=== PATIENT | female | born 1950 | race Caucasian/White ===

== ENCOUNTER 2022-12-17 07:43 | Outpatient (OUT) | payer MEDICARE, SELFPAY ==
[2022-12-17 08:16] LABS: Basophils Absolute Auto 0.1 10^3/uL (0.0-0.1); Basophils Percent Auto 2.2 % (0.2-2.0); Bilirubin Urine LARGE (NEGATIVE); Blood Urine NEGATIVE (NEGATIVE); Clarity Urine CLEAR (CLEAR); Color Urine LT. YELLOW (YELLOW); Eosinophils Absolute Auto 0.1 10^3/uL (0.0-0.7); Eosinophils Percent Auto 2.6 % (0.9-7.0); Glucose Urine UA NEGATIVE (NEGATIVE); Hematocrit 40.5 % (36.0-48.0); Hemoglobin 13.2 g/dL (12.0-16.0); Immature Granulocytes Abs Auto 0.02 10^3/uL (0.00-0.03); Immature Granulocytes Pct Auto 0.4 % (0.0-0.5); Ketones Urine NEGATIVE (NEGATIVE); Leukocyte Esterase Urine LARGE (NEGATIVE); Lymphocytes Absolute Auto 1.1 10^3/uL (1.2-3.8); Lymphocytes Percent Auto 20.9 % (20.5-60.0); Mean Corpuscular HGB Conc 32.6 g/dL (29.9-35.2); Mean Corpuscular Hemoglobin 30.8 pg (26.7-34.0); Mean Corpuscular Volume 94.6 fL (81.0-99.0); Mean Platelet Volume 9.3 fL (9.5-13.5); Monocytes Absolute Auto 0.5 10^3/uL (0.3-0.8); Monocytes Percent Auto 10.1 % (1.7-12.0); Neutrophils Absolute Auto 3.2 10^3/uL (1.4-6.5); Neutrophils Percent Auto 63.8 % (43.0-75.0); Nitrite Urine NEGATIVE (NEGATIVE); Platelet Count 238 10^3/uL (150-450); Protein Urine TRACE mg/dL (NEG/TRACE); Red Blood Count 4.28 10^6/uL (4.20-5.40); Red Cell Distribution Width 12.9 % (11.0-15.0); Urobilinogen Urine 0.2 EU/dL (0.2-1.0)
[2022-12-17 08:19] LABS: Erythrocyte Sedimentation Rate 13 mm/hr (<=30)
[2022-12-17 08:33] LABS: Bacteria Urine SMALL #/HPF (NONE SEEN); Cast Seen? NONE SEEN #/LPF (NONE SEEN); Crystals Seen? None Seen #/HPF (None Seen); Mucus Urine NONE SEEN (NONE SEEN); RBC Urine 0-2 #/HPF (0-2); Squamous Epithelial Cell Urine FEW #/LPF (NONE/RARE); WBC Urine 20-50 #/HPF (NONE SEEN)
[2022-12-17 09:29] LABS: Alanine Aminotransferase 29 U/L (14-59); Albumin Level 3.7 g/dL (3.4-5.0); Alkaline Phosphatase 47 U/L (46-116); Anion Gap 10.6; Aspartate Amino Transferase 16 U/L (15-37); BUN Creatinine Ratio 15.9; Bilirubin Total 0.4 mg/dL (0.2-1.0); Calcium 8.8 mg/dL (8.5-10.1); Carbon Dioxide 31.5 mmol/L (21.0-32.0); Chloride 100 mmol/L (98-107); Estimated GFR (African America >60 (>=60); Estimated GFR (Non-African Ame >60 (>=60); Globulin 3.7 g/dL; Glucose 84 mg/dL (74-106); Magnesium 2.3 mg/dL (1.8-2.4); Phosphorus 3.9 mg/dL (2.6-4.7); Potassium 4.1 mmol/L (3.5-5.1); Sodium 138 mmol/L (136-145); Total Protein 7.4 g/dL (6.4-8.2)
[2022-12-18 05:07] LABS: Complement C3, Serum 129 mg/dL (82-167); Complement C4, Serum 23 mg/dL (12-38)
[2022-12-18 15:08] LABS: Complement, Total (CH50) >60 U/mL (>41)
== END 2022-12-17 07:44 ==
LOC: LAB 07:47
PROVIDERS: PCP Family Medicine; Visit Provider Internal Medicine Rheumatology
DX: M35.1 Other overlap syndromes (principal); M81.0 Age-related osteoporosis without current pathological fracture; Z79.899 Other long term (current) drug therapy
CPT/HCPCS: 36415; 80053; 81001; 83735; 84100; 85025; 85652; 86160; 86162

== ENCOUNTER 2023-04-27 08:02 | Outpatient (OUT) | payer MEDICARE, SELFPAY ==
[2023-04-27 08:31] LABS: Basophils Absolute Auto 0.1 10^3/uL (0.0-0.1); Basophils Percent Auto 1.9 % (0.2-2.0); Eosinophils Absolute Auto 0.1 10^3/uL (0.0-0.7); Eosinophils Percent Auto 1.9 % (0.9-7.0); Hematocrit 39.3 % (36.0-48.0); Hemoglobin 12.7 g/dL (12.0-16.0); Immature Granulocytes Abs Auto 0.02 10^3/uL (0.00-0.03); Immature Granulocytes Pct Auto 0.4 % (0.0-0.5); Lymphocytes Absolute Auto 0.9 10^3/uL (1.2-3.8); Lymphocytes Percent Auto 16.9 % (20.5-60.0); Mean Corpuscular HGB Conc 32.3 g/dL (29.9-35.2); Mean Corpuscular Hemoglobin 31.8 pg (26.7-34.0); Mean Corpuscular Volume 98.5 fL (81.0-99.0); Mean Platelet Volume 9.4 fL (9.5-13.5); Monocytes Absolute Auto 0.5 10^3/uL (0.3-0.8); Monocytes Percent Auto 9.7 % (1.7-12.0); Neutrophils Absolute Auto 3.7 10^3/uL (1.4-6.5); Neutrophils Percent Auto 69.2 % (43.0-75.0); Platelet Count 185 10^3/uL (150-450); Red Blood Count 3.99 10^6/uL (4.20-5.40); White Blood Count 5.4 10^3/uL (4.0-11.0)
[2023-04-27 08:34] LABS: Bilirubin Urine MODERATE (NEGATIVE); Blood Urine NEGATIVE (NEGATIVE); Clarity Urine CLEAR (CLEAR); Color Urine LT. YELLOW (YELLOW); Glucose Urine UA NEGATIVE (NEGATIVE); Ketones Urine NEGATIVE (NEGATIVE); Leukocyte Esterase Urine LARGE (NEGATIVE); Nitrite Urine NEGATIVE (NEGATIVE); Protein Urine NEGATIVE (NEG/TRACE); Specific Gravity Urine 1.015 (1.005-1.025); Urobilinogen Urine 0.2 EU/dL (0.2-1.0)
[2023-04-27 08:49] LABS: Bacteria Urine SMALL #/HPF (NONE SEEN); Cast Seen? NONE SEEN #/LPF (NONE SEEN); Crystals Seen? None Seen #/HPF (None Seen); Mucus Urine TRACE (NONE SEEN); Squamous Epithelial Cell Urine MODERATE #/LPF (NONE/RARE); WBC Urine 20-50 #/HPF (NONE SEEN)
[2023-04-27 08:50] LABS: Urine Culture Indicated ALREADY ORDERED
[2023-04-27 09:11] LABS: Alanine Aminotransferase 22 U/L (14-59); Albumin Globulin Ratio 1.2; Albumin Level 3.8 g/dL (3.4-5.0); Alkaline Phosphatase 36 U/L (46-116); Anion Gap 13.8; Aspartate Amino Transferase 21 U/L (15-37); BUN Creatinine Ratio 14.3; Bilirubin Total 0.4 mg/dL (0.2-1.0); Calcium 8.7 mg/dL (8.5-10.1); Carbon Dioxide 27.5 mmol/L (21.0-32.0); Chloride 104 mmol/L (98-107); Chol HDL Ratio 2.3; Cholesterol 163 mg/dL (<=200); Estimated GFR (African America >60 (>=60); Estimated GFR (Non-African Ame >60 (>=60); Globulin 3.2 g/dL; Glucose 82 mg/dL (74-106); HDL Cholesterol 71 mg/dL (40-60); Potassium 4.3 mmol/L (3.5-5.1); Sodium 141 mmol/L (136-145); Thyroid Stimulating Hormone 2.224 uIU/mL (0.358-3.740); Triglycerides 67 mg/dL (<=150); VLDL CHOLESTEROL 13.4 mg/dL
== END 2023-04-27 08:03 | disposition home or self-care (01) ==
LOC: LAB 08:04
PROVIDERS: PCP Family Medicine; Visit Provider Family Medicine
DX: E78.5 Hyperlipidemia, unspecified (principal); Z79.899 Other long term (current) drug therapy; R63.5 Abnormal weight gain; R31.9 Hematuria, unspecified
CPT/HCPCS: 36415; 80053; 80061; 81001; 84443; 85025; 87086

== ENCOUNTER 2023-05-05 10:05 | Outpatient (OUT) | payer MEDICARE, SELFPAY | END 2023-05-05 10:06 | disposition home or self-care (01) | PROVIDERS: PCP Family Medicine; Visit Provider Family Medicine | DX: D75.89 Other specified diseases of blood and blood-forming organs (principal) | CPT/HCPCS: 36415; 82607; 82746 ==

== ENCOUNTER 2023-05-12 09:28 | Outpatient (OUT) | payer MEDICARE, SELFPAY ==
--- NOTE | 2023-05-12 09:33 | US_ITS ---
[address] [address] Patient Name: GENNA GALVAN MRN: [id number] date: 1950 Sex: F Assigned Patient Location: Current Patient Location: Accession/Order Number: [id number] Exam Date: 05/12/2023 10:00 Report Date: 05/12/2023 10:53 At the request of: CASANDRA CHOPRA Procedure: US renal BI EXAMINATION: US renal BI HISTORY: Hematuria R31.9 COMPARISON: No relevant comparison available. TECHNIQUE: Ultrasound examination was performed of the bladder. FINDINGS: Right Kidney: Normal in size, contour and echotexture. No solid cortical mass, hydronephrosis or obstructing nephrolithiasis. The cortex measures 1.0 cm. Height: 4.9 cm Length: 10.8 cm Width: 4.0 cm Left Kidney: Normal in size, contour and echotexture. No solid cortical mass, hydronephrosis or obstructing nephrolithiasis. The cortex measures 1.2 cm Height: 5.2 cm Length: 9.7 cm Width: 4.7 cm Urinary bladder measures 2.6 x 8.9 x 6.3 cm with volume of 409 mL US/US renal BI IMPRESSION: No explanation for the patient's hematuria Electronically authenticated by: CASANDRA DURAN Date: 05/12/2023 10:53
[2023-05-12 10:34] LABS: Bilirubin Urine SMALL (NEGATIVE); Blood Urine NEGATIVE (NEGATIVE); Clarity Urine CLEAR (CLEAR); Color Urine LT. YELLOW (YELLOW); Glucose Urine UA NEGATIVE (NEGATIVE); Ketones Urine NEGATIVE (NEGATIVE); Leukocyte Esterase Urine MODERATE (NEGATIVE); Nitrite Urine NEGATIVE (NEGATIVE); Protein Urine NEGATIVE (NEG/TRACE); Urobilinogen Urine 0.2 EU/dL (0.2-1.0)
[2023-05-12 11:15] LABS: RBC Urine 0-2 #/HPF (0-2)
[2023-05-12 11:16] LABS: Bacteria Urine SMALL #/HPF (NONE SEEN); Cast Seen? NONE SEEN #/LPF (NONE SEEN); Crystals Seen? None Seen #/HPF (None Seen); Mucus Urine NONE SEEN (NONE SEEN); Squamous Epithelial Cell Urine MODERATE #/LPF (NONE/RARE)
== END 2023-05-12 09:29 | disposition home or self-care (01) ==
LOC: US 09:28
PROVIDERS: PCP Family Medicine; Visit Provider Family Medicine
DX: R31.9 Hematuria, unspecified (principal)
CPT/HCPCS: 76775; 81001

== ENCOUNTER 2023-06-03 08:11 | Outpatient (OUT) | payer MEDICARE, SELFPAY ==
[2023-06-03 08:41] LABS: Basophils Absolute Auto 0.1 10^3/uL (0.0-0.1); Basophils Percent Auto 1.4 % (0.2-2.0); Eosinophils Absolute Auto 0.1 10^3/uL (0.0-0.7); Eosinophils Percent Auto 1.6 % (0.9-7.0); Hematocrit 38.7 % (36.0-48.0); Hemoglobin 12.1 g/dL (12.0-16.0); Immature Granulocytes Abs Auto 0.01 10^3/uL (0.00-0.03); Immature Granulocytes Pct Auto 0.2 % (0.0-0.5); Lymphocytes Percent Auto 20.1 % (20.5-60.0); Mean Corpuscular HGB Conc 31.3 g/dL (29.9-35.2); Mean Corpuscular Hemoglobin 30.9 pg (26.7-34.0); Mean Platelet Volume 9.1 fL (9.5-13.5); Monocytes Absolute Auto 0.5 10^3/uL (0.3-0.8); Monocytes Percent Auto 10.3 % (1.7-12.0); Neutrophils Absolute Auto 3.3 10^3/uL (1.4-6.5); Neutrophils Percent Auto 66.4 % (43.0-75.0); Platelet Count 204 10^3/uL (150-450); Red Blood Count 3.91 10^6/uL (4.20-5.40)
[2023-06-03 08:42] LABS: Bilirubin Urine MODERATE (NEGATIVE); Blood Urine NEGATIVE (NEGATIVE); Clarity Urine CLEAR (CLEAR); Color Urine LT. YELLOW (YELLOW); Glucose Urine UA NEGATIVE (NEGATIVE); Ketones Urine NEGATIVE (NEGATIVE); Leukocyte Esterase Urine SMALL (NEGATIVE); Nitrite Urine NEGATIVE (NEGATIVE); Protein Urine NEGATIVE (NEG/TRACE); Urobilinogen Urine 0.2 EU/dL (0.2-1.0)
[2023-06-03 08:51] LABS: Bacteria Urine TRACE #/HPF (NONE SEEN); Mucus Urine NONE SEEN (NONE SEEN); RBC Urine 0-2 #/HPF (0-2); Squamous Epithelial Cell Urine MODERATE #/LPF (NONE/RARE)
[2023-06-03 08:52] LABS: Cast Seen? NONE SEEN #/LPF (NONE SEEN); Crystals Seen? None Seen #/HPF (None Seen)
[2023-06-03 09:04] LABS: Erythrocyte Sedimentation Rate 18 mm/hr (<=30)
[2023-06-03 09:35] LABS: Alanine Aminotransferase 29 U/L (14-59); Albumin Globulin Ratio 1.2; Albumin Level 3.7 g/dL (3.4-5.0); Alkaline Phosphatase 36 U/L (46-116); Anion Gap 14.1; Aspartate Amino Transferase 21 U/L (15-37); BUN Creatinine Ratio 14.8; Bilirubin Total 0.4 mg/dL (0.2-1.0); Calcium 8.4 mg/dL (8.5-10.1); Carbon Dioxide 27.2 mmol/L (21.0-32.0); Chloride 102 mmol/L (98-107); Estimated GFR (African America >60 (>=60); Estimated GFR (Non-African Ame >60 (>=60); Globulin 3.2 g/dL; Glucose 79 mg/dL (74-106); Potassium 4.3 mmol/L (3.5-5.1); Sodium 139 mmol/L (136-145); Total Protein 6.9 g/dL (6.4-8.2)
== END 2023-06-03 08:12 | disposition home or self-care (01) ==
LOC: LAB 08:14
PROVIDERS: PCP Family Medicine; Visit Provider Registered Nurse
DX: M35.1 Other overlap syndromes (principal); M15.0 Primary generalized (osteo)arthritis; M81.0 Age-related osteoporosis without current pathological fracture; Z79.899 Other long term (current) drug therapy
CPT/HCPCS: 36415; 80053; 81001; 85025; 85652

== ENCOUNTER 2023-09-28 08:15 | Outpatient (OUT) | payer MEDICARE, SELFPAY ==
--- OUTSIDE RECORDS SUMMARY | 2023-09-28 08:19 | XMS_ITS | CCD ---
Author Organization [facility] Care Team Providers Care Cuprous Chloride Helper Name Role Phone Casandra Chopra Unavailable Casandra Chopra Primary Care Physician NAV, DR GUAJARDO Consulting Unavailable GIRVIN, DR GUAJARDO Attending Unavailable GIRVIN, DR GUAJARDO Admitting Unavailable GIRVIN, DR GUAJARDO Primary Care Unavailable WEST, DR CASANDRA Mccall Consulting Unavailable GIRVIN, DR GUAJARDO Primary Care Unavailable ZIEBER, DR MARII Chávez Consulting Unavailable NILL ., DR GUTIERREZ Attending Unavailable NILL ., DR GUTIERREZ Admitting Unavailable NILL ., DR GUTIERREZ Consulting Unavailable GIRVIN, DR GUAJARDO Primary Care Unavailable WEST, DR CASANDRA Mccall Consulting Unavailable BELL, DR COY Attending Unavailable BELL, DR COY Admitting Unavailable BELL, DR COY Consulting Unavailable GIRVIN, DR GUAJARDO Primary Care Unavailable BELL, DR COY Attending Unavailable BELL, DR COY Admitting Unavailable BELL, DR COY Consulting Unavailable SAMSA ., CHRISSY Attending Unavailable GIRVIN, DR GUAJARDO Primary Care Unavailable SAMSA ., CHRISSY Admitting Unavailable ZIEBER, DR MARII Chávez Consulting Unavailable SAMSA ., CHRISSY Consulting Unavailable GIRLAURA, DR GUAJARDO Primary Care Unavailable DANY, MARSHALL Attending Unavailable DANY, MARSHALL Admitting Unavailable MISC, DR CUMMNIS Consulting Unavailable GIRVIN, DR GUAJARDO Consulting Unavailable GIRVIN, DR GUAJARDO Attending Unavailable GIRVIN, DR GUAJARDO Admitting Unavailable GIRVIN, DR GUAJARDO Primary Care Unavailable GIRLAURA, DR GUAJARDO Consulting Unavailable GIRLAURA, DR GUAJARDO Attending Unavailable GIRLAURA, DR GUAJARDO Admitting Unavailable GIRVIN, DR GUAJARDO Primary Care Unavailable GIRVIN, DR GUAJARDO Consulting Unavailable GIRVIN, DR GUAJARDO Attending Unavailable GIRVIN, DR GUAJARDO Admitting Unavailable GIRVIN, DR GUAJARDO Primary Care Unavailable WEST, DR CASANDRA Mccall Consulting Unavailable BELL, DR COY Admitting Unavailable BELL, DR COY Consulting Unavailable BELL, DR COY Attending Unavailable Germaine Manuel Unavailable DO Josiah Samuel Primary Care Provider [phone] PITO Manuel Attending Provider AbhijitJessica schusterEva Unavailable Germaine Manuel Attending Unavailable Germaine Manuel Admitting Unavailable Josiah Samuel Primary Care Unavailable Allergies Allergy Classification Reported Allergen(s) Allergy Type Date of Onset Reaction(s) Facility (20 sources) buPROPion; Translations: [Bupropion] Drug Allergy Anxiety (finding) [employer] Other (19 sources) traMADol Drug Allergy constipation [employer] Other (1 source) Acetaminophen / HYDROcodone Drug Allergy [facility] Repository Medications Current Medications Medication Drug Class(es) Dates Sig (Normalized) Sig (Original) 8 hr acetaminophen 650 mg extended release oral tablet (16 sources) take 2 tablets by mouth every eight hours as needed Tylenol 8 Hour Arthritis Pain 650 MG 2 tablets as needed Orally every 8 hrs Active [id number] 200 actuat albuterol 0.09 mg/actuat metered dose inhaler (19 sources) beta2-Adrenergic Agonist take 1 puff(s) by inhalation every four hours as needed Ventolin HFA 90 MCG/ACT 1 puff as needed Inhalation every 4 hrs prn Active ascorbic acid 500 mg oral tablet (16 sources) Vitamin C take 1 tablet by mouth every twenty-four hours take 1 tablet by mouth every twe lve hours atorvastatin 10 mg oral tablet (20 sources) HMG-CoA Reductase Inhibitor Start: 01-30-2022 take 1 tablet by mouth once daily atorvastatin 10 mg Tab 10 mg = 1 tab(s), Oral, Daily, Refills(s) 0 Start Date: 01/30/22 Status: Ordered Calcium (2 sources) Phosphate Binder, Calcium Calcium Active Calcium 1200+D3 600-40-500 MG-MG-UNIT (10 sources) Calcium 1200+D3 600-40-500 MG-MG-UNIT 2 capsules bid Active Calcium Citrate / Vitamin D (1 source) Start: 01-30-2022 calcium-vitamin D Refill(s) 0 Start Date: 01/30/22 Status: Ordered cephalexin 500 mg oral capsule (3 sources) Cephalosporin Antibacterial Start: 02-02-2023 take 1 capsule by mouth every eight hours Cephalexin 500 MG 1 capsule Orally tid for 7 days Jan, Active cetirizine hydrochloride 10 mg oral tablet (7 sources) Histamine-1 Receptor Antagonist Start: 09-03-2020 take 1 tablet by mouth once daily ZyrTEC Allergy 10 MG 1 tablet Orally Once a day Sep, Active cranberry preparation 405 mg oral capsule (19 sources) Non-Standardized Food Allergenic Extract, Non-Standardized Plant Allergenic Extract Cranberry 405 MG as directed Orally Active Cranberry 405 MG as directed Orally Active etodolac 400 mg oral tablet (20 sources) Nonsteroidal Anti-inflammatory Drug Start: 06-20-2019 Etodolac 400 MG 1 tablet Orally bid - Dr. Bell Jun, Active furosemide 20 mg oral tablet (20 sources) Loop Diuretic Start: 01-30-2022 take 1 tablet by mouth once daily Lasix 20 mg Tab 20 mg = 1 tab(s), Oral, Daily, Refills(s) 0 Start Date: 01/30/22 Status: Ordered hydroxychloroquine sulfate 200 mg oral tablet (20 sources) Antimalarial, Antirheumatic Agent Start: 01-30-2022 hydroxychloroquine 200 mg Tab Refills(s) 0 Start Date: 01/30/22 Status: Ordered ibandronic acid 150 mg oral tablet (12 sources) Bisphosphonate Start: 05-05-2022 Ibandronate Sodium 150 MG 1 tablet 60 minutes before the first food, beverage or medicine of the day with plain water Orally once a month Apr, Active lidocaine 0.05 mg/mg medicated patch (9 sources) Antiarrhythmic, Amide Local Anesthetic Start: 12-29-2022 Lidocaine 5 % 1 patch remove after 12 hours Externally Once a day prn Dec, Active methylPREDNISolone 4 mg oral tablet (17 sources) Corticosteroid take 1 tablet by mouth every twelve hours Medrol 4 MG 1 tablet with food or milk Orally every 12 hrs prn Active nitrofurantoin, macrocrystals 25 mg / nitrofurantoin, monohydrate 75 mg oral capsule (2 sources) Nitrofuran Antibacterial Start: 04-21-2022 take 1 capsule by mouth twice daily at mealtime Macrobid 100 MG 1 capsule Orally bid with food for 7 day(s) Apr, Active pantoprazole 40 mg delayed release oral tablet (20 sources) Proton Pump Inhibitor Start: 01-30-2022 take 1 tablet by mouth once daily Pantoprazole [address] Tab 40 mg = 1 tab(s), Oral, Daily, Refills(s) 0 Start Date: 01/30/22 Status: Ordered terbinafine 250 mg oral tablet (1 source) Allylamine Antifungal Start: 04-24-2021 take 1 tablet by mouth once daily LamISIL 250 MG 1 tablet Orally Once a day for 90 days Apr, Active Trelegy Ellipta 100 mcg (19 sources) take 1 puff(s) by inhalation once daily Trelegy Ellipta 100 mcg 1 puff Inhalation Once a day Active Trelegy Ellipta 100 mcg-62.5 mcg-25 mcg inhalation powder (1 source) Start: 01-30-2022 take 1 puff(s) by inhalation once daily Trelegy Ellipta 100 mcg-62.5 mcg-25 mcg inhalation powder = 1 puff(s), Inhalation, Daily, Refills(s) 0 Start Date: 01/30/22 Status: Ordered Ventolin HFA 90 mcg/inh Aerosol (1 source) Start: 01-30-2022 take 1 puff(s) by inhalation every four hours Ventolin HFA 90 mcg/inh Aerosol 1 puff(s), Inhalation, q4hr Shortness of breath or wheezing, Refill(s) 0 Start Date: 01/30/22 Status: Ordered Vitamin B12 1000 MCG (4 sources) Start: 05-05-2023 take 1 tablet by mouth every other day Vitamin B12 1000 MCG 1 tablet Orally qod for 30 days Apr, Active Completed/Discontinued Medications Medication Drug Class(es) Dates Sig (Normalized) Sig (Original) Albuterol 90 MCG/ACT (2 sources) Albuterol 90 MCG/ACT as directed Inhalation Not-Taking benzonatate 100 mg oral capsule (2 sources) Non-narcotic Antitussive Start: 09-17-2020 take 2 capsules by mouth every eight hours Tessalon Perles 100 MG 2 capsules Orally Three times a day Sep, Not-Taking docusate sodium 100 mg oral capsule (19 sources) Start: 09-19-2019 take 1 capsule by mouth every twenty-four hours Colace 100 MG 1 capsule Orally Once a day prn Sep, Not-Taking ipratropium bromide 0.021 mg/actuat metered dose nasal spray (20 sources) Anticholinergic Start: 01-30-2022 ipratropium nasal 0.03% spray 2 spray(s), Nasal, BID, Refill(s) 0 Start Date: 01/30/22 Status: Ordered take 2 spray(s) nasal route twic e daily Ipratropium [place] 0.03 % 2 sprays in each nostril Nasally Twice a day Active Ketorolac (17 sources) Nonsteroidal Anti-inflammatory Drug, Cyclooxygenase Inhibitor Start: 11-21-2016 Toradol per 15 mg November, 2 cc potassium chloride 10 meq extended release oral capsule (20 sources) Start: 01-30-2022 take 1 capsule by mouth once daily potassium chloride 10 mEq Cap-ER 10 mEq = 1 cap(s), Oral, Daily, Refills(s) 0 Start Date: 01/30/22 Status: Ordered take 1 tablet by trevor th once daily at mealtime Potassium Chloride ER 10 MEQ TAKE 1 TABL ET BY MOUTH EVERYDAY WITH FOOD Active Problems Active Problems Problem Classification Problem Date Documented Da te Episodic/Chronic Administrative/social admission (20 sources) Dietary management surveillance; Translations: [Dietary counseling and surveillance] Episodic Anxiety disorders (19 sources) Mixed anxiety and depressive disorder; Translations: [Other specified anxiety disorders] Chronic Chronic obstructive pulmonary disease and bronchiectasis (20 sources) Chronic obstructive lung disease; Translations: [Chronic obstructive pulmonary disease, unspecified] Onset: 1 Resolved: 2 Chronic Disorders of lipid metabolism (20 sources) Hyperlipidemia; Translations: [Hyperlipidemia, unspecified] Onset: 1 Resolved: 2 Chronic Disorders of teeth and jaw (1 source) Jaw pain Episodic Esophageal disorders (1 source) Gastroesophageal reflux disease 02-04-2022 Chronic Fracture of upper limb (19 sources) Closed fracture of metacarpal bone; Translations: [Unspecified fracture of unspecified metacarpal bone, subsequent encounter for fracture with malunion] Episodic Gastritis and duodenitis (20 sources) Gastritis; Translations: [Gastritis, unspecified, without bleeding] Onset: 1 Resolved: 2 Episodic Genitourinary symptoms and ill-defined conditions (10 sources) Biliuria; Translations: [Hematuria, unspecified] Onset: 1 Resolved: 2 Episodic Headache; including migraine (19 sources) Migraine; Translations: [Migraine, unspecified, not intractable, without status migrainosus] Chronic Osteoarthritis (20 sources) Osteoarthritis; Translations: [Unspecified osteoarthritis, unspecified site] Onset: 3 02-04-2022 Chronic Osteoporosis (5 sources) Age-related osteoporosis without current pathological fracture; Translations: [AGE-REL OSTEOPOR W/O CURR PATH FX] Onset: 2 Chronic Other aftercare (5 sources) Other retirement (current) drug therapy; Translations: [Other retirement (current) drug therapy Z79.899] Onset: 1 Resolved: 2 Episodic Other bone disease and musculoskeletal deformities (1 source) Osteopenia 01-30-2022 Episodic Other ear and sense organ disorders (19 sources) Impacted cerumen; Translations: [Impacted cerumen, unspecified ear] Episodic Other ear and sense organ disorders (2 sources) Impacted cerumen, right ear Onset: 2 Resolved: 2 Episodic Other ear and sense organ disorders (2 sources) Impacted cerumen, unspecified ear Onset: 2 Resolved: 2 Episodic Other ear and sense organ disorders (1 source) Otalgia, left ear Episodic Other fractures (1 source) Compression fracture of thoracic spine 01-30-2022 Episodic Other fractures (12 sources) Pathological fracture of vertebra; Translations: [Collapsed vertebra, not elsewhere classified, thoracic region, initial encounter for fracture] Episodic Other fractures (2 sources) Collapsed vertebra, not elsewhere classified, thoracic region, initial encounter for fracture Episodic Other fractures (1 source) Wedge compression fracture of T7-T8 vertebra, initial encounter for closed fracture Episodic Other fractures (1 source) Wedge compression fracture of T7-T8 vertebra, subsequent encounter for fracture with routine healing Episodic Other gastrointestinal disorders (19 sources) Constipation; Translations: [Constipation, unspecified] Episodic Other hematologic conditions (5 sources) Other specified diseases of blood and blood-forming organs; Translations: [Macrocytosis] Chronic Other lower respiratory disease (19 sources) Interstitial lung disease; Translations: [Interstitial pulmonary disease, unspecified] Chronic Other lower respiratory disease (1 source) Other specified interstitial pulmonary diseases; Translations: [OTH SPEC INTERSTITIAL PULMONARY DZ] Onset: 3 Chronic Other nervous system disorders (12 sources) Carpal tunnel syndrome; Translations: [Carpal tunnel syndrome, bilateral upper limbs] Chronic Other nervous system disorders (9 sources) Unsteady when walking; Translations: [Unsteadiness on feet] Episodic Other nervous system disorders (1 source) Unsteadiness on feet Episodic Other non-traumatic joint disorders (4 sources) Pain in unspecified joint; Translations: [Polyarthralgia M25.50] Onset: 1 Resolved: 2 Episodic Other nutritional; endocrine; and metabolic disorders (19 sources) Obese class I; Translations: [Body mass index (BMI) 33.0-33.9, adult] Chronic Other nutritional; endocrine; and metabolic disorders (19 sources) Obesity; Translations: [Obesity, unspecified] Chronic Other nutritional; endocrine; and metabolic disorders (10 sources) Body mass index 30+ - obesity; Translations: [Obesity, unspecified] 02-04-2022 Chronic Other nutritional; endocrine; and metabolic disorders (1 source) Obesity, unspecified Chronic Other nutritional; endocrine; and metabolic disorders (5 sources) Abnormal weight gain; Translations: [Weight gain R63.5] Onset: 1 Resolved: 2 Episodic Other upper respiratory disease (19 sources) Rhinitis; Translations: [Chronic rhinitis] Chronic Other upper respiratory disease (1 source) Other specified disorders of nose and nasal sinuses Episodic Residual codes; unclassified (19 sources) Insomnia; Translations: [Insomnia, unspecified] Episodic Residual codes; unclassified (5 sources) Edema, unspecified; Translations: [Edema R60.9] Onset: 1 Resolved: 2 Episodic Residual codes; unclassified (1 source) Edema of lower extremity 02-04-2022 Episodic Screening and history of mental health and substance abuse codes (1 source) Encounter for screening for depression Episodic Spondylosis; intervertebral disc disorders; other back problems (20 sources) Acute low back pain; Translations: [Low back pain] Onset: 2 Episodic Substance-related disorders (20 sources) Nicotine dependence; Translations: [Nicotine dependence, unspecified, uncomplicated] Onset: 3 Chronic Systemic lupus erythematosus and connective tissue disorders (20 sources) Systemic sclerosis, unspecified; Translations: [Scleroderma] Onset: 2 Chronic Unclassified (1 source) Wedge compression fracture of T7-T8 vertebra, initial encounter for closed fracture; Translations: [Wedge compression fracture of T7-T8 vertebra, initial encounter for closed fracture] Onset: 3 Varicose veins of lower extremity (20 sources) Varicose veins of lower extremity; Translations: [Asymptomatic varicose veins of left lower extremity] 01-30-2022 Episodic Past or Other Problems Problem Classification Problem Date Documented Da te Episodic/Chronic Abdominal hernia (5 sources) Obstructed incisional ventral hernia; Translations: [Other and unspecified ventral hernia with obstruction, without gangrene] Onset: 02-04-2022 Episodic Abdominal pain (6 sources) Epigastric pain; Translations: [Epigastric pain] Onset: 02-04-2022 Episodic Other circulatory disease (1 source) Hypotension, unspecified Onset: 09-04-2021 Resolved: 09-04-2021 Episodic Other gastrointestinal disorders (2 sources) Constipation, unspecified; Translations: [Constipation K59.00] Onset: 04-10-2021 Resolved: 10-17-2021 Episodic Other screening for suspected conditions (not mental disorders or infectious disease) (5 sources) Encounter for screening mammogram for malignant neoplasm of breast; Translations: [ENC SCR MAMMO MALIG NEOPLASM BREAST] Onset: 10-17-2021 Resolved: 10-17-2021 Episodic Residual codes; unclassified (1 source) Family history of malignant neoplasm of ovary; Translations: [FAM HX MALIGNANT NEOPLASM OVARY] Onset: 04-15-2022 Episodic Urinary tract infections (4 sources) Cystitis, unspecified without hematuria; Translations: [CYSTITIS UNS WITHOUT HEMATURIA] Onset: 05-01-2022 Episodic Results Test Name Value Interpretation Reference Range Facility XR pre/post mri xrayon 02-19 XR pre/post mri xray [facility] [place] [address] [place] [address] MRI Report Signed Patient: Genna Herrera MR#: [id number] 52 : 1950 Acct:[id number] Age/Sex: 72 / F ADM Date: 02/19/23 Loc: MR Room: Type: [facility] Attending Dr: Germaine SHELDON Copies to: PITO Toure Ordering Provider: PITO Toure Date of Service: 02/19/23 MR/MR thoracic spine wo con: S22.060a ([id number]) XR/XR pre/post mri xray: S22.060a MR thoracic spine wo con, XR pre/post mri xray 02/19/2023 5:20 PM SIGNS AND SYMPTOMS: Compression fracture T8, mid back pain with numbness and coldness in bilateral upper extremities PROTOCOL: Frontal and lateral radiograph of the thoracic spine. Multiplanar multisequence MR images of the thoracic spine were obtained without IV contrast. COMPARISON: Chest CT from 12/02/2022. FINDINGS: Radiographs of the thoracic spine: There is a remote compression fracture of the T8 vertebral body. The bones are otherwise in anatomic alignment. There is preservation of vertebral body heights. There is mild disc height loss at T7-T8 and T8-T9. There is partial visualization of fusion hardware at C6-C7. Anterior and lateral osteophyte formation is noted in the lower thoracic and upper lumbar spine. Atherosclerotic changes are noted in the thoracic aorta. MRI of thoracic spine: The bones of the thoracic spine are in anatomic alignment. There is a remote compression deformity of the T8 vertebral body predominantly affecting the inferior endplate. There is mild to moderate disc height loss at T7-T8 and T8-T9. The marrow signal is within normal limits. No epidural or paraspinous fluid collection is appreciated. The visualized paraspinous soft tissues are within normal limits. At T1-T2: There is a normal disc, central canal, and neural foramen. At T2-T3: There is a normal disc, central canal, and neural foramen. At T3-T4: There is a normal disc, central canal, and neural foramen. At T4-T5: There is a normal disc, central canal, and neural foramen. At T5-T6: There is a normal disc, central canal, and neural foramen. At T6-T7: There is a tiny focal right central disc protrusion. There is minimal spinal canal narrowing without significant neural foraminal narrowing. At T7-T8: There is a central disc protrusion contributing to mild to moderate narrowing of spinal canal. There is mild bilateral neural foraminal narrowing. At T8-T9: There is a mild broad-based disc bulge with facet hypertrophy contributing to mild bilateral neural foraminal narrowing and minimal spinal canal narrowing. At T9-T10: There is a normal disc, central canal, and neural foramen. At T10-T11: Facet degenerative changes contribute to mild to moderate left and mild right neural foraminal narrowing. At T11-T12: There is a right central and subarticular focal disc protrusion contributing to mild spinal canal narrowing. There is facet edema bilaterally. There is mild spinal canal stenosis with mild right neural foraminal narrowing. At T12-L1: There is a normal disc, central canal, and neural foramen. MR/MR thoracic spine wo con IMPRESSION: There is a remote T8 compression fracture. No acute displaced fracture or significant marrow edema. Disc degenerative changes are noted at multiple levels. There is spinal canal and neural foraminal narrowing at multiple levels, as above. Impression dictated by: David Corley M.D.02/19/2023 8:19 PM Dictation Location: [place] [address] Transcribed By: [facility] 02/19/232018 Dictated By: David Corley II, MD 02/19/232008 Signed By: 02/19/232018 [facility] CT LUNG CANCER SCREENINGon 0 12-03-2022 CT LUNG CANCER SCREENING EXAMINATION: CT LUNG CANCER SCREENING HISTORY: Nicotine dependence COMPARISON: CT chest 11/29/2021 TECHNIQUE: Axial, Coronal, and Sagittal images were created without the administration of IV contrast material. Dose reduction techniques were achieved by using automated exposure control and/or adjustment of mA and/or kV according to patient size and/or use of iterative reconstruction technique. FINDINGS: LUNGS: Stable appearance of a few tiny nodules; some calcified and some noncalcified scattered within the lungs, largest is 4 mm within right middle lobe. Mild bronchiectasis and mild fibrosis within the peripheral lung bases. PLEURA: No mass, effusion, or pneumothorax. VASCULATURE: No abnormality. TAYO: No mass or pathologic adenopathy. MEDIASTINUM: No mass or pathologic adenopathy. CARDIAC: No enlargement, pericardial thickening, or significant calcification. AORTA: Mild prominence of ascending aorta which is at upper limits of normal in diameter, 4.0 cm. CHEST WALL: No mass or axillary adenopathy BONES: T8 vertebral body compression fracture with loss of up to 50% of its height. LIMITED ABDOMEN: No suspicious findings. Limited images of the upper abdomen. OTHER: Negative. IMPRESSION: 1. Lung-RADS 2- Benign Appearance or Behavior. Nodules with a very low likelihood of becoming a clinically active cancer due to size or lack of growth. Follow-up CT Chest in 1 year. 2. T8 vertebral body marked compression fracture; progressed since prior study, one year ago. Electronically authenticated by: MARII TURCIOS Date: 2022-12-03 08:20 Normal [facility] CBC AUTO DIFFon 10-22-2022 BASO # 0.1 103/ul Normal 0.0-0.1 [facility] Comment on above: Performed By: #### C BC #### [facility] [address] [place] [address] Dr. Renato Weller Basophils/100 WBC (Bld) 1.5 % Normal 0.2-2.0 [facility] Comment on above: Performed By: #### C BC #### [facility] [address] [place] [address] Dr. Renato Weller EO # 0.1 103/ul Normal 0.0-0.7 [facility] Comment on above: Performed By: #### C BC #### [facility] [address] [place] [address] Dr. Renato Weller Eosinophils/100 WBC (Bld) 1.4 % Normal 0.9-7.0 [facility] Comment on above: Performed By: #### C BC #### [facility] [address] [place] [address] Dr. Renato Weller Erythrocyte distribution width (RBC) [Ratio] 13.4 % Normal 11.0-15.0 [facility] Comment on above: Performed By: #### C BC #### [facility] [address] [place] [address] Dr. Renato Weller Hematocrit (Bld) [Volume fraction] 40.8 % Normal 36.0-48.0 [facility] Comment on above: Performed By: #### C BC #### [facility] [address] [place] [address] Dr. Renato Weller Hemoglobin (Bld) [Mass/Vol] 12.9 g/dL Normal 12.0-16.0 [facility] Comment on above: Performed By: #### C BC #### [facility] [address] [place] [address] Dr. Renato Weller IG # 0.01 10e3/ul Normal 0.00-0.03 [facility] Comment on above: Performed By: #### C BC #### [facility] [address] [place] [address] Dr. Renato Weller IG % 0.2 % Normal 0.0-0.5 [facility] Comment on above: Performed By: #### C BC #### [facility] [address] [place] [address] Dr. Renato Weller LYMPH # 1.0 103/ul Critically low 1.2-3.8 [facility] Comment on above: Performed By: #### C BC #### [facility] [address] [place] [address] Dr. Renato Weller Lymphocytes/100 WBC (Bld) 16.2 % Critically low 20.5-60.0 [facility] Comment on above: Performed By: #### C BC #### [facility] [address] [place] [address] Dr. Renato Weller MANUAL DIFF REQ NO Normal [facility] Comment on above: Performed By: #### C BC #### [facility] [address] [place] [address] Dr. Renato Weller MCH (RBC) [Entitic mass] 30.2 pg Normal 26.7-34.0 [facility] Comment on above: Performed By: #### C BC #### [facility] [address] [place] [address] Dr. Renato Weller MCHC (RBC) [Mass/Vol] 31.6 g/dL Normal 29.9-35.2 [facility] Comment on above: Performed By: #### C BC #### [facility] [address] [place] [address] Dr. Renato Weller MCV (RBC) [Entitic vol] 95.6 fL Normal 81.0-99.0 [facility] Comment on above: Performed By: #### C BC #### [facility] [address] [place] [address] Dr. Renato Weller MONO # 0.5 103/ul Normal 0.3-0.8 [facility] Comment on above: Performed By: #### C BC #### [facility] [address] [place] [address] Dr. Renato Weller Monocytes/100 WBC (Bld) 8.2 % Normal 1.7-12.0 [facility] Comment on above: Performed By: #### C BC #### [facility] [address] [place] [address] Dr. Renato Weller NEUT # 4.3 103/ul Normal 1.4-6.5 [facility] Comment on above: Performed By: #### C BC #### [facility] [address] [place] [address] Dr. Renato Weller Neutrophils/100 WBC (Bld) 72.5 % Normal 43.0-75.0 [facility] Comment on above: Performed By: #### C BC #### [facility] [address] [place] [address] Dr. Renato Weller Platelet mean volume (Bld) [Entitic vol] 9.4 fL Critically low 9.5-13.5 [facility] Comment on above: Performed By: #### C BC #### [facility] [address] [place] [address] Dr. Renato Weller PLT 206 103/ul Normal 150-450 [facility] Comment on above: Performed By: #### C BC #### [facility] [address] [place] [address] Dr. Renato Weller RBC 4.27 106/ul Normal 4.20-5.40 [facility] Comment on above: Performed By: #### C BC #### [facility] [address] [place] [address] Dr. Renato Weller WBC 5.9 103/ul Normal 4.0-11.0 [facility] Comment on above: Performed By: #### C BC #### [facility] [address] [address] [address] Renato Weller LIPID PROFILEon 10-22-2022 CHOL-HDL RATIO NORM SEE BELOW Normal [facility] Comment on above: Result Comment: 3.3 - 4.4 LOW RISK 4.4 - 7.1 AVERAGE RISK 7.1 - 11.0 MODERATE RISK >11.0 HIGH RISK Performed By: #### L IPID, CMP #### [facility] [address] [address] [address] Renato Weller Cholesterol [Mass/Vol] 162 mg/dL Normal <=200 [facility] Comment on above: Performed By: #### L IPID, CMP #### [facility] [address] [address] [address] Renato Weller Cholesterol in HDL [Mass/Vol] 69 mg/dL Critically high 40-60 [facility] Comment on above: Performed By: #### L IPID, CMP #### [facility] [address] [address] [address] Renato Weller Cholesterol in LDL [Mass/Vol] 81.8 mg/dL Normal [facility] Comment on above: Performed By: #### L IPID, CMP #### [facility] [address] [address] [address] Renato Weller Cholesterol.total/C holesterol in HDL [Mass ratio] 2.3 {ratio} Normal [facility] Comment on above: Performed By: #### L IPID, CMP #### [facility] [address] [address] [address] Renato Weller HDL NORMAL > or = 60 mg/dl - LO W CARDIOVASCULAR RISK <40 mg/dl - HIGH CARDIOVASCULAR RISK Normal [facility] Comment on above: Performed By: #### L IPID, CMP #### [facility] [address] [address] [address] Renato Weller LDL CALC NORMAL SEE BELOW Normal [facility] Comment on above: Result Comment: <100 mg/dl OPTIMAL 100 - 129 mg/dl NEAR OR ABOVE OPTIMAL 130 - 159 mg/dl BORDERLINE HIGH 160 - 189 mg/dl HIGH >190 mg/dl VERY HIGH Performed By: #### L IPID, CMP #### [facility] [address] [place] [address] Dr. Renato Weller Triglyceride [Mass/Vol] 56 mg/dL Normal <=150 [facility] Comment on above: Performed By: #### L IPID, CMP #### [facility] [address] [place] [address] Dr. Renato Weller VLDL CALC 11.2 mg/dL Normal [facility] Comment on above: Performed By: #### L IPID, CMP #### [facility] [address] [place] [address] Dr. Renato Weller PROF 14(COMP METB)on 023 Albumin [Mass/Vol] 3.7 g/dL Normal 3.4-5.0 [facility] Comment on above: Performed By: #### L IPID, CMP #### [facility] [address] [place] [address] Dr. Renato Weller Albumin/Globulin [Mass ratio] 1.1 {ratio} Normal [facility] Comment on above: Performed By: #### L IPID, CMP #### [facility] [address] [place] [address] Dr. Renato Weller ALP [Catalytic activity/Vol] 36 U/L Critically low 46-116 [facility] Comment on above: Performed By: #### L IPID, CMP #### [facility] [address] [place] [address] Dr. Renato Weller ALT [Catalytic activity/Vol] 24 U/L Normal 14-59 [facility] Comment on above: Performed By: #### L IPID, CMP #### [facility] [address] [place] [address] Dr. Renato Weller Anion gap [Moles/Vol] 12.2 mmol/L Normal [facility] Comment on above: Performed By: #### L IPID, CMP #### [facility] [address] [place] [address] Dr. Renato Weller AST [Catalytic activity/Vol] 18 U/L Normal 15-37 [facility] Comment on above: Performed By: #### L IPID, CMP #### [facility] [address] [address] [address] Renato Weller Bilirubin [Mass/Vol] 0.3 mg/dL Normal 0.2-1.0 [facility] Comment on above: Performed By: #### L IPID, CMP #### [facility] [address] [place] [address] Dr. Renato Weller Calcium [Mass/Vol] 9.0 mg/dL Normal 8.5-10.1 [facility] Comment on above: Performed By: #### L IPID, CMP #### [facility] [address] [place] [address] Dr. Renato Weller Chloride [Moles/Vol] 102 mmol/L Normal 98-107 [facility] Comment on above: Performed By: #### L IPID, CMP #### [facility] [address] [place] [address] Dr. Renato Weller CO2 [Moles/Vol] 29.1 mmol/L Normal 21.0-32.0 [facility] Comment on above: Performed By: #### L IPID, CMP #### [facility] [address] [place] [address] Dr. Renato Weller Creatinine [Mass/Vol] 0.83 mg/dL Normal 0.55-1.02 [facility] Comment on above: Performed By: #### L IPID, CMP #### [facility] [address] [place] [address] Dr. Renato Weller EGFR-AF SURINAMESE >60 Normal >=60 [facility] Comment on above: Performed By: #### L IPID, CMP #### [facility] [address] [place] [address] Dr. Renato Weller EGFR-NON AF SURINAMESE >60 Normal >=60 [facility] Comment on above: Performed By: #### L IPID, CMP #### [facility] [address] [place] [address] Dr. Renato Weller Globulin (S) [Mass/Vol] 3.5 g/dL Normal [facility] Comment on above: Performed By: #### L IPID, CMP #### [facility] [address] [address] [address] Renato Weller Glucose [Mass/Vol] 85 mg/dL Normal 74-[address] [facility] Comment on above: Performed By: #### L IPID, CMP #### [facility] [address] [place] [address] Dr. Renato Weller Potassium [Moles/Vol] 4.3 mmol/L Normal 3.5-5.1 [facility] Comment on above: Performed By: #### L IPID, CMP #### [facility] [address] [place] [address] Dr. Renato Weller Protein [Mass/Vol] 7.2 g/dL Normal 6.4-8.2 [facility] Comment on above: Performed By: #### L IPID, CMP #### [facility] [address] [place] [address] Dr. Renato Weller Sodium [Moles/Vol] 139 mmol/L Normal 136-[address] [facility] Comment on above: Performed By: #### L IPID, CMP #### [facility] [address] [place] [address] Dr. Renato Weller Urea nitrogen [Mass/Vol] 14.0 mg/dL Normal 7.0-18.0 [facility] Comment on above: Performed By: #### L IPID, CMP #### [facility] [address] [place] [address] Dr. Renato Weller Urea nitrogen/Creatinine [Mass ratio] 16.9 mg/mg Normal [facility] Comment on above: Performed By: #### L IPID, CMP #### [facility] [address] [place] [address] Dr. Renato Weller C3 and C4 COMPLEMENTon 08-19 Complement C3, Serum 110 mg/dL Normal 82-167 [facility] Comment on above: Performed By: #### U AMIC #### [facility] [address] [place] [address] Dr. Renato Weller Complement C4, Serum 20 mg/dL Normal 12-38 [facility] Comment on above: Performed By: #### U AMIC #### [facility] [address] [place] [address] Dr. Renato Weller COMPLEMENT TOTAL (CH50)on Complement, Total (CH50) >60 Normal >41 [facility] Comment on above: Result Comment: Age Male Female 1 - 30 days Not Estab. Not Estab. 31 days - 6 months >32 >20 7 months - 17 years >39 >39 >17 years >41 >41 NOTE: The adult ( >17 years ) reference interval range is used to flag abnormals on this report. If the patient is 17 years old or younger, use the table above to determine out of range values. Performed By: #### C H50T #### [facility] [address] [place] [address] Dr. Renato Weller CBC AUTO DIFFon 08-18-2022 BASO # 0.1 103/ul Normal 0.0-0.1 [facility] Comment on above: Performed By: #### C H50T #### [facility] [address] [place] [address] Dr. Renato Weller Basophils/100 WBC (Bld) 1.8 % Normal 0.2-2.0 [facility] Comment on above: Performed By: #### C H50T #### [facility] [address] [place] [address] Dr. Renato Weller EO # 0.1 103/ul Normal 0.0-0.7 [facility] Comment on above: Performed By: #### C H50T #### [facility] [address] [place] [address] Dr. Renato Weller Eosinophils/100 WBC (Bld) 1.8 % Normal 0.9-7.0 [facility] Comment on above: Performed By: #### C H50T #### [facility] [address] [place] [address] Dr. Renato Weller Erythrocyte distribution width (RBC) [Ratio] 13.2 % Normal 11.0-15.0 [facility] Comment on above: Performed By: #### C H50T #### [facility] [address] [place] [address] Dr. Renato Weller Hematocrit (Bld) [Volume fraction] 39.9 % Normal 36.0-48.0 [facility] Comment on above: Performed By: #### C H50T #### [facility] [address] [place] [address] Dr. Renato Weller Hemoglobin (Bld) [Mass/Vol] 13.2 g/dL Normal 12.0-16.0 [facility] Comment on above: Performed By: #### C H50T #### [facility] [address] [place] [address] Dr. Renato Weller IG # 0.02 10e3/ul Normal 0.00-0.03 [facility] Comment on above: Performed By: #### C H50T #### [facility] [address] [place] [address] Dr. Renato Weller IG % 0.4 % Normal 0.0-0.5 [facility] Comment on above: Performed By: #### C H50T #### [facility] [address] [place] [address] Dr. Renato Weller LYMPH # 1.1 103/ul Critically low 1.2-3.8 [facility] Comment on above: Performed By: #### C H50T #### [facility] [address] [place] [address] Dr. Renato Weller Lymphocytes/100 WBC (Bld) 18.4 % Critically low 20.5-60.0 [facility] Comment on above: Performed By: #### C H50T #### [facility] [address] [place] [address] Dr. Renato Weller MANUAL DIFF REQ NO Normal [facility] Comment on above: Performed By: #### C H50T #### [facility] [address] [place] [address] Dr. Renato Weller MCH (RBC) [Entitic mass] 31.0 pg Normal 26.7-34.0 [facility] Comment on above: Performed By: #### C H50T #### [facility] [address] [place] [address] Dr. Renato Weller MCHC (RBC) [Mass/Vol] 33.1 g/dL Normal 29.9-35.2 [facility] Comment on above: Performed By: #### C H50T #### [facility] [address] [place] [address] Dr. Renato Weller MCV (RBC) [Entitic vol] 93.7 fL Normal 81.0-99.0 [facility] Comment on above: Performed By: #### C H50T #### [facility] [address] [place] [address] Dr. Renato Weller MONO # 0.5 103/ul Normal 0.3-0.8 [facility] Comment on above: Performed By: #### C H50T #### [facility] [address] [place] [address] Dr. Renato Weller Monocytes/100 WBC (Bld) 8.6 % Normal 1.7-12.0 [facility] Comment on above: Performed By: #### C H50T #### [facility] [address] [place] [address] Dr. Renato Weller NEUT # 3.9 103/ul Normal 1.4-6.5 [facility] Comment on above: Performed By: #### C H50T #### [facility] [address] [place] [address] Dr. Renato Weller Neutrophils/100 WBC (Bld) 69.0 % Normal 43.0-75.0 [facility] Comment on above: Performed By: #### C H50T #### [facility] [address] [place] [address] Dr. Renato Weller Platelet mean volume (Bld) [Entitic vol] 9.4 fL Critically low 9.5-13.5 [facility] Comment on above: Performed By: #### C H50T #### [facility] [address] [place] [address] Dr. Renato Weller PLT 191 103/ul Normal 150-450 [facility] Comment on above: Performed By: #### C H50T #### [facility] [address] [place] [address] Dr. Renato Weller RBC 4.26 106/ul Normal 4.20-5.40 [facility] Comment on above: Performed By: #### C H50T #### [facility] [address] [place] [address] Dr. Renato Weller WBC 5.7 103/ul Normal 4.0-11.0 [facility] Comment on above: Performed By: #### C H50T #### [facility] [address] [place] [address] Dr. Renato Weller MAGNESIUMon 08-18-2022 Magnesium [Mass/Vol] 2.1 mg/dL Normal 1.8-2.4 [facility] Comment on above: Performed By: #### L IPID, CMP #### [facility] [address] [place] [address] Dr. Renato Weller PHOSPHORUSon 08-18-2022 Phosphate [Mass/Vol] 3.5 mg/dL Normal 2.6-4.7 [facility] Comment on above: Performed By: #### L IPID, CMP #### [facility] [address] [place] [address] Dr. Renato Weller PROF 14(COMP METB)on 023 Albumin [Mass/Vol] 3.7 g/dL Normal 3.4-5.0 [facility] Comment on above: Performed By: #### L IPID, CMP #### [facility] [address] [place] [address] Dr. Renato Weller Albumin/Globulin [Mass ratio] 1.2 {ratio} Normal [facility] Comment on above: Performed By: #### L IPID, CMP #### [facility] [address] [place] [address] Dr. Renato Weller ALP [Catalytic activity/Vol] 37 U/L Critically low 46-116 [facility] Comment on above: Performed By: #### L IPID, CMP #### [facility] [address] [address] [address] Renato Weller ALT [Catalytic activity/Vol] 18 U/L Normal 14-59 [facility] Comment on above: Performed By: #### L IPID, CMP #### [facility] [address] [address] [address] Renato Weller Anion gap [Moles/Vol] 13.5 mmol/L Normal [facility] Comment on above: Performed By: #### L IPID, CMP #### [facility] [address] [address] [address] Renato Weller AST [Catalytic activity/Vol] 19 U/L Normal 15-37 [facility] Comment on above: Performed By: #### L IPID, CMP #### [facility] [address] [address] [address] Renato Weller Bilirubin [Mass/Vol] 0.4 mg/dL Normal 0.2-1.0 [facility] Comment on above: Performed By: #### L IPID, CMP #### [facility] [address] [address] [address] Renato Weller Calcium [Mass/Vol] 8.7 mg/dL Normal 8.5-10.1 [facility] Comment on above: Performed By: #### L IPID, CMP #### [facility] [address] [address] [address] Renato Weller Chloride [Moles/Vol] 104 mmol/L Normal 98-107 [facility] Comment on above: Performed By: #### L IPID, CMP #### [facility] [address] [address] [address] Renato Weller CO2 [Moles/Vol] 27.8 mmol/L Normal 21.0-32.0 [facility] Comment on above: Performed By: #### L IPID, CMP #### [facility] [address] [address] [address] Renato Weller Creatinine [Mass/Vol] 0.67 mg/dL Normal 0.55-1.02 [facility] Comment on above: Performed By: #### L IPID, CMP #### [facility] [address] [address] [address] Renato Weller EGFR-AF SURINAMESE >60 Normal >=60 [facility] Comment on above: Performed By: #### L IPID, CMP #### [facility] [address] [address] [address] Renato Weller EGFR-NON AF SURINAMESE >60 Normal >=60 [facility] Comment on above: Performed By: #### L IPID, CMP #### [facility] [address] [address] [address] Renato Weller Globulin (S) [Mass/Vol] 3.0 g/dL Normal [facility] Comment on above: Performed By: #### L IPID, CMP #### [facility] [address] [address] [address] Renato Weller Glucose [Mass/Vol] 87 mg/dL Normal 74-106 [facility] Comment on above: Performed By: #### L IPID, CMP #### [facility] [address] [address] [address] Renato Weller Potassium [Moles/Vol] 4.3 mmol/L Normal 3.5-5.1 [facility] Comment on above: Performed By: #### L IPID, CMP #### [facility] [address] [address] [address] Renato Weller Protein [Mass/Vol] 6.7 g/dL Normal 6.4-8.[address] [facility] Comment on above: Performed By: #### L IPID, CMP #### [facility] [address] [address] [address] Renato Weller Sodium [Moles/Vol] 141 mmol/L Normal 136-[address] [facility] Comment on above: Performed By: #### L IPID, CMP #### [facility] [address] [address] [address] Renato Weller Urea nitrogen [Mass/Vol] 11.0 mg/dL Normal 7.0-18.0 [facility] Comment on above: Performed By: #### L IPID, CMP #### [facility] [address] [address] [address] Renato Weller Urea nitrogen/Creatinine [Mass ratio] 16.4 mg/mg Normal [facility] Comment on above: Performed By: #### L IPID, CMP #### [facility] [address] [address] [address] Renato Weller SED RATE WESTERGRENon 2022 SED RATE 43 mm/hr Critically high <=30 [facility] Comment on above: Performed By: #### S EDR #### [facility] [address] [address] [address] Renato Weller UA RANDOM W/MICROSCOPICon BACTERIA NONE SEEN Normal NONE SEEN [facility] Comment on above: Performed By: #### U AMIC #### [facility] [address] [place] [address] Dr. Renato Weller Bilirubin Ql (U) LARGE Abnormal NEGATIVE [facility] Comment on above: Performed By: #### U AMIC #### [facility] [address] [place] [address] Dr. Renato Weller CAST NONE SEEN Normal NONE SEEN [facility] Comment on above: Performed By: #### U AMIC #### [facility] [address] [address] [address] Renato Weller Clarity (U) CLEAR Normal CLEAR [facility] Comment on above: Performed By: #### U AMIC #### [facility] [address] [place] [address] Dr. Renato Weller Color (U) LT. YELLOW Normal YELLOW [facility] Comment on above: Performed By: #### U AMIC #### [facility] [address] [place] [address] Dr. Renato Weller Crystals LM Nom (Urine sed) NONE SEEN Normal NONE SEEN [facility] Comment on above: Performed By: #### U AMIC #### [facility] [address] [place] [address] Dr. Renato Weller Epithelial cells LM Ql (Urine sed) NONE SEEN Normal NONE SEEN /RARE [facility] Comment on above: Performed By: #### U AMIC #### [facility] [address] [address] [address] Renato Weller Glucose Ql (U) Negative Normal NEGATIVE [facility] Comment on above: Performed By: #### U AMIC #### [facility] [address] [address] [address] Renato Weller Hemoglobin Ql (U) Negative Normal NEGATIVE [facility] Comment on above: Performed By: #### U AMIC #### [facility] [address] [address] [address] Renato Weller Ketones Ql (U) Negative Normal NEGATIVE [facility] Comment on above: Performed By: #### U AMIC #### [facility] [address] [address] [address] Renato Weller LEUKOCYTES SMALL Abnormal NEGATIVE [facility] Comment on above: Performed By: #### U AMIC #### [facility] [address] [address] [address] Renato Weller MUCOUS NONE SEEN Normal NONE SEEN [facility] Comment on above: Performed By: #### U AMIC #### [facility] [address] [address] [address] Renato Weller Nitrite Ql (U) Negative Normal NEGATIVE [facility] Comment on above: Performed By: #### U AMIC #### [facility] [address] [address] [address] Renato Weller pH (U) 7.0 [pH] Normal 5-9 [facility] Comment on above: Performed By: #### U AMIC #### [facility] [address] [address] [address] Renato Weller RBC 0-2 Normal 0-2 [facility] Comment on above: Performed By: #### U AMIC #### [facility] [address] [address] [address] Renato Weller SPEC GRAVITY 1.010 Normal 1.005-<=1.025 [facility] Comment on above: Performed By: #### U AMIC #### [facility] [address] [place] [place] [address] Dr. Renato Weller UA PROTEIN Negative Normal NEGATIVE/ TRACE [facility] Comment on above: Performed By: #### U AMIC #### [facility] [address] [address] [address] Renato Weller Urobilinogen Qn (U) 0.2 {Paul'U}/dL Normal 0.2 - 1. 0 [facility] Comment on above: Performed By: #### U AMIC #### [facility] [address] [place] [address] Dr. Renato Weller WBC NONE SEEN Normal NONE SEEN [facility] Comment on above: Performed By: #### U AMIC #### [facility] [address] [place] [address] Dr. Renato Weller CULTURE URINEon 05-12-2022 CULTURE URINE Culture Observations : LIGHT GROWTH OF MIXED GENITAL ROMEL. NO POTENTIAL PATHOGENS SEEN. Normal [facility] Comment on above: Performed By: #### U AMIC #### [facility] [address] [place] [address] Dr. Renato Weller UA RANDOM W/MICROSCOPICon BACTERIA TRACE Abnormal NONE SEEN [facility] Comment on above: Performed By: #### C H50T #### [facility] [address] [place] [address] Dr. Renato Weller Bilirubin Ql (U) LARGE Abnormal NEGATIVE [facility] Comment on above: Performed By: #### C H50T #### [facility] [address] [place] [address] Dr. Renato Weller CAST NONE SEEN Normal NONE SEEN [facility] Comment on above: Performed By: #### C H50T #### [facility] [address] [place] [address] Dr. Renato Weller Clarity (U) CLEAR Normal CLEAR [facility] Comment on above: Performed By: #### C H50T #### [facility] [address] [place] [address] Dr. Renato Weller Color (U) LT. YELLOW Normal YELLOW [facility] Comment on above: Performed By: #### C H50T #### [facility] [address] [address] [address] Renato Weller Crystals LM Nom (Urine sed) NONE SEEN Normal NONE SEEN [facility] Comment on above: Performed By: #### C H50T #### [facility] [address] [address] [address] Renato Weller Epithelial cells LM Ql (Urine sed) MODERATE Abnormal NONE SEEN /RARE [facility] Comment on above: Performed By: #### C H50T #### [facility] [address] [address] [address] Renato Weller Glucose Ql (U) Negative Normal NEGATIVE [facility] Comment on above: Performed By: #### C H50T #### [facility] [address] [place] [address] Dr. Renato Weller Hemoglobin Ql (U) Negative Normal NEGATIVE [facility] Comment on above: Performed By: #### C H50T #### [facility] [address] [address] [address] Renato Weller Ketones Ql (U) Negative Normal NEGATIVE [facility] Comment on above: Performed By: #### C H50T #### [facility] [address] [place] [address] Dr. Renato Weller LEUKOCYTES SMALL Abnormal NEGATIVE [facility] Comment on above: Performed By: #### C H50T #### [facility] [address] [address] [address] Renato Weller MUCOUS NONE SEEN Normal NONE SEEN [facility] Comment on above: Performed By: #### C H50T #### [facility] [address] [address] [address] Renato Weller Nitrite Ql (U) Negative Normal NEGATIVE [facility] Comment on above: Performed By: #### C H50T #### [facility] [address] [place] [address] Dr. Renato Weller pH (U) 6.0 [pH] Normal 5-9 [facility] Comment on above: Performed By: #### C H50T #### [facility] [address] [address] [address] Renato Weller RBC 0-2 Normal 0-2 [facility] Comment on above: Performed By: #### C H50T #### [facility] [address] [place] [address] Dr. Renato Weller SPEC GRAVITY 1.025 Normal 1.005-<=1.025 [facility] Comment on above: Performed By: #### C H50T #### [facility] [address] [place] [address] Dr. Renato Weller UA PROTEIN Negative Normal NEGATIVE/ TRACE [facility] Comment on above: Performed By: #### C H50T #### [facility] [address] [place] [address] Dr. Renato Weller Urobilinogen Qn (U) 0.2 {Paul'U}/dL Normal 0.2 - 1. 0 [facility] Comment on above: Performed By: #### C H50T #### [facility] [address] [place] [address] Dr. Renato Weller WBC 5-10 Abnormal NONE SEEN [facility] Comment on above: Performed By: #### C H50T #### [facility] [address] [place] [address] Dr. Renato Weller CULTURE URINEon 05-02-2022 CULTURE URINE Culture Observations : MODERATE GROWTH OF MIXED GENITAL ROMEL. PLEASE RESUBMIT CLEAN CATCH MID-STREAM URINE IF CLINICALLY INDICATED. Normal [facility] Comment on above: Performed By: #### U AMIC #### [facility] [address] [place] [address] Dr. Renato Weller UA RANDOM W/MICROSCOPICon BACTERIA LARGE Abnormal NONE SEEN [facility] Comment on above: Performed By: #### U AMIC #### [facility] [address] [place] [address] Dr. Renato Weller Bilirubin Ql (U) MODERATE Abnormal NEGATIVE [facility] Comment on above: Performed By: #### U AMIC #### [facility] [address] [address] [address] Renato Weller CAST NONE SEEN Normal NONE SEEN [facility] Comment on above: Performed By: #### U AMIC #### [facility] [address] [address] [address] Renaot Weller Clarity (U) CLEAR Normal CLEAR [facility] Comment on above: Performed By: #### U AMIC #### [facility] [address] [address] [address] Renato Weller Color (U) LT. YELLOW Normal YELLOW [facility] Comment on above: Performed By: #### U AMIC #### [facility] [address] [address] [address] Renato Weller Crystals LM Nom (Urine sed) NONE SEEN Normal NONE SEEN [facility] Comment on above: Performed By: #### U AMIC #### [facility] [address] [place] [address] Dr. Renato Weller Epithelial cells LM Ql (Urine sed) MODERATE Abnormal NONE SEEN /RARE [facility] Comment on above: Performed By: #### U AMIC #### [facility] [address] [address] [address] Renato Weller Glucose Ql (U) Negative Normal NEGATIVE [facility] Comment on above: Performed By: #### U AMIC #### [facility] [address] [place] [address] Dr. Renato Weller Hemoglobin Ql (U) LARGE Abnormal NEGATIVE [facility] Comment on above: Performed By: #### U AMIC #### [facility] [address] [address] [address] Renato Weller Ketones Ql (U) Negative Normal NEGATIVE [facility] Comment on above: Performed By: #### U AMIC #### [facility] [address] [address] [address] Renato Weller LEUKOCYTES LARGE Abnormal NEGATIVE [facility] Comment on above: Performed By: #### U AMIC #### [facility] [address] [address] [address] Renato Weller MUCOUS NONE SEEN Normal NONE SEEN [facility] Comment on above: Performed By: #### U AMIC #### [facility] [address] [address] [address] Renato Weller Nitrite Ql (U) Negative Normal NEGATIVE [facility] Comment on above: Performed By: #### U AMIC #### [facility] [address] [address] [address] Renato Weller pH (U) 6.0 [pH] Normal 5-9 [facility] Comment on above: Performed By: #### U AMIC #### [facility] [address] [address] [address] Renato Weller RBC 5-10 Abnormal 0-2 [facility] Comment on above: Performed By: #### U AMIC #### [facility] [address] [place] [address] Dr. Renato Weller SPEC GRAVITY 1.020 Normal 1.005-<=1.025 [facility] Comment on above: Performed By: #### U AMIC #### [facility] [address] [place] [address] Dr. Renato Weller UA PROTEIN Negative Normal NEGATIVE/ TRACE [facility] Comment on above: Performed By: #### U AMIC #### [facility] [address] [place] [address] Dr. Renato Weller Urobilinogen Qn (U) 0.2 {Paul'U}/dL Normal 0.2 - 1. 0 [facility] Comment on above: Performed By: #### U AMIC #### [facility] [address] [place] [address] Dr. Renato Weller WBC 10-20 Abnormal NONE SEEN [facility] Comment on above: Performed By: #### U AMIC #### [facility] [address] [place] [address] Dr. Renato Weller XR CSPINE MIN 4 VIEWSon 10- XR CSPINE MIN 4 VIEWS EXAMINATION: XR CSPINE MIN 4 VIEWS HISTORY: Neck pain COMPARISON: No relevant comparison available. FINDINGS: BONES: Reversal of cervical lordosis. Moderate diffuse degenerative spondylosis and facet osteoarthropathy. Anterior fusion C6-C7 DISC SPACES: Space narrowing with endplate sclerosis PARASPINOUS: Negative. No paraspinous abnormality is seen. OTHER: Negative. IMPRESSION: Moderate degenerative changes with anterior fusion Electronically authenticated by: CASANDRA DURAN Date: 2022-05-01 17:38 Normal [facility] C3 and C4 COMPLEMENTon 04-15 Complement C3, Serum 115 mg/dL Normal 82-167 [facility] Comment on above: Performed By: #### C H50T #### [facility] [address] [place] [address] Dr. Renato Weller Complement C4, Serum 23 mg/dL Normal 12-38 [facility] Comment on above: Performed By: #### C H50T #### [facility] [address] [place] [address] Dr. Renato Weller COMPLEMENT TOTAL (CH50)on Complement, Total (CH50) >60 Normal >41 [facility] Comment on above: Result Comment: Age Male Female 1 - 30 days Not Estab. Not Estab. 31 days - 6 months >32 >20 7 months - 17 years >39 >39 >17 years >41 >41 NOTE: The adult ( >17 years ) reference interval range is used to flag abnormals on this report. If the patient is 17 years old or younger, use the table above to determine out of range values. Performed By: #### C H50T #### [facility] [address] [place] [address] Dr. Renato Weller CBC AUTO DIFFon 04-14-2022 BASO # 0.1 103/ul Normal 0.0-0.1 [facility] Comment on above: Performed By: #### C H50T #### [facility] [address] [place] [address] Dr. Renato Weller Basophils/100 WBC (Bld) 1.6 % Normal 0.2-2.0 [facility] Comment on above: Performed By: #### C H50T #### [facility] [address] [place] [address] Dr. Renato Weller EO # 0.1 103/ul Normal 0.0-0.7 [facility] Comment on above: Performed By: #### C H50T #### [facility] [address] [place] [address] Dr. Renato Weller Eosinophils/100 WBC (Bld) 2.0 % Normal 0.9-7.0 [facility] Comment on above: Performed By: #### C H50T #### [facility] [address] [place] [address] Dr. Renato Weller Erythrocyte distribution width (RBC) [Ratio] 12.8 % Normal 11.0-15.0 [facility] Comment on above: Performed By: #### C H50T #### [facility] [address] [place] [address] Dr. Renato Weller Hematocrit (Bld) [Volume fraction] 40.0 % Normal 36.0-48.0 [facility] Comment on above: Performed By: #### C H50T #### [facility] [address] [place] [address] Dr. Renato Weller Hemoglobin (Bld) [Mass/Vol] 12.8 g/dL Normal 12.0-16.0 [facility] Comment on above: Performed By: #### C H50T #### [facility] [address] [place] [address] Dr. Renato Weller IG # 0.02 10e3/ul Normal 0.00-0.03 [facility] Comment on above: Performed By: #### C H50T #### [facility] [address] [place] [address] Dr. Renato Weller IG % 0.4 % Normal 0.0-0.5 [facility] Comment on above: Performed By: #### C H50T #### [facility] [address] [place] [address] Dr. Renato Weller LYMPH # 1.1 103/ul Critically low 1.2-3.8 [facility] Comment on above: Performed By: #### C H50T #### [facility] [address] [place] [address] Dr. Renato Weller Lymphocytes/100 WBC (Bld) 22.2 % Normal 20.5-60.0 [facility] Comment on above: Performed By: #### C H50T #### [facility] [address] [place] [address] Dr. Renato Weller MANUAL DIFF REQ NO Normal [facility] Comment on above: Performed By: #### C H50T #### [facility] [address] [place] [address] Dr. Renato Weller MCH (RBC) [Entitic mass] 31.3 pg Normal 26.7-34.0 [facility] Comment on above: Performed By: #### C H50T #### [facility] [address] [place] [address] Dr. Renato Weller MCHC (RBC) [Mass/Vol] 32.0 g/dL Normal 29.9-35.2 [facility] Comment on above: Performed By: #### C H50T #### [facility] [address] [place] [address] Dr. Renato Weller MCV (RBC) [Entitic vol] 97.8 fL Normal 81.0-99.0 [facility] Comment on above: Performed By: #### C H50T #### [facility] [address] [place] [address] Dr. Renato Weller MONO # 0.5 103/ul Normal 0.3-0.8 [facility] Comment on above: Performed By: #### C H50T #### [facility] [address] [place] [address] Dr. Renato Weller Monocytes/100 WBC (Bld) 9.8 % Normal 1.7-12.0 [facility] Comment on above: Performed By: #### C H50T #### [facility] [address] [place] [address] Dr. Renato Weller NEUT # 3.2 103/ul Normal 1.4-6.5 [facility] Comment on above: Performed By: #### C H50T #### [facility] [address] [place] [address] Dr. Renato Weller Neutrophils/100 WBC (Bld) 64.0 % Normal 43.0-75.0 [facility] Comment on above: Performed By: #### C H50T #### [facility] [address] [address] [address] Renato Weller Platelet mean volume (Bld) [Entitic vol] 9.3 fL Critically low 9.5-13.5 [facility] Comment on above: Performed By: #### C H50T #### [facility] [address] [address] [address] Renato Weller PLT 181 103/ul Normal 150-450 [facility] Comment on above: Performed By: #### C H50T #### [facility] [address] [address] [address] Renato Weller RBC 4.09 106/ul Critically low 4.20-5.40 [facility] Comment on above: Performed By: #### C H50T #### [facility] [address] [address] [address] Renato Weller WBC 5.0 103/ul Normal 4.0-11.0 [facility] Comment on above: Performed By: #### C H50T #### [facility] [address] [address] [address] Renato Weller LIPID PROFILEon 04-14-2022 CHOL-HDL RATIO NORM SEE BELOW Normal [facility] Comment on above: Result Comment: 3.3 - 4.4 LOW RISK 4.4 - 7.1 AVERAGE RISK 7.1 - 11.0 MODERATE RISK >11.0 HIGH RISK Performed By: #### T SH, LIPID #### [facility] [address] [address] [address] Renato Weller Cholesterol [Mass/Vol] 176 mg/dL Normal <=200 [facility] Comment on above: Performed By: #### T SH, LIPID #### [facility] [address] [address] [address] Renato Weller Cholesterol in HDL [Mass/Vol] 71 mg/dL Critically high 40-60 [facility] Comment on above: Performed By: #### T SH, LIPID #### [facility] [address] [address] [address] Renato Weller Cholesterol in LDL [Mass/Vol] 94.0 mg/dL Normal [facility] Comment on above: Performed By: #### T SH, LIPID #### [facility] [address] [address] [address] Renato Weller Cholesterol.total/C holesterol in HDL [Mass ratio] 2.5 {ratio} Normal [facility] Comment on above: Performed By: #### T SH, LIPID #### [facility] [address] [address] [address] Renato Weller HDL NORMAL > or = 60 mg/dl - LO W CARDIOVASCULAR RISK <40 mg/dl - HIGH CARDIOVASCULAR RISK Normal [facility] Comment on above: Performed By: #### T SH, LIPID #### [facility] [address] [address] [address] Renato Weller LDL CALC NORMAL SEE BELOW Normal [facility] Comment on above: Result Comment: <100 mg/dl OPTIMAL 100 - 129 mg/dl NEAR OR ABOVE OPTIMAL 130 - 159 mg/dl BORDERLINE HIGH 160 - 189 mg/dl HIGH >190 mg/dl VERY HIGH Performed By: #### T SH, LIPID #### [facility] [address] [address] [address] Renato Weller Triglyceride [Mass/Vol] 55 mg/dL Normal <=150 [facility] Comment on above: Performed By: #### T SH, LIPID #### [facility] [address] [place] [address] Dr. Renato Weller VLDL CALC 11.0 mg/dL Normal [facility] Comment on above: Performed By: #### T SH, LIPID #### [facility] [address] [place] [address] Dr. Renato Weller MG MAMM SCREEN 3D HERBERT CADon 04-14-2022 MG MAMM SCREEN 3D HERBERT CAD Patient: GENNA HERRERA Exam Date: 04/14/2022 : 1950 Gender:F Ordering : DR CASANDRA CHOPRA Admission #: [id number] Family : Order #: [id number] CLICK HERE TO VIEW EXAM RADIOLOGY REPORT PROCEDURE: MAMMOGRAM SCREENING 3D BILATERAL CAD COMPARISON: MG MAMM SCREEN 3D HERBERT CAD, 11/22/2020. MG MAMM SCREEN HERBERT W CAD, 05/28/2018. INDICATIONS: Screening mammography Calculator Name NCI Breast Cancer Risk Assessment Tool 5 Year Breast Cancer Risk 1.70% Lifetime Breast Cancer Risk 5.20% Personal Breast Cancer No Personal Ovarian Cancer No Treatments None Family Cancers Aunt-maternal with ovarian cancer at age 42. LOCATION: [facility] BREAST COMPOSITION: Scattered areas fibroglandular density. FINDINGS: DIAGNOSTIC CATEGORY 1--NEGATIVE. NO CHANGE FROM COMPARISON ASSESSMENT. Scattered benign-appearing calcifications are present. RIGHT BREAST: No significant suspicious finding. LEFT BREAST: No significant suspicious finding. RECOMMENDATIONS: ROUTINE MAMMOGRAM AND CLINICAL EVALUATION IN 12 MONTHS. PLEASE NOTE: A NORMAL MAMMOGRAM DOES NOT EXCLUDE THE POSSIBILITY OF BREAST CANCER. A CLINICALLY SUSPICIOUS PALPABLE LUMP SHOULD BE BIOPSIED. Dictated by: Casandra Duran MD on 04/14/2022 at 09:29 Approved by: Casandra Duran MD on 04/14/2022 at 09:31 Normal [facility] PROF 14(COMP METB)on 022 Albumin [Mass/Vol] 3.8 g/dL Normal 3.4-5.0 [facility] Comment on above: Performed By: #### C MP #### [facility] [address] [place] [address] Dr. Renato Weller Albumin/Globulin [Mass ratio] 1.2 {ratio} Normal [facility] Comment on above: Performed By: #### C MP #### [facility] [address] [place] [address] Dr. Renato Weller ALP [Catalytic activity/Vol] 41 U/L Critically low 46-116 [facility] Comment on above: Performed By: #### C MP #### [facility] [address] [place] [address] Dr. Renato Weller ALT [Catalytic activity/Vol] 23 U/L Normal 14-59 [facility] Comment on above: Performed By: #### C MP #### [facility] [address] [place] [address] Dr. Renato Weller Anion gap [Moles/Vol] 10.0 mmol/L Normal [facility] Comment on above: Performed By: #### C MP #### [facility] [address] [place] [address] Dr. Renato Weller AST [Catalytic activity/Vol] 20 U/L Normal 15-37 [facility] Comment on above: Performed By: #### C MP #### [facility] [address] [place] [address] Dr. Renato Weller Bilirubin [Mass/Vol] 0.4 mg/dL Normal 0.2-1.0 [facility] Comment on above: Performed By: #### C MP #### [facility] [address] [place] [address] Dr. Renato Weller Calcium [Mass/Vol] 8.5 mg/dL Normal 8.5-10.1 [facility] Comment on above: Performed By: #### C MP #### [facility] [address] [place] [address] Dr. Renato Weller Chloride [Moles/Vol] 104 mmol/L Normal 98-107 [facility] Comment on above: Performed By: #### C MP #### [facility] [address] [place] [address] Dr. Renato Weller CO2 [Moles/Vol] 29.0 mmol/L Normal 21.0-32.0 [facility] Comment on above: Performed By: #### C MP #### [facility] [address] [place] [address] Dr. Renato Weller Creatinine [Mass/Vol] 0.69 mg/dL Normal 0.55-1.02 [facility] Comment on above: Performed By: #### C MP #### [facility] [address] [place] [address] Dr. Renato Weller EGFR-AF SURINAMESE >60 Normal >=60 [facility] Comment on above: Performed By: #### C MP #### [facility] [address] [place] [address] Dr. Renato Weller EGFR-NON AF SURINAMESE >60 Normal >=60 [facility] Comment on above: Performed By: #### C MP #### [facility] [address] [address] [address] Renato Weller Globulin (S) [Mass/Vol] 3.2 g/dL Normal [facility] Comment on above: Performed By: #### C MP #### [facility] [address] [address] [address] Renato Weller Glucose [Mass/Vol] 84 mg/dL Normal 74-106 [facility] Comment on above: Performed By: #### C MP #### [facility] [address] [address] [address] Renato Weller Potassium [Moles/Vol] 4.0 mmol/L Normal 3.5-5.1 [facility] Comment on above: Performed By: #### C MP #### [facility] [address] [place] [address] Dr. Renato Weller Protein [Mass/Vol] 7.0 g/dL Normal 6.4-8.2 [facility] Comment on above: Performed By: #### C MP #### [facility] [address] [place] [address] Dr. Renato Weller Sodium [Moles/Vol] 139 mmol/L Normal 136-145 [facility] Comment on above: Performed By: #### C MP #### [facility] [address] [place] [address] Dr. Renato Weller Urea nitrogen [Mass/Vol] 16.0 mg/dL Normal 7.0-18.0 [facility] Comment on above: Performed By: #### C MP #### [facility] [address] [place] [address] Dr. Renato Weller Urea nitrogen/Creatinine [Mass ratio] 23.2 mg/mg Normal [facility] Comment on above: Performed By: #### C MP #### [facility] [address] [place] [address] Dr. Renato Weller SED RATE [facility] 2021 SED RATE 16 mm/hr Normal <=30 [facility] Comment on above: Performed By: #### U AMIC #### [facility] [address] [place] [address] Dr. Renato Weller TSHon 04-14-2022 TSH 3.056 uIU/mL Normal 0.358-3.740 [facility] Comment on above: Performed By: #### T SH, LIPID #### [facility] [address] [place] [address] Dr. Renato Weller UA RANDOM W/MICROSCOPICon BACTERIA MODERATE Abnormal NONE SEEN [facility] Comment on above: Performed By: #### C H50T #### [facility] [address] [place] [address] Dr. Renato Weller Bilirubin Ql (U) LARGE Abnormal NEGATIVE [facility] Comment on above: Performed By: #### C H50T #### [facility] [address] [place] [address] Dr. Renato Weller CAST NONE SEEN Normal NONE SEEN [facility] Comment on above: Performed By: #### C H50T #### [facility] [address] [place] [address] Dr. Renato Weller Clarity (U) CLEAR Normal CLEAR [facility] Comment on above: Performed By: #### C H50T #### [facility] [address] [place] [address] Dr. Renato Weller Color (U) LT. YELLOW Normal YELLOW [facility] Comment on above: Performed By: #### C H50T #### [facility] [address] [place] [address] Dr. Renato Weller Crystals LM Nom (Urine sed) NONE SEEN Normal NONE SEEN [facility] Comment on above: Performed By: #### C H50T #### [facility] [address] [place] [address] Dr. Renato Weller Epithelial cells LM Ql (Urine sed) MANY Abnormal NONE SEEN /RARE [facility] Comment on above: Performed By: #### C H50T #### [facility] [address] [place] [address] Dr. Renato Weller Glucose Ql (U) Negative Normal NEGATIVE [facility] Comment on above: Performed By: #### C H50T #### [facility] [address] [address] [address] Renato Weller Hemoglobin Ql (U) Negative Normal NEGATIVE [facility] Comment on above: Performed By: #### C H50T #### [facility] [address] [place] [address] Dr. Renato Weller Ketones Ql (U) Negative Normal NEGATIVE [facility] Comment on above: Performed By: #### C H50T #### [facility] [address] [place] [address] Dr. Renato Weller LEUKOCYTES LARGE Abnormal NEGATIVE [facility] Comment on above: Performed By: #### C H50T #### [facility] [address] [place] [address] Dr. Renato Weller MUCOUS NONE SEEN Normal NONE SEEN [facility] Comment on above: Performed By: #### C H50T #### [facility] [address] [place] [address] Dr. Renato Weller Nitrite Ql (U) Negative Normal NEGATIVE [facility] Comment on above: Performed By: #### C H50T #### [facility] [address] [place] [address] Dr. Renato Weller pH (U) 6.0 [pH] Normal 5-9 [facility] Comment on above: Performed By: #### C H50T #### [facility] [address] [place] [address] Dr. Renato Weller RBC 2-5 Abnormal 0-2 [facility] Comment on above: Performed By: #### C H50T #### [facility] [address] [place] [address] Dr. Renato Weller SPEC GRAVITY 1.025 Normal 1.005-<=1.025 [facility] Comment on above: Performed By: #### C H50T #### [facility] [address] [place] [address] Dr. Renato Weller UA PROTEIN Negative Normal NEGATIVE/ TRACE [facility] Comment on above: Performed By: #### C H50T #### [facility] [address] [address] [address] Renato Weller Urobilinogen Qn (U) 0.2 {Paul'U}/dL Normal 0.2 - 1. 0 [facility] Comment on above: Performed By: #### C H50T #### [facility] [address] [address] [address] Renato Weller WBC 10-20 Abnormal NONE SEEN [facility] Comment on above: Performed By: #### C H50T #### [facility] [address] [address] [address] Renato Weller RAD - CT Reporton 02-26-2022 RAD - CT Report [id number] 0CD:127 Normal [facility] CT ABDOMEN WO CONTRASTon CT ABDOMEN WO CONTRAST EXAMINATION: CT ABDOMEN WO CONTRAST HISTORY: Epigastric pain , ventral hernia/lump COMPARISON: No relevant comparison available. TECHNIQUE: Axial, Coronal, and Sagittal images were created without IV contrast. Dose reduction techniques were achieved by using automated exposure control and/or adjustment of mA and/or kV according to patient size and/or use of iterative reconstruction technique. FINDINGS: LUNG BASES: Mild bronchiectasis. Small amount of atelectasis within posterior lung bases. LIVER: No enlargement, atrophy, abnormal density, or significant focal lesion. BILIARY: No visible dilatation or calcification. PANCREAS: No lesion, fluid collection, ductal dilatation, or atrophy. SPLEEN: No enlargement or focal lesion. ADRENALS: No mass or enlargement. KIDNEYS: No mass, obstruction, or calcification. BOWEL/MESENTERY: No visible mass, obstruction, or bowel wall thickening. AORTA/VASCULAR: No aneurysm or dissection. RETROPERITONEUM: No mass or adenopathy. ABDOMINAL WALL: Small midline ventral hernia midway between the xiphoid and umbilicus, 2.1 x 1.5 x 1.4 cm. This is a small anterior wall opening and contains a nonobstructing fat. BONES: No bony lesion or fracture. OTHER: Negative. IMPRESSION: 1. Small midline ventral hernia corresponding to patient's palpable lump (skin surface marker). This contains only fat, is nonstrangulated, but has a very small anterior wall opening. Electronically authenticated by: MARII TURCIOS Date: 2022-02-19 17:17 Normal [facility] Ambulatory Visit Summaryon 0 02-04-2022 Ambulatory Visit Summary GENNA HERRERA :1950 Visit Date:02/04/2022 Ambulatory Visit Instructions Your Diagnosis Epigastric pain Irreducible epigastric hernia Tests Performed CT Abdomen w/o Contrast -- Results Pending -- Please visit your patient portal for your results or contact your primary care physician. Your Care Team Attending Physician - Russell HARRELL MD Primary Care Physician - Casandra Chopra DO This Is Your Medications List Contact prescribing physician if questions or concerns albuterol (Ventolin HFA 90 mcg/inh Aerosol) atorvastatin (atorvastatin 10 mg Tab) calcium-vitamin D etodolac (etodolac 400 mg Tab) fluticasone/umeclidini um/vilanterol (Trelegy Ellipta 100 mcg-62.5 mcg-25 mcg inhalation powder) furosemide (Lasix 20 mg Tab) hydroxychloroquine (hydroxychloroquine 200 mg Tab) ipratropium nasal (ipratropium nasal 0.03% spray) pantoprazole (Pantoprazole [address] Tab) potassium chloride (potassium chloride 10 mEq Cap-ER) Procedures Performed Colonoscopy (06/09/2018), Arthroscopy of shoulder, Bunionectomy, Cataract extraction, Correction of hammer toe, History of cervical spine surgery, Release of tendon, DIXIE BSO - Total abdominal hysterectomy and bilateral salpingo-oophorectomy, Tubal ligation. Discharge Vitals Heart Rate (Peripheral) 72 Respiratory Rate 16 Blood Pressure 116/60 Height 160 cm Height 160.0 cm Weight 80 kg Weight 80.0 kg BMI 31.25 Medications What How Much When Instructions Unchanged albuterol (Ventolin HFA 90 mcg/ inh Aerosol) 1 Puffs Inhalation Every 4 hours as needed for Shortness of breath or wheezing Contact prescribing physician if questions or concerns Unchanged atorvastatin (atorvastatin 10 mg Tab) 1 Tablets By Mouth Every day Contact prescribing physician if questions or concerns Unchanged calcium-vitamin D Contact prescribing physician if questions or concerns Unchanged etodolac (etodolac 400 mg Tab) 1 Tablets By Mouth 3 times a day Contact prescribing physician if questions or concerns Unchanged fluticasone/ umeclidinium/ vilanterol (Trelegy Ellipta 100 mcg-62.5 mcg-25 mcg inhalation powder) 1 Puffs Inhalation Every day Contact prescribing physician if questions or concerns Unchanged furosemide (Lasix 20 mg Tab) 1 Tablets By Mouth Every day Contact prescribing physician if questions or concerns Unchanged hydroxychloroquine (hydroxychloroquine 200 mg Tab) Contact prescribing physician if questions or concerns Unchanged ipratropium nasal (ipratropium nasal 0.03% spray) 2 Sprays Nasal Inhalation 2 times a day Contact prescribing physician if questions or concerns Unchanged pantoprazole (Pantoprazole [address] Tab) 1 Tablets By Mouth Every day Contact prescribing physician if questions or concerns Unchanged potassium chloride (potassium chloride 10 mEq Cap-ER) 1 Capsules By Mouth Every day Contact prescribing physician if questions or concerns Allergies Wellbutrin (Anxiety) Problems Ongoing - Any problem that you are currently receiving treatment for. Arthritis BMI 31.0-31.9,adult Chronic obstructive pulmonary disease Epigastric pain GERD (gastroesophageal reflux disease) Irreducible epigastric hernia Lower extremity edema Osteopenia Thoracic compression fracture Varicose veins of legs Ventral hernia Normal [facility] Physician Referralon 022 Physician Referral [id number]:[id number] Normal [facility] XR DEXA BONE DENSITYon 12-30 XR DEXA BONE DENSITY EXAMINATION: XR DEXA BONE DENSITY, 12/30/2021 8:57 AM EDT HISTORY: Osteoporosis COMPARISON: None. TECHNIQUE: Dual-energy X-ray absorptiometry (DEXA) bone density study performed for the axial skeleton. FINDINGS: Bone mineral density of the lumbar spine L1-L4 measures 1.230 g/sq cm. This is likely elevated secondary to degenerative spondylosis. Normal bone mineral density. T score 0.4. Lowest bone mineral density right femoral neck measuring 0.698 g/sq cm. T score -2.4. WHO classification: Osteopenia IMPRESSION: Osteopenia bordering on osteoporosis. Moderate to high fracture risk Electronically authenticated by: CASANDRA DURAN Date: 2021-12-30 16:10 Normal [facility] C3 and C4 COMPLEMENTon 12-17 Complement C3, Serum 122 mg/dL Normal 82-167 [facility] Comment on above: Performed By: #### C SUITE #### [facility] [address] [place] [address] Dr. Renato Weller Complement C4, Serum 24 mg/dL Normal 12-38 [facility] Comment on above: Performed By: #### C SUITE #### [facility] [address] [place] [address] Dr. Renato Weller COMPLEMENT TOTAL (CH50)on Complement, Total (CH50) >60 Normal >41 [facility] Comment on above: Result Comment: Age Male Female 1 - 30 days Not Estab. Not Estab. 31 days - 6 months >32 >20 7 months - 17 years >39 >39 >17 years >41 >41 NOTE: The adult ( >17 years ) reference interval range is used to flag abnormals on this report. If the patient is 17 years old or younger, use the table above to determine out of range values. Performed By: #### C H50T #### [facility] [address] [place] [address] Dr. Renato Weller CBC AUTO DIFFon 12-16-2021 BASO # 0.1 103/ul Normal 0.0-0.1 [facility] Comment on above: Performed By: #### L IPID, CMP #### [facility] [address] [place] [address] Dr. Renato Weller Basophils/100 WBC (Bld) 1.8 % Normal 0.2-2.0 [facility] Comment on above: Performed By: #### L IPID, CMP #### [facility] [address] [place] [address] Dr. Renato Weller EO # 0.1 103/ul Normal 0.0-0.7 [facility] Comment on above: Performed By: #### L IPID, CMP #### [facility] [address] [place] [address] Dr. Renato Weller Eosinophils/100 WBC (Bld) 2.2 % Normal 0.9-7.0 [facility] Comment on above: Performed By: #### L IPID, CMP #### [facility] [address] [address] [address] Renato Weller Erythrocyte distribution width (RBC) [Ratio] 13.8 % Normal 11.0-15.0 [facility] Comment on above: Performed By: #### L IPID, CMP #### [facility] [address] [place] [address] Dr. Renato Weller Hematocrit (Bld) [Volume fraction] 39.4 % Normal 36.0-48.0 [facility] Comment on above: Performed By: #### L IPID, CMP #### [facility] [address] [place] [address] Dr. Renato Weller Hemoglobin (Bld) [Mass/Vol] 12.5 g/dL Normal 12.0-16.0 [facility] Comment on above: Performed By: #### L IPID, CMP #### [facility] [address] [place] [address] Dr. Renato Weller IG # 0.02 10e3/ul Normal 0.00-0.03 [facility] Comment on above: Performed By: #### L IPID, CMP #### [facility] [address] [place] [address] Dr. Renato Weller IG % 0.4 % Normal 0.0-0.5 [facility] Comment on above: Performed By: #### L IPID, CMP #### [facility] [address] [place] [address] Dr. Renato Weller LYMPH # 1.0 103/ul Critically low 1.2-3.8 [facility] Comment on above: Performed By: #### L IPID, CMP #### [facility] [address] [place] [address] Dr. Renato Weller Lymphocytes/100 WBC (Bld) 18.5 % Critically low 20.5-60.0 [facility] Comment on above: Performed By: #### L IPID, CMP #### [facility] [address] [place] [address] Dr. Renato Weller MANUAL DIFF REQ NO Normal [facility] Comment on above: Performed By: #### L IPID, CMP #### [facility] [address] [place] [address] Dr. Renato Weller MCH (RBC) [Entitic mass] 30.8 pg Normal 26.7-34.0 [facility] Comment on above: Performed By: #### L IPID, CMP #### [facility] [address] [place] [address] Dr. Renato Weller MCHC (RBC) [Mass/Vol] 31.7 g/dL Normal 29.9-35.2 [facility] Comment on above: Performed By: #### L IPID, CMP #### [facility] [address] [place] [address] Dr. Renato Weller MCV (RBC) [Entitic vol] 97.0 fL Normal 81.0-99.0 [facility] Comment on above: Performed By: #### L IPID, CMP #### [facility] [address] [place] [address] Dr. Renato Weller MONO # 0.5 103/ul Normal 0.3-0.8 [facility] Comment on above: Performed By: #### L IPID, CMP #### [facility] [address] [place] [address] Dr. Renato Weller Monocytes/100 WBC (Bld) 9.3 % Normal 1.7-12.0 [facility] Comment on above: Performed By: #### L IPID, CMP #### [facility] [address] [place] [address] Dr. Renato Weller NEUT # 3.8 103/ul Normal 1.4-6.5 [facility] Comment on above: Performed By: #### L IPID, CMP #### [facility] [address] [place] [address] Dr. Renato Weller Neutrophils/100 WBC (Bld) 67.8 % Normal 43.0-75.0 [facility] Comment on above: Performed By: #### L IPID, CMP #### [facility] [address] [place] [address] Dr. Renato Weller Platelet mean volume (Bld) [Entitic vol] 9.1 fL Critically low 9.5-13.5 [facility] Comment on above: Performed By: #### L IPID, CMP #### [facility] [address] [place] [address] Dr. Renato Weller PLT 240 103/ul Normal 150-450 [facility] Comment on above: Performed By: #### L IPID, CMP #### [facility] [address] [address] [address] Renato Weller RBC 4.06 106/ul Critically low 4.20-5.40 [facility] Comment on above: Performed By: #### L IPID, CMP #### [facility] [address] [place] [address] Dr. Renato Weller WBC 5.6 103/ul Normal 4.0-11.0 [facility] Comment on above: Performed By: #### L IPID, CMP #### [facility] [address] [place] [address] Dr. Renato Weller PROF 14(COMP METB)on 022 Albumin [Mass/Vol] 3.5 g/dL Normal 3.4-5.0 [facility] Comment on above: Performed By: #### C H50T #### [facility] [address] [place] [address] Dr. Renato Weller Albumin/Globulin [Mass ratio] 1.1 {ratio} Normal [facility] Comment on above: Performed By: #### C H50T #### [facility] [address] [place] [address] Dr. Renato Weller ALP [Catalytic activity/Vol] 51 U/L Normal 46-116 [facility] Comment on above: Performed By: #### C H50T #### [facility] [address] [place] [address] Dr. Renato Weller ALT [Catalytic activity/Vol] 22 U/L Normal 14-59 [facility] Comment on above: Performed By: #### C H50T #### [facility] [address] [place] [address] Dr. Renato Weller Anion gap [Moles/Vol] 13.0 mmol/L Normal [facility] Comment on above: Performed By: #### C H50T #### [facility] [address] [place] [address] Dr. Renato Weller AST [Catalytic activity/Vol] 17 U/L Normal 15-37 [facility] Comment on above: Performed By: #### C H50T #### [facility] [address] [place] [address] Dr. Renato Weller Bilirubin [Mass/Vol] 0.4 mg/dL Normal 0.2-1.0 [facility] Comment on above: Performed By: #### C H50T #### [facility] [address] [place] [address] Dr. Renato Weller Calcium [Mass/Vol] 8.3 mg/dL Critically low 8.5-10.1 [facility] Comment on above: Performed By: #### C H50T #### [facility] [address] [place] [address] Dr. Renato Weller Chloride [Moles/Vol] 104 mmol/L Normal 98-107 [facility] Comment on above: Performed By: #### C H50T #### [facility] [address] [place] [address] Dr. Renato Weller CO2 [Moles/Vol] 27.4 mmol/L Normal 21.0-32.0 [facility] Comment on above: Performed By: #### C H50T #### [facility] [address] [place] [address] Dr. Renato Weller Creatinine [Mass/Vol] 0.71 mg/dL Normal 0.55-1.02 [facility] Comment on above: Performed By: #### C H50T #### [facility] [address] [place] [address] Dr. Renato Weller EGFR-AF SURINAMESE >60 Normal >=60 [facility] Comment on above: Performed By: #### C H50T #### [facility] [address] [place] [address] Dr. Renato Weller EGFR-NON AF SURINAMESE >60 Normal >=60 [facility] Comment on above: Performed By: #### C H50T #### [facility] [address] [place] [address] Dr. Renato Weller Globulin (S) [Mass/Vol] 3.1 g/dL Normal [facility] Comment on above: Performed By: #### C H50T #### [facility] [address] [place] [address] Dr. Renato Weller Glucose [Mass/Vol] 85 mg/dL Normal 74-106 [facility] Comment on above: Performed By: #### C H50T #### [facility] [address] [place] [address] Dr. Renato Weller Potassium [Moles/Vol] 4.4 mmol/L Normal 3.5-5.1 [facility] Comment on above: Performed By: #### C H50T #### [facility] [address] [place] [address] Dr. Renato Weller Protein [Mass/Vol] 6.6 g/dL Normal 6.4-8.[address] [facility] Comment on above: Performed By: #### C H50T #### [facility] [address] [place] [address] Dr. Renato Weller Sodium [Moles/Vol] 140 mmol/L Normal 136-145 [facility] Comment on above: Performed By: #### C H50T #### [facility] [address] [place] [address] Dr. Renato Weller Urea nitrogen [Mass/Vol] 14.0 mg/dL Normal 7.0-18.0 [facility] Comment on above: Performed By: #### C H50T #### [facility] [address] [place] [address] Dr. Renato Weller Urea nitrogen/Creatinine [Mass ratio] 19.7 mg/mg Normal [facility] Comment on above: Performed By: #### C H50T #### [facility] [address] [place] [address] Dr. [facility] 6 mm/hr Normal <=30 [facility] Comment on above: Performed By: #### C H50T #### [facility] [address] [place] [address] Dr. Renato Weller UA RANDOM W/MICROSCOPICon BACTERIA TRACE Abnormal NONE SEEN [facility] Comment on above: Performed By: #### C H50T #### [facility] [address] [place] [address] Dr. Renato Weller Bilirubin Ql (U) MODERATE Abnormal NEGATIVE [facility] Comment on above: Performed By: #### C H50T #### [facility] [address] [place] [address] Dr. Renato Weller CAST NONE SEEN Normal NONE SEEN [facility] Comment on above: Performed By: #### C H50T #### [facility] [address] [place] [address] Dr. Renato Weller Clarity (U) CLEAR Normal CLEAR [facility] Comment on above: Performed By: #### C H50T #### [facility] [address] [place] [address] Dr. Renato Weller Color (U) LT. YELLOW Normal YELLOW [facility] Comment on above: Performed By: #### C H50T #### [facility] [address] [place] [address] Dr. Renato Weller Crystals LM Nom (Urine sed) NONE SEEN Normal NONE SEEN [facility] Comment on above: Performed By: #### C H50T #### [facility] [address] [place] [address] Dr. Renato Weller Epithelial cells LM Ql (Urine sed) MODERATE Abnormal NONE SEEN /RARE [facility] Comment on above: Performed By: #### C H50T #### [facility] [address] [place] [address] Dr. Renato Weller Glucose Ql (U) Negative Normal NEGATIVE [facility] Comment on above: Performed By: #### C H50T #### [facility] [address] [place], [place] [id number] Dr. Renato Weller Hemoglobin Ql (U) Negative Normal NEGATIVE [facility] Comment on above: Performed By: #### C H50T #### [facility] [address] [place] [address] Dr. Renato Weller Ketones Ql (U) Negative Normal NEGATIVE [facility] [facility] Comment on above: Performed By: #### C H50T #### [facility] [address] [place] [address] Dr. Renato Weller LEUKOCYTES SMALL Abnormal NEGATIVE [facility] Comment on above: Performed By: #### C H50T #### [facility] [address] [place] [address] Dr. Renato Weller MUCOUS NONE SEEN Normal NONE SEEN [facility] Comment on above: Performed By: #### C H50T #### [facility] [address] [place] [address] Dr. Renato Weller Nitrite Ql (U) Negative Normal NEGATIVE [facility] Comment on above: Performed By: #### C H50T #### [facility] [address] [place] [address] Dr. Renato Weller pH (U) 6.0 [pH] Normal 5-9 [facility] Comment on above: Performed By: #### C H50T #### [facility] [address] [place] [address] Dr. Renato Weller RBC NONE SEEN Abnormal 0-2 [facility] Comment on above: Performed By: #### C H50T #### [facility] [address] [place] [address] Dr. Renato Weller SPEC GRAVITY 1.010 Normal 1.005-<=1.025 [facility] Comment on above: Performed By: #### C H50T #### [facility] [address] [place] [address] Dr. Renato Weller UA PROTEIN Negative Normal NEGATIVE/ TRACE [facility] Comment on above: Performed By: #### C H50T #### [facility] [address] [place] [address] Dr. Renato Weller Urobilinogen Qn (U) 0.2 {Paul'U}/dL Normal 0.2 - 1. 0 [facility] Comment on above: Performed By: #### C H50T #### [facility] [address] [address] [address] Renato Weller WBC 2-5 Abnormal NONE SEEN [facility] Comment on above: Performed By: #### C H50T #### [facility] [address] [address] [address] Renato Weller C-Reactive Proteinon 019 CRP [Mass/Vol] 0.6 mg/dL Normal 0.0-1.0 [facility] Comment on above: Performed By: #### C BC, CK, CMP, CRP, T4F, TSH3, ESR #### [address] Complete Blood Count Auto Di ffon 04-06-2019 Basophils (Bld) [#/Vol] 0.1 10*3/uL Normal 0.0-0.2 [facility] Comment on above: Result Comment: PERF ORMED BY: [place] [address] PATHOLOGIST [employer] TEACHER ROSLYN TALLEY M.D. Performed By: #### C BC, CK, CMP, CRP, T4F, TSH3, ESR #### [address] Basophils/100 WBC (Bld) 1.0 % Normal . [facility] Comment on above: Performed By: #### C BC, CK, CMP, CRP, T4F, TSH3, ESR #### [place] [address] [place] Eosinophils (Bld) [#/Vol] 0.1 10*3/uL Normal 0.0-0.45 [facility] Comment on above: Performed By: #### C BC, CK, CMP, CRP, T4F, TSH3, ESR #### [place] [address] [place] Eosinophils/100 WBC (Bld) 0.9 % Normal . [facility] Comment on above: Performed By: #### C BC, CK, CMP, CRP, T4F, TSH3, ESR #### [address] Erythrocyte distribution width (RBC) [Ratio] 14.5 % Normal 11.9-15.3 [facility] Comment on above: Performed By: #### C BC, CK, CMP, CRP, T4F, TSH3, ESR #### [address] Hematocrit (Bld) [Volume fraction] 44.9 % Normal 34.0-46.4 [facility] Comment on above: Performed By: #### C BC, CK, CMP, CRP, T4F, TSH3, ESR #### [address] Hemoglobin (Bld) [Mass/Vol] 15.2 g/dL Normal 11.8-15.4 [facility] Comment on above: Performed By: #### C BC, CK, CMP, CRP, T4F, TSH3, ESR #### [address] Lymphocytes (Bld) [#/Vol] 1.1 10*3/uL Normal 1.00-4.8 [facility] Comment on above: Performed By: #### C BC, CK, CMP, CRP, T4F, TSH3, ESR #### [address] Lymphocytes/100 WBC (Bld) 14.6 % Normal . [facility] Comment on above: Performed By: #### C BC, CK, CMP, CRP, T4F, TSH3, ESR #### [address] MCH (RBC) [Entitic mass] 34.0 g/dL Normal 32.0-35.0 [facility] Comment on above: Performed By: #### C BC, CK, CMP, CRP, T4F, TSH3, ESR #### [address] MCH (RBC) [Entitic mass] 30.8 pg Normal 24.7-34.3 [facility] Comment on above: Performed By: #### C BC, CK, CMP, CRP, T4F, TSH3, ESR #### [facility] [address] MCV (RBC) [Entitic vol] 90.5 fL Normal 80-100 [facility] Comment on above: Performed By: #### C BC, CK, CMP, CRP, T4F, TSH3, ESR #### [facility] [address] Monocytes (Bld) [#/Vol] 0.5 10*3/uL Normal 0.0-0.8 [facility] Comment on above: Performed By: #### C BC, CK, CMP, CRP, T4F, TSH3, ESR #### [address] Monocytes/100 WBC (Bld) 7.0 % Normal . [facility] Comment on above: Performed By: #### C BC, CK, CMP, CRP, T4F, TSH3, ESR #### [address] Neutrophils (Bld) [#/Vol] 6.0 10*3/uL Normal 1.8-7.7 [facility] Comment on above: Performed By: #### C BC, CK, CMP, CRP, T4F, TSH3, ESR #### [address] Neutrophils/100 WBC (Bld) 76.5 % Normal . [facility] Comment on above: Performed By: #### C BC, CK, CMP, CRP, T4F, TSH3, ESR #### [place] [address] [place] Nucleated RBC/100 WBC (Bld) [Ratio] 0.2 % Normal 0-0.5 [facility] Comment on above: Performed By: #### C BC, CK, CMP, CRP, T4F, TSH3, ESR #### [address] Platelet mean volume (Bld) [Entitic vol] 8.6 fL Normal 6.3-10.7 [facility] Comment on above: Performed By: #### C BC, CK, CMP, CRP, T4F, TSH3, ESR #### [address] Platelets (Bld) [#/Vol] 218 10*3/uL Normal 150-450 [facility] Comment on above: Performed By: #### C BC, CK, CMP, CRP, T4F, TSH3, ESR #### [address] RBC (Bld) [#/Vol] 4.96 10*6/uL Normal 3.60-5.00 [facility] Comment on above: Performed By: #### C BC, CK, CMP, CRP, T4F, TSH3, ESR #### [address] WBC (Bld) [#/Vol] 7.8 10*3/uL Normal 4.5-11.0 [facility] Comment on above: Performed By: #### C BC, CK, CMP, CRP, T4F, TSH3, ESR #### [address] Comprehensive Metabolic Pane molly 04-06-2019 Albumin [Mass/Vol] 4.0 g/dL Normal 3.2-5.5 [facility] Comment on above: Performed By: #### C BC, CK, CMP, CRP, T4F, TSH3, ESR #### [address] Albumin/Globulin [Mass ratio] 1.5 {ratio} Normal [facility] Comment on above: Performed By: #### C BC, CK, CMP, CRP, T4F, TSH3, ESR #### [address] ALP [Catalytic activity/Vol] 40 U/L Normal 32-92 [facility] Comment on above: Performed By: #### C BC, CK, CMP, CRP, T4F, TSH3, ESR #### [address] ALT [Catalytic activity/Vol] 10 U/L Normal 10-60 [facility] Comment on above: Performed By: #### C BC, CK, CMP, CRP, T4F, TSH3, ESR #### [address] AST [Catalytic activity/Vol] 15 U/L Normal 10-42 [facility] Comment on above: Performed By: #### C BC, CK, CMP, CRP, T4F, TSH3, ESR #### [address] Bilirubin [Mass/Vol] 0.6 mg/dL Normal 0.3-1.2 [facility] Comment on above: Performed By: #### C BC, CK, CMP, CRP, T4F, TSH3, ESR #### [address] Calcium [Mass/Vol] 9.6 mg/dL Normal 8.2-10.2 [facility] Comment on above: Performed By: #### C BC, CK, CMP, CRP, T4F, TSH3, ESR #### [address] Chloride [Moles/Vol] 103 mmol/L Normal 95-114 [facility] Comment on above: Performed By: #### C BC, CK, CMP, CRP, T4F, TSH3, ESR #### [address] CO2 [Moles/Vol] 26.6 mmol/L Normal 22.0-30.0 [facility] Comment on above: Performed By: #### C BC, CK, CMP, CRP, T4F, TSH3, ESR #### [address] Creatinine [Mass/Vol] 0.79 mg/dL Normal 0.44-1.03 [facility] Comment on above: Performed By: #### C BC, CK, CMP, CRP, T4F, TSH3, ESR #### [facility] [address] Estimated GFR ( Kimberly > 60 Normal [facility] Comment on above: Result Comment: GFR estimated reference range: According to KDOQI guidelines, <60 ml/min/1.73m2 is sufficient to diagnose a patient with chronic kidney disease. Performed By: #### C BC, CK, CMP, CRP, T4F, TSH3, ESR #### [facility] [address] Estimated GFR (Non- Am > 60 Normal [facility] Comment on above: Performed By: #### C BC, CK, CMP, CRP, T4F, TSH3, ESR #### [facility] [address] Globulin (S) [Mass/Vol] 2.6 g/dL Normal [facility] Comment on above: Performed By: #### C BC, CK, CMP, CRP, T4F, TSH3, ESR #### [facility] [address] Glucose [Mass/Vol] 87 mg/dL Normal 70-100 [facility] Comment on above: Result Comment: [place] om Glucose Reference Range is dependent on time and content of last meal. Glucose of more than 200 mg/dL in a nonstressed, ambulatory subject supports the diagnosis of Diabetes Mellitus. ADA recommended reference range Performed By: #### C BC, CK, CMP, CRP, T4F, TSH3, ESR #### [facility] [address] Potassium [Moles/Vol] 4.2 mmol/L Normal 3.5-5.1 [facility] Comment on above: Performed By: #### C BC, CK, CMP, CRP, T4F, TSH3, ESR #### [facility] [address] Protein [Mass/Vol] 6.6 g/dL Normal 6.1-7.9 [facility] Comment on above: Performed By: #### C BC, CK, CMP, CRP, T4F, TSH3, ESR #### [address] Sodium [Moles/Vol] 140 mmol/L Normal 136-146 [facility] Comment on above: Performed By: #### C BC, CK, CMP, CRP, T4F, TSH3, ESR #### [address] Urea nitrogen [Mass/Vol] 12 mg/dL Normal 9-23 [facility] Comment on above: Performed By: #### C BC, CK, CMP, CRP, T4F, TSH3, ESR #### [address] Creatine Kinaseon 04-06-2019 CK [Catalytic activity/Vol] 46 U/L Normal 22-269 [facility] Comment on above: Result Comment: PERF ORMED BY: [place] [address] PATHOLOGIST [employer] TEACHER ROSLYN TALLEY M.D. Performed By: #### C BC, CK, CMP, CRP, T4F, TSH3, ESR #### [address] Dipstick and Microscopicon 1 Appearance (U) Turbid Critically abnormal Clear [facility] Comment on above: Order Comment: Name Collection Type:: Clean-Voided Midstream Performed By: #### A DDONUAPLUS, PT, PTT #### [address] Bacteria LM.HPF (Urine sed) [#/Area] 1+ High None Seen [facility] Comment on above: Order Comment: Name Collection Type:: Clean-Voided Midstream Performed By: #### A DDONUAPLUS, PT, PTT #### [address] Bilirubin,Urine Negative Normal Negative [facility] Comment on above: Order Comment: Name Collection Type:: Clean-Voided Midstream Performed By: #### A DDONUAPLUS, PT, PTT #### [facility] [address] [place] [address] [place] Color (U) Yellow Normal Yellow [facility] Comment on above: Order Comment: Name Collection Type:: Clean-Voided Midstream Performed By: #### A DDONUAPLUS, PT, PTT #### [facility] [address] Glucose Ql (U) Normal Normal Normal [facility] Comment on above: Order Comment: Name Collection Type:: Clean-Voided Midstream Performed By: #### A DDONUAPLUS, PT, PTT #### [facility] [address] [place] [address] [place] Hyaline Casts,Urine None Seen Normal 0-1 [facility] Comment on above: Order Comment: Name Collection Type:: Clean-Voided Midstream Performed By: #### A DDONUAPLUS, PT, PTT #### [facility] [address] [place] [address] [place] Ketones Ql (U) Trace High Negative [facility] Comment on above: Order Comment: Name Collection Type:: Clean-Voided Midstream Performed By: #### A DDONUAPLUS, PT, PTT #### [facility] [address] [place] [address] Leukocyte esterase Test strip Ql (U) 3+ High Negative [facility] Comment on above: Order Comment: Name Collection Type:: Clean-Voided Midstream Performed By: #### A DDONUAPLUS, PT, PTT #### [facility] [address] [place] [address] [place] Nitrite,Urine Negative Normal Negative [facility] Comment on above: Order Comment: Name Collection Type:: Clean-Voided Midstream Performed By: #### A DDONUAPLUS, PT, PTT #### [facility] [address] [place] [address] [place] Occult Blood,Urine Negative Normal Negative [facility] Comment on above: Order Comment: Name Collection Type:: Clean-Voided Midstream Performed By: #### A DDONUAPLUS, PT, PTT #### [facility] [address] [place] [address] [place] Other Casts,Urine None Seen Normal None Seen [facility] Comment on above: Order Comment: Name Collection Type:: Clean-Voided Midstream Result Comment: PERF ORMED BY: [place] [address] PATHOLOGIST CD[employer] TEACHER ROSLYN TALLEY M.D. Performed By: #### A DDONUAPLUS, PT, PTT #### [address] pH (U) 5.0 [pH] Normal 5.0-9.0 [facility] Comment on above: Order Comment: Name Collection Type:: Clean-Voided Midstream Performed By: #### A DDONUAPLUS, PT, PTT #### [address] Protein (U) [Mass/Vol] Negative Normal Negative [facility] Comment on above: Order Comment: Name Collection Type:: Clean-Voided Midstream Performed By: #### A DDONUAPLUS, PT, PTT #### [address] RBC LM.HPF (Urine sed) [#/Area] 5-9 High 0-4 [facility] Comment on above: Order Comment: Name Collection Type:: Clean-Voided Midstream Performed By: #### A DDONUAPLUS, PT, PTT #### [address] Specificy [place],Urine 1.024 Normal 1.001-1.030 [facility] Comment on above: Order Comment: Name Collection Type:: Clean-Voided Midstream Performed By: #### A DDONUAPLUS, PT, PTT #### [address] Squamous Epithelial Cell,Urine 5-9 High 0-2 [facility] Comment on above: Order Comment: Name Collection Type:: Clean-Voided Midstream Performed By: #### A DDONUAPLUS, PT, PTT #### [address] Urobilinogen,Urine Normal Normal Normal [facility] Comment on above: Order Comment: Name Collection Type:: Clean-Voided Midstream Performed By: #### A DDONUAPLUS, PT, PTT #### [address] WBC LM.HPF (Urine sed) [#/Area] 20-49 High 0-4 [facility] Comment on above: Order Comment: Name Collection Type:: Clean-Voided Midstream Performed By: #### A DDONUAPLUS, PT, PTT #### [address] Erythrocyte Sedimentation Ra roosevelt 04-06-2019 ESR (Bld) [Velocity] 23 mm/h Normal 0-30 [facility] Comment on above: Result Comment: PERF ORMED BY: [place] [address] PATHOLOGIST CDA TEACHER ROSLYN TALLEY M.D. Performed By: #### C BC, CK, CMP, CRP, T4F, TSH3, ESR #### [address] Free T4 (Free Thyroxine)on 1 Free T4 [Mass/Vol] 0.88 ng/dL Normal 0.61-1.12 [facility] Comment on above: Performed By: #### C BC, CK, CMP, CRP, T4F, TSH3, ESR #### [place] [address] [place] Partial Thromboplastin Timeo n 04-06-2019 aPTT Coag (Bld) [Time] 29.8 s Normal 23.0-35.0 [facility] Comment on above: Order Comment: List the anticoagulant: NONE Result Comment: PERF ORMED BY: [place] [address] PATHOLOGIST CD[employer] TEACHER ROSLYN TALLEY M.D. Performed By: #### A DDONUAPLUS, PT, PTT #### [address] Prothrombin Time INRon 04-06 INR Coag (Bld) [Relative time] 10.3 s Normal 9.0-12.9 [facility] Comment on above: Order Comment: List the anticoagulant: NONE Performed By: #### A DDONUAPLUS, PT, PTT #### [facility] [address] INR Coag (PPP) [Relative time] 0.9 {INR} Normal [facility] Comment on above: Order Comment: List the anticoagulant: NONE Result Comment: INR Therapeutic Range A) Pre- and Peroperative OAT started two weeks before surgery. NOT HIP SURGERY: 1.5 - 2.5 HIP SURGERY: 2 - 3 B) Primary and secondary prevention of venous THROMBOSIS: 2 - 3 C) Active venous thrombosis, pulmonary embolism and prevention of recurrent venous thrombosis: 2 - 3 D) Prevention of arterial thromboembolism including patients with mechanical heart valves: 3 - 4.5 Performed By: #### A DDONUAPLUS, PT, PTT #### [address] Thyroid Stimulating Hormoneo n 04-06-2019 TSH Qn 2.89 u[iU]/mL Normal 0.45-5.33 [facility] Comment on above: Result Comment: PERF ORMED BY: [place] [address] PATHOLOGIST CD[employer] TEACHER ROSLYN TALLEY M.D. Performed By: #### C BC, CK, CMP, CRP, T4F, TSH3, ESR #### [address] Vital Signs Date Time Vital Sign Value Performing Clinician Facility 05-05-2023 09:10-0400 Body height 160.02 cm Casandra Chopra Other [facility] Other 05-05-2023 09:10-0400 Body mass index (BMI) [Ratio] 31.35 kg/m2 Casandra Chopra Other [facility] Other 05-05-2023 09:10-0400 Body temperature 98.9 [degF] Casandra Chopra Other [facility] Other 05-05-2023 09:10-0400 Body weight 80.29 kg Casandra Chopra Other [facility] Other 05-05-2023 09:10-0400 Diastolic blood pressure 68 mm[Hg] Casandra Chopra Other [facility] Other 05-05-2023 09:10-0400 Respiratory rate 18 /min Casandra Chopra Other [facility] Other 05-05-2023 09:10-0400 SaO2% (BldA) [Mass fraction] 98 % Casandra Chopra Other [facility] Other 05-05-2023 09:10-0400 Systolic blood pressure 112 mm[Hg] Casandra Chopra Other [facility] Other 02-23-2023 11:40-0400 Body height 160.02 cm Eva Blades Other [facility] Other 02-23-2023 11:40-0400 Body mass index (BMI) [Ratio] 31.35 kg/m2 Eva Blades Other [facility] Other 02-23-2023 11:40-0400 Body weight 80.29 kg Eva Blades Other [facility] Other 02-23-2023 11:40-0400 Diastolic blood pressure 78 mm[Hg] Eva Blades Other [facility] Other 02-23-2023 11:40-0400 Systolic blood pressure 110 mm[Hg] Eva Blades Other [facility] Other 12-29-2022 10:00-0400 Body height 160.02 cm [facility] Other [facility] Other 12-29-2022 10:00-0400 Body mass index (BMI) [Ratio] 30.82 kg/m2 [facility] Other [facility] Other 12-29-2022 10:00-0400 Body weight 78.93 kg [facility] Other [facility] Other 12-29-2022 10:00-0400 Diastolic blood pressure 68 mm[Hg] [facility] Other [facility] Other 12-29-2022 10:00-0400 Systolic blood pressure 118 mm[Hg] [employer] Other [facility] Other 10-28-2022 10:10-0400 Body height 160.02 cm Casandra Chopra Other [facility] Other 10-28-2022 10:10-0400 Body mass index (BMI) [Ratio] 31.7 kg/m2 Casandra Chopra Other [facility] Other 10-28-2022 10:10-0400 Body temperature 97.6 [degF] Casandra Chopra Other [facility] Other 10-28-2022 10:10-0400 Body weight 81.19 kg Casandra Chopra Other [facility] Other 10-28-2022 10:10-0400 Diastolic blood pressure 68 mm[Hg] Casandra Chopra Other [facility] Other 10-28-2022 10:10-0400 Respiratory rate 18 /min Casandra Chopra Other [facility] Other 10-28-2022 10:10-0400 SaO2% (BldA) [Mass fraction] 99 % Casandra Chopra Other [facility] Other 10-28-2022 10:10-0400 Systolic blood pressure 112 mm[Hg] Casandra Chopra Other [facility] Other 02-04-2022 15:05-0400 Blood Pressure Location [facility] [place] 02-04-2022 15:05-0400 Diastolic blood pressure 60 mm[Hg] Russell NILL [facility] [place] 02-04-2022 15:05-0400 Heart rate 72 /min Russell NILL [facility] [place] 02-04-2022 15:05-0400 Respiratory rate 16 /min Russell NILL [facility] [place] 02-04-2022 15:05-0400 Systolic blood pressure 116 mm[Hg] Russell NILL [facility] [place] 10-17-2021 09:50-0400 Body height 160.02 cm Casandra Chopra Other [facility] Other 10-17-2021 09:50-0400 Body mass index (BMI) [Ratio] 31 kg/m2 Casandra Chopra Other [facility] Other 10-17-2021 09:50-0400 Body temperature 97.8 [degF] Casandra Chopra Other [facility] Other 10-17-2021 09:50-0400 Body weight 79.38 kg Casandra Chopra Other [facility] Other 10-17-2021 09:50-0400 Diastolic blood pressure 64 mm[Hg] Casandra Chopra Other [facility] Other 10-17-2021 09:50-0400 Respiratory rate 18 /min Casandra Chopra Other [facility] Other 10-17-2021 09:50-0400 SaO2% (BldA) [Mass fraction] 97 % Casandra Chopra Other [facility] Other 10-17-2021 09:50-0400 Systolic blood pressure 102 mm[Hg] Casandra Chopra Other [facility] Other 09-04-2021 09:10-0500 Body height 160.02 cm Casandra Chopra Other [facility] Other 09-04-2021 09:10-0500 Body mass index (BMI) [Ratio] 30.11 kg/m2 Casandra Chopra Other [facility] Other 09-04-2021 09:10-0500 Body temperature 97.6 [degF] Casandra Chopra Other [facility] Other 09-04-2021 09:10-0500 Body weight 77.11 kg Casandra Chopra Other [facility] Other 09-04-2021 09:10-0500 Diastolic blood pressure 68 mm[Hg] Casandra Chopra Other [facility] Other 09-04-2021 09:10-0500 Respiratory rate 18 /min Casandra Leunglaura Other [facility] Other 09-04-2021 09:10-0500 SaO2% (BldA) [Mass fraction] 99 % Casandra Xochitllaura Other [facility] Other 09-04-2021 09:10-0500 Systolic blood pressure 104 mm[Hg] Casandra Chopra Other [facility] Other 04-10-2021 10:10-0400 Body height 160.02 cm Casandra Chopra Other [facility] Other 04-10-2021 10:10-0400 Body mass index (BMI) [Ratio] 31 kg/m2 Casandra Chopra Other [facility] Other 04-10-2021 10:10-0400 Body temperature 97.4 [degF] Casandra Xochitllaura Other [facility] Other 04-10-2021 10:10-0400 Body weight 79.38 kg Casandra Xochitllaura Other [facility] Other 04-10-2021 10:10-0400 Diastolic blood pressure 76 mm[Hg] Casandra Chopra Other [facility] Other 04-10-2021 10:10-0400 Respiratory rate 18 /min Casandra Xochitllaura Other [facility] Other 04-10-2021 10:10-0400 SaO2% (BldA) [Mass fraction] 99 % Casandra Chopra Other [facility] Other 04-10-2021 10:10-0400 Systolic blood pressure 118 mm[Hg] Casandra Chopra Other [facility] Other Encounters Encounter Date Encounter Type Care Provider Facility Start: 05-12-2023 End: 05-12-2023 ambulatory Casandra Chopra Other [facility] Other Start: 05-12-2023 Telephone encounter Casandra Chopra [facility] [place] Start: 05-05-2023 End: 05-05-2023 ambulatory Casandra Chopra Other [facility] Other Start: 05-05-2023 Office outpatient vi sit 25 minutes Casandra Chopra [facility] [place] Start: 05-05-2023 Telephone encounter Casandra Chopra [facility] [place] Start: 02-23-2023 End: 02-23-2023 ambulatory Eva Cortes Other [facility] Other Start: 02-23-2023 Office outpatient vi sit 15 minutes Eva Cortes [facility] Start: 02-19-2023 End: 02-19-2023 ambulatory Germaine Manuel Facility:[facility] Start: 02-19-2023 End: 02-19-2023 ambulatory DO Josiah Samuel Work Phone: [facility] Work Phone: Start: 02-19-2023 End: 02-19-2023 Patient encounter procedure DO Josiah Lizzie Work Phone: [facility] [place] Work Phone: Start: 02-12-2023 End: 02-12-2023 ambulatory Casandra Chopra Other [facility] Other Start: 02-12-2023 Telephone encounter Casandra Chopra [facility] [place] Start: 02-02-2023 End: 02-02-2023 ambulatory Casandra Chopra Other [employer] Other Start: 02-02-2023 Telephone encounter Casandra Chopra [facility] [place] Start: 12-30-2022 End: 12-30-2022 ambulatory Germaine Mar Other [employer] Other Start: 12-30-2022 Telephone encounter Germaineshanann Manuel [facility] [employer] Start: 12-29-2022 End: 12-29-2022 ambulatory Germaine Mar Other [employer] Other Start: 12-29-2022 Office outpatient ne w 45 minutes Germaineshannan Manuel [facility] Start: 12-02-2022 End: 12-03-2022 ambulatory CHRISSY VENEGAS . Facility:[facility] Start: 10-28-2022 End: 10-28-2022 ambulatory Casandra Chopra Other [employer] Other Start: 10-28-2022 Office outpatient vi sit 25 minutes Casandra Chopra [facility] [place] Start: 10-22-2022 End: 10-23-[address] CASANDRA CHOPRA Facility:[facility] Start: 09-15-2022 End: 09-15-2022 ambulatory Casandra Chopra Other [employer] Other Start: 09-15-2022 Telephone encounter Casandra Chopra [facility] [place] Start: 08-18-2022 End: 08-19-[address] CASANDRA CHOPRA Facility:[facility] Start: 05-12-2022 End: 05-13-[address] CASANDRA CHOPRA Facility:[facility] Start: 05-05-2022 End: 05-05-2022 ambulatory Casandra Chopra Other [employer] Other Start: 05-05-2022 Telephone encounter Casandra Chopra [facility] [place] Start: 05-01-2022 End: 05-02-[address] CASANDRA CHOPRA Facility:[facility] Start: 04-14-2022 End: 04-15-[address] CASANDRA CHOPRA Facility:[facility] Start: 02-19-2022 End: 02-20-[address] CASANDRA CHOPRA Facility:[facility] Start: 02-04-2022 End: 02-04-2022 Patient encounter procedure Russell HARRELL General Surgery N[facility] [place] Start: 12-30-2021 End: 12-31-[address] CASANDRA CHOPRA Facility:[facility] Start: 12-16-2021 End: 12-17-[address] CASANDRA CHOPRA Facility:[facility] Start: 12-03-2021 End: 12-03-2021 ambulatory Casandra Chopra Other [employer] Other Start: 12-03-2021 Telephone encounter Casandra Chopra [facility] [place] Start: 10-22-2021 End: 10-22-2021 ambulatory Casandra Chopra Other [employer] Other Start: 10-22-2021 Telephone encounter Casandra Chopra [facility] [place] Start: 10-17-2021 End: 10-17-2021 ambulatory Casandra Chopra Other [employer] Other Start: 10-17-2021 Office outpatient vi sit 25 minutes Casandra Chopra [facility] [place] Start: 10-17-2021 Telephone encounter Casandra Chopra [facility] [place] Start: 09-04-2021 End: 09-04-2021 ambulatory Casandra Chopra Other [employer] Other Start: 09-04-2021 Office outpatient vi sit 15 minutes Casandra Chopra [facility] [place] Start: 04-24-2021 Telephone encounter Casandra Chopra [facility] [place] Start: 04-10-2021 Office outpatient vi sit 15 minutes Casandra Chopra [facility] [place] Procedures Date Procedure Procedure Detail Performing Clinician Start: 02-19-2023 MR thoracic spine wo con DO Josiah Samuel Work Phone: Start: 02-19-2023 XR pre/post mri xray DO Josiah Samuel Work Phone: Start: 06-09-2018 Colonoscopy Russell SANTIAGO Arthroscopy of shoulder Ethan ael NILL Excision of bunion Russell N ILL Extraction of cataract Lele vallejo NILL Hammer toe operation Russell NILL History of surgical procedure on cervical spine Russell NILL Ligation of fallopian tube Darrell rodrigez NILL Release of tendon Russell NI LL Comment on above: left elbow Screening for malign ant neoplasm of breast Casandra hCopra Other Total abdominal hysterectomy with bilateral salpingo-oophorectomy Russell NILL Immunizations Immunization Date Immunization Notes Care Provider Shyla hall 04-20-2021 COVID-19 Vaccine Pfizer - Documentation Purposes Only Casandra Chopra Other [employer] Other 04-10-2021 influenza, seasonal, injectable Patient Objection Casandra Chopra Other [employer] Other 03-30-2021 COVID-19 Vaccine Pfizer - Documentation Purposes Only Casandra Chopra Other [employer] Other 11-21-2016 Toradol per 15 mg Casandra Calderon in Other [employer] Other 06-02-2016 influenza, seasonal, injectable Patient Objection Casandra Chopra Other [employer] Other 06-02-2016 pneumococcal polysaccharide vaccine, 23 valent Patient Objection Casandra Chopra Other [employer] Other 03-23-2012 Kenalog 40/Xylocaine Casandra mendieta Other [employer] Other NEGATED: Highlighted row has not occurred!10-06-202 1 influenza, seasonal, injectable Patient Objection Casandra Chopra Other [employer] Other NEGATED: Highlighted row has not occurred! 6 influenza, seasonal, injectable Patient Objection Casandra Chopra Other [employer] Other NEGATED: Highlighted row has not occurred! 6 pneumococcal polysaccharide vaccine, 23 valent Patient Objection Casandra Chopra Other [employer] Other Payers Date Payer Category Payer Private Health Insurance [id number] 2022 Self-pay [id number] 2019 Medicare [id number] [id number] 1959 Medicare [id number] 2. [id number] 1957 Medicare [id number] 1959 Private Health Insurance [id number] 1959 Unknown [id number] 1952 Unknown [id number] 2.16.84 [id number] 1952 Unknown [id number] 2.16.84 [id number] 1952 Unknown [id number] 2.16.84 [id number] 1952 Unknown [id number] 2.16.84 [id number] 1952 Unknown [id number] 2.16.84 [id number] 1952 Unknown [id number] 2.16.84 [id number] 1952 Unknown [id number] 2.16.84 [id number] 1952 Unknown [id number] 2.16.84 [id number] 1952 Unknown [id number] 2.16.84 [id number] 1952 Unknown [id number] 2.16.84 [id number] Unknown [id number] 2.16.8 [id number] Social History Date Type Detail Facility Unknown if ever smoked [employer] Other Sex Assigned At [employer] Other Start: 02-04-2022 Tobacco smoking status Heavy t obacco smoker (finding) [facility] [place] Tobacco smoking status Never [facility] Start: 1950 Sex Assigned At Female F [facility] Functional Status Date Assessment Result Facility 02-04-2022 Functional Status N/A [facility] Clinical Notes 08-11-2012 to 05-05-2023 Note Date & Type Note Facility 05-05-2023 Evaluation note Encounter Date Diagnosis Assessment Notes Apr, Hematuria (ICD-10 - R31.9) [employer] Other 10-31-2023 Evaluation note* Encounter Date Diagnosis Assessment Notes Treatment Notes Treatment Clinical Notes Apr, Hyperlipidemia (ICD-10 - E78.5) Discussed cholesterol results with patient today. Total is 163. HDL is 71. LDL is 79. Triglycerides are 67. VLDL is 13.4. I would like her to continue with above medication daily as directed. Continue to monitor intake of carbs and sugars. Stay active. Apr, Polyarthralgia (ICD-10 - M25.50) Continue to follow with Dr. Bell as scheduled. Apr, Edema (ICD-10 - R60.9) Continue with above medications as needed. Apr, Gastritis (ICD-10 - K29.70) Continue with above medication as directed. Apr, Compression fracture of body of thoracic vertebra (ICD-10 - M48.54XA) Eighth vertebrae She saw Dr. Cortes for evaluation and she told Genna that this fracture was healing and nothing further needed to be done. Apr, COPD (chronic obstructive pulmonary disease) (ICD-10 - J44.9) Continue to follow with Dr. Venegas as directed. She does continue with above medications as directed. Apr, Other retirement (current) drug therapy (ICD-10 - Z79.899) Apr, Impacted cerumen (ICD-10 - H61.20) There are a few flakes noted in the right ear on exam but it is not impacted with cerumen and does not need to be cleaned. She voices understanding. She will have the ENT evaluate her ear when seen. Apr, Weight gain (ICD-10 - R63.5) Her TSH is normal at 2.224. Apr, Jaw pain (ICD-10 - R68.84) If she eats something sweet her mouth will water or hurt. If she chews food her jaw will hurt when she is chewing. It does not do it all the time but it is happening more frequently. She has a dentist, and they are aware that she is on Boniva, and they have never mentioned that her jaw issues may be coming from the Boniva. We discussed that there are muscles that can become inflamed causing these symptoms. Apr, Macrocytosis (ICD-10 - D75.89) I would like to order a B12 and Folate level to see if she is B12 deficient. I do not want her to start a B12 supplement until we see these results. She is to call for the lab results. Apr, Ear pain, left (ICD-10 - H92.02) I did advise her that her left ear is not infected, but it is not normal on appearance. She voices that some days there is ringing on exam. It is possible that this is fluid. She voices that it does not feel right. I will refer her to Dr. Blanton for evaluation. Apr, Hematuria (ICD-10 - R31.9) Her urinalysis is abnormal, she denies any urine infection symptoms. Her urine was not infected. There was blood noted in her urine (5-10 red blood cells). Will discuss a repeat UA and renal ultrasound with patient. Apr, Other She saw Dr. Mic kohler for evaluation of a hernia and he told her to take it easy, if it bothers her or worsens she is to let him know. She has not been mulching. [employer] Other 08-21-2023 Evaluation note* Encounter Date Diagnosis Assessment Notes Treatment Notes Treatment Clinical Notes Feb, Compression fracture of T8 vertebra with routine healing, subsequent encounter (ICD-10 - S22.060D) [employer] Other 06-26-2023 Evaluation note* Encounter Date Diagnosis Assessment Notes Treatment Notes Treatment Clinical Notes Dec, Compression fracture of T8 vertebra, initial encounter (ICD-10 - S22.060A) Reviewed CT which shows worsening of compression fracture discussion with Dr Cortes. Patient is not currently been told she has Lung Cancer or anything but continues to smoke 1/2-1 PPD for 40 years.Discussion of smoking cession. Will get MARLENE from pulmonolgy Dr Venegas for continuity of care. Will order MRI thoracic spine. Follow up with Dr Cortes once imaging is completed. Medical decision making shows a new problem to me with further workup planned or suggested with the potential for extensive treatment options that were considered with the most applicable given this patient's situation as noted above. Treatment options considered include a combination of physical therapy approaches, pharmacologic management, and interventional procedures. Those most applicable to the patient were discussed at this time. Risk of complications and/or morbidity and mortality is high given that acute and chronic pain poses a threat to life and bodily function if undertreated, poorly treated or with failure to maintain adequate treatment and timely follow up. Given the serious and fluctuating nature of pain with extensive consideration for whenever pain changes, there always remains the possibility of prolonged functional impairment requiring constant patient reassessment and high-level medical decision making. The amount and complexity of data reviewed is moderate given that patient labs, radiology reports, and other test were obtained, reviewed and summarized as applicable from the physician portal and/or outside medical records. Pertinent positive and negative findings were considered in medical decision-making. Dec, Obesity (BMI 30-39.9) (ICD-10 - E66.9) Dec, Encounter for screening for depression (ICD-10 - Z13.31) Dec, History of participation in smoking cessation counseling (ICD-10 - Z71.89) Dec, Osteoarthritis (ICD-10 - M19.90) Dec, Unsteady gait (ICD-10 - R26.81) Dec, Other OARRS reviewed [employer] Other 04-25-2023 Evaluation note* Encounter Date Diagnosis Assessment Notes Treatment Notes Treatment Clinical Notes Oct, Hyperlipidemia (ICD-10 - E78.5) Discussed cholesterol results with patient today. Total is 162. HDL is 69. LDL is 81.8 Triglycerides are 56. VLDL is 11.2. She admits she has been doing alot of work outside and walking. Right now she cannot eat as much as she did before because her kitchen is tore apart for remodeling. She is to continue to monitor her intake of carbs and sugars. Stay active as tolerated. Oct, Gastritis (ICD-10 - K29.70) Continue with above medication daily as directed. Oct, Impacted cerumen of right ear (ICD-10 - H61.21) She has been using Debrox ear drops for several days prior to coming in to soften the ear wax. Verbal consent was obtained prior to the right ear irrigation. The right ear was irrigated with success and she tolerated the procedure well. Oct, Edema (ICD-10 - R60.9) She is to use above medications as needed. 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 Bell and his HEALTH SYSTEMS ANALYST as scheduled. Oct, COPD (chronic obstructive pulmonary disease) (ICD-10 - J44.9) She is following with Dr. Venegas and has imaging scheduled for next month to re-evaluate her lungs. I did recommend that she stop smoking. She voices that she has stopped smoking after 9 PM and is trying to work on smoking cessation. Oct, Weight gain (ICD-10 - R63.5) She admits she has had the munchies because she has been under alot of stress. She lost three people who were close to her and her cat recently. Oct, Compression fracture of body of thoracic vertebra (ICD-10 - M48.54XA) Eighth vertebrae She does continue to have some back pain. She will be having some imaging done next month for Dr. Venegas and will see if this shows whether or not this is improving. Oct, Hematuria (ICD-10 - R31.9) for lab order only Oct, Sinus drainage (ICD-10 - J34.89) She voices that she has a few sinus problems but has nose spray prescribed by Dr. Venegas and this helps. Oct, Other She saw an eye doctor for an infection in her tear duct of the right eye. Due to her ventral hernia she needs to be sure she breaths out before she lifts anything heavy. [employer] Other 03-13-2023 Evaluation note* Encounter Date Diagnosis Assessment Notes Treatment Notes Treatment Clinical Notes Sep, Hyperlipidemia (ICD-10 - E78.5) [employer] Other 10-31-2022 Evaluation note* Encounter Date Diagnosis Assessment Notes Treatment Notes Treatment Clinical Notes Apr, Hematuria (ICD-10 - R31.9) [employer] Other 08-04-2022 NoteChief Complaint consultation for ventral hernia HPI Staff 71 year old female presents on consultation from Dr. Chopra for ventral hernia. Reports she moved [employer] two months ago. Noted epigastric lump several days later. States bulge is always present. Intermittent discomfort that radiates in location. Denies nausea or vomiting. Bowels moving well. No imaging completed. History of Present Illness 71 yo female with h/o COPD, arthritis, GERD, osteoporosis; referred for possible ventral hernia; patient noticed upper abdominal lump several months ago after lifting microwave; sore, no skin changes, no N/V or bowel changes, does not reduce; no change in size; no imaging studies; abdominal operations significant for DIXIE with bso; on Etodolac daily, no asa; smokes daily. Review of Systems PHQ Score Initial Depression Screen Score: 0 ROS - Provider Constitutional: no fever, no sweats, no weight loss. Eyes: no glasses, no blurred vision, no visual loss. ENMT: no dentures, no hoarseness, no swallowing difficulties, no hearing loss, no ear infection(s),no nose bleeds. Cardiovascular: normal blood pressure, no chest pain, regular heartbeat, no heart murmur. Respiratory: no shortness of breath, no cough, no asthma, yes wheezing. Gastrointestinal: no nausea, no vomiting, no diarrhea, no constipation, no blood in stool, no change in bowel habits, yes abdominal pain, no hepatitis. Genitourinary: no kidney stones, no urine infection, no dysuria. Musculoskeletal: yes pain, no weakness. Skin: no changing moles, no rash, yes skin lumps. Neurologic: no seizures, no epilepsy, no headache. Psychiatric: no emotional or psychiatric problem. Heme/Lymph: no bleeding problems, no anemia, no blood clots, no transfusions. Allergy/Immunologic: no swollen lymph nodes/glands, no IV drug abuse. Other: Additional ROS info: Except as noted in the above Review of Systems and in the History of Present Illness, all other systems have been reviewed and are negative or noncontributory. Physical Exam Vitals & Measurements HR: 72(Peripheral) RR: 16 BP: 116/60 HT: 160 cm HT: 160.0 cm WT: 80 kg WT: 80.0 kg BMI: 31.25 HEENT: normal conjunctiva, sclera clear, no scleral icterus, EOM intact, PERRLA, oral mucosa moist without lesions. Neck: trachea midline, no mass, symmetric, no thyromegaly or nodules, no adenopathy Respiratory: lungs CTA, respirations non labored. Cardiovascular: regular rate and rhythm, no murmur, no pedal edema or varicosities. Gastrointestinal: soft, non distended, nonreducible epigastric midline nodule, 2 cm, tender, no overlying skin changes, no masses, no palpable hernia defects, diastasis recti yes, no hepatosplenomegaly; normal bs Lymphatic: no cervical adenopathy, Musculoskeletal: normal gait, digits and nails without infection, nodes, cyanosis, clubbing. Skin: no rashes, no lesions, no ulcers, no subcutaneous nodules, induration. Psychiatric/Neuro: oriented to time, place, person, judgement normal, affect appropriate for age, insight intact, no focal deficits. Tests: review of old records completed, Assessment/Plan 1. Epigastric pain (R10.13: Epigastric pain) possible incarcerated epigastric hernia; will obtain abd ct scan for further evaluation; will call patient with results. 2. Irreducible epigastric hernia (K43.6: Other and unspecified ventral hernia with obstruction, without gangrene) see # 1 3. Tobacco use (Z72.0: Tobacco use) We strongly recommend to quit tobacco use. Cigarette smoking harms nearly every organ of the body, causes many diseases, and reduces the health of smokers in general. Quitting smoking lowers your risk for smoking-related diseases and can add years to your life. We encourage you to visit www.smokefree.gov access to helpful resources including free telephone support. If you decide on prescription treatment to help you quit, your family doctor would be happy to provide these. Follow-up No qualifying data available Problem List/Past Medical History Ongoing Arthritis BMI 31.0-31.9,adult Chronic obstructive pulmonary disease Epigastric pain GERD (gastroesophageal reflux disease) Irreducible epigastric hernia Lower extremity edema Osteopenia Thoracic compression fracture Tobacco use Varicose veins of legs Ventral hernia Historical No qualifying data Procedure/Surgical History Colonoscopy (06/09/2018), Arthroscopy of shoulder, Bunionectomy, Cataract extraction, Correction ofhammer toe, History of cervical spine surgery, Release of tendon, DIXIE BSO - Total abdominal hysterectomy and bilateral salpingo- oophorectomy, Tubal ligation. Medications atorvastatin 10 mg Tab, 10 mg= 1 tab(s), Oral, Daily calcium-vitamin D etodolac 400 mg Tab, 400 mg= 1 tab(s), Oral, TID hydroxychloroquine 200 mg Tab ipratropium nasal 0.03% spray, 2 spray(s), Nasal, BID Lasix 20 mg Tab, 20 mg= 1 tab(s), Oral, Daily Pantoprazole [address] Tab, 40 mg= 1 tab(s), Oral, Daily potassium (more content not included)...[facility] HospitalComment on above:Result Comment: Electronically Signed By: SHARRI BECKER, Russell Valverde\Date and Time Signed: 02/06/22 10:42 [id number] Evaluation note* Encounter Date Diagnosis Assessment Notes Treatment Notes Treatment Clinical Notes Oct, Hyperlipidemia (ICD-10 - E78.5) Discussed cholesterol results with patient today. Total is 163. HDL is 72. LDL is 80.2. Triglycerides are 54. Readings are at goal. She is to continue with above medication daily as directed. Continue to monitor intake of carbs and sugars. Stay active. Oct, Edema (ICD-10 - R60.9) Again, she does continue to use and benefit from the above medications when needed. Oct, Bilirubin in urine (ICD-10 - R82.2) We discussed that her urine still has bilirubin in it. She denies pain in her right quadrant after eating greasy foods. She is staying well hydrated with plenty of water. She voices that her urine is thick at times but then returns to normal. If she takes her Lasix she will either void significantly or not at all. She voices that she drinks alot of water, some days more than others. Her blood level is normal. Oct, Impacted cerumen (ICD-10 - H61.20) right ear She is here today for a right ear irrigation. Verbal consent was obtained prior to the procedure. Right ear was irrigated with success. She will plan on using Debrox prior to each appointment and will plan to have her ears irrigated at each appointment. Oct, Polyarthralgia (ICD-10 - M25.50) Continue to follow with Dr. Bell as directed. Oct, COPD (chronic obstructive pulmonary disease) (ICD-10 - J44.9) She returns to see Dr. Venegas in November (2021) and will have a breathing test and repeat CT scan done. Oct, Weight gain (ICD-10 - R63.5) She has gained five pounds since last seen. She admits that she goes through periods where all she wants to do is eat and then other times where she does not. Right now she is on a potato chip kick . She also admits to some stress eating. Oct, Gastritis (ICD-10 - K29.70) Continue with above medication as directed. Oct, Constipation (ICD-10 - K59.00) Continue with above medication as needed. 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 14 Oct, 2021 Other She voices that her left hand is cold but her right hand is not. I did advise her that she has good capillary refill and her pulse is normal in both hands. Temperature in both hands is normal. It does not hurt and neither hand turns blue. Autonomic nervous system was discussed and how this affects the body. I did offer for her to see a vascular specialist (Dr. Valladares) but she is going to monitor and will let me know if it worsens. [employer] Other 03-02-2022 Evaluation note* Encounter Date Diagnosis Assessment Notes Treatment Notes Treatment Clinical Notes Sep, Edema (ICD-10 - R60.9) She does use the Lasix due to edema, voices that some days her swelling is worse than others. Sep, Impacted cerumen of right ear (ICD-10 - H61.21) Her right ear is impacted with cerumen, she gave verbal consent for an ear irrigation to be done. Ear irrigation was unsuccessful, I did recommend that she buy OTC Debrox ear drops and use these as directed until we see her again. Sep, Hypotension (ICD-10 - I95.9) We discussed that her blood pressure has a history of being low. 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 When she was seen by Dr. Bell's HEALTH SYSTEMS ANALYST her BP was 80/60 so they wanted her to be evaluated. There is medication that can be used to raise the blood pressure but she does not want to take any medication if it is not needed. She is drinking plenty of water and is encouraged to continue with this. She has not had any syncope episodes with the low blood pressure. Her kidney studies were checked two weeks ago and they are working well. I do not feel anything needs to be done about this and she is comfortable with this. She does not need to monitor her BP unless she begins to have syncopal episodes or further issues. Sep, Other She has cut jp k on her smoking, it now takes her a day and a half to smoke a pack of cigarettes. She voices that Dr. Venegas knows about this but knows that she is under alot of stress right now. She anticipates that her stress is going to go down soon. [employer] Other 10-06-2021 Evaluation note* Encounter Date Diagnosis Assessment Notes Treatment Notes Treatment Clinical Notes Apr, Hyperlipidemia (ICD-10 - E78.5) Discussed cholesterol results with patient today. Total is 165. HDL is 75. LDL is 74.4. Triglycerides are 78. Readings are at goal. Continue with above medication daily. She admits she has cut back on her intake of iced tea and is drinking more water. Continue to monitor intake of carbs and sugars. Stay active. Apr, Bilirubin in urine (ICD-10 - R82.2) Bilirubin was noted in her urinalysis. She voices that she was well hydrated prior to providing the urine sample. She does not have high bilirubin in her blood, only in the urine. Apr, Edema (ICD-10 - R60.9) Continue with above medications as needed. Apr, Gastritis (ICD-10 - K29.70) Continue with above medication daily as directed. Apr, COPD (chronic obstructive pulmonary disease) (ICD-10 - J44.9) Continue to follow with Dr. Venegas as scheduled (06-03-21) Apr, Polyarthralgia (ICD-10 - M25.50) Continue to follow with Dr. Bell as scheduled (06-04-21) Apr, Weight gain (ICD-10 - R63.5) Her TSH is 3.275. Apr, Constipation (ICD-10 - K59.00) Continue with above medication as needed. Apr, Other retirement (current) drug therapy (ICD-10 - Z79.899) Apr, Other She voices that if she does not take Cranberry tablets her urine becomes thick so she does take the supplement daily. She will be getting her second COVID-19 vaccine on 04-20-21. [employer] Other 02-06-2013 History general Narrative - Reported* Type Description Date Medical History left shoulder & elbow problems Medical History 08/11/12 Cervical spine x-ray [facility] [place] Medical History 10/26/14 refused colonoscopy Medical History Heart palpitations Medical History Heart palpitations Medical History varicose veins Medical History 10/22/2016 Refused Mammogram Surgical History neck Surgical History DIXIE BSO Surgical History bunion right foot Surgical History Lt shoulder scope 03-24 Surgical History Rt hammertoe repair Surgical History Dr. Urena RF Venous ab lasion and microphlebtomy left LE 10/08/16 Surgical History tubal ligation 02/1977 Surgical History cataract surgery both eyes Pars boone 2017 Surgical History Colonoscopy, Dr. Adama varma, needs repeat in 06-09-2018 Hospitalization History above Hospitalization History natural 05/29/19 74 Hospitalization History natural 7 [employer] Other 02-06-2013 History general Narrative - Reported* Type Description Date Medical History left shoulder & elbow problems Medical History 08/11/12 Cervical spine x-ray [facility] [place] Medical History 10/26/14 refused colonoscopy Medical History Heart palpitations Medical History Heart palpitations Medical History varicose veins Medical History 10/22/2016 Refused Mammogram Surgical History neck Surgical History DIXIE BSO Surgical History bunion right foot Surgical History Lt shoulder scope 03-24 Surgical History Rt hammertoe repair [address] Urena RF Venous ab lasion and microphlebtomy left LE 10/08/16 Surgical History tubal ligation 02/1977 Surgical History cataract surgery both eyes Pars boone 2017 Surgical History Colonoscopy, Dr. Adama varma, needs repeat in 202406-09-2018 Hospitalization History above Hospitalization History natural 05/29/19 74 Hospitalization History natural 7 [employer] Other 02-06-2013 History general Narrative - Reported* Type Description Date Medical History left shoulder & elbow problems Medical History 08/11/12 Cervical spine x-ray [facility] [place] Medical History 10/26/14 refused colonoscopy Medical History Heart palpitations Medical History Heart palpitations Medical History varicose veins Medical History 10/22/2016 Refused Mammogram Medical History Arthritis Medical History osteoporosis Surgical History neck Surgical History DIXIE BSO Surgical History bunion right foot Surgical History Lt shoulder scope 03-24 Surgical History Rt hammertoe repair Surgical History Dr. Urena RF Venous ab lasion and microphlebtomy left LE 10/08/16 Surgical History tubal ligation 02/1977 Surgical History cataract surgery both eyes Pars boone 2017 Surgical History Colonoscopy, Dr. Adama varma, needs repeat in 202406-09-2018 Surgical History back surgery Hospitalization History above Hospitalization History natural 05/29/19 74 Hospitalization History natural 7 [employer] Other 02-06-2013 History general Narrative - Reported* Type Description Date Medical History left shoulder & elbow problems Medical History 08/11/12 Cervical spine x-ray [facility] [place] Medical History 10/26/14 refused colonoscopy Medical History Heart palpitations Medical History Heart palpitations Medical History varicose veins Medical History 10/22/2016 Refused Mammogram Medical History Arthritis Medical History osteoporosis Surgical History neck Surgical History DIXIE BSO Surgical History bunion right foot Surgical History Lt shoulder scope 03-24 Surgical History Rt hammertoe repair [address] Ayanna SHINE Venous ab lasion and microphlebtomy left LE 10/08/16 Surgical History tubal ligation 02/1977 Surgical History cataract surgery both eyes Pars boone 2017 Surgical History Colonoscopy, Dr. Adama varma, needs repeat in 202406-09-2018 Surgical History back surgery Hospitalization History see above surg. hx. Hospitalization History natural 05/29/19 74 Hospitalization History natural 7 [employer] Other evaluation + Plan note No data available for this section General Surgery [place] Evaluation noteNo InformationNort MessageMe Other Evaluation noteNo assessment information available [facility] Work Phone: Hospital Discharge instructions No data available for this section General Surgery [place] Progress note No data available for this section General Surgery [place] Summary Purpose Family History No Family History Records FoundNo Family History Records FoundNo Family History Records FoundNo Family History Records Found Advance Directives Advance Directive Response Recorded Date/ Time Advance Directives No April 07, 2019 4:41pm Chief Complaint and Reason for Visit Chief Complaint S22.060A Reason for Referral Reason appt pt needs cons ult to evaluate left ear pain Diagnosis 1 Ear pain, left (H92. 02) Referral Organization [facility] Family Pepe Chen Referring Provider First Name Casandra Referring Provider Last Name Nav Referring Provider Specialty Family Prac amanda Referred Organization [facility] Referred Provider Beth Blanton Referred Address ,[place], [place],[address] Referred Provider Specialty Ear, Nose an d Throat Referral Priority Routine General Notes Eva Weaver 05/05/2023 10:59:36 AM > referral faxed thru [facility] with visit note and insurance card. pt understands she will be contacted to schedule this appt. Additional Source Comments INFORMATION SOURCE (unrecogn ized section and content) DATE CREATED AUTHOR 04/07/2019 [facility] DATE CREATED AUTHOR AUTHOR'S ORGANIZ ATION 03/01/2022 [place] [facility] DATE CREATED AUTHOR AUTHOR'S ORGANIZ ATION 12/12/2022 [facility] DATE CREATED AUTHOR AUTHOR'S ORGANIZ ATION 02/25/2023 [facility] REASON FOR VISIT (unrecogniz ed section and content) review labsstarting medBP/ea rsclinicalreview labs/ear irrigationclinicalClinical Acute MedicineClinicalrefillreview labs/ear irrigationappt , pt needs consult to discuss compression fracture T8 seen on CT scanNeurosurgery Office NotesClinical/ear lobesupdates/p thoracic MRI secondary to T8 compression fractureClinicalClinicalreview labs/possible ear irrigationClinical Care Team (unrecognized sect ion and content) Team Status: Active Member Role Status Dates Josiah Samuel DO Primary Care Provider Active Team Status: Inactive Member Role Status Dates Josiha Samuel DO Primary Care Provider Active PITO Musa Attending Provider Active Goals (unrecognized section and content) Goals may be documented in a n alternate section FOR RECORDS PERTAINING TO PATIENTS WHO ARE OR HAVE BEEN ENROLLED IN A CHEMICAL DEPENDENCY/SUBSTANCEABUSE PROGRAM, SOME INFORMATION MAY BE OMITTED. This clinical summary was aggregated from multiple sources. Caution should be exercised in using it in the provision of clinical care. This summary normalizes information from multiple sources, and as a consequence, information in this document may materially change the coding, format and clinical context of patient data. In addition, data may be omitted in some cases. CLINICAL DECISIONS SHOULD BE BASED ON THE PRIMARY CLINICAL RECORDS. [facility] [employer] [facility]. provides no warranty or guarantee of the accuracy or completeness of information in this document.
[2023-09-28 09:03] LABS: Basophils Absolute Auto 0.1 10^3/uL (0.0-0.1); Basophils Percent Auto 1.8 % (0.2-2.0); Eosinophils Absolute Auto 0.3 10^3/uL (0.0-0.7); Eosinophils Percent Auto 3.8 % (0.9-7.0); Hemoglobin 11.7 g/dL (12.0-16.0); Immature Granulocytes Abs Auto 0.02 10^3/uL (0.00-0.03); Immature Granulocytes Pct Auto 0.3 % (0.0-0.5); Lymphocytes Percent Auto 14.9 % (20.5-60.0); Mean Corpuscular HGB Conc 31.6 g/dL (29.9-35.2); Mean Corpuscular Hemoglobin 30.8 pg (26.7-34.0); Mean Corpuscular Volume 97.4 fL (81.0-99.0); Mean Platelet Volume 9.1 fL (9.5-13.5); Monocytes Absolute Auto 0.7 10^3/uL (0.3-0.8); Monocytes Percent Auto 9.5 % (1.7-12.0); Neutrophils Absolute Auto 4.8 10^3/uL (1.4-6.5); Neutrophils Percent Auto 69.7 % (43.0-75.0); Platelet Count 255 10^3/uL (150-450); Red Cell Distribution Width 12.8 % (11.0-15.0); White Blood Count 6.8 10^3/uL (4.0-11.0)
[2023-09-28 09:17] LABS: Bilirubin Urine MODERATE (NEGATIVE); Blood Urine NEGATIVE (NEGATIVE); Clarity Urine CLEAR (CLEAR); Color Urine LT. YELLOW (YELLOW); Glucose Urine UA NEGATIVE (NEGATIVE); Ketones Urine NEGATIVE (NEGATIVE); Leukocyte Esterase Urine SMALL (NEGATIVE); Nitrite Urine NEGATIVE (NEGATIVE); Protein Urine NEGATIVE (NEG/TRACE); Specific Gravity Urine <=1.005 (1.005-1.025); Urobilinogen Urine 0.2 EU/dL (0.2-1.0)
[2023-09-28 09:20] LABS: Erythrocyte Sedimentation Rate 67 mm/hr (<=30)
[2023-09-28 09:31] LABS: Bacteria Urine NONE SEEN #/HPF (NONE SEEN); RBC Urine NONE SEEN #/HPF (0-2); Squamous Epithelial Cell Urine MODERATE #/LPF (NONE/RARE); WBC Urine 0-2 #/HPF (NONE SEEN)
[2023-09-28 09:32] LABS: Mucus Urine NONE SEEN (NONE SEEN)
[2023-09-28 10:39] LABS: Alanine Aminotransferase 29 U/L (14-59); Albumin Globulin Ratio 0.9; Albumin Level 3.3 g/dL (3.4-5.0); Alkaline Phosphatase 63 U/L (46-116); Anion Gap 12.7; Aspartate Amino Transferase 24 U/L (15-37); Bilirubin Total 0.4 mg/dL (0.2-1.0); Calcium 8.7 mg/dL (8.5-10.1); Carbon Dioxide 27.4 mmol/L (21.0-32.0); Chloride 103 mmol/L (98-107); Estimated GFR (African America >60 (>=60); Estimated GFR (Non-African Ame >60 (>=60); Globulin 3.6 g/dL; Glucose 86 mg/dL (74-106); Potassium 4.1 mmol/L (3.5-5.1); Sodium 139 mmol/L (136-145); Total Protein 6.9 g/dL (6.4-8.2)
[2023-09-29 05:07] LABS: Complement C3, Serum 138 mg/dL (82-167); Complement C4, Serum 28 mg/dL (12-38)
[2023-09-29 15:09] LABS: Complement, Total (CH50) >60 U/mL (>41)
== END 2023-09-28 08:16 | disposition home or self-care (01) ==
LOC: LAB 08:17
PROVIDERS: PCP Family Medicine; Visit Provider Internal Medicine Rheumatology
DX: M35.1 Other overlap syndromes (principal); M15.0 Primary generalized (osteo)arthritis; Z79.899 Other long term (current) drug therapy
CPT/HCPCS: 36415; 80053; 81001; 85025; 85652; 86160; 86162

== ENCOUNTER 2023-10-26 08:39 | Outpatient (OUT) | payer MEDICARE, SELFPAY ==
--- OUTSIDE RECORDS SUMMARY | 2023-10-26 08:55 | XMS_ITS | CCD ---
Author Organization [facility] Care Team Providers Care Supervisor Paper Machine Name Role Phone Casandra Chopra Unavailable Casandra [...] Unavailable DANY, MARSHALL Admitting Unavailable MISC, DR CUMMINS Consulting Unavailable GIRVIN, DR GUAJARDO Consulting Unavailable [...] Unavailable DO Josiah Samuel Primary Care Provider PITO Manuel Attending Provider AbhijitJessica schusterEva Unavailable Germaine Manuel Attending Unavailable Germaine Manuel Admitting Unavailable Josiah Samuel Primary Care Unavailable Allergies Allergy Classification Reported Allergen(s) Allergy Type Date of Onset Reaction(s) Facility (20 sources) buPROPion; Translations: [Bupropion] Drug Allergy Anxiety (finding) [facility] Other (19 sources) traMADol Drug Allergy constipation [facility]. Other (1 source) Acetaminophen / HYDROcodone Drug Allergy [facility] Repository Medications Current Medications Medication Drug Class(es) Dates Sig (Normalized) Sig (Original) 8 hr acetaminophen 650 mg extended release oral tablet (16 sources) take 2 tablets by mouth every eight hours as needed Tylenol 8 Hour Arthritis Pain 650 MG 2 tablets as needed Orally every 8 hrs Active [id number] 200 actuat albuterol 0.09 mg/actuat metered dose [...] spray(s) nasal route twic e daily Ipratropium [place] 0.03 % 2 sprays in each nostril [...] mri xrayon 02-19 XR pre/post mri xray [facility] Main [place] [address] [place] [address] MRI Report Signed Patient: Genna Herrera MR#: [id number] 52 : 1950 Acct:[id number] Age/Sex: 72 / F ADM Date: 02/19/23 Loc: MR Room: Type: [facility] CLI Attending Dr: Germaine SHELDON Copies to: PITO Toure Ordering Provider: PITO Toure Date of Service: 02/19/23 MR/MR thoracic spine wo con: S22.060a ([id number]) XR/XR pre/post mri xray: S22.060a MR thoracic [...] David Corley M.D.02/19/2023 8:19 PM Dictation Location: [place] [address] Transcribed By: [facility] 02/19/232018 Dictated By: David Corley II, MD 02/19/232008 Signed By: 02/19/232018 [facility] CT LUNG CANCER SCREENINGon 0 12-03-2022 [...] MARII TURCIOS Date: 2022-12-03 08:20 Normal [facility] CBC AUTO DIFFon 10-22-2022 BASO # 0.1 103/ul Normal 0.0-0.1 [facility] Comment on above: Performed By: #### C BC #### [facility] [address] [place] [address] Dr. Renato Weller Basophils/100 WBC (Bld) 1.5 % Normal 0.2-2.0 [facility] Comment on above: Performed By: #### C BC #### [facility] [address] [place] [address] Dr. Renato Weller EO # 0.1 103/ul Normal 0.0-0.7 [facility] Comment on above: Performed By: #### C BC #### [facility] [address] [place] [address] Dr. Renato Weller Eosinophils/100 WBC (Bld) 1.4 % Normal 0.9-7.0 [facility] Comment on above: Performed By: #### C BC #### [facility] [address] [place] [address] Dr. Renato Weller Erythrocyte distribution width (RBC) [Ratio] 13.4 % Normal 11.0-15.0 [facility] Comment on above: Performed By: #### C BC #### [facility] [address] [place] [address] Dr. Renato Weller Hematocrit (Bld) [Volume fraction] 40.8 % Normal 36.0-48.0 [facility] Comment on above: Performed By: #### C BC #### [facility] [address] [place] [address] Dr. Renato Weller Hemoglobin (Bld) [Mass/Vol] 12.9 g/dL Normal 12.0-16.0 [facility] Comment on above: Performed By: #### C BC #### [facility] [address] [place] [address] Dr. Renato Weller IG # 0.01 10e3/ul Normal 0.00-0.03 [facility] Comment on above: Performed By: #### C BC #### [facility] [address] [place] [address] Dr. Renato Weller IG % 0.2 % Normal 0.0-0.5 [facility] Comment on above: Performed By: #### C BC #### [facility] [address] [place] [address] Dr. Renato Weller LYMPH # 1.0 103/ul Critically low 1.2-3.8 [facility] Comment on above: Performed By: #### C BC #### [facility] [address] [place] [address] Dr. Renato Weller Lymphocytes/100 WBC (Bld) 16.2 % Critically low 20.5-60.0 [facility] Comment on above: Performed By: #### C BC #### [facility] [address] [place] [address] Dr. Renato Weller MANUAL DIFF REQ NO Normal [facility] Comment on above: Performed By: #### C BC #### [facility] [address] [place] [address] Dr. Renato Weller MCH (RBC) [Entitic mass] 30.2 pg Normal 26.7-34.0 [facility] Comment on above: Performed By: #### C BC #### [facility] [address] [place] [address] Dr. Renato Weller MCHC (RBC) [Mass/Vol] 31.6 g/dL Normal 29.9-35.2 [facility] Comment on above: Performed By: #### C BC #### [facility] [address] [place] [address] Dr. Renato Weller MCV (RBC) [Entitic vol] 95.6 fL Normal 81.0-99.0 [facility] Comment on above: Performed By: #### C BC #### [facility] [address] [place] [address] Dr. Renato Weller MONO # 0.5 103/ul Normal 0.3-0.8 [facility] Comment on above: Performed By: #### C BC #### [facility] [address] [place] [address] Dr. Renato Weller Monocytes/100 WBC (Bld) 8.2 % Normal 1.7-12.0 [facility] Comment on above: Performed By: #### C BC #### [facility] [address] [place] [address] Dr. Renato Weller NEUT # 4.3 103/ul Normal 1.4-6.5 [facility] Comment on above: Performed By: #### C BC #### [facility] [address] [place] [address] Dr. Renato Weller Neutrophils/100 WBC (Bld) 72.5 % Normal 43.0-75.0 [facility] Comment on above: Performed By: #### C BC #### [facility] [address] [place] [address] Dr. Renato Weller Platelet mean volume (Bld) [Entitic vol] 9.4 fL Critically low 9.5-13.5 [facility] Comment on above: Performed By: #### C BC #### [facility] [address] [place] [address] Dr. Renato Weller PLT 206 103/ul Normal 150-450 [facility] Comment on above: Performed By: #### C BC #### [facility] [address] [place] [address] Dr. Renato Weller RBC 4.27 106/ul Normal 4.20-5.40 [facility] Comment on above: Performed By: #### C BC #### [facility] [address] [place] [address] Dr. Renato Weller WBC 5.9 103/ul Normal 4.0-11.0 [facility] Comment on above: Performed By: #### C BC #### [facility] [address] [address] [address] Renato Weller LIPID PROFILEon 10-22-2022 CHOL-HDL RATIO NORM SEE BELOW Normal [facility] Comment on above: Result Comment: 3.3 - 4.4 LOW RISK 4.4 - 7.1 AVERAGE RISK 7.1 - 11.0 MODERATE RISK >11.0 HIGH RISK Performed By: #### L IPID, CMP #### [facility] [address] [place] [address] [address] Renato Weller Cholesterol [Mass/Vol] 162 mg/dL Normal <=200 [facility] Comment on above: Performed By: #### L IPID, CMP #### [facility] [address] [place] [address] [address] Renato Weller Cholesterol in HDL [Mass/Vol] 69 mg/dL Critically high 40-60 [facility] Comment on above: Performed By: #### L IPID, CMP #### [facility] [address] [place] [address] [address] Renato Weller Cholesterol in LDL [Mass/Vol] 81.8 mg/dL Normal [facility] Comment on above: Performed By: #### L IPID, CMP #### [facility] [address] [place] [address] [address] Renato Weller Cholesterol.total/C holesterol in HDL [Mass ratio] 2.3 {ratio} Normal [facility] Comment on above: Performed By: #### L IPID, CMP #### [facility] [address] [place] [address] [address] Renato Weller HDL NORMAL > or = 60 mg/dl - LO W CARDIOVASCULAR RISK <40 mg/dl - HIGH CARDIOVASCULAR RISK Normal [facility] Comment on above: Performed By: #### L IPID, CMP #### [facility] [address] [place] [address] [address] Renato Weller LDL CALC NORMAL SEE BELOW Normal [facility] Comment on above: Result Comment: <100 mg/dl OPTIMAL 100 - 129 mg/dl NEAR OR ABOVE OPTIMAL 130 - 159 mg/dl BORDERLINE HIGH 160 - 189 mg/dl HIGH >190 mg/dl VERY HIGH Performed By: #### L IPID, CMP #### [facility] [address] [place] [address] Dr. Renato Weller Triglyceride [Mass/Vol] 56 mg/dL Normal <=150 [facility] Comment on above: Performed By: #### L IPID, CMP #### [facility] [address] [place] [address] Dr. Renato Weller VLDL CALC 11.2 mg/dL Normal [facility] Comment on above: Performed By: #### L IPID, CMP #### [facility] [address] [place] [address] Dr. Renato Weller PROF 14(COMP METB)on 023 Albumin [Mass/Vol] 3.7 g/dL Normal 3.4-5.0 [facility] Comment on above: Performed By: #### L IPID, CMP #### [facility] [address] [place] [address] Dr. Renato Weller Albumin/Globulin [Mass ratio] 1.1 {ratio} Normal [facility] Comment on above: Performed By: #### L IPID, CMP #### [facility] [address] [place] [address] Dr. Reanto Weller ALP [Catalytic activity/Vol] 36 U/L Critically low 46-116 [facility] Comment on above: Performed By: #### L IPID, CMP #### [facility] [address] [place] [address] Dr. Renato Weller ALT [Catalytic activity/Vol] 24 U/L Normal 14-59 [facility] Comment on above: Performed By: #### L IPID, CMP #### [facility] [address] [place] [address] Dr. Renato Weller Anion gap [Moles/Vol] 12.2 mmol/L Normal [facility] Comment on above: Performed By: #### L IPID, CMP #### [facility] [address] [place] [address] Dr. Renato Weller AST [Catalytic activity/Vol] 18 U/L Normal 15-37 [facility] Comment on above: Performed By: #### L IPID, CMP #### [facility] [address] [place] [address] [address] Renato Weller Bilirubin [Mass/Vol] 0.3 mg/dL Normal 0.2-1.0 [facility] Comment on above: Performed By: #### L IPID, CMP #### [facility] [address] [place] [address] Dr. Renato Weller Calcium [Mass/Vol] 9.0 mg/dL Normal 8.5-10.1 [facility] Comment on above: Performed By: #### L IPID, CMP #### [facility] [address] [place] [address] Dr. Renato Weller Chloride [Moles/Vol] 102 mmol/L Normal 98-107 [facility] Comment on above: Performed By: #### L IPID, CMP #### [facility] [address] [place] [address] Dr. Renato Weller CO2 [Moles/Vol] 29.1 mmol/L Normal 21.0-32.0 [facility] Comment on above: Performed By: #### L IPID, CMP #### [facility] [address] [place] [address] Dr. Renato Weller Creatinine [Mass/Vol] 0.83 mg/dL Normal 0.55-1.02 [facility] Comment on above: Performed By: #### L IPID, CMP #### [facility] [address] [place] [address] Dr. Renato Weller EGFR-AF POLISH >60 Normal >=60 [facility] Comment on above: Performed By: #### L IPID, CMP #### [facility] [address] [place] [address] Dr. Renato Weller EGFR-NON AF POLISH >60 Normal >=60 [facility] Comment on above: Performed By: #### L IPID, CMP #### [facility] [address] [place] [address] Dr. Renato Weller Globulin (S) [Mass/Vol] 3.5 g/dL Normal [facility] Comment on above: Performed By: #### L IPID, CMP #### [facility] [address] [place] [address] [address] Renato Weller Glucose [Mass/Vol] 85 mg/dL Normal 74-106 [facility] Comment on above: Performed By: #### L IPID, CMP #### [facility] [address] [place] [address] Dr. Renato Weller Potassium [Moles/Vol] 4.3 mmol/L Normal 3.5-5.1 [facility] Comment on above: Performed By: #### L IPID, CMP #### [facility] [address] [place] [address] Dr. Renato Weller Protein [Mass/Vol] 7.2 g/dL Normal 6.4-8.2 [facility] Comment on above: Performed By: #### L IPID, CMP #### [facility] [address] [place] [address] Dr. Renato Weller Sodium [Moles/Vol] 139 mmol/L Normal 136-145 [facility] Comment on above: Performed By: #### L IPID, CMP #### [facility] [address] [place] [address] Dr. Renato Weller Urea nitrogen [Mass/Vol] 14.0 mg/dL Normal 7.0-18.0 [facility] Comment on above: Performed By: #### L IPID, CMP #### [facility] [address] [place] [address] Dr. Renato Weller Urea nitrogen/Creatinine [Mass ratio] 16.9 mg/mg Normal [facility] Comment on above: Performed By: #### L IPID, CMP #### [facility] [address] [place] [address] Dr. Renato Weller C3 and C4 COMPLEMENTon 08-19 Complement C3, Serum 110 mg/dL Normal 82-167 [facility] Comment on above: Performed By: #### U AMIC #### [facility] [address] [place] [address] Dr. Renato Weller Complement C4, Serum 20 mg/dL Normal 12-38 [facility] Comment on above: Performed By: #### U AMIC #### [facility] [address] [place] [address] Dr. Renato Weller COMPLEMENT TOTAL (CH50)on Complement, Total (CH50) >60 Normal >41 [facility] Comment on above: Result Comment: Age [...] values. Performed By: #### C H50T #### [facility] [address] [place] [address] Dr. Renato Weller CBC AUTO DIFFon 08-18-2022 BASO # 0.1 103/ul Normal 0.0-0.1 [facility] Comment on above: Performed By: #### C H50T #### [facility] [address] [place] [address] Dr. Renato Weller Basophils/100 WBC (Bld) 1.8 % Normal 0.2-2.0 [facility] Comment on above: Performed By: #### C H50T #### [facility] [address] [place] [address] Dr. Renato Weller EO # 0.1 103/ul Normal 0.0-0.7 [facility] Comment on above: Performed By: #### C H50T #### [facility] [address] [place] [address] Dr. Renato Weller Eosinophils/100 WBC (Bld) 1.8 % Normal 0.9-7.0 [facility] Comment on above: Performed By: #### C H50T #### [facility] [address] [place] [address] Dr. Renato Weller Erythrocyte distribution width (RBC) [Ratio] 13.2 % Normal 11.0-15.0 [facility] Comment on above: Performed By: #### C H50T #### [facility] [address] [place] [address] Dr. Renato Weller Hematocrit (Bld) [Volume fraction] 39.9 % Normal 36.0-48.0 [facility] Comment on above: Performed By: #### C H50T #### [facility] [address] [place] [address] Dr. Renato Weller Hemoglobin (Bld) [Mass/Vol] 13.2 g/dL Normal 12.0-16.0 [facility] Comment on above: Performed By: #### C H50T #### [facility] [address] [place] [address] Dr. Renato Weller IG # 0.02 10e3/ul Normal 0.00-0.03 [facility] Comment on above: Performed By: #### C H50T #### [facility] [address] [place] [address] Dr. Renato Weller IG % 0.4 % Normal 0.0-0.5 [facility] Comment on above: Performed By: #### C H50T #### [facility] [address] [place] [address] Dr. Renato Weller LYMPH # 1.1 103/ul Critically low 1.2-3.8 [facility] Comment on above: Performed By: #### C H50T #### [facility] [address] [place] [address] Dr. Renato Weller Lymphocytes/100 WBC (Bld) 18.4 % Critically low 20.5-60.0 [facility] Comment on above: Performed By: #### C H50T #### [facility] [address] [place] [address] Dr. Renato Weller MANUAL DIFF REQ NO Normal [facility] Comment on above: Performed By: #### C H50T #### [facility] [address] [place] [address] Dr. Renato Weller MCH (RBC) [Entitic mass] 31.0 pg Normal 26.7-34.0 [facility] Comment on above: Performed By: #### C H50T #### [facility] [address] [place] [address] Dr. Renato Weller MCHC (RBC) [Mass/Vol] 33.1 g/dL Normal 29.9-35.2 [facility] Comment on above: Performed By: #### C H50T #### [facility] [address] [place] [address] Dr. Renato Weller MCV (RBC) [Entitic vol] 93.7 fL Normal 81.0-99.0 [facility] Comment on above: Performed By: #### C H50T #### [facility] [address] [place] [address] Dr. Renato Weller MONO # 0.5 103/ul Normal 0.3-0.8 [facility] Comment on above: Performed By: #### C H50T #### [facility] [address] [place] [address] Dr. Renato Weller Monocytes/100 WBC (Bld) 8.6 % Normal 1.7-12.0 [facility] Comment on above: Performed By: #### C H50T #### [facility] [address] [place] [address] Dr. Renato Weller NEUT # 3.9 103/ul Normal 1.4-6.5 [facility] Comment on above: Performed By: #### C H50T #### [facility] [address] [place] [address] Dr. Renato Weller Neutrophils/100 WBC (Bld) 69.0 % Normal 43.0-75.0 [facility] Comment on above: Performed By: #### C H50T #### [facility] [address] [place] [address] Dr. Renato Weller Platelet mean volume (Bld) [Entitic vol] 9.4 fL Critically low 9.5-13.5 [facility] Comment on above: Performed By: #### C H50T #### [facility] [address] [place] [address] Dr. Renato Weller PLT 191 103/ul Normal 150-450 [facility] Comment on above: Performed By: #### C H50T #### [facility] [address] [place] [address] Dr. Renato Weller RBC 4.26 106/ul Normal 4.20-5.40 [facility] Comment on above: Performed By: #### C H50T #### [facility] [address] [place] [address] Dr. Renato Weller WBC 5.7 103/ul Normal 4.0-11.0 [facility] Comment on above: Performed By: #### C H50T #### [facility] [address] [place] [address] Dr. Renato Weller MAGNESIUMon 08-18-2022 Magnesium [Mass/Vol] 2.1 mg/dL Normal 1.8-2.4 [facility] Comment on above: Performed By: #### L IPID, CMP #### [facility] [address] [place] [address] Dr. Renato Weller PHOSPHORUSon 08-18-2022 Phosphate [Mass/Vol] 3.5 mg/dL Normal 2.6-4.7 [facility] Comment on above: Performed By: #### L IPID, CMP #### [facility] [address] [place] [address] Dr. Renato Weller PROF 14(COMP METB)on 023 Albumin [Mass/Vol] 3.7 g/dL Normal 3.4-5.0 [facility] Comment on above: Performed By: #### L IPID, CMP #### [facility] [address] [place] [address] Dr. Renato Weller Albumin/Globulin [Mass ratio] 1.2 {ratio} Normal [facility] Comment on above: Performed By: #### L IPID, CMP #### [facility] [address] [place] [address] Dr. Renato Weller ALP [Catalytic activity/Vol] 37 U/L Critically low 46-116 [facility] Comment on above: Performed By: #### L IPID, CMP #### [facility] [address] [address] [address] Renato Weller ALT [Catalytic activity/Vol] 18 U/L Normal 14-59 [facility] Comment on above: Performed By: #### L IPID, CMP #### [facility] [address] [address] [address] Renato Weller Anion gap [Moles/Vol] 13.5 mmol/L Normal [facility] Comment on above: Performed By: #### L IPID, CMP #### [facility] [address] [address] [address] Renato Weller AST [Catalytic activity/Vol] 19 U/L Normal 15-37 [facility] Comment on above: Performed By: #### L IPID, CMP #### [facility] [address] [address] [address] Renato Weller Bilirubin [Mass/Vol] 0.4 mg/dL Normal 0.2-1.0 [facility] Comment on above: Performed By: #### L IPID, CMP #### [facility] [address] [address] [address] Renato Weller Calcium [Mass/Vol] 8.7 mg/dL Normal 8.5-10.1 [facility] Comment on above: Performed By: #### L IPID, CMP #### [facility] [address] [address] [address] Renato Weller Chloride [Moles/Vol] 104 mmol/L Normal 98-107 [facility] Comment on above: Performed By: #### L IPID, CMP #### [facility] [address] [address] [address] Renato Weller CO2 [Moles/Vol] 27.8 mmol/L Normal 21.0-32.0 [facility] Comment on above: Performed By: #### L IPID, CMP #### [facility] [address] [address] [address] Renato Weller Creatinine [Mass/Vol] 0.67 mg/dL Normal 0.55-1.02 [facility] Comment on above: Performed By: #### L IPID, CMP #### [facility] [address] [address] [address] Renato Weller EGFR-AF POLISH >60 Normal >=60 [facility] Comment on above: Performed By: #### L IPID, CMP #### [facility] [address] [address] [address] Renato Weller EGFR-NON AF POLISH >60 Normal >=60 [facility] Comment on above: Performed By: #### L IPID, CMP #### [facility] [address] [address] [address] Renato Weller Globulin (S) [Mass/Vol] 3.0 g/dL Normal [facility] Comment on above: Performed By: #### L IPID, CMP #### [facility] [address] [address] [address] Renato Weller Glucose [Mass/Vol] 87 mg/dL Normal 74-106 [facility] Comment on above: Performed By: #### L IPID, CMP #### [facility] [address] [address] [address] Renato Weller Potassium [Moles/Vol] 4.3 mmol/L Normal 3.5-5.1 [facility] Comment on above: Performed By: #### L IPID, CMP #### [facility] [address] [address] [address] Renato Weller Protein [Mass/Vol] 6.7 g/dL Normal 6.4-8.2 [facility] Comment on above: Performed By: #### L IPID, CMP #### [facility] [address] [address] [address] Renato Weller Sodium [Moles/Vol] 141 mmol/L Normal 136-145 [facility] Comment on above: Performed By: #### L IPID, CMP #### [facility] [address] [address] [address] Renato Weller Urea nitrogen [Mass/Vol] 11.0 mg/dL Normal 7.0-18.0 [facility] Comment on above: Performed By: #### L IPID, CMP #### [facility] [address] [address] [address] Renato Weller Urea nitrogen/Creatinine [Mass ratio] 16.4 mg/mg Normal [facility] Comment on above: Performed By: #### L IPID, CMP #### [facility] [address] [address] [address] Renato Weller SED RATE WESTERGRENon 2022 SED RATE 43 mm/hr Critically high <=30 [facility] Comment on above: Performed By: #### S EDR #### [facility] [address] [address] [address] Renato Weller UA RANDOM W/MICROSCOPICon BACTERIA NONE SEEN Normal NONE SEEN [facility] Comment on above: Performed By: #### U AMIC #### [facility] [address] [place] [address] Dr. Renato Weller Bilirubin Ql (U) LARGE Abnormal NEGATIVE [facility] Comment on above: Performed By: #### U AMIC #### [facility] [address] [place] [address] Dr. Renato Weller CAST NONE SEEN Normal NONE SEEN [facility] Comment on above: Performed By: #### U AMIC #### [facility] [address] [address] [address] eRnato Weller Clarity (U) CLEAR Normal CLEAR [facility] Comment on above: Performed By: #### U AMIC #### [facility] [address] [place] [address] Dr. Renato Weller Color (U) LT. YELLOW Normal YELLOW [facility] Comment on above: Performed By: #### U AMIC #### [facility] [address] [place] [address] Dr. Renato Weller Crystals LM Nom (Urine sed) NONE SEEN Normal NONE SEEN [facility] Comment on above: Performed By: #### U AMIC #### [facility] [address] [place] [address] Dr. Renato Weller Epithelial cells LM Ql (Urine sed) NONE SEEN Normal NONE SEEN /RARE [facility] Comment on above: Performed By: #### U AMIC #### [facility] [address] [address] [address] Renato Weller Glucose Ql (U) Negative Normal NEGATIVE [facility] Comment on above: Performed By: #### U AMIC #### [facility] [address] [address] [address] Renato Weller Hemoglobin Ql (U) Negative Normal NEGATIVE [facility] Comment on above: Performed By: #### U AMIC #### [facility] [address] [address] [address] Renato Weller Ketones Ql (U) Negative Normal NEGATIVE [facility] Comment on above: Performed By: #### U AMIC #### [facility] [address] [address] [address] Renato Weller LEUKOCYTES SMALL Abnormal NEGATIVE [facility] Comment on above: Performed By: #### U AMIC #### [facility] [address] [address] [address] Renato Weller MUCOUS NONE SEEN Normal NONE SEEN [facility] Comment on above: Performed By: #### U AMIC #### [facility] [address] [address] [address] Renato Weller Nitrite Ql (U) Negative Normal NEGATIVE [facility] Comment on above: Performed By: #### U AMIC #### [facility] [address] [address] [address] Renato Weller pH (U) 7.0 [pH] Normal 5-9 [facility] Comment on above: Performed By: #### U AMIC #### [facility] [address] [address] [address] Renato Weller RBC 0-2 Normal 0-2 [facility] Comment on above: Performed By: #### U AMIC #### [facility] [address] [address] [address] Renato Weller SPEC GRAVITY 1.010 Normal 1.005-<=1.025 [facility] Comment on above: Performed By: #### U AMIC #### [facility] [address] [place] [address] Dr. Renato Weller UA PROTEIN Negative Normal NEGATIVE/ TRACE [facility] Comment on above: Performed By: #### U AMIC #### [facility] [address] [address] [address] Renato Weller Urobilinogen Qn (U) 0.2 {Paul'U}/dL Normal 0.2 - 1. 0 [facility] Comment on above: Performed By: #### U AMIC #### [facility] [address] [place] [address] Dr. Renato Weller WBC NONE SEEN Normal NONE SEEN [facility] Comment on above: Performed By: #### U AMIC #### [facility] [address] [place] [address] Dr. Renato Weller CULTURE URINEon 05-12-2022 CULTURE URINE Culture Observations : LIGHT GROWTH OF MIXED GENITAL ROMEL. NO POTENTIAL PATHOGENS SEEN. Normal [facility] Comment on above: Performed By: #### U AMIC #### [facility] [address] [place] [address] Dr. Renato Weller UA RANDOM W/MICROSCOPICon BACTERIA TRACE Abnormal NONE SEEN [facility] Comment on above: Performed By: #### C H50T #### [facility] [address] [place] [address] Dr. Renato Weller Bilirubin Ql (U) LARGE Abnormal NEGATIVE [facility] Comment on above: Performed By: #### C H50T #### [facility] [address] [place] [address] Dr. Renato Weller CAST NONE SEEN Normal NONE SEEN [facility] Comment on above: Performed By: #### C H50T #### [facility] [address] [place] [address] Dr. Renato Weller Clarity (U) CLEAR Normal CLEAR [facility] Comment on above: Performed By: #### C H50T #### [facility] [address] [place] [address] Dr. Renato Weller Color (U) LT. YELLOW Normal YELLOW [facility] Comment on above: Performed By: #### C H50T #### [facility] [address] [address] [address] Renato Weller Crystals LM Nom (Urine sed) NONE SEEN Normal NONE SEEN [facility] Comment on above: Performed By: #### C H50T #### [facility] [address] [address] [address] Renato Weller Epithelial cells LM Ql (Urine sed) MODERATE Abnormal NONE SEEN /RARE [facility] Comment on above: Performed By: #### C H50T #### [facility] [address] [address] [address] Renato Weller Glucose Ql (U) Negative Normal NEGATIVE [facility] Comment on above: Performed By: #### C H50T #### [facility] [address] [place] [address] Dr. Renato Weller Hemoglobin Ql (U) Negative Normal NEGATIVE [facility] Comment on above: Performed By: #### C H50T #### [facility] [address] [address] [address] Renato Weller Ketones Ql (U) Negative Normal NEGATIVE [facility] Comment on above: Performed By: #### C H50T #### [facility] [address] [place] [address] Dr. Renato Weller LEUKOCYTES SMALL Abnormal NEGATIVE [facility] Comment on above: Performed By: #### C H50T #### [facility] [address] [address] [address] Renato Weller MUCOUS NONE SEEN Normal NONE SEEN [facility] Comment on above: Performed By: #### C H50T #### [facility] [address] [address] [address] Renato Weller Nitrite Ql (U) Negative Normal NEGATIVE [facility] Comment on above: Performed By: #### C H50T #### [facility] [address] [place] [address] Dr. Renato Weller pH (U) 6.0 [pH] Normal 5-9 [facility] Comment on above: Performed By: #### C H50T #### [facility] [address] [address] [address] Renato Weller RBC 0-2 Normal 0-2 [facility] Comment on above: Performed By: #### C H50T #### [facility] [address] [place] [address] Dr. Renato Weller SPEC GRAVITY 1.025 Normal 1.005-<=1.025 [facility] Comment on above: Performed By: #### C H50T #### [facility] [address] [place] [address] Dr. Renato Weller UA PROTEIN Negative Normal NEGATIVE/ TRACE [facility] Comment on above: Performed By: #### C H50T #### [facility] [address] [place] [address] Dr. Renato Weller Urobilinogen Qn (U) 0.2 {Paul'U}/dL Normal 0.2 - 1. 0 [facility] Comment on above: Performed By: #### C H50T #### [facility] [address] [place] [address] Dr. Renato Weller WBC 5-10 Abnormal NONE SEEN [facility] Comment on above: Performed By: #### C H50T #### [facility] [address] [place] [address] Dr. Renato Weller CULTURE URINEon 05-02-2022 CULTURE URINE Culture Observations : MODERATE GROWTH OF MIXED GENITAL ROMEL. PLEASE RESUBMIT CLEAN CATCH MID-STREAM URINE IF CLINICALLY INDICATED. Normal [facility] Comment on above: Performed By: #### U AMIC #### [facility] [address] [place] [address] Dr. Renato Weller UA RANDOM W/MICROSCOPICon BACTERIA LARGE Abnormal NONE SEEN [facility] Comment on above: Performed By: #### U AMIC #### [facility] [address] [place] [address] Dr. Renato Weller Bilirubin Ql (U) MODERATE Abnormal NEGATIVE [facility] Comment on above: Performed By: #### U AMIC #### [facility] [address] [address] [address] Renato Weller CAST NONE SEEN Normal NONE SEEN [facility] Comment on above: Performed By: #### U AMIC #### [facility] [address] [address] [address] Renato Weller Clarity (U) CLEAR Normal CLEAR [facility] Comment on above: Performed By: #### U AMIC #### [facility] [address] [address] [address] Renato Weller Color (U) LT. YELLOW Normal YELLOW [facility] Comment on above: Performed By: #### U AMIC #### [facility] [address] [address] [address] Renato Weller Crystals LM Nom (Urine sed) NONE SEEN Normal NONE SEEN [facility] Comment on above: Performed By: #### U AMIC #### [facility] [address] [place] [address] Dr. Renato Weller Epithelial cells LM Ql (Urine sed) MODERATE Abnormal NONE SEEN /RARE [facility] Comment on above: Performed By: #### U AMIC #### [facility] [address] [address] [address] Renato Weller Glucose Ql (U) Negative Normal NEGATIVE [facility] Comment on above: Performed By: #### U AMIC #### [facility] [address] [place] [address] Dr. Renato Weller Hemoglobin Ql (U) LARGE Abnormal NEGATIVE [facility] Comment on above: Performed By: #### U AMIC #### [facility] [address] [address] [address] Renato Weller Ketones Ql (U) Negative Normal NEGATIVE [facility] Comment on above: Performed By: #### U AMIC #### [facility] [address] [address] [address] Renato Weller LEUKOCYTES LARGE Abnormal NEGATIVE [facility] Comment on above: Performed By: #### U AMIC #### [facility] [address] [address] [address] Renato Weller MUCOUS NONE SEEN Normal NONE SEEN [facility] Comment on above: Performed By: #### U AMIC #### [facility] [address] [address] [address] Renato Weller Nitrite Ql (U) Negative Normal NEGATIVE [facility] Comment on above: Performed By: #### U AMIC #### [facility] [address] [address] [address] Renato Weller pH (U) 6.0 [pH] Normal 5-9 [facility] Comment on above: Performed By: #### U AMIC #### [facility] [address] [address] [address] Renato Weller RBC 5-10 Abnormal 0-2 [facility] Comment on above: Performed By: #### U AMIC #### [facility] [address] [place] [address] Dr. Renato Weller SPEC GRAVITY 1.020 Normal 1.005-<=1.025 [facility] Comment on above: Performed By: #### U AMIC #### [facility] [address] [place] [address] Dr. Renato Weller UA PROTEIN Negative Normal NEGATIVE/ TRACE [facility] Comment on above: Performed By: #### U AMIC #### [facility] [address] [place] [address] Dr. Renato Weller Urobilinogen Qn (U) 0.2 {Paul'U}/dL Normal 0.2 - 1. 0 [facility] Comment on above: Performed By: #### U AMIC #### [facility] [address] [place] [address] Dr. Renato Weller WBC 10-20 Abnormal NONE SEEN [facility] Comment on above: Performed By: #### U AMIC #### [facility] [address] [place] [address] Dr. Renato Weller XR CSPINE MIN 4 [...] CASANDRA DURAN Date: 2022-05-01 17:38 Normal [facility] C3 and C4 COMPLEMENTon 04-15 Complement C3, Serum 115 mg/dL Normal 82-167 [facility] Comment on above: Performed By: #### C H50T #### [facility] [address] [place] [address] Dr. Renato Weller Complement C4, Serum 23 mg/dL Normal 12-38 [facility] Comment on above: Performed By: #### C H50T #### [facility] [address] [place] [address] Dr. Renato Weller COMPLEMENT TOTAL (CH50)on Complement, Total (CH50) >60 Normal >41 [facility] Comment on above: Result Comment: Age [...] values. Performed By: #### C H50T #### [facility] [address] [place] [address] Dr. Renato Weller CBC AUTO DIFFon 04-14-2022 BASO # 0.1 103/ul Normal 0.0-0.1 [facility] Comment on above: Performed By: #### C H50T #### [facility] [address] [place] [address] Dr. Renato Weller Basophils/100 WBC (Bld) 1.6 % Normal 0.2-2.0 [facility] Comment on above: Performed By: #### C H50T #### [facility] [address] [place] [address] Dr. Renato Weller EO # 0.1 103/ul Normal 0.0-0.7 [facility] Comment on above: Performed By: #### C H50T #### [facility] [address] [place] [address] Dr. Renato Weller Eosinophils/100 WBC (Bld) 2.0 % Normal 0.9-7.0 [facility] Comment on above: Performed By: #### C H50T #### [facility] [address] [place] [address] Dr. Renato Weller Erythrocyte distribution width (RBC) [Ratio] 12.8 % Normal 11.0-15.0 [facility] Comment on above: Performed By: #### C H50T #### [facility] [address] [place] [address] Dr. Renato Weller Hematocrit (Bld) [Volume fraction] 40.0 % Normal 36.0-48.0 [facility] Comment on above: Performed By: #### C H50T #### [facility] [address] [place] [address] Dr. Renato Weller Hemoglobin (Bld) [Mass/Vol] 12.8 g/dL Normal 12.0-16.0 [facility] Comment on above: Performed By: #### C H50T #### [facility] [address] [place] [address] Dr. Renato Weller IG # 0.02 10e3/ul Normal 0.00-0.03 [facility] Comment on above: Performed By: #### C H50T #### [facility] [address] [place] [address] Dr. Renato Weller IG % 0.4 % Normal 0.0-0.5 [facility] Comment on above: Performed By: #### C H50T #### [facility] [address] [place] [address] Dr. Renato Weller LYMPH # 1.1 103/ul Critically low 1.2-3.8 [facility] Comment on above: Performed By: #### C H50T #### [facility] [address] [place] [address] Dr. Renato Weller Lymphocytes/100 WBC (Bld) 22.2 % Normal 20.5-60.0 [facility] Comment on above: Performed By: #### C H50T #### [facility] [address] [place] [address] Dr. Renato Weller MANUAL DIFF REQ NO Normal [facility] Comment on above: Performed By: #### C H50T #### [facility] [address] [place] [address] Dr. Renato Weller MCH (RBC) [Entitic mass] 31.3 pg Normal 26.7-34.0 [facility] Comment on above: Performed By: #### C H50T #### [facility] [address] [place] [address] Dr. Renato Weller MCHC (RBC) [Mass/Vol] 32.0 g/dL Normal 29.9-35.2 [facility] Comment on above: Performed By: #### C H50T #### [facility] [address] [place] [address] Dr. Renato Weller MCV (RBC) [Entitic vol] 97.8 fL Normal 81.0-99.0 [facility] Comment on above: Performed By: #### C H50T #### [facility] [address] [place] [address] Dr. Renato Weller MONO # 0.5 103/ul Normal 0.3-0.8 [facility] Comment on above: Performed By: #### C H50T #### [facility] [address] [place] [address] Dr. Renato Weller Monocytes/100 WBC (Bld) 9.8 % Normal 1.7-12.0 [facility] Comment on above: Performed By: #### C H50T #### [facility] [address] [place] [address] Dr. Renato Weller NEUT # 3.2 103/ul Normal 1.4-6.5 [facility] Comment on above: Performed By: #### C H50T #### [facility] [address] [place] [address] Dr. Renato Weller Neutrophils/100 WBC (Bld) 64.0 % Normal 43.0-75.0 [facility] Comment on above: Performed By: #### C H50T #### [facility] [address] [address] [address] Renato Weller Platelet mean volume (Bld) [Entitic vol] 9.3 fL Critically low 9.5-13.5 [facility] Comment on above: Performed By: #### C H50T #### [facility] [address] [address] [address] Renato Weller PLT 181 103/ul Normal 150-450 [facility] Comment on above: Performed By: #### C H50T #### [facility] [address] [address] [address] Renato Weller RBC 4.09 106/ul Critically low 4.20-5.40 [facility] Comment on above: Performed By: #### C H50T #### [facility] [address] [address] [address] Renato Weller WBC 5.0 103/ul Normal 4.0-11.0 [facility] Comment on above: Performed By: #### C H50T #### [facility] [address] [address] [address] Renato Weller LIPID PROFILEon 04-14-2022 CHOL-HDL RATIO NORM SEE BELOW Normal [facility] Comment on above: Result Comment: 3.3 - 4.4 LOW RISK 4.4 - 7.1 AVERAGE RISK 7.1 - 11.0 MODERATE RISK >11.0 HIGH RISK Performed By: #### T SH, LIPID #### [facility] [address] [address] [address] Renato Weller Cholesterol [Mass/Vol] 176 mg/dL Normal <=200 [facility] Comment on above: Performed By: #### T SH, LIPID #### [facility] [address] [address] [address] Renato Weller Cholesterol in HDL [Mass/Vol] 71 mg/dL Critically high 40-60 [facility] Comment on above: Performed By: #### T SH, LIPID #### [facility] [address] [address] [address] Renato Weller Cholesterol in LDL [Mass/Vol] 94.0 mg/dL Normal [facility] Comment on above: Performed By: #### T SH, LIPID #### [facility] [address] [address] [address] Renato Weller Cholesterol.total/C holesterol in HDL [Mass ratio] 2.5 {ratio} Normal [facility] Comment on above: Performed By: #### T SH, LIPID #### [facility] [address] [address] [address] Renato Weller HDL NORMAL > or = 60 mg/dl - LO W CARDIOVASCULAR RISK <40 mg/dl - HIGH CARDIOVASCULAR RISK Normal [facility] Comment on above: Performed By: #### T SH, LIPID #### [facility] [address] [address] [address] Renato Weller LDL CALC NORMAL SEE BELOW Normal [facility] Comment on above: Result Comment: <100 mg/dl OPTIMAL 100 - 129 mg/dl NEAR OR ABOVE OPTIMAL 130 - 159 mg/dl BORDERLINE HIGH 160 - 189 mg/dl HIGH >190 mg/dl VERY HIGH Performed By: #### T SH, LIPID #### [facility] [address] [address] [address] Renato Weller Triglyceride [Mass/Vol] 55 mg/dL Normal <=150 [facility] Comment on above: Performed By: #### T SH, LIPID #### [facility] [address] [place] [address] Dr. Renato Weller VLDL CALC 11.0 mg/dL Normal [facility] Comment on above: Performed By: #### T SH, LIPID #### [facility] [address] [place] [address] Dr. Renato Weller MG MAMM SCREEN 3D HERBERT CADon 04-14-2022 MG MAMM SCREEN 3D HERBERT CAD Patient: GENNA HERRERA Exam Date: 04/14/2022 : 1950 Gender:F Ordering : DR CASANDRA CHOPRA Admission #: [id number] Family : Order #: [id number] CLICK HERE TO VIEW EXAM RADIOLOGY REPORT [...] ovarian cancer at age 44. LOCATION: [facility] BREAST COMPOSITION: Scattered areas fibroglandular density. [...] on 04/14/2022 at 09:29 Approved by: Casandra Druan MD on 04/14/2022 at 09:31 Normal [facility] PROF 14(COMP METB)on 022 Albumin [Mass/Vol] 3.8 g/dL Normal 3.4-5.0 [facility] Comment on above: Performed By: #### C MP #### [facility] [address] [place] [address] Dr. Renato Weller Albumin/Globulin [Mass ratio] 1.2 {ratio} Normal [facility] Comment on above: Performed By: #### C MP #### [facility] [address] [place] [address] Dr. Renato Weller ALP [Catalytic activity/Vol] 41 U/L Critically low 46-116 [facility] Comment on above: Performed By: #### C MP #### [facility] [address] [place] [address] Dr. Renato Weller ALT [Catalytic activity/Vol] 23 U/L Normal 14-59 [facility] Comment on above: Performed By: #### C MP #### [facility] [address] [place] [address] Dr. Renato Weller Anion gap [Moles/Vol] 10.0 mmol/L Normal [facility] Comment on above: Performed By: #### C MP #### [facility] [address] [place] [address] Dr. Renato Weller AST [Catalytic activity/Vol] 20 U/L Normal 15-37 [facility] Comment on above: Performed By: #### C MP #### [facility] [address] [place] [address] Dr. Renato Weller Bilirubin [Mass/Vol] 0.4 mg/dL Normal 0.2-1.0 [facility] Comment on above: Performed By: #### C MP #### [facility] [address] [place] [address] Dr. Renato Weller Calcium [Mass/Vol] 8.5 mg/dL Normal 8.5-10.1 [facility] Comment on above: Performed By: #### C MP #### [facility] [address] [place] [address] Dr. Renato Weller Chloride [Moles/Vol] 104 mmol/L Normal 98-107 [facility] Comment on above: Performed By: #### C MP #### [facility] [address] [place] [address] Dr. Renato Weller CO2 [Moles/Vol] 29.0 mmol/L Normal 21.0-32.0 [facility] Comment on above: Performed By: #### C MP #### [facility] [address] [place] [address] Dr. Renato Weller Creatinine [Mass/Vol] 0.69 mg/dL Normal 0.55-1.02 [facility] Comment on above: Performed By: #### C MP #### [facility] [address] [place] [address] Dr. Renato Weller EGFR-AF POLISH >60 Normal >=60 [facility] Comment on above: Performed By: #### C MP #### [facility] [address] [place] [address] Dr. Renato Weller EGFR-NON AF POLISH >60 Normal >=60 [facility] Comment on above: Performed By: #### C MP #### [facility] [address] [address] [address] Renato Weller Globulin (S) [Mass/Vol] 3.2 g/dL Normal [facility] Comment on above: Performed By: #### C MP #### [facility] [address] [address] [address] Renato Weller Glucose [Mass/Vol] 84 mg/dL Normal 74-106 [facility] Comment on above: Performed By: #### C MP #### [facility] [address] [address] [address] Renato Weller Potassium [Moles/Vol] 4.0 mmol/L Normal 3.5-5.1 [facility] Comment on above: Performed By: #### C MP #### [facility] [address] [place] [address] Dr. Renato Weller Protein [Mass/Vol] 7.0 g/dL Normal 6.4-8.2 [facility] Comment on above: Performed By: #### C MP #### [facility] [address] [place] [address] Dr. Renato Weller Sodium [Moles/Vol] 139 mmol/L Normal 136-145 [facility] Comment on above: Performed By: #### C MP #### [facility] [address] [place] [address] Dr. Renato Weller Urea nitrogen [Mass/Vol] 16.0 mg/dL Normal 7.0-18.0 [facility] Comment on above: Performed By: #### C MP #### [facility] [address] [place] [address] Dr. Renato Weller Urea nitrogen/Creatinine [Mass ratio] 23.2 mg/mg Normal [facility] Comment on above: Performed By: #### C MP #### [facility] [address] [place] [address] Dr. Renato Weller SED RATE [facility] 2021 SED RATE 16 mm/hr Normal <=30 [facility] Comment on above: Performed By: #### U AMIC #### [facility] [address] [place] [address] Dr. Renato Weller TSHon 04-14-2022 TSH 3.056 uIU/mL Normal 0.358-3.740 [facility] Comment on above: Performed By: #### T SH, LIPID #### [facility] [address] [place] [address] Dr. Renato Weller UA RANDOM W/MICROSCOPICon BACTERIA MODERATE Abnormal NONE SEEN [facility] Comment on above: Performed By: #### C H50T #### [facility] [address] [place] [address] Dr. Renato Weller Bilirubin Ql (U) LARGE Abnormal NEGATIVE [facility] Comment on above: Performed By: #### C H50T #### [facility] [address] [place] [address] Dr. eRnato Weller CAST NONE SEEN Normal NONE SEEN [facility] Comment on above: Performed By: #### C H50T #### [facility] [address] [place] [address] Dr. Renato Weller Clarity (U) CLEAR Normal CLEAR [facility] Comment on above: Performed By: #### C H50T #### [facility] [address] [place] [address] Dr. Renato Weller Color (U) LT. YELLOW Normal YELLOW [facility] Comment on above: Performed By: #### C H50T #### [facility] [address] [place] [address] Dr. Renato Weller Crystals LM Nom (Urine sed) NONE SEEN Normal NONE SEEN [facility] Comment on above: Performed By: #### C H50T #### [facility] [address] [place] [address] Dr. Renato Weller Epithelial cells LM Ql (Urine sed) MANY Abnormal NONE SEEN /RARE [facility] Comment on above: Performed By: #### C H50T #### [facility] [address] [place] [address] Dr. Renato Weller Glucose Ql (U) Negative Normal NEGATIVE [facility] Comment on above: Performed By: #### C H50T #### [facility] [address] [address] [address] Renato Weller Hemoglobin Ql (U) Negative Normal NEGATIVE [facility] Comment on above: Performed By: #### C H50T #### [facility] [address] [place] [address] Dr. Renato Weller Ketones Ql (U) Negative Normal NEGATIVE [facility] Comment on above: Performed By: #### C H50T #### [facility] [address] [place] [address] Dr. Renato Weller LEUKOCYTES LARGE Abnormal NEGATIVE [facility] Comment on above: Performed By: #### C H50T #### [facility] [address] [place] [address] Dr. Renato Weller MUCOUS NONE SEEN Normal NONE SEEN [facility] Comment on above: Performed By: #### C H50T #### [facility] [address] [place] [address] Dr. Renato Weller Nitrite Ql (U) Negative Normal NEGATIVE [facility] Comment on above: Performed By: #### C H50T #### [facility] [address] [place] [address] Dr. Renato Weller pH (U) 6.0 [pH] Normal 5-9 [facility] Comment on above: Performed By: #### C H50T #### [facility] [address] [place] [address] Dr. Renato Weller RBC 2-5 Abnormal 0-2 [facility] Comment on above: Performed By: #### C H50T #### [facility] [address] [place] [address] Dr. Renato Weller SPEC GRAVITY 1.025 Normal 1.005-<=1.025 [facility] Comment on above: Performed By: #### C H50T #### [facility] [address] [place] [address] Dr. Renato Weller UA PROTEIN Negative Normal NEGATIVE/ TRACE [facility] Comment on above: Performed By: #### C H50T #### [facility] [address] [address] [address] Renato Weller Urobilinogen Qn (U) 0.2 {Paul'U}/dL Normal 0.2 - 1. 0 [facility] Comment on above: Performed By: #### C H50T #### [facility] [address] [address] [address] Renato Weller WBC 10-20 Abnormal NONE SEEN [facility] Comment on above: Performed By: #### C H50T #### [facility] [address] [address] [address] Renato Weller RAD - CT Reporton 02-26-2022 RAD - CT Report [id number]:[id number] Normal [facility] CT ABDOMEN WO CONTRASTon CT ABDOMEN [...] MARII TURCIOS Date: 2022-02-19 17:17 Normal [facility] Ambulatory Visit Summaryon 0 02-04-2022 Ambulatory [...] Varicose veins of legs Ventral hernia Normal [facility] Physician Referralon 022 Physician Referral [id number]:[id number] Normal [facility] XR DEXA BONE DENSITYon 12-30 XR [...] by: CASANDRA DURAN Date: 2021-12-30 16:10 Normal [facility] C3 and C4 COMPLEMENTon 12-17 Complement C3, Serum 122 mg/dL Normal 82-167 [facility] Comment on above: Performed By: #### C SUITE #### [facility] [address] [place] [address] Dr. Renato Weller Complement C4, Serum 24 mg/dL Normal 12-38 [facility] Comment on above: Performed By: #### C SUITE #### [facility] [address] [place] [address] Dr. Renato Weller COMPLEMENT TOTAL (CH50)on Complement, Total (CH50) >60 Normal >41 [facility] Comment on above: Result Comment: Age [...] values. Performed By: #### C H50T #### [facility] [address] [place] [address] Dr. Renato Weller CBC AUTO DIFFon 12-16-2021 BASO # 0.1 103/ul Normal 0.0-0.1 [facility] Comment on above: Performed By: #### L IPID, CMP #### [facility] [address] [place] [address] Dr. Renato Weller Basophils/100 WBC (Bld) 1.8 % Normal 0.2-2.0 [facility] Comment on above: Performed By: #### L IPID, CMP #### [facility] [address] [place] [address] Dr. eRnato Weller EO # 0.1 103/ul Normal 0.0-0.7 [facility] Comment on above: Performed By: #### L IPID, CMP #### [facility] [address] [place] [address] Dr. Renato Weller Eosinophils/100 WBC (Bld) 2.2 % Normal 0.9-7.0 [facility] Comment on above: Performed By: #### L IPID, CMP #### [facility] [address] [address] [address] Renato Weller Erythrocyte distribution width (RBC) [Ratio] 13.8 % Normal 11.0-15.0 [facility] Comment on above: Performed By: #### L IPID, CMP #### [facility] [address] [place] [address] Dr. Renato Weller Hematocrit (Bld) [Volume fraction] 39.4 % Normal 36.0-48.0 [facility] Comment on above: Performed By: #### L IPID, CMP #### [facility] [address] [place] [address] Dr. Renato Weller Hemoglobin (Bld) [Mass/Vol] 12.5 g/dL Normal 12.0-16.0 [facility] Comment on above: Performed By: #### L IPID, CMP #### [facility] [address] [place] [address] Dr. Renato Weller IG # 0.02 10e3/ul Normal 0.00-0.03 [facility] Comment on above: Performed By: #### L IPID, CMP #### [facility] [address] [place] [address] Dr. Renato Weller IG % 0.4 % Normal 0.0-0.5 [facility] Comment on above: Performed By: #### L IPID, CMP #### [facility] [address] [place] [address] Dr. Renato Weller LYMPH # 1.0 103/ul Critically low 1.2-3.8 [facility] Comment on above: Performed By: #### L IPID, CMP #### [facility] [address] [place] [address] Dr. Renato Weller Lymphocytes/100 WBC (Bld) 18.5 % Critically low 20.5-60.0 [facility] Comment on above: Performed By: #### L IPID, CMP #### [facility] [address] [place] [address] Dr. Renato Weller MANUAL DIFF REQ NO Normal [facility] Comment on above: Performed By: #### L IPID, CMP #### [facility] [address] [place] [address] Dr. Renato Weller MCH (RBC) [Entitic mass] 30.8 pg Normal 26.7-34.0 [facility] Comment on above: Performed By: #### L IPID, CMP #### [facility] [address] [place] [address] Dr. Renato Weller MCHC (RBC) [Mass/Vol] 31.7 g/dL Normal 29.9-35.2 [facility] Comment on above: Performed By: #### L IPID, CMP #### [facility] [address] [place] [address] Dr. Renato Weller MCV (RBC) [Entitic vol] 97.0 fL Normal 81.0-99.0 [facility] Comment on above: Performed By: #### L IPID, CMP #### [facility] [address] [place] [address] Dr. Renato Weller MONO # 0.5 103/ul Normal 0.3-0.8 [facility] Comment on above: Performed By: #### L IPID, CMP #### [facility] [address] [place] [address] Dr. Renato Weller Monocytes/100 WBC (Bld) 9.3 % Normal 1.7-12.0 [facility] Comment on above: Performed By: #### L IPID, CMP #### [facility] [address] [place] [address] Dr. Renato Weller NEUT # 3.8 103/ul Normal 1.4-6.5 [facility] Comment on above: Performed By: #### L IPID, CMP #### [facility] [address] [place] [address] Dr. Renato Weller Neutrophils/100 WBC (Bld) 67.8 % Normal 43.0-75.0 [facility] Comment on above: Performed By: #### L IPID, CMP #### [facility] [address] [place] [address] Dr. Renato Weller Platelet mean volume (Bld) [Entitic vol] 9.1 fL Critically low 9.5-13.5 [facility] Comment on above: Performed By: #### L IPID, CMP #### [facility] [address] [place] [address] Dr. Renato Weller PLT 240 103/ul Normal 150-450 [facility] Comment on above: Performed By: #### L IPID, CMP #### [facility] [address] [address] [address] Renato Weller RBC 4.06 106/ul Critically low 4.20-5.40 [facility] Comment on above: Performed By: #### L IPID, CMP #### [facility] [address] [place] [address] Dr. Renato Weller WBC 5.6 103/ul Normal 4.0-11.0 [facility] Comment on above: Performed By: #### L IPID, CMP #### [facility] [address] [place] [address] Dr. Renato Weller PROF 14(COMP METB)on 022 Albumin [Mass/Vol] 3.5 g/dL Normal 3.4-5.0 [facility] Comment on above: Performed By: #### C H50T #### [facility] [address] [place] [address] Dr. Renato Weller Albumin/Globulin [Mass ratio] 1.1 {ratio} Normal [facility] Comment on above: Performed By: #### C H50T #### [facility] [address] [place] [address] Dr. Renato Weller ALP [Catalytic activity/Vol] 51 U/L Normal 46-116 [facility] Comment on above: Performed By: #### C H50T #### [facility] [address] [place] [address] Dr. Renato Weller ALT [Catalytic activity/Vol] 22 U/L Normal 14-59 [facility] Comment on above: Performed By: #### C H50T #### [facility] [address] [place] [address] Dr. Renato Weller Anion gap [Moles/Vol] 13.0 mmol/L Normal [facility] Comment on above: Performed By: #### C H50T #### [facility] [address] [place] [address] Dr. Renato Weller AST [Catalytic activity/Vol] 17 U/L Normal 15-37 [facility] Comment on above: Performed By: #### C H50T #### [facility] [address] [place] [address] Dr. Renato Weller Bilirubin [Mass/Vol] 0.4 mg/dL Normal 0.2-1.0 [facility] Comment on above: Performed By: #### C H50T #### [facility] [address] [place] [address] Dr. Renato Weller Calcium [Mass/Vol] 8.3 mg/dL Critically low 8.5-10.1 [facility] Comment on above: Performed By: #### C H50T #### [facility] [address] [place] [address] Dr. Renato Weller Chloride [Moles/Vol] 104 mmol/L Normal 98-107 [facility] Comment on above: Performed By: #### C H50T #### [facility] [address] [place] [address] Dr. Renato Weller CO2 [Moles/Vol] 27.4 mmol/L Normal 21.0-32.0 [facility] Comment on above: Performed By: #### C H50T #### [facility] [address] [place] [address] Dr. Renato Weller Creatinine [Mass/Vol] 0.71 mg/dL Normal 0.55-1.02 [facility] Comment on above: Performed By: #### C H50T #### [facility] [address] [place] [address] Dr. Renato Weller EGFR-AF POLISH >60 Normal >=60 [facility] Comment on above: Performed By: #### C H50T #### [facility] [address] [place] [address] Dr. Renato Weller EGFR-NON AF POLISH >60 Normal >=60 [facility] Comment on above: Performed By: #### C H50T #### [facility] [address] [place] [address] Dr. Renato Weller Globulin (S) [Mass/Vol] 3.1 g/dL Normal [facility] Comment on above: Performed By: #### C H50T #### [facility] [address] [place] [address] Dr. Renato Weller Glucose [Mass/Vol] 85 mg/dL Normal 74-106 [facility] Comment on above: Performed By: #### C H50T #### [facility] [address] [place] [address] Dr. Renato Weller Potassium [Moles/Vol] 4.4 mmol/L Normal 3.5-5.1 [facility] Comment on above: Performed By: #### C H50T #### [facility] [address] [place] [address] Dr. Renato Weller Protein [Mass/Vol] 6.6 g/dL Normal 6.4-8.2 [facility] Comment on above: Performed By: #### C H50T #### [facility] [address] [place] [address] Dr. Renato Weller Sodium [Moles/Vol] 140 mmol/L Normal 136-145 [facility] Comment on above: Performed By: #### C H50T #### [facility] [address] [place] [address] Dr. Renato Weller Urea nitrogen [Mass/Vol] 14.0 mg/dL Normal 7.0-18.0 [facility] Comment on above: Performed By: #### C H50T #### [facility] [address] [place] [address] Dr. Renato Weller Urea nitrogen/Creatinine [Mass ratio] 19.7 mg/mg Normal [facility] Comment on above: Performed By: #### C H50T #### [facility] [address] [place] [address] Dr. [facility] 6 mm/hr Normal <=30 [facility] Comment on above: Performed By: #### C H50T #### [facility] [address] [place] [address] Dr. Renato Weller UA RANDOM W/MICROSCOPICon BACTERIA TRACE Abnormal NONE SEEN [facility] Comment on above: Performed By: #### C H50T #### [facility] [address] [place] [address] Dr. Renato Weller Bilirubin Ql (U) MODERATE Abnormal NEGATIVE [facility] Comment on above: Performed By: #### C H50T #### [facility] [address] [place] [address] Dr. Renato Weller CAST NONE SEEN Normal NONE SEEN [facility] Comment on above: Performed By: #### C H50T #### [facility] [address] [place] [address] Dr. Renato Weller Clarity (U) CLEAR Normal CLEAR [facility] Comment on above: Performed By: #### C H50T #### [facility] [address] [place] [address] Dr. Renato Weller Color (U) LT. YELLOW Normal YELLOW [facility] Comment on above: Performed By: #### C H50T #### [facility] [address] [place] [address] Dr. Renato Weller Crystals LM Nom (Urine sed) NONE SEEN Normal NONE SEEN [facility] Comment on above: Performed By: #### C H50T #### [facility] [address] [place] [address] Dr. Renato Weller Epithelial cells LM Ql (Urine sed) MODERATE Abnormal NONE SEEN /RARE [facility] Comment on above: Performed By: #### C H50T #### [facility] [address] [place] [address] Dr. Renato Weller Glucose Ql (U) Negative Normal NEGATIVE [facility] Comment on above: Performed By: #### C H50T #### [facility] [address] [place], [place] [id number] Dr. Renato Weller Hemoglobin Ql (U) Negative Normal NEGATIVE [facility] Comment on above: Performed By: #### C H50T #### [facility] [address] [place] [address] Dr. Renato Weller Ketones Ql (U) Negative Normal NEGATIVE [facility] Comment on above: Performed By: #### C H50T #### [facility] [address] [place] [address] Dr. Renato Weller LEUKOCYTES SMALL Abnormal NEGATIVE [facility] Comment on above: Performed By: #### C H50T #### [facility] [address] [place] [address] Dr. Renato Weller MUCOUS NONE SEEN Normal NONE SEEN [facility] Comment on above: Performed By: #### C H50T #### [facility] [address] [place] [address] Dr. Renato Weller Nitrite Ql (U) Negative Normal NEGATIVE [facility] Comment on above: Performed By: #### C H50T #### [facility] [address] [place] [address] Dr. Renato Weller pH (U) 6.0 [pH] Normal 5-9 [facility] Comment on above: Performed By: #### C H50T #### [facility] [address] [place] [address] Dr. Renato Weller RBC NONE SEEN Abnormal 0-2 [facility] Comment on above: Performed By: #### C H50T #### [facility] [address] [place] [address] Dr. Renato Weller SPEC GRAVITY 1.010 Normal 1.005-<=1.025 [facility] Comment on above: Performed By: #### C H50T #### [facility] [address] [place] [address] Dr. Renato Weller UA PROTEIN Negative Normal NEGATIVE/ TRACE [facility] Comment on above: Performed By: #### C H50T #### [facility] [address] [place] [address] Dr. Renato Weller Urobilinogen Qn (U) 0.2 {Paul'U}/dL Normal 0.2 - 1. 0 [facility] Comment on above: Performed By: #### C H50T #### [facility] [address] [address] [address] Renato Weller WBC 2-5 Abnormal NONE SEEN [facility] Comment on above: Performed By: #### C H50T #### [facility] [address] [address] [address] Renato Weller C-Reactive Proteinon 019 CRP [Mass/Vol] 0.6 mg/dL Normal 0.0-1.0 [facility] Comment on above: Performed By: #### C BC, CK, CMP, CRP, T4F, TSH3, ESR #### [address] Complete Blood Count Auto Di ffon 04-06-2019 Basophils (Bld) [#/Vol] 0.1 10*3/uL Normal 0.0-0.2 [facility] Comment on above: Result Comment: PERF ORMED BY: [place] [address] PATHOLOGIST [employer] DES[employer]ER ROSLYN TALLEY M.D. Performed By: #### C BC, CK, CMP, CRP, T4F, TSH3, ESR #### [address] Basophils/100 WBC (Bld) 1.0 % Normal . [facility] Comment on above: Performed By: #### C BC, CK, CMP, CRP, T4F, TSH3, ESR #### [place] [address] [place] Eosinophils (Bld) [#/Vol] 0.1 10*3/uL Normal 0.0-0.45 [facility] Comment on above: Performed By: #### C BC, CK, CMP, CRP, T4F, TSH3, ESR #### [place] [address] [place] Eosinophils/100 WBC (Bld) 0.9 % Normal . [facility] Comment on above: Performed By: #### C BC, CK, CMP, CRP, T4F, TSH3, ESR #### [address] Erythrocyte distribution width (RBC) [Ratio] 14.5 % Normal 11.9-15.3 [facility] Comment on above: Performed By: #### C BC, CK, CMP, CRP, T4F, TSH3, ESR #### [address] Hematocrit (Bld) [Volume fraction] 44.9 % Normal 34.0-46.4 [facility] Comment on above: Performed By: #### C BC, CK, CMP, CRP, T4F, TSH3, ESR #### [address] Hemoglobin (Bld) [Mass/Vol] 15.2 g/dL Normal 11.8-15.4 [facility] Comment on above: Performed By: #### C BC, CK, CMP, CRP, T4F, TSH3, ESR #### [address] Lymphocytes (Bld) [#/Vol] 1.1 10*3/uL Normal 1.00-4.8 [facility] Comment on above: Performed By: #### C BC, CK, CMP, CRP, T4F, TSH3, ESR #### [address] Lymphocytes/100 WBC (Bld) 14.6 % Normal . [facility] Comment on above: Performed By: #### C BC, CK, CMP, CRP, T4F, TSH3, ESR #### [address] MCH (RBC) [Entitic mass] 34.0 g/dL Normal 32.0-35.0 [facility] Comment on above: Performed By: #### C BC, CK, CMP, CRP, T4F, TSH3, ESR #### [address] MCH (RBC) [Entitic mass] 30.8 pg Normal 24.7-34.3 [facility] Comment on above: Performed By: #### C BC, CK, CMP, CRP, T4F, TSH3, ESR #### [facility] [address] MCV (RBC) [Entitic vol] 90.5 fL Normal 80-100 [facility] Comment on above: Performed By: #### C BC, CK, CMP, CRP, T4F, TSH3, ESR #### [facility] [address] Monocytes (Bld) [#/Vol] 0.5 10*3/uL Normal 0.0-0.8 [facility] Comment on above: Performed By: #### C BC, CK, CMP, CRP, T4F, TSH3, ESR #### [address] Monocytes/100 WBC (Bld) 7.0 % Normal . [facility] Comment on above: Performed By: #### C BC, CK, CMP, CRP, T4F, TSH3, ESR #### [address] Neutrophils (Bld) [#/Vol] 6.0 10*3/uL Normal 1.8-7.7 [facility] Comment on above: Performed By: #### C BC, CK, CMP, CRP, T4F, TSH3, ESR #### [address] Neutrophils/100 WBC (Bld) 76.5 % Normal . [facility] Comment on above: Performed By: #### C BC, CK, CMP, CRP, T4F, TSH3, ESR #### [place] [address] [place] Nucleated RBC/100 WBC (Bld) [Ratio] 0.2 % Normal 0-0.5 [facility] Comment on above: Performed By: #### C BC, CK, CMP, CRP, T4F, TSH3, ESR #### [address] Platelet mean volume (Bld) [Entitic vol] 8.6 fL Normal 6.3-10.7 [facility] Comment on above: Performed By: #### C BC, CK, CMP, CRP, T4F, TSH3, ESR #### [address] Platelets (Bld) [#/Vol] 218 10*3/uL Normal 150-450 [facility] Comment on above: Performed By: #### C BC, CK, CMP, CRP, T4F, TSH3, ESR #### [address] RBC (Bld) [#/Vol] 4.96 10*6/uL Normal 3.60-5.00 [facility] Comment on above: Performed By: #### C BC, CK, CMP, CRP, T4F, TSH3, ESR #### [address] WBC (Bld) [#/Vol] 7.8 10*3/uL Normal 4.5-11.0 [facility] Comment on above: Performed By: #### C BC, CK, CMP, CRP, T4F, TSH3, ESR #### [address] Comprehensive Metabolic Pane molly 04-06-2019 Albumin [Mass/Vol] 4.0 g/dL Normal 3.2-5.5 [facility] Comment on above: Performed By: #### C BC, CK, CMP, CRP, T4F, TSH3, ESR #### [address] Albumin/Globulin [Mass ratio] 1.5 {ratio} Normal [facility] Comment on above: Performed By: #### C BC, CK, CMP, CRP, T4F, TSH3, ESR #### [address] ALP [Catalytic activity/Vol] 40 U/L Normal 32-92 [facility] Comment on above: Performed By: #### C BC, CK, CMP, CRP, T4F, TSH3, ESR #### [address] ALT [Catalytic activity/Vol] 10 U/L Normal 10-60 [facility] Comment on above: Performed By: #### C BC, CK, CMP, CRP, T4F, TSH3, ESR #### [address] AST [Catalytic activity/Vol] 15 U/L Normal 10-42 [facility] Comment on above: Performed By: #### C BC, CK, CMP, CRP, T4F, TSH3, ESR #### [address] Bilirubin [Mass/Vol] 0.6 mg/dL Normal 0.3-1.2 [facility] Comment on above: Performed By: #### C BC, CK, CMP, CRP, T4F, TSH3, ESR #### [address] Calcium [Mass/Vol] 9.6 mg/dL Normal 8.2-10.2 [facility] Comment on above: Performed By: #### C BC, CK, CMP, CRP, T4F, TSH3, ESR #### [address] Chloride [Moles/Vol] 103 mmol/L Normal 95-114 [facility] Comment on above: Performed By: #### C BC, CK, CMP, CRP, T4F, TSH3, ESR #### [address] CO2 [Moles/Vol] 26.6 mmol/L Normal 22.0-30.0 [facility] Comment on above: Performed By: #### C BC, CK, CMP, CRP, T4F, TSH3, ESR #### [address] Creatinine [Mass/Vol] 0.79 mg/dL Normal 0.44-1.03 [facility] Comment on above: Performed By: #### C BC, CK, CMP, CRP, T4F, TSH3, ESR #### [facility] [address] Estimated GFR ( Kimberly > 60 Normal [facility] Comment on above: Result Comment: GFR estimated reference range: According to KDOQI guidelines, <60 ml/min/1.73m2 is sufficient to diagnose a patient with chronic kidney disease. Performed By: #### C BC, CK, CMP, CRP, T4F, TSH3, ESR #### [facility] [address] Estimated GFR (Non- Am > 60 Normal [facility] Comment on above: Performed By: #### C BC, CK, CMP, CRP, T4F, TSH3, ESR #### [facility] [address] Globulin (S) [Mass/Vol] 2.6 g/dL Normal [facility] Comment on above: Performed By: #### C BC, CK, CMP, CRP, T4F, TSH3, ESR #### [facility] [address] Glucose [Mass/Vol] 87 mg/dL Normal 70-100 [facility] Comment on above: Result Comment: [place] om Glucose Reference Range is dependent on time and content of last meal. Glucose of more than 200 mg/dL in a nonstressed, ambulatory subject supports the diagnosis of Diabetes Mellitus. ADA recommended reference range Performed By: #### C BC, CK, CMP, CRP, T4F, TSH3, ESR #### [facility] [address] Potassium [Moles/Vol] 4.2 mmol/L Normal 3.5-5.1 [facility] Comment on above: Performed By: #### C BC, CK, CMP, CRP, T4F, TSH3, ESR #### [facility] [address] Protein [Mass/Vol] 6.6 g/dL Normal 6.1-7.9 [facility] Comment on above: Performed By: #### C BC, CK, CMP, CRP, T4F, TSH3, ESR #### [address] Sodium [Moles/Vol] 140 mmol/L Normal 136-146 [facility] Comment on above: Performed By: #### C BC, CK, CMP, CRP, T4F, TSH3, ESR #### [address] Urea nitrogen [Mass/Vol] 12 mg/dL Normal 9-23 [facility] Comment on above: Performed By: #### C BC, CK, CMP, CRP, T4F, TSH3, ESR #### [address] Creatine Kinaseon 04-06-2019 CK [Catalytic activity/Vol] 46 U/L Normal 22-269 [facility] Comment on above: Result Comment: PERF ORMED BY: [place] [address] PATHOLOGIST [employer] DESIGNER ROSLYN TALLEY M.D. Performed By: #### C BC, CK, CMP, CRP, T4F, TSH3, ESR #### [address] Dipstick and Microscopicon 1 Appearance (U) Turbid Critically abnormal Clear [facility] Comment on above: Order Comment: Name Collection Type:: Clean-Voided Midstream Performed By: #### A DDONUAPLUS, PT, PTT #### [address] Bacteria LM.HPF (Urine sed) [#/Area] 1+ High None Seen [facility] Comment on above: Order Comment: Name Collection Type:: Clean-Voided Midstream Performed By: #### A DDONUAPLUS, PT, PTT #### [address] Bilirubin,Urine Negative Normal Negative [facility] Comment on above: Order Comment: Name Collection Type:: Clean-Voided Midstream Performed By: #### A DDONUAPLUS, PT, PTT #### [facility] [address] [place] [address] [place] Color (U) Yellow Normal Yellow [facility] Comment on above: Order Comment: Name Collection Type:: Clean-Voided Midstream Performed By: #### A DDONUAPLUS, PT, PTT #### [facility] [address] Glucose Ql (U) Normal Normal Normal [facility] Comment on above: Order Comment: Name Collection Type:: Clean-Voided Midstream Performed By: #### A DDONUAPLUS, PT, PTT #### [facility] [address] [place] [address] [place] Hyaline Casts,Urine None Seen Normal 0-1 [facility] Comment on above: Order Comment: Name Collection Type:: Clean-Voided Midstream Performed By: #### A DDONUAPLUS, PT, PTT #### [facility] [address] [place] [address] [place] Ketones Ql (U) Trace High Negative [facility] Comment on above: Order Comment: Name Collection Type:: Clean-Voided Midstream Performed By: #### A DDONUAPLUS, PT, PTT #### [facility] [address] [place] [address] Leukocyte esterase Test strip Ql (U) 3+ High Negative [facility] Comment on above: Order Comment: Name Collection Type:: Clean-Voided Midstream Performed By: #### A DDONUAPLUS, PT, PTT #### [facility] [address] [place] [address] [place] Nitrite,Urine Negative Normal Negative [facility] Comment on above: Order Comment: Name Collection Type:: Clean-Voided Midstream Performed By: #### A DDONUAPLUS, PT, PTT #### [facility] [address] [place] [address] [place] Occult Blood,Urine Negative Normal Negative [facility] Comment on above: Order Comment: Name Collection Type:: Clean-Voided Midstream Performed By: #### A DDONUAPLUS, PT, PTT #### [facility] [address] [place] [address] [place] Other Casts,Urine None Seen Normal None Seen [facility] Comment on above: Order Comment: Name Collection Type:: Clean-Voided Midstream Result Comment: PERF ORMED BY: [place] [address] PATHOLOGIST [employer] DES[employer]ER ROSLYN TALLEY M.D. Performed By: #### A DDONUAPLUS, PT, PTT #### [address] pH (U) 5.0 [pH] Normal 5.0-9.0 [facility] Comment on above: Order Comment: Name Collection Type:: Clean-Voided Midstream Performed By: #### A DDONUAPLUS, PT, PTT #### [address] Protein (U) [Mass/Vol] Negative Normal Negative [facility] Comment on above: Order Comment: Name Collection Type:: Clean-Voided Midstream Performed By: #### A DDONUAPLUS, PT, PTT #### [address] RBC LM.HPF (Urine sed) [#/Area] 5-9 High 0-4 [facility] Comment on above: Order Comment: Name Collection Type:: Clean-Voided Midstream Performed By: #### A DDONUAPLUS, PT, PTT #### [address] Specificy [place],Urine 1.024 Normal 1.001-1.030 [facility] Comment on above: Order Comment: Name Collection Type:: Clean-Voided Midstream Performed By: #### A DDONUAPLUS, PT, PTT #### [address] Squamous Epithelial Cell,Urine 5-9 High 0-2 [facility] Comment on above: Order Comment: Name Collection Type:: Clean-Voided Midstream Performed By: #### A DDONUAPLUS, PT, PTT #### [address] Urobilinogen,Urine Normal Normal Normal [facility] Comment on above: Order Comment: Name Collection Type:: Clean-Voided Midstream Performed By: #### A DDONUAPLUS, PT, PTT #### [address] WBC LM.HPF (Urine sed) [#/Area] 20-49 High 0-4 [facility] Comment on above: Order Comment: Name Collection Type:: Clean-Voided Midstream Performed By: #### A DDONUAPLUS, PT, PTT #### [address] Erythrocyte Sedimentation Ra [place] 04-06-2019 ESR (Bld) [Velocity] 23 mm/h Normal 0-30 [facility] Comment on above: Result Comment: PERF ORMED BY: [place] [address] PATHOLOGIST [employer] DES[employer]ER ROSLYN TALLEY M.D. Performed By: #### C BC, CK, CMP, CRP, T4F, TSH3, ESR #### [address] Free T4 (Free Thyroxine)on 1 Free T4 [Mass/Vol] 0.88 ng/dL Normal 0.61-1.12 [facility] Comment on above: Performed By: #### C BC, CK, CMP, CRP, T4F, TSH3, ESR #### [place] [address] [place] Partial Thromboplastin Timeo n 04-06-2019 aPTT Coag (Bld) [Time] 29.8 s Normal 23.0-35.0 [facility] Comment on above: Order Comment: List the anticoagulant: NONE Result Comment: PERF ORMED BY: [place] [address] PATHOLOGIST [employer] DES[employer]ER ROSLYN TALLEY M.D. Performed By: #### A DDONUAPLUS, PT, PTT #### [address] Prothrombin Time INRon 04-06 INR Coag (Bld) [Relative time] 10.3 s Normal 9.0-12.9 [facility] Comment on above: Order Comment: List the anticoagulant: NONE Performed By: #### A DDONUAPLUS, PT, PTT #### [facility] [address] INR Coag (PPP) [Relative time] 0.9 {INR} Normal [facility] Comment on above: Order Comment: List [...] By: #### A DDONUAPLUS, PT, PTT #### [address] Thyroid Stimulating Hormoneo n 04-06-2019 TSH Qn 2.89 u[iU]/mL Normal 0.45-5.33 [facility] Comment on above: Result Comment: PERF ORMED BY: [place] [address] PATHOLOGIST [employer] DESIGNER ROSLYN TALLEY M.D. Performed By: #### C BC, CK, CMP, CRP, T4F, TSH3, ESR #### [address] Vital Signs Date Time Vital Sign Value Performing Clinician Facility 05-05-2023 09:10-0400 Body height 160.02 cm Casandra Chopra Other [facility] Other 05-05-2023 09:10-0400 Body mass index (BMI) [Ratio] 31.35 kg/m2 Casandra Chopra Other [facility] Other 05-05-2023 09:10-0400 Body temperature 98.9 [degF] Casandra Chopra Other [facility] Other 05-05-2023 09:10-0400 Body weight 80.29 kg Casandra Chopra Other [facility] Other 05-05-2023 09:10-0400 Diastolic blood pressure 68 mm[Hg] Casandra Chopra Other [facility] Other 05-05-2023 09:10-0400 Respiratory rate 18 /min Casandra Chopra Other [facility] Other 05-05-2023 09:10-0400 SaO2% (BldA) [Mass fraction] 98 % Casandra Chopra Other [facility] Other 05-05-2023 09:10-0400 Systolic blood pressure 112 mm[Hg] Casandra Chopra Other [facility] Other 02-23-2023 11:40-0400 Body height 160.02 cm Eva Blades Other [facility] Other 02-23-2023 11:40-0400 Body mass index (BMI) [Ratio] 31.35 kg/m2 Eva Blades Other [facility] Other 02-23-2023 11:40-0400 Body weight 80.29 kg Eva Blades Other [facility] Other 02-23-2023 11:40-0400 Diastolic blood pressure 78 mm[Hg] Eva Blades Other [facility] Other 02-23-2023 11:40-0400 Systolic blood pressure 110 mm[Hg] Eva Blades Other [facility] Other 12-29-2022 10:00-0400 Body height 160.02 cm [facility] Other [facility] Other 12-29-2022 10:00-0400 Body mass index (BMI) [Ratio] 30.82 kg/m2 [facility] Other [facility] Other 12-29-2022 10:00-0400 Body weight 78.93 kg [employer] Other [facility] Other 12-29-2022 10:00-0400 Diastolic blood pressure 68 mm[Hg] J C Lads Other [facility] Other 12-29-2022 10:00-0400 Systolic blood pressure 118 mm[Hg] J C Lads Other [facility] Other 10-28-2022 10:10-0400 Body height 160.02 cm Casandra Chopra Other [facility] Other 10-28-2022 10:10-0400 Body mass index (BMI) [Ratio] 31.7 kg/m2 Casandra Chopra Other [facility] Other 10-28-2022 10:10-0400 Body temperature 97.6 [degF] Casandra Chopra Other [facility] Other 10-28-2022 10:10-0400 Body weight 81.19 kg Casandra hCopra Other [facility] Other 10-28-2022 10:10-0400 Diastolic blood pressure 68 mm[Hg] Casandra Chopra Other [facility] Other 10-28-2022 10:10-0400 Respiratory rate 18 /min Casandra Chopra Other [facility] Other 10-28-2022 10:10-0400 SaO2% (BldA) [Mass fraction] 99 % Casandra Chopra Other [facility] Other 10-28-2022 10:10-0400 Systolic blood pressure 112 mm[Hg] Casandra Chopra Other [facility] Other 02-04-2022 15:05-0400 Blood Pressure Location [facility] [place] 02-04-2022 15:05-0400 Diastolic blood pressure 60 mm[Hg] Russell NILL [facility] [place] 02-04-2022 15:05-0400 Heart rate 72 /min Russell NILL [facility] [place] 02-04-2022 15:05-0400 Respiratory rate 16 /min Russell NILL [facility] [place] 02-04-2022 15:05-0400 Systolic blood pressure 116 mm[Hg] Russell NILL [facility] [place] 10-17-2021 09:50-0400 Body height 160.02 cm Casandra Chopra Other [facility] Other 10-17-2021 09:50-0400 Body mass index (BMI) [Ratio] 31 kg/m2 Casandra Chopra Other [facility] Other 10-17-2021 09:50-0400 Body temperature 97.8 [degF] Casandra Chopra Other [facility] Other 10-17-2021 09:50-0400 Body weight 79.38 kg Casandra Chopra Other [facility] Other 10-17-2021 09:50-0400 Diastolic blood pressure 64 mm[Hg] Casandra Chopra Other [facility] Other 10-17-2021 09:50-0400 Respiratory rate 18 /min Casandra Chopra Other [facility] Other 10-17-2021 09:50-0400 SaO2% (BldA) [Mass fraction] 97 % Casandra Chopra Other [facility] Other 10-17-2021 09:50-0400 Systolic blood pressure 102 mm[Hg] Casandra Chopra Other [facility] Other 09-04-2021 09:10-0500 Body height 160.02 cm Casandra Chopra Other [facility] Other 09-04-2021 09:10-0500 Body mass index (BMI) [Ratio] 30.11 kg/m2 Casandra Chopra Other [facility] Other 09-04-2021 09:10-0500 Body temperature 97.6 [degF] Casandra Chopra Other [facility] Other 09-04-2021 09:10-0500 Body weight 77.11 kg Casandra Chopra Other [facility] Other 09-04-2021 09:10-0500 Diastolic blood pressure 68 mm[Hg] Casandra Chopra Other [facility] Other 09-04-2021 09:10-0500 Respiratory rate 18 /min Casandra Leunglaura Other [facility] Other 09-04-2021 09:10-0500 SaO2% (BldA) [Mass fraction] 99 % Casandra Xochitllaura Other [facility] Other 09-04-2021 09:10-0500 Systolic blood pressure 104 mm[Hg] Casandra Chopra Other [facility] Other 04-10-2021 10:10-0400 Body height 160.02 cm Casandra Chopra Other [facility] Other 04-10-2021 10:10-0400 Body mass index (BMI) [Ratio] 31 kg/m2 Casandra Chopra Other [facility] Other 04-10-2021 10:10-0400 Body temperature 97.4 [degF] Casandra Xochitllaura Other [facility] Other 04-10-2021 10:10-0400 Body weight 79.38 kg Casandra Xochitllaura Other [facility] Other 04-10-2021 10:10-0400 Diastolic blood pressure 76 mm[Hg] Casandra Chopra Other [facility] Other 04-10-2021 10:10-0400 Respiratory rate 18 /min Casandra Xochitllaura Other [facility] Other 04-10-2021 10:10-0400 SaO2% (BldA) [Mass fraction] 99 % Casandra Chopra Other [facility] Other 04-10-2021 10:10-0400 Systolic blood pressure 118 mm[Hg] Casandra Chopra Other [facility] Other Encounters Encounter Date Encounter Type Care Provider Facility Start: 05-12-2023 End: 05-12-2023 ambulatory Casandra Chopra Other [facility] Other Start: 05-12-2023 Telephone encounter Casandra Chopra [facility] [place] Start: 05-05-2023 End: 05-05-2023 ambulatory Casandra Chopra Other [facility] Other Start: 05-05-2023 Office outpatient vi sit 25 minutes Casandra Chopra [facility] [place] Start: 05-05-2023 Telephone encounter Casandra Chopra [facility] [place] Start: 02-23-2023 End: 02-23-2023 ambulatory Eva Cortes Other [facility] Other Start: 02-23-2023 Office outpatient vi sit 15 minutes Eva Cortes [facility] Start: 02-19-2023 End: 02-19-2023 ambulatory Germaine Manuel Facility:[facility] Start: 02-19-2023 End: 02-19-2023 ambulatory DO Josiah Samuel Work Phone: [facility] Work Phone: Start: 02-19-2023 End: 02-19-2023 Patient encounter procedure DO Josiah Lizzie Work Phone: [facility] [place] Work Phone: Start: 02-12-2023 End: 02-12-2023 ambulatory Casandra Chopra Other [facility] Other Start: 02-12-2023 Telephone encounter Casandra Chopra [facility] [place] Start: 02-02-2023 End: 02-02-2023 ambulatory Casandra Chopra Other [facility] Other Start: 02-02-2023 Telephone encounter Casandra Chopra [facility] [place] Start: 12-30-2022 End: 12-30-2022 ambulatory Germaine Mar Other [facility] Other Start: 12-30-2022 Telephone encounter Germaineshannan Manuel [facility] Start: 12-29-2022 End: 12-29-2022 ambulatory Germaine Mar Other [facility] Other Start: 12-29-2022 Office outpatient ne w 45 minutes Germaineshannan Manuel [facility] Start: 12-02-2022 End: 12-03-2022 ambulatory CHRISSY VENEGAS . Facility:[facility] Start: 10-28-2022 End: 10-28-2022 ambulatory Casandra Chopra Other [facility] Other Start: 10-28-2022 Office outpatient vi sit 25 minutes Casandra Chopra [facility] [place] Start: 10-22-2022 End: 10-23-[address] CASANDRA CHOPRA Facility:[facility] Start: 09-15-2022 End: 09-15-2022 ambulatory Casandra Chopra Other [facility] Other Start: 09-15-2022 Telephone encounter Casandra Chopra [facility] [place] Start: 08-18-2022 End: 08-19-[address] CASANDRA CHOPRA Facility:[facility] Start: 05-12-2022 End: 05-13-[address] CASANDRA CHOPRA Facility:[facility] Start: 05-05-2022 End: 05-05-2022 ambulatory Casandra Chopra Other [facility] Other Start: 05-05-2022 Telephone encounter Casandra Chopra [facility] [place] Start: 05-01-2022 End: 05-02-[address] CASANDRA CHOPRA Facility:[facility] Start: 04-14-2022 End: 04-15-[address] CASANDRA CHOPRA Facility:[facility] Start: 02-19-2022 End: 02-20-[address] CASANDRA CHOPRA Facility:[facility] Start: 02-04-2022 End: 02-04-2022 Patient encounter procedure Russell HARRELL [facility] [place] Start: 12-30-2021 End: 12-31-[address] CASANDRA CHOPRA Facility:[facility] Start: 12-16-2021 End: 12-17-[address] CASANDRA CHOPRA Facility:[facility] Start: 12-03-2021 End: 12-03-2021 ambulatory Casandra Chopra Other [facility] Other Start: 12-03-2021 Telephone encounter Casandra Chopra [facility] [place] Start: 10-22-2021 End: 10-22-2021 ambulatory Casandra Chopra Other [facility] Other Start: 10-22-2021 Telephone encounter Casandra Chopra [facility] [place] Start: 10-17-2021 End: 10-17-2021 ambulatory Casandra Chopra Other [facility] Other Start: 10-17-2021 Office outpatient vi sit 25 minutes Casandra Chopra [facility] [place] Start: 10-17-2021 Telephone encounter Casandra Chopra [facility] [place] Start: 09-04-2021 End: 09-04-2021 ambulatory Casandra Chopra Other [facility] Other Start: 09-04-2021 Office outpatient vi sit 15 minutes Casandra Chopra [facility] [place] Start: 04-24-2021 Telephone encounter Casandra Chopra [facility] [place] Start: 04-10-2021 Office outpatient vi sit 15 minutes Casandra Chopra [employer] [facility] [place] Procedures Date Procedure Procedure Detail Performing Clinician [...] for malign ant neoplasm of breast Casandra Chopra Other Total abdominal hysterectomy with bilateral salpingo-oophorectomy Russell NILL Immunizations Immunization Date Immunization Notes Care Provider Shyla hall 04-20-2021 COVID-19 Vaccine Pfizer - Documentation Purposes Only Casandra Chopra Other [facility] Other 04-10-2021 influenza, seasonal, injectable Patient Objection Casandra Chopra Other [facility] Other 03-30-2021 COVID-19 Vaccine Pfizer - Documentation Purposes Only Casandra Chopra Other [facility] Other 11-21-2016 Toradol per 15 mg Casandra Calderon in Other [facility] Other 06-02-2016 influenza, seasonal, injectable Patient Objection Casandra Chopra Other [facility] Other 06-02-2016 pneumococcal polysaccharide vaccine, 23 valent Patient Objection Casandra Chopra Other [facility] Other 03-23-2012 Kenalog 40/Xylocaine Casandra mendieta Other [facility] Other NEGATED: Highlighted row has not occurred!10-06-202 1 influenza, seasonal, injectable Patient Objection Casandra Chopra Other [facility] Other NEGATED: Highlighted row has not occurred! 6 influenza, seasonal, injectable Patient Objection Casandra Chopra Other [facility] Other NEGATED: Highlighted row has not occurred! 6 pneumococcal polysaccharide vaccine, 23 valent Patient Objection Casandra Chopra Other [facility] Other Payers Date Payer Category Payer Private Health Insurance [id number] 2022 Self-pay [id number] 2019 Medicare [id number] [id number] 1959 Medicare [id number] 2. [id number] 1959 Medicare [id number] 1959 Private Health Insurance [id number] 1959 Unknown [id number] 1952 Unknown [id number] 2.16.84 [id number] 1952 Unknown [id number] 2.16.84 [id number] 1952 Unknown [id number] 2.16.84 [id number] 1952 Unknown [id number] 2.16.84 [id number] 1952 Unknown [id number] 2.16.84 [id number] 1952 Unknown [id number] 2.16.84 [id number] 1952 Unknown [id number] 2.16.84 [id number] 1952 Unknown [id number] 2.16.84 [id number] 1952 Unknown [id number] 2.16.84 [id number] 1952 Unknown [id number] 2.16.84 [id number] Unknown [id number] 2.16.8 [id number] Social History Date Type Detail Facility Unknown if ever smoked [facility] Other Sex Assigned At [facility] Other Start: 02-04-2022 Tobacco smoking status Heavy t obacco smoker (finding) [facility] Tobacco smoking status Never [facility] Start: 1950 Sex Assigned At Female F [facility] Functional Status Date Assessment Result Facility 02-04-2022 Functional Status N/A General [facility] Clinical Notes 08-11-2012 to 05-05-2023 Note Date & Type Note Facility 05-05-2023 Evaluation note Encounter Date Diagnosis Assessment Notes Apr, Hematuria (ICD-10 - R31.9) [facility] Other 10-31-2023 Evaluation note* Encounter Date Diagnosis [...] him know. She has not been mulching. [facility]. Other 08-21-2023 Evaluation note* Encounter Date Diagnosis Assessment Notes Treatment Notes Treatment Clinical Notes Feb, Compression fracture of T8 vertebra with routine healing, subsequent encounter (ICD-10 - S22.060D) [facility] Other 06-26-2023 Evaluation note* Encounter Date Diagnosis [...] (ICD-10 - R26.81) Dec, Other [facility] reviewed [facility] Other 04-25-2023 Evaluation note* Encounter Date Diagnosis [...] use above medications as needed. 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 Bell and his SENIOR C DEVELOPER as scheduled. Oct, COPD (chronic obstructive pulmonary [...] breaths out before she lifts anything heavy. [facility] Other 03-13-2023 Evaluation note* Encounter Date Diagnosis Assessment Notes Treatment Notes Treatment Clinical Notes Sep, Hyperlipidemia (ICD-10 - E78.5) [facility] Other 10-31-2022 Evaluation note* Encounter Date Diagnosis Assessment Notes Treatment Notes Treatment Clinical Notes Apr, Hematuria (ICD-10 - R31.9) [facility] Other 08-04-2022 NoteChief Complaint consultation for ventral hernia HPI Staff 71 year old female presents on consultation from Dr. Chopra for ventral hernia. Reports she moved Where two months ago. Noted epigastric lump several [...] tab(s), Oral, Daily potassium (more content not included)...[facility]Result Comment: Electronically Signed By: SHARRI BECKER, Russell Valverde\Date and Time Signed: 02/06/22 10:42 [id number] Evaluation note* Encounter Date Diagnosis Assessment Notes [...] with above medication as needed. 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 [facility] 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 When she was seen by Dr. Bell's SENIOR C DEVELOPER her BP was 80/60 so they wanted [...] stress is going to go down soon. [facility]. Other 10-06-2021 Evaluation note* Encounter Date Diagnosis [...] getting her second COVID-19 vaccine on 04-20-21. [facility]. Other 02-06-2013 History general Narrative - Reported* Type Description Date Medical History left shoulder & elbow problems Medical History 08/11/12 Cervical spine x-ray [facility] [place] Medical History 10/26/14 refused colonoscopy Medical History [...] natural 05/29/19 76 Hospitalization History natural 7 [facility] Other 02-06-2013 History general Narrative - Reported* Type Description Date Medical History left shoulder & elbow problems Medical History 08/11/12 Cervical spine x-ray [facility] [place] Medical History 10/26/14 refused colonoscopy Medical History [...] natural 05/29/19 76 Hospitalization History natural 7 [facility] Other 02-06-2013 History general Narrative - Reported* Type Description Date Medical History left shoulder & elbow problems Medical History 08/11/12 Cervical spine x-ray [facility] [place] Medical History 10/26/14 refused colonoscopy Medical History [...] natural 05/29/19 74 Hospitalization History natural 7 [facility] Other 02-06-2013 History general Narrative - Reported* Type Description Date Medical History left shoulder & elbow problems Medical History 08/11/12 Cervical spine x-ray [facility] [place] Medical History 10/26/14 refused colonoscopy Medical History [...] natural 05/29/19 76 Hospitalization History natural 7 [facility] Other evaluation + Plan note No data available for this section General Surgery [facility] Evaluation noteNo InformationNort Rives and Company Other Evaluation noteNo assessment information available [facility] Work Phone: Hospital Discharge instructions No data available for this section General Surgery [place] Progress note No data available for this section General Surgery [place] Summary Purpose Family History No Family History [...] Ear pain, left (H92. 02) Referral Organization [facility] Family Pepe Chen Referring Provider First Name Casandra Referring Provider Last Name Nav Referring Provider Specialty Family Prac amanda Referred Organization [facility] Referred Provider Beth Blanton Referred Address ,[place], [place],[address] Referred Provider Specialty Ear, Nose an d Throat Referral Priority Routine General Notes Eva Weaver 05/05/2023 10:59:36 AM > referral faxed thru [facility] with visit note and insurance card. pt understands she will be contacted to schedule this appt. Additional Source Comments INFORMATION SOURCE (unrecogn ized section and content) DATE CREATED AUTHOR 04/07/2019 [facility] DATE CREATED AUTHOR AUTHOR'S ORGANIZ ATION [facility]01/2022 [facility] DATE CREATED AUTHOR AUTHOR'S ORGANIZ ATION 12/12/2022 [facility] DATE CREATED AUTHOR AUTHOR'S ORGANIZ ATION 02/25/2023 [facility] REASON FOR VISIT (unrecogniz ed [...] Team Status: Inactive Member Role Status Dates Josiah Samuel DO Primary Care Provider Active PITO [...] BE BASED ON THE PRIMARY CLINICAL RECORDS. [facility] [employer]. provides no warranty or guarantee of the accuracy or completeness of information in this document.
[2023-10-26 09:20] LABS: Basophils Absolute Auto 0.1 10^3/uL (0.0-0.1); Basophils Percent Auto 2.1 % (0.2-2.0); Eosinophils Absolute Auto 0.1 10^3/uL (0.0-0.7); Eosinophils Percent Auto 2.3 % (0.9-7.0); Hematocrit 36.5 % (36.0-48.0); Hemoglobin 11.7 g/dL (12.0-16.0); Immature Granulocytes Abs Auto 0.03 10^3/uL (0.00-0.03); Immature Granulocytes Pct Auto 0.5 % (0.0-0.5); Lymphocytes Absolute Auto 1.1 10^3/uL (1.2-3.8); Lymphocytes Percent Auto 18.3 % (20.5-60.0); Mean Corpuscular HGB Conc 32.1 g/dL (29.9-35.2); Mean Corpuscular Hemoglobin 30.9 pg (26.7-34.0); Mean Corpuscular Volume 96.3 fL (81.0-99.0); Mean Platelet Volume 9.7 fL (9.5-13.5); Monocytes Absolute Auto 0.6 10^3/uL (0.3-0.8); Monocytes Percent Auto 9.2 % (1.7-12.0); Neutrophils Absolute Auto 4.2 10^3/uL (1.4-6.5); Neutrophils Percent Auto 67.6 % (43.0-75.0); Platelet Count 201 10^3/uL (150-450); Red Blood Count 3.79 10^6/uL (4.20-5.40); Red Cell Distribution Width 12.9 % (11.0-15.0); White Blood Count 6.2 10^3/uL (4.0-11.0)
[2023-10-26 09:24] LABS: Alanine Aminotransferase 25 U/L (14-59); Albumin Level 3.4 g/dL (3.4-5.0); Alkaline Phosphatase 42 U/L (46-116); Anion Gap 11.6; Aspartate Amino Transferase 24 U/L (15-37); BUN Creatinine Ratio 26.1; Bilirubin Total 0.4 mg/dL (0.2-1.0); Calcium 8.7 mg/dL (8.5-10.1); Carbon Dioxide 26.6 mmol/L (21.0-32.0); Chloride 104 mmol/L (98-107); Chol HDL Ratio 2.1; Cholesterol 157 mg/dL (<=200); Estimated GFR (African America >60 (>=60); Estimated GFR (Non-African Ame >60 (>=60); Globulin 3.4 g/dL; Glucose 82 mg/dL (74-106); HDL Cholesterol 74 mg/dL (40-60); Potassium 4.2 mmol/L (3.5-5.1); Sodium 138 mmol/L (136-145); Total Protein 6.8 g/dL (6.4-8.2); Triglycerides 28 mg/dL (<=150); VLDL CHOLESTEROL 5.6 mg/dL
== END 2023-10-26 08:40 | disposition home or self-care (01) ==
LOC: LAB 08:41
PROVIDERS: PCP Family Medicine; Visit Provider Family Medicine
DX: R31.9 Hematuria, unspecified (principal); E78.5 Hyperlipidemia, unspecified; Z79.899 Other long term (current) drug therapy
CPT/HCPCS: 36415; 80053; 80061; 82607; 82746; 85025

== ENCOUNTER 2023-12-04 07:35 | Outpatient (OUT) | payer MEDICARE, SELFPAY ==
--- OUTSIDE RECORDS SUMMARY | 2023-12-04 07:37 | XMS_ITS | CCD ---
Author Organization [facility] Care Team Providers Care Radiation Oncology Manager Name Role Phone Casandra Chopra Unavailable Casandra Chopra Primary Care Physician [phone] NAV, DR GUAJARDO Consulting Unavailable GIRVIN, DR GUAJARDO Attending Unavailable GIRVIN, DR GUAJAROD Admitting Unavailable GIRVIN, DR GUAJARDO Primary Care [...] Unavailable GIRLAURA, DR GUAJARDO Primary Care Unavailable DANYMARSHALL Attending Unavailable DANY, MARSHALL Admitting Unavailable MISC, DR CUMMINS Consulting Unavailable GIRVIN, DR GUAJARDO Consulting Unavailable GIRVIN, DR GUAJARDO Attending Unavailable GIRVIN, DR GUAJARDO Admitting Unavailable GIRLAURA, DR GUAJARDO Primary Care Unavailable GIRLAURA, DR GUAJARDO Consulting Unavailable NAV, DR GUAJARDO Attending Unavailable GIRLAURA, DR GUAJARDO Admitting Unavailable GIRVIN, DR GUAJARDO Primary Care Unavailable GIRVIN, DR GUAJARDO Consulting Unavailable GIRVIN, DR GUAJARDO Attending Unavailable GIRVIN, DR GUAJARDO Admitting Unavailable GIRLAURA, DR GUAJARDO Primary Care Unavailable WEST, DR CASANDRA Mccall Consulting Unavailable RAY, DR COY Admitting Unavailable BELL, DR COY Consulting Unavailable BELL, DR COY Attending Unavailable Germaine Manuel Unavailable DO Josiah Samuel Primary Care Provider [phone] PITO Manuel Attending Provider Eva Cortes Unavailable Germaine Manuel Attending Unavailable Germaine Manuel Admitting Unavailable Josiah Samuel Primary Care Unavailable Allergies Allergy Classification Reported Allergen(s) Allergy Type Date of Onset Reaction(s) Facility (20 sources) buPROPion; Translations: [Bupropion] Drug Allergy Anxiety (finding) [facility] Other (19 sources) traMADol Drug Allergy constipation [facility] Other (1 source) Acetaminophen / HYDROcodone Drug Allergy [facility] Repository Medications Current Medications Medication Drug Class(es) Dates Sig (Normalized) Sig (Original) 8 hr acetaminophen 650 mg extended release oral tablet (16 sources) take 2 tablets by mouth every eight hours as needed Tylenol 8 Hour Arthritis Pain 650 MG 2 tablets as needed Orally every 8 hrs Active [id number] actuat albuterol 0.09 mg/actuat metered dose [...] spray(s) nasal route twic e daily Ipratropium [place] 0.03 % 2 sprays in each nostril [...] 2 Chronic Other aftercare (5 sources) Other detention (current) drug therapy; Translations: [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 Z79.899] Onset: 1 Resolved: [...] mri xrayon 02-19 XR pre/post mri xray [facility] Main [address] [address] MRI Report Signed Patient: Genna Herrera MR#: [id number] 52 : 1950 Acct:[id number] Age/Sex: 72 / F ADM Date: 02/19/23 Loc: MR Room: Type: [facility] Attending Dr: Germaine SHELDON Copies to: PITO Toure Ordering Provider: PITO Toure Date of Service: 02/19/23 MR/MR thoracic spine wo con: S22.060a ([id number]) XR/XR pre/post mri xray: S22.060a MR thoracic [...] David Corley M.D.02/19/2023 8:19 PM Dictation Location: [place] [address] Transcribed By: [facility] 02/19/232018 Dictated By: David Corley II, MD 02/19/232008 Signed By: 02/19/232018 [facility] CT LUNG CANCER SCREENINGon 0 12-03-2022 [...] MARII TURCIOS Date: 2022-12-03 08:20 Normal [facility] CBC AUTO DIFFon 10-22-2022 BASO # 0.1 103/ul Normal 0.0-0.1 [facility] Comment on above: Performed By: #### C BC #### [facility] [address] [place] [address] Dr. Renato Weller Basophils/100 WBC (Bld) 1.5 % Normal 0.2-2.0 [facility] Comment on above: Performed By: #### C BC #### [facility] [address] [place] [address] Dr. Renato Weller EO # 0.1 103/ul Normal 0.0-0.7 [facility] Comment on above: Performed By: #### C BC #### [facility] [address] [place] [address] Dr. Renato Weller Eosinophils/100 WBC (Bld) 1.4 % Normal 0.9-7.0 [facility] Comment on above: Performed By: #### C BC #### [facility] [address] [place] [address] Dr. Renato Weller Erythrocyte distribution width (RBC) [Ratio] 13.4 % Normal 11.0-15.0 [facility] Comment on above: Performed By: #### C BC #### [facility] [address] [place] [address] Dr. Renato Weller Hematocrit (Bld) [Volume fraction] 40.8 % Normal 36.0-48.0 [facility] Comment on above: Performed By: #### C BC #### [facility] [address] [place] [address] Dr. Renato Weller Hemoglobin (Bld) [Mass/Vol] 12.9 g/dL Normal 12.0-16.0 [facility] Comment on above: Performed By: #### C BC #### [facility] [address] [place] [address] Dr. Renato Weller IG # 0.01 10e3/ul Normal 0.00-0.03 [facility] Comment on above: Performed By: #### C BC #### [facility] [address] [place] [address] Dr. Renato Weller IG % 0.2 % Normal 0.0-0.5 [facility] Comment on above: Performed By: #### C BC #### [facility] [address] [place] [address] Dr. Renato Weller LYMPH # 1.0 103/ul Critically low 1.2-3.8 [facility] Comment on above: Performed By: #### C BC #### [facility] [address] [place] [address] Dr. Renato Weller Lymphocytes/100 WBC (Bld) 16.2 % Critically low 20.5-60.0 [facility] Comment on above: Performed By: #### C BC #### [facility] [address] [place] [address] Dr. Renato Weller MANUAL DIFF REQ NO Normal [facility] Comment on above: Performed By: #### C BC #### [facility] [address] [place] [address] Dr. Renato Weller MCH (RBC) [Entitic mass] 30.2 pg Normal 26.7-34.0 [facility] Comment on above: Performed By: #### C BC #### [facility] [address] [place] [address] Dr. Renato Weller MCHC (RBC) [Mass/Vol] 31.6 g/dL Normal 29.9-35.2 [facility] Comment on above: Performed By: #### C BC #### [facility] [address] [place] [address] Dr. Renato Weller MCV (RBC) [Entitic vol] 95.6 fL Normal 81.0-99.0 [facility] Comment on above: Performed By: #### C BC #### [facility] [address] [place] [address] Dr. Renato Weller MONO # 0.5 103/ul Normal 0.3-0.8 [facility] Comment on above: Performed By: #### C BC #### [facility] [address] [place] [address] Dr. Renato Weller Monocytes/100 WBC (Bld) 8.2 % Normal 1.7-12.0 [facility] Comment on above: Performed By: #### C BC #### [facility] [address] [place] [address] Dr. Renato Weller NEUT # 4.3 103/ul Normal 1.4-6.5 [facility] Comment on above: Performed By: #### C BC #### [facility] [address] [place] [address] Dr. Renato Weller Neutrophils/100 WBC (Bld) 72.5 % Normal 43.0-75.0 [facility] Comment on above: Performed By: #### C BC #### [facility] [address] [place] [address] Dr. Renato Weller Platelet mean volume (Bld) [Entitic vol] 9.4 fL Critically low 9.5-13.5 [facility] Comment on above: Performed By: #### C BC #### [facility] [address] [place] [address] Dr. Renato Weller PLT 206 103/ul Normal 150-450 [facility] Comment on above: Performed By: #### C BC #### [facility] [address] [place] [address] Dr. Renato Weller RBC 4.27 106/ul Normal 4.20-5.40 [facility] Comment on above: Performed By: #### C BC #### [facility] [address] [place] [address] Dr. Renato Weller WBC 5.9 103/ul Normal 4.0-11.0 [facility] Comment on above: Performed By: #### C BC #### [facility] [address] [place], [place] [address] Dr. Renato Weller LIPID PROFILEon 10-22-2022 CHOL-HDL RATIO NORM SEE BELOW Normal [facility] Comment on above: Result Comment: 3.3 - 4.4 LOW RISK 4.4 - 7.1 AVERAGE RISK 7.1 - 11.0 MODERATE RISK >11.0 HIGH RISK Performed By: #### L IPID, CMP #### [facility] [address] [place] [address] [address] Renato Weller Cholesterol [Mass/Vol] 162 mg/dL Normal <=200 [facility] Comment on above: Performed By: #### L IPID, CMP #### [facility] [address] [place] [address] [address] Renato Weller Cholesterol in HDL [Mass/Vol] 69 mg/dL Critically high 40-60 [facility] Comment on above: Performed By: #### L IPID, CMP #### [facility] [address] [place] [address] [address] Renato Weller Cholesterol in LDL [Mass/Vol] 81.8 mg/dL Normal [facility] Comment on above: Performed By: #### L IPID, CMP #### [facility] [address] [place] [id number] [address] Renato Weller Cholesterol.total/C holesterol in HDL [Mass ratio] 2.3 {ratio} Normal [facility] Comment on above: Performed By: #### L IPID, CMP #### [facility] [address] [place] [address] [address] Renato Weller HDL NORMAL > or = 60 mg/dl - LO W CARDIOVASCULAR RISK <40 mg/dl - HIGH CARDIOVASCULAR RISK Normal [facility] Comment on above: Performed By: #### L IPID, CMP #### [facility] [address] [place] [id number] [address] Renato Weller LDL CALC NORMAL SEE BELOW Normal [facility] Comment on above: Result Comment: <100 mg/dl OPTIMAL 100 - 129 mg/dl NEAR OR ABOVE OPTIMAL 130 - 159 mg/dl BORDERLINE HIGH 160 - 189 mg/dl HIGH >190 mg/dl VERY HIGH Performed By: #### L IPID, CMP #### [facility] [address] [place] [address] Dr. Renato Weller Triglyceride [Mass/Vol] 56 mg/dL Normal <=150 [facility] Comment on above: Performed By: #### L IPID, CMP #### [facility] [address] [place] [address] Dr. Renato Weller VLDL CALC 11.2 mg/dL Normal [facility] Comment on above: Performed By: #### L IPID, CMP #### [facility] [address] [place] [address] Dr. Renato Weller PROF 14(COMP METB)on 023 Albumin [Mass/Vol] 3.7 g/dL Normal 3.4-5.0 [facility] Comment on above: Performed By: #### L IPID, CMP #### [facility] [address] [place] [address] Dr. Renato Weller Albumin/Globulin [Mass ratio] 1.1 {ratio} Normal [facility] Comment on above: Performed By: #### L IPID, CMP #### [facility] [address] [place] [address] Dr. Renato Weller ALP [Catalytic activity/Vol] 36 U/L Critically low 46-116 [facility] Comment on above: Performed By: #### L IPID, CMP #### [facility] [address] [place] [address] Dr. Renato Weller ALT [Catalytic activity/Vol] 24 U/L Normal 14-59 [facility] Comment on above: Performed By: #### L IPID, CMP #### [facility] [address] [place] [address] Dr. Renato Weller Anion gap [Moles/Vol] 12.2 mmol/L Normal [facility] Comment on above: Performed By: #### L IPID, CMP #### [facility] [address] [place] [address] Dr. Renato Weller AST [Catalytic activity/Vol] 18 U/L Normal 15-37 [facility] Comment on above: Performed By: #### L IPID, CMP #### [facility] [address] [place] [address] Dr. Renato Weller Bilirubin [Mass/Vol] 0.3 mg/dL Normal 0.2-1.0 [facility] Comment on above: Performed By: #### L IPID, CMP #### [facility] [address] [place] [address] Dr. Renato Weller Calcium [Mass/Vol] 9.0 mg/dL Normal 8.5-10.1 [facility] Comment on above: Performed By: #### L IPID, CMP #### [facility] [address] [place] [address] Dr. Renato Weller Chloride [Moles/Vol] 102 mmol/L Normal 98-107 [facility] Comment on above: Performed By: #### L IPID, CMP #### [facility] [address] [place] [address] Dr. Renato Weller CO2 [Moles/Vol] 29.1 mmol/L Normal 21.0-32.0 [facility] Comment on above: Performed By: #### L IPID, CMP #### [facility] [address] [place] [address] Dr. Renato Weller Creatinine [Mass/Vol] 0.83 mg/dL Normal 0.55-1.02 [facility] Comment on above: Performed By: #### L IPID, CMP #### [facility] [address] [place] [address] Dr. Renato Weller EGFR-AF DJIBOUTIAN >60 Normal >=60 [facility] Comment on above: Performed By: #### L IPID, CMP #### [facility] [address] [place] [address] Dr. Renato Weller EGFR-NON AF DJIBOUTIAN >60 Normal >=60 [facility] Comment on above: Performed By: #### L IPID, CMP #### [facility] [address] [place] [address] Dr. Renato Weller Globulin (S) [Mass/Vol] 3.5 g/dL Normal [facility] Comment on above: Performed By: #### L IPID, CMP #### [facility] [address] [place] [address] Dr. Renato Weller Glucose [Mass/Vol] 85 mg/dL Normal 74-106 [facility] Comment on above: Performed By: #### L IPID, CMP #### [facility] [address] [place] [address] Dr. Renato Weller Potassium [Moles/Vol] 4.3 mmol/L Normal 3.5-5.1 [facility] Comment on above: Performed By: #### L IPID, CMP #### [facility] [address] [place] [address] Dr. Renato Weller Protein [Mass/Vol] 7.2 g/dL Normal 6.4-8.2 [facility] Comment on above: Performed By: #### L IPID, CMP #### [facility] [address] [place] [address] Dr. Renato Weller Sodium [Moles/Vol] 139 mmol/L Normal 136-145 [facility] Comment on above: Performed By: #### L IPID, CMP #### [facility] [address] [place] [address] Dr. Renato Weller Urea nitrogen [Mass/Vol] 14.0 mg/dL Normal 7.0-18.0 [facility] Comment on above: Performed By: #### L IPID, CMP #### [facility] [address] [place] [address] Dr. Renato Weller Urea nitrogen/Creatinine [Mass ratio] 16.9 mg/mg Normal [facility] Comment on above: Performed By: #### L IPID, CMP #### [facility] [address] [place] [address] Dr. Renato Weller C3 and C4 COMPLEMENTon 08-19 Complement C3, Serum 110 mg/dL Normal 82-167 [facility] Comment on above: Performed By: #### U AMIC #### [facility] [address] [place] [address] Dr. Renato Weller Complement C4, Serum 20 mg/dL Normal 12-38 [facility] Comment on above: Performed By: #### U AMIC #### [facility] [address] [place] [address] [address] Renato Weller COMPLEMENT TOTAL (CH50)on Complement, Total (CH50) >60 Normal >41 [facility] Comment on above: Result Comment: Age [...] values. Performed By: #### C H50T #### [facility] [address] [place] [address] [address] Renato Weller CBC AUTO DIFFon 08-18-2022 BASO # 0.1 103/ul Normal 0.0-0.1 [facility] Comment on above: Performed By: #### C H50T #### [facility] [address] [place] [address] [address] Renato Weller Basophils/100 WBC (Bld) 1.8 % Normal 0.2-2.0 [facility] Comment on above: Performed By: #### C H50T #### [facility] [address] [place] [address] [address] Renato Weller EO # 0.1 103/ul Normal 0.0-0.7 [facility] Comment on above: Performed By: #### C H50T #### [facility] [address] [place] [address] [address] Renato Weller Eosinophils/100 WBC (Bld) 1.8 % Normal 0.9-7.0 [facility] Comment on above: Performed By: #### C H50T #### [facility] [address] [place] [address] [address] Renato Weller Erythrocyte distribution width (RBC) [Ratio] 13.2 % Normal 11.0-15.0 [facility] Comment on above: Performed By: #### C H50T #### [facility] [address] [place] [address] Dr. Renato Weller Hematocrit (Bld) [Volume fraction] 39.9 % Normal 36.0-48.0 [facility] Comment on above: Performed By: #### C H50T #### [facility] [address] [place] [address] Dr. Renato Weller Hemoglobin (Bld) [Mass/Vol] 13.2 g/dL Normal 12.0-16.0 [facility] Comment on above: Performed By: #### C H50T #### [facility] [address] [place] [address] Dr. Renato Weller IG # 0.02 10e3/ul Normal 0.00-0.03 [facility] Comment on above: Performed By: #### C H50T #### [facility] [address] [place] [address] Dr. Renato Weller IG % 0.4 % Normal 0.0-0.5 [facility] Comment on above: Performed By: #### C H50T #### [facility] [address] [place] [address] Dr. Renato Weller LYMPH # 1.1 103/ul Critically low 1.2-3.8 [facility] Comment on above: Performed By: #### C H50T #### [facility] [address] [place] [address] Dr. Renato Weller Lymphocytes/100 WBC (Bld) 18.4 % Critically low 20.5-60.0 [facility] Comment on above: Performed By: #### C H50T #### [facility] [address] [place] [address] Dr. Renato Weller MANUAL DIFF REQ NO Normal [facility] Comment on above: Performed By: #### C H50T #### [facility] [address] [place] [address] Dr. Renato Weller MCH (RBC) [Entitic mass] 31.0 pg Normal 26.7-34.0 [facility] Comment on above: Performed By: #### C H50T #### [facility] [address] [place] [address] Dr. Renato Weller MCHC (RBC) [Mass/Vol] 33.1 g/dL Normal 29.9-35.2 [facility] Comment on above: Performed By: #### C H50T #### [facility] [address] [place] [address] Dr. Renato Weller MCV (RBC) [Entitic vol] 93.7 fL Normal 81.0-99.0 [facility] Comment on above: Performed By: #### C H50T #### [facility] [address] [place] [address] Dr. Renato Weller MONO # 0.5 103/ul Normal 0.3-0.8 [facility] Comment on above: Performed By: #### C H50T #### [facility] [address] [place] [address] Dr. Renato Weller Monocytes/100 WBC (Bld) 8.6 % Normal 1.7-12.0 [facility] Comment on above: Performed By: #### C H50T #### [facility] [address] [place] [address] Dr. Renato Weller NEUT # 3.9 103/ul Normal 1.4-6.5 [facility] Comment on above: Performed By: #### C H50T #### [facility] [address] [place] [address] Dr. Renato Weller Neutrophils/100 WBC (Bld) 69.0 % Normal 43.0-75.0 [facility] Comment on above: Performed By: #### C H50T #### [facility] [address] [place] [address] Dr. Renato Weller Platelet mean volume (Bld) [Entitic vol] 9.4 fL Critically low 9.5-13.5 [facility] Comment on above: Performed By: #### C H50T #### [facility] [address] [place] [address] Dr. Renato Weller PLT 191 103/ul Normal 150-450 [facility] Comment on above: Performed By: #### C H50T #### [facility] [address] [place] [address] Dr. Renato Weller RBC 4.26 106/ul Normal 4.20-5.40 [facility] Comment on above: Performed By: #### C H50T #### [facility] [address] [place] [address] Dr. Renato Weller WBC 5.7 103/ul Normal 4.0-11.0 [facility] Comment on above: Performed By: #### C H50T #### [facility] [address] [place] [address] Dr. Renato Weller MAGNESIUMon 08-18-2022 Magnesium [Mass/Vol] 2.1 mg/dL Normal 1.8-2.4 [facility] Comment on above: Performed By: #### L IPID, CMP #### [facility] [address] [place] [address] Dr. Renato Weller PHOSPHORUSon 08-18-2022 Phosphate [Mass/Vol] 3.5 mg/dL Normal 2.6-4.7 [facility] Comment on above: Performed By: #### L IPID, CMP #### [facility] [address] [place] [address] Dr. Renato Weller PROF 14(COMP METB)on 023 Albumin [Mass/Vol] 3.7 g/dL Normal 3.4-5.0 [facility] Comment on above: Performed By: #### L IPID, CMP #### [facility] [address] [place] [address] Dr. Renato Weller Albumin/Globulin [Mass ratio] 1.2 {ratio} Normal [facility] Comment on above: Performed By: #### L IPID, CMP #### [facility] [address] [place] [address] Dr. Renato Weller ALP [Catalytic activity/Vol] 37 U/L Critically low 46-116 [facility] Comment on above: Performed By: #### L IPID, CMP #### [facility] [address] [place] [address] [address] Renato Weller ALT [Catalytic activity/Vol] 18 U/L Normal 14-59 [facility] Comment on above: Performed By: #### L IPID, CMP #### [facility] [address] [place] [address] [address] Renato Weller Anion gap [Moles/Vol] 13.5 mmol/L Normal [facility] Comment on above: Performed By: #### L IPID, CMP #### [facility] [address] [place] [address] [address] Renato Weller AST [Catalytic activity/Vol] 19 U/L Normal 15-37 [facility] Comment on above: Performed By: #### L IPID, CMP #### [facility] [address] [place] [address] [address] Renato Weller Bilirubin [Mass/Vol] 0.4 mg/dL Normal 0.2-1.0 [facility] Comment on above: Performed By: #### L IPID, CMP #### [facility] [address] [place] [address] [address] Renato Weller Calcium [Mass/Vol] 8.7 mg/dL Normal 8.5-10.1 [facility] Comment on above: Performed By: #### L IPID, CMP #### [facility] [address] [place] [address] [address] Renato Weller Chloride [Moles/Vol] 104 mmol/L Normal 98-107 [facility] Comment on above: Performed By: #### L IPID, CMP #### [facility] [address] [address] Dr. Renato Weller CO2 [Moles/Vol] 27.8 mmol/L Normal 21.0-32.0 [facility] Comment on above: Performed By: #### L IPID, CMP #### [facility] [address] [address] [address] Renato Weller Creatinine [Mass/Vol] 0.67 mg/dL Normal 0.55-1.02 [facility] Comment on above: Performed By: #### L IPID, CMP #### [facility] [address] [address] [address] Renato Weller EGFR-AF DJIBOUTIAN >60 Normal >=60 [facility] Comment on above: Performed By: #### L IPID, CMP #### [facility] [address] [address] [address] Renato Weller EGFR-NON AF DJIBOUTIAN >60 Normal >=60 [facility] Comment on above: Performed By: #### L IPID, CMP #### [facility] [address] [address] [address] Renato Weller Globulin (S) [Mass/Vol] 3.0 g/dL Normal [facility] Comment on above: Performed By: #### L IPID, CMP #### [facility] [address] [address] [address] Renato Weller Glucose [Mass/Vol] 87 mg/dL Normal 74-106 [facility] Comment on above: Performed By: #### L IPID, CMP #### [facility] [address] [address] [address] Renato Weller Potassium [Moles/Vol] 4.3 mmol/L Normal 3.5-5.1 [facility] Comment on above: Performed By: #### L IPID, CMP #### [facility] [address] [address] [address] Renato Weller Protein [Mass/Vol] 6.7 g/dL Normal 6.4-8.2 [facility] Comment on above: Performed By: #### L IPID, CMP #### [facility] [address] [address] [address] Renato Weller Sodium [Moles/Vol] 141 mmol/L Normal 136-145 [facility] Comment on above: Performed By: #### L IPID, CMP #### [facility] [address] [address] [address] Renato Weller Urea nitrogen [Mass/Vol] 11.0 mg/dL Normal 7.0-18.0 [facility] Comment on above: Performed By: #### L IPID, CMP #### [facility] [address] [place] [address] Dr. Renato Weller Urea nitrogen/Creatinine [Mass ratio] 16.4 mg/mg Normal [facility] Comment on above: Performed By: #### L IPID, CMP #### [facility] [address] [place] [address] Dr. Renato Weller SED RATE WESTERGRENon 2022 SED RATE 43 mm/hr Critically high <=30 [facility] Comment on above: Performed By: #### S EDR #### [facility] [address] [place] [address] Dr. Renato Weller UA RANDOM W/MICROSCOPICon BACTERIA NONE SEEN Normal NONE SEEN [facility] Comment on above: Performed By: #### U AMIC #### [facility] [address] [place] [address] Dr. Renato Weller Bilirubin Ql (U) LARGE Abnormal NEGATIVE [facility] Comment on above: Performed By: #### U AMIC #### [facility] [address] [place] [address] Dr. Renato Weller CAST NONE SEEN Normal NONE SEEN [facility] Comment on above: Performed By: #### U AMIC #### [facility] [address] [place] [address] Dr. Renato Weller Clarity (U) CLEAR Normal CLEAR [facility] Comment on above: Performed By: #### U AMIC #### [facility] [address] [place] [address] Dr. Renato Weller Color (U) LT. YELLOW Normal YELLOW [facility] Comment on above: Performed By: #### U AMIC #### [facility] [address] [place] [address] Dr. Renato Weller Crystals LM Nom (Urine sed) NONE SEEN Normal NONE SEEN [facility] Comment on above: Performed By: #### U AMIC #### [facility] [address] [place] [address] Dr. Renato Weller Epithelial cells LM Ql (Urine sed) NONE SEEN Normal NONE SEEN /RARE The [facility] Comment on above: Performed By: #### U AMIC #### [facility] [address] [address] [address] Renato Weller Glucose Ql (U) Negative Normal NEGATIVE The [facility] Comment on above: Performed By: #### U AMIC #### [facility] [address] [address] [address] Renato Weller Hemoglobin Ql (U) Negative Normal NEGATIVE The [facility] Comment on above: Performed By: #### U AMIC #### [facility] [address] [address] [address] Renato Weller Ketones Ql (U) Negative Normal NEGATIVE [facility] Comment on above: Performed By: #### U AMIC #### [facility] [address] [place] [address] Dr. Renato Weller LEUKOCYTES SMALL Abnormal NEGATIVE [facility] Comment on above: Performed By: #### U AMIC #### [facility] [address] [address] [address] Renato Weller MUCOUS NONE SEEN Normal NONE SEEN The [facility] Comment on above: Performed By: #### U AMIC #### [facility] [address] [address] [address] Renato Weller Nitrite Ql (U) Negative Normal NEGATIVE [facility] Comment on above: Performed By: #### U AMIC #### [facility] [address] [address] [address] Renato Weller pH (U) 7.0 [pH] Normal 5-9 [facility] Comment on above: Performed By: #### U AMIC #### [facility] [address] [address] [address] Renato Weller RBC 0-2 Normal 0-2 [facility] Comment on above: Performed By: #### U AMIC #### [facility] [address] [place] [address] Dr. Renato Weller SPEC GRAVITY 1.010 Normal 1.005-<=1.025 [facility] Comment on above: Performed By: #### U AMIC #### [facility] [address] [address] [address] Renato Weller UA PROTEIN Negative Normal NEGATIVE/ TRACE The [facility] Comment on above: Performed By: #### U AMIC #### [facility] [address] [address] [address] Renato Weller Urobilinogen Qn (U) 0.2 {Paul'U}/dL Normal 0.2 - 1. 0 [facility] Comment on above: Performed By: #### U AMIC #### [facility] [address] [address] [address] Renato Weller WBC NONE SEEN Normal NONE SEEN [facility] Comment on above: Performed By: #### U AMIC #### [facility] [address] [place] [address] Dr. Renato Weller CULTURE URINEon 05-12-2022 CULTURE URINE Culture Observations : LIGHT GROWTH OF MIXED GENITAL ROMEL. NO POTENTIAL PATHOGENS SEEN. Normal The [facility] Comment on above: Performed By: #### U AMIC #### [facility] [address] [place] [address] Dr. Renato Weller UA RANDOM W/MICROSCOPICon BACTERIA TRACE Abnormal NONE SEEN [facility] Comment on above: Performed By: #### C H50T #### [facility] [address] [place] [address] Dr. Renato Weller Bilirubin Ql (U) LARGE Abnormal NEGATIVE [facility] Comment on above: Performed By: #### C H50T #### [facility] [address] [place] [address] Dr. Renato Weller CAST NONE SEEN Normal NONE SEEN [facility] Comment on above: Performed By: #### C H50T #### [facility] [address] [place] [address] Dr. Renato Weller Clarity (U) CLEAR Normal CLEAR The [facility] Comment on above: Performed By: #### C H50T #### [facility] [address] [place] [address] Dr. Renato Weller Color (U) LT. YELLOW Normal YELLOW The [facility] Comment on above: Performed By: #### C H50T #### [facility] [address] [place] [address] Dr. Renato Weller Crystals LM Nom (Urine sed) NONE SEEN Normal NONE SEEN [facility] Comment on above: Performed By: #### C H50T #### [facility] [address] [place] [address] Dr. Renato Weller Epithelial cells LM Ql (Urine sed) MODERATE Abnormal NONE SEEN /RARE The [facility] Comment on above: Performed By: #### C H50T #### [facility] [address] [place] [address] Dr. Renato Weller Glucose Ql (U) Negative Normal NEGATIVE [facility] Comment on above: Performed By: #### C H50T #### [facility] [address] [place] [address] Dr. Renato Weller Hemoglobin Ql (U) Negative Normal NEGATIVE [facility] Comment on above: Performed By: #### C H50T #### [facility] [address] [place] [address] Dr. Renato Weller Ketones Ql (U) Negative Normal NEGATIVE [facility] Comment on above: Performed By: #### C H50T #### [facility] [address] [place] [address] Dr. Renato Weller LEUKOCYTES SMALL Abnormal NEGATIVE [facility] Comment on above: Performed By: #### C H50T #### [facility] [address] [address] [address] Renato Weller MUCOUS NONE SEEN Normal NONE SEEN [facility] Comment on above: Performed By: #### C H50T #### [facility] [address] [place] [address] Dr. Renato Weller Nitrite Ql (U) Negative Normal NEGATIVE [facility] Comment on above: Performed By: #### C H50T #### [facility] [address] [place] [address] Dr. Renato Weller pH (U) 6.0 [pH] Normal 5-9 [facility] Comment on above: Performed By: #### C H50T #### [facility] [address] [address] [address] Renato Weller RBC 0-2 Normal 0-2 [facility] Comment on above: Performed By: #### C H50T #### [facility] [address] [address] [address] Renato Weller SPEC GRAVITY 1.025 Normal 1.005-<=1.025 [facility] Comment on above: Performed By: #### C H50T #### [facility] [address] [place] [address] Dr. Renato Weller UA PROTEIN Negative Normal NEGATIVE/ TRACE [facility] Comment on above: Performed By: #### C H50T #### [facility] [address] [place] [address] Dr. Renato Weller Urobilinogen Qn (U) 0.2 {Paul'U}/dL Normal 0.2 - 1. 0 [facility] Comment on above: Performed By: #### C H50T #### [facility] [address] [place] [address] Dr. Renato Weller WBC 5-10 Abnormal NONE SEEN [facility] Comment on above: Performed By: #### C H50T #### [facility] [address] [place] [address] Dr. Renato Weller CULTURE URINEon 05-02-2022 CULTURE URINE Culture Observations : MODERATE GROWTH OF MIXED GENITAL ROMEL. PLEASE RESUBMIT CLEAN CATCH MID-STREAM URINE IF CLINICALLY INDICATED. Normal The [facility] Comment on above: Performed By: #### U AMIC #### [facility] [address] [place] [address] Dr. Renato Weller UA RANDOM W/MICROSCOPICon BACTERIA LARGE Abnormal NONE SEEN The [facility] Comment on above: Performed By: #### U AMIC #### [facility] [address] [place] [address] Dr. Renato Weller Bilirubin Ql (U) MODERATE Abnormal NEGATIVE [facility] Comment on above: Performed By: #### U AMIC #### [facility] [address] [address] [address] Renato Weller CAST NONE SEEN Normal NONE SEEN The [facility] Comment on above: Performed By: #### U AMIC #### [facility] [address] [address] [address] Renato Weller Clarity (U) CLEAR Normal CLEAR [facility] Comment on above: Performed By: #### U AMIC #### [facility] [address] [address] [address] Renato Weller Color (U) LT. YELLOW Normal YELLOW The [facility] Comment on above: Performed By: #### U AMIC #### [facility] [address] [place] [address] Dr. Renato Weller Crystals LM Nom (Urine sed) NONE SEEN Normal NONE SEEN [facility] Comment on above: Performed By: #### U AMIC #### [facility] [address] [place] [address] Dr. Renato Weller Epithelial cells LM Ql (Urine sed) MODERATE Abnormal NONE SEEN /RARE The [facility] Comment on above: Performed By: #### U AMIC #### [facility] [address] [place] [address] Dr. Renato Weller Glucose Ql (U) Negative Normal NEGATIVE [facility] Comment on above: Performed By: #### U AMIC #### [facility] [address] [place] [address] Dr. Renato Weller Hemoglobin Ql (U) LARGE Abnormal NEGATIVE The [facility] Comment on above: Performed By: #### U AMIC #### [facility] [address] [place] [address] Dr. Renato Weller Ketones Ql (U) Negative Normal NEGATIVE [facility] Comment on above: Performed By: #### U AMIC #### [facility] [address] [place] [address] Dr. Renato Weller LEUKOCYTES LARGE Abnormal NEGATIVE The [facility] Comment on above: Performed By: #### U AMIC #### [facility] [address] [place] [address] Dr. Renato Weller MUCOUS NONE SEEN Normal NONE SEEN The [facility] Comment on above: Performed By: #### U AMIC #### [facility] [address] [address] [address] Renato Weller Nitrite Ql (U) Negative Normal NEGATIVE [facility] Comment on above: Performed By: #### U AMIC #### [facility] [address] [address] [address] Renato Weller pH (U) 6.0 [pH] Normal 5-9 [facility] Comment on above: Performed By: #### U AMIC #### [facility] [address] [address] [address] Renato Weller RBC 5-10 Abnormal 0-2 [facility] Comment on above: Performed By: #### U AMIC #### [facility] [address] [place] [address] Dr. Renato Weller SPEC GRAVITY 1.020 Normal 1.005-<=1.025 [facility] Comment on above: Performed By: #### U AMIC #### [facility] [address] [place] [address] Dr. Renato Weller UA PROTEIN Negative Normal NEGATIVE/ TRACE The [facility] Comment on above: Performed By: #### U AMIC #### [facility] [address] [place] [address] Dr. Renato Weller Urobilinogen Qn (U) 0.2 {Paul'U}/dL Normal 0.2 - 1. 0 [facility] Comment on above: Performed By: #### U AMIC #### [facility] [address] [place] [address] Dr. Renato Weller WBC 10-20 Abnormal NONE SEEN [facility] Comment on above: Performed By: #### U AMIC #### [facility] [address] [place] [address] Dr. Renato Weller XR CSPINE MIN 4 VIEWSon 10-2 XR CSPINE MIN 4 VIEWS EXAMINATION: XR [...] CASANDRA DURAN Date: 2022-05-01 17:38 Normal [facility] C3 and C4 COMPLEMENTon 04-15 Complement C3, Serum 115 mg/dL Normal 82-167 [facility] Comment on above: Performed By: #### C H50T #### [facility] [address] [place] [address] Dr. Renato Weller Complement C4, Serum 23 mg/dL Normal 12-38 [facility] Comment on above: Performed By: #### C H50T #### [facility] [address] [place] [address] Dr. Renato Weller COMPLEMENT TOTAL (CH50)on Complement, Total (CH50) >60 Normal >41 [facility] Comment on above: Result Comment: Age [...] values. Performed By: #### C H50T #### [facility] [address] [place] [address] Dr. Renato Weller CBC AUTO DIFFon 04-14-2022 BASO # 0.1 103/ul Normal 0.0-0.1 [facility] Comment on above: Performed By: #### C H50T #### [facility] [address] [place] [address] Dr. Renato Weller Basophils/100 WBC (Bld) 1.6 % Normal 0.2-2.0 [facility] Comment on above: Performed By: #### C H50T #### [facility] [address] [place] [address] Dr. Renato Weller EO # 0.1 103/ul Normal 0.0-0.7 [facility] Comment on above: Performed By: #### C H50T #### [facility] [address] [place] [address] Dr. Renato Weller Eosinophils/100 WBC (Bld) 2.0 % Normal 0.9-7.0 [facility] Comment on above: Performed By: #### C H50T #### [facility] [address] [place] [address] Dr. Renato Weller Erythrocyte distribution width (RBC) [Ratio] 12.8 % Normal 11.0-15.0 [facility] Comment on above: Performed By: #### C H50T #### [facility] [address] [place] [address] Dr. Renato Weller Hematocrit (Bld) [Volume fraction] 40.0 % Normal 36.0-48.0 [facility] Comment on above: Performed By: #### C H50T #### [facility] [address] [place] [address] Dr. Renato Weller Hemoglobin (Bld) [Mass/Vol] 12.8 g/dL Normal 12.0-16.0 [facility] Comment on above: Performed By: #### C H50T #### [facility] [address] [place] [address] Dr. Renato Weller IG # 0.02 10e3/ul Normal 0.00-0.03 [facility] Comment on above: Performed By: #### C H50T #### [facility] [address] [place] [address] Dr. Renato Weller IG % 0.4 % Normal 0.0-0.5 [facility] Comment on above: Performed By: #### C H50T #### [facility] [address] [place] [address] Dr. Renato Weller LYMPH # 1.1 103/ul Critically low 1.2-3.8 [facility] Comment on above: Performed By: #### C H50T #### [facility] [address] [place] [address] Dr. Renato Weller Lymphocytes/100 WBC (Bld) 22.2 % Normal 20.5-60.0 [facility] Comment on above: Performed By: #### C H50T #### [facility] [address] [place] [address] Dr. Renato Weller MANUAL DIFF REQ NO Normal The [facility] Comment on above: Performed By: #### C H50T #### [facility] [address] [place] [address] Dr. Renato Weller MCH (RBC) [Entitic mass] 31.3 pg Normal 26.7-34.0 [facility] Comment on above: Performed By: #### C H50T #### [facility] [address] [place] [address] Dr. Renato Weller MCHC (RBC) [Mass/Vol] 32.0 g/dL Normal 29.9-35.2 [facility] Comment on above: Performed By: #### C H50T #### [facility] [address] [place] [address] Dr. Renato Weller MCV (RBC) [Entitic vol] 97.8 fL Normal 81.0-99.0 [facility] Comment on above: Performed By: #### C H50T #### [facility] [address] [place] [address] Dr. Renato Weller MONO # 0.5 103/ul Normal 0.3-0.8 [facility] Comment on above: Performed By: #### C H50T #### [facility] [address] [place] [address] Dr. Renato Weller Monocytes/100 WBC (Bld) 9.8 % Normal 1.7-12.0 [facility] Comment on above: Performed By: #### C H50T #### [facility] [address] [place] [address] Dr. Renato Weller NEUT # 3.2 103/ul Normal 1.4-6.5 [facility] Comment on above: Performed By: #### C H50T #### [facility] [address] [address] [address] Renato Weller Neutrophils/100 WBC (Bld) 64.0 % Normal 43.0-75.0 [facility] Comment on above: Performed By: #### C H50T #### [facility] [address] [address] [address] Renato Weller Platelet mean volume (Bld) [Entitic vol] 9.3 fL Critically low 9.5-13.5 [facility] Comment on above: Performed By: #### C H50T #### [facility] [address] [address] [address] Renato Weller PLT 181 103/ul Normal 150-450 [facility] Comment on above: Performed By: #### C H50T #### [facility] [address] [place] [address] Dr. Renato Weller RBC 4.09 106/ul Critically low 4.20-5.40 [facility] Comment on above: Performed By: #### C H50T #### [facility] [address] [place] [address] Dr. Renato Weller WBC 5.0 103/ul Normal 4.0-11.0 [facility] Comment on above: Performed By: #### C H50T #### [facility] [address] [place] [address] Dr. Renato Wleler LIPID PROFILEon 04-14-2022 CHOL-HDL RATIO NORM SEE BELOW Normal [facility] Comment on above: Result Comment: 3.3 - 4.4 LOW RISK 4.4 - 7.1 AVERAGE RISK 7.1 - 11.0 MODERATE RISK >11.0 HIGH RISK Performed By: #### T SH, LIPID #### [facility] [address] [address] [address] Renato Weller Cholesterol [Mass/Vol] 176 mg/dL Normal <=200 [facility] Comment on above: Performed By: #### T SH, LIPID #### [facility] [address] [address] [address] Renato Weller Cholesterol in HDL [Mass/Vol] 71 mg/dL Critically high 40-60 [facility] Comment on above: Performed By: #### T SH, LIPID #### [facility] [address] [address] [address] Renato Weller Cholesterol in LDL [Mass/Vol] 94.0 mg/dL Normal [facility] Comment on above: Performed By: #### T SH, LIPID #### [facility] [address] [address] [address] Renato Weller Cholesterol.total/C holesterol in HDL [Mass ratio] 2.5 {ratio} Normal [facility] Comment on above: Performed By: #### T SH, LIPID #### [facility] [address] [address] [address] Renato Weller HDL NORMAL > or = 60 mg/dl - LO W CARDIOVASCULAR RISK <40 mg/dl - HIGH CARDIOVASCULAR RISK Normal [facility] Comment on above: Performed By: #### T SH, LIPID #### [facility] 03 [place] [address] Dr. Renato Weller LDL CALC NORMAL SEE BELOW Normal [facility] Comment on above: Result Comment: <100 mg/dl OPTIMAL 100 - 129 mg/dl NEAR OR ABOVE OPTIMAL 130 - 159 mg/dl BORDERLINE HIGH 160 - 189 mg/dl HIGH >190 mg/dl VERY HIGH Performed By: #### T SH, LIPID #### [facility] [address] [address] [address] Renato Weller Triglyceride [Mass/Vol] 55 mg/dL Normal <=150 [facility] Comment on above: Performed By: #### T SH, LIPID #### [facility] [address] [place] [address] Dr. Renato Weller VLDL CALC 11.0 mg/dL Normal [facility] Comment on above: Performed By: #### T SH, LIPID #### [facility] [address] [place] [address] Dr. Renato Weller MG MAMM SCREEN 3D HERBERT CADon 04-14-2022 MG MAMM SCREEN 3D HERBERT CAD Patient: GENNA HERRERA Exam Date: 04/14/2022 : 1950 Gender:F Ordering : DR CASANDRA CHOPRA Admission #: [id number] Family : Order #: [id number] CLICK HERE TO VIEW EXAM RADIOLOGY REPORT [...] ovarian cancer at age 44. LOCATION: [facility] BREAST COMPOSITION: Scattered areas fibroglandular density. [...] Duran MD on 04/14/2022 at 09:31 Normal [facility] PROF 14(COMP METB)on 022 Albumin [Mass/Vol] 3.8 g/dL Normal 3.4-5.0 [facility] Comment on above: Performed By: #### C MP #### [facility] [address] [place] [address] Dr. Renato Weller Albumin/Globulin [Mass ratio] 1.2 {ratio} Normal [facility] Comment on above: Performed By: #### C MP #### [facility] [address] [place] [address] Dr. Renato Weller ALP [Catalytic activity/Vol] 41 U/L Critically low 46-116 [facility] Comment on above: Performed By: #### C MP #### [facility] [address] [place] [address] Dr. Renato Weller ALT [Catalytic activity/Vol] 23 U/L Normal 14-59 [facility] Comment on above: Performed By: #### C MP #### [facility] [address] [place] [address] Dr. Renato Weller Anion gap [Moles/Vol] 10.0 mmol/L Normal [facility] Comment on above: Performed By: #### C MP #### [facility] [address] [address] [address] Renato Weller AST [Catalytic activity/Vol] 20 U/L Normal 15-37 [facility] Comment on above: Performed By: #### C MP #### [facility] [address] [address] [address] Renato Weller Bilirubin [Mass/Vol] 0.4 mg/dL Normal 0.2-1.0 [facility] Comment on above: Performed By: #### C MP #### [facility] [address] [address] [address] Renato Weller Calcium [Mass/Vol] 8.5 mg/dL Normal 8.5-10.1 [facility] Comment on above: Performed By: #### C MP #### [facility] [address] [address] [address] Renato Weller Chloride [Moles/Vol] 104 mmol/L Normal 98-107 [facility] Comment on above: Performed By: #### C MP #### [facility] [address] [address] [address] Renato Weller CO2 [Moles/Vol] 29.0 mmol/L Normal 21.0-32.0 [facility] Comment on above: Performed By: #### C MP #### [facility] [address] [address] [address] Renato Weller Creatinine [Mass/Vol] 0.69 mg/dL Normal 0.55-1.02 [facility] Comment on above: Performed By: #### C MP #### [facility] [address] [address] [address] Renato Weller EGFR-AF DJIBOUTIAN >60 Normal >=60 [facility] Comment on above: Performed By: #### C MP #### [facility] [address] [address] [address] Renato Weller EGFR-NON AF DJIBOUTIAN >60 Normal >=60 [facility] Comment on above: Performed By: #### C MP #### [facility] [address] [address] [address] Renato Weller Globulin (S) [Mass/Vol] 3.2 g/dL Normal [facility] Comment on above: Performed By: #### C MP #### [facility] [address] [address] [address] Renato Weller Glucose [Mass/Vol] 84 mg/dL Normal 74-106 [facility] Comment on above: Performed By: #### C MP #### [facility] [address] [address] [address] Renato Weller Potassium [Moles/Vol] 4.0 mmol/L Normal 3.5-5.1 [facility] Comment on above: Performed By: #### C MP #### [facility] [address] [place] [address] Dr. Renato Weller Protein [Mass/Vol] 7.0 g/dL Normal 6.4-8.2 [facility] Comment on above: Performed By: #### C MP #### [facility] [address] [address] [address] Renato Weller Sodium [Moles/Vol] 139 mmol/L Normal 136-145 [facility] Comment on above: Performed By: #### C MP #### [facility] [address] [address] [address] Renato Weller Urea nitrogen [Mass/Vol] 16.0 mg/dL Normal 7.0-18.0 [facility] Comment on above: Performed By: #### C MP #### [facility] [address] [address] [address] Renato Weller Urea nitrogen/Creatinine [Mass ratio] 23.2 mg/mg Normal [facility] Comment on above: Performed By: #### C MP #### [facility] [address] [address] [address] Renato Weller SED RATE Located within [facility] 2021 SED RATE 16 mm/hr Normal <=30 [facility] Comment on above: Performed By: #### U AMIC #### [facility] [address] [place] [address] Dr. Renato Weller TSHon 04-14-2022 TSH 3.056 uIU/mL Normal 0.358-3.740 [facility] Comment on above: Performed By: #### T SH, LIPID #### [facility] [address] [place] [address] Dr. Renato Weller UA RANDOM W/MICROSCOPICon BACTERIA MODERATE Abnormal NONE SEEN [facility] Comment on above: Performed By: #### C H50T #### [facility] [address] [place] [address] Dr. Renato Weller Bilirubin Ql (U) LARGE Abnormal NEGATIVE [facility] Comment on above: Performed By: #### C H50T #### [facility] [address] [place] [address] Dr. Renato Weller CAST NONE SEEN Normal NONE SEEN [facility] Comment on above: Performed By: #### C H50T #### [facility] [address] [place] [address] Dr. Renato Weller Clarity (U) CLEAR Normal CLEAR [facility] Comment on above: Performed By: #### C H50T #### [facility] [address] [place] [address] Dr. Renato Weller Color (U) LT. YELLOW Normal YELLOW [facility] Comment on above: Performed By: #### C H50T #### [facility] [address] [place] [address] Dr. Renato Weller Crystals LM Nom (Urine sed) NONE SEEN Normal NONE SEEN [facility] Comment on above: Performed By: #### C H50T #### [facility] [address] [place] [address] Dr. Renato Weller Epithelial cells LM Ql (Urine sed) MANY Abnormal NONE SEEN /RARE [facility] Comment on above: Performed By: #### C H50T #### [facility] [address] [place] [address] Dr. Renato Weller Glucose Ql (U) Negative Normal NEGATIVE [facility] Comment on above: Performed By: #### C H50T #### [facility] [address] [address] [address] Renato Weller Hemoglobin Ql (U) Negative Normal NEGATIVE [facility] Comment on above: Performed By: #### C H50T #### [facility] [address] [address] [address] Renato Weller Ketones Ql (U) Negative Normal NEGATIVE [facility] Comment on above: Performed By: #### C H50T #### [facility] [address] [address] [address] Renato Weller LEUKOCYTES LARGE Abnormal NEGATIVE [facility] Comment on above: Performed By: #### C H50T #### [facility] [address] [place] [address] Dr. Renato Weller MUCOUS NONE SEEN Normal NONE SEEN [facility] Comment on above: Performed By: #### C H50T #### [facility] [address] [place] [address] Dr. Renato Weller Nitrite Ql (U) Negative Normal NEGATIVE [facility] Comment on above: Performed By: #### C H50T #### [facility] [address] [place] [address] Dr. Renato Weller pH (U) 6.0 [pH] Normal 5-9 [facility] Comment on above: Performed By: #### C H50T #### [facility] [address] [place] [address] Dr. Renato Weller RBC 2-5 Abnormal 0-2 [facility] Comment on above: Performed By: #### C H50T #### [facility] [address] [address] [address] Renato Weller SPEC GRAVITY 1.025 Normal 1.005-<=1.025 [facility] Comment on above: Performed By: #### C H50T #### [facility] [address] [place] [address] Dr. Renato Weller UA PROTEIN Negative Normal NEGATIVE/ TRACE [facility] Comment on above: Performed By: #### C H50T #### [facility] [address] [address] [address] Renato Weller Urobilinogen Qn (U) 0.2 {Paul'U}/dL Normal 0.2 - 1. 0 [facility] Comment on above: Performed By: #### C H50T #### [facility] [address] [address] [address] Renato Weller WBC 10-20 Abnormal NONE SEEN [facility] Comment on above: Performed By: #### C H50T #### [facility] [address] [address] [address] Renato Weller RAD - CT Reporton 02-26-2022 RAD - CT Report [id number]:[id number] Normal [facility] CT ABDOMEN WO CONTRASTon CT ABDOMEN WO [...] MARII TURCIOS Date: 2022-02-19 17:17 Normal [facility] Ambulatory Visit Summaryon 0 02-04-2022 Ambulatory [...] Varicose veins of legs Ventral hernia Normal [facility] Physician Referralon 022 Physician Referral [id number]:[id number] Normal [facility] XR DEXA BONE DENSITYon 12-30 XR DEXA [...] by: CASANDRA DURAN Date: 2021-12-30 16:10 Normal [facility] C3 and C4 COMPLEMENTon 12-17 Complement C3, Serum 122 mg/dL Normal 82-167 [facility] Comment on above: Performed By: #### C SUITE #### [facility] [address] [place] [address] Dr. Renato Weller Complement C4, Serum 24 mg/dL Normal 12-38 [facility] Comment on above: Performed By: #### C SUITE #### [facility] [address] [place] [address] Dr. Renato Weller COMPLEMENT TOTAL (CH50)on Complement, Total (CH50) >60 Normal >41 [facility] Comment on above: Result Comment: Age [...] values. Performed By: #### C H50T #### [facility] [address] [place] [address] Dr. Renato Weller CBC AUTO DIFFon 12-16-2021 BASO # 0.1 103/ul Normal 0.0-0.1 [facility] Comment on above: Performed By: #### L IPID, CMP #### [facility] [address] [place] [address] Dr. Renato Weller Basophils/100 WBC (Bld) 1.8 % Normal 0.2-2.0 [facility] Comment on above: Performed By: #### L IPID, CMP #### [facility] [address] [place] [address] Dr. Renato Weller EO # 0.1 103/ul Normal 0.0-0.7 [facility] Comment on above: Performed By: #### L IPID, CMP #### [facility] [address] [place] [address] Dr. Renato Weller Eosinophils/100 WBC (Bld) 2.2 % Normal 0.9-7.0 [facility] Comment on above: Performed By: #### L IPID, CMP #### [facility] [address] [place] [address] Dr. Renato Weller Erythrocyte distribution width (RBC) [Ratio] 13.8 % Normal 11.0-15.0 [facility] Comment on above: Performed By: #### L IPID, CMP #### [facility] [address] [place] [address] Dr. Renato Weller Hematocrit (Bld) [Volume fraction] 39.4 % Normal 36.0-48.0 [facility] Comment on above: Performed By: #### L IPID, CMP #### [facility] [address] [place] [address] Dr. Renato Weller Hemoglobin (Bld) [Mass/Vol] 12.5 g/dL Normal 12.0-16.0 [facility] Comment on above: Performed By: #### L IPID, CMP #### [facility] [address] [place] [address] Dr. Renato Weller IG # 0.02 10e3/ul Normal 0.00-0.03 [facility] Comment on above: Performed By: #### L IPID, CMP #### [facility] [address] [place] [address] Dr. Renato Weller IG % 0.4 % Normal 0.0-0.5 [facility] Comment on above: Performed By: #### L IPID, CMP #### [facility] [address] [place] [address] Dr. Renato Weller LYMPH # 1.0 103/ul Critically low 1.2-3.8 [facility] Comment on above: Performed By: #### L IPID, CMP #### [facility] [address] [place] [address] Dr. Renato Weller Lymphocytes/100 WBC (Bld) 18.5 % Critically low 20.5-60.0 [facility] Comment on above: Performed By: #### L IPID, CMP #### [facility] [address] [place] [address] Dr. Renato Weller MANUAL DIFF REQ NO Normal [facility] Comment on above: Performed By: #### L IPID, CMP #### [facility] [address] [address] [address] Renato Weller MCH (RBC) [Entitic mass] 30.8 pg Normal 26.7-34.0 [facility] Comment on above: Performed By: #### L IPID, CMP #### [facility] [address] [place] [address] Dr. Renato Weller MCHC (RBC) [Mass/Vol] 31.7 g/dL Normal 29.9-35.2 [facility] Comment on above: Performed By: #### L IPID, CMP #### [facility] [address] [place] [address] Dr. Renato Weller MCV (RBC) [Entitic vol] 97.0 fL Normal 81.0-99.0 [facility] Comment on above: Performed By: #### L IPID, CMP #### [facility] [address] [place] [address] Dr. Renato Weller MONO # 0.5 103/ul Normal 0.3-0.8 [facility] Comment on above: Performed By: #### L IPID, CMP #### [facility] [address] [place] [address] Dr. Renato Weller Monocytes/100 WBC (Bld) 9.3 % Normal 1.7-12.0 [facility] Comment on above: Performed By: #### L IPID, CMP #### [facility] [address] [place] [address] Dr. Renato Weller NEUT # 3.8 103/ul Normal 1.4-6.5 [facility] Comment on above: Performed By: #### L IPID, CMP #### [facility] [address] [place] [address] Dr. Renato Weller Neutrophils/100 WBC (Bld) 67.8 % Normal 43.0-75.0 [facility] Comment on above: Performed By: #### L IPID, CMP #### [facility] [address] [place] [address] Dr. Renato Weller Platelet mean volume (Bld) [Entitic vol] 9.1 fL Critically low 9.5-13.5 [facility] Comment on above: Performed By: #### L IPID, CMP #### [facility] [address] [place] [address] Dr. Renato Weller PLT 240 103/ul Normal 150-450 [facility] Comment on above: Performed By: #### L IPID, CMP #### [facility] [address] [address] [address] Renato Weller RBC 4.06 106/ul Critically low 4.20-5.40 [facility] Comment on above: Performed By: #### L IPID, CMP #### [facility] [address] [place] [address] Dr. Renato Weller WBC 5.6 103/ul Normal 4.0-11.0 [facility] Comment on above: Performed By: #### L IPID, CMP #### [facility] [address] [place] [address] Dr. Renato Weller PROF 14(COMP METB)on 022 Albumin [Mass/Vol] 3.5 g/dL Normal 3.4-5.0 [facility] Comment on above: Performed By: #### C H50T #### [facility] [address] [place] [address] Dr. Renato Weller Albumin/Globulin [Mass ratio] 1.1 {ratio} Normal [facility] Comment on above: Performed By: #### C H50T #### [facility] [address] [place] [address] Dr. Renaot Weller ALP [Catalytic activity/Vol] 51 U/L Normal 46-116 [facility] Comment on above: Performed By: #### C H50T #### [facility] [address] [place] [address] Dr. Renato Weller ALT [Catalytic activity/Vol] 22 U/L Normal 14-59 [facility] Comment on above: Performed By: #### C H50T #### [facility] [address] [address] [address] Renato Weller Anion gap [Moles/Vol] 13.0 mmol/L Normal [facility] Comment on above: Performed By: #### C H50T #### [facility] [address] [address] [address] Renato Weller AST [Catalytic activity/Vol] 17 U/L Normal 15-37 [facility] Comment on above: Performed By: #### C H50T #### [facility] [address] [address] [address] Renato Weller Bilirubin [Mass/Vol] 0.4 mg/dL Normal 0.2-1.0 [facility] Comment on above: Performed By: #### C H50T #### [facility] [address] [place] [address] Dr. Renato Weller Calcium [Mass/Vol] 8.3 mg/dL Critically low 8.5-10.1 [facility] Comment on above: Performed By: #### C H50T #### [facility] [address] [place] [address] Dr. Renato Weller Chloride [Moles/Vol] 104 mmol/L Normal 98-107 [facility] Comment on above: Performed By: #### C H50T #### [facility] [address] [place] [address] Dr. Renato Weller CO2 [Moles/Vol] 27.4 mmol/L Normal 21.0-32.0 [facility] Comment on above: Performed By: #### C H50T #### [facility] [address] [place] [address] Dr. Renato Weller Creatinine [Mass/Vol] 0.71 mg/dL Normal 0.55-1.02 [facility] Comment on above: Performed By: #### C H50T #### [facility] [address] [place] [address] Dr. Renato Weller EGFR-AF DJIBOUTIAN >60 Normal >=60 [facility] Comment on above: Performed By: #### C H50T #### [facility] [address] [address] [address] Renato Weller EGFR-NON AF DJIBOUTIAN >60 Normal >=60 [facility] Comment on above: Performed By: #### C H50T #### [facility] [address] [place] [address] Dr. Renato Weller Globulin (S) [Mass/Vol] 3.1 g/dL Normal [facility] Comment on above: Performed By: #### C H50T #### [facility] [address] [address] [address] Renato Weller Glucose [Mass/Vol] 85 mg/dL Normal 74-106 [facility] Comment on above: Performed By: #### C H50T #### [facility] [address] [place] [address] Dr. Renato Weller Potassium [Moles/Vol] 4.4 mmol/L Normal 3.5-5.1 [facility] Comment on above: Performed By: #### C H50T #### [facility] [address] [place] [address] Dr. Renato Weller Protein [Mass/Vol] 6.6 g/dL Normal 6.4-8.2 [facility] Comment on above: Performed By: #### C H50T #### [facility] [address] [place] [address] Dr. Renato Weller Sodium [Moles/Vol] 140 mmol/L Normal 136-145 [facility] Comment on above: Performed By: #### C H50T #### [facility] [address] [place] [address] Dr. Renato Weller Urea nitrogen [Mass/Vol] 14.0 mg/dL Normal 7.0-18.0 [facility] Comment on above: Performed By: #### C H50T #### [facility] [address] [place] [address] Dr. Renato Weller Urea nitrogen/Creatinine [Mass ratio] 19.7 mg/mg Normal [facility] Comment on above: Performed By: #### C H50T #### [facility] [address] [place] [address] Dr. Renato Weller SED RATE Located within [facility] 2021 SED RATE 6 mm/hr Normal <=30 [facility] Comment on above: Performed By: #### C H50T #### [facility] [address] [place] [address] Dr. Renato Weller UA RANDOM W/MICROSCOPICon BACTERIA TRACE Abnormal NONE SEEN [facility] Comment on above: Performed By: #### C H50T #### [facility] [address] [place] [address] Dr. Renato Weller Bilirubin Ql (U) MODERATE Abnormal NEGATIVE [facility] Comment on above: Performed By: #### C H50T #### [facility] [address] [place] [address] Dr. Renato Weller CAST NONE SEEN Normal NONE SEEN [facility] Comment on above: Performed By: #### C H50T #### [facility] [address] [place] [address] Dr. Renato Wellre Clarity (U) CLEAR Normal CLEAR [facility] Comment on above: Performed By: #### C H50T #### [facility] [address] [place] [address] Dr. Renato Weller Color (U) LT. YELLOW Normal YELLOW [facility] Comment on above: Performed By: #### C H50T #### [facility] [address] [place] [address] Dr. Renaot Weller Crystals LM Nom (Urine sed) NONE SEEN Normal NONE SEEN [facility] Comment on above: Performed By: #### C H50T #### [facility] [address] [place] [address] Dr. Renato Weller Epithelial cells LM Ql (Urine sed) MODERATE Abnormal NONE SEEN /RARE [facility] Comment on above: Performed By: #### C H50T #### [facility] [address] [place] [address] Dr. Renato Weller Glucose Ql (U) Negative Normal NEGATIVE [facility] Comment on above: Performed By: #### C H50T #### [facility] [address] [place] [address] Dr. Renato Weller Hemoglobin Ql (U) Negative Normal NEGATIVE The [facility] Comment on above: Performed By: #### C H50T #### [facility] [address] [place] [address] Dr. Renato Weller Ketones Ql (U) Negative Normal NEGATIVE [facility] Comment on above: Performed By: #### C H50T #### [facility] [address] [place] [address] Dr. Renato Weller LEUKOCYTES SMALL Abnormal NEGATIVE [facility] Comment on above: Performed By: #### C H50T #### [facility] [address] [place] [address] Dr. Renato Weller MUCOUS NONE SEEN Normal NONE SEEN [facility] Comment on above: Performed By: #### C H50T #### [facility] [address] [place] [address] Dr. Renato Weller Nitrite Ql (U) Negative Normal NEGATIVE [facility] Comment on above: Performed By: #### C H50T #### [facility] [address] [place] [address] Dr. Renato Weller pH (U) 6.0 [pH] Normal 5-9 [facility] Comment on above: Performed By: #### C H50T #### [facility] [address] [place] [address] Dr. Renato Weller RBC NONE SEEN Abnormal 0-2 [facility] Comment on above: Performed By: #### C H50T #### [facility] [address] [place] [address] Dr. Renato Weller SPEC GRAVITY 1.010 Normal 1.005-<=1.[address] [facility] Comment on above: Performed By: #### C H50T #### [facility] [address] [place] [address] Dr. Renato Weller UA PROTEIN Negative Normal NEGATIVE/ TRACE [facility] Comment on above: Performed By: #### C H50T #### [facility] [address] [place] [address] Dr. Renato Weller Urobilinogen Qn (U) 0.2 {Paul'U}/dL Normal 0.2 - 1. 0 [facility] Comment on above: Performed By: #### C H50T #### [facility] [address] [place] [address] Dr. Renato Weller WBC 2-5 Abnormal NONE SEEN [facility] Comment on above: Performed By: #### C H50T #### [facility] [address] [address] [address] Renato Weller C-Reactive Proteinon 019 CRP [Mass/Vol] 0.6 mg/dL Normal 0.0-1.0 [facility] Comment on above: Performed By: #### C BC, CK, CMP, CRP, T4F, TSH3, ESR #### [address] Complete Blood Count Auto Di ffon 04-06-2019 Basophils (Bld) [#/Vol] 0.1 10*3/uL Normal 0.0-0.2 [facility] Comment on above: Result Comment: PERF ORMED BY: [place] [address] PATHOLOGIST [employer] ROSLYN TALLEY M.D. Performed By: #### C BC, CK, CMP, CRP, T4F, TSH3, ESR #### [address] Basophils/100 WBC (Bld) 1.0 % Normal . [facility] Comment on above: Performed By: #### C BC, CK, CMP, CRP, T4F, TSH3, ESR #### [facility] [address] [place] [address] [place] Eosinophils (Bld) [#/Vol] 0.1 10*3/uL Normal 0.0-0.45 [facility] Comment on above: Performed By: #### C BC, CK, CMP, CRP, T4F, TSH3, ESR #### [facility] [address] [place] [address] [place] Eosinophils/100 WBC (Bld) 0.9 % Normal . [facility] Comment on above: Performed By: #### C BC, CK, CMP, CRP, T4F, TSH3, ESR #### [address] Erythrocyte distribution width (RBC) [Ratio] 14.5 % Normal 11.9-15.3 [facility] Comment on above: Performed By: #### C BC, CK, CMP, CRP, T4F, TSH3, ESR #### [address] Hematocrit (Bld) [Volume fraction] 44.9 % Normal 34.0-46.4 [facility] Comment on above: Performed By: #### C BC, CK, CMP, CRP, T4F, TSH3, ESR #### [address] Hemoglobin (Bld) [Mass/Vol] 15.2 g/dL Normal 11.8-15.4 [facility] Comment on above: Performed By: #### C BC, CK, CMP, CRP, T4F, TSH3, ESR #### [address] Lymphocytes (Bld) [#/Vol] 1.1 10*3/uL Normal 1.00-4.8 [facility] Comment on above: Performed By: #### C BC, CK, CMP, CRP, T4F, TSH3, ESR #### [address] Lymphocytes/100 WBC (Bld) 14.6 % Normal . [facility] Comment on above: Performed By: #### C BC, CK, CMP, CRP, T4F, TSH3, ESR #### [address] MCH (RBC) [Entitic mass] 34.0 g/dL Normal 32.0-35.0 [facility] Comment on above: Performed By: #### C BC, CK, CMP, CRP, T4F, TSH3, ESR #### [address] [address] [place] MCH (RBC) [Entitic mass] 30.8 pg Normal 24.7-34.3 [facility] Comment on above: Performed By: #### C BC, CK, CMP, CRP, T4F, TSH3, ESR #### [address] MCV (RBC) [Entitic vol] 90.5 fL Normal 80-100 [facility] Comment on above: Performed By: #### C BC, CK, CMP, CRP, T4F, TSH3, ESR #### [address] Monocytes (Bld) [#/Vol] 0.5 10*3/uL Normal 0.0-0.8 [facility] Comment on above: Performed By: #### C BC, CK, CMP, CRP, T4F, TSH3, ESR #### [address] Monocytes/100 WBC (Bld) 7.0 % Normal . [facility] Comment on above: Performed By: #### C BC, CK, CMP, CRP, T4F, TSH3, ESR #### [address] Neutrophils (Bld) [#/Vol] 6.0 10*3/uL Normal 1.8-7.7 [facility] Comment on above: Performed By: #### C BC, CK, CMP, CRP, T4F, TSH3, ESR #### [address] Neutrophils/100 WBC (Bld) 76.5 % Normal . [facility] Comment on above: Performed By: #### C BC, CK, CMP, CRP, T4F, TSH3, ESR #### [address] Nucleated RBC/100 WBC (Bld) [Ratio] 0.2 % Normal 0-0.5 [facility] Comment on above: Performed By: #### C BC, CK, CMP, CRP, T4F, TSH3, ESR #### [facility] [address] Platelet mean volume (Bld) [Entitic vol] 8.6 fL Normal 6.3-10.7 [facility] Comment on above: Performed By: #### C BC, CK, CMP, CRP, T4F, TSH3, ESR #### [facility] [address] Platelets (Bld) [#/Vol] 218 10*3/uL Normal 150-450 [facility] Comment on above: Performed By: #### C BC, CK, CMP, CRP, T4F, TSH3, ESR #### [facility] [address] RBC (Bld) [#/Vol] 4.96 10*6/uL Normal 3.60-5.00 [facility] Comment on above: Performed By: #### C BC, CK, CMP, CRP, T4F, TSH3, ESR #### [address] WBC (Bld) [#/Vol] 7.8 10*3/uL Normal 4.5-11.0 [facility] Comment on above: Performed By: #### C BC, CK, CMP, CRP, T4F, TSH3, ESR #### [address] Comprehensive Metabolic Pane molly 04-06-2019 Albumin [Mass/Vol] 4.0 g/dL Normal 3.2-5.5 [facility] Comment on above: Performed By: #### C BC, CK, CMP, CRP, T4F, TSH3, ESR #### [address] Albumin/Globulin [Mass ratio] 1.5 {ratio} Normal [facility] Comment on above: Performed By: #### C BC, CK, CMP, CRP, T4F, TSH3, ESR #### [address] ALP [Catalytic activity/Vol] 40 U/L Normal 32-92 [facility] Comment on above: Performed By: #### C BC, CK, CMP, CRP, T4F, TSH3, ESR #### [facility] [address] [place] [address] ALT [Catalytic activity/Vol] 10 U/L Normal 10-60 [facility] Comment on above: Performed By: #### C BC, CK, CMP, CRP, T4F, TSH3, ESR #### [address] AST [Catalytic activity/Vol] 15 U/L Normal 10-42 [facility] Comment on above: Performed By: #### C BC, CK, CMP, CRP, T4F, TSH3, ESR #### [address] Bilirubin [Mass/Vol] 0.6 mg/dL Normal 0.3-1.2 [facility] Comment on above: Performed By: #### C BC, CK, CMP, CRP, T4F, TSH3, ESR #### [address] Calcium [Mass/Vol] 9.6 mg/dL Normal 8.2-10.2 [facility] Comment on above: Performed By: #### C BC, CK, CMP, CRP, T4F, TSH3, ESR #### [address] Chloride [Moles/Vol] 103 mmol/L Normal 95-114 [facility] Comment on above: Performed By: #### C BC, CK, CMP, CRP, T4F, TSH3, ESR #### [address] CO2 [Moles/Vol] 26.6 mmol/L Normal 22.0-30.0 [facility] Comment on above: Performed By: #### C BC, CK, CMP, CRP, T4F, TSH3, ESR #### [address] Creatinine [Mass/Vol] 0.79 mg/dL Normal 0.44-1.03 [facility] Comment on above: Performed By: #### C BC, CK, CMP, CRP, T4F, TSH3, ESR #### [facility] [address] Estimated GFR ( Kimberly > 60 Normal [facility] Comment on above: Result Comment: GFR estimated reference range: According to KDOQI guidelines, <60 ml/min/1.73m2 is sufficient to diagnose a patient with chronic kidney disease. Performed By: #### C BC, CK, CMP, CRP, T4F, TSH3, ESR #### [facility] [address] Estimated GFR (Non- Am > 60 Normal [facility] Comment on above: Performed By: #### C BC, CK, CMP, CRP, T4F, TSH3, ESR #### [facility] [address] Globulin (S) [Mass/Vol] 2.6 g/dL Normal [facility] Comment on above: Performed By: #### C BC, CK, CMP, CRP, T4F, TSH3, ESR #### [facility] [address] Glucose [Mass/Vol] 87 mg/dL Normal 70-100 [facility] Comment on above: Result Comment: [place] Glucose Reference Range is dependent on time and content of last meal. Glucose of more than 200 mg/dL in a nonstressed, ambulatory subject supports the diagnosis of Diabetes Mellitus. ADA recommended reference range Performed By: #### C BC, CK, CMP, CRP, T4F, TSH3, ESR #### [facility] [address] Potassium [Moles/Vol] 4.2 mmol/L Normal 3.5-5.1 [facility] Comment on above: Performed By: #### C BC, CK, CMP, CRP, T4F, TSH3, ESR #### [facility] [address] Protein [Mass/Vol] 6.6 g/dL Normal 6.1-7.9 [facility] Comment on above: Performed By: #### C BC, CK, CMP, CRP, T4F, TSH3, ESR #### [address] Sodium [Moles/Vol] 140 mmol/L Normal 136-146 [facility] Comment on above: Performed By: #### C BC, CK, CMP, CRP, T4F, TSH3, ESR #### [address] Urea nitrogen [Mass/Vol] 12 mg/dL Normal 9-23 [facility] Comment on above: Performed By: #### C BC, CK, CMP, CRP, T4F, TSH3, ESR #### [address] Creatine Kinaseon 04-06-2019 CK [Catalytic activity/Vol] 46 U/L Normal 22-269 [facility] Comment on above: Result Comment: PERF ORMED BY: [place] [address] PATHOLOGIST [employer] ROSLYN TALLEY M.D. Performed By: #### C BC, CK, CMP, CRP, T4F, TSH3, ESR #### [address] Dipstick and Microscopicon 1 Appearance (U) Turbid Critically abnormal Clear [facility] Comment on above: Order Comment: Name Collection Type:: Clean-Voided Midstream Performed By: #### A DDONUAPLUS, PT, PTT #### [address] Bacteria LM.HPF (Urine sed) [#/Area] 1+ High None Seen [facility] Comment on above: Order Comment: Name Collection Type:: Clean-Voided Midstream Performed By: #### A DDONUAPLUS, PT, PTT #### [place] [address] [place] Bilirubin,Urine Negative Normal Negative [facility] Comment on above: Order Comment: Name Collection Type:: Clean-Voided Midstream Performed By: #### A DDONUAPLUS, PT, PTT #### [facility] [address] [place] [address] [place] Color (U) Yellow Normal Yellow [facility] Comment on above: Order Comment: Name Collection Type:: Clean-Voided Midstream Performed By: #### A DDONUAPLUS, PT, PTT #### [facility] [address] [place] [address] [place] Glucose Ql (U) Normal Normal Normal [facility] Comment on above: Order Comment: Name Collection Type:: Clean-Voided Midstream Performed By: #### A DDONUAPLUS, PT, PTT #### [facility] [address] [place] [address] [place] Hyaline Casts,Urine None Seen Normal 0-1 [facility] Comment on above: Order Comment: Name Collection Type:: Clean-Voided Midstream Performed By: #### A DDONUAPLUS, PT, PTT #### [facility] [address] [place] [address] [place] Ketones Ql (U) Trace High Negative [facility] Comment on above: Order Comment: Name Collection Type:: Clean-Voided Midstream Performed By: #### A DDONUAPLUS, PT, PTT #### [place] [address] [place] Leukocyte esterase Test strip Ql (U) 3+ High Negative [facility] Comment on above: Order Comment: Name Collection Type:: Clean-Voided Midstream Performed By: #### A DDONUAPLUS, PT, PTT #### [facility] [address] [place] [address] [place] Nitrite,Urine Negative Normal Negative [facility] Comment on above: Order Comment: Name Collection Type:: Clean-Voided Midstream Performed By: #### A DDONUAPLUS, PT, PTT #### [place] [address] [place] Occult Blood,Urine Negative Normal Negative [facility] Comment on above: Order Comment: Name Collection Type:: Clean-Voided Midstream Performed By: #### A DDONUAPLUS, PT, PTT #### [address] Other Casts,Urine None Seen Normal None Seen [facility] Comment on above: Order Comment: Name Collection Type:: Clean-Voided Midstream Result Comment: PERF ORMED BY: [place] [address] PATHOLOGIST [employer] ROSLYN TALLEY M.D. Performed By: #### A DDONUAPLUS, PT, PTT #### [address] pH (U) 5.0 [pH] Normal 5.0-9.0 [facility] Comment on above: Order Comment: Name Collection Type:: Clean-Voided Midstream Performed By: #### A DDONUAPLUS, PT, PTT #### [address] Protein (U) [Mass/Vol] Negative Normal Negative [facility] Comment on above: Order Comment: Name Collection Type:: Clean-Voided Midstream Performed By: #### A DDONUAPLUS, PT, PTT #### [address] RBC LM.HPF (Urine sed) [#/Area] 5-9 High 0-4 [facility] Comment on above: Order Comment: Name Collection Type:: Clean-Voided Midstream Performed By: #### A DDONUAPLUS, PT, PTT #### [address] Specificy [place],Urine 1.024 Normal 1.001-1.030 [facility] Comment on above: Order Comment: Name Collection Type:: Clean-Voided Midstream Performed By: #### A DDONUAPLUS, PT, PTT #### [address] Squamous Epithelial Cell,Urine 5-9 High 0-2 [facility] Comment on above: Order Comment: Name Collection Type:: Clean-Voided Midstream Performed By: #### A DDONUAPLUS, PT, PTT #### [address] Urobilinogen,Urine Normal Normal Normal [facility] Comment on above: Order Comment: Name Collection Type:: Clean-Voided Midstream Performed By: #### A DDONUAPLUS, PT, PTT #### [address] WBC LM.HPF (Urine sed) [#/Area] 20-49 High 0-4 [facility] Comment on above: Order Comment: Name Collection Type:: Clean-Voided Midstream Performed By: #### A DDONUAPLUS, PT, PTT #### [address] Erythrocyte Sedimentation Ra roosevelt 04-06-2019 ESR (Bld) [Velocity] 23 mm/h Normal 0-30 [facility] Comment on above: Result Comment: PERF ORMED BY: [place] [address] PATHOLOGIST [employer] ROSLYN TALLEY M.D. Performed By: #### C BC, CK, CMP, CRP, T4F, TSH3, ESR #### [address] Free T4 (Free Thyroxine)on 1 Free T4 [Mass/Vol] 0.88 ng/dL Normal 0.61-1.12 [facility] Comment on above: Performed By: #### C BC, CK, CMP, CRP, T4F, TSH3, ESR #### [address] Partial Thromboplastin Timeo n 04-06-2019 aPTT Coag (Bld) [Time] 29.8 s Normal 23.0-35.0 [facility] Comment on above: Order Comment: List the anticoagulant: NONE Result Comment: PERF ORMED BY: [place] [address] PATHOLOGIST [employer] ROSLYN TALLEY M.D. Performed By: #### A DDONUAPLUS, PT, PTT #### [address] Prothrombin Time INRon 10-02 -2019 INR Coag (Bld) [Relative time] 10.3 s Normal 9.0-12.9 [facility] Comment on above: Order Comment: List the anticoagulant: NONE Performed By: #### A DDONUAPLUS, PT, PTT #### [facility] [address] [id number] [place] INR Coag (PPP) [Relative time] 0.9 {INR} Normal [facility] Comment on above: Order Comment: List [...] By: #### A DDONUAPLUS, PT, PTT #### [address] Thyroid Stimulating Hormoneo n 04-06-2019 TSH Qn 2.89 u[iU]/mL Normal 0.45-5.33 [facility] Comment on above: Result Comment: PERF ORMED BY: [place] [address] PATHOLOGIST [employer] ROSLYN TALLEY M.D. Performed By: #### C BC, CK, CMP, CRP, T4F, TSH3, ESR #### [address] Vital Signs Date Time Vital Sign Value Performing Clinician Facility 05-05-2023 [id number] Body height 160.02 cm Casandra Chopra Other [facility] Other 05-05-2023 09:10-0400 Body mass index (BMI) [Ratio] 31.35 kg/m2 Casandra Chopra Other [facility] Other 05-05-2023 09:10-0400 Body temperature 98.9 [degF] Casandra Chopra Other [facility] Other 05-05-2023 09:10-0400 Body weight 80.29 kg Casandra Chopra Other [facility] Other 05-05-2023 09:10-0400 Diastolic blood pressure 68 mm[Hg] Casandra Xochitllaura Other [facility] Other 05-05-2023 09:10-0400 Respiratory rate 18 /min Casandra Chopra Other [facility] Other 05-05-2023 09:10-0400 SaO2% (BldA) [Mass fraction] 98 % Casandra Leunglaura Other [facility] Other 05-05-2023 09:10-0400 Systolic blood pressure 112 mm[Hg] Casandra Xochitllaura Other [facility] Other 02-23-2023 11:40-0400 Body height 160.02 cm Eva Blades Other [facility] Other 02-23-2023 11:40-0400 Body mass index (BMI) [Ratio] 31.35 kg/m2 Eva Blades Other [facility] Other 02-23-2023 11:40-0400 Body weight 80.29 kg Eva Blades Other [facility] Other 02-23-2023 11:40-0400 Diastolic blood pressure 78 mm[Hg] Eva Blades Other [facility] Other 02-23-2023 11:40-0400 Systolic blood pressure 110 mm[Hg] Eva Blades Other [facility] Other 12-29-2022 10:00-0400 Body height 160.02 cm [employer] Other [facility] Other 12-29-2022 10:00-0400 Body mass index (BMI) [Ratio] 30.82 kg/m2 [facility] Other [facility] Other 12-29-2022 10:00-0400 Body weight 78.93 kg [employer] Other [facility] Other 12-29-2022 10:00-0400 Diastolic blood pressure 68 mm[Hg] [employer] Other [facility] Other 12-29-2022 10:00-0400 Systolic blood pressure 118 mm[Hg] [employer] Other [facility] Other 10-28-2022 10:10-0400 Body height 160.02 cm Casandra Chopra Other [facility] Other 10-28-2022 10:10-0400 Body mass index (BMI) [Ratio] 31.7 kg/m2 Casandra Chopra Other [facility] Other 10-28-2022 10:10-0400 Body temperature 97.6 [degF] Casandra Chopra Other [facility] Other 10-28-2022 10:10-0400 Body weight 81.19 kg Casandra Chopra Other [facility] Other 10-28-2022 10:10-0400 Diastolic blood pressure 68 mm[Hg] Casandra Chopra Other [facility] Other 10-28-2022 10:10-0400 Respiratory rate 18 /min Casandra Chopra Other [facility] Other 10-28-2022 10:10-0400 SaO2% (BldA) [Mass fraction] 99 % Casandra Chopra Other [facility] Other 10-28-2022 10:10-0400 Systolic blood pressure 112 mm[Hg] Casandra Chopra Other [facility] Other 02-04-2022 15:05-0400 Blood Pressure Location [facility] [place] 02-04-2022 15:05-0400 Diastolic blood pressure 60 mm[Hg] Russell NILL [facility] [place] 02-04-2022 15:05-0400 Heart rate 72 /min Russell NILL [facility] [place] 02-04-2022 15:05-0400 Respiratory rate 16 /min Russell NILL [facility] [place] 02-04-2022 15:05-0400 Systolic blood pressure 116 mm[Hg] Russell NILL [facility] [place] 10-17-2021 09:50-0400 Body height 160.02 cm Casandra Chopra Other [facility] Other 10-17-2021 09:50-0400 Body mass index (BMI) [Ratio] 31 kg/m2 Casandra Chopra Other [facility] Other 10-17-2021 09:50-0400 Body temperature 97.8 [degF] Casandra Chopra Other [facility] Other 10-17-2021 09:50-0400 Body weight 79.38 kg Casandra Chopra Other [facility] Other 10-17-2021 09:50-0400 Diastolic blood pressure 64 mm[Hg] Casandra Chopra Other [facility] Other 10-17-2021 09:50-0400 Respiratory rate 18 /min Casandra Chopra Other [facility] Other 10-17-2021 09:50-0400 SaO2% (BldA) [Mass fraction] 97 % Casandra Chopra Other [facility] Other 10-17-2021 09:50-0400 Systolic blood pressure 102 mm[Hg] Casandra Chopra Other [facility] Other 09-04-2021 09:10-0500 Body height 160.02 cm Casandra Chopra Other [facility] Other 09-04-2021 09:10-0500 Body mass index (BMI) [Ratio] 30.11 kg/m2 Casandra Chopra Other [facility] Other 09-04-2021 09:10-0500 Body temperature 97.6 [degF] Casandra Chopra Other [facility] Other 09-04-2021 09:10-0500 Body weight 77.11 kg Casandra Chopra Other [facility] Other 09-04-2021 09:10-0500 Diastolic blood pressure 68 mm[Hg] Casandra Chopra Other [facility] Other 09-04-2021 09:10-0500 Respiratory rate 18 /min Casandra Chopra Other [facility] Other 09-04-2021 09:10-0500 SaO2% (BldA) [Mass fraction] 99 % Casandra Chopra Other [facility] Other 09-04-2021 09:10-0500 Systolic blood pressure 104 mm[Hg] Casandra Chopra Other [facility] Other 04-10-2021 10:10-0400 Body height 160.02 cm Casandra Chopra Other [facility] Other 04-10-2021 10:10-0400 Body mass index (BMI) [Ratio] 31 kg/m2 Casandra Chopra Other [facility] Other 04-10-2021 10:10-0400 Body temperature 97.4 [degF] Casandra Chopra Other [facility] Other 04-10-2021 10:10-0400 Body weight 79.38 kg Casandra Chopra Other [facility] Other 04-10-2021 10:10-0400 Diastolic blood pressure 76 mm[Hg] Casandra Chopra Other [facility] Other 04-10-2021 10:10-0400 Respiratory rate 18 /min Casandra Chopra Other [facility] Other 04-10-2021 10:10-0400 SaO2% (BldA) [Mass fraction] 99 % Casandra Chopra Other [facility] Other 04-10-2021 10:10-0400 Systolic blood pressure 118 mm[Hg] Casandra Chopra Other [facility] Other Encounters Encounter Date Encounter Type Care Provider Facility Start: 05-12-2023 End: 05-12-2023 ambulatory Casandra Chopra Other [facility] Other Start: 05-12-2023 Telephone encounter Casandra Chopra [facility] [place] Start: 05-05-2023 End: 05-05-2023 ambulatory Casandra Chopra Other [facility] Other Start: 05-05-2023 Office outpatient vi sit 25 minutes Casandra Chopra [facility] [place] Start: 05-05-2023 Telephone encounter Casandra Chopra [facility] [place] Start: 02-23-2023 End: 02-23-2023 ambulatory Eva Cortes Other [facility] Other Start: 02-23-2023 Office outpatient vi sit 15 minutes Eva Laceys [facility] Start: 02-19-2023 End: 02-19-2023 ambulatory Germaine Manuel Facility:[facility] Start: 02-19-2023 End: 02-19-2023 ambulatory DO Josiah Lizzie Work Phone: [facility] Work Phone: Start: 02-19-2023 End: 02-19-2023 Patient encounter procedure DO Josiah Samuel Work Phone: [facility] [place] Work Phone: Start: 02-12-2023 End: 02-12-2023 ambulatory Casandra Chopra Other [facility] Other Start: 02-12-2023 Telephone encounter Casandra Chopra [facility] [place] Start: 02-02-2023 End: 02-02-2023 ambulatory Casandra Chopra Other [facility] Other Start: 02-02-2023 Telephone encounter Casandra Chopra [facility] [place] Start: 12-30-2022 End: 12-30-2022 ambulatory Germaine Manuel Other [facility] Other Start: 12-30-2022 Telephone encounter Germaine Mar [facility] Start: 12-29-2022 End: 12-29-2022 ambulatory Germaine Mar Other [facility] Other Start: 12-29-2022 Office outpatient ne w 45 minutes Germaine Mar [facility] Start: 12-02-2022 End: 12-03-2022 ambulatory CHRISSY VENEGAS . Facility:[facility] Start: 10-28-2022 End: 10-28-2022 ambulatory Casandra Chopra Other [facility] Other Start: 10-28-2022 Office outpatient vi sit 25 minutes [facility] Start: 10-22-2022 End: 10-23-[address] CASANDRA CHOPRA Facility:[facility] Start: 09-15-2022 End: 09-15-2022 ambulatory Casandra Chopra Other [facility] Other Start: 09-15-2022 Telephone encounter Casandra Chopra [facility] Start: 08-18-2022 End: 08-19-[address] CASANDRA CHOPRA Facility:[facility] Start: 05-12-2022 End: 05-13-[address] CASANDRA CHOPRA Facility:[facility] Start: 05-05-2022 End: 05-05-2022 ambulatory Casandra Chopra Other [facility] Other Start: 05-05-2022 Telephone encounter Casandra Chopra [facility] Start: 05-01-2022 End: 05-02-[address] CASANDRA CHOPRA Facility:[facility] Start: 04-14-2022 End: 04-15-[address] CASANDRA CHOPRA Facility:[facility] Start: 02-19-2022 End: 02-20-[address] CASANDRA CHOPRA Facility:[facility] Start: 02-04-2022 End: 02-04-2022 Patient encounter procedure Russell HARRELL General Surgery N[facility] [place] Start: 12-30-2021 End: 12-31-[address] CASANDRA CHOPRA Facility:[facility] Start: 12-16-2021 End: 12-17-[address] CASANDRA CHOPRA Facility:[facility] Start: 12-03-2021 End: 12-03-2021 ambulatory Casandra Chopra Other [facility] Other Start: 12-03-2021 Telephone encounter Casandra Chopra [facility] [place] Start: 10-22-2021 End: 10-22-2021 ambulatory Casandra Chopra Other [facility] Other Start: 10-22-2021 Telephone encounter Casandra Chopra [facility] [place] Start: 10-17-2021 End: 10-17-2021 ambulatory Casandra Chopra Other [facility] Other Start: 10-17-2021 Office outpatient vi sit 25 minutes Casandra Chopra [facility] [place] Start: 10-17-2021 Telephone encounter Casandra Chopra [facility] [place] Start: 09-04-2021 End: 09-04-2021 ambulatory Casandra Chopra Other [facility] Other Start: 09-04-2021 Office outpatient vi sit 15 minutes Casandra Chopra [facility] [place] Start: 04-24-2021 Telephone encounter Casandra Chopra [facility] [place] Start: 04-10-2021 Office outpatient vi sit 15 minutes Casandra Chopra [facility] [place] Procedures Date Procedure Procedure Detail Performing Clinician Start: 02-19-2023 MR thoracic spine wo con DO Josiah Samuel Work Phone: Start: 02-19-2023 XR pre/post mri xray DO Josiah Samuel Work Phone: Start: 06-09-2018 Colonoscopy Russell NI LL Arthroscopy of shoulder Ethan ael NILL Excision of bunion Russell N ILL Extraction of cataract Lele el NILL Hammer toe operation Russell NILL History of surgical procedure on cervical spine Russell NILL Ligation of fallopian tube Darrell rodrigez NILL Release of tendon Russell NI LL Comment on above: left elbow Screening for malign ant neoplasm of breast Casandra Chopra Other Total abdominal hysterectomy with bilateral salpingo-oophorectomy Russell HARRELL Immunizations Immunization Date Immunization Notes Care Provider Shyla hall 04-20-2021 COVID-19 Vaccine Pfizer - Documentation Purposes Only Casandra Chopra Other [facility] Other 04-10-2021 influenza, seasonal, injectable Patient Objection Casandra Chopra Other [facility] Other 03-30-2021 COVID-19 Vaccine Pfizer - Documentation Purposes Only Casandra Chopra Other [facility] Other 11-21-2016 Toradol per 15 mg Casandra Calderon in Other [facility] Other 06-02-2016 influenza, seasonal, injectable Patient Objection Casandra Chopra Other [facility] Other 06-02-2016 pneumococcal polysaccharide vaccine, 23 valent Patient Objection Casandra Chopra Other [facility] Other 03-23-2012 Kenalog 40/Xylocaine Casandra mendieta Other [facility] Other NEGATED: Highlighted row has not occurred! 1 influenza, seasonal, injectable Patient Objection Casandra Chopra Other [facility] Other NEGATED: Highlighted row has not occurred! 6 influenza, seasonal, injectable Patient Objection Casandra Chopra Other [facility] Other NEGATED: Highlighted row has not occurred! 6 pneumococcal polysaccharide vaccine, 23 valent Patient Objection Casandra Chopra Other [facility] Other Payers Date Payer Category Payer Private Health Insurance [id number] 2022 Self-pay [id number] 2019 Medicare [id number] 2.16.8 [id number] 1959 Medicare [id number] 2. [id number]. 1959 Medicare [id number] 1959 Private Health Insurance [id number] [id number]. 1959 Unknown [id number] 1952 Unknown [id number] 2.16.84 [id number] 1952 Unknown [id number] 2.16.84 0.1.358573.3.579.2.593 1952 Unknown [id number] 2.16.84 0.1.953603.3.579.2.593 1952 Unknown [id number] 2.16.84 0.1.443501.3.579.2.593 1952 Unknown [id number] 2.16.84 0.1.785060.3.579.2.593 1952 Unknown [id number] 2.16.84 0.1.874189.3.579.2.593 1952 Unknown [id number] 2.16.84 0.1.803280.3.579.2.593 1952 Unknown [id number] 2.16.84 0.1.954934.3.579.2.593 1952 Unknown [id number] 2.16.84 0.1.864036.3.579.2.593 1952 Unknown [id number] 2.16.84 0.1.497310.3.579.2.593 Unknown [id number] 2.16.8 [id number] Social History Date Type Detail Facility Unknown if ever smoked [facility] Other Sex Assigned At [facility] Other Start: 02-04-2022 Tobacco smoking status Heavy t obacco smoker (finding) [facility] Tobacco smoking status Never Gener al [facility] Start: 1950 Sex Assigned At Female F [facility] Functional Status Date Assessment Result Facility 02-04-2022 Functional Status N/A General Gray r[facility] Clinical Notes 08-11-2012 to 05-05-2023 Note Date & Type Note Facility 05-05-2023 Evaluation note Encounter Date Diagnosis Assessment Notes Apr, Hematuria (ICD-10 - R31.9) [facility] Other 10-31-2023 Evaluation note* Encounter Date Diagnosis [...] with above medications as directed. Apr, Other detention (current) drug therapy (ICD-10 - Z79.899) Apr, [...] him know. She has not been mulching. [facility] Other 08-21-2023 Evaluation note* Encounter Date Diagnosis Assessment Notes Treatment Notes Treatment Clinical Notes Feb, Compression fracture of T8 vertebra with routine healing, subsequent encounter (ICD-10 - S22.060D) [facility] Other 06-26-2023 Evaluation note* Encounter Date Diagnosis [...] (ICD-10 - R26.81) Dec, Other OARRS reviewed [facility] Other 04-25-2023 Evaluation note* Encounter Date Diagnosis [...] use above medications as needed. Oct, Other detention (current) drug therapy (ICD-10 - Z79.899) Oct, Polyarthralgia (ICD-10 - M25.50) She does continue to follow with Dr. Bell and his COLORECTAL SURGEON as scheduled. Oct, COPD (chronic obstructive pulmonary [...] breaths out before she lifts anything heavy. [facility] Other 03-13-2023 Evaluation note* Encounter Date Diagnosis Assessment Notes Treatment Notes Treatment Clinical Notes Sep, Hyperlipidemia (ICD-10 - E78.5) [facility] Other 10-31-2022 Evaluation note* Encounter Date Diagnosis Assessment Notes Treatment Notes Treatment Clinical Notes Apr, Hematuria (ICD-10 - R31.9) [facility] Other 08-04-2022 NoteChief Complaint consultation for ventral hernia HPI Staff 71 year old female presents on consultation from Dr. Chopra for ventral hernia. Reports she moved [employer] two months ago. Noted epigastric lump several [...] tab(s), Oral, Daily potassium (more content not included)...[facility]:Result Comment: Electronically Signed By: SHARRI BECKER, Russell Valverde\Date and Time Signed: 02/06/22 10:42 [id number] Evaluation note* Encounter Date Diagnosis Assessment Notes [...] with above medication as needed. Oct, Other detention (current) drug therapy (ICD-10 - Z79.899) Oct, [...] will let me know if it worsens. 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 When she was seen by Dr. Bell's COLORECTAL SURGEON her BP was 80/60 so they wanted [...] stress is going to go down soon. [facility] Other 10-06-2021 Evaluation note* Encounter Date Diagnosis [...] with above medication as needed. 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 She will be getting her second COVID-19 vaccine on 04-20-21. [facility] Other 02-06-2013 History general Narrative - Reported* Type Description Date Medical History left shoulder & elbow problems Medical History 08/11/12 Cerv[place] [facility] 10/26/14 refused colonoscopy Medical History [...] natural 05/29/19 76 Hospitalization History natural 7 [facility] Other 02-06-2013 History general Narrative - Reported* Type Description Date Medical History left shoulder & elbow problems Medical History 08/11/12 Cervical [place] [facility] History 10/26/14 refused colonoscopy Medical History [...] natural 05/29/19 76 Hospitalization History natural 7 [facility] Other 02-06-2013 History general Narrative - Reported* Type Description Date Medical History left shoulder & elbow problems Medical History 08/11/12 Cervical [place] [facility] [place] History 10/26/14 refused colonoscopy Medical History [...] History cataract surgery both eyes Pars boone 2018 Surgical History Colonoscopy, Dr. Adama varma, needs repeat in 202406-09-2018 Surgical History back surgery Hospitalization History above Hospitalization History natural 05/29/19 74 Hospitalization History natural 7 [facility] Other [id number] History general Narrative - Reported* Type Description Date Medical History left shoulder & elbow problems Medical History 08/11/12 Cervical spine x[place] [facility] History 10/26/14 refused colonoscopy Medical History [...] History cataract surgery both eyes Pars boone 2018 Surgical History Colonoscopy, Dr. Adama varma, needs repeat in 202406-09-2018 Surgical History back surgery Hospitalization History see above surg. hx. Hospitalization History natural 05/29/19 74 Hospitalization History natural 7 [facility] Other evaluation + Plan note No data available for this section General Surgery [place] Evaluation noteNo InformationNort [employer] Other Evaluation noteNo assessment information available [facility] Work Phone: Hospital Discharge instructions No data available for this section General Surgery [place] Progress note No data available for this section General Surgery [place] Summary Purpose Family History No Family History [...] Ear pain, left (H92. 02) Referral Organization [facility] Family Pepe Chen Referring Provider First Name Casandra Referring Provider Last Name Nav Referring Provider Specialty Family Prac amanda Referred Organization [facility] Referred Provider VaibhavjesBeth schuster Referred Address ,[place], [place],[address] Referred Provider Specialty Ear, Nose an d Throat Referral Priority Routine General Notes Eva Weaver 05/05/2023 10:59:36 AM > referral faxed thru [facility] with visit note and insurance card. pt understands she will be contacted to schedule this appt. Additional Source Comments INFORMATION SOURCE (unrecogn ized section and content) DATE CREATED AUTHOR 04/07/2019 [facility] DATE CREATED AUTHOR AUTHOR'S ORGANIZ ATION 03/01/2022 [facility] DATE CREATED AUTHOR AUTHOR'S ORGANIZ ATION 12/12/2022 [facility] DATE CREATED AUTHOR AUTHOR'S ORGANIZ ATION 02/25/2023 [facility] REASON FOR VISIT (unrecogniz ed section and [...] Inactive Member Role Status Dates Josiah Samuel , Primary Care Provider Active PITO Musa Attending [...] THE PRIMARY CLINICAL RECORDS. [facility] [employer] [facility]. provides no warranty or guarantee of the accuracy or completeness of information in this document.
[2023-12-04 07:48] LABS: Basophils Absolute Auto 0.1 10^3/uL (0.0-0.1); Basophils Percent Auto 1.7 % (0.2-2.0); Eosinophils Absolute Auto 0.1 10^3/uL (0.0-0.7); Hematocrit 37.8 % (36.0-48.0); Immature Granulocytes Abs Auto 0.01 10^3/uL (0.00-0.03); Immature Granulocytes Pct Auto 0.2 % (0.0-0.5); Lymphocytes Absolute Auto 1.1 10^3/uL (1.2-3.8); Lymphocytes Percent Auto 18.2 % (20.5-60.0); Mean Corpuscular HGB Conc 31.7 g/dL (29.9-35.2); Mean Corpuscular Hemoglobin 30.5 pg (26.7-34.0); Mean Corpuscular Volume 95.9 fL (81.0-99.0); Mean Platelet Volume 9.2 fL (9.5-13.5); Monocytes Absolute Auto 0.6 10^3/uL (0.3-0.8); Monocytes Percent Auto 10.3 % (1.7-12.0); Neutrophils Absolute Auto 4.1 10^3/uL (1.4-6.5); Neutrophils Percent Auto 67.6 % (43.0-75.0); Platelet Count 193 10^3/uL (150-450); Red Blood Count 3.94 10^6/uL (4.20-5.40); Red Cell Distribution Width 13.3 % (11.0-15.0)
== END 2023-12-04 07:36 | disposition home or self-care (01) ==
LOC: LAB 07:35
PROVIDERS: PCP Family Medicine; Visit Provider Family Medicine
DX: Z79.899 Other long term (current) drug therapy (principal)
CPT/HCPCS: 36415; 85025

== ENCOUNTER 2023-12-04 07:36 | Outpatient (OUT) | payer MEDICARE, SELFPAY ==
--- OUTSIDE RECORDS SUMMARY | 2023-12-04 07:39 | XMS_ITS | CCD ---
Author Organization [facility] Care Team Providers Care Batch Operator Name Role Phone Casandra Chopra Unavailable Casandra [...] Unavailable DO Josiah Samuel Primary Care Provider [phone] PITO Manuel Attending Provider Eva Cortes Unavailable Germaine Manuel Attending Unavailable Germaine Manuel Admitting Unavailable Josiah Samuel Primary Care Unavailable Allergies Allergy Classification Reported Allergen(s) Allergy Type Date of Onset Reaction(s) Facility (20 sources) buPROPion; Translations: [Bupropion] Drug Allergy Anxiety (finding) [place] Other (19 sources) traMADol Drug Allergy constipation [place] Other (1 source) Acetaminophen / HYDROcodone Drug Allergy [facility] Medications Current Medications Medication Drug Class(es) Dates Sig (Normalized) Sig (Original) 8 hr acetaminophen 650 mg extended release oral tablet (16 sources) take 2 tablets by mouth every eight hours as needed Tylenol 8 Hour Arthritis Pain 650 MG 2 tablets as needed Orally every 8 hrs Active [id number] 200 actuat albuterol 0.09 mg/actuat metered dose [...] spray(s) nasal route twic e daily Ipratropium [place] 0.03 % 2 sprays in each nostril [...] 2 Chronic Other aftercare (5 sources) Other usp (current) drug therapy; Translations: [Other termite treater (current) drug therapy Z79.899] Onset: 1 Resolved: [...] mri xrayon 02-19 XR pre/post mri xray [facility] Main [address] [address] MRI Report Signed Patient: Genna Herrera MR#: [id number] 52 : 1950 Acct:[id number] Age/Sex: 72 / F ADM Date: 02/19/23 Loc: MR Room: Type: [facility] Attending Dr: Germaine SHELDON Copies to: PITO Toure Ordering Provider: PITO Toure Date of Service: 02/19/23 MR/MR thoracic spine wo con: S22.060a ([id number]) XR/XR pre/post mri xray: S22.060a MR thoracic [...] David Corley M.D.02/19/2023 8:19 PM Dictation Location: [place] [address] Transcribed By: [facility] 02/19/232018 Dictated By: David Corley II, MD 02/19/232008 Signed By: 02/19/232018 [facility] CT LUNG CANCER SCREENINGon 0 12-03-2022 CT [...] MARII TURCIOS Date: 2022-12-03 08:20 Normal [facility] CBC AUTO DIFFon 10-22-2022 BASO # 0.1 103/ul Normal 0.0-0.1 [facility] Comment on above: Performed By: #### C BC #### [facility] [address] [place] [address] Dr. Renato Weller Basophils/100 WBC (Bld) 1.5 % Normal 0.2-2.0 [facility] Comment on above: Performed By: #### C BC #### [facility] [address] [place] [address] Dr. Renato Weller EO # 0.1 103/ul Normal 0.0-0.7 [facility] Comment on above: Performed By: #### C BC #### [facility] [address] [place] [address] Dr. Renato Weller Eosinophils/100 WBC (Bld) 1.4 % Normal 0.9-7.0 [facility] Comment on above: Performed By: #### C BC #### [facility] [address] [place] [address] Dr. Renato Weller Erythrocyte distribution width (RBC) [Ratio] 13.4 % Normal 11.0-15.0 [facility] Comment on above: Performed By: #### C BC #### [facility] [address] [place] [address] Dr. Renato Weller Hematocrit (Bld) [Volume fraction] 40.8 % Normal 36.0-48.0 [facility] Comment on above: Performed By: #### C BC #### [facility] [address] [place] [address] Dr. Renato Weller Hemoglobin (Bld) [Mass/Vol] 12.9 g/dL Normal 12.0-16.0 [facility] Comment on above: Performed By: #### C BC #### [facility] [address] [place] [address] Dr. Renato Weller IG # 0.01 10e3/ul Normal 0.00-0.03 [facility] Comment on above: Performed By: #### C BC #### [facility] [address] [place] [address] Dr. Renato Weller IG % 0.2 % Normal 0.0-0.5 [facility] Comment on above: Performed By: #### C BC #### [facility] [address] [place] [address] Dr. Renato Weller LYMPH # 1.0 103/ul Critically low 1.2-3.8 [facility] Comment on above: Performed By: #### C BC #### [facility] [address] [place] [address] Dr. Renato Weller Lymphocytes/100 WBC (Bld) 16.2 % Critically low 20.5-60.0 [facility] Comment on above: Performed By: #### C BC #### [facility] [address] [place] [address] Dr. Renato Weller MANUAL DIFF REQ NO Normal [facility] Comment on above: Performed By: #### C BC #### [facility] [address] [place] [address] Dr. Renato Weller MCH (RBC) [Entitic mass] 30.2 pg Normal 26.7-34.0 [facility] Comment on above: Performed By: #### C BC #### [facility] [address] [place] [address] Dr. Renato Weller MCHC (RBC) [Mass/Vol] 31.6 g/dL Normal 29.9-35.2 [facility] Comment on above: Performed By: #### C BC #### [facility] [address] [place] [address] Dr. Renato Weller MCV (RBC) [Entitic vol] 95.6 fL Normal 81.0-99.0 [facility] Comment on above: Performed By: #### C BC #### [facility] [address] [place] [address] Dr. Renato Weller MONO # 0.5 103/ul Normal 0.3-0.8 [facility] Comment on above: Performed By: #### C BC #### [facility] [address] [place] [address] Dr. Renato Weller Monocytes/100 WBC (Bld) 8.2 % Normal 1.7-12.0 [facility] Comment on above: Performed By: #### C BC #### [facility] [address] [place] [address] Dr. Renato Weller NEUT # 4.3 103/ul Normal 1.4-6.5 [facility] Comment on above: Performed By: #### C BC #### [facility] [address] [place] [address] Dr. Renato Weller Neutrophils/100 WBC (Bld) 72.5 % Normal 43.0-75.0 [facility] Comment on above: Performed By: #### C BC #### [facility] [address] [place] [address] Dr. Renato Weller Platelet mean volume (Bld) [Entitic vol] 9.4 fL Critically low 9.5-13.5 [facility] Comment on above: Performed By: #### C BC #### [facility] [address] [place] [address] Dr. Renato Weller PLT 206 103/ul Normal 150-450 [facility] Comment on above: Performed By: #### C BC #### [facility] [address] [place] [address] Dr. Renato Weller RBC 4.27 106/ul Normal 4.20-5.40 [facility] Comment on above: Performed By: #### C BC #### [facility] [address] [place] [address] Dr. Renato Weller WBC 5.9 103/ul Normal 4.0-11.0 [facility] Comment on above: Performed By: #### C BC #### [facility] [address] [place], [place] [address] Dr. Renato Weller LIPID PROFILEon 10-22-2022 CHOL-HDL RATIO NORM SEE BELOW Normal [facility] Comment on above: Result Comment: 3.3 - 4.4 LOW RISK 4.4 - 7.1 AVERAGE RISK 7.1 - 11.0 MODERATE RISK >11.0 HIGH RISK Performed By: #### L IPID, CMP #### [facility] [address] [place] [address] [address] Renato Weller Cholesterol [Mass/Vol] 162 mg/dL Normal <=200 [facility] Comment on above: Performed By: #### L IPID, CMP #### [facility] [address] [place] [address] [address] Renato Weller Cholesterol in HDL [Mass/Vol] 69 mg/dL Critically high 40-60 [facility] Comment on above: Performed By: #### L IPID, CMP #### [facility] [address] [place] [address] [address] Renato Weller Cholesterol in LDL [Mass/Vol] 81.8 mg/dL Normal [facility] Comment on above: Performed By: #### L IPID, CMP #### [facility] [address] [place] [id number] [address] Renato Weller Cholesterol.total/C holesterol in HDL [Mass ratio] 2.3 {ratio} Normal [facility] Comment on above: Performed By: #### L IPID, CMP #### [facility] [address] [place] [address] [address] Renato Weller HDL NORMAL > or = 60 mg/dl - LO W CARDIOVASCULAR RISK <40 mg/dl - HIGH CARDIOVASCULAR RISK Normal [facility] Comment on above: Performed By: #### L IPID, CMP #### [facility] [address] [place] [id number] [address] Renato Weller LDL CALC NORMAL SEE BELOW Normal [facility] Comment on above: Result Comment: <100 mg/dl OPTIMAL 100 - 129 mg/dl NEAR OR ABOVE OPTIMAL 130 - 159 mg/dl BORDERLINE HIGH 160 - 189 mg/dl HIGH >190 mg/dl VERY HIGH Performed By: #### L IPID, CMP #### [facility] [address] [place] [address] Dr. Renato Weller Triglyceride [Mass/Vol] 56 mg/dL Normal <=150 [facility] Comment on above: Performed By: #### L IPID, CMP #### [facility] [address] [place] [address] Dr. Renato Weller VLDL CALC 11.2 mg/dL Normal [facility] Comment on above: Performed By: #### L IPID, CMP #### [facility] [address] [place] [address] Dr. Renato Weller PROF 14(COMP METB)on 023 Albumin [Mass/Vol] 3.7 g/dL Normal 3.4-5.[address] [facility] Comment on above: Performed By: #### L IPID, CMP #### [facility] [address] [place] [address] Dr. Renato Weller Albumin/Globulin [Mass ratio] 1.1 {ratio} Normal [facility] Comment on above: Performed By: #### L IPID, CMP #### [facility] [address] [place] [address] Dr. Renato Weller ALP [Catalytic activity/Vol] 36 U/L Critically low 46-116 [facility] Comment on above: Performed By: #### L IPID, CMP #### [facility] [address] [place] [address] Dr. Renato Weller ALT [Catalytic activity/Vol] 24 U/L Normal 14-59 [facility] Comment on above: Performed By: #### L IPID, CMP #### [facility] [address] [place] [address] Dr. Renato Weller Anion gap [Moles/Vol] 12.2 mmol/L Normal [facility] Comment on above: Performed By: #### L IPID, CMP #### [facility] [address] [place] [address] Dr. Renato Weller AST [Catalytic activity/Vol] 18 U/L Normal 15-37 [facility] Comment on above: Performed By: #### L IPID, CMP #### [facility] [address] [place] [address] Dr. Renato Weller Bilirubin [Mass/Vol] 0.3 mg/dL Normal 0.2-1.0 [facility] Comment on above: Performed By: #### L IPID, CMP #### [facility] [address] [place] [address] Dr. Renato Weller Calcium [Mass/Vol] 9.0 mg/dL Normal 8.5-10.[address] [facility] Comment on above: Performed By: #### L IPID, CMP #### [facility] [address] [place] [address] Dr. Renato Weller Chloride [Moles/Vol] 102 mmol/L Normal 98-107 [facility] Comment on above: Performed By: #### L IPID, CMP #### [facility] [address] [place] [address] Dr. Renato Weller CO2 [Moles/Vol] 29.1 mmol/L Normal 21.0-32.[address] [facility] Comment on above: Performed By: #### L IPID, CMP #### [facility] [address] [place] [address] Dr. Renato Weller Creatinine [Mass/Vol] 0.83 mg/dL Normal 0.55-1.02 [facility] Comment on above: Performed By: #### L IPID, CMP #### [facility] [address] [place] [address] Dr. Renato Weller EGFR-AF BURUNDIAN >60 Normal >=[address] [facility] Comment on above: Performed By: #### L IPID, CMP #### [facility] [address] [place] [address] Dr. Renato Weller EGFR-NON AF BURUNDIAN >60 Normal >=60 [facility] Comment on above: Performed By: #### L IPID, CMP #### [facility] [address] [place] [address] Dr. Renato Weller Globulin (S) [Mass/Vol] 3.5 g/dL Normal [facility] Comment on above: Performed By: #### L IPID, CMP #### [facility] [address] [place] [address] Dr. Renato Weller Glucose [Mass/Vol] 85 mg/dL Normal 74-[address] [facility] Comment on above: Performed By: #### L IPID, CMP #### [facility] [address] [place] [address] Dr. Renato Weller Potassium [Moles/Vol] 4.3 mmol/L Normal 3.5-5.1 [facility] Comment on above: Performed By: #### L IPID, CMP #### [facility] [address] [place] [address] Dr. Renato Weller Protein [Mass/Vol] 7.2 g/dL Normal 6.4-8.2 [facility] Comment on above: Performed By: #### L IPID, CMP #### [facility] [address] [place] [address] Dr. Renato Weller Sodium [Moles/Vol] 139 mmol/L Normal 136-145 [facility] Comment on above: Performed By: #### L IPID, CMP #### [facility] [address] [place] [address] Dr. Renato Weller Urea nitrogen [Mass/Vol] 14.0 mg/dL Normal 7.0-18.0 [facility] Comment on above: Performed By: #### L IPID, CMP #### [facility] [address] [place] [address] Dr. Renato Weller Urea nitrogen/Creatinine [Mass ratio] 16.9 mg/mg Normal [facility] Comment on above: Performed By: #### L IPID, CMP #### [facility] [address] [place] [address] Dr. Renato Weller C3 and C4 COMPLEMENTon 08-19 Complement C3, Serum 110 mg/dL Normal 82-167 [facility] Comment on above: Performed By: #### U AMIC #### [facility] [address] [place] [address] Dr. Renato Weller Complement C4, Serum 20 mg/dL Normal 12-38 [facility] Comment on above: Performed By: #### U AMIC #### [facility] [address] [place] [address] [address] Renato Weller COMPLEMENT TOTAL (CH50)on Complement, Total (CH50) >60 Normal >41 [facility] Comment on above: Result Comment: Age [...] values. Performed By: #### C H50T #### [facility] [address] [place] [address] [address] Renato Weller CBC AUTO DIFFon 08-18-2022 BASO # 0.1 103/ul Normal 0.0-0.1 [facility] Comment on above: Performed By: #### C H50T #### [facility] [address] [place] [address] [address] Renato Weller Basophils/100 WBC (Bld) 1.8 % Normal 0.2-2.0 [facility] Comment on above: Performed By: #### C H50T #### [facility] [address] [place] [address] [address] Renato Weller EO # 0.1 103/ul Normal 0.0-0.7 [facility] Comment on above: Performed By: #### C H50T #### [facility] [address] [place] [address] [address] Renato Weller Eosinophils/100 WBC (Bld) 1.8 % Normal 0.9-7.0 [facility] Comment on above: Performed By: #### C H50T #### [facility] [address] [place] [address] [address] Renato Weller Erythrocyte distribution width (RBC) [Ratio] 13.2 % Normal 11.0-15.0 [facility] Comment on above: Performed By: #### C H50T #### [facility] [address] [place] [address] Dr. Renato Weller Hematocrit (Bld) [Volume fraction] 39.9 % Normal 36.0-48.0 [facility] Comment on above: Performed By: #### C H50T #### [facility] [address] [place] [address] Dr. Renato Weller Hemoglobin (Bld) [Mass/Vol] 13.2 g/dL Normal 12.0-16.0 [facility] Comment on above: Performed By: #### C H50T #### [facility] [address] [place] [address] Dr. Renato Weller IG # 0.02 10e3/ul Normal 0.00-0.03 [facility] Comment on above: Performed By: #### C H50T #### [facility] [address] [place] [address] Dr. Renato Weller IG % 0.4 % Normal 0.0-0.5 [facility] Comment on above: Performed By: #### C H50T #### [facility] [address] [place] [address] Dr. Renato Weller LYMPH # 1.1 103/ul Critically low 1.2-3.8 [facility] Comment on above: Performed By: #### C H50T #### [facility] [address] [place] [address] Dr. Renato Weller Lymphocytes/100 WBC (Bld) 18.4 % Critically low 20.5-60.0 [facility] Comment on above: Performed By: #### C H50T #### [facility] [address] [place] [address] Dr. Renato Weller MANUAL DIFF REQ NO Normal [facility] Comment on above: Performed By: #### C H50T #### [facility] [address] [place] [address] Dr. Renato Weller MCH (RBC) [Entitic mass] 31.0 pg Normal 26.7-34.0 [facility] Comment on above: Performed By: #### C H50T #### [facility] [address] [place] [address] Dr. Renato Weller MCHC (RBC) [Mass/Vol] 33.1 g/dL Normal 29.9-35.2 [facility] Comment on above: Performed By: #### C H50T #### [facility] [address] [place] [address] Dr. Renato Weller MCV (RBC) [Entitic vol] 93.7 fL Normal 81.0-99.0 [facility] Comment on above: Performed By: #### C H50T #### [facility] [address] [place] [address] Dr. Renato Weller MONO # 0.5 103/ul Normal 0.3-0.8 [facility] Comment on above: Performed By: #### C H50T #### [facility] [address] [place] [address] Dr. Renato Weller Monocytes/100 WBC (Bld) 8.6 % Normal 1.7-12.0 [facility] Comment on above: Performed By: #### C H50T #### [facility] [address] [place] [address] Dr. Renato Weller NEUT # 3.9 103/ul Normal 1.4-6.5 [facility] Comment on above: Performed By: #### C H50T #### [facility] [address] [place] [address] Dr. Renato Weller Neutrophils/100 WBC (Bld) 69.0 % Normal 43.0-75.0 [facility] Comment on above: Performed By: #### C H50T #### [facility] [address] [place] [address] Dr. Renato Weller Platelet mean volume (Bld) [Entitic vol] 9.4 fL Critically low 9.5-13.5 [facility] Comment on above: Performed By: #### C H50T #### [facility] [address] [place] [address] Dr. Renato Weller PLT 191 103/ul Normal 150-450 [facility] Comment on above: Performed By: #### C H50T #### [facility] [address] [place] [address] Dr. Renato Weller RBC 4.26 106/ul Normal 4.20-5.40 [facility] Comment on above: Performed By: #### C H50T #### [facility] [address] [place] [address] Dr. Renato Weller WBC 5.7 103/ul Normal 4.0-11.0 [facility] Comment on above: Performed By: #### C H50T #### [facility] [address] [place] [address] Dr. Renato Weller MAGNESIUMon 08-18-2022 Magnesium [Mass/Vol] 2.1 mg/dL Normal 1.8-2.4 [facility] Comment on above: Performed By: #### L IPID, CMP #### [facility] [address] [place] [address] Dr. Renato Weller PHOSPHORUSon 08-18-2022 Phosphate [Mass/Vol] 3.5 mg/dL Normal 2.6-4.7 [facility] Comment on above: Performed By: #### L IPID, CMP #### [facility] [address] [place] [address] Dr. Renato Weller PROF 14(COMP METB)on 023 Albumin [Mass/Vol] 3.7 g/dL Normal 3.4-5.[address] [facility] Comment on above: Performed By: #### L IPID, CMP #### [facility] [address] [place] [address] Dr. Renato Weller Albumin/Globulin [Mass ratio] 1.2 {ratio} Normal [facility] Comment on above: Performed By: #### L IPID, CMP #### [facility] [address] [place] [address] Dr. Renato Weller ALP [Catalytic activity/Vol] 37 U/L Critically low 46-116 [facility] Comment on above: Performed By: #### L IPID, CMP #### [facility] [address] [place] [address] [address] Renato Weller ALT [Catalytic activity/Vol] 18 U/L Normal 14-59 [facility] Comment on above: Performed By: #### L IPID, CMP #### [facility] [address] [place] [address] [address] Renato Weller Anion gap [Moles/Vol] 13.5 mmol/L Normal [facility] Comment on above: Performed By: #### L IPID, CMP #### [facility] [address] [place] [address] [address] Renato Weller AST [Catalytic activity/Vol] 19 U/L Normal 15-37 [facility] Comment on above: Performed By: #### L IPID, CMP #### [facility] [address] [place] [address] [address] Renato Weller Bilirubin [Mass/Vol] 0.4 mg/dL Normal 0.2-1.0 [facility] Comment on above: Performed By: #### L IPID, CMP #### [facility] [address] [place] [address] [address] Renato Weller Calcium [Mass/Vol] 8.7 mg/dL Normal 8.5-10.[address] [facility] Comment on above: Performed By: #### L IPID, CMP #### [facility] [address] [place] [address] [address] Renato Weller Chloride [Moles/Vol] 104 mmol/L Normal 98-107 [facility] Comment on above: Performed By: #### L IPID, CMP #### [facility] [address] [place] [address] [address] Renato Weller CO2 [Moles/Vol] 27.8 mmol/L Normal 21.0-32.0 [facility] Comment on above: Performed By: #### L IPID, CMP #### [facility] [address] [place] [address] [address] Renato Weller Creatinine [Mass/Vol] 0.67 mg/dL Normal 0.55-1.02 [facility] Comment on above: Performed By: #### L IPID, CMP #### [facility] [address] [place] [address] [address] Renato Weller EGFR-AF BURUNDIAN >60 Normal >=60 [facility] Comment on above: Performed By: #### L IPID, CMP #### [facility] [address] [place] [address] [address] Renato Weller EGFR-NON AF BURUNDIAN >60 Normal >=60 [facility] Comment on above: Performed By: #### L IPID, CMP #### [facility] [address] [place] [address] [address] Renato Weller Globulin (S) [Mass/Vol] 3.0 g/dL Normal [facility] Comment on above: Performed By: #### L IPID, CMP #### [facility] [address] [place] [address] [address] Renato Weller Glucose [Mass/Vol] 87 mg/dL Normal 74-[address] [facility] Comment on above: Performed By: #### L IPID, CMP #### [facility] [address] [place] [address] [address] Renato Weller Potassium [Moles/Vol] 4.3 mmol/L Normal 3.5-5.1 [facility] Comment on above: Performed By: #### L IPID, CMP #### [facility] [address] [place] [address] [address] Renato Weller Protein [Mass/Vol] 6.7 g/dL Normal 6.4-8.2 [facility] Comment on above: Performed By: #### L IPID, CMP #### [facility] [address] [place] [address] [address] Renato Weller Sodium [Moles/Vol] 141 mmol/L Normal 136-145 [facility] Comment on above: Performed By: #### L IPID, CMP #### [facility] [address] [place] [address] [address] Renato Weller Urea nitrogen [Mass/Vol] 11.0 mg/dL Normal 7.0-18.0 [facility] Comment on above: Performed By: #### L IPID, CMP #### [facility] [address] [place] [address] Dr. Renato Weller Urea nitrogen/Creatinine [Mass ratio] 16.4 mg/mg Normal [facility] Comment on above: Performed By: #### L IPID, CMP #### [facility] [address] [place] [address] Dr. Renato Weller SED RATE WESTERGRENon 2022 SED RATE 43 mm/hr Critically high <=30 [facility] Comment on above: Performed By: #### S EDR #### [facility] [address] [place] [address] Dr. Renato Weller UA RANDOM W/MICROSCOPICon BACTERIA NONE SEEN Normal NONE SEEN [facility] Comment on above: Performed By: #### U AMIC #### [facility] [address] [place] [address] Dr. Renato Weller Bilirubin Ql (U) LARGE Abnormal NEGATIVE [facility] Comment on above: Performed By: #### U AMIC #### [facility] [address] [place] [address] Dr. Renato Weller CAST NONE SEEN Normal NONE SEEN [facility] Comment on above: Performed By: #### U AMIC #### [facility] [address] [place] [address] Dr. Renato Weller Clarity (U) CLEAR Normal CLEAR [facility] Comment on above: Performed By: #### U AMIC #### [facility] [address] [place] [address] Dr. Renato Weller Color (U) LT. YELLOW Normal YELLOW [facility] Comment on above: Performed By: #### U AMIC #### [facility] [address] [place] [address] Dr. Renato Weller Crystals LM Nom (Urine sed) NONE SEEN Normal NONE SEEN [facility] Comment on above: Performed By: #### U AMIC #### [facility] [address] [place] [address] Dr. Renato Weller Epithelial cells LM Ql (Urine sed) NONE SEEN Normal NONE SEEN /RARE [facility] Comment on above: Performed By: #### U AMIC #### [facility] [address] [address] [address] Renato Weller Glucose Ql (U) Negative Normal NEGATIVE [facility] Comment on above: Performed By: #### U AMIC #### [facility] [address] [address] [address] Renato Weller Hemoglobin Ql (U) Negative Normal NEGATIVE [facility] Comment on above: Performed By: #### U AMIC #### [facility] [address] [address] [address] Renato Weller Ketones Ql (U) Negative Normal NEGATIVE [facility] Comment on above: Performed By: #### U AMIC #### [facility] [address] [place] [address] Dr. Renato Weller LEUKOCYTES SMALL Abnormal NEGATIVE [facility] Comment on above: Performed By: #### U AMIC #### [facility] [address] [address] [address] Renato Weller MUCOUS NONE SEEN Normal NONE SEEN [facility] Comment on above: Performed By: #### U AMIC #### [facility] [address] [address] [address] Renato Weller Nitrite Ql (U) Negative Normal NEGATIVE [facility] Comment on above: Performed By: #### U AMIC #### [facility] [address] [address] [address] Renato Weller pH (U) 7.0 [pH] Normal 5-9 [facility] Comment on above: Performed By: #### U AMIC #### [facility] [address] [address] [address] Renato Weller RBC 0-2 Normal 0-2 [facility] Comment on above: Performed By: #### U AMIC #### [facility] [address] [place] [address] Dr. Renato Weller SPEC GRAVITY 1.010 Normal 1.005-<=1.025 [facility] Comment on above: Performed By: #### U AMIC #### [facility] [address] [address] [address] Renato Weller UA PROTEIN Negative Normal NEGATIVE/ TRACE [facility] Comment on above: Performed By: #### U AMIC #### [facility] [address] [address] [address] Renato Weller Urobilinogen Qn (U) 0.2 {Paul'U}/dL Normal 0.2 - 1. 0 [facility] Comment on above: Performed By: #### U AMIC #### [facility] [address] [address] [address] Renato Weller WBC NONE SEEN Normal NONE SEEN [facility] Comment on above: Performed By: #### U AMIC #### [facility] [address] [place] [address] Dr. Renato Weller CULTURE URINEon 05-12-2022 CULTURE URINE Culture Observations : LIGHT GROWTH OF MIXED GENITAL ROMEL. NO POTENTIAL PATHOGENS SEEN. Normal [facility] Comment on above: Performed By: #### U AMIC #### [facility] [address] [place] [address] Dr. Renato Weller UA RANDOM W/MICROSCOPICon BACTERIA TRACE Abnormal NONE SEEN [facility] Comment on above: Performed By: #### C H50T #### [facility] [address] [place] [address] Dr. Renato Weller Bilirubin Ql (U) LARGE Abnormal NEGATIVE [facility] Comment on above: Performed By: #### C H50T #### [facility] [address] [place] [address] Dr. Renato Weller CAST NONE SEEN Normal NONE SEEN [facility] Comment on above: Performed By: #### C H50T #### [facility] [address] [place] [address] Dr. Renato Weller Clarity (U) CLEAR Normal CLEAR [facility] Comment on above: Performed By: #### C H50T #### [facility] [address] [place] [address] Dr. Renato Weller Color (U) LT. YELLOW Normal YELLOW [facility] Comment on above: Performed By: #### C H50T #### [facility] [address] [place] [address] Dr. Renato Weller Crystals LM Nom (Urine sed) NONE SEEN Normal NONE SEEN [facility] Comment on above: Performed By: #### C H50T #### [facility] [address] [place] [address] Dr. Renato Weller Epithelial cells LM Ql (Urine sed) MODERATE Abnormal NONE SEEN /RARE [facility] Comment on above: Performed By: #### C H50T #### [facility] [address] [place] [address] Dr. Renato Weller Glucose Ql (U) Negative Normal NEGATIVE [facility] Comment on above: Performed By: #### C H50T #### [facility] [address] [place] [address] Dr. Renato Weller Hemoglobin Ql (U) Negative Normal NEGATIVE [facility] Comment on above: Performed By: #### C H50T #### [facility] [address] [place] [address] Dr. Renato Weller Ketones Ql (U) Negative Normal NEGATIVE [facility] Comment on above: Performed By: #### C H50T #### [facility] [address] [place] [address] Dr. Renato Weller LEUKOCYTES SMALL Abnormal NEGATIVE [facility] Comment on above: Performed By: #### C H50T #### [facility] [address] [address] [address] Renato Weller MUCOUS NONE SEEN Normal NONE SEEN [facility] Comment on above: Performed By: #### C H50T #### [facility] [address] [place] [address] Dr. Renato Weller Nitrite Ql (U) Negative Normal NEGATIVE [facility] Comment on above: Performed By: #### C H50T #### [facility] [address] [place] [address] Dr. Renato Weller pH (U) 6.0 [pH] Normal 5-9 [facility] Comment on above: Performed By: #### C H50T #### [facility] [address] [address] [address] Renato Weller RBC 0-2 Normal 0-2 [facility] Comment on above: Performed By: #### C H50T #### [facility] [address] [address] [address] Renato Weller SPEC GRAVITY 1.025 Normal 1.005-<=1.025 [facility] Comment on above: Performed By: #### C H50T #### [facility] [address] [place] [address] Dr. Renato Weller UA PROTEIN Negative Normal NEGATIVE/ TRACE [facility] Comment on above: Performed By: #### C H50T #### [facility] [address] [place] [address] Dr. Renato Weller Urobilinogen Qn (U) 0.2 {Paul'U}/dL Normal 0.2 - 1. 0 [facility] Comment on above: Performed By: #### C H50T #### [facility] [address] [place] [address] Dr. Renato Weller WBC 5-10 Abnormal NONE SEEN [facility] Comment on above: Performed By: #### C H50T #### [facility] [address] [place] [address] Dr. Renato Weller CULTURE URINEon 05-02-2022 CULTURE URINE Culture Observations : MODERATE GROWTH OF MIXED GENITAL ROMEL. PLEASE RESUBMIT CLEAN CATCH MID-STREAM URINE IF CLINICALLY INDICATED. Normal [facility] Comment on above: Performed By: #### U AMIC #### [facility] [address] [place] [address] Dr. Renaot Weller UA RANDOM W/MICROSCOPICon BACTERIA LARGE Abnormal NONE SEEN [facility] Comment on above: Performed By: #### U AMIC #### [facility] [address] [place] [address] Dr. Renato Weller Bilirubin Ql (U) MODERATE Abnormal NEGATIVE [facility] Comment on above: Performed By: #### U AMIC #### [facility] [address] [address] [address] Renato Weller CAST NONE SEEN Normal NONE SEEN [facility] Comment on above: Performed By: #### U AMIC #### [facility] [address] [address] [address] Renato Weller Clarity (U) CLEAR Normal CLEAR [facility] Comment on above: Performed By: #### U AMIC #### [facility] [address] [address] [address] Renato Weller Color (U) LT. YELLOW Normal YELLOW [facility] Comment on above: Performed By: #### U AMIC #### [facility] [address] [place] [address] Dr. Renato Weller Crystals LM Nom (Urine sed) NONE SEEN Normal NONE SEEN [facility] Comment on above: Performed By: #### U AMIC #### [facility] [address] [place] [address] Dr. Renato Weller Epithelial cells LM Ql (Urine sed) MODERATE Abnormal NONE SEEN /RARE [facility] Comment on above: Performed By: #### U AMIC #### [facility] [address] [place] [address] Dr. Renato Weller Glucose Ql (U) Negative Normal NEGATIVE [facility] Comment on above: Performed By: #### U AMIC #### [facility] [address] [place] [address] Dr. Renato Weller Hemoglobin Ql (U) LARGE Abnormal NEGATIVE [facility] Comment on above: Performed By: #### U AMIC #### [facility] [address] [place] [address] Dr. Renato Weller Ketones Ql (U) Negative Normal NEGATIVE [facility] Comment on above: Performed By: #### U AMIC #### [facility] [address] [place] [address] Dr. Renato Weller LEUKOCYTES LARGE Abnormal NEGATIVE [facility] Comment on above: Performed By: #### U AMIC #### [facility] [address] [place] [address] Dr. Renato Weller MUCOUS NONE SEEN Normal NONE SEEN [facility] Comment on above: Performed By: #### U AMIC #### [facility] [address] [address] [address] Renato Weller Nitrite Ql (U) Negative Normal NEGATIVE [facility] Comment on above: Performed By: #### U AMIC #### [facility] [address] [address] [address] Renato Weller pH (U) 6.0 [pH] Normal 5-9 [facility] Comment on above: Performed By: #### U AMIC #### [facility] [address] [address] [address] Renato Weller RBC 5-10 Abnormal 0-2 [facility] Comment on above: Performed By: #### U AMIC #### [facility] [address] [place] [address] Dr. Renato Weller SPEC GRAVITY 1.020 Normal 1.005-<=1.025 [facility] Comment on above: Performed By: #### U AMIC #### [facility] [address] [place] [address] Dr. Renato Weller UA PROTEIN Negative Normal NEGATIVE/ TRACE [facility] Comment on above: Performed By: #### U AMIC #### [facility] [address] [place] [address] Dr. Renato Weller Urobilinogen Qn (U) 0.2 {Paul'U}/dL Normal 0.2 - 1. 0 [facility] Comment on above: Performed By: #### U AMIC #### [facility] [address] [place] [address] Dr. Renato Weller WBC 10-20 Abnormal NONE SEEN [facility] Comment on above: Performed By: #### U AMIC #### [facility] [address] [place] [address] Dr. Renato Weller XR CSPINE MIN 4 [...] CASANDRA DURAN Date: 2022-05-01 17:38 Normal [facility] C3 and C4 COMPLEMENTon 04-15 Complement C3, Serum 115 mg/dL Normal 82-167 [facility] Comment on above: Performed By: #### C H50T #### [facility] [address] [place] [address] Dr. Renato Weller Complement C4, Serum 23 mg/dL Normal 12-38 [facility] Comment on above: Performed By: #### C H50T #### [facility] [address] [place] [address] Dr. Renato Weller COMPLEMENT TOTAL (CH50)on Complement, Total (CH50) >60 Normal >41 [facility] Comment on above: Result Comment: Age [...] values. Performed By: #### C H50T #### [facility] [address] [place] [address] Dr. Renato Weller CBC AUTO DIFFon 04-14-2022 BASO # 0.1 103/ul Normal 0.0-0.1 [facility] Comment on above: Performed By: #### C H50T #### [facility] [address] [place] [address] Dr. Renato Weller Basophils/100 WBC (Bld) 1.6 % Normal 0.2-2.0 [facility] Comment on above: Performed By: #### C H50T #### [facility] [address] [place] [address] Dr. Renato Weller EO # 0.1 103/ul Normal 0.0-0.7 [facility] Comment on above: Performed By: #### C H50T #### [facility] [address] [place] [address] Dr. Renato Weller Eosinophils/100 WBC (Bld) 2.0 % Normal 0.9-7.0 [facility] Comment on above: Performed By: #### C H50T #### [facility] [address] [place] [address] Dr. Renato Weller Erythrocyte distribution width (RBC) [Ratio] 12.8 % Normal 11.0-15.0 [facility] Comment on above: Performed By: #### C H50T #### [facility] [address] [place] [address] Dr. Renato Weller Hematocrit (Bld) [Volume fraction] 40.0 % Normal 36.0-48.0 [facility] Comment on above: Performed By: #### C H50T #### [facility] [address] [place] [address] Dr. Renato Weller Hemoglobin (Bld) [Mass/Vol] 12.8 g/dL Normal 12.0-16.0 [facility] Comment on above: Performed By: #### C H50T #### [facility] [address] [place] [address] Dr. Renato Weller IG # 0.02 10e3/ul Normal 0.00-0.03 [facility] Comment on above: Performed By: #### C H50T #### [facility] [address] [place] [address] Dr. Renato Weller IG % 0.4 % Normal 0.0-0.5 [facility] Comment on above: Performed By: #### C H50T #### [facility] [address] [place] [address] Dr. Renato Weller LYMPH # 1.1 103/ul Critically low 1.2-3.8 [facility] Comment on above: Performed By: #### C H50T #### [facility] [address] [place] [address] Dr. Renato Weller Lymphocytes/100 WBC (Bld) 22.2 % Normal 20.5-60.0 [facility] Comment on above: Performed By: #### C H50T #### [facility] [address] [place] [address] Dr. Renato Weller MANUAL DIFF REQ NO Normal [facility] Comment on above: Performed By: #### C H50T #### [facility] [address] [place] [address] Dr. Renato Weller MCH (RBC) [Entitic mass] 31.3 pg Normal 26.7-34.0 [facility] Comment on above: Performed By: #### C H50T #### [facility] [address] [place] [address] Dr. Renato Weller MCHC (RBC) [Mass/Vol] 32.0 g/dL Normal 29.9-35.2 [facility] Comment on above: Performed By: #### C H50T #### [facility] [address] [place] [address] Dr. Renato Weller MCV (RBC) [Entitic vol] 97.8 fL Normal 81.0-99.0 [facility] Comment on above: Performed By: #### C H50T #### [facility] [address] [place] [address] Dr. Renato Weller MONO # 0.5 103/ul Normal 0.3-0.8 [facility] Comment on above: Performed By: #### C H50T #### [facility] [address] [place] [address] Dr. Renato Weller Monocytes/100 WBC (Bld) 9.8 % Normal 1.7-12.0 [facility] Comment on above: Performed By: #### C H50T #### [facility] [address] [place] [address] Dr. Renato Weller NEUT # 3.2 103/ul Normal 1.4-6.5 [facility] Comment on above: Performed By: #### C H50T #### [facility] [address] [address] [address] Renato Weller Neutrophils/100 WBC (Bld) 64.0 % Normal 43.0-75.0 [facility] Comment on above: Performed By: #### C H50T #### [facility] [address] [address] [address] Renato Weller Platelet mean volume (Bld) [Entitic vol] 9.3 fL Critically low 9.5-13.5 [facility] Comment on above: Performed By: #### C H50T #### [facility] [address] [address] [address] Renato Weller PLT 181 103/ul Normal 150-450 [facility] Comment on above: Performed By: #### C H50T #### [facility] [address] [place] [address] Dr. Renato Weller RBC 4.09 106/ul Critically low 4.20-5.40 [facility] Comment on above: Performed By: #### C H50T #### [facility] [address] [place] [address] Dr. Renato Weller WBC 5.0 103/ul Normal 4.0-11.0 [facility] Comment on above: Performed By: #### C H50T #### [facility] [address] [place] [address] Dr. Renato Weller LIPID PROFILEon 04-14-2022 CHOL-HDL RATIO NORM SEE BELOW Normal [facility] Comment on above: Result Comment: 3.3 - 4.4 LOW RISK 4.4 - 7.1 AVERAGE RISK 7.1 - 11.0 MODERATE RISK >11.0 HIGH RISK Performed By: #### T SH, LIPID #### [facility] [address] [address] [address] Renato Weller Cholesterol [Mass/Vol] 176 mg/dL Normal <=200 [facility] Comment on above: Performed By: #### T SH, LIPID #### [facility] [address] [address] [address] Renato Weller Cholesterol in HDL [Mass/Vol] 71 mg/dL Critically high 40-60 [facility] Comment on above: Performed By: #### T SH, LIPID #### [facility] [address] [address] [address] Renato Weller Cholesterol in LDL [Mass/Vol] 94.0 mg/dL Normal [facility] Comment on above: Performed By: #### T SH, LIPID #### [facility] [address] [address] [address] Renato Weller Cholesterol.total/C holesterol in HDL [Mass ratio] 2.5 {ratio} Normal [facility] Comment on above: Performed By: #### T SH, LIPID #### [facility] [address] [address] [address] Renato Weller HDL NORMAL > or = 60 mg/dl - LO W CARDIOVASCULAR RISK <40 mg/dl - HIGH CARDIOVASCULAR RISK Normal [facility] Comment on above: Performed By: #### T SH, LIPID #### [facility] [address] [place] [address] Dr. Renato Weller LDL CALC NORMAL SEE BELOW Normal [facility] Comment on above: Result Comment: <100 mg/dl OPTIMAL 100 - 129 mg/dl NEAR OR ABOVE OPTIMAL 130 - 159 mg/dl BORDERLINE HIGH 160 - 189 mg/dl HIGH >190 mg/dl VERY HIGH Performed By: #### T SH, LIPID #### [facility] [address] [address] [address] Renato Weller Triglyceride [Mass/Vol] 55 mg/dL Normal <=150 [facility] Comment on above: Performed By: #### T SH, LIPID #### [facility] [address] [place] [address] Dr. Renato Weller VLDL CALC 11.0 mg/dL Normal [facility] Comment on above: Performed By: #### T SH, LIPID #### [facility] [address] [place] [address] Dr. Renato Weller MG MAMM SCREEN 3D HERBERT CADon 04-14-2022 MG MAMM SCREEN 3D HERBERT CAD Patient: GENNA HERRERA Exam Date: 04/14/2022 : 1950 Gender:F Ordering : DR CASANDRA CHOPRA Admission #: [id number] Family : Order #: [id number] CLICK HERE TO VIEW EXAM RADIOLOGY REPORT [...] ovarian cancer at age 44. LOCATION: [facility] BREAST COMPOSITION: Scattered areas fibroglandular density. [...] Duran MD on 04/14/2022 at 09:31 Normal [facility] PROF 14(COMP METB)on 022 Albumin [Mass/Vol] 3.8 g/dL Normal 3.4-5.[address] [facility] Comment on above: Performed By: #### C MP #### [facility] [address] [place] [address] Dr. Renato Weller Albumin/Globulin [Mass ratio] 1.2 {ratio} Normal [facility] Comment on above: Performed By: #### C MP #### [facility] [address] [place] [address] Dr. Renato Weller ALP [Catalytic activity/Vol] 41 U/L Critically low 46-116 [facility] Comment on above: Performed By: #### C MP #### [facility] [address] [place] [address] Dr. Rentao Weller ALT [Catalytic activity/Vol] 23 U/L Normal 14-59 [facility] Comment on above: Performed By: #### C MP #### [facility] [address] [place] [address] Dr. Renato Weller Anion gap [Moles/Vol] 10.0 mmol/L Normal [facility] Comment on above: Performed By: #### C MP #### [facility] [address] [address] [address] Renato Weller AST [Catalytic activity/Vol] 20 U/L Normal 15-37 [facility] Comment on above: Performed By: #### C MP #### [facility] [address] [address] [address] Renato Weller Bilirubin [Mass/Vol] 0.4 mg/dL Normal 0.2-1.0 [facility] Comment on above: Performed By: #### C MP #### [facility] [address] [address] [address] Renato Weller Calcium [Mass/Vol] 8.5 mg/dL Normal 8.5-10.[address] [facility] Comment on above: Performed By: #### C MP #### [facility] [address] [address] [address] Renato Weller Chloride [Moles/Vol] 104 mmol/L Normal 98-107 [facility] Comment on above: Performed By: #### C MP #### [facility] [address] [address] [address] Renato Weller CO2 [Moles/Vol] 29.0 mmol/L Normal 21.0-32.[address] [facility] Comment on above: Performed By: #### C MP #### [facility] [address] [address] [address] Renato Weller Creatinine [Mass/Vol] 0.69 mg/dL Normal 0.55-1.02 [facility] Comment on above: Performed By: #### C MP #### [facility] [address] [address] [address] Renato Weller EGFR-AF BURUNDIAN >60 Normal >=[address] [facility] Comment on above: Performed By: #### C MP #### [facility] [address] [address] [address] Renato Weller EGFR-NON AF BURUNDIAN >60 Normal >=60 [facility] Comment on above: Performed By: #### C MP #### [facility] [address] [address] [address] Renato Weller Globulin (S) [Mass/Vol] 3.2 g/dL Normal [facility] Comment on above: Performed By: #### C MP #### [facility] [address] [address] [address] Renato Weller Glucose [Mass/Vol] 84 mg/dL Normal 74-[address] [facility] Comment on above: Performed By: #### C MP #### [facility] [address] [address] [address] Renato Weller Potassium [Moles/Vol] 4.0 mmol/L Normal 3.5-5.1 [facility] Comment on above: Performed By: #### C MP #### [facility] Laboratory [address] [place] [address] Dr. Renato Weller Protein [Mass/Vol] 7.0 g/dL Normal 6.4-8.2 [facility] Comment on above: Performed By: #### C MP #### [facility] [address] [address] [address] Renato Weller Sodium [Moles/Vol] 139 mmol/L Normal 136-[address] [facility] Comment on above: Performed By: #### C MP #### [facility] [address] [address] [address] Renato Weller Urea nitrogen [Mass/Vol] 16.0 mg/dL Normal 7.0-18.0 [facility] Comment on above: Performed By: #### C MP #### [facility] [address] [address] [address] Renato Weller Urea nitrogen/Creatinine [Mass ratio] 23.2 mg/mg Normal [facility] Comment on above: Performed By: #### C MP #### [facility] [address] [address] [address] Renato Weller SED RATE [facility] 2021 SED RATE 16 mm/hr Normal <=30 [facility] Comment on above: Performed By: #### U AMIC #### [facility] [address] [place] [address] Dr. Renato Weller TSHon 04-14-2022 TSH 3.056 uIU/mL Normal 0.358-3.740 [facility] Comment on above: Performed By: #### T SH, LIPID #### [facility] [address] [place] [address] Dr. Renato Weller UA RANDOM W/MICROSCOPICon BACTERIA MODERATE Abnormal NONE SEEN [facility] Comment on above: Performed By: #### C H50T #### [facility] [address] [place] [address] Dr. Renato Weller Bilirubin Ql (U) LARGE Abnormal NEGATIVE [facility] Comment on above: Performed By: #### C H50T #### [facility] [address] [place] [address] Dr. Renato Weller CAST NONE SEEN Normal NONE SEEN [facility] Comment on above: Performed By: #### C H50T #### [facility] [address] [place] [address] Dr. Renato Weller Clarity (U) CLEAR Normal CLEAR [facility] Comment on above: Performed By: #### C H50T #### [facility] [address] [place] [address] Dr. Renato Weller Color (U) LT. YELLOW Normal YELLOW [facility] Comment on above: Performed By: #### C H50T #### [facility] [address] [place] [address] Dr. Renato Weller Crystals LM Nom (Urine sed) NONE SEEN Normal NONE SEEN [facility] Comment on above: Performed By: #### C H50T #### [facility] [address] [place] [address] Dr. Renato Weller Epithelial cells LM Ql (Urine sed) MANY Abnormal NONE SEEN /RARE [facility] Comment on above: Performed By: #### C H50T #### [facility] [address] [place] [address] Dr. Renato Weller Glucose Ql (U) Negative Normal NEGATIVE [facility] Comment on above: Performed By: #### C H50T #### [facility] [address] [address] [address] Renato Weller Hemoglobin Ql (U) Negative Normal NEGATIVE [facility] Comment on above: Performed By: #### C H50T #### [facility] [address] [address] [address] Renato Weller Ketones Ql (U) Negative Normal NEGATIVE [facility] Comment on above: Performed By: #### C H50T #### [facility] [address] [address] [address] Renato Weller LEUKOCYTES LARGE Abnormal NEGATIVE [facility] Comment on above: Performed By: #### C H50T #### [facility] [address] [place] [address] Dr. Renato Weller MUCOUS NONE SEEN Normal NONE SEEN [facility] Comment on above: Performed By: #### C H50T #### [facility] [address] [place] [address] Dr. Renato Weller Nitrite Ql (U) Negative Normal NEGATIVE [facility] Comment on above: Performed By: #### C H50T #### [facility] [address] [place] [address] Dr. Renato Weller pH (U) 6.0 [pH] Normal 5-9 [facility] Comment on above: Performed By: #### C H50T #### [facility] [address] [place] [address] Dr. Renato Weller RBC 2-5 Abnormal 0-2 [facility] Comment on above: Performed By: #### C H50T #### [facility] [address] [address] [address] Renato Weller SPEC GRAVITY 1.025 Normal 1.005-<=1.025 [facility] Comment on above: Performed By: #### C H50T #### [facility] [address] [place] [address] Dr. Renato Weller UA PROTEIN Negative Normal NEGATIVE/ TRACE [facility] Comment on above: Performed By: #### C H50T #### [facility] [address] [address] [address] Renato Weller Urobilinogen Qn (U) 0.2 {Paul'U}/dL Normal 0.2 - 1. 0 [facility] Comment on above: Performed By: #### C H50T #### [facility] [address] [address] [address] Renato Weller WBC 10-20 Abnormal NONE SEEN [facility] Comment on above: Performed By: #### C H50T #### [facility] [address] [address] [address] Renato Weller RAD - CT Reporton 02-26-2022 RAD - CT Report [id number]:[id number] Normal [facility] CT ABDOMEN WO CONTRASTon CT [...] MARII TURCIOS Date: 2022-02-19 17:17 Normal [facility] Ambulatory Visit Summaryon 0 02-04-2022 Ambulatory [...] Varicose veins of legs Ventral hernia Normal [facility] Physician Referralon 022 Physician Referral [id number]:[id number] Normal [facility] XR DEXA BONE DENSITYon 12-30 [...] by: CASANDRA DURAN Date: 2021-12-30 16:10 Normal [facility] C3 and C4 COMPLEMENTon 12-17 Complement C3, Serum 122 mg/dL Normal 82-167 [facility] Comment on above: Performed By: #### C SUITE #### [facility] [address] [place] [address] Dr. Renato Weller Complement C4, Serum 24 mg/dL Normal 12-38 [facility] Comment on above: Performed By: #### C SUITE #### [facility] [address] [place] [address] Dr. Renato Weller COMPLEMENT TOTAL (CH50)on Complement, Total (CH50) >60 Normal >41 [facility] Comment on above: Result Comment: Age [...] values. Performed By: #### C H50T #### [facility] [address] [place] [address] Dr. Renato Weller CBC AUTO DIFFon 12-16-2021 BASO # 0.1 103/ul Normal 0.0-0.1 [facility] Comment on above: Performed By: #### L IPID, CMP #### [facility] [address] [place] [address] Dr. Renato Weller Basophils/100 WBC (Bld) 1.8 % Normal 0.2-2.0 [facility] Comment on above: Performed By: #### L IPID, CMP #### [facility] [address] [place] [address] Dr. Renato Weller EO # 0.1 103/ul Normal 0.0-0.7 [facility] Comment on above: Performed By: #### L IPID, CMP #### [facility] [address] [place] [address] Dr. Renato Weller Eosinophils/100 WBC (Bld) 2.2 % Normal 0.9-7.0 [facility] Comment on above: Performed By: #### L IPID, CMP #### [facility] [address] [place] [address] Dr. Renato Weller Erythrocyte distribution width (RBC) [Ratio] 13.8 % Normal 11.0-15.0 [facility] Comment on above: Performed By: #### L IPID, CMP #### [facility] [address] [place] [address] Dr. Renato Weller Hematocrit (Bld) [Volume fraction] 39.4 % Normal 36.0-48.0 [facility] Comment on above: Performed By: #### L IPID, CMP #### [facility] [address] [place] [address] Dr. Renato Weller Hemoglobin (Bld) [Mass/Vol] 12.5 g/dL Normal 12.0-16.0 [facility] Comment on above: Performed By: #### L IPID, CMP #### [facility] [address] [place] [address] Dr. Renato Weller IG # 0.02 10e3/ul Normal 0.00-0.03 [facility] Comment on above: Performed By: #### L IPID, CMP #### [facility] [address] [place] [address] Dr. Renato Weller IG % 0.4 % Normal 0.0-0.5 [facility] Comment on above: Performed By: #### L IPID, CMP #### [facility] [address] [place] [address] Dr. Renato Weller LYMPH # 1.0 103/ul Critically low 1.2-3.8 [facility] Comment on above: Performed By: #### L IPID, CMP #### [facility] [address] [place] [address] Dr. Renato Weller Lymphocytes/100 WBC (Bld) 18.5 % Critically low 20.5-60.0 [facility] Comment on above: Performed By: #### L IPID, CMP #### [facility] [address] [place] [address] Dr. Renato Weller MANUAL DIFF REQ NO Normal [facility] Comment on above: Performed By: #### L IPID, CMP #### [facility] [address] [address] [address] Renato Weller MCH (RBC) [Entitic mass] 30.8 pg Normal 26.7-34.0 [facility] Comment on above: Performed By: #### L IPID, CMP #### [facility] [address] [place] [address] Dr. Renato Weller MCHC (RBC) [Mass/Vol] 31.7 g/dL Normal 29.9-35.2 [facility] Comment on above: Performed By: #### L IPID, CMP #### [facility] [address] [place] [address] Dr. Renato Weller MCV (RBC) [Entitic vol] 97.0 fL Normal 81.0-99.0 [facility] Comment on above: Performed By: #### L IPID, CMP #### [facility] [address] [place] [address] Dr. Renato Weller MONO # 0.5 103/ul Normal 0.3-0.8 [facility] Comment on above: Performed By: #### L IPID, CMP #### [facility] [address] [place] [address] Dr. Renato Weller Monocytes/100 WBC (Bld) 9.3 % Normal 1.7-12.0 [facility] Comment on above: Performed By: #### L IPID, CMP #### [facility] [address] [place] [address] Dr. Renato Weller NEUT # 3.8 103/ul Normal 1.4-6.5 [facility] Comment on above: Performed By: #### L IPID, CMP #### [facility] [address] [place] [address] Dr. Renato Weller Neutrophils/100 WBC (Bld) 67.8 % Normal 43.0-75.0 [facility] Comment on above: Performed By: #### L IPID, CMP #### [facility] [address] [place] [address] Dr. Renato Weller Platelet mean volume (Bld) [Entitic vol] 9.1 fL Critically low 9.5-13.5 [facility] Comment on above: Performed By: #### L IPID, CMP #### [facility] [address] [place] [address] Dr. Renato Weller PLT 240 103/ul Normal 150-450 [facility] Comment on above: Performed By: #### L IPID, CMP #### [facility] [address] [address] [address] Renato Weller RBC 4.06 106/ul Critically low 4.20-5.40 [facility] Comment on above: Performed By: #### L IPID, CMP #### [facility] [address] [place] [address] Dr. Renato Weller WBC 5.6 103/ul Normal 4.0-11.0 [facility] Comment on above: Performed By: #### L IPID, CMP #### [facility] [address] [place] [address] Dr. Renato Weller PROF 14(COMP METB)on 022 Albumin [Mass/Vol] 3.5 g/dL Normal 3.4-5.[address] [facility] Comment on above: Performed By: #### C H50T #### [facility] [address] [place] [address] Dr. Renato Weller Albumin/Globulin [Mass ratio] 1.1 {ratio} Normal [facility] Comment on above: Performed By: #### C H50T #### [facility] [address] [place] [address] Dr. Renato Weller ALP [Catalytic activity/Vol] 51 U/L Normal 46-116 [facility] Comment on above: Performed By: #### C H50T #### [facility] [address] [place] [address] Dr. Renato Weller ALT [Catalytic activity/Vol] 22 U/L Normal 14-59 [facility] Comment on above: Performed By: #### C H50T #### [facility] [address] [address] [address] Renato Weller Anion gap [Moles/Vol] 13.0 mmol/L Normal [facility] Comment on above: Performed By: #### C H50T #### [facility] [address] [address] [address] Renato Weller AST [Catalytic activity/Vol] 17 U/L Normal 15-37 [facility] Comment on above: Performed By: #### C H50T #### [facility] [address] [address] [address] Renato Weller Bilirubin [Mass/Vol] 0.4 mg/dL Normal 0.2-1.0 [facility] Comment on above: Performed By: #### C H50T #### [facility] [address] [place] [address] Dr. Renato Weller Calcium [Mass/Vol] 8.3 mg/dL Critically low 8.5-10.[address] [facility] Comment on above: Performed By: #### C H50T #### [facility] [address] [place] [address] Dr. Renato Weller Chloride [Moles/Vol] 104 mmol/L Normal 98-107 [facility] Comment on above: Performed By: #### C H50T #### [facility] [address] [place] [address] Dr. Renato Weller CO2 [Moles/Vol] 27.4 mmol/L Normal 21.0-32.[address] [facility] Comment on above: Performed By: #### C H50T #### [facility] [address] [place] [address] Dr. Renato Weller Creatinine [Mass/Vol] 0.71 mg/dL Normal 0.55-1.02 [facility] Comment on above: Performed By: #### C H50T #### [facility] [address] [place] [address] Dr. Renato Weller EGFR-AF BURUNDIAN >60 Normal >=[address] [facility] Comment on above: Performed By: #### C H50T #### [facility] [address] [address] [address] Renato Weller EGFR-NON AF BURUNDIAN >60 Normal >=60 [facility] Comment on above: Performed By: #### C H50T #### [facility] [address] [place] [address] Dr. Renato Weller Globulin (S) [Mass/Vol] 3.1 g/dL Normal [facility] Comment on above: Performed By: #### C H50T #### [facility] [address] [address] [address] Renato Weller Glucose [Mass/Vol] 85 mg/dL Normal 74-106 [facility] Comment on above: Performed By: #### C H50T #### [facility] [address] [place] [address] Dr. Renato Weller Potassium [Moles/Vol] 4.4 mmol/L Normal 3.5-5.1 [facility] Comment on above: Performed By: #### C H50T #### [facility] [address] [place] [address] Dr. Renato Weller Protein [Mass/Vol] 6.6 g/dL Normal 6.4-8.2 [facility] Comment on above: Performed By: #### C H50T #### [facility] [address] [place] [address] Dr. Renato Weller Sodium [Moles/Vol] 140 mmol/L Normal 136-145 [facility] Comment on above: Performed By: #### C H50T #### [facility] [address] [place] [address] Dr. Renato Weller Urea nitrogen [Mass/Vol] 14.0 mg/dL Normal 7.0-18.0 [facility] Comment on above: Performed By: #### C H50T #### [facility] [address] [place] [address] Dr. Renato Weller Urea nitrogen/Creatinine [Mass ratio] 19.7 mg/mg Normal [facility] Comment on above: Performed By: #### C H50T #### [facility] [address] [place] [address] Dr. Renato Weller SED RATE [facility] 2021 SED RATE 6 mm/hr Normal <=30 [facility] Comment on above: Performed By: #### C H50T #### [facility] [address] [place] [address] Dr. Renato Weller UA RANDOM W/MICROSCOPICon BACTERIA TRACE Abnormal NONE SEEN [facility] Comment on above: Performed By: #### C H50T #### [facility] [address] [place] [address] Dr. Renato Weller Bilirubin Ql (U) MODERATE Abnormal NEGATIVE [facility] Comment on above: Performed By: #### C H50T #### [facility] [address] [place] [address] Dr. Renato Weller CAST NONE SEEN Normal NONE SEEN [facility] Comment on above: Performed By: #### C H50T #### [facility] [address] [place] [address] Dr. Renato Weller Clarity (U) CLEAR Normal CLEAR [facility] Comment on above: Performed By: #### C H50T #### [facility] [address] [place] [address] Dr. Renato Weller Color (U) LT. YELLOW Normal YELLOW [facility] Comment on above: Performed By: #### C H50T #### [facility] [address] [place] [address] Dr. Renato Weller Crystals LM Nom (Urine sed) NONE SEEN Normal NONE SEEN [facility] Comment on above: Performed By: #### C H50T #### [facility] [address] [place] [address] Dr. Renato Weller Epithelial cells LM Ql (Urine sed) MODERATE Abnormal NONE SEEN /RARE [facility] Comment on above: Performed By: #### C H50T #### [facility] [address] [place] [address] Dr. Renato Weller Glucose Ql (U) Negative Normal NEGATIVE [facility] Comment on above: Performed By: #### C H50T #### [facility] [address] [place] [address] Dr. Renato Weller Hemoglobin Ql (U) Negative Normal NEGATIVE [facility] Comment on above: Performed By: #### C H50T #### [facility] [address] [place] [address] Dr. Renato Weller Ketones Ql (U) Negative Normal NEGATIVE [facility] Comment on above: Performed By: #### C H50T #### [facility] [address] [place] [address] Dr. Renato Weller LEUKOCYTES SMALL Abnormal NEGATIVE [facility] Comment on above: Performed By: #### C H50T #### [facility] [address] [place] [address] Dr. Renato Weller MUCOUS NONE SEEN Normal NONE SEEN [facility] Comment on above: Performed By: #### C H50T #### [facility] [address] [place] [address] Dr. Renato Weller Nitrite Ql (U) Negative Normal NEGATIVE [facility] Comment on above: Performed By: #### C H50T #### [facility] [address] [place] [address] Dr. Renato Weller pH (U) 6.0 [pH] Normal 5-9 [facility] Comment on above: Performed By: #### C H50T #### [facility] [address] [place] [address] Dr. Renato Weller RBC NONE SEEN Abnormal 0-2 [facility] Comment on above: Performed By: #### C H50T #### [facility] [address] [place] [address] Dr. Renato Weller SPEC GRAVITY 1.010 Normal 1.005-<=1.025 [facility] Comment on above: Performed By: #### C H50T #### [facility] [address] [place] [address] Dr. Renato Weller UA PROTEIN Negative Normal NEGATIVE/ TRACE [facility] Comment on above: Performed By: #### C H50T #### [facility] [address] [place] [address] Dr. Renato Weller Urobilinogen Qn (U) 0.2 {Paul'U}/dL Normal 0.2 - 1. 0 [facility] Comment on above: Performed By: #### C H50T #### [facility] [address] [place] [address] Dr. Renato Weller WBC 2-5 Abnormal NONE SEEN [facility] Comment on above: Performed By: #### C H50T #### [facility] [address] [address] [address] Renato Weller C-Reactive Proteinon 019 CRP [Mass/Vol] 0.6 mg/dL Normal 0.0-1.0 [facility] Comment on above: Performed By: #### C BC, CK, CMP, CRP, T4F, TSH3, ESR #### [address] Complete Blood Count Auto Di ffon 04-06-2019 Basophils (Bld) [#/Vol] 0.1 10*3/uL Normal 0.0-0.2 [facility] Comment on above: Result Comment: PERF ORMED BY: [place] [address] PATHOLOGIST [employer] ROSLYN TALLEY M.D. Performed By: #### C BC, CK, CMP, CRP, T4F, TSH3, ESR #### [address] Basophils/100 WBC (Bld) 1.0 % Normal . [facility] Comment on above: Performed By: #### C BC, CK, CMP, CRP, T4F, TSH3, ESR #### [facility] [address] [place] [address] [place] Eosinophils (Bld) [#/Vol] 0.1 10*3/uL Normal 0.0-0.45 [facility] Comment on above: Performed By: #### C BC, CK, CMP, CRP, T4F, TSH3, ESR #### [facility] [address] [place] [address] [place] Eosinophils/100 WBC (Bld) 0.9 % Normal . [facility] Comment on above: Performed By: #### C BC, CK, CMP, CRP, T4F, TSH3, ESR #### [address] Erythrocyte distribution width (RBC) [Ratio] 14.5 % Normal 11.9-15.3 [facility] Comment on above: Performed By: #### C BC, CK, CMP, CRP, T4F, TSH3, ESR #### [address] Hematocrit (Bld) [Volume fraction] 44.9 % Normal 34.0-46.4 [facility] Comment on above: Performed By: #### C BC, CK, CMP, CRP, T4F, TSH3, ESR #### [address] Hemoglobin (Bld) [Mass/Vol] 15.2 g/dL Normal 11.8-15.4 [facility] Comment on above: Performed By: #### C BC, CK, CMP, CRP, T4F, TSH3, ESR #### [address] Lymphocytes (Bld) [#/Vol] 1.1 10*3/uL Normal 1.00-4.8 [facility] Comment on above: Performed By: #### C BC, CK, CMP, CRP, T4F, TSH3, ESR #### [address] Lymphocytes/100 WBC (Bld) 14.6 % Normal . [facility] Comment on above: Performed By: #### C BC, CK, CMP, CRP, T4F, TSH3, ESR #### [address] MCH (RBC) [Entitic mass] 34.0 g/dL Normal 32.0-35.0 [facility] Comment on above: Performed By: #### C BC, CK, CMP, CRP, T4F, TSH3, ESR #### [address] [address] [place] MCH (RBC) [Entitic mass] 30.8 pg Normal 24.7-34.3 [facility] Comment on above: Performed By: #### C BC, CK, CMP, CRP, T4F, TSH3, ESR #### [address] MCV (RBC) [Entitic vol] 90.5 fL Normal 80-100 [facility] Comment on above: Performed By: #### C BC, CK, CMP, CRP, T4F, TSH3, ESR #### [address] Monocytes (Bld) [#/Vol] 0.5 10*3/uL Normal 0.0-0.8 [facility] Comment on above: Performed By: #### C BC, CK, CMP, CRP, T4F, TSH3, ESR #### [address] Monocytes/100 WBC (Bld) 7.0 % Normal . [facility] Comment on above: Performed By: #### C BC, CK, CMP, CRP, T4F, TSH3, ESR #### [address] Neutrophils (Bld) [#/Vol] 6.0 10*3/uL Normal 1.8-7.7 [facility] Comment on above: Performed By: #### C BC, CK, CMP, CRP, T4F, TSH3, ESR #### [address] Neutrophils/100 WBC (Bld) 76.5 % Normal . [facility] Comment on above: Performed By: #### C BC, CK, CMP, CRP, T4F, TSH3, ESR #### [address] Nucleated RBC/100 WBC (Bld) [Ratio] 0.2 % Normal 0-0.5 [facility] Comment on above: Performed By: #### C BC, CK, CMP, CRP, T4F, TSH3, ESR #### [facility] [address] Platelet mean volume (Bld) [Entitic vol] 8.6 fL Normal 6.3-10.7 [facility] Comment on above: Performed By: #### C BC, CK, CMP, CRP, T4F, TSH3, ESR #### [facility] [address] Platelets (Bld) [#/Vol] 218 10*3/uL Normal 150-450 [facility] Comment on above: Performed By: #### C BC, CK, CMP, CRP, T4F, TSH3, ESR #### [facility] [address] RBC (Bld) [#/Vol] 4.96 10*6/uL Normal 3.60-5.00 [facility] Comment on above: Performed By: #### C BC, CK, CMP, CRP, T4F, TSH3, ESR #### [address] WBC (Bld) [#/Vol] 7.8 10*3/uL Normal 4.5-11.0 [facility] Comment on above: Performed By: #### C BC, CK, CMP, CRP, T4F, TSH3, ESR #### [address] Comprehensive Metabolic Pane molly 04-06-2019 Albumin [Mass/Vol] 4.0 g/dL Normal 3.2-5.5 [facility] Comment on above: Performed By: #### C BC, CK, CMP, CRP, T4F, TSH3, ESR #### [address] Albumin/Globulin [Mass ratio] 1.5 {ratio} Normal [facility] Comment on above: Performed By: #### C BC, CK, CMP, CRP, T4F, TSH3, ESR #### [address] ALP [Catalytic activity/Vol] 40 U/L Normal 32-92 [facility] Comment on above: Performed By: #### C BC, CK, CMP, CRP, T4F, TSH3, ESR #### [facility] [place] [facility] [address] [place] [address] ALT [Catalytic activity/Vol] 10 U/L Normal 10-60 [facility] Comment on above: Performed By: #### C BC, CK, CMP, CRP, T4F, TSH3, ESR #### [address] AST [Catalytic activity/Vol] 15 U/L Normal 10-42 [facility] Comment on above: Performed By: #### C BC, CK, CMP, CRP, T4F, TSH3, ESR #### [address] Bilirubin [Mass/Vol] 0.6 mg/dL Normal 0.3-1.2 [facility] Comment on above: Performed By: #### C BC, CK, CMP, CRP, T4F, TSH3, ESR #### [address] Calcium [Mass/Vol] 9.6 mg/dL Normal 8.2-10.2 [facility] Comment on above: Performed By: #### C BC, CK, CMP, CRP, T4F, TSH3, ESR #### [address] Chloride [Moles/Vol] 103 mmol/L Normal 95-114 [facility] Comment on above: Performed By: #### C BC, CK, CMP, CRP, T4F, TSH3, ESR #### [address] CO2 [Moles/Vol] 26.6 mmol/L Normal 22.0-30.0 [facility] Comment on above: Performed By: #### C BC, CK, CMP, CRP, T4F, TSH3, ESR #### [address] Creatinine [Mass/Vol] 0.79 mg/dL Normal 0.44-1.03 [facility] Comment on above: Performed By: #### C BC, CK, CMP, CRP, T4F, TSH3, ESR #### [facility] [place] [facility] [address] Estimated GFR ( Kimberly > 60 Normal [facility] Comment on above: Result Comment: GFR estimated reference range: According to KDOQI guidelines, <60 ml/min/1.73m2 is sufficient to diagnose a patient with chronic kidney disease. Performed By: #### C BC, CK, CMP, CRP, T4F, TSH3, ESR #### [facility] [place] [facility] [address] Estimated GFR (Non- Am > 60 Normal [facility] Comment on above: Performed By: #### C BC, CK, CMP, CRP, T4F, TSH3, ESR #### [facility] [address] Globulin (S) [Mass/Vol] 2.6 g/dL Normal [facility] Comment on above: Performed By: #### C BC, CK, CMP, CRP, T4F, TSH3, ESR #### [facility] [address] Glucose [Mass/Vol] 87 mg/dL Normal 70-100 [facility] Comment on above: Result Comment: [place] Glucose Reference Range is dependent on time and content of last meal. Glucose of more than 200 mg/dL in a nonstressed, ambulatory subject supports the diagnosis of Diabetes Mellitus. ADA recommended reference range Performed By: #### C BC, CK, CMP, CRP, T4F, TSH3, ESR #### [facility] [address] Potassium [Moles/Vol] 4.2 mmol/L Normal 3.5-5.1 [facility] Comment on above: Performed By: #### C BC, CK, CMP, CRP, T4F, TSH3, ESR #### [facility] [address] Protein [Mass/Vol] 6.6 g/dL Normal 6.1-7.9 [facility] Comment on above: Performed By: #### C BC, CK, CMP, CRP, T4F, TSH3, ESR #### [address] Sodium [Moles/Vol] 140 mmol/L Normal 136-146 [facility] Comment on above: Performed By: #### C BC, CK, CMP, CRP, T4F, TSH3, ESR #### [address] Urea nitrogen [Mass/Vol] 12 mg/dL Normal 9-23 [facility] Comment on above: Performed By: #### C BC, CK, CMP, CRP, T4F, TSH3, ESR #### [address] Creatine Kinaseon 04-06-2019 CK [Catalytic activity/Vol] 46 U/L Normal 22-269 [facility] Comment on above: Result Comment: PERF ORMED BY: [place] [address] PATHOLOGIST [employer]PERATIONS MANAGER ROSLYN TALLEY M.D. Performed By: #### C BC, CK, CMP, CRP, T4F, TSH3, ESR #### [address] Dipstick and Microscopicon 1 Appearance (U) Turbid Critically abnormal Clear [facility] Comment on above: Order Comment: Name Collection Type:: Clean-Voided Midstream Performed By: #### A DDONUAPLUS, PT, PTT #### [address] Bacteria LM.HPF (Urine sed) [#/Area] 1+ High None Seen [facility] Comment on above: Order Comment: Name Collection Type:: Clean-Voided Midstream Performed By: #### A DDONUAPLUS, PT, PTT #### [place] [address] [place] Bilirubin,Urine Negative Normal Negative [facility] Comment on above: Order Comment: Name Collection Type:: Clean-Voided Midstream Performed By: #### A DDONUAPLUS, PT, PTT #### [facility] [place] [facility] [address] [place] [address] [place] Color (U) Yellow Normal Yellow [facility] Comment on above: Order Comment: Name Collection Type:: Clean-Voided Midstream Performed By: #### A DDONUAPLUS, PT, PTT #### [facility] [place] [facility] [address] [place] [address] [place] Glucose Ql (U) Normal Normal Normal [facility] Comment on above: Order Comment: Name Collection Type:: Clean-Voided Midstream Performed By: #### A DDONUAPLUS, PT, PTT #### [facility] [place] [facility] [address] [place] [address] [place] Hyaline Casts,Urine None Seen Normal 0-1 [facility] Comment on above: Order Comment: Name Collection Type:: Clean-Voided Midstream Performed By: #### A DDONUAPLUS, PT, PTT #### [facility] [place] [facility] [address] [place] [address] [place] Ketones Ql (U) Trace High Negative [facility] Comment on above: Order Comment: Name Collection Type:: Clean-Voided Midstream Performed By: #### A DDONUAPLUS, PT, PTT #### [place] [address] [place] Leukocyte esterase Test strip Ql (U) 3+ High Negative [facility] Comment on above: Order Comment: Name Collection Type:: Clean-Voided Midstream Performed By: #### A DDONUAPLUS, PT, PTT #### [facility] [place] [facility] [address] [place] [address] [place] Nitrite,Urine Negative Normal Negative [facility] Comment on above: Order Comment: Name Collection Type:: Clean-Voided Midstream Performed By: #### A DDONUAPLUS, PT, PTT #### [place] [address] [place] Occult Blood,Urine Negative Normal Negative [facility] Comment on above: Order Comment: Name Collection Type:: Clean-Voided Midstream Performed By: #### A DDONUAPLUS, PT, PTT #### [address] Other Casts,Urine None Seen Normal None Seen [facility] Comment on above: Order Comment: Name Collection Type:: Clean-Voided Midstream Result Comment: PERF ORMED BY: [place] [address] PATHOLOGIST [employer]PERATIONS MANAGER ROSLYN TALLEY M.D. Performed By: #### A DDONUAPLUS, PT, PTT #### [address] pH (U) 5.0 [pH] Normal 5.0-9.0 [facility] Comment on above: Order Comment: Name Collection Type:: Clean-Voided Midstream Performed By: #### A DDONUAPLUS, PT, PTT #### [address] Protein (U) [Mass/Vol] Negative Normal Negative [facility] Comment on above: Order Comment: Name Collection Type:: Clean-Voided Midstream Performed By: #### A DDONUAPLUS, PT, PTT #### [address] RBC LM.HPF (Urine sed) [#/Area] 5-9 High 0-4 [facility] Comment on above: Order Comment: Name Collection Type:: Clean-Voided Midstream Performed By: #### A DDONUAPLUS, PT, PTT #### [address] Specificy [place],Urine 1.024 Normal 1.001-1.030 [facility] Comment on above: Order Comment: Name Collection Type:: Clean-Voided Midstream Performed By: #### A DDONUAPLUS, PT, PTT #### [address] Squamous Epithelial Cell,Urine 5-9 High 0-2 [facility] Comment on above: Order Comment: Name Collection Type:: Clean-Voided Midstream Performed By: #### A DDONUAPLUS, PT, PTT #### [address] Urobilinogen,Urine Normal Normal Normal [facility] Comment on above: Order Comment: Name Collection Type:: Clean-Voided Midstream Performed By: #### A DDONUAPLUS, PT, PTT #### [address] WBC LM.HPF (Urine sed) [#/Area] 20-49 High 0-4 [facility] Comment on above: Order Comment: Name Collection Type:: Clean-Voided Midstream Performed By: #### A DDONUAPLUS, PT, PTT #### [address] Erythrocyte Sedimentation Ra roosevelt 04-06-2019 ESR (Bld) [Velocity] 23 mm/h Normal 0-30 [facility] Comment on above: Result Comment: PERF ORMED BY: [place] [address] PATHOLOGIST [employer]PERATIONS MANAGER ROSLYN TALLEY M.D. Performed By: #### C BC, CK, CMP, CRP, T4F, TSH3, ESR #### [address] Free T4 (Free Thyroxine)on 1 Free T4 [Mass/Vol] 0.88 ng/dL Normal 0.61-1.12 [facility] Comment on above: Performed By: #### C BC, CK, CMP, CRP, T4F, TSH3, ESR #### [address] Partial Thromboplastin Timeo n 04-06-2019 aPTT Coag (Bld) [Time] 29.8 s Normal 23.0-35.0 [facility] Comment on above: Order Comment: List the anticoagulant: NONE Result Comment: PERF ORMED BY: [place] [address] PATHOLOGIST [employer]PER[employer] MANAGER ROSLYN TALLEY M.D. Performed By: #### A DDONUAPLUS, PT, PTT #### [address] Prothrombin Time INRon 10-02 -2019 INR Coag (Bld) [Relative time] 10.3 s Normal 9.0-12.9 [facility] Comment on above: Order Comment: List the anticoagulant: NONE Performed By: #### A DDONUAPLUS, PT, PTT #### [facility] [place] [facility] [address] [id number] [facility] INR Coag (PPP) [Relative time] 0.9 {INR} Normal [facility] Comment on above: Order Comment: List [...] By: #### A DDONUAPLUS, PT, PTT #### [address] Thyroid Stimulating Hormoneo n 04-06-2019 TSH Qn 2.89 u[iU]/mL Normal 0.45-5.33 [facility] Comment on above: Result Comment: PERF ORMED BY: [place] [address] PATHOLOGIST [employer] OPERATIONS MANAGER ROSLYN TALLEY M.D. Performed By: #### C BC, CK, CMP, CRP, T4F, TSH3, ESR #### [address] Vital Signs Date Time Vital Sign Value Performing Clinician Facility 05-05-2023 [id number] Body height 160.02 cm Casandra Chopra Other [facility] Other 05-05-2023 09:10-0400 Body mass index (BMI) [Ratio] 31.35 kg/m2 Casandra Chopra Other [facility] Other 05-05-2023 09:10-0400 Body temperature 98.9 [degF] Casandra Chopra Other [facility] Other 05-05-2023 09:10-0400 Body weight 80.29 kg Casandra Chopra Other [facility] Other 05-05-2023 09:10-0400 Diastolic blood pressure 68 mm[Hg] Casandra Xochitllaura Other [facility] Other 05-05-2023 09:10-0400 Respiratory rate 18 /min Casandra Chopra Other [facility] Other 05-05-2023 09:10-0400 SaO2% (BldA) [Mass fraction] 98 % Casandra Leunglaura Other [facility] Other 05-05-2023 09:10-0400 Systolic blood pressure 112 mm[Hg] Casandra Xochitllaura Other [facility] Other 02-23-2023 11:40-0400 Body height 160.02 cm Eva Blades Other [facility] Other 02-23-2023 11:40-0400 Body mass index (BMI) [Ratio] 31.35 kg/m2 Eva Blades Other [facility] Other 02-23-2023 11:40-0400 Body weight 80.29 kg Eva Blades Other [facility] Other 02-23-2023 11:40-0400 Diastolic blood pressure 78 mm[Hg] Eva Blades Other [facility] Other 02-23-2023 11:40-0400 Systolic blood pressure 110 mm[Hg] Eva Blades Other [facility] Other 12-29-2022 10:00-0400 Body height 160.02 cm [employer] Other [facility] Other 12-29-2022 10:00-0400 Body mass index (BMI) [Ratio] 30.82 kg/m2 [employer] Other [facility] Other 12-29-2022 10:00-0400 Body weight 78.93 kg [employer] Other [facility] Other 12-29-2022 10:00-0400 Diastolic blood pressure 68 mm[Hg] [employer] Other [facility] Other 12-29-2022 10:00-0400 Systolic blood pressure 118 mm[Hg] [employer] Other [facility] Other 10-28-2022 10:10-0400 Body height 160.02 cm Casandra Chopra Other [facility] Other 10-28-2022 10:10-0400 Body mass index (BMI) [Ratio] 31.7 kg/m2 Casandra Chopra Other [facility] Other 10-28-2022 10:10-0400 Body temperature 97.6 [degF] Casandra Chopra Other [facility] Other 10-28-2022 10:10-0400 Body weight 81.19 kg Casandra Chopra Other [facility] Other 10-28-2022 10:10-0400 Diastolic blood pressure 68 mm[Hg] Casandra Chopra Other [facility] Other 10-28-2022 10:10-0400 Respiratory rate 18 /min Casandra Chopra Other [facility] Other 10-28-2022 10:10-0400 SaO2% (BldA) [Mass fraction] 99 % Casandra Chopra Other [facility] Other 10-28-2022 10:10-0400 Systolic blood pressure 112 mm[Hg] Casandra Chopra Other [facility] Other 02-04-2022 15:05-0400 Blood Pressure Location [employer] [facility] [place] 02-04-2022 15:05-0400 Diastolic blood pressure 60 mm[Hg] Russell NILL [facility] [place] 02-04-2022 15:05-0400 Heart rate 72 /min Russell NILL [facility] [place] 02-04-2022 15:05-0400 Respiratory rate 16 /min Russell NILL [facility] [place] 02-04-2022 15:05-0400 Systolic blood pressure 116 mm[Hg] Russell NILL [facility] [place] 10-17-2021 09:50-0400 Body height 160.02 cm Casandra Chopra Other [facility] Other 10-17-2021 09:50-0400 Body mass index (BMI) [Ratio] 31 kg/m2 Casandra Chopra Other [facility] Other 10-17-2021 09:50-0400 Body temperature 97.8 [degF] Casandra Chopra Other [facility] Other 10-17-2021 09:50-0400 Body weight 79.38 kg Casandra Chopra Other [facility] Other 10-17-2021 09:50-0400 Diastolic blood pressure 64 mm[Hg] Casandra Chopra Other [facility] Other 10-17-2021 09:50-0400 Respiratory rate 18 /min Casandra Chopra Other [facility] Other 10-17-2021 09:50-0400 SaO2% (BldA) [Mass fraction] 97 % Casandra Chopra Other [facility] Other 10-17-2021 09:50-0400 Systolic blood pressure 102 mm[Hg] Casandra Chopra Other [facility] Other 09-04-2021 09:10-0500 Body height 160.02 cm Casandra Chopra Other [facility] Other 09-04-2021 09:10-0500 Body mass index (BMI) [Ratio] 30.11 kg/m2 Casandra Chopra Other [facility] Other 09-04-2021 09:10-0500 Body temperature 97.6 [degF] Casandra Chopra Other [facility] Other 09-04-2021 09:10-0500 Body weight 77.11 kg Casandra Chopra Other [facility] Other 09-04-2021 09:10-0500 Diastolic blood pressure 68 mm[Hg] Casandra Chopra Other [facility] Other 09-04-2021 09:10-0500 Respiratory rate 18 /min Casandra Chopra Other [facility] Other 09-04-2021 09:10-0500 SaO2% (BldA) [Mass fraction] 99 % Casandra Chopra Other [facility] Other 09-04-2021 09:10-0500 Systolic blood pressure 104 mm[Hg] Casandra Chopra Other [facility] Other 04-10-2021 10:10-0400 Body height 160.02 cm Casandra Chopra Other [facility] Other 04-10-2021 10:10-0400 Body mass index (BMI) [Ratio] 31 kg/m2 Casandra Chopra Other [facility] Other 04-10-2021 10:10-0400 Body temperature 97.4 [degF] Casandra Chopra Other [facility] Other 04-10-2021 10:10-0400 Body weight 79.38 kg Casandra Chopra Other [facility] Other 04-10-2021 10:10-0400 Diastolic blood pressure 76 mm[Hg] Casandra Chopra Other [facility] Other 04-10-2021 10:10-0400 Respiratory rate 18 /min Casandra Chopra Other [facility] Other 04-10-2021 10:10-0400 SaO2% (BldA) [Mass fraction] 99 % Casandra Chopra Other [facility] Other 04-10-2021 10:10-0400 Systolic blood pressure 118 mm[Hg] Casandra Chopra Other [facility] Other Encounters Encounter Date Encounter Type Care Provider Facility Start: 05-12-2023 End: 05-12-2023 ambulatory Casandra Chopra Other [facility] Other Start: 05-12-2023 Telephone encounter Casandra Chopra [facility] [place] Start: 05-05-2023 End: 05-05-2023 ambulatory Casandra Chopra Other [facility] Other Start: 05-05-2023 Office outpatient vi sit 25 minutes Casandra Chopra [facility] [place] Start: 05-05-2023 Telephone encounter Casandra Chopra [facility] [place] Start: 02-23-2023 End: 02-23-2023 ambulatory Eva Cortes Other [facility] Other Start: 02-23-2023 Office outpatient vi sit 15 minutes Eva Laceys [facility] Start: 02-19-2023 End: 02-19-2023 ambulatory Germaine Manuel Facility:[facility] Start: 02-19-2023 End: 02-19-2023 ambulatory DO Josiah Lizzie Work Phone: [facility] Work Phone: Start: 02-19-2023 End: 02-19-2023 Patient encounter procedure DO Josiah Samuel Work Phone: [facility] [place] [facility] [place] Work Phone: Start: 02-12-2023 End: 02-12-2023 ambulatory Casandra Chopra Other [facility] Other Start: 02-12-2023 Telephone encounter Casandra Chopra [facility] [place] Start: 02-02-2023 End: 02-02-2023 ambulatory Casandra Chopra Other [facility] Other Start: 02-02-2023 Telephone encounter Casandra Chopra [facility] [place] Start: 12-30-2022 End: 12-30-2022 ambulatory Germaine Maunel Other [facility] Other Start: 12-30-2022 Telephone encounter Germaine Mar [facility] [employer] Start: 12-29-2022 End: 12-29-2022 ambulatory Germaine Mar Other [facility] Other Start: 12-29-2022 Office outpatient ne w 45 minutes Germaine Mar [facility] Start: 12-02-2022 End: 12-03-2022 ambulatory CHRISSY VENEGAS . Facility:[facility] Start: 10-28-2022 End: 10-28-2022 ambulatory Casandra Chopra Other [facility] Other Start: 10-28-2022 Office outpatient vi sit [address] [facility] Start: 10-22-2022 End: 10-23-[address] CASANDRA CHOPRA Facility:[facility] Start: 09-15-2022 End: 09-15-2022 ambulatory Casandra Chopra Other [facility] Other Start: 09-15-2022 Telephone encounter Casandra Chopra [facility] Start: 08-18-2022 End: 08-19-[address] CASANDRA CHOPRA Facility:[facility] Start: 05-12-2022 End: 05-13-[address] CASANDRA CHOPRA Facility:[facility] Start: 05-05-2022 End: 05-05-2022 ambulatory Casandra Chopra Other [facility] Other Start: 05-05-2022 Telephone encounter Casandra Chopra [facility] Start: 05-01-2022 End: 05-02-[address] CASANDRA CHOPRA Facility:[facility] Start: 04-14-2022 End: 04-15-[address] CASANDRA CHOPRA Facility:[facility] Start: 02-19-2022 End: 02-20-[address] CASANDRA CHOPRA Facility:[facility] Start: 02-04-2022 End: 02-04-2022 Patient encounter procedure Russell HARRELL [facility] [place] Start: 12-30-2021 End: 12-31-[address] CASANDRA CHOPRA Facility:[facility] Start: 12-16-2021 End: 12-17-[address] CASANDRA CHOPRA Facility:[facility] Start: 12-03-2021 End: 12-03-2021 ambulatory Casandra Chopra Other [facility] Other Start: 12-03-2021 Telephone encounter Casandra Chopra [facility] [place] Start: 10-22-2021 End: 10-22-2021 ambulatory Casandra Chopra Other [facility] Other Start: 10-22-2021 Telephone encounter Casandra Chopra [facility] [place] Start: 10-17-2021 End: 10-17-2021 ambulatory Casandra Chopra Other [facility] Other Start: 10-17-2021 Office outpatient vi sit 25 minutes Casandra Chopra [facility] [place] Start: 10-17-2021 Telephone encounter Casandra Chopra [facility] [place] Start: 09-04-2021 End: 09-04-2021 ambulatory Casandra Chopra Other [facility] Other Start: 09-04-2021 Office outpatient vi sit 15 minutes Casandra Chopra [facility] [place] Start: 04-24-2021 Telephone encounter Casandra Chopra [facility] [place] Start: 04-10-2021 Office outpatient vi sit 15 minutes Casandra Chopra [facility] [place] Procedures Date Procedure Procedure Detail Performing Clinician Start: 02-19-2023 MR thoracic spine wo con DO Josiah Samuel Work Phone: Start: 02-19-2023 XR pre/post mri xray DO Josiah Samuel Work Phone: Start: 06-09-2018 Colonoscopy [facility] Arthroscopy of shoulder Ethan ael [...] COVID-19 Vaccine Pfizer - Documentation Purposes Only Csaandra Chopra Other [facility] Other 04-10-2021 influenza, seasonal, injectable Patient Objection Casandra Chopra Other [facility] Other 03-30-2021 COVID-19 Vaccine Pfizer - Documentation Purposes Only Casandra Chopra Other [facility] Other 11-21-2016 Toradol per 15 mg Casandra Calderon in Other [facility] Other 06-02-2016 influenza, seasonal, injectable Patient Objection Casandra Chopra Other [facility] Other 06-02-2016 pneumococcal polysaccharide vaccine, 23 valent Patient Objection Casandra Chopra Other [facility] Other 03-23-2012 Kenalog 40/Xylocaine Casandra mendieta Other [facility] Other NEGATED: Highlighted row has not occurred! 1 influenza, seasonal, injectable Patient Objection Casandra Chopra Other [facility] Other NEGATED: Highlighted row has not occurred! 6 influenza, seasonal, injectable Patient Objection Casandra Chopra Other [facility] Other NEGATED: Highlighted row has not occurred! 6 pneumococcal polysaccharide vaccine, 23 valent Patient Objection Casandra Chopra Other [facility] Other Payers Date Payer Category Payer Private Health Insurance [id number] 2022 Self-pay [id number] 2019 Medicare [id number] 2.16.8 [id number] 1959 Medicare [id number] 2. [id number] 1959 Medicare [id number] 1959 Private Health Insurance [id number] 1959 Unknown [id number] 1952 Unknown [id number] 2.16.84 [id number] 1952 Unknown [id number] 2.16.84 [id number] 1952 Unknown [id number] 2.16.84 [id number] 1952 Unknown [id number] 2.16.84 [id number] 1952 Unknown [id number] 2.16.84 [id number] 1952 Unknown [id number] 2.16.84 [id number] 1952 Unknown [id number] 2.16.84 [id number] 1952 Unknown [id number] 2.16.84 [id number] 1952 Unknown [id number] 2.16.84 [id number] 1952 Unknown [id number] 2.16.84 [id number] Unknown [id number] 2.16.8 [id number] Social History Date Type Detail Facility Unknown if ever smoked [facility] Other Sex Assigned At [facility] Other Start: 02-04-2022 Tobacco smoking status Heavy t obacco smoker (finding) General Surgery [facility] Tobacco smoking status Never Gener al Surgery [facility]) Start: 1950 Sex Assigned At Female F [facility] Functional Status Date Assessment Result Facility 02-04-2022 Functional Status N/A General Gray rgery [facility] Clinical Notes 08-11-2012 to 05-05-2023 Note Date & Type Note Facility 05-05-2023 Evaluation note Encounter Date Diagnosis Assessment Notes Apr, Hematuria (ICD-10 - R31.9) [facility] Other 10-31-2023 Evaluation note* Encounter Date Diagnosis [...] with above medications as directed. Apr, Other usp (current) drug therapy (ICD-10 - Z79.899) Apr, [...] him know. She has not been mulching. [facility] Other 08-21-2023 Evaluation note* Encounter Date Diagnosis Assessment Notes Treatment Notes Treatment Clinical Notes Feb, Compression fracture of T8 vertebra with routine healing, subsequent encounter (ICD-10 - S22.060D) [facility] Other 06-26-2023 Evaluation note* Encounter Date Diagnosis [...] (ICD-10 - R26.81) Dec, Other OARRS reviewed [facility] Other 04-25-2023 Evaluation note* Encounter Date Diagnosis [...] use above medications as needed. Oct, Other usp (current) drug therapy (ICD-10 - Z79.899) Oct, Polyarthralgia (ICD-10 - M25.50) She does continue to follow with Dr. Bell and his [facility] as scheduled. Oct, COPD (chronic obstructive pulmonary [...] breaths out before she lifts anything heavy. [facility] Other 03-13-2023 Evaluation note* Encounter Date Diagnosis Assessment Notes Treatment Notes Treatment Clinical Notes Sep, Hyperlipidemia (ICD-10 - E78.5) [facility] Other 10-31-2022 Evaluation note* Encounter Date Diagnosis Assessment Notes Treatment Notes Treatment Clinical Notes Apr, Hematuria (ICD-10 - R31.9) [facility] Other 08-04-2022 NoteChief Complaint consultation for ventral hernia HPI Staff 71 year old female presents on consultation from Dr. Chopra for ventral hernia. Reports she moved [employer] two months ago. Noted epigastric lump several [...] tab(s), Oral, Daily potassium (more content not included)...[facility]:Result Comment: Electronically Signed By: SAHRRI BECKER, Russell Valverde\Date and Time Signed: 02/06/22 10:42 [id number] Evaluation note* Encounter Date Diagnosis Assessment Notes [...] with above medication as needed. Oct, Other usp (current) drug therapy (ICD-10 - Z79.899) Oct, [...] will let me know if it worsens. 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 When she was seen by Dr. Bell's [facility] her BP was 80/60 so they wanted [...] further issues. Sep, Other She has cut pj k on her smoking, it now takes her a day and a half to smoke a pack of cigarettes. She voices that Dr. Venegas knows about this but knows that she is under alot of stress right now. She anticipates that her stress is going to go down soon. [facility] Other 10-06-2021 Evaluation note* Encounter Date Diagnosis [...] with above medication as needed. 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 She will be getting her second COVID-19 vaccine on 04-20-21. [facility] Other 02-06-2013 History general Narrative - Reported* Type Description Date Medical History left shoulder & elbow problems Medical History 08/11/12 Cervical spine x-ray [facility] Medical History 10/26/14 refused colonoscopy Medical History [...] natural 05/29/19 74 Hospitalization History natural 7 [facility] Other 02-06-2013 History general Narrative - Reported* Type Description Date Medical History left shoulder & elbow problems Medical History 08/11/12 Cervical spine x-ray [facility] Medical History 10/26/14 refused colonoscopy Medical History [...] natural 05/29/19 74 Hospitalization History natural 7 [facility] Other 02-06-2013 History general Narrative - Reported* Type Description Date Medical History left shoulder & elbow problems Medical History 08/11/12 Cervical spine x-ray [facility] Medical History 10/26/14 refused colonoscopy Medical History [...] natural 05/29/19 74 Hospitalization History natural 7 [facility] Other [id number] History general Narrative - Reported* Type Description Date Medical History left shoulder & elbow problems Medical History 08/11/12 Cervical spine x-ray [facility] [place] Medical History 10/26/14 refused colonoscopy Medical History [...] natural 05/29/19 74 Hospitalization History natural 7 [facility] Other evaluation + Plan note No data available for this section [facility] [place] Evaluation noteNo InformationNort [employer] Other Evaluation noteNo assessment information available [facility] Work Phone: Hospital Discharge instructions No data available for this section General Surgery [place] Progress note No data available for this section [facility] [place] Summary Purpose Family History No Family History [...] Ear pain, left (H92. 02) Referral Organization [facility] Family Pepe Chen Referring Provider First Name Casandra Referring Provider Last Name Nav Referring Provider Specialty Family Prac amanda Referred Organization [facility] Referred Provider VaibhavjesBeth schuster Referred Address ,[place], [place],[address] Referred Provider Specialty Ear, Nose an d Throat Referral Priority Routine General Notes Eva Weaver 05/05/2023 10:59:36 AM > referral faxed thru [facility] with visit note and insurance card. pt understands she will be contacted to schedule this appt. Additional Source Comments INFORMATION SOURCE (unrecogn ized section and content) DATE CREATED AUTHOR 04/07/2019 [facility] DATE CREATED AUTHOR AUTHOR'S ORGANIZ ATION 03/01/2022 [facility] DATE CREATED AUTHOR AUTHOR'S ORGANIZ ATION 12/12/2022 [facility] DATE CREATED AUTHOR AUTHOR'S ORGANIZ ATION 02/25/2023 [facility] REASON FOR VISIT (unrecogniz ed section [...] BE BASED ON THE PRIMARY CLINICAL RECORDS. [facility] provides no warranty or guarantee of the accuracy or completeness of information in this document.
--- NOTE | 2023-12-04 07:48 | CT_ITS ---
[address] [address] Patient Name: GENNA GALVAN MRN: [id number] date: 1950 Sex: F Assigned Patient Location: CT Current Patient Location: Accession/Order Number: [id number] Exam Date: 12/04/2023 07:58 Report Date: 12/07/2023 06:39 At the request of: CHRISSY VENEGAS Procedure: CT lung screening low-dose EXAMINATION: CT lung screening low-dose HISTORY: Nicotine Dependence F17.219 COMPARISON: CT LUNG CANCER SCREENING 12/02/2022 TECHNIQUE: Axial, Coronal, and Sagittal images were created without the administration of IV contrast material. Dose reduction techniques were achieved by using automated exposure control and/or adjustment of mA and/or kV according to patient size and/or use of iterative reconstruction technique. FINDINGS: LUNGS: Stable appearance of a few small nodules scattered within the lungs, largest is still within right middle lobe, 4 mm. Soft tissue irregularity within the trachea favors mucous. Mild bronchiectasis bilaterally within lung bases. PLEURA: No mass, effusion, or pneumothorax. VASCULATURE: No abnormality. TAYO: No mass or pathologic adenopathy. MEDIASTINUM: No mass or pathologic adenopathy. CARDIAC: No enlargement, pericardial thickening, or pericardial effusion. Coronary artery calcifications: Mild. AORTA: Borderline dilation of ascending aorta, 4.0 cm. CHEST WALL: No mass or axillary adenopathy BONES: Stable moderate-marked compression fracture of T8. Mechanical fusion of lower cervical spine. LIMITED ABDOMEN: No suspicious findings. Limited images of the upper abdomen. OTHER: Negative. CT/CT lung screening low-dose IMPRESSION: 1. Lung-RADS 2- Benign Appearance or Behavior. Nodules with a very low likelihood of becoming a clinically active cancer due to size or lack of growth. Follow-up CT Chest in 1 year. 2. Stable T8 compression fracture. Electronically authenticated by: MARII TURCIOS Date: 12/07/2023 06:39
[2023-12-04] MEDS: ALBUTEROL SULFATE 2.5 MG/3 ML VIAL NEB IH (10:24)
--- NOTE | 2023-12-04 10:28 | RT_ITS ---
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 Findings were considered accurate and reproducible. Both pre- and post-bronchodilator values utilized for spirometry. Spirometry (based on pre-bronchodilator values): -FEV1/FVC: Reduced @ 68% -FEV1: Normal @ 86% -FVC: Normal @ 95% -ROW94-52%: Reduced @ 55% -There is no significant bronchodilator response. Lung volumes by plethysmography (based on pre-bronchodilator values): -RV: Normal @ 97% -TLC: Normal @ 100% Diffusion capacity: -DLCO: Severe reduction @ 49% Flow-volume loop: -Mild obstructive pattern Impressions: -Spirometry suggests mild obstruction. There is no bronchodilator response. Lung volumes are normal. There is a severely reduced diffusion capacity. Overall study compatible with COPD/emphysema, though DLCO is lower than what would be expected with the mild obstruction seen on spirometry. Clinical correlation required. Electronically Signed On 12-04-2023 12:04:56 EDT by Carlyle Copeland
== END 2023-12-04 07:37 | disposition home or self-care (01) ==
LOC: CT 07:36
PROVIDERS: PCP Family Medicine; Visit Provider Internal Medicine
DX: Z79.899 Other long term (current) drug therapy (principal); J44.9 Chronic obstructive pulmonary disease, unspecified; J84.10 Pulmonary fibrosis, unspecified; F17.219 Nicotine dependence, cigarettes, with unspecified nicotine-induced disorders
CPT/HCPCS: 36415; 71271; 85025; 94060; 94726; 94729; 99406

== ENCOUNTER 2024-01-04 08:41 | Outpatient (OUT) | payer MEDICARE, SELFPAY ==
--- NOTE | 2024-01-04 08:47 | XR_ITS ---
The [address] [address] Patient Name: GENNA GALVAN MRN: [id number] date: 1950 Sex: F Assigned Patient Location: [facility] Current Patient Location: [facility] Accession/Order Number: [id number] Exam Date: 01/04/2024 09:00 Report Date: 01/04/2024 10:23 At the request of: ANNELIESE BELL Procedure: XR DEXA axial skeleton EXAMINATION: XR DEXA axial skeleton HISTORY: Osteoporosis, High Risk Medication COMPARISON: DEXA bone densitometry 12/30/2021 TECHNIQUE: Dual-energy X-ray absorptiometry (DXA) was performed. FINDINGS: SPINE ANALYSIS: Average bone mineral density is 1.277 g/cm2. T-score (standard deviation relative to young adult mean): 0.8 . +3.8% change since prior study. HIP ANALYSIS: Lowest bone mineral density is within the right femoral neck, 0.741 g/cm2. T-score (standard deviation relative to young adult mean): -2.1 . +4.9% change since prior study. XR/XR DEXA axial skeleton IMPRESSION: World Health Organization Classification: Osteopenia - Moderate Fracture Risk FRAX: Cannot be calculated. Pharmacologic treatment recommendations * No uniform recommendation applies to all patients. Management plans must be individualized. * Consider initiating pharmacologic treatment in postmenopausal women and men >= 50 years of age who have the following: Primary fracture prevention: * T-score <= - 2.5 at the femoral neck, total hip, lumbar spine, 33% radius (some uncertainty with existing data) by DXA. * Low bone mass (osteopenia: T-score between - 1.0 and - 2.5) at the femoral neck or total hip by DXA with a 10-year hip fracture risk >= 3% or a 10-year major osteoporosis-related fracture risk >= 20% (i.e., clinical vertebral, hip, forearm, or proximal humerus) based on the [place]-adapted FRAXregistered model. Secondary fracture prevention: * Fracture of the hip or vertebra regardless of BMD [4, 5]. * Fracture of proximal humerus, pelvis, or distal forearm in persons with low bone mass (osteopenia: T-score between - 1.0 and - 2.5). The decision to treat should be individualized in persons with a fracture of the proximal humerus, pelvis, or distal forearm who do not have osteopenia or low BMD [12, 13]. Shyam MS, Ashley SL, Nathalie KL, Yady EM, Escobar KG, AJ, Priya ES. The clinician's guide to prevention and treatment of osteoporosis. Osteoporos Int. 2021;33(10):3210-6757. doi: 10.1007/c23836-567-33362-x. Epub 2021Oct 31. Erratum in: Osteoporos Int. 2021Jan 30;: PMID: [id number]; PMCID: [id number]. Electronically authenticated by: MARII TURCIOS Date: 01/04/2024 10:23
== END 2024-01-04 08:42 | disposition home or self-care (01) ==
LOC: RAD 08:41
PROVIDERS: PCP Family Medicine; Visit Provider Internal Medicine Rheumatology
DX: M81.0 Age-related osteoporosis without current pathological fracture (principal); Z51.81 Encounter for therapeutic drug level monitoring; Z79.899 Other long term (current) drug therapy; M85.80 Other specified disorders of bone density and structure, unspecified site
CPT/HCPCS: 77080

== ENCOUNTER 2024-01-25 07:47 | Outpatient (OUT) | payer MEDICARE, SELFPAY ==
[2024-01-25 08:23] LABS: Basophils Absolute Auto 0.1 10^3/uL (0.0-0.1); Basophils Percent Auto 1.5 % (0.2-2.0); Eosinophils Absolute Auto 0.1 10^3/uL (0.0-0.7); Eosinophils Percent Auto 1.7 % (0.9-7.0); Hematocrit 40.6 % (36.0-48.0); Hemoglobin 12.9 g/dL (12.0-16.0); Immature Granulocytes Abs Auto 0.02 10^3/uL (0.00-0.03); Immature Granulocytes Pct Auto 0.3 % (0.0-0.5); Lymphocytes Absolute Auto 1.3 10^3/uL (1.2-3.8); Lymphocytes Percent Auto 21.3 % (20.5-60.0); Mean Corpuscular HGB Conc 31.8 g/dL (29.9-35.2); Mean Corpuscular Hemoglobin 30.5 pg (26.7-34.0); Mean Platelet Volume 9.2 fL (9.5-13.5); Monocytes Absolute Auto 0.6 10^3/uL (0.3-0.8); Monocytes Percent Auto 9.3 % (1.7-12.0); Neutrophils Absolute Auto 3.9 10^3/uL (1.4-6.5); Neutrophils Percent Auto 65.9 % (43.0-75.0); Platelet Count 208 10^3/uL (150-450); Red Blood Count 4.23 10^6/uL (4.20-5.40); Red Cell Distribution Width 13.4 % (11.0-15.0); White Blood Count 5.9 10^3/uL (4.0-11.0)
[2024-01-25 08:32] LABS: Erythrocyte Sedimentation Rate 72 mm/hr (<=30)
[2024-01-25 08:37] LABS: Bilirubin Urine MODERATE (NEGATIVE); Blood Urine NEGATIVE (NEGATIVE); Clarity Urine CLOUDY (CLEAR); Color Urine LT. YELLOW (YELLOW); Glucose Urine UA NEGATIVE (NEGATIVE); Ketones Urine NEGATIVE (NEGATIVE); Leukocyte Esterase Urine LARGE (NEGATIVE); Nitrite Urine NEGATIVE (NEGATIVE); Protein Urine NEGATIVE (NEG/TRACE); Specific Gravity Urine 1.015 (1.005-1.025); Urobilinogen Urine 0.2 EU/dL (0.2-1.0)
[2024-01-25 08:58] LABS: Alanine Aminotransferase 24 U/L (14-59); Albumin Globulin Ratio 1.1; Albumin Level 3.8 g/dL (3.4-5.0); Alkaline Phosphatase 43 U/L (46-116); Anion Gap 11.6; Aspartate Amino Transferase 20 U/L (15-37); BUN Creatinine Ratio 21.8; Bilirubin Total 0.5 mg/dL (0.2-1.0); Carbon Dioxide 28.8 mmol/L (21.0-32.0); Chloride 103 mmol/L (98-107); Estimated GFR (African America >60 (>=60); Estimated GFR (Non-African Ame >60 (>=60); Globulin 3.5 g/dL; Glucose 91 mg/dL (74-106); Potassium 4.4 mmol/L (3.5-5.1); Sodium 139 mmol/L (136-145); Total Protein 7.3 g/dL (6.4-8.2)
[2024-01-25 10:30] LABS: Bacteria Urine LARGE #/HPF (NONE SEEN); Cast Seen? NONE SEEN #/LPF (NONE SEEN); Crystals Seen? None Seen #/HPF (None Seen); Mucus Urine NONE SEEN (NONE SEEN); RBC Urine 0-2 #/HPF (0-2); Squamous Epithelial Cell Urine MANY #/LPF (NONE/RARE); Transitional Epi Cells Urine FEW #/LPF (NONE SEEN); WBC Urine 75-100 #/HPF (NONE SEEN)
[2024-01-26 05:07] LABS: Complement C3, Serum 133 mg/dL (82-167); Complement C4, Serum 22 mg/dL (12-38)
[2024-01-26 16:10] LABS: Complement, Total (CH50) >60 U/mL (>41)
== END 2024-01-25 07:48 | disposition home or self-care (01) ==
LOC: LAB 07:48
PROVIDERS: PCP Family Medicine; Visit Provider Internal Medicine Rheumatology
DX: M35.1 Other overlap syndromes (principal); M15.0 Primary generalized (osteo)arthritis; Z79.899 Other long term (current) drug therapy
CPT/HCPCS: 36415; 80053; 81001; 85025; 85652; 86160; 86162

== ENCOUNTER 2024-02-10 08:23 | Outpatient (OUT) | payer MEDICARE, SELFPAY ==
--- OUTSIDE RECORDS SUMMARY | 2024-02-10 08:31 | XMS_ITS | CCD ---
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 Name Role Phone Casandra Chopra Unavailable Casandra [...] Primary Care Provider PITO Manuel Attending Provider Eva Cortes Unavailable Germaine Manuel Attending Unavailable Germaine Manuel Admitting Unavailable Josiah Samuel Primary Care Unavailable Allergies Allergy Classification Reported Allergen(s) Allergy Type Date of Onset Reaction(s) Facility (20 sources) buPROPion; Translations: [Bupropion] Drug Allergy Anxiety (finding) MessageMe Other (19 sources) traMADol Drug Allergy constipation MessageMe Other (1 source) Acetaminophen / HYDROcodone Drug Allergy [facility] Repository Medications Current Medications Medication Drug Class(es) Dates Sig (Normalized) Sig (Original) 8 hr acetaminophen 650 mg extended release oral tablet (16 sources) take 2 tablets by mouth every eight hours as needed Tylenol 8 Hour Arthritis Pain 650 MG 2 tablets as needed Orally every 8 hrs Active [id number] 200 actuat albuterol 0.09 mg/actuat metered dose [...] oral capsule (3 sources) Cephalosporin Antibacterial Start: 07-31-2023 take 1 capsule by mouth every eight [...] spray(s) nasal route twic e daily Ipratropium [place] 0.03 % 2 sprays in each nostril [...] 2 Chronic Other aftercare (5 sources) Other fpc (current) drug therapy; Translations: [Other fpc (current) drug therapy Z79.899] Onset: 1 Resolved: [...] mri xrayon 02-19 XR pre/post mri xray [facility] Main [address] [address] MRI Report Signed Patient: Genna Herrera MR#: [id number] 52 : 1950 Acct:[id number] Age/Sex: 72 / F ADM Date: 02/19/23 Loc: MR Room: Type: REG CLI Attending Dr: Germaine SHELDON Copies to: PITO Toure Ordering Provider: PITO Toure Date of Service: 02/19/23 MR/MR thoracic spine wo con: S22.060a ([id number]) XR/XR pre/post mri xray: S22.060a MR thoracic [...] David Corley M.D.02/19/2023 8:19 PM Dictation Location: [place] [address] Transcribed By: [facility] 02/19/232018 Dictated By: David Corley II, MD 02/19/232008 Signed By: 02/19/232018 [facility] CT LUNG CANCER SCREENINGon 0 12-03-2022 [...] MARII TURCIOS Date: 2022-12-03 08:20 Normal [facility] CBC AUTO DIFFon 10-22-2022 BASO # 0.1 103/ul Normal 0.0-0.1 [facility] Comment on above: Performed By: #### C BC #### [facility] [address] [place] [address] Dr. Renato Weller Basophils/100 WBC (Bld) 1.5 % Normal 0.2-2.0 [facility] Comment on above: Performed By: #### C BC #### [facility] [address] [place] [address] Dr. Renato Weller EO # 0.1 103/ul Normal 0.0-0.7 [facility] Comment on above: Performed By: #### C BC #### [facility] [address] [place] [address] Dr. Renato Weller Eosinophils/100 WBC (Bld) 1.4 % Normal 0.9-7.0 [facility] Comment on above: Performed By: #### C BC #### [facility] [address] [place] [address] Dr. Renato Weller Erythrocyte distribution width (RBC) [Ratio] 13.4 % Normal 11.0-15.0 [facility] Comment on above: Performed By: #### C BC #### [facility] [address] [place] [address] Dr. Renato Weller Hematocrit (Bld) [Volume fraction] 40.8 % Normal 36.0-48.0 [facility] Comment on above: Performed By: #### C BC #### [facility] [address] [place] [address] Dr. Renato Weller Hemoglobin (Bld) [Mass/Vol] 12.9 g/dL Normal 12.0-16.0 [facility] Comment on above: Performed By: #### C BC #### [facility] [address] [place] [address] Dr. Renato Weller IG # 0.01 10e3/ul Normal 0.00-0.03 [facility] Comment on above: Performed By: #### C BC #### [facility] [address] [place] [address] Dr. Renato Weller IG % 0.2 % Normal 0.0-0.5 [facility] Comment on above: Performed By: #### C BC #### [facility] [address] [place] [address] Dr. Renato Weller LYMPH # 1.0 103/ul Critically low 1.2-3.8 [facility] Comment on above: Performed By: #### C BC #### [facility] [address] [place] [address] Dr. Renato Weller Lymphocytes/100 WBC (Bld) 16.2 % Critically low 20.5-60.0 [facility] Comment on above: Performed By: #### C BC #### [facility] [address] [place] [address] Dr. Renato Weller MANUAL DIFF REQ NO Normal [facility] Comment on above: Performed By: #### C BC #### [facility] [address] [place] [address] Dr. Renato Weller MCH (RBC) [Entitic mass] 30.2 pg Normal 26.7-34.0 [facility] Comment on above: Performed By: #### C BC #### [facility] [address] [place] [address] Dr. Renato Weller MCHC (RBC) [Mass/Vol] 31.6 g/dL Normal 29.9-35.2 [facility] Comment on above: Performed By: #### C BC #### [facility] [address] [place] [address] Dr. Renato Weller MCV (RBC) [Entitic vol] 95.6 fL Normal 81.0-99.0 [facility] Comment on above: Performed By: #### C BC #### [facility] [address] [place] [address] Dr. Renato Weller MONO # 0.5 103/ul Normal 0.3-0.8 [facility] Comment on above: Performed By: #### C BC #### [facility] [address] [place] [address] Dr. Renato Weller Monocytes/100 WBC (Bld) 8.2 % Normal 1.7-12.0 [facility] Comment on above: Performed By: #### C BC #### [facility] [address] [place] [address] Dr. Renato Weller NEUT # 4.3 103/ul Normal 1.4-6.5 [facility] Comment on above: Performed By: #### C BC #### [facility] [address] [place] [address] Dr. Renato Weller Neutrophils/100 WBC (Bld) 72.5 % Normal 43.0-75.0 [facility] Comment on above: Performed By: #### C BC #### [facility] [address] [place] [address] Dr. Renato Weller Platelet mean volume (Bld) [Entitic vol] 9.4 fL Critically low 9.5-13.5 [facility] Comment on above: Performed By: #### C BC #### [facility] [address] [place] [address] Dr. Renato Weller PLT 206 103/ul Normal 150-450 [facility] Comment on above: Performed By: #### C BC #### [facility] [address] [place] [address] Dr. Renato Weller RBC 4.27 106/ul Normal 4.20-5.40 [facility] Comment on above: Performed By: #### C BC #### [facility] [address] [place] [address] Dr. Renato Weller WBC 5.9 103/ul Normal 4.0-11.0 [facility] Comment on above: Performed By: #### C BC #### [facility] [address] [place] [address] [address] Renato Weller LIPID PROFILEon 10-22-2022 CHOL-HDL RATIO NORM SEE BELOW Normal [facility] Comment on above: Result Comment: 3.3 - 4.4 LOW RISK 4.4 - 7.1 AVERAGE RISK 7.1 - 11.0 MODERATE RISK >11.0 HIGH RISK Performed By: #### L IPID, CMP #### [facility] [address] [place] [address] [address] Renato Weller Cholesterol [Mass/Vol] 162 mg/dL Normal <=200 [facility] Comment on above: Performed By: #### L IPID, CMP #### [facility] [address] [place] [address] [address] Renato Weller Cholesterol in HDL [Mass/Vol] 69 mg/dL Critically high 40-60 [facility] Comment on above: Performed By: #### L IPID, CMP #### [facility] [address] [place] [address] [address] Renato Weller Cholesterol in LDL [Mass/Vol] 81.8 mg/dL Normal [facility] Comment on above: Performed By: #### L IPID, CMP #### [facility] [address] [address] [address] Renato Weller Cholesterol.total/C holesterol in HDL [Mass ratio] 2.3 {ratio} Normal [facility] Comment on above: Performed By: #### L IPID, CMP #### [facility] [address] [place] [address] [address] Renato Weller HDL NORMAL > or = 60 mg/dl - LO W CARDIOVASCULAR RISK <40 mg/dl - HIGH CARDIOVASCULAR RISK Normal [facility] Comment on above: Performed By: #### L IPID, CMP #### [facility] [address] [place] [address] [address] Renato Weller LDL CALC NORMAL SEE BELOW Normal [facility] Comment on above: Result Comment: <100 mg/dl OPTIMAL 100 - 129 mg/dl NEAR OR ABOVE OPTIMAL 130 - 159 mg/dl BORDERLINE HIGH 160 - 189 mg/dl HIGH >190 mg/dl VERY HIGH Performed By: #### L IPID, CMP #### [facility] [address] [place] [address] Dr. Renato Weller Triglyceride [Mass/Vol] 56 mg/dL Normal <=150 [facility] Comment on above: Performed By: #### L IPID, CMP #### [facility] [address] [place] [address] Dr. Renato Weller VLDL CALC 11.2 mg/dL Normal [facility] Comment on above: Performed By: #### L IPID, CMP #### [facility] [address] [place] [address] Dr. Renato Weller PROF 14(COMP METB)on 023 Albumin [Mass/Vol] 3.7 g/dL Normal 3.4-5.0 [facility] Comment on above: Performed By: #### L IPID, CMP #### [facility] [address] [place] [address] Dr. Renato Weller Albumin/Globulin [Mass ratio] 1.1 {ratio} Normal [facility] Comment on above: Performed By: #### L IPID, CMP #### [facility] [address] [place] [address] Dr. Renato Weller ALP [Catalytic activity/Vol] 36 U/L Critically low 46-116 [facility] Comment on above: Performed By: #### L IPID, CMP #### [facility] [address] [place] [address] Dr. Renato Weller ALT [Catalytic activity/Vol] 24 U/L Normal 14-59 [facility] Comment on above: Performed By: #### L IPID, CMP #### [facility] [address] [place] [address] Dr. Renato Weller Anion gap [Moles/Vol] 12.2 mmol/L Normal [facility] Comment on above: Performed By: #### L IPID, CMP #### [facility] [address] [place] [address] Dr. Renato Weller AST [Catalytic activity/Vol] 18 U/L Normal 15-37 [facility] Comment on above: Performed By: #### L IPID, CMP #### [facility] [address] [place] [address] Dr. Renato Weller Bilirubin [Mass/Vol] 0.3 mg/dL Normal 0.2-1.0 [facility] Comment on above: Performed By: #### L IPID, CMP #### [facility] [address] [place] [address] Dr. Renato Weller Calcium [Mass/Vol] 9.0 mg/dL Normal 8.5-10.1 [facility] Comment on above: Performed By: #### L IPID, CMP #### [facility] [address] [place] [address] Dr. Renato Weller Chloride [Moles/Vol] 102 mmol/L Normal 98-107 [facility] Comment on above: Performed By: #### L IPID, CMP #### [facility] [address] [place] [address] Dr. Renato Weller CO2 [Moles/Vol] 29.1 mmol/L Normal 21.0-32.0 [facility] Comment on above: Performed By: #### L IPID, CMP #### [facility] [address] [place] [address] Dr. Renato Weller Creatinine [Mass/Vol] 0.83 mg/dL Normal 0.55-1.02 [facility] Comment on above: Performed By: #### L IPID, CMP #### [facility] [address] [place] [address] Dr. Renato Weller EGFR-AF INDIAN >60 Normal >=60 [facility] Comment on above: Performed By: #### L IPID, CMP #### [facility] [address] [place] [address] Dr. Renato Weller EGFR-NON AF INDIAN >60 Normal >=60 [facility] Comment on above: Performed By: #### L IPID, CMP #### [facility] [address] [place] [address] Dr. Renato Weller Globulin (S) [Mass/Vol] 3.5 g/dL Normal [facility] Comment on above: Performed By: #### L IPID, CMP #### [facility] [address] [place] [address] Dr. Renato Weller Glucose [Mass/Vol] 85 mg/dL Normal 74-106 [facility] Comment on above: Performed By: #### L IPID, CMP #### [facility] [address] [place] [address] Dr. Renato Weller Potassium [Moles/Vol] 4.3 mmol/L Normal 3.5-5.1 [facility] Comment on above: Performed By: #### L IPID, CMP #### [facility] [address] [place] [address] Dr. Renato Weller Protein [Mass/Vol] 7.2 g/dL Normal 6.4-8.2 [facility] Comment on above: Performed By: #### L IPID, CMP #### [facility] [address] [place] [address] Dr. Renato Weller Sodium [Moles/Vol] 139 mmol/L Normal 136-145 [facility] Comment on above: Performed By: #### L IPID, CMP #### [facility] [address] [place] [address] Dr. Renato Weller Urea nitrogen [Mass/Vol] 14.0 mg/dL Normal 7.0-18.0 [facility] Comment on above: Performed By: #### L IPID, CMP #### [facility] [address] [place] [address] Dr. Renato Weller Urea nitrogen/Creatinine [Mass ratio] 16.9 mg/mg Normal [facility] Comment on above: Performed By: #### L IPID, CMP #### [facility] [address] [place] [address] Dr. Renato Weller C3 and C4 COMPLEMENTon 08-19 Complement C3, Serum 110 mg/dL Normal 82-167 [facility] Comment on above: Performed By: #### U AMIC #### [facility] [address] [place] [address] Dr. Renato Weller Complement C4, Serum 20 mg/dL Normal 12-38 [facility] Comment on above: Performed By: #### U AMIC #### [facility] [address] [place] [address] [address] Renato Weller COMPLEMENT TOTAL (CH50)on Complement, Total (CH50) >60 Normal >41 [facility] Comment on above: Result Comment: Age Male [...] values. Performed By: #### C H50T #### [facility] [address] [place] [address] Dr. Renato Weller CBC AUTO DIFFon 08-18-2022 BASO # 0.1 103/ul Normal 0.0-0.1 [facility] Comment on above: Performed By: #### C H50T #### [facility] [address] [address] [address] Renato Weller Basophils/100 WBC (Bld) 1.8 % Normal 0.2-2.0 [facility] Comment on above: Performed By: #### C H50T #### [facility] [address] [address] [address] Renato Weller EO # 0.1 103/ul Normal 0.0-0.7 [facility] Comment on above: Performed By: #### C H50T #### [facility] [address] [address] [address] Renato Weller Eosinophils/100 WBC (Bld) 1.8 % Normal 0.9-7.0 [facility] Comment on above: Performed By: #### C H50T #### [facility] [address] [place] [address] Dr. Renato Weller Erythrocyte distribution width (RBC) [Ratio] 13.2 % Normal 11.0-15.0 [facility] Comment on above: Performed By: #### C H50T #### [facility] [address] [place] [address] Dr. Renato Weller Hematocrit (Bld) [Volume fraction] 39.9 % Normal 36.0-48.0 [facility] Comment on above: Performed By: #### C H50T #### [facility] [address] [place] [address] Dr. Renato Weller Hemoglobin (Bld) [Mass/Vol] 13.2 g/dL Normal 12.0-16.0 [facility] Comment on above: Performed By: #### C H50T #### [facility] [address] [place] [address] Dr. Renato Weller IG # 0.02 10e3/ul Normal 0.00-0.03 [facility] Comment on above: Performed By: #### C H50T #### [facility] [address] [place] [address] Dr. Renato Weller IG % 0.4 % Normal 0.0-0.5 [facility] Comment on above: Performed By: #### C H50T #### [facility] [address] [place] [address] Dr. Renato Weller LYMPH # 1.1 103/ul Critically low 1.2-3.8 [facility] Comment on above: Performed By: #### C H50T #### [facility] [address] [place] [address] Dr. Renato Weller Lymphocytes/100 WBC (Bld) 18.4 % Critically low 20.5-60.0 [facility] Comment on above: Performed By: #### C H50T #### [facility] [address] [place] [address] Dr. Renato Weller MANUAL DIFF REQ NO Normal [facility] Comment on above: Performed By: #### C H50T #### [facility] [address] [place] [address] Dr. Renato Weller MCH (RBC) [Entitic mass] 31.0 pg Normal 26.7-34.0 [facility] Comment on above: Performed By: #### C H50T #### [facility] [address] [place] [address] Dr. Renato Weller MCHC (RBC) [Mass/Vol] 33.1 g/dL Normal 29.9-35.2 [facility] Comment on above: Performed By: #### C H50T #### [facility] [address] [place] [address] Dr. Renato Weller MCV (RBC) [Entitic vol] 93.7 fL Normal 81.0-99.0 [facility] Comment on above: Performed By: #### C H50T #### [facility] [address] [place] [address] Dr. Renato Weller MONO # 0.5 103/ul Normal 0.3-0.8 [facility] Comment on above: Performed By: #### C H50T #### [facility] [address] [place] [address] Dr. Renato Weller Monocytes/100 WBC (Bld) 8.6 % Normal 1.7-12.0 [facility] Comment on above: Performed By: #### C H50T #### [facility] [address] [place] [address] Dr. Renato Weller NEUT # 3.9 103/ul Normal 1.4-6.5 [facility] Comment on above: Performed By: #### C H50T #### [facility] [address] [place] [address] Dr. Renato Weller Neutrophils/100 WBC (Bld) 69.0 % Normal 43.0-75.0 [facility] Comment on above: Performed By: #### C H50T #### [facility] [address] [place] [address] Dr. Renato Weller Platelet mean volume (Bld) [Entitic vol] 9.4 fL Critically low 9.5-13.5 [facility] Comment on above: Performed By: #### C H50T #### [facility] [address] [address] [address] Renato Weller PLT 191 103/ul Normal 150-450 [facility] Comment on above: Performed By: #### C H50T #### [facility] [address] [place] [address] Dr. Renato Weller RBC 4.26 106/ul Normal 4.20-5.40 [facility] Comment on above: Performed By: #### C H50T #### [facility] [address] [place] [address] Dr. Renato Weller WBC 5.7 103/ul Normal 4.0-11.0 [facility] Comment on above: Performed By: #### C H50T #### [facility] [address] [place] [address] Dr. Renato Weller MAGNESIUMon 08-18-2022 Magnesium [Mass/Vol] 2.1 mg/dL Normal 1.8-2.4 [facility] Comment on above: Performed By: #### L IPID, CMP #### [facility] [address] [place] [address] Dr. Renato Weller PHOSPHORUSon 08-18-2022 Phosphate [Mass/Vol] 3.5 mg/dL Normal 2.6-4.7 [facility] Comment on above: Performed By: #### L IPID, CMP #### [facility] [address] [place] [address] Dr. Renato Weller PROF 14(COMP METB)on 023 Albumin [Mass/Vol] 3.7 g/dL Normal 3.4-5.0 [facility] Comment on above: Performed By: #### L IPID, CMP #### [facility] [address] [place] [address] Dr. Renato Weller Albumin/Globulin [Mass ratio] 1.2 {ratio} Normal [facility] Comment on above: Performed By: #### L IPID, CMP #### [facility] [address] [place] [address] Dr. Renato Weller ALP [Catalytic activity/Vol] 37 U/L Critically low 46-116 [facility] Comment on above: Performed By: #### L IPID, CMP #### [facility] [address] [address] [address] Renato Weller ALT [Catalytic activity/Vol] 18 U/L Normal 14-59 [facility] Comment on above: Performed By: #### L IPID, CMP #### [facility] [address] [address] [address] Renato Weller Anion gap [Moles/Vol] 13.5 mmol/L Normal [facility] Comment on above: Performed By: #### L IPID, CMP #### [facility] [address] [address] [address] Renato Weller AST [Catalytic activity/Vol] 19 U/L Normal 15-37 [facility] Comment on above: Performed By: #### L IPID, CMP #### [facility] [address] [address] [address] Renato Weller Bilirubin [Mass/Vol] 0.4 mg/dL Normal 0.2-1.0 [facility] Comment on above: Performed By: #### L IPID, CMP #### [facility] [address] [address] [address] Renato Weller Calcium [Mass/Vol] 8.7 mg/dL Normal 8.5-10.1 [facility] Comment on above: Performed By: #### L IPID, CMP #### [facility] [address] [address] [address] Renato Weller Chloride [Moles/Vol] 104 mmol/L Normal 98-107 [facility] Comment on above: Performed By: #### L IPID, CMP #### [facility] [address] [address] [address] Renato Weller CO2 [Moles/Vol] 27.8 mmol/L Normal 21.0-32.0 [facility] Comment on above: Performed By: #### L IPID, CMP #### [facility] [address] [address] [address] Renato Weller Creatinine [Mass/Vol] 0.67 mg/dL Normal 0.55-1.02 [facility] Comment on above: Performed By: #### L IPID, CMP #### [facility] [address] [address] [address] Renato Weller EGFR-AF INDIAN >60 Normal >=60 [facility] Comment on above: Performed By: #### L IPID, CMP #### [facility] [address] [address] [address] Renato Weller EGFR-NON AF INDIAN >60 Normal >=60 [facility] Comment on above: Performed By: #### L IPID, CMP #### [facility] [address] [address] [address] Renato Weller Globulin (S) [Mass/Vol] 3.0 g/dL Normal [facility] Comment on above: Performed By: #### L IPID, CMP #### [facility] [address] [address] [address] Renato Weller Glucose [Mass/Vol] 87 mg/dL Normal 74-106 [facility] Comment on above: Performed By: #### L IPID, CMP #### [facility] [address] [address] [address] Renato Weller Potassium [Moles/Vol] 4.3 mmol/L Normal 3.5-5.1 [facility] Comment on above: Performed By: #### L IPID, CMP #### [facility] [address] [address] [address] Renato Weller Protein [Mass/Vol] 6.7 g/dL Normal 6.4-8.2 [facility] Comment on above: Performed By: #### L IPID, CMP #### [facility] [address] [address] [address] Renato Weller Sodium [Moles/Vol] 141 mmol/L Normal 136-145 [facility] Comment on above: Performed By: #### L IPID, CMP #### [facility] [address] [address] [address] Renato Weller Urea nitrogen [Mass/Vol] 11.0 mg/dL Normal 7.0-18.0 [facility] Comment on above: Performed By: #### L IPID, CMP #### [facility] [address] [place] [address] Dr. Renato Weller Urea nitrogen/Creatinine [Mass ratio] 16.4 mg/mg Normal [facility] Comment on above: Performed By: #### L IPID, CMP #### [facility] [address] [place] [address] Dr. Renato Well[facility] 43 mm/hr Critically high <=30 [facility] Comment on above: Performed By: #### S EDR #### [facility] [address] [place] [address] Dr. Renato Weller UA RANDOM W/MICROSCOPICon BACTERIA NONE SEEN Normal NONE SEEN [facility] Comment on above: Performed By: #### U AMIC #### [facility] [address] [place] [address] Dr. Renato Weller Bilirubin Ql (U) LARGE Abnormal NEGATIVE [facility] Comment on above: Performed By: #### U AMIC #### [facility] [address] [place] [address] Dr. Renato Weller CAST NONE SEEN Normal NONE SEEN [facility] Comment on above: Performed By: #### U AMIC #### [facility] [address] [place] [address] Dr. Renato Weller Clarity (U) CLEAR Normal CLEAR [facility] Comment on above: Performed By: #### U AMIC #### [facility] [address] [place] [address] Dr. Renato Weller Color (U) LT. YELLOW Normal YELLOW [facility] Comment on above: Performed By: #### U AMIC #### [facility] [address] [place] [address] Dr. Renato Weller Crystals LM Nom (Urine sed) NONE SEEN Normal NONE SEEN [facility] Comment on above: Performed By: #### U AMIC #### [facility] [address] [place] [address] Dr. Renato Weller Epithelial cells LM Ql (Urine sed) NONE SEEN Normal NONE SEEN /RARE [facility] Comment on above: Performed By: #### U AMIC #### [facility] [address] [address] [address] Renato Weller Glucose Ql (U) Negative Normal NEGATIVE [facility] Comment on above: Performed By: #### U AMIC #### [facility] [address] [address] [address] Renato Weller Hemoglobin Ql (U) Negative Normal NEGATIVE [facility] Comment on above: Performed By: #### U AMIC #### [facility] [address] [address] [address] Renato Weller Ketones Ql (U) Negative Normal NEGATIVE [facility] Comment on above: Performed By: #### U AMIC #### [facility] [address] [place] [address] Dr. Renato Weller LEUKOCYTES SMALL Abnormal NEGATIVE [facility] Comment on above: Performed By: #### U AMIC #### [facility] [address] [address] [address] Renato Weller MUCOUS NONE SEEN Normal NONE SEEN [facility] Comment on above: Performed By: #### U AMIC #### [facility] [address] [address] [address] Renato Weller Nitrite Ql (U) Negative Normal NEGATIVE [facility] Comment on above: Performed By: #### U AMIC #### [facility] [address] [address] [address] Renato Weller pH (U) 7.0 [pH] Normal 5-9 [facility] Comment on above: Performed By: #### U AMIC #### [facility] [address] [address] [address] Renato Weller RBC 0-2 Normal 0-2 [facility] Comment on above: Performed By: #### U AMIC #### [facility] [address] [place] [address] Dr. Renato Weller SPEC GRAVITY 1.010 Normal 1.005-<=1.025 [facility] Comment on above: Performed By: #### U AMIC #### [facility] [address] [address] [address] Renato Weller UA PROTEIN Negative Normal NEGATIVE/ TRACE [facility] Comment on above: Performed By: #### U AMIC #### [facility] [address] [address] [address] Renato Weller Urobilinogen Qn (U) 0.2 {Paul'U}/dL Normal 0.2 - 1. 0 [facility] Comment on above: Performed By: #### U AMIC #### [facility] [address] [address] [address] Renato Weller WBC NONE SEEN Normal NONE SEEN [facility] Comment on above: Performed By: #### U AMIC #### [facility] [address] [place] [address] Dr. Renato Weller CULTURE URINEon 05-12-2022 CULTURE URINE Culture Observations : LIGHT GROWTH OF MIXED GENITAL ROMEL. NO POTENTIAL PATHOGENS SEEN. Normal [facility] Comment on above: Performed By: #### U AMIC #### [facility] [address] [place] [address] Dr. Renato Weller UA RANDOM W/MICROSCOPICon BACTERIA TRACE Abnormal NONE SEEN [facility] Comment on above: Performed By: #### C H50T #### [facility] [address] [place] [address] Dr. Renato Weller Bilirubin Ql (U) LARGE Abnormal NEGATIVE [facility] Comment on above: Performed By: #### C H50T #### [facility] [address] [place] [address] Dr. Renato Weller CAST NONE SEEN Normal NONE SEEN [facility] Comment on above: Performed By: #### C H50T #### [facility] [address] [place] [address] Dr. Renato Weller Clarity (U) CLEAR Normal CLEAR [facility] Comment on above: Performed By: #### C H50T #### [facility] [address] [place] [address] Dr. Renato Weller Color (U) LT. YELLOW Normal YELLOW [facility] Comment on above: Performed By: #### C H50T #### [facility] [address] [address] [address] Renato Weller Crystals LM Nom (Urine sed) NONE SEEN Normal NONE SEEN [facility] Comment on above: Performed By: #### C H50T #### [facility] [address] [address] [address] Renato Weller Epithelial cells LM Ql (Urine sed) MODERATE Abnormal NONE SEEN /RARE [facility] Comment on above: Performed By: #### C H50T #### [facility] [address] [address] [address] Renato Weller Glucose Ql (U) Negative Normal NEGATIVE [facility] Comment on above: Performed By: #### C H50T #### [facility] [address] [place] [address] Dr. Renato Weller Hemoglobin Ql (U) Negative Normal NEGATIVE [facility] Comment on above: Performed By: #### C H50T #### [facility] [address] [place] [address] Dr. Renato Weller Ketones Ql (U) Negative Normal NEGATIVE [facility] Comment on above: Performed By: #### C H50T #### [facility] [address] [place] [address] Dr. Renato Weller LEUKOCYTES SMALL Abnormal NEGATIVE [facility] Comment on above: Performed By: #### C H50T #### [facility] [address] [address] [address] Renato Weller MUCOUS NONE SEEN Normal NONE SEEN [facility] Comment on above: Performed By: #### C H50T #### [facility] [address] [place] [address] Dr. Renato Weller Nitrite Ql (U) Negative Normal NEGATIVE [facility] Comment on above: Performed By: #### C H50T #### [facility] [address] [place] [address] Dr. Renato Weller pH (U) 6.0 [pH] Normal 5-9 [facility] Comment on above: Performed By: #### C H50T #### [facility] [address] [address] [address] Renato Weller RBC 0-2 Normal 0-2 [facility] Comment on above: Performed By: #### C H50T #### [facility] [address] [address] [address] Renato Weller SPEC GRAVITY 1.025 Normal 1.005-<=1.025 [facility] Comment on above: Performed By: #### C H50T #### [facility] [address] [place] [address] Dr. Renato Weller UA PROTEIN Negative Normal NEGATIVE/ TRACE [facility] Comment on above: Performed By: #### C H50T #### [facility] [address] [place] [address] Dr. Renato Weller Urobilinogen Qn (U) 0.2 {Paul'U}/dL Normal 0.2 - 1. 0 [facility] Comment on above: Performed By: #### C H50T #### [facility] [address] [place] [address] Dr. Renato Weller WBC 5-10 Abnormal NONE SEEN [facility] Comment on above: Performed By: #### C H50T #### [facility] [address] [place] [address] Dr. Renato Weller CULTURE URINEon 05-02-2022 CULTURE URINE Culture Observations : MODERATE GROWTH OF MIXED GENITAL ROMEL. PLEASE RESUBMIT CLEAN CATCH MID-STREAM URINE IF CLINICALLY INDICATED. Normal [facility] Comment on above: Performed By: #### U AMIC #### [facility] [address] [place] [address] Dr. Renato Weller UA RANDOM W/MICROSCOPICon BACTERIA LARGE Abnormal NONE SEEN [facility] Comment on above: Performed By: #### U AMIC #### [facility] [address] [place] [address] Dr. Renato Weller Bilirubin Ql (U) MODERATE Abnormal NEGATIVE [facility] Comment on above: Performed By: #### U AMIC #### [facility] [address] [address] [address] Renato Weller CAST NONE SEEN Normal NONE SEEN [facility] Comment on above: Performed By: #### U AMIC #### [facility] [address] [place] [address] Dr. Renato Weller Clarity (U) CLEAR Normal CLEAR [facility] Comment on above: Performed By: #### U AMIC #### [facility] [address] [address] [address] Renato Weller Color (U) LT. YELLOW Normal YELLOW [facility] Comment on above: Performed By: #### U AMIC #### [facility] [address] [place] [address] Dr. Renato Weller Crystals LM Nom (Urine sed) NONE SEEN Normal NONE SEEN [facility] Comment on above: Performed By: #### U AMIC #### [facility] [address] [place] [address] Dr. Renato Weller Epithelial cells LM Ql (Urine sed) MODERATE Abnormal NONE SEEN /RARE [facility] Comment on above: Performed By: #### U AMIC #### [facility] [address] [place] [address] Dr. Renato Weller Glucose Ql (U) Negative Normal NEGATIVE [facility] Comment on above: Performed By: #### U AMIC #### [facility] [address] [place] [address] Dr. Renato Weller Hemoglobin Ql (U) LARGE Abnormal NEGATIVE [facility] Comment on above: Performed By: #### U AMIC #### [facility] [address] [place] [address] Dr. Renato Weller Ketones Ql (U) Negative Normal NEGATIVE [facility] Comment on above: Performed By: #### U AMIC #### [facility] [address] [place] [address] Dr. Renato Weller LEUKOCYTES LARGE Abnormal NEGATIVE [facility] Comment on above: Performed By: #### U AMIC #### [facility] [address] [address] [address] Renato Weller MUCOUS NONE SEEN Normal NONE SEEN [facility] Comment on above: Performed By: #### U AMIC #### [facility] [address] [address] [address] Renato Weller Nitrite Ql (U) Negative Normal NEGATIVE [facility] Comment on above: Performed By: #### U AMIC #### [facility] [address] [address] [address] Renato Weller pH (U) 6.0 [pH] Normal 5-9 [facility] Comment on above: Performed By: #### U AMIC #### [facility] [address] [address] [address] Renato Weller RBC 5-10 Abnormal 0-2 [facility] Comment on above: Performed By: #### U AMIC #### [facility] [address] [place] [address] Dr. Renato Weller SPEC GRAVITY 1.020 Normal 1.005-<=1.025 [facility] Comment on above: Performed By: #### U AMIC #### [facility] [address] [place] [address] Dr. Renato Weller UA PROTEIN Negative Normal NEGATIVE/ TRACE [facility] Comment on above: Performed By: #### U AMIC #### [facility] [address] [place] [address] Dr. Renato Weller Urobilinogen Qn (U) 0.2 {Paul'U}/dL Normal 0.2 - 1. 0 [facility] Comment on above: Performed By: #### U AMIC #### [facility] [address] [place] [address] Dr. Renato Weller WBC 10-20 Abnormal NONE SEEN [facility] Comment on above: Performed By: #### U AMIC #### [facility] [address] [place] [address] Dr. Renato Weller XR CSPINE MIN 4 [...] CASANDRA DURAN Date: 2022-05-01 17:38 Normal [facility] C3 and C4 COMPLEMENTon 04-15 Complement C3, Serum 115 mg/dL Normal 82-167 [facility] Comment on above: Performed By: #### C H50T #### [facility] [address] [place] [address] Dr. Renato Weller Complement C4, Serum 23 mg/dL Normal 12-38 [facility] Comment on above: Performed By: #### C H50T #### [facility] [address] [place] [address] Dr. Renato Weller COMPLEMENT TOTAL (CH50)on Complement, Total (CH50) >60 Normal >41 [facility] Comment on above: Result Comment: Age Male [...] values. Performed By: #### C H50T #### [facility] [address] [place] [address] Dr. Renato Weller CBC AUTO DIFFon 04-14-2022 BASO # 0.1 103/ul Normal 0.0-0.1 [facility] Comment on above: Performed By: #### C H50T #### [facility] [address] [place] [address] Dr. Renato Weller Basophils/100 WBC (Bld) 1.6 % Normal 0.2-2.0 [facility] Comment on above: Performed By: #### C H50T #### [facility] [address] [place] [address] Dr. Renato Weller EO # 0.1 103/ul Normal 0.0-0.7 [facility] Comment on above: Performed By: #### C H50T #### [facility] [address] [place] [address] Dr. Renato Weller Eosinophils/100 WBC (Bld) 2.0 % Normal 0.9-7.0 [facility] Comment on above: Performed By: #### C H50T #### [facility] [address] [place] [address] Dr. Renato Weller Erythrocyte distribution width (RBC) [Ratio] 12.8 % Normal 11.0-15.0 [facility] Comment on above: Performed By: #### C H50T #### [facility] [address] [place] [address] Dr. Renato Weller Hematocrit (Bld) [Volume fraction] 40.0 % Normal 36.0-48.0 [facility] Comment on above: Performed By: #### C H50T #### [facility] [address] [place] [address] Dr. Renato Weller Hemoglobin (Bld) [Mass/Vol] 12.8 g/dL Normal 12.0-16.0 [facility] Comment on above: Performed By: #### C H50T #### [facility] [address] [place] [address] Dr. Renato Weller IG # 0.02 10e3/ul Normal 0.00-0.03 [facility] Comment on above: Performed By: #### C H50T #### [facility] [address] [place] [address] Dr. Renato Weller IG % 0.4 % Normal 0.0-0.5 [facility] Comment on above: Performed By: #### C H50T #### [facility] [address] [place] [address] Dr. Renato Weller LYMPH # 1.1 103/ul Critically low 1.2-3.8 [facility] Comment on above: Performed By: #### C H50T #### [facility] [address] [place] [address] Dr. Renato Weller Lymphocytes/100 WBC (Bld) 22.2 % Normal 20.5-60.0 [facility] Comment on above: Performed By: #### C H50T #### [facility] [address] [place] [address] Dr. Renato Weller MANUAL DIFF REQ NO Normal [facility] Comment on above: Performed By: #### C H50T #### [facility] [address] [place] [address] Dr. Renato Weller MCH (RBC) [Entitic mass] 31.3 pg Normal 26.7-34.0 [facility] Comment on above: Performed By: #### C H50T #### [facility] [address] [place] [address] Dr. Renato Weller MCHC (RBC) [Mass/Vol] 32.0 g/dL Normal 29.9-35.2 [facility] Comment on above: Performed By: #### C H50T #### [facility] [address] [place] [address] Dr. Renato Weller MCV (RBC) [Entitic vol] 97.8 fL Normal 81.0-99.0 [facility] Comment on above: Performed By: #### C H50T #### [facility] [address] [place] [address] Dr. Renato Weller MONO # 0.5 103/ul Normal 0.3-0.8 [facility] Comment on above: Performed By: #### C H50T #### [facility] [address] [place] [address] Dr. Renato Weller Monocytes/100 WBC (Bld) 9.8 % Normal 1.7-12.0 [facility] Comment on above: Performed By: #### C H50T #### [facility] [address] [place] [address] Dr. Renato Weller NEUT # 3.2 103/ul Normal 1.4-6.5 [facility] Comment on above: Performed By: #### C H50T #### [facility] [address] [address] [address] Renato Weller Neutrophils/100 WBC (Bld) 64.0 % Normal 43.0-75.0 [facility] Comment on above: Performed By: #### C H50T #### [facility] [address] [place] [address] Dr. Renato Weller Platelet mean volume (Bld) [Entitic vol] 9.3 fL Critically low 9.5-13.5 [facility] Comment on above: Performed By: #### C H50T #### [facility] [address] [address] [address] Renato Weller PLT 181 103/ul Normal 150-450 [facility] Comment on above: Performed By: #### C H50T #### [facility] [address] [place] [address] Dr. Renato Weller RBC 4.09 106/ul Critically low 4.20-5.40 [facility] Comment on above: Performed By: #### C H50T #### [facility] [address] [place] [address] Dr. Renato Weller WBC 5.0 103/ul Normal 4.0-11.0 [facility] Comment on above: Performed By: #### C H50T #### [facility] [address] [place] [address] Dr. Renato Weller LIPID PROFILEon 04-14-2022 CHOL-HDL RATIO NORM SEE BELOW Normal [facility] Comment on above: Result Comment: 3.3 - 4.4 LOW RISK 4.4 - 7.1 AVERAGE RISK 7.1 - 11.0 MODERATE RISK >11.0 HIGH RISK Performed By: #### T SH, LIPID #### [facility] [address] [address] [address] Renato Weller Cholesterol [Mass/Vol] 176 mg/dL Normal <=200 [facility] Comment on above: Performed By: #### T SH, LIPID #### [facility] [address] [place] [address] Dr. Renato Weller Cholesterol in HDL [Mass/Vol] 71 mg/dL Critically high 40-60 [facility] Comment on above: Performed By: #### T SH, LIPID #### [facility] [address] [address] [address] Renato Weller Cholesterol in LDL [Mass/Vol] 94.0 mg/dL Normal [facility] Comment on above: Performed By: #### T SH, LIPID #### [facility] [address] [address] [address] Renato Weller Cholesterol.total/C holesterol in HDL [Mass ratio] 2.5 {ratio} Normal [facility] Comment on above: Performed By: #### T SH, LIPID #### [facility] [address] [address] [address] Renato Weller HDL NORMAL > or = 60 mg/dl - LO W CARDIOVASCULAR RISK <40 mg/dl - HIGH CARDIOVASCULAR RISK Normal [facility] Comment on above: Performed By: #### T SH, LIPID #### [facility] [address] [place] [address] Dr. Renato Weller LDL CALC NORMAL SEE BELOW Normal [facility] Comment on above: Result Comment: <100 mg/dl OPTIMAL 100 - 129 mg/dl NEAR OR ABOVE OPTIMAL 130 - 159 mg/dl BORDERLINE HIGH 160 - 189 mg/dl HIGH >190 mg/dl VERY HIGH Performed By: #### T SH, LIPID #### [facility] [address] [address] [address] Renato Weller Triglyceride [Mass/Vol] 55 mg/dL Normal <=150 [facility] Comment on above: Performed By: #### T SH, LIPID #### [facility] [address] [place] [address] Dr. Renato Weller VLDL CALC 11.0 mg/dL Normal [facility] Comment on above: Performed By: #### T SH, LIPID #### [facility] [address] [place] [address] Dr. Renato Weller MG MAMM SCREEN 3D HERBERT CADon 04-14-2022 MG MAMM SCREEN 3D HERBERT CAD Patient: GENNA HERRERA Exam Date: 04/14/2022 : 1950 Gender:F Ordering : DR CASANDRA CHOPRA Admission #: [id number] Family : Order #: [id number] CLICK HERE TO VIEW EXAM RADIOLOGY REPORT [...] ovarian cancer at age 44. LOCATION: [facility] BREAST COMPOSITION: Scattered areas fibroglandular density. FINDINGS: [...] Duran MD on 04/14/2022 at 09:31 Normal [facility] PROF 14(COMP METB)on 022 Albumin [Mass/Vol] 3.8 g/dL Normal 3.4-5.0 [facility] Comment on above: Performed By: #### C MP #### [facility] [address] [place] [address] Dr. Renato Weller Albumin/Globulin [Mass ratio] 1.2 {ratio} Normal [facility] Comment on above: Performed By: #### C MP #### [facility] [address] [place] [address] Dr. Renato Weller ALP [Catalytic activity/Vol] 41 U/L Critically low 46-116 [facility] Comment on above: Performed By: #### C MP #### [facility] [address] [place] [address] Dr. Renato Weller ALT [Catalytic activity/Vol] 23 U/L Normal 14-59 [facility] Comment on above: Performed By: #### C MP #### [facility] [address] [place] [address] Dr. Renato Weller Anion gap [Moles/Vol] 10.0 mmol/L Normal [facility] Comment on above: Performed By: #### C MP #### [facility] [address] [address] [address] Renato Weller AST [Catalytic activity/Vol] 20 U/L Normal 15-37 [facility] Comment on above: Performed By: #### C MP #### [facility] [address] [address] [address] Renato Weller Bilirubin [Mass/Vol] 0.4 mg/dL Normal 0.2-1.0 [facility] Comment on above: Performed By: #### C MP #### [facility] [address] [address] [address] Renato Weller Calcium [Mass/Vol] 8.5 mg/dL Normal 8.5-10.1 [facility] Comment on above: Performed By: #### C MP #### [facility] [address] [address] [address] Renato Weller Chloride [Moles/Vol] 104 mmol/L Normal 98-107 [facility] Comment on above: Performed By: #### C MP #### [facility] [address] [place] [address] Dr. Renato Weller CO2 [Moles/Vol] 29.0 mmol/L Normal 21.0-32.0 [facility] Comment on above: Performed By: #### C MP #### [facility] [address] [place] [address] [address] Renato Weller Creatinine [Mass/Vol] 0.69 mg/dL Normal 0.55-1.02 [facility] Comment on above: Performed By: #### C MP #### [facility] [address] [place] [address] [address] Renato Weller EGFR-AF INDIAN >60 Normal >=60 [facility] Comment on above: Performed By: #### C MP #### [facility] [address] [place] [address] [address] Renato Weller EGFR-NON AF INDIAN >60 Normal >=60 [facility] Comment on above: Performed By: #### C MP #### [facility] [address] [place] [address] [address] Renato Weller Globulin (S) [Mass/Vol] 3.2 g/dL Normal [facility] Comment on above: Performed By: #### C MP #### [facility] [address] [place] [address] [address] Renato Weller Glucose [Mass/Vol] 84 mg/dL Normal 74-106 [facility] Comment on above: Performed By: #### C MP #### [facility] [address] [place] [address] [address] Rneato Weller Potassium [Moles/Vol] 4.0 mmol/L Normal 3.5-5.1 [facility] Comment on above: Performed By: #### C MP #### [facility] [address] [place] [address] Dr. Renato Weller Protein [Mass/Vol] 7.0 g/dL Normal 6.4-8.2 [facility] Comment on above: Performed By: #### C MP #### [facility] [address] [place] [address] [address] Renato Weller Sodium [Moles/Vol] 139 mmol/L Normal 136-145 [facility] Comment on above: Performed By: #### C MP #### [facility] [address] [place] [address] [address] Renato Weller Urea nitrogen [Mass/Vol] 16.0 mg/dL Normal 7.0-18.0 [facility] Comment on above: Performed By: #### C MP #### [facility] [address] [place] [address] [address] Renato Weller Urea nitrogen/Creatinine [Mass ratio] 23.2 mg/mg Normal [facility] Comment on above: Performed By: #### C MP #### [facility] [address] [place] [address] [address] Renato Weller SED RATE [facility] 2021 SED RATE 16 mm/hr Normal <=30 [facility] Comment on above: Performed By: #### U AMIC #### [facility] [address] [place] [address] Dr. Renato Weller TSHon 04-14-2022 TSH 3.056 uIU/mL Normal 0.358-3.[address] [facility] Comment on above: Performed By: #### T SH, LIPID #### [facility] [address] [place] [address] Dr. Renato Weller UA RANDOM W/MICROSCOPICon BACTERIA MODERATE Abnormal NONE SEEN [facility] Comment on above: Performed By: #### C H50T #### [facility] [address] [place] [address] Dr. Renato Weller Bilirubin Ql (U) LARGE Abnormal NEGATIVE [facility] Comment on above: Performed By: #### C H50T #### [facility] [address] [place] [address] Dr. Renato Weller CAST NONE SEEN Normal NONE SEEN [facility] Comment on above: Performed By: #### C H50T #### [facility] [address] [place] [address] Dr. Renato Weller Clarity (U) CLEAR Normal CLEAR [facility] Comment on above: Performed By: #### C H50T #### [facility] [address] [place] [address] Dr. Renato Weller Color (U) LT. YELLOW Normal YELLOW [facility] Comment on above: Performed By: #### C H50T #### [facility] [address] [place] [address] Dr. Renato Weller Crystals LM Nom (Urine sed) NONE SEEN Normal NONE SEEN [facility] Comment on above: Performed By: #### C H50T #### [facility] [address] [place] [address] Dr. Renato Weller Epithelial cells LM Ql (Urine sed) MANY Abnormal NONE SEEN /RARE [facility] Comment on above: Performed By: #### C H50T #### [facility] [address] [place] [address] Dr. Renato Weller Glucose Ql (U) Negative Normal NEGATIVE [facility] Comment on above: Performed By: #### C H50T #### [facility] [address] [place] [address] [address] Renato Weller Hemoglobin Ql (U) Negative Normal NEGATIVE [facility] Comment on above: Performed By: #### C H50T #### [facility] [address] [place] [address] Dr. Renato Weller Ketones Ql (U) Negative Normal NEGATIVE [facility] Comment on above: Performed By: #### C H50T #### [facility] [address] [place] [address] [address] Renato Weller LEUKOCYTES LARGE Abnormal NEGATIVE [facility] Comment on above: Performed By: #### C H50T #### [facility] [address] [place] [address] Dr. Renato Weller MUCOUS NONE SEEN Normal NONE SEEN [facility] Comment on above: Performed By: #### C H50T #### [facility] [address] [place] [address] Dr. Renato Weller Nitrite Ql (U) Negative Normal NEGATIVE [facility] Comment on above: Performed By: #### C H50T #### [facility] [address] [place] [address] Dr. Renato Weller pH (U) 6.0 [pH] Normal 5-9 [facility] Comment on above: Performed By: #### C H50T #### [facility] [address] [place] [address] Dr. Renato Weller RBC 2-5 Abnormal 0-2 [facility] Comment on above: Performed By: #### C H50T #### [facility] [address] [place] [address] [address] Renato Weller SPEC GRAVITY 1.025 Normal 1.005-<=1.025 [facility] Comment on above: Performed By: #### C H50T #### [facility] [address] [place] [address] Dr. Renato Weller UA PROTEIN Negative Normal NEGATIVE/ TRACE [facility] Comment on above: Performed By: #### C H50T #### [facility] [address] [place] [address] [address] Renato Weller Urobilinogen Qn (U) 0.2 {Paul'U}/dL Normal 0.2 - 1. 0 [facility] Comment on above: Performed By: #### C H50T #### [facility] [address] [place] [address] [address] Renato Weller WBC 10-20 Abnormal NONE SEEN [facility] Comment on above: Performed By: #### C H50T #### [facility] [address] [place] [address] [address] Renato Weller RAD - CT Reporton 02-26-2022 RAD - CT Report [id number]:[id number] Normal [facility] CT ABDOMEN WO CONTRASTon CT ABDOMEN WO [...] MARII TURCIOS Date: 2022-02-19 17:17 Normal [facility] Ambulatory Visit Summaryon 0 02-04-2022 Ambulatory Visit [...] Varicose veins of legs Ventral hernia Normal [facility] Physician Referralon 022 Physician Referral [id number]:[id number] Normal [facility] XR DEXA BONE DENSITYon 12-30 XR DEXA [...] by: CASANDRA DURAN Date: 2021-12-30 16:10 Normal [facility] C3 and C4 COMPLEMENTon 12-17 Complement C3, Serum 122 mg/dL Normal 82-167 [facility] Comment on above: Performed By: #### C SUITE #### [facility] [address] [place] [address] Dr. Renato Weller Complement C4, Serum 24 mg/dL Normal 12-38 [facility] Comment on above: Performed By: #### C SUITE #### [facility] [address] [place] [address] Dr. Renato Weller COMPLEMENT TOTAL (CH50)on Complement, Total (CH50) >60 Normal >41 [facility] Comment on above: Result Comment: Age Male [...] values. Performed By: #### C H50T #### [facility] [address] [place] [address] Dr. Renato Weller CBC AUTO DIFFon 12-16-2021 BASO # 0.1 103/ul Normal 0.0-0.1 [facility] Comment on above: Performed By: #### L IPID, CMP #### [facility] [address] [place] [address] Dr. Renato Weller Basophils/100 WBC (Bld) 1.8 % Normal 0.2-2.0 [facility] Comment on above: Performed By: #### L IPID, CMP #### [facility] [address] [place] [address] Dr. Renato Weller EO # 0.1 103/ul Normal 0.0-0.7 [facility] Comment on above: Performed By: #### L IPID, CMP #### [facility] [address] [place] [address] Dr. Renato Weller Eosinophils/100 WBC (Bld) 2.2 % Normal 0.9-7.0 [facility] Comment on above: Performed By: #### L IPID, CMP #### [facility] [address] [place] [address] Dr. Renato Weller Erythrocyte distribution width (RBC) [Ratio] 13.8 % Normal 11.0-15.0 [facility] Comment on above: Performed By: #### L IPID, CMP #### [facility] [address] [place] [address] Dr. Renato Weller Hematocrit (Bld) [Volume fraction] 39.4 % Normal 36.0-48.0 [facility] Comment on above: Performed By: #### L IPID, CMP #### [facility] [address] [place] [address] Dr. Renato Weller Hemoglobin (Bld) [Mass/Vol] 12.5 g/dL Normal 12.0-16.0 [facility] Comment on above: Performed By: #### L IPID, CMP #### [facility] [address] [place] [address] Dr. Renato Weller IG # 0.02 10e3/ul Normal 0.00-0.03 [facility] Comment on above: Performed By: #### L IPID, CMP #### [facility] [address] [place] [address] Dr. Renato Weller IG % 0.4 % Normal 0.0-0.5 [facility] Comment on above: Performed By: #### L IPID, CMP #### [facility] [address] [place] [address] Dr. Renato Weller LYMPH # 1.0 103/ul Critically low 1.2-3.8 [facility] Comment on above: Performed By: #### L IPID, CMP #### [facility] [address] [place] [address] Dr. Renato Weller Lymphocytes/100 WBC (Bld) 18.5 % Critically low 20.5-60.0 [facility] Comment on above: Performed By: #### L IPID, CMP #### [facility] [address] [place] [address] Dr. Renato Weller MANUAL DIFF REQ NO Normal [facility] Comment on above: Performed By: #### L IPID, CMP #### [facility] [address] [place] [address] [address] Renato Weller MCH (RBC) [Entitic mass] 30.8 pg Normal 26.7-34.0 [facility] Comment on above: Performed By: #### L IPID, CMP #### [facility] [address] [place] [address] Dr. Renato Weller MCHC (RBC) [Mass/Vol] 31.7 g/dL Normal 29.9-35.2 [facility] Comment on above: Performed By: #### L IPID, CMP #### [facility] [address] [place] [address] Dr. Renato Weller MCV (RBC) [Entitic vol] 97.0 fL Normal 81.0-99.0 [facility] Comment on above: Performed By: #### L IPID, CMP #### [facility] [address] [place] [address] Dr. Renato Weller MONO # 0.5 103/ul Normal 0.3-0.8 [facility] Comment on above: Performed By: #### L IPID, CMP #### [facility] [address] [place] [address] Dr. Renato Weller Monocytes/100 WBC (Bld) 9.3 % Normal 1.7-12.0 [facility] Comment on above: Performed By: #### L IPID, CMP #### [facility] [address] [place] [address] Dr. Renato Weller NEUT # 3.8 103/ul Normal 1.4-6.5 [facility] Comment on above: Performed By: #### L IPID, CMP #### [facility] [address] [place] [address] Dr. Renato Weller Neutrophils/100 WBC (Bld) 67.8 % Normal 43.0-75.0 [facility] Comment on above: Performed By: #### L IPID, CMP #### [facility] [address] [place] [address] Dr. Renato Weller Platelet mean volume (Bld) [Entitic vol] 9.1 fL Critically low 9.5-13.5 [facility] Comment on above: Performed By: #### L IPID, CMP #### [facility] [address] [place] [address] Dr. Renato Weller PLT 240 103/ul Normal 150-450 [facility] Comment on above: Performed By: #### L IPID, CMP #### [facility] [address] [place] [address] [address] Renato Weller RBC 4.06 106/ul Critically low 4.20-5.40 [facility] Comment on above: Performed By: #### L IPID, CMP #### [facility] [address] [place] [address] Dr. Renato Weller WBC 5.6 103/ul Normal 4.0-11.0 [facility] Comment on above: Performed By: #### L IPID, CMP #### [facility] [address] [place] [address] Dr. Renato Weller PROF 14(COMP METB)on 022 Albumin [Mass/Vol] 3.5 g/dL Normal 3.4-5.0 [facility] Comment on above: Performed By: #### C H50T #### [facility] [address] [place] [address] Dr. Renato Weller Albumin/Globulin [Mass ratio] 1.1 {ratio} Normal [facility] Comment on above: Performed By: #### C H50T #### [facility] [address] [place] [address] Dr. Renato Weller ALP [Catalytic activity/Vol] 51 U/L Normal 46-116 [facility] Comment on above: Performed By: #### C H50T #### [facility] [address] [place] [address] Dr. Renato Weller ALT [Catalytic activity/Vol] 22 U/L Normal 14-59 [facility] Comment on above: Performed By: #### C H50T #### [facility] [address] [place] [address] [address] Renato Weller Anion gap [Moles/Vol] 13.0 mmol/L Normal [facility] Comment on above: Performed By: #### C H50T #### [facility] [address] [place] [address] [address] Renato Weller AST [Catalytic activity/Vol] 17 U/L Normal 15-37 [facility] Comment on above: Performed By: #### C H50T #### [facility] [address] [place] [address] [address] Renato Weller Bilirubin [Mass/Vol] 0.4 mg/dL Normal 0.2-1.0 [facility] Comment on above: Performed By: #### C H50T #### [facility] [address] [place] [address] Dr. Renato Weller Calcium [Mass/Vol] 8.3 mg/dL Critically low 8.5-10.1 [facility] Comment on above: Performed By: #### C H50T #### [facility] [address] [place] [address] Dr. Renato Weller Chloride [Moles/Vol] 104 mmol/L Normal 98-107 [facility] Comment on above: Performed By: #### C H50T #### [facility] [address] [place] [address] Dr. Renato Weller CO2 [Moles/Vol] 27.4 mmol/L Normal 21.0-32.0 [facility] Comment on above: Performed By: #### C H50T #### [facility] [address] [place] [address] Dr. Renato Weller Creatinine [Mass/Vol] 0.71 mg/dL Normal 0.55-1.02 [facility] Comment on above: Performed By: #### C H50T #### [facility] [address] [place] [address] Dr. Renato Weller EGFR-AF INDIAN >60 Normal >=60 [facility] Comment on above: Performed By: #### C H50T #### [facility] [address] [place] [address] [address] Renato Weller EGFR-NON AF INDIAN >60 Normal >=60 [facility] Comment on above: Performed By: #### C H50T #### [facility] [address] [place] [address] [address] Renato Weller Globulin (S) [Mass/Vol] 3.1 g/dL Normal [facility] Comment on above: Performed By: #### C H50T #### [facility] [address] [place] [address] [address] Renato Weller Glucose [Mass/Vol] 85 mg/dL Normal 74-106 [facility] Comment on above: Performed By: #### C H50T #### [facility] [address] [place] [address] Dr. Renato Weller Potassium [Moles/Vol] 4.4 mmol/L Normal 3.5-5.1 [facility] Comment on above: Performed By: #### C H50T #### [facility] [address] [place] [address] Dr. Renato Weller Protein [Mass/Vol] 6.6 g/dL Normal 6.4-8.2 [facility] Comment on above: Performed By: #### C H50T #### [facility] [address] [place] [address] Dr. Renato Weller Sodium [Moles/Vol] 140 mmol/L Normal 136-145 [facility] Comment on above: Performed By: #### C H50T #### [facility] [address] [place] [address] Dr. Renato Weller Urea nitrogen [Mass/Vol] 14.0 mg/dL Normal 7.0-18.0 [facility] Comment on above: Performed By: #### C H50T #### [facility] [address] [place] [address] Dr. Renato Weller Urea nitrogen/Creatinine [Mass ratio] 19.7 mg/mg Normal [facility] Comment on above: Performed By: #### C H50T #### [facility] [address] [place] [address] Dr. Renato Weller SED RATE [facility] 2021 SED RATE 6 mm/hr Normal <=30 [facility] Comment on above: Performed By: #### C H50T #### [facility] [address] [place] [address] Dr. Renato Weller UA RANDOM W/MICROSCOPICon BACTERIA TRACE Abnormal NONE SEEN [facility] Comment on above: Performed By: #### C H50T #### [facility] [address] [place] [address] Dr. Renato Weller Bilirubin Ql (U) MODERATE Abnormal NEGATIVE [facility] Comment on above: Performed By: #### C H50T #### [facility] [address] [place] [address] Dr. Renato Weller CAST NONE SEEN Normal NONE SEEN [facility] Comment on above: Performed By: #### C H50T #### [facility] [address] [place] [address] Dr. Renato Weller Clarity (U) CLEAR Normal CLEAR [facility] Comment on above: Performed By: #### C H50T #### [facility] [address] [place] [address] Dr. Renato Weller Color (U) LT. YELLOW Normal YELLOW [facility] Comment on above: Performed By: #### C H50T #### [facility] [address] [place] [address] Dr. Renato Weller Crystals LM Nom (Urine sed) NONE SEEN Normal NONE SEEN [facility] Comment on above: Performed By: #### C H50T #### [facility] [address] [place] [address] Dr. Renato Weller Epithelial cells LM Ql (Urine sed) MODERATE Abnormal NONE SEEN /RARE [facility] Comment on above: Performed By: #### C H50T #### [facility] [address] [place] [address] Dr. Renato Weller Glucose Ql (U) Negative Normal NEGATIVE [facility] Comment on above: Performed By: #### C H50T #### [facility] [address] [place] [address] Dr. Renato Weller Hemoglobin Ql (U) Negative Normal NEGATIVE [facility] Comment on above: Performed By: #### C H50T #### [facility] [address] [place] [address] [address] Renato Weller Ketones Ql (U) Negative Normal NEGATIVE [facility] Comment on above: Performed By: #### C H50T #### [facility] [address] [place] [address] Dr. Renato Weller LEUKOCYTES SMALL Abnormal NEGATIVE [facility] Comment on above: Performed By: #### C H50T #### [facility] [address] [place] [address] Dr. Renato Weller MUCOUS NONE SEEN Normal NONE SEEN [facility] Comment on above: Performed By: #### C H50T #### [facility] [address] [place] [address] Dr. Renato Weller Nitrite Ql (U) Negative Normal NEGATIVE [facility] Comment on above: Performed By: #### C H50T #### [facility] [address] [place] [address] Dr. Renato Weller pH (U) 6.0 [pH] Normal 5-9 [facility] Comment on above: Performed By: #### C H50T #### [facility] [address] [place] [address] Dr. Renato Weller RBC NONE SEEN Abnormal 0-2 [facility] Comment on above: Performed By: #### C H50T #### [facility] [address] [place] [address] Dr. Renato Weller SPEC GRAVITY 1.010 Normal 1.005-<=1.025 [facility] Comment on above: Performed By: #### C H50T #### [facility] [address] [place] [address] Dr. Renato Weller UA PROTEIN Negative Normal NEGATIVE/ TRACE [facility] Comment on above: Performed By: #### C H50T #### [facility] [address] [place] [address] Dr. Renato Weller Urobilinogen Qn (U) 0.2 {Paul'U}/dL Normal 0.2 - 1. 0 [facility] Comment on above: Performed By: #### C H50T #### [facility] [address] [address] [address] Renato Weller WBC 2-5 Abnormal NONE SEEN [facility] Comment on above: Performed By: #### C H50T #### [facility] [address] [address] [address] Renato Weller C-Reactive Proteinon 019 CRP [Mass/Vol] 0.6 mg/dL Normal 0.0-1.0 [facility] Comment on above: Performed By: #### C BC, CK, CMP, CRP, T4F, TSH3, ESR #### [address] Complete Blood Count Auto Di ffon 04-06-2019 Basophils (Bld) [#/Vol] 0.1 10*3/uL Normal 0.0-0.2 [facility] Comment on above: Result Comment: PERF ORMED BY: [place] [address] PATHOLOGIST [employer] ROSLYN TALLEY M.D. Performed By: #### C BC, CK, CMP, CRP, T4F, TSH3, ESR #### [address] Basophils/100 WBC (Bld) 1.0 % Normal . [facility] Comment on above: Performed By: #### C BC, CK, CMP, CRP, T4F, TSH3, ESR #### [facility] [address] [place] [address] [place] Eosinophils (Bld) [#/Vol] 0.1 10*3/uL Normal 0.0-0.45 [facility] Comment on above: Performed By: #### C BC, CK, CMP, CRP, T4F, TSH3, ESR #### [facility] [address] [place] [address] [place] Eosinophils/100 WBC (Bld) 0.9 % Normal . [facility] Comment on above: Performed By: #### C BC, CK, CMP, CRP, T4F, TSH3, ESR #### [address] Erythrocyte distribution width (RBC) [Ratio] 14.5 % Normal 11.9-15.3 [facility] Comment on above: Performed By: #### C BC, CK, CMP, CRP, T4F, TSH3, ESR #### [address] Hematocrit (Bld) [Volume fraction] 44.9 % Normal 34.0-46.4 [facility] Comment on above: Performed By: #### C BC, CK, CMP, CRP, T4F, TSH3, ESR #### [address] Hemoglobin (Bld) [Mass/Vol] 15.2 g/dL Normal 11.8-15.4 [facility] Comment on above: Performed By: #### C BC, CK, CMP, CRP, T4F, TSH3, ESR #### [address] Lymphocytes (Bld) [#/Vol] 1.1 10*3/uL Normal 1.00-4.8 [facility] Comment on above: Performed By: #### C BC, CK, CMP, CRP, T4F, TSH3, ESR #### [address] Lymphocytes/100 WBC (Bld) 14.6 % Normal . [facility] Comment on above: Performed By: #### C BC, CK, CMP, CRP, T4F, TSH3, ESR #### [address] MCH (RBC) [Entitic mass] 34.0 g/dL Normal 32.0-35.0 [facility] Comment on above: Performed By: #### C BC, CK, CMP, CRP, T4F, TSH3, ESR #### [place] [id number] [place] MCH (RBC) [Entitic mass] 30.8 pg Normal 24.7-34.3 [facility] Comment on above: Performed By: #### C BC, CK, CMP, CRP, T4F, TSH3, ESR #### [address] MCV (RBC) [Entitic vol] 90.5 fL Normal 80-100 [facility] Comment on above: Performed By: #### C BC, CK, CMP, CRP, T4F, TSH3, ESR #### [address] Monocytes (Bld) [#/Vol] 0.5 10*3/uL Normal 0.0-0.8 [facility] Comment on above: Performed By: #### C BC, CK, CMP, CRP, T4F, TSH3, ESR #### [address] Monocytes/100 WBC (Bld) 7.0 % Normal . [facility] Comment on above: Performed By: #### C BC, CK, CMP, CRP, T4F, TSH3, ESR #### [address] Neutrophils (Bld) [#/Vol] 6.0 10*3/uL Normal 1.8-7.7 [facility] Comment on above: Performed By: #### C BC, CK, CMP, CRP, T4F, TSH3, ESR #### [address] Neutrophils/100 WBC (Bld) 76.5 % Normal . [facility] Comment on above: Performed By: #### C BC, CK, CMP, CRP, T4F, TSH3, ESR #### [address] Nucleated RBC/100 WBC (Bld) [Ratio] 0.2 % Normal 0-0.5 [facility] Comment on above: Performed By: #### C BC, CK, CMP, CRP, T4F, TSH3, ESR #### [facility] [address] Platelet mean volume (Bld) [Entitic vol] 8.6 fL Normal 6.3-10.7 [facility] Comment on above: Performed By: #### C BC, CK, CMP, CRP, T4F, TSH3, ESR #### [facility] [address] Platelets (Bld) [#/Vol] 218 10*3/uL Normal 150-450 [facility] Comment on above: Performed By: #### C BC, CK, CMP, CRP, T4F, TSH3, ESR #### [facility] [address] RBC (Bld) [#/Vol] 4.96 10*6/uL Normal 3.60-5.00 [facility] Comment on above: Performed By: #### C BC, CK, CMP, CRP, T4F, TSH3, ESR #### [address] WBC (Bld) [#/Vol] 7.8 10*3/uL Normal 4.5-11.0 [facility] Comment on above: Performed By: #### C BC, CK, CMP, CRP, T4F, TSH3, ESR #### [address] Comprehensive Metabolic Pane molly 04-06-2019 Albumin [Mass/Vol] 4.0 g/dL Normal 3.2-5.5 [facility] Comment on above: Performed By: #### C BC, CK, CMP, CRP, T4F, TSH3, ESR #### [address] Albumin/Globulin [Mass ratio] 1.5 {ratio} Normal [facility] Comment on above: Performed By: #### C BC, CK, CMP, CRP, T4F, TSH3, ESR #### [address] ALP [Catalytic activity/Vol] 40 U/L Normal 32-92 [facility] Comment on above: Performed By: #### C BC, CK, CMP, CRP, T4F, TSH3, ESR #### [address] ALT [Catalytic activity/Vol] 10 U/L Normal 10-60 [facility] Comment on above: Performed By: #### C BC, CK, CMP, CRP, T4F, TSH3, ESR #### [address] AST [Catalytic activity/Vol] 15 U/L Normal 10-42 [facility] Comment on above: Performed By: #### C BC, CK, CMP, CRP, T4F, TSH3, ESR #### [address] Bilirubin [Mass/Vol] 0.6 mg/dL Normal 0.3-1.2 [facility] Comment on above: Performed By: #### C BC, CK, CMP, CRP, T4F, TSH3, ESR #### [address] Calcium [Mass/Vol] 9.6 mg/dL Normal 8.2-10.2 [facility] Comment on above: Performed By: #### C BC, CK, CMP, CRP, T4F, TSH3, ESR #### [address] Chloride [Moles/Vol] 103 mmol/L Normal 95-114 [facility] Comment on above: Performed By: #### C BC, CK, CMP, CRP, T4F, TSH3, ESR #### [address] CO2 [Moles/Vol] 26.6 mmol/L Normal 22.0-30.0 [facility] Comment on above: Performed By: #### C BC, CK, CMP, CRP, T4F, TSH3, ESR #### [address] Creatinine [Mass/Vol] 0.79 mg/dL Normal 0.44-1.03 [facility] Comment on above: Performed By: #### C BC, CK, CMP, CRP, T4F, TSH3, ESR #### [facility] [address] [place] [address] [place] Estimated GFR ( Kimberly > 60 Normal [facility] Comment on above: Result Comment: GFR estimated reference range: According to KDOQI guidelines, <60 ml/min/1.73m2 is sufficient to diagnose a patient with chronic kidney disease. Performed By: #### C BC, CK, CMP, CRP, T4F, TSH3, ESR #### [facility] [address] Estimated GFR (Non- Am > 60 Normal [facility] Comment on above: Performed By: #### C BC, CK, CMP, CRP, T4F, TSH3, ESR #### [facility] [address] Globulin (S) [Mass/Vol] 2.6 g/dL Normal [facility] Comment on above: Performed By: #### C BC, CK, CMP, CRP, T4F, TSH3, ESR #### [facility] [address] Glucose [Mass/Vol] 87 mg/dL Normal 70-100 [facility] Comment on above: Result Comment: [place] Glucose Reference Range is dependent on time and content of last meal. Glucose of more than 200 mg/dL in a nonstressed, ambulatory subject supports the diagnosis of Diabetes Mellitus. ADA recommended reference range Performed By: #### C BC, CK, CMP, CRP, T4F, TSH3, ESR #### [facility] [address] Potassium [Moles/Vol] 4.2 mmol/L Normal 3.5-5.1 [facility] Comment on above: Performed By: #### C BC, CK, CMP, CRP, T4F, TSH3, ESR #### [facility] [address] Protein [Mass/Vol] 6.6 g/dL Normal 6.1-7.9 [facility] Comment on above: Performed By: #### C BC, CK, CMP, CRP, T4F, TSH3, ESR #### [address] Sodium [Moles/Vol] 140 mmol/L Normal 136-146 [facility] Comment on above: Performed By: #### C BC, CK, CMP, CRP, T4F, TSH3, ESR #### [address] Urea nitrogen [Mass/Vol] 12 mg/dL Normal 9-23 [facility] Comment on above: Performed By: #### C BC, CK, CMP, CRP, T4F, TSH3, ESR #### [address] Creatine Kinaseon 04-06-2019 CK [Catalytic activity/Vol] 46 U/L Normal 22-269 [facility] Comment on above: Result Comment: PERF ORMED BY: [place] [address] PATHOLOGIST [employer]PERINT[employer]ENT [employer] ROSLYN TALLEY M.D. Performed By: #### C BC, CK, CMP, CRP, T4F, TSH3, ESR #### [address] Dipstick and Microscopicon 1 Appearance (U) Turbid Critically abnormal Clear [facility] Comment on above: Order Comment: Name Collection Type:: Clean-Voided Midstream Performed By: #### A DDONUAPLUS, PT, PTT #### [address] Bacteria LM.HPF (Urine sed) [#/Area] 1+ High None Seen [facility] Comment on above: Order Comment: Name Collection Type:: Clean-Voided Midstream Performed By: #### A DDONUAPLUS, PT, PTT #### [address] Bilirubin,Urine Negative Normal Negative [facility] Comment on above: Order Comment: Name Collection Type:: Clean-Voided Midstream Performed By: #### A DDONUAPLUS, PT, PTT #### [facility] [address] [place] [address] [place] Color (U) Yellow Normal Yellow [facility] Comment on above: Order Comment: Name Collection Type:: Clean-Voided Midstream Performed By: #### A DDONUAPLUS, PT, PTT #### [facility] [address] [place] [address] [place] Glucose Ql (U) Normal Normal Normal [facility] Comment on above: Order Comment: Name Collection Type:: Clean-Voided Midstream Performed By: #### A DDONUAPLUS, PT, PTT #### [facility] [address] [place] [address] [place] Hyaline Casts,Urine None Seen Normal 0-1 [facility] Comment on above: Order Comment: Name Collection Type:: Clean-Voided Midstream Performed By: #### A DDONUAPLUS, PT, PTT #### [facility] [address] [place] [address] [place] Ketones Ql (U) Trace High Negative [facility] Comment on above: Order Comment: Name Collection Type:: Clean-Voided Midstream Performed By: #### A DDONUAPLUS, PT, PTT #### [place] [address] [place] Leukocyte esterase Test strip Ql (U) 3+ High Negative [facility] Comment on above: Order Comment: Name Collection Type:: Clean-Voided Midstream Performed By: #### A DDONUAPLUS, PT, PTT #### [facility] [address] [place] [address] [place] Nitrite,Urine Negative Normal Negative [facility] Comment on above: Order Comment: Name Collection Type:: Clean-Voided Midstream Performed By: #### A DDONUAPLUS, PT, PTT #### [facility] [address] [place] [address] [place] Occult Blood,Urine Negative Normal Negative [facility] Comment on above: Order Comment: Name Collection Type:: Clean-Voided Midstream Performed By: #### A DDONUAPLUS, PT, PTT #### [place] [address] Other Casts,Urine None Seen Normal None Seen [facility] Comment on above: Order Comment: Name Collection Type:: Clean-Voided Midstream Result Comment: PERF ORMED BY: [place] [address] PATHOLOGIST SUPERINTENDENT [employer] ROSLYN TALLEY M.D. Performed By: #### A DDONUAPLUS, PT, PTT #### [address] pH (U) 5.0 [pH] Normal 5.0-9.0 [facility] Comment on above: Order Comment: Name Collection Type:: Clean-Voided Midstream Performed By: #### A DDONUAPLUS, PT, PTT #### [address] Protein (U) [Mass/Vol] Negative Normal Negative [facility] Comment on above: Order Comment: Name Collection Type:: Clean-Voided Midstream Performed By: #### A DDONUAPLUS, PT, PTT #### [address] RBC LM.HPF (Urine sed) [#/Area] 5-9 High 0-4 [facility] Comment on above: Order Comment: Name Collection Type:: Clean-Voided Midstream Performed By: #### A DDONUAPLUS, PT, PTT #### [address] Specificy Sachse,Urine 1.024 Normal 1.001-1.030 [facility] Comment on above: Order Comment: Name Collection Type:: Clean-Voided Midstream Performed By: #### A DDONUAPLUS, PT, PTT #### [address] Squamous Epithelial Cell,Urine 5-9 High 0-2 [facility] Comment on above: Order Comment: Name Collection Type:: Clean-Voided Midstream Performed By: #### A DDONUAPLUS, PT, PTT #### [address] Urobilinogen,Urine Normal Normal Normal [facility] Comment on above: Order Comment: Name Collection Type:: Clean-Voided Midstream Performed By: #### A DDONUAPLUS, PT, PTT #### [address] WBC LM.HPF (Urine sed) [#/Area] 20-49 High 0-4 [facility] Comment on above: Order Comment: Name Collection Type:: Clean-Voided Midstream Performed By: #### A DDONUAPLUS, PT, PTT #### [address] Erythrocyte Sedimentation Ra roosevelt 04-06-2019 ESR (Bld) [Velocity] 23 mm/h Normal 0-30 [facility] Comment on above: Result Comment: PERF ORMED BY: [place] [address] PATHOLOGIST SUPERINT[employer]ENT [employer] ROSLYN TALLEY M.D. Performed By: #### C BC, CK, CMP, CRP, T4F, TSH3, ESR #### [address] Free T4 (Free Thyroxine)on 1 Free T4 [Mass/Vol] 0.88 ng/dL Normal 0.61-1.12 [facility] Comment on above: Performed By: #### C BC, CK, CMP, CRP, T4F, TSH3, ESR #### [place] [address] [place] Partial Thromboplastin Timeo n 04-06-2019 aPTT Coag (Bld) [Time] 29.8 s Normal 23.0-35.0 [facility] Comment on above: Order Comment: List the anticoagulant: NONE Result Comment: PERF ORMED BY: [place] [address] PATHOLOGIST SUPERINT[employer] ROSLYN TALLEY M.D. Performed By: #### A DDONUAPLUS, PT, PTT #### [address] Prothrombin Time INRon 04-06 INR Coag (Bld) [Relative time] 10.3 s Normal 9.0-12.9 [facility] Comment on above: Order Comment: List the anticoagulant: NONE Performed By: #### A DDONUAPLUS, PT, PTT #### [facility] [address] [place] [id number] [facility] INR Coag (PPP) [Relative time] 0.9 {INR} Normal [facility] Comment on above: Order Comment: List the [...] By: #### A DDONUAPLUS, PT, PTT #### [address] Thyroid Stimulating Hormoneo n 04-06-2019 TSH Qn 2.89 u[iU]/mL Normal 0.45-5.33 [facility] Comment on above: Result Comment: PERF ORMED BY: [place] [address] PATHOLOGIST SUPERINT[employer]ENT [employer] ROSLYN TALLEY M.D. Performed By: #### C BC, CK, CMP, CRP, T4F, TSH3, ESR #### [place] [id number] [facility] Vital Signs Date Time Vital Sign Value Performing Clinician Facility 05-05-2023 09:[id number] Body height 160.02 cm Casandra Chopra Other [facility] Other 05-05-2023 09:10-0400 Body mass index (BMI) [Ratio] 31.35 kg/m2 Casandra Chopra Other [facility] 05-05-2023 09:10-0400 Body temperature 98.9 [degF] Casandra Chopra Other [facility] Other 05-05-2023 09:10-0400 Body weight 80.29 kg Casandra Chopra Other [facility] Other 05-05-2023 09:10-0400 Diastolic blood pressure 68 mm[Hg] Casandra Nav Other [facility] Other 05-05-2023 09:10-0400 Respiratory rate 18 /min Casandra Chopra Other [facility] 05-05-2023 09:10-0400 SaO2% (BldA) [Mass fraction] 98 % Casandra Chopra Other [facility] 05-05-2023 09:10-0400 Systolic blood pressure 112 mm[Hg] Casandra Nav Other [facility] 02-23-2023 11:40-0400 Body height 160.02 cm Eva Blades Other [facility] Other 02-23-2023 11:40-0400 Body mass index (BMI) [Ratio] 31.35 kg/m2 Eva Blades Other [facility] 02-23-2023 11:40-0400 Body weight 80.29 kg Eva Blades Other [facility] Other 02-23-2023 11:40-0400 Diastolic blood pressure 78 mm[Hg] Eva Blades Other [facility] Other 02-23-2023 11:40-0400 Systolic blood pressure 110 mm[Hg] Eva Blades Other [facility] Other 12-29-2022 10:00-0400 Body height 160.02 cm [employer] Other [facility] Other 12-29-2022 10:00-0400 Body mass index (BMI) [Ratio] 30.82 kg/m2 [employer] Other [facility] Other 12-29-2022 10:00-0400 Body weight 78.93 kg [employer] Other [facility] Other 12-29-2022 10:00-0400 Diastolic blood pressure 68 mm[Hg] [employer] Other [facility] Other 12-29-2022 10:00-0400 Systolic blood pressure 118 mm[Hg] [employer] Other [facility] Other 10-28-2022 10:10-0400 Body height 160.02 cm Casandra Chopra Other [facility] Other 10-28-2022 10:10-0400 Body mass index (BMI) [Ratio] 31.7 kg/m2 Casandra Chopra Other [facility] 10-28-2022 10:10-0400 Body temperature 97.6 [degF] Casandra Chopra Other [facility] Other 10-28-2022 10:10-0400 Body weight 81.19 kg Casandra Chopra Other [facility] Other 10-28-2022 10:10-0400 Diastolic blood pressure 68 mm[Hg] Casandra Chopra Other [facility] Other 10-28-2022 10:10-0400 Respiratory rate 18 /min Casandra Chopra Other [facility] 10-28-2022 10:10-0400 SaO2% (BldA) [Mass fraction] 99 % Casandra Chopra Other [facility] 10-28-2022 10:10-0400 Systolic blood pressure 112 mm[Hg] Casandra Chopra Other [facility] Other 02-04-2022 15:05-0400 Blood Pressure Location Russell [employer] [facility] [place] 02-04-2022 15:05-0400 Diastolic blood pressure 60 mm[Hg] Russell NILL [facility] [place] 02-04-2022 15:05-0400 Heart rate 72 /min Russell NILL [facility] [place] 02-04-2022 15:05-0400 Respiratory rate 16 /min Russell NILL [facility] [place] 02-04-2022 15:05-0400 Systolic blood pressure 116 mm[Hg] Russell NILL [facility] [place] 10-17-2021 09:50-0400 Body height 160.02 cm Casandra Chopra Other [facility] 10-17-2021 09:50-0400 Body mass index (BMI) [Ratio] 31 kg/m2 Casandra Chopra Other [facility] 10-17-2021 09:50-0400 Body temperature 97.8 [degF] Casandra Chopra Other [facility] 10-17-2021 09:50-0400 Body weight 79.38 kg Casandra Chopra Other [facility] Other 10-17-2021 09:50-0400 Diastolic blood pressure 64 mm[Hg] Casandra Chopra Other [facility] Other 10-17-2021 09:50-0400 Respiratory rate 18 /min Casandra Chopra Other [facility] 10-17-2021 09:50-0400 SaO2% (BldA) [Mass fraction] 97 % Casandra Chopra Other [facility] 10-17-2021 09:50-0400 Systolic blood pressure 102 mm[Hg] Casandra Chopra Other [facility] Other 09-04-2021 09:10-0500 Body height 160.02 cm Casandra Chopra Other [facility] 09-04-2021 09:10-0500 Body mass index (BMI) [Ratio] 30.11 kg/m2 Casandra Chopra Other [facility] 09-04-2021 09:10-0500 Body temperature 97.6 [degF] Casandra Chopra Other [facility] Other 09-04-2021 09:10-0500 Body weight 77.11 kg Casandra Chopra Other [facility] Other 09-04-2021 09:10-0500 Diastolic blood pressure 68 mm[Hg] Casandra Chopra Other [facility] Other 09-04-2021 09:10-0500 Respiratory rate 18 /min Casandra Chopra Other [facility] Other 09-04-2021 09:10-0500 SaO2% (BldA) [Mass fraction] 99 % Casandra Chopra Other [facility] Other 09-04-2021 09:10-0500 Systolic blood pressure 104 mm[Hg] Casandra Chopra Other [facility] Other 04-10-2021 10:10-0400 Body height 160.02 cm Casandra Chopra Other [facility] Other 04-10-2021 10:10-0400 Body mass index (BMI) [Ratio] 31 kg/m2 Casandra Chopra Other [facility] 04-10-2021 10:10-0400 Body temperature 97.4 [degF] Casandra Chopra Other [facility] Other 04-10-2021 10:10-0400 Body weight 79.38 kg Casandra Chopra Other [facility] Other 04-10-2021 10:10-0400 Diastolic blood pressure 76 mm[Hg] Casandra Chopra Other [facility] Other 04-10-2021 10:10-0400 Respiratory rate 18 /min Casandra Chopra Other [facility] Other 04-10-2021 10:10-0400 SaO2% (BldA) [Mass fraction] 99 % Casandra Chopra Other [facility] Other 04-10-2021 10:10-0400 Systolic blood pressure 118 mm[Hg] Casandra Chopra Other [facility] Other Encounters Encounter Date Encounter Type Care Provider Facility Start: 05-12-2023 End: 05-12-2023 ambulatory Casandra Chopra Other [facility] Other Start: 05-12-2023 Telephone encounter Casandra Chopra [facility] [place] Start: 05-05-2023 End: 05-05-2023 ambulatory Casandra Chopra Other [facility] Other Start: 05-05-2023 Office outpatient vi sit 25 minutes Casandra Chopra [facility] [place] Start: 05-05-2023 Telephone encounter Casandra Chopra [facility] [place] Start: 02-23-2023 End: 02-23-2023 ambulatory Eva Cortes Other [facility] Other Start: 02-23-2023 Office outpatient vi sit 15 minutes Eva Cortes [facility] Start: 02-19-2023 End: 02-19-2023 ambulatory Germaine Manuel Facility:[facility] Start: 02-19-2023 End: 02-19-2023 ambulatory DO Josiah Samuel Work Phone: [facility] Work Phone: Start: 02-19-2023 End: 02-19-2023 Patient encounter procedure DO Josiah Samuel Work Phone: [facility] [place] Work Phone: Start: 02-12-2023 End: 02-12-2023 ambulatory Casandra Chopra Other [facility] Other Start: 02-12-2023 Telephone encounter Casandra Chopra [facility] [place] Start: 02-02-2023 End: 02-02-2023 ambulatory Casandra Chopra Other [facility] Other Start: 02-02-2023 Telephone encounter Casandra Chopra [facility] [place] Start: 12-30-2022 End: 12-30-2022 ambulatory Germaine Manuel Other [facility] Other Start: 12-30-2022 Telephone encounter Germaine Mar [facility] [employer] Start: 12-29-2022 End: 12-29-2022 ambulatory Germaine Mar Other [facility] Other Start: 12-29-2022 Office outpatient ne w 45 minutes Germaine Mar [facility] Start: 12-02-2022 End: 12-03-2022 ambulatory CHRISSY VENEGAS . Facility:[facility] Start: 10-28-2022 End: 10-28-2022 ambulatory Casandra Chopra Other [facility] Other Start: 10-28-2022 Office outpatient vi sit 25 minutes [facility] Start: 10-22-2022 End: 10-23-[address] CASANDRA CHOPRA Facility:[facility] Start: 09-15-2022 End: 09-15-2022 ambulatory Casandra Chopra Other [facility] Other Start: 09-15-2022 Telephone encounter Casnadra Chorpa [facility] Start: 08-18-2022 End: 08-19-[address] CASANDRA CHOPRA Facility:[facility] Start: 05-12-2022 End: 05-13-[address] CASANDRA CHOPRA Facility:[facility] Start: 05-05-2022 End: 05-05-2022 ambulatory Casandra Chopra Other [facility] Other Start: 05-05-2022 Telephone encounter Casandra Chopra [facility] Start: 05-01-2022 End: 05-02-[address] CASANDRA CHOPRA Facility:[facility] Start: 04-14-2022 End: 04-15-[address] CASANDRA CHOPRA Facility:[facility] Start: 02-19-2022 End: 02-20-[address] CASANDRA CHOPRA Facility:[facility] Start: 02-04-2022 End: 02-04-2022 Patient encounter procedure Russell HARRELL [facility] [place] Start: 12-30-2021 End: 12-31-[address] CASANDRA CHOPRA Facility:[facility] Start: 12-16-2021 End: 12-17-[address] CASANDRA CHOPRA Facility:[facility] Start: 12-03-2021 End: 12-03-2021 ambulatory Casandra Chopra Other [facility] Other Start: 12-03-2021 Telephone encounter Casandra Chopra [facility] [place] Start: 10-22-2021 End: 10-22-2021 ambulatory Casandra Chopra Other [facility] Other Start: 10-22-2021 Telephone encounter Casandra Chopra [facility] [place] Start: 10-17-2021 End: 10-17-2021 ambulatory Casandra Chopra Other [facility] Other Start: 10-17-2021 Office outpatient vi sit 25 minutes Casandra Chopra [facility] [place] Start: 10-17-2021 Telephone encounter Casandra Chopra [facility] [place] Start: 09-04-2021 End: 09-04-2021 ambulatory Casandra Chopra Other [facility] Other Start: 09-04-2021 Office outpatient vi sit 15 minutes Casandra Chopra [facility] [place] Start: 04-24-2021 Telephone encounter Casandra Chopra [facility] [place] Start: 04-10-2021 Office outpatient vi sit 15 minutes Casandra Chopra [facility] [place] Procedures Date Procedure Procedure [...] Immunization Date Immunization Notes Care Provider Shyla camp 04-20-2021 COVID-19 Vaccine Pfizer - Documentation Purposes Only Casandra Chopra Other [facility] Other 04-10-2021 influenza, seasonal, injectable Patient Objection Casandra Chopra Other [facility] Other 03-30-2021 COVID-19 Vaccine Pfizer - Documentation Purposes Only Casandra Chopra Other [facility] Other 11-21-2016 Toradol per 15 mg Casandra Calderon in Other [facility] Other 06-02-2016 influenza, seasonal, injectable Patient Objection Casandra Chopra Other [facility] Other 06-02-2016 pneumococcal polysaccharide vaccine, 23 valent Patient Objection Casandra Chopra Other [facility] Other 03-23-2012 Kenalog 40/Xylocaine Casandra mendieta Other [facility] Other NEGATED: Highlighted row has not occurred! 1 influenza, seasonal, injectable Patient Objection Casandra Leunglaura Other [facility] Other NEGATED: Highlighted row has not occurred! 6 influenza, seasonal, injectable Patient Objection Casandra Chopra Other [facility] Other NEGATED: Highlighted row has not occurred! 6 pneumococcal polysaccharide vaccine, 23 valent Patient Objection Casandra Leunglaura Other [facility] Other Payers Date Payer Category Payer Private Health Insurance [id number] 2022 Self-pay [id number] 2019 Medicare [id number] [id number] 1959 Medicare [id number] 2. [id number] 1959 Medicare [id number] 1959 Private Health Insurance [id number]. 1959 Unknown [id number] 1952 Unknown [id number] 2.16.84 [id number] 1952 Unknown [id number] 2.16.84 [id number] 1952 Unknown [id number] 2.16.84 [id number] 1952 Unknown [id number] 2.16.84 [id number] 1952 Unknown [id number] 2.16.84 [id number] 1952 Unknown [id number] 2.16.84 [id number] 1952 Unknown [id number] 2.16.84 [id number] 1952 Unknown [id number] 2.16.84 [id number] 1952 Unknown [id number] 2.16.84 [id number] 1952 Unknown [id number] 2.16.84 [id number] Unknown [id number] 2.16.8 [id number] Social History Date Type Detail Facility Unknown if ever smoked [facility] Other Sex Assigned At [facility] Other Start: 02-04-2022 Tobacco smoking status Heavy t obacco smoker (finding) [facility] Tobacco smoking status Never [facility] Start: 1950 Sex Assigned At Female F [facility] Functional Status Date Assessment Result Facility 02-04-2022 Functional Status N/A General [facility] Clinical Notes 08-11-2012 to 05-05-2023 Note Date & Type Note Facility 05-05-2023 Evaluation note Encounter Date Diagnosis Assessment Notes Apr, Hematuria (ICD-10 - R31.9) [facility] Other 10-31-2023 Evaluation note* Encounter Date Diagnosis [...] with above medications as directed. 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 She has not been mulching. [facility] Other 08-21-2023 Evaluation note* Encounter Date Diagnosis Assessment Notes Treatment Notes Treatment Clinical Notes Feb, Compression fracture of T8 vertebra with routine healing, subsequent encounter (ICD-10 - S22.060D) [facility] Other 06-26-2023 Evaluation note* Encounter Date Diagnosis [...] (ICD-10 - R26.81) Dec, Other [facility] reviewed [facility] Other 04-25-2023 Evaluation note* Encounter Date Diagnosis [...] use above medications as needed. Oct, Other fpc (current) drug therapy (ICD-10 - Z79.899) Oct, Polyarthralgia (ICD-10 - M25.50) She does continue to follow with Dr. Bell and his PHLEBOTOMY DIRECTOR as scheduled. Oct, COPD (chronic obstructive pulmonary [...] breaths out before she lifts anything heavy. [facility] Other 03-13-2023 Evaluation note* Encounter Date Diagnosis Assessment Notes Treatment Notes Treatment Clinical Notes Sep, Hyperlipidemia (ICD-10 - E78.5) [facility] Other 10-31-2022 Evaluation note* Encounter Date Diagnosis Assessment Notes Treatment Notes Treatment Clinical Notes Apr, Hematuria (ICD-10 - R31.9) [facility] Other 08-04-2022 NoteChief Complaint consultation for ventral hernia HPI Staff 71 year old female presents on consultation from Dr. Chopra for ventral hernia. Reports she moved [place] two months ago. Noted epigastric lump several [...] tab(s), Oral, Daily potassium (more content not included)...[facility]:Result Comment: Electronically Signed By: SHARRI BECKER, Russell Valverde\Date and Time Signed: 02/06/22 10:42 [id number] Evaluation note* Encounter Date Diagnosis Assessment Notes [...] K59.00) Continue with above medication as needed. 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 When she was seen by Dr. Bell's PHLEBOTOMY DIRECTOR her BP was 80/60 so they wanted [...] stress is going to go down soon. [facility] Other 10-06-2021 Evaluation note* Encounter Date Diagnosis [...] with above medication as needed. Apr, Other fpc (current) drug therapy (ICD-10 - Z79.823) Apr, Other She voices that if she does not take Cranberry tablets her urine becomes thick so she does take the supplement daily. She will be getting her second COVID-19 vaccine on 04-20-21. [facility] Other 02-06-2013 History general Narrative - Reported* Type Description Date Medical History left shoulder & elbow problems Medical History 08/11/12 Cervical spine [place] [facility] [place] History 10/26/14 refused colonoscopy Medical History [...] natural 05/29/19 76 Hospitalization History natural 7 [facility] Other 02-06-2013 History general Narrative - Reported* Type Description Date Medical History left shoulder & elbow problems Medical History 08/11/12 Cervical [place] [facility] [place] History 10/26/14 refused colonoscopy Medical History [...] natural 05/29/19 76 Hospitalization History natural 7 [facility] Other 02-06-2013 History general Narrative - Reported* Type Description Date Medical History left shoulder & elbow problems Medical History 08/11/12 Cervical spine [place] [facility] [place] History 10/26/14 refused colonoscopy Medical History [...] natural 05/29/19 76 Hospitalization History natural 7 [facility] Other 02-06-2013 History general Narrative - Reported* Type Description Date Medical History left shoulder & elbow problems Medical History 08/11/12 Cervical spine x[place] [facility] [place] History 10/26/14 refused colonoscopy Medical History [...] natural 05/29/19 76 Hospitalization History natural 7 [facility] Other evaluation + Plan note No data available for this section General [facility] [place] Evaluation noteNo InformationNort [employer] Other Evaluation noteNo assessment information available [facility] Work Phone: Hospital Discharge instructions No data available for this section General Surgery [place] Progress note No data available for this section General Surgery [place] Summary Purpose Family History No Family History [...] Ear pain, left (H92. 02) Referral Organization [facility] Family Pepe Chen Referring Provider First Name Casandra Referring Provider Last Name Nav Referring Provider Specialty Family Prac amanda Referred Organization [facility] Referred Provider VaibhavjesBeth schuster Referred Address ,[place], [place],[address] Referred Provider Specialty Ear, Nose an d Throat Referral Priority Routine General Notes Eva Weaver 05/05/2023 10:59:36 AM > referral faxed thru [facility] with visit note and insurance card. pt understands she will be contacted to schedule this appt. Additional Source Comments INFORMATION SOURCE (unrecogn ized section and content) DATE CREATED AUTHOR 04/07/2019 [facility] DATE CREATED AUTHOR AUTHOR'S ORGANIZ ATION 03/01/2022 [facility] DATE CREATED AUTHOR AUTHOR'S ORGANIZ ATION 12/12/2022 [facility] DATE CREATED AUTHOR AUTHOR'S ORGANIZ ATION 02/25/2023 [facility] REASON FOR VISIT (unrecogniz ed section [...] BE BASED ON THE PRIMARY CLINICAL RECORDS. [employer]. provides no warranty or guarantee of the accuracy or completeness of information in this document.
[2024-02-10 08:52] LABS: Basophils Absolute Auto 0.1 10^3/uL (0.0-0.1); Basophils Percent Auto 1.6 % (0.2-2.0); Eosinophils Absolute Auto 0.1 10^3/uL (0.0-0.7); Eosinophils Percent Auto 1.8 % (0.9-7.0); Hematocrit 38.7 % (36.0-48.0); Hemoglobin 12.7 g/dL (12.0-16.0); Immature Granulocytes Abs Auto 0.01 10^3/uL (0.00-0.03); Immature Granulocytes Pct Auto 0.2 % (0.0-0.5); Lymphocytes Percent Auto 17.1 % (20.5-60.0); Mean Corpuscular HGB Conc 32.8 g/dL (29.9-35.2); Mean Corpuscular Hemoglobin 31.1 pg (26.7-34.0); Mean Corpuscular Volume 94.6 fL (81.0-99.0); Mean Platelet Volume 9.1 fL (9.5-13.5); Monocytes Absolute Auto 0.5 10^3/uL (0.3-0.8); Monocytes Percent Auto 8.3 % (1.7-12.0); Platelet Count 195 10^3/uL (150-450); Red Blood Count 4.09 10^6/uL (4.20-5.40); Red Cell Distribution Width 13.2 % (11.0-15.0); White Blood Count 5.7 10^3/uL (4.0-11.0)
[2024-02-10 08:53] LABS: Bilirubin Urine MODERATE (NEGATIVE); Blood Urine NEGATIVE (NEGATIVE); Clarity Urine CLEAR (CLEAR); Color Urine LT. YELLOW (YELLOW); Glucose Urine UA NEGATIVE (NEGATIVE); Ketones Urine NEGATIVE (NEGATIVE); Leukocyte Esterase Urine MODERATE (NEGATIVE); Nitrite Urine NEGATIVE (NEGATIVE); Protein Urine NEGATIVE (NEG/TRACE); Urobilinogen Urine 0.2 EU/dL (0.2-1.0)
[2024-02-10 09:03] LABS: Bacteria Urine SMALL #/HPF (NONE SEEN); Cast Seen? SEEN #/LPF (NONE SEEN); Crystals Seen? None Seen #/HPF (None Seen); Fine Granular Casts Urine RARE; Mucus Urine TRACE (NONE SEEN); RBC Urine 0-2 #/HPF (0-2); Renal Epithelial Cells Urine FEW #/LPF (NONE SEEN); Squamous Epithelial Cell Urine MODERATE #/LPF (NONE/RARE)
[2024-02-10 09:12] LABS: Erythrocyte Sedimentation Rate 73 mm/hr (<=30)
[2024-02-10 09:20] LABS: Alanine Aminotransferase 22 U/L (14-59); Albumin Globulin Ratio 1.2; Albumin Level 3.8 g/dL (3.4-5.0); Alkaline Phosphatase 42 U/L (46-116); Anion Gap 16.3; Aspartate Amino Transferase 21 U/L (15-37); BUN Creatinine Ratio 18.8; Bilirubin Total 0.5 mg/dL (0.2-1.0); Carbon Dioxide 24.9 mmol/L (21.0-32.0); Chloride 99 mmol/L (98-107); Estimated GFR (African America >60 (>=60); Estimated GFR (Non-African Ame >60 (>=60); Globulin 3.1 g/dL; Glucose 85 mg/dL (74-106); Potassium 4.2 mmol/L (3.5-5.1); Sodium 136 mmol/L (136-145); Total Protein 6.9 g/dL (6.4-8.2)
[2024-02-11 12:10] LABS: Complement C3, Serum 129 mg/dL (82-167); Complement C4, Serum 22 mg/dL (12-38)
[2024-02-11 13:09] LABS: Complement, Total (CH50) >60 U/mL (>41)
== END 2024-02-10 08:24 | disposition home or self-care (01) ==
LOC: LAB 08:24
PROVIDERS: PCP Family Medicine; Visit Provider Internal Medicine Rheumatology
DX: M35.1 Other overlap syndromes (principal); M15.0 Primary generalized (osteo)arthritis; Z79.899 Other long term (current) drug therapy
CPT/HCPCS: 36415; 80053; 81001; 85025; 85652; 86160; 86162

== ENCOUNTER 2024-02-15 10:47 | Outpatient (OUT) | payer MEDICARE, SELFPAY ==
--- NOTE | 2024-02-15 10:54 | XR_ITS ---
The [address] [address] Patient Name: GENNA GALVAN MRN: [id number] date: 1950 Sex: F Assigned Patient Location: LAB Current Patient Location: Accession/Order Number: [id number] Exam Date: 02/15/2024 11:05 Report Date: 02/17/2024 06:55 At the request of: CASANDRA CHOPRA Procedure: XR knee RT 2V PROCEDURE: XR knee RT 2V HISTORY: Right Knee Pain M25.561 COMPARISON: None. FINDINGS: BONES:Mild narrowing of the medial joint space. No fracture, dislocation, or significant degenerative changes. SOFT TISSUES:No visible soft tissue swelling. EFFUSION:Moderate to large joint effusion. OTHER: Negative. XR/XR knee RT 2V IMPRESSION: 1. Moderate to large joint effusion of uncertain etiology. 2. Mild narrowing of the medial joint space; possible cartilage or meniscal injury. Electronically authenticated by: MARII TURCIOS Date: 02/17/2024 06:55
== END 2024-02-15 10:48 | disposition home or self-care (01) ==
LOC: LAB 10:48
PROVIDERS: PCP Family Medicine; Visit Provider Family Medicine
DX: M25.561 Pain in right knee (principal); M25.461 Effusion, right knee
CPT/HCPCS: 73560

== ENCOUNTER 2024-02-24 08:15 | Outpatient (OUT) | payer MEDICARE, SELFPAY ==
--- OUTSIDE RECORDS SUMMARY | 2024-02-24 08:29 | XMS_ITS | CCD ---
Author Organization [facility] Care Team Providers Care Wheel Braider Name Role Phone Casandra Chopra Unavailable Casandra Chopra Primary Care Physician NAV, DR GUAJARDO Consulting Unavailable GIRLAURA, DR GUAJARDO Attending Unavailable GIRVIN, DR GUAJARDO [...] GIRVIN, DR GUAJARDO Attending Unavailable GIRVIN, DR GUAAJRDO Admitting Unavailable GIRVIN, DR GUAJARDO Primary Care Unavailable WEST, DR CASANDRA Mccall Consulting Unavailable RAY, DR COY Admitting Unavailable BELL, DR COY Consulting Unavailable BELL, DR COY Attending Unavailable Germaine Manuel Unavailable DO Josiah Samuel Primary Care Provider PITO Manuel Attending Provider Eva Cortes Unavailable DO Casandra Chopra Attending Provider Casandra Chopra Admitting Unavailable Casandra Chopra Attending Unavailable NO FAMILY, PHYSICIAN Primary Care Unavailable Domingo George Admitting Unavailable Domingo George Attending Unavailable NO FAMILY, PHYSICIAN Primary Care Unavailable NO FAMILY, PHYSICIAN Primary Care Provider Unava ilable DO Domingo George Attending Provider Allergies Allergy Classification Reported Allergen(s) Allergy Type Date of Onset Reaction(s) Facility (20 sources) buPROPion; Translations: [Bupropion] Drug Allergy Anxiety (finding) Voyat Other (20 sources) traMADol Drug Allergy [address] [facility] (1 source) Acetaminophen / HYDROcodone Drug Allergy [facility] Repository (3 sources) buPROPion; Translations: [bupropion] Drug Allergy 4 made anxiety worse was prescribed by Dr. Venegas [facility] (1 source) traMADol Drug Allergy 4 [facility] Repository Medications Current Medications Medication Drug Class(es) Dates Sig (Normalized) Sig (Original) 8 hr acetaminophen 650 mg extended release oral tablet (18 sources) Start: 11-03-2023 Acetaminophen (Tylenol Arthritis Pain) 650 mg tablet extended release Active 1300 MG PO Every 8 hours November 03, 2023 12:00am take [address] [facility] every eight hours as needed Tylenol 8 Hour Arthritis Pain 650 MG 2 tablets as needed Orally every 8 hrs Active [id number] 200 actuat albuterol 0.09 mg/actuat metered dose inhaler (20 sources) beta2-Adrenergic Agonist Start: 11-03-2023 take 1 puff(s) by inhalation every four hours Albuterol Sulfate (Ventolin Hfa) 90 mcg/actuation HFA aerosol inhaler Active 1 PUFF INHALATION Every 4 hours November 03, 2023 12:00am take 1 puff(s) by in halation every four hours as needed Ventolin HFA 90 MCG/ACT 1 puff as needed Inhalation every 4 hrs prn Active ascorbic acid 500 mg oral tablet (18 sources) Vitamin C Start: 11-03-2023 take 500 mg by mouth once daily Ascorbic Acid (Vitamin C) Active 500 MG PO Daily November 03, 2023 12:00am take 1 tablet by mouth every twe nty-four hours take 1 tablet by mouth every twe lve hours Calcium (2 sources) Phosphate Binder, Calcium Calciu m Active Calcium 1200+D3 600-40-500 M G-MG-UNIT (10 sources) Calcium 1200+D3 600-40-500 MG-MG-UNIT 2 [...] Active cranberry preparation 405 mg oral capsule (20 sources) Non-Standardized Food Allergenic Extract, Non-Standardized Plant Allergenic Extract Start: 11-03-2023 take 405 mg by mouth once daily Cranberry Active 405 MG PO Daily November 03, 2023 12:00am administer with a meal Cranberry 405 MG as directed Orally Active Cranberry 405 MG as directed Orally Active cyclobenzaprine hydrochloride 10 mg oral tablet (1 source) Muscle Relaxant Start: 02-23-2024 take 10 mg by mouth three times daily Cyclobenzaprine Active 10 MG PO Three times daily February 23, 2024 12:00am docusate sodium 100 mg oral capsule (20 sources) Start: 11-04-2023 take 1 capsule by mouth once daily Docusate Sodium Active 1 CAP PO Daily November 04, 2023 12:00am FreeTextSi capsule Orally Once a day; Note: Source Status: Not-Taking\PRNprn; Provider: Nav Butler Start: 09-19-2019 take [address] [facility] every twenty-four hours Colace 100 MG 1 capsule Orally Once a day prn Sep, Not-Taking etodolac 400 mg oral tablet (20 sources) Nonsteroidal Anti-inflammatory Drug Start: 11-04-2023 take 400 mg by mouth twice daily Etodolac Active 400 MG PO Twice daily November 04, 2023 12:00am Start: 06-20-2019 Etodolac 400 M G 1 tablet Orally bid - Dr. Bell Jun, Active Ubmmwnwsvtw-Nqqqpaklc-Gwvznt er (3 sources) Anticholinergic, Corticosteroid, beta2-Adrenergic Agonist Start: 02-23-2024 Kbrjwcxoxtd-Qzclxxwuz-Gpapqd er (Trelegy Ellipta) 100-62.5-25 mcg blister with device Active 1 INH INHALATION Daily February 23, 2024 12:00am Start: 11-03-2023 Fluticasone-Um eclidin-Vilanter (Trelegy Ellipta) 100-62.5-25 mcg blister with device Active 1 INH INHALATION Daily November 03, 2023 12:00am folic acid 0.4 mg / vitamin b12 0.5 mg oral tablet (1 source) Vitamin B12 Start: 02-23-2024 take 1 tablet by mouth once daily Vitamin A39-Agifg Acid Active 1 TAB PO Daily February 23, 2024 12:00am administer with a meal hydroxychloroquine sulfate 200 mg oral tablet (20 sources) Antimalarial, Antirheumatic Agent Start: 11-03-2023 take 200 mg by mouth twice daily Hydroxychloroquine Active 200 MG PO Twice daily November 03, 2023 12:00am Start: 01-30-2022 hydroxychloroq uine 200 mg Tab Refills(s) 0 Start Date: 01/30/22 Status: Ordered ibandronic acid 150 mg oral tablet (14 sources) Bisphosphonate Start: 11-04-2023 Ibandronate Ac tive 150 MG PO every month November 04, 2023 12:00am 1 tablet 60 minutes before the first food, beverage or medicine of the day with plain water Orally once a month Start: 05-05-2022 Ibandronate So dium 150 MG 1 tablet 60 minutes before the first food, beverage or medicine of the day with plain water Orally once a month Apr, Active ipratropium bromide 0.021 mg/actuat metered dose nasal spray (20 sources) Anticholinergic Start: 11-03-2023 End: 11-04-2023 Ipratropium Valencia Active 2 SPRAY INTRANASAL Twice daily November 04, 2023 9:04am Start: 01-30-2022 ipratropium na jazmine 0.03% spray 2 spray(s), Nasal, BID, Refill(s) 0 Start Date: 01/30/22 Status: Ordered take 2 spray(s) nasa l route twice daily Ipratropium Valencia 0.03 % 2 sprays in each nostril Nasally Twice a day Active methotrexate 2.5 mg oral tablet (1 source) Folate Analog Metabolic Inhibitor Start: 02-23-2024 take 2.5 mg by mouth every week Methotrexate Sodium Active 2.5 MG PO every week February 23, 2024 12:00am nitrofurantoin, macrocrystals 25 mg / nitrofurantoin, monohydrate 75 mg oral capsule (2 sources) Nitrofuran Antibacterial Start: 04-21-2022 take 1 capsule by mouth twice daily at mealtime Macrobid 100 MG 1 capsule Orally bid with food for 7 day(s) Apr, Active pantoprazole 40 mg delayed release oral tablet (20 sources) Proton Pump Inhibitor Start: 02-16-2024 take 40 mg by mouth once daily Pantoprazole Active 40 MG PO Daily February 16, 2024 10:07am Start: 02-08-2024 End: 02-16-2024 take 1 tablet by mouth once daily Pantoprazole Discontinued 0 .ROUTE .COMPLEX 90 February 08, 2024 8:49am February 16, 2024 10:07am TAKE 1 TABLET BY MOUTH EVERY DAY Start: 11-03-2023 End: 02-08-2024 take 40 mg by mouth once daily Pantoprazole Discontinu ed 40 MG PO Daily November 03, 2023 12:00am February 08, 2024 8:49am Start: 01-30-2022 take 1 tablet by trevor th once daily Pantoprazole [address] Tab 40 mg = 1 tab(s), Oral, Daily, Refills(s) 0 Start Date: 01/30/22 Status: Ordered potassium chloride 10 meq extended release oral tablet (20 sources) Start: 11-03-2023 take 10 mEq by mouth once daily Potassium Chloride Active 10 MEQ PO Daily November 03, 2023 4:14pm Start: 10-01-2023 End: 11-03-2023 take 1 tablet by mouth once daily at mealtime Potassium Chloride Discontinued 0 .ROUTE .COMPLEX 90 October 01, 2023 8:57am November 03, 2023 4:16pm TAKE 1 TABLET BY MOUTH EVERYDAY WITH FOOD Start: 10-01-2023 End: 10-01-2023 take 1 tablet by mouth once daily at mealtime Potassium Chloride Discontinued MEQ PO October 01, 2023 12:00am October 01, 2023 8:57am FreeTextSig: TAKE 1 TABLET BY MOUTH EVERYDAY WITH FOOD; Note: Source Status: Taking; Provider: Nav Guajardo ( ) Start: 01-30-2022 take 1 capsule by mo [facility] once daily potassium chloride 10 mEq Cap-ER 10 mEq = 1 cap(s), Oral, Daily, Refills(s) 0 Start Date: 01/30/22 Status: Ordered take 1 tablet by [facility] once daily at mealtime Potassium Chloride ER 10 MEQ TAKE 1 TABLET BY MOUTH EVERYDAY WITH FOOD Active terbinafine 250 mg oral tablet (1 source) [...] Albuterol 90 MCG/ACT as directed Inhalation Not-Taking amoxicillin 875 mg / clavulanate 125 mg oral tablet (2 sources) Penicillin-class Antibacterial Start: 12-28-2023 End: 02-02-2024 take 1 tablet by mouth twice daily Amoxicillin-Pot Clavulanate Discontinued 1 TAB PO Twice daily December 28, 2023 12:00am February 02, 2024 9:21am atorvastatin 10 mg oral tablet (20 sources) HMG-CoA Reductase Inhibitor Start: 11-03-2023 take 10 mg by mouth four times daily Atorvastatin Active 10 MG PO Daily November 03, 2023 4:13pm On Hold: hold for the next 4 weeks to see if she feels better Start: 09-07-2023 End: 11-03-2023 take 1 tablet by mouth once daily Atorvastatin Discontinued 0 .ROUTE .COMPLEX September 07, 2023 12:08pm November 03, 2023 4:16pm TAKE 1 TABLET BY MOUTH EVERY DAY Start: 09-07-2023 End: 09-07-2023 take 1 tablet by mouth once daily Atorvastatin Discontinued 1 TAB PO Daily September 07, 2023 1:00am September 07, 2023 12:08pm FreeTextSig: TAKE 1 TABLET BY MOUTH EVERY DAY; Note: Source Status: Taking; Provider: Nav Butler Start: 01-30-2022 take 1 tablet by trevor once daily atorvastatin 10 mg Tab 10 mg = 1 tab(s), Oral, Daily, Refills(s) 0 Start Date: 01/30/22 Status: Ordered azaTHIOprine 50 mg oral tablet (2 sources) Purine Antimetabolite Start: 02-02-2024 End: 02-23-2024 take 50 mg by mouth once daily Azathioprine Discontinued 50 MG PO Daily February 02, 2024 12:00am February 23, 2024 8:33am ordered by Dr. Bell B12 (2 sources) Start: 11-02-2023 End: 11-02-2023 take 1 tablet by mouth every other day B12 Discontinued 1 TAB PO .qod November 02, 2023 12:00am November 02, 2023 11:48am benzonatate 100 mg oral capsule (2 sources) Non-narcotic Antitussive Start: 09-17-2020 take 2 capsules by mouth every eight hours Tessalon Perles 100 MG 2 capsules Orally Three times a day Sep, Not-Taking furosemide 20 mg oral tablet (20 sources) Loop Diuretic Start: 02-16-2024 End: 02-23-2024 take 1 tablet by mouth once daily in the morning Furosemide Discontinued 20 MG PO .COMPLEX February 16, 2024 10:07am February 23, 2024 8:33am 20 mg orally TAKE 1 TABLET BY MOUTH ONCE EVERY MORNING; Start: 01-18-2024 End: 02-16-2024 take 1 tablet by mouth once daily in the morning Furosemide Discontinued 0 .ROUTE .COMPLEX 90 January 18, 2024 11:07am February 16, 2024 10:07am TAKE 1 TABLET BY MOUTH ONCE EVERY MORNING Start: 11-03-2023 End: 01-18-2024 take 20 mg by mouth once daily in the morning Furosemide Discontinued 20 MG PO Every morning November 03, 2023 12:00am January 18, 2024 11:07am Start: 01-30-2022 take 1 tablet by trevor th once daily Lasix 20 mg Tab 20 mg = 1 tab(s), Oral, Daily, Refills(s) 0 Start Date: 01/30/22 Status: Ordered Ketorolac (17 sources) Nonsteroidal Anti-inflammatory Drug, Cyclooxygenase Inhibitor Start: 11-21-2016 Toradol per 15 mg November, 2 cc lidocaine 0.05 mg/mg medicated patch (11 sources) Antiarrhythmic, Amide Local Anesthetic Start: 11-04-2023 End: 02-16-2024 Lidocaine Discontinued 1 PATCH TOPICAL Daily November 04, 2023 12:00am February 16, 2024 9:58am FreeTextSi patch remove after 12 hours Externally Once a day; Note: Source Status: Takingprn; Provider: Mar Chávez Start: 12-29-2022 Lidocaine 5 % 1 patch remove after 12 hours Externally Once a day prn Dec, Active methylPREDNISolone 4 mg oral tablet (19 sources) Corticosteroid Start: 02-16-2024 End: 02-23-2024 take 1 tablet by mouth once daily Methylprednisolone (Medrol) 4 mg tablet Discontinued 4 MG PO Daily February 16, 2024 12:00am February 23, 2024 8:32am take 1 tablet by mouth every twe lve hours Medrol 4 MG 1 tablet with food or milk Orally every 12 hrs prn Active vitamin b12 1 mg oral tablet (6 sources) Vitamin B12 Start: 11-04-2023 End: 02-23-2024 take 1000 ug by mouth every other day Cyanocobalamin (Vitamin B-12) Discontinued 1000 MCG PO .qod November 04, 2023 9:03am February 23, 2024 8:28am Start: 11-03-2023 End: 11-04-2023 take 1000 ug by mouth once daily Cyanocobalamin (Vitamin B-12) Discontinued 1000 MCG PO Daily November 03, 2023 4:14pm November 04, 2023 9:09am Start: 11-02-2023 End: 11-03-2023 take 1 tablet by mouth every other day Cyanocobalamin (Vitamin B-12) Discontinued 0 .ROUTE .COMPLEX 15 November 02, 2023 11:47am November 03, 2023 4:16pm TAKE 1 TABLET BY MOUTH EVERY OTHER DAY Problems Active Problems Problem Classification Problem Date Documented Da te Episodic/Chronic Abdominal hernia (7 sources) Obstructed incisional ventral hernia; Translations: [Other and unspecified ventral hernia with obstruction, without gangrene] Onset: 2 Episodic Administrative/social admission (20 sources) Dietary management surveillance; Translations: [Dietary counseling and surveillance] Episodic Anxiety disorders (19 sources) Mixed anxiety and depressive disorder; Translations: [Other specified anxiety disorders] Chronic Chronic obstructive pulmonary disease and bronchiectasis (20 sources) Chronic obstructive lung disease; Translations: [Chronic obstructive pulmonary disease, unspecified] Onset: 1 Resolved: 2 Chronic Deficiency and other anemia (2 sources) Anemia; Translations: [Anemia, unspecified] 11-04-2023 Episodic Deficiency and other anemia (2 sources) Anemia, unspecified; Translations: [Anemia, unspecified] 02-16-2024 Episodic Disorders of lipid metabolism (20 sources) Hyperlipidemia; [...] 2 Episodic Genitourinary symptoms and ill-defined conditions (19 sources) Biliuria; Translations: [Hematuria, unspecified] Onset: 1 Resolved: 2 Episodic Headache; including migraine (19 sources) Migraine; Translations: [Migraine, unspecified, not intractable, without status migrainosus] Chronic Malaise and fatigue (4 sources) Fatigue; Translations: [Other fatigue] 02-16-2024 Episodic Osteoarthritis (20 sources) Osteoarthritis; Translations: [Unspecified osteoarthritis, unspecified site] Onset: 3 02-04-2022 Chronic Osteoporosis (5 sources) Age-related osteoporosis without current pathological fracture; Translations: [AGE-REL OSTEOPOR W/O CURR PATH FX] Onset: 2 Chronic Other aftercare (5 sources) Other senior living (current) drug therapy; Translations: [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 Z79.899] Onset: 1 Resolved: 2 Episodic Other aftercare (2 sources) Patient encounter status; Translations: [Other senior living (current) drug therapy] 11-04-2023 Episodic Other bone disease and musculoskeletal deformities (1 source) Osteopenia 01-30-2022 Episodic Other ear and sense organ disorders (20 sources) Impacted cerumen; Translations: [Impacted cerumen, unspecified ear] 11-04-2023 Episodic Other ear and sense organ disorders (2 sources) Impacted cerumen, right ear Onset: 2 Resolved: 2 Episodic Other ear and sense organ disorders (2 sources) Impacted cerumen, unspecified ear Onset: 2 Resolved: 2 Episodic Other ear and sense organ disorders (1 source) Otalgia, left ear Episodic Other fractures (3 sources) Compression fracture of thoracic spine; Translations: [Collapsed vertebra, not elsewhere classified, thoracic region, initial encounter for fracture] 01-30-2022 Episodic Other fractures (12 sources) Pathological [...] sources) Constipation; Translations: [Constipation, unspecified] Episodic Other gastrointestinal disorders (2 sources) Diarrhea; Translations: [Diarrhea, unspecified] 02-16-2024 Episodic Other gastrointestinal disorders (2 sources) Diarrhea, unspecified; Translations: [Diarrhea] 02-16-2024 Episodic Other hematologic conditions (5 sources) Other specified diseases of blood and blood-forming organs; Translations: [Macrocytosis] Chronic Other hematologic conditions (2 sources) Macrocytosis; Translations: [Other specified diseases of blood and blood-forming organs] 11-04-2023 Chronic Other lower respiratory disease (19 sources) [...] on feet Episodic Other non-traumatic joint disorders (6 sources) Pain in unspecified joint; Translations: [Pain in joint, multiple sites] Onset: 1 Resolved: 2 Episodic Other non-traumatic joint disorders (2 sources) Multiple joint pain; Translations: [Pain in unspecified joint] 11-04-2023 Episodic Other non-traumatic joint disorders (5 sources) Pain in right knee; Translations: [Right knee pain] Onset: 4 02-15-2024 Episodic Other non-traumatic joint disorders (2 sources) Pain in left shoulder; Translations: [Left shoulder pain] 11-04-2023 Episodic Other nutritional; endocrine; and metabolic disorders [...] R63.5] Onset: 1 Resolved: 2 Episodic Other nutritional; endocrine; and metabolic disorders (2 sources) Weight loss; Translations: [Abnormal weight loss] 02-16-2024 Episodic Other nutritional; endocrine; and metabolic disorders (2 sources) Abnormal weight loss; Translations: [Loss of weight] 02-16-2024 Episodic Other upper respiratory disease (19 sources) Rhinitis; Translations: [Chronic rhinitis] Chronic Other upper respiratory disease (1 source) Other specified disorders of nose and nasal sinuses Episodic Residual codes; unclassified (19 sources) Insomnia; Translations: [Insomnia, unspecified] Episodic Residual codes; unclassified (5 sources) Edema, unspecified; Translations: [Edema R60.9] Onset: 1 Resolved: 2 Episodic Residual codes; unclassified (1 source) Edema of lower extremity 02-04-2022 Episodic Residual codes; unclassified (2 sources) Edema; Translations: [Edema, unspecified] 11-04-2023 Episodic Screening and history of mental health [...] sources) Systemic sclerosis, unspecified; Translations: [Scleroderma] Onset: Chronic Varicose veins of lower extremity (20 sources) Varicose veins of lower extremity; Translations: [Asymptomatic varicose veins of left lower extremity] 01-30-2022 Episodic Past or Other Problems Problem Classification Problem Date Documented Da te Episodic/Chronic Abdominal pain (6 sources) Epigastric pain; Translations: [...] Name Value Interpretation Reference Range Facility XR knee LT 2Von 02-23-2024 XR knee LT 2V [facility] [address] [place] [address] XRay Report Signed Patient: Genna Herrera MR#: [id number] 52 : 1950 Acct:[id number] Age/Sex: 73 / F ADM Date: 02/23/24 Loc[place] [facility] [place]: Type: [facility] Attending Dr: Domingo George DO Copies to: Domingo George DO Ordering Provider: Domingo George DO Date of Service: 02/23/24 XR/XR knee RT 4V*: M25.561 - Pain in right knee ([id number]) XR/XR knee LT 2V: needs weightbearing XR knee RT 4V*, XR knee LT 2V 02/23/2024 8:06 AM SIGNS AND SYMPTOMS: Right knee pain, history of multiple falls PROTOCOL: Frontal and sunrise views of the bilateral knees with lateral and oblique radiographs of the right knee COMPARISON: 02/15/2024 FINDINGS: There is mild narrowing of the medial weightbearing joint space of the right knee. The patellofemoral joint space is preserved. No joint effusion or soft tissue swelling. No fracture. XR/XR knee RT 4V* IMPRESSION: Mild degenerative changes are noted in the medial weightbearing joint space of the right knee. No acute bony injury. Impression dictated by: David Corley M.D.02/23/2024 10:01 AM Dictation Location: [place] [address] Transcribed By: [facility] [place] 02/23/24 1001 Dictated By: David Corley II, MD 02/23/24 0959 Signed By: 02/23/24 1001 Normal [facility] Urine Cultureon 02-16-2024 Bacteria identified Cx Nom (U) 20,000 colonies/ml mixed bacterial skin contaminants 2 Days PERFORMED BY: [place] [address] PATHOLOGIST NUT SORTER ROSYLN TALLEY M.D. Normal [facility] Comment on above: Performed By: #### C UU #### [address] Urine culture routineOrdered By: Casandra Chopra on 02-16-2024 Bacteria identified Cx Nom (U) 2 Days [facility] Basophils Auto (Bld) [#/Vol] on 02-10-2024 Basophils (Bld) [#/Vol] 0.1 10 3/uL 0.0-0.1 [facility] Basophils/100 WBC Auto (Bld) on 02-10-2024 Basophils/100 WBC (Bld) 1.6 % 0.2-2.0 [facility] Eosinophils/100 WBC Auto (Bl d)on 02-10-2024 Eosinophils/100 WBC (Bld) 1.8 % 0.9-7.0 [facility] Erythrocyte distribution wid th Auto (RBC) [Ratio]on 02-10-2024 Erythrocyte distribution width (RBC) [Ratio] 13.2 % 11.0-15.0 [facility] Estimated glomerular filtrat ion rate (GFR) non- Americanon 02-10-2024 GFR/1.73 sq M.predicted among non-blacks MDRD (S/P/Bld) [Vol rate/Area] mL/min/{1.73_m2} >=60 [facility] Fine granular cast count in urine sediment by microscopy (number/low power field )on 02-10-2024 Fine Granular Casts LM.LPF (Urine sed) [#/Area] RARE [facility] Globulin Calc (S) [Mass/Vol] on 02-10-2024 Globulin (S) [Mass/Vol] 3.1 g/dL [facility] Hematocrit Auto (Bld) [Volum e fraction]on 02-10-2024 Hematocrit (Bld) [Volume fraction] 38.7 % 36.0-48.0 [facility] Hemoglobin [Mass/volume] in Bloodon 02-10-2024 Hemoglobin (Bld) [Mass/Vol] 12.7 g/dL 12.0-16.0 [facility] Laboratory - Chemistry and C hemistry - challengeon 02-10-2024 Albumin [Mass/Vol] 3.8 g/dL 3.4-5.0 [facility] ALP [Catalytic activity/Vol] 42 U/L Low 46-116 [facility] ALT [Catalytic activity/Vol] 22 U/L 14-59 [facility] AST [Catalytic activity/Vol] 21 U/L 15-37 [facility] Bilirubin [Mass/Vol] 0.5 mg/dL 0.2-1.0 [facility] Calcium [Mass/Vol] 9.0 mg/dL 8.5-10.1 [facility] Chloride [Moles/Vol] 99 mmol/L 98-107 [facility] CO2 [Moles/Vol] 24.9 mmol/L 21.0-32.0 [facility] Creatinine [Mass/Vol] 0.80 mg/dL 0.55-1.02 [facility] GFR/1.73 sq M.predicted MDRD (S/P/Bld) [Vol rate/Area] mL/min/{1.73_m2} >=60 [facility] Glucose [Mass/Vol] 85 mg/dL 74-106 [facility] Potassium [Moles/Vol] 4.2 mmol/L 3.5-5.1 [facility] Protein [Mass/Vol] 6.9 g/dL 6.4-8.2 [facility] Sodium [Moles/Vol] 136 mmol/L 136-145 [facility] Urea nitrogen [Mass/Vol] 15.0 mg/dL 7.0-18.0 [facility] Urea nitrogen/Creatinine [Mass ratio] 18.8 mg/mg [facility] Bilirubin Ql (U) MODERATE Abnormal NEGATIVE [facility] Glucose (U) [Mass/Vol] Negative NEGATIVE [facility] Ketones Ql (U) Negative NEGATIVE [facility] pH (U) 7.0 [pH] 5.0-9.0 [facility] Specific gravity (U) [Rel density] 1.010 1.005-1.025 [facility] Urobilinogen Qn (U) 0.2 {Paul'U}/dL 0.2-1.0 [facility] Laboratory - Hematology and Cell countson 02-10-2024 ESR (Bld) [Velocity] 73 mm/h High <=30 [facility] Immature granulocytes/100 WBC (Bld) 0.2 % 0.0-0.5 [facility] Laboratory - Specimen inform ationon 02-10-2024 Appearance (U) CLEAR CLEAR [facility] Color (U) LT. YELLOW YELLOW [facility] Laboratory - Urinalysison Leukocyte esterase Test strip Ql (U) MODERATE Abnormal NEGATIVE [facility] Mucus Ql (Urine sed) TRACE Abnormal NONE SEEN [facility] Nitrite Ql (U) Negative NEGATIVE [facility] Protein Ql (U) Negative NEG/TRACE [facility] Leukocytes [#/volume] correc sandip for nucleated erythrocytes in Blood by Automated counon 02-10-2024 WBC corrected for nucl RBC Auto (Bld) [#/Vol] 5.7 10 3/uL 4.0-11.0 [facility] Lymphocytes Auto (Bld) [#/Vo l]on 02-10-2024 Lymphocytes (Bld) [#/Vol] 1.0 10 3/uL Low 1.2-3.8 [facility] Lymphocytes/100 WBC Auto (Bl d)on 02-10-2024 Lymphocytes/100 WBC (Bld) 17.1 % Low 20.5-60.0 [facility] MCH Auto (RBC) [Entitic mass ]on 02-10-2024 MCH (RBC) [Entitic mass] 31.1 pg 26.7-34.0 [facility] MCHC Auto (RBC) [Mass/Vol]on 02-10-2024 MCHC (RBC) [Mass/Vol] 32.8 g/dL 29.9-35.2 [facility] MCV Auto (RBC) [Entitic vol] on 02-10-2024 MCV (RBC) [Entitic vol] 94.6 fL 81.0-99.0 [facility] Monocytes Auto (Bld) [#/Vol] on 02-10-2024 Monocytes (Bld) [#/Vol] 0.5 10 3/uL 0.3-0.8 [facility] Monocytes/100 WBC Auto (Bld) on 02-10-2024 Monocytes/100 WBC (Bld) 8.3 % 1.7-12.0 [facility] Neutrophils Auto (Bld) [#/Vo l]on 02-10-2024 Neutrophils (Bld) [#/Vol] 4.0 10 3/uL 1.4-6.5 [facility] Neutrophils/100 WBC Auto (Bl d)on 02-10-2024 Neutrophils/100 WBC (Bld) 71.0 % 43.0-75.0 [facility] No Panel Informationon 02-09 Eosinophils # (Auto) 0.1 10 3/uL 0.0-0.7 [facility] Immature Granulocyte # (Auto) 0.01 10 3/uL 0.00-0.03 [facility] Total Complement (CH50) >60 U/mL >41 [facility] Comment on above: Age Male Female 1 - 30 days [...] table above to determine out of range values.Performed at: [facility] [address] [id number] Director: Santiago Madrid PhD, Phone: [phone] Urine Bacteria SMALL #/HPF Abnormal NONE SEEN [facility] Urine Occult Blood Negative NEGATIVE [facility] Urine Other Casts SEEN #/LPF Abnormal NONE SEEN [facility] Urine Other Crystals None Seen #/HPF None Seen [facility] Urine RBC 0-2 #/HPF 0-2 [facility] Urine Renal Epithelial Cells FEW #/LPF Abnormal NONE SEEN [facility] Urine Squamous Epithelial Cells MODERATE #/LPF Abnormal NONE/RARE [facility] Urine WBC 10-20 #/HPF Abnormal NONE SEEN [facility] Platelet mean volume Auto (B ld) [Entitic vol]on 02-10-2024 Platelet mean volume (Bld) [Entitic vol] 9.1 fL Low 9.5-13.5 [facility] Platelets Auto (Bld) [#/Vol] on 02-10-2024 Platelets (Bld) [#/Vol] 195 10 3/uL 150-450 [facility] RBC Auto (Bld) [#/Vol]on RBC (Bld) [#/Vol] 4.09 10 6/uL Low 4.20-5.40 [facility] Serum or plasma albumin/glob ulin mass ratioon 02-10-2024 Albumin/Globulin [Mass ratio] 1.2 {ratio} [facility] Serum or plasma anion gap de terminationon 02-10-2024 Anion gap [Moles/Vol] 16.3 mmol/L [facility] Serum or plasma complement C 3 measurement (mass/volume)on 02-10-2024 Complement C3 [Mass/Vol] 129 mg/dL 82-167 [facility] Serum or plasma complement C 4 measurement (mass/volume)on 02-10-2024 Complement C4 [Mass/Vol] 22 mg/dL 12-38 [facility] Comment on above: Performed at: - [facility] [address] [id number] Director: Santiago Madrid PhD, Phone: [phone] Basophils Auto (Bld) [#/Vol] on 01-25-2024 Basophils (Bld) [#/Vol] 0.1 10 3/uL 0.0-0.1 [facility] Basophils/100 WBC Auto (Bld) on 01-25-2024 Basophils/100 WBC (Bld) 1.5 % 0.2-2.0 [facility] Eosinophils/100 WBC Auto (Bl d)on 01-25-2024 Eosinophils/100 WBC (Bld) 1.7 % 0.9-7.0 [facility] Erythrocyte distribution wid th Auto (RBC) [Ratio]on 01-25-2024 Erythrocyte distribution width (RBC) [Ratio] 13.4 % 11.0-15.0 [facility] Estimated glomerular filtrat ion rate (GFR) non- Americanon 01-25-2024 GFR/1.73 sq M.predicted among non-blacks MDRD (S/P/Bld) [Vol rate/Area] mL/min/{1.73_m2} >=60 [facility] Globulin Calc (S) [Mass/Vol] on 01-25-2024 Globulin (S) [Mass/Vol] 3.5 g/dL [facility] Hematocrit Auto (Bld) [Volum e fraction]on 01-25-2024 Hematocrit (Bld) [Volume fraction] 40.6 % 36.0-48.0 [facility] Hemoglobin [Mass/volume] in Bloodon 01-25-2024 Hemoglobin (Bld) [Mass/Vol] 12.9 g/dL 12.0-16.0 [facility] Laboratory - Chemistry and C hemistry - challengeon 01-25-2024 Albumin [Mass/Vol] 3.8 g/dL 3.4-5.0 [facility] ALP [Catalytic activity/Vol] 43 U/L Low 46-116 [facility] ALT [Catalytic activity/Vol] 24 U/L 14-59 [facility] AST [Catalytic activity/Vol] 20 U/L 15-37 [facility] Bilirubin [Mass/Vol] 0.5 mg/dL 0.2-1.0 [facility] Calcium [Mass/Vol] 9.0 mg/dL 8.5-10.1 [facility] Chloride [Moles/Vol] 103 mmol/L 98-107 [facility] CO2 [Moles/Vol] 28.8 mmol/L 21.0-32.0 [facility] Creatinine [Mass/Vol] 0.78 mg/dL 0.55-1.02 [facility] GFR/1.73 sq M.predicted MDRD (S/P/Bld) [Vol rate/Area] mL/min/{1.73_m2} >=60 [facility] Glucose [Mass/Vol] 91 mg/dL 74-106 [facility] Potassium [Moles/Vol] 4.4 mmol/L 3.5-5.1 [facility] Protein [Mass/Vol] 7.3 g/dL 6.4-8.2 [facility] Sodium [Moles/Vol] 139 mmol/L 136-145 [facility] Urea nitrogen [Mass/Vol] 17.0 mg/dL 7.0-18.0 [facility] Urea nitrogen/Creatinine [Mass ratio] 21.8 mg/mg [facility] Bilirubin Ql (U) MODERATE Abnormal NEGATIVE [facility] Glucose (U) [Mass/Vol] Negative NEGATIVE [facility] Ketones Ql (U) Negative NEGATIVE [facility] pH (U) 7.0 [pH] 5.0-9.0 [facility] Specific gravity (U) [Rel density] 1.015 1.005-1.025 [facility] Urobilinogen Qn (U) 0.2 {Paul'U}/dL 0.2-1.0 [facility] Laboratory - Hematology and Cell countson 01-25-2024 ESR (Bld) [Velocity] 72 mm/h High <=30 [facility] Immature granulocytes/100 WBC (Bld) 0.3 % 0.0-0.5 [facility] Laboratory - Specimen inform ationon 01-25-2024 Appearance (U) CLOUDY Abnormal CLEAR [facility] Color (U) LT. YELLOW YELLOW [facility] Laboratory - Urinalysison Leukocyte esterase Test strip Ql (U) LARGE Abnormal NEGATIVE [facility] Mucus Ql (Urine sed) NONE SEEN NONE SEEN [facility] Nitrite Ql (U) Negative NEGATIVE [facility] Protein Ql (U) Negative NEG/TRACE [facility] Leukocytes [#/volume] correc sandip for nucleated erythrocytes in Blood by Automated counon 01-25-2024 WBC corrected for nucl RBC Auto (Bld) [#/Vol] 5.9 10 3/uL 4.0-11.0 [facility] Lymphocytes Auto (Bld) [#/Vo l]on 01-25-2024 Lymphocytes (Bld) [#/Vol] 1.3 10 3/uL 1.2-3.8 [facility] Lymphocytes/100 WBC Auto (Bl d)on 01-25-2024 Lymphocytes/100 WBC (Bld) 21.3 % 20.5-60.0 [facility] MCH Auto (RBC) [Entitic mass ]on 01-25-2024 MCH (RBC) [Entitic mass] 30.5 pg 26.7-34.0 [facility] MCHC Auto (RBC) [Mass/Vol]on 01-25-2024 MCHC (RBC) [Mass/Vol] 31.8 g/dL 29.9-35.2 [facility] MCV Auto (RBC) [Entitic vol] on 01-25-2024 MCV (RBC) [Entitic vol] 96.0 fL 81.0-99.0 [facility] Monocytes Auto (Bld) [#/Vol] on 01-25-2024 Monocytes (Bld) [#/Vol] 0.6 10 3/uL 0.3-0.8 [facility] Monocytes/100 WBC Auto (Bld) on 01-25-2024 Monocytes/100 WBC (Bld) 9.3 % 1.7-12.0 [facility] Neutrophils Auto (Bld) [#/Vo l]on 01-25-2024 Neutrophils (Bld) [#/Vol] 3.9 10 3/uL 1.4-6.5 [facility] Neutrophils/100 WBC Auto (Bl d)on 01-25-2024 Neutrophils/100 WBC (Bld) 65.9 % 43.0-75.0 [facility] No Panel Informationon 01-24 Eosinophils # (Auto) 0.1 10 3/uL 0.0-0.7 [facility] Immature Granulocyte # (Auto) 0.02 10 3/uL 0.00-0.03 [facility] Total Complement (CH50) >60 U/mL >41 [facility] Comment on above: Age Male Female 1 - 30 days [...] table above to determine out of range values.Performed at: [facility] [address] [id number] Director: Santiago Madrid PhD, Phone: [phone] Urine Bacteria LARGE #/HPF Abnormal NONE SEEN [facility] Urine Occult Blood Negative NEGATIVE [facility] Urine Other Casts NONE SEEN #/LPF NONE SEEN [facility] Urine Other Crystals None Seen #/HPF None Seen [facility] Urine RBC 0-2 #/HPF 0-2 [facility] Urine Squamous Epithelial Cells MANY #/LPF Abnormal NONE/RARE [facility] Urine Transitional Epithelial Cells FEW #/LPF Abnormal NONE SEEN [facility] Urine WBC 75-100 #/HPF Abnormal NONE SEEN [facility] Platelet mean volume Auto (B ld) [Entitic vol]on 01-25-2024 Platelet mean volume (Bld) [Entitic vol] 9.2 fL Low 9.5-13.5 [facility] Platelets Auto (Bld) [#/Vol] on 01-25-2024 Platelets (Bld) [#/Vol] 208 10 3/uL 150-450 [facility] RBC Auto (Bld) [#/Vol]on RBC (Bld) [#/Vol] 4.23 10 6/uL 4.20-5.40 [facility] Serum or plasma albumin/glob ulin mass ratioon 01-25-2024 Albumin/Globulin [Mass ratio] 1.1 {ratio} [facility] Serum or plasma anion gap de terminationon 01-25-2024 Anion gap [Moles/Vol] 11.6 mmol/L [facility] Serum or plasma complement C 3 measurement (mass/volume)on 01-25-2024 Complement C3 [Mass/Vol] 133 mg/dL 82-167 [facility] Serum or plasma complement C 4 measurement (mass/volume)on 01-25-2024 Complement C4 [Mass/Vol] 22 mg/dL 12-38 [facility] Comment on above: Performed at: [address] [id number] Director: Santiago Madrid PhD, Phone: [phone] Basophils Auto (Bld) [#/Vol] on 12-04-2023 Basophils (Bld) [#/Vol] 0.1 10 3/uL 0.0-0.1 [facility] Basophils/100 WBC Auto (Bld) on 12-04-2023 Basophils/100 WBC (Bld) 1.7 % 0.2-2.0 [facility] Eosinophils/100 WBC Auto (Bl d)on 12-04-2023 Eosinophils/100 WBC (Bld) 2.0 % 0.9-7.0 [facility] Erythrocyte distribution wid th Auto (RBC) [Ratio]on 12-04-2023 Erythrocyte distribution width (RBC) [Ratio] 13.3 % 11.0-15.0 [facility] Hematocrit Auto (Bld) [Volum e fraction]on 12-04-2023 Hematocrit (Bld) [Volume fraction] 37.8 % 36.0-48.0 [facility] Hemoglobin [Mass/volume] in Bloodon 12-04-2023 Hemoglobin (Bld) [Mass/Vol] 12.0 g/dL 12.0-16.0 [facility] Laboratory - Hematology and Cell countson 12-04-2023 Immature granulocytes/100 WBC (Bld) 0.2 % 0.0-0.5 [facility] Leukocytes [#/volume] correc sandip for nucleated erythrocytes in Blood by Automated counon 12-04-2023 WBC corrected for nucl RBC Auto (Bld) [#/Vol] 6.0 10 3/uL 4.0-11.0 [facility] Lymphocytes Auto (Bld) [#/Vo l]on 12-04-2023 Lymphocytes (Bld) [#/Vol] 1.1 10 3/uL Low 1.2-3.8 [facility] Lymphocytes/100 WBC Auto (Bl d)on 12-04-2023 Lymphocytes/100 WBC (Bld) 18.2 % Low 20.5-60.0 [facility] MCH Auto (RBC) [Entitic mass ]on 12-04-2023 MCH (RBC) [Entitic mass] 30.5 pg 26.7-34.0 [facility] MCHC Auto (RBC) [Mass/Vol]on 12-04-2023 MCHC (RBC) [Mass/Vol] 31.7 g/dL 29.9-35.2 [facility] MCV Auto (RBC) [Entitic vol] on 12-04-2023 MCV (RBC) [Entitic vol] 95.9 fL 81.0-99.0 [facility] Monocytes Auto (Bld) [#/Vol] on 12-04-2023 Monocytes (Bld) [#/Vol] 0.6 10 3/uL 0.3-0.8 [facility] Monocytes/100 WBC Auto (Bld) on 12-04-2023 Monocytes/100 WBC (Bld) 10.3 % 1.7-12.0 [facility] Neutrophils Auto (Bld) [#/Vo l]on 12-04-2023 Neutrophils (Bld) [#/Vol] 4.1 10 3/uL 1.4-6.5 [facility] Neutrophils/100 WBC Auto (Bl d)on 12-04-2023 Neutrophils/100 WBC (Bld) 67.6 % 43.0-75.0 [facility] No Panel Informationon 12-03 Eosinophils # (Auto) 0.1 10 3/uL 0.0-0.7 [facility] Immature Granulocyte # (Auto) 0.01 10 3/uL 0.00-0.03 [facility] Platelet mean volume Auto (B ld) [Entitic vol]on 12-04-2023 Platelet mean volume (Bld) [Entitic vol] 9.2 fL Low 9.5-13.5 [facility] Platelets Auto (Bld) [#/Vol] on 12-04-2023 Platelets (Bld) [#/Vol] 193 10 3/uL 150-450 [facility] RBC Auto (Bld) [#/Vol]on RBC (Bld) [#/Vol] 3.94 10 6/uL Low 4.20-5.40 [facility] CT LUNG CANCER SCREENINGon 0 [...] MARII TURCIOS Date: 2022-12-03 08:20 Normal [facility] CBC AUTO DIFFon 10-22-2022 BASO # 0.1 103/ul Normal 0.0-0.1 [facility] Comment on above: Performed By: #### C BC #### [facility] [address] [address] [address] Renato Weller Basophils/100 WBC (Bld) 1.5 % Normal 0.2-2.0 [facility] Comment on above: Performed By: #### C BC #### [facility] [address] [address] [address] Renato Weller EO # 0.1 103/ul Normal 0.0-0.7 [facility] Comment on above: Performed By: #### C BC #### [facility] [address] [place] [address] Dr. Renato Weller Eosinophils/100 WBC (Bld) 1.4 % Normal 0.9-7.0 [facility] Comment on above: Performed By: #### C BC #### [facility] [address] [address] [address] Renato Weller Erythrocyte distribution width (RBC) [Ratio] 13.4 % Normal 11.0-15.0 [facility] Comment on above: Performed By: #### C BC #### [facility] [address] [place] [address] Dr. Renato Weller Hematocrit (Bld) [Volume fraction] 40.8 % Normal 36.0-48.0 [facility] Comment on above: Performed By: #### C BC #### [facility] [address] [place] [address] Dr. Renato Weller Hemoglobin (Bld) [Mass/Vol] 12.9 g/dL Normal 12.0-16.0 [facility] Comment on above: Performed By: #### C BC #### [facility] [address] [place] [address] Dr. Renato Weller IG # 0.01 10e3/ul Normal 0.00-0.03 [facility] Comment on above: Performed By: #### C BC #### [facility] [address] [place] [address] Dr. Renato Weller IG % 0.2 % Normal 0.0-0.5 [facility] Comment on above: Performed By: #### C BC #### [facility] [address] [place] [address] Dr. Renato Weller LYMPH # 1.0 103/ul Critically low 1.2-3.8 [facility] Comment on above: Performed By: #### C BC #### [facility] [address] [place] [address] Dr. Renato Weller Lymphocytes/100 WBC (Bld) 16.2 % Critically low 20.5-60.0 [facility] Comment on above: Performed By: #### C BC #### [facility] [address] [place] [address] Dr. Renato Weller MANUAL DIFF REQ NO Normal [facility] Comment on above: Performed By: #### C BC #### [facility] [address] [place] [address] Dr. Renato Weller MCH (RBC) [Entitic mass] 30.2 pg Normal 26.7-34.0 [facility] Comment on above: Performed By: #### C BC #### [facility] [address] [place] [address] Dr. Renato Weller MCHC (RBC) [Mass/Vol] 31.6 g/dL Normal 29.9-35.2 [facility] Comment on above: Performed By: #### C BC #### [facility] [address] [place] [address] Dr. Renato Weller MCV (RBC) [Entitic vol] 95.6 fL Normal 81.0-99.0 [facility] Comment on above: Performed By: #### C BC #### [facility] [address] [place] [address] Dr. Renato Welelr MONO # 0.5 103/ul Normal 0.3-0.8 [facility] Comment on above: Performed By: #### C BC #### [facility] [address] [place] [address] Dr. Renato Weller Monocytes/100 WBC (Bld) 8.2 % Normal 1.7-12.0 [facility] Comment on above: Performed By: #### C BC #### [facility] [address] [place] [address] Dr. Renato Weller NEUT # 4.3 103/ul Normal 1.4-6.5 [facility] Comment on above: Performed By: #### C BC #### [facility] [address] [place] [address] Dr. Renato Weller Neutrophils/100 WBC (Bld) 72.5 % Normal 43.0-75.0 [facility] Comment on above: Performed By: #### C BC #### [facility] [address] [place] [address] Dr. Renato Weller Platelet mean volume (Bld) [Entitic vol] 9.4 fL Critically low 9.5-13.5 [facility] Comment on above: Performed By: #### C BC #### [facility] [address] [place] [address] Dr. Renato Weller PLT 206 103/ul Normal 150-450 [facility] Comment on above: Performed By: #### C BC #### [facility] [address] [place] [address] Dr. Renato Weller RBC 4.27 106/ul Normal 4.20-5.40 [facility] Comment on above: Performed By: #### C BC #### [facility] [address] [place] [address] Dr. Renato Weller WBC 5.9 103/ul Normal 4.0-11.0 [facility] Comment on above: Performed By: #### C BC #### [facility] [address] [place] [address] Dr. Renato Weller LIPID PROFILEon 10-22-2022 CHOL-HDL RATIO NORM SEE BELOW Normal [facility] Comment on above: Result Comment: 3.3 - 4.4 LOW RISK 4.4 - 7.1 AVERAGE RISK 7.1 - 11.0 MODERATE RISK >11.0 HIGH RISK Performed By: #### L IPID, CMP #### [facility] [address] [address] [address] Renato Weller Cholesterol [Mass/Vol] 162 mg/dL Normal <=200 [facility] Comment on above: Performed By: #### L IPID, CMP #### [facility] [address] [address] [address] Renato Weller Cholesterol in HDL [Mass/Vol] 69 mg/dL Critically high 40-60 [facility] Comment on above: Performed By: #### L IPID, CMP #### [facility] [address] [address] [address] Renato Weller Cholesterol in LDL [Mass/Vol] 81.8 mg/dL Normal [facility] Comment on above: Performed By: #### L IPID, CMP #### [facility] [address] [address] [address] Renato Weller Cholesterol.total/C holesterol in HDL [Mass ratio] 2.3 {ratio} Normal [facility] Comment on above: Performed By: #### L IPID, CMP #### [facility] [address] [address] [address] Renato Weller HDL NORMAL > or = 60 mg/dl - LO W CARDIOVASCULAR RISK <40 mg/dl - HIGH CARDIOVASCULAR RISK Normal [facility] Comment on above: Performed By: #### L IPID, CMP #### [facility] [address] [address] [address] Renato Weller LDL CALC NORMAL SEE BELOW Normal [facility] Comment on above: Result Comment: <100 mg/dl OPTIMAL 100 - 129 mg/dl NEAR OR ABOVE OPTIMAL 130 - 159 mg/dl BORDERLINE HIGH 160 - 189 mg/dl HIGH >190 mg/dl VERY HIGH Performed By: #### L IPID, CMP #### [facility] [address] [address] [address] Renato Weller Triglyceride [Mass/Vol] 56 mg/dL Normal <=150 [facility] Comment on above: Performed By: #### L IPID, CMP #### [facility] [address] [address] [address] Renato Weller VLDL CALC 11.2 mg/dL Normal [facility] Comment on above: Performed By: #### L IPID, CMP #### [facility] [address] [place] [address] Dr. Renato Weller PROF 14(COMP METB)on 023 Albumin [Mass/Vol] 3.7 g/dL Normal 3.4-5.0 [facility] Comment on above: Performed By: #### L IPID, CMP #### [facility] [address] [place] [address] Dr. Renato Weller Albumin/Globulin [Mass ratio] 1.1 {ratio} Normal [facility] Comment on above: Performed By: #### L IPID, CMP #### [facility] [address] [place] [address] Dr. Renato Weller ALP [Catalytic activity/Vol] 36 U/L Critically low 46-116 [facility] Comment on above: Performed By: #### L IPID, CMP #### [facility] [address] [place] [address] Dr. Renato Weller ALT [Catalytic activity/Vol] 24 U/L Normal 14-59 [facility] Comment on above: Performed By: #### L IPID, CMP #### [facility] [address] [place] [address] Dr. Renato Weller Anion gap [Moles/Vol] 12.2 mmol/L Normal [facility] Comment on above: Performed By: #### L IPID, CMP #### [facility] [address] [place] [address] Dr. Renato Weller AST [Catalytic activity/Vol] 18 U/L Normal 15-37 [facility] Comment on above: Performed By: #### L IPID, CMP #### [facility] [address] [place] [address] Dr. Renato Weller Bilirubin [Mass/Vol] 0.3 mg/dL Normal 0.2-1.0 [facility] Comment on above: Performed By: #### L IPID, CMP #### [facility] [address] [place] [address] Dr. Renato Weller Calcium [Mass/Vol] 9.0 mg/dL Normal 8.5-10.1 [facility] Comment on above: Performed By: #### L IPID, CMP #### [facility] [address] [place] [address] Dr. Renato Weller Chloride [Moles/Vol] 102 mmol/L Normal 98-107 [facility] Comment on above: Performed By: #### L IPID, CMP #### [facility] [address] [place] [address] Dr. Renato Weller CO2 [Moles/Vol] 29.1 mmol/L Normal 21.0-32.0 [facility] Comment on above: Performed By: #### L IPID, CMP #### [facility] [address] [place] [address] Dr. Renato Weller Creatinine [Mass/Vol] 0.83 mg/dL Normal 0.55-1.02 [facility] Comment on above: Performed By: #### L IPID, CMP #### [facility] [address] [place] [address] Dr. Renato Weller EGFR-AF GEORGIAN >60 Normal >=60 [facility] Comment on above: Performed By: #### L IPID, CMP #### [facility] [address] [place] [address] Dr. Renato Weller EGFR-NON AF GEORGIAN >60 Normal >=60 [facility] Comment on above: Performed By: #### L IPID, CMP #### [facility] [address] [place] [address] Dr. Renato Weller Globulin (S) [Mass/Vol] 3.5 g/dL Normal [facility] Comment on above: Performed By: #### L IPID, CMP #### [facility] [address] [place] [address] Dr. Renato Weller Glucose [Mass/Vol] 85 mg/dL Normal 74-106 [facility] Comment on above: Performed By: #### L IPID, CMP #### [facility] [address] [place] [address] Dr. Renato Weller Potassium [Moles/Vol] 4.3 mmol/L Normal 3.5-5.1 [facility] Comment on above: Performed By: #### L IPID, CMP #### [facility] [address] [place] [address] Dr. Renato Weller Protein [Mass/Vol] 7.2 g/dL Normal 6.4-8.2 [facility] Comment on above: Performed By: #### L IPID, CMP #### [facility] [address] [place] [address] Dr. Renato Weller Sodium [Moles/Vol] 139 mmol/L Normal 136-145 [facility] Comment on above: Performed By: #### L IPID, CMP #### [facility] [address] [place] [address] Dr. Renato Weller Urea nitrogen [Mass/Vol] 14.0 mg/dL Normal 7.0-18.0 [facility] Comment on above: Performed By: #### L IPID, CMP #### [facility] [address] [place] [address] Dr. Renato Weller Urea nitrogen/Creatinine [Mass ratio] 16.9 mg/mg Normal [facility] Comment on above: Performed By: #### L IPID, CMP #### [facility] [address] [place] [address] Dr. Renato Weller C3 and C4 COMPLEMENTon 08-19 Complement C3, Serum 110 mg/dL Normal 82-167 [facility] Comment on above: Performed By: #### U AMIC #### [facility] [address] [place] [address] Dr. Renato Weller Complement C4, Serum 20 mg/dL Normal 12-38 [facility] Comment on above: Performed By: #### U AMIC #### [facility] [address] [place] [address] Dr. Renato Weller COMPLEMENT TOTAL (CH50)on Complement, Total (CH50) >60 Normal >41 [facility] Comment on above: Result Comment: [...] values. Performed By: #### C H50T #### [facility] [address] [place] [address] Dr. Renato Weller CBC AUTO DIFFon 08-18-2022 BASO # 0.1 103/ul Normal 0.0-0.1 [facility] Comment on above: Performed By: #### C H50T #### [facility] [address] [place] [address] Dr. Renato Weller Basophils/100 WBC (Bld) 1.8 % Normal 0.2-2.0 [facility] Comment on above: Performed By: #### C H50T #### [facility] [address] [place] [address] Dr. Renato Weller EO # 0.1 103/ul Normal 0.0-0.7 [facility] Comment on above: Performed By: #### C H50T #### [facility] [address] [place] [address] Dr. Renato Weller Eosinophils/100 WBC (Bld) 1.8 % Normal 0.9-7.0 [facility] Comment on above: Performed By: #### C H50T #### [facility] [address] [place] [address] Dr. Renato Weller Erythrocyte distribution width (RBC) [Ratio] 13.2 % Normal 11.0-15.0 [facility] Comment on above: Performed By: #### C H50T #### [facility] [address] [place] [address] Dr. Renato Weller Hematocrit (Bld) [Volume fraction] 39.9 % Normal 36.0-48.0 [facility] Comment on above: Performed By: #### C H50T #### [facility] [address] [place] [address] Dr. Renato Weller Hemoglobin (Bld) [Mass/Vol] 13.2 g/dL Normal 12.0-16.0 [facility] Comment on above: Performed By: #### C H50T #### [facility] [address] [place] [address] Dr. Renato Weller IG # 0.02 10e3/ul Normal 0.00-0.03 [facility] Comment on above: Performed By: #### C H50T #### [facility] [address] [place] [address] Dr. Renato Weller IG % 0.4 % Normal 0.0-0.5 [facility] Comment on above: Performed By: #### C H50T #### [facility] [address] [place] [address] Dr. Renato Weller LYMPH # 1.1 103/ul Critically low 1.2-3.8 [facility] Comment on above: Performed By: #### C H50T #### [facility] [address] [place] [address] Dr. Renato Weller Lymphocytes/100 WBC (Bld) 18.4 % Critically low 20.5-60.0 [facility] Comment on above: Performed By: #### C H50T #### [facility] [address] [place] [address] Dr. Renato Weller MANUAL DIFF REQ NO Normal [facility] Comment on above: Performed By: #### C H50T #### [facility] [address] [address] [address] Renato Weller MCH (RBC) [Entitic mass] 31.0 pg Normal 26.7-34.0 [facility] Comment on above: Performed By: #### C H50T #### [facility] [address] [place] [address] Dr. Renato Weller MCHC (RBC) [Mass/Vol] 33.1 g/dL Normal 29.9-35.2 [facility] Comment on above: Performed By: #### C H50T #### [facility] [address] [address] [address] Renato Weller MCV (RBC) [Entitic vol] 93.7 fL Normal 81.0-99.0 [facility] Comment on above: Performed By: #### C H50T #### [facility] [address] [place] [address] Dr. Renato Weller MONO # 0.5 103/ul Normal 0.3-0.8 [facility] Comment on above: Performed By: #### C H50T #### [facility] [address] [place] [address] Dr. Renato Weller Monocytes/100 WBC (Bld) 8.6 % Normal 1.7-12.0 [facility] Comment on above: Performed By: #### C H50T #### [facility] [address] [place] [address] Dr. Renato Weller NEUT # 3.9 103/ul Normal 1.4-6.5 [facility] Comment on above: Performed By: #### C H50T #### [facility] [address] [place] [address] Dr. Renato Weller Neutrophils/100 WBC (Bld) 69.0 % Normal 43.0-75.0 [facility] Comment on above: Performed By: #### C H50T #### [facility] [address] [place] [address] Dr. Renato Weller Platelet mean volume (Bld) [Entitic vol] 9.4 fL Critically low 9.5-13.5 [facility] Comment on above: Performed By: #### C H50T #### [facility] [address] [place] [address] Dr. Renato Weller PLT 191 103/ul Normal 150-450 [facility] Comment on above: Performed By: #### C H50T #### [facility] [address] [place] [address] Dr. Renato Weller RBC 4.26 106/ul Normal 4.20-5.40 [facility] Comment on above: Performed By: #### C H50T #### [facility] [address] [place] [address] Dr. Renato Weller WBC 5.7 103/ul Normal 4.0-11.0 [facility] Comment on above: Performed By: #### C H50T #### [facility] [address] [place] [address] Dr. Renato Weller MAGNESIUMon 08-18-2022 Magnesium [Mass/Vol] 2.1 mg/dL Normal 1.8-2.4 [facility] Comment on above: Performed By: #### L IPID, CMP #### [facility] [address] [place] [address] Dr. Renato Weller PHOSPHORUSon 08-18-2022 Phosphate [Mass/Vol] 3.5 mg/dL Normal 2.6-4.7 [facility] Comment on above: Performed By: #### L IPID, CMP #### [facility] [address] [place] [address] Dr. Renato Weller PROF 14(COMP METB)on 023 Albumin [Mass/Vol] 3.7 g/dL Normal 3.4-5.0 [facility] Comment on above: Performed By: #### L IPID, CMP #### [facility] [address] [place] [address] Dr. Renato Weller Albumin/Globulin [Mass ratio] 1.2 {ratio} Normal [facility] Comment on above: Performed By: #### L IPID, CMP #### [facility] [address] [place] [address] Dr. Renato Weller ALP [Catalytic activity/Vol] 37 U/L Critically low 46-116 [facility] Comment on above: Performed By: #### L IPID, CMP #### [facility] [address] [place] [address] Dr. Renato Weller ALT [Catalytic activity/Vol] 18 U/L Normal 14-59 [facility] Comment on above: Performed By: #### L IPID, CMP #### [facility] [address] [place] [address] Dr. Renato Weller Anion gap [Moles/Vol] 13.5 mmol/L Normal [facility] Comment on above: Performed By: #### L IPID, CMP #### [facility] [address] [address] [address] Renato Weller AST [Catalytic activity/Vol] 19 U/L Normal 15-37 [facility] Comment on above: Performed By: #### L IPID, CMP #### [facility] [address] [place] [address] Dr. Renato Weller Bilirubin [Mass/Vol] 0.4 mg/dL Normal 0.2-1.0 [facility] Comment on above: Performed By: #### L IPID, CMP #### [facility] [address] [place] [address] Dr. Renato Wellre Calcium [Mass/Vol] 8.7 mg/dL Normal 8.5-10.1 [facility] Comment on above: Performed By: #### L IPID, CMP #### [facility] [address] [place] [address] Dr. Renato Weller Chloride [Moles/Vol] 104 mmol/L Normal 98-107 [facility] Comment on above: Performed By: #### L IPID, CMP #### [facility] [address] [place] [address] Dr. Renato Weller CO2 [Moles/Vol] 27.8 mmol/L Normal 21.0-32.0 [facility] Comment on above: Performed By: #### L IPID, CMP #### [facility] [address] [place] [address] Dr. Renato Weller Creatinine [Mass/Vol] 0.67 mg/dL Normal 0.55-1.02 [facility] Comment on above: Performed By: #### L IPID, CMP #### [facility] [address] [place] [address] Dr. Renato Weller EGFR-AF GEORGIAN >60 Normal >=60 [facility] Comment on above: Performed By: #### L IPID, CMP #### [facility] [address] [place] [address] Dr. Renato Weller EGFR-NON AF GEORGIAN >60 Normal >=60 [facility] Comment on above: Performed By: #### L IPID, CMP #### [facility] [address] [place] [address] Dr. Renato Weller Globulin (S) [Mass/Vol] 3.0 g/dL Normal [facility] Comment on above: Performed By: #### L IPID, CMP #### [facility] [address] [place] [address] Dr. Renato Weller Glucose [Mass/Vol] 87 mg/dL Normal 74-106 [facility] Comment on above: Performed By: #### L IPID, CMP #### [facility] [address] [place] [address] Dr. Renato Weller Potassium [Moles/Vol] 4.3 mmol/L Normal 3.5-5.1 [facility] Comment on above: Performed By: #### L IPID, CMP #### [facility] [address] [place] [address] Dr. Renato Weller Protein [Mass/Vol] 6.7 g/dL Normal 6.4-8.2 [facility] Comment on above: Performed By: #### L IPID, CMP #### [facility] [address] [place] [address] Dr. Renato Weller Sodium [Moles/Vol] 141 mmol/L Normal 136-145 [facility] Comment on above: Performed By: #### L IPID, CMP #### [facility] [address] [place] [address] Dr. Renato Weller Urea nitrogen [Mass/Vol] 11.0 mg/dL Normal 7.0-18.0 [facility] Comment on above: Performed By: #### L IPID, CMP #### [facility] [address] [place] [address] Dr. Renato Weller Urea nitrogen/Creatinine [Mass ratio] 16.4 mg/mg Normal [facility] Comment on above: Performed By: #### L IPID, CMP #### [facility] [address] [place] [address] Dr. Renato Weller SED RATE [facility] 2022 SED RATE 43 mm/hr Critically high <=30 [facility] Comment on above: Performed By: #### S EDR #### [facility] [address] [place] [address] Dr. Renato Weller UA RANDOM W/MICROSCOPICon BACTERIA NONE SEEN Normal NONE SEEN [facility] Comment on above: Performed By: #### U AMIC #### [facility] [address] [place] [address] Dr. Renato Weller Bilirubin Ql (U) LARGE Abnormal NEGATIVE [facility] Comment on above: Performed By: #### U AMIC #### [facility] [address] [place] [address] Dr. Renato Weller CAST NONE SEEN Normal NONE SEEN [facility] Comment on above: Performed By: #### U AMIC #### [facility] [address] [place] [address] Dr. Renato Weller Clarity (U) CLEAR Normal CLEAR [facility] Comment on above: Performed By: #### U AMIC #### [facility] [address] [place] [address] Dr. Renato Weller Color (U) LT. YELLOW Normal YELLOW [facility] Comment on above: Performed By: #### U AMIC #### [facility] [address] [place] [address] Dr. Renato Weller Crystals LM Nom (Urine sed) NONE SEEN Normal NONE SEEN [facility] Comment on above: Performed By: #### U AMIC #### [facility] [address] [place] [address] Dr. Renato Weller Epithelial cells LM Ql (Urine sed) NONE SEEN Normal NONE SEEN /RARE [facility] Comment on above: Performed By: #### U AMIC #### [facility] [address] [place] [address] Dr. Renato Weller Glucose Ql (U) Negative Normal NEGATIVE [facility] Comment on above: Performed By: #### U AMIC #### [facility] [address] [place] [address] Dr. Renato Weller Hemoglobin Ql (U) Negative Normal NEGATIVE [facility] Comment on above: Performed By: #### U AMIC #### [facility] [address] [address] [address] Renato Weller Ketones Ql (U) Negative Normal NEGATIVE [facility] Comment on above: Performed By: #### U AMIC #### [facility] [address] [address] [address] Renato Weller LEUKOCYTES SMALL Abnormal NEGATIVE [facility] Comment on above: Performed By: #### U AMIC #### [facility] [address] [address] [address] Renato Weller MUCOUS NONE SEEN Normal NONE SEEN [facility] Comment on above: Performed By: #### U AMIC #### [facility] [address] [place] [address] Dr. Renato Weller Nitrite Ql (U) Negative Normal NEGATIVE [facility] Comment on above: Performed By: #### U AMIC #### [facility] [address] [address] [address] Renato Weller pH (U) 7.0 [pH] Normal 5-9 [facility] Comment on above: Performed By: #### U AMIC #### [facility] [address] [address] [address] Renato Weller RBC 0-2 Normal 0-2 [facility] Comment on above: Performed By: #### U AMIC #### [facility] [address] [address] [address] Renato Weller SPEC GRAVITY 1.010 Normal 1.005-<=1.025 [facility] Comment on above: Performed By: #### U AMIC #### [facility] [address] [address] [address] Renato Weller UA PROTEIN Negative Normal NEGATIVE/ TRACE [facility] Comment on above: Performed By: #### U AMIC #### [facility] [address] [place] [address] Dr. Renato Weller Urobilinogen Qn (U) 0.2 {Paul'U}/dL Normal 0.2 - 1. 0 [facility] Comment on above: Performed By: #### U AMIC #### [facility] [address] [place] [address] Dr. Renato Weller WBC NONE SEEN Normal NONE SEEN [facility] Comment on above: Performed By: #### U AMIC #### [facility] [address] [place] [address] Dr. Renato Weller CULTURE URINEon 05-12-2022 CULTURE URINE Culture Observations : LIGHT GROWTH OF MIXED GENITAL ROMEL. NO POTENTIAL PATHOGENS SEEN. Normal [facility] Comment on above: Performed By: #### U AMIC #### [facility] [address] [place] [address] Dr. Renato Weller UA RANDOM W/MICROSCOPICon BACTERIA TRACE Abnormal NONE SEEN [facility] Comment on above: Performed By: #### C H50T #### [facility] [address] [place] [address] Dr. Renato Weller Bilirubin Ql (U) LARGE Abnormal NEGATIVE [facility] Comment on above: Performed By: #### C H50T #### [facility] [address] [place] [address] Dr. Renato Weller CAST NONE SEEN Normal NONE SEEN [facility] Comment on above: Performed By: #### C H50T #### [facility] [address] [place] [address] Dr. Renato Weller Clarity (U) CLEAR Normal CLEAR [facility] Comment on above: Performed By: #### C H50T #### [facility] [address] [place] [address] Dr. Renato Weller Color (U) LT. YELLOW Normal YELLOW [facility] Comment on above: Performed By: #### C H50T #### [facility] [address] [place] [address] Dr. Renato Weller Crystals LM Nom (Urine sed) NONE SEEN Normal NONE SEEN [facility] Comment on above: Performed By: #### C H50T #### [facility] [address] [place] [address] Dr. Renato Weller Epithelial cells LM Ql (Urine sed) MODERATE Abnormal NONE SEEN /RARE [facility] Comment on above: Performed By: #### C H50T #### [facility] [address] [place] [address] Dr. Renato Weller Glucose Ql (U) Negative Normal NEGATIVE [facility] Comment on above: Performed By: #### C H50T #### [facility] [address] [place] [address] Dr. Renato Weller Hemoglobin Ql (U) Negative Normal NEGATIVE [facility] Comment on above: Performed By: #### C H50T #### [facility] [address] [place] [address] Dr. Renato Weller Ketones Ql (U) Negative Normal NEGATIVE [facility] Comment on above: Performed By: #### C H50T #### [facility] [address] [place] [address] Dr. Renato Weller LEUKOCYTES SMALL Abnormal NEGATIVE [facility] Comment on above: Performed By: #### C H50T #### [facility] [address] [place] [address] Dr. Renato Weller MUCOUS NONE SEEN Normal NONE SEEN [facility] Comment on above: Performed By: #### C H50T #### [facility] [address] [place] [address] Dr. Renato Weller Nitrite Ql (U) Negative Normal NEGATIVE [facility] Comment on above: Performed By: #### C H50T #### [facility] [address] [place] [address] Dr. Renato Weller pH (U) 6.0 [pH] Normal 5-9 [facility] Comment on above: Performed By: #### C H50T #### [facility] [address] [place] [address] Dr. Renato Wleler RBC 0-2 Normal 0-2 [facility] Comment on above: Performed By: #### C H50T #### [facility] [address] [place] [address] Dr. Renato Weller SPEC GRAVITY 1.025 Normal 1.005-<=1.025 [facility] Comment on above: Performed By: #### C H50T #### [facility] [address] [address] [address] Renato Weller UA PROTEIN Negative Normal NEGATIVE/ TRACE [facility] Comment on above: Performed By: #### C H50T #### [facility] [address] [address] [address] Renato Weller Urobilinogen Qn (U) 0.2 {Paul'U}/dL Normal 0.2 - 1. 0 [facility] Comment on above: Performed By: #### C H50T #### [facility] [address] [address] [address] Renato Weller WBC 5-10 Abnormal NONE SEEN [facility] Comment on above: Performed By: #### C H50T #### [facility] [address] [place] [address] Dr. Renato Weller CULTURE URINEon 05-02-2022 CULTURE URINE Culture Observations : MODERATE GROWTH OF MIXED GENITAL ROMEL. PLEASE RESUBMIT CLEAN CATCH MID-STREAM URINE IF CLINICALLY INDICATED. Normal [facility] Comment on above: Performed By: #### U AMIC #### [facility] [address] [place] [address] Dr. Renato Weller UA RANDOM W/MICROSCOPICon BACTERIA LARGE Abnormal NONE SEEN [facility] Comment on above: Performed By: #### U AMIC #### [facility] [address] [place] [address] Dr. Renato Weller Bilirubin Ql (U) MODERATE Abnormal NEGATIVE [facility] Comment on above: Performed By: #### U AMIC #### [facility] [address] [address] [address] Renato Weller CAST NONE SEEN Normal NONE SEEN [facility] Comment on above: Performed By: #### U AMIC #### [facility] [address] [place] [address] Dr. Renato Weller Clarity (U) CLEAR Normal CLEAR [facility] Comment on above: Performed By: #### U AMIC #### [facility] [address] [address] [address] Renato Weller Color (U) LT. YELLOW Normal YELLOW [facility] Comment on above: Performed By: #### U AMIC #### [facility] [address] [address] [address] Renato Weller Crystals LM Nom (Urine sed) NONE SEEN Normal NONE SEEN [facility] Comment on above: Performed By: #### U AMIC #### [facility] [address] [address] [address] Renato Weller Epithelial cells LM Ql (Urine sed) MODERATE Abnormal NONE SEEN /RARE [facility] Comment on above: Performed By: #### U AMIC #### [facility] [address] [place] [address] Dr. Renato Weller Glucose Ql (U) Negative Normal NEGATIVE [facility] Comment on above: Performed By: #### U AMIC #### [facility] [address] [place] [address] Dr. Renato Weller Hemoglobin Ql (U) LARGE Abnormal NEGATIVE [facility] Comment on above: Performed By: #### U AMIC #### [facility] [address] [address] [address] Renato Weller Ketones Ql (U) Negative Normal NEGATIVE [facility] Comment on above: Performed By: #### U AMIC #### [facility] [address] [place] [address] Dr. Renato Weller LEUKOCYTES LARGE Abnormal NEGATIVE [facility] Comment on above: Performed By: #### U AMIC #### [facility] [address] [place] [address] Dr. Renato Weller MUCOUS NONE SEEN Normal NONE SEEN [facility] Comment on above: Performed By: #### U AMIC #### [facility] [address] [place] [address] Dr. Renato Weller Nitrite Ql (U) Negative Normal NEGATIVE [facility] Comment on above: Performed By: #### U AMIC #### [facility] [address] [place] [address] Dr. Renato Weller pH (U) 6.0 [pH] Normal 5-9 [facility] Comment on above: Performed By: #### U AMIC #### [facility] [address] [address] [address] Renato Weller RBC 5-10 Abnormal 0-2 [facility] Comment on above: Performed By: #### U AMIC #### [facility] [address] [address] [address] Renato Weller SPEC GRAVITY 1.020 Normal 1.005-<=1.025 [facility] Comment on above: Performed By: #### U AMIC #### [facility] [address] [address] [address] Renato Weller UA PROTEIN Negative Normal NEGATIVE/ TRACE [facility] Comment on above: Performed By: #### U AMIC #### [facility] [address] [place] [address] Dr. Renato Weller Urobilinogen Qn (U) 0.2 {Paul'U}/dL Normal 0.2 - 1. 0 [facility] Comment on above: Performed By: #### U AMIC #### [facility] [address] [address] [address] Renato Weller WBC 10-20 Abnormal NONE SEEN [facility] Comment on above: Performed By: #### U AMIC #### [facility] [address] [place] [address] Dr. Renato Weller XR CSPINE MIN 4 VIEWSon 04-06 XR CSPINE MIN 4 VIEWS EXAMINATION: XR [...] CASANDRA DURAN Date: 2022-05-01 17:38 Normal [facility] C3 and C4 COMPLEMENTon 04-15 Complement C3, Serum 115 mg/dL Normal 82-167 [facility] Comment on above: Performed By: #### C H50T #### [facility] [address] [place] [address] Dr. Renato Weller Complement C4, Serum 23 mg/dL Normal 12-38 [facility] Comment on above: Performed By: #### C H50T #### [facility] [address] [place] [address] Dr. Renato Weller COMPLEMENT TOTAL (CH50)on Complement, Total (CH50) >60 Normal >41 [facility] Comment on above: Result Comment: [...] values. Performed By: #### C H50T #### [facility] [address] [place] [address] Dr. Renato Weller CBC AUTO DIFFon 04-14-2022 BASO # 0.1 103/ul Normal 0.0-0.1 [facility] Comment on above: Performed By: #### C H50T #### [facility] [address] [place] [address] Dr. Renato Weller Basophils/100 WBC (Bld) 1.6 % Normal 0.2-2.0 [facility] Comment on above: Performed By: #### C H50T #### [facility] [address] [place] [address] Dr. Renato Weller EO # 0.1 103/ul Normal 0.0-0.7 [facility] Comment on above: Performed By: #### C H50T #### [facility] [address] [place] [address] Dr. Renato Weller Eosinophils/100 WBC (Bld) 2.0 % Normal 0.9-7.0 [facility] Comment on above: Performed By: #### C H50T #### [facility] [address] [place] [address] Dr. Renato Weller Erythrocyte distribution width (RBC) [Ratio] 12.8 % Normal 11.0-15.0 [facility] Comment on above: Performed By: #### C H50T #### [facility] [address] [place] [address] Dr. Renato Weller Hematocrit (Bld) [Volume fraction] 40.0 % Normal 36.0-48.0 [facility] Comment on above: Performed By: #### C H50T #### [facility] [address] [place] [address] Dr. Renato Weller Hemoglobin (Bld) [Mass/Vol] 12.8 g/dL Normal 12.0-16.0 [facility] Comment on above: Performed By: #### C H50T #### [facility] [address] [place] [address] Dr. Renato Weller IG # 0.02 10e3/ul Normal 0.00-0.03 [facility] Comment on above: Performed By: #### C H50T #### [facility] [address] [place] [address] Dr. Renato Weller IG % 0.4 % Normal 0.0-0.5 [facility] Comment on above: Performed By: #### C H50T #### [facility] [address] [place] [address] Dr. Renato Wellre LYMPH # 1.1 103/ul Critically low 1.2-3.8 [facility] Comment on above: Performed By: #### C H50T #### [facility] [address] [place] [address] Dr. Renato Weller Lymphocytes/100 WBC (Bld) 22.2 % Normal 20.5-60.0 [facility] Comment on above: Performed By: #### C H50T #### [facility] [address] [place] [address] Dr. Renato Weller MANUAL DIFF REQ NO Normal [facility] Comment on above: Performed By: #### C H50T #### [facility] [address] [address] [address] Renato Weller MCH (RBC) [Entitic mass] 31.3 pg Normal 26.7-34.0 [facility] Comment on above: Performed By: #### C H50T #### [facility] [address] [place] [address] Dr. Renato Weller MCHC (RBC) [Mass/Vol] 32.0 g/dL Normal 29.9-35.2 [facility] Comment on above: Performed By: #### C H50T #### [facility] [address] [place] [address] Dr. Renato Weller MCV (RBC) [Entitic vol] 97.8 fL Normal 81.0-99.0 [facility] Comment on above: Performed By: #### C H50T #### [facility] [address] [place] [address] Dr. Renato Weller MONO # 0.5 103/ul Normal 0.3-0.8 [facility] Comment on above: Performed By: #### C H50T #### [facility] [address] [place] [address] Dr. Renato Weller Monocytes/100 WBC (Bld) 9.8 % Normal 1.7-12.0 [facility] Comment on above: Performed By: #### C H50T #### [facility] [address] [place] [address] Dr. Renato Weller NEUT # 3.2 103/ul Normal 1.4-6.5 [facility] Comment on above: Performed By: #### C H50T #### [facility] [address] [place] [address] Dr. Renato Weller Neutrophils/100 WBC (Bld) 64.0 % Normal 43.0-75.0 [facility] Comment on above: Performed By: #### C H50T #### [facility] [address] [place] [address] Dr. Renato Weller Platelet mean volume (Bld) [Entitic vol] 9.3 fL Critically low 9.5-13.5 [facility] Comment on above: Performed By: #### C H50T #### [facility] [address] [address] [address] Renato Weller PLT 181 103/ul Normal 150-450 [facility] Comment on above: Performed By: #### C H50T #### [facility] [address] [address] [address] Renato Weller RBC 4.09 106/ul Critically low 4.20-5.40 [facility] Comment on above: Performed By: #### C H50T #### [facility] [address] [address] [address] Renato Weller WBC 5.0 103/ul Normal 4.0-11.0 [facility] Comment on above: Performed By: #### C H50T #### [facility] [address] [place] [address] Dr. Renato Weller LIPID PROFILEon 04-14-2022 CHOL-HDL RATIO NORM SEE BELOW Normal [facility] Comment on above: Result Comment: 3.3 - 4.4 LOW RISK 4.4 - 7.1 AVERAGE RISK 7.1 - 11.0 MODERATE RISK >11.0 HIGH RISK Performed By: #### T SH, LIPID #### [facility] [address] [place] [address] Dr. Renato Weller Cholesterol [Mass/Vol] 176 mg/dL Normal <=200 [facility] Comment on above: Performed By: #### T SH, LIPID #### [facility] [address] [address] [address] Renato Weller Cholesterol in HDL [Mass/Vol] 71 mg/dL Critically high 40-60 [facility] Comment on above: Performed By: #### T SH, LIPID #### [facility] [address] [place] [address] Dr. Renato Weller Cholesterol in LDL [Mass/Vol] 94.0 mg/dL Normal [facility] Comment on above: Performed By: #### T SH, LIPID #### [facility] [address] [place] [address] Dr. Renato Weller Cholesterol.total/C holesterol in HDL [Mass ratio] 2.5 {ratio} Normal [facility] Comment on above: Performed By: #### T SH, LIPID #### [facility] [address] [address] [address] Renato Weller HDL NORMAL > or = 60 mg/dl - LO W CARDIOVASCULAR RISK <40 mg/dl - HIGH CARDIOVASCULAR RISK Normal [facility] Comment on above: Performed By: #### T SH, LIPID #### [facility] [address] [address] [address] Renato Weller LDL CALC NORMAL SEE BELOW Normal [facility] Comment on above: Result Comment: <100 mg/dl OPTIMAL 100 - 129 mg/dl NEAR OR ABOVE OPTIMAL 130 - 159 mg/dl BORDERLINE HIGH 160 - 189 mg/dl HIGH >190 mg/dl VERY HIGH Performed By: #### T SH, LIPID #### [facility] [address] [address] [address] Renato Weller Triglyceride [Mass/Vol] 55 mg/dL Normal <=150 [facility] Comment on above: Performed By: #### T SH, LIPID #### [facility] [address] [address] [address] Renato Weller VLDL CALC 11.0 mg/dL Normal [facility] Comment on above: Performed By: #### T SH, LIPID #### [facility] [address] [address] [address] Renato Weller MG MAMM SCREEN 3D HERBERT CADon 04-14-2022 MG MAMM SCREEN 3D HERBERT CAD Patient: GENNA HERRERA Exam Date: 04/14/2022 : 1950 Gender:F Ordering : DR CASANDRA CHOPRA Admission #: [id number] Family : Order #: [id number] CLICK HERE TO VIEW EXAM RADIOLOGY REPORT [...] ovarian cancer at age 44. LOCATION: [facility] BREAST COMPOSITION: Scattered areas fibroglandular [...] Duran MD on 04/14/2022 at 09:31 Normal [facility] PROF 14(COMP METB)on 022 Albumin [Mass/Vol] 3.8 g/dL Normal 3.4-5.0 [facility] Comment on above: Performed By: #### C MP #### [facility] [address] [place] [address] Dr. Renato Weller Albumin/Globulin [Mass ratio] 1.2 {ratio} Normal [facility] Comment on above: Performed By: #### C MP #### [facility] [address] [place] [address] Dr. Renato Weller ALP [Catalytic activity/Vol] 41 U/L Critically low 46-116 [facility] Comment on above: Performed By: #### C MP #### [facility] [address] [place] [address] Dr. Renato Weller ALT [Catalytic activity/Vol] 23 U/L Normal 14-59 [facility] Comment on above: Performed By: #### C MP #### [facility] [address] [place] [address] Dr. Renato Weller Anion gap [Moles/Vol] 10.0 mmol/L Normal [facility] Comment on above: Performed By: #### C MP #### [facility] [address] [place] [address] Dr. Renato Weller AST [Catalytic activity/Vol] 20 U/L Normal 15-37 [facility] Comment on above: Performed By: #### C MP #### [facility] [address] [address] [address] Renato Weller Bilirubin [Mass/Vol] 0.4 mg/dL Normal 0.2-1.0 [facility] Comment on above: Performed By: #### C MP #### [facility] [address] [place] [address] Dr. Renato Weller Calcium [Mass/Vol] 8.5 mg/dL Normal 8.5-10.1 [facility] Comment on above: Performed By: #### C MP #### [facility] [address] [place] [address] Dr. Renato Weller Chloride [Moles/Vol] 104 mmol/L Normal 98-107 [facility] Comment on above: Performed By: #### C MP #### [facility] [address] [place] [address] Dr. Renato Weller CO2 [Moles/Vol] 29.0 mmol/L Normal 21.0-32.0 [facility] Comment on above: Performed By: #### C MP #### [facility] [address] [place] [address] Dr. Renato Weller Creatinine [Mass/Vol] 0.69 mg/dL Normal 0.55-1.02 [facility] Comment on above: Performed By: #### C MP #### [facility] [address] [place] [address] Dr. Renato Weller EGFR-AF GEORGIAN >60 Normal >=60 [facility] Comment on above: Performed By: #### C MP #### [facility] [address] [place] [address] Dr. Renato Weller EGFR-NON AF GEORGIAN >60 Normal >=60 [facility] Comment on above: Performed By: #### C MP #### [facility] [address] [place] [address] Dr. Renato Weller Globulin (S) [Mass/Vol] 3.2 g/dL Normal [facility] Comment on above: Performed By: #### C MP #### [facility] [address] [place] [address] Dr. Renato Weller Glucose [Mass/Vol] 84 mg/dL Normal 74-106 [facility] Comment on above: Performed By: #### C MP #### [facility] [address] [address] [address] Renato Weller Potassium [Moles/Vol] 4.0 mmol/L Normal 3.5-5.1 [facility] Comment on above: Performed By: #### C MP #### [facility] [address] [address] [address] Renato Weller Protein [Mass/Vol] 7.0 g/dL Normal 6.4-8.2 [facility] Comment on above: Performed By: #### C MP #### [facility] [address] [address] [address] Renato Weller Sodium [Moles/Vol] 139 mmol/L Normal 136-145 [facility] Comment on above: Performed By: #### C MP #### [facility] [address] [address] [address] Renato Weller Urea nitrogen [Mass/Vol] 16.0 mg/dL Normal 7.0-18.0 [facility] Comment on above: Performed By: #### C MP #### [facility] [address] [place] [address] Dr. Renato Weller Urea nitrogen/Creatinine [Mass ratio] 23.2 mg/mg Normal [facility] Comment on above: Performed By: #### C MP #### [facility] [address] [address] [address] Renato Weller [facility] 16 mm/hr Normal <=30 [facility] Comment on above: Performed By: #### U AMIC #### [facility] [address] [address] [address] Renato Weller TSHon 04-14-2022 TSH 3.056 uIU/mL Normal 0.358-3.740 [facility] Comment on above: Performed By: #### T SH, LIPID #### [facility] [address] [address] [address] Renato Weller UA RANDOM W/MICROSCOPICon BACTERIA MODERATE Abnormal NONE SEEN [facility] Comment on above: Performed By: #### C H50T #### [facility] [address] [place] [address] Dr. Renato Weller Bilirubin Ql (U) LARGE Abnormal NEGATIVE [facility] Comment on above: Performed By: #### C H50T #### [facility] [address] [place] [address] Dr. Renato Weller CAST NONE SEEN Normal NONE SEEN [facility] Comment on above: Performed By: #### C H50T #### [facility] [address] [address] [address] Renato Weller Clarity (U) CLEAR Normal CLEAR [facility] Comment on above: Performed By: #### C H50T #### [facility] [address] [place] [address] Dr. Renato Weller Color (U) LT. YELLOW Normal YELLOW [facility] Comment on above: Performed By: #### C H50T #### [facility] [address] [place] [address] Dr. Renato Weller Crystals LM Nom (Urine sed) NONE SEEN Normal NONE SEEN [facility] Comment on above: Performed By: #### C H50T #### [facility] [address] [place] [address] Dr. Renato Weller Epithelial cells LM Ql (Urine sed) MANY Abnormal NONE SEEN /RARE [facility] Comment on above: Performed By: #### C H50T #### [facility] [address] [place] [address] Dr. Renato Weller Glucose Ql (U) Negative Normal NEGATIVE [facility] Comment on above: Performed By: #### C H50T #### [facility] [address] [place] [address] Dr. Renato Weller Hemoglobin Ql (U) Negative Normal NEGATIVE [facility] Comment on above: Performed By: #### C H50T #### [facility] [address] [place] [address] Dr. Renato Weller Ketones Ql (U) Negative Normal NEGATIVE [facility] Comment on above: Performed By: #### C H50T #### [facility] [address] [address] [address] Renato Weller LEUKOCYTES LARGE Abnormal NEGATIVE [facility] Comment on above: Performed By: #### C H50T #### [facility] [address] [place] [address] Dr. Renato Weller MUCOUS NONE SEEN Normal NONE SEEN [facility] Comment on above: Performed By: #### C H50T #### [facility] [address] [place] [address] Dr. Renato Weller Nitrite Ql (U) Negative Normal NEGATIVE [facility] Comment on above: Performed By: #### C H50T #### [facility] [address] [place] [address] Dr. Renato Weller pH (U) 6.0 [pH] Normal 5-9 [facility] Comment on above: Performed By: #### C H50T #### [facility] [address] [place] [address] Dr. Renato Weller RBC 2-5 Abnormal 0-2 [facility] Comment on above: Performed By: #### C H50T #### [facility] [address] [place] [address] Dr. Renato Weller SPEC GRAVITY 1.025 Normal 1.005-<=1.025 [facility] Comment on above: Performed By: #### C H50T #### [facility] [address] [place] [address] Dr. Renato Weller UA PROTEIN Negative Normal NEGATIVE/ TRACE [facility] Comment on above: Performed By: #### C H50T #### [facility] [address] [place] [address] Dr. Renato Weller Urobilinogen Qn (U) 0.2 {Paul'U}/dL Normal 0.2 - 1. 0 [facility] Comment on above: Performed By: #### C H50T #### [facility] [address] [place] [address] Dr. Renato Weller WBC 10-20 Abnormal NONE SEEN [facility] Comment on above: Performed By: #### C H50T #### [facility] [address] [address] [address] Renato Weller RAD - CT Reporton 02-26-2022 RAD - CT Report [id number] 0CD:[id number] Normal [facility] CT ABDOMEN WO CONTRASTon CT ABDOMEN [...] MARII TURCIOS Date: 2022-02-19 17:17 Normal [facility] Ambulatory Visit Summaryon 0 02-04-2022 Ambulatory Visit Summary LINDSAYTEQUILA DrewNAINA Kohler :1950 Visit Date:02/04/2022 Ambulatory Visit Instructions Your [...] Varicose veins of legs Ventral hernia Normal [facility] Physician Referralon 022 Physician Referral [id number]:[id number] Normal [facility] XR DEXA BONE DENSITYon 12-30 XR [...] by: CASANDRA DURAN Date: 2021-12-30 16:10 Normal [facility] C3 and C4 COMPLEMENTon 12-17 Complement C3, Serum 122 mg/dL Normal 82-167 [facility] Comment on above: Performed By: #### C SUITE #### [facility] [address] [place] [address] Dr. Renato Weller Complement C4, Serum 24 mg/dL Normal 12-38 [facility] Comment on above: Performed By: #### C SUITE #### [facility] [address] [address] [address] Renato Weller COMPLEMENT TOTAL (CH50)on Complement, Total (CH50) >60 Normal >41 [facility] Comment on above: Result Comment: [...] values. Performed By: #### C H50T #### [facility] [address] [address] [address] Renato Weller CBC AUTO DIFFon 12-16-2021 BASO # 0.1 103/ul Normal 0.0-0.1 [facility] Comment on above: Performed By: #### L IPID, CMP #### [facility] [address] [address] [address] Renato Weller Basophils/100 WBC (Bld) 1.8 % Normal 0.2-2.0 [facility] Comment on above: Performed By: #### L IPID, CMP #### [facility] [address] [address] [address] Renato Weller EO # 0.1 103/ul Normal 0.0-0.7 [facility] Comment on above: Performed By: #### L IPID, CMP #### [facility] [address] [address] [address] Renato Weller Eosinophils/100 WBC (Bld) 2.2 % Normal 0.9-7.0 [facility] Comment on above: Performed By: #### L IPID, CMP #### [facility] [address] [address] [address] Renato Weller Erythrocyte distribution width (RBC) [Ratio] 13.8 % Normal 11.0-15.0 [facility] Comment on above: Performed By: #### L IPID, CMP #### [facility] [address] [address] [address] Renato Weller Hematocrit (Bld) [Volume fraction] 39.4 % Normal 36.0-48.0 [facility] Comment on above: Performed By: #### L IPID, CMP #### [facility] [address] [place] [address] Dr. Renato Weller Hemoglobin (Bld) [Mass/Vol] 12.5 g/dL Normal 12.0-16.0 [facility] Comment on above: Performed By: #### L IPID, CMP #### [facility] [address] [place] [address] Dr. Renato Weller IG # 0.02 10e3/ul Normal 0.00-0.03 [facility] Comment on above: Performed By: #### L IPID, CMP #### [facility] [address] [place] [address] Dr. Renato Weller IG % 0.4 % Normal 0.0-0.5 [facility] Comment on above: Performed By: #### L IPID, CMP #### [facility] [address] [place] [address] Dr. Renato Weller LYMPH # 1.0 103/ul Critically low 1.2-3.8 [facility] Comment on above: Performed By: #### L IPID, CMP #### [facility] [address] [place] [address] Dr. Renato Weller Lymphocytes/100 WBC (Bld) 18.5 % Critically low 20.5-60.0 [facility] Comment on above: Performed By: #### L IPID, CMP #### [facility] [address] [place] [address] Dr. Renato Weller MANUAL DIFF REQ NO Normal [facility] Comment on above: Performed By: #### L IPID, CMP #### [facility] [address] [place] [address] Dr. Renato Weller MCH (RBC) [Entitic mass] 30.8 pg Normal 26.7-34.0 [facility] Comment on above: Performed By: #### L IPID, CMP #### [facility] [address] [place] [address] Dr. Renato Weller MCHC (RBC) [Mass/Vol] 31.7 g/dL Normal 29.9-35.2 [facility] Comment on above: Performed By: #### L IPID, CMP #### [facility] [address] [address] [address] Renato Weller MCV (RBC) [Entitic vol] 97.0 fL Normal 81.0-99.0 [facility] Comment on above: Performed By: #### L IPID, CMP #### [facility] [address] [place] [address] Dr. Renato Weller MONO # 0.5 103/ul Normal 0.3-0.8 [facility] Comment on above: Performed By: #### L IPID, CMP #### [facility] [address] [place] [address] Dr. Renato Weller Monocytes/100 WBC (Bld) 9.3 % Normal 1.7-12.0 [facility] Comment on above: Performed By: #### L IPID, CMP #### [facility] [address] [place] [address] Dr. Renato Weller NEUT # 3.8 103/ul Normal 1.4-6.5 [facility] Comment on above: Performed By: #### L IPID, CMP #### [facility] [address] [place] [address] Dr. Renato Weller Neutrophils/100 WBC (Bld) 67.8 % Normal 43.0-75.0 [facility] Comment on above: Performed By: #### L IPID, CMP #### [facility] [address] [place] [address] Dr. Renato Weller Platelet mean volume (Bld) [Entitic vol] 9.1 fL Critically low 9.5-13.5 [facility] Comment on above: Performed By: #### L IPID, CMP #### [facility] [address] [place] [address] Dr. Renato Weller PLT 240 103/ul Normal 150-450 [facility] Comment on above: Performed By: #### L IPID, CMP #### [facility] [address] [address] [address] Renato Weller RBC 4.06 106/ul Critically low 4.20-5.40 [facility] Comment on above: Performed By: #### L IPID, CMP #### [facility] [address] [address] [address] Renato Weller WBC 5.6 103/ul Normal 4.0-11.0 [facility] Comment on above: Performed By: #### L IPID, CMP #### [facility] [address] [address] [address] Renato Weller PROF 14(COMP METB)on 022 Albumin [Mass/Vol] 3.5 g/dL Normal 3.4-5.0 [facility] Comment on above: Performed By: #### C H50T #### [facility] [address] [address] [address] Renato Weller Albumin/Globulin [Mass ratio] 1.1 {ratio} Normal [facility] Comment on above: Performed By: #### C H50T #### [facility] [address] [address] [address] Renato Weller ALP [Catalytic activity/Vol] 51 U/L Normal 46-116 [facility] Comment on above: Performed By: #### C H50T #### [facility] [address] [address] [address] Renato Weller ALT [Catalytic activity/Vol] 22 U/L Normal 14-59 [facility] Comment on above: Performed By: #### C H50T #### [facility] [address] [address] [address] Renato Weller Anion gap [Moles/Vol] 13.0 mmol/L Normal [facility] Comment on above: Performed By: #### C H50T #### [facility] [address] [address] [address] Renato Weller AST [Catalytic activity/Vol] 17 U/L Normal 15-37 [facility] Comment on above: Performed By: #### C H50T #### [facility] [address] [address] [address] Renato Weller Bilirubin [Mass/Vol] 0.4 mg/dL Normal 0.2-1.0 [facility] Comment on above: Performed By: #### C H50T #### [facility] [address] [address] [address] Renato Weller Calcium [Mass/Vol] 8.3 mg/dL Critically low 8.5-10.1 [facility] Comment on above: Performed By: #### C H50T #### [facility] [address] [place] [address] Dr. Renato eWller Chloride [Moles/Vol] 104 mmol/L Normal 98-107 [facility] Comment on above: Performed By: #### C H50T #### [facility] [address] [place] [address] Dr. Renato Weller CO2 [Moles/Vol] 27.4 mmol/L Normal 21.0-32.0 [facility] Comment on above: Performed By: #### C H50T #### [facility] [address] [place] [address] Dr. Renato Weller Creatinine [Mass/Vol] 0.71 mg/dL Normal 0.55-1.02 [facility] Comment on above: Performed By: #### C H50T #### [facility] [address] [place] [address] Dr. Renato Weller EGFR-AF GEORGIAN >60 Normal >=60 [facility] Comment on above: Performed By: #### C H50T #### [facility] [address] [place] [address] Dr. Renato Weller EGFR-NON AF GEORGIAN >60 Normal >=60 [facility] Comment on above: Performed By: #### C H50T #### [facility] [address] [place] [address] Dr. Renato Weller Globulin (S) [Mass/Vol] 3.1 g/dL Normal [facility] Comment on above: Performed By: #### C H50T #### [facility] [address] [address] [address] Renato Weller Glucose [Mass/Vol] 85 mg/dL Normal 74-106 [facility] Comment on above: Performed By: #### C H50T #### [facility] [address] [place] [address] Dr. Renato Weller Potassium [Moles/Vol] 4.4 mmol/L Normal 3.5-5.1 [facility] Comment on above: Performed By: #### C H50T #### [facility] [address] [place] [address] Dr. Renato Weller Protein [Mass/Vol] 6.6 g/dL Normal 6.4-8.2 [facility] Comment on above: Performed By: #### C H50T #### [facility] [address] [place] [address] Dr. Renato Weller Sodium [Moles/Vol] 140 mmol/L Normal 136-145 [facility] Comment on above: Performed By: #### C H50T #### [facility] [address] [place] [address] Dr. Renato Weller Urea nitrogen [Mass/Vol] 14.0 mg/dL Normal 7.0-18.0 [facility] Comment on above: Performed By: #### C H50T #### [facility] [address] [place] [address] Dr. Renato Weller Urea nitrogen/Creatinine [Mass ratio] 19.7 mg/mg Normal [facility] Comment on above: Performed By: #### C H50T #### [facility] [address] [place] [address] Dr. Renato Weller SED RATE WESTERGRENon 2021 SED RATE 6 mm/hr Normal <=30 [facility] Comment on above: Performed By: #### C H50T #### [facility] [address] [place] [address] Dr. Renato Weller UA RANDOM W/MICROSCOPICon BACTERIA TRACE Abnormal NONE SEEN [facility] Comment on above: Performed By: #### C H50T #### [facility] [address] [address] [address] Renato Weller Bilirubin Ql (U) MODERATE Abnormal NEGATIVE [facility] Comment on above: Performed By: #### C H50T #### [facility] [address] [address] [address] Renato Weller CAST NONE SEEN Normal NONE SEEN [facility] Comment on above: Performed By: #### C H50T #### [facility] [address] [address] [address] Renato Weller Clarity (U) CLEAR Normal CLEAR [facility] Comment on above: Performed By: #### C H50T #### [facility] [address] [place] [address] Dr. Renato Weller Color (U) LT. YELLOW Normal YELLOW [facility] Comment on above: Performed By: #### C H50T #### [facility] [address] [place] [address] Dr. Renato Weller Crystals LM Nom (Urine sed) NONE SEEN Normal NONE SEEN [facility] Comment on above: Performed By: #### C H50T #### [facility] [address] [place] [address] Dr. Renato Weller Epithelial cells LM Ql (Urine sed) MODERATE Abnormal NONE SEEN /RARE [facility] Comment on above: Performed By: #### C H50T #### [facility] [address] [place] [address] Dr. Renato Weller Glucose Ql (U) Negative Normal NEGATIVE [facility] Comment on above: Performed By: #### C H50T #### [facility] [address] [place] [address] Dr. Renato Weller Hemoglobin Ql (U) Negative Normal NEGATIVE [facility] Comment on above: Performed By: #### C H50T #### [facility] [address] [place] [address] Dr. Renato Weller Ketones Ql (U) Negative Normal NEGATIVE [facility] Comment on above: Performed By: #### C H50T #### [facility] [address] [address] [address] Renato Weller LEUKOCYTES SMALL Abnormal NEGATIVE [facility] Comment on above: Performed By: #### C H50T #### [facility] [address] [place] [address] Dr. Renato Weller MUCOUS NONE SEEN Normal NONE SEEN [facility] Comment on above: Performed By: #### C H50T #### [facility] [address] [place] [address] Dr. Renato Weller Nitrite Ql (U) Negative Normal NEGATIVE [facility] Comment on above: Performed By: #### C H50T #### [facility] [address] [place] [address] Dr. Renato Weller pH (U) 6.0 [pH] Normal 5-9 [facility] Comment on above: Performed By: #### C H50T #### [facility] [address] [place] [address] Dr. Renato Weller RBC NONE SEEN Abnormal 0-2 [facility] Comment on above: Performed By: #### C H50T #### [facility] [address] [place] [address] Dr. Renato Weller SPEC GRAVITY 1.010 Normal 1.005-<=1.025 [facility] Comment on above: Performed By: #### C H50T #### [facility] [address] [place] [address] Dr. Renato Weller UA PROTEIN Negative Normal NEGATIVE/ TRACE [facility] Comment on above: Performed By: #### C H50T #### [facility] [address] [place] [address] Dr. Renato Weller Urobilinogen Qn (U) 0.2 {Paul'U}/dL Normal 0.2 - 1. 0 [facility] Comment on above: Performed By: #### C H50T #### [facility] [address] [place] [address] Dr. Renato Weller WBC 2-5 Abnormal NONE SEEN [facility] Comment on above: Performed By: #### C H50T #### [facility] [address] [address] [address] Renato Weller C-Reactive Proteinon 019 CRP [Mass/Vol] 0.6 mg/dL Normal 0.0-1.0 [facility] Comment on above: Performed By: #### C BC, CK, CMP, CRP, T4F, TSH3, ESR #### [address] Complete Blood Count Auto Di ffon 04-06-2019 Basophils (Bld) [#/Vol] 0.1 10*3/uL Normal 0.0-0.2 [facility] Comment on above: Result Comment: PERF ORMED BY: [place] [address] PATHOLOGIST NUT SORTER ROSLYN TALLEY M.D. Performed By: #### C BC, CK, CMP, CRP, T4F, TSH3, ESR #### [address] Basophils/100 WBC (Bld) 1.0 % Normal . [facility] Comment on above: Performed By: #### C BC, CK, CMP, CRP, T4F, TSH3, ESR #### [address] Eosinophils (Bld) [#/Vol] 0.1 10*3/uL Normal 0.0-0.45 [facility] Comment on above: Performed By: #### C BC, CK, CMP, CRP, T4F, TSH3, ESR #### [address] Eosinophils/100 WBC (Bld) 0.9 % Normal . [facility] Comment on above: Performed By: #### C BC, CK, CMP, CRP, T4F, TSH3, ESR #### [address] Erythrocyte distribution width (RBC) [Ratio] 14.5 % Normal 11.9-15.3 [facility] Comment on above: Performed By: #### C BC, CK, CMP, CRP, T4F, TSH3, ESR #### [address] Hematocrit (Bld) [Volume fraction] 44.9 % Normal 34.0-46.4 [facility] Comment on above: Performed By: #### C BC, CK, CMP, CRP, T4F, TSH3, ESR #### [address] Hemoglobin (Bld) [Mass/Vol] 15.2 g/dL Normal 11.8-15.4 [facility] Comment on above: Performed By: #### C BC, CK, CMP, CRP, T4F, TSH3, ESR #### [address] Lymphocytes (Bld) [#/Vol] 1.1 10*3/uL Normal 1.00-4.8 [facility] Comment on above: Performed By: #### C BC, CK, CMP, CRP, T4F, TSH3, ESR #### [address] Lymphocytes/100 WBC (Bld) 14.6 % Normal . [facility] Comment on above: Performed By: #### C BC, CK, CMP, CRP, T4F, TSH3, ESR #### [address] MCH (RBC) [Entitic mass] 34.0 g/dL Normal 32.0-35.0 [facility] Comment on above: Performed By: #### C BC, CK, CMP, CRP, T4F, TSH3, ESR #### [address] MCH (RBC) [Entitic mass] 30.8 pg Normal 24.7-34.3 [facility] Comment on above: Performed By: #### C BC, CK, CMP, CRP, T4F, TSH3, ESR #### [address] MCV (RBC) [Entitic vol] 90.5 fL Normal 80-100 [facility] Comment on above: Performed By: #### C BC, CK, CMP, CRP, T4F, TSH3, ESR #### [facility] [address] [place] [address] [place] Monocytes (Bld) [#/Vol] 0.5 10*3/uL Normal 0.0-0.8 [facility] Comment on above: Performed By: #### C BC, CK, CMP, CRP, T4F, TSH3, ESR #### [facility] [address] [place] [address] [place] Monocytes/100 WBC (Bld) 7.0 % Normal . [facility] Comment on above: Performed By: #### C BC, CK, CMP, CRP, T4F, TSH3, ESR #### [facility] [address] Neutrophils (Bld) [#/Vol] 6.0 10*3/uL Normal 1.8-7.7 [facility] Comment on above: Performed By: #### C BC, CK, CMP, CRP, T4F, TSH3, ESR #### [address] Neutrophils/100 WBC (Bld) 76.5 % Normal . [facility] Comment on above: Performed By: #### C BC, CK, CMP, CRP, T4F, TSH3, ESR #### [facility] [address] [place] [address] [place] Nucleated RBC/100 WBC (Bld) [Ratio] 0.2 % Normal 0-0.5 [facility] Comment on above: Performed By: #### C BC, CK, CMP, CRP, T4F, TSH3, ESR #### [facility] [address] [place] [address] [place] Platelet mean volume (Bld) [Entitic vol] 8.6 fL Normal 6.3-10.7 [facility] Comment on above: Performed By: #### C BC, CK, CMP, CRP, T4F, TSH3, ESR #### [facility] [address] [place] [address] [place] Platelets (Bld) [#/Vol] 218 10*3/uL Normal 150-450 [facility] Comment on above: Performed By: #### C BC, CK, CMP, CRP, T4F, TSH3, ESR #### [address] RBC (Bld) [#/Vol] 4.96 10*6/uL Normal 3.60-5.00 [facility] Comment on above: Performed By: #### C BC, CK, CMP, CRP, T4F, TSH3, ESR #### [address] WBC (Bld) [#/Vol] 7.8 10*3/uL Normal 4.5-11.0 [facility] Comment on above: Performed By: #### C BC, CK, CMP, CRP, T4F, TSH3, ESR #### [address] Comprehensive Metabolic Pane molly 04-06-2019 Albumin [Mass/Vol] 4.0 g/dL Normal 3.2-5.5 [facility] Comment on above: Performed By: #### C BC, CK, CMP, CRP, T4F, TSH3, ESR #### [address] Albumin/Globulin [Mass ratio] 1.5 {ratio} Normal [facility] Comment on above: Performed By: #### C BC, CK, CMP, CRP, T4F, TSH3, ESR #### [address] ALP [Catalytic activity/Vol] 40 U/L Normal 32-92 [facility] Comment on above: Performed By: #### C BC, CK, CMP, CRP, T4F, TSH3, ESR #### [address] ALT [Catalytic activity/Vol] 10 U/L Normal 10-60 [facility] Comment on above: Performed By: #### C BC, CK, CMP, CRP, T4F, TSH3, ESR #### [place] [address] [place] AST [Catalytic activity/Vol] 15 U/L Normal 10-42 [facility] Comment on above: Performed By: #### C BC, CK, CMP, CRP, T4F, TSH3, ESR #### [facility] [address] Bilirubin [Mass/Vol] 0.6 mg/dL Normal 0.3-1.2 [facility] Comment on above: Performed By: #### C BC, CK, CMP, CRP, T4F, TSH3, ESR #### [facility] [address] Calcium [Mass/Vol] 9.6 mg/dL Normal 8.2-10.2 [facility] Comment on above: Performed By: #### C BC, CK, CMP, CRP, T4F, TSH3, ESR #### [address] Chloride [Moles/Vol] 103 mmol/L Normal 95-114 [facility] Comment on above: Performed By: #### C BC, CK, CMP, CRP, T4F, TSH3, ESR #### [address] CO2 [Moles/Vol] 26.6 mmol/L Normal 22.0-30.0 [facility] Comment on above: Performed By: #### C BC, CK, CMP, CRP, T4F, TSH3, ESR #### [address] Creatinine [Mass/Vol] 0.79 mg/dL Normal 0.44-1.03 [facility] Comment on above: Performed By: #### C BC, CK, CMP, CRP, T4F, TSH3, ESR #### [address] Estimated GFR ( Kimberly > 60 Normal [facility] Comment on above: Result Comment: GFR estimated reference range: According to KDOQI guidelines, <60 ml/min/1.73m2 is sufficient to diagnose a patient with chronic kidney disease. Performed By: #### C BC, CK, CMP, CRP, T4F, TSH3, ESR #### [facility] [address] Estimated GFR (Non- Am > 60 Normal [facility] Comment on above: Performed By: #### C BC, CK, CMP, CRP, T4F, TSH3, ESR #### [facility] [address] Globulin (S) [Mass/Vol] 2.6 g/dL Normal [facility] Comment on above: Performed By: #### C BC, CK, CMP, CRP, T4F, TSH3, ESR #### [facility] [address] Glucose [Mass/Vol] 87 mg/dL Normal 70-100 [facility] Comment on above: Result Comment: [facility] Glucose Reference Range is dependent on time and content of last meal. Glucose of more than 200 mg/dL in a nonstressed, ambulatory subject supports the diagnosis of Diabetes Mellitus. ADA recommended reference range Performed By: #### C BC, CK, CMP, CRP, T4F, TSH3, ESR #### [facility] [address] Potassium [Moles/Vol] 4.2 mmol/L Normal 3.5-5.1 [facility] Comment on above: Performed By: #### C BC, CK, CMP, CRP, T4F, TSH3, ESR #### [facility] [address] Protein [Mass/Vol] 6.6 g/dL Normal 6.1-7.9 [facility] Comment on above: Performed By: #### C BC, CK, CMP, CRP, T4F, TSH3, ESR #### [facility] [address] Sodium [Moles/Vol] 140 mmol/L Normal 136-146 [facility] Comment on above: Performed By: #### C BC, CK, CMP, CRP, T4F, TSH3, ESR #### [facility] [address] [place] [address] [place] Urea nitrogen [Mass/Vol] 12 mg/dL Normal 9-23 [facility] Comment on above: Performed By: #### C BC, CK, CMP, CRP, T4F, TSH3, ESR #### [facility] [address] Creatine Kinaseon 04-06-2019 CK [Catalytic activity/Vol] 46 U/L Normal 22-269 [facility] Comment on above: Result Comment: PERF ORMED BY: [place] [address] PATHOLOGIST NUT SORTER ROSLYN TALLEY M.D. Performed By: #### C BC, CK, CMP, CRP, T4F, TSH3, ESR #### [facility] [address] [place] [address] Dipstick and Microscopicon 1 Appearance (U) Turbid Critically abnormal Clear [facility] Comment on above: Order Comment: Name Collection Type:: Clean-Voided Midstream Performed By: #### A DDONUAPLUS, PT, PTT #### [facility] [address] [place] [address] [place] Bacteria LM.HPF (Urine sed) [#/Area] 1+ High None Seen [facility] Comment on above: Order Comment: Name Collection Type:: Clean-Voided Midstream Performed By: #### A DDONUAPLUS, PT, PTT #### [place] [address] [place] Bilirubin,Urine Negative Normal Negative [facility] Comment on above: Order Comment: Name Collection Type:: Clean-Voided Midstream Performed By: #### A DDONUAPLUS, PT, PTT #### [facility] [address] [place] [address] [place] Color (U) Yellow Normal Yellow [facility] Comment on above: Order Comment: Name Collection Type:: Clean-Voided Midstream Performed By: #### A DDONUAPLUS, PT, PTT #### [facility] [address] [place] [address] [place] Glucose Ql (U) Normal Normal Normal [facility] Comment on above: Order Comment: Name Collection Type:: Clean-Voided Midstream Performed By: #### A DDONUAPLUS, PT, PTT #### [facility] [address] [place] [address] Hyaline Casts,Urine None Seen Normal 0-1 [facility] Comment on above: Order Comment: Name Collection Type:: Clean-Voided Midstream Performed By: #### A DDONUAPLUS, PT, PTT #### [facility] [address] [place] [address] [place] Ketones Ql (U) Trace High Negative [facility] Comment on above: Order Comment: Name Collection Type:: Clean-Voided Midstream Performed By: #### A DDONUAPLUS, PT, PTT #### [address] Leukocyte esterase Test strip Ql (U) 3+ High Negative [facility] Comment on above: Order Comment: Name Collection Type:: Clean-Voided Midstream Performed By: #### A DDONUAPLUS, PT, PTT #### [facility] [address] [place] [address] [place] Nitrite,Urine Negative Normal Negative [facility] Comment on above: Order Comment: Name Collection Type:: Clean-Voided Midstream Performed By: #### A DDONUAPLUS, PT, PTT #### [place] [address] [place] Occult Blood,Urine Negative Normal Negative [facility] Comment on above: Order Comment: Name Collection Type:: Clean-Voided Midstream Performed By: #### A DDONUAPLUS, PT, PTT #### [facility] [address] [place] [address] Other Casts,Urine None Seen Normal None Seen [facility] Comment on above: Order Comment: Name Collection Type:: Clean-Voided Midstream Result Comment: PERF ORMED BY: [place] [address] PATHOLOGIST NUT SORTER ROSLYN TALLEY M.D. Performed By: #### A DDONUAPLUS, PT, PTT #### [address] [place] [address] [place] pH (U) 5.0 [pH] Normal 5.0-9.0 [facility] Comment on above: Order Comment: Name Collection Type:: Clean-Voided Midstream Performed By: #### A DDONUAPLUS, PT, PTT #### [address] Protein (U) [Mass/Vol] Negative Normal Negative [facility] Comment on above: Order Comment: Name Collection Type:: Clean-Voided Midstream Performed By: #### A DDONUAPLUS, PT, PTT #### [facility] [address] [place] [address] RBC LM.HPF (Urine sed) [#/Area] 5-9 High 04 [facility] Comment on above: Order Comment: Name Collection Type:: Clean-Voided Midstream Performed By: #### A DDONUAPLUS, PT, PTT #### [address] Specificy [place],Urine 1.024 Normal 1.001-1.030 [facility] Comment on above: Order Comment: Name Collection Type:: Clean-Voided Midstream Performed By: #### A DDONUAPLUS, PT, PTT #### [address] Squamous Epithelial Cell,Urine 5-9 High 0-2 [facility] Comment on above: Order Comment: Name Collection Type:: Clean-Voided Midstream Performed By: #### A DDONUAPLUS, PT, PTT #### [place] [address] [place] Urobilinogen,Urine Normal Normal Normal [facility] Comment on above: Order Comment: Name Collection Type:: Clean-Voided Midstream Performed By: #### A DDONUAPLUS, PT, PTT #### [place] [address] [place] WBC LM.HPF (Urine sed) [#/Area] 20-49 High 0-4 [facility] Comment on above: Order Comment: Name Collection Type:: Clean-Voided Midstream Performed By: #### A DDONUAPLUS, PT, PTT #### [address] Erythrocyte Sedimentation Ra roosevelt 04-06-2019 ESR (Bld) [Velocity] 23 mm/h Normal 0-30 [facility] Comment on above: Result Comment: PERF ORMED BY: [place] [address] PATHOLOGIST NUT SORTER ROSLYN TALLEY M.D. Performed By: #### C BC, CK, CMP, CRP, T4F, TSH3, ESR #### [address] Free T4 (Free Thyroxine)on 1 Free T4 [Mass/Vol] 0.88 ng/dL Normal 0.61-1.12 [facility] Comment on above: Performed By: #### C BC, CK, CMP, CRP, T4F, TSH3, ESR #### [address] Partial Thromboplastin Timeo n 04-06-2019 aPTT Coag (Bld) [Time] 29.8 s Normal 23.0-35.0 [facility] Comment on above: Order Comment: List the anticoagulant: NONE Result Comment: PERF ORMED BY: [place] [address] PATHOLOGIST NUT SORTER ROSLYN TALLEY M.D. Performed By: #### A DDONUAPLUS, PT, PTT #### [address] Prothrombin Time INRon 04-06 INR Coag (Bld) [Relative time] 10.3 s Normal 9.0-12.9 [facility] Comment on above: Order Comment: List the anticoagulant: NONE Performed By: #### A DDONUAPLUS, PT, PTT #### [address] INR Coag (PPP) [Relative time] 0.9 {INR} Normal [facility] Comment on above: Order Comment: [...] By: #### A DDONUAPLUS, PT, PTT #### [facility] [id number] [facility] Thyroid Stimulating Hormoneo n 04-06-2019 TSH Qn 2.89 u[iU]/mL Normal 0.45-5.33 [facility] Comment on above: Result Comment: PERF ORMED BY: [place] [address] PATHOLOGIST NUT SORTER ROSLYN TALLEY M.D. Performed By: #### C BC, CK, CMP, CRP, T4F, TSH3, ESR #### [place] [id number] [facility] Vital Signs Date Time Vital Sign Value Performing Clinician Facility 02-16-2024 [id number] Body height 160.02 cm DO Casandra Chopra Work Phone: [facility] 02-16-2024 09:19-0400 Body mass index (BMI) [Ratio] 30.6 kg/m2 DO Casandra Chopra Work Phone: [facility] 02-16-2024 09:19-040 Body temperature 97.9 [degF] DO Casandra Chopra Work Phone: [facility] 02-16-2024 09:19-0400 Body weight 78.47 kg DO Casandra Chopra Work Phone: [facility] 02-16-2024 09:19-0400 Diastolic blood pressure 74 mm[Hg] DO Casandra Chopra Work Phone: [facility] 02-16-2024 09:19-0400 Heart rate 48 /min DO Casandra Chopra Work Phone: [facility] 02-16-2024 09:19-0400 SaO2% (BldA) [Mass fraction] 99 % DO Casandra Chorpa Work Phone: [facility] 02-16-2024 09:19-0400 Systolic blood pressure 116 mm[Hg] DO Casandra Chopra Work Phone: [facility] 05-05-2023 09:10-0400 Body height 160.02 cm Casandra Chopra Other [employer] [facility] [employer] Other 05-05-2023 09:10-0400 Body mass index (BMI) [Ratio] 31.35 kg/m2 Casandra Chopra Other [employer] Other 05-05-2023 09:10-0400 Body temperature 98.9 [degF] Casandra Chopra Other [employer] Other 05-05-2023 09:10-0400 Body weight 80.29 kg Casandra Chopra Other [employer] Other 05-05-2023 09:10-0400 Diastolic blood pressure 68 mm[Hg] Casandra Chopra Other [employer] Other 05-05-2023 09:10-0400 Respiratory rate 18 /min Casandra Chopra Other [facility] Other 05-05-2023 09:10-0400 SaO2% (BldA) [Mass fraction] 98 % Casandra Chopra Other [employer] Other 05-05-2023 09:10-0400 Systolic blood pressure 112 mm[Hg] Casandra Chopra Other [employer] Other 02-23-2023 11:40-0400 Body height 160.02 cm Eva Blades Other [facility] Other 02-23-2023 11:40-0400 Body mass index (BMI) [Ratio] 31.35 kg/m2 Eva Blades Other [facility] Other 02-23-2023 11:40-0400 Body weight 80.29 kg Eva Blades Other [employer] Other 02-23-2023 11:40-0400 Diastolic blood pressure 78 mm[Hg] Eva Blades Other [facility] Other 02-23-2023 11:40-0400 Systolic blood pressure 110 mm[Hg] Eva Blades Other [facility] Other 12-29-2022 10:00-0400 Body height 160.02 cm Germaine Manuel Other [employer] Other 12-29-2022 10:00-0400 Body mass index (BMI) [Ratio] 30.82 kg/m2 Germaine Manuel Other [employer] Other 12-29-2022 10:00-0400 Body weight 78.93 kg Germaine Manuel Other [employer] Other 12-29-2022 10:00-0400 Diastolic blood pressure 68 mm[Hg] Germaine Manuel Other [facility] Other 12-29-2022 10:00-0400 Systolic blood pressure 118 mm[Hg] Germaine Manuel Other [facility] Other 10-28-2022 10:10-0400 Body height 160.02 cm Casandra Chopra Other [facility] Other 10-28-2022 10:10-0400 Body mass index (BMI) [Ratio] 31.7 kg/m2 Casandra Xochitllaura Other [employer] Other 10-28-2022 10:10-0400 Body temperature 97.6 [degF] Casandra Chopra Other [employer] Other 10-28-2022 10:10-0400 Body weight 81.19 kg Casandra Xochitllaura Other [employer] Other 10-28-2022 10:10-0400 Diastolic blood pressure 68 mm[Hg] Casandra Chopra Other [employer] Other 10-28-2022 10:10-0400 Respiratory rate 18 /min Casandra Chopra Other [employer] Other 10-28-2022 10:10-0400 SaO2% (BldA) [Mass fraction] 99 % Casandra Chopra Other [facility] Other 10-28-2022 10:10-0400 Systolic blood pressure 112 mm[Hg] Casandra Chopra Other [facility] Other 02-04-2022 15:05-0400 Blood Pressure Location Russell BENITEZL [facility] [place] 02-04-2022 15:05-0400 Diastolic blood pressure 60 mm[Hg] Russell NILL [facility] [place] 02-04-2022 15:05-0400 Heart rate 72 /min Russell BENITEZL [facility] [place] 08-02-2022 15:05-0400 Respiratory rate 16 /min Russell HARRELL [facility] [place] 02-04-2022 15:05-0400 Systolic blood pressure 116 mm[Hg] Russell HARRELL [facility] [place] 10-17-2021 09:50-0400 Body height 160.02 cm Casandra Chopra Other [employer] Other 10-17-2021 09:50-0400 Body mass index (BMI) [Ratio] 31 kg/m2 Casandra Chopra Other [employer] Other 10-17-2021 09:50-0400 Body temperature 97.8 [degF] Casandra Chopra Other [employer] Other 10-17-2021 09:50-0400 Body weight 79.38 kg Casandra Chopra Other [employer] Other 10-17-2021 09:50-0400 Diastolic blood pressure 64 mm[Hg] Casandra Chopra Other [employer] Other 10-17-2021 09:50-0400 Respiratory rate 18 /min Casandra Chopra Other [facility] Other 10-17-2021 09:50-0400 SaO2% (BldA) [Mass fraction] 97 % Casandra Chopra Other [facility] Other 10-17-2021 09:50-0400 Systolic blood pressure 102 mm[Hg] Casandra Chopra Other [employer] Other 09-04-2021 09:10-0500 Body height 160.02 cm Casandra Chopra Other [employer] Other 09-04-2021 09:10-0500 Body mass index (BMI) [Ratio] 30.11 kg/m2 Casandra Chopra Other [employer] Other 09-04-2021 09:10-0500 Body temperature 97.6 [degF] Casandra Chopra Other [facility] Other 09-04-2021 09:10-0500 Body weight 77.11 kg Casandra Chopra Other [facility] Other 09-04-2021 09:10-0500 Diastolic blood pressure 68 mm[Hg] Casandra Chopra Other [facility] Other 09-04-2021 09:10-0500 Respiratory rate 18 /min Casandra Chopra Other [employer] Other 09-04-2021 09:10-0500 SaO2% (BldA) [Mass fraction] 99 % Casandra Chopra Other [facility] Other 09-04-2021 09:10-0500 Systolic blood pressure 104 mm[Hg] Casandra Chopra Other [employer] Other 04-10-2021 10:10-0400 Body height 160.02 cm Casandra Chopra Other [employer] Other 04-10-2021 10:10-0400 Body mass index (BMI) [Ratio] 31 kg/m2 Casandra Chopra Other [employer] Other 04-10-2021 10:10-0400 Body temperature 97.4 [degF] Casandra Chopra Other [facility] Other 04-10-2021 10:10-0400 Body weight 79.38 kg Casandra Chopra Other [employer] Other 04-10-2021 10:10-0400 Diastolic blood pressure 76 mm[Hg] Casandra Chopra Other [facility] Other 04-10-2021 10:10-0400 Respiratory rate 18 /min Casandra Chopra Other [facility] Other 04-10-2021 10:10-0400 SaO2% (BldA) [Mass fraction] 99 % Casandra Chopra Other [facility] Other 04-10-2021 10:10-0400 Systolic blood pressure 118 mm[Hg] Casandra Chopra Other [employer] Other Encounters Encounter Date Encounter Type Care Provider Facility Start: 02-23-2024 End: 02-23-2024 ambulatory Domingo George Facility:[facility] Start: 02-23-2024 End: 02-23-2024 Patient encounter procedure PHYSICIAN NO [facility] Work Phone: Start: 02-16-2024 End: 02-16-2024 ambulatory Casandra Chopra [facility] Work Phone: Start: 02-16-2024 End: 02-16-2024 Departed Referred DO Casandra Chopra Work Phone: [facility] [place] Work Phone: Start: 02-16-2024 End: 02-16-2024 Patient encounter procedure DO Casandra Chopra Work Phone: [facility] [place] Work Phone: Start: 02-10-2024 Non-patient / Non-visit DO Casandra Chopra Work Phone: [facility] Work Phone: Start: 01-25-2024 Non-patient / Non-visit DO Casandra Chopra Work Phone: [facility] Work Phone: Start: 12-04-2023 Non-patient / Non-visit DO Casandra Chopra Work Phone: [facility] Work Phone: Start: 05-12-2023 End: 05-12-2023 ambulatory Casandra Chopra Other [facility] [employer] Other Start: 05-12-2023 Telephone encounter Casandra Chopra [facility] Family [facility] [place] Start: 05-05-2023 End: 05-05-2023 ambulatory Casandra Chopra Other [facility] [employer] Other Start: 05-05-2023 Office outpatient visit 25 minutes Casandra Chopra [facility] [place] Start: 05-05-2023 Telephone encounter Casandra Chopra [facility] [place] Start: 02-23-2023 End: 02-23-2023 ambulatory Eva Cortes Other [facility] [employer] Other Start: 02-23-2023 Office outpatient visit 15 minutes Eva Sebastian [facility] Start: 02-19-2023 End: 02-19-2023 ambulatory DO Josiah Samuel Work Phone: [facility] Work Phone: Start: 02-19-2023 End: 02-19-2023 Patient encounter procedure DO Josiah Samuel Work Phone: [facility] [place] Work Phone: Start: 02-12-2023 End: 02-12-2023 ambulatory Casandra Chopra Other [employer] Other Start: 02-12-2023 Telephone encounter Casandra Chopra [facility] [place] Start: 02-02-2023 End: 02-02-2023 ambulatory Casandra Chopra Other [facility] Other Start: 02-02-2023 Telephone encounter Casandra Chopra [facility] [place] Start: 12-30-2022 End: 12-30-2022 ambulatory Germaine Manuel Other [employer] Other Start: 12-30-2022 Telephone encounter Germaineshannan Manuel [facility] [employer] Start: 12-29-2022 End: 12-29-2022 ambulatory Germaine Manuel Other [employer] Other Start: 12-29-2022 Office outpatient ne w 45 minutes Germaine Mar [facility] Start: 12-02-2022 End: 12-03-2022 ambulatory CHRISSY VENEGAS . Facility:[facility] Start: 10-28-2022 End: 10-28-2022 ambulatory Casandra Chopra Other [employer] Other Start: 10-28-2022 Office outpatient visit 25 minutes Casandra Chopra [facility] [place] Start: 10-22-2022 End: 10-23-[address] CASANDRA CHOPRA Facility:[facility] Start: 09-15-2022 End: 09-15-2022 ambulatory Casandra Chopra Other [employer] Other Start: 09-15-2022 Telephone encounter Casandra Chopra [facility] [place] Start: 08-18-2022 End: 08-19-[address] CASANDRA CHOPRA Facility:[facility] Start: 05-12-2022 End: 05-13-[address] CASANDRA CHOPRA Facility:[facility] Start: 05-05-2022 End: 05-05-2022 ambulatory Casandra Chopra Other [employer] Other Start: 05-05-2022 Telephone encounter Casandra Chopra [facility] [place] Start: 05-01-2022 End: 05-02-[address] CASANDRA CHOPRA Facility:[facility] Start: 04-14-2022 End: 04-15-[address] CASANDRA CHOPRA Facility:[facility] Start: 02-19-2022 End: 02-20-[address] CASANDRA CHOPRA Facility:[facility] Start: 02-04-2022 End: 02-04-2022 Patient encounter procedure Russell Chávez NILRenetta [facility] N[facility] [place] Start: 12-30-2021 End: 12-31-[address] CASANDRA CHOPRA Facility:[facility] Start: 12-16-2021 End: 12-17-[address] CASANDRA CHOPRA Facility:[facility] Start: 12-03-2021 End: 12-03-2021 ambulatory Casandra Chopra Other [employer] Other Start: 12-03-2021 Telephone encounter Casandra Chopra [facility] [place] Start: 10-22-2021 End: 10-22-2021 ambulatory Casandra Chopra Other [employer] Other Start: 10-22-2021 Telephone encounter Casandra Chopra [facility] [place] Start: 10-17-2021 End: 10-17-2021 ambulatory Casandra Chopra Other [employer] Other Start: 10-17-2021 Office outpatient visit 25 minutes Casandra Chopra [facility] [place] Start: 10-17-2021 Telephone encounter Casandra Chopra [facility] [place] Start: 09-04-2021 End: 09-04-2021 ambulatory Casandra Chopra Other [employer] Other Start: 09-04-2021 Office outpatient visit 15 minutes Casandra Chopra [facility] [place] Start: 04-24-2021 Telephone encounter Casandra Chopra [facility] [place] Start: 04-10-2021 Office outpatient visit 15 minutes Casandra Chopra [facility] [place] Procedures Date Procedure Procedure Detail Performing Clinician Start: 02-23-2024 X-ray of left knee PHYS ICIAN NO FAMILY Start: 02-23-2024 X-ray of right knee PHY CATHERINE NO FAMILY Start: 02-16-2024 Urine culture PHYSICIAN NO FAMILY Start: 02-19-2023 MR thoracic spine wo con [...] spine Russell NILL Ligation of fallopian tube M ichjanice NILL Release of tendon Russell NI LL Comment on above: left elbow Screening for malign ant neoplasm of breast Casandra Chopra Other Total abdominal hysterectomy with bilateral salpingo-oophorectomy Russell NILL Plan of Treatment Date Care Activity Detail Author Start: 02-16-2024 Bacteria identified in Urine by Culture [facility] Immunizations Immunization Date Immunization Notes Care Provider Shyla hall 04-20-2021 COVID-19 Vaccine Pfizer - Documentation Purposes Only Casandra Chopra Other [facility] 04-10-2021 influenza, seasonal, injectable Patient Objection Casandra Chopra Other [facility] Other 03-30-2021 COVID-19 Vaccine Pfizer - Documentation Purposes Only Casandra Chopra Other [facility] 11-21-2016 Toradol per 15 mg Casandra Calderon in Other [facility] Other 06-02-2016 influenza, seasonal, injectable Patient Objection Casandra Chopra Other [employer] Other 06-02-2016 pneumococcal polysaccharide vaccine, 23 valent Patient Objection Casandra Chopra Other [employer] Other 03-23-2012 Kenalog 40/Xylocaine Casandra mendieta Other [employer] Other NEGATED: Highlighted row has not occurred! 1 influenza, seasonal, injectable Patient Objection Casandra Chopra Other [facility] NEGATED: Highlighted row has not occurred! 6 influenza, seasonal, injectable Patient Objection Casandra Chopra Other [facility] NEGATED: Highlighted row has not occurred! 6 pneumococcal polysaccharide vaccine, 23 valent Patient Objection Casandra Chopra Other [facility] Payers Date Payer Category Payer Private Health Insurance [id number] Self-pay [id number] 2019 Medicare [id number] [id number] [id number] 1959 Medicare [id number] 2. [id number] 1957 Medicare [id number] 1959 Private Health Insurance [id number] 1959 Unknown [id number] 1952 Unknown [id number] 2.16.84 [id number] 1952 Unknown [id number] 2.16.84 [id number] 1952 Unknown [id number] 2.16.84 [id number] 1952 Unknown [id number] 2.16.84 0.1.519949.3.579.2.593 1952 Unknown [id number] 2.16.84 0.1.281494.3.579.2.593 1952 Unknown [id number] 2.16.84 0.1.724466.3.579.2.593 1952 Unknown [id number] 2.16.84 0.1.190561.3.579.2.593 1952 Unknown [id number] 2.16.84 0.1.172564.3.579.2.593 1952 Unknown [id number] 2.16.84 0.1.774551.3.579.2.593 1952 Unknown [id number] 2.16.84 [id number] Unknown [id number] 2.16.8 [id number] Unknown [id number] 2.16.8 [id number] Social History Date Type Detail Facility Unknown if ever smoked [facility] [employer] Other Start: 07-06-1986 Sex Assigned At N [facility] [employer] Other Start: 02-04-2022 Tobacco smoking status Heavy t obacco smoker (finding) [facility] [place] Tobacco smoking status Never Gener al [facility] [place] Start: 1950 Sex Assigned At Female F [facility] Start: 11-04-2023 [facility] Functional Status Date Assessment Result Facility 02-04-2022 Functional Status N/A General [facility] [place] Clinical Notes 08-11-2012 to 02-16-2024 Note Date & Type Note Facility 02-16-2024 Evaluation note Authored February 16, 2024 10:49am The above note written by __ _Hero Cody____ acting as human recorder, note dictated by _Nav .I performed the above HPI, ROS, and Examination. I formulated and dictated the treatment plan and was present for entire encounter. Casandra Chopra D.O. [facility] Work Phone: [phone] 877-190410-31-2023 Evaluation note* Encounter Date Diagnosis Assessment Notes Treatment Notes Treatment Clinical Notes Apr, Hematuria (ICD-10 - R31.9) [facility] Other 10-31-2023 Evaluation note* Encounter Date Diagnosis [...] with above medications as directed. 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 She has not been mulching. [facility] Other 08-21-2023 Evaluation note* Encounter Date Diagnosis Assessment Notes Treatment Notes Treatment Clinical Notes Feb, Compression fracture of T8 vertebra with routine healing, subsequent encounter (ICD-10 - S22.060D) [facility] Other 06-26-2023 Evaluation note* Encounter Date Diagnosis [...] (ICD-10 - R26.81) Dec, Other [facility] reviewed [facility] Other 04-25-2023 Evaluation note* Encounter Date Diagnosis [...] use above medications as needed. Oct, Other senior living (current) drug therapy (ICD-10 - Z79.899) Oct, Polyarthralgia (ICD-10 - M25.50) She does continue to follow with Dr. Bell and his COMPOSITION MOLDER as scheduled. Oct, COPD (chronic obstructive pulmonary [...] breaths out before she lifts anything heavy. [facility] Other 03-13-2023 Evaluation note* Encounter Date Diagnosis Assessment Notes Treatment Notes Treatment Clinical Notes Sep, Hyperlipidemia (ICD-10 - E78.5) [facility] Other 10-31-2022 Evaluation note* Encounter Date Diagnosis Assessment Notes Treatment Notes Treatment Clinical Notes Apr, Hematuria (ICD-10 - R31.9) [facility] Other 08-04-2022 NoteChief Complaint consultation for ventral hernia HPI Staff 71 year old female presents on consultation from Dr. Chopra for ventral hernia. Reports she moved aheavy object two months ago. Noted epigastric lump several [...] tab(s), Oral, Daily potassium (more content not included)...[facility]Result Comment: Electronically Signed By: SHARRI BECKER, Russell Valverde\Date and Time Signed: 02/06/22 10:42 [id number] Evaluation note* Encounter Date Diagnosis Assessment Notes [...] than others. Her blood level is normal. 14 Oct, 2021 Impacted cerumen (ICD-10 - H61.20) right ear She is here today for a right ear irrigation. Verbal consent was obtained prior to the procedure. Right ear was irrigated with success. She will plan on using Debrox prior to each appointment and will plan to have her ears irrigated at each appointment. 14 Oct, 2021 Polyarthralgia (ICD-10 - M25.50) Continue to follow [...] with above medication as needed. Oct, Other senior living (current) drug therapy (ICD-10 - Z79.899) Oct, [...] will let me know if it worsens. [facility] Other 03-02-2022 Evaluation note* Encounter Date Diagnosis [...] she was putting dishes away from the information assistant and had to grab the sink when she stood up but she thought she had a sugar low due to eating a pop tart. When she was seen by Dr. Bell's COMPOSITION MOLDER her BP was 80/60 so they wanted [...] stress is going to go down soon. [facility] Other 10-06-2021 Evaluation note* Encounter Date Diagnosis [...] with above medication as needed. Apr, Other senior living (current) drug therapy (ICD-10 - Z79.899) Apr, Other She voices that if she does not take Cranberry tablets her urine becomes thick so she does take the supplement daily. She will be getting her second COVID-19 vaccine on 04-20-21. [facility] Other 02-06-2013 History general Narrative - Reported* Type Description Date Medical History left shoulder & elbow problems Medical History 08/11/12 Cervical spine x-ray [facility] Medical History 10/26/14 refused colonoscopy Medical History [...] Colonoscopy, Dr. Adama varma, needs repeat in 7 years 06-09-2018 Hospitalization History above Hospitalization History natural 05/29/19 76 Hospitalization History natural 7 [facility] Other 02-06-2013 History general Narrative - Reported* Type Description Date Medical History left shoulder & elbow problems Medical History 08/11/12 Cervical spine x-ray [facility] Medical History 10/26/14 refused colonoscopy Medical History Heart palpitations Medical History Heart palpitations Medical History varicose veins Medical History 10/22/2016 Refused Mammogram Surgical History neck Surgical History DIXIE BSO Surgical History bunion right foot Surgical History Lt shoulder scope 03-24 Surgical History Rt hammertoe repair Surgical History Dr. Ayanna SHINE Venous ab lasion and microphlebtomy left LE 10/08/16 Surgical History tubal ligation 02/1977 Surgical History cataract surgery both eyes Pars boone 2017 Surgical History Colonoscopy, Dr. Adama varma, needs repeat in 202406-09-2018 Hospitalization History above Hospitalization History natural 05/29/19 Hospitalization History natural 7 [facility] Other 02-06-2013 History general Narrative - Reported* Type Description Date Medical History left shoulder & elbow problems Medical History 08/11/12 Cervical spine x-ray [facility] Medical History 10/26/14 refused colonoscopy Medical History Heart palpitations Medical History Heart palpitations Medical History varicose veins Medical History 10/22/2016 Refused Mammogram Medical History Arthritis Medical History osteoporosis Surgical History neck Surgical History DIXIE BSO Surgical History bunion right foot Surgical History Lt shoulder scope 03-24 Surgical History Rt hammertoe repair Surgical History Dr. Ayanna SHINE Venous ab lasion and microphlebtomy left LE 10/08/16 Surgical History tubal ligation 02/1977 Surgical History cataract surgery both eyes Pars boone 2017 Surgical History Colonoscopy, Dr. Adama varma, needs repeat in 202406-09-2018 Surgical History back surgery Hospitalization History above Hospitalization History natural 05/29/19 74 Hospitalization History natural 7 [facility] Other 02-06-2013 History general Narrative - Reported* Type Description Date Medical History left shoulder & elbow problems Medical History 08/11/12 Cervical spine x-ray [facility] Medical History 10/26/14 refused colonoscopy Medical History [...] natural 05/29/19 74 Hospitalization History natural 7 [facility] [employer] Other evaluation + Plan note No data available for this section General [facility] [place] Evaluation noteNo [facility] [employer] Other Evaluation noteNo assessment information available [facility] Work Phone: Hospital Discharge instructions No data available for this section [facility] [place] Progress note No data available for this section General Surgery [place] Summary Purpose Family History Relationship Condition Age at Onset Recorded Date/T faisal father Unknown Heart disease Unknown Asthma Unknown grandparent Diabetes mellitus Unknown grandparent Malignant neoplasm of stomach Unknown Malignant neoplasm Unknown mother History of stroke Unknown Unknown Advance Directives Advance Directive Response Recorded Date/ Time Advance Directives No April 07, 2019 4:41pm Chief Complaint and Reason for Visit Chief Complaint S22.060A Chief Complaint fatigue/revew knee x ray Reason for Visit Abnormal finding on urinalysis Anemia COPD (chronic obstructive pulmonary disease) Diarrhea Fatigue Hyperlipidemia Knee pain, right Leukocytes in urine Polyarthralgia Weight loss Chief Complaint fatigue/revew knee x ray R82.[address] CHOPRA RT KNEE PAIN, WX M25.561 - Pain in right knee needs weightbearing Reason for Visit Abnormal finding on urinalysis Anemia COPD (chronic obstructive pulmonary disease) Diarrhea Fatigue Hyperlipidemia Knee pain, right Leukocytes in urine Polyarthralgia Weight loss Primary osteoarthritis of right knee Reason for Referral Reason appt pt needs cons ult to evaluate left ear pain Diagnosis 1 Ear pain, left (H92. 02) Referral Organization [facility] Family [facility] [place] Referring Provider First Name Casandra Referring Provider Last Name Nav Referring Provider Specialty Family Prac amanda Referred Organization [facility] Referred Provider Beth Blanton Referred Address ,[place], [place],[address] Referred Provider Specialty Ear, Nose an d Throat Referral Priority Routine General Notes Eva Weaver 05/05/2023 10:59:36 AM > referral faxed thru [facility] with visit note and insurance card. pt understands she will be contacted to schedule this appt. Additional Source Comments INFORMATION SOURCE (unrecogn ized section and content) DATE CREATED AUTHOR 04/07/2019 [facility] DATE CREATED AUTHOR AUTHOR'S ORGANIZ ATION 03/01/2022 Beckford Elko [facility] DATE CREATED AUTHOR AUTHOR'S ORGANIZ ATION 12/12/2022 [facility] DATE CREATED AUTHOR AUTHOR'S ORGANIZ ATION 02/23/2024 [facility] REASON FOR VISIT (unrecogniz ed section and content) review labsstarting medBP/ea rsclinicalreview labs/ear irrigationclinicalClinical Acute MedicineClinicalrefillreview labs/ear irrigationappt , pt needs consult to discuss compression fracture T8 seen on CT scanNeurosurgery Office NotesClinical/ear lobesupdates/p thoracic MRI secondary to T8 compression fractureClinicalClinicalreview labs/possible ear irrigationClinical Care Team (unrecognized sect ion and content) Team Status: Active Member Role Status Dates Casandra Chopra DO Primary Care Provider Active Team Status: Active Member Role Status Dates Casandra Chopra DO Primary Care Provide r, Attending Provider Active Start: December 04, 2023 Team Status: Active Member Role Status Dates Casandra Chopra DO Primary Care Provider Active S tart: January 25, 2024 Sebastian Bell MD Attending Provider Active St art: January 25, 2024 Team Status: Active Member Role Status Dates Casandra Chopra DO Primary Care Provider Active S tart: February 10, 2024 Sebastian Bell MD Attending Provider Active St art: February 10, 2024 Team Status: Inactive Member Role Status Dates Casandra Chopra DO Primary Care Provide r, Attending Provider Active Start: February 16, 2024 End: February 16, 2024 Team Status: Inactive Member Role Status Cayden Chopra DO Attending Provider Active Star t: February 16, 2024 End: February 16, 2024 PHYSICIAN NO FAMILY Primary Care Provider Active Start: February 16, 2024 End: February 16, 2024 Team Status: Inactive Member Role Status Dates PHYSICIAN NO FAMILY Primary Care Provider Active Start: February 23, 2024 End: February 23, 2024 Domingo George DO Attending Provider Active St art: February 23, 2024 End: February 23, 2024 Team Status: Active Member Role Status Cayden Samuel DO Primary Care Provider Active Team Status: Inactive Member Role Status Dates Josiah Samuel DO Primary Care Provider Active Germaine Manuel NP-C Attending Provider Active Team Status: Active Member Role Status Cayden Chopra DO Primary Care Provide r, Attending Provider Active Start: December 04, 2023 Team Status: Active Member Role Status Cayden Chopra DO Primary Care Provider Active S tart: January 25, 2024 Sebastian Bell MD Attending Provider Active St art: January 25, 2024 Team Status: Active Member Role Status Cayden Chopra DO Primary Care Provider Active S tart: February 10, 2024 Sebastian Bell MD Attending Provider Active St art: February 10, 2024 Team Status: Inactive Member Role Status Cayden Chopra DO Primary Care Provide r, Attending Provider Active Start: February 16, 2024 End: February 16, 2024 Team Status: Inactive Member Role Status Cayden Chopra DO Attending Provider Active Star t: February 16, 2024 End: February 16, 2024 Team Status: Active Member Role Status Cayden Chopra DO Primary Care Provider Active Team Status: Inactive Member Role Status Cayden Chopra DO Attending Provider Active Star t: February 16, 2024 End: February 16, 2024 PHYSICIAN NO FAMILY Primary Care Provider Active Start: February 16, 2024 End: February 16, 2024 Team Status: Inactive Member Role Status Dates PHYSICIAN NO FAMILY Primary Care Provider Active Start: February 23, 2024 End: February 23, 2024 Domingo George DO Attending Provider Active St art: February 23, 2024 End: February 23, 2024 Goals (unrecognized section and content) Goals may [...] BE BASED ON THE PRIMARY CLINICAL RECORDS. [facility]. provides no warranty or guarantee of the accuracy or completeness of information in this document.
[2024-02-24 08:41] LABS: Basophils Absolute Auto 0.1 10^3/uL (0.0-0.1); Basophils Percent Auto 1.3 % (0.2-2.0); Eosinophils Absolute Auto 0.1 10^3/uL (0.0-0.7); Eosinophils Percent Auto 1.4 % (0.9-7.0); Hematocrit 39.6 % (36.0-48.0); Hemoglobin 12.9 g/dL (12.0-16.0); Immature Granulocytes Abs Auto 0.02 10^3/uL (0.00-0.03); Immature Granulocytes Pct Auto 0.3 % (0.0-0.5); Lymphocytes Absolute Auto 1.2 10^3/uL (1.2-3.8); Lymphocytes Percent Auto 16.7 % (20.5-60.0); Mean Corpuscular HGB Conc 32.6 g/dL (29.9-35.2); Mean Corpuscular Hemoglobin 31.2 pg (26.7-34.0); Mean Corpuscular Volume 95.7 fL (81.0-99.0); Mean Platelet Volume 9.4 fL (9.5-13.5); Monocytes Absolute Auto 0.7 10^3/uL (0.3-0.8); Monocytes Percent Auto 9.2 % (1.7-12.0); Neutrophils Absolute Auto 5.1 10^3/uL (1.4-6.5); Neutrophils Percent Auto 71.1 % (43.0-75.0); Platelet Count 222 10^3/uL (150-450); Red Blood Count 4.14 10^6/uL (4.20-5.40); Red Cell Distribution Width 13.7 % (11.0-15.0); White Blood Count 7.2 10^3/uL (4.0-11.0)
[2024-02-24 08:49] LABS: Bilirubin Urine LARGE (NEGATIVE); Blood Urine NEGATIVE (NEGATIVE); Clarity Urine CLEAR (CLEAR); Color Urine LT. YELLOW (YELLOW); Glucose Urine UA NEGATIVE (NEGATIVE); Ketones Urine NEGATIVE (NEGATIVE); Leukocyte Esterase Urine LARGE (NEGATIVE); Nitrite Urine NEGATIVE (NEGATIVE); Protein Urine TRACE mg/dL (NEG/TRACE); Specific Gravity Urine 1.025 (1.005-1.025); Urobilinogen Urine 0.2 EU/dL (0.2-1.0); pH Urine 6.5 (5.0-9.0)
[2024-02-24 08:53] LABS: Bacteria Urine SMALL #/HPF (NONE SEEN); Cast Seen? NONE SEEN #/LPF (NONE SEEN); Crystals Seen? None Seen #/HPF (None Seen); Mucus Urine NONE SEEN (NONE SEEN); Squamous Epithelial Cell Urine MANY #/LPF (NONE/RARE); WBC Urine 20-50 #/HPF (NONE SEEN)
[2024-02-24 08:59] LABS: Erythrocyte Sedimentation Rate 84 mm/hr (<=30)
[2024-02-24 09:08] LABS: Alanine Aminotransferase 27 U/L (14-59); Albumin Globulin Ratio 1.2; Albumin Level 3.9 g/dL (3.4-5.0); Alkaline Phosphatase 41 U/L (46-116); Anion Gap 13.8; Aspartate Amino Transferase 23 U/L (15-37); BUN Creatinine Ratio 24.6; Bilirubin Total 0.5 mg/dL (0.2-1.0); Calcium 8.9 mg/dL (8.5-10.1); Carbon Dioxide 26.2 mmol/L (21.0-32.0); Chloride 100 mmol/L (98-107); Estimated GFR (African America >60 (>=60); Estimated GFR (Non-African Ame >60 (>=60); Globulin 3.3 g/dL; Glucose 85 mg/dL (74-106); Sodium 136 mmol/L (136-145); Total Protein 7.2 g/dL (6.4-8.2)
[2024-02-25 09:09] LABS: Complement C3, Serum 133 mg/dL (82-167); Complement C4, Serum 24 mg/dL (12-38)
[2024-02-25 13:08] LABS: Complement, Total (CH50) >60 U/mL (>41)
== END 2024-02-24 08:16 | disposition home or self-care (01) ==
PROVIDERS: PCP Family Medicine; Visit Provider Internal Medicine Rheumatology
DX: M35.1 Other overlap syndromes (principal); M15.0 Primary generalized (osteo)arthritis; Z79.899 Other long term (current) drug therapy
CPT/HCPCS: 36415; 80053; 81001; 85025; 85652; 86160; 86162

== ENCOUNTER 2024-03-09 09:04 | Outpatient (OUT) | payer MEDICARE, SELFPAY ==
[2024-03-09 09:27] LABS: Basophils Absolute Auto 0.1 10^3/uL (0.0-0.1); Basophils Percent Auto 1.3 % (0.2-2.0); Eosinophils Absolute Auto 0.1 10^3/uL (0.0-0.7); Eosinophils Percent Auto 1.5 % (0.9-7.0); Hematocrit 40.2 % (36.0-48.0); Hemoglobin 13.1 g/dL (12.0-16.0); Immature Granulocytes Abs Auto 0.02 10^3/uL (0.00-0.03); Immature Granulocytes Pct Auto 0.3 % (0.0-0.5); Lymphocytes Absolute Auto 1.2 10^3/uL (1.2-3.8); Lymphocytes Percent Auto 17.7 % (20.5-60.0); Mean Corpuscular HGB Conc 32.6 g/dL (29.9-35.2); Mean Corpuscular Hemoglobin 31.4 pg (26.7-34.0); Mean Corpuscular Volume 96.4 fL (81.0-99.0); Mean Platelet Volume 9.2 fL (9.5-13.5); Monocytes Absolute Auto 0.5 10^3/uL (0.3-0.8); Monocytes Percent Auto 7.9 % (1.7-12.0); Neutrophils Absolute Auto 4.9 10^3/uL (1.4-6.5); Neutrophils Percent Auto 71.3 % (43.0-75.0); Platelet Count 226 10^3/uL (150-450); Red Blood Count 4.17 10^6/uL (4.20-5.40); White Blood Count 6.8 10^3/uL (4.0-11.0)
[2024-03-09 09:28] LABS: Bilirubin Urine NEGATIVE (NEGATIVE); Blood Urine NEGATIVE (NEGATIVE); Clarity Urine CLEAR (CLEAR); Color Urine LT. YELLOW (YELLOW); Glucose Urine UA NEGATIVE (NEGATIVE); Ketones Urine NEGATIVE (NEGATIVE); Leukocyte Esterase Urine SMALL (NEGATIVE); Nitrite Urine NEGATIVE (NEGATIVE); Protein Urine NEGATIVE (NEG/TRACE); Specific Gravity Urine <=1.005 (1.005-1.025); Urobilinogen Urine 0.2 EU/dL (0.2-1.0); pH Urine 6.5 (5.0-9.0)
[2024-03-09 09:41] LABS: Bacteria Urine TRACE #/HPF (NONE SEEN); Mucus Urine NONE SEEN (NONE SEEN); RBC Urine NONE SEEN #/HPF (0-2); Squamous Epithelial Cell Urine FEW #/LPF (NONE/RARE)
[2024-03-09 09:42] LABS: Cast Seen? NONE SEEN #/LPF (NONE SEEN); Crystals Seen? None Seen #/HPF (None Seen)
[2024-03-09 10:01] LABS: Erythrocyte Sedimentation Rate 43 mm/hr (<=30)
[2024-03-09 10:56] LABS: Alanine Aminotransferase 34 U/L (14-59); Albumin Globulin Ratio 1.1; Alkaline Phosphatase 44 U/L (46-116); Anion Gap 13.4; Aspartate Amino Transferase 24 U/L (15-37); BUN Creatinine Ratio 20.5; Bilirubin Total 0.4 mg/dL (0.2-1.0); Calcium 9.1 mg/dL (8.5-10.1); Carbon Dioxide 27.7 mmol/L (21.0-32.0); Chloride 100 mmol/L (98-107); Estimated GFR (African America >60 (>=60); Estimated GFR (Non-African Ame >60 (>=60); Globulin 3.5 g/dL; Glucose 84 mg/dL (74-106); Potassium 4.1 mmol/L (3.5-5.1); Sodium 137 mmol/L (136-145); Total Protein 7.5 g/dL (6.4-8.2)
[2024-03-10 08:13] LABS: Complement C3, Serum 140 mg/dL (82-167); Complement C4, Serum 24 mg/dL (12-38)
[2024-03-10 13:08] LABS: Complement, Total (CH50) >60 U/mL (>41)
== END 2024-03-09 09:05 | disposition home or self-care (01) ==
LOC: LAB 09:06
PROVIDERS: PCP Family Medicine; Visit Provider Internal Medicine Rheumatology
DX: M35.1 Other overlap syndromes (principal); M15.0 Primary generalized (osteo)arthritis; Z79.899 Other long term (current) drug therapy
CPT/HCPCS: 36415; 80053; 81001; 85025; 85652; 86160; 86162

== ENCOUNTER 2024-03-23 08:16 | Outpatient (OUT) | payer MEDICARE, SELFPAY ==
[2024-03-23 08:55] LABS: Basophils Absolute Auto 0.1 10^3/uL (0.0-0.1); Basophils Percent Auto 1.4 % (0.2-2.0); Eosinophils Absolute Auto 0.1 10^3/uL (0.0-0.7); Eosinophils Percent Auto 2.1 % (0.9-7.0); Hematocrit 37.3 % (36.0-48.0); Hemoglobin 12.3 g/dL (12.0-16.0); Immature Granulocytes Abs Auto 0.03 10^3/uL (0.00-0.03); Immature Granulocytes Pct Auto 0.5 % (0.0-0.5); Lymphocytes Absolute Auto 1.1 10^3/uL (1.2-3.8); Mean Corpuscular Hemoglobin 31.8 pg (26.7-34.0); Mean Corpuscular Volume 96.4 fL (81.0-99.0); Mean Platelet Volume 9.4 fL (9.5-13.5); Monocytes Absolute Auto 0.5 10^3/uL (0.3-0.8); Monocytes Percent Auto 9.3 % (1.7-12.0); Neutrophils Absolute Auto 3.9 10^3/uL (1.4-6.5); Neutrophils Percent Auto 67.7 % (43.0-75.0); Platelet Count 192 10^3/uL (150-450); Red Blood Count 3.87 10^6/uL (4.20-5.40); Red Cell Distribution Width 14.1 % (11.0-15.0); White Blood Count 5.8 10^3/uL (4.0-11.0)
[2024-03-23 08:56] LABS: Bilirubin Urine MODERATE (NEGATIVE); Blood Urine NEGATIVE (NEGATIVE); Clarity Urine CLEAR (CLEAR); Color Urine LT. YELLOW (YELLOW); Glucose Urine UA NEGATIVE (NEGATIVE); Ketones Urine NEGATIVE (NEGATIVE); Leukocyte Esterase Urine LARGE (NEGATIVE); Nitrite Urine NEGATIVE (NEGATIVE); Protein Urine NEGATIVE (NEG/TRACE); Urobilinogen Urine 0.2 EU/dL (0.2-1.0); pH Urine 6.5 (5.0-9.0)
[2024-03-23 09:07] LABS: Bacteria Urine TRACE #/HPF (NONE SEEN); Cast Seen? NONE SEEN #/LPF (NONE SEEN); Crystals Seen? None Seen #/HPF (None Seen); Mucus Urine NONE SEEN (NONE SEEN); Squamous Epithelial Cell Urine FEW #/LPF (NONE/RARE); Transitional Epi Cells Urine RARE #/LPF (NONE SEEN)
[2024-03-23 09:12] LABS: Erythrocyte Sedimentation Rate 28 mm/hr (<=30)
[2024-03-23 09:23] LABS: Alanine Aminotransferase 44 U/L (14-59); Albumin Globulin Ratio 1.2; Albumin Level 3.6 g/dL (3.4-5.0); Alkaline Phosphatase 43 U/L (46-116); Anion Gap 9.4; Aspartate Amino Transferase 39 U/L (15-37); BUN Creatinine Ratio 15.5; Bilirubin Total 0.5 mg/dL (0.2-1.0); Calcium 8.5 mg/dL (8.5-10.1); Carbon Dioxide 29.6 mmol/L (21.0-32.0); Chloride 103 mmol/L (98-107); Estimated GFR (African America >60 (>=60); Estimated GFR (Non-African Ame >60 (>=60); Globulin 3.1 g/dL; Glucose 81 mg/dL (74-106); Sodium 138 mmol/L (136-145); Total Protein 6.7 g/dL (6.4-8.2)
[2024-03-24 08:13] LABS: Complement C3, Serum 120 mg/dL (82-167); Complement C4, Serum 22 mg/dL (12-38)
[2024-03-24 14:10] LABS: Complement, Total (CH50) 60 U/mL (>41)
== END 2024-03-23 08:17 | disposition home or self-care (01) ==
LOC: LAB 08:19
PROVIDERS: PCP Family Medicine; Visit Provider Internal Medicine Rheumatology
DX: M35.1 Other overlap syndromes (principal); M15.0 Primary generalized (osteo)arthritis; Z79.899 Other long term (current) drug therapy
CPT/HCPCS: 36415; 80053; 81001; 85025; 85652; 86160; 86162

== ENCOUNTER 2024-03-29 11:17 | Emergency (ER) | payer MEDICARE, SELFPAY ==
[2024-03-29] VITALS (11 sets, daily range): BP systolic 115–123; BP diastolic 70–78; PULSE 67–78; TEMP 36.8; O2SAT 97–100; BMI 28.3
--- OUTSIDE RECORDS SUMMARY | 2024-03-29 11:37 | XMS_ITS | CCD ---
Author Organization [facility] CliniSyri Care Team Providers Care Processing Clerk Name Role Phone Casandra Chopra Unavailable Casandra Chopra Primary Care Physician [phone] NAV, DR GUAJARDO Consulting Unavailable GIRLAURA, DR GUAJARDO Attending Unavailable GIRVIN, DR GUAJARDO Admitting Unavailable GIRVIN, DR GUAJARDO Primary Care Unavailable WEST, DR CASANDRA Mccall Consulting Unavailable GIRVIN, DR GUAJARDO Primary Care Unavailable ZIEBER, DR MARII Chávez Consulting Unavailable NILL ., DR GUTIERREZ Attending Unavailable NILL ., DR GUTIERREZ Admitting Unavailable NILL ., DR GUTIERREZ Consulting Unavailable GIRLAURA, DR GUAJARDO Primary Care [...] Primary Care Provider PITO Manuel Attending Provider SebastianAngelicah Unavailable DO Casandra Chopra Attending Provider NO FAMILY, PHYSICIAN Primary Care Provider Unava ilable DO Domingo George Attending Provider NO FAMILY, PHYSICIAN Primary Care Unavailable Casandra Chopra Admitting Unavailable Casandra Chopra Attending Unavailable Domingo George Admitting Unavailable Domingo George Attending Unavailable NO FAMILY, PHYSICIAN Primary Care Unavailable Domingo George Attending Unavailable Casandra Chopra Primary Care Unavailable Domingo George Admitting Unavailable Allergies Allergy Classification Reported Allergen(s) Allergy Type Date of Onset Reaction(s) Facility (20 sources) buPROPion; Translations: [Bupropion] Drug Allergy Anxiety (finding) [employer] Other (20 sources) traMADol Drug Allergy 4 [facility] (1 source) Acetaminophen / HYDROcodone Drug Allergy [facility] Repository (3 sources) buPROPion; Translations: [bupropion] Drug Allergy 4 made anxiety worse was prescribed by Dr. Venegas [facility] (1 source) traMADol Drug Allergy 4 [facility] Repository Medications Current Medications Medication Drug Class(es) Dates Sig (Normalized) Sig (Original) 8 hr acetaminophen 650 mg extended release oral tablet (18 sources) Start: 11-03-2023 Acetaminophen (Tylenol Arthritis Pain) 650 mg tablet extended release Active 1300 MG PO Every 8 hours November 03, 2023 12:00am take 2 tablets by [facility] every eight hours as needed Tylenol 8 Hour Arthritis Pain 650 MG 2 tablets as needed Orally every 8 hrs Active [id number] 200 actuat albuterol 0.09 mg/actuat metered dose [...] Butler Start: 09-19-2019 take 1 capsule by [facility] every twenty-four hours Colace 100 MG 1 capsule Orally Once a day prn Sep, Not-Taking etodolac 400 mg oral tablet (20 sources) Nonsteroidal Anti-inflammatory Drug Start: 11-04-2023 take 400 mg by mouth twice daily Etodolac Active 400 MG PO Twice daily November 04, 2023 12:00am Start: 06-20-2019 Etodolac 400 M G 1 tablet Orally bid - Dr. Bell Jun, Active Cmszbpvetyn-Kgvgstgtg-Poxjgv er (3 sources) Anticholinergic, Corticosteroid, beta2-Adrenergic Agonist Start: 02-23-2024 Zdpzyvxdczx-Factgnmzw-Hxmlze er (Trelegy Ellipta) 100-62.5-25 mcg blister with device Active 1 INH INHALATION Daily February 23, 2024 12:00am Start: 11-03-2023 Fluticasone-Um eclidin-Vilanter (Trelegy Ellipta) 100-62.5-25 mcg blister with device Active 1 INH INHALATION Daily November 03, 2023 12:00am folic acid 0.4 mg / vitamin b12 0.5 mg oral tablet (1 source) Vitamin B12 Start: 02-23-2024 take 1 tablet by mouth once daily Vitamin P68-Xvexe Acid Active 1 TAB PO Daily February [...] sources) Anticholinergic Start: 11-03-2023 End: 11-04-2023 Ipratropium [place] Active 2 SPRAY INTRANASAL Twice daily November 04, 2023 9:04am Start: 01-30-2022 ipratropium na jazmine 0.03% spray 2 spray(s), Nasal, BID, Refill(s) 0 Start Date: 01/30/22 Status: Ordered take 2 spray(s) nasa l route twice daily Ipratropium [place] 0.03 % 2 sprays in each nostril [...] Start: 01-30-2022 take 1 capsule by [facility] once daily potassium chloride 10 mEq Cap-ER 10 mEq = 1 cap(s), Oral, Daily, Refills(s) 0 Start Date: 01/30/22 Status: Ordered take 1 tablet [address] [facility] once daily at mealtime Potassium Chloride ER [...] Cyanocobalamin (Vitamin B-12) Discontinued 0 .ROUTE .COMPLEX November 02, 2023 11:47am November 03, 2023 [...] 2 Chronic Other aftercare (5 sources) Other residential (current) drug therapy; Translations: [Other [employer] (current) drug therapy Z79.899] Onset: 1 Resolved: 2 Episodic Other aftercare (2 sources) Patient encounter status; Translations: [Other [employer] (current) drug therapy] 11-04-2023 Episodic Other bone [...] sclerosis, unspecified; Translations: [Scleroderma] Onset: 2 Chronic Varicose veins of lower extremity (20 [...] LT 2Von 02-23-2024 XR knee LT 2V [facility] [address] [email or web address] [address] XRay Report Signed Patient: Genna Herrera MR#: [id number] 52 : 1950 Acct:[id number] Age/Sex: 73 / F ADM Date: 02/23/24 Loc[place] [facility] [place]: Type: [facility] Attending Dr: Domingo George DO Copies to: Domingo George DO Ordering Provider: Domingo George DO Date of Service: 02/23/24 XR/XR knee RT 4V*: M25.561 - Pain in right knee ([id number]) XR/XR knee LT 2V: needs weightbearing XR [...] David Corley M.D.02/23/2024 10:01 AM Dictation Location: [place] [address] Transcribed By: [facility] 02/23/24 1001 Dictated By: David Corley II, MD 02/23/24 0959 Signed By: 02/23/24 1001 Normal [facility] Urine Cultureon 02-16-2024 Bacteria identified Cx Nom (U) 20,000 colonies/ml mixed bacterial skin contaminants 2 Days PERFORMED BY: [place] [address] PATHOLOGIST DRUM CARRIER ROSLYN TALLEY M.D. Normal [facility] Comment on above: Performed By: #### C UU #### [address] Urine culture routineOrdered By: Casandra Chopra on 02-16-2024 Bacteria identified Cx Nom (U) 2 Days [facility] Basophils Auto (Bld) [#/Vol] on 02-10-2024 Basophils (Bld) [#/Vol] 0.1 10 3/uL 0.0-0.1 [facility] Basophils/100 WBC Auto (Bld) on 02-10-2024 Basophils/100 WBC (Bld) 1.6 % 0.2-2.0 [facility] Eosinophils/100 WBC Auto (Bl d)on 02-10-2024 Eosinophils/100 WBC (Bld) 1.8 % 0.9-7.0 [facility] Erythrocyte distribution wid th Auto (RBC) [Ratio]on 02-10-2024 Erythrocyte distribution width (RBC) [Ratio] 13.2 % 11.0-15.0 [facility] Estimated glomerular filtrat ion rate (GFR) non- Americanon 02-10-2024 GFR/1.73 sq M.predicted among non-blacks MDRD (S/P/Bld) [Vol rate/Area] mL/min/{1.73_m2} >=60 [facility] Fine granular cast count in urine sediment by microscopy (number/low power field )on 02-10-2024 Fine Granular Casts LM.LPF (Urine sed) [#/Area] RARE [facility] Globulin Calc (S) [Mass/Vol] on 02-10-2024 Globulin (S) [Mass/Vol] 3.1 g/dL [facility] Hematocrit Auto (Bld) [Volum e fraction]on 02-10-2024 Hematocrit (Bld) [Volume fraction] 38.7 % 36.0-48.0 [facility] Hemoglobin [Mass/volume] in Bloodon 02-10-2024 Hemoglobin (Bld) [Mass/Vol] 12.7 g/dL 12.0-16.0 [facility] Laboratory - Chemistry and C hemistry - challengeon 02-10-2024 Albumin [Mass/Vol] 3.8 g/dL 3.4-5.0 [facility] ALP [Catalytic activity/Vol] 42 U/L Low 46-116 [facility] ALT [Catalytic activity/Vol] 22 U/L 14-59 [facility] AST [Catalytic activity/Vol] 21 U/L 15-37 [facility] Bilirubin [Mass/Vol] 0.5 mg/dL 0.2-1.0 [facility] Calcium [Mass/Vol] 9.0 mg/dL 8.5-10.1 [facility] Chloride [Moles/Vol] 99 mmol/L 98-107 [facility] CO2 [Moles/Vol] 24.9 mmol/L 21.0-32.0 [facility] Creatinine [Mass/Vol] 0.80 mg/dL 0.55-1.02 [facility] GFR/1.73 sq M.predicted MDRD (S/P/Bld) [Vol rate/Area] mL/min/{1.73_m2} >=60 [facility] Glucose [Mass/Vol] 85 mg/dL 74-106 [facility] Potassium [Moles/Vol] 4.2 mmol/L 3.5-5.1 [facility] Protein [Mass/Vol] 6.9 g/dL 6.4-8.2 [facility] Sodium [Moles/Vol] 136 mmol/L 136-145 [facility] Urea nitrogen [Mass/Vol] 15.0 mg/dL 7.0-18.0 [facility] Urea nitrogen/Creatinine [Mass ratio] 18.8 mg/mg [facility] Bilirubin Ql (U) MODERATE Abnormal NEGATIVE [facility] Glucose (U) [Mass/Vol] Negative NEGATIVE [facility] Ketones Ql (U) Negative NEGATIVE [facility] pH (U) 7.0 [pH] 5.0-9.0 [facility] Specific gravity (U) [Rel density] 1.010 1.005-1.025 [facility] Urobilinogen Qn (U) 0.2 {Paul'U}/dL 0.2-1.0 [facility] Laboratory - Hematology and Cell countson 02-10-2024 ESR (Bld) [Velocity] 73 mm/h High <=30 [facility] Immature granulocytes/100 WBC (Bld) 0.2 % 0.0-0.5 [facility] Laboratory - Specimen inform ationon 02-10-2024 Appearance (U) CLEAR CLEAR [facility] Color (U) LT. YELLOW YELLOW [facility] Laboratory - Urinalysison Leukocyte esterase Test strip Ql (U) MODERATE Abnormal NEGATIVE [facility] Mucus Ql (Urine sed) TRACE Abnormal NONE SEEN [facility] Nitrite Ql (U) Negative NEGATIVE [facility] Protein Ql (U) Negative NEG/TRACE [facility] Leukocytes [#/volume] correc sandip for nucleated erythrocytes in Blood by Automated counon 02-10-2024 WBC corrected for nucl RBC Auto (Bld) [#/Vol] 5.7 10 3/uL 4.0-11.0 [facility] Lymphocytes Auto (Bld) [#/Vo l]on 02-10-2024 Lymphocytes (Bld) [#/Vol] 1.0 10 3/uL Low 1.2-3.8 [facility] Lymphocytes/100 WBC Auto (Bl d)on 02-10-2024 Lymphocytes/100 WBC (Bld) 17.1 % Low 20.5-60.0 [facility] MCH Auto (RBC) [Entitic mass ]on 02-10-2024 MCH (RBC) [Entitic mass] 31.1 pg 26.7-34.0 [facility] MCHC Auto (RBC) [Mass/Vol]on 02-10-2024 MCHC (RBC) [Mass/Vol] 32.8 g/dL 29.9-35.2 [facility] MCV Auto (RBC) [Entitic vol] on 02-10-2024 MCV (RBC) [Entitic vol] 94.6 fL 81.0-99.0 [facility] Monocytes Auto (Bld) [#/Vol] on 02-10-2024 Monocytes (Bld) [#/Vol] 0.5 10 3/uL 0.3-0.8 [facility] Monocytes/100 WBC Auto (Bld) on 02-10-2024 Monocytes/100 WBC (Bld) 8.3 % 1.7-12.0 [facility] Neutrophils Auto (Bld) [#/Vo l]on 02-10-2024 Neutrophils (Bld) [#/Vol] 4.0 10 3/uL 1.4-6.5 [facility] Neutrophils/100 WBC Auto (Bl d)on 02-10-2024 Neutrophils/100 WBC (Bld) 71.0 % 43.0-75.0 [facility] No Panel Informationon 02-09 Eosinophils # (Auto) 0.1 10 3/uL 0.0-0.7 [facility] Immature Granulocyte # (Auto) 0.01 10 3/uL 0.00-0.03 [facility] Total Complement (CH50) >60 U/mL >41 [facility] Comment on above: Age Male Female 3 [...] to determine out of range values.Performed at: - [facility] [id number] Director: Santiago Madrid PhD, Phone: [phone] Urine Bacteria SMALL #/HPF Abnormal NONE SEEN [facility] Urine Occult Blood Negative NEGATIVE [facility] Urine Other Casts SEEN #/LPF Abnormal NONE SEEN [facility] Urine Other Crystals None Seen #/HPF None Seen [facility] Urine RBC 0-2 #/HPF 0-2 [facility] Urine Renal Epithelial Cells FEW #/LPF Abnormal NONE SEEN [facility] Urine Squamous Epithelial Cells MODERATE #/LPF Abnormal NONE/RARE [facility] Urine WBC 10-20 #/HPF Abnormal NONE SEEN [facility] Platelet mean volume Auto (B ld) [Entitic vol]on 02-10-2024 Platelet mean volume (Bld) [Entitic vol] 9.1 fL Low 9.5-13.5 [facility] Platelets Auto (Bld) [#/Vol] on 02-10-2024 Platelets (Bld) [#/Vol] 195 10 3/uL 150-450 [facility] RBC Auto (Bld) [#/Vol]on RBC (Bld) [#/Vol] 4.09 10 6/uL Low 4.20-5.40 [facility] Serum or plasma albumin/glob ulin mass ratioon 02-10-2024 Albumin/Globulin [Mass ratio] 1.2 {ratio} [facility] Serum or plasma anion gap de terminationon 02-10-2024 Anion gap [Moles/Vol] 16.3 mmol/L [facility] Serum or plasma complement C 3 measurement (mass/volume)on 02-10-2024 Complement C3 [Mass/Vol] 129 mg/dL 82-167 [facility] Serum or plasma complement C 4 measurement (mass/volume)on 02-10-2024 Complement C4 [Mass/Vol] 22 mg/dL 12-38 [facility] Comment on above: Performed at: [address] [id number] Director: Santiago Madrid PhD, Phone: [phone] Basophils Auto (Bld) [#/Vol] on 01-25-2024 Basophils (Bld) [#/Vol] 0.1 10 3/uL 0.0-0.1 [facility] Basophils/100 WBC Auto (Bld) on 01-25-2024 Basophils/100 WBC (Bld) 1.5 % 0.2-2.0 [facility] Eosinophils/100 WBC Auto (Bl d)on 01-25-2024 Eosinophils/100 WBC (Bld) 1.7 % 0.9-7.0 [facility] Erythrocyte distribution wid th Auto (RBC) [Ratio]on 01-25-2024 Erythrocyte distribution width (RBC) [Ratio] 13.4 % 11.0-15.0 [facility] Estimated glomerular filtrat ion rate (GFR) non- Americanon 01-25-2024 GFR/1.73 sq M.predicted among non-blacks MDRD (S/P/Bld) [Vol rate/Area] mL/min/{1.73_m2} >=60 [facility] Globulin Calc (S) [Mass/Vol] on 01-25-2024 Globulin (S) [Mass/Vol] 3.5 g/dL [facility] Hematocrit Auto (Bld) [Volum e fraction]on 01-25-2024 Hematocrit (Bld) [Volume fraction] 40.6 % 36.0-48.0 [facility] Hemoglobin [Mass/volume] in Bloodon 01-25-2024 Hemoglobin (Bld) [Mass/Vol] 12.9 g/dL 12.0-16.0 [facility] Laboratory - Chemistry and C hemistry - challengeon 01-25-2024 Albumin [Mass/Vol] 3.8 g/dL 3.4-5.0 [facility] ALP [Catalytic activity/Vol] 43 U/L Low 46-116 [facility] ALT [Catalytic activity/Vol] 24 U/L 14-59 [facility] AST [Catalytic activity/Vol] 20 U/L 15-37 [facility] Bilirubin [Mass/Vol] 0.5 mg/dL 0.2-1.0 [facility] Calcium [Mass/Vol] 9.0 mg/dL 8.5-10.1 [facility] Chloride [Moles/Vol] 103 mmol/L 98-107 [facility] CO2 [Moles/Vol] 28.8 mmol/L 21.0-32.0 [facility] Creatinine [Mass/Vol] 0.78 mg/dL 0.55-1.02 [facility] GFR/1.73 sq M.predicted MDRD (S/P/Bld) [Vol rate/Area] mL/min/{1.73_m2} >=60 [facility] Glucose [Mass/Vol] 91 mg/dL 74-106 [facility] Potassium [Moles/Vol] 4.4 mmol/L 3.5-5.1 [facility] Protein [Mass/Vol] 7.3 g/dL 6.4-8.2 [facility] Sodium [Moles/Vol] 139 mmol/L 136-145 [facility] Urea nitrogen [Mass/Vol] 17.0 mg/dL 7.0-18.0 [facility] Urea nitrogen/Creatinine [Mass ratio] 21.8 mg/mg [facility] Bilirubin Ql (U) MODERATE Abnormal NEGATIVE [facility] Glucose (U) [Mass/Vol] Negative NEGATIVE [facility] Ketones Ql (U) Negative NEGATIVE [facility] pH (U) 7.0 [pH] 5.0-9.0 [facility] Specific gravity (U) [Rel density] 1.015 1.005-1.025 [facility] Urobilinogen Qn (U) 0.2 {Paul'U}/dL 0.2-1.0 [facility] Laboratory - Hematology and Cell countson 01-25-2024 ESR (Bld) [Velocity] 72 mm/h High <=30 [facility] Immature granulocytes/100 WBC (Bld) 0.3 % 0.0-0.5 [facility] Laboratory - Specimen inform ationon 01-25-2024 Appearance (U) CLOUDY Abnormal CLEAR [facility] Color (U) LT. YELLOW YELLOW [facility] Laboratory - Urinalysison Leukocyte esterase Test strip Ql (U) LARGE Abnormal NEGATIVE [facility] Mucus Ql (Urine sed) NONE SEEN NONE SEEN [facility] Nitrite Ql (U) Negative NEGATIVE [facility] Protein Ql (U) Negative NEG/TRACE [facility] Leukocytes [#/volume] correc sandip for nucleated erythrocytes in Blood by Automated counon 01-25-2024 WBC corrected for nucl RBC Auto (Bld) [#/Vol] 5.9 10 3/uL 4.0-11.0 [facility] Lymphocytes Auto (Bld) [#/Vo l]on 01-25-2024 Lymphocytes (Bld) [#/Vol] 1.3 10 3/uL 1.2-3.8 [facility] Lymphocytes/100 WBC Auto (Bl d)on 01-25-2024 Lymphocytes/100 WBC (Bld) 21.3 % 20.5-60.0 [facility] MCH Auto (RBC) [Entitic mass ]on 01-25-2024 MCH (RBC) [Entitic mass] 30.5 pg 26.7-34.0 [facility] MCHC Auto (RBC) [Mass/Vol]on 01-25-2024 MCHC (RBC) [Mass/Vol] 31.8 g/dL 29.9-35.2 [facility] MCV Auto (RBC) [Entitic vol] on 01-25-2024 MCV (RBC) [Entitic vol] 96.0 fL 81.0-99.0 [facility] Monocytes Auto (Bld) [#/Vol] on 01-25-2024 Monocytes (Bld) [#/Vol] 0.6 10 3/uL 0.3-0.8 [facility] Monocytes/100 WBC Auto (Bld) on 01-25-2024 Monocytes/100 WBC (Bld) 9.3 % 1.7-12.0 [facility] Neutrophils Auto (Bld) [#/Vo l]on 01-25-2024 Neutrophils (Bld) [#/Vol] 3.9 10 3/uL 1.4-6.5 [facility] Neutrophils/100 WBC Auto (Bl d)on 01-25-2024 Neutrophils/100 WBC (Bld) 65.9 % 43.0-75.0 [facility] No Panel Informationon 01-24 Eosinophils # (Auto) 0.1 10 3/uL 0.0-0.7 [facility] Immature Granulocyte # (Auto) 0.02 10 3/uL 0.00-0.03 [facility] Total Complement (CH50) >60 U/mL >41 [facility] Comment on above: Age Male Female 3 [...] to determine out of range values.Performed at: [employer] [facility] [address] [id number] Director: Santiago Madrid PhD, Phone: [phone] Urine Bacteria LARGE #/HPF Abnormal NONE SEEN [facility] Urine Occult Blood Negative NEGATIVE [facility] Urine Other Casts NONE SEEN #/LPF NONE SEEN [facility] Urine Other Crystals None Seen #/HPF None Seen [facility] Urine RBC 0-2 #/HPF 0-2 [facility] Urine Squamous Epithelial Cells MANY #/LPF Abnormal NONE/RARE [facility] Urine Transitional Epithelial Cells FEW #/LPF Abnormal NONE SEEN [facility] Urine WBC 75-100 #/HPF Abnormal NONE SEEN [facility] Platelet mean volume Auto (B ld) [Entitic vol]on 01-25-2024 Platelet mean volume (Bld) [Entitic vol] 9.2 fL Low 9.5-13.5 [facility] Platelets Auto (Bld) [#/Vol] on 01-25-2024 Platelets (Bld) [#/Vol] 208 10 3/uL 150-450 [facility] RBC Auto (Bld) [#/Vol]on RBC (Bld) [#/Vol] 4.23 10 6/uL 4.20-5.40 [facility] Serum or plasma albumin/glob ulin mass ratioon 01-25-2024 Albumin/Globulin [Mass ratio] 1.1 {ratio} [facility] Serum or plasma anion gap de terminationon 01-25-2024 Anion gap [Moles/Vol] 11.6 mmol/L [facility] Serum or plasma complement C 3 measurement (mass/volume)on 01-25-2024 Complement C3 [Mass/Vol] 133 mg/dL 82-167 [facility] Serum or plasma complement C 4 measurement (mass/volume)on 01-25-2024 Complement C4 [Mass/Vol] 22 mg/dL 12-38 [facility] Comment on above: Performed at: [facility] [place] [id number] Director: Santiago Madrid PhD, Phone: [phone] Basophils Auto (Bld) [#/Vol] on 12-04-2023 Basophils (Bld) [#/Vol] 0.1 10 3/uL 0.0-0.1 [facility] Basophils/100 WBC Auto (Bld) on 12-04-2023 Basophils/100 WBC (Bld) 1.7 % 0.2-2.0 [facility] Eosinophils/100 WBC Auto (Bl d)on 12-04-2023 Eosinophils/100 WBC (Bld) 2.0 % 0.9-7.0 [facility] Erythrocyte distribution wid th Auto (RBC) [Ratio]on 12-04-2023 Erythrocyte distribution width (RBC) [Ratio] 13.3 % 11.0-15.0 [facility] Hematocrit Auto (Bld) [Volum e fraction]on 12-04-2023 Hematocrit (Bld) [Volume fraction] 37.8 % 36.0-48.0 [facility] Hemoglobin [Mass/volume] in Bloodon 12-04-2023 Hemoglobin (Bld) [Mass/Vol] 12.0 g/dL 12.0-16.0 [facility] Laboratory - Hematology and Cell countson 12-04-2023 Immature granulocytes/100 WBC (Bld) 0.2 % 0.0-0.5 [facility] Leukocytes [#/volume] correc sandip for nucleated erythrocytes in Blood by Automated counon 12-04-2023 WBC corrected for nucl RBC Auto (Bld) [#/Vol] 6.0 10 3/uL 4.0-11.0 [facility] Lymphocytes Auto (Bld) [#/Vo l]on 12-04-2023 Lymphocytes (Bld) [#/Vol] 1.1 10 3/uL Low 1.2-3.8 [facility] Lymphocytes/100 WBC Auto (Bl d)on 12-04-2023 Lymphocytes/100 WBC (Bld) 18.2 % Low 20.5-60.0 [facility] MCH Auto (RBC) [Entitic mass ]on 12-04-2023 MCH (RBC) [Entitic mass] 30.5 pg 26.7-34.0 [facility] MCHC Auto (RBC) [Mass/Vol]on 12-04-2023 MCHC (RBC) [Mass/Vol] 31.7 g/dL 29.9-35.2 [facility] MCV Auto (RBC) [Entitic vol] on 12-04-2023 MCV (RBC) [Entitic vol] 95.9 fL 81.0-99.0 [facility] Monocytes Auto (Bld) [#/Vol] on 12-04-2023 Monocytes (Bld) [#/Vol] 0.6 10 3/uL 0.3-0.8 [facility] Monocytes/100 WBC Auto (Bld) on 12-04-2023 Monocytes/100 WBC (Bld) 10.3 % 1.7-12.0 [facility] Neutrophils Auto (Bld) [#/Vo l]on 12-04-2023 Neutrophils (Bld) [#/Vol] 4.1 10 3/uL 1.4-6.5 [facility] Neutrophils/100 WBC Auto (Bl d)on 12-04-2023 Neutrophils/100 WBC (Bld) 67.6 % 43.0-75.0 [facility] No Panel Informationon 12-03 Eosinophils # (Auto) 0.1 10 3/uL 0.0-0.7 [facility] Immature Granulocyte # (Auto) 0.01 10 3/uL 0.00-0.03 [facility] Platelet mean volume Auto (B ld) [Entitic vol]on 12-04-2023 Platelet mean volume (Bld) [Entitic vol] 9.2 fL Low 9.5-13.5 [facility] Platelets Auto (Bld) [#/Vol] on 12-04-2023 Platelets (Bld) [#/Vol] 193 10 3/uL 150-450 [facility] RBC Auto (Bld) [#/Vol]on RBC (Bld) [#/Vol] 3.94 10 6/uL Low 4.20-5.[address] [facility] [address] LUNG CANCER SCREENINGon 0 12-03-2022 [...] MARII TURCIOS Date: 2022-12-03 08:20 Normal [facility] CBC AUTO DIFFon 10-22-2022 BASO # 0.1 103/ul Normal 0.0-0.1 [facility] Comment on above: Performed By: #### C BC #### [facility] [address] [place] [address] [address] Renato Weller Basophils/100 WBC (Bld) 1.5 % Normal 0.2-2.0 [facility] Comment on above: Performed By: #### C BC #### [facility] [address] [place] [address] [address] Renato Weller EO # 0.1 103/ul Normal 0.0-0.7 [facility] Comment on above: Performed By: #### C BC #### [facility] [address] [place] [address] [address] Renato Weller Eosinophils/100 WBC (Bld) 1.4 % Normal 0.9-7.0 [facility] Comment on above: Performed By: #### C BC #### [facility] [address] [place] [address] [address] Renato Weller Erythrocyte distribution width (RBC) [Ratio] 13.4 % Normal 11.0-15.0 [facility] Comment on above: Performed By: #### C BC #### [facility] [address] [place] [address] [address] Renato Weller Hematocrit (Bld) [Volume fraction] 40.8 % Normal 36.0-48.0 [facility] Comment on above: Performed By: #### C BC #### [facility] [address] [place] [address] [address] Renato Weller Hemoglobin (Bld) [Mass/Vol] 12.9 g/dL Normal 12.0-16.0 [facility] Comment on above: Performed By: #### C BC #### [facility] [address] [address] [address] Renato Weller IG # 0.01 10e3/ul Normal 0.00-0.03 [facility] Comment on above: Performed By: #### C BC #### [facility] [address] [address] [address] Renato Weller IG % 0.2 % Normal 0.0-0.5 [facility] Comment on above: Performed By: #### C BC #### [facility] [address] [place] [address] Dr. Renato Weller LYMPH # 1.0 103/ul Critically low 1.2-3.8 [facility] Comment on above: Performed By: #### C BC #### [facility] [address] [place] [address] Dr. Renato Weller Lymphocytes/100 WBC (Bld) 16.2 % Critically low 20.5-60.0 [facility] Comment on above: Performed By: #### C BC #### [facility] [address] [place] [address] Dr. Renato Weller MANUAL DIFF REQ NO Normal [facility] Comment on above: Performed By: #### C BC #### [facility] [address] [place] [address] Dr. Renato Weller MCH (RBC) [Entitic mass] 30.2 pg Normal 26.7-34.0 [facility] Comment on above: Performed By: #### C BC #### [facility] [address] [place] [address] Dr. Renato Weller MCHC (RBC) [Mass/Vol] 31.6 g/dL Normal 29.9-35.2 [facility] Comment on above: Performed By: #### C BC #### [facility] [address] [place] [address] Dr. Renato Weller MCV (RBC) [Entitic vol] 95.6 fL Normal 81.0-99.0 [facility] Comment on above: Performed By: #### C BC #### [facility] [address] [place] [address] Dr. Renato Weller MONO # 0.5 103/ul Normal 0.3-0.8 [facility] Comment on above: Performed By: #### C BC #### [facility] [address] [address] [address] Renato Weller Monocytes/100 WBC (Bld) 8.2 % Normal 1.7-12.0 [facility] Comment on above: Performed By: #### C BC #### [facility] [address] [address] [address] Renato Weller NEUT # 4.3 103/ul Normal 1.4-6.5 [facility] Comment on above: Performed By: #### C BC #### [facility] [address] [address] [address] Renato Weller Neutrophils/100 WBC (Bld) 72.5 % Normal 43.0-75.0 [facility] Comment on above: Performed By: #### C BC #### [facility] [address] [place] [address] Dr. Renato Weller Platelet mean volume (Bld) [Entitic vol] 9.4 fL Critically low 9.5-13.5 [facility] Comment on above: Performed By: #### C BC #### [facility] [address] [place] [address] Dr. Renato Weller PLT 206 103/ul Normal 150-450 [facility] Comment on above: Performed By: #### C BC #### [facility] [address] [place] [address] Dr. Renato Weller RBC 4.27 106/ul Normal 4.20-5.40 [facility] Comment on above: Performed By: #### C BC #### [facility] [address] [place] [address] Dr. Renato Weller WBC 5.9 103/ul Normal 4.0-11.0 [facility] Comment on above: Performed By: #### C BC #### [facility] [address] [place] [address] Dr. Renato Weller LIPID PROFILEon 10-22-2022 CHOL-HDL RATIO NORM SEE BELOW Normal [facility] Comment on above: Result Comment: 3.3 - 4.4 LOW RISK 4.4 - 7.1 AVERAGE RISK 7.1 - 11.0 MODERATE RISK >11.0 HIGH RISK Performed By: #### L IPID, CMP #### [facility] [address] [address] [address] Renato Weller Cholesterol [Mass/Vol] 162 mg/dL Normal <=200 [facility] Comment on above: Performed By: #### L IPID, CMP #### [facility] [address] [address] [address] Renato Weller Cholesterol in HDL [Mass/Vol] 69 mg/dL Critically high 40-60 [facility] Comment on above: Performed By: #### L IPID, CMP #### [facility] [address] [address] [address] Renato Weller Cholesterol in LDL [Mass/Vol] 81.8 mg/dL Normal [facility] Comment on above: Performed By: #### L IPID, CMP #### [facility] [address] [place] [address] Dr. Renato Weller Cholesterol.total/C holesterol in HDL [Mass ratio] 2.3 {ratio} Normal [facility] Comment on above: Performed By: #### L IPID, CMP #### [facility] [address] [place] [address] Dr. Renato Weller HDL NORMAL > or = 60 mg/dl - LO W CARDIOVASCULAR RISK <40 mg/dl - HIGH CARDIOVASCULAR RISK Normal [facility] Comment on above: Performed By: #### L IPID, CMP #### [facility] [address] [address] [address] Renato Weller LDL CALC NORMAL SEE BELOW Normal [facility] Comment on above: Result Comment: <100 mg/dl OPTIMAL 100 - 129 mg/dl NEAR OR ABOVE OPTIMAL 130 - 159 mg/dl BORDERLINE HIGH 160 - 189 mg/dl HIGH >190 mg/dl VERY HIGH Performed By: #### L IPID, CMP #### [facility] [address] [address] [address] Renato Weller Triglyceride [Mass/Vol] 56 mg/dL Normal <=150 [facility] Comment on above: Performed By: #### L IPID, CMP #### [facility] [address] [address] [address] Renato Weller VLDL CALC 11.2 mg/dL Normal [facility] Comment on above: Performed By: #### L IPID, CMP #### [facility] [address] [place] [address] Dr. Renato Weller PROF 14(COMP METB)on 023 Albumin [Mass/Vol] 3.7 g/dL Normal 3.4-5.0 [facility] Comment on above: Performed By: #### L IPID, CMP #### [facility] [address] [place] [address] Dr. Renato Weller Albumin/Globulin [Mass ratio] 1.1 {ratio} Normal [facility] Comment on above: Performed By: #### L IPID, CMP #### [facility] [address] [place] [address] Dr. Renato Weller ALP [Catalytic activity/Vol] 36 U/L Critically low 46-116 [facility] Comment on above: Performed By: #### L IPID, CMP #### [facility] [address] [place] [address] Dr. Renato Weller ALT [Catalytic activity/Vol] 24 U/L Normal 14-59 [facility] Comment on above: Performed By: #### L IPID, CMP #### [facility] [address] [place] [address] Dr. Renato Weller Anion gap [Moles/Vol] 12.2 mmol/L Normal [facility] Comment on above: Performed By: #### L IPID, CMP #### [facility] [address] [place] [address] Dr. Renato Weller AST [Catalytic activity/Vol] 18 U/L Normal 15-37 [facility] Comment on above: Performed By: #### L IPID, CMP #### [facility] [address] [place] [address] Dr. Renato Weller Bilirubin [Mass/Vol] 0.3 mg/dL Normal 0.2-1.0 [facility] Comment on above: Performed By: #### L IPID, CMP #### [facility] [address] [address] [address] Renato Weller Calcium [Mass/Vol] 9.0 mg/dL Normal 8.5-10.1 [facility] Comment on above: Performed By: #### L IPID, CMP #### [facility] [address] [address] [address] Renato Weller Chloride [Moles/Vol] 102 mmol/L Normal 98-107 [facility] Comment on above: Performed By: #### L IPID, CMP #### [facility] [address] [address] [address] Renato Weller CO2 [Moles/Vol] 29.1 mmol/L Normal 21.0-32.0 [facility] Comment on above: Performed By: #### L IPID, CMP #### [facility] [address] [place] [address] Dr. Renato Weller Creatinine [Mass/Vol] 0.83 mg/dL Normal 0.55-1.02 [facility] Comment on above: Performed By: #### L IPID, CMP #### [facility] [address] [place] [address] Dr. Renato Weller EGFR-AF TURKISH >60 Normal >=60 [facility] Comment on above: Performed By: #### L IPID, CMP #### [facility] [address] [place] [address] Dr. Renato Weller EGFR-NON AF TURKISH >60 Normal >=60 [facility] Comment on above: Performed By: #### L IPID, CMP #### [facility] [address] [address] [address] Renato Weller Globulin (S) [Mass/Vol] 3.5 g/dL Normal [facility] Comment on above: Performed By: #### L IPID, CMP #### [facility] [address] [address] [address] Renato Weller Glucose [Mass/Vol] 85 mg/dL Normal 74-106 [facility] Comment on above: Performed By: #### L IPID, CMP #### [facility] [address] [address] [address] Renato Weller Potassium [Moles/Vol] 4.3 mmol/L Normal 3.5-5.1 [facility] Comment on above: Performed By: #### L IPID, CMP #### [facility] [address] [place] [address] Dr. Renato Weller Protein [Mass/Vol] 7.2 g/dL Normal 6.4-8.2 [facility] Comment on above: Performed By: #### L IPID, CMP #### [facility] [address] [place] [address] Dr. Renato Weller Sodium [Moles/Vol] 139 mmol/L Normal 136-145 [facility] Comment on above: Performed By: #### L IPID, CMP #### [facility] [address] [place] [address] Dr. Renato Weller Urea nitrogen [Mass/Vol] 14.0 mg/dL Normal 7.0-18.0 [facility] Comment on above: Performed By: #### L IPID, CMP #### [facility] [address] [place] [address] Dr. Renato Weller Urea nitrogen/Creatinine [Mass ratio] 16.9 mg/mg Normal [facility] Comment on above: Performed By: #### L IPID, CMP #### [facility] [address] [place] [address] Dr. Renato Weller C3 and C4 COMPLEMENTon 08-19 Complement C3, Serum 110 mg/dL Normal 82-167 [facility] Comment on above: Performed By: #### U AMIC #### [facility] [address] [place] [address] Dr. Renato Weller Complement C4, Serum 20 mg/dL Normal 12-38 [facility] Comment on above: Performed By: #### U AMIC #### [facility] [address] [place] [address] Dr. Renato Weller COMPLEMENT TOTAL (CH50)on Complement, Total (CH50) >60 Normal >41 [facility] Comment on [...] values. Performed By: #### C H50T #### [facility] [address] [place] [address] Dr. Renato Weller CBC AUTO DIFFon 08-18-2022 BASO # 0.1 103/ul Normal 0.0-0.1 [facility] Comment on above: Performed By: #### C H50T #### [facility] [address] [place] [address] Dr. Renato Weller Basophils/100 WBC (Bld) 1.8 % Normal 0.2-2.0 [facility] Comment on above: Performed By: #### C H50T #### [facility] [address] [place] [address] Dr. Renato Weller EO # 0.1 103/ul Normal 0.0-0.7 [facility] Comment on above: Performed By: #### C H50T #### [facility] [address] [place] [address] Dr. Renato Weller Eosinophils/100 WBC (Bld) 1.8 % Normal 0.9-7.0 [facility] Comment on above: Performed By: #### C H50T #### [facility] [address] [place] [address] Dr. Renato Weller Erythrocyte distribution width (RBC) [Ratio] 13.2 % Normal 11.0-15.0 [facility] Comment on above: Performed By: #### C H50T #### [facility] [address] [place] [address] Dr. Renato Weller Hematocrit (Bld) [Volume fraction] 39.9 % Normal 36.0-48.0 [facility] Comment on above: Performed By: #### C H50T #### [facility] [address] [place] [address] Dr. Renato Weller Hemoglobin (Bld) [Mass/Vol] 13.2 g/dL Normal 12.0-16.0 [facility] Comment on above: Performed By: #### C H50T #### [facility] [address] [place] [address] Dr. Renato Weller IG # 0.02 10e3/ul Normal 0.00-0.03 [facility] Comment on above: Performed By: #### C H50T #### [facility] [address] [place] [address] Dr. Renato Weller IG % 0.4 % Normal 0.0-0.5 [facility] Comment on above: Performed By: #### C H50T #### [facility] [address] [place] [address] Dr. Renato Weller LYMPH # 1.1 103/ul Critically low 1.2-3.8 [facility] Comment on above: Performed By: #### C H50T #### [facility] [address] [place] [address] Dr. Renato Weller Lymphocytes/100 WBC (Bld) 18.4 % Critically low 20.5-60.0 [facility] Comment on above: Performed By: #### C H50T #### [facility] [address] [place] [address] Dr. Renato Weller MANUAL DIFF REQ NO Normal [facility] Comment on above: Performed By: #### C H50T #### [facility] [address] [place] [address] Dr. Renato Weller MCH (RBC) [Entitic mass] 31.0 pg Normal 26.7-34.0 [facility] Comment on above: Performed By: #### C H50T #### [facility] [address] [place] [address] Dr. Renato Weller MCHC (RBC) [Mass/Vol] 33.1 g/dL Normal 29.9-35.2 [facility] Comment on above: Performed By: #### C H50T #### [facility] [address] [address] [address] Renato Weller MCV (RBC) [Entitic vol] 93.7 fL Normal 81.0-99.0 [facility] Comment on above: Performed By: #### C H50T #### [facility] [address] [place] [address] Dr. Renato Weller MONO # 0.5 103/ul Normal 0.3-0.8 [facility] Comment on above: Performed By: #### C H50T #### [facility] [address] [place] [address] Dr. Renato Weller Monocytes/100 WBC (Bld) 8.6 % Normal 1.7-12.0 [facility] Comment on above: Performed By: #### C H50T #### [facility] [address] [place] [address] Dr. Renato Weller NEUT # 3.9 103/ul Normal 1.4-6.5 [facility] Comment on above: Performed By: #### C H50T #### [facility] [address] [place] [address] Dr. Renato Weller Neutrophils/100 WBC (Bld) 69.0 % Normal 43.0-75.0 [facility] Comment on above: Performed By: #### C H50T #### [facility] [address] [place] [address] Dr. Renato Weller Platelet mean volume (Bld) [Entitic vol] 9.4 fL Critically low 9.5-13.5 [facility] Comment on above: Performed By: #### C H50T #### [facility] [address] [place] [address] Dr. Renato Weller PLT 191 103/ul Normal 150-450 [facility] Comment on above: Performed By: #### C H50T #### [facility] [address] [place] [address] Dr. Renato Weller RBC 4.26 106/ul Normal 4.20-5.40 [facility] Comment on above: Performed By: #### C H50T #### [facility] [address] [place] [address] Dr. Renato Weller WBC 5.7 103/ul Normal 4.0-11.0 [facility] Comment on above: Performed By: #### C H50T #### [facility] [address] [place] [address] Dr. Renato Weller MAGNESIUMon 08-18-2022 Magnesium [Mass/Vol] 2.1 mg/dL Normal 1.8-2.4 [facility] Comment on above: Performed By: #### L IPID, CMP #### [facility] [address] [place] [address] Dr. Renato Weller PHOSPHORUSon 08-18-2022 Phosphate [Mass/Vol] 3.5 mg/dL Normal 2.6-4.7 [facility] Comment on above: Performed By: #### L IPID, CMP #### [facility] [address] [place] [address] Dr. Renato Weller PROF 14(COMP METB)on 023 Albumin [Mass/Vol] 3.7 g/dL Normal 3.4-5.0 [facility] Comment on above: Performed By: #### L IPID, CMP #### [facility] [address] [place] [address] Dr. Renato Weller Albumin/Globulin [Mass ratio] 1.2 {ratio} Normal [facility] Comment on above: Performed By: #### L IPID, CMP #### [facility] [address] [place] [address] Dr. Renato Weller ALP [Catalytic activity/Vol] 37 U/L Critically low 46-116 [facility] Comment on above: Performed By: #### L IPID, CMP #### [facility] [address] [place] [address] Dr. Renato Weller ALT [Catalytic activity/Vol] 18 U/L Normal 14-59 [facility] Comment on above: Performed By: #### L IPID, CMP #### [facility] [address] [place] [address] Dr. Renato Weller Anion gap [Moles/Vol] 13.5 mmol/L Normal [facility] Comment on above: Performed By: #### L IPID, CMP #### [facility] [address] [address] [address] Renato Weller AST [Catalytic activity/Vol] 19 U/L Normal 15-37 [facility] Comment on above: Performed By: #### L IPID, CMP #### [facility] [address] [place] [address] Dr. Renato Weller Bilirubin [Mass/Vol] 0.4 mg/dL Normal 0.2-1.0 [facility] Comment on above: Performed By: #### L IPID, CMP #### [facility] [address] [place] [address] Dr. Renato Weller Calcium [Mass/Vol] 8.7 mg/dL Normal 8.5-10.1 [facility] Comment on above: Performed By: #### L IPID, CMP #### [facility] [address] [place] [address] Dr. Renato Weller Chloride [Moles/Vol] 104 mmol/L Normal 98-107 [facility] Comment on above: Performed By: #### L IPID, CMP #### [facility] [address] [place] [address] Dr. Renato Weller CO2 [Moles/Vol] 27.8 mmol/L Normal 21.0-32.0 [facility] Comment on above: Performed By: #### L IPID, CMP #### [facility] [address] [place] [address] Dr. Renato Weller Creatinine [Mass/Vol] 0.67 mg/dL Normal 0.55-1.02 [facility] Comment on above: Performed By: #### L IPID, CMP #### [facility] [address] [place] [address] Dr. Renato Weller EGFR-AF TURKISH >60 Normal >=60 [facility] Comment on above: Performed By: #### L IPID, CMP #### [facility] [address] [address] [address] Renato Weller EGFR-NON AF TURKISH >60 Normal >=60 [facility] Comment on above: Performed By: #### L IPID, CMP #### [facility] [address] [address] [address] Renato Weller Globulin (S) [Mass/Vol] 3.0 g/dL Normal [facility] Comment on above: Performed By: #### L IPID, CMP #### [facility] [address] [address] [address] Renato Weller Glucose [Mass/Vol] 87 mg/dL Normal 74-106 [facility] Comment on above: Performed By: #### L IPID, CMP #### [facility] [address] [place] [address] Dr. Renato Weller Potassium [Moles/Vol] 4.3 mmol/L Normal 3.5-5.1 [facility] Comment on above: Performed By: #### L IPID, CMP #### [facility] [address] [place] [address] Dr. Renato Weller Protein [Mass/Vol] 6.7 g/dL Normal 6.4-8.2 [facility] Comment on above: Performed By: #### L IPID, CMP #### [facility] [address] [place] [address] Dr. Renato Weller Sodium [Moles/Vol] 141 mmol/L Normal 136-145 [facility] Comment on above: Performed By: #### L IPID, CMP #### [facility] [address] [place] [address] Dr. Renato Weller Urea nitrogen [Mass/Vol] 11.0 mg/dL Normal 7.0-18.0 [facility] Comment on above: Performed By: #### L IPID, CMP #### [facility] [address] [place] [address] Dr. Renato Weller Urea nitrogen/Creatinine [Mass ratio] 16.4 mg/mg Normal [facility] Comment on above: Performed By: #### L IPID, CMP #### [facility] [address] [address] [address] Renato Weller SED RATE WESTERGRENon 2022 SED RATE 43 mm/hr Critically high <=30 [facility] Comment on above: Performed By: #### S EDR #### [facility] [address] [address] [address] Renato Weller UA RANDOM W/MICROSCOPICon BACTERIA NONE SEEN Normal NONE SEEN [facility] Comment on above: Performed By: #### U AMIC #### [facility] [address] [address] [address] Renato Weller Bilirubin Ql (U) LARGE Abnormal NEGATIVE [facility] Comment on above: Performed By: #### U AMIC #### [facility] [address] [place] [address] Dr. Renato Weller CAST NONE SEEN Normal NONE SEEN [facility] Comment on above: Performed By: #### U AMIC #### [facility] [address] [address] [address] Renato Weller Clarity (U) CLEAR Normal CLEAR [facility] Comment on above: Performed By: #### U AMIC #### [facility] [address] [place] [address] Dr. Renato Weller Color (U) LT. YELLOW Normal YELLOW [facility] Comment on above: Performed By: #### U AMIC #### [facility] [address] [place] [address] Dr. Renato Weller Crystals LM Nom (Urine sed) NONE SEEN Normal NONE SEEN [facility] Comment on above: Performed By: #### U AMIC #### [facility] [address] [place] [address] Dr. Renato Weller Epithelial cells LM Ql (Urine sed) NONE SEEN Normal NONE SEEN /RARE [facility] Comment on above: Performed By: #### U AMIC #### [facility] [address] [place] [address] Dr. Renato Weller Glucose Ql (U) Negative Normal NEGATIVE [facility] Comment on above: Performed By: #### U AMIC #### [facility] [address] [address] [address] Renato Weller Hemoglobin Ql (U) Negative Normal NEGATIVE [facility] Comment on above: Performed By: #### U AMIC #### [facility] [address] [address] [address] Renato Weller Ketones Ql (U) Negative Normal NEGATIVE [facility] Comment on above: Performed By: #### U AMIC #### [facility] [address] [address] [address] Renato Weller LEUKOCYTES SMALL Abnormal NEGATIVE [facility] Comment on above: Performed By: #### U AMIC #### [facility] [address] [address] [address] Renato Weller MUCOUS NONE SEEN Normal NONE SEEN [facility] Comment on above: Performed By: #### U AMIC #### [facility] [address] [place] [address] Dr. Renato Weller Nitrite Ql (U) Negative Normal NEGATIVE [facility] Comment on above: Performed By: #### U AMIC #### [facility] [address] [place] [address] Dr. Renato Weller pH (U) 7.0 [pH] Normal 5-9 [facility] Comment on above: Performed By: #### U AMIC #### [facility] [address] [place] [address] Dr. Renato Weller RBC 0-2 Normal 0-2 [facility] Comment on above: Performed By: #### U AMIC #### [facility] [address] [place] [address] Dr. Renato Weller SPEC GRAVITY 1.010 Normal 1.005-<=1.025 [facility] Comment on above: Performed By: #### U AMIC #### [facility] [address] [place] [address] Dr. Renato Weller UA PROTEIN Negative Normal NEGATIVE/ TRACE [facility] Comment on above: Performed By: #### U AMIC #### [facility] [address] [place] [address] Dr. Renato Weller Urobilinogen Qn (U) 0.2 {Paul'U}/dL Normal 0.2 - 1. 0 [facility] Comment on above: Performed By: #### U AMIC #### [facility] [address] [place] [address] Dr. Renato Weller WBC NONE SEEN Normal NONE SEEN [facility] Comment on above: Performed By: #### U AMIC #### [facility] [address] [place] [address] Dr. Renato Weller CULTURE URINEon 05-12-2022 CULTURE URINE Culture Observations : LIGHT GROWTH OF MIXED GENITAL ROMEL. NO POTENTIAL PATHOGENS SEEN. Normal [facility] Comment on above: Performed By: #### U AMIC #### [facility] [address] [place] [address] Dr. Reanto Weller UA RANDOM W/MICROSCOPICon BACTERIA TRACE Abnormal NONE SEEN [facility] Comment on above: Performed By: #### C H50T #### [facility] [address] [place] [address] Dr. Renato Weller Bilirubin Ql (U) LARGE Abnormal NEGATIVE [facility] Comment on above: Performed By: #### C H50T #### [facility] [address] [place] [address] Dr. Renato Weller CAST NONE SEEN Normal NONE SEEN [facility] Comment on above: Performed By: #### C H50T #### [facility] [address] [place] [address] Dr. Renato Weller Clarity (U) CLEAR Normal CLEAR [facility] Comment on above: Performed By: #### C H50T #### [facility] [address] [place] [address] Dr. Renato Weller Color (U) LT. YELLOW Normal YELLOW [facility] Comment on above: Performed By: #### C H50T #### [facility] [address] [place] [address] Dr. Renato Weller Crystals LM Nom (Urine sed) NONE SEEN Normal NONE SEEN [facility] Comment on above: Performed By: #### C H50T #### [facility] [address] [address] [address] Renato Weller Epithelial cells LM Ql (Urine sed) MODERATE Abnormal NONE SEEN /RARE [facility] Comment on above: Performed By: #### C H50T #### [facility] [address] [place] [address] Dr. Renato Weller Glucose Ql (U) Negative Normal NEGATIVE [facility] Comment on above: Performed By: #### C H50T #### [facility] [address] [address] [address] Renato Weller Hemoglobin Ql (U) Negative Normal NEGATIVE [facility] Comment on above: Performed By: #### C H50T #### [facility] [address] [place] [address] Dr. Renato Weller Ketones Ql (U) Negative Normal NEGATIVE [facility] Comment on above: Performed By: #### C H50T #### [facility] [address] [place] [address] Dr. Renato Weller LEUKOCYTES SMALL Abnormal NEGATIVE [facility] Comment on above: Performed By: #### C H50T #### [facility] [address] [place] [address] Dr. Renato Weller MUCOUS NONE SEEN Normal NONE SEEN [facility] Comment on above: Performed By: #### C H50T #### [facility] [address] [place] [address] Dr. Renato Weller Nitrite Ql (U) Negative Normal NEGATIVE [facility] Comment on above: Performed By: #### C H50T #### [facility] [address] [place] [address] Dr. Renato Weller pH (U) 6.0 [pH] Normal 5-9 [facility] Comment on above: Performed By: #### C H50T #### [facility] [address] [place] [address] Dr. Renato Weller RBC 0-2 Normal 0-2 [facility] Comment on above: Performed By: #### C H50T #### [facility] [address] [place] [address] Dr. Renato Weller SPEC GRAVITY 1.025 Normal 1.005-<=1.025 [facility] Comment on above: Performed By: #### C H50T #### [facility] [address] [place] [address] Dr. Renato Weller UA PROTEIN Negative Normal NEGATIVE/ TRACE [facility] Comment on above: Performed By: #### C H50T #### [facility] [address] [place] [address] Dr. Renato Weller Urobilinogen Qn (U) 0.2 {Paul'U}/dL Normal 0.2 - 1. 0 [facility] Comment on above: Performed By: #### C H50T #### [facility] [address] [place] [address] Dr. Renato Weller WBC 5-10 Abnormal NONE SEEN [facility] Comment on above: Performed By: #### C H50T #### [facility] [address] [place] [address] Dr. Renato Weller CULTURE URINEon 05-02-2022 CULTURE URINE Culture Observations : MODERATE GROWTH OF MIXED GENITAL ROMEL. PLEASE RESUBMIT CLEAN CATCH MID-STREAM URINE IF CLINICALLY INDICATED. Normal [facility] Comment on above: Performed By: #### U AMIC #### [facility] [address] [place] [address] Dr. Renato Weller UA RANDOM W/MICROSCOPICon BACTERIA LARGE Abnormal NONE SEEN [facility] Comment on above: Performed By: #### U AMIC #### [facility] [address] [place] [address] Dr. Renato Weller Bilirubin Ql (U) MODERATE Abnormal NEGATIVE [facility] Comment on above: Performed By: #### U AMIC #### [facility] [address] [place] [address] Dr. Renato Weller CAST NONE SEEN Normal NONE SEEN [facility] Comment on above: Performed By: #### U AMIC #### [facility] [address] [place] [address] Dr. Renato Weller Clarity (U) CLEAR Normal CLEAR [facility] Comment on above: Performed By: #### U AMIC #### [facility] [address] [address] [address] Renato Weller Color (U) LT. YELLOW Normal YELLOW [facility] Comment on above: Performed By: #### U AMIC #### [facility] [address] [address] [address] Renato Weller Crystals LM Nom (Urine sed) NONE SEEN Normal NONE SEEN [facility] Comment on above: Performed By: #### U AMIC #### [facility] [address] [address] [address] Renato Weller Epithelial cells LM Ql (Urine sed) MODERATE Abnormal NONE SEEN /RARE [facility] Comment on above: Performed By: #### U AMIC #### [facility] [address] [address] [address] Renato Weller Glucose Ql (U) Negative Normal NEGATIVE [facility] Comment on above: Performed By: #### U AMIC #### [facility] [address] [address] [address] Renato Weller Hemoglobin Ql (U) LARGE Abnormal NEGATIVE [facility] Comment on above: Performed By: #### U AMIC #### [facility] [address] [address] [address] Renato Weller Ketones Ql (U) Negative Normal NEGATIVE [facility] Comment on above: Performed By: #### U AMIC #### [facility] [address] [address] [address] Renato Weller LEUKOCYTES LARGE Abnormal NEGATIVE [facility] Comment on above: Performed By: #### U AMIC #### [facility] [address] [address] [address] Renato Weller MUCOUS NONE SEEN Normal NONE SEEN [facility] Comment on above: Performed By: #### U AMIC #### [facility] [address] [address] [address] Renato Weller Nitrite Ql (U) Negative Normal NEGATIVE [facility] Comment on above: Performed By: #### U AMIC #### [facility] [address] [place] [address] Dr. Renato Weller pH (U) 6.0 [pH] Normal 5-9 [facility] Comment on above: Performed By: #### U AMIC #### [facility] [address] [place] [address] Dr. Renato Weller RBC 5-10 Abnormal 0-2 [facility] Comment on above: Performed By: #### U AMIC #### [facility] [address] [place] [address] Dr. Renato Weller SPEC GRAVITY 1.020 Normal 1.005-<=1.025 [facility] Comment on above: Performed By: #### U AMIC #### [facility] [address] [place] [address] Dr. Renato Weller UA PROTEIN Negative Normal NEGATIVE/ TRACE [facility] Comment on above: Performed By: #### U AMIC #### [facility] [address] [place] [address] Dr. Renato Weller Urobilinogen Qn (U) 0.2 {Paul'U}/dL Normal 0.2 - 1. 0 [facility] Comment on above: Performed By: #### U AMIC #### [facility] [address] [place] [address] Dr. Renato Weller WBC 10-20 Abnormal NONE SEEN [facility] Comment on above: Performed By: #### U AMIC #### [facility] [address] [place] [address] Dr. Renato Weller XR CSPINE MIN 4 [...] CASANDRA DURAN Date: 2022-05-01 17:38 Normal [facility] C3 and C4 COMPLEMENTon 04-15 Complement C3, Serum 115 mg/dL Normal 82-167 [facility] Comment on above: Performed By: #### C H50T #### [facility] [address] [place] [address] Dr. Renato Weller Complement C4, Serum 23 mg/dL Normal 12-38 [facility] Comment on above: Performed By: #### C H50T #### [facility] [address] [place] [address] Dr. Renato Weller COMPLEMENT TOTAL (CH50)on Complement, Total (CH50) >60 Normal >41 [facility] Comment on above: Result Comment: [...] values. Performed By: #### C H50T #### [facility] [address] [place] [address] Dr. Renato Weller CBC AUTO DIFFon 04-14-2022 BASO # 0.1 103/ul Normal 0.0-0.1 [facility] Comment on above: Performed By: #### C H50T #### [facility] [address] [place] [address] Dr. Renato Weller Basophils/100 WBC (Bld) 1.6 % Normal 0.2-2.0 [facility] Comment on above: Performed By: #### C H50T #### [facility] [address] [place] [address] Dr. Renato Weller EO # 0.1 103/ul Normal 0.0-0.7 [facility] Comment on above: Performed By: #### C H50T #### [facility] [address] [place] [address] Dr. Renato Weller Eosinophils/100 WBC (Bld) 2.0 % Normal 0.9-7.0 [facility] Comment on above: Performed By: #### C H50T #### [facility] [address] [place] [address] Dr. Renato Weller Erythrocyte distribution width (RBC) [Ratio] 12.8 % Normal 11.0-15.0 [facility] Comment on above: Performed By: #### C H50T #### [facility] [address] [place] [address] Dr. Renato Weller Hematocrit (Bld) [Volume fraction] 40.0 % Normal 36.0-48.0 [facility] Comment on above: Performed By: #### C H50T #### [facility] [address] [place] [address] Dr. Renato Weller Hemoglobin (Bld) [Mass/Vol] 12.8 g/dL Normal 12.0-16.0 [facility] Comment on above: Performed By: #### C H50T #### [facility] [address] [place] [address] Dr. Renato Weller IG # 0.02 10e3/ul Normal 0.00-0.03 [facility] Comment on above: Performed By: #### C H50T #### [facility] [address] [place] [address] Dr. Renato Wellre IG % 0.4 % Normal 0.0-0.5 [facility] Comment on above: Performed By: #### C H50T #### [facility] [address] [place] [address] Dr. Renato Weller LYMPH # 1.1 103/ul Critically low 1.2-3.8 [facility] Comment on above: Performed By: #### C H50T #### [facility] [address] [place] [address] Dr. Renato Weller Lymphocytes/100 WBC (Bld) 22.2 % Normal 20.5-60.0 [facility] Comment on above: Performed By: #### C H50T #### [facility] [address] [place] [address] Dr. Renato Weller MANUAL DIFF REQ NO Normal [facility] Comment on above: Performed By: #### C H50T #### [facility] [address] [place] [address] Dr. Renato Weller MCH (RBC) [Entitic mass] 31.3 pg Normal 26.7-34.0 [facility] Comment on above: Performed By: #### C H50T #### [facility] [address] [place] [address] Dr. Renato Weller MCHC (RBC) [Mass/Vol] 32.0 g/dL Normal 29.9-35.2 [facility] Comment on above: Performed By: #### C H50T #### [facility] [address] [place] [address] Dr. Renato Weller MCV (RBC) [Entitic vol] 97.8 fL Normal 81.0-99.0 [facility] Comment on above: Performed By: #### C H50T #### [facility] [address] [place] [address] Dr. Renato Weller MONO # 0.5 103/ul Normal 0.3-0.8 [facility] Comment on above: Performed By: #### C H50T #### [facility] [address] [place] [address] Dr. Renato Weller Monocytes/100 WBC (Bld) 9.8 % Normal 1.7-12.0 [facility] Comment on above: Performed By: #### C H50T #### [facility] [address] [place] [address] Dr. Renato Weller NEUT # 3.2 103/ul Normal 1.4-6.5 [facility] Comment on above: Performed By: #### C H50T #### [facility] [address] [place] [address] Dr. Renato Weller Neutrophils/100 WBC (Bld) 64.0 % Normal 43.0-75.0 [facility] Comment on above: Performed By: #### C H50T #### [facility] [address] [place] [address] Dr. Renato Weller Platelet mean volume (Bld) [Entitic vol] 9.3 fL Critically low 9.5-13.5 [facility] Comment on above: Performed By: #### C H50T #### [facility] [address] [address] [address] Renato Weller PLT 181 103/ul Normal 150-450 [facility] Comment on above: Performed By: #### C H50T #### [facility] [address] [address] [address] Renato Weller RBC 4.09 106/ul Critically low 4.20-5.40 [facility] Comment on above: Performed By: #### C H50T #### [facility] [address] [address] [address] Renato Weller WBC 5.0 103/ul Normal 4.0-11.0 [facility] Comment on above: Performed By: #### C H50T #### [facility] [address] [place] [address] Dr. Renato Weller LIPID PROFILEon 04-14-2022 CHOL-HDL RATIO NORM SEE BELOW Normal [facility] Comment on above: Result Comment: 3.3 - 4.4 LOW RISK 4.4 - 7.1 AVERAGE RISK 7.1 - 11.0 MODERATE RISK >11.0 HIGH RISK Performed By: #### T SH, LIPID #### [facility] [address] [place] [address] Dr. Renato Weller Cholesterol [Mass/Vol] 176 mg/dL Normal <=200 [facility] Comment on above: Performed By: #### T SH, LIPID #### [facility] [address] [place] [address] Dr. Renato Weller Cholesterol in HDL [Mass/Vol] 71 mg/dL Critically high 40-60 [facility] Comment on above: Performed By: #### T SH, LIPID #### [facility] [address] [place] [address] Dr. Renato Weller Cholesterol in LDL [Mass/Vol] 94.0 mg/dL Normal [facility] Comment on above: Performed By: #### T SH, LIPID #### [facility] [address] [address] [address] Renato Weller Cholesterol.total/C holesterol in HDL [Mass ratio] 2.5 {ratio} Normal [facility] Comment on above: Performed By: #### T SH, LIPID #### [facility] [address] [address] [address] Renato Weller HDL NORMAL > or = 60 mg/dl - LO W CARDIOVASCULAR RISK <40 mg/dl - HIGH CARDIOVASCULAR RISK Normal [facility] Comment on above: Performed By: #### T SH, LIPID #### [facility] [address] [address] [address] Renato Weller LDL CALC NORMAL SEE BELOW Normal [facility] Comment on above: Result Comment: <100 mg/dl OPTIMAL 100 - 129 mg/dl NEAR OR ABOVE OPTIMAL 130 - 159 mg/dl BORDERLINE HIGH 160 - 189 mg/dl HIGH >190 mg/dl VERY HIGH Performed By: #### T SH, LIPID #### [facility] [address] [address] [address] Renato Weller Triglyceride [Mass/Vol] 55 mg/dL Normal <=150 [facility] Comment on above: Performed By: #### T SH, LIPID #### [facility] [address] [address] [address] Renato Weller VLDL CALC 11.0 mg/dL Normal [facility] Comment on above: Performed By: #### T SH, LIPID #### [facility] [address] [address] [address] Renato Weller MG MAMM SCREEN 3D HERBERT CADon 04-14-2022 MG MAMM SCREEN 3D HERBERT CAD Patient: GENNA HERRERA Exam Date: 04/14/2022 : 1950 Gender:F Ordering : DR CASANDRA CHOPRA Admission #: [id number] Family : Order #: [id number] CLICK HERE TO VIEW EXAM RADIOLOGY REPORT [...] ovarian cancer at age 44. LOCATION: [facility] BREAST COMPOSITION: Scattered areas fibroglandular density. FINDINGS: [...] Duran MD on 04/14/2022 at 09:31 Normal [facility] PROF 14(COMP METB)on 022 Albumin [Mass/Vol] 3.8 g/dL Normal 3.4-5.0 [facility] Comment on above: Performed By: #### C MP #### [facility] [address] [place] [address] Dr. Renato Weller Albumin/Globulin [Mass ratio] 1.2 {ratio} Normal [facility] Comment on above: Performed By: #### C MP #### [facility] [address] [place] [address] Dr. Renato Weller ALP [Catalytic activity/Vol] 41 U/L Critically low 46-116 [facility] Comment on above: Performed By: #### C MP #### [facility] [address] [place] [address] Dr. Renato Weller ALT [Catalytic activity/Vol] 23 U/L Normal 14-59 [facility] Comment on above: Performed By: #### C MP #### [facility] [address] [place] [address] Dr. Renato Weller Anion gap [Moles/Vol] 10.0 mmol/L Normal [facility] Comment on above: Performed By: #### C MP #### [facility] [address] [place] [address] Dr. Renato Weller AST [Catalytic activity/Vol] 20 U/L Normal 15-37 [facility] Comment on above: Performed By: #### C MP #### [facility] [address] [address] [address] Renato Weller Bilirubin [Mass/Vol] 0.4 mg/dL Normal 0.2-1.0 [facility] Comment on above: Performed By: #### C MP #### [facility] [address] [address] [address] Renato Weller Calcium [Mass/Vol] 8.5 mg/dL Normal 8.5-10.1 [facility] Comment on above: Performed By: #### C MP #### [facility] [address] [address] [address] Renato Weller Chloride [Moles/Vol] 104 mmol/L Normal 98-107 [facility] Comment on above: Performed By: #### C MP #### [facility] [address] [place] [address] Dr. Renato Weller CO2 [Moles/Vol] 29.0 mmol/L Normal 21.0-32.0 [facility] Comment on above: Performed By: #### C MP #### [facility] [address] [address] [address] Renato Weller Creatinine [Mass/Vol] 0.69 mg/dL Normal 0.55-1.02 [facility] Comment on above: Performed By: #### C MP #### [facility] [address] [address] [address] Renato Weller EGFR-AF TURKISH >60 Normal >=60 [facility] Comment on above: Performed By: #### C MP #### [facility] [address] [address] [address] Renato Weller EGFR-NON AF TURKISH >60 Normal >=60 [facility] Comment on above: Performed By: #### C MP #### [facility] [address] [place] [address] Dr. Renato Weller Globulin (S) [Mass/Vol] 3.2 g/dL Normal [facility] Comment on above: Performed By: #### C MP #### [facility] [address] [address] [address] Renato Weller Glucose [Mass/Vol] 84 mg/dL Normal 74-106 [facility] Comment on above: Performed By: #### C MP #### [facility] [address] [address] [address] Renato Weller Potassium [Moles/Vol] 4.0 mmol/L Normal 3.5-5.1 [facility] Comment on above: Performed By: #### C MP #### [facility] [address] [address] [address] Renato Weller Protein [Mass/Vol] 7.0 g/dL Normal 6.4-8.2 [facility] Comment on above: Performed By: #### C MP #### [facility] [address] [address] [address] Renato Weller Sodium [Moles/Vol] 139 mmol/L Normal 136-145 [facility] Comment on above: Performed By: #### C MP #### [facility] [address] [place] [address] Dr. Renato Weller Urea nitrogen [Mass/Vol] 16.0 mg/dL Normal 7.0-18.0 [facility] Comment on above: Performed By: #### C MP #### [facility] [address] [place] [address] Dr. Renato Weller Urea nitrogen/Creatinine [Mass ratio] 23.2 mg/mg Normal [facility] Comment on above: Performed By: #### C MP #### [facility] [address] [address] [address] Renato Weller SED RATE WESTERGREN 2021 SED RATE 16 mm/hr Normal <=30 [facility] Comment on above: Performed By: #### U AMIC #### [facility] [address] [address] [address] Renato Weller TSHon 04-14-2022 TSH 3.056 uIU/mL Normal 0.358-3.740 [facility] Comment on above: Performed By: #### T SH, LIPID #### [facility] [address] [address] [address] Renato Weller UA RANDOM W/MICROSCOPICon BACTERIA MODERATE Abnormal NONE SEEN [facility] Comment on above: Performed By: #### C H50T #### [facility] [address] [place] [address] Dr. Renato Weller Bilirubin Ql (U) LARGE Abnormal NEGATIVE [facility] Comment on above: Performed By: #### C H50T #### [facility] [address] [address] [address] Renato Weller CAST NONE SEEN Normal NONE SEEN [facility] Comment on above: Performed By: #### C H50T #### [facility] [address] [place] [address] Dr. Renato Weller Clarity (U) CLEAR Normal CLEAR [facility] Comment on above: Performed By: #### C H50T #### [facility] [address] [place] [address] Dr. Renato Weller Color (U) LT. YELLOW Normal YELLOW [facility] [facility] Comment on above: Performed By: #### C H50T #### [facility] [address] [address] [address] Renato Weller Crystals LM Nom (Urine sed) NONE SEEN Normal NONE SEEN [facility] Comment on above: Performed By: #### C H50T #### [facility] [address] [place] [address] Dr. Renato Weller Epithelial cells LM Ql (Urine sed) MANY Abnormal NONE SEEN /RARE [facility] Comment on above: Performed By: #### C H50T #### [facility] [address] [place] [address] Dr. Renato Weller Glucose Ql (U) Negative Normal NEGATIVE The [facility] Comment on above: Performed By: #### C H50T #### [facility] [address] [place] [address] Dr. Renato Weller Hemoglobin Ql (U) Negative Normal NEGATIVE The [facility] Comment on above: Performed By: #### C H50T #### [facility] [address] [address] [address] Renato Weller Ketones Ql (U) Negative Normal NEGATIVE The [facility] Comment on above: Performed By: #### C H50T #### [facility] [address] [place] [address] Dr. Renato Weller LEUKOCYTES LARGE Abnormal NEGATIVE [facility] Comment on above: Performed By: #### C H50T #### [facility] [address] [place] [address] Dr. Renato Weller MUCOUS NONE SEEN Normal NONE SEEN [facility] Comment on above: Performed By: #### C H50T #### [facility] [address] [place] [address] Dr. Renato Weller Nitrite Ql (U) Negative Normal NEGATIVE The [facility] Comment on above: Performed By: #### C H50T #### [facility] [address] [place] [address] Dr. Renato Weller pH (U) 6.0 [pH] Normal 5-9 [facility] Comment on above: Performed By: #### C H50T #### [facility] [address] [place] [address] Dr. Renato Weller RBC 2-5 Abnormal 0-2 [facility] Comment on above: Performed By: #### C H50T #### [facility] [address] [place] [address] Dr. Renato Weller SPEC GRAVITY 1.025 Normal 1.005-<=1.025 [facility] Comment on above: Performed By: #### C H50T #### [facility] [address] [place] [address] Dr. Renato Weller UA PROTEIN Negative Normal NEGATIVE/ TRACE [facility] Comment on above: Performed By: #### C H50T #### [facility] [address] [place] [address] Dr. Renato Weller Urobilinogen Qn (U) 0.2 {Paul'U}/dL Normal 0.2 - 1. 0 [facility] Comment on above: Performed By: #### C H50T #### [facility] [address] [place], [place] [address] Dr. Renato Weller WBC 10-20 Abnormal NONE SEEN [facility] Comment on above: Performed By: #### C H50T #### [facility] [address] [place], [place] [address] Dr. Renato Weller RAD - CT Reporton 02-26-2022 RAD - CT Report [id number] 0CD:[id number] [facility] CT ABDOMEN WO CONTRASTon CT ABDOMEN [...] MARII TURCIOS Date: 2022-02-19 17:17 Normal [facility] Ambulatory Visit Summaryon 0 02-04-2022 Ambulatory Visit Summary GENNA HERRERA :1950 Visit Date:02/04/2022 Ambulatory Visit Instructions Your Diagnosis Epigastric pain Irreducible epigastric hernia Tests Performed CT Abdomen w/o Contrast -- Results Pending -- Please visit your patient portal for your results or contact your primary care physician. Your Care Team Attending Physician - SHARRI BECKER, Russell Chávez Primary Care Physician - Casandra Chopra DO [...] Varicose veins of legs Ventral hernia Normal [facility] Physician Referralon 022 Physician Referral [id number] 0CD:[id number] Normal [facility] XR DEXA BONE DENSITYon 12-30 XR [...] by: CASANDRA DURAN Date: 2021-12-30 16:10 Normal [facility] C3 and C4 COMPLEMENTon 12-17 Complement C3, Serum 122 mg/dL Normal 82-167 [facility] Comment on above: Performed By: #### C SUITE #### [facility] [address] [address] [address] Renato Weller Complement C4, Serum 24 mg/dL Normal 12-38 [facility] Comment on above: Performed By: #### C SUITE #### [facility] [address] [place] [address] Dr. Renato Weller COMPLEMENT TOTAL (CH50)on Complement, Total (CH50) >60 Normal >41 [facility] Comment on above: Result Comment: [...] values. Performed By: #### C H50T #### [facility] [address] [place] [address] Dr. Renato Weller CBC AUTO DIFFon 12-16-2021 BASO # 0.1 103/ul Normal 0.0-0.1 [facility] Comment on above: Performed By: #### L IPID, CMP #### [facility] [address] [place] [address] Dr. Renato Weller Basophils/100 WBC (Bld) 1.8 % Normal 0.2-2.0 [facility] Comment on above: Performed By: #### L IPID, CMP #### [facility] [address] [place] [address] Dr. Renato Weller EO # 0.1 103/ul Normal 0.0-0.7 [facility] Comment on above: Performed By: #### L IPID, CMP #### [facility] [address] [place] [address] Dr. Renato Weller Eosinophils/100 WBC (Bld) 2.2 % Normal 0.9-7.0 [facility] Comment on above: Performed By: #### L IPID, CMP #### [facility] [address] [place] [address] Dr. Renato Weller Erythrocyte distribution width (RBC) [Ratio] 13.8 % Normal 11.0-15.0 [facility] Comment on above: Performed By: #### L IPID, CMP #### [facility] [address] [place], [place] [id number] Dr. Renato Weller Hematocrit (Bld) [Volume fraction] 39.4 % Normal 36.0-48.0 [facility] Comment on above: Performed By: #### L IPID, CMP #### [facility] [address] [place] [address] Dr. Renato Weller Hemoglobin (Bld) [Mass/Vol] 12.5 g/dL Normal 12.0-16.0 [facility] Comment on above: Performed By: #### L IPID, CMP #### [facility] [address] [place] [address] Dr. Renato Weller IG # 0.02 10e3/ul Normal 0.00-0.03 [facility] Comment on above: Performed By: #### L IPID, CMP #### [facility] [address] [place] [address] Dr. Renato Weller IG % 0.4 % Normal 0.0-0.5 [facility] Comment on above: Performed By: #### L IPID, CMP #### [facility] [address] [place] [address] Dr. Renato Weller LYMPH # 1.0 103/ul Critically low 1.2-3.8 [facility] Comment on above: Performed By: #### L IPID, CMP #### [facility] [address] [place] [address] Dr. Renato Weller Lymphocytes/100 WBC (Bld) 18.5 % Critically low 20.5-60.0 [facility] Comment on above: Performed By: #### L IPID, CMP #### [facility] [address] [place] [address] Dr. Renato Weller MANUAL DIFF REQ NO Normal [facility] Comment on above: Performed By: #### L IPID, CMP #### [facility] [address] [place] [address] Dr. Renato Weller MCH (RBC) [Entitic mass] 30.8 pg Normal 26.7-34.0 [facility] Comment on above: Performed By: #### L IPID, CMP #### [facility] [address] [address] [address] Renato Weller MCHC (RBC) [Mass/Vol] 31.7 g/dL Normal 29.9-35.2 [facility] Comment on above: Performed By: #### L IPID, CMP #### [facility] [address] [address] [address] Renato Weller MCV (RBC) [Entitic vol] 97.0 fL Normal 81.0-99.0 [facility] Comment on above: Performed By: #### L IPID, CMP #### [facility] [address] [place] [address] Dr. Renato Weller MONO # 0.5 103/ul Normal 0.3-0.8 [facility] Comment on above: Performed By: #### L IPID, CMP #### [facility] [address] [place] [address] Dr. Renato Weller Monocytes/100 WBC (Bld) 9.3 % Normal 1.7-12.0 [facility] Comment on above: Performed By: #### L IPID, CMP #### [facility] [address] [place] [address] Dr. Renato Weller NEUT # 3.8 103/ul Normal 1.4-6.5 [facility] Comment on above: Performed By: #### L IPID, CMP #### [facility] [address] [place] [address] Dr. Renato Weller Neutrophils/100 WBC (Bld) 67.8 % Normal 43.0-75.0 [facility] Comment on above: Performed By: #### L IPID, CMP #### [facility] [address] [place] [address] Dr. Renato Weller Platelet mean volume (Bld) [Entitic vol] 9.1 fL Critically low 9.5-13.5 [facility] Comment on above: Performed By: #### L IPID, CMP #### [facility] [address] [place] [address] Dr. Renato Weller PLT 240 103/ul Normal 150-450 [facility] Comment on above: Performed By: #### L IPID, CMP #### [facility] [address] [address] [address] Renato Weller RBC 4.06 106/ul Critically low 4.20-5.40 [facility] Comment on above: Performed By: #### L IPID, CMP #### [facility] [address] [address] [address] Renato Weller WBC 5.6 103/ul Normal 4.0-11.0 [facility] Comment on above: Performed By: #### L IPID, CMP #### [facility] [address] [address] [address] Renato Weller PROF 14(COMP METB)on 022 Albumin [Mass/Vol] 3.5 g/dL Normal 3.4-5.0 [facility] Comment on above: Performed By: #### C H50T #### [facility] [address] [address] [address] Renato Weller Albumin/Globulin [Mass ratio] 1.1 {ratio} Normal [facility] Comment on above: Performed By: #### C H50T #### [facility] [address] [address] [address] Renato Weller ALP [Catalytic activity/Vol] 51 U/L Normal 46-116 [facility] Comment on above: Performed By: #### C H50T #### [facility] [address] [address] [address] Renato Weller ALT [Catalytic activity/Vol] 22 U/L Normal 14-59 [facility] Comment on above: Performed By: #### C H50T #### [facility] [address] [address] [address] Renato Weller Anion gap [Moles/Vol] 13.0 mmol/L Normal [facility] Comment on above: Performed By: #### C H50T #### [facility] [address] [address] [address] Renato Weller AST [Catalytic activity/Vol] 17 U/L Normal 15-37 [facility] Comment on above: Performed By: #### C H50T #### [facility] [address] [address] [address] Renato Weller Bilirubin [Mass/Vol] 0.4 mg/dL Normal 0.2-1.0 [facility] Comment on above: Performed By: #### C H50T #### [facility] [address] [place] [address] Dr. Renato Weller Calcium [Mass/Vol] 8.3 mg/dL Critically low 8.5-10.1 [facility] e [facility] Comment on above: Performed By: #### C H50T #### [facility] [address] [place] [address] Dr. Renato Weller Chloride [Moles/Vol] 104 mmol/L Normal 98-107 [facility] Comment on above: Performed By: #### C H50T #### [facility] [address] [place] [address] Dr. Renato Weller CO2 [Moles/Vol] 27.4 mmol/L Normal 21.0-32.0 [facility] Comment on above: Performed By: #### C H50T #### [facility] [address] [place] [address] Dr. Renato Weller Creatinine [Mass/Vol] 0.71 mg/dL Normal 0.55-1.02 [facility] Comment on above: Performed By: #### C H50T #### [facility] [address] [place] [address] Dr. Renato Weller EGFR-AF TURKISH >60 Normal >=60 [facility] Comment on above: Performed By: #### C H50T #### [facility] [address] [place] [address] Dr. Renato Weller EGFR-NON AF TURKISH >60 Normal >=60 [facility] Comment on above: Performed By: #### C H50T #### [facility] [address] [place] [address] Dr. Renato Weller Globulin (S) [Mass/Vol] 3.1 g/dL Normal [facility] Comment on above: Performed By: #### C H50T #### [facility] [address] [address] [address] Renato Weller Glucose [Mass/Vol] 85 mg/dL Normal 74-106 [facility] Comment on above: Performed By: #### C H50T #### [facility] [address] [address] [address] Renato Weller Potassium [Moles/Vol] 4.4 mmol/L Normal 3.5-5.1 [facility] Comment on above: Performed By: #### C H50T #### [facility] [address] [address] [address] Renato Weller Protein [Mass/Vol] 6.6 g/dL Normal 6.4-8.2 [facility] Comment on above: Performed By: #### C H50T #### [facility] [address] [address] [address] Renato Weller Sodium [Moles/Vol] 140 mmol/L Normal 136-145 [facility] Comment on above: Performed By: #### C H50T #### [facility] [address] [address] [address] Renato Weller Urea nitrogen [Mass/Vol] 14.0 mg/dL Normal 7.0-18.0 [facility] Comment on above: Performed By: #### C H50T #### [facility] [address] [address] [address] Renato Weller Urea nitrogen/Creatinine [Mass ratio] 19.7 mg/mg Normal [facility] Comment on above: Performed By: #### C H50T #### [facility] [address] [address] [address] Renato Weller [facility] 2021 SED RATE 6 mm/hr Normal <=30 [facility] Comment on above: Performed By: #### C H50T #### [facility] [address] [address] [address] Renato Weller UA RANDOM W/MICROSCOPICon BACTERIA TRACE Abnormal NONE SEEN [facility] Comment on above: Performed By: #### C H50T #### [facility] [address] [place] [address] Dr. Renato Weller Bilirubin Ql (U) MODERATE Abnormal NEGATIVE [facility] Comment on above: Performed By: #### C H50T #### [facility] [address] [place] [address] Dr. Renato Weller CAST NONE SEEN Normal NONE SEEN [facility] Comment on above: Performed By: #### C H50T #### [facility] [address] [place] [address] Dr. Renato Weller Clarity (U) CLEAR Normal CLEAR [facility] Comment on above: Performed By: #### C H50T #### [facility] [address] [place] [address] Dr. Renato Weller Color (U) LT. YELLOW Normal YELLOW [facility] Comment on above: Performed By: #### C H50T #### [facility] [address] [place] [address] Dr. Renato Weller Crystals LM Nom (Urine sed) NONE SEEN Normal NONE SEEN [facility] Comment on above: Performed By: #### C H50T #### [facility] [address] [place] [address] Dr. Renato Weller Epithelial cells LM Ql (Urine sed) MODERATE Abnormal NONE SEEN /RARE [facility] Comment on above: Performed By: #### C H50T #### [facility] [address] [place] [address] Dr. Renato Weller Glucose Ql (U) Negative Normal NEGATIVE [facility] Comment on above: Performed By: #### C H50T #### [facility] [address] [place] [address] Dr. Renato Weller Hemoglobin Ql (U) Negative Normal NEGATIVE [facility] Comment on above: Performed By: #### C H50T #### [facility] [address] [place] [address] Dr. Renato Weller Ketones Ql (U) Negative Normal NEGATIVE [facility] Comment on above: Performed By: #### C H50T #### [facility] [address] [place] [address] Dr. Renato Weller LEUKOCYTES SMALL Abnormal NEGATIVE [facility] Comment on above: Performed By: #### C H50T #### [facility] [address] [place] [address] Dr. Renato Weller MUCOUS NONE SEEN Normal NONE SEEN [facility] Comment on above: Performed By: #### C H50T #### [facility] [address] [place] [address] Dr. Renato Weller Nitrite Ql (U) Negative Normal NEGATIVE [facility] Comment on above: Performed By: #### C H50T #### [facility] [address] [place] [address] Dr. Renato Weller pH (U) 6.0 [pH] Normal 5-9 [facility] Comment on above: Performed By: #### C H50T #### [facility] [address] [place] [address] Dr. Renato Weller RBC NONE SEEN Abnormal 0-2 [facility] Comment on above: Performed By: #### C H50T #### [facility] [address] [place] [address] Dr. Renato Weller SPEC GRAVITY 1.010 Normal 1.005-<=1.025 [facility] Comment on above: Performed By: #### C H50T #### [facility] [address] [place] [address] Dr. Renato Weller UA PROTEIN Negative Normal NEGATIVE/ TRACE [facility] Comment on above: Performed By: #### C H50T #### [facility] [address] [place] [address] Dr. Renato Weller Urobilinogen Qn (U) 0.2 {Paul'U}/dL Normal 0.2 - 1. 0 [facility] Comment on above: Performed By: #### C H50T #### [facility] [address] [place] [address] Dr. Renato Weller WBC 2-5 Abnormal NONE SEEN [facility] Comment on above: Performed By: #### C H50T #### [facility] [address] [address] [address] Renato Weller C-Reactive Proteinon 019 CRP [Mass/Vol] 0.6 mg/dL Normal 0.0-1.0 [facility] Comment on above: Performed By: #### C BC, CK, CMP, CRP, T4F, TSH3, ESR #### [address] Complete Blood Count Auto Di ffon 04-06-2019 Basophils (Bld) [#/Vol] 0.1 10*3/uL Normal 0.0-0.2 [facility] Comment on above: Result Comment: PERF ORMED BY: [place] [address] PATHOLOGIST DRUM CARRIER ROSLYN TALLEY M.D. Performed By: #### C BC, CK, CMP, CRP, T4F, TSH3, ESR #### [address] Basophils/100 WBC (Bld) 1.0 % Normal . [facility] Comment on above: Performed By: #### C BC, CK, CMP, CRP, T4F, TSH3, ESR #### [address] Eosinophils (Bld) [#/Vol] 0.1 10*3/uL Normal 0.0-0.45 [facility] Comment on above: Performed By: #### C BC, CK, CMP, CRP, T4F, TSH3, ESR #### [address] Eosinophils/100 WBC (Bld) 0.9 % Normal . [facility] Comment on above: Performed By: #### C BC, CK, CMP, CRP, T4F, TSH3, ESR #### [address] Erythrocyte distribution width (RBC) [Ratio] 14.5 % Normal 11.9-15.3 [facility] Comment on above: Performed By: #### C BC, CK, CMP, CRP, T4F, TSH3, ESR #### [address] Hematocrit (Bld) [Volume fraction] 44.9 % Normal 34.0-46.4 [facility] Comment on above: Performed By: #### C BC, CK, CMP, CRP, T4F, TSH3, ESR #### [address] Hemoglobin (Bld) [Mass/Vol] 15.2 g/dL Normal 11.8-15.4 [facility] Comment on above: Performed By: #### C BC, CK, CMP, CRP, T4F, TSH3, ESR #### [address] Lymphocytes (Bld) [#/Vol] 1.1 10*3/uL Normal 1.00-4.8 [facility] Comment on above: Performed By: #### C BC, CK, CMP, CRP, T4F, TSH3, ESR #### [address] Lymphocytes/100 WBC (Bld) 14.6 % Normal . [facility] Comment on above: Performed By: #### C BC, CK, CMP, CRP, T4F, TSH3, ESR #### [address] MCH (RBC) [Entitic mass] 34.0 g/dL Normal 32.0-35.0 [facility] Comment on above: Performed By: #### C BC, CK, CMP, CRP, T4F, TSH3, ESR #### [address] MCH (RBC) [Entitic mass] 30.8 pg Normal 24.7-34.3 [facility] Comment on above: Performed By: #### C BC, CK, CMP, CRP, T4F, TSH3, ESR #### [address] MCV (RBC) [Entitic vol] 90.5 fL Normal 80-100 [facility] Comment on above: Performed By: #### C BC, CK, CMP, CRP, T4F, TSH3, ESR #### [facility] [address] Monocytes (Bld) [#/Vol] 0.5 10*3/uL Normal 0.0-0.8 [facility] Comment on above: Performed By: #### C BC, CK, CMP, CRP, T4F, TSH3, ESR #### [facility] [address] Monocytes/100 WBC (Bld) 7.0 % Normal . [facility] Comment on above: Performed By: #### C BC, CK, CMP, CRP, T4F, TSH3, ESR #### [address] Neutrophils (Bld) [#/Vol] 6.0 10*3/uL Normal 1.8-7.7 [facility] Comment on above: Performed By: #### C BC, CK, CMP, CRP, T4F, TSH3, ESR #### [address] Neutrophils/100 WBC (Bld) 76.5 % Normal . [facility] Comment on above: Performed By: #### C BC, CK, CMP, CRP, T4F, TSH3, ESR #### [place] [address] [place] Nucleated RBC/100 WBC (Bld) [Ratio] 0.2 % Normal 0-0.5 [facility] Comment on above: Performed By: #### C BC, CK, CMP, CRP, T4F, TSH3, ESR #### [facility] [address] Platelet mean volume (Bld) [Entitic vol] 8.6 fL Normal 6.3-10.7 [facility] Comment on above: Performed By: #### C BC, CK, CMP, CRP, T4F, TSH3, ESR #### [address] Platelets (Bld) [#/Vol] 218 10*3/uL Normal 150-450 [facility] Comment on above: Performed By: #### C BC, CK, CMP, CRP, T4F, TSH3, ESR #### [facility] [address] RBC (Bld) [#/Vol] 4.96 10*6/uL Normal 3.60-5.00 [facility] Comment on above: Performed By: #### C BC, CK, CMP, CRP, T4F, TSH3, ESR #### [facility] [address] WBC (Bld) [#/Vol] 7.8 10*3/uL Normal 4.5-11.0 [facility] [place] Comment on above: Performed By: #### C BC, CK, CMP, CRP, T4F, TSH3, ESR #### [facility] [address] Comprehensive Metabolic Pane molly 04-06-2019 Albumin [Mass/Vol] 4.0 g/dL Normal 3.2-5.5 [facility] [place] Comment on above: Performed By: #### C BC, CK, CMP, CRP, T4F, TSH3, ESR #### [address] Albumin/Globulin [Mass ratio] 1.5 {ratio} Normal [facility] Comment on above: Performed By: #### C BC, CK, CMP, CRP, T4F, TSH3, ESR #### [facility] [address] ALP [Catalytic activity/Vol] 40 U/L Normal 32-92 [facility] Comment on above: Performed By: #### C BC, CK, CMP, CRP, T4F, TSH3, ESR #### [facility] [address] ALT [Catalytic activity/Vol] 10 U/L Normal 10-60 [facility] Comment on above: Performed By: #### C BC, CK, CMP, CRP, T4F, TSH3, ESR #### [facility] [address] AST [Catalytic activity/Vol] 15 U/L Normal 10-42 [facility] Comment on above: Performed By: #### C BC, CK, CMP, CRP, T4F, TSH3, ESR #### [address] Bilirubin [Mass/Vol] 0.6 mg/dL Normal 0.3-1.2 [facility] Comment on above: Performed By: #### C BC, CK, CMP, CRP, T4F, TSH3, ESR #### [address] Calcium [Mass/Vol] 9.6 mg/dL Normal 8.2-10.2 [facility] [place] Comment on above: Performed By: #### C BC, CK, CMP, CRP, T4F, TSH3, ESR #### [address] Chloride [Moles/Vol] 103 mmol/L Normal 95-114 [facility] Comment on above: Performed By: #### C BC, CK, CMP, CRP, T4F, TSH3, ESR #### [address] CO2 [Moles/Vol] 26.6 mmol/L Normal 22.0-30.0 [facility] Comment on above: Performed By: #### C BC, CK, CMP, CRP, T4F, TSH3, ESR #### [address] Creatinine [Mass/Vol] 0.79 mg/dL Normal 0.44-1.03 [facility] Comment on above: Performed By: #### C BC, CK, CMP, CRP, T4F, TSH3, ESR #### [address] Estimated GFR ( Kimberly > 60 Normal [facility] Comment on above: Result Comment: GFR estimated reference range: According to KDOQI guidelines, <60 ml/min/1.73m2 is sufficient to diagnose a patient with chronic kidney disease. Performed By: #### C BC, CK, CMP, CRP, T4F, TSH3, ESR #### [address] Estimated GFR (Non- Am > 60 Normal [facility] Comment on above: Performed By: #### C BC, CK, CMP, CRP, T4F, TSH3, ESR #### [address] Globulin (S) [Mass/Vol] 2.6 g/dL Normal [facility] Comment on above: Performed By: #### C BC, CK, CMP, CRP, T4F, TSH3, ESR #### [address] Glucose [Mass/Vol] 87 mg/dL Normal 70-100 [facility] [place] Comment on above: Result Comment: [facility] Glucose Reference Range is dependent on time and content of last meal. Glucose of more than 200 mg/dL in a nonstressed, ambulatory subject supports the diagnosis of Diabetes Mellitus. ADA recommended reference range Performed By: #### C BC, CK, CMP, CRP, T4F, TSH3, ESR #### [address] Potassium [Moles/Vol] 4.2 mmol/L Normal 3.5-5.1 [facility] Comment on above: Performed By: #### C BC, CK, CMP, CRP, T4F, TSH3, ESR #### [address] Protein [Mass/Vol] 6.6 g/dL Normal 6.1-7.9 [facility] Comment on above: Performed By: #### C BC, CK, CMP, CRP, T4F, TSH3, ESR #### [address] Sodium [Moles/Vol] 140 mmol/L Normal 136-146 [facility] [place] Comment on above: Performed By: #### C BC, CK, CMP, CRP, T4F, TSH3, ESR #### [facility] [address] [place] [address] [place] Urea nitrogen [Mass/Vol] 12 mg/dL Normal 9-23 [facility] Comment on above: Performed By: #### C BC, CK, CMP, CRP, T4F, TSH3, ESR #### [facility] [address] [place] [id number] [place] Creatine Kinaseon 04-06-2019 CK [Catalytic activity/Vol] 46 U/L Normal 22-269 [facility] Comment on above: Result Comment: PERF ORMED BY: [place] [address] PATHOLOGIST DRUM CARRIER ROSLYN TALLEY M.D. Performed By: #### C BC, CK, CMP, CRP, T4F, TSH3, ESR #### [place] [address] [place] Dipstick and Microscopicon 1 Appearance (U) Turbid Critically abnormal Clear [facility] Comment on above: Order Comment: Name Collection Type:: Clean-Voided Midstream Performed By: #### A DDONUAPLUS, PT, PTT #### [place] [address] [place] Bacteria LM.HPF (Urine sed) [#/Area] 1+ High None Seen [facility] Comment on above: Order Comment: Name Collection Type:: Clean-Voided Midstream Performed By: #### A DDONUAPLUS, PT, PTT #### [place] [address] [place] Bilirubin,Urine Negative Normal Negative [facility] Comment on above: Order Comment: Name Collection Type:: Clean-Voided Midstream Performed By: #### A DDONUAPLUS, PT, PTT #### [place] [address] [place] Color (U) Yellow Normal Yellow [facility] Comment on above: Order Comment: Name Collection Type:: Clean-Voided Midstream Performed By: #### A DDONUAPLUS, PT, PTT #### [place] [address] [place] Glucose Ql (U) Normal Normal Normal [facility] Comment on above: Order Comment: Name Collection Type:: Clean-Voided Midstream Performed By: #### A DDONUAPLUS, PT, PTT #### [facility] [address] [place] [address] Hyaline Casts,Urine None Seen Normal 0-1 [facility] Comment on above: Order Comment: Name Collection Type:: Clean-Voided Midstream Performed By: #### A DDONUAPLUS, PT, PTT #### [facility] [address] [place] [address] Ketones Ql (U) Trace High Negative [facility] Comment on above: Order Comment: Name Collection Type:: Clean-Voided Midstream Performed By: #### A DDONUAPLUS, PT, PTT #### [facility] [address] [place] [address] Leukocyte esterase Test strip Ql (U) 3+ High Negative [facility] Comment on above: Order Comment: Name Collection Type:: Clean-Voided Midstream Performed By: #### A DDONUAPLUS, PT, PTT #### [facility] [address] [place] [address] [place] Nitrite,Urine Negative Normal Negative [facility] Comment on above: Order Comment: Name Collection Type:: Clean-Voided Midstream Performed By: #### A DDONUAPLUS, PT, PTT #### [facility] [address] [place] [address] [place] Occult Blood,Urine Negative Normal Negative [facility] [place] Comment on above: Order Comment: Name Collection Type:: Clean-Voided Midstream Performed By: #### A DDONUAPLUS, PT, PTT #### [facility] [address] [place] [address] [place] Other Casts,Urine None Seen Normal None Seen [facility] Comment on above: Order Comment: Name Collection Type:: Clean-Voided Midstream Result Comment: PERF ORMED BY: [place] [address] PATHOLOGIST DRUM CARRIER JIANLAN SUN M.D. Performed By: #### A DDONUAPLUS, PT, PTT #### [address] pH (U) 5.0 [pH] Normal 5.0-9.0 [facility] Comment on above: Order Comment: Name Collection Type:: Clean-Voided Midstream Performed By: #### A DDONUAPLUS, PT, PTT #### [address] Protein (U) [Mass/Vol] Negative Normal Negative [facility] Comment on above: Order Comment: Name Collection Type:: Clean-Voided Midstream Performed By: #### A DDONUAPLUS, PT, PTT #### [address] RBC LM.HPF (Urine sed) [#/Area] 5-9 High 0-4 [facility] Comment on above: Order Comment: Name Collection Type:: Clean-Voided Midstream Performed By: #### A DDONUAPLUS, PT, PTT #### [address] Specificy [place],Urine 1.024 Normal 1.001-1.030 [facility] Comment on above: Order Comment: Name Collection Type:: Clean-Voided Midstream Performed By: #### A DDONUAPLUS, PT, PTT #### [address] Squamous Epithelial Cell,Urine 5-9 High 0-2 [facility] Comment on above: Order Comment: Name Collection Type:: Clean-Voided Midstream Performed By: #### A DDONUAPLUS, PT, PTT #### [place] [address] [place] Urobilinogen,Urine Normal Normal Normal [facility] Comment on above: Order Comment: Name Collection Type:: Clean-Voided Midstream Performed By: #### A DDONUAPLUS, PT, PTT #### [place] [address] [place] WBC LM.HPF (Urine sed) [#/Area] 20-49 High 0-4 [facility] Comment on above: Order Comment: Name Collection Type:: Clean-Voided Midstream Performed By: #### A DDONUAPLUS, PT, PTT #### [address] Erythrocyte Sedimentation Ra roosevelt 04-06-2019 ESR (Bld) [Velocity] 23 mm/h Normal 0-30 [facility] Comment on above: Result Comment: PERF ORMED BY: [place] [address] PATHOLOGIST DRUM CARRIER ROSLYN TALLEY M.D. Performed By: #### C BC, CK, CMP, CRP, T4F, TSH3, ESR #### [address] Free T4 (Free Thyroxine)on 1 Free T4 [Mass/Vol] 0.88 ng/dL Normal 0.61-1.12 [facility] Comment on above: Performed By: #### C BC, CK, CMP, CRP, T4F, TSH3, ESR #### [place] [address] [place] Partial Thromboplastin Timeo n 04-06-2019 aPTT Coag (Bld) [Time] 29.8 s Normal 23.0-35.0 [facility] Comment on above: Order Comment: List the anticoagulant: NONE Result Comment: PERF ORMED BY: [place] [address] PATHOLOGIST DRUM CARRIER ROSLYN TALLEY M.D. Performed By: #### A DDONUAPLUS, PT, PTT #### [place] [address] [place] Prothrombin Time INRon 04-06 INR Coag (Bld) [Relative time] 10.3 s Normal 9.0-12.9 [facility] Comment on above: Order Comment: List the anticoagulant: NONE Performed By: #### A DDONUAPLUS, PT, PTT #### [address] INR Coag (PPP) [Relative time] 0.9 [...] By: #### A DDONUAPLUS, PT, PTT #### [facility] [address] Thyroid Stimulating Hormoneo n 04-06-2019 TSH Qn 2.89 u[iU]/mL Normal 0.45-5.33 [facility] Comment on above: Result Comment: PERF ORMED BY: [address] [place] [address] PATHOLOGIST DRUM CARRIER ROSLYN TALLEY M.D. Performed By: #### C BC, CK, CMP, CRP, T4F, TSH3, ESR #### [facility] [address] [place] [id number] [facility] Vital Signs Date Time Vital Sign Value Performing Clinician Facility 02-16-2024 09:19040 Body height 160.02 cm DO Casandra Nav Work Phone: [facility] 02-16-2024 09:19040 Body mass index (BMI) [Ratio] 30.6 kg/m2 DO Casandra Chopra Work Phone: [facility] 02-16-2024 09:19040 Body temperature 97.9 [degF] DO Casandra Chopra Work Phone: [facility] 02-16-2024 09:19040 Body weight 78.47 kg DO Casandra Chopra Work Phone: [facility] 02-16-2024 09:19040 Diastolic blood pressure 74 mm[Hg] DO Casandra Chopra Work Phone: [facility] 02-16-2024 09:19-0400 Heart rate 48 /min DO Casandra Chopra Work Phone: [facility] 02-16-2024 09:19-0400 SaO2% (BldA) [Mass fraction] 99 % DO Casandra Chopra Work Phone: [facility] 02-16-2024 09:19-0400 Systolic blood pressure 116 mm[Hg] DO Casandra Chopra Work Phone: [facility] 05-05-2023 09:10-0400 Body height 160.02 cm Casandra Chopra Other [employer] [facility] [employer] Other 05-05-2023 09:10-0400 Body mass index (BMI) [Ratio] 31.35 kg/m2 Casandra Chopra Other [employer] Other 05-05-2023 09:10-0400 Body temperature 98.9 [degF] Casandra Leunglaura Other [employer] Other 05-05-2023 09:10-0400 Body weight 80.29 kg Casandra Chopra Other [employer] Other 05-05-2023 09:10-0400 Diastolic blood pressure 68 mm[Hg] Casandra Chopra Other [employer] Other 05-05-2023 09:10-0400 Respiratory rate 18 /min Casandra Chopra Other [employer] Other 05-05-2023 09:10-0400 SaO2% (BldA) [Mass fraction] 98 % Casandra Xochitllaura Other [employer] Other 05-05-2023 09:10-0400 Systolic blood pressure 112 mm[Hg] Casandra Chopra Other [employer] Other 02-23-2023 11:40-0400 Body height 160.02 cm Eva Blades Other [employer] Other 02-23-2023 11:40-0400 Body mass index (BMI) [Ratio] 31.35 kg/m2 Eva Blades Other [employer] Other 02-23-2023 11:40-0400 Body weight 80.29 kg Eva Blades Other [employer] Other 02-23-2023 11:40-0400 Diastolic blood pressure 78 mm[Hg] Eva Blades Other [employer] Other 02-23-2023 11:40-0400 Systolic blood pressure 110 mm[Hg] Eav Blades Other [employer] Other 12-29-2022 10:00-0400 Body height 160.02 cm Germaine Manuel Other [employer] Other 12-29-2022 10:00-0400 Body mass index (BMI) [Ratio] 30.82 kg/m2 Germaine Manuel Other [employer] Other 12-29-2022 10:00-0400 Body weight 78.93 kg Germaine Manuel Other [employer] Other 12-29-2022 10:00-0400 Diastolic blood pressure 68 mm[Hg] Germaine Manuel Other [employer] Other 12-29-2022 10:00-0400 Systolic blood pressure 118 mm[Hg] Germaine Manuel Other [employer] Other 10-28-2022 10:10-0400 Body height 160.02 cm Casandra Chopra Other [employer] Other 10-28-2022 10:10-0400 Body mass index (BMI) [Ratio] 31.7 kg/m2 Casandra Chopra Other [employer] Other 10-28-2022 10:10-0400 Body temperature 97.6 [degF] Casandra Xochitllaura Other [employer] Other 10-28-2022 10:10-0400 Body weight 81.19 kg Casandra Chopra Other [employer] Other 10-28-2022 10:10-0400 Diastolic blood pressure 68 mm[Hg] Casandra Leunglaura Other [employer] Other 10-28-2022 10:10-0400 Respiratory rate 18 /min Casandra Chopra Other [employer] Other 10-28-2022 10:10-0400 SaO2% (BldA) [Mass fraction] 99 % Casandra Chopra Other [employer] Other 10-28-2022 10:10-0400 Systolic blood pressure 112 mm[Hg] Casandra Xochitllaura Other [employer] Other 02-04-2022 15:05-0400 Blood Pressure Location Russell BENITEZL [facility] [place] 02-04-2022 15:05-0400 Diastolic blood pressure 60 mm[Hg] Russell NILL [facility] [place] 02-04-2022 15:05-0400 Heart rate 72 /min Russell BENITEZL [facility] [place] 02-04-2022 15:05-0400 Respiratory rate 16 /min Russell HARRELL [facility] [place] 02-04-2022 15:05-0400 Systolic blood pressure 116 mm[Hg] Russell HARRELL [facility] [place] 10-17-2021 09:50-0400 Body height 160.02 cm Casandra Chopra Other [employer] Other 10-17-2021 09:50-0400 Body mass index (BMI) [Ratio] 31 kg/m2 Casandra Chopra Other [employer] Other 10-17-2021 09:50-0400 Body temperature 97.8 [degF] Casandra Chopra Other [employer] Other 10-17-2021 09:50-0400 Body weight 79.38 kg Casandra Chopra Other [employer] Other 10-17-2021 09:50-0400 Diastolic blood pressure 64 mm[Hg] Casandra Chopra Other [employer] Other 10-17-2021 09:50-0400 Respiratory rate 18 /min Casandra Chopra Other [employer] Other 10-17-2021 09:50-0400 SaO2% (BldA) [Mass fraction] 97 % Casandra Chopra Other [employer] Other 10-17-2021 09:50-0400 Systolic blood pressure 102 mm[Hg] Casandra Chopra Other [employer] Other 09-04-2021 09:10-0500 Body height 160.02 cm Casandra Nav Other [employer] Other 09-04-2021 09:10-0500 Body mass index (BMI) [Ratio] 30.11 kg/m2 Casandra Nav Other [employer] Other 09-04-2021 09:10-0500 Body temperature 97.6 [degF] Casandra Chopra Other [employer] Other 09-04-2021 09:10-0500 Body weight 77.11 kg Casandra Xochitllaura Other [employer] Other 09-04-2021 09:10-0500 Diastolic blood pressure 68 mm[Hg] Casandra Chopra Other [employer] Other 09-04-2021 09:10-0500 Respiratory rate 18 /min Casandra Chopra Other [employer] Other 09-04-2021 09:10-0500 SaO2% (BldA) [Mass fraction] 99 % Casandra Leunglaura Other [employer] Other 09-04-2021 09:10-0500 Systolic blood pressure 104 mm[Hg] Casandra Chopra Other [employer] Other 04-10-2021 10:10-0400 Body height 160.02 cm Casandra Leunglaura Other [employer] Other 04-10-2021 10:10-0400 Body mass index (BMI) [Ratio] 31 kg/m2 Casandra Xochitllaura Other [employer] Other 04-10-2021 10:10-0400 Body temperature 97.4 [degF] Casandra Chopra Other [employer] Other 04-10-2021 10:10-0400 Body weight 79.38 kg Casandra Chopra Other [employer] Other 04-10-2021 10:10-0400 Diastolic blood pressure 76 mm[Hg] Casandra Chopra Other [employer] Other 04-10-2021 10:10-0400 Respiratory rate 18 /min Casandra Chopra Other [employer] Other 04-10-2021 10:10-0400 SaO2% (BldA) [Mass fraction] 99 % Casandra Chopra Other [employer] Other 04-10-2021 10:10-0400 Systolic blood pressure 118 mm[Hg] Casandra Chopra Other [employer] Other Encounters Encounter Date Encounter Type Care Provider Facility Start: 03-21-2024 ambulatory Domingo George Facility :[facility] Start: 02-23-2024 End: 02-23-2024 ambulatory PHYSICIAN NO [facility] Work Phone: Start: 02-23-2024 End: 02-23-2024 Patient encounter procedure PHYSICIAN NO [facility] Work Phone: Start: 02-16-2024 End: 02-16-2024 ambulatory PHYSICIAN NO [facility] Work Phone: Start: 02-16-2024 End: 02-16-2024 Departed Referred DO Casandra Chopra Work Phone: [facility] Work Phone: Start: 02-16-2024 End: 02-16-2024 Patient encounter procedure DO Casandra Chopra Work Phone: [facility] [place] Work Phone: Start: 02-10-2024 Non-patient / Non-visit DO Casandra Chopra Work Phone: [facility] Work Phone: Start: 01-25-2024 Non-patient / Non-visit DO Casandra Chopra Work Phone: [facility] Work Phone: Start: 12-04-2023 Non-patient / Non-visit DO Casandra Chopra Work Phone: [facility] Work Phone: Start: 05-12-2023 End: 05-12-2023 ambulatory Casandra Chopra Other [facility] [employer] Other Start: 05-12-2023 Telephone encounter Casandra Chopra [facility] [place] Start: 05-05-2023 End: 05-05-2023 ambulatory Casandra Chopra Other [facility] [employer] Other Start: 05-05-2023 Office outpatient visit 25 minutes Casandra Chopra [facility] [place] Start: 05-05-2023 Telephone encounter Casandra Chopra [facility] [place] Start: 02-23-2023 End: 02-23-2023 ambulatory Eva Cortes Other [facility] [employer] Other Start: 02-23-2023 Office outpatient visit 15 minutes Eva Cortes [facility] Start: 02-19-2023 End: 02-19-2023 ambulatory DO Josiah Samuel Work Phone: [facility] Work Phone: Start: 02-19-2023 End: 02-19-2023 Patient encounter procedure DO Josiah Samuel Work Phone: [facility] Work Phone: Start: 02-12-2023 End: 02-12-2023 ambulatory Casandra Chopra Other [employer] Other Start: 02-12-2023 Telephone encounter Casandra Chopra [facility] [place] Start: 02-02-2023 End: 02-02-2023 ambulatory Casandra Chopra Other [employer] Other Start: 02-02-2023 Telephone encounter Casandra Chopra [facility] [place] Start: 12-30-2022 End: 12-30-2022 ambulatory Germaine Manuel Other [employer] Other Start: 12-30-2022 Telephone encounter Germaine Manuel [facility] Start: 12-29-2022 End: 12-29-2022 ambulatory Germaine Manuel Other [employer] Other Start: 12-29-2022 Office outpatient ne w 45 minutes Germaine Manuel [facility] Start: 12-02-2022 End: 12-03-2022 ambulatory CHRISSY VENEGAS . Facility:[facility] Start: 10-28-2022 End: 10-28-2022 ambulatory Casandra Chopra Other [employer] Other Start: 10-28-2022 Office outpatient visit 25 minutes Casandra Chopra [facility] [place] Start: 10-22-2022 End: 10-23-[address] CASANDRA CHOPRA Facility:[facility] Start: 09-15-2022 End: 09-15-2022 ambulatory Casandra Chopra Other [employer] Other Start: 09-15-2022 Telephone encounter Casandra Chopra [facility] [place] Start: 08-18-2022 End: 08-19-[address] CASANDRA CHOPRA Facility:[facility] Start: 05-12-2022 End: 05-13-[address] CASANDRA CHOPRA Facility:[facility] Start: 05-05-2022 End: 05-05-2022 ambulatory Casandra Chopra Other [employer] Other Start: 05-05-2022 Telephone encounter Casandra Chopra [facility] [place] Start: 05-01-2022 End: 05-02-[address] CASANDRA CHOPRA Facility:[facility] Start: 04-14-2022 End: 04-15-[address] CASANDRA CHOPRA Facility:[facility] Start: 02-19-2022 End: 02-20-[address] CASANDRA CHOPRA Facility:[facility] Start: 02-04-2022 End: 02-04-2022 Patient encounter procedure Russell R NILL [facility] Nill/[facility] [place] Start: 12-30-2021 End: 12-31-[address] CASANDRA CHOPRA Facility:[facility] Start: 12-16-2021 End: 12-17-[address] CASANDRA CHOPRA Facility:[facility] Start: 12-03-2021 End: 12-03-2021 ambulatory Casandra Chopra Other [employer] Other Start: 12-03-2021 Telephone encounter Casandra Chopra [facility] [place] Start: 10-22-2021 End: 10-22-2021 ambulatory Casandra Chopra Other [employer] Other Start: 10-22-2021 Telephone encounter Casandra Chopra [facility] [place] Start: 10-17-2021 End: 10-17-2021 ambulatory Casandra Chopra Other [employer] Other Start: 10-17-2021 Office outpatient visit 25 minutes Casandra Chopra [facility] [place] Start: 10-17-2021 Telephone encounter Casandra Chopra [facility] [place] Start: 09-04-2021 End: 09-04-2021 ambulatory Casandra Chopra Other [employer] Other Start: 09-04-2021 Office outpatient visit 15 minutes Casandra Chopra [facility] [place] Start: 04-24-2021 Telephone encounter Casandra Chopra [facility] [place] Start: 04-10-2021 Office outpatient visit 15 minutes Casandra Chopra [facility] Procedures Date Procedure Procedure Detail Performing Clinician Start: 02-23-2024 X-ray of left knee PHYS ICIAN NO FAMILY Start: 02-23-2024 X-ray of right knee PHY SICIAN NO FAMILY Start: 02-16-2024 Urine culture PHYSICIAN NO FAMILY Start: 02-19-2023 MR thoracic spine wo con DO Josiah Samuel Work Phone: Start: 02-19-2023 XR pre/post mri xray DO Josiah Samuel Work Phone: Start: 06-09-2018 Colonoscopy Russell NI LL Arthroscopy of shoulder Ethan ael NILL Excision of bunion Russell LEVINE Extraction of cataract Llee el NILL Hammer toe operation Russell NILL [...] 02-16-2024 Bacteria identified in Urine by Culture [facility] Immunizations Immunization Date Immunization Notes Care Provider Shyla hall 04-20-2021 COVID-19 Vaccine Pfizer - Documentation Purposes Only Casandra Chopra Other [facility] 04-10-2021 influenza, seasonal, injectable Patient Objection Casandra Chopra Other [employer] Other 03-30-2021 COVID-19 Vaccine Pfizer - Documentation Purposes Only Casandra Chopra Other [facility] 11-21-2016 Toradol per 15 mg Casandra Calderon in Other [employer] Other 06-02-2016 influenza, seasonal, injectable Patient Objection Casandra Chopra Other [employer] Other 06-02-2016 pneumococcal polysaccharide vaccine, 23 valent Patient Objection Casandra Chopra Other [employer] Other 03-23-2012 Kenalog 40/Xylocaine Casandra mendieta Other [employer] Other NEGATED: Highlighted row has not occurred! 1 influenza, seasonal, injectable Patient Objection Casandra Chopra Other [facility] NEGATED: Highlighted row has not occurred! 6 influenza, seasonal, injectable Patient Objection Casandra Chopra Other [facility] NEGATED: Highlighted row has not occurred! 6 pneumococcal polysaccharide vaccine, 23 valent Patient Objection Casandra Chopra Other [facility] Payers Date Payer Category Payer Private Health Insurance [id number] [id number] Self-pay [id number] 2019 Medicare [id number] 1959 Medicare [id number] Medicare [id number] 1959 Private Health Insurance [id number] 1959 Unknown [id number] 1952 Unknown [id number] 2.16.84 [id number] 1952 Unknown [id number] 2.16.84 [id number] 1952 Unknown [id number] 2.16.84 [id number] 1952 Unknown [id number] 2.16.84 [id number] 1952 Unknown [id number] 2.16.84 [id number] 1950 Unknown [id number] 2.16.84 [id number] 1950 Unknown [id number] 2.16.84 [id number] 1950 Unknown [id number] 2.16.84 [id number] 1950 Unknown [id number] 2.16.84 [id number] 1950 Unknown [id number] 2.16.84 [id number] Unknown [id number] 2.16.8 [id number] Unknown [id number] 2.16.8 [id number] Unknown [id number] 2.16.8 [id number] Social History Date Type Detail Facility Unknown if ever smoked [facility] [employer] Other Start: 07-06-1986 Sex Assigned At [facility] [employer] Other Start: 02-04-2022 Tobacco smoking status Heavy t obacco smoker (finding) [facility] [place] Tobacco smoking status Never [facility] [place] Start: 1950 Sex Assigned At Female [facility] Start: 11-04-2023 Tobacco smoking stat us ALIS Smoker (finding) [facility] Functional Status Date Assessment Result Facility 02-04-2022 Functional Status N/A General [facility] hood Chen Clinical Notes 08-11-2012 to 02-16-2024 Note Date & Type Note Facility 02-16-2024 Evaluation note Authored February 16, 2024 10:49am The above note written by __ _Hero Cody____ acting as human recorder, note dictated by Dr. Li .I performed the above HPI, ROS, and Examination. I formulated and dictated the treatment plan and was present for entire encounter. Casandra Chopra D.O. [facility] Work Phone: [phone] 170-384410-31-2023 Evaluation note* Encounter Date Diagnosis Assessment Notes Treatment Notes Treatment Clinical Notes Apr, Hematuria (ICD-10 - R31.9) [employer] Other 10-31-2023 Evaluation note* Encounter Date Diagnosis [...] with above medications as directed. Apr, Other residential (current) drug therapy (ICD-10 - Z79.899) Apr, [...] him know. She has not been mulching. [employer] Other 08-21-2023 Evaluation note* Encounter Date Diagnosis Assessment Notes Treatment Notes Treatment Clinical Notes Feb, Compression fracture of T8 vertebra with routine healing, subsequent encounter (ICD-10 - S22.060D) [employer] Other 06-26-2023 Evaluation note* Encounter Date Diagnosis [...] (ICD-10 - R26.81) Dec, Other OARRS reviewed [employer] Other 04-25-2023 Evaluation note* Encounter Date Diagnosis [...] use above medications as needed. Oct, Other residential (current) drug therapy (ICD-10 - Z79.899) Oct, Polyarthralgia (ICD-10 - M25.50) She does continue to follow with Dr. 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 Oct, COPD (chronic obstructive pulmonary [...] breaths out before she lifts anything heavy. [employer] Other 03-13-2023 Evaluation note* Encounter Date Diagnosis Assessment Notes Treatment Notes Treatment Clinical Notes Sep, Hyperlipidemia (ICD-10 - E78.5) [employer] Other 10-31-2022 Evaluation note* Encounter Date Diagnosis Assessment Notes Treatment Notes Treatment Clinical Notes Apr, Hematuria (ICD-10 - R31.9) [employer] Other 08-04-2022 NoteChief Complaint consultation for ventral hernia HPI Staff 71 year old female presents on consultation from Dr. Chopra for ventral hernia. Reports she moved [employer] object two months ago. Noted epigastric lump [...] tab(s), Oral, Daily potassium (more content not included)...[facility]Result Comment: Electronically Signed By: SHARRI BECKER, Russell Valverde\Date and Time Signed: 02/06/22 10:42 [id number] Evaluation note* Encounter Date Diagnosis Assessment Notes [...] with above medication as needed. 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 Oct, Other She voices that her left hand [...] will let me know if it worsens. 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 When she was seen by Dr. Bell's MILITARY EXCHANGE WIRELESS MANAGER her BP was 80/60 so they wanted [...] stress is going to go down soon. [employer] Other 10-06-2021 Evaluation note* Encounter Date Diagnosis [...] with above medication as needed. Apr, Other residential (current) drug therapy (ICD-10 - Z79.899) Apr, Other She voices that if she does not take Cranberry tablets her urine becomes thick so she does take the supplement daily. She will be getting her second COVID-19 vaccine on 04-20-21. [employer] Other 02-06-2013 History general Narrative - Reported* Type Description Date Medical History left shoulder & elbow problems Medical History 08/11/12 Cervical spine x-ray [facility] Medical History 10/26/14 refused colonoscopy Medical History [...] Surgical History cataract surgery both eyes [facility] 2017 Surgical History Colonoscopy, Dr. Adama varma, needs repeat in 06-09-2018 Hospitalization History above Hospitalization History natural 05/29/19 74 Hospitalization History natural 7 [employer] Other 02-06-2013 History general Narrative - Reported* Type Description Date Medical History left shoulder & elbow problems Medical History 08/11/12 Cervical spine x-ray [facility] Medical History 10/26/14 refused colonoscopy Medical History [...] 02/1977 Surgical History cataract surgery both eyes [facility] 2017 Surgical History Colonoscopy, Dr. Adama varma, needs repeat in 202406-09-2018 Hospitalization History above Hospitalization History natural 05/29/19 74 Hospitalization History natural 7 [employer] Other 02-06-2013 History general Narrative - Reported* Type Description Date Medical History left shoulder & elbow problems Medical History 08/11/12 Cervical spine x-ray [facility] Medical History 10/26/14 refused colonoscopy Medical History [...] Surgical History cataract surgery both eyes [email or web address] Surgical History Colonoscopy, Dr. Adama varma, needs repeat in 202406-09-2018 Surgical History back surgery Hospitalization History above Hospitalization History natural 05/29/19 74 Hospitalization History natural 7 [employer] Other 02-06-2013 History general Narrative - Reported* Type Description Date Medical History left shoulder & elbow problems Medical History 08/11/12 Cervical spine x-ray [facility] Medical History 10/26/14 refused colonoscopy Medical History [...] natural 05/29/19 74 Hospitalization History natural 7 [employer] Other evaluation + Plan note No data available for this section [facility] [place] Evaluation noteNo InformationN[facility] Other Evaluation noteNo assessment information available [facility] Work Phone: Hospital Discharge instructions No data available for this section General Surgery [facility] Progress note No data available for this section [facility] [place] Summary Purpose Family History No Family History Records Found Relationship Condition Age at Onset Recorded Date/T faisal father Unknown Heart disease Unknown Asthma Unknown grandparent Diabetes mellitus Unknown grandparent Malignant neoplasm of stomach Unknown Malignant neoplasm Unknown mother History of stroke Unknown Unknown Advance Directives No Advanced Directives Records Found Advance Directive Response Recorded Date/ Time Advance [...] [facility] Referred Provider Beth Blanton Referred Address ,[place], [place],[address] Referred Provider Specialty Ear, Nose an d Throat Referral Priority Routine General Notes Eva Weaver 05/05/2023 10:59:36 AM > referral faxed thru [facility] with visit note and insurance card. pt understands she will be contacted to schedule this appt. Additional Source Comments INFORMATION SOURCE (unrecogn ized section and content) DATE CREATED AUTHOR 04/07/2019 [facility] DATE CREATED AUTHOR AUTHOR'S ORGANIZ ATION 03/01/2022 [facility] DATE CREATED AUTHOR AUTHOR'S ORGANIZ ATION 12/12/2022 [facility] DATE CREATED AUTHOR AUTHOR'S ORGANIZ ATION 03/22/2024 [facility] REASON FOR VISIT (unrecogniz [...] Status: Active Member Role Status Dates Casandra Girvin , DO Primary Care Provide r, Attending Provider Active Start: December 04, 2023 Team Status: Active Member Role Status Cayden Casandra Chopra DO Primary Care Provider Active S tart: January 25, 2024 Sebastian Bell MD Attending Provider Active St art: January 25, 2024 Team Status: Active Member Role Status Cayden Casandra Chopra DO Primary Care Provider Active S tart: February 10, 2024 Sebastian Bell MD Attending Provider Active St art: February 10, 2024 Team Status: Inactive Member Role Status Cayden Casandra Chopra DO Primary Care Provide r, Attending Provider Active Start: February 16, 2024 End: February 16, 2024 Team Status: Inactive Member Role Status Cayden Casandra Chopra DO Attending Provider Active Star t: [...] Team Status: Inactive Member Role Status Cayden Samuel DO Primary Care Provider Active PITO Musa Attending Provider Active Team Status: Inactive Member Role Status Cayden Casandra Chopra DO Attending Provider Active Star t: February 16, 2024 End: February 16, 2024 Goals (unrecognized section and content) Goals [...] BE BASED ON THE PRIMARY CLINICAL RECORDS. [facility] [email or web address] [facility]. provides no warranty or guarantee of the accuracy or completeness of information in this document.
[2024-03-29 11:56] LABS: HCG Qualitative Urine* NEGATIVE (NEGATIVE); Internal Control Within Normal Limits
[2024-03-29 12:10] LABS: Basophils Absolute Auto 0.1 10^3/uL (0.0-0.1); Basophils Percent Auto 0.7 % (0.2-2.0); Eosinophils Absolute Auto 0.1 10^3/uL (0.0-0.7); Eosinophils Percent Auto 0.6 % (0.9-7.0); Hematocrit 43.2 % (36.0-48.0); Hemoglobin 14.1 g/dL (12.0-16.0); Immature Granulocytes Abs Auto 0.05 10^3/uL (0.00-0.03); Immature Granulocytes Pct Auto 0.3 % (0.0-0.5); Lymphocytes Absolute Auto 1.2 10^3/uL (1.2-3.8); Lymphocytes Percent Auto 7.8 % (20.5-60.0); Mean Corpuscular HGB Conc 32.6 g/dL (29.9-35.2); Mean Corpuscular Hemoglobin 31.3 pg (26.7-34.0); Mean Corpuscular Volume 95.8 fL (81.0-99.0); Mean Platelet Volume 9.3 fL (9.5-13.5); Monocytes Absolute Auto 1.1 10^3/uL (0.3-0.8); Monocytes Percent Auto 7.1 % (1.7-12.0); Neutrophils Absolute Auto 12.3 10^3/uL (1.4-6.5); Neutrophils Percent Auto 83.5 % (43.0-75.0); Platelet Count 222 10^3/uL (150-450); Red Blood Count 4.51 10^6/uL (4.20-5.40); Red Cell Distribution Width 13.8 % (11.0-15.0); White Blood Count 14.8 10^3/uL (4.0-11.0)
[2024-03-29 12:23] LABS: Alanine Aminotransferase 41 U/L (14-59); Albumin Globulin Ratio 1.3; Albumin Level 4.2 g/dL (3.4-5.0); Alkaline Phosphatase 44 U/L (46-116); Anion Gap 11.2; Aspartate Amino Transferase 36 U/L (15-37); BUN Creatinine Ratio 17.6; Bilirubin Total 0.4 mg/dL (0.2-1.0); Calcium 9.3 mg/dL (8.5-10.1); Chloride 98 mmol/L (98-107); Estimated GFR (African America >60 (>=60); Estimated GFR (Non-African Ame >60 (>=60); Globulin 3.3 g/dL; Glucose 77 mg/dL (74-106); Potassium 4.2 mmol/L (3.5-5.1); Sodium 133 mmol/L (136-145); Total Protein 7.5 g/dL (6.4-8.2)
[2024-03-29] MEDS: 0.9 % SODIUM CHLORIDE 1,000 ML 500 ML IV (13:07)
[2024-03-29] MEDS: FAMOTIDINE/PF 20 MG/2 ML VIAL IV (13:08)
[2024-03-29 13:57] LABS: Bilirubin Urine MODERATE (NEGATIVE); Blood Urine TRACE-I (NEGATIVE); Clarity Urine SL CLOUDY (CLEAR); Color Urine YELLOW (YELLOW); Glucose Urine UA NEGATIVE (NEGATIVE); Ketones Urine NEGATIVE (NEGATIVE); Leukocyte Esterase Urine LARGE (NEGATIVE); Nitrite Urine NEGATIVE (NEGATIVE); Protein Urine NEGATIVE (NEG/TRACE); Urobilinogen Urine 0.2 EU/dL (0.2-1.0)
[2024-03-29 13:58] LABS: Urine Microscopic Indicated YES
[2024-03-29 14:11] LABS: Bacteria Urine SMALL #/HPF (NONE SEEN); Crystals Seen? None Seen #/HPF (None Seen); Mucus Urine TRACE (NONE SEEN); Squamous Epithelial Cell Urine MODERATE #/LPF (NONE/RARE); WBC Urine 75-100 #/HPF (NONE SEEN)
[2024-03-29 14:12] LABS: Cast Seen? NONE SEEN #/LPF (NONE SEEN); Urine Culture Indicated YES
--- NOTE | 2024-03-29 14:21 | ED_ITS ---
HPI HPI - General Adult General Chief complaint: Weakness Stated complaint: WEAK, ABDOMINAL PAIN, NAUSEA Time Seen by Provider: 03/29/24 12:37 Source: patient Mode of arrival: walk-in Limitations: no limitations History of Present Illness HPI narrative: The patient is coming to the ER with a concern of being generally weak and tired and having no appetite, she mentioned that she is feeling this way since December. The patient mentioned that she have no fever chills, she also mentioned no cough and she mentioned also some time having epigastric pain although right now she does not have any pain Patient was recently diagnosed with urine infection treated for 3 days with antibiotic and she was feeling better but again she started feeling worse over the last few days She is denying any specific symptoms of burning with urination or frequency Related Data Home Medications ?Medication ?Instructions ?Recorded ?Confirmed albuterol sulfate 90 mcg/actuation 2 puff inhalation Q4H PRN 03/29/24 03/29/24 aerosol inhaler shortness of breath or wheezing atorvastatin 10 mg tablet 10 mg PO DAILY 03/29/24 03/29/24 azathioprine 50 mg tablet (Imuran) 50 mg PO DAILY 03/29/24 03/29/24 cyanocobalamin (vitamin B-12) 1,000 mcg PO .QOD 03/29/24 03/29/24 1,000 mcg tablet etodolac 500 mg tablet 500 mg PO Q12H 03/29/24 03/29/24 fluticasone fur. 100 mcg-umeclid 1 inh inhalation DAILY 03/29/24 03/29/24 62.5 mcg-vilant 25 mcg inhalat.powder (Trelegy Ellipta) furosemide 20 mg tablet 20 mg PO DAILY 03/29/24 03/29/24 hydroxychloroquine 200 mg tablet 200 mg PO Q12H 03/29/24 03/29/24 ibandronate 150 mg tablet 150 mg PO .monthly 03/29/24 03/29/24 ipratropium bromide 21 mcg (0.03 2 spray intranasal Q12H 03/29/24 03/29/24 %) nasal spray pantoprazole 40 mg tablet,delayed 40 mg PO DAILY 03/29/24 03/29/24 release potassium chloride 10 mEq 10 meq PO DAILY 03/29/24 03/29/24 tablet,extended release Previous Rx's ?Medication ?Instructions ?Recorded cephalexin 500 mg capsule 500 mg PO Q8H 7 days #21 caps 03/29/24 famotidine 20 mg tablet (Pepcid) 20 mg PO BID #20 tabs 03/29/24 Allergies Allergy/AdvReac Type Severity Reaction Status Date / Time No Known Drug Allergies Allergy Verified 03/29/24 11:29 Opioid HPI Opioid Management Most Recent Opioid Data: No Data to Display Review of Systems ROS Status of ROS 10 or more systems reviewed and unremark able except as noted in history and below PFSH PFSH Social History Little interest or pleasure in doing things: not at all Feeling down, depressed, or hopeless: not at all Exam Narrative Exam Narrative: Nurses notes and vital signs reviewed and patient is not hypoxic. General: Well-appearing and in no apparent distress. Skin: Warm, dry, no pallor noted. No rash. Head: Normocephalic, atraumatic. Neck: Supple, non-tender. Eye: Pupils are equal, round and EOMI. No scleral icterus. Ears, Nose, Mouth, and Throat: TM are clear, no nasal mucosal hypertrophy. Oral mucosa is moist, no posterior oropharynx erythema, uvula is mid-line Cardiovascular: Regular Rate and Rhythm without murmur, gallop or rub. Respiratory: No accessory muscle use or respiratory distress. Lungs are clear to auscultation, no wheezing, rales or rhonchi Chest Wall: no tenderness Back: No midline thoracic or lumbar vertebral tenderness. No CVA tenderness Musculoskeletal: normal ROM, no calf or popliteal tenderness, no lower extrem ity edema/swelling GI: Abdomen is soft, non-distended. Normal bowel sounds. No masses appreciated. No tenderness to palpation. No rebound, guarding, or rigidity noted. Neurological: A&O x4. No cranial nerve dysfunction observed. No truncal ataxia. Moves all extremities. Sensation intact. Psychiatric: Cooperative and interactive. Normal mood and affect. Constitutional Vital Signs, click to edit/add: Last Vital Signs Temp 98.3 F 03/29/24 11:30 Pulse 78 03/29/24 11:30 Resp 18 03/29/24 11:30 BP 123/70 03/29/24 11:30 Pulse Ox 99 03/29/24 11:30 O2 Del Method Room Air 03/29/24 11:30 Course Vital Signs Vital signs: Vital Signs Temperature 98.3 F 03/29/24 11:30 Pulse Rate 78 03/29/24 11:30 Respiratory Rate 18 03/29/24 11:30 Blood Pressure 123/70 03/29/24 11:30 Pulse Oximetry 99 03/29/24 11:30 Oxygen Delivery Method Room Air 03/29/24 11:30 Temperature 98.3 F 03/29/24 11:30 Pulse Rate 78 03/29/24 11:30 Respiratory Rate 18 03/29/24 11:30 Blood Pressure 123/70 03/29/24 11:30 Pulse Oximetry 99 03/29/24 11:30 Oxygen Delivery Method Room Air 03/29/24 11:30 Medical Decision Making MDM Narrative Medical decision making narrative: The patient presentation was nonspecific Urinalysis in the ER did show urine infection signs and her urine will be sent for culture she will be treated with Keflex for the next 7 days The patient blood workup shows some leukocytosis which is mostly reactive could be from gastritis and the patient will be started on Pepcid The patient is to follow up with primary care physician in next 2-3 days or to return to the emergency department should any of the signs or symptoms worsen or new symptoms develop. The patient agrees with the following Diagnosis and Treatment plan and the patient will be discharged home. Lab Data Labs: Lab Results 03/29/24 03/29/24 Range/Units 11:39 12:02 WBC 14.8 H (4.0-11.0) 10^3/uL RBC 4.51 (4.20-5.40) 10^6/uL Hgb 14.1 (12.0-16.0) g/dL Hct 43.2 (36.0-48.0) % MCV 95.8 (81.0-99.0) fL MCH 31.3 (26.7-34.0) pg MCHC 32.6 (29.9-35.2) g/dL RDW 13.8 (11.0-15.0) % Plt Count 222 (150-450) 10^3/uL MPV 9.3 L (9.5-13.5) fL Neut % (Auto) 83.5 H (43.0-75.0) % Lymph % (Auto) 7.8 L (20.5-60.0) % [place] % (Auto) 7.1 (1.7-12.0) % Eos % (Auto) 0.6 L (0.9-7.0) % Baso % (Auto) 0.7 (0.2-2.0) % Neut # (Auto) 12.3 H (1.4-6.5) 10^3/uL Lymph # (Auto) 1.2 (1.2-3.8) 10^3/uL [place] # (Auto) 1.1 H (0.3-0.8) 10^3/uL Eos # (Auto) 0.1 (0.0-0.7) 10^3/uL Baso # (Auto) 0.1 (0.0-0.1) 10^3/uL Abs Immat Gran (auto) 0.05 H (0.00-0.03) 10^3/uL Imm/Tot Granulo (auto) 0.3 (0.0-0.5) % Sodium 133 L (136-145) mmol/L Potassium 4.2 (3.5-5.1) mmol/L Chloride 98 (98-107) mmol/L Carbon Dioxide 28.0 (21.0-32.0) mmol/L Anion Gap 11.2 BUN 15.0 (7.0-18.0) mg/dL Creatinine 0.85 (0.55-1.02) mg/dL Est GFR ( Amer) >60 (>=60) Est GFR (Non-Af Amer) >60 (>=60) BUN/Creatinine Ratio 17.6 Glucose 77 (74-106) mg/dL Calcium 9.3 (8.5-10.1) mg/dL Total Bilirubin 0.4 (0.2-1.0) mg/dL AST 36 (15-37) U/L ALT 41 (14-59) U/L Alkaline Phosphatase 44 L (46-116) U/L Total Protein 7.5 (6.4-8.2) g/dL Albumin 4.2 (3.4-5.0) g/dL Globulin 3.3 g/dL Albumin/Globulin Ratio 1.3 Urine Color Yellow (YELLOW) Urine Clarity Sl cloudy (CLEAR) Urine pH 6.0 (5.0-9.0) Ur Specific [place] 1.010 (1.005-1.025) Urine Protein Negative (NEG/TRACE) mg/dL Urine Glucose (UA) Negative (NEGATIVE) mg/dL Urine Ketones Negative (NEGATIVE) mg/dL Urine Occult Blood Trace-i (NEGATIVE) Urine Nitrite Negative (NEGATIVE) Urine Bilirubin Moderate A (NEGATIVE) Urine Urobilinogen 0.2 (0.2-1.0) EU/dL Ur Leukocyte Esterase Large A (NEGATIVE) Urine RBC 2-5 A (0-2) #/HPF Urine WBC 75-100 A (NONE SEEN) #/HPF Ur Squamous Epith Cells Moderate A (NONE/RARE) #/LPF Urine Crystals None seen (None Seen) #/HPF Urine Bacteria Small A (NONE SEEN) #/HPF Urine Casts None seen (NONE SEEN) #/LPF Urine Mucus Trace A (NONE SEEN) Ur Culture Indicated? Yes Urine HCG, Qual Negative (NEGATIVE) Discharge Plan Discharge Chief Complaint: Weakness Clinical Impression: Acute UTI, Gastroesophageal reflux disease Patient Disposition: Home, Self-Care Time of Disposition Decision: 14:28 Condition: Good Prescriptions / Home Meds: New famotidine [Pepcid] 20 mg tablet 20 mg PO BID Qty: 20 0RF cephalexin 500 mg capsule 500 mg PO Q8H 7 Days Qty: 21 0RF No Action azathioprine [Imuran] 50 mg tablet 50 mg PO DAILY ibandronate 150 mg tablet 150 mg PO .monthly hydroxychloroquine 200 mg tablet 200 mg PO Q12H etodolac 500 mg tablet 500 mg PO Q12H furosemide 20 mg tablet 20 mg PO DAILY potassium chloride 10 mEq tablet extended release 10 meq PO DAILY ipratropium bromide 21 mcg (0.03 %) spray,non-aerosol 2 spray INTRANASAL Q12H Trelegy Ellipta 100-62.5-25 mcg blister with device 1 inh inhalation DAILY atorvastatin 10 mg tablet 10 mg PO DAILY albuterol sulfate 90 mcg/actuation HFA aerosol inhaler 2 puff INHALATION Q4H PRN (Reason: shortness of breath or wheezing) cyanocobalamin (vitamin B-12) 1,000 mcg tablet 1,000 mcg PO .QOD pantoprazole 40 mg tablet,delayed release (DR/EC) 40 mg PO DAILY Print Language: Greenlandic Instructions: Urinary Tract Infection in Women (DC), GERD (Gastroesophageal Reflux Disease) (DC) Referrals: CASANDRA CHOPRA [Primary Care Provider] - 1 week
== END 2024-03-29 14:42 | disposition home or self-care (01) ==
PROVIDERS: Emergency Provider Emergency Medicine; PCP Family Medicine
DX: N39.0 Urinary tract infection, site not specified (principal); K21.9 Gastro-esophageal reflux disease without esophagitis
CPT/HCPCS: 36415; 80053; 81001; 84703; 85025; 87086; 96374; 99284

== ENCOUNTER 2024-04-02 11:13 | Emergency (ER) | payer MEDICARE, SELFPAY ==
[2024-04-02] VITALS (11 sets, daily range): BP systolic 99–129; BP diastolic 59–79; PULSE 73–96; TEMP 36.4; O2SAT 96–98; BMI 29.8
--- NOTE | 2024-04-02 11:27 | CT_ITS ---
The [address] [address] Patient Name: GENNA GALVAN MRN: [id number] date: 1950 Sex: F Assigned Patient Location: ER Current Patient Location: ER Accession/Order Number: [id number] Exam Date: 04/02/2024 11:42 Report Date: 04/02/2024 12:51 At the request of: STEF MICHEL Procedure: CT abdomen pelvis wo con EXAM: CT abdomen pelvis wo con HISTORY: abd pain epigastric COMPARISON: CT abdomen 02/19/2022. CT chest including the upper abdomen 12/04/2023. TECHNIQUE: CT abdomen pelvis without IV contrast. Axial scans with reformatted coronal and sagittal images. Individualized radiation dose reduction used for this exam. FINDINGS: Lower chest: All fibrosis lung bases unchanged from chest CT 12/04/2023. No acute abnormality or new finding. ABDOMEN: Homogeneous liver without focal lesion. Distended fluid-filled gallbladder without calcified stone. No surrounding fluid or inflammation. No biliary dilatation noted. Adrenal glands, pancreas, spleen unremarkable. No ascites or free fluid. No adenopathy. Normal size aorta with small amount of plaque. Normal-appearing kidneys without renal or ureteral calculus or hydronephrosis. Distended stomach with large amount of fluid. Fluid noted within the distal small bowel cecum and ascending colon.. No distention of the ascending transverse descending or sigmoid colon. Distended rectum with gas. No pneumatosis or pneumoperitoneum. Pelvis: Small amount of fluid in the bladder. No mass or adenopathy or free fluid. Distended rectum with large amount of gas. MUSCULOSKELETAL: Mild compression deformity superior endplate L1 appears chronic. No suspicious bone lesion or new abnormality. Small ventral hernia at the level of the left lobe liver unchanged. Contains fat, no bowel. Defect approximately 1 cm. No stranding or inflammation seen in this area. CT/CT abdomen pelvis wo con IMPRESSION: 1. Distended stomach with large amount of fluid. Prominent fluid in the distal small bowel and ascending colon. Distended rectum. No evidence of ileus or obstruction. No pneumatosis or pneumoperitoneum. 2. Distended fluid-filled gallbladder without calcified stone or surrounding inflammation. 3. Small ventral epigastric hernia contains fat unchanged. Electronically authenticated by: MAISHA TRACY Date: 04/02/2024 12:51
--- NOTE | 2024-04-02 11:27 | ECG_ITS ---
The 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
[2024-04-02 11:40] LABS: Basophils Absolute Auto 0.1 10^3/uL (0.0-0.1); Basophils Percent Auto 0.8 % (0.2-2.0); Eosinophils Absolute Auto 0.1 10^3/uL (0.0-0.7); Eosinophils Percent Auto 0.6 % (0.9-7.0); Hematocrit 42.7 % (36.0-48.0); Hemoglobin 14.4 g/dL (12.0-16.0); Immature Granulocytes Abs Auto 0.06 10^3/uL (0.00-0.03); Immature Granulocytes Pct Auto 0.4 % (0.0-0.5); Lymphocytes Absolute Auto 1.1 10^3/uL (1.2-3.8); Lymphocytes Percent Auto 7.1 % (20.5-60.0); Mean Corpuscular HGB Conc 33.7 g/dL (29.9-35.2); Mean Corpuscular Hemoglobin 31.5 pg (26.7-34.0); Mean Corpuscular Volume 93.4 fL (81.0-99.0); Mean Platelet Volume 9.4 fL (9.5-13.5); Monocytes Absolute Auto 1.1 10^3/uL (0.3-0.8); Monocytes Percent Auto 6.9 % (1.7-12.0); Neutrophils Absolute Auto 13.4 10^3/uL (1.4-6.5); Neutrophils Percent Auto 84.2 % (43.0-75.0); Platelet Count 241 10^3/uL (150-450); Red Blood Count 4.57 10^6/uL (4.20-5.40); Red Cell Distribution Width 13.7 % (11.0-15.0); White Blood Count 15.8 10^3/uL (4.0-11.0)
--- OUTSIDE RECORDS SUMMARY | 2024-04-02 11:41 | XMS_ITS | CCD ---
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 Repository (3 sources) buPROPion; Translations: [bupropion] Drug Allergy 4 made anxiety worse was prescribed by Dr. Venegas [facility] (1 source) traMADol Drug Allergy 4 [facility] Repository Medications Current Medications Medication Drug Class(es) Dates Sig (Normalized) Sig (Original) 8 hr acetaminophen 650 mg extended release oral tablet (18 sources) Start: 11-03-2023 Acetaminophen (Tylenol Arthritis Pain) 650 mg tablet extended release Active 1300 MG PO Every 8 hours November 03, 2023 12:00am take 2 tablets by [facility] every eight hours as needed Tylenol 8 Hour Arthritis Pain 650 MG 2 tablets as needed Orally every 8 hrs Active [id number] 200 actuat albuterol 0.09 mg/actuat metered dose [...] Butler Start: 09-19-2019 take 1 capsule by [facility] every twenty-four hours Colace 100 MG 1 capsule Orally Once a day prn Sep, Not-Taking etodolac 400 mg oral tablet (20 sources) Nonsteroidal Anti-inflammatory Drug Start: 11-04-2023 take 400 mg by mouth twice daily Etodolac Active 400 MG PO Twice daily November 04, 2023 12:00am Start: 06-20-2019 Etodolac 400 M G 1 tablet Orally bid - Dr. Bell Jun, Active Pdffsucnmyo-Ezhonpmvd-Hcrpex er (3 sources) Anticholinergic, Corticosteroid, beta2-Adrenergic Agonist Start: 02-23-2024 Hhrhndmluef-Ylthsmbfw-Uafzdo er (Trelegy Ellipta) 100-62.5-25 mcg blister with device Active 1 INH INHALATION Daily February 23, 2024 12:00am Start: 11-03-2023 Fluticasone-Um eclidin-Vilanter (Trelegy Ellipta) 100-62.5-25 mcg blister with device Active 1 INH INHALATION Daily November 03, 2023 12:00am folic acid 0.4 mg / vitamin b12 0.5 mg oral tablet (1 source) Vitamin B12 Start: 02-23-2024 take 1 tablet by mouth once daily Vitamin C75-Mdbfh Acid Active 1 TAB PO Daily February [...] sources) Anticholinergic Start: 11-03-2023 End: 11-04-2023 Ipratropium [place] Active 2 SPRAY INTRANASAL Twice daily November 04, 2023 9:04am Start: 01-30-2022 ipratropium na jazmine 0.03% spray 2 spray(s), Nasal, BID, Refill(s) 0 Start Date: 01/30/22 Status: Ordered take 2 spray(s) nasa l route twice daily Ipratropium [place] 0.03 % 2 sprays in each nostril [...] Start: 01-30-2022 take 1 capsule by [facility] once daily potassium chloride 10 mEq Cap-ER 10 mEq = 1 cap(s), Oral, Daily, Refills(s) 0 Start Date: 01/30/22 Status: Ordered take 1 tablet by [facility] once daily at mealtime Potassium Chloride [...] 2 Chronic Other aftercare (5 sources) Other long-term (current) drug therapy; Translations: [Other lobsterman (current) drug therapy Z79.899] Onset: 1 Resolved: 2 Episodic Other aftercare (2 sources) Patient encounter status; Translations: [Other lobsterman (current) drug therapy] 11-04-2023 Episodic Other bone [...] LT 2Von 02-23-2024 XR knee LT 2V [facility] [address] [place] [address] XRay Report Signed Patient: Genna Herrera MR#: [id number] 52 : 1950 Acct:[id number] Age/Sex: 73 / F ADM Date: 02/23/24 Loc: [facility] Room: Type: [facility] Attending Dr: Domingo George DO Copies to: Domingo George DO Ordering Provider: Domingo George DO Date of Service: 02/23/24 XR/XR knee RT 4V*: M25.561 - Pain in right knee ([id number]) XR/XR knee LT 2V: needs weightbearing XR [...] David Corley M.D.02/23/2024 10:01 AM Dictation Location: [place] [address] Transcribed By: [facility] 02/23/24 1001 Dictated By: David Corley II, MD 02/23/24 0959 Signed By: 02/23/24 1001 Normal [facility] Urine Cultureon 02-16-2024 Bacteria identified Cx Nom (U) 20,000 colonies/ml mixed bacterial skin contaminants 2 Days PERFORMED BY: [place] [address] PATHOLOGIST SCRAP STRIPPER HAND ROSLYN TALLEY M.D. Normal [facility] Comment on above: Performed By: #### C UU #### [address] Urine culture routineOrdered By: Casandra Chopra on 02-16-2024 Bacteria identified Cx Nom (U) 2 Days [facility] Basophils Auto (Bld) [#/Vol] on 02-10-2024 Basophils (Bld) [#/Vol] 0.1 10 3/uL 0.0-0.1 [facility] Basophils/100 WBC Auto (Bld) on 02-10-2024 Basophils/100 WBC (Bld) 1.6 % 0.2-2.0 [facility] Eosinophils/100 WBC Auto (Bl d)on 02-10-2024 Eosinophils/100 WBC (Bld) 1.8 % 0.9-7.0 [facility] Erythrocyte distribution wid th Auto (RBC) [Ratio]on 02-10-2024 Erythrocyte distribution width (RBC) [Ratio] 13.2 % 11.0-15.0 [facility] Estimated glomerular filtrat ion rate (GFR) non- Americanon 02-10-2024 GFR/1.73 sq M.predicted among non-blacks MDRD (S/P/Bld) [Vol rate/Area] mL/min/{1.73_m2} >=60 [facility] Fine granular cast count in urine sediment by microscopy (number/low power field )on 02-10-2024 Fine Granular Casts LM.LPF (Urine sed) [#/Area] RARE [facility] Globulin Calc (S) [Mass/Vol] on 02-10-2024 Globulin (S) [Mass/Vol] 3.1 g/dL [facility] Hematocrit Auto (Bld) [Volum e fraction]on 02-10-2024 Hematocrit (Bld) [Volume fraction] 38.7 % 36.0-48.0 [facility] Hemoglobin [Mass/volume] in Bloodon 02-10-2024 Hemoglobin (Bld) [Mass/Vol] 12.7 g/dL 12.0-16.0 [facility] Laboratory - Chemistry and C hemistry - challengeon 02-10-2024 Albumin [Mass/Vol] 3.8 g/dL 3.4-5.0 [facility] ALP [Catalytic activity/Vol] 42 U/L Low 46-116 [facility] ALT [Catalytic activity/Vol] 22 U/L 14-59 [facility] AST [Catalytic activity/Vol] 21 U/L 15-37 [facility] Bilirubin [Mass/Vol] 0.5 mg/dL 0.2-1.0 [facility] Calcium [Mass/Vol] 9.0 mg/dL 8.5-10.1 [facility] Chloride [Moles/Vol] 99 mmol/L 98-107 [facility] CO2 [Moles/Vol] 24.9 mmol/L 21.0-32.0 [facility] Creatinine [Mass/Vol] 0.80 mg/dL 0.55-1.02 [facility] GFR/1.73 sq M.predicted MDRD (S/P/Bld) [Vol rate/Area] mL/min/{1.73_m2} >=60 [facility] Glucose [Mass/Vol] 85 mg/dL 74-106 [facility] Potassium [Moles/Vol] 4.2 mmol/L 3.5-5.1 [facility] Protein [Mass/Vol] 6.9 g/dL 6.4-8.2 [facility] Sodium [Moles/Vol] 136 mmol/L 136-145 [facility] Urea nitrogen [Mass/Vol] 15.0 mg/dL 7.0-18.0 [facility] Urea nitrogen/Creatinine [Mass ratio] 18.8 mg/mg [facility] Bilirubin Ql (U) MODERATE Abnormal NEGATIVE [facility] Glucose (U) [Mass/Vol] Negative NEGATIVE [facility] Ketones Ql (U) Negative NEGATIVE [facility] pH (U) 7.0 [pH] 5.0-9.0 [facility] Specific gravity (U) [Rel density] 1.010 1.005-1.025 [facility] Urobilinogen Qn (U) 0.2 {Paul'U}/dL 0.2-1.0 [facility] Laboratory - Hematology and Cell countson 02-10-2024 ESR (Bld) [Velocity] 73 mm/h High <=30 [facility] Immature granulocytes/100 WBC (Bld) 0.2 % 0.0-0.5 [facility] Laboratory - Specimen inform ationon 02-10-2024 Appearance (U) CLEAR CLEAR [facility] Color (U) LT. YELLOW YELLOW [facility] Laboratory - Urinalysison Leukocyte esterase Test strip Ql (U) MODERATE Abnormal NEGATIVE [facility] Mucus Ql (Urine sed) TRACE Abnormal NONE SEEN [facility] Nitrite Ql (U) Negative NEGATIVE [facility] Protein Ql (U) Negative NEG/TRACE [facility] Leukocytes [#/volume] correc sandip for nucleated erythrocytes in Blood by Automated counon 02-10-2024 WBC corrected for nucl RBC Auto (Bld) [#/Vol] 5.7 10 3/uL 4.0-11.0 [facility] Lymphocytes Auto (Bld) [#/Vo l]on 02-10-2024 Lymphocytes (Bld) [#/Vol] 1.0 10 3/uL Low 1.2-3.8 [facility] Lymphocytes/100 WBC Auto (Bl d)on 02-10-2024 Lymphocytes/100 WBC (Bld) 17.1 % Low 20.5-60.0 [facility] MCH Auto (RBC) [Entitic mass ]on 02-10-2024 MCH (RBC) [Entitic mass] 31.1 pg 26.7-34.0 [facility] MCHC Auto (RBC) [Mass/Vol]on 02-10-2024 MCHC (RBC) [Mass/Vol] 32.8 g/dL 29.9-35.2 [facility] MCV Auto (RBC) [Entitic vol] on 02-10-2024 MCV (RBC) [Entitic vol] 94.6 fL 81.0-99.0 [facility] Monocytes Auto (Bld) [#/Vol] on 02-10-2024 Monocytes (Bld) [#/Vol] 0.5 10 3/uL 0.3-0.8 [facility] Monocytes/100 WBC Auto (Bld) on 02-10-2024 Monocytes/100 WBC (Bld) 8.3 % 1.7-12.0 [facility] Neutrophils Auto (Bld) [#/Vo l]on 02-10-2024 Neutrophils (Bld) [#/Vol] 4.0 10 3/uL 1.4-6.5 [facility] Neutrophils/100 WBC Auto (Bl d)on 02-10-2024 Neutrophils/100 WBC (Bld) 71.0 % 43.0-75.0 [facility] No Panel Informationon 02-09 Eosinophils # (Auto) 0.1 10 3/uL 0.0-0.7 [facility] Immature Granulocyte # (Auto) 0.01 10 3/uL 0.00-0.03 [facility] Total Complement (CH50) >60 U/mL >41 [facility] Comment on above: Age Male Female [...] determine out of range values.Performed at: - [facility] [id number] Director: Santiago Madrid PhD, Phone: [phone] Urine Bacteria SMALL #/HPF Abnormal NONE SEEN [facility] Urine Occult Blood Negative NEGATIVE [facility] Urine Other Casts SEEN #/LPF Abnormal NONE SEEN [facility] Urine Other Crystals None Seen #/HPF None Seen [facility] Urine RBC 0-2 #/HPF 0-2 [facility] Urine Renal Epithelial Cells FEW #/LPF Abnormal NONE SEEN [facility] Urine Squamous Epithelial Cells MODERATE #/LPF Abnormal NONE/RARE [facility] Urine WBC 10-20 #/HPF Abnormal NONE SEEN [facility] Platelet mean volume Auto (B ld) [Entitic vol]on 02-10-2024 Platelet mean volume (Bld) [Entitic vol] 9.1 fL Low 9.5-13.5 [facility] Platelets Auto (Bld) [#/Vol] on 02-10-2024 Platelets (Bld) [#/Vol] 195 10 3/uL 150-450 [facility] RBC Auto (Bld) [#/Vol]on RBC (Bld) [#/Vol] 4.09 10 6/uL Low 4.20-5.40 [facility] Serum or plasma albumin/glob ulin mass ratioon 02-10-2024 Albumin/Globulin [Mass ratio] 1.2 {ratio} [facility] Serum or plasma anion gap de terminationon 02-10-2024 Anion gap [Moles/Vol] 16.3 mmol/L [facility] Serum or plasma complement C 3 measurement (mass/volume)on 02-10-2024 Complement C3 [Mass/Vol] 129 mg/dL 82-167 [facility] Serum or plasma complement C 4 measurement (mass/volume)on 02-10-2024 Complement C4 [Mass/Vol] 22 mg/dL 12-38 [facility] Comment on above: Performed at: [address] [id number] Director: Santiago Madrid PhD, Phone: [phone] Basophils Auto (Bld) [#/Vol] on 01-25-2024 Basophils (Bld) [#/Vol] 0.1 10 3/uL 0.0-0.1 [facility] Basophils/100 WBC Auto (Bld) on 01-25-2024 Basophils/100 WBC (Bld) 1.5 % 0.2-2.0 [facility] Eosinophils/100 WBC Auto (Bl d)on 01-25-2024 Eosinophils/100 WBC (Bld) 1.7 % 0.9-7.0 [facility] Erythrocyte distribution wid th Auto (RBC) [Ratio]on 01-25-2024 Erythrocyte distribution width (RBC) [Ratio] 13.4 % 11.0-15.0 [facility] Estimated glomerular filtrat ion rate (GFR) non- Americanon 01-25-2024 GFR/1.73 sq M.predicted among non-blacks MDRD (S/P/Bld) [Vol rate/Area] mL/min/{1.73_m2} >=60 [facility] Globulin Calc (S) [Mass/Vol] on 01-25-2024 Globulin (S) [Mass/Vol] 3.5 g/dL [facility] Hematocrit Auto (Bld) [Volum e fraction]on 01-25-2024 Hematocrit (Bld) [Volume fraction] 40.6 % 36.0-48.0 [facility] Hemoglobin [Mass/volume] in Bloodon 01-25-2024 Hemoglobin (Bld) [Mass/Vol] 12.9 g/dL 12.0-16.0 [facility] Laboratory - Chemistry and C hemistry - challengeon 01-25-2024 Albumin [Mass/Vol] 3.8 g/dL 3.4-5.0 [facility] ALP [Catalytic activity/Vol] 43 U/L Low 46-116 [facility] ALT [Catalytic activity/Vol] 24 U/L 14-59 [facility] AST [Catalytic activity/Vol] 20 U/L 15-37 [facility] Bilirubin [Mass/Vol] 0.5 mg/dL 0.2-1.0 [facility] Calcium [Mass/Vol] 9.0 mg/dL 8.5-10.1 [facility] Chloride [Moles/Vol] 103 mmol/L 98-107 [facility] CO2 [Moles/Vol] 28.8 mmol/L 21.0-32.0 [facility] Creatinine [Mass/Vol] 0.78 mg/dL 0.55-1.02 [facility] GFR/1.73 sq M.predicted MDRD (S/P/Bld) [Vol rate/Area] mL/min/{1.73_m2} >=60 [facility] Glucose [Mass/Vol] 91 mg/dL 74-106 [facility] Potassium [Moles/Vol] 4.4 mmol/L 3.5-5.1 [facility] Protein [Mass/Vol] 7.3 g/dL 6.4-8.2 [facility] Sodium [Moles/Vol] 139 mmol/L 136-145 [facility] Urea nitrogen [Mass/Vol] 17.0 mg/dL 7.0-18.0 [facility] Urea nitrogen/Creatinine [Mass ratio] 21.8 mg/mg [facility] Bilirubin Ql (U) MODERATE Abnormal NEGATIVE [facility] Glucose (U) [Mass/Vol] Negative NEGATIVE [facility] Ketones Ql (U) Negative NEGATIVE [facility] pH (U) 7.0 [pH] 5.0-9.0 [facility] Specific gravity (U) [Rel density] 1.015 1.005-1.025 [facility] Urobilinogen Qn (U) 0.2 {Paul'U}/dL 0.2-1.0 [facility] Laboratory - Hematology and Cell countson 01-25-2024 ESR (Bld) [Velocity] 72 mm/h High <=30 [facility] Immature granulocytes/100 WBC (Bld) 0.3 % 0.0-0.5 [facility] Laboratory - Specimen inform ationon 01-25-2024 Appearance (U) CLOUDY Abnormal CLEAR [facility] Color (U) LT. YELLOW YELLOW [facility] Laboratory - Urinalysison Leukocyte esterase Test strip Ql (U) LARGE Abnormal NEGATIVE [facility] Mucus Ql (Urine sed) NONE SEEN NONE SEEN [facility] Nitrite Ql (U) Negative NEGATIVE [facility] Protein Ql (U) Negative NEG/TRACE [facility] Leukocytes [#/volume] correc sandip for nucleated erythrocytes in Blood by Automated counon 01-25-2024 WBC corrected for nucl RBC Auto (Bld) [#/Vol] 5.9 10 3/uL 4.0-11.0 [facility] Lymphocytes Auto (Bld) [#/Vo l]on 01-25-2024 Lymphocytes (Bld) [#/Vol] 1.3 10 3/uL 1.2-3.8 [facility] Lymphocytes/100 WBC Auto (Bl d)on 01-25-2024 Lymphocytes/100 WBC (Bld) 21.3 % 20.5-60.0 [facility] MCH Auto (RBC) [Entitic mass ]on 01-25-2024 MCH (RBC) [Entitic mass] 30.5 pg 26.7-34.0 [facility] MCHC Auto (RBC) [Mass/Vol]on 01-25-2024 MCHC (RBC) [Mass/Vol] 31.8 g/dL 29.9-35.2 [facility] MCV Auto (RBC) [Entitic vol] on 01-25-2024 MCV (RBC) [Entitic vol] 96.0 fL 81.0-99.0 [facility] Monocytes Auto (Bld) [#/Vol] on 01-25-2024 Monocytes (Bld) [#/Vol] 0.6 10 3/uL 0.3-0.8 [facility] Monocytes/100 WBC Auto (Bld) on 01-25-2024 Monocytes/100 WBC (Bld) 9.3 % 1.7-12.0 [facility] Neutrophils Auto (Bld) [#/Vo l]on 01-25-2024 Neutrophils (Bld) [#/Vol] 3.9 10 3/uL 1.4-6.5 [facility] Neutrophils/100 WBC Auto (Bl d)on 01-25-2024 Neutrophils/100 WBC (Bld) 65.9 % 43.0-75.0 [facility] No Panel Informationon 01-24 Eosinophils # (Auto) 0.1 10 3/uL 0.0-0.7 [facility] Immature Granulocyte # (Auto) 0.02 10 3/uL 0.00-0.03 [facility] Total Complement (CH50) >60 U/mL >41 [facility] Comment on above: Age Male Female [...] to determine out of range values.Performed at: [facility] [address] [id number] Director: Santiago Madrid PhD, Phone: [phone] Urine Bacteria LARGE #/HPF Abnormal NONE SEEN [facility] Urine Occult Blood Negative NEGATIVE [facility] Urine Other Casts NONE SEEN #/LPF NONE SEEN [facility] Urine Other Crystals None Seen #/HPF None Seen [facility] Urine RBC 0-2 #/HPF 0-2 [facility] Urine Squamous Epithelial Cells MANY #/LPF Abnormal NONE/RARE [facility] Urine Transitional Epithelial Cells FEW #/LPF Abnormal NONE SEEN [facility] Urine WBC 75-100 #/HPF Abnormal NONE SEEN [facility] Platelet mean volume Auto (B ld) [Entitic vol]on 01-25-2024 Platelet mean volume (Bld) [Entitic vol] 9.2 fL Low 9.5-13.5 [facility] Platelets Auto (Bld) [#/Vol] on 01-25-2024 Platelets (Bld) [#/Vol] 208 10 3/uL 150-450 [facility] RBC Auto (Bld) [#/Vol]on RBC (Bld) [#/Vol] 4.23 10 6/uL 4.20-5.40 [facility] Serum or plasma albumin/glob ulin mass ratioon 01-25-2024 Albumin/Globulin [Mass ratio] 1.1 {ratio} [facility] Serum or plasma anion gap de terminationon 01-25-2024 Anion gap [Moles/Vol] 11.6 mmol/L [facility] Serum or plasma complement C 3 measurement (mass/volume)on 01-25-2024 Complement C3 [Mass/Vol] 133 mg/dL 82-167 [facility] Serum or plasma complement C 4 measurement (mass/volume)on 01-25-2024 Complement C4 [Mass/Vol] 22 mg/dL 12-38 [facility] Comment on above: Performed at: [facility] [email or web address] [id number] Director: Santiago Madrid PhD, Phone: [phone] Basophils Auto (Bld) [#/Vol] on 12-04-2023 Basophils (Bld) [#/Vol] 0.1 10 3/uL 0.0-0.1 [facility] Basophils/100 WBC Auto (Bld) on 12-04-2023 Basophils/100 WBC (Bld) 1.7 % 0.2-2.0 [facility] Eosinophils/100 WBC Auto (Bl d)on 12-04-2023 Eosinophils/100 WBC (Bld) 2.0 % 0.9-7.0 [facility] Erythrocyte distribution wid th Auto (RBC) [Ratio]on 12-04-2023 Erythrocyte distribution width (RBC) [Ratio] 13.3 % 11.0-15.0 [facility] Hematocrit Auto (Bld) [Volum e fraction]on 12-04-2023 Hematocrit (Bld) [Volume fraction] 37.8 % 36.0-48.0 [facility] Hemoglobin [Mass/volume] in Bloodon 12-04-2023 Hemoglobin (Bld) [Mass/Vol] 12.0 g/dL 12.0-16.0 [facility] Laboratory - Hematology and Cell countson 12-04-2023 Immature granulocytes/100 WBC (Bld) 0.2 % 0.0-0.5 [facility] Leukocytes [#/volume] correc sandip for nucleated erythrocytes in Blood by Automated counon 12-04-2023 WBC corrected for nucl RBC Auto (Bld) [#/Vol] 6.0 10 3/uL 4.0-11.0 [facility] Lymphocytes Auto (Bld) [#/Vo l]on 12-04-2023 Lymphocytes (Bld) [#/Vol] 1.1 10 3/uL Low 1.2-3.8 [facility] Lymphocytes/100 WBC Auto (Bl d)on 12-04-2023 Lymphocytes/100 WBC (Bld) 18.2 % Low 20.5-60.0 [facility] MCH Auto (RBC) [Entitic mass ]on 12-04-2023 MCH (RBC) [Entitic mass] 30.5 pg 26.7-34.0 [facility] MCHC Auto (RBC) [Mass/Vol]on 12-04-2023 MCHC (RBC) [Mass/Vol] 31.7 g/dL 29.9-35.2 [facility] MCV Auto (RBC) [Entitic vol] on 12-04-2023 MCV (RBC) [Entitic vol] 95.9 fL 81.0-99.0 [facility] Monocytes Auto (Bld) [#/Vol] on 12-04-2023 Monocytes (Bld) [#/Vol] 0.6 10 3/uL 0.3-0.8 [facility] Monocytes/100 WBC Auto (Bld) on 12-04-2023 Monocytes/100 WBC (Bld) 10.3 % 1.7-12.0 [facility] Neutrophils Auto (Bld) [#/Vo l]on 12-04-2023 Neutrophils (Bld) [#/Vol] 4.1 10 3/uL 1.4-6.5 [facility] Neutrophils/100 WBC Auto (Bl d)on 12-04-2023 Neutrophils/100 WBC (Bld) 67.6 % 43.0-75.0 [facility] No Panel Informationon 12-03 Eosinophils # (Auto) 0.1 10 3/uL 0.0-0.7 [facility] Immature Granulocyte # (Auto) 0.01 10 3/uL 0.00-0.03 [facility] Platelet mean volume Auto (B ld) [Entitic vol]on 12-04-2023 Platelet mean volume (Bld) [Entitic vol] 9.2 fL Low 9.5-13.5 [facility] Platelets Auto (Bld) [#/Vol] on 12-04-2023 Platelets (Bld) [#/Vol] 193 10 3/uL 150-450 [facility] RBC Auto (Bld) [#/Vol]on RBC (Bld) [#/Vol] 3.94 10 6/uL Low 4.20-5.[address] [facility] [address] LUNG CANCER SCREENINGon 0 12-03-2022 [...] MARII TURCIOS Date: 2022-12-03 08:[address] [facility] CBC AUTO DIFFon 10-22-2022 BASO # 0.1 103/ul Normal 0.0-0.1 [facility] Comment on above: Performed By: #### C BC #### [facility] [address] [place] [address] [address] Renato Weller Basophils/100 WBC (Bld) 1.5 % Normal 0.2-2.0 [facility] Comment on above: Performed By: #### C BC #### [facility] [address] [address] [address] Renato Weller EO # 0.1 103/ul Normal 0.0-0.7 [facility] Comment on above: Performed By: #### C BC #### [facility] [address] [address] [address] Renato Weller Eosinophils/100 WBC (Bld) 1.4 % Normal 0.9-7.0 [facility] Comment on above: Performed By: #### C BC #### [facility] [address] [address] [address] Renato Weller Erythrocyte distribution width (RBC) [Ratio] 13.4 % Normal 11.0-15.0 [facility] Comment on above: Performed By: #### C BC #### [facility] [address] [address] [address] Renato Weller Hematocrit (Bld) [Volume fraction] 40.8 % Normal 36.0-48.0 [facility] Comment on above: Performed By: #### C BC #### [facility] [address] [address] [address] Renato Weller Hemoglobin (Bld) [Mass/Vol] 12.9 g/dL Normal 12.0-16.0 [facility] Comment on above: Performed By: #### C BC #### [facility] [address] [address] [address] Renato Weller IG # 0.01 10e3/ul Normal 0.00-0.[address] [facility] Comment on above: Performed By: #### C BC #### [facility] [address] [address] [address] Renato Weller IG % 0.2 % Normal 0.0-0.5 [facility] Comment on above: Performed By: #### C BC #### [facility] [address] [place] [address] Dr. Renato Weller LYMPH # 1.0 103/ul Critically low 1.2-3.8 [facility] Comment on above: Performed By: #### C BC #### [facility] [address] [place] [address] Dr. Renato Weller Lymphocytes/100 WBC (Bld) 16.2 % Critically low 20.5-60.0 [facility] Comment on above: Performed By: #### C BC #### [facility] [address] [place] [address] Dr. Renato Weller MANUAL DIFF REQ NO Normal [facility] Comment on above: Performed By: #### C BC #### [facility] [address] [place] [address] Dr. Renato Weller MCH (RBC) [Entitic mass] 30.2 pg Normal 26.7-34.0 [facility] Comment on above: Performed By: #### C BC #### [facility] [address] [place] [address] Dr. Renato Weller MCHC (RBC) [Mass/Vol] 31.6 g/dL Normal 29.9-35.2 [facility] Comment on above: Performed By: #### C BC #### [facility] [address] [place] [address] Dr. Renato Weller MCV (RBC) [Entitic vol] 95.6 fL Normal 81.0-99.0 [facility] Comment on above: Performed By: #### C BC #### [facility] [address] [place] [address] Dr. Renato Weller MONO # 0.5 103/ul Normal 0.3-0.8 [facility] Comment on above: Performed By: #### C BC #### [facility] [address] [address] [address] Renato Weller Monocytes/100 WBC (Bld) 8.2 % Normal 1.7-12.0 [facility] Comment on above: Performed By: #### C BC #### [facility] [address] [address] [address] Renato Weller NEUT # 4.3 103/ul Normal 1.4-6.5 [facility] Comment on above: Performed By: #### C BC #### [facility] [address] [address] [address] Renato Weller Neutrophils/100 WBC (Bld) 72.5 % Normal 43.0-75.0 [facility] Comment on above: Performed By: #### C BC #### [facility] [address] [place] [address] Dr. Renato Weller Platelet mean volume (Bld) [Entitic vol] 9.4 fL Critically low 9.5-13.5 [facility] Comment on above: Performed By: #### C BC #### [facility] [address] [place] [address] Dr. Rentao Weller PLT 206 103/ul Normal 150-450 [facility] Comment on above: Performed By: #### C BC #### [facility] [address] [place] [address] Dr. Renato Weller RBC 4.27 106/ul Normal 4.20-5.[address] [facility] Comment on above: Performed By: #### C BC #### [facility] [address] [place] [address] Dr. Renato Weller WBC 5.9 103/ul Normal 4.0-11.0 [facility] Comment on above: Performed By: #### C BC #### [facility] [address] [place] [address] Dr. Renato Weller LIPID PROFILEon 10-22-2022 CHOL-HDL RATIO NORM SEE BELOW Normal [facility] Comment on above: Result Comment: 3.3 - 4.4 LOW RISK 4.4 - 7.1 AVERAGE RISK 7.1 - 11.0 MODERATE RISK >11.0 HIGH RISK Performed By: #### L IPID, CMP #### [facility] [address] [address] [address] Renato Weller Cholesterol [Mass/Vol] 162 mg/dL Normal <=200 [facility] Comment on above: Performed By: #### L IPID, CMP #### [facility] [address] [address] [address] Renato Weller Cholesterol in HDL [Mass/Vol] 69 mg/dL Critically high 40-60 [facility] Comment on above: Performed By: #### L IPID, CMP #### [facility] [address] [address] [address] Renato Weller Cholesterol in LDL [Mass/Vol] 81.8 mg/dL Normal [facility] Comment on above: Performed By: #### L IPID, CMP #### [facility] [address] [place] [address] Dr. Renato Weller Cholesterol.total/C holesterol in HDL [Mass ratio] 2.3 {ratio} Normal [facility] Comment on above: Performed By: #### L IPID, CMP #### [facility] [address] [place] [address] Dr. Renato Weller HDL NORMAL > or = 60 mg/dl - LO W CARDIOVASCULAR RISK <40 mg/dl - HIGH CARDIOVASCULAR RISK Normal [facility] Comment on above: Performed By: #### L IPID, CMP #### [facility] [address] [address] [address] Renato Weller LDL CALC NORMAL SEE BELOW Normal [facility] Comment on above: Result Comment: <100 mg/dl OPTIMAL 100 - 129 mg/dl NEAR OR ABOVE OPTIMAL 130 - 159 mg/dl BORDERLINE HIGH 160 - 189 mg/dl HIGH >190 mg/dl VERY HIGH Performed By: #### L IPID, CMP #### [facility] [address] [address] [address] Renato Weller Triglyceride [Mass/Vol] 56 mg/dL Normal <=150 [facility] Comment on above: Performed By: #### L IPID, CMP #### [facility] [address] [address] [address] Renato Weller VLDL CALC 11.2 mg/dL Normal [facility] Comment on above: Performed By: #### L IPID, CMP #### [facility] [address] [place] [address] Dr. Renato Weller PROF 14(COMP METB)on 023 Albumin [Mass/Vol] 3.7 g/dL Normal 3.4-5.0 [facility] Comment on above: Performed By: #### L IPID, CMP #### [facility] [address] [place] [address] Dr. Renato Weller Albumin/Globulin [Mass ratio] 1.1 {ratio} Normal [facility] Comment on above: Performed By: #### L IPID, CMP #### [facility] [address] [place] [address] Dr. Renato Weller ALP [Catalytic activity/Vol] 36 U/L Critically low 46-116 [facility] Comment on above: Performed By: #### L IPID, CMP #### [facility] [address] [place] [address] Dr. Renato Weller ALT [Catalytic activity/Vol] 24 U/L Normal 14-59 [facility] Comment on above: Performed By: #### L IPID, CMP #### [facility] [address] [place] [address] Dr. Renato Weller Anion gap [Moles/Vol] 12.2 mmol/L Normal [facility] Comment on above: Performed By: #### L IPID, CMP #### [facility] [address] [place] [address] Dr. Renato Weller AST [Catalytic activity/Vol] 18 U/L Normal 15-37 [facility] Comment on above: Performed By: #### L IPID, CMP #### [facility] [address] [place] [address] Dr. Renato Weller Bilirubin [Mass/Vol] 0.3 mg/dL Normal 0.2-1.0 [facility] Comment on above: Performed By: #### L IPID, CMP #### [facility] [address] [address] [address] Renato Weller Calcium [Mass/Vol] 9.0 mg/dL Normal 8.5-10.1 [facility] Comment on above: Performed By: #### L IPID, CMP #### [facility] [address] [address] [address] Renato Weller Chloride [Moles/Vol] 102 mmol/L Normal 98-[address] [facility] Comment on above: Performed By: #### L IPID, CMP #### [facility] [address] [address] [address] Renato Weller CO2 [Moles/Vol] 29.1 mmol/L Normal 21.0-32.0 [facility] Comment on above: Performed By: #### L IPID, CMP #### [facility] [address] [place] [address] Dr. Renato Weller Creatinine [Mass/Vol] 0.83 mg/dL Normal 0.55-1.02 [facility] Comment on above: Performed By: #### L IPID, CMP #### [facility] [address] [place] [address] Dr. Renato Weller EGFR-AF PORTUGUESE >60 Normal >=[address] [facility] Comment on above: Performed By: #### L IPID, CMP #### [facility] [address] [place] [address] Dr. Renato Weller EGFR-NON AF PORTUGUESE >60 Normal >=[address] [facility] Comment on above: Performed By: #### L IPID, CMP #### [facility] [address] [address] [address] Renato Weller Globulin (S) [Mass/Vol] 3.5 g/dL Normal [facility] Comment on above: Performed By: #### L IPID, CMP #### [facility] [address] [address] [address] Renato Weller Glucose [Mass/Vol] 85 mg/dL Normal 74-106 [facility] Comment on above: Performed By: #### L IPID, CMP #### [facility] [address] [address] [address] Renato Weller Potassium [Moles/Vol] 4.3 mmol/L Normal 3.5-5.1 [facility] Comment on above: Performed By: #### L IPID, CMP #### [facility] [address] [place] [address] Dr. Renato Weller Protein [Mass/Vol] 7.2 g/dL Normal 6.4-8.2 [facility] Comment on above: Performed By: #### L IPID, CMP #### [facility] [address] [place] [address] Dr. Renato Weller Sodium [Moles/Vol] 139 mmol/L Normal 136-145 [facility] Comment on above: Performed By: #### L IPID, CMP #### [facility] [address] [place] [address] Dr. Renato Weller Urea nitrogen [Mass/Vol] 14.0 mg/dL Normal 7.0-18.0 [facility] Comment on above: Performed By: #### L IPID, CMP #### [facility] [address] [place] [address] Dr. Renato Weller Urea nitrogen/Creatinine [Mass ratio] 16.9 mg/mg Normal [facility] Comment on above: Performed By: #### L IPID, CMP #### [facility] [address] [place] [address] Dr. Renato Weller C3 and C4 COMPLEMENTon 08-19 Complement C3, Serum 110 mg/dL Normal 82-167 [facility] Comment on above: Performed By: #### U AMIC #### [facility] [address] [place] [address] Dr. Renato Weller Complement C4, Serum 20 mg/dL Normal 12-38 [facility] Comment on above: Performed By: #### U AMIC #### [facility] [address] [place] [address] Dr. Renato Weller COMPLEMENT TOTAL (CH50)on Complement, Total (CH50) >60 Normal >[address] [facility] Comment on above: Result Comment: Age [...] values. Performed By: #### C H50T #### [facility] [address] [place] [address] Dr. Renato Weller CBC AUTO DIFFon 08-18-2022 BASO # 0.1 103/ul Normal 0.0-0.[address] [facility] Comment on above: Performed By: #### C H50T #### [facility] [address] [place] [address] Dr. Renato Weller Basophils/100 WBC (Bld) 1.8 % Normal 0.2-2.[address] [facility] Comment on above: Performed By: #### C H50T #### [facility] [address] [place] [address] Dr. Renato Weller EO # 0.1 103/ul Normal 0.0-0.[address] [facility] Comment on above: Performed By: #### C H50T #### [facility] [address] [place] [address] Dr. Renato Weller Eosinophils/100 WBC (Bld) 1.8 % Normal 0.9-7.[address] [facility] Comment on above: Performed By: #### C H50T #### [facility] [address] [place] [address] Dr. Renato Weller Erythrocyte distribution width (RBC) [Ratio] 13.2 % Normal 11.0-15.[address] [facility] Comment on above: Performed By: #### C H50T #### [facility] [address] [place] [address] Dr. Renato Weller Hematocrit (Bld) [Volume fraction] 39.9 % Normal 36.0-48.[address] [facility] Comment on above: Performed By: #### C H50T #### [facility] [address] [place] [address] Dr. Renato Weller Hemoglobin (Bld) [Mass/Vol] 13.2 g/dL Normal 12.0-16.0 [facility] Comment on above: Performed By: #### C H50T #### [facility] [address] [place] [address] Dr. Renato Weller IG # 0.02 10e3/ul Normal 0.00-0.03 [facility] Comment on above: Performed By: #### C H50T #### [facility] [address] [place] [address] Dr. Renato Weller IG % 0.4 % Normal 0.0-0.5 [facility] Comment on above: Performed By: #### C H50T #### [facility] [address] [place] [address] Dr. Renato Weller LYMPH # 1.1 103/ul Critically low 1.2-3.8 [facility] Comment on above: Performed By: #### C H50T #### [facility] [address] [place] [address] Dr. Renato Weller Lymphocytes/100 WBC (Bld) 18.4 % Critically low 20.5-60.0 [facility] Comment on above: Performed By: #### C H50T #### [facility] [address] [place] [address] Dr. Renato Weller MANUAL DIFF REQ NO Normal [facility] Comment on above: Performed By: #### C H50T #### [facility] [address] [place] [address] Dr. Renato Weller MCH (RBC) [Entitic mass] 31.0 pg Normal 26.7-34.[address] [facility] Comment on above: Performed By: #### C H50T #### [facility] [address] [place] [address] Dr. Renato Weller MCHC (RBC) [Mass/Vol] 33.1 g/dL Normal 29.9-35.[address] [facility] Comment on above: Performed By: #### C H50T #### [facility] [address] [address] [address] Renato Weller MCV (RBC) [Entitic vol] 93.7 fL Normal 81.0-99.0 [facility] Comment on above: Performed By: #### C H50T #### [facility] [address] [place] [address] Dr. Renato Weller MONO # 0.5 103/ul Normal 0.3-0.8 [facility] Comment on above: Performed By: #### C H50T #### [facility] [address] [place] [address] Dr. Renato Weller Monocytes/100 WBC (Bld) 8.6 % Normal 1.7-12.0 [facility] Comment on above: Performed By: #### C H50T #### [facility] [address] [place] [address] Dr. Renato Weller NEUT # 3.9 103/ul Normal 1.4-6.5 [facility] Comment on above: Performed By: #### C H50T #### [facility] [address] [place] [address] Dr. Renato Weller Neutrophils/100 WBC (Bld) 69.0 % Normal 43.0-75.0 [facility] Comment on above: Performed By: #### C H50T #### [facility] [address] [place] [address] Dr. Renato Weller Platelet mean volume (Bld) [Entitic vol] 9.4 fL Critically low 9.5-13.5 [facility] Comment on above: Performed By: #### C H50T #### [facility] [address] [place] [address] Dr. Renato Weller PLT 191 103/ul Normal 150-[address] [facility] Comment on above: Performed By: #### C H50T #### [facility] [address] [place] [address] Dr. Renato Weller RBC 4.26 106/ul Normal 4.20-5.40 [facility] Comment on above: Performed By: #### C H50T #### [facility] [address] [place] [address] Dr. Renato Weller WBC 5.7 103/ul Normal 4.0-11.0 [facility] Comment on above: Performed By: #### C H50T #### [facility] [address] [place] [address] Dr. Renato Weller MAGNESIUMon 08-18-2022 Magnesium [Mass/Vol] 2.1 mg/dL Normal 1.8-2.4 [facility] Comment on above: Performed By: #### L IPID, CMP #### [facility] [address] [place] [address] Dr. Renato Weller PHOSPHORUSon 08-18-2022 Phosphate [Mass/Vol] 3.5 mg/dL Normal 2.6-4.7 [facility] Comment on above: Performed By: #### L IPID, CMP #### [facility] [address] [place] [address] Dr. Renato Weller PROF 14(COMP METB)on 023 Albumin [Mass/Vol] 3.7 g/dL Normal 3.4-5.0 [facility] Comment on above: Performed By: #### L IPID, CMP #### [facility] [address] [place] [address] Dr. Renato Weller Albumin/Globulin [Mass ratio] 1.2 {ratio} Normal [facility] Comment on above: Performed By: #### L IPID, CMP #### [facility] [address] [place] [address] Dr. Renato Weller ALP [Catalytic activity/Vol] 37 U/L Critically low 46-[address] [facility] Comment on above: Performed By: #### L IPID, CMP #### [facility] [address] [place] [address] Dr. Renato Weller ALT [Catalytic activity/Vol] 18 U/L Normal 14-[address] [facility] Comment on above: Performed By: #### L IPID, CMP #### [facility] [address] [place] [address] Dr. Renato Weller Anion gap [Moles/Vol] 13.5 mmol/L Normal [facility] Comment on above: Performed By: #### L IPID, CMP #### [facility] [address] [address] [address] Renato Weller AST [Catalytic activity/Vol] 19 U/L Normal 15-37 [facility] Comment on above: Performed By: #### L IPID, CMP #### [facility] [address] [place] [address] Dr. Renato Weller Bilirubin [Mass/Vol] 0.4 mg/dL Normal 0.2-1.0 [facility] Comment on above: Performed By: #### L IPID, CMP #### [facility] [address] [place] [address] Dr. Renato Weller Calcium [Mass/Vol] 8.7 mg/dL Normal 8.5-10.1 [facility] Comment on above: Performed By: #### L IPID, CMP #### [facility] [address] [place] [address] Dr. Renato Weller Chloride [Moles/Vol] 104 mmol/L Normal 98-107 [facility] Comment on above: Performed By: #### L IPID, CMP #### [facility] [address] [place] [address] Dr. Renato Weller CO2 [Moles/Vol] 27.8 mmol/L Normal 21.0-32.[address] [facility] Comment on above: Performed By: #### L IPID, CMP #### [facility] [address] [place] [address] Dr. Renato Weller Creatinine [Mass/Vol] 0.67 mg/dL Normal 0.55-1.02 [facility] Comment on above: Performed By: #### L IPID, CMP #### [facility] [address] [place] [address] Dr. Renato Weller EGFR-AF PORTUGUESE >60 Normal >=[address] [facility] Comment on above: Performed By: #### L IPID, CMP #### [facility] [address] [address] [address] Renato Weller EGFR-NON AF PORTUGUESE >60 Normal >=[address] [facility] Comment on above: Performed By: #### L IPID, CMP #### [facility] [address] [address] [address] Renato Weller Globulin (S) [Mass/Vol] 3.0 g/dL Normal [facility] Comment on above: Performed By: #### L IPID, CMP #### [facility] [address] [address] [address] Renato Weller Glucose [Mass/Vol] 87 mg/dL Normal 74-106 [facility] Comment on above: Performed By: #### L IPID, CMP #### [facility] [address] [place] [address] Dr. Renato Weller Potassium [Moles/Vol] 4.3 mmol/L Normal 3.5-5.[address] [facility] Comment on above: Performed By: #### L IPID, CMP #### [facility] [address] [place] [address] Dr. Renato Weller Protein [Mass/Vol] 6.7 g/dL Normal 6.4-8.2 [facility] Comment on above: Performed By: #### L IPID, CMP #### [facility] [address] [place] [address] Dr. Renato Weller Sodium [Moles/Vol] 141 mmol/L Normal 136-145 [facility] Comment on above: Performed By: #### L IPID, CMP #### [facility] [address] [place] [address] Dr. Renato Weller Urea nitrogen [Mass/Vol] 11.0 mg/dL Normal 7.0-18.[address] [facility] Comment on above: Performed By: #### L IPID, CMP #### [facility] [address] [place] [address] Dr. Renato Weller Urea nitrogen/Creatinine [Mass ratio] 16.4 mg/mg Normal [facility] Comment on above: Performed By: #### L IPID, CMP #### [facility] [address] [address] [address] Renato Weller SED RATE WESTERGRENon 2022 SED RATE 43 mm/hr Critically high <=30 [facility] Comment on above: Performed By: #### S EDR #### [facility] [address] [address] [address] Renato Weller UA RANDOM W/MICROSCOPICon BACTERIA NONE SEEN Normal NONE SEEN [facility] Comment on above: Performed By: #### U AMIC #### [facility] [address] [address] [address] Renato Weller Bilirubin Ql (U) LARGE Abnormal NEGATIVE [facility] Comment on above: Performed By: #### U AMIC #### [facility] [address] [place] [address] Dr. Renato Weller CAST NONE SEEN Normal NONE SEEN [facility] Comment on above: Performed By: #### U AMIC #### [facility] [address] [address] [address] Renato Weller Clarity (U) CLEAR Normal CLEAR [facility] Comment on above: Performed By: #### U AMIC #### [facility] [address] [place] [address] Dr. Renato Weller Color (U) LT. YELLOW Normal YELLOW [facility] Comment on above: Performed By: #### U AMIC #### [facility] [address] [place] [address] Dr. Renato Weller Crystals LM Nom (Urine sed) NONE SEEN Normal NONE SEEN [facility] Comment on above: Performed By: #### U AMIC #### [facility] [address] [place] [address] Dr. Renato Weller Epithelial cells LM Ql (Urine sed) NONE SEEN Normal NONE SEEN /RARE [facility] Comment on above: Performed By: #### U AMIC #### [facility] [address] [place] [address] Dr. Renato Weller Glucose Ql (U) Negative Normal NEGATIVE [facility] Comment on above: Performed By: #### U AMIC #### [facility] [address] [address] [address] Renato Weller Hemoglobin Ql (U) Negative Normal NEGATIVE [facility] Comment on above: Performed By: #### U AMIC #### [facility] [address] [address] [address] Renato Weller Ketones Ql (U) Negative Normal NEGATIVE [facility] Comment on above: Performed By: #### U AMIC #### [facility] [address] [address] [address] Renato Weller LEUKOCYTES SMALL Abnormal NEGATIVE [facility] Comment on above: Performed By: #### U AMIC #### [facility] [address] [id number] Dr. Renaot Weller MUCOUS NONE SEEN Normal NONE SEEN [facility] Comment on above: Performed By: #### U AMIC #### [facility] [address] [place] [address] Dr. Renato Weller Nitrite Ql (U) Negative Normal NEGATIVE [facility] Comment on above: Performed By: #### U AMIC #### [facility] [address] [place] [address] Dr. Renato Weller pH (U) 7.0 [pH] Normal 5-9 [facility] Comment on above: Performed By: #### U AMIC #### [facility] [address] [place] [address] Dr. Renato Weller RBC 0-2 Normal 0-2 [facility] Comment on above: Performed By: #### U AMIC #### [facility] [address] [place] [address] Dr. Renato Weller SPEC GRAVITY 1.010 Normal 1.005-<=1.025 [facility] Comment on above: Performed By: #### U AMIC #### [facility] [address] [place] [address] Dr. Renato Weller UA PROTEIN Negative Normal NEGATIVE/ TRACE [facility] Comment on above: Performed By: #### U AMIC #### [facility] [address] [place] [address] Dr. Renaot Weller Urobilinogen Qn (U) 0.2 {Paul'U}/dL Normal 0.2 - 1. [address] [facility] Comment on above: Performed By: #### U AMIC #### [facility] [address] [place] [address] Dr. Renato Weller WBC NONE SEEN Normal NONE SEEN [facility] Comment on above: Performed By: #### U AMIC #### [facility] [address] [place] [address] Dr. Renato Weller CULTURE URINEon 05-12-2022 CULTURE URINE Culture Observations : LIGHT GROWTH OF MIXED GENITAL ROMEL. NO POTENTIAL PATHOGENS SEEN. Normal [facility] Comment on above: Performed By: #### U AMIC #### [facility] [address] [place] [address] Dr. Renato Weller UA RANDOM W/MICROSCOPICon BACTERIA TRACE Abnormal NONE SEEN [facility] Comment on above: Performed By: #### C H50T #### [facility] [address] [place] [address] Dr. Renato Weller Bilirubin Ql (U) LARGE Abnormal NEGATIVE [facility] Comment on above: Performed By: #### C H50T #### [facility] [address] [place] [address] Dr. Renato Weller CAST NONE SEEN Normal NONE SEEN [facility] Comment on above: Performed By: #### C H50T #### [facility] [address] [place] [address] Dr. Renato Weller Clarity (U) CLEAR Normal CLEAR [facility] Comment on above: Performed By: #### C H50T #### [facility] [address] [place] [address] Dr. Renato Weller Color (U) LT. YELLOW Normal YELLOW [facility] Comment on above: Performed By: #### C H50T #### [facility] [address] [place] [address] Dr. Renato Weller Crystals LM Nom (Urine sed) NONE SEEN Normal NONE SEEN [facility] Comment on above: Performed By: #### C H50T #### [facility] [address] [address] [address] Renato Weller Epithelial cells LM Ql (Urine sed) MODERATE Abnormal NONE SEEN /RARE [facility] Comment on above: Performed By: #### C H50T #### [facility] [address] [place] [address] Dr. Renato Weller Glucose Ql (U) Negative Normal NEGATIVE [facility] Comment on above: Performed By: #### C H50T #### [facility] [address] [address] [address] Renato Weller Hemoglobin Ql (U) Negative Normal NEGATIVE [facility] Comment on above: Performed By: #### C H50T #### [facility] [address] [place] [address] Dr. Renato Weller Ketones Ql (U) Negative Normal NEGATIVE [facility] Comment on above: Performed By: #### C H50T #### [facility] [address] [place] [address] Dr. Renato Weller LEUKOCYTES SMALL Abnormal NEGATIVE [facility] Comment on above: Performed By: #### C H50T #### [facility] [address] [place] [address] Dr. Renato Weller MUCOUS NONE SEEN Normal NONE SEEN [facility] Comment on above: Performed By: #### C H50T #### [facility] [address] [place] [address] Dr. Renato Weller Nitrite Ql (U) Negative Normal NEGATIVE [facility] Comment on above: Performed By: #### C H50T #### [facility] [address] [place] [address] Dr. Renato Weller pH (U) 6.0 [pH] Normal 5-9 [facility] Comment on above: Performed By: #### C H50T #### [facility] [address] [place] [address] Dr. Renato Weller RBC 0-2 Normal 0-2 [facility] Comment on above: Performed By: #### C H50T #### [facility] [address] [place] [address] Dr. Renato Weller SPEC GRAVITY 1.025 Normal 1.005-<=1.025 [facility] Comment on above: Performed By: #### C H50T #### [facility] [address] [place] [address] Dr. Renato Weller UA PROTEIN Negative Normal NEGATIVE/ TRACE [facility] Comment on above: Performed By: #### C H50T #### [facility] [address] [place] [address] Dr. Renato Weller Urobilinogen Qn (U) 0.2 {Paul'U}/dL Normal 0.2 - 1. [address] [facility] Comment on above: Performed By: #### C H50T #### [facility] [address] [place] [address] Dr. Renato Weller WBC 5-10 Abnormal NONE SEEN [facility] Comment on above: Performed By: #### C H50T #### [facility] [address] [place] [address] Dr. Renato Weller CULTURE URINEon 05-02-2022 CULTURE URINE Culture Observations : MODERATE GROWTH OF MIXED GENITAL ROMEL. PLEASE RESUBMIT CLEAN CATCH MID-STREAM URINE IF CLINICALLY INDICATED. Normal [facility] Comment on above: Performed By: #### U AMIC #### [facility] [address] [place] [address] Dr. Renato Weller UA RANDOM W/MICROSCOPICon BACTERIA LARGE Abnormal NONE SEEN [facility] Comment on above: Performed By: #### U AMIC #### [facility] [address] [place] [address] Dr. Renato Weller Bilirubin Ql (U) MODERATE Abnormal NEGATIVE [facility] Comment on above: Performed By: #### U AMIC #### [facility] [address] [place] [address] Dr. Renato Weller CAST NONE SEEN Normal NONE SEEN [facility] Comment on above: Performed By: #### U AMIC #### [facility] [address] [place] [address] Dr. Renato Weller Clarity (U) CLEAR Normal CLEAR [facility] Comment on above: Performed By: #### U AMIC #### [facility] [address] [address] [address] Renato Weller Color (U) LT. YELLOW Normal YELLOW [facility] Comment on above: Performed By: #### U AMIC #### [facility] [address] [address] [address] Renato Weller Crystals LM Nom (Urine sed) NONE SEEN Normal NONE SEEN [facility] Comment on above: Performed By: #### U AMIC #### [facility] [address] [address] [address] Renato eWller Epithelial cells LM Ql (Urine sed) MODERATE Abnormal NONE SEEN /RARE [facility] Comment on above: Performed By: #### U AMIC #### [facility] [address] [address] [address] Renato Weller Glucose Ql (U) Negative Normal NEGATIVE [facility] Comment on above: Performed By: #### U AMIC #### [facility] [address] [address] [address] Renato Weller Hemoglobin Ql (U) LARGE Abnormal NEGATIVE [facility] Comment on above: Performed By: #### U AMIC #### [facility] [address] [address] [address] Renato Weller Ketones Ql (U) Negative Normal NEGATIVE [facility] Comment on above: Performed By: #### U AMIC #### [facility] [address] [address] [address] Renato Weller LEUKOCYTES LARGE Abnormal NEGATIVE [facility] Comment on above: Performed By: #### U AMIC #### [facility] [address] [address] [address] Renato Weller MUCOUS NONE SEEN Normal NONE SEEN [facility] Comment on above: Performed By: #### U AMIC #### [facility] [address] [address] [address] Renato Weller Nitrite Ql (U) Negative Normal NEGATIVE [facility] Comment on above: Performed By: #### U AMIC #### [facility] [address] [place] [address] Dr. Renato Weller pH (U) 6.0 [pH] Normal 5-[address] [facility] Comment on above: Performed By: #### U AMIC #### [facility] [address] [place] [address] Dr. Renato Weller RBC 5-10 Abnormal 0-[address] [facility] Comment on above: Performed By: #### U AMIC #### [facility] [address] [place] [address] Dr. Renato Weller SPEC GRAVITY 1.020 Normal 1.005-<=1.025 [facility] Comment on above: Performed By: #### U AMIC #### [facility] [address] [place] [address] Dr. Renato Weller UA PROTEIN Negative Normal NEGATIVE/ TRACE [facility] Comment on above: Performed By: #### U AMIC #### [facility] [address] [place] [address] Dr. Renato Weller Urobilinogen Qn (U) 0.2 {Paul'U}/dL Normal 0.2 - 1. [address] [facility] Comment on above: Performed By: #### U AMIC #### [facility] [address] [place] [address] Dr. Renato Weller WBC 10-20 Abnormal NONE SEEN [facility] Comment on above: Performed By: #### U AMIC #### [facility] [address] [place] [address] Dr. Renato Weller XR CSPINE MIN 4 [...] CASANDRA DURAN Date: 2022-05-01 17:[address] [facility] C3 and C4 COMPLEMENTon 04-15 Complement C3, Serum 115 mg/dL Normal 82-167 [facility] Comment on above: Performed By: #### C H50T #### [facility] [address] [place] [address] Dr. Renato Weller Complement C4, Serum 23 mg/dL Normal 12-[address] [facility] Comment on above: Performed By: #### C H50T #### [facility] [address] [place] [address] Dr. Renato Weller COMPLEMENT TOTAL (CH50)on Complement, Total (CH50) >60 Normal >41 [facility] Comment on above: Result Comment: Age [...] values. Performed By: #### C H50T #### [facility] [address] [place] [address] Dr. Renato Weller CBC AUTO DIFFon 04-14-2022 BASO # 0.1 103/ul Normal 0.0-0.1 [facility] Comment on above: Performed By: #### C H50T #### [facility] [address] [place] [address] Dr. Renato Weller Basophils/100 WBC (Bld) 1.6 % Normal 0.2-2.0 [facility] Comment on above: Performed By: #### C H50T #### [facility] [address] [place] [address] Dr. Renato Weller EO # 0.1 103/ul Normal 0.0-0.[address] [facility] Comment on above: Performed By: #### C H50T #### [facility] [address] [place] [address] Dr. Renato Weller Eosinophils/100 WBC (Bld) 2.0 % Normal 0.9-7.0 [facility] Comment on above: Performed By: #### C H50T #### [facility] [address] [place] [address] Dr. Renato Weller Erythrocyte distribution width (RBC) [Ratio] 12.8 % Normal 11.0-15.0 [facility] Comment on above: Performed By: #### C H50T #### [facility] [address] [place] [address] Dr. Renato Weller Hematocrit (Bld) [Volume fraction] 40.0 % Normal 36.0-48.0 [facility] Comment on above: Performed By: #### C H50T #### [facility] [address] [place] [address] Dr. Renato Weller Hemoglobin (Bld) [Mass/Vol] 12.8 g/dL Normal 12.0-16.0 [facility] Comment on above: Performed By: #### C H50T #### [facility] [address] [place] [address] Dr. Renato Weller IG # 0.02 10e3/ul Normal 0.00-0.03 [facility] Comment on above: Performed By: #### C H50T #### [facility] [address] [place] [address] Dr. Renato Weller IG % 0.4 % Normal 0.0-0.5 [facility] Comment on above: Performed By: #### C H50T #### [facility] [address] [place] [address] Dr. Renato Weller LYMPH # 1.1 103/ul Critically low 1.2-3.8 [facility] Comment on above: Performed By: #### C H50T #### [facility] [address] [place] [address] Dr. Renato Weller Lymphocytes/100 WBC (Bld) 22.2 % Normal 20.5-60.0 [facility] Comment on above: Performed By: #### C H50T #### [facility] [address] [place] [address] Dr. Renato Weller MANUAL DIFF REQ NO Normal [facility] Comment on above: Performed By: #### C H50T #### [facility] [address] [place] [address] Dr. Renato Weller MCH (RBC) [Entitic mass] 31.3 pg Normal 26.7-34.0 [facility] Comment on above: Performed By: #### C H50T #### [facility] [address] [place] [address] Dr. Renato Weller MCHC (RBC) [Mass/Vol] 32.0 g/dL Normal 29.9-35.2 [facility] Comment on above: Performed By: #### C H50T #### [facility] [address] [place] [address] Dr. Renato Weller MCV (RBC) [Entitic vol] 97.8 fL Normal 81.0-99.0 [facility] Comment on above: Performed By: #### C H50T #### [facility] [address] [place] [address] Dr. Renato Weller MONO # 0.5 103/ul Normal 0.3-0.8 [facility] Comment on above: Performed By: #### C H50T #### [facility] [address] [place] [address] Dr. Renato Weller Monocytes/100 WBC (Bld) 9.8 % Normal 1.7-12.0 [facility] Comment on above: Performed By: #### C H50T #### [facility] [address] [place] [address] Dr. Renato Weller NEUT # 3.2 103/ul Normal 1.4-6.5 [facility] Comment on above: Performed By: #### C H50T #### [facility] [address] [place] [address] Dr. Renato Weller Neutrophils/100 WBC (Bld) 64.0 % Normal 43.0-75.0 [facility] Comment on above: Performed By: #### C H50T #### [facility] [address] [place] [address] Dr. Renato Weller Platelet mean volume (Bld) [Entitic vol] 9.3 fL Critically low 9.5-13.5 [facility] Comment on above: Performed By: #### C H50T #### [facility] [address] [address] [address] Renato Weller PLT 181 103/ul Normal 150-450 [facility] Comment on above: Performed By: #### C H50T #### [facility] [address] [address] [address] Renato Weller RBC 4.09 106/ul Critically low 4.20-5.40 [facility] Comment on above: Performed By: #### C H50T #### [facility] [address] [address] [address] Renato Weller WBC 5.0 103/ul Normal 4.0-11.0 [facility] Comment on above: Performed By: #### C H50T #### [facility] [address] [place] [address] Dr. Renato Weller LIPID PROFILEon 04-14-2022 CHOL-HDL RATIO NORM SEE BELOW Normal [facility] Comment on above: Result Comment: 3.3 - 4.4 LOW RISK 4.4 - 7.1 AVERAGE RISK 7.1 - 11.0 MODERATE RISK >11.0 HIGH RISK Performed By: #### T SH, LIPID #### [facility] [address] [place] [address] Dr. Renato Weller Cholesterol [Mass/Vol] 176 mg/dL Normal <=200 [facility] Comment on above: Performed By: #### T SH, LIPID #### [facility] [address] [place] [address] Dr. Renato Weller Cholesterol in HDL [Mass/Vol] 71 mg/dL Critically high 40-60 [facility] Comment on above: Performed By: #### T SH, LIPID #### [facility] [address] [place] [address] Dr. Renato Weller Cholesterol in LDL [Mass/Vol] 94.0 mg/dL Normal [facility] Comment on above: Performed By: #### T SH, LIPID #### [facility] [address] [address] [address] Renato Weller Cholesterol.total/C holesterol in HDL [Mass ratio] 2.5 {ratio} Normal [facility] Comment on above: Performed By: #### T SH, LIPID #### [facility] [address] [address] [address] Renato Weller HDL NORMAL > or = 60 mg/dl - LO W CARDIOVASCULAR RISK <40 mg/dl - HIGH CARDIOVASCULAR RISK Normal [facility] Comment on above: Performed By: #### T SH, LIPID #### [facility] [address] [address] [address] Renato Weller LDL CALC NORMAL SEE BELOW Normal [facility] Comment on above: Result Comment: <100 mg/dl OPTIMAL 100 - 129 mg/dl NEAR OR ABOVE OPTIMAL 130 - 159 mg/dl BORDERLINE HIGH 160 - 189 mg/dl HIGH >190 mg/dl VERY HIGH Performed By: #### T SH, LIPID #### [facility] [address] [address] [address] Renato Weller Triglyceride [Mass/Vol] 55 mg/dL Normal <=[address] [facility] Comment on above: Performed By: #### T SH, LIPID #### [facility] [address] [address] [address] Renato Weller VLDL CALC 11.0 mg/dL Normal [facility] Comment on above: Performed By: #### T SH, LIPID #### [facility] [address] [address] [address] Renato Weller MG MAMM SCREEN 3D HERBERT CADon 04-14-2022 MG MAMM SCREEN 3D HERBERT CAD Patient: GENNA HERRERA Exam Date: 04/14/2022 : 1950 Gender:F Ordering : DR CASANDRA CHOPRA Admission #: [id number] Family : Order #: [id number] CLICK HERE TO VIEW EXAM RADIOLOGY REPORT [...] ovarian cancer at age 44. LOCATION: [facility] BREAST COMPOSITION: Scattered areas fibroglandular density. [...] Duran MD on 04/14/2022 at 09:31 Normal [facility] PROF 14(COMP METB)on 022 Albumin [Mass/Vol] 3.8 g/dL Normal 3.4-5.0 [facility] Comment on above: Performed By: #### C MP #### [facility] [address] [place] [address] Dr. Renato Weller Albumin/Globulin [Mass ratio] 1.2 {ratio} Normal [facility] Comment on above: Performed By: #### C MP #### [facility] [address] [place] [address] Dr. Renato Weller ALP [Catalytic activity/Vol] 41 U/L Critically low 46-116 [facility] Comment on above: Performed By: #### C MP #### [facility] [address] [place] [address] Dr. Renato Weller ALT [Catalytic activity/Vol] 23 U/L Normal 14-59 [facility] Comment on above: Performed By: #### C MP #### [facility] [address] [place] [address] Dr. Renato Weller Anion gap [Moles/Vol] 10.0 mmol/L Normal [facility] Comment on above: Performed By: #### C MP #### [facility] [address] [place] [address] Dr. Renato Weller AST [Catalytic activity/Vol] 20 U/L Normal 15-37 [facility] Comment on above: Performed By: #### C MP #### [facility] [address] [address] [address] Renato Weller Bilirubin [Mass/Vol] 0.4 mg/dL Normal 0.2-1.0 [facility] Comment on above: Performed By: #### C MP #### [facility] [address] [address] [address] Renato Weller Calcium [Mass/Vol] 8.5 mg/dL Normal 8.5-10.1 [facility] Comment on above: Performed By: #### C MP #### [facility] [address] [address] [address] Renato Weller Chloride [Moles/Vol] 104 mmol/L Normal 98-107 [facility] Comment on above: Performed By: #### C MP #### [facility] [address] [place] [address] Dr. Renato Weller CO2 [Moles/Vol] 29.0 mmol/L Normal 21.0-32.0 [facility] Comment on above: Performed By: #### C MP #### [facility] [address] [address] [address] Renato Weller Creatinine [Mass/Vol] 0.69 mg/dL Normal 0.55-1.02 [facility] Comment on above: Performed By: #### C MP #### [facility] [address] [address] [address] Renato Weller EGFR-AF PORTUGUESE >60 Normal >=[address] [facility] Comment on above: Performed By: #### C MP #### [facility] [address] [address] [address] Renato Weller EGFR-NON AF PORTUGUESE >60 Normal >=60 [facility] Comment on above: Performed By: #### C MP #### [facility] [address] [place] [address] Dr. Renato Weller Globulin (S) [Mass/Vol] 3.2 g/dL Normal [facility] Comment on above: Performed By: #### C MP #### [facility] [address] [address] [address] Renato Weller Glucose [Mass/Vol] 84 mg/dL Normal 74-106 [facility] Comment on above: Performed By: #### C MP #### [facility] [address] [address] [address] Renato Weller Potassium [Moles/Vol] 4.0 mmol/L Normal 3.5-5.1 [facility] Comment on above: Performed By: #### C MP #### [facility] [address] [address] [address] Renato Weller Protein [Mass/Vol] 7.0 g/dL Normal 6.4-8.2 [facility] Comment on above: Performed By: #### C MP #### [facility] [address] [address] [address] Renato Weller Sodium [Moles/Vol] 139 mmol/L Normal 136-145 [facility] Comment on above: Performed By: #### C MP #### [facility] [address] [place] [address] Dr. Renato Weller Urea nitrogen [Mass/Vol] 16.0 mg/dL Normal 7.0-18.0 [facility] Comment on above: Performed By: #### C MP #### [facility] [address] [place] [address] Dr. Renato Weller Urea nitrogen/Creatinine [Mass ratio] 23.2 mg/mg Normal [facility] Comment on above: Performed By: #### C MP #### [facility] [address] [address] [address] Renato Weller SED RATE WESTERGREN 2021 SED RATE 16 mm/hr Normal <=[address] [facility] Comment on above: Performed By: #### U AMIC #### [facility] [address] [address] [address] Renato Weller TSHon 04-14-2022 TSH 3.056 uIU/mL Normal 0.358-3.740 [facility] Comment on above: Performed By: #### T SH, LIPID #### [facility] [address] [address] [address] Renato Weller UA RANDOM W/MICROSCOPICon BACTERIA MODERATE Abnormal NONE SEEN [facility] Comment on above: Performed By: #### C H50T #### [facility] [address] [place] [address] Dr. Renato Weller Bilirubin Ql (U) LARGE Abnormal NEGATIVE [facility] Comment on above: Performed By: #### C H50T #### [facility] [address] [address] [address] Renato Weller CAST NONE SEEN Normal NONE SEEN [facility] Comment on above: Performed By: #### C H50T #### [facility] [address] [place] [address] Dr. Renato eWller Clarity (U) CLEAR Normal CLEAR [facility] Comment on above: Performed By: #### C H50T #### [facility] [facility] [address] [place] [address] Dr. Renato Weller Color (U) LT. YELLOW Normal YELLOW [facility] Comment on above: Performed By: #### C H50T #### [facility] [address] [address] [address] Renato Weller Crystals LM Nom (Urine sed) NONE SEEN Normal NONE SEEN [facility] Comment on above: Performed By: #### C H50T #### [facility] [address] [place] [address] Dr. Renato Weller Epithelial cells LM Ql (Urine sed) MANY Abnormal NONE SEEN /RARE [facility] Comment on above: Performed By: #### C H50T #### [facility] [address] [place] [address] Dr. Renato Weller Glucose Ql (U) Negative Normal NEGATIVE [facility] Comment on above: Performed By: #### C H50T #### [facility] [address] [place] [address] Dr. Renato Weller Hemoglobin Ql (U) Negative Normal NEGATIVE [facility] Comment on above: Performed By: #### C H50T #### [facility] [address] [address] [address] Renato Weller Ketones Ql (U) Negative Normal NEGATIVE [facility] Comment on above: Performed By: #### C H50T #### [facility] [address] [place] [address] Dr. Renato Weller LEUKOCYTES LARGE Abnormal NEGATIVE [facility] Comment on above: Performed By: #### C H50T #### [facility] [address] [place] [address] Dr. Renato Weller MUCOUS NONE SEEN Normal NONE SEEN [facility] Comment on above: Performed By: #### C H50T #### [facility] [address] [place] [address] Dr. Renato Weller Nitrite Ql (U) Negative Normal NEGATIVE The [facility] Comment on above: Performed By: #### C H50T #### [facility] [address] [place] [address] Dr. Renato Weller pH (U) 6.0 [pH] Normal 5-9 [facility] Comment on above: Performed By: #### C H50T #### [facility] [address] [place] [address] Dr. Renato Weller RBC 2-5 Abnormal 0-2 [facility] Comment on above: Performed By: #### C H50T #### [facility] [address] [place] [address] Dr. Renato Weller SPEC GRAVITY 1.025 Normal 1.005-<=1.025 The [facility] Comment on above: Performed By: #### C H50T #### [facility] [address] [place] [address] Dr. Renato Wleler UA PROTEIN Negative Normal NEGATIVE/ TRACE [facility] Comment on above: Performed By: #### C H50T #### [facility] [address] [place] [address] Dr. Renato Weller Urobilinogen Qn (U) 0.2 {Paul'U}/dL Normal 0.2 - 1. 0 [facility] Comment on above: Performed By: #### C H50T #### [facility] [address] [place], [place] [address] Dr. Renato Weller WBC 10-20 Abnormal NONE SEEN [facility] Comment on above: Performed By: #### C H50T #### [facility] [address] [place], [place] [address] Dr. Renato Weller RAD - CT Reporton 02-26-2022 RAD - CT Report [id number]:[id number] [facility] CT ABDOMEN WO CONTRASTon CT ABDOMEN [...] MARII TURCIOS Date: 2022-02-19 17:[address] [facility] Ambulatory Visit Summaryon 0 02-04-2022 Ambulatory [...] veins of legs Ventral hernia Normal [facility] Physician Referralon 022 Physician Referral [id number]:[id number] Normal [facility] XR DEXA BONE DENSITYon 12-30 XR [...] CASANDRA DURAN Date: 2021-12-30 16:[address] [facility] C3 and C4 COMPLEMENTon 12-17 Complement C3, Serum 122 mg/dL Normal 82-[address] [facility] Comment on above: Performed By: #### C SUITE #### [facility] [address] [address] [address] Renato Weller Complement C4, Serum 24 mg/dL Normal 12-38 [facility] Comment on above: Performed By: #### C SUITE #### [facility] [address] [place] [address] Dr. Renato Weller COMPLEMENT TOTAL (CH50)on Complement, Total (CH50) >60 Normal >41 [facility] Comment on above: Result Comment: Age [...] values. Performed By: #### C H50T #### [facility] [address] [place] [address] Dr. Renato Weller CBC AUTO DIFFon 12-16-2021 BASO # 0.1 103/ul Normal 0.0-0.1 [facility] Comment on above: Performed By: #### L IPID, CMP #### [facility] [address] [place] [address] Dr. Renato Weller Basophils/100 WBC (Bld) 1.8 % Normal 0.2-2.0 [facility] Comment on above: Performed By: #### L IPID, CMP #### [facility] [address] [place] [address] Dr. Renato Weller EO # 0.1 103/ul Normal 0.0-0.7 [facility] Comment on above: Performed By: #### L IPID, CMP #### [facility] [address] [place] [address] Dr. Renato Weller Eosinophils/100 WBC (Bld) 2.2 % Normal 0.9-7.0 [facility] Comment on above: Performed By: #### L IPID, CMP #### [facility] [address] [place] [address] Dr. Renato Weller Erythrocyte distribution width (RBC) [Ratio] 13.8 % Normal 11.0-15.0 [facility] Comment on above: Performed By: #### L IPID, CMP #### [facility] [address] [place], [place] [id number] Dr. Renato Weller Hematocrit (Bld) [Volume fraction] 39.4 % Normal 36.0-48.0 [facility] Comment on above: Performed By: #### L IPID, CMP #### [facility] [address] [place] [address] Dr. Renato Weller Hemoglobin (Bld) [Mass/Vol] 12.5 g/dL Normal 12.0-16.0 [facility] Comment on above: Performed By: #### L IPID, CMP #### [facility] [address] [place] [address] Dr. Renato Weller IG # 0.02 10e3/ul Normal 0.00-0.03 [facility] Comment on above: Performed By: #### L IPID, CMP #### [facility] [address] [place] [address] Dr. Renato Weller IG % 0.4 % Normal 0.0-0.5 [facility] Comment on above: Performed By: #### L IPID, CMP #### [facility] [address] [place] [address] Dr. Renato Weller LYMPH # 1.0 103/ul Critically low 1.2-3.8 [facility] Comment on above: Performed By: #### L IPID, CMP #### [facility] [address] [place] [address] Dr. Renato Weller Lymphocytes/100 WBC (Bld) 18.5 % Critically low 20.5-60.0 [facility] Comment on above: Performed By: #### L IPID, CMP #### [facility] [address] [place] [address] Dr. Renato Weller MANUAL DIFF REQ NO Normal The [facility] Comment on above: Performed By: #### L IPID, CMP #### [facility] [address] [place] [address] Dr. Renato Weller MCH (RBC) [Entitic mass] 30.8 pg Normal 26.7-34.0 [facility] Comment on above: Performed By: #### L IPID, CMP #### [facility] [address] [address] [address] Renato Weller MCHC (RBC) [Mass/Vol] 31.7 g/dL Normal 29.9-35.[address] [facility] Comment on above: Performed By: #### L IPID, CMP #### [facility] [address] [address] [address] Renato Weller MCV (RBC) [Entitic vol] 97.0 fL Normal 81.0-99.[address] [facility] Comment on above: Performed By: #### L IPID, CMP #### [facility] [address] [place] [address] Dr. Renato Weller MONO # 0.5 103/ul Normal 0.3-0.[address] [facility] Comment on above: Performed By: #### L IPID, CMP #### [facility] [address] [place] [address] Dr. Renato Weller Monocytes/100 WBC (Bld) 9.3 % Normal 1.7-12.0 [facility] Comment on above: Performed By: #### L IPID, CMP #### [facility] [address] [place] [address] Dr. Renato Weller NEUT # 3.8 103/ul Normal 1.4-6.5 [facility] Comment on above: Performed By: #### L IPID, CMP #### [facility] [address] [place] [address] Dr. Renato Weller Neutrophils/100 WBC (Bld) 67.8 % Normal 43.0-75.[address] [facility] Comment on above: Performed By: #### L IPID, CMP #### [facility] [address] [place] [address] Dr. Renato Weller Platelet mean volume (Bld) [Entitic vol] 9.1 fL Critically low 9.5-13.5 [facility] Comment on above: Performed By: #### L IPID, CMP #### [facility] [address] [place] [address] Dr. Renato Weller PLT 240 103/ul Normal 150-[address] [facility] Comment on above: Performed By: #### L IPID, CMP #### [facility] [address] [address] [address] Renato Weller RBC 4.06 106/ul Critically low 4.20-5.40 [facility] Comment on above: Performed By: #### L IPID, CMP #### [facility] [address] [address] [address] Renato Weller WBC 5.6 103/ul Normal 4.0-11.0 [facility] Comment on above: Performed By: #### L IPID, CMP #### [facility] [address] [address] [address] Renato Weller PROF 14(COMP METB)on 022 Albumin [Mass/Vol] 3.5 g/dL Normal 3.4-5.0 [facility] Comment on above: Performed By: #### C H50T #### [facility] [address] [address] [address] Renato Weller Albumin/Globulin [Mass ratio] 1.1 {ratio} Normal [facility] Comment on above: Performed By: #### C H50T #### [facility] [address] [address] [address] Renato Weller ALP [Catalytic activity/Vol] 51 U/L Normal 46-116 [facility] Comment on above: Performed By: #### C H50T #### [facility] [address] [address] [address] Renato Weller ALT [Catalytic activity/Vol] 22 U/L Normal 14-[address] [facility] Comment on above: Performed By: #### C H50T #### [facility] [address] [address] [address] Renato Weller Anion gap [Moles/Vol] 13.0 mmol/L Normal [facility] Comment on above: Performed By: #### C H50T #### [facility] [address] [address] [address] Renato Weller AST [Catalytic activity/Vol] 17 U/L Normal 15-[address] [facility] Comment on above: Performed By: #### C H50T #### [facility] [address] [address] [address] Renato Welelr Bilirubin [Mass/Vol] 0.4 mg/dL Normal 0.2-1.0 [facility] Comment on above: Performed By: #### C H50T #### [facility] [address] [place] [address] Dr. Renato Weller Calcium [Mass/Vol] 8.3 mg/dL Critically low 8.5-10.[address] [facility] Comment on above: Performed By: #### C H50T #### [facility] [address] [place] [address] Dr. Renato Weller Chloride [Moles/Vol] 104 mmol/L Normal 98-107 [facility] Comment on above: Performed By: #### C H50T #### [facility] [address] [place] [address] Dr. Renato Weller CO2 [Moles/Vol] 27.4 mmol/L Normal 21.0-32.0 [facility] Comment on above: Performed By: #### C H50T #### [facility] [address] [place] [address] Dr. Renato Weller Creatinine [Mass/Vol] 0.71 mg/dL Normal 0.55-1.02 [facility] Comment on above: Performed By: #### C H50T #### [facility] [address] [place] [address] Dr. Renato Weller EGFR-AF PORTUGUESE >60 Normal >=[address] [facility] Comment on above: Performed By: #### C H50T #### [facility] [address] [place] [address] Dr. Renato Weller EGFR-NON AF PORTUGUESE >60 Normal >=60 [facility] Comment on above: Performed By: #### C H50T #### [facility] [address] [place] [address] Dr. Renato Weller Globulin (S) [Mass/Vol] 3.1 g/dL Normal [facility] Comment on above: Performed By: #### C H50T #### [facility] [address] [address] [address] Renato Weller Glucose [Mass/Vol] 85 mg/dL Normal 74-106 [facility] Comment on above: Performed By: #### C H50T #### [facility] [address] [address] [address] Renato Weller Potassium [Moles/Vol] 4.4 mmol/L Normal 3.5-5.1 [facility] Comment on above: Performed By: #### C H50T #### [facility] [address] [address] [address] Renato Weller Protein [Mass/Vol] 6.6 g/dL Normal 6.4-8.2 [facility] Comment on above: Performed By: #### C H50T #### [facility] [address] [address] [address] Renato Weller Sodium [Moles/Vol] 140 mmol/L Normal 136-145 [facility] Comment on above: Performed By: #### C H50T #### [facility] [address] [address] [address] Renato Weller Urea nitrogen [Mass/Vol] 14.0 mg/dL Normal 7.0-18.0 [facility] Comment on above: Performed By: #### C H50T #### [facility] [address] [address] [address] Renato Weller Urea nitrogen/Creatinine [Mass ratio] 19.7 mg/mg Normal [facility] Comment on above: Performed By: #### C H50T #### [facility] [address] [address] [address] Renato Weller SED [facility] SED RATE 6 mm/hr Normal <=30 [facility] Comment on above: Performed By: #### C H50T #### [facility] [address] [address] [address] Renato Weller UA RANDOM W/MICROSCOPICon BACTERIA TRACE Abnormal NONE SEEN [facility] Comment on above: Performed By: #### C H50T #### [facility] [address] [place] [address] Dr. Renato Weller Bilirubin Ql (U) MODERATE Abnormal NEGATIVE [facility] Comment on above: Performed By: #### C H50T #### [facility] [address] [place] [address] Dr. Renato Weller CAST NONE SEEN Normal NONE SEEN [facility] Comment on above: Performed By: #### C H50T #### [facility] [address] [place] [address] Dr. Renato Weller Clarity (U) CLEAR Normal CLEAR [facility] Comment on above: Performed By: #### C H50T #### [facility] [address] [place] [address] Dr. Renato Weller Color (U) LT. YELLOW Normal YELLOW [facility] Comment on above: Performed By: #### C H50T #### [facility] [address] [place] [address] Dr. Renato Weller Crystals LM Nom (Urine sed) NONE SEEN Normal NONE SEEN [facility] Comment on above: Performed By: #### C H50T #### [facility] [address] [place] [address] Dr. Renato Weller Epithelial cells LM Ql (Urine sed) MODERATE Abnormal NONE SEEN /RARE [facility] Comment on above: Performed By: #### C H50T #### [facility] [address] [place] [address] Dr. Renato Weller Glucose Ql (U) Negative Normal NEGATIVE [facility] Comment on above: Performed By: #### C H50T #### [facility] [address] [place] [address] Dr. Renato Weller Hemoglobin Ql (U) Negative Normal NEGATIVE [facility] Comment on above: Performed By: #### C H50T #### [facility] [address] [place] [address] Dr. Renato Weller Ketones Ql (U) Negative Normal NEGATIVE [facility] Comment on above: Performed By: #### C H50T #### [facility] [address] [place] [address] Dr. Renato Weller LEUKOCYTES SMALL Abnormal NEGATIVE [facility] Comment on above: Performed By: #### C H50T #### [facility] [address] [place] [address] Dr. Renato Weller MUCOUS NONE SEEN Normal NONE SEEN [facility] Comment on above: Performed By: #### C H50T #### [facility] [address] [place] [address] Dr. Renato Weller Nitrite Ql (U) Negative Normal NEGATIVE [facility] Comment on above: Performed By: #### C H50T #### [facility] [address] [place] [address] Dr. Renato Weller pH (U) 6.0 [pH] Normal 5-9 [facility] Comment on above: Performed By: #### C H50T #### [facility] [address] [place] [address] Dr. Renato Weller RBC NONE SEEN Abnormal 0-2 [facility] Comment on above: Performed By: #### C H50T #### [facility] [address] [place] [address] Dr. Renato Weller SPEC GRAVITY 1.010 Normal 1.005-<=1.025 [facility] Comment on above: Performed By: #### C H50T #### [facility] [address] [place] [address] Dr. Renato Weller UA PROTEIN Negative Normal NEGATIVE/ TRACE [facility] Comment on above: Performed By: #### C H50T #### [facility] [address] [place] [address] Dr. Renato Weller Urobilinogen Qn (U) 0.2 {Paul'U}/dL Normal 0.2 - 1. 0 [facility] Comment on above: Performed By: #### C H50T #### [facility] [address] [place] [address] Dr. Renato Weller WBC 2-5 Abnormal NONE SEEN [facility] Comment on above: Performed By: #### C H50T #### [facility] [address] [address] [address] Renato Weller C-Reactive Proteinon 019 CRP [Mass/Vol] 0.6 mg/dL Normal 0.0-1.0 [facility] Comment on above: Performed By: #### C BC, CK, CMP, CRP, T4F, TSH3, ESR #### [address] Complete Blood Count Auto Di ffon 04-06-2019 Basophils (Bld) [#/Vol] 0.1 10*3/uL Normal 0.0-0.2 [facility] Comment on above: Result Comment: PERF ORMED BY: [place] [address] PATHOLOGIST [employer] ROSLYN TALLEY M.D. Performed By: #### C BC, CK, CMP, CRP, T4F, TSH3, ESR #### [address] Basophils/100 WBC (Bld) 1.0 % Normal . [facility] Comment on above: Performed By: #### C BC, CK, CMP, CRP, T4F, TSH3, ESR #### [address] Eosinophils (Bld) [#/Vol] 0.1 10*3/uL Normal 0.0-0.45 [facility] Comment on above: Performed By: #### C BC, CK, CMP, CRP, T4F, TSH3, ESR #### [address] Eosinophils/100 WBC (Bld) 0.9 % Normal . [facility] Comment on above: Performed By: #### C BC, CK, CMP, CRP, T4F, TSH3, ESR #### [address] Erythrocyte distribution width (RBC) [Ratio] 14.5 % Normal 11.9-15.3 [facility] Comment on above: Performed By: #### C BC, CK, CMP, CRP, T4F, TSH3, ESR #### [address] Hematocrit (Bld) [Volume fraction] 44.9 % Normal 34.0-46.4 [facility] Comment on above: Performed By: #### C BC, CK, CMP, CRP, T4F, TSH3, ESR #### [address] Hemoglobin (Bld) [Mass/Vol] 15.2 g/dL Normal 11.8-15.4 [facility] Comment on above: Performed By: #### C BC, CK, CMP, CRP, T4F, TSH3, ESR #### [address] Lymphocytes (Bld) [#/Vol] 1.1 10*3/uL Normal 1.00-4.8 [facility] Comment on above: Performed By: #### C BC, CK, CMP, CRP, T4F, TSH3, ESR #### [address] Lymphocytes/100 WBC (Bld) 14.6 % Normal . [facility] Comment on above: Performed By: #### C BC, CK, CMP, CRP, T4F, TSH3, ESR #### [address] MCH (RBC) [Entitic mass] 34.0 g/dL Normal 32.0-35.0 [facility] Comment on above: Performed By: #### C BC, CK, CMP, CRP, T4F, TSH3, ESR #### [address] MCH (RBC) [Entitic mass] 30.8 pg Normal 24.7-34.3 [facility] Comment on above: Performed By: #### C BC, CK, CMP, CRP, T4F, TSH3, ESR #### [address] MCV (RBC) [Entitic vol] 90.5 fL Normal 80-100 [facility] Comment on above: Performed By: #### C BC, CK, CMP, CRP, T4F, TSH3, ESR #### [facility] [address] Monocytes (Bld) [#/Vol] 0.5 10*3/uL Normal 0.0-0.8 [facility] Comment on above: Performed By: #### C BC, CK, CMP, CRP, T4F, TSH3, ESR #### [facility] [address] Monocytes/100 WBC (Bld) 7.0 % Normal . [facility] Comment on above: Performed By: #### C BC, CK, CMP, CRP, T4F, TSH3, ESR #### [address] Neutrophils (Bld) [#/Vol] 6.0 10*3/uL Normal 1.8-7.7 [facility] Comment on above: Performed By: #### C BC, CK, CMP, CRP, T4F, TSH3, ESR #### [address] Neutrophils/100 WBC (Bld) 76.5 % Normal . [facility] Comment on above: Performed By: #### C BC, CK, CMP, CRP, T4F, TSH3, ESR #### [place] [address] [place] Nucleated RBC/100 WBC (Bld) [Ratio] 0.2 % Normal 0-0.5 [facility] Comment on above: Performed By: #### C BC, CK, CMP, CRP, T4F, TSH3, ESR #### [facility] [address] Platelet mean volume (Bld) [Entitic vol] 8.6 fL Normal 6.3-10.7 [facility] Comment on above: Performed By: #### C BC, CK, CMP, CRP, T4F, TSH3, ESR #### [address] Platelets (Bld) [#/Vol] 218 10*3/uL Normal 150-450 [facility] Comment on above: Performed By: #### C BC, CK, CMP, CRP, T4F, TSH3, ESR #### [facility] [address] RBC (Bld) [#/Vol] 4.96 10*6/uL Normal 3.60-5.00 [facility] Comment on above: Performed By: #### C BC, CK, CMP, CRP, T4F, TSH3, ESR #### [facility] [address] WBC (Bld) [#/Vol] 7.8 10*3/uL Normal 4.5-11.0 [facility] Comment on above: Performed By: #### C BC, CK, CMP, CRP, T4F, TSH3, ESR #### [facility] [address] Comprehensive Metabolic Pane molly 04-06-2019 Albumin [Mass/Vol] 4.0 g/dL Normal 3.2-5.5 [facility] Comment on above: Performed By: #### C BC, CK, CMP, CRP, T4F, TSH3, ESR #### [address] Albumin/Globulin [Mass ratio] 1.5 {ratio} Normal [facility] Comment on above: Performed By: #### C BC, CK, CMP, CRP, T4F, TSH3, ESR #### [facility] [address] ALP [Catalytic activity/Vol] 40 U/L Normal 32-92 [facility] Comment on above: Performed By: #### C BC, CK, CMP, CRP, T4F, TSH3, ESR #### [facility] [address] ALT [Catalytic activity/Vol] 10 U/L Normal 10-60 [facility] Comment on above: Performed By: #### C BC, CK, CMP, CRP, T4F, TSH3, ESR #### [facility] [address] AST [Catalytic activity/Vol] 15 U/L Normal 10-42 [facility] Comment on above: Performed By: #### C BC, CK, CMP, CRP, T4F, TSH3, ESR #### [address] Bilirubin [Mass/Vol] 0.6 mg/dL Normal 0.3-1.2 [facility] Comment on above: Performed By: #### C BC, CK, CMP, CRP, T4F, TSH3, ESR #### [address] Calcium [Mass/Vol] 9.6 mg/dL Normal 8.2-10.2 [facility] Comment on above: Performed By: #### C BC, CK, CMP, CRP, T4F, TSH3, ESR #### [address] Chloride [Moles/Vol] 103 mmol/L Normal 95-114 [facility] Comment on above: Performed By: #### C BC, CK, CMP, CRP, T4F, TSH3, ESR #### [address] CO2 [Moles/Vol] 26.6 mmol/L Normal 22.0-30.0 [facility] Comment on above: Performed By: #### C BC, CK, CMP, CRP, T4F, TSH3, ESR #### [address] Creatinine [Mass/Vol] 0.79 mg/dL Normal 0.44-1.03 [facility] Comment on above: Performed By: #### C BC, CK, CMP, CRP, T4F, TSH3, ESR #### [address] Estimated GFR ( Kimberly > 60 Normal [facility] Comment on above: Result Comment: GFR estimated reference range: According to KDOQI guidelines, <60 ml/min/1.73m2 is sufficient to diagnose a patient with chronic kidney disease. Performed By: #### C BC, CK, CMP, CRP, T4F, TSH3, ESR #### [address] Estimated GFR (Non- Am > 60 Normal [facility] Comment on above: Performed By: #### C BC, CK, CMP, CRP, T4F, TSH3, ESR #### [address] Globulin (S) [Mass/Vol] 2.6 g/dL Normal [facility] Comment on above: Performed By: #### C BC, CK, CMP, CRP, T4F, TSH3, ESR #### [address] Glucose [Mass/Vol] 87 mg/dL Normal 70-100 [facility] Comment on above: Result Comment: [facility] Glucose Reference Range is dependent on time and content of last meal. Glucose of more than 200 mg/dL in a nonstressed, ambulatory subject supports the diagnosis of Diabetes Mellitus. ADA recommended reference range Performed By: #### C BC, CK, CMP, CRP, T4F, TSH3, ESR #### [address] Potassium [Moles/Vol] 4.2 mmol/L Normal 3.5-5.1 [facility] Comment on above: Performed By: #### C BC, CK, CMP, CRP, T4F, TSH3, ESR #### [address] Protein [Mass/Vol] 6.6 g/dL Normal 6.1-7.9 [facility] Comment on above: Performed By: #### C BC, CK, CMP, CRP, T4F, TSH3, ESR #### [address] Sodium [Moles/Vol] 140 mmol/L Normal 136-146 [facility] Comment on above: Performed By: #### C BC, CK, CMP, CRP, T4F, TSH3, ESR #### [facility] [address] [place] [address] [place] Urea nitrogen [Mass/Vol] 12 mg/dL Normal 9-23 [facility] Comment on above: Performed By: #### C BC, CK, CMP, CRP, T4F, TSH3, ESR #### [facility] [address] [place] [id number] [place] Creatine Kinaseon 04-06-2019 CK [Catalytic activity/Vol] 46 U/L Normal 22-269 [facility] Comment on above: Result Comment: PERF ORMED BY: [place] [address] PATHOLOGIST SCRAP STRIPPER HAND ROSLYN TALLEY M.D. Performed By: #### C BC, CK, CMP, CRP, T4F, TSH3, ESR #### [place] [address] [place] Dipstick and Microscopicon 1 Appearance (U) Turbid Critically abnormal Clear [facility] Comment on above: Order Comment: Name Collection Type:: Clean-Voided Midstream Performed By: #### A DDONUAPLUS, PT, PTT #### [place] [address] [place] Bacteria LM.HPF (Urine sed) [#/Area] 1+ High None Seen [facility] Comment on above: Order Comment: Name Collection Type:: Clean-Voided Midstream Performed By: #### A DDONUAPLUS, PT, PTT #### [place] [address] [place] Bilirubin,Urine Negative Normal Negative [facility] Comment on above: Order Comment: Name Collection Type:: Clean-Voided Midstream Performed By: #### A DDONUAPLUS, PT, PTT #### [place] [address] [place] Color (U) Yellow Normal Yellow [facility] Comment on above: Order Comment: Name Collection Type:: Clean-Voided Midstream Performed By: #### A DDONUAPLUS, PT, PTT #### [place] [address] [place] Glucose Ql (U) Normal Normal Normal [facility] Comment on above: Order Comment: Name Collection Type:: Clean-Voided Midstream Performed By: #### A DDONUAPLUS, PT, PTT #### [facility] [address] [place] [address] Hyaline Casts,Urine None Seen Normal 0-1 [facility] Comment on above: Order Comment: Name Collection Type:: Clean-Voided Midstream Performed By: #### A DDONUAPLUS, PT, PTT #### [facility] [address] [place] [address] Ketones Ql (U) Trace High Negative [facility] Comment on above: Order Comment: Name Collection Type:: Clean-Voided Midstream Performed By: #### A DDONUAPLUS, PT, PTT #### [facility] [address] [place] [address] Leukocyte esterase Test strip Ql (U) 3+ High Negative [facility] Comment on above: Order Comment: Name Collection Type:: Clean-Voided Midstream Performed By: #### A DDONUAPLUS, PT, PTT #### [facility] [address] [place] [address] [place] Nitrite,Urine Negative Normal Negative [facility] Comment on above: Order Comment: Name Collection Type:: Clean-Voided Midstream Performed By: #### A DDONUAPLUS, PT, PTT #### [facility] [address] [place] [address] [place] Occult Blood,Urine Negative Normal Negative [facility] Comment on above: Order Comment: Name Collection Type:: Clean-Voided Midstream Performed By: #### A DDONUAPLUS, PT, PTT #### [facility] [address] [place] [address] [place] Other Casts,Urine None Seen Normal None Seen [facility] Comment on above: Order Comment: Name Collection Type:: Clean-Voided Midstream Result Comment: PERF ORMED BY: [place] [address] PATHOLOGIST SCRAP STRIPPER HAND JIANLAN SUN M.D. Performed By: #### A DDONUAPLUS, PT, PTT #### [address] pH (U) 5.0 [pH] Normal 5.0-9.0 [facility] Comment on above: Order Comment: Name Collection Type:: Clean-Voided Midstream Performed By: #### A DDONUAPLUS, PT, PTT #### [address] Protein (U) [Mass/Vol] Negative Normal Negative [facility] Comment on above: Order Comment: Name Collection Type:: Clean-Voided Midstream Performed By: #### A DDONUAPLUS, PT, PTT #### [address] RBC LM.HPF (Urine sed) [#/Area] 5-9 High 0-4 [facility] Comment on above: Order Comment: Name Collection Type:: Clean-Voided Midstream Performed By: #### A DDONUAPLUS, PT, PTT #### [address] Specificy [place],Urine 1.024 Normal 1.001-1.030 [facility] Comment on above: Order Comment: Name Collection Type:: Clean-Voided Midstream Performed By: #### A DDONUAPLUS, PT, PTT #### [address] Squamous Epithelial Cell,Urine 5-9 High 0-2 [facility] Comment on above: Order Comment: Name Collection Type:: Clean-Voided Midstream Performed By: #### A DDONUAPLUS, PT, PTT #### [place] [address] [place] Urobilinogen,Urine Normal Normal Normal [facility] Comment on above: Order Comment: Name Collection Type:: Clean-Voided Midstream Performed By: #### A DDONUAPLUS, PT, PTT #### [place] [address] [place] WBC LM.HPF (Urine sed) [#/Area] 20-49 High 0-4 [facility] Comment on above: Order Comment: Name Collection Type:: Clean-Voided Midstream Performed By: #### A DDONUAPLUS, PT, PTT #### [address] Erythrocyte Sedimentation Ra roosevelt 04-06-2019 ESR (Bld) [Velocity] 23 mm/h Normal 0-30 [facility] Comment on above: Result Comment: PERF ORMED BY: [place] [address] PATHOLOGIST SCRAP STRIPPER HAND ROSLYN TALLEY M.D. Performed By: #### C BC, CK, CMP, CRP, T4F, TSH3, ESR #### [address] Free T4 (Free Thyroxine)on 1 Free T4 [Mass/Vol] 0.88 ng/dL Normal 0.61-1.12 [facility] Comment on above: Performed By: #### C BC, CK, CMP, CRP, T4F, TSH3, ESR #### [place] [address] [place] Partial Thromboplastin Timeo n 04-06-2019 aPTT Coag (Bld) [Time] 29.8 s Normal 23.0-35.0 [facility] Comment on above: Order Comment: List the anticoagulant: NONE Result Comment: PERF ORMED BY: [place] [address] PATHOLOGIST SCRAP [employer]IP[employer] HAND ROSLYN TALLEY M.D. Performed By: #### A DDONUAPLUS, PT, PTT #### [place] [address] [place] Prothrombin Time INRon 04-06 INR Coag (Bld) [Relative time] 10.3 s Normal 9.0-12.9 [facility] Comment on above: Order Comment: List the anticoagulant: NONE Performed By: #### A DDONUAPLUS, PT, PTT #### [address] INR Coag (PPP) [Relative time] 0.9 {INR} Normal [facility] Comment on above: Order Comment: List [...] #### A DDONUAPLUS, PT, PTT #### [facility] [address] Thyroid Stimulating Hormoneo n 04-06-2019 TSH Qn 2.89 u[iU]/mL Normal 0.45-5.33 [facility] Comment on above: Result Comment: PERF ORMED BY: [address] [place] [address] PATHOLOGIST SCRAP [employer]IP[employer] HAND ROSLYN TALLEY M.D. Performed By: #### C BC, CK, CMP, CRP, T4F, TSH3, ESR #### [facility] [address] [place] [id number] [facility] Vital Signs Date Time Vital Sign Value Performing Clinician Facility 02-16-2024 09:19040 Body height 160.02 cm DO Casandra Nav Work Phone: [facility] 02-16-2024 09:19040 Body mass index (BMI) [Ratio] 30.6 kg/m2 DO Casandra Chopra Work Phone: [facility] 02-16-2024 09:19040 Body temperature 97.9 [degF] DO Casandra Chopra Work Phone: [facility] 02-16-2024 09:19040 Body weight 78.47 kg DO Casandra Chopra Work Phone: [facility] 02-16-2024 09:19040 Diastolic blood pressure 74 mm[Hg] DO Casandra Chopra Work Phone: [facility] 02-16-2024 09:19-0400 Heart rate 48 /min DO Casandra Chopra Work Phone: [facility] 02-16-2024 09:19-0400 SaO2% (BldA) [Mass fraction] 99 % DO Casandra Chopra Work Phone: [facility] 02-16-2024 09:19-0400 Systolic blood pressure 116 mm[Hg] DO Casandra Chopra Work Phone: [facility] 05-05-2023 09:10-0400 Body height 160.02 cm Casandra Chopra Other [facility] Other 05-05-2023 09:10-0400 Body mass index (BMI) [Ratio] 31.35 kg/m2 Casandra Chopra Other [facility] Other 05-05-2023 09:10-0400 Body temperature 98.9 [degF] Casandra Leunglaura Other [facility] Other 05-05-2023 09:10-0400 Body weight 80.29 kg Casandra Chopra Other [facility] Other 05-05-2023 09:10-0400 Diastolic blood pressure 68 mm[Hg] Casandra Chopra Other [facility] Other 05-05-2023 09:10-0400 Respiratory rate 18 /min Casandra Chopra Other [facility] Other 05-05-2023 09:10-0400 SaO2% (BldA) [Mass fraction] 98 % Casandra Xochitllaura Other [facility] Other 05-05-2023 09:10-0400 Systolic blood pressure 112 mm[Hg] Casandra Chopra Other [facility] Other 02-23-2023 11:40-0400 Body height 160.02 cm Eva Blades Other [facility] Other 02-23-2023 11:40-0400 Body mass index (BMI) [Ratio] 31.35 kg/m2 Eva Blades Other [facility] Other 02-23-2023 11:40-0400 Body weight 80.29 kg Eva Blades Other [facility] Other 02-23-2023 11:40-0400 Diastolic blood pressure 78 mm[Hg] Eva Blades Other [facility] Other 02-23-2023 11:40-0400 Systolic blood pressure 110 mm[Hg] Eva Blades Other [facility] Other 12-29-2022 10:00-0400 Body height 160.02 cm Germaine Manuel Other [facility] Other 12-29-2022 10:00-0400 Body mass index (BMI) [Ratio] 30.82 kg/m2 Germaine Manuel Other [facility] Other 12-29-2022 10:00-0400 Body weight 78.93 kg Germaine Manuel Other [facility] Other 12-29-2022 10:00-0400 Diastolic blood pressure 68 mm[Hg] Germaine Manuel Other [facility] Other 12-29-2022 10:00-0400 Systolic blood pressure 118 mm[Hg] Germaine Manuel Other [facility] Other 10-28-2022 10:10-0400 Body height 160.02 cm Casandra Chopra Other [facility] Other 10-28-2022 10:10-0400 Body mass index (BMI) [Ratio] 31.7 kg/m2 Casandra Chopra Other [facility] Other 10-28-2022 10:10-0400 Body temperature 97.6 [degF] Casandra Xochitllaura Other [facility] Other 10-28-2022 10:10-0400 Body weight 81.19 kg Casandra Chopra Other [facility] Other 10-28-2022 10:10-0400 Diastolic blood pressure 68 mm[Hg] Casandra Leunglaura Other [facility] Other 10-28-2022 10:10-0400 Respiratory rate 18 /min Casandra Chopra Other [facility] Other 10-28-2022 10:10-0400 SaO2% (BldA) [Mass fraction] 99 % Casandra Chopra Other [facility] Other 10-28-2022 10:10-0400 Systolic blood pressure 112 mm[Hg] Casandra Xochitllaura Other [facility] Other 02-04-2022 15:05-0400 Blood Pressure Location Russell BENITEZL [facility] [place] 02-04-2022 15:05-0400 Diastolic blood pressure 60 mm[Hg] Russell NILL [facility] [place] 02-04-2022 15:05-0400 Heart rate 72 /min Russell BENITEZL [facility] [place] 02-04-2022 15:05-0400 Respiratory rate 16 /min Russell HARRELL [facility] [place] 02-04-2022 15:05-0400 Systolic blood pressure 116 mm[Hg] Russell HARRELL [facility] [place] 10-17-2021 09:50-0400 Body height 160.02 cm Casandra Chopra Other [facility] Other 10-17-2021 09:50-0400 Body mass index (BMI) [Ratio] 31 kg/m2 Casandra Chopra Other [facility] Other 10-17-2021 09:50-0400 Body temperature 97.8 [degF] Casandra Chopra Other [facility] Other 10-17-2021 09:50-0400 Body weight 79.38 kg Casandra Chopra Other [facility] Other 10-17-2021 09:50-0400 Diastolic blood pressure 64 mm[Hg] Casandra Chopra Other [facility] Other 10-17-2021 09:50-0400 Respiratory rate 18 /min Casandra Chopra Other [facility] Other 10-17-2021 09:50-0400 SaO2% (BldA) [Mass fraction] 97 % Casandra Chopra Other [facility] Other 10-17-2021 09:50-0400 Systolic blood pressure 102 mm[Hg] Casandra Chopra Other [facility] Other 09-04-2021 09:10-0500 Body height 160.02 cm Casandra Nav Other [facility] Other 09-04-2021 09:10-0500 Body mass index (BMI) [Ratio] 30.11 kg/m2 Casandra Nav Other [facility] Other 09-04-2021 09:10-0500 Body temperature 97.6 [degF] Casandra Chopra Other [facility] Other 09-04-2021 09:10-0500 Body weight 77.11 kg Casandra Xochitllaura Other [facility] Other 09-04-2021 09:10-0500 Diastolic blood pressure 68 mm[Hg] Casandra Chopra Other [facility] Other 09-04-2021 09:10-0500 Respiratory rate 18 /min Casandra Chopra Other [facility] Other 09-04-2021 09:10-0500 SaO2% (BldA) [Mass fraction] 99 % Casandra Leunglaura Other [facility] Other 09-04-2021 09:10-0500 Systolic blood pressure 104 mm[Hg] Casandra Chopra Other [facility] Other 04-10-2021 10:10-0400 Body height 160.02 cm Casandra Leunglaura Other [facility] Other 04-10-2021 10:10-0400 Body mass index (BMI) [Ratio] 31 kg/m2 Casandra Xochitllaura Other [facility] Other 04-10-2021 10:10-0400 Body temperature 97.4 [degF] Casandra Chopra Other [facility] Other 04-10-2021 10:10-0400 Body weight 79.38 kg Casandra Chopra Other [facility] Other 04-10-2021 10:10-0400 Diastolic blood pressure 76 mm[Hg] Casandra Chopra Other [facility] Other 04-10-2021 10:10-0400 Respiratory rate 18 /min Casandra Chopra Other [facility] Other 04-10-2021 10:10-0400 SaO2% (BldA) [Mass fraction] 99 % Casandra Chopra Other [facility] Other 04-10-2021 10:10-0400 Systolic blood pressure 118 mm[Hg] Casandra Chopra Other [facility] Other Encounters Encounter Date Encounter Type Care Provider Facility Start: 03-29-2024 ambulatory Domingo George Facility :[facility] Start: 02-23-2024 End: 02-23-2024 ambulatory PHYSICIAN NO [facility] Work Phone: Start: 02-23-2024 End: 02-23-2024 Patient encounter procedure PHYSICIAN NO [facility] Work Phone: Start: 02-16-2024 End: 02-16-2024 ambulatory PHYSICIAN NO [facility] Work Phone: Start: 02-16-2024 End: 02-16-2024 Departed Referred DO Casandra Chopra Work Phone: [facility] [place] Work Phone: Start: 02-16-2024 End: 02-16-2024 Patient encounter procedure DO Casandra Chopra Work Phone: [facility] [place] Work Phone: Start: 02-10-2024 Non-patient / Non-visit DO Casandra Chopra Work Phone: [facility] Work Phone: Start: 01-25-2024 Non-patient / Non-visit DO Casandra Chopra Work Phone: [facility] Work Phone: Start: 12-04-2023 Non-patient / Non-visit DO Casandra Chopra Work Phone: [facility] Work Phone: Start: 05-12-2023 End: 05-12-2023 ambulatory Casandra Chopra Other [facility] Other Start: 05-12-2023 Telephone encounter Casandra Chopra [facility] [place] Start: 05-05-2023 End: 05-05-2023 ambulatory Casandra Chopra Other [facility] Other Start: 05-05-2023 Office outpatient visit 25 minutes Casandra Chopra [facility] [place] Start: 05-05-2023 Telephone encounter Casandra Chopra [facility] [place] Start: 02-23-2023 End: 02-23-2023 ambulatory Eva Cortes Other [facility] Other Start: 02-23-2023 Office outpatient visit 15 minutes Eva Cortes [facility] Start: 02-19-2023 End: 02-19-2023 ambulatory DO Josiah Samuel Work Phone: [facility] Work Phone: Start: 02-19-2023 End: 02-19-2023 Patient encounter procedure DO Josiah Samuel Work Phone: [facility] [place] Work Phone: Start: 02-12-2023 End: 02-12-2023 ambulatory Casandra Chopra Other [facility] Other Start: 02-12-2023 Telephone encounter Casandra Chopra [facility] [place] Start: 02-02-2023 End: 02-02-2023 ambulatory Casandra Chopra Other [facility] Other Start: 02-02-2023 Telephone encounter Casandra Chopra [facility] [place] Start: 12-30-2022 End: 12-30-2022 ambulatory Germaine Manuel Other [facility] Other Start: 12-30-2022 Telephone encounter Germaine Manuel [facility] [employer] Start: 12-29-2022 End: 12-29-2022 ambulatory Germaine Manuel Other [facility] Other Start: 12-29-2022 Office outpatient ne w 45 minutes Germaine Manuel [facility] Start: 12-02-2022 End: 12-03-2022 ambulatory CHRISSY VENEGAS . Facility:[facility] Start: 10-28-2022 End: 10-28-2022 ambulatory Casandra Chopra Other [facility] Other Start: 10-28-2022 Office outpatient visit 25 minutes Casandra Chopra [facility] [place] Start: 10-22-2022 End: 10-23-[address] CASANDRA CHOPRA Facility:[facility] Start: 09-15-2022 End: 09-15-2022 ambulatory Casandra Chopra Other [facility] Other Start: 09-15-2022 Telephone encounter Casandra Chopra [facility] [place] Start: 08-18-2022 End: 08-19-[address] CASANDRA CHOPRA Facility:[facility] Start: 05-12-2022 End: 05-13-[address] CASANDRA CHOPRA Facility:[facility] Start: 05-05-2022 End: 05-05-2022 ambulatory Casandra Chopra Other [facility] Other Start: 05-05-2022 Telephone encounter Casandra Chopra [facility] [place] Start: 05-01-2022 End: 05-02-[address] CASANDRA CHOPRA Facility:[facility] Start: 04-14-2022 End: 04-15-[address] CASANDRA CHOPRA Facility:[facility] Start: 02-19-2022 End: 02-20-[address] CASANDRA CHOPRA Facility:[facility] Start: 02-04-2022 End: 02-04-2022 Patient encounter procedure Russell R NILL [facility] Nill/Said [place] Start: 12-30-2021 End: 12-31-[address] CASANDRA CHOPRA Facility:[facility] Start: 12-16-2021 End: 12-17-[address] CASANDRA CHOPRA Facility:[facility] Start: 12-03-2021 End: 12-03-2021 ambulatory Casandra Chopra Other [facility] Other Start: 12-03-2021 Telephone encounter Casandra Chopra [facility] [place] Start: 10-22-2021 End: 10-22-2021 ambulatory Casandra Chopra Other [facility] Other Start: 10-22-2021 Telephone encounter Casandra Chopra [facility] [place] Start: 10-17-2021 End: 10-17-2021 ambulatory Casandra Chopra Other [facility] Other Start: 10-17-2021 Office outpatient visit 25 minutes Casandra Chopra [facility] [place] Start: 10-17-2021 Telephone encounter Casandra Chopra [facility] [place] Start: 09-04-2021 End: 09-04-2021 ambulatory Casandra Chopra Other [facility] Other Start: 09-04-2021 Office outpatient visit 15 minutes Casandra Chopra [facility] [place] Start: 04-24-2021 Telephone encounter Casandra Chopra [facility] [place] Start: 04-10-2021 Office outpatient visit 15 minutes Casandra Chopra [facility] Procedures Date Procedure Procedure Detail Performing Clinician [...] of bunion Russell LEVINE Extraction of cataract Lele el NILL Hammer [...] 02-16-2024 Bacteria identified in Urine by Culture [facility] Immunizations Immunization Date Immunization Notes Care Provider Shyla hall 04-20-2021 COVID-19 Vaccine Pfizer - Documentation Purposes Only Casandra Chopra Other [facility] 04-10-2021 influenza, seasonal, injectable Patient Objection Casandra Chopra Other [facility] Other 03-30-2021 COVID-19 Vaccine Pfizer - Documentation Purposes Only Casandra Chopra Other [facility] 11-21-2016 Toradol per 15 mg Casandra Calderon in Other [facility] Other 06-02-2016 influenza, seasonal, injectable Patient Objection Casandra Chopra Other [facility] Other 06-02-2016 pneumococcal polysaccharide vaccine, 23 valent Patient Objection Casandra Chopra Other [facility] Other 03-23-2012 Kenalog 40/Xylocaine Casandra mendieta Other [facility] Other NEGATED: Highlighted row has not occurred! 1 influenza, seasonal, injectable Patient Objection Casandra Chopra Other [facility] NEGATED: Highlighted row has not occurred! 6 influenza, seasonal, injectable Patient Objection Casandra Chopra Other [facility] NEGATED: Highlighted row has not occurred! 6 pneumococcal polysaccharide vaccine, 23 valent Patient Objection Casandra Chopra Other [facility] Payers Date Payer Category Payer Private Health Insurance [id number] [id number] Self-pay [id number] 2019 Medicare [id number] 2.16.8 [id number] 1959 Medicare [id number] 2. [id number] 1959 Medicare [id number] 1959 Private Health Insurance [id number] 1959 Unknown [id number] 1952 Unknown [id number] 2.16.84 [id number] 1952 Unknown [id number] 2.16.84 0.1.196852.3.579.2.593 1952 Unknown [id number] 2.16.84 0.1.341423.3.579.2.593 1952 Unknown [id number] 2.16.84 0.1.475392.3.579.2.593 1952 Unknown [id number] 2.16.84 0.1.982677.3.579.2.593 1952 Unknown [id number] 2.16.84 0.1.887580.3.579.2.593 1952 Unknown [id number] 2.16.84 0.1.328430.3.579.2.593 1952 Unknown [id number] 2.16.84 0.1.214433.3.579.2.593 1952 Unknown [id number] 2.16.84 0.1.835466.3.579.2.593 1952 Unknown [id number] 2.16.84 0.1.762877.3.579.2.593 Unknown [id number] 2.16.8 40.1.877488.3.579.2.531 Unknown [id number] 2.16.8 40.1.987563.3.579.2.531 Unknown [id number] 2.16.8 [id number] Social History Date Type Detail Facility Unknown if ever smoked [facility] Other Start: 07-06-1986 Sex Assigned At [facility] Other Start: 02-04-2022 Tobacco smoking status Heavy t obacco smoker (finding) [facility] [place] Tobacco smoking status Never [facility] [place] Start: 1950 Sex Assigned At Female F [facility] Start: 11-04-2023 Tobacco smoking stat us PAIS Smoker (finding) [facility] Functional Status Date Assessment Result Facility [...] present for entire encounter. Casandra Chopra D.O. [facility] Work Phone: [phone]) 623-342610-31-2023 Evaluation note* Encounter Date Diagnosis Assessment Notes Treatment Notes Treatment Clinical Notes Apr, Hematuria (ICD-10 - R31.9) [facility] Other 10-31-2023 Evaluation note* Encounter Date Diagnosis [...] with above medications as directed. Apr, Other long-term (current) drug therapy (ICD-10 - Z79.899) Apr, [...] him know. She has not been mulching. Gather Other 08-21-2023 Evaluation note* Encounter Date Diagnosis Assessment Notes Treatment Notes Treatment Clinical Notes Feb, Compression fracture of T8 vertebra with routine healing, subsequent encounter (ICD-10 - S22.060D) Gather Other 06-26-2023 Evaluation note* Encounter Date Diagnosis [...] cession. Will get MARLENE from pulmonolgy Dr eVnegas for continuity of care. Will order MRI [...] (ICD-10 - R26.81) Dec, Other [facility] reviewed Gather Other 04-25-2023 Evaluation note* Encounter Date Diagnosis [...] use above medications as needed. 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 Oct, COPD (chronic obstructive pulmonary [...] breaths out before she lifts anything heavy. Gather Other 03-13-2023 Evaluation note* Encounter Date Diagnosis Assessment Notes Treatment Notes Treatment Clinical Notes Sep, Hyperlipidemia (ICD-10 - E78.5) Gather Other 10-31-2022 Evaluation note* Encounter Date Diagnosis Assessment Notes Treatment Notes Treatment Clinical Notes Apr, Hematuria (ICD-10 - R31.9) Gather Other 08-04-2022 NoteChief Complaint consultation for ventral hernia HPI Staff 71 year old female presents on consultation from Dr. Chopra for ventral hernia. Reports she moved [place] object two months ago. Noted epigastric lump [...] Oral, Daily potassium (more content not included)...[facility]Comment [facility]:Result Comment: Electronically Signed By: SHARRI BECKER, Russell Valverde\Date and Time Signed: 02/06/22 10:42 [id number] Evaluation note* Encounter Date Diagnosis Assessment Notes [...] with above medication as needed. 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 Gather Other 10-06-2021 Evaluation note* Encounter Date Diagnosis [...] with above medication as needed. Apr, Other long-term (current) drug therapy (ICD-10 - Z79.899) Apr, Other She voices that if she does not take Cranberry tablets her urine becomes thick so she does take the supplement daily. She will be getting her second COVID-19 vaccine on 04-20-21. Gather Other 02-06-2013 History general Narrative - Reported* Type Description Date Medical History left shoulder & elbow problems Medical History 08/11/12 Cervical [place] [facility] [place] History 10/26/14 refused colonoscopy Medical History [...] natural 05/29/19 76 Hospitalization History natural 7 Gather Other 02-06-2013 History general Narrative - Reported* Type Description Date Medical History left shoulder & elbow problems Medical History 08/11/12 Cervical spine x[place] [facility] [place] Medical History 10/26/14 refused colonoscopy Medical History [...] 02/1977 Surgical History cataract surgery both eyes [facility] 2017 Surgical History Colonoscopy, Dr. Adama varma, needs repeat in 202406-09-2018 Hospitalization History above Hospitalization History natural 05/29/19 76 Hospitalization History natural 7 Gather Other 02-06-2013 History general Narrative - Reported* Type Description Date Medical History left shoulder & elbow problems Medical History 08/11/12 Cervical spine x-ray [facility] [place] Medical History 10/26/14 refused colonoscopy Medical History [...] natural 05/29/19 76 Hospitalization History natural 7 Gather Other 02-06-2013 History general Narrative - Reported* Type Description Date Medical History left shoulder & elbow problems Medical History 08/11/12 Cervical spine x-ray [facility] [place] Medical History 10/26/14 refused colonoscopy Medical History [...] natural 05/29/19 74 Hospitalization History natural 7 Gather Other evaluation + Plan note No data available for this section General Surgery [place] Evaluation noteNo InformationNort Bridestory Other Evaluation noteNo assessment information available [facility] Work Phone: Hospital Discharge instructions No data available for this section General Surgery [place] Progress note No data available for this section General Surgery [place] Summary Purpose Family History No Family History [...] Ear pain, left (H92. 02) Referral Organization [facility] Family Pepe Chen Referring Provider First Name Casandra Referring Provider Last Name Nav Referring Provider Specialty Family Prac amanda Referred Organization [facility] Referred Provider Beth Blanton Referred Address ,[place], [place],[address] Referred Provider Specialty Ear, Nose an d Throat Referral Priority Routine General Notes Eva Weaver 05/05/2023 10:59:36 AM > referral faxed thru [facility] with visit note and insurance card. pt understands she will be contacted to schedule this appt. Additional Source Comments INFORMATION SOURCE (unrecogn ized section and content) DATE CREATED AUTHOR 04/07/2019 [facility] DATE CREATED AUTHOR AUTHOR'S ORGANIZ ATION 03/01/2022 [facility] DATE CREATED AUTHOR AUTHOR'S ORGANIZ ATION 12/12/2022 [facility] DATE CREATED AUTHOR AUTHOR'S ORGANIZ ATION 03/29/2024 [facility] REASON FOR VISIT (unrecogniz [...] Cayden Samuel DO Primary Care Provider Active IPTO Musa Attending Provider Active Team Status: Inactive [...] BE BASED ON THE PRIMARY CLINICAL RECORDS. [facility] [employer] [facility]. provides no warranty or guarantee of the accuracy or completeness of information in this document.
[2024-04-02] MEDS: 0.9 % SODIUM CHLORIDE 1,000 ML 1000 ML IV (12:07)
--- NOTE | 2024-04-02 12:07 | ED_ITS ---
HPI - Abdominal Pain General Chief Complaint: Abdominal Pain Stated Complaint: VOMITING AND HERNIA PAIN Time Seen by Provider: 04/02/24 11:23 Source: patient Mode of arrival: walk-in Limitations: no limitations History of Present Illness HPI narrative: The patient is a 73-year-old female who is coming to us with a continuous nonspecific symptoms since December of this year, she was well evaluated for almost similar symptoms few days ago when she was diagnosed with possible gastritis and she also had a UTI signs, the patient still continue to take antibiotic and she does have some loose stool she is denying any abdominal pain at any time at the moment, mentioned that sometimes she would feel this cramp in her epigastric area but she does not have that at this moment. She also mentioned that she have retching only 1 time this morning although she did continue and took her breakfast with no difficulty She has been having loose stool for the last few days no abdominal pain , no fever no chills no other concerns Related Data Home Medications ?Medication ?Instructions ?Recorded ?Confirmed albuterol sulfate 90 mcg/actuation 2 puff inhalation Q4H PRN 03/29/24 03/29/24 aerosol inhaler shortness of breath or wheezing atorvastatin 10 mg tablet 10 mg PO DAILY 03/29/24 03/29/24 azathioprine 50 mg tablet (Imuran) 50 mg PO DAILY 03/29/24 03/29/24 cyanocobalamin (vitamin B-12) 1,000 mcg PO .QOD 03/29/24 03/29/24 1,000 mcg tablet etodolac 500 mg tablet 500 mg PO Q12H 03/29/24 03/29/24 fluticasone fur. 100 mcg-umeclid 1 inh inhalation DAILY 03/29/24 03/29/24 62.5 mcg-vilant 25 mcg inhalat.powder (Trelegy Ellipta) furosemide 20 mg tablet 20 mg PO DAILY 03/29/24 03/29/24 hydroxychloroquine 200 mg tablet 200 mg PO Q12H 03/29/24 03/29/24 ibandronate 150 mg tablet 150 mg PO .monthly 03/29/24 03/29/24 ipratropium bromide 21 mcg (0.03 2 spray intranasal Q12H 03/29/24 03/29/24 %) nasal spray pantoprazole 40 mg tablet,delayed 40 mg PO DAILY 03/29/24 03/29/24 release potassium chloride 10 mEq 10 meq PO DAILY 03/29/24 03/29/24 tablet,extended release Previous Rx's ?Medication ?Instructions ?Recorded cephalexin 500 mg capsule 500 mg PO Q8H 7 days #21 caps 03/29/24 famotidine 20 mg tablet (Pepcid) 20 mg PO BID #20 tabs 03/29/24 Allergies Allergy/AdvReac Type Severity Reaction Status Date / Time No Known Drug Allergies Allergy Verified 03/29/24 11:29 Review of Systems ROS Status of ROS 10 or more systems reviewed and unremark able except as noted in history and below PFSH PFSH Social History Little interest or pleasure in doing things: not at all Feeling down, depressed, or hopeless: not at all Exam Narrative Exam Narrative: Nurses notes and vital signs reviewed and patient is not hypoxic. General: Well-appearing and in no apparent distress. Skin: Warm, dry, no pallor noted. No rash. Head: Normocephalic, atraumatic. Neck: Supple, non-tender. Eye: Pupils are equal, round and EOMI. No scleral icterus. Ears, Nose, Mouth, and Throat: TM are clear, no nasal mucosal hypertrophy. Oral mucosa is moist, no posterior oropharynx erythema, uvula is mid-line Cardiovascular: Regular Rate and Rhythm without murmur, gallop or rub. Respiratory: No accessory muscle use or respiratory distress. Lungs are clear to auscultation, no wheezing, rales or rhonchi Chest Wall: no tenderness Back: No midline thoracic or lumbar vertebral tenderness. No CVA tenderness Musculoskeletal: normal ROM, no calf or popliteal tenderness, no lower extremity edema/swelling GI: Abdomen is soft, non-distended. Normal bowel sounds. No masses appreciated. No tenderness to palpation. No rebound, guarding, or rigidity noted. Neurological: A&O x4. No cranial nerve dysfunction observed. No truncal ataxia. Moves all extremities. Sensation intact. Psychiatric: Cooperative and interactive. Normal mood and affect. Constitutional Vital Signs, click to edit/add: Last Vital Signs Temp 97.6 F 04/02/24 11:17 Pulse 93 H 04/02/24 15:21 Resp 18 04/02/24 15:21 BP 99/69 04/02/24 15:21 Pulse Ox 97 04/02/24 15:21 O2 Del Method Room Air 04/02/24 15:21 Course Vital Signs Vital signs: Vital Signs Temperature 97.6 F 04/02/24 11:17 Pulse Rate 96 H 04/02/24 11:17 Respiratory Rate 24 H 04/02/24 11:17 Blood Pressure 129/79 04/02/24 11:17 Pulse Oximetry 96 04/02/24 11:17 Oxygen Delivery Method Room Air 04/02/24 11:17 Temperature 97.6 F 04/02/24 11:17 Pulse Rate 93 H 04/02/24 15:21 Respiratory Rate 18 04/02/24 15:21 Blood Pressure 99/69 04/02/24 15:21 Pulse Oximetry 97 04/02/24 15:21 Oxygen Delivery Method Room Air 04/02/24 15:21 MDM - Abdominal Pain MDM Narrative Medical decision making narrative: It was noted again that the patient have no abdominal pain at all She did mention that she vomited at home but she did not have any nausea or vomiting here she was provided only with IV fluid Her EKG in the ER showing sinus rhythm with a heart rate of [address] elevation or depression The patient had a CAT scan of the abdomen that shows fluid-filled stomach in addition to some gas distended rectum she also had a fluid-filled gallbladder with no signs of infection Ultrasound of the gallbladder shows similar picture of fluid filled gallbladder--- I did speak with Dr. Reyes general surgery service from [facility] and that he did mention that this picture right now does not require surgery but usually hydration and evaluation by gastroenterology as needed The patient again does not have any abdominal pain she has continued to have no nausea at the moment The patient after explained to her that she would benefit from gastroenterology evaluation and hydration in addition to evaluation by general surgery in case needed and I did advise her of transfer to [facility] for further evaluation specially with the recurring presentation----the patient mentioned that she is going to see her primary care doctor next week and he also referred her to gastroenterology who she will be seeing next week and she refused to be transferred to [facility] at this moment to be evaluated The patient did had endoscopy before where they told her that she have hernia and she have a history of GERD The patient presentation has been going on at least since December she does have some leukocytosis which could be reactive secondary to the gastritis but there i s no abdominal pain or any signs of infection at the moment but the fluid-filled gallbladder therefore need to be evaluated within few days and the patient was instructed about that since she does not want me to transfer to [facility] The patient again is refusing the transfer at the moment but since she is going to see her primary care doctor and gastroenterology next week the patient was instructed to come back in case of any abdominal pain fever or any other concerns and she understand that The patient is to follow up with primary care physician in next 2-3 days or to return to the emergency department should any of the signs or symptoms worsen or new symptoms develop. The patient agrees with the following Diagnosis and Treatment plan and the patient will be discharged home. Lab Data Labs: Lab Results 04/02/24 Range/Units 11:34 WBC 15.8 H (4.0-11.0) 10^3/uL RBC 4.57 (4.20-5.40) 10^6/uL Hgb 14.4 (12.0-16.0) g/dL Hct 42.7 (36.0-48.0) % MCV 93.4 (81.0-99.0) fL MCH 31.5 (26.7-34.0) pg MCHC 33.7 (29.9-35.2) g/dL RDW 13.7 (11.0-15.0) % Plt Count 241 (150-450) 10^3/uL MPV 9.4 L (9.5-13.5) fL Neut % (Auto) 84.2 H (43.0-75.0) % Lymph % (Auto) 7.1 L (20.5-60.0) % Bent % (Auto) 6.9 (1.7-12.0) % Eos % (Auto) 0.6 L (0.9-7.0) % Baso % (Auto) 0.8 (0.2-2.0) % Neut # (Auto) 13.4 H (1.4-6.5) 10^3/uL Lymph # (Auto) 1.1 L (1.2-3.8) 10^3/uL Bent # (Auto) 1.1 H (0.3-0.8) 10^3/uL Eos # (Auto) 0.1 (0.0-0.7) 10^3/uL Baso # (Auto) 0.1 (0.0-0.1) 10^3/uL Abs Immat Gran (auto) 0.06 H (0.00-0.03) 10^3/uL Imm/Tot Granulo (auto) 0.4 (0.0-0.5) % Sodium 138 (136-145) mmol/L Potassium 3.9 (3.5-5.1) mmol/L Chloride 102 (98-107) mmol/L Carbon Dioxide 25.9 (21.0-32.0) mmol/L Anion Gap 14.0 BUN 13.0 (7.0-18.0) mg/dL Creatinine 0.75 (0.55-1.02) mg/dL Est GFR ( Amer) >60 (>=60) Est GFR (Non-Af Amer) >60 (>=60) BUN/Creatinine Ratio 17.3 Glucose 100 (74-106) mg/dL Calcium 9.6 (8.5-10.1) mg/dL Total Bilirubin 0.5 (0.2-1.0) mg/dL AST 35 (15-37) U/L ALT 41 (14-59) U/L Alkaline Phosphatase 45 L (46-116) U/L Troponin I High Sens 10.7 (4.0-51.3) pg/mL Total Protein 7.3 (6.4-8.2) g/dL Albumin 3.9 (3.4-5.0) g/dL Globulin 3.4 g/dL Albumin/Globulin Ratio 1.1 Discharge Plan Discharge Chief Complaint: Abdominal Pain Clinical Impression: Nausea & vomiting Patient Disposition: Home, Self-Care Time of Disposition Decision: 15:13 Condition: Good Prescriptions / Home Meds: No Action azathioprine [Imuran] 50 mg tablet 50 mg PO DAILY ibandronate 150 mg tablet 150 mg PO .monthly hydroxychloroquine 200 mg tablet 200 mg PO Q12H etodolac 500 mg tablet 500 mg PO Q12H furosemide 20 mg tablet 20 mg PO DAILY potassium chloride 10 mEq tablet extended release 10 meq PO DAILY ipratropium bromide 21 mcg (0.03 %) spray,non-aerosol 2 spray INTRANASAL Q12H Trelegy Ellipta 100-62.5-25 mcg blister with device 1 inh inhalation DAILY atorvastatin 10 mg tablet 10 mg PO DAILY albuterol sulfate 90 mcg/actuation HFA aerosol inhaler 2 puff INHALATION Q4H PRN (Reason: shortness of breath or wheezing) cyanocobalamin (vitamin B-12) 1,000 mcg tablet 1,000 mcg PO .QOD pantoprazole 40 mg tablet,delayed release (DR/EC) 40 mg PO DAILY famotidine [Pepcid] 20 mg tablet 20 mg PO BID Qty: 20 0RF cephalexin 500 mg capsule 500 mg PO Q8H 7 Days Qty: 21 0RF Print Language: Guyanese Instructions: Acute Nausea and Vomiting (DC) Referrals: CASANDRA CHOPRA [Primary Care Provider] - 1 week Discharge Date/Time: 04/02/24 15:23
[2024-04-02 12:29] LABS: Alanine Aminotransferase 41 U/L (14-59); Albumin Globulin Ratio 1.1; Albumin Level 3.9 g/dL (3.4-5.0); Alkaline Phosphatase 45 U/L (46-116); Aspartate Amino Transferase 35 U/L (15-37); BUN Creatinine Ratio 17.3; Bilirubin Total 0.5 mg/dL (0.2-1.0); Calcium 9.6 mg/dL (8.5-10.1); Carbon Dioxide 25.9 mmol/L (21.0-32.0); Chloride 102 mmol/L (98-107); Estimated GFR (African America >60 (>=60); Estimated GFR (Non-African Ame >60 (>=60); Globulin 3.4 g/dL; Glucose 100 mg/dL (74-106); Potassium 3.9 mmol/L (3.5-5.1); Sodium 138 mmol/L (136-145); Total Protein 7.3 g/dL (6.4-8.2); Troponin I High Sensitivity 10.7 pg/mL (4.0-51.3)
--- NOTE | 2024-04-02 12:57 | US_ITS ---
The [address] [address] Patient Name: GENNA GALVAN MRN: [id number] date: 1950 Sex: F Assigned Patient Location: ER Current Patient Location: ER Accession/Order Number: [id number] Exam Date: 04/02/2024 13:00 Report Date: 04/02/2024 14:40 At the request of: STEF MICHEL Procedure: US right upper quadrant EXAM: US right upper quadrant HISTORY: RUQ pain COMPARISON: CT abdomen pelvis 04/02/2024. TECHNIQUE: Ultrasound right upper quadrant including Germain scale and color Doppler imaging. FINDINGS: Distended fluid-filled gallbladder is seen on CT, length approximately 10.1 cm. Several small echogenic foci along the gallbladder wall dependent portion. These are not mobile do not shadow and are not typical of calculi. No definite shadowing calculus seen. No wall thickening or edema. Patient not tender when scanned over the gallbladder. No pericholecystic fluid. No biliary dilatation, common duct diameter 4-5 mm. Homogeneous liver without focal lesion. No ascites or free fluid. Visualized pancreas unremarkable. Pelvic veins, portal vein and IVC patent, normal hepatopedal flow. Right kidney unremarkable without hydronephrosis. US/US right upper quadrant IMPRESSION: 1. Prominent fluid-filled gallbladder as seen in CT without shadowing calculi or evidence of cholecystitis. 2. Several tiny echogenic foci along the dependent gallbladder wall are nonspecific, could be tiny polyps. Do not move within the lumen. Electronically authenticated by: MAISHA TRACY Date: 04/02/2024 14:40
== END 2024-04-02 15:23 | disposition home or self-care (01) ==
PROVIDERS: Emergency Provider Emergency Medicine; PCP Family Medicine
DX: R11.2 Nausea with vomiting, unspecified (principal); K43.9 Ventral hernia without obstruction or gangrene; K31.89 Other diseases of stomach and duodenum
CPT/HCPCS: 36415; 74176; 76705; 80053; 84484; 85025; 93005; 96360; 99285

== ENCOUNTER 2024-04-06 09:14 | Outpatient (OUT) | payer MEDICARE, SELFPAY ==
[2024-04-06 09:59] LABS: Basophils Absolute Auto 0.1 10^3/uL (0.0-0.1); Basophils Percent Auto 1.2 % (0.2-2.0); Eosinophils Absolute Auto 0.1 10^3/uL (0.0-0.7); Eosinophils Percent Auto 0.8 % (0.9-7.0); Hematocrit 39.3 % (36.0-48.0); Immature Granulocytes Abs Auto 0.05 10^3/uL (0.00-0.03); Immature Granulocytes Pct Auto 0.6 % (0.0-0.5); Lymphocytes Absolute Auto 1.2 10^3/uL (1.2-3.8); Lymphocytes Percent Auto 12.9 % (20.5-60.0); Mean Corpuscular HGB Conc 33.1 g/dL (29.9-35.2); Mean Corpuscular Hemoglobin 31.5 pg (26.7-34.0); Mean Corpuscular Volume 95.2 fL (81.0-99.0); Mean Platelet Volume 9.6 fL (9.5-13.5); Monocytes Absolute Auto 0.7 10^3/uL (0.3-0.8); Monocytes Percent Auto 7.6 % (1.7-12.0); Neutrophils Absolute Auto 6.9 10^3/uL (1.4-6.5); Neutrophils Percent Auto 76.9 % (43.0-75.0); Platelet Count 232 10^3/uL (150-450); Red Blood Count 4.13 10^6/uL (4.20-5.40); Red Cell Distribution Width 13.6 % (11.0-15.0); White Blood Count 8.9 10^3/uL (4.0-11.0)
[2024-04-06 10:11] LABS: Bilirubin Urine MODERATE (NEGATIVE); Blood Urine NEGATIVE (NEGATIVE); Clarity Urine CLEAR (CLEAR); Color Urine LT. YELLOW (YELLOW); Glucose Urine UA NEGATIVE (NEGATIVE); Ketones Urine 15 mg/dL (NEGATIVE); Leukocyte Esterase Urine LARGE (NEGATIVE); Nitrite Urine NEGATIVE (NEGATIVE); Protein Urine NEGATIVE (NEG/TRACE); Urobilinogen Urine 0.2 EU/dL (0.2-1.0)
[2024-04-06 10:22] LABS: Erythrocyte Sedimentation Rate 35 mm/hr (<=30)
[2024-04-06 10:33] LABS: Bacteria Urine TRACE #/HPF (NONE SEEN); Mucus Urine NONE SEEN (NONE SEEN); Squamous Epithelial Cell Urine FEW #/LPF (NONE/RARE); Transitional Epi Cells Urine FEW #/LPF (NONE SEEN); WBC Urine 75-100 #/HPF (NONE SEEN)
[2024-04-06 10:34] LABS: Cast Seen? NONE SEEN #/LPF (NONE SEEN); Crystals Seen? None Seen #/HPF (None Seen)
[2024-04-06 11:41] LABS: Alanine Aminotransferase 35 U/L (14-59); Albumin Globulin Ratio 1.2; Albumin Level 3.7 g/dL (3.4-5.0); Alkaline Phosphatase 41 U/L (46-116); Anion Gap 15.9; Aspartate Amino Transferase 35 U/L (15-37); BUN Creatinine Ratio 15.1; Bilirubin Total 0.4 mg/dL (0.2-1.0); Calcium 8.6 mg/dL (8.5-10.1); Carbon Dioxide 23.5 mmol/L (21.0-32.0); Chloride 100 mmol/L (98-107); Estimated GFR (African America >60 (>=60 mL/min/1.73m^2); Estimated GFR (Non-African Ame >60 (>=60 mL/min/1.73m^2); Globulin 3.1 g/dL; Glucose 77 mg/dL (74-106); Potassium 3.4 mmol/L (3.5-5.1); Sodium 136 mmol/L (136-145); Total Protein 6.8 g/dL (6.4-8.2)
[2024-04-07 08:14] LABS: Complement C3, Serum 112 mg/dL (82-167); Complement C4, Serum 24 mg/dL (12-38)
[2024-04-07 15:12] LABS: Complement, Total (CH50) >60 U/mL (>41)
== END 2024-04-06 09:15 | disposition home or self-care (01) ==
LOC: LAB 09:15
PROVIDERS: PCP Family Medicine; Visit Provider Internal Medicine Rheumatology
DX: E55.9 Vitamin D deficiency, unspecified (principal)
CPT/HCPCS: 36415; 80053; 81001; 82306; 85025; 85652; 86160; 86162

== ENCOUNTER 2024-05-09 07:44 | Outpatient (OUT) | payer MEDICARE, SELFPAY ==
[2024-05-09 08:21] LABS: Bilirubin Urine MODERATE (NEGATIVE); Blood Urine NEGATIVE (NEGATIVE); Clarity Urine CLEAR (CLEAR); Color Urine LT. YELLOW (YELLOW); Glucose Urine UA NEGATIVE (NEGATIVE); Ketones Urine NEGATIVE (NEGATIVE); Leukocyte Esterase Urine SMALL (NEGATIVE); Nitrite Urine NEGATIVE (NEGATIVE); Protein Urine NEGATIVE (NEG/TRACE); Specific Gravity Urine <=1.005 (1.005-1.025); Urobilinogen Urine 0.2 EU/dL (0.2-1.0)
[2024-05-09 08:22] LABS: Erythrocyte Sedimentation Rate 32 mm/hr (<=30)
[2024-05-09 08:32] LABS: Bacteria Urine TRACE #/HPF (NONE SEEN); Cast Seen? NONE SEEN #/LPF (NONE SEEN); Crystals Seen? None Seen #/HPF (None Seen); Mucus Urine NONE SEEN (NONE SEEN); RBC Urine 0-2 #/HPF (0-2); Squamous Epithelial Cell Urine FEW #/LPF (NONE/RARE)
[2024-05-09 08:36] LABS: Basophils Absolute Auto 0.1 10^3/uL (0.0-0.1); Basophils Percent Auto 1.9 % (0.2-2.0); Eosinophils Absolute Auto 0.2 10^3/uL (0.0-0.7); Eosinophils Percent Auto 2.8 % (0.9-7.0); Hemoglobin 12.5 g/dL (12.0-16.0); Immature Granulocytes Abs Auto 0.02 10^3/uL (0.00-0.03); Immature Granulocytes Pct Auto 0.4 % (0.0-0.5); Lymphocytes Percent Auto 18.8 % (20.5-60.0); Mean Corpuscular HGB Conc 32.1 g/dL (29.9-35.2); Mean Corpuscular Hemoglobin 30.9 pg (26.7-34.0); Mean Corpuscular Volume 96.5 fL (81.0-99.0); Monocytes Absolute Auto 0.5 10^3/uL (0.3-0.8); Monocytes Percent Auto 9.7 % (1.7-12.0); Neutrophils Absolute Auto 3.6 10^3/uL (1.4-6.5); Neutrophils Percent Auto 66.4 % (43.0-75.0); Platelet Count 230 10^3/uL (150-450); Red Blood Count 4.04 10^6/uL (4.20-5.40); Red Cell Distribution Width 13.5 % (11.0-15.0); White Blood Count 5.4 10^3/uL (4.0-11.0)
[2024-05-09 11:08] LABS: Alanine Aminotransferase 24 U/L (14-59); Albumin Globulin Ratio 1.1; Albumin Level 3.7 g/dL (3.4-5.0); Alkaline Phosphatase 40 U/L (46-116); Anion Gap 15.2; Aspartate Amino Transferase 23 U/L (15-37); BUN Creatinine Ratio 17.9; Bilirubin Total 0.4 mg/dL (0.2-1.0); Calcium 8.9 mg/dL (8.5-10.1); Carbon Dioxide 24.9 mmol/L (21.0-32.0); Chloride 103 mmol/L (98-107); Estimated GFR (African America >60 (>=60 mL/min/1.73m^2); Estimated GFR (Non-African Ame >60 (>=60 mL/min/1.73m^2); Globulin 3.3 g/dL; Glucose 87 mg/dL (74-106); Potassium 4.1 mmol/L (3.5-5.1); Sodium 139 mmol/L (136-145)
[2024-05-10 08:13] LABS: Complement C3, Serum 119 mg/dL (82-167); Complement C4, Serum 21 mg/dL (12-38)
[2024-05-10 11:10] LABS: Complement, Total (CH50) 59 U/mL (>41)
== END 2024-05-09 07:45 | disposition home or self-care (01) ==
LOC: LAB 07:47
PROVIDERS: PCP Family Medicine; Visit Provider Internal Medicine Rheumatology
DX: M15.0 Primary generalized (osteo)arthritis (principal); M35.1 Other overlap syndromes; Z79.899 Other long term (current) drug therapy
CPT/HCPCS: 36415; 80053; 81001; 85025; 85652; 86160; 86162

== ENCOUNTER 2024-05-18 08:00 | Outpatient (OUT) | payer MEDICARE, SELFPAY ==
--- OUTSIDE RECORDS SUMMARY | 2024-05-18 08:12 | XMS_ITS | CCD ---
Author Organization [facility] CliniSywy Care Team Providers Care Clinical Scientist Name Role Phone Casandra Chopra Unavailable Casandra [...] SebastianAngelicah Unavailable DO Casandra Chopra Attending Provider [phone] NO FAMILY, PHYSICIAN Primary Care Provider Unava ilable DO Domingo George Attending Provider DO Casandra Chopra Primary Care Provider [phone] SENIA Gómez Emergency Provider [phone] Casandra Chopra Primary Care Unavailable Domingo George Admitting Unavailable Domingo George Attending Unavailable Casandra Chopra Admitting Unavailable Casandra Chopra Primary Care Unavailable Casandra Chopra Attending Unavailable NO FAMILY, PHYSICIAN Primary Care Unavailable Casandra Chopra Admitting Unavailable Casandra Chopra Attending Unavailable Casandra Chopra Primary Care Unavailable Sabrina Gómez Admitting Unavailable Sabrina Gómez Attending Unavailable NO FAMILY, PHYSICIAN Primary Care Unavailable Domingo George Admitting Unavailable Domingo George Attending Unavailable Allergies Allergy Classification Reported Allergen(s) Allergy Type Date of Onset Reaction(s) Facility (20 sources) buPROPion; Translations: [Bupropion] Drug Allergy Anxiety (finding) [employer] Other (20 sources) traMADol Drug Allergy 02-16-20 24 constipation [facility] (1 source) Acetaminophen / HYDROcodone Drug Allergy [facility] Repository (8 sources) buPROPion; Translations: [bupropion] Drug Allergy 02-16-20 made anxiety worse was prescribed by Dr. Venegas [facility] (2 sources) azaTHIOprine Drug Allergy 04-19-20 Gastrointestinal Upset [facility] (2 sources) Sulfamethizole Drug Allergy 04-19-20 Abdominal Pain [facility] (1 source) traMADol Drug Allergy 04-06-20 [facility] Repository Medications Current Medications Medication Drug Class(es) Dates Sig (Normalized) Sig (Original) 8 hr acetaminophen 650 mg extended release oral tablet (20 sources) Start: 11-03-2023 Acetaminophen (Tylenol Arthritis Pain) 650 mg tablet extended release Active 1300 MG PO Every 8 hours November 03, 2023 12:00am take 2 tablets by mo uth every eight hours as needed Tylenol 8 Hour Arthritis Pain 650 MG 2 tablets as needed Orally every 8 hrs Active [id number] actuat albuterol 0.09 mg/actuat metered dose [...] Active ascorbic acid 500 mg oral tablet (20 sources) Vitamin C Start: 11-03-2023 take 500 [...] Active cyclobenzaprine hydrochloride 10 mg oral tablet (6 sources) Muscle Relaxant Start: 02-23-2024 take 10 mg [...] Butler Start: 09-19-2019 take 1 capsule by mo [facility] every twenty-four hours Colace 100 MG 1 capsule Orally Once a day prn Sep, Not-Taking etodolac 500 mg oral tablet (20 sources) Nonsteroidal Anti-inflammatory Drug Start: 04-06-2024 take 500 mg by mouth twice daily Etodolac Active 500 MG PO Twice daily April 06, 2024 12:00am Start: 11-04-2023 End: 04-06-2024 take 400 mg by mouth twice daily Etodolac Discontinued 400 MG PO Twice daily November 04, 2023 12:00am April 06, 2024 8:21am Start: 06-20-2019 Etodolac 400 M G 1 tablet Orally bid - Dr. Bell Jun, Active Fwskkezgrif-Zmipyxuhe-Krbqsb er (13 sources) Anticholinergic, Corticosteroid, beta2-Adrenergic Agonist Start: 02-23-2024 Kkkqgdtmgsi-Mkewcabmr-Fncatk er (Trelegy Ellipta) 100-62.5-25 mcg blister with device Active 1 INH INHALATION Daily February 23, 2024 12:00am Start: 11-03-2023 End: 04-06-2024 Pcjfqdlujlt-Huuiuhwbq-Qxzfrl er (Trelegy Ellipta) 100-62.5-25 mcg blister with device Discontinued 1 INH INHALATION Daily November 03, 2023 12:00am April 06, 2024 8:25am Start: 11-03-2023 Fluticasone-Um eclidin-Vilanter (Trelegy Ellipta) 100-62.5-25 mcg blister with device Active 1 INH INHALATION Daily November 03, 2023 12:00am folic acid 0.4 mg / vitamin b12 0.5 mg oral tablet (6 sources) Vitamin B12 Start: 02-23-2024 take 1 tablet by mouth once daily Vitamin Q50-Hdbaf Acid Active 1 TAB PO Daily February 23, 2024 12:00am administer with a meal furosemide 20 mg oral tablet (20 sources) Loop Diuretic Start: 04-06-2024 take 20 mg by mouth once daily Furosemide Active 20 MG PO Daily April 06, 2024 12:00am Start: 02-16-2024 End: 02-23-2024 take 1 tablet [...] Ordered ibandronic acid 150 mg oral tablet (19 sources) Bisphosphonate Start: 11-04-2023 Ibandronate Ac tive [...] sources) Anticholinergic Start: 11-03-2023 End: 11-04-2023 Ipratropium Blue Eye Active 2 SPRAY INTRANASAL Twice daily November 04, 2023 9:04am Start: 01-30-2022 ipratropium na jazmine 0.03% spray 2 spray(s), Nasal, BID, Refill(s) 0 Start Date: 01/30/22 Status: Ordered take 2 spray(s) nasa l route twice daily Ipratropium Blue Eye 0.03 % 2 sprays in each nostril Nasally Twice a day Active methotrexate 2.5 mg oral tablet (6 sources) Folate Analog Metabolic Inhibitor Start: 02-23-2024 take [...] with food for 7 day(s) Apr, Active ondansetron 4 mg disintegrating oral tablet (5 sources) Serotonin-3 Receptor Antagonist Start: 04-04-2024 take 4 mg by mouth three times daily Ondansetron Active 4 MG PO Three times daily 9 3 April 04, 2024 12:00am pantoprazole 40 mg delayed release oral tablet [...] Start: 01-30-2022 take 1 capsule by mo [facility] once daily potassium chloride 10 mEq Cap-ER 10 mEq = 1 cap(s), Oral, Daily, Refills(s) 0 Start Date: 01/30/22 Status: Ordered take 1 tablet by trevor once daily at mealtime Potassium Chloride ER [...] Refill(s) 0 Start Date: 01/30/22 Status: Ordered vitamin b12 1 mg oral tablet (20 sources) Vitamin B12 Start: 04-15-2024 take 1 tablet by mouth every other day Cyanocobalamin (Vitamin B-12) Active 0 .ROUTE .COMPLEX April 15, 2024 10:38am TAKE 1 TABLET BY MOUTH EVERY OTHER DAY Start: 04-15-2024 End: 04-15-2024 take 1 tablet by mouth every other day Cyanocobalamin (Vitamin B-12) (Vitamin B-12) 1,000 mcg tablet Discontinued 1000 MCG PO .QOD April 15, 2024 12:00am April 15, 2024 10:38am Start: 11-04-2023 End: 02-23-2024 take 1000 ug [...] 1 TABLET BY MOUTH EVERY OTHER DAY Vitamin B12 1000 MCG (4 sources) Start: 05-05-2023 take 1 tablet by trevor th every other day Vitamin B12 1000 MCG 1 tablet Orally qod for 30 days Apr, Active Completed/Discontinued Medications Medication Drug Class(es) Dates Sig (Normalized) Sig (Original) Albuterol 90 MCG/ACT (2 sources) Albuterol 90 MCG/ACT as directed Inhalation Not-Taking amoxicillin 875 mg / clavulanate 125 mg oral tablet (7 sources) Penicillin-class Antibacterial Start: 12-28-2023 End: 02-02-2024 [...] once daily Atorvastatin Discontinued 0 .ROUTE .COMPLEX 90 September 07, 2023 12:08pm November 03, 2023 [...] Status: Ordered azaTHIOprine 50 mg oral tablet (11 sources) Purine Antimetabolite Start: 04-06-2024 End: 04-06-2024 take 50 mg by mouth once daily Azathioprine Discontinued 50 MG PO Daily April 06, 2024 12:00am April 06, 2024 8:58am Start: 02-02-2024 End: 02-23-2024 take 50 mg by mouth once daily Azathioprine Discontinu ed 50 MG PO Daily February 02, 2024 12:00am February 23, 2024 8:33am ordered by Dr. Bell B12 (7 sources) Start: 11-02-2023 End: 11-02-2023 take 1 tablet by mouth every other day B12 Discontinued 1 TAB PO .qod November 02, 2023 12:00am November 02, 2023 11:48am benzonatate 100 mg oral capsule (2 sources) Non-narcotic Antitussive Start: 09-17-2020 take 2 capsules by mouth every eight hours Tessalon Perles 100 MG 2 capsules Orally Three times a day Sep, Not-Taking Ketorolac (17 sources) Nonsteroidal Anti-inflammatory Drug, Cyclooxygenase Inhibitor Start: 11-21-2016 Toradol per 15 mg November, 2 cc lidocaine 0.05 mg/mg medicated patch (16 sources) Antiarrhythmic, Amide Local Anesthetic Start: 11-04-2023 End: 02-16-2024 Lidocaine Discontinued 1 PATCH TOPICAL Daily November 04, 2023 12:00am February 16, 2024 9:58am [employer] patch remove after 12 hours Externally Once a day; Note: Source Status: Takingprn; Provider: Mar Chávez Start: 12-29-2022 Lidocaine 5 % 1 patch remove after 12 hours Externally Once a day prn Dec, Active methylPREDNISolone 4 mg oral tablet (20 sources) Corticosteroid Start: 02-16-2024 End: 02-23-2024 take 1 tablet by mouth once daily Methylprednisolone (Medrol) 4 mg tablet Discontinued 4 MG PO Daily February 16, 2024 12:00am February 23, 2024 8:32am take 1 tablet by mouth every twe lve hours Medrol 4 MG 1 tablet with food or milk Orally every 12 hrs prn Active sulfamethoxazole 800 mg / trimethoprim 160 mg oral tablet (4 sources) Dihydrofolate Reductase Inhibitor Antibacterial, Sulfonamide Antimicrobial Start: 04-06-2024 End: 04-06-2024 take 1 tablet by mouth once daily Sulfamethoxazole-Trimethoprim Discontinued TAB PO Daily April 06, 2024 12:00am April 06, 2024 8:45am Problems Active Problems Problem Classification Problem Date Documented Da te Episodic/Chronic Abdominal hernia (12 sources) Obstructed incisional ventral hernia; Translations: [Other and unspecified ventral hernia with obstruction, without gangrene] Onset: 2 Episodic Abdominal pain (15 sources) Epigastric pain; Translations: [Epigastric pain] Onset: 2 Episodic Administrative/social admission (20 sources) Dietary management surveillance; Translations: [Dietary counseling and surveillance] Episodic Anxiety disorders (19 sources) Mixed anxiety and depressive disorder; Translations: [Other specified anxiety disorders] Chronic Chronic obstructive pulmonary disease and bronchiectasis (20 sources) Chronic obstructive lung disease; Translations: [Chronic obstructive pulmonary disease, unspecified] Onset: 1 Resolved: 2 Chronic Deficiency and other anemia (7 sources) Anemia; Translations: [Anemia, unspecified] 11-04-2023 Episodic Deficiency and other anemia (7 sources) Anemia, unspecified; Translations: [Anemia, unspecified] 02-16-2024 Episodic Diseases of white blood cells (8 sources) Leukocytosis; Translations: [Elevated white blood cell count, unspecified] 04-06-2024 Chronic Disorders of lipid metabolism (20 sources) Hyperlipidemia; Translations: [Hyperlipidemia, unspecified] Onset: 1 Resolved: 2 Chronic Disorders of teeth and jaw (1 source) Jaw pain Episodic Esophageal disorders (6 sources) Gastroesophageal reflux disease; Translations: [Gastro-esophageal reflux disease without esophagitis] 02-04-2022 Chronic Fracture of upper limb (19 sources) Closed fracture of metacarpal bone; Translations: [Unspecified fracture of unspecified metacarpal bone, subsequent encounter for fracture with malunion] Episodic Gastritis and duodenitis (20 sources) Gastritis; Translations: [Gastritis, unspecified, without bleeding] Onset: 1 Resolved: 2 Episodic Genitourinary symptoms and ill-defined conditions (20 sources) Biliuria; Translations: [Hematuria, unspecified] Onset: 1 Resolved: 2 Episodic Headache; including migraine (19 sources) Migraine; Translations: [Migraine, unspecified, not intractable, without status migrainosus] Chronic Malaise and fatigue (18 sources) Fatigue; Translations: [Other fatigue] 02-16-2024 Episodic Nausea and vomiting (9 sources) Nausea and vomiting; Translations: [Nausea with vomiting, unspecified] Onset: 4 04-06-2024 Episodic Osteoarthritis (20 sources) Osteoarthritis; Translations: [Unspecified osteoarthritis, unspecified site] Onset: 3 02-04-2022 Chronic Osteoporosis (5 sources) Age-related osteoporosis without current pathological fracture; Translations: [AGE-REL OSTEOPOR W/O CURR PATH FX] Onset: 2 Chronic Other aftercare (5 sources) Other shelter (current) drug therapy; Translations: [Other shelter (current) drug therapy Z79.899] Onset: 1 Resolved: 2 Episodic Other aftercare (7 sources) Patient encounter status; Translations: [Other manager terminal (current) drug therapy] 11-04-2023 Episodic Other bone [...] source) Otalgia, left ear Episodic Other fractures (8 sources) Compression fracture of thoracic spine; Translations: [...] Translations: [Constipation, unspecified] Episodic Other gastrointestinal disorders (7 sources) Diarrhea; Translations: [Diarrhea, unspecified] 02-16-2024 Episodic Other gastrointestinal disorders (12 sources) Diarrhea, unspecified; Translations: [Diarrhea] Onset: 4 02-16-2024 Episodic Other hematologic conditions (5 sources) Other specified diseases of blood and blood-forming organs; Translations: [Macrocytosis] Chronic Other hematologic conditions (7 sources) Macrocytosis; Translations: [Other specified diseases of [...] on feet Episodic Other non-traumatic joint disorders (15 sources) Pain in unspecified joint; Translations: [Pain in joint, multiple sites] Onset: 1 Resolved: 2 Episodic Other non-traumatic joint disorders (7 sources) Multiple joint pain; Translations: [Pain in unspecified joint] 11-04-2023 Episodic Other non-traumatic joint disorders (15 sources) Pain in right knee; Translations: [Right knee pain] Onset: 4 02-15-2024 Episodic Other non-traumatic joint disorders (7 sources) Pain in left shoulder; Translations: [Left [...] Episodic Other nutritional; endocrine; and metabolic disorders (7 sources) Weight loss; Translations: [Abnormal weight loss] 02-16-2024 Episodic Other nutritional; endocrine; and metabolic disorders (7 sources) Abnormal weight loss; Translations: [Loss of [...] lower extremity 02-04-2022 Episodic Residual codes; unclassified (7 sources) Edema; Translations: [Edema, unspecified] 11-04-2023 Episodic [...] sclerosis, unspecified; Translations: [Scleroderma] Onset: 2 Chronic Urinary tract infections (13 sources) Cystitis, unspecified without hematuria; Translations: [Cystitis] Onset: 2 Episodic Varicose veins of lower extremity (20 sources) Varicose veins of lower extremity; Translations: [Asymptomatic varicose veins of left lower extremity] 01-30-2022 Episodic Past or Other Problems Problem Classification Problem Date Documented Da te Episodic/Chronic Other circulatory disease (1 source) Hypotension, unspecified [...] HX MALIGNANT NEOPLASM OVARY] Onset: 04-15-2022 Episodic Results Test Name Value Interpretation Reference Range Facility XR acute abdomen serieson XR acute abdomen series [facility] [place] [address] XRay Report Signed Patient: Genna Herrera MR#: [id number] 52 : 1950 Acct:[id number] Age/Sex: 73 / F ADM Date: 04/14/24 Loc: XD Room: Type: [facility] Attending Dr: Casandra Chopra DO Copies to: Casandra Chopra DO Ordering Provider: Casandra Chopra DO Date of Service: 04/14/24 XR/XR acute abdomen series: R19.7 - Diarrhea, unspecified Acute abdominal series COMPARISON: None HISTORY: Reaction to medication. No bowel movement THORAX: No acute chest findings. Cervical spine fixation hardware. FREE AIR: Supine position limits assessment BOWEL: No gaseous intestinal distention. STOOL: Moderate constipation. RENAL STONES: No significant stones present. VASCULAR CALCIFICATIONS: Unremarkable SOFT TISSUE: Unremarkable BONES: Extensive lumbar degeneration. Mild scoliosis. POSTSURGICAL CHANGES: None XR/XR acute abdomen series IMPRESSION: Moderate constipation. No acute chest findings. Impression dictated by: Randall Pierre M.D.04/14/2024 3:18 PM Dictation Location: [place] [address] Transcribed By: [facility] 04/14/24 151 Dictated By: Randall Pierre DO 04/14/24 1517 Signed By: 04/14/24 1518 Normal [facility] Basophils Auto (Bld) [#/Vol] on 04-06-2024 Basophils (Bld) [#/Vol] 0.1 10 3/uL 0.0-0.1 [facility] Basophils/100 WBC Auto (Bld) on 04-06-2024 Basophils/100 WBC (Bld) 1.2 % 0.2-2.0 [facility] Eosinophils/100 WBC Auto (Bl d)on 04-06-2024 Eosinophils/100 WBC (Bld) 0.8 % Low 0.9-7.0 [facility] Erythrocyte distribution wid th Auto (RBC) [Ratio]on 04-06-2024 Erythrocyte distribution width (RBC) [Ratio] 13.6 % 11.0-15.0 [facility] Estimated glomerular filtrat ion rate (GFR) non- Americanon 04-06-2024 GFR/1.73 sq M.predicted among non-blacks MDRD (S/P/Bld) [Vol rate/Area] mL/min/{1.73_m2} >=60 mL/min/1.73m 2 [facility] Globulin Calc (S) [Mass/Vol] on 04-06-2024 Globulin (S) [Mass/Vol] 3.1 g/dL F [facility] Hematocrit Auto (Bld) [Volum e fraction]on 04-06-2024 Hematocrit (Bld) [Volume fraction] 39.3 % 36.0-48.0 [facility] Hemoglobin [Mass/volume] in Bloodon 04-06-2024 Hemoglobin (Bld) [Mass/Vol] 13.0 g/dL 12.0-16.0 [facility] Laboratory - Chemistry and C hemistry - challengeon 04-06-2024 Albumin [Mass/Vol] 3.7 g/dL 3.4-5.0 [facility] ALP [Catalytic activity/Vol] 41 U/L Low 46-116 [facility] ALT [Catalytic activity/Vol] 35 U/L 14-59 [facility] AST [Catalytic activity/Vol] 35 U/L 15-37 [facility] Bilirubin [Mass/Vol] 0.4 mg/dL 0.2-1.0 [facility] Calcium [Mass/Vol] 8.6 mg/dL 8.5-10.1 [facility] Chloride [Moles/Vol] 100 mmol/L 98-107 [facility] CO2 [Moles/Vol] 23.5 mmol/L 21.0-32.0 [facility] Creatinine [Mass/Vol] 0.73 mg/dL 0.55-1.02 [facility] GFR/1.73 sq M.predicted MDRD (S/P/Bld) [Vol rate/Area] mL/min/{1.73_m2} >=60 mL/min/1.73m 2 [facility] Glucose [Mass/Vol] 77 mg/dL 74-106 [facility] Potassium [Moles/Vol] 3.4 mmol/L Low 3.5-5.1 [facility] Protein [Mass/Vol] 6.8 g/dL 6.4-8.2 [facility] Sodium [Moles/Vol] 136 mmol/L 136-145 [facility] Urea nitrogen [Mass/Vol] 11.0 mg/dL 7.0-18.0 [facility] Urea nitrogen/Creatinine [Mass ratio] 15.1 mg/mg [facility] Bilirubin Ql (U) MODERATE Abnormal NEGATIVE [facility] Glucose (U) [Mass/Vol] Negative NEGATIVE [facility] Ketones Ql (U) 15 mg/dL Abnormal NEGATIVE [facility] pH (U) 6.0 [pH] 5.0-9.0 [facility] Specific gravity (U) [Rel density] 1.010 1.005-1.025 [facility] Urobilinogen Qn (U) 0.2 {Paul'U}/dL 0.2-1.0 [facility] Laboratory - Hematology and Cell countson 04-06-2024 ESR (Bld) [Velocity] 35 mm/h High <=30 [facility] Immature granulocytes/100 WBC (Bld) 0.6 % High 0.0-0.5 [facility] Laboratory - Specimen inform ationon 04-06-2024 Appearance (U) CLEAR CLEAR [facility] Color (U) LT. YELLOW YELLOW [facility] Laboratory - Urinalysison Leukocyte esterase Test strip Ql (U) LARGE Abnormal NEGATIVE [facility] Mucus Ql (Urine sed) NONE SEEN NONE SEEN [facility] Nitrite Ql (U) Negative NEGATIVE [facility] Protein Ql (U) Negative NEG/TRACE [facility] Leukocytes [#/volume] correc sandip for nucleated erythrocytes in Blood by Automated counon 04-06-2024 WBC corrected for nucl RBC Auto (Bld) [#/Vol] 8.9 10 3/uL 4.0-11.0 [facility] Lymphocytes Auto (Bld) [#/Vo l]on 04-06-2024 Lymphocytes (Bld) [#/Vol] 1.2 10 3/uL 1.2-3.8 [facility] Lymphocytes/100 WBC Auto (Bl d)on 04-06-2024 Lymphocytes/100 WBC (Bld) 12.9 % Low 20.5-60.0 [facility] MCH Auto (RBC) [Entitic mass ]on 04-06-2024 MCH (RBC) [Entitic mass] 31.5 pg 26.7-34.0 [facility] MCHC Auto (RBC) [Mass/Vol]on 04-06-2024 MCHC (RBC) [Mass/Vol] 33.1 g/dL 29.9-35.2 [facility] MCV Auto (RBC) [Entitic vol] on 04-06-2024 MCV (RBC) [Entitic vol] 95.2 fL 81.0-99.0 F [facility] Monocytes Auto (Bld) [#/Vol] on 04-06-2024 Monocytes (Bld) [#/Vol] 0.7 10 3/uL 0.3-0.8 [facility] Monocytes/100 WBC Auto (Bld) on 04-06-2024 Monocytes/100 WBC (Bld) 7.6 % 1.7-12.0 [facility] Neutrophils Auto (Bld) [#/Vo l]on 04-06-2024 Neutrophils (Bld) [#/Vol] 6.9 10 3/uL High 1.4-6.5 [facility] Neutrophils/100 WBC Auto (Bl d)on 04-06-2024 Neutrophils/100 WBC (Bld) 76.9 % High 43.0-75.0 [facility] No Panel Informationon 04-06 25-Hydroxy Vitamin D Total 49.0 ng/mL [facility] Comment on above: <20 ng/mL Vit D defi cient20-<30 ng/mL Vit D [id number] ng/mL Vit D sufficient>100 ng/mL Potential Toxicity Eosinophils # (Auto) 0.1 10 3/uL 0.0-0.7 [facility] Immature Granulocyte # (Auto) 0.05 10 3/uL High 0.00-0.03 [facility] Total Complement (CH50) >60 U/mL >41 F [facility] Comment on above: Age Male Female 3 [...] to determine out of range values.Performed at: [facility] [id number] Director: Santiago Madrid PhD, Phone: [phone] Urine Bacteria TRACE #/HPF Abnormal NONE SEEN [facility] Urine Occult Blood Negative NEGATIVE [facility] Urine Other Casts NONE SEEN #/LPF NONE SEEN [facility] Urine Other Crystals None Seen #/HPF None Seen [facility] Urine RBC 2-5 #/HPF Abnormal 0-2 [facility] Urine Squamous Epithelial Cells FEW #/LPF Abnormal NONE/RARE [facility] Urine Transitional Epithelial Cells FEW #/LPF Abnormal NONE SEEN [facility] Urine WBC 75-100 #/HPF Abnormal NONE SEEN [facility] Platelet mean volume Auto (B ld) [Entitic vol]on 04-06-2024 Platelet mean volume (Bld) [Entitic vol] 9.6 fL 9.5-13.5 [facility] Platelets Auto (Bld) [#/Vol] on 04-06-2024 Platelets (Bld) [#/Vol] 232 10 3/uL 150-450 [facility] RBC Auto (Bld) [#/Vol]on RBC (Bld) [#/Vol] 4.13 10 6/uL Low 4.20-5.40 [facility] Serum or plasma albumin/glob ulin mass ratioon 04-06-2024 Albumin/Globulin [Mass ratio] 1.2 {ratio} [facility] Serum or plasma anion gap de terminationon 04-06-2024 Anion gap [Moles/Vol] 15.9 mmol/L [facility] Serum or plasma complement C 3 measurement (mass/volume)on 04-06-2024 Complement C3 [Mass/Vol] 112 mg/dL 82-167 [facility] Serum or plasma complement C 4 measurement (mass/volume)on 04-06-2024 Complement C4 [Mass/Vol] 24 mg/dL 12-38 [facility] Comment on above: Performed at: [place] [id number] [place], [place] [id number] Director: Santiago Madrid PhD, Phone: [phone] Alanine aminotransferase [En zymatic activity/volume] in Serum or PlasmaOrdered By: PROVIDER TEMP on 04-04-2024 ALT [Catalytic activity/Vol] 27 U/L Normal 7-52 [facility] Comment on above: Performed By: #### C BC, LIPASE, BMP, HEPATIC #### [facility] [address] Albumin [Mass/volume] in Ser um or Plasma by Bromocresol green (BCG) dye binding methoOrdered By: PROVIDER TEMP on 04-04-2024 Albumin BCG dye [Mass/Vol] 4.3 g/dL 3.5-5.7 [facility] Alkaline phosphatase [Enzyma tic activity/volume] in Serum or PlasmaOrdered By: PROVIDER TEMP on 04-04-2024 ALP [Catalytic activity/Vol] 35 U/L Normal 34-104 [facility] Comment on above: Performed By: #### C BC, LIPASE, BMP, HEPATIC #### [facility] [address] [place] [address] Aspartate aminotransferase [ Enzymatic activity/volume] in Serum or PlasmaOrdered By: PROVIDER TEMP on 04-04-2024 AST [Catalytic activity/Vol] 35 U/L Normal 13-39 [facility] Comment on above: Performed By: #### C BC, LIPASE, BMP, HEPATIC #### [facility] [address] [place] [address] [place] Automated basophil %Ordered By: PROVIDER TEMP on 04-04-2024 Basophils/100 WBC (Bld) 0.9 % Normal . [facility] Comment on above: Performed By: #### C BC, LIPASE, BMP, HEPATIC #### [facility] [address] [place] [address] [place] Automated basophil countOrde red By: PROVIDER TEMP on 04-04-2024 Basophils (Bld) [#/Vol] 0.1 10*3/uL Normal 0.0-0.2 [facility] Comment on above: Result Comment: PERF ORMED BY: [place] [address] PATHOLOGIST C [employer]B DEVELOPER ROSLYN TALLEY M.D. Performed By: #### C BC, LIPASE, BMP, HEPATIC #### [facility] [address] [place] [address] Automated blood monocyte cou ntOrdered By: PROVIDER TEMP on 04-04-2024 Monocytes (Bld) [#/Vol] 0.7 10*3/uL Normal 0.0-0.8 [facility] Comment on above: Performed By: #### C BC, LIPASE, BMP, HEPATIC #### [facility] [address] [place] [address] Automated eosinophil %Ordere d By: PROVIDER TEMP on 04-04-2024 Eosinophils/100 WBC (Bld) 0.5 % Normal . [facility] Comment on above: Performed By: #### C BC, LIPASE, BMP, HEPATIC #### [facility] [address] [place] [address] Automated eosinophil countOr dered By: PROVIDER TEMP on 04-04-2024 Eosinophils (Bld) [#/Vol] 0.1 10*3/uL Normal 0.0-0.45 [facility] Comment on above: Performed By: #### C BC, LIPASE, BMP, HEPATIC #### [facility] [address] [place] [address] Automated monocyte %Ordered By: PROVIDER TEMP on 04-04-2024 Monocytes/100 WBC (Bld) 6.6 % Normal . [facility] Comment on above: Performed By: #### C BC, LIPASE, BMP, HEPATIC #### [facility] [address] [place] [address] Automated neutrophil %Ordere d By: PROVIDER TEMP on 04-04-2024 Neutrophils/100 WBC (Bld) 81.7 % Normal . [facility] Comment on above: Performed By: #### C BC, LIPASE, BMP, HEPATIC #### [facility] [address] Bacteria [Presence] in Urine by AutomatedOrdered By: PROVIDER TEMP on 04-04-2024 Bacteria Auto Ql (U) Rare [HPF] None Seen [facility] Basic Metabolic Panelon 03-08 Creatinine Clr Calc Pharmacy 62.82 Normal [facility] Comment on above: Performed By: #### C BC, LIPASE, BMP, HEPATIC #### [facility] [address] GFR/1.73 sq M.predicted MDRD (S/P/Bld) [Vol rate/Area] mL/min/{1.73_m2} Normal [facility] Comment on above: Performed By: #### C BC, LIPASE, BMP, HEPATIC #### [facility] [address] [place] [address] Bilirubin Test strip Ql (U)O rdered By: PROVIDER TEMP on 04-04-2024 Bilirubin Ql (U) 1+ High Negative [facility] Bilirubin.direct [Mass/volum e] in Serum or PlasmaOrdered By: PROVIDER TEMP on 04-04-2024 Bilirubin.direct [Mass/Vol] 0.20 mg/dL High 0.03-0.18 [facility] Bilirubin.total [Mass/volume ] in Serum or PlasmaOrdered By: PROVIDER TEMP on 04-04-2024 Bilirubin [Mass/Vol] 0.5 mg/dL Normal 0.3-1.0 [facility] Comment on above: Performed By: #### C BC, LIPASE, BMP, HEPATIC #### [facility] [address] [place] [address] CT abdomen pelvis w conon CT abdomen pelvis w con [facility] Main [place] [address] [place] [address] CT Scan Report Signed Patient: Genna Herrera MR#: [id number] 52 : 1950 Acct:[id number] Age/Sex: 73 / F ADM Date: 04/04/24 Loc: ER Room: Type: PRE ER Attending Dr: Copies to: Sabrina Gómez APRN TEMP, PROVIDER Ordering Provider: Sabrina Gómez APRN Date of Service: 04/04/24 CT/CT abdomen pelvis w con: abd pain CT Abdomen and Pelvis withcontrast TECHNIQUE: Axial imaging with 2-D reconstruction.90 cc of Isovue-300. The CT exam was performed using one or more the following dose reduction techniques: Automated exposure control, adjustment of the MA and/or Kv according to patient size, or use of the iterative reconstruction technique. COMPARISON: None History: Abdominal pain. Concern for infection of the GI tract. LIMITATIONS: None LOWER THORAX mild atelectasis. LIVER: Unremarkable GALLBLADDER: No gallbladder abnormality identified. BILE DUCTS: No dilatation SPLEEN: Unremarkable PANCREAS: Unremarkable ADRENAL GLANDS: Unremarkable KIDNEYS:Unremarkable AORTA: No abdominal aortic aneurysm identified. Atherosclerosis RETROPERITONEUM: No significant retroperitoneal abnormalities identified. MESENTERY:Unremarkabl e SMALL BOWEL: The small bowel loops are nondistended. APPENDIX: The appendix is normal. COLON: Unremarkable URINARY BLADDER: Urinary bladder is unremarkable. REPRODUCTIVE SYSTEM: Reproductive structures are unremarkable. PNEUMOPERITONEUM: None PERITONEAL FLUID:None BONY STRUCTURES: Unremarkable ABDOMINAL WALL: Unremarkable CT/CT abdomen pelvis w con IMPRESSION: No acute findings. No colitis or diverticulitis. Impression dictated by: Randall Pierre M.D.04/04/2024 4:30 PM Dictation Location: [place] [address] Transcribed By: [facility] 04/04/24 1630 Dictated By: Randall Pierre DO 04/04/24 1623 Signed By: 04/04/24 1630 Normal [facility] Calcium [Mass/volume] in Ser um or PlasmaOrdered By: PROVIDER TEMP on 04-04-2024 Calcium [Mass/Vol] 8.3 mg/dL Low 8.6-10.3 [facility] Comment on above: Performed By: #### C BC, LIPASE, BMP, HEPATIC #### [address] Carbon dioxide, total [Moles /volume] in Serum or PlasmaOrdered By: PROVIDER TEMP on 04-04-2024 CO2 [Moles/Vol] 25.0 mmol/L Normal 21.0-31.0 [facility] Comment on above: Performed By: #### C BC, LIPASE, BMP, HEPATIC #### [address] Chloride [Moles/volume] in S rox or PlasmaOrdered By: PROVIDER TEMP on 04-04-2024 Chloride [Moles/Vol] 106 mmol/L Normal 98-107 [facility] Comment on above: Performed By: #### C BC, LIPASE, BMP, HEPATIC #### [address] Color of Urine by AutoOrdere d By: PROVIDER TEMP on 04-04-2024 Color (U) Light-yellow Normal Yellow [facility] Comment on above: Order Comment: Name Collection Type:: Clean-Voided Midstream Performed By: #### C UU, ADDONUAPLUS #### [address] Complete Blood Count Auto Di ffon 04-04-2024 Mean Corpuscular HGB Conc 33.4 g/dL Normal 32.0-35.0 [facility] Comment on above: Performed By: #### C BC, LIPASE, BMP, HEPATIC #### [address] Monocytes/100 WBC (Bld) 16.61 % Normal 0.00-20.00 [facility] Comment on above: Performed By: #### C BC, LIPASE, BMP, HEPATIC #### [address] NRBC% 0.1 /100{WBC} Normal 0-0.5 [facility] Comment on above: Performed By: #### C BC, LIPASE, BMP, HEPATIC #### [address] Creatinine [Mass/volume] in Serum or PlasmaOrdered By: PROVIDER TEMP on 04-04-2024 Creatinine [Mass/Vol] 0.62 mg/dL Normal 0.60-1.20 [facility] Comment on above: Performed By: #### C BC, LIPASE, BMP, HEPATIC #### [facility] [address] [place] [address] Crystals [Presence] in Urine by AutomatedOrdered By: PROVIDER TEMP on 04-04-2024 Crystals Auto Ql (U) Rare [HPF] [facility] Dipstick and Microscopicon 0 04-04-2024 Bacteria,Urine Rare Normal None Seen [facility] Comment on above: Order Comment: Name Collection Type:: Clean-Voided Midstream Performed By: #### C UU, ADDONUAPLUS #### [address] Bilirubin,Urine 1+ High Negative [facility] Comment on above: Order Comment: Name Collection Type:: Clean-Voided Midstream Performed By: #### C UU, ADDONUAPLUS #### [address] Budding Yeast,Urine Rare High None Seen [facility] Comment on above: Order Comment: Name Collection Type:: Clean-Voided Midstream Result Comment: PERF ORMED BY: [place] [address] PATHOLOGIST C [employer] DEVELOPER ROSLYN TALLEY M.D. Performed By: #### C UU, ADDONUAPLUS #### [facility] [address] [place] [address] Glucose Ql (U) Normal Normal Normal [facility] Comment on above: Order Comment: Name Collection Type:: Clean-Voided Midstream Performed By: #### C UU, ADDONUAPLUS #### [facility] [address] [place] [address] [place] Hyaline Casts,Urine 0-8 Normal 0-8 [facility] Comment on above: Order Comment: Name Collection Type:: Clean-Voided Midstream Performed By: #### C UU, ADDONUAPLUS #### [place] [address] [place] Mucus,Urine Rare Normal [facility] Comment on above: Order Comment: Name Collection Type:: Clean-Voided Midstream Performed By: #### C UU, ADDONUAPLUS #### [place] [address] [place] Nitrite,Urine Negative Normal Negative [facility] Comment on above: Order Comment: Name Collection Type:: Clean-Voided Midstream Performed By: #### C UU, ADDONUAPLUS #### [place] [address] [place] Occult Blood,Urine 1+ High Negative [facility] Comment on above: Order Comment: Name Collection Type:: Clean-Voided Midstream Result Comment: PERF ORMED BY: [place] [address] PATHOLOGIST C WE[employer] DEVELOPER ROSLYN TALLEY M.D. Performed By: #### C UU, ADDONUAPLUS #### [place] [address] [place] Othe Crystals,Urine Rare Normal [facility] Comment on above: Order Comment: Name Collection Type:: Clean-Voided Midstream Performed By: #### C UU, ADDONUAPLUS #### [place] [address] [place] Protein,Urine Negative Normal Negative [facility] Comment on above: Order Comment: Name Collection Type:: Clean-Voided Midstream Performed By: #### C UU, ADDONUAPLUS #### [place] [address] [place] RBC,Urine 3-4 Normal 0-4 [facility] Comment on above: Order Comment: Name Collection Type:: Clean-Voided Midstream Performed By: #### C UU, ADDONUAPLUS #### [place] [address] [place] Specificy [place],Urine 1.006 Normal 1.001-1.030 [facility] Comment on above: Order Comment: Name Collection Type:: Clean-Voided Midstream Performed By: #### C UU, ADDONUAPLUS #### [place] [address] [place] Squamous Epithelial Cell,Urine 1-2 Normal 0-2 [facility] Comment on above: Order Comment: Name Collection Type:: Clean-Voided Midstream Performed By: #### C UU, ADDONUAPLUS #### [address] Urobilinogen,Urine Normal Normal Normal [facility] Comment on above: Order Comment: Name Collection Type:: Clean-Voided Midstream Performed By: #### C UU, ADDONUAPLUS #### [address] WBC CLUMP, Urine Many High None Seen [facility] Comment on above: Order Comment: Name Collection Type:: Clean-Voided Midstream Performed By: #### C UU, ADDONUAPLUS #### [address] WBC,Urine Innumerable High 0-4 [facility] Comment on above: Order Comment: Name Collection Type:: Clean-Voided Midstream Performed By: #### C UU, ADDONUAPLUS #### [address] ECG 12 lead ECGon 04-04-2024 ECG 12 lead ECG [facility] Main [place] [address] [place] [address] Electrocardiograph Report Signed Patient: Genna Herrera MR#: [id number] 52 : 1950 Acct:[id number] Age/Sex: 73 / F ADM Date: 04/04/24 Loc: ER Room: Type: PRE ER Attending Dr: Ordering Provider: ALEXYS HOLMAN Date of Service: 04/04/24 ECG/ECG 12 lead ECG: Abdominal Pain Copies to: Test Reason : Blood Pressure : 122/73 mmHG Vent. Rate : 82 BPM Atrial Rate : 82 BPM P-R Int : 178 ms QRS Dur : 76 ms QT Int : 358 ms P-R-T Axes : 45 24 52 degrees QTcB Int : 418 ms Normal sinus rhythm Confirmed by Neville RODRIGUEZ DO ([id number]) on 04/04/2024 3:17:04 PM Referred By: Electronically Signed By: Neville RODRIGUEZ DO Transcribed By: MUS Signed By Neville Rodriguez DO 0 04/04/24 1517 Normal [facility] Epithelial cells.squamous [# /area] in Urine sediment by Automated countOrdered By: PROVIDER TEMP on 04-04-2024 Epithelial cells.squamous Auto (Urine sed) [#/Area] 1-2 [HPF] 0-2 [facility] Erythrocyte distribution wid th [Ratio] by Automated countOrdered By: PROVIDER TEMP on 04-04-2024 Erythrocyte distribution width (RBC) [Ratio] 14.3 % Normal 11.9-15.3 [facility] Comment on above: Performed By: #### C BC, LIPASE, BMP, HEPATIC #### [facility] [address] [place] [address] [place] Erythrocytes [#/area] in Uri ne sediment by Automated countOrdered By: PROVIDER TEMP on 04-04-2024 RBC Auto (Urine sed) [#/Area] 3-4 [HPF] 0-4 [facility] Erythrocytes [#/volume] in B lood by Automated countOrdered By: PROVIDER TEMP on 04-04-2024 RBC (Bld) [#/Vol] 4.20 10*6/uL Normal 3.60-5.00 [facility] Comment on above: Performed By: #### C BC, LIPASE, BMP, HEPATIC #### [place] [address] [place] Glucose [Mass/volume] in Ser um or PlasmaOrdered By: PROVIDER TEMP on 04-04-2024 Glucose [Mass/Vol] 70 mg/dL Normal 70-100 [facility] Comment on above: ADA recommended refe rence rangeRandom Glucose Reference Range is dependent on time and content of last meal. Glucose of more than 200 mg/dL in a nonstressed, ambulatory subject supports the diagnosis of Diabetes Mellitus. Result Comment: [place] om Glucose Reference Range is dependent on time and content of last meal. Glucose of more than 200 mg/dL in a nonstressed, ambulatory subject supports the diagnosis of Diabetes Mellitus. ADA recommended reference range Performed By: #### C BC, LIPASE, BMP, HEPATIC #### [facility] [address] [place] [address] [place] Glucose [Mass/volume] in Uri ne by Test stripOrdered By: PROVIDER TEMP on 04-04-2024 Glucose Test strip (U) [Mass/Vol] Normal mg/dL Normal [facility] Hematocrit [Volume Fraction] of Blood by Automated countOrdered By: PROVIDER TEMP on 04-04-2024 Hematocrit (Bld) [Volume fraction] 39.4 % Normal 34.0-46.4 [facility] Comment on above: Performed By: #### C BC, LIPASE, BMP, HEPATIC #### [address] Hemoglobin Test strip Ql (U) Ordered By: PROVIDER TEMP on 04-04-2024 Hemoglobin Ql (U) 1+ High Negative [facility] Hemoglobin [Mass/volume] in BloodOrdered By: PROVIDER TEMP on 04-04-2024 Hemoglobin (Bld) [Mass/Vol] 13.2 g/dL Normal 11.8-15.4 [facility] Comment on above: Performed By: #### C BC, LIPASE, BMP, HEPATIC #### [address] Hepatic Panelon 04-04-2024 Albumin [Mass/Vol] 4.3 g/dL Normal 3.5-5.7 [facility] Comment on above: Performed By: #### C BC, LIPASE, BMP, HEPATIC #### [address] Bilirubin,Indirect 0.3 mg/dL Normal [facility] Comment on above: Performed By: #### C BC, LIPASE, BMP, HEPATIC #### [address] Bilirubin.indirect [Mass/Vol] 0.20 mg/dL High 0.03-0.18 [facility] Comment on above: Performed By: #### C BC, LIPASE, BMP, HEPATIC #### [place] [address] [place] Hyaline casts [#/area] in Ur ine sediment by Automated countOrdered By: PROVIDER TEMP on 04-04-2024 Hyaline casts Auto (Urine sed) [#/Area] 0-8 [LPF] 0-8 [facility] Ketones [Presence] in Urine by Test stripOrdered By: PROVIDER TEMP on 04-04-2024 Ketones Ql (U) Trace High Negative [facility] Comment on above: Order Comment: Name Collection Type:: Clean-Voided Midstream Performed By: #### C UU, ADDONUAPLUS #### [facility] [address] [place] [address] Laboratory - Microbiology an d Antimicrobial susceptibilityOrdered By: PROVIDER TEMP on 04-04-2024 Bacteria identified Cx Nom (U) No Growth 2 Days [facility] Leukocyte clumps [Presence] in Urine by AutomatedOrdered By: PROVIDER TEMP on 04-04-2024 Leukocyte clumps Auto Ql (U) Many [LPF] High None Seen [facility] Leukocyte esterase [Presence ] in Urine by Test stripOrdered By: PROVIDER TEMP on 04-04-2024 Leukocyte esterase Test strip Ql (U) 4+ High Negative [facility] Comment on above: Order Comment: Name Collection Type:: Clean-Voided Midstream Performed By: #### C UU, ADDONUAPLUS #### [facility] [address] [place] [address] Leukocytes [#/area] in Urine sediment by Automated countOrdered By: PROVIDER TEMP on 04-04-2024 WBC Auto (Urine sed) [#/Area] Innumerable [HPF] High 0-4 [facility] Leukocytes [#/volume] correc sandip for nucleated erythrocytes in Blood by Automated counOrdered By: PROVIDER TEMP on 04-04-2024 WBC corrected for nucl RBC Auto (Bld) [#/Vol] 10.5 10*3/uL 3.8-11.6 [facility] Leukocytes [#/volume] in Blo od by Automated countOrdered By: PROVIDER TEMP on 04-04-2024 WBC (Bld) [#/Vol] 10.5 10*3/uL Normal 3.8-11.6 [facility] Comment on above: Performed By: #### C BC, LIPASE, BMP, HEPATIC #### [facility] [address] [place] [address] Lipase [Enzymatic activity/v olume] in Serum or PlasmaOrdered By: PROVIDER TEMP on 04-04-2024 Lipase [Catalytic activity/Vol] 16.0 U/L Normal 11.0-82.0 [facility] Comment on above: Result Comment: PERF ORMED BY: [place] [address] PATHOLOGIST C WE[employer] DEVELOPER ROSLYN TALLEY M.D. Performed By: #### C BC, LIPASE, BMP, HEPATIC #### [facility] [address] [place] [address] Lymphocytes [#/volume] in Bl ood by Automated countOrdered By: PROVIDER TEMP on 04-04-2024 Lymphocytes (Bld) [#/Vol] 1.1 10*3/uL Normal 1.00-4.8 [facility] Comment on above: Performed By: #### C BC, LIPASE, BMP, HEPATIC #### [facility] [address] [place] [address] [place] Lymphocytes/100 leukocytes i n Blood by Automated countOrdered By: PROVIDER TEMP on 04-04-2024 Lymphocytes/100 WBC (Bld) 10.3 % Normal . [facility] Comment on above: Performed By: #### C BC, LIPASE, BMP, HEPATIC #### [facility] [address] [place] [address] MCH [Entitic mass] by Automa sandip countOrdered By: PROVIDER TEMP on 04-04-2024 MCH (RBC) [Entitic mass] 31.3 pg Normal 24.7-34.3 [facility] Comment on above: Performed By: #### C BC, LIPASE, BMP, HEPATIC #### [facility] [address] [place] [address] MCHC Auto (RBC) [Mass/Vol]Or dered By: PROVIDER TEMP on 04-04-2024 MCHC (RBC) [Mass/Vol] 33.4 g/dL 32.0-35.0 [facility] MCV [Entitic volume] by Auto mated countOrdered By: PROVIDER TEMP on 04-04-2024 MCV (RBC) [Entitic vol] 93.9 fL Normal 80-100 [facility] Comment on above: Performed By: #### C BC, LIPASE, BMP, HEPATIC #### [facility] [address] Monocyte distribution width [Entitic volume] in Blood by AutomatedOrdered By: PROVIDER TEMP on 04-04-2024 Monocyte distribution width Auto (Bld) [Entitic vol] 16.61 % 0.00-20.00 [facility] Mucus [Presence] in Urine by AutomatedOrdered By: PROVIDER TEMP on 04-04-2024 Mucus Auto Ql (U) Rare [LPF] [facility] Neutrophils [#/volume] in Bl ood by Automated countOrdered By: PROVIDER TEMP on 04-04-2024 Neutrophils (Bld) [#/Vol] 8.6 10*3/uL High 1.8-7.7 [facility] Comment on above: Performed By: #### C BC, LIPASE, BMP, HEPATIC #### [facility] [address] [place] [address] Nitrite Test strip Ql (U)Ord ered By: PROVIDER TEMP on 04-04-2024 Nitrite Ql (U) Negative Negative [facility] No Panel InformationOrdered By: PROVIDER TEMP on 04-04-2024 Estimated GFR (CKD-EPI) > 60.0 mL/Min [facility] Creatinine Clearance (Chem 62.82 [facility] Nucleated erythrocytes [Pres ence] in Blood by Automated countOrdered By: PROVIDER TEMP on 04-04-2024 Nucleated RBC Auto Ql (Bld) 0.1 /100{WBC} 0-0.5 [facility] Platelet mean volume [Entiti c volume] in Blood by Automated countOrdered By: PROVIDER TEMP on 04-04-2024 Platelet mean volume (Bld) [Entitic vol] 8.1 fL Normal 6.3-10.7 [facility] Comment on above: Performed By: #### C BC, LIPASE, BMP, HEPATIC #### [facility] [address] Platelets [#/volume] in Bloo d by Automated countOrdered By: PROVIDER TEMP on 04-04-2024 Platelets (Bld) [#/Vol] 226 10*3/uL Normal 150-450 [facility] Comment on above: Performed By: #### C BC, LIPASE, BMP, HEPATIC #### [facility] [address] [place] [address] Potassium [Moles/volume] in Serum or PlasmaOrdered By: PROVIDER TEMP on 04-04-2024 Potassium [Moles/Vol] 3.6 mmol/L Normal 3.5-5.1 [facility] Comment on above: Performed By: #### C BC, LIPASE, BMP, HEPATIC #### [facility] [address] [place] [address] Protein Test strip (U) [Mass /Vol]Ordered By: PROVIDER TEMP on 04-04-2024 Protein (U) [Mass/Vol] Negative Negative [facility] Protein [Mass/volume] in Ser um or PlasmaOrdered By: PROVIDER TEMP on 04-04-2024 Protein [Mass/Vol] 6.6 g/dL Normal 6.4-8.9 [facility] Comment on above: Performed By: #### C BC, LIPASE, BMP, HEPATIC #### [facility] [address] [place] [address] Serum globulin measurement b y calculation (mass/volume)Ordered By: PROVIDER TEMP on 04-04-2024 Globulin (S) [Mass/Vol] 2.3 g/dL Normal [facility] Comment on above: Performed By: #### C BC, LIPASE, BMP, HEPATIC #### [facility] [address] [place] [address] Serum or plasma albumin/glob ulin mass ratioOrdered By: PROVIDER TEMP on 04-04-2024 Albumin/Globulin [Mass ratio] 1.9 {ratio} Normal [facility] Comment on above: Performed By: #### C BC, LIPASE, BMP, HEPATIC #### [facility] [address] [place] [address] Serum or plasma anion gap de terminationOrdered By: PROVIDER TEMP on 04-04-2024 Anion gap [Moles/Vol] 12.6 mmol/L Normal 6.0-15.0 [facility] Comment on above: Performed By: #### C BC, LIPASE, BMP, HEPATIC #### [address] Serum or plasma non-glucuron idated bilirubin measurement (mass/volume)Ordered By: PROVIDER TEMP on 04-04-2024 Bilirubin.indirect [Mass/Vol] 0.3 mg/dL [facility] Sodium [Moles/volume] in Ser um or PlasmaOrdered By: PROVIDER TEMP on 04-04-2024 Sodium [Moles/Vol] 140 mmol/L Normal 136-145 [facility] Comment on above: Performed By: #### C BC, LIPASE, BMP, HEPATIC #### [address] Specific gravity Test strip (U) [Rel density]Ordered By: PROVIDER TEMP on 04-04-2024 Specific gravity (U) [Rel density] 1.006 1.001-1.030 [facility] Urea nitrogen [Mass/volume] in Serum or PlasmaOrdered By: PROVIDER TEMP on 04-04-2024 Urea nitrogen [Mass/Vol] 11 mg/dL Normal 7-25 [facility] Comment on above: Performed By: #### C BC, LIPASE, BMP, HEPATIC #### [address] Urine Cultureon 04-04-2024 Bacteria identified Cx Nom (U) No Growth 2 Days PERFORMED BY: [place] [address] PATHOLOGIST C [employer] DEVELOPER ROSLYN TALLEY M.D. Normal [facility] Comment on above: Performed By: #### C UU, ADDONUAPLUS #### [address] Urine appearanceOrdered By: PROVIDER TEMP on 04-04-2024 Appearance (U) Cloudy Critically abnormal Clear [facility] Comment on above: Order Comment: Name Collection Type:: Clean-Voided Midstream Performed By: #### C UU, ADDONUAPLUS #### [address] [place] [address] [facility] Urobilinogen Test strip (U) [Mass/Vol]Ordered By: PROVIDER TEMP on 04-04-2024 Urobilinogen (U) [Mass/Vol] Normal mg/dL Normal [facility] Yeast.budding [Presence] in Urine by Computer assisted methodOrdered By: PROVIDER TEMP on 04-04-2024 Yeast.budding Computer assisted Ql (U) Rare [HPF] High None Seen [facility] pH of Urine by Test stripOrd ered By: PROVIDER TEMP on 04-04-2024 pH (U) 5.5 [pH] Normal 5.0-9.0 [facility] Comment on above: Order Comment: Name Collection Type:: Clean-Voided Midstream Performed By: #### C UU, ADDONUAPLUS #### [facility] [address] [place] [id number] [facility] Basophils Auto (Bld) [#/Vol] on 04-02-2024 Basophils (Bld) [#/Vol] 0.1 10 3/uL 0.0-0.1 [facility] Basophils/100 WBC Auto (Bld) on 04-02-2024 Basophils/100 WBC (Bld) 0.8 % 0.2-2.0 F [facility] Eosinophils/100 WBC Auto (Bl d)on 04-02-2024 Eosinophils/100 WBC (Bld) 0.6 % Low 0.9-7.0 [facility] Erythrocyte distribution wid th Auto (RBC) [Ratio]on 04-02-2024 Erythrocyte distribution width (RBC) [Ratio] 13.7 % 11.0-15.0 [facility] Estimated glomerular filtrat ion rate (GFR) non- Americanon 04-02-2024 GFR/1.73 sq M.predicted among non-blacks MDRD (S/P/Bld) [Vol rate/Area] mL/min/{1.73_m2} >=60 [facility] Globulin Calc (S) [Mass/Vol] on 04-02-2024 Globulin (S) [Mass/Vol] 3.4 g/dL F [facility] Hematocrit Auto (Bld) [Volum e fraction]on 04-02-2024 Hematocrit (Bld) [Volume fraction] 42.7 % 36.0-48.0 [facility] Hemoglobin [Mass/volume] in Bloodon 04-02-2024 Hemoglobin (Bld) [Mass/Vol] 14.4 g/dL 12.0-16.0 [facility] Laboratory - Chemistry and C hemistry - challengeon 04-02-2024 Albumin [Mass/Vol] 3.9 g/dL 3.4-5.0 [facility] ALP [Catalytic activity/Vol] 45 U/L Low 46-116 [facility] ALT [Catalytic activity/Vol] 41 U/L 14-59 [facility] AST [Catalytic activity/Vol] 35 U/L 15-37 [facility] Bilirubin [Mass/Vol] 0.5 mg/dL 0.2-1.0 [facility] Calcium [Mass/Vol] 9.6 mg/dL 8.5-10.1 [facility] Chloride [Moles/Vol] 102 mmol/L 98-107 [facility] CO2 [Moles/Vol] 25.9 mmol/L 21.0-32.0 [facility] Creatinine [Mass/Vol] 0.75 mg/dL 0.55-1.02 [facility] GFR/1.73 sq M.predicted MDRD (S/P/Bld) [Vol rate/Area] mL/min/{1.73_m2} >=60 [facility] Glucose [Mass/Vol] 100 mg/dL 74-106 [facility] Potassium [Moles/Vol] 3.9 mmol/L 3.5-5.1 [facility] Protein [Mass/Vol] 7.3 g/dL 6.4-8.2 [facility] Sodium [Moles/Vol] 138 mmol/L 136-145 [facility] Urea nitrogen [Mass/Vol] 13.0 mg/dL 7.0-18.0 [facility] Urea nitrogen/Creatinine [Mass ratio] 17.3 mg/mg [facility] Laboratory - Hematology and Cell countson 04-02-2024 Immature granulocytes/100 WBC (Bld) 0.4 % 0.0-0.5 [facility] Leukocytes [#/volume] correc sandip for nucleated erythrocytes in Blood by Automated counon 04-02-2024 WBC corrected for nucl RBC Auto (Bld) [#/Vol] 15.8 10 3/uL High 4.0-11.0 [facility] Lymphocytes Auto (Bld) [#/Vo l]on 04-02-2024 Lymphocytes (Bld) [#/Vol] 1.1 10 3/uL Low 1.2-3.8 [facility] Lymphocytes/100 WBC Auto (Bl d)on 04-02-2024 Lymphocytes/100 WBC (Bld) 7.1 % Low 20.5-60.0 [facility] MCH Auto (RBC) [Entitic mass ]on 04-02-2024 MCH (RBC) [Entitic mass] 31.5 pg 26.7-34.0 [facility] MCHC Auto (RBC) [Mass/Vol]on 04-02-2024 MCHC (RBC) [Mass/Vol] 33.7 g/dL 29.9-35.2 [facility] MCV Auto (RBC) [Entitic vol] on 04-02-2024 MCV (RBC) [Entitic vol] 93.4 fL 81.0-99.0 [facility] Monocytes Auto (Bld) [#/Vol] on 04-02-2024 Monocytes (Bld) [#/Vol] 1.1 10 3/uL High 0.3-0.8 [facility] Monocytes/100 WBC Auto (Bld) on 04-02-2024 Monocytes/100 WBC (Bld) 6.9 % 1.7-12.0 [facility] Neutrophils Auto (Bld) [#/Vo l]on 04-02-2024 Neutrophils (Bld) [#/Vol] 13.4 10 3/uL High 1.4-6.5 [facility] Neutrophils/100 WBC Auto (Bl d)on 04-02-2024 Neutrophils/100 WBC (Bld) 84.2 % High 43.0-75.0 [facility] No Panel Informationon 04-02 Eosinophils # (Auto) 0.1 10 3/uL 0.0-0.7 [facility] Immature Granulocyte # (Auto) 0.06 10 3/uL High 0.00-0.03 [facility] Troponin I High Sensitivity 10.7 pg/mL 4.0-51.3 [facility] Comment on above: CUT-OFF POINTS HAVE BEEN ESTABLISHED BASED ON THE FOURTHUNIVERSAL DEFINITION OF MYOCARDIAL INFARCTION. THE UPPERREFERENCE LIMIT (URL) OF TROPONIN, DEFINED THE 99THPERCENTILE OF cTnI DISTRIBUTION IN A REFERENCE POPULATION,HAS BEEN CONFIRMED THE DECISION THRESHOLD FOR MIDIAGNOSIS.99TH PERCENTILE = 51.4 PG/MLNOTE: HIGH-SENSITIVITY TROPONIN ASSAY IS NOT INTENDED TO BEUSED IN ISOLATION BUT SHOULD BE INTERPRETED IN CONJUNCTIONWITH OTHER DIAGNOSTIC AND CLINICAL INFORMATION. Platelet mean volume Auto (B ld) [Entitic vol]on 04-02-2024 Platelet mean volume (Bld) [Entitic vol] 9.4 fL Low 9.5-13.5 [facility] Platelets Auto (Bld) [#/Vol] on 04-02-2024 Platelets (Bld) [#/Vol] 241 10 3/uL 150-450 [facility] RBC Auto (Bld) [#/Vol]on RBC (Bld) [#/Vol] 4.57 10 6/uL 4.20-5.40 [facility] Serum or plasma albumin/glob ulin mass ratioon 04-02-2024 Albumin/Globulin [Mass ratio] 1.1 {ratio} [facility] Serum or plasma anion gap de terminationon 04-02-2024 Anion gap [Moles/Vol] 14.0 mmol/L Fi [facility] Basophils Auto (Bld) [#/Vol] on 03-29-2024 Basophils (Bld) [#/Vol] 0.1 10 3/uL 0.0-0.1 [facility] Basophils/100 WBC Auto (Bld) on 03-29-2024 Basophils/100 WBC (Bld) 0.7 % 0.2-2.0 [facility] Eosinophils/100 WBC Auto (Bl d)on 03-29-2024 Eosinophils/100 WBC (Bld) 0.6 % Low 0.9-7.0 [facility] Erythrocyte distribution wid th Auto (RBC) [Ratio]on 03-29-2024 Erythrocyte distribution width (RBC) [Ratio] 13.8 % 11.0-15.0 [facility] Estimated glomerular filtrat ion rate (GFR) non- Americanon 03-29-2024 GFR/1.73 sq M.predicted among non-blacks MDRD (S/P/Bld) [Vol rate/Area] mL/min/{1.73_m2} >=60 [facility] Globulin Calc (S) [Mass/Vol] on 03-29-2024 Globulin (S) [Mass/Vol] 3.3 g/dL F [facility] HCG ( test) IA.rapi d Ql (U)on 03-29-2024 HCG ( test) Ql (U) Negative NEGATIVE [facility] Hematocrit Auto (Bld) [Volum e fraction]on 03-29-2024 Hematocrit (Bld) [Volume fraction] 43.2 % 36.0-48.0 [facility] Hemoglobin [Mass/volume] in Bloodon 03-29-2024 Hemoglobin (Bld) [Mass/Vol] 14.1 g/dL 12.0-16.0 [facility] Laboratory - Chemistry and C hemistry - challengeon 03-29-2024 Albumin [Mass/Vol] 4.2 g/dL 3.4-5.0 [facility] ALP [Catalytic activity/Vol] 44 U/L Low 46-116 [facility] ALT [Catalytic activity/Vol] 41 U/L 14-59 [facility] AST [Catalytic activity/Vol] 36 U/L 15-37 [facility] Bilirubin [Mass/Vol] 0.4 mg/dL 0.2-1.0 [facility] Calcium [Mass/Vol] 9.3 mg/dL 8.5-10.1 [facility] Chloride [Moles/Vol] 98 mmol/L 98-107 [facility] CO2 [Moles/Vol] 28.0 mmol/L 21.0-32.0 [facility] Creatinine [Mass/Vol] 0.85 mg/dL 0.55-1.02 [facility] GFR/1.73 sq M.predicted MDRD (S/P/Bld) [Vol rate/Area] mL/min/{1.73_m2} >=60 [facility] Glucose [Mass/Vol] 77 mg/dL 74-106 [facility] Potassium [Moles/Vol] 4.2 mmol/L 3.5-5.1 [facility] Protein [Mass/Vol] 7.5 g/dL 6.4-8.2 [facility] Sodium [Moles/Vol] 133 mmol/L Low 136-145 [facility] Urea nitrogen [Mass/Vol] 15.0 mg/dL 7.0-18.0 [facility] Urea nitrogen/Creatinine [Mass ratio] 17.6 mg/mg [facility] Bilirubin Ql (U) MODERATE Abnormal NEGATIVE [facility] Glucose (U) [Mass/Vol] Negative NEGATIVE [facility] Ketones Ql (U) Negative NEGATIVE [facility] pH (U) 6.0 [pH] 5.0-9.0 [facility] Specific gravity (U) [Rel density] 1.010 1.005-1.025 [facility] Urobilinogen Qn (U) 0.2 {Paul'U}/dL 0.2-1.0 [facility] Laboratory - Hematology and Cell countson 03-29-2024 Immature granulocytes/100 WBC (Bld) 0.3 % 0.0-0.5 [facility] Laboratory - Specimen inform ationon 03-29-2024 Appearance (U) SL CLOUDY CLEAR [facility] Color (U) YELLOW YELLOW [facility] Laboratory - Urinalysison Leukocyte esterase Test strip Ql (U) LARGE Abnormal NEGATIVE [facility] Mucus Ql (Urine sed) TRACE Abnormal NONE SEEN [facility] Nitrite Ql (U) Negative NEGATIVE [facility] Protein Ql (U) Negative NEG/TRACE [facility] Leukocytes [#/volume] correc sandip for nucleated erythrocytes in Blood by Automated counon 03-29-2024 WBC corrected for nucl RBC Auto (Bld) [#/Vol] 14.8 10 3/uL High 4.0-11.0 [facility] Lymphocytes Auto (Bld) [#/Vo l]on 03-29-2024 Lymphocytes (Bld) [#/Vol] 1.2 10 3/uL 1.2-3.8 [facility] Lymphocytes/100 WBC Auto (Bl d)on 03-29-2024 Lymphocytes/100 WBC (Bld) 7.8 % Low 20.5-60.0 [facility] MCH Auto (RBC) [Entitic mass ]on 03-29-2024 MCH (RBC) [Entitic mass] 31.3 pg 26.7-34.0 [facility] MCHC Auto (RBC) [Mass/Vol]on 03-29-2024 MCHC (RBC) [Mass/Vol] 32.6 g/dL 29.9-35.2 [facility] MCV Auto (RBC) [Entitic vol] on 03-29-2024 MCV (RBC) [Entitic vol] 95.8 fL 81.0-99.0 [facility] Monocytes Auto (Bld) [#/Vol] on 03-29-2024 Monocytes (Bld) [#/Vol] 1.1 10 3/uL High 0.3-0.8 [facility] Monocytes/100 WBC Auto (Bld) on 03-29-2024 Monocytes/100 WBC (Bld) 7.1 % 1.7-12.0 [facility] Neutrophils Auto (Bld) [#/Vo l]on 03-29-2024 Neutrophils (Bld) [#/Vol] 12.3 10 3/uL High 1.4-6.5 [facility] Neutrophils/100 WBC Auto (Bl d)on 03-29-2024 Neutrophils/100 WBC (Bld) 83.5 % High 43.0-75.0 [facility] No Panel Informationon 03-29 Eosinophils # (Auto) 0.1 10 3/uL 0.0-0.7 [facility] Immature Granulocyte # (Auto) 0.05 10 3/uL High 0.00-0.03 [facility] Miscellaneous Test Comment See comment [facility] Comment on above: Specimen Source: UCC - Urine,Clean Catch - Urine CC - 200.100 Urine Bacteria SMALL #/HPF Abnormal NONE SEEN [facility] Urine Culture Reflexed YES [facility] Urine Microscopic Review YES [facility] Urine Occult Blood TRACE-I NEGATIVE [facility] Urine Other Casts NONE SEEN #/LPF NONE SEEN [facility] Urine Other Crystals None Seen #/HPF None Seen [facility] Urine RBC 2-5 #/HPF Abnormal 0-2 [facility] Urine Squamous Epithelial Cells MODERATE #/LPF Abnormal NONE/RARE [facility] Urine WBC 75-100 #/HPF Abnormal NONE SEEN [facility] Platelet mean volume Auto (B ld) [Entitic vol]on 03-29-2024 Platelet mean volume (Bld) [Entitic vol] 9.3 fL Low 9.5-13.5 [facility] Platelets Auto (Bld) [#/Vol] on 03-29-2024 Platelets (Bld) [#/Vol] 222 10 3/uL 150-450 [facility] RBC Auto (Bld) [#/Vol]on RBC (Bld) [#/Vol] 4.51 10 6/uL 4.20-5.40 [facility] Serum or plasma albumin/glob ulin mass ratioon 03-29-2024 Albumin/Globulin [Mass ratio] 1.3 {ratio} [facility] Serum or plasma anion gap de terminationon 03-29-2024 Anion gap [Moles/Vol] 11.2 mmol/L Fi [facility] Urine culture routineon 03-07 Bacteria identified Cx Nom (U) \R\ Urine Culture, Routine [facility] Basophils Auto (Bld) [#/Vol] on 03-23-2024 Basophils (Bld) [#/Vol] 0.1 10 3/uL 0.0-0.1 [facility] Basophils/100 WBC Auto (Bld) on 03-23-2024 Basophils/100 WBC (Bld) 1.4 % 0.2-2.0 F [facility] Eosinophils/100 WBC Auto (Bl d)on 03-23-2024 Eosinophils/100 WBC (Bld) 2.1 % 0.9-7.0 [facility] Erythrocyte distribution wid th Auto (RBC) [Ratio]on 03-23-2024 Erythrocyte distribution width (RBC) [Ratio] 14.1 % 11.0-15.0 [facility] Estimated glomerular filtrat ion rate (GFR) non- Americanon 03-23-2024 GFR/1.73 sq M.predicted among non-blacks MDRD (S/P/Bld) [Vol rate/Area] mL/min/{1.73_m2} >=60 [facility] Globulin Calc (S) [Mass/Vol] on 03-23-2024 Globulin (S) [Mass/Vol] 3.1 g/dL F [facility] Hematocrit Auto (Bld) [Volum e fraction]on 03-23-2024 Hematocrit (Bld) [Volume fraction] 37.3 % 36.0-48.0 [facility] Hemoglobin [Mass/volume] in Bloodon 03-23-2024 Hemoglobin (Bld) [Mass/Vol] 12.3 g/dL 12.0-16.0 [facility] Laboratory - Chemistry and C hemistry - challengeon 03-23-2024 Albumin [Mass/Vol] 3.6 g/dL 3.4-5.0 [facility] ALP [Catalytic activity/Vol] 43 U/L Low 46-116 [facility] ALT [Catalytic activity/Vol] 44 U/L 14-59 [facility] AST [Catalytic activity/Vol] 39 U/L High 15-37 [facility] Bilirubin [Mass/Vol] 0.5 mg/dL 0.2-1.0 [facility] Calcium [Mass/Vol] 8.5 mg/dL 8.5-10.1 [facility] Chloride [Moles/Vol] 103 mmol/L 98-107 [facility] CO2 [Moles/Vol] 29.6 mmol/L 21.0-32.0 [facility] Creatinine [Mass/Vol] 0.71 mg/dL 0.55-1.02 [facility] GFR/1.73 sq M.predicted MDRD (S/P/Bld) [Vol rate/Area] mL/min/{1.73_m2} >=60 [facility] Glucose [Mass/Vol] 81 mg/dL 74-106 [facility] Potassium [Moles/Vol] 4.0 mmol/L 3.5-5.1 [facility] Protein [Mass/Vol] 6.7 g/dL 6.4-8.2 [facility] Sodium [Moles/Vol] 138 mmol/L 136-145 [facility] Urea nitrogen [Mass/Vol] 11.0 mg/dL 7.0-18.0 [facility] Urea nitrogen/Creatinine [Mass ratio] 15.5 mg/mg [facility] Bilirubin Ql (U) MODERATE Abnormal NEGATIVE [facility] Glucose (U) [Mass/Vol] Negative NEGATIVE [facility] Ketones Ql (U) Negative NEGATIVE [facility] pH (U) 6.5 [pH] 5.0-9.0 [facility] Specific gravity (U) [Rel density] 1.010 1.005-1.025 [facility] Urobilinogen Qn (U) 0.2 {Paul'U}/dL 0.2-1.0 [facility] Laboratory - Hematology and Cell countson 03-23-2024 ESR (Bld) [Velocity] 28 mm/h <=30 [facility] Immature granulocytes/100 WBC (Bld) 0.5 % 0.0-0.5 [facility] Laboratory - Specimen inform ationon 03-23-2024 Appearance (U) CLEAR CLEAR [facility] Color (U) LT. YELLOW YELLOW [facility] Laboratory - Urinalysison Leukocyte esterase Test strip Ql (U) LARGE Abnormal NEGATIVE [facility] Mucus Ql (Urine sed) NONE SEEN NONE SEEN [facility] Nitrite Ql (U) Negative NEGATIVE [facility] Protein Ql (U) Negative NEG/TRACE [facility] Leukocytes [#/volume] correc sandip for nucleated erythrocytes in Blood by Automated counon 03-23-2024 WBC corrected for nucl RBC Auto (Bld) [#/Vol] 5.8 10 3/uL 4.0-11.0 [facility] Lymphocytes Auto (Bld) [#/Vo l]on 03-23-2024 Lymphocytes (Bld) [#/Vol] 1.1 10 3/uL Low 1.2-3.8 [facility] Lymphocytes/100 WBC Auto (Bl d)on 03-23-2024 Lymphocytes/100 WBC (Bld) 19.0 % Low 20.5-60.0 [facility] MCH Auto (RBC) [Entitic mass ]on 03-23-2024 MCH (RBC) [Entitic mass] 31.8 pg 26.7-34.0 [facility] MCHC Auto (RBC) [Mass/Vol]on 03-23-2024 MCHC (RBC) [Mass/Vol] 33.0 g/dL 29.9-35.2 [facility] MCV Auto (RBC) [Entitic vol] on 03-23-2024 MCV (RBC) [Entitic vol] 96.4 fL 81.0-99.0 [facility] Monocytes Auto (Bld) [#/Vol] on 03-23-2024 Monocytes (Bld) [#/Vol] 0.5 10 3/uL 0.3-0.8 [facility] Monocytes/100 WBC Auto (Bld) on 03-23-2024 Monocytes/100 WBC (Bld) 9.3 % 1.7-12.0 [facility] Neutrophils Auto (Bld) [#/Vo l]on 03-23-2024 Neutrophils (Bld) [#/Vol] 3.9 10 3/uL 1.4-6.5 [facility] Neutrophils/100 WBC Auto (Bl d)on 03-23-2024 Neutrophils/100 WBC (Bld) 67.7 % 43.0-75.0 [facility] No Panel Informationon 03-23 Eosinophils # (Auto) 0.1 10 3/uL 0.0-0.7 [facility] Immature Granulocyte # (Auto) 0.03 10 3/uL 0.00-0.03 [facility] Total Complement (CH50) 60 U/mL >41 [facility] Comment on above: Age Male Female 3 [...] to determine out of range values.Performed at: [employer] [facility] [address] [id number] Director: Santiago Madrid PhD, Phone: [phone] Urine Bacteria TRACE #/HPF Abnormal NONE SEEN [facility] Urine Occult Blood Negative NEGATIVE [facility] Urine Other Casts NONE SEEN #/LPF NONE SEEN [facility] Urine Other Crystals None Seen #/HPF None Seen [facility] Urine RBC 2-5 #/HPF Abnormal 0-2 [facility] Urine Squamous Epithelial Cells FEW #/LPF Abnormal NONE/RARE [facility] Urine Transitional Epithelial Cells RARE #/LPF Abnormal NONE SEEN [facility] Urine WBC 10-20 #/HPF Abnormal NONE SEEN [facility] Platelet mean volume Auto (B ld) [Entitic vol]on 03-23-2024 Platelet mean volume (Bld) [Entitic vol] 9.4 fL Low 9.5-13.5 [facility] Platelets Auto (Bld) [#/Vol] on 03-23-2024 Platelets (Bld) [#/Vol] 192 10 3/uL 150-450 [facility] RBC Auto (Bld) [#/Vol]on RBC (Bld) [#/Vol] 3.87 10 6/uL Low 4.20-5.40 [facility] Serum or plasma albumin/glob ulin mass ratioon 03-23-2024 Albumin/Globulin [Mass ratio] 1.2 {ratio} [facility] Serum or plasma anion gap de terminationon 03-23-2024 Anion gap [Moles/Vol] 9.4 mmol/L [facility] Serum or plasma complement C 3 measurement (mass/volume)on 03-23-2024 Complement C3 [Mass/Vol] 120 mg/dL 82-167 [facility] Serum or plasma complement C 4 measurement (mass/volume)on 03-23-2024 Complement C4 [Mass/Vol] 22 mg/dL 12-38 [facility] Comment on above: Performed at: [facility] [id number] [place], [place] [id number] Director: Santiago Madrid PhD, Phone: [phone] Basophils Auto (Bld) [#/Vol] on 03-09-2024 Basophils (Bld) [#/Vol] 0.1 10 3/uL 0.0-0.1 [facility] Basophils/100 WBC Auto (Bld) on 03-09-2024 Basophils/100 WBC (Bld) 1.3 % 0.2-2.0 [facility] Eosinophils/100 WBC Auto (Bl d)on 03-09-2024 Eosinophils/100 WBC (Bld) 1.5 % 0.9-7.0 [facility] Erythrocyte distribution wid th Auto (RBC) [Ratio]on 03-09-2024 Erythrocyte distribution width (RBC) [Ratio] 14.0 % 11.0-15.0 [facility] Estimated glomerular filtrat ion rate (GFR) non- Americanon 03-09-2024 GFR/1.73 sq M.predicted among non-blacks MDRD (S/P/Bld) [Vol rate/Area] mL/min/{1.73_m2} >=60 [facility] Globulin Calc (S) [Mass/Vol] on 03-09-2024 Globulin (S) [Mass/Vol] 3.5 g/dL [facility] Hematocrit Auto (Bld) [Volum e fraction]on 03-09-2024 Hematocrit (Bld) [Volume fraction] 40.2 % 36.0-48.0 [facility] Hemoglobin [Mass/volume] in Bloodon 03-09-2024 Hemoglobin (Bld) [Mass/Vol] 13.1 g/dL 12.0-16.0 [facility] Laboratory - Chemistry and C hemistry - challengeon 03-09-2024 Albumin [Mass/Vol] 4.0 g/dL 3.4-5.0 [facility] ALP [Catalytic activity/Vol] 44 U/L Low 46-116 [facility] ALT [Catalytic activity/Vol] 34 U/L 14-59 [facility] AST [Catalytic activity/Vol] 24 U/L 15-37 [facility] Bilirubin [Mass/Vol] 0.4 mg/dL 0.2-1.0 [facility] Calcium [Mass/Vol] 9.1 mg/dL 8.5-10.1 [facility] Chloride [Moles/Vol] 100 mmol/L 98-107 [facility] CO2 [Moles/Vol] 27.7 mmol/L 21.0-32.0 [facility] Creatinine [Mass/Vol] 0.73 mg/dL 0.55-1.02 [facility] GFR/1.73 sq M.predicted MDRD (S/P/Bld) [Vol rate/Area] mL/min/{1.73_m2} >=60 [facility] Glucose [Mass/Vol] 84 mg/dL 74-106 [facility] Potassium [Moles/Vol] 4.1 mmol/L 3.5-5.1 [facility] Protein [Mass/Vol] 7.5 g/dL 6.4-8.2 [facility] Sodium [Moles/Vol] 137 mmol/L 136-145 [facility] Urea nitrogen [Mass/Vol] 15.0 mg/dL 7.0-18.0 [facility] Urea nitrogen/Creatinine [Mass ratio] 20.5 mg/mg [facility] Bilirubin Ql (U) Negative NEGATIVE [facility] Glucose (U) [Mass/[facility]] [facility] Ketones Ql (U) Negative NEGATIVE [facility] pH (U) 6.5 [pH] 5.0-9.0 [facility] Specific gravity (U) [Rel density] <=1.005 Abnormal 1.005-1.025 [facility] Urobilinogen Qn (U) 0.2 {Paul'U}/dL 0.2-1.0 [facility] Laboratory - Hematology and Cell countson 03-09-2024 ESR (Bld) [Velocity] 43 mm/h High <=30 [facility] Immature granulocytes/100 WBC (Bld) 0.3 % 0.0-0.5 [facility] Laboratory - Specimen inform ationon 03-09-2024 Appearance (U) CLEAR CLEAR [facility] Color (U) LT. YELLOW YELLOW [facility] Laboratory - Urinalysison Leukocyte esterase Test strip Ql (U) SMALL Abnormal NEGATIVE [facility] Mucus Ql (Urine sed) NONE SEEN NONE SEEN [facility] Nitrite Ql (U) Negative NEGATIVE [facility] Protein Ql (U) Negative NEG/TRACE [facility] Leukocytes [#/volume] correc sandip for nucleated erythrocytes in Blood by Automated counon 03-09-2024 WBC corrected for nucl RBC Auto (Bld) [#/Vol] 6.8 10 3/uL 4.0-11.0 [facility] Lymphocytes Auto (Bld) [#/Vo l]on 03-09-2024 Lymphocytes (Bld) [#/Vol] 1.2 10 3/uL 1.2-3.8 [facility] Lymphocytes/100 WBC Auto (Bl d)on 03-09-2024 Lymphocytes/100 WBC (Bld) 17.7 % Low 20.5-60.0 [facility] MCH Auto (RBC) [Entitic mass ]on 03-09-2024 MCH (RBC) [Entitic mass] 31.4 pg 26.7-34.0 [facility] MCHC Auto (RBC) [Mass/Vol]on 03-09-2024 MCHC (RBC) [Mass/Vol] 32.6 g/dL 29.9-35.2 [facility] MCV Auto (RBC) [Entitic vol] on 03-09-2024 MCV (RBC) [Entitic vol] 96.4 fL 81.0-99.0 [facility] Monocytes Auto (Bld) [#/Vol] on 03-09-2024 Monocytes (Bld) [#/Vol] 0.5 10 3/uL 0.3-0.8 [facility] Monocytes/100 WBC Auto (Bld) on 03-09-2024 Monocytes/100 WBC (Bld) 7.9 % 1.7-12.0 [facility] Neutrophils Auto (Bld) [#/Vo l]on 03-09-2024 Neutrophils (Bld) [#/Vol] 4.9 10 3/uL 1.4-6.5 [facility] Neutrophils/100 WBC Auto (Bl d)on 03-09-2024 Neutrophils/100 WBC (Bld) 71.3 % 43.0-75.0 [facility] No Panel Informationon 03-09 Eosinophils # (Auto) 0.1 10 3/uL 0.0-0.7 [facility] Immature Granulocyte # (Auto) 0.02 10 3/uL 0.00-0.03 [facility] Total Complement (CH50) >60 U/mL >41 [facility] Comment on above: Age Male Female 3 [...] to determine out of range values.Performed at: [employer] [facility] [id number] Director: Santiago Madrid PhD, Phone: [phone] Urine Bacteria TRACE #/HPF Abnormal NONE SEEN [facility] Urine Occult Blood Negative NEGATIVE [facility] Urine Other Casts NONE SEEN #/LPF NONE SEEN [facility] Urine Other Crystals None Seen #/HPF None Seen [facility] Urine RBC NONE SEEN #/HPF 0-2 [facility] Urine Squamous Epithelial Cells FEW #/LPF Abnormal NONE/RARE [facility] Urine WBC 2-5 #/HPF Abnormal NONE SEEN [facility] Platelet mean volume Auto (B ld) [Entitic vol]on 03-09-2024 Platelet mean volume (Bld) [Entitic vol] 9.2 fL Low 9.5-13.5 [facility] Platelets Auto (Bld) [#/Vol] on 03-09-2024 Platelets (Bld) [#/Vol] 226 10 3/uL 150-450 [facility] RBC Auto (Bld) [#/Vol]on RBC (Bld) [#/Vol] 4.17 10 6/uL Low 4.20-5.40 [facility] Serum or plasma albumin/glob ulin mass ratioon 03-09-2024 Albumin/Globulin [Mass ratio] 1.1 {ratio} [facility] Serum or plasma anion gap de terminationon 03-09-2024 Anion gap [Moles/Vol] 13.4 mmol/L [facility] or plasma complement C 3 measurement (mass/volume)on 03-09-2024 Complement C3 [Mass/Vol] 140 mg/dL 82-167 [facility] [facility] Serum or plasma complement C 4 measurement (mass/volume)on 03-09-2024 Complement C4 [Mass/Vol] 24 mg/dL 12-38 [facility] Comment on above: Performed at: [address] [id number] Director: Santiago Madrid PhD, Phone: [phone] Basophils Auto (Bld) [#/Vol] on 02-24-2024 Basophils (Bld) [#/Vol] 0.1 10 3/uL 0.0-0.1 [facility] Basophils/100 WBC Auto (Bld) on 02-24-2024 Basophils/100 WBC (Bld) 1.3 % 0.2-2.0 [facility] Eosinophils/100 WBC Auto (Bl d)on 02-24-2024 Eosinophils/100 WBC (Bld) 1.4 % 0.9-7.0 [facility] Erythrocyte distribution wid th Auto (RBC) [Ratio]on 02-24-2024 Erythrocyte distribution width (RBC) [Ratio] 13.7 % 11.0-15.0 [facility] Estimated glomerular filtrat ion rate (GFR) non- Americanon 02-24-2024 GFR/1.73 sq M.predicted among non-blacks MDRD (S/P/Bld) [Vol rate/Area] mL/min/{1.73_m2} >=60 [facility] Globulin Calc (S) [Mass/Vol] on 02-24-2024 Globulin (S) [Mass/Vol] 3.3 g/dL F [facility] Hematocrit Auto (Bld) [Volum e fraction]on 02-24-2024 Hematocrit (Bld) [Volume fraction] 39.6 % 36.0-48.0 [facility] Hemoglobin [Mass/volume] in Bloodon 02-24-2024 Hemoglobin (Bld) [Mass/Vol] 12.9 g/dL 12.0-16.0 [facility] Laboratory - Chemistry and C hemistry - challengeon 02-24-2024 Albumin [Mass/Vol] 3.9 g/dL 3.4-5.0 [facility] ALP [Catalytic activity/Vol] 41 U/L Low 46-116 [facility] ALT [Catalytic activity/Vol] 27 U/L 14-59 [facility] AST [Catalytic activity/Vol] 23 U/L 15-37 [facility] Bilirubin [Mass/Vol] 0.5 mg/dL 0.2-1.0 [facility] Calcium [Mass/Vol] 8.9 mg/dL 8.5-10.1 [facility] Chloride [Moles/Vol] 100 mmol/L 98-107 [facility] CO2 [Moles/Vol] 26.2 mmol/L 21.0-32.0 [facility] Creatinine [Mass/Vol] 0.69 mg/dL 0.55-1.02 [facility] GFR/1.73 sq M.predicted MDRD (S/P/Bld) [Vol rate/Area] mL/min/{1.73_m2} >=60 [facility] Glucose [Mass/Vol] 85 mg/dL 74-106 [facility] Potassium [Moles/Vol] 4.0 mmol/L 3.5-5.1 [facility] Protein [Mass/Vol] 7.2 g/dL 6.4-8.2 [facility] Sodium [Moles/Vol] 136 mmol/L 136-145 [facility] Urea nitrogen [Mass/Vol] 17.0 mg/dL 7.0-18.0 [facility] Urea nitrogen/Creatinine [Mass ratio] 24.6 mg/mg [facility] Bilirubin Ql (U) LARGE Abnormal NEGATIVE [facility] Glucose (U) [Mass/Vol] [facility] Ketones Ql (U) Negative NEGATIVE [facility] pH (U) 6.5 [pH] 5.0-9.0 [facility] Specific gravity (U) [Rel density] 1.025 1.005-1.025 [facility] Urobilinogen Qn (U) 0.2 {Paul'U}/dL 0.2-1.0 [facility] Laboratory - Hematology and Cell countson 02-24-2024 ESR (Bld) [Velocity] 84 mm/h High <=30 [facility] Immature granulocytes/100 WBC (Bld) 0.3 % 0.0-0.5 [facility] Laboratory - Specimen inform ationon 02-24-2024 Appearance (U) CLEAR CLEAR [facility] Color (U) LT. YELLOW YELLOW [facility] Laboratory - Urinalysison Leukocyte esterase Test strip Ql (U) LARGE Abnormal NEGATIVE [facility] Mucus Ql (Urine sed) NONE SEEN NONE SEEN [facility] Nitrite Ql (U) Negative NEGATIVE [facility] Protein Ql (U) TRACE mg/dL NEG/TRACE [facility] Leukocytes [#/volume] correc sandip for nucleated erythrocytes in Blood by Automated counon 02-24-2024 WBC corrected for nucl RBC Auto (Bld) [#/Vol] 7.2 10 3/uL 4.0-11.0 [facility] Lymphocytes Auto (Bld) [#/Vo l]on 02-24-2024 Lymphocytes (Bld) [#/Vol] 1.2 10 3/uL 1.2-3.8 [facility] Lymphocytes/100 WBC Auto (Bl d)on 02-24-2024 Lymphocytes/100 WBC (Bld) 16.7 % Low 20.5-60.0 [facility] MCH Auto (RBC) [Entitic mass ]on 02-24-2024 MCH (RBC) [Entitic mass] 31.2 pg 26.7-34.0 [facility] MCHC Auto (RBC) [Mass/Vol]on 02-24-2024 MCHC (RBC) [Mass/Vol] 32.6 g/dL 29.9-35.2 [facility] MCV Auto (RBC) [Entitic vol] on 02-24-2024 MCV (RBC) [Entitic vol] 95.7 fL 81.0-99.0 [facility] Monocytes Auto (Bld) [#/Vol] on 02-24-2024 Monocytes (Bld) [#/Vol] 0.7 10 3/uL 0.3-0.8 [facility] Monocytes/100 WBC Auto (Bld) on 02-24-2024 Monocytes/100 WBC (Bld) 9.2 % 1.7-12.0 [facility] Neutrophils Auto (Bld) [#/Vo l]on 02-24-2024 Neutrophils (Bld) [#/Vol] 5.1 10 3/uL 1.4-6.5 [facility] Neutrophils/100 WBC Auto (Bl d)on 02-24-2024 Neutrophils/100 WBC (Bld) 71.1 % 43.0-75.0 [facility] No Panel Informationon 02-23 Eosinophils # (Auto) 0.1 10 3/uL 0.0-0.7 [facility] Immature Granulocyte # (Auto) 0.02 10 3/uL 0.00-0.03 [facility] Total Complement (CH50) >60 U/mL >41 [facility] Comment on above: Age Male Female 3 [...] determine out of range values.Performed at: - [facility] [address] [id number] Director: Santiago Madrid PhD, Phone: [phone] Urine Bacteria SMALL #/HPF Abnormal NONE SEEN [facility] Urine Occult Blood Negative NEGATIVE [facility] Urine Other Casts NONE SEEN #/LPF NONE SEEN [facility] Urine Other Crystals None Seen #/HPF None Seen [facility] Urine RBC 2-5 #/HPF Abnormal 0-2 [facility] Urine Squamous Epithelial Cells MANY #/LPF Abnormal NONE/RARE [facility] Urine WBC 20-50 #/HPF Abnormal NONE SEEN [facility] Platelet mean volume Auto (B ld) [Entitic vol]on 02-24-2024 Platelet mean volume (Bld) [Entitic vol] 9.4 fL Low 9.5-13.5 [facility] Platelets Auto (Bld) [#/Vol] on 02-24-2024 Platelets (Bld) [#/Vol] 222 10 3/uL 150-450 [facility] RBC Auto (Bld) [#/Vol]on RBC (Bld) [#/Vol] 4.14 10 6/uL Low 4.20-5.40 [facility] Serum or plasma albumin/glob ulin mass ratioon 02-24-2024 Albumin/Globulin [Mass ratio] 1.2 {ratio} [facility] Serum or plasma anion gap de terminationon 02-24-2024 Anion gap [Moles/Vol] 13.8 mmol/L [facility] Serum or plasma complement C 3 measurement (mass/volume)on 02-24-2024 Complement C3 [Mass/Vol] 133 mg/dL 82-167 [facility] Serum or plasma complement C 4 measurement (mass/volume)on 02-24-2024 Complement C4 [Mass/Vol] 24 mg/dL 12-38 [facility] Comment on above: Performed at: [address] Director: Santiago Madrid PhD, Phone: [phone] XR knee LT 2Von 02-23-2024 XR knee LT 2V [facility] [address] [place] [address] XRay Report Signed Patient: Genna Herrera MR#: [id number] 52 : 1950 Acct:[id number] Age/Sex: 73 / F ADM Date: 02/23/24 Loc: [facility] Room: Type: [facility] Attending Dr: Domingo George DO Copies to: Domingo George DO Ordering Provider: Domingo George DO Date of Service: 02/23/24 XR/XR knee RT 4V*: M25.561 - Pain in right knee ([id number]) XR/XR knee LT 2V: needs weightbearing XR [...] David Corley M.D.02/23/2024 10:01 AM Dictation Location: [place] [address] Transcribed By: [facility] 02/23/24 1001 Dictated By: David Corley II, MD 02/23/24 0959 Signed By: 02/23/24 1001 Normal [facility] Urine Cultureon 02-16-2024 Bacteria identified Cx Nom (U) 20,000 colonies/ml mixed bacterial skin contaminants 2 Days PERFORMED BY: [facility] [address] [place] [address] PATHOLOGIST C [employer] DEVELOPER ROSLYN TALLEY M.D. Normal [facility] Comment on above: Performed By: #### C UU ####[facility] [place] [address] [facility] Urine culture routineOrdered By: Casandra Chopra on 02-16-2024 Bacteria identified Cx Nom (U) 2 Days [facility] Basophils Auto (Bld) [#/Vol] on 02-10-2024 Basophils (Bld) [#/Vol] 0.1 10 3/uL 0.0-0.1 [facility] Basophils/100 WBC Auto (Bld) on 02-10-2024 Basophils/100 WBC (Bld) 1.6 % 0.2-2.0 [facility] Eosinophils/100 WBC Auto (Bl d)on 02-10-2024 Eosinophils/100 WBC (Bld) 1.8 % 0.9-7.0 [facility] Erythrocyte distribution wid th Auto (RBC) [Ratio]on 02-10-2024 Erythrocyte distribution width (RBC) [Ratio] 13.2 % 11.0-15.0 [facility] Estimated glomerular filtrat ion rate (GFR) non- Americanon 02-10-2024 GFR/1.73 sq M.predicted among non-blacks MDRD (S/P/Bld) [Vol rate/Area] mL/min/{1.73_m2} >=60 [facility] Fine granular cast count in urine sediment by microscopy (number/low power field )on 02-10-2024 Fine Granular Casts LM.LPF (Urine sed) [#/Area] RARE [facility] Globulin Calc (S) [Mass/Vol] on 02-10-2024 Globulin (S) [Mass/Vol] 3.1 g/dL [facility] Hematocrit Auto (Bld) [Volum e fraction]on 02-10-2024 Hematocrit (Bld) [Volume fraction] 38.7 % 36.0-48.0 [facility] Hemoglobin [Mass/volume] in Bloodon 02-10-2024 Hemoglobin (Bld) [Mass/Vol] 12.7 g/dL 12.0-16.0 [facility] Laboratory - Chemistry and C hemistry - challengeon 02-10-2024 Albumin [Mass/Vol] 3.8 g/dL 3.4-5.0 [facility] ALP [Catalytic activity/Vol] 42 U/L Low 46-116 [facility] ALT [Catalytic activity/Vol] 22 U/L 14-59 [facility] AST [Catalytic activity/Vol] 21 U/L 15-37 [facility] Bilirubin [Mass/Vol] 0.5 mg/dL 0.2-1.0 [facility] Calcium [Mass/Vol] 9.0 mg/dL 8.5-10.1 [facility] Chloride [Moles/Vol] 99 mmol/L 98-107 [facility] CO2 [Moles/Vol] 24.9 mmol/L 21.0-32.0 [facility] Creatinine [Mass/Vol] 0.80 mg/dL 0.55-1.02 [facility] GFR/1.73 sq M.predicted MDRD (S/P/Bld) [Vol rate/Area] mL/min/{1.73_m2} >=60 [facility] Glucose [Mass/Vol] 85 mg/dL 74-106 [facility] Potassium [Moles/Vol] 4.2 mmol/L 3.5-5.1 [facility] Protein [Mass/Vol] 6.9 g/dL 6.4-8.2 [facility] Sodium [Moles/Vol] 136 mmol/L 136-145 [facility] Urea nitrogen [Mass/Vol] 15.0 mg/dL 7.0-18.0 [facility] Urea nitrogen/Creatinine [Mass ratio] 18.8 mg/mg [facility] Bilirubin Ql (U) MODERATE Abnormal NEGATIVE [facility] Glucose (U) [Mass/Vol] Negative NEGATIVE [facility] Ketones Ql (U) Negative NEGATIVE [facility] pH (U) 7.0 [pH] 5.0-9.0 [facility] Specific gravity (U) [Rel density] 1.010 1.005-1.025 [facility] Urobilinogen Qn (U) 0.2 {Paul'U}/dL 0.2-1.0 [facility] Laboratory - Hematology and Cell countson 02-10-2024 ESR (Bld) [Velocity] 73 mm/h High <=30 [facility] Immature granulocytes/100 WBC (Bld) 0.2 % 0.0-0.5 [facility] Laboratory - Specimen inform ationon 02-10-2024 Appearance (U) CLEAR CLEAR [facility] Color (U) LT. YELLOW YELLOW [facility] Laboratory - Urinalysison Leukocyte esterase Test strip Ql (U) MODERATE Abnormal NEGATIVE [facility] Mucus Ql (Urine sed) TRACE Abnormal NONE SEEN [facility] Nitrite Ql (U) Negative NEGATIVE [facility] Protein Ql (U) Negative NEG/TRACE [facility] Leukocytes [#/volume] correc sandip for nucleated erythrocytes in Blood by Automated counon 02-10-2024 WBC corrected for nucl RBC Auto (Bld) [#/Vol] 5.7 10 3/uL 4.0-11.0 [facility] Lymphocytes Auto (Bld) [#/Vo l]on 02-10-2024 Lymphocytes (Bld) [#/Vol] 1.0 10 3/uL Low 1.2-3.8 [facility] Lymphocytes/100 WBC Auto (Bl d)on 02-10-2024 Lymphocytes/100 WBC (Bld) 17.1 % Low 20.5-60.0 [facility] MCH Auto (RBC) [Entitic mass ]on 02-10-2024 MCH (RBC) [Entitic mass] 31.1 pg 26.7-34.0 [facility] MCHC Auto (RBC) [Mass/Vol]on 02-10-2024 MCHC (RBC) [Mass/Vol] 32.8 g/dL 29.9-35.2 [facility] MCV Auto (RBC) [Entitic vol] on 02-10-2024 MCV (RBC) [Entitic vol] 94.6 fL 81.0-99.0 [facility] Monocytes Auto (Bld) [#/Vol] on 02-10-2024 Monocytes (Bld) [#/Vol] 0.5 10 3/uL 0.3-0.8 [facility] Monocytes/100 WBC Auto (Bld) on 02-10-2024 Monocytes/100 WBC (Bld) 8.3 % 1.7-12.0 [facility] Neutrophils Auto (Bld) [#/Vo l]on 02-10-2024 Neutrophils (Bld) [#/Vol] 4.0 10 3/uL 1.4-6.5 [facility] Neutrophils/100 WBC Auto (Bl d)on 02-10-2024 Neutrophils/100 WBC (Bld) 71.0 % 43.0-75.0 [facility] No Panel Informationon 02-09 Eosinophils # (Auto) 0.1 10 3/uL 0.0-0.7 [facility] Immature Granulocyte # (Auto) 0.01 10 3/uL 0.00-0.03 [facility] Total Complement (CH50) >60 U/mL >41 [facility] Comment on above: Age Male Female 3 [...] to determine out of range values.Performed at: [employer] [place] [id number] Director: Santiago Madrid PhD, Phone: [phone] Urine Bacteria SMALL #/HPF Abnormal NONE SEEN [facility] Urine Occult Blood Negative NEGATIVE [facility] Urine Other Casts SEEN #/LPF Abnormal NONE SEEN [facility] Urine Other Crystals None Seen #/HPF None Seen [facility] Urine RBC 0-2 #/HPF 0-2 [facility] Urine Renal Epithelial Cells FEW #/LPF Abnormal NONE SEEN [facility] Urine Squamous Epithelial Cells MODERATE #/LPF Abnormal NONE/RARE [facility] Urine WBC 10-20 #/HPF Abnormal NONE SEEN [facility] Platelet mean volume Auto (B ld) [Entitic vol]on 02-10-2024 Platelet mean volume (Bld) [Entitic vol] 9.1 fL Low 9.5-13.5 [facility] Platelets Auto (Bld) [#/Vol] on 02-10-2024 Platelets (Bld) [#/Vol] 195 10 3/uL 150-450 [facility] RBC Auto (Bld) [#/Vol]on RBC (Bld) [#/Vol] 4.09 10 6/uL Low 4.20-5.40 [facility] Serum or plasma albumin/glob ulin mass ratioon 02-10-2024 Albumin/Globulin [Mass ratio] 1.2 {ratio} [facility] Serum or plasma anion gap de terminationon 02-10-2024 Anion gap [Moles/Vol] 16.3 mmol/L [facility] Serum or plasma complement C 3 measurement (mass/volume)on 02-10-2024 Complement C3 [Mass/Vol] 129 mg/dL 82-167 [facility] Serum or plasma complement C 4 measurement (mass/volume)on 02-10-2024 Complement C4 [Mass/Vol] 22 mg/dL 12-38 [facility] Comment on above: Performed at: [address] [id number] Director: Santiago Madrid PhD, Phone: [phone] Basophils Auto (Bld) [#/Vol] on 01-25-2024 Basophils (Bld) [#/Vol] 0.1 10 3/uL 0.0-0.1 [facility] Basophils/100 WBC Auto (Bld) on 01-25-2024 Basophils/100 WBC (Bld) 1.5 % 0.2-2.0 [facility] Eosinophils/100 WBC Auto (Bl d)on 01-25-2024 Eosinophils/100 WBC (Bld) 1.7 % 0.9-7.0 [facility] Erythrocyte distribution wid th Auto (RBC) [Ratio]on 01-25-2024 Erythrocyte distribution width (RBC) [Ratio] 13.4 % 11.0-15.0 [facility] Estimated glomerular filtrat ion rate (GFR) non- Americanon 01-25-2024 GFR/1.73 sq M.predicted among non-blacks MDRD (S/P/Bld) [Vol rate/Area] mL/min/{1.73_m2} >=60 [facility] Globulin Calc (S) [Mass/Vol] on 01-25-2024 Globulin (S) [Mass/Vol] 3.5 g/dL [facility] Hematocrit Auto (Bld) [Volum e fraction]on 01-25-2024 Hematocrit (Bld) [Volume fraction] 40.6 % 36.0-48.0 [facility] Hemoglobin [Mass/volume] in Bloodon 01-25-2024 Hemoglobin (Bld) [Mass/Vol] 12.9 g/dL 12.0-16.0 [facility] Laboratory - Chemistry and C hemistry - challengeon 01-25-2024 Albumin [Mass/Vol] 3.8 g/dL 3.4-5.0 [facility] ALP [Catalytic activity/Vol] 43 U/L Low 46-116 [facility] ALT [Catalytic activity/Vol] 24 U/L 14-59 [facility] AST [Catalytic activity/Vol] 20 U/L 15-37 [facility] Bilirubin [Mass/Vol] 0.5 mg/dL 0.2-1.0 [facility] Calcium [Mass/Vol] 9.0 mg/dL 8.5-10.1 [facility] Chloride [Moles/Vol] 103 mmol/L 98-107 [facility] CO2 [Moles/Vol] 28.8 mmol/L 21.0-32.0 [facility] Creatinine [Mass/Vol] 0.78 mg/dL 0.55-1.02 [facility] GFR/1.73 sq M.predicted MDRD (S/P/Bld) [Vol rate/Area] mL/min/{1.73_m2} >=60 [facility] Glucose [Mass/Vol] 91 mg/dL 74-106 [facility] Potassium [Moles/Vol] 4.4 mmol/L 3.5-5.1 [facility] Protein [Mass/Vol] 7.3 g/dL 6.4-8.2 [facility] Sodium [Moles/Vol] 139 mmol/L 136-145 [facility] Urea nitrogen [Mass/Vol] 17.0 mg/dL 7.0-18.0 [facility] Urea nitrogen/Creatinine [Mass ratio] 21.8 mg/mg [facility] Bilirubin Ql (U) MODERATE Abnormal NEGATIVE [facility] Glucose (U) [Mass/Vol] Negative NEGATIVE Fi [facility] Ketones Ql (U) Negative NEGATIVE [facility] pH (U) 7.0 [pH] 5.0-9.0 [facility] Specific gravity (U) [Rel density] 1.015 1.005-1.025 [facility] Urobilinogen Qn (U) 0.2 {Paul'U}/dL 0.2-1.0 [facility] Laboratory - Hematology and Cell countson 01-25-2024 ESR (Bld) [Velocity] 72 mm/h High <=30 [facility] Immature granulocytes/100 WBC (Bld) 0.3 % 0.0-0.5 [facility] Laboratory - Specimen inform ationon 01-25-2024 Appearance (U) CLOUDY Abnormal CLEAR [facility] Color (U) LT. YELLOW YELLOW [facility] Laboratory - Urinalysison Leukocyte esterase Test strip Ql (U) LARGE Abnormal NEGATIVE [facility] Mucus Ql (Urine sed) NONE SEEN NONE SEEN [facility] Nitrite Ql (U) Negative NEGATIVE [facility] Protein Ql (U) Negative NEG/TRACE [facility] Leukocytes [#/volume] correc sandip for nucleated erythrocytes in Blood by Automated counon 01-25-2024 WBC corrected for nucl RBC Auto (Bld) [#/Vol] 5.9 10 3/uL 4.0-11.0 [facility] Lymphocytes Auto (Bld) [#/Vo l]on 01-25-2024 Lymphocytes (Bld) [#/Vol] 1.3 10 3/uL 1.2-3.8 [facility] Lymphocytes/100 WBC Auto (Bl d)on 01-25-2024 Lymphocytes/100 WBC (Bld) 21.3 % 20.5-60.0 [facility] MCH Auto (RBC) [Entitic mass ]on 01-25-2024 MCH (RBC) [Entitic mass] 30.5 pg 26.7-34.0 [facility] MCHC Auto (RBC) [Mass/Vol]on 01-25-2024 MCHC (RBC) [Mass/Vol] 31.8 g/dL 29.9-35.2 [facility] MCV Auto (RBC) [Entitic vol] on 01-25-2024 MCV (RBC) [Entitic vol] 96.0 fL 81.0-99.0 [facility] Monocytes Auto (Bld) [#/Vol] on 01-25-2024 Monocytes (Bld) [#/Vol] 0.6 10 3/uL 0.3-0.8 [facility] Monocytes/100 WBC Auto (Bld) on 01-25-2024 Monocytes/100 WBC (Bld) 9.3 % 1.7-12.0 [facility] Neutrophils Auto (Bld) [#/Vo l]on 01-25-2024 Neutrophils (Bld) [#/Vol] 3.9 10 3/uL 1.4-6.5 [facility] Neutrophils/100 WBC Auto (Bl d)on 01-25-2024 Neutrophils/100 WBC (Bld) 65.9 % 43.0-75.0 [facility] No Panel Informationon 01-24 Eosinophils # (Auto) 0.1 10 3/uL 0.0-0.7 [facility] Immature Granulocyte # (Auto) 0.02 10 3/uL 0.00-0.03 [facility] Total Complement (CH50) >60 U/mL >41 [facility] Comment on above: Age Male Female 3 [...] determine out of range values.Performed at: - [facility] [id number] Director: Santiago Madrid PhD, Phone: [phone] Urine Bacteria LARGE #/HPF Abnormal NONE SEEN [facility] Urine Occult Blood Negative NEGATIVE [facility] Urine Other Casts NONE SEEN #/LPF NONE SEEN [facility] Urine Other Crystals None Seen #/HPF None Seen [facility] Urine RBC 0-2 #/HPF 0-2 [facility] Urine Squamous Epithelial Cells MANY #/LPF Abnormal NONE/RARE [facility] Urine Transitional Epithelial Cells FEW #/LPF Abnormal NONE SEEN [facility] Urine WBC 75-100 #/HPF Abnormal NONE SEEN [facility] Platelet mean volume Auto (B ld) [Entitic vol]on 01-25-2024 Platelet mean volume (Bld) [Entitic vol] 9.2 fL Low 9.5-13.5 [facility] Platelets Auto (Bld) [#/Vol] on 01-25-2024 Platelets (Bld) [#/Vol] 208 10 3/uL 150-450 [facility] RBC Auto (Bld) [#/Vol]on RBC (Bld) [#/Vol] 4.23 10 6/uL 4.20-5.40 [facility] Serum or plasma albumin/glob ulin mass ratioon 01-25-2024 Albumin/Globulin [Mass ratio] 1.1 {ratio} [facility] Serum or plasma anion gap de terminationon 01-25-2024 Anion gap [Moles/Vol] 11.6 mmol/L Fi [facility] Serum or plasma complement C 3 measurement (mass/volume)on 01-25-2024 Complement C3 [Mass/Vol] 133 mg/dL 82-167 [facility] Serum or plasma complement C 4 measurement (mass/volume)on 01-25-2024 Complement C4 [Mass/Vol] 22 mg/dL 12-38 [facility] Comment on above: Performed at: [place] [id number] Director: Santiago Madrid PhD, Phone: [phone] Basophils Auto (Bld) [#/Vol] on 12-04-2023 Basophils (Bld) [#/Vol] 0.1 10 3/uL 0.0-0.1 [facility] Basophils/100 WBC Auto (Bld) on 12-04-2023 Basophils/100 WBC (Bld) 1.7 % 0.2-2.0 [facility] Eosinophils/100 WBC Auto (Bl d)on 12-04-2023 Eosinophils/100 WBC (Bld) 2.0 % 0.9-7.0 [facility] Erythrocyte distribution wid th Auto (RBC) [Ratio]on 12-04-2023 Erythrocyte distribution width (RBC) [Ratio] 13.3 % 11.0-15.0 [facility] Hematocrit Auto (Bld) [Volum e fraction]on 12-04-2023 Hematocrit (Bld) [Volume fraction] 37.8 % 36.0-48.0 [facility] Hemoglobin [Mass/volume] in Bloodon 12-04-2023 Hemoglobin (Bld) [Mass/Vol] 12.0 g/dL 12.0-16.0 [facility] Laboratory - Hematology and Cell countson 12-04-2023 Immature granulocytes/100 WBC (Bld) 0.2 % 0.0-0.5 [facility] Leukocytes [#/volume] correc sandip for nucleated erythrocytes in Blood by Automated counon 12-04-2023 WBC corrected for nucl RBC Auto (Bld) [#/Vol] 6.0 10 3/uL 4.0-11.0 [facility] Lymphocytes Auto (Bld) [#/Vo l]on 12-04-2023 Lymphocytes (Bld) [#/Vol] 1.1 10 3/uL Low 1.2-3.8 [facility] Lymphocytes/100 WBC Auto (Bl d)on 12-04-2023 Lymphocytes/100 WBC (Bld) 18.2 % Low 20.5-60.0 [facility] MCH Auto (RBC) [Entitic mass ]on 12-04-2023 MCH (RBC) [Entitic mass] 30.5 pg 26.7-34.0 [facility] MCHC Auto (RBC) [Mass/Vol]on 12-04-2023 MCHC (RBC) [Mass/Vol] 31.7 g/dL 29.9-35.2 [facility] MCV Auto (RBC) [Entitic vol] on 12-04-2023 MCV (RBC) [Entitic vol] 95.9 fL 81.0-99.0 [facility] Monocytes Auto (Bld) [#/Vol] on 12-04-2023 Monocytes (Bld) [#/Vol] 0.6 10 3/uL 0.3-0.8 [facility] Monocytes/100 WBC Auto (Bld) on 12-04-2023 Monocytes/100 WBC (Bld) 10.3 % 1.7-12.0 [facility] Neutrophils Auto (Bld) [#/Vo l]on 12-04-2023 Neutrophils (Bld) [#/Vol] 4.1 10 3/uL 1.4-6.5 [facility] Neutrophils/100 WBC Auto (Bl d)on 12-04-2023 Neutrophils/100 WBC (Bld) 67.6 % 43.0-75.0 [facility] No Panel Informationon 12-03 Eosinophils # (Auto) 0.1 10 3/uL 0.0-0.7 [facility] Immature Granulocyte # (Auto) 0.01 10 3/uL 0.00-0.03 [facility] [facility] Platelet mean volume Auto (B ld) [Entitic vol]on 12-04-2023 Platelet mean volume (Bld) [Entitic vol] 9.2 fL Low 9.5-13.5 [facility] Platelets Auto (Bld) [#/Vol] on 12-04-2023 Platelets (Bld) [#/Vol] 193 10 3/uL 150-450 [facility] RBC Auto (Bld) [#/Vol]on RBC (Bld) [#/Vol] 3.94 10 6/uL Low 4.20-5.40 [facility] [address] LUNG CANCER SCREENINGon 0 12-03-2022 [...] by: MARII TURCIOS Date: 2022-12-03 08:20 Normal [facility] CBC AUTO DIFFon 10-22-2022 BASO # 0.1 103/ul Normal 0.0-0.1 [facility] Comment on above: Performed By: #### C BC #### [facility] [address] [place] [address] Dr. Renato Weller Basophils/100 WBC (Bld) 1.5 % Normal 0.2-2.0 [facility] Comment on above: Performed By: #### C BC #### [facility] [address] [place] [address] Dr. Renato Weller EO # 0.1 103/ul Normal 0.0-0.7 [facility] Comment on above: Performed By: #### C BC #### [facility] [address] [place] [address] Dr. Renato Weller Eosinophils/100 WBC (Bld) 1.4 % Normal 0.9-7.0 [facility] Comment on above: Performed By: #### C BC #### [facility] [address] [place] [address] Dr. Renato Weller Erythrocyte distribution width (RBC) [Ratio] 13.4 % Normal 11.0-15.0 [facility] Comment on above: Performed By: #### C BC #### [facility] [address] [place] [address] Dr. Renato Weller Hematocrit (Bld) [Volume fraction] 40.8 % Normal 36.0-48.0 [facility] Comment on above: Performed By: #### C BC #### [facility] [address] [place] [address] Dr. Renato Weller Hemoglobin (Bld) [Mass/Vol] 12.9 g/dL Normal 12.0-16.0 [facility] Comment on above: Performed By: #### C BC #### [facility] [address] [place] [address] Dr. Renato Weller IG # 0.01 10e3/ul Normal 0.00-0.03 [facility] Comment on above: Performed By: #### C BC #### [facility] [address] [place] [address] Dr. Renato Weller IG % 0.2 % Normal 0.0-0.5 [facility] Comment on above: Performed By: #### C BC #### [facility] [address] [place] [address] Dr. Renato Weller LYMPH # 1.0 103/ul Critically low 1.2-3.8 [facility] Comment on above: Performed By: #### C BC #### [facility] [address] [place] [address] Dr. Renato Weller Lymphocytes/100 WBC (Bld) 16.2 % Critically low 20.5-60.0 [facility] Comment on above: Performed By: #### C BC #### [facility] [address] [place] [address] Dr. Renato Weller MANUAL DIFF REQ NO Normal [facility] Comment on above: Performed By: #### C BC #### [facility] [address] [place] [address] Dr. Renato Weller MCH (RBC) [Entitic mass] 30.2 pg Normal 26.7-34.0 [facility] Comment on above: Performed By: #### C BC #### [facility] [address] [place] [address] Dr. Renato Weller MCHC (RBC) [Mass/Vol] 31.6 g/dL Normal 29.9-35.2 [facility] Comment on above: Performed By: #### C BC #### [facility] [address] [place] [address] Dr. Renato Weller MCV (RBC) [Entitic vol] 95.6 fL Normal 81.0-99.0 [facility] Comment on above: Performed By: #### C BC #### [facility] [address] [place] [address] Dr. Renato Weller MONO # 0.5 103/ul Normal 0.3-0.8 [facility] Comment on above: Performed By: #### C BC #### [facility] [address] [place] [address] Dr. Renato Weller Monocytes/100 WBC (Bld) 8.2 % Normal 1.7-12.0 [facility] Comment on above: Performed By: #### C BC #### [facility] [address] [place] [address] Dr. Renato Weller NEUT # 4.3 103/ul Normal 1.4-6.5 [facility] Comment on above: Performed By: #### C BC #### [facility] [address] [place] [address] Dr. Renato Weller Neutrophils/100 WBC (Bld) 72.5 % Normal 43.0-75.0 [facility] Comment on above: Performed By: #### C BC #### [facility] [address] [place] [address] Dr. Renato Weller Platelet mean volume (Bld) [Entitic vol] 9.4 fL Critically low 9.5-13.5 [facility] Comment on above: Performed By: #### C BC #### [facility] [address] [place] [address] Dr. Renato Weller PLT 206 103/ul Normal 150-450 [facility] Comment on above: Performed By: #### C BC #### [facility] [address] [place] [address] Dr. Renato Weller RBC 4.27 106/ul Normal 4.20-5.40 [facility] Comment on above: Performed By: #### C BC #### [facility] [address] [place] [address] Dr. Renato Weller WBC 5.9 103/ul Normal 4.0-11.0 [facility] Comment on above: Performed By: #### C BC #### [facility] [address] [address] [address] Renato Weller LIPID PROFILEon 10-22-2022 CHOL-HDL RATIO NORM SEE BELOW Normal [facility] Comment on above: Result Comment: 3.3 - 4.4 LOW RISK 4.4 - 7.1 AVERAGE RISK 7.1 - 11.0 MODERATE RISK >11.0 HIGH RISK Performed By: #### L IPID, CMP #### [facility] [address] [address] [address] Renato Weller Cholesterol [Mass/Vol] 162 mg/dL Normal <=200 Th [facility] Comment on above: Performed By: #### L IPID, CMP #### [facility] [address] [address] [address] Renato Weller Cholesterol in HDL [Mass/Vol] 69 mg/dL Critically high 40-60 [facility] Comment on above: Performed By: #### L IPID, CMP #### [facility] [address] [address] [address] Renato Weller Cholesterol in LDL [Mass/Vol] 81.8 mg/dL Normal [facility] Comment on above: Performed By: #### L IPID, CMP #### [facility] [address] [address] [address] Renato Weller Cholesterol.total/Choles terol in HDL [Mass ratio] 2.3 {ratio} Normal [facility] Comment on above: Performed By: #### L IPID, CMP #### [facility] [address] [address] [address] Renato Weller HDL NORMAL > or = 60 mg/dl - LO W CARDIOVASCULAR RISK <40 mg/dl - HIGH CARDIOVASCULAR RISK Normal [facility] Comment on above: Performed By: #### L IPID, CMP #### [facility] [address] [address] [address] Renato Weller LDL CALC NORMAL SEE BELOW Normal [facility] Comment on above: Result Comment: <100 mg/dl OPTIMAL 100 - 129 mg/dl NEAR OR ABOVE OPTIMAL 130 - 159 mg/dl BORDERLINE HIGH 160 - 189 mg/dl HIGH >190 mg/dl VERY HIGH Performed By: #### L IPID, CMP #### [facility] [address] [address] [address] Renato Weller Triglyceride [Mass/Vol] 56 mg/dL Normal <=150 T [facility] Comment on above: Performed By: #### L IPID, CMP #### [facility] [address] [address] [address] Renato Weller VLDL CALC 11.2 mg/dL Normal [facility] Comment on above: Performed By: #### L IPID, CMP #### [facility] [address] [address] [address] Renato Weller PROF 14(COMP METB)on 023 Albumin [Mass/Vol] 3.7 g/dL Normal 3.4-5.0 [facility] Comment on above: Performed By: #### L IPID, CMP #### [facility] [address] [place] [address] Dr. Renato Weller Albumin/Globulin [Mass ratio] 1.1 {ratio} Normal [facility] Comment on above: Performed By: #### L IPID, CMP #### [facility] [address] [place] [address] Dr. Renato Weller ALP [Catalytic activity/Vol] 36 U/L Critically low 46-116 [facility] Comment on above: Performed By: #### L IPID, CMP #### [facility] [address] [place] [address] Dr. Renato Weller ALT [Catalytic activity/Vol] 24 U/L Normal 14-59 [facility] Comment on above: Performed By: #### L IPID, CMP #### [facility] [address] [address] [address] Renato Weller Anion gap [Moles/Vol] 12.2 mmol/L Normal [facility] Comment on above: Performed By: #### L IPID, CMP #### [facility] [address] [place] [address] Dr. Renato Weller AST [Catalytic activity/Vol] 18 U/L Normal 15-37 [facility] Comment on above: Performed By: #### L IPID, CMP #### [facility] [address] [address] [address] Renato Weller Bilirubin [Mass/Vol] 0.3 mg/dL Normal 0.2-1.0 [facility] Comment on above: Performed By: #### L IPID, CMP #### [facility] [address] [place] [address] Dr. Renato Weller Calcium [Mass/Vol] 9.0 mg/dL Normal 8.5-10.1 [facility] Comment on above: Performed By: #### L IPID, CMP #### [facility] [address] [place] [address] Dr. Renato Weller Chloride [Moles/Vol] 102 mmol/L Normal 98-107 [facility] Comment on above: Performed By: #### L IPID, CMP #### [facility] [address] [place] [address] Dr. Renato Weller CO2 [Moles/Vol] 29.1 mmol/L Normal 21.0-32.0 [facility] Comment on above: Performed By: #### L IPID, CMP #### [facility] [address] [place] [address] Dr. Renato Weller Creatinine [Mass/Vol] 0.83 mg/dL Normal 0.55-1.02 [facility] Comment on above: Performed By: #### L IPID, CMP #### [facility] [address] [place] [address] Dr. Renato Weller EGFR-AF ZIMBABWEAN >60 Normal >=60 [facility] Comment on above: Performed By: #### L IPID, CMP #### [facility] [address] [place] [address] Dr. Renato Weller EGFR-NON AF ZIMBABWEAN >60 Normal >=60 [facility] Comment on above: Performed By: #### L IPID, CMP #### [facility] [address] [place] [address] Dr. Renato Weller Globulin (S) [Mass/Vol] 3.5 g/dL Normal T [facility] Comment on above: Performed By: #### L IPID, CMP #### [facility] [address] [place] [address] Dr. Renato Weller Glucose [Mass/Vol] 85 mg/dL Normal 74-106 [facility] Comment on above: Performed By: #### L IPID, CMP #### [facility] [address] [place] [address] Dr. Renato Weller Potassium [Moles/Vol] 4.3 mmol/L Normal 3.5-5.1 [facility] Comment on above: Performed By: #### L IPID, CMP #### [facility] [address] [place] [address] Dr. Renato Weller Protein [Mass/Vol] 7.2 g/dL Normal 6.4-8.2 [facility] Comment on above: Performed By: #### L IPID, CMP #### [facility] [address] [place] [address] Dr. Renato Weller Sodium [Moles/Vol] 139 mmol/L Normal 136-145 [facility] Comment on above: Performed By: #### L IPID, CMP #### [facility] [address] [place] [address] Dr. Renato Weller Urea nitrogen [Mass/Vol] 14.0 mg/dL Normal 7.0-18.0 [facility] Comment on above: Performed By: #### L IPID, CMP #### [facility] [address] [place] [address] Dr. Renato Weller Urea nitrogen/Creatinine [Mass ratio] 16.9 mg/mg Normal [facility] Comment on above: Performed By: #### L IPID, CMP #### [facility] [address] [place] [address] Dr. Renato Weller C3 and C4 COMPLEMENTon 08-19 Complement C3, Serum 110 mg/dL Normal 82-167 [facility] Comment on above: Performed By: #### U AMIC #### [facility] [address] [place] [address] Dr. Renato Weller Complement C4, Serum 20 mg/dL Normal 12-38 [facility] Comment on above: Performed By: #### U AMIC #### [facility] [address] [place] [address] Dr. Renato Weller COMPLEMENT TOTAL (CH50)on Complement, Total (CH50) >60 Normal >41 [facility] Comment on above: Result [...] values. Performed By: #### C H50T #### [facility] [address] [place] [address] Dr. Renato Weller CBC AUTO DIFFon 08-18-2022 BASO # 0.1 103/ul Normal 0.0-0.1 [facility] Comment on above: Performed By: #### C H50T #### [facility] [address] [place] [address] Dr. Renato Weller Basophils/100 WBC (Bld) 1.8 % Normal 0.2-2.0 [facility] Comment on above: Performed By: #### C H50T #### [facility] [address] [place] [address] Dr. Renato Weller EO # 0.1 103/ul Normal 0.0-0.7 [facility] Comment on above: Performed By: #### C H50T #### [facility] [address] [place] [address] Dr. Renato Weller Eosinophils/100 WBC (Bld) 1.8 % Normal 0.9-7.0 [facility] Comment on above: Performed By: #### C H50T #### [facility] [address] [place] [address] Dr. Renato Weller Erythrocyte distribution width (RBC) [Ratio] 13.2 % Normal 11.0-15.0 [facility] Comment on above: Performed By: #### C H50T #### [facility] [address] [address] [address] Renato Weller Hematocrit (Bld) [Volume fraction] 39.9 % Normal 36.0-48.0 [facility] Comment on above: Performed By: #### C H50T #### [facility] [address] [place] [address] Dr. Renato Weller Hemoglobin (Bld) [Mass/Vol] 13.2 g/dL Normal 12.0-16.0 [facility] Comment on above: Performed By: #### C H50T #### [facility] [address] [place] [address] Dr. Renato Wleler IG # 0.02 10e3/ul Normal 0.00-0.03 [facility] Comment on above: Performed By: #### C H50T #### [facility] [address] [place] [address] Dr. Renato Weller IG % 0.4 % Normal 0.0-0.5 [facility] Comment on above: Performed By: #### C H50T #### [facility] [address] [place] [address] Dr. Renato Weller LYMPH # 1.1 103/ul Critically low 1.2-3.8 [facility] Comment on above: Performed By: #### C H50T #### [facility] [address] [place] [address] Dr. Renato Weller Lymphocytes/100 WBC (Bld) 18.4 % Critically low 20.5-60.0 [facility] Comment on above: Performed By: #### C H50T #### [facility] [address] [place] [address] Dr. Renato Weller MANUAL DIFF REQ NO Normal [facility] Comment on above: Performed By: #### C H50T #### [facility] [address] [place] [address] Dr. Renato Weller MCH (RBC) [Entitic mass] 31.0 pg Normal 26.7-34.0 [facility] Comment on above: Performed By: #### C H50T #### [facility] [address] [place] [address] Dr. Renato Weller MCHC (RBC) [Mass/Vol] 33.1 g/dL Normal 29.9-35.2 [facility] Comment on above: Performed By: #### C H50T #### [facility] [address] [place] [address] Dr. Renato Weller MCV (RBC) [Entitic vol] 93.7 fL Normal 81.0-99.0 [facility] Comment on above: Performed By: #### C H50T #### [facility] [address] [place] [address] Dr. Renato Weller MONO # 0.5 103/ul Normal 0.3-0.8 [facility] Comment on above: Performed By: #### C H50T #### [facility] [address] [place] [address] Dr. Renato Weller Monocytes/100 WBC (Bld) 8.6 % Normal 1.7-12.0 [facility] Comment on above: Performed By: #### C H50T #### [facility] [address] [place] [address] Dr. Renato Weller NEUT # 3.9 103/ul Normal 1.4-6.5 [facility] Comment on above: Performed By: #### C H50T #### [facility] [address] [place] [address] Dr. Renato Weller Neutrophils/100 WBC (Bld) 69.0 % Normal 43.0-75.0 [facility] Comment on above: Performed By: #### C H50T #### [facility] [address] [place] [address] Dr. Renato Weller Platelet mean volume (Bld) [Entitic vol] 9.4 fL Critically low 9.5-13.5 [facility] Comment on above: Performed By: #### C H50T #### [facility] [address] [place] [address] Dr. Renato Weller PLT 191 103/ul Normal 150-450 [facility] Comment on above: Performed By: #### C H50T #### [facility] [address] [place] [address] Dr. Renato Weller RBC 4.26 106/ul Normal 4.20-5.40 [facility] Comment on above: Performed By: #### C H50T #### [facility] [address] [place] [address] Dr. Renato Weller WBC 5.7 103/ul Normal 4.0-11.0 [facility] Comment on above: Performed By: #### C H50T #### [facility] [address] [place] [address] Dr. Renato Weller MAGNESIUMon 08-18-2022 Magnesium [Mass/Vol] 2.1 mg/dL Normal 1.8-2.4 [facility] Comment on above: Performed By: #### L IPID, CMP #### [facility] [address] [place] [address] Dr. Renato Weller PHOSPHORUSon 08-18-2022 Phosphate [Mass/Vol] 3.5 mg/dL Normal 2.6-4.7 [facility] Comment on above: Performed By: #### L IPID, CMP #### [facility] [address] [place] [address] Dr. Renato Weller PROF 14(COMP METB)on 023 Albumin [Mass/Vol] 3.7 g/dL Normal 3.4-5.0 [facility] Comment on above: Performed By: #### L IPID, CMP #### [facility] [address] [place] [address] Dr. Renato Weller Albumin/Globulin [Mass ratio] 1.2 {ratio} Normal [facility] Comment on above: Performed By: #### L IPID, CMP #### [facility] [address] [place] [address] Dr. Renato Weller ALP [Catalytic activity/Vol] 37 U/L Critically low 46-116 [facility] Comment on above: Performed By: #### L IPID, CMP #### [facility] [address] [address] [address] Renato Weller ALT [Catalytic activity/Vol] 18 U/L Normal 14-59 [facility] Comment on above: Performed By: #### L IPID, CMP #### [facility] [address] [address] [address] Renato Weller Anion gap [Moles/Vol] 13.5 mmol/L Normal Th [facility] Comment on above: Performed By: #### L IPID, CMP #### [facility] [address] [address] [address] Renato Weller AST [Catalytic activity/Vol] 19 U/L Normal 15-37 [facility] Comment on above: Performed By: #### L IPID, CMP #### [facility] [address] [place] [address] Dr. Renato Weller Bilirubin [Mass/Vol] 0.4 mg/dL Normal 0.2-1.0 [facility] Comment on above: Performed By: #### L IPID, CMP #### [facility] [address] [place] [address] Dr. Renato Weller Calcium [Mass/Vol] 8.7 mg/dL Normal 8.5-10.1 [facility] Comment on above: Performed By: #### L IPID, CMP #### [facility] [address] [place] [address] Dr. Renato Weller Chloride [Moles/Vol] 104 mmol/L Normal 98-107 [facility] Comment on above: Performed By: #### L IPID, CMP #### [facility] [address] [address] [address] Renato Weller CO2 [Moles/Vol] 27.8 mmol/L Normal 21.0-32.0 [facility] Comment on above: Performed By: #### L IPID, CMP #### [facility] [address] [address] [address] Renato Weller Creatinine [Mass/Vol] 0.67 mg/dL Normal 0.55-1.02 [facility] Comment on above: Performed By: #### L IPID, CMP #### [facility] [address] [address] [address] Renato Weller EGFR-AF ZIMBABWEAN >60 Normal >=60 [facility] Comment on above: Performed By: #### L IPID, CMP #### [facility] [address] [address] [address] Renato Weller EGFR-NON AF ZIMBABWEAN >60 Normal >=60 [facility] Comment on above: Performed By: #### L IPID, CMP #### [facility] [address] [address] [address] Renato Weller Globulin (S) [Mass/Vol] 3.0 g/dL Normal T [facility] Comment on above: Performed By: #### L IPID, CMP #### [facility] [address] [address] [address] Renato Weller Glucose [Mass/Vol] 87 mg/dL Normal 74-106 [facility] Comment on above: Performed By: #### L IPID, CMP #### [facility] [address] [address] [address] Renato Weller Potassium [Moles/Vol] 4.3 mmol/L Normal 3.5-5.1 [facility] Comment on above: Performed By: #### L IPID, CMP #### [facility] [address] [address] [address] Renato Weller Protein [Mass/Vol] 6.7 g/dL Normal 6.4-8.2 [facility] Comment on above: Performed By: #### L IPID, CMP #### [facility] [address] [address] [address] Renato Weller Sodium [Moles/Vol] 141 mmol/L Normal 136-145 [facility] Comment on above: Performed By: #### L IPID, CMP #### [facility] [address] [address] [address] Renato Weller Urea nitrogen [Mass/Vol] 11.0 mg/dL Normal 7.0-18.0 [facility] Comment on above: Performed By: #### L IPID, CMP #### [facility] [address] [place] [address] Dr. Renato Weller Urea nitrogen/Creatinine [Mass ratio] 16.4 mg/mg Normal [facility] Comment on above: Performed By: #### L IPID, CMP #### [facility] [address] [place] [address] Dr. Renato Weller SED RATE WESTERGRENon 2022 SED RATE 43 mm/hr Critically high <=30 [facility] Comment on above: Performed By: #### S EDR #### [facility] [address] [place] [address] Dr. Renato Weller UA RANDOM W/MICROSCOPICon BACTERIA NONE SEEN Normal NONE SEEN [facility] Comment on above: Performed By: #### U AMIC #### [facility] [address] [place] [address] Dr. Renato Weller Bilirubin Ql (U) LARGE Abnormal NEGATIVE [facility] Comment on above: Performed By: #### U AMIC #### [facility] [address] [place] [address] Dr. Renato Weller CAST NONE SEEN Normal NONE SEEN [facility] Comment on above: Performed By: #### U AMIC #### [facility] [address] [place] [address] Dr. Renato Weller Clarity (U) CLEAR Normal CLEAR [facility] Comment on above: Performed By: #### U AMIC #### [facility] [address] [place] [address] Dr. Renato Weller Color (U) LT. YELLOW Normal YELLOW [facility] Comment on above: Performed By: #### U AMIC #### [facility] [address] [place] [address] Dr. Renato Weller Crystals LM Nom (Urine sed) NONE SEEN Normal NONE SEEN [facility] Comment on above: Performed By: #### U AMIC #### [facility] [address] [place] [address] Dr. Renato Weller Epithelial cells LM Ql (Urine sed) NONE SEEN Normal NONE SEEN /RARE [facility] Comment on above: Performed By: #### U AMIC #### [facility] [address] [address] [address] Renato Weller Glucose Ql (U) Negative Normal NEGATIVE [facility] [facility] Comment on above: Performed By: #### U AMIC #### [facility] [address] [address] [address] Renato Weller Hemoglobin Ql (U) Negative Normal NEGATIVE [facility] Comment on above: Performed By: #### U AMIC #### [facility] [address] [address] [address] Renato Weller Ketones Ql (U) Negative Normal NEGATIVE [facility] Comment on above: Performed By: #### U AMIC #### [facility] [address] [place] [address] Dr. Renato Weller LEUKOCYTES SMALL Abnormal NEGATIVE [facility] Comment on above: Performed By: #### U AMIC #### [facility] [address] [address] [address] Renato Weller MUCOUS NONE SEEN Normal NONE SEEN [facility] Comment on above: Performed By: #### U AMIC #### [facility] [address] [address] [address] Renato Weller Nitrite Ql (U) Negative Normal NEGATIVE [facility] Comment on above: Performed By: #### U AMIC #### [facility] [address] [address] [address] Renato Weller pH (U) 7.0 [pH] Normal 5-9 [facility] Comment on above: Performed By: #### U AMIC #### [facility] [address] [address] [address] Renato Weller RBC 0-2 Normal 0-2 [facility] Comment on above: Performed By: #### U AMIC #### [facility] [address] [place] [address] Dr. Renato Weller SPEC GRAVITY 1.010 Normal 1.005-<=1.02 5 [facility] Comment on above: Performed By: #### U AMIC #### [facility] [address] [address] [address] Renato Weller UA PROTEIN Negative Normal NEGATIVE/ TRACE [facility] Comment on above: Performed By: #### U AMIC #### [facility] [address] [address] [address] Renato Weller Urobilinogen Qn (U) 0.2 {Paul'U}/dL Normal 0.2 - 1. 0 [facility] Comment on above: Performed By: #### U AMIC #### [facility] [address] [place] [address] Dr. Renato Weller WBC NONE SEEN Normal NONE SEEN [facility] Comment on above: Performed By: #### U AMIC #### [facility] [address] [place] [address] Dr. Renato Weller CULTURE URINEon 05-12-2022 CULTURE URINE Culture Observations : LIGHT GROWTH OF MIXED GENITAL ROMEL. NO POTENTIAL PATHOGENS SEEN. Normal [facility] Comment on above: Performed By: #### U AMIC #### [facility] [address] [place] [address] Dr. Renato Weller UA RANDOM W/MICROSCOPICon BACTERIA TRACE Abnormal NONE SEEN [facility] Comment on above: Performed By: #### C H50T #### [facility] [address] [place] [address] Dr. Renato Weller Bilirubin Ql (U) LARGE Abnormal NEGATIVE [facility] Comment on above: Performed By: #### C H50T #### [facility] [address] [place] [address] Dr. Renato Weller CAST NONE SEEN Normal NONE SEEN [facility] Comment on above: Performed By: #### C H50T #### [facility] [address] [place] [address] Dr. Renato Weller Clarity (U) CLEAR Normal CLEAR [facility] Comment on above: Performed By: #### C H50T #### [facility] [address] [place] [address] Dr. Renato Weller Color (U) LT. YELLOW Normal YELLOW [facility] Comment on above: Performed By: #### C H50T #### [facility] [address] [address] [address] Renato Weller Crystals LM Nom (Urine sed) NONE SEEN Normal NONE SEEN [facility] Comment on above: Performed By: #### C H50T #### [facility] [address] [address] [address] Renato Weller Epithelial cells LM Ql (Urine sed) MODERATE Abnormal NONE SEEN /RARE [facility] Comment on above: Performed By: #### C H50T #### [facility] [address] [address] [address] Renato Weller Glucose Ql (U) Negative Normal NEGATIVE [facility] Comment on above: Performed By: #### C H50T #### [facility] [address] [place] [address] Dr. Renato Weller Hemoglobin Ql (U) Negative Normal NEGATIVE [facility] Comment on above: Performed By: #### C H50T #### [facility] [address] [place] [address] Dr. Renato Weller Ketones Ql (U) Negative Normal NEGATIVE [facility] Comment on above: Performed By: #### C H50T #### [facility] [address] [place] [address] Dr. Renato Weller LEUKOCYTES SMALL Abnormal NEGATIVE [facility] Comment on above: Performed By: #### C H50T #### [facility] [address] [place] [address] Dr. Renato Weller MUCOUS NONE SEEN Normal NONE SEEN [facility] Comment on above: Performed By: #### C H50T #### [facility] [address] [place] [address] Dr. Renato Weller Nitrite Ql (U) Negative Normal NEGATIVE [facility] Comment on above: Performed By: #### C H50T #### [facility] [address] [place] [address] Dr. Renato Weller pH (U) 6.0 [pH] Normal 5-9 [facility] Comment on above: Performed By: #### C H50T #### [facility] [address] [place] [address] Dr. Renato Weller RBC 0-2 Normal 0-2 [facility] Comment on above: Performed By: #### C H50T #### [facility] [address] [place] [address] Dr. Renato Weller SPEC GRAVITY 1.025 Normal 1.005-<=1.02 5 [facility] Comment on above: Performed By: #### C H50T #### [facility] [address] [place] [address] Dr. Renato Weller UA PROTEIN Negative Normal NEGATIVE/ TRACE [facility] Comment on above: Performed By: #### C H50T #### [facility] [address] [place] [address] Dr. Renato Weller Urobilinogen Qn (U) 0.2 {Paul'U}/dL Normal 0.2 - 1. 0 [facility] Comment on above: Performed By: #### C H50T #### [facility] [address] [place] [address] Dr. Renato Weller WBC 5-10 Abnormal NONE SEEN [facility] Comment on above: Performed By: #### C H50T #### [facility] [address] [place] [address] Dr. Renato Weller CULTURE URINEon 05-02-2022 CULTURE URINE Culture Observations : MODERATE GROWTH OF MIXED GENITAL ROMEL. PLEASE RESUBMIT CLEAN CATCH MID-STREAM URINE IF CLINICALLY INDICATED. Normal [facility] Comment on above: Performed By: #### U AMIC #### [facility] [address] [place] [address] Dr. Renato Weller UA RANDOM W/MICROSCOPICon BACTERIA LARGE Abnormal NONE SEEN [facility] Comment on above: Performed By: #### U AMIC #### [facility] [address] [place] [address] Dr. Renato Weller Bilirubin Ql (U) MODERATE Abnormal NEGATIVE [facility] Comment on above: Performed By: #### U AMIC #### [facility] [address] [place] [address] Dr. Renato Weller CAST NONE SEEN Normal NONE SEEN [facility] Comment on above: Performed By: #### U AMIC #### [facility] [address] [place] [address] Dr. Renato Weller Clarity (U) CLEAR Normal CLEAR [facility] Comment on above: Performed By: #### U AMIC #### [facility] [address] [place] [address] Dr. Renato Weller Color (U) LT. YELLOW Normal YELLOW [facility] Comment on above: Performed By: #### U AMIC #### [facility] [address] [place] [address] Dr. Renato Weller Crystals LM Nom (Urine sed) NONE SEEN Normal NONE SEEN [facility] Comment on above: Performed By: #### U AMIC #### [facility] [address] [place] [address] Dr. Renato Weller Epithelial cells LM Ql (Urine sed) MODERATE Abnormal NONE SEEN /RARE [facility] Comment on above: Performed By: #### U AMIC #### [facility] [address] [place] [address] Dr. Renato Weller Glucose Ql (U) Negative Normal NEGATIVE [facility] Comment on above: Performed By: #### U AMIC #### [facility] [address] [place] [address] Dr. Renato Weller Hemoglobin Ql (U) LARGE Abnormal NEGATIVE [facility] Comment on above: Performed By: #### U AMIC #### [facility] [address] [place] [address] Dr. Renato Weller Ketones Ql (U) Negative Normal NEGATIVE [facility] Comment on above: Performed By: #### U AMIC #### [facility] [address] [place] [address] Dr. Renato Weller LEUKOCYTES LARGE Abnormal NEGATIVE [facility] Comment on above: Performed By: #### U AMIC #### [facility] [address] [place] [address] Dr. Renato Weller MUCOUS NONE SEEN Normal NONE SEEN [facility] Comment on above: Performed By: #### U AMIC #### [facility] [address] [address] [address] Renato Weller Nitrite Ql (U) Negative Normal NEGATIVE [facility] Comment on above: Performed By: #### U AMIC #### [facility] [address] [place] [address] Dr. Renato Weller pH (U) 6.0 [pH] Normal 5-9 [facility] Comment on above: Performed By: #### U AMIC #### [facility] [address] [place] [address] Dr. Renato Weller RBC 5-10 Abnormal 0-2 [facility] Comment on above: Performed By: #### U AMIC #### [facility] [address] [place] [address] Dr. Renato Weller SPEC GRAVITY 1.020 Normal 1.005-<=1.02 5 [facility] Comment on above: Performed By: #### U AMIC #### [facility] [address] [place] [address] Dr. Renato Weller UA PROTEIN Negative Normal NEGATIVE/ TRACE [facility] Comment on above: Performed By: #### U AMIC #### [facility] [address] [place] [address] Dr. Renato Weller Urobilinogen Qn (U) 0.2 {Paul'U}/dL Normal 0.2 - 1. 0 [facility] Comment on above: Performed By: #### U AMIC #### [facility] [address] [place] [address] Dr. Renato Weller WBC 10-20 Abnormal NONE SEEN [facility] Comment on above: Performed By: #### U AMIC #### [facility] [address] [place] [address] Dr. Renato Weller XR CSPINE MIN 4 [...] CASANDRA DURAN Date: 2022-05-01 17:38 Normal [facility] C3 and C4 COMPLEMENTon 04-15 Complement C3, Serum 115 mg/dL Normal 82-167 [facility] Comment on above: Performed By: #### C H50T #### [facility] [address] [place] [address] Dr. Renato Weller Complement C4, Serum 23 mg/dL Normal 12-38 [facility] Comment on above: Performed By: #### C H50T #### [facility] [address] [place] [address] Dr. Renato Weller COMPLEMENT TOTAL (CH50)on Complement, Total (CH50) >60 Normal >41 [facility] Comment on above: Result [...] values. Performed By: #### C H50T #### [facility] [address] [place] [address] Dr. Renato Weller CBC AUTO DIFFon 04-14-2022 BASO # 0.1 103/ul Normal 0.0-0.1 [facility] Comment on above: Performed By: #### C H50T #### [facility] [address] [place] [address] Dr. Renato Weller Basophils/100 WBC (Bld) 1.6 % Normal 0.2-2.0 [facility] Comment on above: Performed By: #### C H50T #### [facility] [address] [place] [address] Dr. Renato Weller EO # 0.1 103/ul Normal 0.0-0.7 [facility] Comment on above: Performed By: #### C H50T #### [facility] [address] [place] [address] Dr. Renato Weller Eosinophils/100 WBC (Bld) 2.0 % Normal 0.9-7.0 [facility] Comment on above: Performed By: #### C H50T #### [facility] [address] [place] [address] Dr. Renato Weller Erythrocyte distribution width (RBC) [Ratio] 12.8 % Normal 11.0-15.0 [facility] Comment on above: Performed By: #### C H50T #### [facility] [address] [place] [address] Dr. Renato Weller Hematocrit (Bld) [Volume fraction] 40.0 % Normal 36.0-48.0 [facility] Comment on above: Performed By: #### C H50T #### [facility] [address] [place] [address] Dr. Renato Weller Hemoglobin (Bld) [Mass/Vol] 12.8 g/dL Normal 12.0-16.0 [facility] Comment on above: Performed By: #### C H50T #### [facility] [address] [place] [address] Dr. Renato Weller IG # 0.02 10e3/ul Normal 0.00-0.03 [facility] Comment on above: Performed By: #### C H50T #### [facility] [address] [place] [address] Dr. Renato Weller IG % 0.4 % Normal 0.0-0.5 [facility] Comment on above: Performed By: #### C H50T #### [facility] [address] [place] [address] Dr. Renato Weller LYMPH # 1.1 103/ul Critically low 1.2-3.8 [facility] Comment on above: Performed By: #### C H50T #### [facility] [address] [place] [address] Dr. Renato Weller Lymphocytes/100 WBC (Bld) 22.2 % Normal 20.5-60.0 [facility] Comment on above: Performed By: #### C H50T #### [facility] [address] [place] [address] Dr. Renato Weller MANUAL DIFF REQ NO Normal [facility] Comment on above: Performed By: #### C H50T #### [facility] [address] [place] [address] Dr. Renato Weller MCH (RBC) [Entitic mass] 31.3 pg Normal 26.7-34.0 [facility] Comment on above: Performed By: #### C H50T #### [facility] [address] [place] [address] Dr. Renato Weller MCHC (RBC) [Mass/Vol] 32.0 g/dL Normal 29.9-35.2 [facility] Comment on above: Performed By: #### C H50T #### [facility] [address] [place] [address] Dr. Renato Weller MCV (RBC) [Entitic vol] 97.8 fL Normal 81.0-99.0 [facility] Comment on above: Performed By: #### C H50T #### [facility] [address] [place] [address] Dr. Renato Weller MONO # 0.5 103/ul Normal 0.3-0.8 [facility] Comment on above: Performed By: #### C H50T #### [facility] [address] [place] [address] Dr. Renato Weller Monocytes/100 WBC (Bld) 9.8 % Normal 1.7-12.0 [facility] Comment on above: Performed By: #### C H50T #### [facility] [address] [place] [address] Dr. Renato Weller NEUT # 3.2 103/ul Normal 1.4-6.5 [facility] Comment on above: Performed By: #### C H50T #### [facility] [address] [place] [address] Dr. Renato Weller Neutrophils/100 WBC (Bld) 64.0 % Normal 43.0-75.0 [facility] Comment on above: Performed By: #### C H50T #### [facility] [address] [place] [address] Dr. Renato Weller Platelet mean volume (Bld) [Entitic vol] 9.3 fL Critically low 9.5-13.5 [facility] Comment on above: Performed By: #### C H50T #### [facility] [address] [place] [address] Dr. Renato Weller PLT 181 103/ul Normal 150-450 [facility] Comment on above: Performed By: #### C H50T #### [facility] [address] [place] [address] Dr. Renato Weller RBC 4.09 106/ul Critically low 4.20-5.40 [facility] Comment on above: Performed By: #### C H50T #### [facility] [address] [place] [address] Dr. Renato Weller WBC 5.0 103/ul Normal 4.0-11.0 [facility] Comment on above: Performed By: #### C H50T #### [facility] [address] [place] [address] Dr. Renato Weller LIPID PROFILEon 04-14-2022 CHOL-HDL RATIO NORM SEE BELOW Normal [facility] Comment on above: Result Comment: 3.3 - 4.4 LOW RISK 4.4 - 7.1 AVERAGE RISK 7.1 - 11.0 MODERATE RISK >11.0 HIGH RISK Performed By: #### T SH, LIPID #### [facility] [address] [place] [address] Dr. Renato Weller Cholesterol [Mass/Vol] 176 mg/dL Normal <=200 [facility] Comment on above: Performed By: #### T SH, LIPID #### [facility] [address] [place] [address] Dr. Renato Weller Cholesterol in HDL [Mass/Vol] 71 mg/dL Critically high 40-60 [facility] Comment on above: Performed By: #### T SH, LIPID #### [facility] [address] [address] [address] Renato Weller Cholesterol in LDL [Mass/Vol] 94.0 mg/dL Normal [facility] Comment on above: Performed By: #### T SH, LIPID #### [facility] [address] [place] [address] Dr. Renato Weller Cholesterol.total/Choles terol in HDL [Mass ratio] 2.5 {ratio} Normal [facility] Comment on above: Performed By: #### T SH, LIPID #### [facility] [address] [place] [address] Dr. Renato Weller HDL NORMAL > or = 60 mg/dl - LO W CARDIOVASCULAR RISK <40 mg/dl - HIGH CARDIOVASCULAR RISK Normal [facility] Comment on above: Performed By: #### T SH, LIPID #### [facility] [address] [place] [address] Dr. Renato Weller LDL CALC NORMAL SEE BELOW Normal [facility] Comment on above: Result Comment: <100 mg/dl OPTIMAL 100 - 129 mg/dl NEAR OR ABOVE OPTIMAL 130 - 159 mg/dl BORDERLINE HIGH 160 - 189 mg/dl HIGH >190 mg/dl VERY HIGH Performed By: #### T SH, LIPID #### [facility] [address] [place] [address] Dr. Renato Weller Triglyceride [Mass/Vol] 55 mg/dL Normal <=150 T [facility] Comment on above: Performed By: #### T SH, LIPID #### [facility] [address] [place] [address] Dr. Renato Weller VLDL CALC 11.0 mg/dL Normal [facility] Comment on above: Performed By: #### T SH, LIPID #### [facility] [address] [place] [address] Dr. Renato Weller MG MAMM SCREEN 3D HERBERT CADon 04-14-2022 MG MAMM SCREEN 3D HERBERT CAD Patient: GENNA HERRERA Exam Date: 04/14/2022 : 1950 Gender:F Ordering : DR CASANDRA CHOPRA Admission #: [id number] Family : Order #: [id number] CLICK HERE TO VIEW EXAM RADIOLOGY REPORT [...] ovarian cancer at age 44. LOCATION: [facility] BREAST COMPOSITION: Scattered areas fibroglandular density. [...] Duran MD on 04/14/2022 at 09:31 Normal [facility] PROF 14(COMP METB)on 04-14- 022 Albumin [Mass/Vol] 3.8 g/dL Normal 3.4-5.0 [facility] Comment on above: Performed By: #### C MP #### [facility] [address] [place] [address] Dr. Renato Weller Albumin/Globulin [Mass ratio] 1.2 {ratio} Normal [facility] Comment on above: Performed By: #### C MP #### [facility] [address] [place] [address] Dr. Renato Weller ALP [Catalytic activity/Vol] 41 U/L Critically low 46-116 [facility] Comment on above: Performed By: #### C MP #### [facility] [address] [address] [address] Renato Weller ALT [Catalytic activity/Vol] 23 U/L Normal 14-59 [facility] Comment on above: Performed By: #### C MP #### [facility] [address] [place] [address] Dr. Renato Weller Anion gap [Moles/Vol] 10.0 mmol/L Normal [facility] Comment on above: Performed By: #### C MP #### [facility] [address] [address] [address] Renato Weller AST [Catalytic activity/Vol] 20 U/L Normal 15-37 [facility] Comment on above: Performed By: #### C MP #### [facility] [address] [address] [address] Renato Weller Bilirubin [Mass/Vol] 0.4 mg/dL Normal 0.2-1.0 [facility] Comment on above: Performed By: #### C MP #### [facility] [address] [address] [address] Renato Weller Calcium [Mass/Vol] 8.5 mg/dL Normal 8.5-10.1 [facility] Comment on above: Performed By: #### C MP #### [facility] [address] [address] [address] Renato Weller Chloride [Moles/Vol] 104 mmol/L Normal 98-107 [facility] Comment on above: Performed By: #### C MP #### [facility] [address] [address] [address] Renato Weller CO2 [Moles/Vol] 29.0 mmol/L Normal 21.0-32.0 [facility] Comment on above: Performed By: #### C MP #### [facility] [address] [address] [address] Renato Weller Creatinine [Mass/Vol] 0.69 mg/dL Normal 0.55-1.02 [facility] Comment on above: Performed By: #### C MP #### [facility] [address] [address] [address] Renato Weller EGFR-AF ZIMBABWEAN >60 Normal >=60 [facility] Comment on above: Performed By: #### C MP #### [facility] [address] [address] [address] Renato Weller EGFR-NON AF ZIMBABWEAN >60 Normal >=60 [facility] Comment on above: Performed By: #### C MP #### [facility] [address] [address] [address] Renato Weller Globulin (S) [Mass/Vol] 3.2 g/dL Normal T [facility] Comment on above: Performed By: #### C MP #### [facility] [address] [place] [address] Dr. Renato Weller Glucose [Mass/Vol] 84 mg/dL Normal 74-106 [facility] Comment on above: Performed By: #### C MP #### [facility] [address] [address] [address] Renato Weller Potassium [Moles/Vol] 4.0 mmol/L Normal 3.5-5.1 [facility] Comment on above: Performed By: #### C MP #### [facility] [address] [place] [address] Dr. Renato Weller Protein [Mass/Vol] 7.0 g/dL Normal 6.4-8.2 [facility] Comment on above: Performed By: #### C MP #### [facility] [address] [place] [address] Dr. Renato Weller Sodium [Moles/Vol] 139 mmol/L Normal 136-145 [facility] Comment on above: Performed By: #### C MP #### [facility] [address] [place] [address] Dr. Renato Weller Urea nitrogen [Mass/Vol] 16.0 mg/dL Normal 7.0-18.0 [facility] Comment on above: Performed By: #### C MP #### [facility] [address] [place] [address] Dr. Renato Weller Urea nitrogen/Creatinine [Mass ratio] 23.2 mg/mg Normal [facility] Comment on above: Performed By: #### C MP #### [facility] [address] [place] [address] Dr. Renato Weller SED RATE [facility] 2021 SED RATE 16 mm/hr Normal <=30 [facility] Comment on above: Performed By: #### U AMIC #### [facility] [address] [place] [address] Dr. Renato Weller TSHon 04-14-2022 TSH 3.056 uIU/mL Normal 0.358-3.740 [facility] Comment on above: Performed By: #### T SH, LIPID #### [facility] [address] [place] [address] Dr. Renato Weller UA RANDOM W/MICROSCOPICon BACTERIA MODERATE Abnormal NONE SEEN [facility] Comment on above: Performed By: #### C H50T #### [facility] [address] [place] [address] Dr. Renato Weller Bilirubin Ql (U) LARGE Abnormal NEGATIVE [facility] Comment on above: Performed By: #### C H50T #### [facility] [address] [place] [address] Dr. Renato Weller CAST NONE SEEN Normal NONE SEEN [facility] Comment on above: Performed By: #### C H50T #### [facility] [address] [place] [address] Dr. Renato Weller Clarity (U) CLEAR Normal CLEAR [facility] Comment on above: Performed By: #### C H50T #### [facility] [address] [place] [address] Dr. Renato Weller Color (U) LT. YELLOW Normal YELLOW [facility] Comment on above: Performed By: #### C H50T #### [facility] [address] [place] [address] Dr. Renato Weller Crystals LM Nom (Urine sed) NONE SEEN Normal NONE SEEN [facility] Comment on above: Performed By: #### C H50T #### [facility] [address] [place] [address] Dr. Renato Weller Epithelial cells LM Ql (Urine sed) MANY Abnormal NONE SEEN /RARE [facility] Comment on above: Performed By: #### C H50T #### [facility] [address] [place] [address] Dr. Renato Weller Glucose Ql (U) Negative Normal NEGATIVE [facility] Comment on above: Performed By: #### C H50T #### [facility] [address] [place] [address] Dr. Renato Weller Hemoglobin Ql (U) Negative Normal NEGATIVE [facility] Comment on above: Performed By: #### C H50T #### [facility] [address] [place] [address] Dr. Renato Weller Ketones Ql (U) Negative Normal NEGATIVE [facility] Comment on above: Performed By: #### C H50T #### [facility] [address] [place] [address] Dr. Renato Weller LEUKOCYTES LARGE Abnormal NEGATIVE [facility] Comment on above: Performed By: #### C H50T #### [facility] [address] [place] [address] Dr. Renato Weller MUCOUS NONE SEEN Normal NONE SEEN [facility] Comment on above: Performed By: #### C H50T #### [facility] [address] [place] [address] Dr. Renato Weller Nitrite Ql (U) Negative Normal NEGATIVE [facility] Comment on above: Performed By: #### C H50T #### [facility] [address] [place] [address] Dr. Renato Weller pH (U) 6.0 [pH] Normal 5-9 [facility] Comment on above: Performed By: #### C H50T #### [facility] [address] [place] [address] Dr. Renato Weller RBC 2-5 Abnormal 0-2 [facility] Comment on above: Performed By: #### C H50T #### [facility] [address] [place] [address] Dr. Renato Weller SPEC GRAVITY 1.025 Normal 1.005-<=1.02 5 [facility] Comment on above: Performed By: #### C H50T #### [facility] [address] [place] [address] Dr. Renato Weller UA PROTEIN Negative Normal NEGATIVE/ TRACE [facility] Comment on above: Performed By: #### C H50T #### [facility] [address] [place] [address] Dr. Renato Weller Urobilinogen Qn (U) 0.2 {Paul'U}/dL Normal 0.2 - 1. 0 [facility] Comment on above: Performed By: #### C H50T #### [facility] [address] [address] [address] Renato Weller WBC 10-20 Abnormal NONE SEEN [facility] Comment on above: Performed By: #### C H50T #### [facility] [address] [address] [address] Renato Weller RAD - CT Reporton 02-26-2022 RAD - CT Report [id number]:[id number] Normal [facility] CT ABDOMEN WO CONTRASTon CT ABDOMEN WO [...] by: MARII TURCIOS Date: 2022-02-19 17:17 Normal [facility] Ambulatory Visit Summaryon 0 02-04-2022 [...] calcium-vitamin D etodolac (etodolac 400 mg Tab) fluticasone/umeclidin ium/vilanterol (Trelegy Ellipta 100 mcg-62.5 mcg-25 mcg inhalation [...] BSO - Total abdominal hysterectomy and bilateral salpingo-oophorectomy , Tubal ligation. Discharge Vitals Heart Rate (Peripheral) [...] Varicose veins of legs Ventral hernia Normal [facility] Physician Referralon 022 Physician Referral [id number]:[id number] Normal [facility] XR DEXA BONE DENSITYon 12-30 XR DEXA BONE DENSITY EXAMINATION: XR DEX A BONE DENSITY, 12/30/2021 8:57 AM EDT HISTORY: [...] CASANDRA DURAN Date: 2021-12-30 16:10 Normal [facility] C3 and C4 COMPLEMENTon 12-17 Complement C3, Serum 122 mg/dL Normal 82-167 [facility] Comment on above: Performed By: #### C SUITE #### [facility] [address] [place] [address] Dr. Renato Weller Complement C4, Serum 24 mg/dL Normal 12-38 [facility] Comment on above: Performed By: #### C SUITE #### [facility] [address] [place] [address] Dr. Renato Weller COMPLEMENT TOTAL (CH50)on Complement, Total (CH50) >60 Normal >41 [facility] Comment on above: Result Comment: [...] values. Performed By: #### C H50T #### [facility] [address] [place] [address] Dr. Renato Weller CBC AUTO DIFFon 12-16-2021 BASO # 0.1 103/ul Normal 0.0-0.1 [facility] Comment on above: Performed By: #### L IPID, CMP #### [facility] [address] [place] [address] Dr. Renato Weller Basophils/100 WBC (Bld) 1.8 % Normal 0.2-2.0 [facility] Comment on above: Performed By: #### L IPID, CMP #### [facility] [address] [place] [address] Dr. Renato Weller EO # 0.1 103/ul Normal 0.0-0.7 [facility] Comment on above: Performed By: #### L IPID, CMP #### [facility] [address] [place] [address] Dr. Renato Weller Eosinophils/100 WBC (Bld) 2.2 % Normal 0.9-7.0 [facility] Comment on above: Performed By: #### L IPID, CMP #### [facility] [address] [place] [address] Dr. Renato Weller Erythrocyte distribution width (RBC) [Ratio] 13.8 % Normal 11.0-15.0 [facility] Comment on above: Performed By: #### L IPID, CMP #### [facility] [address] [place] [address] Dr. Renato Weller Hematocrit (Bld) [Volume fraction] 39.4 % Normal 36.0-48.0 [facility] Comment on above: Performed By: #### L IPID, CMP #### [facility] [address] [place] [address] Dr. Renato Weller Hemoglobin (Bld) [Mass/Vol] 12.5 g/dL Normal 12.0-16.0 [facility] Comment on above: Performed By: #### L IPID, CMP #### [facility] [address] [place] [address] Dr. Renato Weller IG # 0.02 10e3/ul Normal 0.00-0.03 [facility] Comment on above: Performed By: #### L IPID, CMP #### [facility] [address] [place] [address] Dr. Renato Weller IG % 0.4 % Normal 0.0-0.5 [facility] Comment on above: Performed By: #### L IPID, CMP #### [facility] [address] [place] [address] Dr. Renato Weller LYMPH # 1.0 103/ul Critically low 1.2-3.8 [facility] Comment on above: Performed By: #### L IPID, CMP #### [facility] [address] [place] [address] Dr. Renato Weller Lymphocytes/100 WBC (Bld) 18.5 % Critically low 20.5-60.0 [facility] Comment on above: Performed By: #### L IPID, CMP #### [facility] [address] [place] [address] Dr. Renato Weller MANUAL DIFF REQ NO Normal [facility] Comment on above: Performed By: #### L IPID, CMP #### [facility] [address] [place] [address] Dr. Renato Weller MCH (RBC) [Entitic mass] 30.8 pg Normal 26.7-34.0 [facility] Comment on above: Performed By: #### L IPID, CMP #### [facility] [address] [place] [address] Dr. Renato Weller MCHC (RBC) [Mass/Vol] 31.7 g/dL Normal 29.9-35.2 [facility] Comment on above: Performed By: #### L IPID, CMP #### [facility] [address] [place] [address] Dr. Renato Weller MCV (RBC) [Entitic vol] 97.0 fL Normal 81.0-99.0 [facility] Comment on above: Performed By: #### L IPID, CMP #### [facility] [address] [place] [address] Dr. Renato Weller MONO # 0.5 103/ul Normal 0.3-0.8 [facility] Comment on above: Performed By: #### L IPID, CMP #### [facility] [address] [place] [address] Dr. Renato Weller Monocytes/100 WBC (Bld) 9.3 % Normal 1.7-12.0 [facility] Comment on above: Performed By: #### L IPID, CMP #### [facility] [address] [place] [address] Dr. Renato Weller NEUT # 3.8 103/ul Normal 1.4-6.5 [facility] Comment on above: Performed By: #### L IPID, CMP #### [facility] [address] [place] [address] Dr. Renato Weller Neutrophils/100 WBC (Bld) 67.8 % Normal 43.0-75.0 [facility] Comment on above: Performed By: #### L IPID, CMP #### [facility] [address] [place] [address] Dr. Renato Weller Platelet mean volume (Bld) [Entitic vol] 9.1 fL Critically low 9.5-13.5 [facility] Comment on above: Performed By: #### L IPID, CMP #### [facility] [address] [address] [address] Renato Weller PLT 240 103/ul Normal 150-450 [facility] Comment on above: Performed By: #### L IPID, CMP #### [facility] [address] [address] [address] Renato Weller RBC 4.06 106/ul Critically low 4.20-5.40 [facility] Comment on above: Performed By: #### L IPID, CMP #### [facility] [address] [address] [address] Renato Weller WBC 5.6 103/ul Normal 4.0-11.0 [facility] Comment on above: Performed By: #### L IPID, CMP #### [facility] [address] [place] [address] Dr. Renato Weller PROF 14(COMP METB)on 022 Albumin [Mass/Vol] 3.5 g/dL Normal 3.4-5.0 [facility] Comment on above: Performed By: #### C H50T #### [facility] [address] [place] [address] Dr. Renato Weller Albumin/Globulin [Mass ratio] 1.1 {ratio} Normal [facility] Comment on above: Performed By: #### C H50T #### [facility] [address] [place] [address] Dr. Renato Weller ALP [Catalytic activity/Vol] 51 U/L Normal 46-116 [facility] Comment on above: Performed By: #### C H50T #### [facility] [address] [place] [address] Dr. Renato Weller ALT [Catalytic activity/Vol] 22 U/L Normal 14-59 [facility] Comment on above: Performed By: #### C H50T #### [facility] [address] [place] [address] Dr. Renato Weller Anion gap [Moles/Vol] 13.0 mmol/L Normal [facility] Comment on above: Performed By: #### C H50T #### [facility] [address] [address] [address] Renato Weller AST [Catalytic activity/Vol] 17 U/L Normal 15-37 [facility] Comment on above: Performed By: #### C H50T #### [facility] [address] [address] [address] Renato Weller Bilirubin [Mass/Vol] 0.4 mg/dL Normal 0.2-1.0 [facility] Comment on above: Performed By: #### C H50T #### [facility] [address] [address] [address] Renato Weller Calcium [Mass/Vol] 8.3 mg/dL Critically low 8.5-10.1 [facility] Comment on above: Performed By: #### C H50T #### [facility] [address] [address] [address] Renato Weller Chloride [Moles/Vol] 104 mmol/L Normal 98-107 [facility] Comment on above: Performed By: #### C H50T #### [facility] [address] [address] [address] Renato Weller CO2 [Moles/Vol] 27.4 mmol/L Normal 21.0-32.0 [facility] Comment on above: Performed By: #### C H50T #### [facility] [address] [address] [address] Renato Weller Creatinine [Mass/Vol] 0.71 mg/dL Normal 0.55-1.02 [facility] Comment on above: Performed By: #### C H50T #### [facility] [address] [address] [address] Renato Weller EGFR-AF ZIMBABWEAN >60 Normal >=60 [facility] Comment on above: Performed By: #### C H50T #### [facility] [address] [place] [address] Dr. Renato Weller EGFR-NON AF ZIMBABWEAN >60 Normal >=60 [facility] Comment on above: Performed By: #### C H50T #### [facility] [address] [address] [address] Renato Weller Globulin (S) [Mass/Vol] 3.1 g/dL Normal T [facility] Comment on above: Performed By: #### C H50T #### [facility] [address] [address] [address] Renato Weller Glucose [Mass/Vol] 85 mg/dL Normal 74-106 [facility] Comment on above: Performed By: #### C H50T #### [facility] [address] [address] [address] Renato Weller Potassium [Moles/Vol] 4.4 mmol/L Normal 3.5-5.1 [facility] Comment on above: Performed By: #### C H50T #### [facility] [address] [place] [address] Dr. Renato Weller Protein [Mass/Vol] 6.6 g/dL Normal 6.4-8.2 [facility] Comment on above: Performed By: #### C H50T #### [facility] [address] [address] [address] Renato Weller Sodium [Moles/Vol] 140 mmol/L Normal 136-145 [facility] Comment on above: Performed By: #### C H50T #### [facility] [address] [place] [address] Dr. Renato Weller Urea nitrogen [Mass/Vol] 14.0 mg/dL Normal 7.0-18.0 [facility] Comment on above: Performed By: #### C H50T #### [facility] [address] [address] [address] Renato Weller Urea nitrogen/Creatinine [Mass ratio] 19.7 mg/mg Normal [facility] Comment on above: Performed By: #### C H50T #### [facility] [address] [address] [address] Renato Weller SED RATE [facility] 2021 SED RATE 6 mm/hr Normal <=30 [facility] Comment on above: Performed By: #### C H50T #### [facility] [address] [place] [address] Dr. Renato Weller UA RANDOM W/MICROSCOPICon BACTERIA TRACE Abnormal NONE SEEN [facility] Comment on above: Performed By: #### C H50T #### [facility] [address] [place] [address] Dr. Renato Weller Bilirubin Ql (U) MODERATE Abnormal NEGATIVE [facility] Comment on above: Performed By: #### C H50T #### [facility] [address] [place] [address] Dr. Renato Weller CAST NONE SEEN Normal NONE SEEN [facility] Comment on above: Performed By: #### C H50T #### [facility] [address] [place] [address] Dr. Renato Weller Clarity (U) CLEAR Normal CLEAR [facility] Comment on above: Performed By: #### C H50T #### [facility] [address] [place] [address] Dr. Renato Weller Color (U) LT. YELLOW Normal YELLOW [facility] Comment on above: Performed By: #### C H50T #### [facility] [address] [place] [address] Dr. Renato Weller Crystals LM Nom (Urine sed) NONE SEEN Normal NONE SEEN [facility] Comment on above: Performed By: #### C H50T #### [facility] [address] [place] [address] Dr. Renato Weller Epithelial cells LM Ql (Urine sed) MODERATE Abnormal NONE SEEN /RARE [facility] Comment on above: Performed By: #### C H50T #### [facility] [address] [place] [address] Dr. Renato Weller Glucose Ql (U) Negative Normal NEGATIVE [facility] Comment on above: Performed By: #### C H50T #### [facility] [address] [place] [address] Dr. Renato Weller Hemoglobin Ql (U) Negative Normal NEGATIVE [facility] Comment on above: Performed By: #### C H50T #### [facility] [address] [place] [address] Dr. Renato Weller Ketones Ql (U) Negative Normal NEGATIVE [facility] Comment on above: Performed By: #### C H50T #### [facility] [address] [place] [address] Dr. Renato Weller LEUKOCYTES SMALL Abnormal NEGATIVE [facility] Comment on above: Performed By: #### C H50T #### [facility] [address] [place] [address] Dr. Renato Weller MUCOUS NONE SEEN Normal NONE SEEN [facility] Comment on above: Performed By: #### C H50T #### [facility] [address] [place] [address] Dr. Renato Weller Nitrite Ql (U) Negative Normal NEGATIVE [facility] Comment on above: Performed By: #### C H50T #### [facility] [address] [place] [address] Dr. Renato Weller pH (U) 6.0 [pH] Normal 5-9 [facility] Comment on above: Performed By: #### C H50T #### [facility] [address] [place] [address] Dr. Renato Weller RBC NONE SEEN Abnormal 0-2 [facility] Comment on above: Performed By: #### C H50T #### [facility] [address] [place] [address] Dr. Renato Weller SPEC GRAVITY 1.010 Normal 1.005-<=1.02 5 [facility] Comment on above: Performed By: #### C H50T #### [facility] [address] [place] [address] Dr. Renato Weller UA PROTEIN Negative Normal NEGATIVE/ TRACE [facility] Comment on above: Performed By: #### C H50T #### [facility] [address] [place] [address] Dr. Renato Weller Urobilinogen Qn (U) 0.2 {Paul'U}/dL Normal 0.2 - 1. 0 [facility] Comment on above: Performed By: #### C H50T #### [facility] [address] [address] [address] Renato Weller WBC 2-5 Abnormal NONE SEEN [facility] Comment on above: Performed By: #### C H50T #### [facility] [address] [address] [address] Renato Weller C-Reactive Proteinon 019 CRP [Mass/Vol] 0.6 mg/dL Normal 0.0-1.0 [facility] Comment on above: Performed By: #### C BC, CK, CMP, CRP, T4F, TSH3, ESR #### [address] Complete Blood Count Auto Di ffon 04-06-2019 Basophils (Bld) [#/Vol] 0.1 10*3/uL Normal 0.0-0.2 [facility] Comment on above: Result Comment: PERF ORMED BY: [place] [address] PATHOLOGIST C [employer] ROSLYN TALLEY M.D. Performed By: #### C BC, CK, CMP, CRP, T4F, TSH3, ESR #### [address] Basophils/100 WBC (Bld) 1.0 % Normal . F [facility] Comment on above: Performed By: #### C BC, CK, CMP, CRP, T4F, TSH3, ESR #### [address] Eosinophils (Bld) [#/Vol] 0.1 10*3/uL Normal 0.0-0.45 [facility] Comment on above: Performed By: #### C BC, CK, CMP, CRP, T4F, TSH3, ESR #### [address] Eosinophils/100 WBC (Bld) 0.9 % Normal . [facility] Comment on above: Performed By: #### C BC, CK, CMP, CRP, T4F, TSH3, ESR #### [address] Erythrocyte distribution width (RBC) [Ratio] 14.5 % Normal 11.9-15.3 [facility] Comment on above: Performed By: #### C BC, CK, CMP, CRP, T4F, TSH3, ESR #### [address] Hematocrit (Bld) [Volume fraction] 44.9 % Normal 34.0-46.4 [facility] Comment on above: Performed By: #### C BC, CK, CMP, CRP, T4F, TSH3, ESR #### [address] Hemoglobin (Bld) [Mass/Vol] 15.2 g/dL Normal 11.8-15.4 [facility] Comment on above: Performed By: #### C BC, CK, CMP, CRP, T4F, TSH3, ESR #### [address] Lymphocytes (Bld) [#/Vol] 1.1 10*3/uL Normal 1.00-4.8 [facility] Comment on above: Performed By: #### C BC, CK, CMP, CRP, T4F, TSH3, ESR #### [address] Lymphocytes/100 WBC (Bld) 14.6 % Normal . [facility] Comment on above: Performed By: #### C BC, CK, CMP, CRP, T4F, TSH3, ESR #### [address] MCH (RBC) [Entitic mass] 34.0 g/dL Normal 32.0-35.0 [facility] Comment on above: Performed By: #### C BC, CK, CMP, CRP, T4F, TSH3, ESR #### [address] MCH (RBC) [Entitic mass] 30.8 pg Normal 24.7-34.3 [facility] Comment on above: Performed By: #### C BC, CK, CMP, CRP, T4F, TSH3, ESR #### [facility] [address] MCV (RBC) [Entitic vol] 90.5 fL Normal 80-100 F [facility] Comment on above: Performed By: #### C BC, CK, CMP, CRP, T4F, TSH3, ESR #### [facility] [address] [place] [address] [place] Monocytes (Bld) [#/Vol] 0.5 10*3/uL Normal 0.0-0.8 [facility] Comment on above: Performed By: #### C BC, CK, CMP, CRP, T4F, TSH3, ESR #### [address] Monocytes/100 WBC (Bld) 7.0 % Normal . [facility] Comment on above: Performed By: #### C BC, CK, CMP, CRP, T4F, TSH3, ESR #### [address] Neutrophils (Bld) [#/Vol] 6.0 10*3/uL Normal 1.8-7.7 [facility] Comment on above: Performed By: #### C BC, CK, CMP, CRP, T4F, TSH3, ESR #### [address] Neutrophils/100 WBC (Bld) 76.5 % Normal . [facility] Comment on above: Performed By: #### C BC, CK, CMP, CRP, T4F, TSH3, ESR #### [facility] [address] [place] [address] [place] Nucleated RBC/100 WBC (Bld) [Ratio] 0.2 % Normal 0-0.5 [facility] Comment on above: Performed By: #### C BC, CK, CMP, CRP, T4F, TSH3, ESR #### [address] Platelet mean volume (Bld) [Entitic vol] 8.6 fL Normal 6.3-10.7 [facility] Comment on above: Performed By: #### C BC, CK, CMP, CRP, T4F, TSH3, ESR #### [address] Platelets (Bld) [#/Vol] 218 10*3/uL Normal 150-450 [facility] Comment on above: Performed By: #### C BC, CK, CMP, CRP, T4F, TSH3, ESR #### [address] RBC (Bld) [#/Vol] 4.96 10*6/uL Normal 3.60-5.00 [facility] Comment on above: Performed By: #### C BC, CK, CMP, CRP, T4F, TSH3, ESR #### [address] WBC (Bld) [#/Vol] 7.8 10*3/uL Normal 4.5-11.0 [facility] Comment on above: Performed By: #### C BC, CK, CMP, CRP, T4F, TSH3, ESR #### [address] Comprehensive Metabolic Pane molly 04-06-2019 Albumin [Mass/Vol] 4.0 g/dL Normal 3.2-5.5 [facility] Comment on above: Performed By: #### C BC, CK, CMP, CRP, T4F, TSH3, ESR #### [address] Albumin/Globulin [Mass ratio] 1.5 {ratio} Normal [facility] Comment on above: Performed By: #### C BC, CK, CMP, CRP, T4F, TSH3, ESR #### [address] ALP [Catalytic activity/Vol] 40 U/L Normal 32-92 [facility] Comment on above: Performed By: #### C BC, CK, CMP, CRP, T4F, TSH3, ESR #### [address] [place] [address] [place] ALT [Catalytic activity/Vol] 10 U/L Normal 10-60 [facility] Comment on above: Performed By: #### C BC, CK, CMP, CRP, T4F, TSH3, ESR #### [address] AST [Catalytic activity/Vol] 15 U/L Normal 10-42 [facility] Comment on above: Performed By: #### C BC, CK, CMP, CRP, T4F, TSH3, ESR #### [address] Bilirubin [Mass/Vol] 0.6 mg/dL Normal 0.3-1.2 [facility] Comment on above: Performed By: #### C BC, CK, CMP, CRP, T4F, TSH3, ESR #### [address] Calcium [Mass/Vol] 9.6 mg/dL Normal 8.2-10.2 [facility] Comment on above: Performed By: #### C BC, CK, CMP, CRP, T4F, TSH3, ESR #### [address] Chloride [Moles/Vol] 103 mmol/L Normal 95-114 [facility] Comment on above: Performed By: #### C BC, CK, CMP, CRP, T4F, TSH3, ESR #### [address] CO2 [Moles/Vol] 26.6 mmol/L Normal 22.0-30.0 [facility] Comment on above: Performed By: #### C BC, CK, CMP, CRP, T4F, TSH3, ESR #### [address] Creatinine [Mass/Vol] 0.79 mg/dL Normal 0.44-1.03 [facility] Comment on above: Performed By: #### C BC, CK, CMP, CRP, T4F, TSH3, ESR #### [address] [place] [address] [place] Estimated GFR ( Kimberly > 60 Normal [facility] Comment on above: Result Comment: GFR estimated reference range: According to KDOQI guidelines, <60 ml/min/1.73m2 is sufficient to diagnose a patient with chronic kidney disease. Performed By: #### C BC, CK, CMP, CRP, T4F, TSH3, ESR #### [address] Estimated GFR (Non- Am > 60 Normal [facility] Comment on above: Performed By: #### C BC, CK, CMP, CRP, T4F, TSH3, ESR #### [address] Globulin (S) [Mass/Vol] 2.6 g/dL Normal [facility] Comment on above: Performed By: #### C BC, CK, CMP, CRP, T4F, TSH3, ESR #### [address] Glucose [Mass/Vol] 87 mg/dL Normal 70-100 [facility] Comment on above: Result Comment: [facility] Glucose Reference Range is dependent on time and content of last meal. Glucose of more than 200 mg/dL in a nonstressed, ambulatory subject supports the diagnosis of Diabetes Mellitus. ADA recommended reference range Performed By: #### C BC, CK, CMP, CRP, T4F, TSH3, ESR #### [address] Potassium [Moles/Vol] 4.2 mmol/L Normal 3.5-5.1 [facility] Comment on above: Performed By: #### C BC, CK, CMP, CRP, T4F, TSH3, ESR #### [address] Protein [Mass/Vol] 6.6 g/dL Normal 6.1-7.9 [facility] Comment on above: Performed By: #### C BC, CK, CMP, CRP, T4F, TSH3, ESR #### [place] [address] Sodium [Moles/Vol] 140 mmol/L Normal 136-146 [facility] Comment on above: Performed By: #### C BC, CK, CMP, CRP, T4F, TSH3, ESR #### [facility] [address] Urea nitrogen [Mass/Vol] 12 mg/dL Normal 9-23 [facility] Comment on above: Performed By: #### C BC, CK, CMP, CRP, T4F, TSH3, ESR #### [facility] [address] Creatine Kinaseon 04-06-2019 CK [Catalytic activity/Vol] 46 U/L Normal 22-269 [facility] Comment on above: Result Comment: PERF ORMED BY: [place] [address] PATHOLOGIST C WEB DEVELOPER ROSLYN TALLEY M.D. Performed By: #### C BC, CK, CMP, CRP, T4F, TSH3, ESR #### [place] [address] [place] Dipstick and Microscopicon 1 Appearance (U) Turbid Critically abnormal Clear [facility] Comment on above: Order Comment: Name Collection Type:: Clean-Voided Midstream Performed By: #### A DDONUAPLUS, PT, PTT #### [place] [address] [place] Bacteria LM.HPF (Urine sed) [#/Area] 1+ High None Seen [facility] Comment on above: Order Comment: Name Collection Type:: Clean-Voided Midstream Performed By: #### A DDONUAPLUS, PT, PTT #### [place] [address] [place] Bilirubin,Urine Negative Normal Negative [facility] Comment on above: Order Comment: Name Collection Type:: Clean-Voided Midstream Performed By: #### A DDONUAPLUS, PT, PTT #### [place] [address] [place] Color (U) Yellow Normal Yellow [facility] Comment on above: Order Comment: Name Collection Type:: Clean-Voided Midstream Performed By: #### A DDONUAPLUS, PT, PTT #### [facility] [address] [place] [address] [place] Glucose Ql (U) Normal Normal Normal [facility] Comment on above: Order Comment: Name Collection Type:: Clean-Voided Midstream Performed By: #### A DDONUAPLUS, PT, PTT #### [facility] [address] [place] [address] [place] Hyaline Casts,Urine None Seen Normal 0-1 [facility] Comment on above: Order Comment: Name Collection Type:: Clean-Voided Midstream Performed By: #### A DDONUAPLUS, PT, PTT #### [facility] [address] [place] [address] [place] Ketones Ql (U) Trace High Negative [facility] Comment on above: Order Comment: Name Collection Type:: Clean-Voided Midstream Performed By: #### A DDONUAPLUS, PT, PTT #### [facility] [address] [place] [address] [place] Leukocyte esterase Test strip Ql (U) 3+ High Negative [facility] Comment on above: Order Comment: Name Collection Type:: Clean-Voided Midstream Performed By: #### A DDONUAPLUS, PT, PTT #### [facility] [address] [place] [address] [place] Nitrite,Urine Negative Normal Negative [facility] Comment on above: Order Comment: Name Collection Type:: Clean-Voided Midstream Performed By: #### A DDONUAPLUS, PT, PTT #### [facility] [address] [place] [address] [place] Occult Blood,Urine Negative Normal Negative [facility] Comment on above: Order Comment: Name Collection Type:: Clean-Voided Midstream Performed By: #### A DDONUAPLUS, PT, PTT #### [facility] [address] [place] [address] [place] Other Casts,Urine None Seen Normal None Seen [facility] Comment on above: Order Comment: Name Collection Type:: Clean-Voided Midstream Result Comment: PERF ORMED BY: [place] [address] PATHOLOGIST C WEB DEVELOPER ROSLYN TALLEY M.D. Performed By: #### A DDONUAPLUS, PT, PTT #### [address] pH (U) 5.0 [pH] Normal 5.0-9.0 [facility] Comment on above: Order Comment: Name Collection Type:: Clean-Voided Midstream Performed By: #### A DDONUAPLUS, PT, PTT #### [address] Protein (U) [Mass/Vol] Negative Normal Negative [facility] Comment on above: Order Comment: Name Collection Type:: Clean-Voided Midstream Performed By: #### A DDONUAPLUS, PT, PTT #### [place] [address] [place] RBC LM.HPF (Urine sed) [#/Area] 5-9 High 0-4 [facility] Comment on above: Order Comment: Name Collection Type:: Clean-Voided Midstream Performed By: #### A DDONUAPLUS, PT, PTT #### [address] Specificy [place],Urine 1.024 Normal 1.001-1.030 [facility] Comment on above: Order Comment: Name Collection Type:: Clean-Voided Midstream Performed By: #### A DDONUAPLUS, PT, PTT #### [facility] [address] [place] [address] [place] Squamous Epithelial Cell,Urine 5-9 High 0-2 [facility] Comment on above: Order Comment: Name Collection Type:: Clean-Voided Midstream Performed By: #### A DDONUAPLUS, PT, PTT #### [address] Urobilinogen,Urine Normal Normal Normal [facility] Comment on above: Order Comment: Name Collection Type:: Clean-Voided Midstream Performed By: #### A DDONUAPLUS, PT, PTT #### [address] WBC LM.HPF (Urine sed) [#/Area] 20-49 High 0-4 [facility] Comment on above: Order Comment: Name Collection Type:: Clean-Voided Midstream Performed By: #### A DDONUAPLUS, PT, PTT #### [address] Erythrocyte Sedimentation Ra roosevelt 04-06-2019 ESR (Bld) [Velocity] 23 mm/h Normal 0-30 [facility] Comment on above: Result Comment: PERF ORMED BY: [place] [address] PATHOLOGIST C WEB DEVELOPER ROSLYN TALLEY M.D. Performed By: #### C BC, CK, CMP, CRP, T4F, TSH3, ESR #### [address] Free T4 (Free Thyroxine)on 1 Free T4 [Mass/Vol] 0.88 ng/dL Normal 0.61-1.12 [facility] Comment on above: Performed By: #### C BC, CK, CMP, CRP, T4F, TSH3, ESR #### [address] Partial Thromboplastin Timeo n 04-06-2019 aPTT Coag (Bld) [Time] 29.8 s Normal 23.0-35.0 [facility] Comment on above: Order Comment: List the anticoagulant: NONE Result Comment: PERF ORMED BY: [place] [address] PATHOLOGIST C WEB DEVELOPER ROSLYN TALLEY M.D. Performed By: #### A DDONUAPLUS, PT, PTT #### [address] Prothrombin Time INRon 04-06 INR Coag (Bld) [Relative time] 10.3 s Normal 9.0-12.9 [facility] Comment on above: Order Comment: List the anticoagulant: NONE Performed By: #### A DDONUAPLUS, PT, PTT #### [facility] [address] INR Coag (PPP) [Relative time] 0.9 {INR} Normal [facility] Comment on above: Order Comment: List the [...] By: #### A DDONUAPLUS, PT, PTT #### [facility] [address] [place] [address] Thyroid Stimulating Hormoneo n 04-06-2019 TSH Qn 2.89 u[iU]/mL Normal 0.45-5.33 [facility] Comment on above: Result Comment: PERF ORMED BY: [place] [address] PATHOLOGIST C WEB DEVELOPER ROSLYN TALLEY M.D. Performed By: #### C BC, CK, CMP, CRP, T4F, TSH3, ESR #### [address] Vital Signs Date Time Vital Sign Value Performing Clinician Facility 04-06-2024 08:00-0400 Body height 160.02 cm PHYSICIAN NO [facility] 04-06-2024 08:00-0400 Body mass index (BMI) [Ratio] 29.2 kg/m2 PHYSICIAN NO [facility] 04-06-2024 08:00-0400 Body temperature 97.4 [degF] PHYSICIAN NO [facility] 04-06-2024 08:00-0400 Body weight 74.84 kg PHYSICIAN NO [facility] 04-06-2024 08:00-0400 Diastolic blood pressure 70 mm[Hg] PHYSICIAN NO [facility] 04-06-2024 08:00-0400 Heart rate 73 /min PHYSICIAN NO [facility] 04-06-2024 08:00-0400 SaO2% (BldA) [Mass fraction] 97 % PHYSICIAN NO [facility] 04-06-2024 08:00-0400 Systolic blood pressure 118 mm[Hg] PHYSICIAN NO [facility] 04-04-2024 19:40-0400 Diastolic blood pressure 77 mm[Hg] PHYSICIAN NO [facility] 04-04-2024 19:40-0400 Heart rate 74 /min PHYSICIAN NO [facility] 04-04-2024 19:40-0400 Respiratory rate 18 /min PHYSICIAN NO [facility] 04-04-2024 19:40-0400 SaO2% (BldA) [Mass fraction] 98 % PHYSICIAN NO [facility] 04-04-2024 19:40-0400 Systolic blood pressure 122 mm[Hg] PHYSICIAN NO [facility] 04-04-2024 13:41-0400 Body temperature 97.8 [degF] PHYSICIAN NO [facility] 04-04-2024 12:51-0400 Body height 160.02 cm PHYSICIAN NO [facility] 04-04-2024 12:51-0400 Body weight 75.65 kg PHYSICIAN NO [facility] 02-16-2024 09:19-0400 Body height 160.02 cm DO Casandra Chopra Work Phone: [facility] 02-16-2024 09:19-0400 Body mass index (BMI) [Ratio] 30.6 kg/m2 DO Casandra Chopra Work Phone: [facility] 02-16-2024 09:19-0400 Body temperature 97.9 [degF] DO Casandra Chopra Work Phone: [facility] 02-16-2024 09:19-0400 Body weight 78.47 kg DO Casandra Chopra Work Phone: [facility] 02-16-2024 09:19-0400 Diastolic blood pressure 74 mm[Hg] DO Casandra Chopra Work Phone: [facility] 02-16-2024 09:19-0400 Heart rate 48 /min DO Casandra Chopra Work Phone: [facility] 02-16-2024 09:19-0400 SaO2% (BldA) [Mass fraction] 99 % DO Casandra Chopra Work Phone: [facility] 02-16-2024 09:19-0400 Systolic blood pressure 116 mm[Hg] DO Casandra Chopra Work Phone: [facility] 05-05-2023 09:10-0400 Body height 160.02 cm Casandra Xochitllaura Other [facility] [employer] Other 05-05-2023 09:10-0400 Body mass index (BMI) [Ratio] 31.35 kg/m2 Casandra Chopra Other [employer] Other 05-05-2023 09:10-0400 Body temperature 98.9 [degF] Casandra Chopra Other [employer] Other 05-05-2023 09:10-0400 Body weight 80.29 kg Casandra Leunglaura Other [employer] Other 05-05-2023 09:10-0400 Diastolic blood pressure 68 mm[Hg] Casandra Chopra Other [employer] Other 05-05-2023 09:10-0400 Respiratory rate 18 /min Casandra Chopra Other [employer] Other 05-05-2023 09:10-0400 SaO2% (BldA) [Mass fraction] 98 % Casandra Chopra Other [employer] Other 05-05-2023 09:10-0400 Systolic blood pressure 112 mm[Hg] Casandra Chopra Other [employer] Other 02-23-2023 11:40-0400 Body height 160.02 cm Eva Blades Other [employer] Other 02-23-2023 11:40-0400 Body mass index (BMI) [Ratio] 31.35 kg/m2 Eva Blades Other [employer] Other 02-23-2023 11:40-0400 Body weight 80.29 kg Eva Blades Other [employer] Other 02-23-2023 11:40-0400 Diastolic blood pressure 78 mm[Hg] Eva Blades Other [employer] Other 02-23-2023 11:40-0400 Systolic blood pressure 110 mm[Hg] Eva Blades Other [employer] Other 12-29-2022 10:00-0400 Body height 160.02 cm Germaine Manuel Other [employer] Other 12-29-2022 10:00-0400 Body mass index (BMI) [Ratio] 30.82 kg/m2 Germaine Manuel Other [employer] Other 12-29-2022 10:00-0400 Body weight 78.93 kg Germaine Manuel Other [employer] Other 12-29-2022 10:00-0400 Diastolic blood pressure 68 mm[Hg] Germaine Manuel Other [employer] Other 12-29-2022 10:00-0400 Systolic blood pressure 118 mm[Hg] Germaine Manuel Other [employer] Other 10-28-2022 10:10-0400 Body height 160.02 cm Casandra Leunglaura Other [employer] Other 10-28-2022 10:10-0400 Body mass index (BMI) [Ratio] 31.7 kg/m2 Casandra Chopra Other [employer] Other 10-28-2022 10:10-0400 Body temperature 97.6 [degF] Casandra Xochitllaura Other [employer] Other 10-28-2022 10:10-0400 Body weight 81.19 kg Casandra Xochitllaura Other [employer] Other 10-28-2022 10:10-0400 Diastolic blood pressure 68 mm[Hg] Casandra Chopra Other [employer] Other 10-28-2022 10:10-0400 Respiratory rate 18 /min Casandra Chopra Other [employer] Other 10-28-2022 10:10-0400 SaO2% (BldA) [Mass fraction] 99 % Casandra Xochitllaura Other [employer] Other 10-28-2022 10:10-0400 Systolic blood pressure 112 mm[Hg] Casandra Chopra Other [employer] Other 02-04-2022 15:05-0400 Blood Pressure Location Russell HARRELL [facility] [place] 02-04-2022 15:05-0400 Diastolic blood pressure 60 mm[Hg] Russell HARRELL [facility] [place] 02-04-2022 15:05-0400 Heart rate 72 /min Russell BENITEZL [facility] [place] 02-04-2022 15:05-0400 Respiratory rate 16 /min Russell BENITEZL [facility] [place] 02-04-2022 15:05-0400 Systolic blood pressure 116 mm[Hg] Russell NILL [facility] [place] 10-17-2021 09:50-0400 Body height 160.02 cm Casandra Chopra Other [employer] Other 10-17-2021 09:50-0400 Body mass index (BMI) [Ratio] 31 kg/m2 Casandra Chopra Other [employer] Other 10-17-2021 09:50-0400 Body temperature 97.8 [degF] Casandra Chopra Other [employer] Other 10-17-2021 09:50-0400 Body weight 79.38 kg Casandra Chopra Other [employer] Other 10-17-2021 09:50-0400 Diastolic blood pressure 64 mm[Hg] Casandra Chopra Other [employer] Other 10-17-2021 09:50-0400 Respiratory rate 18 /min Casandra Chopra Other [employer] Other 10-17-2021 09:50-0400 SaO2% (BldA) [Mass fraction] 97 % Casandra Chopra Other [employer] Other 10-17-2021 09:50-0400 Systolic blood pressure 102 mm[Hg] Casandra Chopra Other [employer] Other 09-04-2021 09:10-0500 Body height 160.02 cm Casandra Chopra Other [employer] Other 09-04-2021 09:10-0500 Body mass index (BMI) [Ratio] 30.11 kg/m2 Casandra Chopra Other [employer] Other 09-04-2021 09:10-0500 Body temperature 97.6 [degF] Casandra Chopra Other [employer] Other 09-04-2021 09:10-0500 Body weight 77.11 kg Casandra Chopra Other [employer] Other 09-04-2021 09:10-0500 Diastolic blood pressure 68 mm[Hg] Casandra Chopra Other [employer] Other 09-04-2021 09:10-0500 Respiratory rate 18 /min Casandra Chopra Other [employer] Other 09-04-2021 09:10-0500 SaO2% (BldA) [Mass fraction] 99 % Casandra Chopra Other [employer] Other 09-04-2021 09:10-0500 Systolic blood pressure 104 mm[Hg] Casandra Chopra Other [employer] Other 04-10-2021 10:10-0400 Body height 160.02 cm Casandra Chopra Other [employer] Other 04-10-2021 10:10-0400 Body mass index (BMI) [Ratio] 31 kg/m2 Casandra Chopra Other [employer] Other 04-10-2021 10:10-0400 Body temperature 97.4 [degF] Casandra Leunglaura Other [employer] Other 04-10-2021 10:10-0400 Body weight 79.38 kg Casandra Chopra Other [employer] Other 04-10-2021 10:10-0400 Diastolic blood pressure 76 mm[Hg] Casandra Chopra Other [employer] Other 04-10-2021 10:10-0400 Respiratory rate 18 /min Casandra Chopra Other [employer] Other 04-10-2021 10:10-0400 SaO2% (BldA) [Mass fraction] 99 % Casandra Chopra Other [employer] Other 04-10-2021 10:10-0400 Systolic blood pressure 118 mm[Hg] Casandra Xochitllaura Other [employer] Other Encounters Encounter Date Encounter Type Care Provider Facility Start: 04-19-2024 End: 04-19-2024 ambulatory PHYSICIAN NO [facility] Work Phone: Start: 04-19-2024 End: 04-19-2024 Patient encounter procedure PHYSICIAN NO [facility] Work Phone: Start: 04-14-2024 End: 04-14-2024 Patient encounter procedure PHYSICIAN NO [facility] Work Phone: Start: 04-14-2024 End: 04-14-2024 ambulatory PHYSICIAN NO [facility] Work Phone: Start: 04-08-2024 Non-patient / Non-visit PHYSICIAN NO [facility] [place] Work Phone: Start: 04-06-2024 End: 04-06-2024 ambulatory PHYSICIAN NO [facility] Work Phone: Start: 04-06-2024 End: 04-06-2024 Patient encounter procedure PHYSICIAN NO [facility] Work Phone: Start: 04-04-2024 End: 04-04-2024 Emergency department patient visit PHYSICIAN NO [facility] Work Phone: Start: 04-03-2024 Non-patient / Non-visit [facility] Work [facility]: Start: 04-02-2024 Non-patient / Non-visit PHYSICIAN NO [facility] Work Phone: Start: 03-29-2024 Non-patient / Non-visit PHYSICIAN NO [facility] Work Phone: Start: 03-29-2024 End: 03-29-2024 ambulatory PHYSICIAN NO [facility] Work Phone: Start: 03-29-2024 End: 03-29-2024 Discharged Recurring PHYSICIAN NO [facility] [place] Start: 03-29-2024 Registered Recurring PHYSICIAN NO [facility] [place] Start: 03-23-2024 Non-patient / Non-visit PHYSICIAN NO [facility] Work Phone: Start: 03-09-2024 Non-patient / Non-visit PHYSICIAN NO [facility] Work Phone: Start: 02-24-2024 Non-patient / Non-visit PHYSICIAN NO [facility] Work Phone: Start: 02-23-2024 End: 02-23-2024 ambulatory PHYSICIAN NO [facility] Work Phone: Start: 02-23-2024 End: 02-23-2024 Patient encounter procedure PHYSICIAN NO [facility] Work Phone: Start: 02-16-2024 End: 02-16-2024 ambulatory PHYSICIAN NO [facility] Work Phone: Start: 02-16-2024 End: 02-16-2024 Departed Referred DO Casandra Chopra Work Phone: [facility] [place] Work Phone: Start: 02-16-2024 End: 02-16-2024 Patient encounter procedure DO Casandra Chopra Work Phone: [facility] [place] Work Phone: Start: 02-10-2024 Non-patient / Non-visit DO Casandra Chopra Work Phone: [facility] Work Phone: Start: 01-25-2024 Non-patient / Non-visit DO Casandra Chopra Work Phone: [facility] Work Phone: Start: 12-04-2023 Non-patient / Non-visit DO Casandra Chopra Work Phone: [facility] Work Phone: Start: 05-12-2023 End: 05-12-2023 ambulatory Casandra Chopra Other [employer] Other Start: 05-12-2023 Telephone encounter Casandra Chopra [facility] [place] Start: 05-05-2023 End: 05-05-2023 ambulatory Casandra Chopra Other [employer] Other Start: 05-05-2023 Office outpatient visit 25 minutes Casandra Chopra [facility] [place] Start: 05-05-2023 Telephone encounter Casandra Chopra [facility] [place] Start: 02-23-2023 End: 02-23-2023 ambulatory Eva Cortes Other [employer] Other Start: 02-23-2023 Office outpatient visit 15 minutes Eva Cortes [facility] Start: 02-19-2023 End: 02-19-2023 ambulatory DO Josiah Samuel Work Phone: [facility] Work Phone: Start: 02-19-2023 End: 02-19-2023 Patient encounter procedure DO Josiah Samuel Work Phone: [facility] [place] Work Phone: Start: 02-12-2023 End: 02-12-2023 ambulatory Casandra Chopra Other [employer] Other Start: 02-12-2023 Telephone encounter Casandra Chopra [facility] [place] Start: 02-02-2023 End: 02-02-2023 ambulatory Casandra Chopra Other [employer] Other Start: 02-02-2023 Telephone encounter Casandra Chopra [facility] [place] Start: 12-30-2022 End: 12-30-2022 ambulatory Germaine Manuel Other [employer] Other Start: 12-30-2022 Telephone encounter 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 Facility: Start: 10-28-2022 End: 10-28-2022 ambulatory Casandra Chopra Other [employer] Other Start: 10-28-2022 Office outpatient visit 25 minutes Casandra Chopra [facility] [place] Start: 10-22-2022 End: 10-23-[address] CASANDRA CHOPRA Facility:[facility] Start: 09-15-2022 End: 09-15-2022 ambulatory Casandra Chopra Other [employer] Other Start: 09-15-2022 Telephone encounter Casandra Chopra [facility] [place] Start: 08-18-2022 End: 08-19-[address] CASANDRA CHOPRA Facility:[facility] Start: 05-12-2022 End: 05-13-[address] CASANDRA CHOPRA Facility:[facility] Start: 05-05-2022 End: 05-05-2022 ambulatory Casandra Chopra Other [employer] Other Start: 05-05-2022 Telephone encounter Casandra Chopra [facility] [place] Start: 05-01-2022 End: 05-02-[address] CASANDRA CHOPRA Facility:[facility] Start: 04-14-2022 End: 04-15-[address] CASANDRA CHOPRA Facility:[facility] Start: 02-19-2022 End: 02-20-[address] CASANDRA CHOPRA Facility:[facility] Start: 02-04-2022 End: 02-04-2022 Patient encounter procedure Russell HARRELL [facility] [place] Start: 12-30-2021 End: 12-31-[address] CASANDRA CHOPRA Facility:[facility] Start: 12-16-2021 End: 12-17-[address] CASANDRA CHOPRA Facility:[facility] Start: 12-03-2021 End: 12-03-2021 ambulatory Casandra Chopra Other [employer] Other Start: 12-03-2021 Telephone encounter Casandra Chopra [facility] [place] Start: 10-22-2021 End: 10-22-2021 ambulatory Casandra Chopra Other [employer] Other Start: 10-22-2021 Telephone encounter Casandra Chopra [facility] [place] Start: 10-17-2021 End: 10-17-2021 ambulatory Casadnra Chopra Other [employer] Other Start: 10-17-2021 Office outpatient visit 25 minutes Casandra Nav [facility] [place] Start: 10-17-2021 Telephone encounter Casandra Chopra [facility] [place] Start: 09-04-2021 End: 09-04-2021 ambulatory Casandra Chopra Other [employer] Other Start: 09-04-2021 Office outpatient visit 15 minutes Casandra Chopra [facility] [place] Start: 04-24-2021 Telephone encounter Casandra Chopra [facility] [place] Start: 04-10-2021 Office outpatient visit 15 minutes Casandra Chopra [facility] [place] Procedures Date Procedure Procedure Detail Performing Clinician Start: 04-14-2024 Plain X-ray abdomen PHY SICIAN NO FAMILY Start: 04-04-2024 Computed tomography of abdomen and pelvis with contrast PHYSICIAN NO FAMILY Start: 04-04-2024 Bacteria identified in Urine by Culture [facility]YSICIAN NO FAMILY Start: 02-23-2024 X-ray of left knee PHYS ICIAN NO FAMILY Start: 02-23-2024 X-ray of right knee PHY SICIAN NO FAMILY Start: 02-16-2024 Bacteria identified in Urine by Culture PHYSICIAN NO FAMILY Start: 02-16-2024 Urine culture PHYSICIAN [...] Russell NILL Ligation of fallopian tube M ichael NILL Release of tendon Russell SANTIAGO Comment on above: left elbow Screening for malign ant neoplasm of breast Casandra Chopra Other Total abdominal hysterectomy with bilateral salpingo-oophorectomy Russell HARRELL Plan of Treatment Date Care Activity Detail Author Start: 04-06-2024 Patient referral [facility] Work Phone: Start: 04-04-2024 Bacteria identified in Urine by Culture [facility] Start: 04-04-2024 Urine culture [facility] Start: 02-16-2024 Bacteria identified in Urine by Culture [facility] Patient Education Acid reflux an d GERD in adults [facility] Work Phone: Patient referral [facility] Work Phone: Urine culture [facility] Immunizations Immunization Date Immunization Notes Care Provider Fa conrado 04-20-2021 COVID-19 Vaccine Pfizer - Documentation Purposes Only Casandra Chopra Other [facility] 04-10-2021 influenza, seasonal, injectable Patient Objection Casandra Chopra Other [employer] Other 03-30-2021 COVID-19 Vaccine Pfizer - Documentation Purposes Only Casandra Chopra Other [facility] 11-21-2016 Toradol per 15 mg Casandra Calderon in Other [employer] Other 06-02-2016 influenza, seasonal, injectable Patient Objection Casandra Chopra Other [employer] Other 06-02-2016 pneumococcal polysaccharide vaccine, 23 valent Patient Objection Casandra Chopra Other [employer] Other 03-23-2012 Kenalog 40/Xylocaine Casandra mendieta Other [employer] Other NEGATED: Highlighted row has not occurred! 1 influenza, seasonal, injectable Patient Objection Casandra Chopra Other [facility] NEGATED: Highlighted row has not occurred! 6 influenza, seasonal, injectable Patient Objection Casandra Chopra Other [facility] NEGATED: Highlighted row has not occurred! 6 pneumococcal polysaccharide vaccine, 23 valent Patient Objection Casandra Xochitllaura Other [facility] Payers Date Payer Category Payer Private Health Insurance [id number] [id number] Self-pay [id number] 2019 Medicare [id number] 2.16.8 [id number] 1959 Medicare [id number] 2. [id number]. 1957 Medicare [id number] 1959 Private Health Insurance [id number] 1959 Unknown [id number] 1950 Unknown [id number] 2.16.84 0.1.407574.3.579.2.593 1950 Unknown [id number] 2.16.84 0.1.426242.3.579.2.593 1950 Unknown [id number] 2.16.84 0.1.749978.3.579.2.593 1950 Unknown [id number] 2.16.84 0.1.753201.3.579.2.593 1952 Unknown [id number] 2.16.84 0.1.927709.3.579.2.593 1952 Unknown [id number] 2.16.84 0.1.719270.3.579.2.593 1950 Unknown [id number] 2.16.84 0.1.156635.3.579.2.593 1952 Unknown [id number] 2.16.84 0.1.253208.3.579.2.593 1952 Unknown [id number] 2.16.84 0.1.138800.3.579.2.593 1950 Unknown [id number] 2.16.84 0.1.091637.3.579.2.593 Unknown [id number] 2.16.8 40.1.973947.3.579.2.531 Unknown [id number] 2.16.8 40.1.661913.3.579.2.531 Unknown [id number] 2.16.8 40.1.202597.3.579.2.531 Unknown [id number] 2.16.8 40.1.320719.3.579.2.531 Unknown [id number] 2.16.8 40.1.617983.3.579.2.531 Social History Date Type Detail Facility Unknown if ever smoked [facility] [employer] Other Start: 07-06-1986 Sex Assigned At N [facility] [employer] Other Start: 02-04-2022 Tobacco smoking status Heavy t obacco smoker (finding) [facility] [place] Tobacco smoking status Never Gener [facility] [place] Start: 1950 Sex Assigned At Female F [facility] Start: 11-04-2023 End: 04-04-2024 Tobacco smoking status NHIS Smoker (finding) [facility] Functional Status Date Assessment Result Facility 02-04-2022 [...] present for entire encounter. Casandra Chopra D.O. [facility] Work Phone: [phone]) 362-872708-13-2024 Evaluation note* Author Casandra [facility] Authored February 16, 2024 10 :49am The above note written by __ _Hero Cody____ acting as human recorder, note dictated by Dr. Li .I performed the above HPI, ROS, and Examination. I formulated and dictated the treatment plan and was present for entire encounter. Casandra Chopra D.O. Author Casandra [facility] Authored April 06, 2024 9: 09am The above note written by __ _Hero Cody____ acting as human recorder, note dictated by Dr. Li .I performed the above HPI, ROS, and Examination. I formulated and dictated the treatment plan and was present for entire encounter. Casandra Chopra D.O. [facility] Work Phone: [phone] 554-251510-31-2023 Evaluation note* Encounter Date Diagnosis Assessment Notes Treatment Notes Treatment Clinical Notes Apr, Hematuria (ICD-10 - R31.9) [employer] Other 10-31-2023 Evaluation note* Encounter Date Diagnosis [...] with above medications as directed. Apr, Other shelter (current) drug therapy (ICD-10 - Z79.899) Apr, [...] refer her to Dr. Blanton for evaluation. 31 Oct, 2023 Hematuria (ICD-10 - R31.9) Her urinalysis is abnormal, she denies any urine infection symptoms. Her urine was not infected. There was blood noted in her urine (5-10 red blood cells). Will discuss a repeat UA and renal ultrasound with patient. Apr, Other She saw Dr. Mic kolher for evaluation of a hernia and he told her to take it easy, if it bothers her or worsens she is to let him know. She has not been mulching. [employer] Other 08-21-2023 Evaluation note* Encounter Date Diagnosis Assessment Notes Treatment Notes Treatment Clinical Notes Feb, Compression fracture of T8 vertebra with routine healing, subsequent encounter (ICD-10 - S22.060D) [employer] Other 06-26-2023 Evaluation note* Encounter Date Diagnosis [...] (ICD-10 - R26.81) Dec, Other OARRS reviewed [employer] Other 04-25-2023 Evaluation note* Encounter Date Diagnosis [...] use above medications as needed. Oct, Other shelter (current) drug therapy (ICD-10 - Z79.899) Oct, Polyarthralgia (ICD-10 - M25.50) She does continue to follow with Dr. Bell and [facility] as scheduled. Oct, COPD (chronic obstructive pulmonary [...] breaths out before she lifts anything heavy. [employer] Other 03-13-2023 Evaluation note* Encounter Date Diagnosis Assessment Notes Treatment Notes Treatment Clinical Notes Sep, Hyperlipidemia (ICD-10 - E78.5) [employer] Other 10-31-2022 Evaluation note* Encounter Date Diagnosis Assessment Notes Treatment Notes Treatment Clinical Notes Apr, Hematuria (ICD-10 - R31.9) [employer] Other 08-04-2022 NoteChief Complaint consultation for ventral hernia HPI Staff 71 year old female presents on consultation from Dr. Chopra for ventral hernia. Reports she moved [facility] [employer] two months ago. Noted epigastric lump several [...] tab(s), Oral, Daily potassium (more content not included)...[facility]:Result Comment: Electronically Signed By: SHARRI BECKER, Russell Valverde\Date and Time Signed: 02/06/22 10:42 [id number] Evaluation note* Encounter Date Diagnosis Assessment Notes [...] with above medication as needed. 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 When she was seen by Dr. [facility] her BP was 80/60 so they wanted [...] stress is going to go down soon. [employer] Other 10-06-2021 Evaluation note* Encounter Date Diagnosis [...] with above medication as needed. Apr, Other shelter (current) drug therapy (ICD-10 - Z79.899) Apr, Other She voices that if she does not take Cranberry tablets her urine becomes thick so she does take the supplement daily. She will be getting her second COVID-19 vaccine on 04-20-21. [employer] Other 02-06-2013 History general Narrative - Reported* Type Description Date Medical History left shoulder & elbow problems Medical History 08/11/12 Cervical spine x-ray [facility] Medical History 10/26/14 refused colonoscopy [...] natural 05/29/19 76 Hospitalization History natural 7 [employer] Other 02-06-2013 History general Narrative - Reported* Type Description Date Medical History left shoulder & elbow problems Medical History 08/11/12 Cervical spine x-ray [facility] Medical History 10/26/14 refused colonoscopy [...] natural 05/29/19 76 Hospitalization History natural 7 [employer] Other 02-06-2013 History general Narrative - Reported* Type Description Date Medical History left shoulder & elbow problems Medical History 08/11/12 Cervical spine x-ray [facility] Medical History 10/26/14 refused colonoscopy [...] natural 05/29/19 76 Hospitalization History natural 7 [employer] Other 02-06-2013 History general Narrative - Reported* Type Description Date Medical History left shoulder & elbow problems Medical History 08/11/12 Cervical spine x-ray [facility] Medical History 10/26/14 refused colonoscopy [...] natural 05/29/19 76 Hospitalization History natural 7 [employer] Other evaluation + Plan note No data available for this section [facility] [place] Evaluation noteNo InformationNort Book'[employer] Other Evaluation noteNo assessment information available [facility] Work Phone: Hospital Discharge instructions No data available for this section [facility] [place] [facility] Discharge instructions Additional Instructions Continue medications as prescribed Push fluids Norman diet avoid anything spicy, hot, greasy, fried, caffeinated beverages Sit upright 30 to 45 minutes after eating and drinking Is important that you follow-up with the GI specialist regarding acid reflux symptoms Please return here if you develop any dizziness, chest pain, shortness of breath or any other concerns Take your antibiotics as instructed until gone for your urinary tract infection You were [facility] Work Phone: Hospital Discharge instructionsAmbulatory Orders* Referral to Gastroenterology Time Frame: 04/06/24, Location: None [facility] Work Phone: Progress note No data available for this section [facility] [place] Summary Purpose Family History No Family History [...] Weight loss Primary osteoarthritis of right knee Chief Complaint fatigue/revew knee x ray R82.[address] CHOPRA RT KNEE PAIN, WX M25.561 - Pain in right knee needs weightbearing right knee osteoarthritis abd pain Reason for Visit Abnormal finding on urinalysis Anemia COPD (chronic obstructive pulmonary disease) Diarrhea Fatigue Hyperlipidemia Knee pain, right Leukocytes in urine Polyarthralgia Weight loss Primary osteoarthritis of right knee Chief Complaint fatigue/revew knee x ray R82.[address] CHOPRA RT KNEE PAIN, WX M25.561 - Pain in right knee needs weightbearing right knee osteoarthritis abd pain ER f/u UTI Reason for Visit Abnormal finding on urinalysis Anemia COPD (chronic obstructive pulmonary disease) Diarrhea Fatigue Hyperlipidemia Knee pain, right Leukocytes in urine Polyarthralgia Weight loss Primary osteoarthritis of right knee Abdominal pain Cystitis Diarrhea Fatigue Leukocytosis Nausea and vomiting Polyarthralgia Primary osteoarthritis of right knee Chief Complaint fatigue/revew knee x ray R82.[address] CHOPRA RT KNEE PAIN, WX M25.561 - Pain in right knee needs weightbearing right knee osteoarthritis abd pain ER f/u UTI Amb Documentation r19.7 Reason for Visit Abnormal finding on urinalysis Anemia COPD (chronic obstructive pulmonary disease) Diarrhea Fatigue Hyperlipidemia Knee pain, right Leukocytes in urine Polyarthralgia Weight loss Primary osteoarthritis of right knee Abdominal pain Cystitis Diarrhea Fatigue Leukocytosis Nausea and vomiting Polyarthralgia Primary osteoarthritis of right knee Chief Complaint fatigue/revew knee x ray R82.[address] CHOPRA RT KNEE PAIN, WX M25.561 - Pain in right knee needs weightbearing right knee osteoarthritis abd pain ER f/u UTI Amb Documentation r19.7 8 WEEKS Reason for Visit Abnormal finding on urinalysis Anemia COPD (chronic obstructive pulmonary disease) Diarrhea Fatigue Hyperlipidemia Knee pain, right Leukocytes in urine Polyarthralgia Weight loss Primary osteoarthritis of right knee Abdominal pain Cystitis Diarrhea Fatigue Leukocytosis Nausea and vomiting Polyarthralgia Primary osteoarthritis of right knee Primary osteoarthritis of right knee Reason for Referral Reason appt pt needs cons ult to evaluate left ear pain Diagnosis 1 Ear pain, left (H92. 02) Referral Organization [facility] Family Medicin e [place] Referring Provider First Name Casandra Referring Provider Last Name Nav Referring Provider Specialty Family Prac amanda Referred Organization [facility] Referred Provider Beth Blanton Referred Address ,[place], [place],[address] Referred Provider Specialty Ear, Nose an d Throat Referral Priority Routine General Notes Eva Weaver 05/05/2023 10:59:36 AM > referral faxed thru [facility] with visit note and insurance card. pt understands she will be contacted to schedule this appt. Additional Source Comments INFORMATION SOURCE (unrecogn ized section and content) DATE CREATED AUTHOR 04/07/2019 [facility] DATE CREATED AUTHOR AUTHOR'S ORGANIZ ATION 03/01/2022 [facility] DATE CREATED AUTHOR AUTHOR'S ORGANIZ ATION 12/12/2022 [facility] DATE CREATED AUTHOR AUTHOR'S ORGANIZ ATION 05/06/2024 [facility] REASON FOR VISIT (unrecogniz [...] Status: Inactive Member Role Status Dates Josiah Kuns , DO Primary Care Provider Active PITO Musa Attending Provider Active Team Status: Inactive Member Role Status Dates Casandra Chopra , DO Attending Provider Active Star t: February 16, 2024 End: February 16, 2024 Team Status: Active Member Role Status Cayden Chopra DO Primary Care Provider Active S tart: February 24, 2024 Sebastian Bell MD Attending Provider Active St art: February 24, 2024 Team Status: Active Member Role Status Cayden Chopra DO Primary Care Provider Active S tart: March 09, 2024 Sebastian Bell MD Attending Provider Active St art: March 09, 2024 Team Status: Active Member Role Status Cayden Chopra DO Primary Care Provider Active S tart: March 23, 2024 Sebastian Bell MD Attending Provider Active St art: March 23, 2024 Team Status: Active Member Role Status Dates Domingo George , DO Attending Provider Active St art: March 29, 2024 Casandra Chopra DO Primary Care Provider Active S tart: March 29, 2024 Team Status: Active Member Role Status Cayden Chopra DO Primary Care Provider Active S tart: March 29, 2024 Isa Sparks MD Attending Provider Active Sta rt: March 29, 2024 Team Status: Active Member Role Status Cayden Chopar DO Primary Care Provider Active S tart: April 02, 2024 Isa Sparks MD Attending Provider Active Sta rt: April 02, 2024 Team Status: Inactive Member Role Status Cayden Chopra DO Primary Care Provider Active S tart: April 04, 2024 End: April 04, 2024 Sabrina Gómez APRN Emergency Provider Active Start: April 04, 2024 End: April 04, 2024 Team Status: Inactive Member Role Status Cayden Chopra DO Primary Care Provide r, Attending Provider Active Start: April 06, 2024 End: April 06, 2024 Team Status: Active Member Role Status Cayden Chopra DO Primary Care Provider Active S tart: April 08, 2024 JIGNA Barroso Attending Provider Active S tart: April 08, 2024 Team Status: Inactive Member Role Status Cayden Chopra DO Primary Care Provide r, Attending Provider Active Start: April 14, 2024 End: April 14, 2024 Team Status: Inactive Member Role Status Dates Domingo George , DO Attending Provider Active St art: April 19, 2024 End: April 19, 2024 Casandra Chopra , DO Primary Care Provider Active S tart: April 19, 2024 End: April 19, 2024 Team Status: Inactive Member Role Status Dates Domingo George , DO Attending Provider Active St art: March 29, 2024 End: March 29, 2024 Casandra Chopra , DO Primary Care Provider Active S tart: March 29, 2024 End: March 29, 2024 Team Status: Active Member Role Status Dates Casandra Chopra , DO Primary Care Provider Active S tart: April 03, 2024 Jamin Sam , DO Attending Provider Active Sta rt: April 03, 2024 Goals (unrecognized section and content) Goals [...] BE BASED ON THE PRIMARY CLINICAL RECORDS. [employer] provides no warranty or guarantee of the accuracy or completeness of information in this document.
[2024-05-18 08:17] LABS: Bilirubin Urine MODERATE (NEGATIVE); Blood Urine NEGATIVE (NEGATIVE); Clarity Urine CLEAR (CLEAR); Color Urine LT. YELLOW (YELLOW); Glucose Urine UA NEGATIVE (NEGATIVE); Ketones Urine NEGATIVE (NEGATIVE); Leukocyte Esterase Urine LARGE (NEGATIVE); Nitrite Urine NEGATIVE (NEGATIVE); Protein Urine NEGATIVE (NEG/TRACE); Urobilinogen Urine 0.2 EU/dL (0.2-1.0)
[2024-05-18 08:30] LABS: Bacteria Urine SMALL #/HPF (NONE SEEN); Cast Seen? NONE SEEN #/LPF (NONE SEEN); Crystals Seen? None Seen #/HPF (None Seen); Mucus Urine NONE SEEN (NONE SEEN); RBC Urine 0-2 #/HPF (0-2); Squamous Epithelial Cell Urine MODERATE #/LPF (NONE/RARE); Transitional Epi Cells Urine MODERATE #/LPF (NONE SEEN)
[2024-05-18 09:02] LABS: Chol HDL Ratio 2.7; Cholesterol 203 mg/dL (<=200); HDL Cholesterol 75 mg/dL (40-60); Triglycerides 69 mg/dL (<=150); VLDL CHOLESTEROL 13.8 mg/dL
[2024-05-19 07:09] LABS: Vitamin B12 773 pg/mL (232-1245)
== END 2024-05-18 08:01 | disposition home or self-care (01) ==
LOC: LAB 08:02
PROVIDERS: PCP Family Medicine; Visit Provider Family Medicine
DX: E78.5 Hyperlipidemia, unspecified (principal); D75.89 Other specified diseases of blood and blood-forming organs; R31.9 Hematuria, unspecified
CPT/HCPCS: 36415; 80061; 81001; 82607; 82746; 87086

== ENCOUNTER 2024-09-14 08:11 | Outpatient (OUT) | payer MEDICARE, SELFPAY ==
[2024-09-14 08:52] LABS: Bilirubin Urine MODERATE (NEGATIVE); Blood Urine NEGATIVE (NEGATIVE); Clarity Urine CLEAR (CLEAR); Color Urine LT. YELLOW (YELLOW); Glucose Urine UA NEGATIVE (NEGATIVE); Ketones Urine NEGATIVE (NEGATIVE); Leukocyte Esterase Urine LARGE (NEGATIVE); Nitrite Urine NEGATIVE (NEGATIVE); Protein Urine NEGATIVE (NEG/TRACE); Urobilinogen Urine 0.2 EU/dL (0.2-1.0)
[2024-09-14 08:59] LABS: Mucus Urine NONE SEEN (NONE SEEN); Squamous Epithelial Cell Urine MODERATE #/LPF (NONE/RARE)
[2024-09-14 09:00] LABS: Basophils Absolute Auto 0.1 10^3/uL (0.0-0.1); Basophils Percent Auto 1.7 % (0.2-2.0); Eosinophils Absolute Auto 0.1 10^3/uL (0.0-0.7); Eosinophils Percent Auto 2.4 % (0.9-7.0); Hematocrit 40.2 % (36.0-48.0); Hemoglobin 12.7 g/dL (12.0-16.0); Immature Granulocytes Abs Auto 0.02 10^3/uL (0.00-0.03); Immature Granulocytes Pct Auto 0.4 % (0.0-0.5); Lymphocytes Absolute Auto 1.1 10^3/uL (1.2-3.8); Lymphocytes Percent Auto 20.2 % (20.5-60.0); Mean Corpuscular HGB Conc 31.6 g/dL (29.9-35.2); Mean Corpuscular Hemoglobin 30.8 pg (26.7-34.0); Mean Corpuscular Volume 97.6 fL (81.0-99.0); Mean Platelet Volume 9.7 fL (9.5-13.5); Monocytes Absolute Auto 0.6 10^3/uL (0.3-0.8); Monocytes Percent Auto 10.6 % (1.7-12.0); Neutrophils Absolute Auto 3.5 10^3/uL (1.4-6.5); Neutrophils Percent Auto 64.7 % (43.0-75.0); Platelet Count 209 10^3/uL (150-450); Red Blood Count 4.12 10^6/uL (4.20-5.40); White Blood Count 5.4 10^3/uL (4.0-11.0)
[2024-09-14 09:01] LABS: Bacteria Urine TRACE #/HPF (NONE SEEN); Cast Seen? NONE SEEN #/LPF (NONE SEEN); Crystals Seen? None Seen #/HPF (None Seen)
[2024-09-14 09:11] LABS: Erythrocyte Sedimentation Rate 17 mm/hr (<=30)
[2024-09-14 09:21] LABS: Alanine Aminotransferase 21 U/L (14-59); Albumin Globulin Ratio 1.2; Albumin Level 3.8 g/dL (3.4-5.0); Alkaline Phosphatase 38 U/L (46-116); Aspartate Amino Transferase 23 U/L (15-37); BUN Creatinine Ratio 16.9; Bilirubin Total 0.4 mg/dL (0.2-1.0); Calcium 8.8 mg/dL (8.5-10.1); Carbon Dioxide 28.2 mmol/L (21.0-32.0); Chloride 101 mmol/L (98-107); Estimated GFR (African America >60 (>=60 mL/min/1.73m^2); Estimated GFR (Non-African Ame >60 (>=60 mL/min/1.73m^2); Globulin 3.3 g/dL; Glucose 84 mg/dL (74-106); Potassium 4.2 mmol/L (3.5-5.1); Sodium 137 mmol/L (136-145); Total Protein 7.1 g/dL (6.4-8.2)
[2024-09-15 04:07] LABS: Complement C3, Serum 118 mg/dL (82-167); Complement C4, Serum 19 mg/dL (12-38)
[2024-09-15 15:10] LABS: Complement, Total (CH50) >60 U/mL (>41)
== END 2024-09-14 08:12 | disposition home or self-care (01) ==
PROVIDERS: PCP Family Medicine; Visit Provider Internal Medicine Rheumatology
DX: M35.1 Other overlap syndromes (principal); M15.0 Primary generalized (osteo)arthritis; Z79.899 Other long term (current) drug therapy
CPT/HCPCS: 36415; 80053; 81001; 85025; 85652; 86160; 86162

== ENCOUNTER 2024-11-03 08:22 | Outpatient (OUT) | payer MEDICARE, SELFPAY ==
[2024-11-03 08:48] LABS: Basophils Absolute Auto 0.1 10^3/uL (0.0-0.1); Basophils Percent Auto 1.7 % (0.2-2.0); Eosinophils Absolute Auto 0.1 10^3/uL (0.0-0.7); Eosinophils Percent Auto 1.7 % (0.9-7.0); Hematocrit 38.1 % (36.0-48.0); Hemoglobin 12.4 g/dL (12.0-16.0); Immature Granulocytes Abs Auto 0.02 10^3/uL (0.00-0.03); Immature Granulocytes Pct Auto 0.4 % (0.0-0.5); Lymphocytes Absolute Auto 1.1 10^3/uL (1.2-3.8); Lymphocytes Percent Auto 19.4 % (20.5-60.0); Mean Corpuscular HGB Conc 32.5 g/dL (29.9-35.2); Mean Corpuscular Hemoglobin 31.1 pg (26.7-34.0); Mean Corpuscular Volume 95.5 fL (81.0-99.0); Mean Platelet Volume 9.5 fL (9.5-13.5); Monocytes Absolute Auto 0.6 10^3/uL (0.3-0.8); Monocytes Percent Auto 10.1 % (1.7-12.0); Neutrophils Absolute Auto 3.6 10^3/uL (1.4-6.5); Neutrophils Percent Auto 66.7 % (43.0-75.0); Platelet Count 187 10^3/uL (150-450); Red Blood Count 3.99 10^6/uL (4.20-5.40); Red Cell Distribution Width 13.7 % (11.0-15.0); White Blood Count 5.4 10^3/uL (4.0-11.0)
[2024-11-03 09:17] LABS: Bilirubin Urine MODERATE (NEGATIVE); Blood Urine NEGATIVE (NEGATIVE); Clarity Urine CLEAR (CLEAR); Color Urine LT. YELLOW (YELLOW); Glucose Urine UA NEGATIVE (NEGATIVE); Ketones Urine NEGATIVE (NEGATIVE); Leukocyte Esterase Urine LARGE (NEGATIVE); Nitrite Urine NEGATIVE (NEGATIVE); Protein Urine NEGATIVE (NEG/TRACE); Specific Gravity Urine 1.015 (1.005-1.025); Urobilinogen Urine 0.2 EU/dL (0.2-1.0)
[2024-11-03 10:24] LABS: Alanine Aminotransferase 26 U/L (14-59); Albumin Globulin Ratio 1.1; Albumin Level 3.5 g/dL (3.4-5.0); Alkaline Phosphatase 34 U/L (46-116); Anion Gap 12.7; Aspartate Amino Transferase 20 U/L (15-37); Bilirubin Total 0.3 mg/dL (0.2-1.0); Calcium 8.9 mg/dL (8.5-10.1); Carbon Dioxide 28.4 mmol/L (21.0-32.0); Chloride 102 mmol/L (98-107); Chol HDL Ratio 2.8; Cholesterol 202 mg/dL (<=200); Estimated GFR (African America >60 (>=60 mL/min/1.73m^2); Estimated GFR (Non-African Ame >60 (>=60 mL/min/1.73m^2); Globulin 3.1 g/dL; Glucose 75 mg/dL (74-106); HDL Cholesterol 73 mg/dL (40-60); Potassium 4.1 mmol/L (3.5-5.1); Sodium 139 mmol/L (136-145); Total Protein 6.6 g/dL (6.4-8.2); Triglycerides 55 mg/dL (<=150)
[2024-11-04 07:16] LABS: Vitamin B12 817 pg/mL (232-1245)
== END 2024-11-03 08:23 | disposition home or self-care (01) ==
LOC: LAB 08:24
PROVIDERS: PCP Family Medicine; Visit Provider Family Medicine
DX: Z12.31 Encounter for screening mammogram for malignant neoplasm of breast (principal); Z80.41 Family history of malignant neoplasm of ovary; Z79.899 Other long term (current) drug therapy; N30.90 Cystitis, unspecified without hematuria; D64.9 Anemia, unspecified; D75.89 Other specified diseases of blood and blood-forming organs; E78.5 Hyperlipidemia, unspecified
CPT/HCPCS: 36415; 77063; 77067; 80053; 80061; 81003; 82607; 82746; 85025; 87086

== ENCOUNTER 2024-11-03 09:06 | Outpatient (OUT) | payer MEDICARE, SELFPAY ==
--- NOTE | 2024-11-03 09:08 | MM_ITS ---
Patient Name: GENNA GALVAN MR#: [id number] : 1950 Exam Date: 11/03/2024 Ordering Doctor: DR CASANDRA CHOPRA RADIOLOGY REPORT PROCEDURE: MM TOMOSYNTHESIS SCREENING BI COMPARISON: MG MAMM SCREEN 3D HERBERT CAD, 04/14/2022. MG MAMM SCREEN 3D HERBERT CAD, 11/22/2020. MG MAMM SCREEN HERBERT W CAD, 05/28/2018. MG MAMM SCREEN HERBERT W CAD, 11/30/2014. INDICATIONS: Screening Calculator Name NCI Breast Cancer Risk Assessment Tool 5 Year Breast Cancer Risk 1.70% Lifetime Breast Cancer Risk 4.50% Personal Breast Cancer No Personal Ovarian Cancer No Treatments None Family Cancers Aunt-maternal with ovarian cancer at age ~42. LOCATION: [facility] BREAST COMPOSITION: There are scattered areas of fibroglandular density. FINDINGS: DIAGNOSTIC CATEGORY 1--NEGATIVE. RIGHT BREAST: No significant suspicious finding. LEFT BREAST: No significant suspicious finding. RECOMMENDATIONS: ROUTINE MAMMOGRAM AND CLINICAL EVALUATION IN 12 MONTHS. PLEASE NOTE: A NORMAL MAMMOGRAM DOES NOT EXCLUDE THE POSSIBILITY OF BREAST CANCER. A CLINICALLY SUSPICIOUS PALPABLE LUMP SHOULD BE BIOPSIED. Dictated by: Theodore Wall DO on 11/03/2024 at 16:09 Approved by: Theodore Wall DO on 11/03/2024 at 16:10
== END 2024-11-03 09:07 | disposition home or self-care (01) ==
LOC: MAMMO 09:06
PROVIDERS: PCP Family Medicine; Visit Provider Family Medicine
DX: Z12.31 Encounter for screening mammogram for malignant neoplasm of breast (principal); Z80.41 Family history of malignant neoplasm of ovary
CPT/HCPCS: 77063; 77067

== ENCOUNTER 2024-12-07 08:30 | Outpatient (OUT) | payer MEDICARE, SELFPAY ==
--- OUTSIDE RECORDS SUMMARY | 2023-12-03 06:00 | XMS_ITS ---
Author Organization [facility] [place] Address [address] [place] [address] Care Team Providers Care Control Room Agent Name Role Phone Melo Nieto DO Primary Care Provider Unavailab Carlyle Gatica Unavailable [phone] REASON FOR VISIT 3y COPD, fibrosis, CT/PFT Encounters Encounter Location Date Provider Diagnosis [facility] [address] [place] [address] 12/03/2023 Carlyle Copeland Plan Of Treatment Next Appt Details Provider Name:Carlyle Copeland, 12/13/2024 10:00:00 AM, [address] [place], [address], Progress Notes * Corby GALVANMontyB:1950 (74 yo F)Acc No.[id number]:12/03/2023 UNLOCKED PROGRESS NOTE Follow Up Patient: Parisa JACKSON Provider: David Copeland DO :1950 A ge:73 Y S ex:Female Date:12/03/2023 Address:[address] [place] [id number] Pcp:Melo Nieto DO Subjective: * Chief Complaints: * 1 . 3y COPD, fibrosis, CT/PFT. * Medical History: Objective: * Vitals: Assessment: Plan: * Treatment: * * Electronic signature of Chrystal Copeland DO on 12/07/2024 at 08:31 AM EDT Sign off status: Pending Visit Status: R /S (Rescheduled) * Provider: David Copeland DO Date: 0 12/03/2023 Generated for Zeny drake/Lyle/Victor Hugo on: 0 12/07/2024 08:31 AM EDT
--- OUTSIDE RECORDS SUMMARY | 2023-12-09 07:00 | XMS_ITS ---
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 Name Role Phone Melo Nieto DO Primary Care Provider Unavailab ayala Min Carlyle Unavailable [phone] Allergies Allergen (clinical drug ingredient) Drug/Non Drug Allergy documented on EMR Reaction Allergy Type Onset Date Status Vicodin itching Drug Allergy Active bupropion Bupropion anxiety/depressi on Drug Allergy Active REASON FOR VISIT 1y COPD, fibrosis, CT/PFT Medications Medication SIG (Take, Route, Frequency, Duration) Notes Start Date End Date Status Furosemide 20 MG 1 tablet Orally Once a day Active Hydroxychloroquine Sulfate 200 MG as directed Orally Active Ibandronate Sodium 150 MG 1 tablet 60 minutes before the first food, beverage or medicine of the day with plain water Orally Active Pantoprazole Sodium 40 MG 1 tablet Orall y Once a day Active Potassium Chloride ER 10 MEQ 1 tablet with food Orally Twice a day Active Ventolin HFA 108 (90 Base) MCG/ACT 2 puffs as needed for SOB Inhalation every 4 hrs for 90 days Active Trelegy Ellipta 100-62.5-25 MCG/ACT 1 puff Inhalation Once a day for 90 days Rinse after use Active Etodolac 500 MG 1 tablet with food Orally Twice a day Active Atorvastatin Calcium 10 MG 1 tablet Oral ly Once a day Active Ipratropium Upatoi 0.03 % 2 sprays in e ach nostril as needed for congestion Nasally Twice a day for 90 days Active Social History Tobacco Use: Social History Observation Description Date Details (start date - stop date) Current Smoker NA - NA Tobacco Use/Smoking Question Answer Notes Patient is a current smoker How often do you smoke cigarettes? every day How many cigarettes a day do you smoke? 6-10 Additional Findings: Tobacco User Light cigarett e smoker ((1-9 cigs/day) Tobacco Control (Standard) Question Answer Notes Tobacco use: Current every day smoker Additional Findings: Tobacco user Moderate cigar ette smoker (10-19 cigs/day) Problems Problem Type SNOMED Code ICD Code Onset Dates Problem Status W/U Status Risk Notes Problem Body mass index [BMI] 31.0-31.9, adult (Z68.31) Active confirmed Vital Signs Weight 176.6 lbs 12/09/2023 Height 62.75 in 12/09/2023 Blood pressure systolic 117 mm Hg 12/09/19 Blood pressure diastolic 74 mm Hg 024 Temperature 96.9 degrees Fahrenheit 12/09/19 Heart Rate 77 /min 12/09/2023 Respiratory Rate 18 /min 12/09/2023 BMI 31.53 kg/m2 12/09/2023 Oximetry 98 % 12/09/2023 Encounters Encounter Location Date Provider Diagnosis Pulmonary Medicine [address] [address] 12/09/2023 Carlylejuli Kohli Chronic obstructive pulmonary disease J44.9 ; Bronchiectasis J47.9 ; 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 ; Multiple pulmonary nodules R91.8 ; Allergic rhinitis J30.9 ; Heterozygous alpha 1-antitrypsin deficiency E88.01 ; Cigarette nicotine dependence with nicotine-induced disorder F17.219 ; Inflammatory polyarthropathy M06.4 ; 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 Rare albuterol use. PFT spirometry and plethysmography relatively unchanged over the past 4 years, but DLCO has dropped, but I believe this could be secondary to smoking prior to testing (competitive inhibition of the smoke's carbon monoxide with the test's will artificially lower the reading). She is not having any worsening symptoms at this point. From a strictly pulmonary side, I feel she can forgo a PFT next year and repeat it in 2 years, though if rheumatology feels strongly otherwise, it can be ordered with her annual LDCT due November 2024. Refilled Trelegy and albuterol. F/U 1 year or sooner PRN. 12/09/2023 Bronchiectasis (ICD-10 - J47.9) Incidental finding noted once again on LDCT. Patient not having any significant coughing symptoms at this time. 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 Previously associated with connective tissue disease. Will monitor indirectly with LDCT 11/2024. 12/09/2023 Multiple pulmonary nodules (ICD-10 - R91.8) Unchanged bilateral pulmonary nodules are stable - largest is 4mm. Continue monitoring via LDCT. 12/09/2023 Allergic rhinitis (ICD-10 - J30.9) Occasionally has symptoms which are treated successfully with PRN Atrovent use. Continue Atovent nasal spray. 12/09/2023 Heterozygous alpha 1-antitrypsin deficiency (ICD-10 - E88.01) Genotype RI Patient has variant alpha1-antitrypsin phenotype RI. This in itself typically will not cause or typically contribute to emphysema. 12/09/2023 Cigarette nicotine dependence with nicotine-induced disorder (ICD-10 - F17.219) Discused smoking cessation again. She voices no interest in stopping completely - I have been discussing this with her for years and I believe she understands the risks. She is down to 1/3ppd at least. LDCT no change from 12/04/2023 compared to 12/02/2022 & 11/29/2021 - RADS 2. Continue annual LDCT - due end of November 2024. 12/09/2023 Inflammatory polyarthropathy (ICD-10 - M06.4) On Plaquenil. F/U with Dr. Mcdaniel. 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 12/09/2023 Encounter for screening for malignant neoplasm of respiratory organs (ICD-10 - Z12.2) Low-dose CT (LDCT) was recommended for lung cancer screening. The patient meets criteria including age 50-77, a smoking history of at least 20 pack-years, is currently smoking or has ceased smoking within the past 15 years, and has no signs or symptoms of lung cancer. Shared decision making performed with the patient. After LDCT has been completed, will review report and/or imaging and provide appropriate recommendations for the patient, including additional follow up if needed. Patient was counseled on smoking cessation/continue d tobacco abstinence. 12/09/2023 Obesity, unspecified (ICD-10 - E66.9) Patient's weight is inducing a restrictive pulmonary physiology. Weight loss indicated: Decrease calories, increase activity. 12/09/2023 Body mass index [BMI] 31.0-31.9, adult (ICD-10 - Z68.31) Plan Of Treatment Medication Medication Name Sig Start Date Stop Date Notes Ventolin HFA 108 (90 Base) MCG/ACT 2 puffs as needed for SOB Inhalation every 4 hrs for 90 days Trelegy Ellipta 100-62.5-25 MCG/ACT 1 puff Inhalation Once a day for 90 days Rinse after use Ipratropium Upatoi 0.03 % 2 sprays in each nostril as needed for congestion Nasally Twice a day for 90 days Treatment Notes Assessment Notes Chronic obstructive pulmonary disease Patient continues to remain compensated on Trelegy without any significant exacerbations. Rare albuterol use. PFT spirometry and plethysmography relatively unchanged over the past 4 years, but DLCO has dropped, but I believe this could be secondary to smoking prior to testing (competitive inhibition of the smoke's carbon monoxide with the test's will artificially lower the reading). She is not having any worsening symptoms at this point. From a strictly pulmonary side, I feel she can forgo a PFT next year and repeat it in 2 years, though if rheumatology feels strongly otherwise, it can be ordered with her annual LDCT due November 2024. Refilled Trelegy and albuterol. F/U 1 year or sooner PRN. Bronchiectasis Incidental finding noted once again on LDCT. Patient not having any significant coughing symptoms at this time. Postinflammatory pulmonary fibrosis Noted on prior imaging, but not even addressed on LDCT 12/04/2023. Previously associated with connective tissue disease. Will monitor indirectly with LDCT 11/2024. Multiple pulmonary nodules Unchanged bilateral pulmonary nodules are stable - largest is 4mm. Continue monitoring via LDCT. Allergic rhinitis Occasionally has symptoms which are treated successfully with PRN Atrovent use. Continue Atovent nasal spray. Heterozygous alpha 1-antitrypsin deficie ncy Patient has variant alpha1-antitrypsin phenotype RI. This in itself typically will not cause or typically contribute to emphysema. Cigarette nicotine dependenc e with nicotine-induced disorder Discused smoking cessation again. She voices no interest in stopping completely - I have been discussing this with her for years and I believe she understands the risks. She is down to 1/3ppd at least. LDCT no change from 12/04/2023 compared to 12/02/2022 & 11/29/2021 - RADS 2. Continue annual LDCT - due end of November 2024. Inflammatory polyarthropathy On Plaquenil. F/U with Dr. Mcdaniel. 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 Encounter for screening for malignant neoplasm of respiratory organs Low-dose CT (LDCT) was recommended for lung cancer screening. The patient meets criteria including age 50-77, a smoking history of at least 20 pack-years, is currently smoking or has ceased smoking within the past 15 years, and has no signs or symptoms of lung cancer. Shared decision making performed with the patient. After LDCT has been completed, will review report and/or imaging and provide appropriate recommendations for the patient, including additional follow up if needed. Patient was counseled on smoking cessation/continued tobacco abstinence. Obesity, unspecified Patient's weight is inducing a restrictive pulmonary physiology. Weight loss indicated: Decrease calories, increase activity. Future Test Test Name Order Date CT Chest Low Dose for Screening* 025 Next Appt Details Follow Up: 1 Year, Reason: C OPD, LDCT Provider Name:Carlyle Copeland, 12/13/2024 10:00:00 AM, [address] [place], [address], Procedure Notes * Category Sub-Category Detail Notes PFT Data: 12/04/2023-FEV1/F VC: 68%-FEV1: 86%-FVC: 95%-TDM34-54%: 55%-Bronchodilator response: None-RV: 97%-T%-DLCO: 49%-Flow-volume loop: Mild obstruction12/02/2022-FEV1/FVC: 66%-FEV1: 88%-FVC: 102%-FNB15-10%: 47%-Bronchodilator response: None-RV: 49%-T%-DLCO: 61%-Flow-volume loop: Mild obstruction11/29/2021-FEV1/FVC: 71%-FEV1: 86%-FVC: 92%-AXR25-53%: 64% -Bronchodilator response: None-RV: 100%-T%-DLCO: 57%-Flow-volume loop: Mild obstruction11/22/2020-FEV1/FVC: 69%-FEV1: 89%-FVC: 97%-CMA23-28%: 54%-Bronchodilator response: None-RV: 133%-T%-DLCO: 63%-Flow-volume loop: Mild kogkoglzuyu87/04/2019-FEV1/FVC: 65%-FEV1: 78%-FVC: 92%-SVE87-09%: 48%-Bronchodilator response: None-RV: 123%-T%-DLCO: 59%-Flow-volume loop: Mild obstruction Alpha-1 Antitrypsin Screening Date: 04/03/2020 Genotype: M/I Confirmatory Date: 04/18/2020 Level: 111.8 mg/dL Progress Notes * Laz GALVANB:1950 (73 yo F)Acc No.[id number]:12/09/2023 Follow Up Patient: Parisa JACKSON Provider: David Copeland DO :1950 A ge:73 Y S ex:Female Date:12/09/2023 Address:[address] [place], [place] [id number] Pcp:Melo Nieto, Check In:10:34 AM ESTCheck O ut:11:13 AM EST Subjective: * Chief Complaints: * 1 y COPD, fibrosis, CT/PFT * HPI: G eneral: 1 YEAR F/U Patient states she has been doing okay. She loves Trelegy and does not miss a dose. She rarely uses albuterol. She has some mild DE LEON, but it usually recovers with a brief period of rest. Denies any adverse effects. LDCT and PFT were done on 12/04/2023 and reviewed with the patient. LDCT shows stability of pulmonary nodules (largest 4mm) without any change in size or number compared to 12/02/2022. There was no mention of any worsening fibrosis or interstitial changes. PFT was relatively unchanged when comparing past studies as far back as 2019 w ith the exceptionthat the DLCO has decreased to 49%. The patient admitted to smoking a cigarette ~3 hours prior to testing which could account for the decrease in DLCO compared to prior studies. MA Intake Comments: Patient presents for a follow-up for COPD. Patient complains of SOB with exertion. Patient states her anxiety really exacerbates her breathing. Patient admits to smoking 5-6 cigarettes per day. Patient states she has no desire to stop smoking and knows the risk. Patient states 1 pack of cigarettes will last her 3 days. Patient is using Trelegy daily with benefit. Patient reports rare albuterol use. Patient recently had a PFT & LDCT performed on 12/07/2023 at [facility]. Patient is under the care of . * ROS: G eneral/Constitutional: Fever or sweats d enies. C hange of appetite d enies. C hills d enies. W eight Change d enies. H EENT: Blurry Vision d enies. D ry mouth d enies. S ore throat d enies. N osebleed d enies. D ry Eyes d enies. O ral Ulcers d enies. P ost Nasal Drip r are, controlled with Atrovent when present. H oarseness D enies. C ardiovascular: Tachycardia d enies. C hest pain d enies. P alpitations d enies. R espiratory: Pleurisy D enies. D yspnea w ith exertion. C ough d enies. H emoptysis d enies. S putum production d enies. W heezing d enies. G astrointestinal: Acid Reflux/GERD/Heartburn d enies. D ysphagia d enies. M usculoskeletal: Arthralgias/joint pain A dmits. B ack pain a dmits. S kin: Rash d enies. N eurologic: Seizures d enies. T remor d enies. H ematology: Abnormal Bleeding d enies. P sychiatric: Anxiety a dmits. * Active Problem List M06.4 Inflammatory polyart hropathy Modified On:12/03/2022 Status:confirmed Z79.51 USP (current) use of inhaled steroids Modified On:12/03/2022 Status:confirmed J44.9 Chronic obstructive pulmonary disease Modified On:12/03/2022 Status:confirmed J30.9 Allergic rhinitis Modified On:12/03/2022 Status:confirmed F17.219 Cigarette nicotine d ependence with nicotine-induced disorder Modified On:12/03/2022 Status:confirmed J47.9 Bronchiectasis Modified On:12/03/2022 Status:confirmed R91.8 Multiple pulmonary n odules Modified On:12/03/2022 Status:confirmed J84.10 Postinflammatory pul monary fibrosis Modified On:12/03/2022 Status:confirmed E88.01 Heterozygous alpha 1 -antitrypsin deficiency Modified On:12/03/2022U Status:confirmed S22.069A T8 vertebral fractur e Modified On:12/03/2022 Status:confirmed E66.9 Obesity, unspecified Modified On:12/03/2022 Status:confirmed Z68.31 Body mass index [BMI ] 31.0-31.9, adult Modified On:12/09/2023 Status:confirmed * Medical History: * Surgical History: a rthroscopy shoulder-left cataract removal neck surgery vein ligation hysterectomy foot surgery-right * Hospitalization/Major Diagno stic Procedure: D enies Past Hospitalization * Family History: F ather: asthma. M other: melanoma, diagnosed with Hypertension. P aternal Grandfather: diagnosed with Diabetes, Heart Disease, Cancer. P aternal Grandmother: diagnosed with Heart Disease, Cancer, Diabetes. M aternal Grandfather: diagnosed with Diabetes, Heart Disease, Cancer.?Maternal Grandmother: diagnosed with Diabetes, Heart Disease, Cancer. * Social History: T obacco Use: T obacco Control (Standard) T obacco use: C urrent every day smoker A dditional Findings: Tobacco user M oderate cigarette smoker (10-19 cigs/day) Electronic Cigarette use C urrent user N o LM: Additional Tobacco Questions N umber of Years Pt Smoked: 4 1 N umber of Packs per Day: . 5 Tobacco Use/Smoking P atient is a c urrent smoker H ow often do you smoke cigarettes? e very day H ow many cigarettes a day do you smoke? 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 D rugs/Alcohol: D rugs H ave you used drugs other than those for medical reasons in the past 12 months? N o D oes the Patient have a History of Drug Abuse in the Past? N o Caffeine I ntake: m ore than 4 cups per day Coffee Do you drink alcohol?: No. Do you smoke marijuana?: Denies. * Medications: T akingAtorvastatin Calcium 10 MG Tablet 1 tablet Orally Once a day Etodolac 500 MG Tablet 1 tablet with food Orally Twice a day Furosemide 20 MG Tablet 1 tablet Orally Once a day Hydroxychloroquine Sulfate 200 MG Tablet as directed Orally Ibandronate Sodium 150 MG Tablet 1 tablet 60 minutes before the first food, beverage or medicine of the day with plain water Orally Ipratropium Upatoi 0.03 % Solution 2 sprays in each nostril as needed for congestion Nasally Twice a day Pantoprazole Sodium 40 MG Tablet Delayed Release 1 tablet Orally Once a day Potassium Chloride ER 10 MEQ Tablet Extended Release 1 tablet with food Orally Twice a day Trelegy Ellipta(Lzqrceoabni-Alusllwkg-Hvwolo) 100-62.5-25 MCG/ACT Aerosol Powder Breath Activated 1 puff Inhalation Once a day , Notes to Pharmacist: Rinse after useVentolin HFA(Albuterol Sulfate HFA) 108 (90 Base) MCG/ACT Aerosol Solution 2 puffs as needed for SOB Inhalation every 4 hrs Medication List reviewed and reconciled with the patientTaking Atorvastatin Calcium 10 MG Tablet 1 tablet Orally Once a day Taking Etodolac 500 MG Tablet 1 tablet with food Orally Twice a day Taking Furosemide 20 MG Tablet 1 tablet Orally Once a day Taking Hydroxychloroquine Sulfate 200 MG Tablet as directed Orally Taking Ibandronate Sodium 150 MG Tablet 1 tablet 60 minutes before the first food, beverage or medicine of the day with plain water Orally Taking Ipratropium Upatoi 0.03 % Solution 2 sprays in each nostril as needed for congestion Nasally Twice a day Taking Pantoprazole Sodium 40 MG Tablet Delayed Release 1 tablet Orally Once a day Taking Potassium Chloride ER 10 MEQ Tablet Extended Release 1 tablet with food Orally Twice a day Taking Trelegy Ellipta(Gmgjbapolbk-Idsobqdxt-Gymdiw) 100-62.5-25 MCG/ACT Aerosol Powder Breath Activated 1 puff Inhalation Once a day , Notes to Pharmacist: Rinse after useTaking Ventolin HFA(Albuterol Sulfate HFA) 108 (90 Base) MCG/ACT Aerosol Solution 2 puffs as needed for SOB Inhalation every 4 hrs Medication List reviewed and reconciled with the patient * Allergies: V icodin: itching - AllergyBupropion: anxiety/depression - Allergyno[Allergies Verified] Objective: * Vitals: W t:176.6lbs, Ht: 62.75 in, BP:sittin/74mm Hg, Temp:Forehead:96.9F, HR:77/min, RR:18/min, BMI:31.53Index, Oxygen sat %:Room Air:98%, Ht-cm: 159.39 cm, Wt-k.1 kg. * Examination: E xam: GENERAL APPEARANCE: A ppears stated age. Skin N ormal. Mouth P ink and moist , Upper and lower dentures. Oropharynx/Tongue M allampati Class III. Trachea M idline. Chest N ormal. Respiratory Normal M ovements, E ffort N ormal. Auscultation D iminished breath sounds , Dry crackles end inspiration in the bases. Percussion N ormal. Cardiac R egular rate and rhythm. Gastrointestinal N ormal. Vascular N o edema. Musculoskeletal N ormal posture. Neurological F ocal, intact. Psychiatric A lert and oriented x3. Mentation/Cognition N ormal. Assessment: * Assessment: 1. C hronic obstructive pulmonary disease - J44.9 (Primary) 2 . B ronchiectasis - J47.9?3. P ostinflammatory pulmonary fibrosis - J84.10 4 . M ultiple pulmonary nodules - R91.8 5 . A llergic rhinitis - J30.9 6 . H eterozygous alpha 1-antitrypsin deficiency - E88.01, Genotype RI 7 . C igarette nicotine dependence with nicotine-induced disorder - F17.219 8 . I nflammatory polyarthropathy - M06.4 9 . L amy term (current) use of inhaled steroids - Z79.51 1 0. E ncounter for screening for malignant neoplasm of respiratory organs - Z12.2 1 1. O besity, unspecified - E66.9 1 2. B kayley mass index [BMI] 31.0-31.9, adult - Z68.31 Plan: * Treatment: 2. B ronchiectasis Notes: Incidental finding noted once again on LDCT. Patient not having any significant coughing symptoms at this time. 3. P ostinflammatory pulmonary fibrosis Notes: Noted on prior imaging, but not even addressed on LDCT 12/04/2023. Previously associated with connective tissue disease. Will monitor indirectly with LDCT 11/2024. 4. M ultiple pulmonary nodules Notes: Unchanged bilateral pulmonary nodules are stable - largest is 4mm. Continue monitoring via LDCT.? 5. A llergic rhinitis Start Ipratropium Upatoi Solution, 0.03 %, 2 sprays in each nostril as needed for congestion, Nasally, Twice a day, 90 days, 3 each, Refills 4. Notes: Occasionally has symptoms which are treated successfully with PRN Atrovent use. Continue Atovent nasal spray. 6. H eterozygous alpha 1-antitrypsin deficiency Notes: Patient has variant alpha1-antitrypsin phenotype RI. This in itself typically will not cause or typically contribute to emphysema. 7. C igarette nicotine dependence with nicotine-induced disorder I maging: CT Chest Low Dose for Screening* (Ordered for 12/03/2024) Notes: Discused smoking cessation again. She voices no interest in stopping completely - I have been discussing this with her for years and I believe she understands the risks. She is down to 1/3ppd at least. LDCT no change from 12/04/2023 compared to 12/02/2022 & 11/29/2021 - RADS 2. Continue annual LDCT - due end of November 2024. 8. I nflammatory polyarthropathy Notes: On Plaquenil. F/U with Dr. Mcdaniel. 9. L amy term (current) use of inhaled steroids Notes: Patient was counseled to rinse & gargle with water after inhaled corticosteroid use. 10. E ncounter for screening for malignant neoplasm of respiratory organs I maging: CT Chest Low Dose for Screening* (Ordered for 12/03/2024) Notes: Low-dose CT (LDCT) was recommended for lung cancer screening. The patient meets criteria including age 50-77, a smoking history of at least 20 pack-years, is currently smoking or has ceased smoking within the past 15 years, and has no signs or symptoms of lung cancer. Shared decision making performed with the patient. After LDCT has been completed, will review report and/or imaging and provide appropriate recommendations for the patient, including additional follow up if needed. Patient was counseled on smoking cessation/continued tobacco abstinence. 11. O besity, unspecified Notes: Patient's weight is inducing a restrictive pulmonary physiology. Weight loss indicated: Decrease calories, increase activity. * Procedures: A lpha-1 Antitrypsin: Screening Date: 0 04/03/2020. Genotype: M /I. Confirmatory Date: 1 . Level: 1 11.8 mg/dL. P FT: Data: 12/04/2023 -FEV1/FVC: 68% -FEV1: 86% -FVC: 95% -TEX83-97%: 55% -Bronchodilator response: None -RV: 97% -T% -DLCO: 49% -Flow-volume loop: Mild obstruction 12/02/2022 -FEV1/FVC: 66% -FEV1: 88% -FVC: 102% -XOM00-75%: 47% -Bronchodilator response: None -RV: 49% -T% -DLCO: 61% -Flow-volume loop: Mild obstruction 11/29/2021 -FEV1/FVC: 71% -FEV1: 86% -FVC: 92% -JKB87-20%: 64% -Bronchodilator response: None -RV: 100% -T% -DLCO: 57% -Flow-volume loop: Mild obstruction 11/22/2020 -FEV1/FVC: 69% -FEV1: 89% -FVC: 97% -YIU34-84%: 54% -Bronchodilator response: None -RV: 133% -T% -DLCO: 63% -Flow-volume loop: Mild obstruction 05/09/2019 -FEV1/FVC: 65% -FEV1: 78% -FVC: 92% -ISM92-02%: 48% -Bronchodilator response: None -RV: 123% -T% -DLCO: 59% -Flow-volume loop: Mild obstruction. ? * Procedure Codes: * Preventive Medicine: COVID Vaccination: H as patient had COVID Vaccination? COVID Vaccination Y es 04/20/2021 Immunization Status: P neumovacc P t Refused. I nfluenza P t Refused. Screenings/Counseling: F ALL RISK SCREENING Fall Risk Assessment: N o falls in the past year Are you afraid of falling? N o T OBACCO ACTION PLAN Patient counselled on the dangers of tobacco use and urged to quit. 0 12/09/2023 Cessation counseling provided 0 12/09/2023 F GABBY EXCLUSION Reason: P atient Reason refused/declined Type of Patient Reason: D rug declined by patient B RI ACTION PLAN Above Normal BMI Follow-up D ietary management education, guidance, and counseling * Follow Up: 1 Year (Reason: COPD, LDCT) * * Sign off status: Completed Visit Status: C HK (Check Out) true * Provider: David Copeland DO Date: 12/09/2023 Generated for Zeny drake/Lyle/Lidiaitting on: 12/07/2024 08:31 AM EDT History and Physical Notes * Examination Category Sub-Category Detail Notes Category Not es Exam GENERAL APPEARANCE: Appears stated age Skin Normal Mouth [place] and moist , Upp er and lower dentures Trachea Midline Chest Normal Respiratory Normal Movements, Ef fort Normal Auscultation Diminished breath so unds , Dry crackles end inspiration in the bases Percussion Normal Egophony Bronchophony Fremitus Whispered pectoriloquy Cardiac Regular rate and rhy thm Gastrointestinal Normal Vascular No edema Musculoskeletal Normal posture Neurological Focal, intact Psychiatric Alert and oriented x 3 Mentation/Cognition Normal Oropharynx/Tongue Mallampati Class III
--- OUTSIDE RECORDS SUMMARY | 2024-06-22 06:25 | XMS_ITS ---
Author Organization [facility] [place] Address [address] [place] [address] Care Team Providers Care Car Loader Name Role Phone Melo Nieto DO Primary Care Provider Unavailab Carlyle Gatica Unavailable [phone] REASON FOR VISIT Sick Medications Medication SIG (Take, Route, Frequency, Duration) Notes Start Date End Date Status Doxycycline Hyclate 100 MG 1 capsule Orally BID for 7 days Can dispense doxycycline 100mg tabs if capsules not available or too expensive for the patient 06/22/2024 Active predniSONE 20 MG 3 tabs x 3 days, 2 tabs x 3 days, 1 tab x 3 days Orally Once a day for 9 days 06/22/2024 Active Encounters Encounter Location Date Provider Diagnosis Pulmonary Medicine [address] [place] [address] 06/22/2024 Carlyle Copeland Acute bronchitis, unspecified J20.9 Assessments Encounter Date Diagnosis (ICD Code) Assessment Notes Treatment Notes Treatment Clinical Notes Section Notes 06/22/2024 Acute bronchitis, unspecified (ICD-10 - J20.9) Plan Of Treatment Medication Medication Name Sig Start Date Stop Date Notes Doxycycline Hyclate 100 MG 1 capsule Orally BID for 7 days 06/22/2024 Can dispense doxycycline 100mg tabs if capsules not available or too expensive for the patient predniSONE 20 MG 3 tabs x 3 days, 2 tabs x 3 days, 1 tab x 3 days Orally Once a day for 9 days 06/22/2024 Next Appt Details Provider Name:Carlyle Copeland, 12/13/2024 10:00:00 AM, [address] [place], [address], Progress Notes * Corby GALVANTianna:1950 (73 yo F)Acc No.[id number]:06/22/2024 Patient: Parisa JACKSON :1950 A ge:73 Y S ex:Female Address:[address] [place] [place] [address], [id number] * Refills Start predniSONE Tablet, 20 MG, Orally, 18, 3 tabs x 3 days, 2 tabs x 3 days, 1 tab x 3 days, Once a day, 9 days, Refills=0 Start Doxycycline Hyclate Capsule, 100 MG, Orally, 14 Capsule, 1 capsule, BID, 7 days, Refills=0 Subjective: * Chief Complaints: * S ick * Medical History: * Surgical History: * Hospitalization/Major Diagno stic Procedure: * Medications: Objective: * Vitals: * Physical Examination: Assessment: * Assessment: 1. A cute bronchitis, unspecified - J20.9 (Primary) Plan: * Treatment: * Procedure Codes: * true * Date: Generated for Zeny drake/Lyle/Lidiaitting on: 0 12/07/2024 08:32 AM EDT
--- OUTSIDE RECORDS SUMMARY | 2024-12-07 08:31 | XMS_ITS | Patient Health Record ---
Author Organization [facility] in [place] Address [address] [place] [address] Care Team Providers Care Sanitation Inspector Name Role Phone Melo Nieto DO Primary Care Provider Unavailab ayala MinCarlyle Unavailable [phone] Allergies Allergen (clinical drug ingredient) Drug/Non Drug Allergy documented on EMR Reaction Allergy Type Onset Date Status Vicodin itching Drug Allergy Active bupropion Bupropion anxiety/depressi on Drug Allergy Active Reason For Referral No Information Medications Medication SIG (Take, Route, Frequency, Duration) Notes Start Date End Date Status Ventolin HFA 108 (90 Base) MCG/ACT 2 puffs as needed for SOB Inhalation every 4 hrs for 90 days Active Trelegy Ellipta 100-62.5-25 MCG/ACT 1 puff Inhalation Once a day for 90 days Rinse after use Active Doxycycline Hyclate 100 MG 1 capsule Orally BID for 7 days Can dispense doxycycline 100mg tabs if capsules not available or too expensive for the patient 06/22/2024 Active predniSONE 20 MG 3 tabs x 3 days, 2 tabs x 3 days, 1 tab x 3 days Orally Once a day for 9 days 06/22/2024 Active Etodolac 500 MG 1 tablet with food Orally Twice a day Active Furosemide 20 MG 1 tablet Orally Once a day Active Hydroxychloroquine Sulfate 200 MG as directed Orally Active Atorvastatin Calcium 10 MG 1 tablet Orally Once a day Active Ibandronate Sodium 150 MG 1 tablet 60 minutes before the first food, beverage or medicine of the day with plain water Orally Active Pantoprazole Sodium 40 MG 1 tablet Orall y Once a day Active Ipratropium Moultrie 0.03 % 2 sprays in each nostril as needed for congestion Nasally Twice a day for 90 days Active Potassium Chloride ER 10 MEQ 1 tablet with food Orally Twice a day Active Immunizations Vaccine Route Administration Date Status Comme nts SARS-COV-2 (COVID 19 Pfizer 30mcg/0.3mL) Unknown 04/20/2021 Administered Social History Tobacco Use: Social History Observation [...] Problem Status W/U Status Risk Notes Problem 963814909 Obesity, unspecified (E66.9) Active confirmed Problem Inflammatory polyarthropathy (040955140) 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) Active confirmed Problem Long-term current use of inhaled steroid (366807736) general practice (current) use of inhaled steroids (Z79.51) Active confirmed Problem Chronic obstructive pulmonary disease (28712328) Chronic obstructive pulmonary disease (J44.9) Active confirmed Problem Allergic rhinitis (67430831) Allergic rhinitis (J30.9) Active confirmed Problem 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) Cigarette nicotine dependence with nicotine-induced disorder (F17.219) Active confirmed Problem Bronchiectasis (40700106) Bronchiectasis (J47.9) Active confirmed Problem Multiple pulmonary nodules (657059705) Multiple pulmonary nodules (R91.8) Active confirmed Problem Postinflammatory pulmonary fibrosis (074826654) 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) Active confirmed Problem Gbfxy-9-phumckefej n deficiency (23921321) 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) Active confirmed Genotype IA Problem T8 vertebral fracture (S22.069A) Active confirmed Problem Body mass index 30.00 to 34.99 (576991377974580) Body mass index [BMI] 31.0-31.9, adult (Z68.31) Active confirmed Vital Signs Heart Rate 77 /min 12/09/2023 Temperature 96.9 degrees Fahrenheit 12/09/2023 Respiratory Rate 18 /min 12/09/2023 Blood pressure diastolic 74 mm Hg 12/09/2023 Oximetry 98 % 12/09/2023 Height 62.75 in 12/09/2023 Blood pressure systolic 117 mm Hg 12/09/2023 Weight 176.6 lbs 12/09/2023 BMI 31.53 kg/m2 12/09/2023 Encounters Encounter Location Date Provider Diagnosis [facility] [address] [place] [address] 06/22/2024 Carlyle Kohli Acute bronchitis, unspecified J20.9 [facility] [address] [place] [address] 12/09/2023 Carlyle Copeland Chronic obstructive pulmonary disease J44.9 ; Bronchiectasis J47.9 ; 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 ; Multiple pulmonary nodules R91.8 ; Allergic rhinitis J30.9 ; Heterozygous alpha 1-antitrypsin deficiency E88.01 ; Cigarette nicotine dependence with nicotine-induced disorder F17.219 ; Inflammatory polyarthropathy M06.4 ; [facility] (current) use of inhaled steroids Z79.51 ; [...] any significant coughing symptoms at this time. 06/22/2024 Acute bronchitis, unspecified (ICD-10 - J20.9) 12/09/2023 Postinflammatory pulmonary fibrosis (ICD-10 - J84.10) [...] alpha 1-antitrypsin deficiency (ICD-10 - E88.01) Genotype IA Patient has variant alpha1-antitrypsin phenotype IA. This in itself typically will not cause [...] On Plaquenil. F/U with Dr. Mcdaniel. 12/09/2023 general practice (current) use of inhaled steroids (ICD-10 - [...] adult (ICD-10 - Z68.31) Plan Of Treatment Future Test Test Name Order Date CT Chest Low Dose for Screening* 025 Next Appt Details Provider Name:Carlyle Copeland, 12/13/2024 10:00:00 AM, [address] [place], [address], Insurance Providers Payer Name Payer Address Payer Phone Subscriber Number Group Number Insured Name Patient Relationship to Insured Coverage Start Date Coverage End Date [facility] [employer] [address] [address] [place] [address] [id number] NamitaGenie drewlynn Self - patient is the insured 3 Medical (General) History Medical History History ICD Code Chronic obstructive pulmonary disease J4 4.9 Bronchiectasis J47.9 Multiple pulmonary nodules R91.8 Postinflammatory pulmonary fibrosis J84. 10 Inflammatory polyarthropathy M06.4 Heterozygous alpha 1-antitrypsin deficie ncy E88.01 Allergic rhinitis J30.9 T8 vertebral fracture S22.069A general practice (current) use of inhaled stero ids Z79.51 Cigarette nicotine dependence with nicot ine-induced disorder F17.219 Surgical History Surgery Date(Month/Year) foot surgery-right arthroscopy shoulder-left cataract removal neck surgery vein ligation hysterectomy
--- OUTSIDE RECORDS SUMMARY | 2024-12-07 08:31 | XMS_ITS | Clinical Summary ---
Author Organization [facility] Address [address] [place] [address] Care Team Providers Care Station Gateman Name Role Phone Melo Nieto MD Primary Care Provider [phone] Allergies Active Allergy Reactions Criticality Noted Date Comments Hydrocodone-Acetaminophen Rash Low 05/07/2023 Tramadol GI intolerance 05/07/2023 Bupropion Anxiety Low 05/07/2023 Medications Cranberry 425 MG capsule Take 1 capsule by mouth in the morning. Active Acetaminophen (TYLENOL ARTHRITIS PAIN PO) Tylenol Arthritis Pain Active albuterol HFA (Ventolin HFA) 90 mcg/act inhaler Inhale 1 puff every 4 (four) hours. Active Fluticasone-Ume clidin-Vilant (TRELEGY ELLIPTA IN) Inhale 1 puff 1 (one) time each day at the same time. Active potassium chloride (Klor-Con) 20 MEQ packet Take 10 mEq by mouth in the morning. Active pantoprazole (ProtoNix) 40 MG EC tablet Take 40 mg by mouth in the morning. Take before meals. Active hydroxychloroqu ine (Plaquenil) 200 MG tablet Take 200 mg by mouth in the morning and 200 mg before bedtime. Active furosemide (Lasix) 20 MG tablet Take 20 mg by mouth 1 (one) time each day at the same time. Active etodolac (Lodine) 500 MG tablet Take 500 mg by mouth every 12 (twelve) hours. Active Calcium Carbonate-Vit D-Min (Calcium 600+D3 Plus Minerals) 600-800 MG-UNIT chewable tablet Chew 1 tablet 1 (one) time each day at the same time. Active atorvastatin (Lipitor) 10 MG tablet Take 10 mg by mouth 1 (one) time each day at the same time. Active ipratropium (Atrovent) 0.03 % nasal spray Administer 2 sprays into each nostril in the morning and 2 sprays before bedtime. Active ibandronate (Boniva) 150 MG tablet Take 150 mg by mouth every 30 (thirty) days. Take in morning with full glass of water on an empty stomach. No food, drink, meds, or lying down for 60 minutes after. Active Ascorbic Acid (Vitamin C) 500 MG capsule Take 1 capsule by mouth in the morning. Active cyanocobalamin (Vitamin B-12) 1000 MCG tablet Take 1,000 mcg by mouth every other day. Active Active Problems Problem Noted Date Diagnosed Date Hallux valgus (acquired), left foot 05/07/2023 Pain in limb 05/07/2023 Palpitations 05/07/2023 Varicose veins of both legs with edema 3 Osteoporosis 05/07/2023 Arthropathy 01/01/2010 Myopia 01/01/2010 Family History Medical History Relation Name Comments Asthma Father Heart failure Father Diabetes Maternal Grandfather Cancer Maternal Grandmother Cancer Mother Heart failure Mother Dementia Other Spouse Relation Name Status Comments Father Maternal Grandfather Maternal Grandmother Mother Other Spouse Social History Tobacco Use Types Packs/Day Years Used Date Smoking Tobacco: Every Day Cigarettes Smokeless Tobacco: Never Tobacco Cessation:Ready to Q uit: No; Counseling Given: Not Answered Alcohol Use Standard Drinks/Week Comments Not Currently 0 (1 standard drink = 0.6 oz pure alcohol) caffeine intake: 3-4 cups per day of coffee AUDIT-C Answer Date Recorded Q1: How often do you have a drink containing alc ohol? Monthly or less 05/10/2023 Q2: How many drinks containi ng alcohol do you have on a typical day when you are drinking? 1 or 2 05/10/2023 Q3: How often do you have si x or more drinks on one occasion? Monthly 05/10/2023 Comments Unknown Sex and Gender Information Value Date Recorded Sex Assigned at Not on file Legal Sex Female 7:19 PM EDT Gender Identity Not on file Sexual Orientation Not on file Last Filed Vital Signs Vital Sign Reading Time Taken Comments Blood Pressure 109/67 05/11/2023 10:48 AM EST Pulse - - Temperature - - Respiratory Rate - - Oxygen Saturation - - Inhaled Oxygen Concentration - - Weight 80.3 kg (177 lb) 05/11/2023 10:48 AM EST Height 161.3 cm (5' 3.5 ) 05/11/2023 10:48 AM ES T Body Mass Index 30.86 05/11/2023 10:48 AM EST Plan of Treatment Health Maintenance Due Date Last Done Comments CT Colonography 1952 FIT-DNA 1952 FIT 1950 FOBT 1950 Sigmoidoscopy 1950 Mammogram 1992 Pneumococcal Vaccine: 65+ Years (1 of 1 - PCV) 003 Influenza Vaccine (Season Ended) 2025 Colonoscopy 06/09/2028 06/09/2018 Colorectal Cancer Screening 06/09/2028 Insurance [employer] MEDICARE Care Teams Station Gateman Relationship Specialty Start Date End Date Melo Nieto MD [address] [place] [address] [place] [address] [place] [address] PCP - General Family Medicine 05/06/23
--- OUTSIDE RECORDS SUMMARY | 2024-12-07 08:31 | XMS_ITS | Referral Summary ---
Author Organization [facility] Address [address] [place] [address] Care Team Providers Care Software Systems Analyst Name Role Phone Unavailable Primary Care Provider Unavailabl e Social History Tobacco Use Types Packs/Day Years Used Date Smoking Tobacco: Never Assessed Sex and Gender Information Value Date Recorded Sex Assigned at Not on file Gender Identity Not on file Sexual Orientation Not on file Plan of Treatment Not on file
--- OUTSIDE RECORDS SUMMARY | 2024-12-07 08:31 | XMS_ITS | Clinical Summary ---
Author Organization [facility] Address [address] [place] [address] Care Team Providers Care Bi Architect Name Role Phone Unavailable Primary Care Provider Unavailabl e Social History Tobacco Use Types Packs/Day Years Used Date Smoking Tobacco: Never Assessed Sex and Gender Information Value Date Recorded Sex Assigned at Not on file Gender Identity Not on file Sexual Orientation Not on file Plan of Treatment Not on file
--- NOTE | 2024-12-07 08:32 | CT_ITS ---
The [address] [address] Patient Name: GENNA GALVAN MRN: [id number] date: 1950 Sex: F Assigned Patient Location: CT Current Patient Location: CT Accession/Order Number: [id number] Exam Date: 12/07/2024 09:38 Report Date: 12/07/2024 09:55 At the request of: CHRISSY VENEGAS DO Procedure: CT lung screening low-dose LOW-DOSE SCREENING CHEST CT WITHOUT CONTRAST COMPARISON: 12/04/2023 CLINICAL DATA: Current smoker for approximately 40 years. Spiral axial unenhanced low-dose images were obtained through the chest. Images were reviewed using both narrow and wide window settings. This CT exam was performed using one or more following dose reduction techniques: Automated exposure control, adjustment of the mA and/or kV according to patient size, or use of iterative reconstruction technique. The heart is top normal in size. There is no pericardial effusion. Coronary artery disease is visualized. The ascending aorta is mildly dilated measuring just over 4 cm in diameter. There is minor plaque at the aortic arch, descending aorta and proximal great vessels. The bony structures are osteopenic. There is mild degenerative change. A similar mid thoracic compression fracture is seen. A cervical fusion plate is present. There is obstructive lung disease with airspace lucencies and subpleural blebs. Similar associated interstitial thickening is again noted. There is also mild basilar atelectasis and/or scarring. No developing consolidation, pleural effusion or pneumothorax is seen. There are similar calcified and noncalcified pulmonary nodules. The largest are at the right middle lobe (axial image 111) and lingula (axial image 103). No new pulmonary nodularity is seen. A focus of thickening is again visualized along the minor fissure. Limited cuts through the upper abdomen show no contributory findings. CT/CT lung screening low-dose IMPRESSION: OBSTRUCTIVE AND INTERSTITIAL LUNG DISEASE. STABLE PULMONARY NODULARITY. Lung RADS category 2 - benign Twelve-month low-dose CT follow-up is suggested Impression dictated by: Lita Cunningham M.D. 12/07/2024 9:55 AM Dictation Location: [place] [address] Electronically authenticated by: [id number] Y Date: 12/07/2024 09:55
== END 2024-12-07 08:31 | disposition home or self-care (01) ==
LOC: CT 08:30
PROVIDERS: PCP Family Medicine; Visit Provider Internal Medicine
DX: F17.219 Nicotine dependence, cigarettes, with unspecified nicotine-induced disorders (principal); Z12.2 Encounter for screening for malignant neoplasm of respiratory organs; J44.9 Chronic obstructive pulmonary disease, unspecified; J84.9 Interstitial pulmonary disease, unspecified
CPT/HCPCS: 71271

== ENCOUNTER 2025-02-03 10:12 | Emergency (ER) | payer MEDICARE, SELFPAY ==
[2025-02-03 10:16] VITALS: BP 131/91; PULSE 97; TEMP 36.8; O2SAT 97; BMI 26.6
--- NOTE | 2025-02-03 10:30 | ED.GENADUL1 ---
HPI HPI - General Adult General Chief complaint: Skin/Abscess/Foreign Body Stated complaint: CAT SCRATCH; R HAND Time Seen by Provider: 02/03/25 10:26 Source: patient Mode of arrival: walk-in Limitations: no limitations History of Present Illness HPI narrative: 80-year-old female presents for cat bite. This occurred 3 days ago and now the dorsum of her hand is somewhat red and somewhat swollen. It has been 7 years since she has had a tetanus shot. No other injury was sustained. Related Data Home Medications ?Medication ?Instructions ?Recorded ?Confirmed albuterol sulfate 90 mcg/actuation 2 puff inhalation Q4H PRN 03/29/24 02/03/25 aerosol inhaler shortness of breath or wheezing atorvastatin 10 mg tablet 10 mg PO DAILY 03/29/24 03/29/24 cyanocobalamin (vitamin B-12) 1,000 mcg PO .QOD 03/29/24 02/03/25 1,000 mcg tablet etodolac 500 mg tablet 500 mg PO Q12H 03/29/24 02/03/25 fluticasone fur. 100 mcg-umeclid 1 inh inhalation DAILY 03/29/24 02/03/25 62.5 mcg-vilant 25 mcg inhalat.powder (Trelegy Ellipta) furosemide 20 mg tablet 20 mg PO DAILY 03/29/24 02/03/25 hydroxychloroquine 200 mg tablet 200 mg PO Q12H 03/29/24 02/03/25 ibandronate 150 mg tablet 150 mg PO .monthly 03/29/24 02/03/25 pantoprazole 40 mg tablet,delayed 40 mg PO DAILY 03/29/24 02/03/25 release potassium chloride 10 mEq 10 meq PO DAILY 03/29/24 02/03/25 tablet,extended release Previous Rx's ?Medication ?Instructions ?Recorded famotidine 20 mg tablet (Pepcid) 20 mg PO BID #20 tabs 03/29/24 amoxicillin 875 mg-potassium 1 tab PO BID #14 tabs 02/03/25 clavulanate 125 mg tablet Allergies Allergy/AdvReac Type Severity Reaction Status Date / Time No Known Drug Allergies Allergy Verified 02/03/25 10:19 Opioid HPI Opioid Management Most Recent Opioid Data: Last Pain Scale 4 Today, 10:24 Review of Systems ROS Narrative A ten point review of systems is negative except as noted above. PFSH PFSH Social History Little interest or pleasure in doing things: not at all Feeling down, depressed, or hopeless: not at all Exam Narrative Exam Narrative: Nurses note and vital signs reviewed and patient is not hypoxic. General: The patient appears well and in no apparent distress. Patient is resting comfortably on cart. Skin: Warm, dry, no pallor noted. There is no rash noted. Head: Normocephalic, atraumatic Eye: Normal conjunctiva, no drainage Ears, Nose, Mouth, and Throat: oral mucosa is moist. Nares patent. Cardiovascular: Regular Rate and Rhythm Respiratory: Patient is in no distress, no accessory muscle use Back: non-tender GI: Normal bowel sounds, no tenderness to palpation, no masses appreciated. No rebound, guarding, or rigidity noted. Musculoskeletal: On the dorsum of the right hand there are several tiny puncture hutchinson. Dorsum of the hand is erythematous. There is no lymphangitis and fingers have full range of motion. No erythema on the palm of her hand. Neurological: A&O, normal speech Psychiatric: Cooperative Constitutional Vital Signs, click to edit/add: Last Vital Signs Temp 98.2 F 02/03/25 10:16 Pulse 97 H 02/03/25 10:16 Resp 16 02/03/25 10:16 BP 131/91 02/03/25 10:16 Pulse Ox 97 02/03/25 10:16 O2 Del Method Room Air 02/03/25 10:16 Course Vital Signs Vital signs: Vital Signs Temperature 98.2 F 02/03/25 10:16 Pulse Rate 97 H 02/03/25 10:16 Respiratory Rate 16 02/03/25 10:16 Blood Pressure 131/91 02/03/25 10:16 Pulse Oximetry 97 02/03/25 10:16 Oxygen Delivery Method Room Air 02/03/25 10:16 Temperature 98.2 F 02/03/25 10:16 Pulse Rate 97 H 02/03/25 10:16 Respiratory Rate 16 02/03/25 10:16 Blood Pressure 131/91 02/03/25 10:16 Pulse Oximetry 97 02/03/25 10:16 Oxygen Delivery Method Room Air 02/03/25 10:16 Medical Decision Making MDM Narrative Medical decision making narrative: Tetanus is updated and she was prescribed Augmentin. Treatment diagnosis and follow-up were discussed with the patient. Differential Diagnosis Differential Diagnosis: Cat bite, cellulitis Discharge Plan Discharge Chief Complaint: Skin/Abscess/Foreign Body Clinical Impression: Bite from cat Patient Disposition: Home, Self-Care Time of Disposition Decision: 10:30 Condition: Good Mode of Transportation: Private Vehicle Prescriptions / Home Meds: New amoxicillin-pot clavulanate 875-125 mg tablet 1 tab PO BID Qty: 14 0RF No Action ibandronate 150 mg tablet 150 mg PO .monthly hydroxychloroquine 200 mg tablet 200 mg PO Q12H etodolac 500 mg tablet 500 mg PO Q12H furosemide 20 mg tablet 20 mg PO DAILY potassium chloride 10 mEq tablet extended release 10 meq PO DAILY Trelegy Ellipta 100-62.5-25 mcg blister with device 1 inh inhalation DAILY atorvastatin 10 mg tablet 10 mg PO DAILY albuterol sulfate 90 mcg/actuation HFA aerosol inhaler 2 puff INHALATION Q4H PRN (Reason: shortness of breath or wheezing) cyanocobalamin (vitamin B-12) 1,000 mcg tablet 1,000 mcg PO .QOD pantoprazole 40 mg tablet,delayed release (DR/EC) 40 mg PO DAILY famotidine [Pepcid] 20 mg tablet 20 mg PO BID Qty: 20 0RF Print Language: Albanian Instructions: Animal Bite (ED) Referrals: CASANDRA CHOPRA [Primary Care Provider, Family Practice] - 1 week
[2025-02-03] MEDS: DIPHTH,PERTUSS(ACELL),TET VAC 0.5 ML SYRINGE IM (10:44)
== END 2025-02-03 10:50 | disposition home or self-care (01) ==
PROVIDERS: Emergency Provider Emergency Medicine; PCP Family Medicine
DX: S61.431A Puncture wound without foreign body of right hand, initial encounter (principal); W55.01XA Bitten by cat, initial encounter; Z23 Encounter for immunization
CPT/HCPCS: 90471; 99283

== ENCOUNTER 2025-04-13 11:42 | Outpatient (OUT) | payer MEDICARE, SELFPAY ==
--- NOTE | 2025-04-13 | XR_ITS ---
[place] [id number] Patient Name: GENNA GALVAN MRN: [id number] date: 1950 Sex: F Assigned Patient Location: [facility] Current Patient Location: [facility] Accession/Order Number: [id number] Exam Date: 04/13/2025 11:55 Report Date: 04/13/2025 15:25 At the request of: JUNI RIVERA DO Procedure: XR knee LT 2V BILATERAL KNEE - 4 views right 2 views left CLINICAL HISTORY: M17.11 UNLIATERAL PRIMARY OSTEOARTHITIS RIGHT KNEE COMPARISON: None FINDINGS: Right knee demonstrates small knee joint effusion. No acute bony process. Minimal degenerative change. Joint spaces appear maintained. Left knee demonstrates no acute bony process. Joint spaces appear maintained. XR/XR knee RT 4V IMPRESSION: MINIMAL DEGENERATIVE CHANGES INVOLVING THE RIGHT KNEE WITH SMALL JOINT EFFUSION. Impression dictated by: Theodore [place] Jr., DMikeOMike 04/13/2025 3:25 PM Dictation Location: [place] [address] Electronically authenticated by: [id number] Y Date: 04/13/2025 15:25
--- NOTE | 2025-04-13 | XR_ITS ---
[place] [id number] Patient Name: GENNA GALVAN MRN: [id number] date: 1950 Sex: F Assigned Patient Location: [facility] Current Patient Location: [facility] Accession/Order Number: [id number] Exam Date: 04/13/2025 11:55 Report Date: 04/13/2025 15:25 At the request of: JUNI RIVERA DO Procedure: XR knee LT 2V BILATERAL KNEE - 4 views right 2 views left CLINICAL HISTORY: M17.11 UNLIATERAL PRIMARY OSTEOARTHITIS RIGHT KNEE COMPARISON: None FINDINGS: Right knee demonstrates small knee joint effusion. No acute bony process. Minimal degenerative change. Joint spaces appear maintained. Left knee demonstrates no acute bony process. Joint spaces appear maintained. XR/XR knee LT 2V IMPRESSION: MINIMAL DEGENERATIVE CHANGES INVOLVING THE RIGHT KNEE WITH SMALL JOINT EFFUSION. Impression dictated by: Theodore [place] Jr., DMikeOMike 04/13/2025 3:25 PM Dictation Location: [place] [address] Electronically authenticated by: [id number] Y Date: 04/13/2025 15:25
--- OUTSIDE RECORDS SUMMARY | 2025-04-13 11:47 | XMS_ITS | CCD ---
Author Organization [facility] CliniSyil Care Team Providers Care Die Holder Name Role Phone Casandra Chopra Unavailable Casandra Chopra Primary Care Physician [phone] NAV, DR GUAJARDO Consulting Unavailable GIRLEONCIO, DR GUAJARDO Attending Unavailable GIRVIN, DR GUAJARDO [...] Consulting Unavailable SAMSA ., CHRISSY Consulting Unavailable GIRLEONCIO, DR GUAJARDO Primary Care Unavailable DANY, MARSHALL Attending Unavailable DANY, MARSHALL Admitting Unavailable MISC, DR CUMMINS Consulting Unavailable GIRVIN, DR GUAJARDO Consulting Unavailable GIRVIN, DR GUAJARDO Attending Unavailable GIRVIN, DR GUAJARDO Admitting Unavailable GIRVIN, DR GUAJARDO Primary Care Unavailable GIRLEONCIO, DR GUAJARDO Consulting Unavailable GIRLEONCIO, DR GUAJARDO Attending Unavailable GIRLEONCIO, DR GUAJARDO Admitting Unavailable GIRVIN, DR GUAJARDO Primary Care Unavailable GIRVIN, DR GUAJARDO Consulting Unavailable GIRVIN, DR GUAJARDO Attending Unavailable GIRVIN, DR GUAJARDO Admitting Unavailable GIRVIN, DR GUAJARDO Primary Care Unavailable WEST, DR CASANDRA Mccall Consulting Unavailable RAY, DR COY Admitting Unavailable BELL, DR COY Consulting Unavailable BELL, DR COY Attending Unavailable Germaine Manuel Unavailable DO Josiah Samuel Primary Care Provider HESHAM Manuel-C Germaine Attending Provider AbhijitEva schuster Unavailable DO Casandra Chopra Attending Provider NO FAMILY, PHYSICIAN Primary Care Provider Unava ilable DO Domingo George Attending Provider [phone] DO Casandra Chopra Primary Care Provider SENIA Gómez Emergency Provider NO FAMILY, PHYSICIAN Primary Care Provider Unava ilable Domingo George DO Attending Provider Casandra Chopra DO Primary Care Provider [phone] Sabrina Gómez APRN Emergency Provider [phone] Casandra Chopra DO Attending Provider Casandra Chopra DO Primary Care Provider [phone] Domingo George DO Attending Provider [phone] Misael Marcum MD Attending Provider Natalee Camarillo MD Attending Provider Casandra Chopra DO Attending Provider Natalee Camarillo MD Attending Provider Natalee Camarillo MD Attending Provider Casandra Chopra DO Primary Care Provider Misael Marcum MD Other Provider Natalee Camarillo MD Attending Provider [phone] Linda GUARD SUPERVISOR-C, Karlee Kohler Attending Provider Al Ayala APRN Attending Provider Casandra Chopra DO Primary Care Provider [phone] NO FAMILY, PHYSICIAN Primary Care Unavailable Casandra Chopra Attending Unavailable Casandra Chopra Admitting Unavailable NO FAMILY, PHYSICIAN Primary Care Unavailable Domingo George Admitting Unavailable Domingo George Attending Unavailable Casandra Chopra Primary Care Unavailable Domingo George Admitting Unavailable Domingo George Attending Unavailable Casandra Chopra Primary Care Unavailable Casandra Chopra Attending Unavailable Casandra Chopra Admitting Unavailable Casandra Chopra Primary Care Unavailable Domingo George Admitting Unavailable Domingo George Attending Unavailable Casandra Chopra Primary Care Unavailable Misael Marcum Admitting Unavailable Misael Marcum Attending Unavailable Sabrina Gómez Admitting Unavailable Sabrina Gómez Attending Unavailable Casandra Chopra Primary Care Unavailable Casandra Chopra Attending Unavailable Cas[facility] Primary Care Unavailable Natalee Camarillo Admitting Unavailable Natalee Camarillo Attending Unavailable Casandra Chopra Primary Care Unavailable ObKarlee dia Admitting Unavailable ObKarlee dia Attending Unavailable Allergies Allergy Classification Reported Allergen(s) Allergy Type Date of Onset Reaction(s) Facility (20 sources) buPROPion; Translations: [Bupropion] Drug Allergy Anxiety (finding) Predictry Other (20 sources) traMADol Drug Allergy 02-16-20 24 constipation [facility] (1 source) Acetaminophen / HYDROcodone Drug Allergy [facility] Repository (20 sources) buPROPion; Translations: [bupropion] Drug Allergy 02-16-20 made anxiety worse was prescribed by Dr. Venegas [facility] (15 sources) azaTHIOprine; Translations: [azathioprine] Drug Allergy 04-19-20 Gastrointestinal Upset [facility] (15 sources) Sulfamethizole; Translations: [sulfamethizole] Drug Allergy 04-19-20 Abdominal Pain [facility] (1 source) traMADol Drug Allergy 11-15-19 [facility] Repository Medications Current Medications Medication Drug Class(es) Dates Sig (Normalized) Sig (Original) 8 hr acetaminophen 650 mg extended release oral tablet (20 sources) Start: 11-03-2023 take 2 tablets by mo uth every eight hours as needed Tylenol 8 Hour Arthritis Pain 650 MG 2 tablets as needed Orally every 8 hrs Active ascorbic acid 500 mg oral tablet (20 sources) Vitamin C Start: 11-03-2023 End: 11-14-2024 take 1 g by mouth once daily take 1 tablet by mouth every twe nty-four hours take 1 tablet by mouth every twe lve hours Calcium (7 sources) Phosphate Binder, Calcium Start: 11-14-2024 calc ium 1,200 mg capsule Active PO Twice daily November 14, 2024 12:00am Complies with drug therapy Start: 11-14-2024 Start: 11-14-2024 calcium 1,200 mg capsule Active PO Twice daily November 14, 2024 12:00am Calcium Active Calcium 1200+D3 600-40-500 M G-MG-UNIT (10 [...] tablet Orally Once a day Sep, Active docusate sodium 100 mg oral capsule (20 sources) Start: 11-14-2024 take 1 capsule by mouth once daily Start: 11-04-2023 End: 09-27-2024 take 1 capsule by mouth once daily Docusate Sodium 100 mg capsule Discontin ued 1 CAP PO .3x week November 04, 2023 12:00am September 27, 2024 12:13pm FreeTextSi capsule Orally Once a day; Note: Source Status: Not-TakingundefinedPRNprn; Provider: Nav Butler Start: 09-19-2019 take 1 capsule by mo [facility] every twenty-four hours Colace 100 MG 1 capsule Orally Once a da y prn Sep, Not-Taking etodolac 500 mg oral tablet (20 sources) Nonsteroidal Anti-inflammatory Drug Start: 04-06-2024 take 1 tablet by mouth twice daily Start: 11-04-2023 End: 04-06-2024 take 1 tablet by mouth twice daily Etodolac 400 mg tablet Discontinued 400 MG PO Twice daily November 04, 2023 12:00am April 06, 2024 8:21am Start: 06-20-2019 Etodolac 400 M G 1 tablet Orally bid - Dr. Bell Jun, Active Lrnnwrxnxxs-Tkcxrvrzd-Cjgyjd er (20 sources) Anticholinergic, Corticosteroid, beta2-Adrenergic Agonist Start: 02-23-2024 Caorbinrucg-Inffbaanu-Orqwbs er (Trelegy Ellipta) 100-62.5-25 mcg blister with device Active 1 INH INHALATION Daily February 23, 2024 12:00am Complies with drug therapy Start: 02-23-2024 Start: 02-23-2024 Fluticasone-Um eclidin-Vilanter (Trelegy Ellipta) 100-62.5-25 mcg blister with device Active 1 INH INHALATION Daily February 22, 2024 11:00pm Start: 02-23-2024 Fluticasone-Um eclidin-Vilanter (Trelegy Ellipta) 100-62.5-25 mcg blister with device Active 1 INH INHALATION Daily February 23, 2024 12:00am Start: 11-03-2023 End: 04-06-2024 Oqpmescqbde-Ynghhmymu-Dznrwn er (Trelegy Ellipta) 100-62.5-25 mcg blister with device Discontinued 1 INH INHALATION Daily November 02, 2023 11:00pm April 06, 2024 7:25am Start: 11-03-2023 End: 04-06-2024 Rjqtljkmaxl-Cdxphnzot-Nfxrqo er (Trelegy Ellipta) 100-62.5-25 mcg blister with device Discontinued 1 INH INHALATION Daily November 03, 2023 12:00am April 06, 2024 8:25am Start: 11-03-2023 Fluticasone-Um eclidin-Vilanter (Trelegy Ellipta) 100-62.5-25 mcg blister with device Active 1 INH INHALATION Daily November 03, 2023 12:00am furosemide 20 mg oral tablet (20 sources) Loop Diuretic Start: 07-14-2024 End: 12-26-2024 take 1 tablet by mouth once daily in the morning Start: 04-06-2024 End: 07-14-2024 take 1 tablet by mouth once daily Furosemide 20 mg tablet Discontinued 20 MG PO Daily April 06, 2024 12:00am July 14, 2024 11:12am Start: 02-16-2024 End: 02-23-2024 take 1 tablet by mouth once daily in the morning Furosemide 20 mg tablet Discontinued 20 MG PO .COMPLEX February 16, 2024 10:07am February 23, 2024 8:33am 20 mg orally TAKE 1 TABLET BY MOUTH ONCE EVERY MORNING; Start: 01-18-2024 End: 02-16-2024 take 1 tablet by mouth once daily in the morning Furosemide 20 mg tablet Discontinued 0 .ROUTE .COMPLEX January 18, 2024 11:07am February 16, 2024 10:07am TAKE 1 TABLET BY MOUTH ONCE EVERY MORNING Start: 11-03-2023 End: 01-18-2024 take 1 tablet by mouth once daily in the morning Furosemide 20 mg tablet Discontinued 20 MG PO Every morning November 03, 2023 12:00am January 18, 2024 11:07am Start: 01-30-2022 take 1 tablet by trevor th once daily Lasix 20 mg Tab 20 mg = 1 tab(s), Oral, Daily, Refills(s) 0 Start Date: 01/30/22 Status: Ordered hydroxychloroquine sulfate 200 mg oral tablet (20 sources) Antimalarial, Antirheumatic Agent Start: 11-03-2023 take 1 tablet by mouth twice daily Start: 01-30-2022 hydroxychloroq uine 200 mg Tab Refills(s) 0 Start Date: 01/30/22 Status: Ordered ipratropium bromide 0.021 mg /actuat metered dose nasal spray (20 sources) Anticholinergic Start: 11-03-2023 End: 11-04-2023 Start: 01-30-2022 ipratropium na jazmine 0.03% spray 2 spray(s), Nasal, BID, Refill(s) 0 Start Date: 01/30/22 Status: Ordered take 2 spray(s) nasa l route twice daily Ipratropium [place] 0.03 % 2 sprays in each nostril Nasally Twice a day Active Sd-Bhx-Fetiy-Calcium Carb-K1 (Women's 50 Plus Multivitamin) 400 mcg-500 mg calcium-20 mcg tablet (12 sources) Start: 05-16-2024 take 1 tablet by mouth once daily Iz-Fut-Bhetx-Calcium Carb-K1 (Women's 50 Plus Multivitamin) 400 mcg-500 mg calcium-20 mcg tablet Active 1 TAB PO Daily May 16, 2024 1:00am Complies with drug therapy Start: 05-16-2024 take 1 tablet by mouth once da juan Start: 05-16-2024 take 1 tablet by mouth once da juan Ik-Snp-Gyniu-Calcium Carb-K1 (Women's 50 Plus Multivitamin) 400 mcg-500 mg calcium-20 mcg tablet Active 1 TAB PO Daily May 16, 2024 1:00am Start: 05-16-2024 take 1 tablet by mouth once Mv -Hhf-Egvrd-Offnovj Carb-K1 (Women's 50 Plus Multivitamin) 400 mcg-500 mg calcium-20 mcg tablet Active TAB PO May 16, 2024 1:00am Start: 05-16-2024 take 1 tablet by mouth once Mv -Wmj-Janbj-Miuklnj Carb-K1 (Women's 50 Plus Multivitamin) 400 mcg-500 mg calcium-20 mcg tablet Active TAB PO May 16, 2024 12:00am nitrofurantoin, macrocrystals 25 mg / nitrofurantoin, monohydrate 75 mg oral capsule (2 sources) Nitrofuran Antibacterial Start: 04-21-2022 take 1 capsule by mouth twice daily at mealtime Macrobid 100 MG 1 capsule Orally bid with food for 7 day(s) Apr, Active omeprazole 40 mg delayed release oral capsule (8 sources) Proton Pump Inhibitor Start: 10-03-2024 take 1 capsule by mouth once daily potassium chloride 10 meq extended release oral tablet (20 sources) Start: 09-26-2024 take 1 tablet by mouth once daily at mealtime Start: 11-03-2023 End: 09-26-2024 take 1 tablet by mouth once daily Potassium Chloride 10 mEq tablet extended release Discontinued 10 MEQ PO Daily November 03, 2023 4:14pm September 26, 2024 9:56am Start: 10-01-2023 End: 11-03-2023 take 1 tablet by mouth once daily at mealtime Potassium Chloride 10 mEq tablet extended release Discontinued 0 .ROUTE .COMPLEX 90 October 01, 2023 8:57am November 03, 2023 4:16pm TAKE 1 TABLET BY MOUTH EVERYDAY WITH FOOD Start: 10-01-2023 End: 10-01-2023 take 1 tablet by mouth once daily at mealtime Potassium Chloride 10 mEq tablet extended release Discontinued MEQ PO October 01, 2023 12:00am October 01, 2023 8:57am FreeTextSig: TAKE 1 TABLET BY MOUTH EVERYDAY WITH FOOD; Note: Source Status: Taking; Provider: Nav Guajardo ( ) Start: 01-30-2022 take 1 capsule by mo ut once daily potassium chloride 10 mEq Cap-ER [...] Refills(s) 0 Start Date: 01/30/22 Status: Ordered turmeric curcumin 1,500 mg capsule (5 sources) Start: 11-14-2024 turmeric curcumin 1,500 mg capsule Active PO November 14, 2024 12:00am Complies with drug therapy Start: 11-14-2024 Start: 11-14-2024 turmeric curcu min 1,500 mg capsule Active PO November 14, 2024 12:00am Ventolin HFA 90 mcg/inh Aerosol (1 source) Start: 01-30-2022 take 1 puff(s) by inhalation every four hours Ventolin HFA 90 mcg/inh Aerosol 1 puff(s), Inhalation, q4hr Shortness of breath or wheezing, Refill(s) 0 Start Date: 01/30/22 Status: Ordered vitamin b12 1 mg oral tablet (20 sources) Vitamin B12 Start: 04-15-2024 End: 08-30-2024 take 1 tablet by mouth every other day Start: 04-15-2024 End: 04-15-2024 take 1 tablet by mouth every other day Cyanocobalamin (Vitamin B-12) (Vitamin B-12) 1,000 mcg tablet Discontinued 1000 MCG PO .QOD April 15, 2024 12:00am April 15, 2024 10:38am Start: 11-04-2023 End: 02-23-2024 take 1 tablet by mouth every other day Cyanocobalamin (Vitamin B-12) 1,000 mcg tablet Discontinued 1000 MCG PO .qod November 04, 2023 9:03am February 23, 2024 8:28am Start: 11-03-2023 End: 11-04-2023 take 1 tablet by mouth once daily Cyanocobalamin (Vitamin B-12) 1,000 mcg tablet Discontinued 1000 MCG PO Daily November 03, 2023 4:14pm November 04, 2023 9:09am Start: 11-02-2023 End: 11-03-2023 take 1 tablet by mouth every other day Cyanocobalamin (Vitamin B-12) 1,000 mcg tablet Discontinued 0 .ROUTE .COMPLEX November 02, 2023 11:47am November 03, 2023 4:16pm TAKE 1 TABLET BY MOUTH EVERY OTHER DAY Vitamin B12 1000 MCG (4 sources) Start: 05-05-2023 take 1 tablet by trevor th every other day Vitamin B12 1000 MCG 1 tablet Orally qod for 30 days Apr, Active Completed/Discontinued Medications Medication Drug Class(es) Dates Sig (Normalized) Sig (Original) [id number] 200 actuat albuterol 0.09 mg/actuat metered dose inhaler (20 sources) beta2-Adrenergic Agonist Start: 11-03-2023 End: 09-27-2024 take 1 puff(s) by inhalation every four hours as needed for wheezing Albuterol Sulfate (Ventolin Hfa) 90 mcg/actuation HFA aerosol inhaler Discontinued 1 PUFF INHALATION Every 4 hours as needed for shortness of breath or wheezing November 03, 2023 12:00am September 27, 2024 12:14pm take 1 puff(s) by in halation every four hours as needed Ventolin HFA 90 MCG/ACT 1 puff as needed Inhalation every 4 hrs prn Active Albuterol 90 MCG/ACT (2 sources) Albuterol 90 MCG /ACT as directed Inhalation Not-Taking amoxicillin 875 mg / clavulanate 125 mg oral tablet (19 sources) Penicillin-class Antibacterial Start: 12-28-19 End: 02-02-20 take 1 tablet by mouth twice daily Amoxicillin-Pot Clavulanate 875-125 mg tablet Discontinued 1 TAB PO Twice daily December 28, 2023 12:00am February 02, 2024 9:21am atorvastatin 10 mg oral tablet (20 sources) HMG-CoA Reductase Inhibitor Start: 11-03-19 End: 09-28-19 take 1 tablet by mouth once daily Atorvastatin 10 mg tablet Discontinued 10 MG PO Daily November 03, 2023 4:13pm September 27, 2024 12:14pm Start: 11-03-2023 take 1 tablet by trevor th four times daily Atorvastatin 10 mg tablet Active 10 MG PO Daily November 03, 2023 4:13pm On Hold: hold for the next 4 weeks to see if she feels better Start: 09-07-2023 End: 11-03-2023 take 1 tablet by mouth once daily Atorvastatin 10 mg tablet Discontinued 0 .ROUTE .COMPLEX 90 September 07, 2023 12:08pm November 03, 2023 4:16pm TAKE 1 TABLET BY MOUTH EVERY DAY Start: 09-07-2023 End: 09-07-2023 take 1 tablet by mouth once daily Atorvastatin 10 mg tablet Discontinued 1 TAB PO Daily September 07, 2023 1:00am September 07, 2023 12:08pm FreeTextSig: TAKE 1 TABLET BY MOUTH EVERY DAY; Note: Source Status: Taking; Provider: Nav Butler Start: 01-30-2022 take 1 tablet by trevro th once daily atorvastatin 10 mg Tab 10 mg = 1 tab(s), Oral, Daily, Refills(s) 0 Start Date: 01/30/22 Status: Ordered azaTHIOprine 50 mg oral tablet (20 sources) Purine Antimetabolite Start: 04-06-2024 End: 04-06-2024 take 1 tablet by mouth once daily Azathioprine 50 mg tablet Discontinued 50 MG PO Daily April 06, 2024 12:00am April 06, 2024 8:58am Start: 02-02-2024 End: 02-23-2024 take 1 tablet by mouth once daily Azathioprine 50 mg tablet Discontinued 50 MG PO Daily February 02, 2024 12:00am February 23, 2024 8:33am ordered by Dr. Bell B12 (7 sources) Start: 11-02-2023 End: 11-02-2023 take 1 tablet by mouth every other day B12 Discontinued 1 TAB PO .qod November 02, 2023 12:00am November 02, 2023 11:48am B12 1,000 mcg tablet (12 sources) Start: 11-02-2023 End: 11-02-2023 take 1 tablet by mouth every other day B12 1,000 mcg tablet Discontinued 1 TAB PO .qod November 02, 2023 12:00am November 02, 2023 11:48am Start: 11-02-2023 End: 11-02-2023 take 1 tablet by mouth every other day B12 1,000 mcg tablet Discontinued 1 TAB PO .qod November 01, 2023 11:00pm November 02, 2023 10:48am benzonatate 100 mg oral capsule (2 sources) Non-narcotic Antitussive Start: 09-17-2020 take 2 capsules by mouth every eight hours Tessalon Perles 100 MG 2 capsules Orally Three times a day Sep, Not-Taking cranberry preparation 405 mg oral capsule (20 sources) Non-Standardized Food Allergenic Extract, Non-Standardized Plant Allergenic Extract Start: 11-03-2023 End: 09-22-2024 take 1 capsule by mouth once daily Cranberry Extract 405 mg capsule Discontinued 405 MG PO Daily November 03, 2023 12:00am September 22, 2024 10:55am administer with a meal Start: 11-03-2023 take 1 capsule by mo ut once daily Cranberry Extract 405 mg capsule Active 405 MG PO Daily November 03, 2023 12:00am administer with a meal Start: 11-03-2023 take 1 capsule by mo uth once daily Cranberry 405 mg capsule Active 405 MG PO Daily November 02, 2023 11:00pm administer with a meal Start: 11-03-2023 take 405 mg by mouth once aby y Cranberry Active 405 MG PO Daily November 03, 2023 12:00am administer with a meal Cranberry 405 MG as directed Orally Active Cranberry 405 MG as directed Orally Active cyclobenzaprine hydrochloride 10 mg oral tablet (18 sources) Muscle Relaxant Start: 02-23-2024 End: 09-20-2024 take 1 tablet by mouth three times daily Cyclobenzaprine 10 mg tablet Discontinued 10 MG PO Three times daily February 23, 2024 12:00am September 20, 2024 9:02am folic acid 0.4 mg / vitamin b12 0.5 mg oral tablet (18 sources) Vitamin B12 Start: 02-23-2024 End: 11-14-2024 take 1 tablet by mouth once daily Vitamin X81-Zuddt Acid 500-400 mcg tablet Discontinued 1 TAB PO Daily February 23, 2024 12:00am November 14, 2024 9:08am administer with a meal ibandronic acid 150 mg oral tablet (20 sources) Bisphosphonate Start: 11-14-2024 End: 12-30-2024 take 1 tablet by mouth every month Ibandronate 150 mg tablet Discontinued 150 MG PO every month November 14, 2024 12:00am December 30, 2024 10:05am Start: 11-04-2023 Start: 05-05-2022 Ibandronate So dium 150 MG 1 tablet 60 minutes before the first food, beverage or medicine of the day with plain water Orally once a month Apr, Active Ketorolac (17 sources) Nonsteroidal Anti-inflammatory Drug, Cyclooxygenase Inhibitor Start: 11-21-2016 Toradol per 15 mg November, 2 cc lidocaine 0.05 mg/mg medicated patch (20 sources) Antiarrhythmic, Amide Local Anesthetic Start: 11-04-2023 End: 02-16-2024 Lidocaine 5 % adhesive patch,medicated Discontinued 1 PATCH TOPICAL Daily November 04, 2023 12:00am February 16, 2024 9:58am FreeTextSi patch remove after 12 hours Externally Once a day; Note: Source Status: Takingprn; Provider: Mra Chávez Start: 12-29-2022 Lidocaine 5 % 1 patch remove after 12 hours Externally Once a day prn Dec, Active methotrexate 2.5 mg oral tablet (18 sources) Folate Analog Metabolic Inhibitor Start: 02-23-2024 End: 05-16-2024 take 1 tablet by mouth every week Methotrexate Sodium 2.5 mg tablet Discontinued 2.5 MG PO every week February 23, 2024 12:00am May 16, 2024 10:07am methylPREDNISolone 4 mg oral tablet (20 sources) Corticosteroid Start: 02-16-2024 End: 02-23-2024 take 1 tablet by mouth once daily as needed Methylprednisolone (Medrol) 4 mg tablet Discontinued 4 MG PO Daily as needed February 16, 2024 12:00am February 23, 2024 8:32am take 1 tablet by mouth every twe lve hours Medrol 4 MG 1 tablet with food or milk Orally every 12 hrs prn Active ondansetron 4 mg disintegrating oral tablet (20 sources) Serotonin-3 Receptor Antagonist Start: 04-04-2024 End: 09-27-2024 take 1 tablet by mouth three times daily as needed for nausea and vomiting Ondansetron 4 mg tablet,disintegrating Discontinued 4 MG PO Three times daily as needed for nausea and vomiting September 22, 2024 12:00am September 27, 2024 12:13pm pantoprazole 40 mg delayed release oral tablet (20 sources) Proton Pump Inhibitor Start: 02-16-2024 End: 10-03-2024 take 1 tablet by mouth once daily Pantoprazole 40 mg tablet,delayed release (DR/EC) Discontinued 40 MG PO Daily February 16, 2024 10:07am October 03, 2024 1:43pm Start: 02-08-2024 End: 02-16-2024 take 1 tablet by mouth once daily Pantoprazole 40 mg tablet,delayed release (DR/EC) Discontinued 0 .ROUTE .COMPLEX 90 February 08, 2024 8:49am February 16, 2024 10:07am TAKE 1 TABLET BY MOUTH EVERY DAY Start: 11-03-2023 End: 02-08-2024 take 1 tablet by mouth once daily Pantoprazole 40 mg tablet,delayed release (DR/EC) Discontinued 40 MG PO Daily November 03, 2023 12:00am February 08, 2024 8:49am Start: 01-30-2022 take 1 tablet by trevor th once daily Pantoprazole [address] Tab 40 mg = 1 tab(s), Oral, Daily, Refills(s) 0 Start Date: 01/30/22 Status: Ordered sulfamethoxazole 800 mg / trimethoprim 160 mg oral tablet (16 sources) Dihydrofolate Reductase Inhibitor Antibacterial, Sulfonamide Antimicrobial Start: 04-06-2024 End: 04-06-2024 take 1 tablet by mouth once daily Sulfamethoxazole-Trimethoprim 800-160 mg tablet Discontinued TAB PO Daily April 06, 2024 12:00am April 06, 2024 8:45am Problems Active Problems Problem Classification Problem Date Documented Da te Episodic/Chronic Abdominal hernia (20 sources) Obstructed incisional ventral hernia; Translations: [Other [...] Resolved: 2 Chronic Deficiency and other anemia (19 sources) Anemia; Translations: [Anemia, unspecified] 11-04-2023 Episodic Deficiency and other anemia (7 sources) Anemia, unspecified; Translations: [Anemia, unspecified] 02-16-2024 Episodic Diseases of white blood cells (20 sources) Leukocytosis; Translations: [Elevated white blood cell count, unspecified] 04-06-2024 Chronic Disorders of lipid metabolism (20 sources) Hyperlipidemia; Translations: [Hyperlipidemia, unspecified] Onset: 1 Resolved: 2 Chronic Disorders of teeth and jaw (1 source) Jaw pain Episodic Esophageal disorders (20 sources) Gastroesophageal reflux disease; Translations: [Gastro-esophageal reflux disease without esophagitis] 02-04-2022 Chronic Fracture of upper limb (19 sources) Closed fracture of metacarpal bone; Translations: [Unspecified fracture of unspecified metacarpal bone, subsequent encounter for fracture with malunion] Episodic Gastritis and duodenitis (20 sources) Gastritis; Translations: [Gastritis, unspecified, without bleeding] Onset: 1 Resolved: 2 Episodic Headache; including migraine (19 sources) Migraine; Translations: [Migraine, unspecified, not intractable, without status migrainosus] Chronic Malaise and fatigue (20 sources) Fatigue; Translations: [Other fatigue] 02-16-2024 Episodic Osteoarthritis (20 sources) Osteoarthritis; Translations: [Unspecified osteoarthritis, unspecified site] Onset: 3 02-04-2022 Chronic Osteoporosis (5 sources) Age-related osteoporosis without current pathological fracture; Translations: [AGE-REL OSTEOPOR W/O CURR PATH FX] Onset: 2 Chronic Other aftercare (5 sources) Other snf (current) drug therapy; Translations: [Other snf (current) drug therapy Z79.899] Onset: 1 Resolved: 2 Episodic Other aftercare (19 sources) Patient encounter status; Translations: [Other snf (current) drug therapy] 11-04-2023 Episodic Other bone disease and musculoskeletal deformities (1 source) Osteopenia 01-30-2022 Episodic Other connective tissue disease (7 sources) Hand pain; Translations: [Pain in right hand] 09-26-2024 Episodic Other connective tissue disease (14 sources) Tendonitis of right wrist; Translations: [Other enthesopathies, not elsewhere classified] 10-19-2024 Episodic Other connective tissue disease (5 sources) Other enthesopathies, not elsewhere classified; Translations: [Other tenosynovitis of hand and wrist] 10-19-2024 Episodic Other connective tissue disease (10 sources) Pain in right hand; Translations: [Pain in right hand] 09-26-2024 Episodic Other ear and sense organ disorders [...] source) Otalgia, left ear Episodic Other fractures (17 sources) Compression fracture of thoracic spine; Translations: [...] for fracture with routine healing Episodic Other fractures (3 sources) Compression fracture of thoracic vertebra, nontraumatic; Translations: [Collapsed vertebra, not elsewhere classified, thoracic region, initial encounter for fracture] 11-04-2023 Episodic Other gastrointestinal disorders (19 sources) Constipation; Translations: [Constipation, unspecified] Episodic Other gastrointestinal disorders (19 sources) Diarrhea; Translations: [Diarrhea, unspecified] 02-16-2024 Episodic Other hematologic conditions (7 sources) Other specified diseases of blood and blood-forming organs; Translations: [Macrocytosis] Chronic Other hematologic conditions (20 sources) Macrocytosis; Translations: [Other specified diseases of [...] upper limbs] Chronic Other nervous system disorders (14 sources) Carpal tunnel syndrome of right wrist; Translations: [Carpal tunnel syndrome, right upper limb] 10-19-2024 Chronic Other nervous system disorders (5 sources) Carpal tunnel syndrome, right upper limb; Translations: [Carpal tunnel syndrome] 10-19-2024 Chronic Other nervous system disorders (9 sources) Unsteady when walking; Translations: [Unsteadiness on feet] Episodic Other nervous system disorders (1 source) Unsteadiness on feet Episodic Other non-traumatic joint disorders (16 sources) Pain in unspecified joint; Translations: [Pain in joint, multiple sites] Onset: 1 Resolved: 2 Episodic Other non-traumatic joint disorders (19 sources) Multiple joint pain; Translations: [Pain in unspecified joint] 11-04-2023 Episodic Other non-traumatic joint disorders (19 sources) Pain in left shoulder; Translations: [Left shoulder pain] 11-04-2023 Episodic Other non-traumatic joint disorders (1 source) Pain of left wrist; Translations: [Pain in left wrist] 01-11-2025 Episodic Other nutritional; endocrine; and metabolic disorders [...] Episodic Other nutritional; endocrine; and metabolic disorders (8 sources) Weight loss; Translations: [Abnormal weight loss] 02-16-2024 Episodic Other nutritional; endocrine; and metabolic disorders (9 sources) Abnormal weight loss; Translations: [Loss of weight] 02-16-2024 Episodic Other nutritional; endocrine; and metabolic disorders (11 sources) Loss of appetite; Translations: [Anorexia] 09-20-2024 Episodic Other nutritional; endocrine; and metabolic disorders (14 sources) Weight decreased; Translations: [Abnormal weight loss] 02-16-2024 Episodic Other nutritional; endocrine; and metabolic disorders (8 sources) Anorexia; Translations: [Anorexia] 09-20-2024 Episodic Other screening for suspected conditions (not mental disorders or infectious disease) (6 sources) Encounter for screening mammogram for malignant neoplasm of breast; Translations: [Other screening mammogram] Onset: 2 Resolved: 2 Episodic Other upper respiratory disease (19 sources) Rhinitis; Translations: [Chronic rhinitis] Chronic Other upper respiratory disease (1 source) Other specified disorders of nose and nasal sinuses Episodic Residual codes; unclassified (19 sources) Insomnia; Translations: [Insomnia, unspecified] Episodic Residual codes; unclassified (5 sources) Edema, unspecified; Translations: [Edema R60.9] Onset: 1 Resolved: 2 Episodic Residual codes; unclassified (1 source) Edema of lower extremity 08-02-2022 Episodic Residual codes; unclassified (19 sources) Edema; Translations: [Edema, unspecified] 11-04-2023 Episodic Residual codes; unclassified (11 sources) Early satiety; Translations: [Early satiety] 09-20-2024 Episodic Residual codes; unclassified (8 sources) Early satiety; Translations: [Early satiety] 09-20-2024 Episodic Screening and history of mental health and substance abuse codes (1 source) Encounter for screening for depression Episodic Spondylosis; intervertebral disc disorders; other back problems (20 sources) Acute low back pain; Translations: [Low back pain] Onset: 2 Episodic Substance-related disorders (20 sources) Nicotine dependence; Translations: [Nicotine dependence, unspecified, uncomplicated] Onset: 3 Chronic Syncope (15 sources) Near syncope; Translations: [Syncope and collapse] 11-14-2024 Episodic Systemic lupus erythematosus and connective tissue disorders (20 sources) Systemic sclerosis, unspecified; Translations: [Scleroderma] Onset: 2 Chronic Urinary tract infections (20 sources) Cystitis, unspecified without hematuria; Translations: [Cystitis] Onset: 2 Episodic Varicose veins of lower extremity (20 sources) Varicose veins of lower extremity; Translations: [Asymptomatic varicose veins of left lower extremity] 01-30-2022 Episodic Past or Other Problems Problem Classification Problem Date Documented Da te Episodic/Chronic Abdominal pain (20 sources) Epigastric pain; Translations: [Epigastric pain] Onset: 02-04-2022 Episodic Genitourinary symptoms and ill-defined conditions (20 sources) Biliuria; Translations: [Hematuria, unspecified] Onset: 04-10-2021 Resolved: 10-17-2021 Episodic Nausea and vomiting (20 sources) Nausea and vomiting; Translations: [Nausea with vomiting, unspecified] Onset: 04-04-2024 04-06-2024 Episodic Other circulatory disease (1 source) Hypotension, unspecified Onset: 09-04-2021 Resolved: 09-04-2021 Episodic Other connective tissue disease (6 sources) Pain in right hand; Translations: [Pain in limb] Onset: 09-27-2024 10-19-2024 Episodic Other gastrointestinal disorders (2 sources) Constipation, unspecified; Translations: [Constipation K59.00] Onset: 04-10-2021 Resolved: 10-17-2021 Episodic Other gastrointestinal disorders (13 sources) Diarrhea, unspecified; Translations: [Diarrhea] Onset: 04-14-2024 02-16-2024 Episodic Other non-traumatic joint disorders (20 sources) Pain in right knee; Translations: [Right knee pain] Onset: 02-23-2024 02-15-2024 Episodic Residual codes; unclassified (1 source) Family history of malignant neoplasm of ovary; Translations: [FAM HX MALIGNANT NEOPLASM OVARY] Onset: 04-15-2022 Episodic Results Test Name Value Interpretation Reference Range Facility Alanine aminotransferase [En zymatic activity/volume] in Serum or PlasmaOrdered By: Karlee Mckeon on 12-29-2024 ALT [Catalytic activity/Vol] 15 U/L Normal 7-52 [facility] Comment on above: Performed By: #### M G, CBC, CUU, CMP, ESR, ADDONUAPLUS, PHOS ####[facility] [id number] [place] [address] [place]#### C3, C4, CH50 ####[facility] , Albumin [Mass/volume] in Ser um or Plasma by Bromocresol green (BCG) dye binding methoOrdered By: Karlee Mckeon on 12-29-2024 Albumin BCG dye [Mass/Vol] 4.5 g/dL 3.5-5.7 [facility] Alkaline phosphatase [Enzyma tic activity/volume] in Serum or PlasmaOrdered By: Karlee Mckeon on 12-29-2024 ALP [Catalytic activity/Vol] 37 U/L Normal 34-104 [facility] Comment on above: Performed By: #### M G, CBC, CUU, CMP, ESR, ADDONUAPLUS, PHOS ####[facility] [id number] [place] [address] [place]#### C3, C4, CH50 ####[facility] , Appearance of UrineOrdered B y: Karlee Mckeon on 12-29-2024 Appearance (U) Cloudy Critically abnormal Clear [facility] Comment on above: Order Comment: Name Collection Type:: Clean-Voided Midstream Performed By: #### M G, CBC, CUU, CMP, ESR, ADDONUAPLUS, PHOS ####[address]#### C3, C4, CH50 ####[facility] , Aspartate aminotransferase [ Enzymatic activity/volume] in Serum or PlasmaOrdered By: Karlee Mckeon on 12-29-2024 AST [Catalytic activity/Vol] 19 U/L Normal 13-39 [facility] Comment on above: Performed By: #### M G, CBC, CUU, CMP, ESR, ADDONUAPLUS, PHOS ####[address]#### C3, C4, CH50 ####[facility] , Bacteria [Presence] in Urine by AutomatedOrdered By: Karlee Mckeon on 12-29-2024 Bacteria Auto Ql (U) 1+ [HPF] High None Seen [facility] Basophils [#/volume] in Bloo d by Automated countOrdered By: Karlee Mckeon on 12-29-2024 Basophils (Bld) [#/Vol] 0.1 10*3/uL Normal 0.0-0.2 [facility] Comment on above: Performed By: #### M G, CBC, CUU, CMP, ESR, ADDONUAPLUS, PHOS ####[place] [address] [place]#### C3, C4, CH50 ####[facility] , Basophils/100 leukocytes in Blood by Automated countOrdered By: Karlee Mckeon on 12-29-2024 Basophils/100 WBC (Bld) 1.9 % Normal . [facility] Comment on above: Performed By: #### M G, CBC, CUU, CMP, ESR, ADDONUAPLUS, PHOS ####[place] [address] [place]#### C3, C4, CH50 ####[facility] , Bilirubin Test strip Ql (U)O rdered By: Karlee Mckeon on 12-29-2024 Bilirubin Ql (U) 1+ High Negative [facility] Bilirubin.total [Mass/volume ] in Serum or PlasmaOrdered By: Karlee Mckeon on 12-29-2024 Bilirubin [Mass/Vol] 0.5 mg/dL Normal 0.3-1.0 [facility] Comment on above: Performed By: #### M G, CBC, CUU, CMP, ESR, ADDONUAPLUS, PHOS ####[address]#### C3, C4, CH50 ####[facility] , Calcium [Mass/volume] in Ser um or PlasmaOrdered By: Karlee Mckeon on 12-29-2024 Calcium [Mass/Vol] 9.4 mg/dL Normal 8.6-10.3 [facility] Comment on above: Performed By: #### M G, CBC, CUU, CMP, ESR, ADDONUAPLUS, PHOS ####[address]#### C3, C4, CH50 ####[facility] , Carbon dioxide, total [Moles /volume] in Serum or PlasmaOrdered By: Karlee Mckeon on 12-29-2024 CO2 [Moles/Vol] 29.9 mmol/L Normal 21.0-31.0 [facility] Comment on above: Performed By: #### M G, CBC, CUU, CMP, ESR, ADDONUAPLUS, PHOS ####[place] [address] [place]#### C3, C4, CH50 ####[facility] , Chloride [Moles/volume] in S rox or PlasmaOrdered By: Karlee Mckeon on 12-29-2024 Chloride [Moles/Vol] 102 mmol/L Normal 98-107 [facility] Comment on above: Performed By: #### M G, CBC, CUU, CMP, ESR, ADDONUAPLUS, PHOS ####[address]#### C3, C4, CH50 ####[facility] , Color of Urine by AutoOrdere d By: Karlee Mckeon on 12-29-2024 Color (U) Light-yellow Normal Yellow [facility] Comment on above: Order Comment: Name Collection Type:: Clean-Voided Midstream Performed By: #### M G, CBC, CUU, CMP, ESR, ADDONUAPLUS, PHOS ####[address]#### C3, C4, CH50 ####[facility] , Complement C3on 12-29-2024 Complement C3 124 mg/dL Normal 82-167 [facility] Comment on above: Result Comment: Perf ormed at: - [facility] [place] [id number] Bailiff: Santiago Madrid PhD, Phone: [phone] Performed By: #### M G, CBC, CUU, CMP, ESR, ADDONUAPLUS, PHOS ####[address]#### C3, C4, CH50 ####[facility] , Complement C4on 12-29-2024 Complement C4 20 mg/dL Normal 12-38 [facility] Comment on above: Result Comment: PERF ORMED BY: [facility] [address] [place] [address] PATHOLOGIST [employer] ADMIN BETO SHAW M.D. Performed By: #### M G, CBC, CUU, CMP, ESR, ADDONUAPLUS, PHOS ####[address]#### C3, C4, CH50 ####[facility] , Complement Total (CH50)on Complement Total (CH50) >60 Normal >41 [facility] Comment on above: Result Comment: Age Male [...] to determine out of range values. Performed at: - [facility] [address] [id number] Bailiff: Santiago Madrid PhD, Phone: [phone] PERFORMED BY: [address] [place] [address] PATHOLOGIST [employer] ADMIN BETO SHAW M.D. Performed By: #### M G, CBC, CUU, CMP, ESR, ADDONUAPLUS, PHOS ####[address]#### C3, C4, CH50 ####[facility] , Complete Blood Count Auto Di ffon 12-29-2024 Mean Corpuscular HGB Conc 33.4 g/dL Normal 32.0-35.0 [facility] Comment on above: Performed By: #### M G, CBC, CUU, CMP, ESR, ADDONUAPLUS, PHOS ####[address]#### C3, C4, CH50 ####[facility] , NRBC% 0.0 /100{WBC} Normal 0-0.5 [facility] Comment on above: Performed By: #### M G, CBC, CUU, CMP, ESR, ADDONUAPLUS, PHOS ####[address]#### C3, C4, CH50 ####[facility] , White Blood Count 5.5 [CFU]/mL Normal 3.8-11.6 [facility] Comment on above: Performed By: #### M G, CBC, CUU, CMP, ESR, ADDONUAPLUS, PHOS ####[place] [address] [address]#### C3, C4, CH50 ####[facility] , Comprehensive Metabolic Pane preston 12-29-2024 Albumin [Mass/Vol] 4.5 g/dL Normal 3.5-5.7 [facility] Comment on above: Performed By: #### M G, CBC, CUU, CMP, ESR, ADDONUAPLUS, PHOS ####[address]#### C3, C4, CH50 ####[facility] , GFR/1.73 sq M.predicted MDRD (S/P/Bld) [Vol rate/Area] mL/min/{1.73_m2} Normal [facility] Comment on above: Performed By: #### M G, CBC, CUU, CMP, ESR, ADDONUAPLUS, PHOS ####[address]#### C3, C4, CH50 ####[facility] , Creatinine [Mass/volume] in Serum or PlasmaOrdered By: Karlee Mckeon on 12-29-2024 Creatinine [Mass/Vol] 0.83 mg/dL Normal 0.60-1.20 [facility] Comment on above: Performed By: #### M G, CBC, CUU, CMP, ESR, ADDONUAPLUS, PHOS ####[place] [address] [place]#### C3, C4, CH50 ####[facility] , Dipstick and Microscopicon 0 12-29-2024 Bacteria,Urine 1+ [HPF] Normal None Seen [facility] Comment on above: Order Comment: Name Collection Type:: Clean-Voided Midstream Performed By: #### M G, CBC, CUU, CMP, ESR, ADDONUAPLUS, PHOS ####[address]#### C3, C4, CH50 ####[facility] , Bilirubin,Urine 1+ Normal Negative [facility] Comment on above: Order Comment: Name Collection Type:: Clean-Voided Midstream Performed By: #### M G, CBC, CUU, CMP, ESR, ADDONUAPLUS, PHOS ####[address]#### C3, C4, CH50 ####[facility] , Glucose Ql (U) Normal Normal Normal [facility] Comment on above: Order Comment: Name Collection Type:: Clean-Voided Midstream Performed By: #### M G, CBC, CUU, CMP, ESR, ADDONUAPLUS, PHOS ####[address]#### C3, C4, CH50 ####[facility] , Hyaline Casts,Urine None Normal 0-8 [facility] Comment on above: Order Comment: Name Collection Type:: Clean-Voided Midstream Result Comment: PERF ORMED BY: [address] [place] [address] PATHOLOGIST [employer] ADMIN BETO SHAW M.D. Performed By: #### M G, CBC, CUU, CMP, ESR, ADDONUAPLUS, PHOS ####[address]#### C3, C4, CH50 ####[facility] , Nitrite,Urine Negative Normal Negative [facility] Comment on above: Order Comment: Name Collection Type:: Clean-Voided Midstream Performed By: #### M G, CBC, CUU, CMP, ESR, ADDONUAPLUS, PHOS ####[address]#### C3, C4, CH50 ####[facility] , Non-Squamous Epithelial Cell,U 3-4 Normal None Seen [facility] Comment on above: Order Comment: Name Collection Type:: Clean-Voided Midstream Performed By: #### M G, CBC, CUU, CMP, ESR, ADDONUAPLUS, PHOS ####[address]#### C3, C4, CH50 ####[facility] , Occult Blood,Urine Negative Normal Negative [facility] Comment on above: Order Comment: Name Collection Type:: Clean-Voided Midstream Performed By: #### M G, CBC, CUU, CMP, ESR, ADDONUAPLUS, PHOS ####[address]#### C3, C4, CH50 ####[facility] , Protein,Urine Negative Normal Negative [facility] Comment on above: Order Comment: Name Collection Type:: Clean-Voided Midstream Performed By: #### M G, CBC, CUU, CMP, ESR, ADDONUAPLUS, PHOS ####[address]#### C3, C4, CH50 ####[facility] , RBC,Urine 3-4 Normal 0-4 [facility] Comment on above: Order Comment: Name Collection Type:: Clean-Voided Midstream Performed By: #### M G, CBC, CUU, CMP, ESR, ADDONUAPLUS, PHOS ####[address]#### C3, C4, CH50 ####[facility] , Specificy [place]oper,Urine 1.010 Normal 1.001-1.030 [facility] Comment on above: Order Comment: Name Collection Type:: Clean-Voided Midstream Performed By: #### M G, CBC, CUU, CMP, ESR, ADDONUAPLUS, PHOS ####[address]#### C3, C4, CH50 ####[facility] , Squamous Epithelial Cell,Urine 20-49 Normal 0-2 [facility] Comment on above: Order Comment: Name Collection Type:: Clean-Voided Midstream Performed By: #### M G, CBC, CUU, CMP, ESR, ADDONUAPLUS, PHOS ####[address]#### C3, C4, CH50 ####[facility] , Urobilinogen,Urine Normal Normal Normal [facility] Comment on above: Order Comment: Name Collection Type:: Clean-Voided Midstream Performed By: #### M G, CBC, CUU, CMP, ESR, ADDONUAPLUS, PHOS ####[address]#### C3, C4, CH50 ####[facility] , WBC CLUMP, Urine Many Normal None Seen [facility] Comment on above: Order Comment: Name Collection Type:: Clean-Voided Midstream Performed By: #### M G, CBC, CUU, CMP, ESR, ADDONUAPLUS, PHOS ####[address]#### C3, C4, CH50 ####[facility] , WBC,Urine Innumerable Normal 0-4 [facility] Comment on above: Order Comment: Name Collection Type:: Clean-Voided Midstream Performed By: #### M G, CBC, CUU, CMP, ESR, ADDONUAPLUS, PHOS ####[address]#### C3, C4, CH50 ####[facility] , Eosinophils [#/volume] in Bl ood by Automated countOrdered By: Karlee Mckeon on 12-29-2024 Eosinophils (Bld) [#/Vol] 0.0 10*3/uL Normal 0.0-0.45 [facility] Comment on above: Performed By: #### M G, CBC, CUU, CMP, ESR, ADDONUAPLUS, PHOS ####[facility]#### C3, C4, CH50 ####[facility] , Eosinophils/100 leukocytes i n Blood by Automated countOrdered By: Karlee Mckeon on 12-29-2024 Eosinophils/100 WBC (Bld) 0.8 % Normal . [facility] Comment on above: Performed By: #### M G, CBC, CUU, CMP, ESR, ADDONUAPLUS, PHOS ####[place] [address] [address]#### C3, C4, CH50 ####[facility] , Epithelial cells.non-squamou s [#/area] in Urine sediment by Automated countOrdered By: Karlee Mckeon on 12-29-2024 Epithelial cells.non-squamous Auto (Urine sed) [#/Area] 3-4 [HPF] High None Seen [facility] Epithelial cells.squamous [# /area] in Urine sediment by Automated countOrdered By: Karlee Mckeon on 12-29-2024 Epithelial cells.squamous Auto (Urine sed) [#/Area] 20-49 [HPF] High 0-2 [facility] Erythrocyte Sedimentation Ra roosevelt 12-29-2024 ESR (Bld) [Velocity] 23 mm/h Normal 0-29 [facility] Comment on above: Result Comment: PERF ORMED BY: [facility] [address] [place] [address] PATHOLOGIST [employer] ADMIN BETO SHAW M.D. Performed By: #### M G, CBC, CUU, CMP, ESR, ADDONUAPLUS, PHOS ####[place] [address] [address]#### C3, C4, CH50 ####[facility] , Erythrocyte distribution wid th [Ratio] by Automated countOrdered By: Karlee Mckeon on 12-29-2024 Erythrocyte distribution width (RBC) [Ratio] 13.4 % Normal 11.9-15.3 [facility] Comment on above: Performed By: #### M G, CBC, CUU, CMP, ESR, ADDONUAPLUS, PHOS ####[facility]#### C3, C4, CH50 ####[facility] , Erythrocyte sedimentation ra te by Photometric methodOrdered By: Karlee Mckeon on 12-29-2024 ESR Photometric method (Bld) [Velocity] 23 mm/hr 0-29 [facility] Erythrocytes [#/area] in Uri ne sediment by Automated countOrdered By: Karlee Mckeon on 12-29-2024 RBC Auto (Urine sed) [#/Area] 3-4 [HPF] 0-4 [facility] Erythrocytes [#/volume] in B lood by Automated countOrdered By: Karlee Mckeon on 12-29-2024 RBC (Bld) [#/Vol] 4.34 10*6/uL Normal 3.60-5.00 [facility] Comment on above: Performed By: #### M G, CBC, CUU, CMP, ESR, ADDONUAPLUS, PHOS ####[facility]#### C3, C4, CH50 ####[facility] , Glucose [Mass/volume] in Ser um or PlasmaOrdered By: Karlee Mckeon on 12-29-2024 Glucose [Mass/Vol] 86 mg/dL Normal 70-100 [facility] Comment on above: ADA recommended refe rence rangeRandom Glucose Reference Range is dependent on time and content of last meal. Glucose of more than 200 mg/dL in a nonstressed, ambulatory subject supports the diagnosis of Diabetes Mellitus. Result Comment: [place] om Glucose Reference Range is dependent on time and content of last meal. Glucose of more than 200 mg/dL in a nonstressed, ambulatory subject supports the diagnosis of Diabetes Mellitus. ADA recommended reference range Performed By: #### M G, CBC, CUU, CMP, ESR, ADDONUAPLUS, PHOS ####[facility]#### C3, C4, CH50 ####[facility] , Glucose [Mass/volume] in Uri ne by Test stripOrdered By: Karlee Mckeon on 12-29-2024 Glucose Test strip (U) [Mass/Vol] Normal mg/dL Normal [facility] Hematocrit [Volume Fraction] of Blood by Automated countOrdered By: Karlee Mckeon on 12-29-2024 Hematocrit (Bld) [Volume fraction] 40.5 % Normal 34.0-46.4 [facility] Comment on above: Performed By: #### M G, CBC, CUU, CMP, ESR, ADDONUAPLUS, PHOS ####[address]#### C3, C4, CH50 ####[facility] , Hemoglobin Test strip Ql (U) Ordered By: Karlee Mckeon on 12-29-2024 Hemoglobin Ql (U) Negative Negative [facility] Hemoglobin [Mass/volume] in BloodOrdered By: Karlee Mckeon on 12-29-2024 Hemoglobin (Bld) [Mass/Vol] 13.5 g/dL Normal 11.8-15.4 [facility] Comment on above: Performed By: #### M G, CBC, CUU, CMP, ESR, ADDONUAPLUS, PHOS ####[place] [address] [place]#### C3, C4, CH50 ####[facility] , Hyaline casts [#/area] in Ur ine sediment by Automated countOrdered By: Karlee Mckeon on 12-29-2024 Hyaline casts Auto (Urine sed) [#/Area] None [LPF] 0-8 [facility] Ketones [Presence] in Urine by Test stripOrdered By: Karlee Mckeon on 12-29-2024 Ketones Ql (U) Negative Normal Negative [facility] Comment on above: Order Comment: Name Collection Type:: Clean-Voided Midstream Performed By: #### M G, CBC, CUU, CMP, ESR, ADDONUAPLUS, PHOS ####[facility] [id number]#### C3, C4, CH50 ####[facility] , Leukocyte clumps [Presence] in Urine by AutomatedOrdered By: Karlee Mckeon on 12-29-2024 Leukocyte clumps Auto Ql (U) Many [LPF] High None Seen [facility] Leukocyte esterase [Presence ] in Urine by Test stripOrdered By: Karlee Mckeon on 12-29-2024 Leukocyte esterase Test strip Ql (U) 4+ Normal Negative [facility] Comment on above: Order Comment: Name Collection Type:: Clean-Voided Midstream Performed By: #### M G, CBC, CUU, CMP, ESR, ADDONUAPLUS, PHOS ####[facility] [id number]#### C3, C4, CH50 ####[facility] , Leukocytes [#/area] in Urine sediment by Automated countOrdered By: Karlee Mckeon on 12-29-2024 WBC Auto (Urine sed) [#/Area] Innumerable [HPF] High 0-4 [facility] Leukocytes [#/volume] correc sandip for nucleated erythrocytes in Blood by Automated counOrdered By: Karlee Mckeon on 12-29-2024 WBC corrected for nucl RBC Auto (Bld) [#/Vol] 5.5 10*3/uL 3.8-11.6 [facility] Leukocytes [#/volume] in Blo od by Automated countOrdered By: Karlee Mckeon on 12-29-2024 WBC (Bld) [#/Vol] 5.5 10*3/uL Normal 3.8-11.6 [facility] Comment on above: Performed By: #### M G, CBC, CUU, CMP, ESR, ADDONUAPLUS, PHOS ####[address]#### C3, C4, CH50 ####[facility] , Lymphocytes [#/volume] in Bl ood by Automated countOrdered By: Karlee Mckeon on 12-29-2024 Lymphocytes (Bld) [#/Vol] 0.8 10*3/uL Low 1.00-4.8 [facility] Comment on above: Performed By: #### M G, CBC, CUU, CMP, ESR, ADDONUAPLUS, PHOS ####[address]#### C3, C4, CH50 ####[facility] , Lymphocytes/100 leukocytes i n Blood by Automated countOrdered By: Karlee Mckeon on 12-29-2024 Lymphocytes/100 WBC (Bld) 13.7 % Normal . [facility] Comment on above: Performed By: #### M G, CBC, CUU, CMP, ESR, ADDONUAPLUS, PHOS ####[address]#### C3, C4, CH50 ####[facility] , MCH [Entitic mass] by Automa sandip countOrdered By: Karlee Mckeon on 12-29-2024 MCH (RBC) [Entitic mass] 31.2 pg Normal 24.7-34.3 [facility] Comment on above: Performed By: #### M G, CBC, CUU, CMP, ESR, ADDONUAPLUS, PHOS ####[place] [address] [place]#### C3, C4, CH50 ####[facility] , MCHC Auto (RBC) [Mass/Vol]Or dered By: Karlee Mckeon on 12-29-2024 MCHC (RBC) [Mass/Vol] 33.4 g/dL 32.0-35.0 [facility] MCV [Entitic volume] by Auto mated countOrdered By: Karlee Mckeon on 12-29-2024 MCV (RBC) [Entitic vol] 93.4 fL Normal 80-100 F [facility] Comment on above: Performed By: #### M G, CBC, CUU, CMP, ESR, ADDONUAPLUS, PHOS ####[place] [address] [address]#### C3, C4, CH50 ####[facility] , Magnesium [Mass/volume] in S rox or PlasmaOrdered By: Karlee Mckeon on 12-29-2024 Magnesium [Mass/Vol] 2.2 mg/dL Normal 1.9-2.7 [facility] Comment on above: Result Comment: PERF ORMED BY: [facility] [address] [facility] [place] [address] PATHOLOGIST [employer] BETO SHAW M.D. Performed By: #### M G, CBC, CUU, CMP, ESR, ADDONUAPLUS, PHOS ####[address]#### C3, C4, CH50 ####[facility] , Monocytes [#/volume] in Bloo d by Automated countOrdered By: Karlee Mckeon on 12-29-2024 Monocytes (Bld) [#/Vol] 0.5 10*3/uL Normal 0.0-0.8 [facility] Comment on above: Performed By: #### M G, CBC, CUU, CMP, ESR, ADDONUAPLUS, PHOS ####[place] [address] [place] [address] [place]#### C3, C4, CH50 ####[facility] , Monocytes/100 leukocytes in Blood by Automated countOrdered By: Karlee Mckeon on 12-29-2024 Monocytes/100 WBC (Bld) 8.4 % Normal . [facility] Comment on above: Performed By: #### M G, CBC, CUU, CMP, ESR, ADDONUAPLUS, PHOS ####[place] [address] [address]#### C3, C4, CH50 ####[facility] , Neutrophils [#/volume] in Bl ood by Automated countOrdered By: Karlee Mckeon on 12-29-2024 Neutrophils (Bld) [#/Vol] 4.2 10*3/uL Normal 1.8-7.7 [facility] Comment on above: Performed By: #### M G, CBC, CUU, CMP, ESR, ADDONUAPLUS, PHOS ####[address]#### C3, C4, CH50 ####[facility] , Neutrophils/100 leukocytes i n Blood by Automated countOrdered By: Karlee Mckeon on 12-29-2024 Neutrophils/100 WBC (Bld) 75.2 % Normal . [facility] Comment on above: Performed By: #### M G, CBC, CUU, CMP, ESR, ADDONUAPLUS, PHOS ####[address]#### C3, C4, CH50 ####[facility] , Nitrite Test strip Ql (U)Ord ered By: Karlee Mckeon on 12-29-2024 Nitrite Ql (U) Negative Negative [facility] No Panel InformationOrdered By: Karlee Mckeon on 12-29-2024 Estimated GFR (CKD-EPI) > 60.0 mL/Min [facility] Creatinine Clearance (Chem N/A [facility] Nucleated erythrocytes [Pres ence] in Blood by Automated countOrdered By: Karlee Mckeon on 12-29-2024 Nucleated RBC Auto Ql (Bld) 0.0 /100{WBC} 0-0.5 [facility] Phosphate [Mass/volume] in S rox or PlasmaOrdered By: Karlee Mckeon on 12-29-2024 Phosphate [Mass/Vol] 3.9 mg/dL Normal 2.5-4.5 [facility] Comment on above: Performed By: #### M G, CBC, CUU, CMP, ESR, ADDONUAPLUS, PHOS ####[address]#### C3, C4, CH50 ####[facility] , Platelet mean volume [Entiti c volume] in Blood by Automated countOrdered By: Karlee Mckeon on 12-29-2024 Platelet mean volume (Bld) [Entitic vol] 8.6 fL Normal 6.3-10.7 [facility] Comment on above: Performed By: #### M G, CBC, CUU, CMP, ESR, ADDONUAPLUS, PHOS ####[address]#### C3, C4, CH50 ####[facility] , Platelets [#/volume] in Bloo d by Automated countOrdered By: Karlee Mckeon on 12-29-2024 Platelets (Bld) [#/Vol] 191 10*3/uL Normal 150-450 [facility] Comment on above: Performed By: #### M G, CBC, CUU, CMP, ESR, ADDONUAPLUS, PHOS ####[place] [address] [place]#### C3, C4, CH50 ####[facility] , Potassium [Moles/volume] in Serum or PlasmaOrdered By: Karlee Mckeon on 12-29-2024 Potassium [Moles/Vol] 4.4 mmol/L Normal 3.5-5.1 [facility] Comment on above: Performed By: #### M G, CBC, CUU, CMP, ESR, ADDONUAPLUS, PHOS ####[place] [address] [place]#### C3, C4, CH50 ####[facility] , Protein Test strip (U) [Mass /Vol]Ordered By: Karlee Mckeon on 12-29-2024 Protein (U) [Mass/Vol] Negative Negative [facility] Protein [Mass/volume] in Ser um or PlasmaOrdered By: Karlee Mckeon on 12-29-2024 Protein [Mass/Vol] 6.8 g/dL Normal 6.4-8.9 [facility] Comment on above: Performed By: #### M G, CBC, CUU, CMP, ESR, ADDONUAPLUS, PHOS ####[facility]#### C3, C4, CH50 ####[facility] , Serum globulin measurement b y calculation (mass/volume)Ordered By: Karlee Mckeon on 12-29-2024 Globulin (S) [Mass/Vol] 2.3 g/dL Normal [facility] Comment on above: Performed By: #### M G, CBC, CUU, CMP, ESR, ADDONUAPLUS, PHOS ####[facility]#### C3, C4, CH50 ####[facility] , Serum or plasma albumin/glob ulin mass ratioOrdered By: Karlee Mckeon on 12-29-2024 Albumin/Globulin [Mass ratio] 2.0 {ratio} Normal [facility] Comment on above: Performed By: #### M G, CBC, CUU, CMP, ESR, ADDONUAPLUS, PHOS ####[place] [address] [place] [address] [place]#### C3, C4, CH50 ####[facility] , Serum or plasma anion gap de terminationOrdered By: Karlee Mckeon on 12-29-2024 Anion gap [Moles/Vol] 10.5 mmol/L Normal 6.0-15.0 [facility] Comment on above: Performed By: #### M G, CBC, CUU, CMP, ESR, ADDONUAPLUS, PHOS ####[place] [address] [address]#### C3, C4, CH50 ####[facility] , Serum or plasma complement C 3 measurement (mass/volume)Ordered By: Karlee Mckeon on 12-29-2024 Complement C3 [Mass/Vol] 124 mg/dL 82-167 [facility] Comment on above: Performed at: [address] [id number] Director: Santiago Madrid PhD, Phone: [phone] Serum or plasma complement C 4 measurement (mass/volume)Ordered By: Karlee Mckeon on 12-29-2024 Complement C4 [Mass/Vol] 20 mg/dL 12-38 [facility] Sodium [Moles/volume] in Ser um or PlasmaOrdered By: Karlee Mckeon on 12-29-2024 Sodium [Moles/Vol] 138 mmol/L Normal 136-145 [facility] Comment on above: Performed By: #### M G, CBC, CUU, CMP, ESR, ADDONUAPLUS, PHOS ####[address]#### C3, C4, CH50 ####[facility] , Specific gravity Test strip (U) [Rel density]Ordered By: Karlee Mckeon on 12-29-2024 Specific gravity (U) [Rel density] 1.010 1.001-1.030 [facility] Urea nitrogen [Mass/volume] in Serum or PlasmaOrdered By: Karlee Mckeon on 12-29-2024 Urea nitrogen [Mass/Vol] 16 mg/dL Normal 7-25 [facility] Comment on above: Performed By: #### M G, CBC, CUU, CMP, ESR, ADDONUAPLUS, PHOS ####[place] [address] [place] [address] [place]#### C3, C4, CH50 ####[facility] , Urine Cultureon 12-29-2024 Bacteria identified Cx Nom (U) >100,000 colonies/ml mixed bacterial skin contaminants 2 Days PERFORMED BY: [facility] [address] [place] [address] PATHOLOGIST [employer] ADMIN BETO SHAW M.D. Normal [facility] Comment on above: Performed By: #### M G, CBC, CUU, CMP, ESR, ADDONUAPLUS, PHOS ####[place] [address] [address]#### C3, C4, CH50 ####[facility] , Urine cultureOrdered By: Arik Mckeon on 12-29-2024 Bacteria identified Cx Nom (U) 2 Days [facility] Urobilinogen Test strip (U) [Mass/Vol]Ordered By: Karlee Mckeon on 12-29-2024 Urobilinogen (U) [Mass/Vol] Normal mg/dL Normal [facility] pH of Urine by Test stripOrd ered By: Karlee Mckeon on 12-29-2024 pH (U) 7.0 [pH] Normal 5.0-9.0 [facility] Comment on above: Order Comment: Name Collection Type:: Clean-Voided Midstream Performed By: #### M G, CBC, CUU, CMP, ESR, ADDONUAPLUS, PHOS ####[address]#### C3, C4, CH50 ####[facility] , Basophils Auto (Bld) [#/Vol] on 11-03-2024 Basophils (Bld) [#/Vol] Automated basoph il count 0.0-0.1 [facility] Basophils (Bld) [#/Vol] 0.1 10 3/uL 0.0-0.1 [facility] Basophils/100 WBC Auto (Bld) on 11-03-2024 Basophils/100 WBC (Bld) Automated basophil % 0. 2-2.0 [facility] Basophils/100 WBC (Bld) 1.7 % 0.2-2.0 F [facility] Cholesterol in LDL Calc [Mas s/Vol]on 11-03-2024 Cholesterol in LDL [Mass/Vol] Cholesterol in LDL [Mass/volume] in Serum or Plasma by calculation [facility] Comment on above: <100 mg/dl [id number] 0-129 mg/dl NEAR OR ABOVE [id number] mg/dl BORDERLINE [id number] mg/dl HIGH>190 mg/dl VERY HIGH Cholesterol in LDL [Mass/Vol] 118.0 mg/dL [facility] Comment on above: <100 mg/dl [id number] 0-129 mg/dl NEAR OR ABOVE [id number] mg/dl BORDERLINE [id number] mg/dl HIGH>190 mg/dl VERY HIGH Cholesterol in VLDL Calc [Ma ss/Vol]on 11-03-2024 Cholesterol in VLDL [Mass/Vol] Cholesterol in VLDL [Mass/volume] in Serum or Plasma by calculation [facility] Cholesterol in VLDL [Mass/Vol] 11.0 mg/dL [facility] Eosinophils/100 WBC Auto (Bl d)on 11-03-2024 Eosinophils/100 WBC (Bld) Automated eosinophil % 0.9-7.0 [facility] Eosinophils/100 WBC (Bld) 1.7 % 0.9-7.0 [facility] Erythrocyte distribution wid th Auto (RBC) [Ratio]on 11-03-2024 Erythrocyte distribution width (RBC) [Ratio] Erythrocyte distribution width [Ratio] by Automated count 11.0-15.0 [facility] Erythrocyte distribution width (RBC) [Ratio] 13.7 % 11.0-15.0 [facility] Estimated glomerular filtrat ion rate (GFR) non- Americanon 11-03-2024 GFR/1.73 sq M.predicted among non-blacks MDRD (S/P/Bld) [Vol rate/Area] Estimated glomerular filtration rate (GFR) non- >=60 mL/min/1.73m 2 [facility] GFR/1.73 sq M.predicted among non-blacks MDRD (S/P/Bld) [Vol rate/Area] mL/min/{1.73_m2} >=60 mL/min/1.73m 2 [facility] Globulin Calc (S) [Mass/Vol] on 11-03-2024 Globulin (S) [Mass/Vol] Serum globulin measurement by calculation (mass/volume) [facility] Globulin (S) [Mass/Vol] 3.1 g/dL F [facility] Hematocrit Auto (Bld) [Volum e fraction]on 11-03-2024 Hematocrit (Bld) [Volume fraction] Hematocrit [Volume Fraction] of Blood by Automated count 36.0-48.0 [facility] Hematocrit (Bld) [Volume fraction] 38.1 % 36.0-48.0 [facility] Hemoglobin [Mass/volume] in Bloodon 11-03-2024 Hemoglobin (Bld) [Mass/Vol] Hemoglobin [Mass/volume] in Blood 12.0-16.0 [facility] Hemoglobin (Bld) [Mass/Vol] 12.4 g/dL 12.0-16.0 [facility] Laboratory - Chemistry and C hemistry - challengeon 11-03-2024 Albumin [Mass/Vol] 3.5 g/dL 3.4-5.0 [facility] ALP [Catalytic activity/Vol] 34 U/L Low 46-116 [facility] ALT [Catalytic activity/Vol] 26 U/L 14-59 [facility] AST [Catalytic activity/Vol] 20 U/L 15-37 [facility] Bilirubin [Mass/Vol] 0.3 mg/dL 0.2-1.0 [facility] Calcium [Mass/Vol] 8.9 mg/dL 8.5-10.1 [facility] Chloride [Moles/Vol] 102 mmol/L 98-107 [facility] Cholesterol [Mass/Vol] 202 mg/dL High <=200 Fi [facility] Cholesterol in HDL [Mass/Vol] 73 mg/dL High 40-60 [facility] Comment on above: > or =60 mg/dl - LOW CARDIOVASCULAR RISK<40 mg/dl - HIGH CARDIOVASCULAR RISK CO2 [Moles/Vol] 28.4 mmol/L 21.0-32.0 [facility] Cobalamin (Vitamin B12) [Mass/Vol] 817 pg/mL 232-1245 [facility] Comment on above: Performed at: [facility] [id number] [place], [place] [id number] Director: Santiago Madrid PhD, Phone: [phone] Creatinine [Mass/Vol] 0.75 mg/dL 0.55-1.02 [facility] GFR/1.73 sq M.predicted MDRD (S/P/Bld) [Vol rate/Area] mL/min/{1.73_m2} >=60 mL/min/1.73m 2 [facility] Glucose [Mass/Vol] 75 mg/dL 74-106 [facility] Potassium [Moles/Vol] 4.1 mmol/L 3.5-5.1 [facility] Protein [Mass/Vol] 6.6 g/dL 6.4-8.2 [facility] Sodium [Moles/Vol] 139 mmol/L 136-145 [facility] Triglyceride [Mass/Vol] 55 mg/dL <=150 F [facility] Urea nitrogen [Mass/Vol] 15.0 mg/dL 7.0-18.0 [facility] Urea nitrogen/Creatinine [Mass ratio] 20.0 mg/mg [facility] Bilirubin Ql (U) MODERATE Abnormal NEGATIVE [facility] Glucose (U) [Mass/Vol] Negative NEGATIVE [facility] Ketones Ql (U) Negative NEGATIVE [facility] pH (U) 6.0 [pH] 5.0-9.0 [facility] Specific gravity (U) [Rel density] 1.015 1.005-1.025 [facility] Urobilinogen Qn (U) 0.2 {Paul'U}/dL 0.2-1.0 [facility] Laboratory - Hematology and Cell countson 11-03-2024 Immature granulocytes/100 WBC (Bld) 0.4 % 0.0-0.5 [facility] Laboratory - Specimen inform ationon 11-03-2024 Appearance (U) CLEAR CLEAR [facility] Color (U) LT. YELLOW YELLOW [facility] Laboratory - Urinalysison Leukocyte esterase Test strip Ql (U) LARGE Abnormal NEGATIVE [facility] Nitrite Ql (U) Negative NEGATIVE [facility] Protein Ql (U) Negative NEG/TRACE [facility] Leukocytes [#/volume] correc sandip for nucleated erythrocytes in Blood by Automated counon 11-03-2024 WBC corrected for nucl RBC Auto (Bld) [#/Vol] Leukocytes [#/volume] corrected for nucleated erythrocytes in Blood by Automated coun 4.0-11.0 [facility] WBC corrected for nucl RBC Auto (Bld) [#/Vol] 5.4 10 3/uL 4.0-11.0 [facility] Lymphocytes Auto (Bld) [#/Vo l]on 11-03-2024 Lymphocytes (Bld) [#/Vol] Lymphocytes [#/volume] in Blood by Automated count Low 1.2-3.8 [facility] Lymphocytes (Bld) [#/Vol] 1.1 10 3/uL Low 1.2-3.8 [facility] Lymphocytes/100 WBC Auto (Bl d)on 11-03-2024 Lymphocytes/100 WBC (Bld) Lymphocytes/100 leukocytes in Blood by Automated count Low 20.5-60.0 [facility] Lymphocytes/100 WBC (Bld) 19.4 % Low 20.5-60.0 [facility] MCH Auto (RBC) [Entitic mass ]on 11-03-2024 MCH (RBC) [Entitic mass] MCH [Entitic ma ss] by Automated count 26.7-34.0 [facility] MCH (RBC) [Entitic mass] 31.1 pg 26.7-34.0 [facility] MCHC Auto (RBC) [Mass/Vol]on 11-03-2024 MCHC (RBC) [Mass/Vol] MCHC [Mass/volume] by Automated count 29.9-35.2 [facility] MCHC (RBC) [Mass/Vol] 32.5 g/dL 29.9-35.2 [facility] MCV Auto (RBC) [Entitic vol] on 11-03-2024 MCV (RBC) [Entitic vol] MCV [Entitic vol ume] by Automated count 81.0-99.0 [facility] MCV (RBC) [Entitic vol] 95.5 fL 81.0-99.0 [facility] Monocytes Auto (Bld) [#/Vol] on 11-03-2024 Monocytes (Bld) [#/Vol] Automated blood monocyte count 0.3-0.8 [facility] Monocytes (Bld) [#/Vol] 0.6 10 3/uL 0.3-0.8 [facility] Monocytes/100 WBC Auto (Bld) on 11-03-2024 Monocytes/100 WBC (Bld) Automated monocyte % 1. 7-12.0 [facility] Monocytes/100 WBC (Bld) 10.1 % 1.7-12.0 [facility] Neutrophils Auto (Bld) [#/Vo l]on 11-03-2024 Neutrophils (Bld) [#/Vol] Neutrophils [#/volume] in Blood by Automated count 1.4-6.5 [facility] Neutrophils (Bld) [#/Vol] 3.6 10 3/uL 1.4-6.5 [facility] Neutrophils/100 WBC Auto (Bl d)on 11-03-2024 Neutrophils/100 WBC (Bld) Automated neutrophil % 43.0-75.0 [facility] Neutrophils/100 WBC (Bld) 66.7 % 43.0-75.0 [facility] No Panel Informationon 11-03 Eosinophils # (Auto) 0.1 10 3/uL 0.0-0.7 [facility] Folate 25.90 ng/mL 8.60-58.90 [facility] Immature Granulocyte # (Auto) 0.02 10 3/uL 0.00-0.03 [facility] Urine Occult Blood Negative NEGATIVE [facility] Platelet mean volume Auto (B ld) [Entitic vol]on 11-03-2024 Platelet mean volume (Bld) [Entitic vol] Platelet mean volume [Entitic volume] in Blood by Automated count 9.5-13.5 [facility] Platelet mean volume (Bld) [Entitic vol] 9.5 fL 9.5-13.5 [facility] Platelets Auto (Bld) [#/Vol] on 11-03-2024 Platelets (Bld) [#/Vol] Platelets [#/vol ume] in Blood by Automated count 150-450 [facility] Platelets (Bld) [#/Vol] 187 10 3/uL 150-450 [facility] RBC Auto (Bld) [#/Vol]on RBC (Bld) [#/Vol] Erythrocytes [#/volume] in Blood by Automated count Low 4.20-5.40 [facility] RBC (Bld) [#/Vol] 3.99 10 6/uL Low 4.20-5.40 [facility] Serum or plasma albumin/glob ulin mass ratioon 11-03-2024 Albumin/Globulin [Mass ratio] Serum or plasma albumin/globulin mass ratio [facility] Albumin/Globulin [Mass ratio] 1.1 {ratio} [facility] Serum or plasma anion gap de terminationon 11-03-2024 Anion gap [Moles/Vol] Serum or plasma an ion gap determination [facility] Anion gap [Moles/Vol] 12.7 mmol/L [facility] Serum or plasma total choles terol/high density lipoprotein (HDL) cholesterol mass jeff 11-03-2024 Cholesterol.total/Choles terol in HDL [Mass ratio] Serum or plasma total cholesterol/high density lipoprotein (HDL) cholesterol mass rat [facility] Comment on above: 3.3 - 4.4 LOW RISK4. 4 - 7.1 AVERAGE RISK7.1 - 11.0 MODERATE RISK>11.0 HIGH RISK Cholesterol.total/Choles terol in HDL [Mass ratio] 2.8 {ratio} [facility] Comment on above: 3.3 - 4.4 LOW RISK4. 4 - 7.1 AVERAGE RISK7.1 - 11.0 MODERATE RISK>11.0 HIGH RISK Urine Cultureon 11-03-2024 Bacteria identified Cx Nom (U) 50,000 colonies/ml mixed bacterial skin contaminants 2 Days PERFORMED BY: [facility] [address] [place] [address] PATHOLOGIST [employer] JOLYNN AKERS M.D. Normal [facility] Comment on above: Performed By: #### C UU #### [facility] [address] Urine cultureOrdered By: Alessandro Leungvin on 11-03-2024 Bacteria identified Cx Nom (U) Urine culture [facility] Bacteria identified Cx Nom (U) 2 Days [facility] [place] 10-03-2024 L - -------- Specimen: [id number] Received: 10/03/24 Status: ROSMERY Rosenberg Num: [id number] Spec Type: Surgical Subm Dr: Misael Marcum MD Tissues: A Small Intestine - Biopsy/Polyp (SMALL BOWEL BX) Procedures: [place] NULL/Damaris L4 -------- Age/ Patient Sex Location Account Attending Physician -------- Genna Herrera 74/F [id number] Misael Marcum MD -------- SPEC NUM: [id number] RECD: 10/03/24 STATUS: ROSMERY ROSENBERG NUM: [id number] MINDY: 10/03/[address] [facility] [address]: Misael Marcum MD ENTERED: 10/03/[address] [facility] DR: SPEC TYPE: Surgical DEPT: S ENTERED BY: [id number] RECV BY: [id number] ORDERED: HE/2, Gross/Micro L4 ORDERED: HE/2, Gross/Micro L4 Pathological Diagnosis Small bowel biopsy: ? Fragments of small intestinal mucosa, no diagnostic abnormality ? No evidence of celiac disease is identified Clinical Information Nausea vomiting, rule out celiac Gross Description Part A is received in formalin labeled with the patients name, date of , and Sm bowel BX are 2 coyne-lambert, focally erythematous, friable, 0.4 cm each in greatest dimension tissue bits. The specimen is entirely submitted in a single cassette. (1, ns, A) CPT Codes 94264 -------- -------- Specimen: Received: 10/03/24 Status: ROSMERY Huttondhiraj Num: [id number] Spec Type: Surgical Subm Dr: Misael Marcum MD Tissues: A Small Intestine - Biopsy/Polyp (SMALL BOWEL BX) Procedures: HE/2, Gross/Micro L4 -------- Patient: Genna Herrera [id number] (Continued) -------- Signed (signature on file) Bryant Gutierrez MD 10/04/24 1152 Normal [facility] X-ray reportOrdered By: Asa Pierre on 09-27-2024 Study report [facility] [address] [place] [address] XRay Report Signed Patient: Genna Herrera MR#: [id number] : 1950 Acct:[id number] Age/Sex: 74 / F ADM Date: 5 Loc: [facility] [place] Room: Type: [facility] Attending Dr: Domingo George DO Copies to: Domingo George DO~ Ordering Provider: Domingo George DO Date of Service: 09/27/24 XR/XR hand RT min 3V*: M79.641 - Pain in right hand 4 views right hand plain film COMPARISON: None HISTORY: Right first carpometacarpal pain. ACUTE FINDINGS: None DEGENERATIVE CHANGE: Extensive first carpometacarpal degeneration with joint space narrowing and marginal spurring. Extensive first interphalangeal degeneration with subluxation. Mild the distal interphalangeal degeneration. Moderate STT arthritis. Mild ulnar variance. SOFT TISSUE FINDINGS: Unremarkable JOINT EFFUSION: None POSTOP CHANGES: None BONY MINERALIZATION: Adequate XR/XR hand RT min 3V* IMPRESSION: Extensive degeneration the first carpometacarpal and first interphalangeal joints. Impression dictated by: Randall Pierre M.D.09/27/2024 4:41 PM Dictation Location: RADIO-PC-23 Transcribed By: ASHLYN 09/27/24 164 Dictated By: Randall Pierre DO 09/27/24 1640 Signed By: 09/27/241640 [facility] XR hand RT min 3V*on 025 XR hand RT min 3V* [facility] [address] [place] [address] XRay Report Signed Patient: Genna Herrera MR#: [id number] 50 : 1950 Acct:[id number] Age/Sex: 74 / F ADM Date: 09/27/24 Loc: [facility] [place] Room: Type: [facility] Attending Dr: Domingo George DO Copies to: Domingo George DO Ordering Provider: Domingo George DO Date of Service: 09/27/24 XR/XR hand RT min 3V*: M79.641 - Pain in right hand 4 views right hand plain film COMPARISON: None HISTORY: Right first carpometacarpal pain. ACUTE FINDINGS: None DEGENERATIVE CHANGE: Extensive first carpometacarpal degeneration with joint space narrowing and marginal spurring. Extensive first interphalangeal degeneration with subluxation. Mild the distal interphalangeal degeneration. Moderate STT arthritis. Mild ulnar variance. SOFT TISSUE FINDINGS: Unremarkable JOINT EFFUSION: None POSTOP CHANGES: None BONY MINERALIZATION: Adequate XR/XR hand RT min 3V* IMPRESSION: Extensive degeneration the first carpometacarpal and first interphalangeal joints. Impression dictated by: Randall Pierre M.D.09/27/2024 4:41 PM Dictation Location: RADIO-PC-23 Transcribed By: ASHLYN 09/27/24 164 Dictated By: Randall iPerre DO 09/27/24 1640 Signed By: 09/27/24 164 Normal [facility] Basophils Auto (Bld) [#/Vol] on 09-14-2024 Basophils (Bld) [#/Vol] Automated basoph il count 0.0-0.1 [facility] Basophils/100 WBC Auto (Bld) on 09-14-2024 Basophils/100 WBC (Bld) Automated basophil % 0. 2-2.0 [facility] Eosinophils/100 WBC Auto (Bl d)on 09-14-2024 Eosinophils/100 WBC (Bld) Automated eosinophil % 0.9-7.0 [facility] Erythrocyte distribution wid th Auto (RBC) [Ratio]on 09-14-2024 Erythrocyte distribution width (RBC) [Ratio] Erythrocyte distribution width [Ratio] by Automated count 11.0-15.0 [facility] Estimated glomerular filtrat ion rate (GFR) non- Americanon 09-14-2024 GFR/1.73 sq M.predicted among non-blacks MDRD (S/P/Bld) [Vol rate/Area] Estimated glomerular filtration rate (GFR) non- >=60 mL/min/1.73m 2 [facility] Globulin Calc (S) [Mass/Vol] on 09-14-2024 Globulin (S) [Mass/Vol] Serum globulin measurement by calculation (mass/volume) [facility] Hematocrit Auto (Bld) [Volum e fraction]on 09-14-2024 Hematocrit (Bld) [Volume fraction] Hematocrit [Volume Fraction] of Blood by Automated count 36.0-48.0 [facility] Hemoglobin [Mass/volume] in Bloodon 09-14-2024 Hemoglobin (Bld) [Mass/Vol] Hemoglobin [Mass/volume] in Blood 12.0-16.0 [facility] Laboratory - Chemistry and C hemistry - challengeon 09-14-2024 Albumin [Mass/Vol] 3.8 g/dL 3.4-5.0 [facility] ALP [Catalytic activity/Vol] 38 U/L Low 46-116 [facility] ALT [Catalytic activity/Vol] 21 U/L 14-59 [facility] AST [Catalytic activity/Vol] 23 U/L 15-37 [facility] Bilirubin [Mass/Vol] 0.4 mg/dL 0.2-1.0 [facility] Calcium [Mass/Vol] 8.8 mg/dL 8.5-10.1 [facility] Chloride [Moles/Vol] 101 mmol/L 98-107 [facility] CO2 [Moles/Vol] 28.2 mmol/L 21.0-32.0 [facility] Creatinine [Mass/Vol] 0.89 mg/dL 0.55-1.02 [facility] GFR/1.73 sq M.predicted MDRD (S/P/Bld) [Vol rate/Area] mL/min/{1.73_m2} >=60 mL/min/1.73m 2 [facility] Glucose [Mass/Vol] 84 mg/dL 74-106 [facility] Potassium [Moles/Vol] 4.2 mmol/L 3.5-5.1 [facility] Protein [Mass/Vol] 7.1 g/dL 6.4-8.2 [facility] Sodium [Moles/Vol] 137 mmol/L 136-145 [facility] Urea nitrogen [Mass/Vol] 15.0 mg/dL 7.0-18.0 [facility] Urea nitrogen/Creatinine [Mass ratio] 16.9 mg/mg [facility] Laboratory - Hematology and Cell countson 09-14-2024 ESR (Bld) [Velocity] 17 mm/h <=30 [facility] Immature granulocytes/100 WBC (Bld) 0.4 % 0.0-0.5 [facility] Leukocytes [#/volume] correc sandip for nucleated erythrocytes in Blood by Automated counon 09-14-2024 WBC corrected for nucl RBC Auto (Bld) [#/Vol] Leukocytes [#/volume] corrected for nucleated erythrocytes in Blood by Automated coun 4.0-11.0 [facility] Lymphocytes Auto (Bld) [#/Vo l]on 09-14-2024 Lymphocytes (Bld) [#/Vol] Lymphocytes [#/volume] in Blood by Automated count Low 1.2-3.8 [facility] Lymphocytes/100 WBC Auto (Bl d)on 09-14-2024 Lymphocytes/100 WBC (Bld) Lymphocytes/100 leukocytes in Blood by Automated count Low 20.5-60.0 [facility] MCH Auto (RBC) [Entitic mass ]on 09-14-2024 MCH (RBC) [Entitic mass] MCH [Entitic ma ss] by Automated count 26.7-34.0 [facility] MCHC Auto (RBC) [Mass/Vol]on 09-14-2024 MCHC (RBC) [Mass/Vol] MCHC [Mass/volume] by Automated count 29.9-35.2 [facility] MCV Auto (RBC) [Entitic vol] on 09-14-2024 MCV (RBC) [Entitic vol] MCV [Entitic vol ume] by Automated count 81.0-99.0 [facility] Monocytes Auto (Bld) [#/Vol] on 09-14-2024 Monocytes (Bld) [#/Vol] Automated blood monocyte count 0.3-0.8 [facility] Monocytes/100 WBC Auto (Bld) on 09-14-2024 Monocytes/100 WBC (Bld) Automated monocyte % 1. 7-12.0 [facility] Neutrophils Auto (Bld) [#/Vo l]on 09-14-2024 Neutrophils (Bld) [#/Vol] Neutrophils [#/volume] in Blood by Automated count 1.4-6.5 [facility] Neutrophils/100 WBC Auto (Bl d)on 09-14-2024 Neutrophils/100 WBC (Bld) Automated neutrophil % 43.0-75.0 [facility] No Panel Informationon 09-14 Eosinophils # (Auto) 0.1 10 3/uL 0.0-0.7 [facility] Immature Granulocyte # (Auto) 0.02 10 3/uL 0.00-0.03 [facility] Total Complement (CH50) >60 U/mL >41 F [facility] Comment on above: Age Male [...] to determine out of range values.Performed at: [facility] [address] [id number] Director: Santiago Madrid PhD, Phone: [phone] Platelet mean volume Auto (B ld) [Entitic vol]on 09-14-2024 Platelet mean volume (Bld) [Entitic vol] Platelet mean volume [Entitic volume] in Blood by Automated count 9.5-13.5 [facility] Platelets Auto (Bld) [#/Vol] on 09-14-2024 Platelets (Bld) [#/Vol] Platelets [#/vol ume] in Blood by Automated count 150-450 [facility] RBC Auto (Bld) [#/Vol]on RBC (Bld) [#/Vol] Erythrocytes [#/volume] in Blood by Automated count Low 4.20-5.40 [facility] Serum or plasma albumin/glob ulin mass ratioon 09-14-2024 Albumin/Globulin [Mass ratio] Serum or plasma albumin/globulin mass ratio [facility] Serum or plasma anion gap de terminationon 09-14-2024 Anion gap [Moles/Vol] Serum or plasma an ion gap determination [facility] Serum or plasma complement C 3 measurement (mass/volume)on 09-14-2024 Complement C3 [Mass/Vol] Serum or plasma complement C3 measurement (mass/volume) 82-167 [facility] Serum or plasma complement C 4 measurement (mass/volume)on 09-14-2024 Complement C4 [Mass/Vol] Serum or plasma complement C4 measurement (mass/volume) 12-38 [facility] Comment on above: Performed at: [facility] [address] [id number] Director: Santiago Madrid PhD, Phone: [phone] Basophils Auto (Bld) [#/Vol] on 05-09-2024 Basophils (Bld) [#/Vol] Automated basoph il count 0.0-0.1 [facility] Basophils/100 WBC Auto (Bld) on 05-09-2024 Basophils/100 WBC (Bld) Automated basophil % 0. 2-2.0 [facility] Eosinophils/100 WBC Auto (Bl d)on 05-09-2024 Eosinophils/100 WBC (Bld) Automated eosinophil % 0.9-7.0 [facility] Erythrocyte distribution wid th Auto (RBC) [Ratio]on 05-09-2024 Erythrocyte distribution width (RBC) [Ratio] Erythrocyte distribution width [Ratio] by Automated count 11.0-15.0 [facility] Estimated glomerular filtrat ion rate (GFR) non- Americanon 05-09-2024 GFR/1.73 sq M.predicted among non-blacks MDRD (S/P/Bld) [Vol rate/Area] Estimated glomerular filtration rate (GFR) non- >=60 mL/min/1.73m 2 [facility] Globulin Calc (S) [Mass/Vol] on 05-09-2024 Globulin (S) [Mass/Vol] Serum globulin measurement by calculation (mass/volume) [facility] Hematocrit Auto (Bld) [Volum e fraction]on 05-09-2024 Hematocrit (Bld) [Volume fraction] Hematocrit [Volume Fraction] of Blood by Automated count 36.0-48.0 [facility] Hemoglobin [Mass/volume] in Bloodon 05-09-2024 Hemoglobin (Bld) [Mass/Vol] Hemoglobin [Mass/volume] in Blood 12.0-16.0 [facility] Laboratory - Chemistry and C hemistry - challengeon 05-09-2024 Albumin [Mass/Vol] 3.7 g/dL 3.4-5.0 [facility] ALP [Catalytic activity/Vol] 40 U/L Low 46-116 [facility] ALT [Catalytic activity/Vol] 24 U/L 14-59 [facility] AST [Catalytic activity/Vol] 23 U/L 15-37 [facility] Bilirubin [Mass/Vol] 0.4 mg/dL 0.2-1.0 [facility] Calcium [Mass/Vol] 8.9 mg/dL 8.5-10.1 [facility] Chloride [Moles/Vol] 103 mmol/L 98-107 [facility] CO2 [Moles/Vol] 24.9 mmol/L 21.0-32.0 [facility] Creatinine [Mass/Vol] 0.84 mg/dL 0.55-1.02 [facility] GFR/1.73 sq M.predicted MDRD (S/P/Bld) [Vol rate/Area] mL/min/{1.73_m2} >=60 mL/min/1.73m 2 [facility] Glucose [Mass/Vol] 87 mg/dL 74-106 [facility] Potassium [Moles/Vol] 4.1 mmol/L 3.5-5.1 [facility] Protein [Mass/Vol] 7.0 g/dL 6.4-8.2 [facility] Sodium [Moles/Vol] 139 mmol/L 136-145 [facility] Urea nitrogen [Mass/Vol] 15.0 mg/dL 7.0-18.0 [facility] Urea nitrogen/Creatinine [Mass ratio] 17.9 mg/mg [facility] Bilirubin Ql (U) MODERATE Abnormal NEGATIVE [facility] Glucose (U) [Mass/Vol] Negative NEGATIVE [facility] Ketones Ql (U) Negative NEGATIVE [facility] pH (U) 7.0 [pH] 5.0-9.0 [facility] Specific gravity (U) [Rel density] <=1.005 Abnormal 1.005-1.025 [facility] Urobilinogen Qn (U) 0.2 {Paul'U}/dL 0.2-1.0 [facility] Laboratory - Hematology and Cell countson 05-09-2024 ESR (Bld) [Velocity] 32 mm/h High <=30 [facility] Immature granulocytes/100 WBC (Bld) 0.4 % 0.0-0.5 [facility] Laboratory - Specimen inform ationon 05-09-2024 Appearance (U) CLEAR CLEAR [facility] Color (U) LT. YELLOW YELLOW [facility] Laboratory - Urinalysison Leukocyte esterase Test strip Ql (U) SMALL Abnormal NEGATIVE [facility] Mucus Ql (Urine sed) NONE SEEN NONE SEEN [facility] Nitrite Ql (U) Negative NEGATIVE [facility] Protein Ql (U) Negative NEG/TRACE [facility] Leukocytes [#/volume] correc sandip for nucleated erythrocytes in Blood by Automated counon 05-09-2024 WBC corrected for nucl RBC Auto (Bld) [#/Vol] Leukocytes [#/volume] corrected for nucleated erythrocytes in Blood by Automated coun 4.0-11.0 [facility] Lymphocytes Auto (Bld) [#/Vo l]on 05-09-2024 Lymphocytes (Bld) [#/Vol] Lymphocytes [#/volume] in Blood by Automated count Low 1.2-3.8 [facility] Lymphocytes/100 WBC Auto (Bl d)on 05-09-2024 Lymphocytes/100 WBC (Bld) Lymphocytes/100 leukocytes in Blood by Automated count Low 20.5-60.0 [facility] MCH Auto (RBC) [Entitic mass ]on 05-09-2024 MCH (RBC) [Entitic mass] MCH [Entitic ma ss] by Automated count 26.7-34.0 [facility] MCHC Auto (RBC) [Mass/Vol]on 05-09-2024 MCHC (RBC) [Mass/Vol] MCHC [Mass/volume] by Automated count 29.9-35.2 [facility] MCV Auto (RBC) [Entitic vol] on 05-09-2024 MCV (RBC) [Entitic vol] MCV [Entitic vol ume] by Automated count 81.0-99.0 [facility] Monocytes Auto (Bld) [#/Vol] on 05-09-2024 Monocytes (Bld) [#/Vol] Automated blood monocyte count 0.3-0.8 [facility] Monocytes/100 WBC Auto (Bld) on 05-09-2024 Monocytes/100 WBC (Bld) Automated monocyte % 1. 7-12.0 [facility] Neutrophils Auto (Bld) [#/Vo l]on 05-09-2024 Neutrophils (Bld) [#/Vol] Neutrophils [#/volume] in Blood by Automated count 1.4-6.5 [facility] Neutrophils/100 WBC Auto (Bl d)on 05-09-2024 Neutrophils/100 WBC (Bld) Automated neutrophil % 43.0-75.0 [facility] No Panel Informationon 05-09 Eosinophils # (Auto) 0.2 10 3/uL 0.0-0.7 [facility] Immature Granulocyte # (Auto) 0.02 10 3/uL 0.00-0.03 [facility] Total Complement (CH50) 59 U/mL >41 F [facility] Comment on above: Age Male [...] to determine out of range values.Performed at: [facility] [id number] Director: Santiago Madrid PhD, Phone: [phone] Urine Bacteria TRACE #/HPF Abnormal NONE SEEN [facility] Urine Occult Blood Negative NEGATIVE [facility] Urine Other Casts NONE SEEN #/LPF NONE SEEN [facility] Urine Other Crystals None Seen #/HPF None Seen [facility] Urine RBC 0-2 #/HPF 0-2 [facility] Urine Squamous Epithelial Cells FEW #/LPF Abnormal NONE/RARE [facility] Urine WBC 2-5 #/HPF Abnormal NONE SEEN [facility] Platelet mean volume Auto (B ld) [Entitic vol]on 05-09-2024 Platelet mean volume (Bld) [Entitic vol] Platelet mean volume [Entitic volume] in Blood by Automated count 9.5-13.5 [facility] Platelets Auto (Bld) [#/Vol] on 05-09-2024 Platelets (Bld) [#/Vol] Platelets [#/vol ume] in Blood by Automated count 150-450 [facility] RBC Auto (Bld) [#/Vol]on RBC (Bld) [#/Vol] Erythrocytes [#/volume] in Blood by Automated count Low 4.20-5.40 [facility] Serum or plasma albumin/glob ulin mass ratioon 05-09-2024 Albumin/Globulin [Mass ratio] Serum or plasma albumin/globulin mass ratio [facility] Serum or plasma anion gap de terminationon 05-09-2024 Anion gap [Moles/Vol] Serum or plasma an ion gap determination [facility] Serum or plasma complement C 3 measurement (mass/volume)on 05-09-2024 Complement C3 [Mass/Vol] Serum or plasma complement C3 measurement (mass/volume) 82-167 [facility] Serum or plasma complement C 4 measurement (mass/volume)on 05-09-2024 Complement C4 [Mass/Vol] Serum or plasma complement C4 measurement (mass/volume) 12-38 [facility] Comment on above: Performed at: [facility] [address] [id number] Director: Santiago Madrid PhD, Phone: [phone] XR acute abdomen serieson XR acute abdomen series [facility] [place] [address] [place], [place] [id number] XRay Report Signed Patient: Genna Herrera MR#: [id number] 52 : 1950 Acct:[id number] Age/Sex: 73 / F ADM Date: 04/14/24 Loc: XD Room: Type[facility] Attending Dr: Casandra Chopra DO Copies [...] Randall Pierre M.D.04/14/2024 3:18 PM Dictation Location: [place] [address] Transcribed By: [facility] 04/14/241517 Dictated By: Randall Pierre DO 04/14/241516 Signed By: 04/14/241517 Normal [facility] Basophils Auto (Bld) [#/Vol] on 04-06-2024 Basophils (Bld) [#/Vol] 0.1 10 3/uL 0.0-0.1 [facility] Basophils (Bld) [#/Vol] Automated basoph il count 0.0-0.1 [facility] Basophils/100 WBC Auto (Bld) on 04-06-2024 Basophils/100 WBC (Bld) 1.2 % 0.2-2.0 F [facility] Basophils/100 WBC (Bld) Automated basophil % 0. 2-2.0 [facility] Eosinophils/100 WBC Auto (Bl d)on 04-06-2024 Eosinophils/100 WBC (Bld) 0.8 % Low 0.9-7.0 [facility] Eosinophils/100 WBC (Bld) Automated eosinophil % Low 0.9-7.0 [facility] Erythrocyte distribution wid th Auto (RBC) [Ratio]on 04-06-2024 Erythrocyte distribution width (RBC) [Ratio] 13.6 % 11.0-15.0 [facility] Erythrocyte distribution width (RBC) [Ratio] Erythrocyte distribution width [Ratio] by Automated count 11.0-15.0 [facility] Estimated glomerular filtrat ion rate (GFR) non- Americanon 04-06-2024 GFR/1.73 sq M.predicted among non-blacks MDRD (S/P/Bld) [Vol rate/Area] mL/min/{1.73_m2} >=60 mL/min/1.73m 2 [facility] GFR/1.73 sq M.predicted among non-blacks MDRD (S/P/Bld) [Vol rate/Area] Estimated glomerular filtration rate (GFR) non- >=60 mL/min/1.73m 2 [facility] Globulin Calc (S) [Mass/Vol] on 04-06-2024 Globulin (S) [Mass/Vol] 3.1 g/dL F [facility] Globulin (S) [Mass/Vol] Serum globulin measurement by calculation (mass/volume) [facility] Hematocrit Auto (Bld) [Volum e fraction]on 04-06-2024 Hematocrit (Bld) [Volume fraction] 39.3 % 36.0-48.0 [facility] Hematocrit (Bld) [Volume fraction] Hematocrit [Volume Fraction] of Blood by Automated count 36.0-48.0 [facility] Hemoglobin [Mass/volume] in Bloodon 04-06-2024 Hemoglobin (Bld) [Mass/Vol] 13.0 g/dL 12.0-16.0 [facility] Hemoglobin (Bld) [Mass/Vol] Hemoglobin [Mass/volume] in Blood 12.0-16.0 [facility] Laboratory - Chemistry and C hemistry - challengeon 04-06-2024 Albumin [Mass/Vol] 3.7 g/dL 3.4-5.0 [facility] ALP [Catalytic activity/Vol] 41 U/L Low 46-116 [facility] ALT [Catalytic activity/Vol] 35 U/L 14-59 [facility] AST [Catalytic activity/Vol] 35 U/L 15-37 [facility] Bilirubin [Mass/Vol] 0.4 mg/dL 0.2-1.0 [facility] Calcium [Mass/Vol] 8.6 mg/dL 8.5-10.1 [facility] Chloride [Moles/Vol] 100 mmol/L 98-107 [facility] CO2 [Moles/Vol] 23.5 mmol/L 21.0-32.0 [facility] Creatinine [Mass/Vol] 0.73 mg/dL 0.55-1.02 [facility] GFR/1.73 sq M.predicted MDRD (S/P/Bld) [Vol rate/Area] mL/min/{1.73_m2} >=60 mL/min/1.73m 2 [facility] Glucose [Mass/Vol] 77 mg/dL 74-106 [facility] Potassium [Moles/Vol] 3.4 mmol/L Low 3.5-5.1 [facility] Protein [Mass/Vol] 6.8 g/dL 6.4-8.2 [facility] Sodium [Moles/Vol] 136 mmol/L 136-145 [facility] Urea nitrogen [Mass/Vol] 11.0 mg/dL 7.0-18.0 [facility] Urea nitrogen/Creatinine [Mass ratio] 15.1 mg/mg [facility] Bilirubin Ql (U) MODERATE Abnormal NEGATIVE [facility] Glucose (U) [Mass/Vol] Negative NEGATIVE [facility] Ketones Ql (U) 15 mg/dL Abnormal NEGATIVE [facility] pH (U) 6.0 [pH] 5.0-9.0 [facility] Specific gravity (U) [Rel density] 1.010 1.005-1.025 [facility] Urobilinogen Qn (U) 0.2 {Pual'U}/dL 0.2-1.0 [facility] Laboratory - Hematology and Cell countson 04-06-2024 ESR (Bld) [Velocity] 35 mm/h High <=30 [facility] Immature granulocytes/100 WBC (Bld) 0.6 % High 0.0-0.5 [facility] Laboratory - Specimen inform ationon 04-06-2024 Appearance (U) CLEAR CLEAR [facility] Color (U) LT. YELLOW YELLOW [facility] Laboratory - Urinalysison Leukocyte esterase Test strip Ql (U) LARGE Abnormal NEGATIVE [facility] Mucus Ql (Urine sed) NONE SEEN NONE SEEN [facility] Nitrite Ql (U) Negative NEGATIVE [facility] Protein Ql (U) Negative NEG/TRACE [facility] Leukocytes [#/volume] correc sandip for nucleated erythrocytes in Blood by Automated counon 04-06-2024 WBC corrected for nucl RBC Auto (Bld) [#/Vol] 8.9 10 3/uL 4.0-11.0 [facility] WBC corrected for nucl RBC Auto (Bld) [#/Vol] Leukocytes [#/volume] corrected for nucleated erythrocytes in Blood by Automated coun .0- [facility] Lymphocytes Auto (Bld) [#/Vo l]on 04-06-2024 Lymphocytes (Bld) [#/Vol] 1.2 10 3/uL 1.2-3.8 [facility] Lymphocytes (Bld) [#/Vol] Lymphocytes [#/volume] in Blood by Automated count 1.2-3.8 [facility] Lymphocytes/100 WBC Auto (Bl d)on 04-06-2024 Lymphocytes/100 WBC (Bld) 12.9 % Low 20.5-60.0 [facility] Lymphocytes/100 WBC (Bld) Lymphocytes/100 leukocytes in Blood by Automated count Low 20.5-60.0 [facility] MCH Auto (RBC) [Entitic mass ]on 04-06-2024 MCH (RBC) [Entitic mass] 31.5 pg 26.7-34.0 [facility] MCH (RBC) [Entitic mass] MCH [Entitic ma ss] by Automated count 26.7-34.0 [facility] MCHC Auto (RBC) [Mass/Vol]on 04-06-2024 MCHC (RBC) [Mass/Vol] 33.1 g/dL 29.9-35.2 Fir [facility] MCHC (RBC) [Mass/Vol] MCHC [Mass/volume] by Automated count 29.9-35.2 [facility] MCV Auto (RBC) [Entitic vol] on 04-06-2024 MCV (RBC) [Entitic vol] 95.2 fL 81.0-99.0 F [facility] MCV (RBC) [Entitic vol] MCV [Entitic vol ume] by Automated count 81.0-99.0 [facility] Monocytes Auto (Bld) [#/Vol] on 04-06-2024 Monocytes (Bld) [#/Vol] 0.7 10 3/uL 0.3-0.8 [facility] Monocytes (Bld) [#/Vol] Automated blood monocyte count 0.3-0.8 [facility] Monocytes/100 WBC Auto (Bld) on 04-06-2024 Monocytes/100 WBC (Bld) 7.6 % 1.7-12.0 F [facility] Monocytes/100 WBC (Bld) Automated monocyte % 1. 7-12.0 [facility] Neutrophils Auto (Bld) [#/Vo l]on 04-06-2024 Neutrophils (Bld) [#/Vol] 6.9 10 3/uL High 1.4-6.5 [facility] Neutrophils (Bld) [#/Vol] Neutrophils [#/volume] in Blood by Automated count High 1.4-6.5 [facility] Neutrophils/100 WBC Auto (Bl d)on 04-06-2024 Neutrophils/100 WBC (Bld) 76.9 % High 43.0-75.0 [facility] Neutrophils/100 WBC (Bld) Automated neutrophil % High 43.0-75.0 [facility] No Panel Informationon 04-06 25-Hydroxy Vitamin D Total 49.0 ng/mL [facility] Comment on above: <20 ng/mL Vit D defi cient20-<30 ng/mL Vit D ojvqzmyagazt46-024 ng/mL Vit D sufficient>100 ng/mL Potential Toxicity Eosinophils # (Auto) 0.1 10 3/uL 0.0-0.7 [facility] Immature Granulocyte # (Auto) 0.05 10 3/uL High 0.00-0.03 [facility] Total Complement (CH50) >60 U/mL >41 F [facility] Comment on above: Age Male [...] determine out of range values.Performed at: - [address] [id number] Director: Santiago Madrid PhD, Phone: [phone] Urine Bacteria TRACE #/HPF Abnormal NONE SEEN [facility] Urine Occult Blood Negative NEGATIVE [facility] Urine Other Casts NONE SEEN #/LPF NONE SEEN [facility] Urine Other Crystals None Seen #/HPF None Seen [facility] Urine RBC 2-5 #/HPF Abnormal 0-2 [facility] Urine Squamous Epithelial Cells FEW #/LPF Abnormal NONE/RARE [facility] Urine Transitional Epithelial Cells FEW #/LPF Abnormal NONE SEEN [facility] Urine WBC 75-100 #/HPF Abnormal NONE SEEN [facility] Platelet mean volume Auto (B ld) [Entitic vol]on 04-06-2024 Platelet mean volume (Bld) [Entitic vol] 9.6 fL 9.5-13.5 [facility] Platelet mean volume (Bld) [Entitic vol] Platelet mean volume [Entitic volume] in Blood by Automated count 9.5-13.5 [facility] Platelets Auto (Bld) [#/Vol] on 04-06-2024 Platelets (Bld) [#/Vol] 232 10 3/uL 150-450 [facility] Platelets (Bld) [#/Vol] Platelets [#/vol ume] in Blood by Automated count 150-450 [facility] RBC Auto (Bld) [#/Vol]on RBC (Bld) [#/Vol] 4.13 10 6/uL Low 4.20-5.40 [facility] RBC (Bld) [#/Vol] Erythrocytes [#/volume] in Blood by Automated count Low 4.20-5.40 [facility] Serum or plasma albumin/glob ulin mass ratioon 04-06-2024 Albumin/Globulin [Mass ratio] 1.2 {ratio} [facility] Albumin/Globulin [Mass ratio] Serum or plasma albumin/globulin mass ratio [facility] Serum or plasma anion gap de terminationon 04-06-2024 Anion gap [Moles/Vol] 15.9 mmol/L Fi [facility] Anion gap [Moles/Vol] Serum or plasma an ion gap determination [facility] Serum or plasma complement C 3 measurement (mass/volume)on 04-06-2024 Complement C3 [Mass/Vol] 112 mg/dL 82-167 [facility] Complement C3 [Mass/Vol] Serum or plasma complement C3 measurement (mass/volume) -167 [facility] Serum or plasma complement C 4 measurement (mass/volume)on 04-06-2024 Complement C4 [Mass/Vol] 24 mg/dL [facility] Comment on above: Performed at: [address] [id number] Director: Santiago Madrid PhD, Phone: [phone] Complement C4 [Mass/Vol] Serum or plasma complement C4 measurement (mass/volume) [facility] Comment on above: Performed at: [facility] [address] [id number] Director: Santiago Madrid PhD, Phone: [phone] Alanine aminotransferase [En zymatic activity/volume] in Serum or PlasmaOrdered By: PROVIDER TEMP on 04-04-2024 ALT [Catalytic activity/Vol] 27 U/L Normal [facility] Comment on above: Performed By: #### H EPATIC, CBC, LIPASE, BMP #### [facility] [address] ALT [Catalytic activity/Vol] Alanine aminotransferase [Enzymatic activity/volume] in Serum or Plasma [facility] Albumin [Mass/volume] in Ser um or Plasma by Bromocresol green (BCG) dye binding methoOrdered By: PROVIDER TEMP on 04-04-2024 Albumin BCG dye [Mass/Vol] 4.3 g/dL 3.5-5.7 [facility] Albumin BCG dye [Mass/Vol] Albumin [Mass/volume] in Serum or Plasma by Bromocresol green (BCG) dye binding metho 3.5-5.7 [facility] Alkaline phosphatase [Enzyma tic activity/volume] in Serum or PlasmaOrdered By: PROVIDER TEMP on 04-04-2024 ALP [Catalytic activity/Vol] 35 U/L Normal 34-104 [facility] Comment on above: Performed By: #### H EPATIC, CBC, LIPASE, BMP #### [facility] [address] ALP [Catalytic activity/Vol] Alkaline phosphatase [Enzymatic activity/volume] in Serum or Plasma 34-104 [facility] Appearance of UrineOrdered B y: PROVIDER TEMP on 04-04-2024 Appearance (U) Urine appearance Abnormal Clear [facility] Aspartate aminotransferase [ Enzymatic activity/volume] in Serum or PlasmaOrdered By: PROVIDER TEMP on 04-04-2024 AST [Catalytic activity/Vol] 35 U/L Normal 13-39 [facility] Comment on above: Performed By: #### H EPATIC, CBC, LIPASE, BMP #### [address] AST [Catalytic activity/Vol] Aspartate aminotransferase [Enzymatic activity/volume] in Serum or Plasma 13-39 [facility] Automated basophil %Ordered By: PROVIDER TEMP on 04-04-2024 Basophils/100 WBC (Bld) 0.9 % Normal . F [facility] Comment on above: Performed By: #### H EPATIC, CBC, LIPASE, BMP #### [address] Automated basophil countOrde red By: PROVIDER TEMP on 04-04-2024 Basophils (Bld) [#/Vol] 0.1 10*3/uL Normal 0.0-0.2 [facility] Comment on above: Result Comment: PERF ORMED BY: [place] [address] PATHOLOGIST [facility] [facility] ROSLYN TALLEY M.D. Performed By: #### H EPATIC, CBC, LIPASE, BMP #### [address] Automated blood monocyte cou ntOrdered By: PROVIDER TEMP on 04-04-2024 Monocytes (Bld) [#/Vol] 0.7 10*3/uL Normal 0.0-0.8 [facility] Comment on above: Performed By: #### H EPATIC, CBC, LIPASE, BMP #### [address] Automated eosinophil %Ordere d By: PROVIDER TEMP on 04-04-2024 Eosinophils/100 WBC (Bld) 0.5 % Normal . [facility] Comment on above: Performed By: #### H EPATIC, CBC, LIPASE, BMP #### [address] Automated eosinophil countOr dered By: PROVIDER TEMP on 04-04-2024 Eosinophils (Bld) [#/Vol] 0.1 10*3/uL Normal 0.0-0.45 [facility] Comment on above: Performed By: #### H EPATIC, CBC, LIPASE, BMP #### [address] [address] [place] Automated monocyte %Ordered By: PROVIDER TEMP on 04-04-2024 Monocytes/100 WBC (Bld) 6.6 % Normal . F [facility] Comment on above: Performed By: #### H EPATIC, CBC, LIPASE, BMP #### [facility] [address] Automated neutrophil %Ordere d By: PROVIDER TEMP on 04-04-2024 Neutrophils/100 WBC (Bld) 81.7 % Normal . [facility] Comment on above: Performed By: #### H EPATIC, CBC, LIPASE, BMP #### [facility] [address] [place] [address] Bacteria [Presence] in Urine by AutomatedOrdered By: PROVIDER TEMP on 04-04-2024 Bacteria Auto Ql (U) Rare [HPF] None Seen [facility] Bacteria Auto Ql (U) Bacteria [Presence] in Urine by Automated None Seen [facility] Basic Metabolic Panelon 03-08 Creatinine Clr Calc Pharmacy 62.82 Normal [facility] Comment on above: Performed By: #### H EPATIC, CBC, LIPASE, BMP #### [facility] [address] [place] [address] GFR/1.73 sq M.predicted MDRD (S/P/Bld) [Vol rate/Area] mL/min/{1.73_m2} Normal [facility] Comment on above: Performed By: #### H EPATIC, CBC, LIPASE, BMP #### [facility] [address] [place] [address] Basophils Auto (Bld) [#/Vol] Ordered By: PROVIDER TEMP on 04-04-2024 Basophils (Bld) [#/Vol] Automated basoph il count 0.0-0.2 [facility] Basophils/100 WBC Auto (Bld) Ordered By: PROVIDER TEMP on 04-04-2024 Basophils/100 WBC (Bld) Automated basophil % . [facility] Bilirubin Test strip Ql (U)O rdered By: PROVIDER TEMP on 04-04-2024 Bilirubin Ql (U) 1+ High Negative [facility] Bilirubin Ql (U) Bilirubin.total [Presence] in Urine by Test strip High Negative [facility] Bilirubin.direct [Mass/volum e] in Serum or PlasmaOrdered By: PROVIDER TEMP on 04-04-2024 Bilirubin.direct [Mass/Vol] 0.20 mg/dL High 0.03-0.18 [facility] Bilirubin.direct [Mass/Vol] Bilirubin.direct [Mass/volume] in Serum or Plasma High 0.03-0.18 [facility] Bilirubin.total [Mass/volume ] in Serum or PlasmaOrdered By: PROVIDER TEMP on 04-04-2024 Bilirubin [Mass/Vol] 0.5 mg/dL Normal 0.3-1.0 [facility] Comment on above: Performed By: #### H EPATIC, CBC, LIPASE, BMP #### [address] Bilirubin [Mass/Vol] Bilirubin.total [Mass/volume] in Serum or Plasma 0.3-1.0 [facility] CT abdomen pelvis w conon CT abdomen pelvis w con [facility] Main [place] [address] [place] [address] CT Scan Report Signed Patient: Genna Herrera MR#: [id number] 52 : 1950 Acct:[id number] Age/Sex: 73 / F ADM Date: 04/04/24 Loc: ER Room: Type: PRE ER Attending Dr: Copies to: Sabrina Gómez APRN TEMHolli, PROVIDER Ordering Provider: Sabrina Gómez APRN Date [...] Randall Pierre M.D.04/04/2024 4:30 PM Dictation Location: [place] [address] Transcribed By: [facility] 04/04/24 1630 Dictated By: Randall Pierre DO 04/04/24 1623 Signed By: 04/04/24 1630 Normal [facility] Calcium [Mass/volume] in Ser um or PlasmaOrdered By: PROVIDER TEMP on 04-04-2024 Calcium [Mass/Vol] 8.3 mg/dL Low 8.6-10.3 [facility] Comment on above: Performed By: #### H EPATIC, CBC, LIPASE, BMP #### [facility] [address] Calcium [Mass/Vol] Calcium [Mass/volume ] in Serum or Plasma Low 8.6-10.3 [facility] Carbon dioxide, total [Moles /volume] in Serum or PlasmaOrdered By: PROVIDER TEMP on 04-04-2024 CO2 [Moles/Vol] 25.0 mmol/L Normal 21.0-31.0 [facility] Comment on above: Performed By: #### H EPATIC, CBC, LIPASE, BMP #### [facility] [address] [place] [id number] [place] CO2 [Moles/Vol] Carbon dioxide, tota l [Moles/volume] in Serum or Plasma 21.0-31.0 [facility] Chloride [Moles/volume] in S rox or PlasmaOrdered By: PROVIDER TEMP on 04-04-2024 Chloride [Moles/Vol] 106 mmol/L Normal 98-107 [facility] Comment on above: Performed By: #### H EPATIC, CBC, LIPASE, BMP #### [facility] [address] Chloride [Moles/Vol] Chloride [Moles/volume] in Serum or Plasma 98-107 [facility] Color Auto (U)Ordered By: [place] OVIDER TEMP on 04-04-2024 Color (U) Color of Urine by Auto Yellow [facility] Color of Urine by AutoOrdere d By: PROVIDER TEMP on 04-04-2024 Color (U) Light-yellow Normal Yellow [facility] Comment on above: Order Comment: Name Collection Type:: Clean-Voided Midstream Performed By: #### A KRISTEN PERES ####[facility] Complete Blood Count Auto Di ffon 04-04-2024 Mean Corpuscular HGB Conc 33.4 g/dL Normal 32.0-35.0 [facility] Comment on above: Performed By: #### H EPATIC, CBC, LIPASE, BMP #### [address] Monocytes/100 WBC (Bld) 16.61 % Normal 0.00-20.00 T millie [facility] Comment on above: Performed By: #### H EPATIC, CBC, LIPASE, BMP #### [facility] [address] [place] [address] NRBC% 0.1 /100{WBC} Normal 0-0.5 [facility] Comment on above: Performed By: #### H EPATIC, CBC, LIPASE, BMP #### [facility] [address] [place] [address] [place] Creatinine [Mass/volume] in Serum or PlasmaOrdered By: PROVIDER TEMP on 04-04-2024 Creatinine [Mass/Vol] 0.62 mg/dL Normal 0.60-1.20 [facility] Comment on above: Performed By: #### H EPATIC, CBC, LIPASE, BMP #### [place] [address] [place] Creatinine [Mass/Vol] Creatinine [Mass/volume] in Serum or Plasma 0.60-1.20 [facility] Crystals [Presence] in Urine by AutomatedOrdered By: PROVIDER TEMP on 04-04-2024 Crystals Auto Ql (U) Rare [HPF] [facility] Crystals Auto Ql (U) Crystals [Presence] in Urine by Automated [facility] Dipstick and Microscopicon 0 04-04-2024 Bacteria,Urine Rare Normal None Seen [facility] Comment on above: Order Comment: Name Collection Type:: Clean-Voided Midstream Performed By: #### A DDONUAPLUS, CUU ####[place] [address] [place] [address] [facility] Bilirubin,Urine 1+ High Negative [facility] Comment on above: Order Comment: Name Collection Type:: Clean-Voided Midstream Performed By: #### A DDONUAPLUS, CUU ####[address] [address] [facility] [place] Yeast,Urine Rare High None Seen [facility] Comment on above: Order Comment: Name Collection Type:: Clean-Voided Midstream Result Comment: PERF ORMED BY: [facility] [address] [place] [address] PATHOLOGIST [employer] [facility] ROSLYN TALLEY M.D. Performed By: #### A DDONUAPLUS, CUU ####[address] [address] [facility] Glucose Ql (U) Normal Normal Normal [facility] Comment on above: Order Comment: Name Collection Type:: Clean-Voided Midstream Performed By: #### A DDONUAPLUS, CUU ####[place] [address] [place] [address] [facility] Hyaline Casts,Urine 0-8 Normal 0-8 [facility] Comment on above: Order Comment: Name Collection Type:: Clean-Voided Midstream Performed By: #### A DDONUAPLUS, CUU ####[place] [address] [place] [address] [facility] Mucus,Urine Rare Normal [facility] Comment on above: Order Comment: Name Collection Type:: Clean-Voided Midstream Performed By: #### A DDONUAPLUS, CUU ####[place] [address] [place] [address] [place] Nitrite,Urine Negative Normal Negative [facility] Comment on above: Order Comment: Name Collection Type:: Clean-Voided Midstream Performed By: #### A DDONUAPLUS, CUU ####[place] [address] [place] [address] [facility] Occult Blood,Urine 1+ High Negative [facility] Comment on above: Order Comment: Name Collection Type:: Clean-Voided Midstream Result Comment: PERF ORMED BY: [facility] [address] [place] [id number] PATHOLOGIST [facility] [facility] ROSLYN TALLEY M.D. Performed By: #### A DDONUAPLUS, CUU ####[address] [address] [facility] Othe Crystals,Urine Rare Normal [facility] Comment on above: Order Comment: Name Collection Type:: Clean-Voided Midstream Performed By: #### A DDONUAPLUS, CUU ####[address] [address] [place] Protein,Urine Negative Normal Negative [facility] Comment on above: Order Comment: Name Collection Type:: Clean-Voided Midstream Performed By: #### A DDONUAPLUS, CUU ####[address] [address] [facility] RBC,Urine 3-4 Normal 0-4 [facility] Comment on above: Order Comment: Name Collection Type:: Clean-Voided Midstream Performed By: #### A DDONUAPLUS, CUU ####[address] [address] [place] Specificy Hooper,Urine 1.006 Normal 1.001-1.030 [facility] Comment on above: Order Comment: Name Collection Type:: Clean-Voided Midstream Performed By: #### A DDONUAPLUS, CUU ####[address] [address] [place] Squamous Epithelial Cell,Urine 1-2 Normal 0-2 [facility] Comment on above: Order Comment: Name Collection Type:: Clean-Voided Midstream Performed By: #### A DDONUAPLUS, CUU ####[place] [address] [address] Urobilinogen,Urine Normal Normal Normal [facility] Comment on above: Order Comment: Name Collection Type:: Clean-Voided Midstream Performed By: #### A DDONUAPLUS, CUU ####[address] WBC CLUMP, Urine Many High None Seen [facility] Comment on above: Order Comment: Name Collection Type:: Clean-Voided Midstream Performed By: #### A DDONUAPLUS, CUU ####[address] WBC,Urine Innumerable High 0-4 [facility] Comment on above: Order Comment: Name Collection Type:: Clean-Voided Midstream Performed By: #### A DDONUAPLUS, CUU ####[place] [id number] [facility] ECG 12 lead ECGon 04-04-2024 ECG 12 lead ECG [facility] [place] [address] Electrocardiograph Report Signed Patient: Genna Herrera MR#: [id number] 52 : 1950 Acct:[id number] Age/Sex: 73 / F ADM Date: 04/04/24 [...] ms Normal sinus rhythm Confirmed by Neville ROWE DO ([id number]) on 04/04/2024 3:17:04 PM Referred By: Electronically Signed By: Neville ROWE DO Transcribed By: MUS Signed By Neville Rowe, 0 04/04/24 1517 Normal [facility] Eosinophils Auto (Bld) [#/Vo l]Ordered By: PROVIDER TEMP on 04-04-2024 Eosinophils (Bld) [#/Vol] Automated eosinophil count 0.0-0.45 [facility] Eosinophils/100 WBC Auto (Bl d)Ordered By: PROVIDER TEMP on 04-04-2024 Eosinophils/100 WBC (Bld) Automated eosinophil % . [facility] Epithelial cells.squamous [# /area] in Urine sediment by Automated countOrdered By: PROVIDER TEMP on 04-04-2024 Epithelial cells.squamous Auto (Urine sed) [#/Area] 1-2 [HPF] 0-2 [facility] Epithelial cells.squamous Auto (Urine sed) [#/Area] Epithelial cells.squamous [#/area] in Urine sediment by Automated count 0-2 [facility] Erythrocyte distribution wid th Auto (RBC) [Ratio]Ordered By: PROVIDER TEMP on 04-04-2024 Erythrocyte distribution width (RBC) [Ratio] Erythrocyte distribution width [Ratio] by Automated count 11.9-15.3 [facility] Erythrocyte distribution wid th [Ratio] by Automated countOrdered By: PROVIDER TEMP on 04-04-2024 Erythrocyte distribution width (RBC) [Ratio] 14.3 % Normal 11.9-15.3 [facility] Comment on above: Performed By: #### H EPATIC, CBC, LIPASE, BMP #### [facility] [address] Erythrocytes [#/area] in Uri ne sediment by Automated countOrdered By: PROVIDER TEMP on 04-04-2024 RBC Auto (Urine sed) [#/Area] 3-4 [HPF] 0-4 [facility] RBC Auto (Urine sed) [#/Area] Erythrocytes [#/area] in Urine sediment by Automated count 0-4 [facility] Erythrocytes [#/volume] in B lood by Automated countOrdered By: PROVIDER TEMP on 04-04-2024 RBC (Bld) [#/Vol] 4.20 10*6/uL Normal 3.60-5.00 [facility] Comment on above: Performed By: #### H EPATIC, CBC, LIPASE, BMP #### [facility] [address] [place] [phone] [facility] Globulin Calc (S) [Mass/Vol] Ordered By: PROVIDER TEMP on 04-04-2024 Globulin (S) [Mass/Vol] Serum globulin measurement by calculation (mass/volume) [facility] Glucose [Mass/volume] in Ser um or PlasmaOrdered By: PROVIDER TEMP on 04-04-2024 Glucose [Mass/Vol] 70 mg/dL Normal 70-100 [facility] Comment on above: ADA recommended refe rence rangeRandom Glucose Reference Range is dependent on time and content of last meal. Glucose of more than 200 mg/dL in a nonstressed, ambulatory subject supports the diagnosis of Diabetes Mellitus. Result Comment: [place] Glucose Reference Range is dependent on time and content of last meal. Glucose of more than 200 mg/dL in a nonstressed, ambulatory subject supports the diagnosis of Diabetes Mellitus. ADA recommended reference range Performed By: #### H EPATIC, CBC, LIPASE, BMP #### [facility] [address] [place] [address] [facility] Glucose [Mass/Vol] Glucose [Mass/volume ] in Serum or Plasma 70-100 [facility] Comment on above: ADA recommended refe rence rangeRandom Glucose Reference Range is dependent on time and content of last meal. Glucose of more than 200 mg/dL in a nonstressed, ambulatory subject supports the diagnosis of Diabetes Mellitus. Glucose [Mass/volume] in Uri ne by Test stripOrdered By: PROVIDER TEMP on 04-04-2024 Glucose Test strip (U) [Mass/Vol] Normal mg/dL Normal [facility] Glucose Test strip (U) [Mass/Vol] Glucose [Mass/volume] in Urine by Test strip Normal [facility] Hematocrit Auto (Bld) [Volum e fraction]Ordered By: PROVIDER TEMP on 04-04-2024 Hematocrit (Bld) [Volume fraction] Hematocrit [Volume Fraction] of Blood by Automated count 34.0-46.4 [facility] Hematocrit [Volume Fraction] of Blood by Automated countOrdered By: PROVIDER TEMP on 04-04-2024 Hematocrit (Bld) [Volume fraction] 39.4 % Normal 34.0-46.4 [facility] Comment on above: Performed By: #### H EPATIC, CBC, LIPASE, BMP #### [address] Hemoglobin Test strip Ql (U) Ordered By: PROVIDER TEMP on 04-04-2024 Hemoglobin Ql (U) 1+ High Negative [facility] Hemoglobin Ql (U) Hemoglobin [Presence ] in Urine by Test strip High Negative [facility] Hemoglobin [Mass/volume] in BloodOrdered By: PROVIDER TEMP on 04-04-2024 Hemoglobin (Bld) [Mass/Vol] 13.2 g/dL Normal 11.8-15.4 [facility] Comment on above: Performed By: #### H EPATIC, CBC, LIPASE, BMP #### [address] Hemoglobin (Bld) [Mass/Vol] Hemoglobin [Mass/volume] in Blood 11.8-15.4 [facility] Hepatic Panelon 04-04-2024 Albumin [Mass/Vol] 4.3 g/dL Normal 3.5-5.7 [facility] Comment on above: Performed By: #### H EPATIC, CBC, LIPASE, BMP #### [address] Bilirubin,Indirect 0.3 mg/dL Normal [facility] Comment on above: Performed By: #### H EPATIC, CBC, LIPASE, BMP #### [address] Bilirubin.indirect [Mass/Vol] 0.20 mg/dL High 0.03-0.18 [facility] Comment on above: Performed By: #### H EPATIC, CBC, LIPASE, BMP #### [address] Hyaline casts [#/area] in Ur ine sediment by Automated countOrdered By: PROVIDER TEMP on 04-04-2024 Hyaline casts Auto (Urine sed) [#/Area] 0-8 [LPF] 0-8 [facility] Hyaline casts Auto (Urine sed) [#/Area] Hyaline casts [#/area] in Urine sediment by Automated count 0-8 [facility] Ketones Test strip Ql (U)Ord ered By: PROVIDER TEMP on 04-04-2024 Ketones Ql (U) Ketones [Presence] i n Urine by Test strip High Negative [facility] Ketones [Presence] in Urine by Test stripOrdered By: PROVIDER TEMP on 04-04-2024 Ketones Ql (U) Trace High Negative [facility] Comment on above: Order Comment: Name Collection Type:: Clean-Voided Midstream Performed By: #### A DDONUAAMALIA, CUU ####[facility] [id number] Laboratory - Microbiology an d Antimicrobial susceptibilityOrdered By: PROVIDER TEMP on 04-04-2024 Bacteria identified Cx Nom (U) No Growth 2 Days [facility] Leukocyte clumps [Presence] in Urine by AutomatedOrdered By: PROVIDER TEMP on 04-04-2024 Leukocyte clumps Auto Ql (U) Many [LPF] High None Seen [facility] Leukocyte clumps Auto Ql (U) Leukocyte clumps [Presence] in Urine by Automated High None Seen [facility] Leukocyte esterase [Presence ] in Urine by Test stripOrdered By: PROVIDER TEMP on 04-04-2024 Leukocyte esterase Test strip Ql (U) 4+ High Negative [facility] Comment on above: Order Comment: Name Collection Type:: Clean-Voided Midstream Performed By: #### A DDONUAAMALIA, CUU ####[facility] [id number] [place] [id number] [facility] Leukocyte esterase Test strip Ql (U) Leukocyte esterase [Presence] in Urine by Test strip High Negative [facility] Leukocytes [#/area] in Urine sediment by Automated countOrdered By: PROVIDER TEMP on 04-04-2024 WBC Auto (Urine sed) [#/Area] Innumerable [HPF] High 0-4 [facility] WBC Auto (Urine sed) [#/Area] Leukocytes [#/area] in Urine sediment by Automated count High 0-4 [facility] Leukocytes [#/volume] correc sandip for nucleated erythrocytes in Blood by Automated counOrdered By: PROVIDER TEMP on 04-04-2024 WBC corrected for nucl RBC Auto (Bld) [#/Vol] 10.5 10*3/uL 3.8-11.6 [facility] WBC corrected for nucl RBC Auto (Bld) [#/Vol] Leukocytes [#/volume] corrected for nucleated erythrocytes in Blood by Automated coun 3.8-11.6 [facility] Leukocytes [#/volume] in Blo od by Automated countOrdered By: PROVIDER TEMP on 04-04-2024 WBC (Bld) [#/Vol] 10.5 10*3/uL Normal 3.8-11.6 [facility] Comment on above: Performed By: #### H EPATIC, CBC, LIPASE, BMP #### [facility] [address] [place] [address] [place] Lipase [Enzymatic activity/v olume] in Serum or PlasmaOrdered By: PROVIDER TEMP on 04-04-2024 Lipase [Catalytic activity/Vol] 16.0 U/L Normal 11.0-82.0 [facility] Comment on above: Result Comment: PERF ORMED BY: [place] [address] PATHOLOGIST [employer] ROSLYN TALLEY M.D. Performed By: #### H EPATIC, CBC, LIPASE, BMP #### [facility] [address] Lipase [Catalytic activity/Vol] Lipase [Enzymatic activity/volume] in Serum or Plasma 11.0-82.0 [facility] Lymphocytes Auto (Bld) [#/Vo l]Ordered By: PROVIDER TEMP on 04-04-2024 Lymphocytes (Bld) [#/Vol] Lymphocytes [#/volume] in Blood by Automated count 1.00-4.8 [facility] Lymphocytes [#/volume] in Bl ood by Automated countOrdered By: PROVIDER TEMP on 04-04-2024 Lymphocytes (Bld) [#/Vol] 1.1 10*3/uL Normal 1.00-4.8 [facility] Comment on above: Performed By: #### H EPATIC, CBC, LIPASE, BMP #### [facility] [address] Lymphocytes/100 WBC Auto (Bl d)Ordered By: PROVIDER TEMP on 04-04-2024 Lymphocytes/100 WBC (Bld) Lymphocytes/100 leukocytes in Blood by Automated count . [facility] Lymphocytes/100 leukocytes i n Blood by Automated countOrdered By: PROVIDER TEMP on 04-04-2024 Lymphocytes/100 WBC (Bld) 10.3 % Normal . [facility] Comment on above: Performed By: #### H EPATIC, CBC, LIPASE, BMP #### [facility] [address] MCH Auto (RBC) [Entitic mass ]Ordered By: PROVIDER TEMP on 04-04-2024 MCH (RBC) [Entitic mass] MCH [Entitic ma ss] by Automated count 24.7-34.3 [facility] MCH [Entitic mass] by Automa sandip countOrdered By: PROVIDER TEMP on 04-04-2024 MCH (RBC) [Entitic mass] 31.3 pg Normal 24.7-34.3 [facility] Comment on above: Performed By: #### H EPATIC, CBC, LIPASE, BMP #### [facility] [address] MCHC Auto (RBC) [Mass/Vol]Or dered By: PROVIDER TEMP on 04-04-2024 MCHC (RBC) [Mass/Vol] 33.4 g/dL 32.0-35.0 [facility] MCHC (RBC) [Mass/Vol] MCHC [Mass/volume] by Automated count 32.0-35.0 [facility] MCV Auto (RBC) [Entitic vol] Ordered By: PROVIDER TEMP on 04-04-2024 MCV (RBC) [Entitic vol] MCV [Entitic vol ume] by Automated count 80-100 [facility] MCV [Entitic volume] by Auto mated countOrdered By: PROVIDER TEMP on 04-04-2024 MCV (RBC) [Entitic vol] 93.9 fL Normal 80-100 [facility] Comment on above: Performed By: #### H EPATIC, CBC, LIPASE, BMP #### [facility] [address] [place] [address] [place] Monocyte distribution width [Entitic volume] in Blood by AutomatedOrdered By: PROVIDER TEMP on 04-04-2024 Monocyte distribution width Auto (Bld) [Entitic vol] 16.61 % 0.00-20.00 [facility] Monocyte distribution width Auto (Bld) [Entitic vol] Monocyte distribution width [Entitic volume] in Blood by Automated 0.00-20.00 [facility] Monocytes Auto (Bld) [#/Vol] Ordered By: PROVIDER TEMP on 04-04-2024 Monocytes (Bld) [#/Vol] Automated blood monocyte count 0.0-0.8 [facility] Monocytes/100 WBC Auto (Bld) Ordered By: PROVIDER TEMP on 04-04-2024 Monocytes/100 WBC (Bld) Automated monocyte % . [facility] Mucus [Presence] in Urine by AutomatedOrdered By: PROVIDER TEMP on 04-04-2024 Mucus Auto Ql (U) Rare [LPF] [facility] Mucus Auto Ql (U) Mucus [Presence] in Urine by Automated [facility] Neutrophils Auto (Bld) [#/Vo l]Ordered By: PROVIDER TEMP on 04-04-2024 Neutrophils (Bld) [#/Vol] Neutrophils [#/volume] in Blood by Automated count High 1.8-7.7 [facility] Neutrophils [#/volume] in Bl ood by Automated countOrdered By: PROVIDER TEMP on 04-04-2024 Neutrophils (Bld) [#/Vol] 8.6 10*3/uL High 1.8-7.7 [facility] Comment on above: Performed By: #### H EPATIC, CBC, LIPASE, BMP #### [facility] [address] [place] [address] [place] Neutrophils/100 WBC Auto (Bl d)Ordered By: PROVIDER TEMP on 04-04-2024 Neutrophils/100 WBC (Bld) Automated neutrophil % . [facility] Nitrite Test strip Ql (U)Ord ered By: PROVIDER TEMP on 04-04-2024 Nitrite Ql (U) Negative Negative [facility] Nitrite Ql (U) Nitrite [Presence] i n Urine by Test strip Negative [facility] No Panel InformationOrdered By: PROVIDER TEMP on 04-04-2024 Estimated GFR (CKD-EPI) > 60.0 mL/Min [facility] Creatinine Clearance (Chem 62.82 [facility] Nucleated erythrocytes [Pres ence] in Blood by Automated countOrdered By: PROVIDER TEMP on 04-04-2024 Nucleated RBC Auto Ql (Bld) 0.1 /100{WBC} 0-0.5 [facility] Nucleated RBC Auto Ql (Bld) Nucleated erythrocytes [Presence] in Blood by Automated count 0-0.5 [facility] Platelet mean volume Auto (B ld) [Entitic vol]Ordered By: PROVIDER TEMP on 04-04-2024 Platelet mean volume (Bld) [Entitic vol] Platelet mean volume [Entitic volume] in Blood by Automated count 6.3-10.7 [facility] Platelet mean volume [Entiti c volume] in Blood by Automated countOrdered By: PROVIDER TEMP on 04-04-2024 Platelet mean volume (Bld) [Entitic vol] 8.1 fL Normal 6.3-10.7 [facility] Comment on above: Performed By: #### H EPATIC, CBC, LIPASE, BMP #### [facility] [address] [place] [address] [place] Platelets Auto (Bld) [#/Vol] Ordered By: PROVIDER TEMP on 04-04-2024 Platelets (Bld) [#/Vol] Platelets [#/vol ume] in Blood by Automated count 150-450 [facility] Platelets [#/volume] in Bloo d by Automated countOrdered By: PROVIDER TEMP on 04-04-2024 Platelets (Bld) [#/Vol] 226 10*3/uL Normal 150-450 [facility] Comment on above: Performed By: #### H EPATIC, CBC, LIPASE, BMP #### [facility] [address] [place] [address] [place] Potassium [Moles/volume] in Serum or PlasmaOrdered By: PROVIDER TEMP on 04-04-2024 Potassium [Moles/Vol] 3.6 mmol/L Normal 3.5-5.1 [facility] Comment on above: Performed By: #### H EPATIC, CBC, LIPASE, BMP #### [address] Potassium [Moles/Vol] Potassium [Moles/volume] in Serum or Plasma 3.5-5.1 [facility] Protein Test strip (U) [Mass /Vol]Ordered By: PROVIDER TEMP on 04-04-2024 Protein (U) [Mass/Vol] Negative Negative [facility] Protein (U) [Mass/Vol] Protein [Mass/vol ume] in Urine by Test strip Negative [facility] Protein [Mass/volume] in Ser um or PlasmaOrdered By: PROVIDER TEMP on 04-04-2024 Protein [Mass/Vol] 6.6 g/dL Normal 6.4-8.9 [facility] Comment on above: Performed By: #### H EPATIC, CBC, LIPASE, BMP #### [facility] [address] [place] [address] Protein [Mass/Vol] Protein [Mass/volume ] in Serum or Plasma 6.4-8.9 [facility] RBC Auto (Bld) [#/Vol]Ordere d By: PROVIDER TEMP on 04-04-2024 RBC (Bld) [#/Vol] Erythrocytes [#/volume] in Blood by Automated count 3.60-5.00 [facility] Serum globulin measurement b y calculation (mass/volume)Ordered By: PROVIDER TEMP on 04-04-2024 Globulin (S) [Mass/Vol] 2.3 g/dL Normal F [facility] Comment on above: Performed By: #### H EPATIC, CBC, LIPASE, BMP #### [facility] [address] [place] [address] Serum or plasma albumin/glob ulin mass ratioOrdered By: PROVIDER TEMP on 04-04-2024 Albumin/Globulin [Mass ratio] 1.9 {ratio} Normal [facility] Comment on above: Performed By: #### H EPATIC, CBC, LIPASE, BMP #### [address] Albumin/Globulin [Mass ratio] Serum or plasma albumin/globulin mass ratio [facility] Serum or plasma anion gap de terminationOrdered By: PROVIDER TEMP on 04-04-2024 Anion gap [Moles/Vol] 12.6 mmol/L Normal 6.0-15.0 [facility] Comment on above: Performed By: #### H EPATIC, CBC, LIPASE, BMP #### [facility] [address] Anion gap [Moles/Vol] Serum or plasma an ion gap determination 6.0-15.0 [facility] Serum or plasma non-glucuron idated bilirubin measurement (mass/volume)Ordered By: PROVIDER TEMP on 04-04-2024 Bilirubin.indirect [Mass/Vol] 0.3 mg/dL [facility] Bilirubin.indirect [Mass/Vol] Serum or plasma non-glucuronidated bilirubin measurement (mass/volume) [facility] Sodium [Moles/volume] in Ser um or PlasmaOrdered By: PROVIDER TEMP on 04-04-2024 Sodium [Moles/Vol] 140 mmol/L Normal 136-145 [facility] Comment on above: Performed By: #### H EPATIC, CBC, LIPASE, BMP #### [facility] [address] Sodium [Moles/Vol] Sodium [Moles/volume ] in Serum or Plasma 136-145 [facility] Specific gravity Test strip (U) [Rel density]Ordered By: PROVIDER TEMP on 04-04-2024 Specific gravity (U) [Rel density] 1.006 1.001-1.030 [facility] Specific gravity (U) [Rel density] Specific gravity of Urine by Test strip 1.001-1.030 [facility] Urea nitrogen [Mass/volume] in Serum or PlasmaOrdered By: PROVIDER TEMP on 04-04-2024 Urea nitrogen [Mass/Vol] 11 mg/dL Normal 7-25 [facility] Comment on above: Performed By: #### H EPATIC, CBC, LIPASE, BMP #### [facility] [address] [place] [id number] [facility] Urea nitrogen [Mass/Vol] Urea nitrogen [Mass/volume] in Serum or Plasma 01-27 [facility] Urine Cultureon 04-04-2024 Bacteria identified Cx Nom (U) No Growth 2 Days PERFORMED BY: [facility] [address] [place] [address] PATHOLOGIST [employer] ROSLYN TALLEY M.D. Normal [facility] Comment on above: Performed By: #### A DDONUAPLUS, CUU ####[facility] [id number] Urine appearanceOrdered By: PROVIDER TEMP on 04-04-2024 Appearance (U) Cloudy Critically abnormal Clear [facility] Comment on above: Order Comment: Name Collection Type:: Clean-Voided Midstream Performed By: #### A DDONUAPLUS, CUU ####[place] [address] [address] Urine cultureOrdered By: PRO VIDER TEMP on 04-04-2024 Bacteria identified Cx Nom (U) Urine culture [facility] Urobilinogen Test strip (U) [Mass/Vol]Ordered By: PROVIDER TEMP on 04-04-2024 Urobilinogen (U) [Mass/Vol] Normal mg/dL Normal [facility] Urobilinogen (U) [Mass/Vol] Urobilinogen [Mass/volume] in Urine by Test strip Normal [facility] WBC Auto (Bld) [#/Vol]Ordere d By: PROVIDER TEMP on 04-04-2024 WBC (Bld) [#/Vol] Leukocytes [#/volume ] in Blood by Automated count 3.8-11.6 [facility] Yeast.budding [Presence] in Urine by Computer assisted methodOrdered By: PROVIDER TEMP on 04-04-2024 Yeast.budding Computer assisted Ql (U) Rare [HPF] High None Seen [facility] Yeast.budding Computer assisted Ql (U) Yeast.budding [Presence] in Urine by Computer assisted method High None Seen [facility] pH Test strip (U)Ordered By: PROVIDER TEMP on 04-04-2024 pH (U) pH of Urine by Test strip 5.0-9.0 [facility] pH of Urine by Test stripOrd ered By: PROVIDER TEMP on 04-04-2024 pH (U) 5.5 [pH] Normal 5.0-9.0 [facility] Comment on above: Order Comment: Name Collection Type:: Clean-Voided Midstream Performed By: #### A KRISTEN PERES ####[facility] [id number] [place] [address] [facility] Basophils Auto (Bld) [#/Vol] on 04-02-2024 Basophils (Bld) [#/Vol] 0.1 10 3/uL 0.0-0.1 [facility] Basophils (Bld) [#/Vol] Automated basoph il count 0.0-0.1 [facility] Basophils/100 WBC Auto (Bld) on 04-02-2024 Basophils/100 WBC (Bld) 0.8 % 0.2-2.0 F [facility] Basophils/100 WBC (Bld) Automated basophil % 0. 2-2.0 [facility] Eosinophils/100 WBC Auto (Bl d)on 04-02-2024 Eosinophils/100 WBC (Bld) 0.6 % Low 0.9-7.0 [facility] Eosinophils/100 WBC (Bld) Automated eosinophil % Low 0.9-7.0 [facility] Erythrocyte distribution wid th Auto (RBC) [Ratio]on 04-02-2024 Erythrocyte distribution width (RBC) [Ratio] 13.7 % 11.0-15.0 [facility] Erythrocyte distribution width (RBC) [Ratio] Erythrocyte distribution width [Ratio] by Automated count 11.0-15.0 [facility] Estimated glomerular filtrat ion rate (GFR) non- Americanon 04-02-2024 GFR/1.73 sq M.predicted among non-blacks MDRD (S/P/Bld) [Vol rate/Area] mL/min/{1.73_m2} >=60 [facility] GFR/1.73 sq M.predicted among non-blacks MDRD (S/P/Bld) [Vol rate/Area] Estimated glomerular filtration rate (GFR) non- >=60 [facility] Globulin Calc (S) [Mass/Vol] on 04-02-2024 Globulin (S) [Mass/Vol] 3.4 g/dL F [facility] Globulin (S) [Mass/Vol] Serum globulin measurement by calculation (mass/volume) [facility] Hematocrit Auto (Bld) [Volum e fraction]on 04-02-2024 Hematocrit (Bld) [Volume fraction] 42.7 % 36.0-48.0 [facility] Hematocrit (Bld) [Volume fraction] Hematocrit [Volume Fraction] of Blood by Automated count 36.0-48.0 [facility] Hemoglobin [Mass/volume] in Bloodon 04-02-2024 Hemoglobin (Bld) [Mass/Vol] 14.4 g/dL 12.0-16.0 [facility] Hemoglobin (Bld) [Mass/Vol] Hemoglobin [Mass/volume] in Blood 12.0-16.0 [facility] Laboratory - Chemistry and C hemistry - challengeon 04-02-2024 Albumin [Mass/Vol] 3.9 g/dL 3.4-5.0 [facility] ALP [Catalytic activity/Vol] 45 U/L Low 46-116 [facility] ALT [Catalytic activity/Vol] 41 U/L 14-59 [facility] AST [Catalytic activity/Vol] 35 U/L 15-37 [facility] Bilirubin [Mass/Vol] 0.5 mg/dL 0.2-1.0 [facility] Calcium [Mass/Vol] 9.6 mg/dL 8.5-10.1 [facility] Chloride [Moles/Vol] 102 mmol/L 98-107 [facility] CO2 [Moles/Vol] 25.9 mmol/L 21.0-32.0 [facility] Creatinine [Mass/Vol] 0.75 mg/dL 0.55-1.02 [facility] GFR/1.73 sq M.predicted MDRD (S/P/Bld) [Vol rate/Area] mL/min/{1.73_m2} >=60 [facility] Glucose [Mass/Vol] 100 mg/dL 74-106 [facility] Potassium [Moles/Vol] 3.9 mmol/L 3.5-5.1 [facility] Protein [Mass/Vol] 7.3 g/dL 6.4-8.2 [facility] Sodium [Moles/Vol] 138 mmol/L 136-145 [facility] Urea nitrogen [Mass/Vol] 13.0 mg/dL 7.0-18.0 [facility] Urea nitrogen/Creatinine [Mass ratio] 17.3 mg/mg [facility] Laboratory - Hematology and Cell countson 04-02-2024 Immature granulocytes/100 WBC (Bld) 0.4 % 0.0-0.5 [facility] Leukocytes [#/volume] correc sandip for nucleated erythrocytes in Blood by Automated counon 04-02-2024 WBC corrected for nucl RBC Auto (Bld) [#/Vol] 15.8 10 3/uL High 4.0-11.0 [facility] WBC corrected for nucl RBC Auto (Bld) [#/Vol] Leukocytes [#/volume] corrected for nucleated erythrocytes in Blood by Automated coun High 4.0-11.0 [facility] Lymphocytes Auto (Bld) [#/Vo l]on 04-02-2024 Lymphocytes (Bld) [#/Vol] 1.1 10 3/uL Low 1.2-3.8 [facility] Lymphocytes (Bld) [#/Vol] Lymphocytes [#/volume] in Blood by Automated count Low 1.2-3.8 [facility] Lymphocytes/100 WBC Auto (Bl d)on 04-02-2024 Lymphocytes/100 WBC (Bld) 7.1 % Low 20.5-60.0 [facility] Lymphocytes/100 WBC (Bld) Lymphocytes/100 leukocytes in Blood by Automated count Low 20.5-60.0 [facility] MCH Auto (RBC) [Entitic mass ]on 04-02-2024 MCH (RBC) [Entitic mass] 31.5 pg 26.7-34.0 [facility] MCH (RBC) [Entitic mass] MCH [Entitic ma ss] by Automated count 26.7-34.0 [facility] MCHC Auto (RBC) [Mass/Vol]on 04-02-2024 MCHC (RBC) [Mass/Vol] 33.7 g/dL 29.9-35.2 [facility] MCHC (RBC) [Mass/Vol] MCHC [Mass/volume] by Automated count 29.9-35.2 [facility] MCV Auto (RBC) [Entitic vol] on 04-02-2024 MCV (RBC) [Entitic vol] 93.4 fL 81.0-99.0 F [facility] MCV (RBC) [Entitic vol] MCV [Entitic vol ume] by Automated count 81.0-99.0 [facility] Monocytes Auto (Bld) [#/Vol] on 04-02-2024 Monocytes (Bld) [#/Vol] 1.1 10 3/uL High 0.3-0.8 [facility] Monocytes (Bld) [#/Vol] Automated blood monocyte count High 0.3-0.8 [facility] Monocytes/100 WBC Auto (Bld) on 04-02-2024 Monocytes/100 WBC (Bld) 6.9 % 1.7-12.0 [facility] Monocytes/100 WBC (Bld) Automated monocyte % 1. 7-12.0 [facility] Neutrophils Auto (Bld) [#/Vo l]on 04-02-2024 Neutrophils (Bld) [#/Vol] 13.4 10 3/uL High 1.4-6.5 [facility] Neutrophils (Bld) [#/Vol] Neutrophils [#/volume] in Blood by Automated count High 1.4-6.5 [facility] Neutrophils/100 WBC Auto (Bl d)on 04-02-2024 Neutrophils/100 WBC (Bld) 84.2 % High 43.0-75.0 [facility] Neutrophils/100 WBC (Bld) Automated neutrophil % High 43.0-75.0 [facility] No Panel Informationon 04-02 Eosinophils # (Auto) 0.1 10 3/uL 0.0-0.7 [facility] Immature Granulocyte # (Auto) 0.06 10 3/uL High 0.00-0.03 [facility] Troponin I High Sensitivity 10.7 pg/mL 4.0-51.3 [facility] Comment on above: CUT-OFF POINTS [...] (Bld) [Entitic vol] 9.4 fL Low 9.5-13.5 [facility] Platelet mean volume (Bld) [Entitic vol] Platelet mean volume [Entitic volume] in Blood by Automated count Low 9.5-13.5 [facility] Platelets Auto (Bld) [#/Vol] on 04-02-2024 Platelets (Bld) [#/Vol] 241 10 3/uL 150-450 [facility] Platelets (Bld) [#/Vol] Platelets [#/vol ume] in Blood by Automated count 150-450 [facility] RBC Auto (Bld) [#/Vol]on RBC (Bld) [#/Vol] 4.57 10 6/uL 4.20-5.40 [facility] RBC (Bld) [#/Vol] Erythrocytes [#/volume] in Blood by Automated count 4.20-5.40 [facility] Serum or plasma albumin/glob ulin mass ratioon 04-02-2024 Albumin/Globulin [Mass ratio] 1.1 {ratio} [facility] Albumin/Globulin [Mass ratio] Serum or plasma albumin/globulin mass ratio [facility] Serum or plasma anion gap de terminationon 04-02-2024 Anion gap [Moles/Vol] 14.0 mmol/L [facility] Anion gap [Moles/Vol] Serum or plasma an ion gap determination [facility] Basophils Auto (Bld) [#/Vol] on 03-29-2024 Basophils (Bld) [#/Vol] 0.1 10 3/uL 0.0-0.1 [facility] Basophils (Bld) [#/Vol] Automated basoph il count 0.0-0.1 [facility] Basophils/100 WBC Auto (Bld) on 03-29-2024 Basophils/100 WBC (Bld) 0.7 % 0.2-2.0 [facility] Basophils/100 WBC (Bld) Automated basophil % 0. 2-2.0 [facility] Eosinophils/100 WBC Auto (Bl d)on 03-29-2024 Eosinophils/100 WBC (Bld) 0.6 % Low 0.9-7.0 [facility] Eosinophils/100 WBC (Bld) Automated eosinophil % Low 0.9-7.0 [facility] Erythrocyte distribution wid th Auto (RBC) [Ratio]on 03-29-2024 Erythrocyte distribution width (RBC) [Ratio] 13.8 % 11.0-15.0 [facility] Erythrocyte distribution width (RBC) [Ratio] Erythrocyte distribution width [Ratio] by Automated count 11.0-15.0 [facility] Estimated glomerular filtrat ion rate (GFR) non- Americanon 03-29-2024 GFR/1.73 sq M.predicted among non-blacks MDRD (S/P/Bld) [Vol rate/Area] mL/min/{1.73_m2} >=60 [facility] GFR/1.73 sq M.predicted among non-blacks MDRD (S/P/Bld) [Vol rate/Area] Estimated glomerular filtration rate (GFR) non- >=60 [facility] Globulin Calc (S) [Mass/Vol] on 03-29-2024 Globulin (S) [Mass/Vol] 3.3 g/dL F [facility] Globulin (S) [Mass/Vol] Serum globulin measurement by calculation (mass/volume) [facility] HCG ( test) IAlauren d Ql (U)on 03-29-2024 HCG ( test) Ql (U) Negative NEGATIVE [facility] HCG ( test) Ql (U) Urine human chorionic gonadotropin (hCG) detection by immunoassay NEGATIVE [facility] Hematocrit Auto (Bld) [Volum e fraction]on 03-29-2024 Hematocrit (Bld) [Volume fraction] 43.2 % 36.0-48.0 [facility] Hematocrit (Bld) [Volume fraction] Hematocrit [Volume Fraction] of Blood by Automated count 36.0-48.0 [facility] Hemoglobin [Mass/volume] in Bloodon 03-29-2024 Hemoglobin (Bld) [Mass/Vol] 14.1 g/dL 12.0-16.0 [facility] Hemoglobin (Bld) [Mass/Vol] Hemoglobin [Mass/volume] in Blood 12.0-16.0 [facility] Laboratory - Chemistry and C hemistry - challengeon 03-29-2024 Albumin [Mass/Vol] 4.2 g/dL 3.4-5.0 [facility] ALP [Catalytic activity/Vol] 44 U/L Low 46-116 [facility] ALT [Catalytic activity/Vol] 41 U/L 14-59 [facility] AST [Catalytic activity/Vol] 36 U/L 15-37 [facility] Bilirubin [Mass/Vol] 0.4 mg/dL 0.2-1.0 [facility] Calcium [Mass/Vol] 9.3 mg/dL 8.5-10.1 [facility] Chloride [Moles/Vol] 98 mmol/L 98-107 [facility] CO2 [Moles/Vol] 28.0 mmol/L 21.0-32.0 [facility] Creatinine [Mass/Vol] 0.85 mg/dL 0.55-1.02 [facility] GFR/1.73 sq M.predicted MDRD (S/P/Bld) [Vol rate/Area] mL/min/{1.73_m2} >=60 [facility] Glucose [Mass/Vol] 77 mg/dL 74-106 [facility] Potassium [Moles/Vol] 4.2 mmol/L 3.5-5.1 [facility] Protein [Mass/Vol] 7.5 g/dL 6.4-8.2 [facility] Sodium [Moles/Vol] 133 mmol/L Low 136-145 [facility] Urea nitrogen [Mass/Vol] 15.0 mg/dL 7.0-18.0 [facility] Urea nitrogen/Creatinine [Mass ratio] 17.6 mg/mg [facility] Bilirubin Ql (U) MODERATE Abnormal NEGATIVE [facility] Glucose (U) [Mass/Vol] Negative NEGATIVE [facility] Ketones Ql (U) Negative NEGATIVE [facility] pH (U) 6.0 [pH] 5.0-9.0 [facility] Specific gravity (U) [Rel density] 1.010 1.005-1.025 [facility] Urobilinogen Qn (U) 0.2 {Paul'U}/dL 0.2-1.0 [facility] Laboratory - Hematology and Cell countson 03-29-2024 Immature granulocytes/100 WBC (Bld) 0.3 % 0.0-0.5 [facility] Laboratory - Microbiology an d Antimicrobial susceptibilityon 03-29-2024 Bacteria identified Cx Nom (U) [facility] Laboratory - Specimen inform ationon 03-29-2024 Appearance (U) SL CLOUDY CLEAR [facility] Color (U) YELLOW YELLOW [facility] Laboratory - Urinalysison Leukocyte esterase Test strip Ql (U) LARGE Abnormal NEGATIVE [facility] Mucus Ql (Urine sed) TRACE Abnormal NONE SEEN [facility] Nitrite Ql (U) Negative NEGATIVE [facility] Protein Ql (U) Negative NEG/TRACE [facility] Leukocytes [#/volume] correc sandip for nucleated erythrocytes in Blood by Automated counon 03-29-2024 WBC corrected for nucl RBC Auto (Bld) [#/Vol] 14.8 10 3/uL High 4.0-11.0 [facility] WBC corrected for nucl RBC Auto (Bld) [#/Vol] Leukocytes [#/volume] corrected for nucleated erythrocytes in Blood by Automated coun High 4.0-11.0 [facility] Lymphocytes Auto (Bld) [#/Vo l]on 03-29-2024 Lymphocytes (Bld) [#/Vol] 1.2 10 3/uL 1.2-3.8 [facility] Lymphocytes (Bld) [#/Vol] Lymphocytes [#/volume] in Blood by Automated count 1.2-3.8 [facility] Lymphocytes/100 WBC Auto (Bl d)on 03-29-2024 Lymphocytes/100 WBC (Bld) 7.8 % Low 20.5-60.0 [facility] Lymphocytes/100 WBC (Bld) Lymphocytes/100 leukocytes in Blood by Automated count Low 20.5-60.0 [facility] MCH Auto (RBC) [Entitic mass ]on 03-29-2024 MCH (RBC) [Entitic mass] 31.3 pg 26.7-34.0 [facility] MCH (RBC) [Entitic mass] MCH [Entitic ma ss] by Automated count 26.7-34.0 [facility] MCHC Auto (RBC) [Mass/Vol]on 03-29-2024 MCHC (RBC) [Mass/Vol] 32.6 g/dL 29.9-35.2 [facility] MCHC (RBC) [Mass/Vol] MCHC [Mass/volume] by Automated count 29.9-35.2 [facility] MCV Auto (RBC) [Entitic vol] on 03-29-2024 MCV (RBC) [Entitic vol] 95.8 fL 81.0-99.0 [facility] MCV (RBC) [Entitic vol] MCV [Entitic vol ume] by Automated count 81.0-99.0 [facility] Monocytes Auto (Bld) [#/Vol] on 03-29-2024 Monocytes (Bld) [#/Vol] 1.1 10 3/uL High 0.3-0.8 [facility] Monocytes (Bld) [#/Vol] Automated blood monocyte count High 0.3-0.8 [facility] Monocytes/100 WBC Auto (Bld) on 03-29-2024 Monocytes/100 WBC (Bld) 7.1 % 1.7-12.0 [facility] Monocytes/100 WBC (Bld) Automated monocyte % 1. 7-12.0 [facility] Neutrophils Auto (Bld) [#/Vo l]on 03-29-2024 Neutrophils (Bld) [#/Vol] 12.3 10 3/uL High 1.4-6.5 [facility] Neutrophils (Bld) [#/Vol] Neutrophils [#/volume] in Blood by Automated count High 1.4-6.5 [facility] Neutrophils/100 WBC Auto (Bl d)on 03-29-2024 Neutrophils/100 WBC (Bld) 83.5 % High 43.0-75.0 [facility] Neutrophils/100 WBC (Bld) Automated neutrophil % High 43.0-75.0 [facility] No Panel Informationon 03-29 Eosinophils # (Auto) 0.1 10 3/uL 0.0-0.7 [facility] Immature Granulocyte # (Auto) 0.05 10 3/uL High 0.00-0.03 [facility] Miscellaneous Test Comment See comment [facility] Comment on above: Specimen Source: UCC - Urine,Clean Catch - Urine CC - 200.100 Urine Bacteria SMALL #/HPF Abnormal NONE SEEN [facility] Urine Culture Reflexed YES [facility] Urine Microscopic Review YES [facility] Urine Occult Blood TRACE-I NEGATIVE [facility] Urine Other Casts NONE SEEN #/LPF NONE SEEN [facility] Urine Other Crystals None Seen #/HPF None Seen [facility] Urine RBC 2-5 #/HPF Abnormal 0-2 [facility] Urine Squamous Epithelial Cells MODERATE #/LPF Abnormal NONE/RARE [facility] Urine WBC 75-100 #/HPF Abnormal NONE SEEN [facility] Platelet mean volume Auto (B ld) [Entitic vol]on 03-29-2024 Platelet mean volume (Bld) [Entitic vol] 9.3 fL Low 9.5-13.5 [facility] Platelet mean volume (Bld) [Entitic vol] Platelet mean volume [Entitic volume] in Blood by Automated count Low 9.5-13.5 [facility] Platelets Auto (Bld) [#/Vol] on 03-29-2024 Platelets (Bld) [#/Vol] 222 10 3/uL 150-450 [facility] Platelets (Bld) [#/Vol] Platelets [#/vol ume] in Blood by Automated count 150-450 [facility] RBC Auto (Bld) [#/Vol]on RBC (Bld) [#/Vol] 4.51 10 6/uL 4.20-5.40 [facility] RBC (Bld) [#/Vol] Erythrocytes [#/volume] in Blood by Automated count .20-5.40 [facility] Serum or plasma albumin/glob ulin mass ratioon 03-29-2024 Albumin/Globulin [Mass ratio] 1.3 {ratio} [facility] Albumin/Globulin [Mass ratio] Serum or plasma albumin/globulin mass ratio [facility] Serum or plasma anion gap de terminationon 03-29-2024 Anion gap [Moles/Vol] 11.2 mmol[facility] Anion gap [Moles/Vol] Serum or plasma an ion gap determination [facility] Urine culture routineon 03-07 Bacteria identified Cx Nom (U) \R\ Urine Culture, Routine [facility] Basophils Auto (Bld) [#/Vol] on 03-23-2024 Basophils (Bld) [#/Vol] 0.1 10 3/uL 0.0-0.1 [facility] Basophils (Bld) [#/Vol] Automated basoph il count 0.0-0.1 [facility] Basophils/100 WBC Auto (Bld) on 03-23-2024 Basophils/100 WBC (Bld) 1.4 % 0.2-2.0 [facility] Basophils/100 WBC (Bld) Automated basophil % 0. 2-2.0 [facility] Eosinophils/100 WBC Auto (Bl d)on 03-23-2024 Eosinophils/100 WBC (Bld) 2.1 % 0.9-7.0 [facility] Eosinophils/100 WBC (Bld) Automated eosinophil % 0.9-7.0 [facility] Erythrocyte distribution wid th Auto (RBC) [Ratio]on 03-23-2024 Erythrocyte distribution width (RBC) [Ratio] 14.1 % 11.0-15.0 [facility] Erythrocyte distribution width (RBC) [Ratio] Erythrocyte distribution width [Ratio] by Automated count 11.0-15.0 [facility] Estimated glomerular filtrat ion rate (GFR) non- Americanon 03-23-2024 GFR/1.73 sq M.predicted among non-blacks MDRD (S/P/Bld) [Vol rate/Area] mL/min/{1.73_m2} >=60 [facility] GFR/1.73 sq M.predicted among non-blacks MDRD (S/P/Bld) [Vol rate/Area] Estimated glomerular filtration rate (GFR) non- >=60 [facility] Globulin Calc (S) [Mass/Vol] on 03-23-2024 Globulin (S) [Mass/Vol] 3.1 g/dL F [facility] Globulin (S) [Mass/Vol] Serum globulin measurement by calculation (mass/volume) [facility] Hematocrit Auto (Bld) [Volum e fraction]on 03-23-2024 Hematocrit (Bld) [Volume fraction] 37.3 % 36.0-48.0 [facility] Hematocrit (Bld) [Volume fraction] Hematocrit [Volume Fraction] of Blood by Automated count 36.0-48.0 [facility] Hemoglobin [Mass/volume] in Bloodon 03-23-2024 Hemoglobin (Bld) [Mass/Vol] 12.3 g/dL 12.0-16.0 [facility] Hemoglobin (Bld) [Mass/Vol] Hemoglobin [Mass/volume] in Blood 12.0-16.0 [facility] Laboratory - Chemistry and C hemistry - challengeon 03-23-2024 Albumin [Mass/Vol] 3.6 g/dL 3.4-5.0 [facility] ALP [Catalytic activity/Vol] 43 U/L Low 46-116 [facility] ALT [Catalytic activity/Vol] 44 U/L 14-59 [facility] AST [Catalytic activity/Vol] 39 U/L High 15-37 [facility] Bilirubin [Mass/Vol] 0.5 mg/dL 0.2-1.0 [facility] Calcium [Mass/Vol] 8.5 mg/dL 8.5-10.1 [facility] Chloride [Moles/Vol] 103 mmol/L 98-107 [facility] CO2 [Moles/Vol] 29.6 mmol/L 21.0-32.0 [facility] Creatinine [Mass/Vol] 0.71 mg/dL 0.55-1.02 [facility] GFR/1.73 sq M.predicted MDRD (S/P/Bld) [Vol rate/Area] mL/min/{1.73_m2} >=60 [facility] Glucose [Mass/Vol] 81 mg/dL 74-106 [facility] Potassium [Moles/Vol] 4.0 mmol/L 3.5-5.1 [facility] Protein [Mass/Vol] 6.7 g/dL 6.4-8.2 [facility] Sodium [Moles/Vol] 138 mmol/L 136-145 [facility] Urea nitrogen [Mass/Vol] 11.0 mg/dL 7.0-18.0 [facility] Urea nitrogen/Creatinine [Mass ratio] 15.5 mg/mg [facility] Bilirubin Ql (U) MODERATE Abnormal NEGATIVE [facility] Glucose (U) [Mass/Vol] Negative NEGATIVE [facility] Ketones Ql (U) Negative NEGATIVE [facility] pH (U) 6.5 [pH] 5.0-9.0 [facility] Specific gravity (U) [Rel density] 1.010 1.005-1.025 [facility] Urobilinogen Qn (U) 0.2 {Paul'U}/dL 0.2-1.0 [facility] Laboratory - Hematology and Cell countson 03-23-2024 ESR (Bld) [Velocity] 28 mm/h <=30 [facility] Immature granulocytes/100 WBC (Bld) 0.5 % 0.0-0.5 [facility] Laboratory - Specimen inform ationon 03-23-2024 Appearance (U) CLEAR CLEAR [facility] Color (U) LT. YELLOW YELLOW [facility] Laboratory - Urinalysison Leukocyte esterase Test strip Ql (U) LARGE Abnormal NEGATIVE [facility] Mucus Ql (Urine sed) NONE SEEN NONE SEEN [facility] Nitrite Ql (U) Negative NEGATIVE [facility] Protein Ql (U) Negative NEG/TRACE [facility] Leukocytes [#/volume] correc sandip for nucleated erythrocytes in Blood by Automated counon 03-23-2024 WBC corrected for nucl RBC Auto (Bld) [#/Vol] 5.8 10 3/uL 4.0-11.0 [facility] WBC corrected for nucl RBC Auto (Bld) [#/Vol] Leukocytes [#/volume] corrected for nucleated erythrocytes in Blood by Automated coun 4.0-11.0 [facility] Lymphocytes Auto (Bld) [#/Vo l]on 03-23-2024 Lymphocytes (Bld) [#/Vol] 1.1 10 3/uL Low 1.2-3.8 [facility] Lymphocytes (Bld) [#/Vol] Lymphocytes [#/volume] in Blood by Automated count Low 1.2-3.8 [facility] Lymphocytes/100 WBC Auto (Bl d)on 03-23-2024 Lymphocytes/100 WBC (Bld) 19.0 % Low 20.5-60.0 [facility] Lymphocytes/100 WBC (Bld) Lymphocytes/100 leukocytes in Blood by Automated count Low 20.5-60.0 [facility] MCH Auto (RBC) [Entitic mass ]on 03-23-2024 MCH (RBC) [Entitic mass] 31.8 pg 26.7-34.0 [facility] MCH (RBC) [Entitic mass] MCH [Entitic ma ss] by Automated count 26.7-34.0 [facility] MCHC Auto (RBC) [Mass/Vol]on 03-23-2024 MCHC (RBC) [Mass/Vol] 33.0 g/dL 29.9-35.2 [facility] MCHC (RBC) [Mass/Vol] MCHC [Mass/volume] by Automated count 29.9-35.2 [facility] MCV Auto (RBC) [Entitic vol] on 03-23-2024 MCV (RBC) [Entitic vol] 96.4 fL 81.0-99.0 [facility] MCV (RBC) [Entitic vol] MCV [Entitic vol ume] by Automated count 81.0-99.0 [facility] Monocytes Auto (Bld) [#/Vol] on 03-23-2024 Monocytes (Bld) [#/Vol] 0.5 10 3/uL 0.3-0.8 [facility] Monocytes (Bld) [#/Vol] Automated blood monocyte count 0.3-0.8 [facility] Monocytes/100 WBC Auto (Bld) on 03-23-2024 Monocytes/100 WBC (Bld) 9.3 % 1.7-12.0 [facility] Monocytes/100 WBC (Bld) Automated monocyte % 1. 7-12.0 [facility] Neutrophils Auto (Bld) [#/Vo l]on 03-23-2024 Neutrophils (Bld) [#/Vol] 3.9 10 3/uL 1.4-6.5 [facility] Neutrophils (Bld) [#/Vol] Neutrophils [#/volume] in Blood by Automated count 1.4-6.5 [facility] Neutrophils/100 WBC Auto (Bl d)on 03-23-2024 Neutrophils/100 WBC (Bld) 67.7 % 43.0-75.0 [facility] Neutrophils/100 WBC (Bld) Automated neutrophil % 43.0-75.0 [facility] No Panel Informationon 03-23 Eosinophils # (Auto) 0.1 10 3/uL 0.0-0.7 [facility] Immature Granulocyte # (Auto) 0.03 10 3/uL 0.00-0.03 [facility] Total Complement (CH50) 60 U/mL >41 [facility] Comment on above: Age Male [...] determine out of range values.Performed at: - [facility] [id number] Director: Santiago Madrid PhD, Phone: [phone] Urine Bacteria TRACE #/HPF Abnormal NONE SEEN [facility] Urine Occult Blood Negative NEGATIVE [facility] Urine Other Casts NONE SEEN #/LPF NONE SEEN [facility] Urine Other Crystals None Seen #/HPF None Seen [facility] Urine RBC 2-5 #/HPF Abnormal 0-2 [facility] Urine Squamous Epithelial Cells FEW #/LPF Abnormal NONE/RARE [facility] Urine Transitional Epithelial Cells RARE #/LPF Abnormal NONE SEEN [facility] Urine WBC 10-20 #/HPF Abnormal NONE SEEN [facility] Platelet mean volume Auto (B ld) [Entitic vol]on 03-23-2024 Platelet mean volume (Bld) [Entitic vol] 9.4 fL Low 9.5-13.5 [facility] Platelet mean volume (Bld) [Entitic vol] Platelet mean volume [Entitic volume] in Blood by Automated count Low 9.5-13.5 [facility] Platelets Auto (Bld) [#/Vol] on 03-23-2024 Platelets (Bld) [#/Vol] 192 10 3/uL 150-450 [facility] Platelets (Bld) [#/Vol] Platelets [#/vol ume] in Blood by Automated count 150-450 [facility] RBC Auto (Bld) [#/Vol]on RBC (Bld) [#/Vol] 3.87 10 6/uL Low 4.20-5.40 [facility] RBC (Bld) [#/Vol] Erythrocytes [#/volume] in Blood by Automated count Low 4.20-5.40 [facility] Serum or plasma albumin/glob ulin mass ratioon 03-23-2024 Albumin/Globulin [Mass ratio] 1.2 {ratio} [facility] Albumin/Globulin [Mass ratio] Serum or plasma albumin/globulin mass ratio [facility] Serum or plasma anion gap de terminationon 03-23-2024 Anion gap [Moles/Vol] 9.4 mmol/L [facility] Anion gap [Moles/Vol] Serum or plasma an ion gap determination [facility] Serum or plasma complement C 3 measurement (mass/volume)on 03-23-2024 Complement C3 [Mass/Vol] 120 mg/dL 82-167 [facility] Complement C3 [Mass/Vol] Serum or plasma complement C3 measurement (mass/volume) 82-167 [facility] Serum or plasma complement C 4 measurement (mass/volume)on 03-23-2024 Complement C4 [Mass/Vol] 22 mg/dL [facility] Comment on above: Performed at: [facility] [address] [id number] Director: Santiago Madrid PhD, Phone: [phone] Complement C4 [Mass/Vol] Serum or plasma complement C4 measurement (mass/volume) [facility] Comment on above: Performed at: [facility] [id number] [place], [place] [id number] Director: Santiago Madrid PhD, Phone: [phone] Basophils Auto (Bld) [#/Vol] on 03-09-2024 Basophils (Bld) [#/Vol] 0.1 10 3/uL 0.0-0.1 [facility] Basophils (Bld) [#/Vol] Automated basoph il count 0.0-0.1 [facility] Basophils/100 WBC Auto (Bld) on 03-09-2024 Basophils/100 WBC (Bld) 1.3 % 0.2-2.0 [facility] Basophils/100 WBC (Bld) Automated basophil % 0. 2-2.0 [facility] Eosinophils/100 WBC Auto (Bl d)on 03-09-2024 Eosinophils/100 WBC (Bld) 1.5 % 0.9-7.0 [facility] Eosinophils/100 WBC (Bld) Automated eosinophil % 0.9-7.0 [facility] Erythrocyte distribution wid th Auto (RBC) [Ratio]on 03-09-2024 Erythrocyte distribution width (RBC) [Ratio] 14.0 % 11.0-15.0 [facility] Erythrocyte distribution width (RBC) [Ratio] Erythrocyte distribution width [Ratio] by Automated count 11.0-15.0 [facility] Estimated glomerular filtrat ion rate (GFR) non- Americanon 03-09-2024 GFR/1.73 sq M.predicted among non-blacks MDRD (S/P/Bld) [Vol rate/Area] mL/min/{1.73_m2} >=60 [facility] GFR/1.73 sq M.predicted among non-blacks MDRD (S/P/Bld) [Vol rate/Area] Estimated glomerular filtration rate (GFR) non- >=60 [facility] Globulin Calc (S) [Mass/Vol] on 03-09-2024 Globulin (S) [Mass/Vol] 3.5 g/dL F [facility] Globulin (S) [Mass/Vol] Serum globulin measurement by calculation (mass/volume) [facility] Hematocrit Auto (Bld) [Volum e fraction]on 03-09-2024 Hematocrit (Bld) [Volume fraction] 40.2 % 36.0-48.0 [facility] Hematocrit (Bld) [Volume fraction] Hematocrit [Volume Fraction] of Blood by Automated count 36.0-48.0 [facility] Hemoglobin [Mass/volume] in Bloodon 03-09-2024 Hemoglobin (Bld) [Mass/Vol] 13.1 g/dL 12.0-16.0 [facility] Hemoglobin (Bld) [Mass/Vol] Hemoglobin [Mass/volume] in Blood 12.0-16.0 [facility] Laboratory - Chemistry and C hemistry - challengeon 03-09-2024 Albumin [Mass/Vol] 4.0 g/dL 3.4-5.0 [facility] ALP [Catalytic activity/Vol] 44 U/L Low 46-116 [facility] ALT [Catalytic activity/Vol] 34 U/L 14-59 [facility] AST [Catalytic activity/Vol] 24 U/L 15-37 [facility] Bilirubin [Mass/Vol] 0.4 mg/dL 0.2-1.0 [facility] Calcium [Mass/Vol] 9.1 mg/dL 8.5-10.1 [facility] Chloride [Moles/Vol] 100 mmol/L 98-107 [facility] CO2 [Moles/Vol] 27.7 mmol/L 21.0-32.0 [facility] Creatinine [Mass/Vol] 0.73 mg/dL 0.55-1.02 [facility] GFR/1.73 sq M.predicted MDRD (S/P/Bld) [Vol rate/Area] mL/min/{1.73_m2} >=60 [facility] Glucose [Mass/Vol] 84 mg/dL 74-106 [facility] Potassium [Moles/Vol] 4.1 mmol/L 3.5-5.1 [facility] Protein [Mass/Vol] 7.5 g/dL 6.4-8.2 [facility] Sodium [Moles/Vol] 137 mmol/L 136-145 [facility] Urea nitrogen [Mass/Vol] 15.0 mg/dL 7.0-18.0 [facility] Urea nitrogen/Creatinine [Mass ratio] 20.5 mg/mg [facility] Bilirubin Ql (U) Negative NEGATIVE [facility] Glucose (U) [Mass/Vol] Negative NEGATIVE [facility] Ketones Ql (U) Negative NEGATIVE [facility] pH (U) 6.5 [pH] 5.0-9.0 [facility] Specific gravity (U) [Rel density] <=1.005 Abnormal 1.005-1.025 [facility] Urobilinogen Qn (U) 0.2 {Paul'U}/dL 0.2-1.0 [facility] Laboratory - Hematology and Cell countson 03-09-2024 ESR (Bld) [Velocity] 43 mm/h High <=30 [facility] Immature granulocytes/100 WBC (Bld) 0.3 % 0.0-0.5 [facility] Laboratory - Specimen inform ationon 03-09-2024 Appearance (U) CLEAR CLEAR [facility] Color (U) LT. YELLOW YELLOW [facility] Laboratory - Urinalysison Leukocyte esterase Test strip Ql (U) SMALL Abnormal NEGATIVE [facility] Mucus Ql (Urine sed) NONE SEEN NONE SEEN [facility] Nitrite Ql (U) Negative NEGATIVE [facility] Protein Ql (U) Negative NEG/TRACE [facility] Leukocytes [#/volume] correc sandip for nucleated erythrocytes in Blood by Automated counon 03-09-2024 WBC corrected for nucl RBC Auto (Bld) [#/Vol] 6.8 10 3/uL 4.0-11.0 [facility] WBC corrected for nucl RBC Auto (Bld) [#/Vol] Leukocytes [#/volume] corrected for nucleated erythrocytes in Blood by Automated coun 4.0-11.0 [facility] Lymphocytes Auto (Bld) [#/Vo l]on 03-09-2024 Lymphocytes (Bld) [#/Vol] 1.2 10 3/uL 1.2-3.8 [facility] Lymphocytes (Bld) [#/Vol] Lymphocytes [#/volume] in Blood by Automated count 1.2-3.8 [facility] Lymphocytes/100 WBC Auto (Bl d)on 03-09-2024 Lymphocytes/100 WBC (Bld) 17.7 % Low 20.5-60.0 [facility] Lymphocytes/100 WBC (Bld) Lymphocytes/100 leukocytes in Blood by Automated count Low 20.5-60.0 [facility] MCH Auto (RBC) [Entitic mass ]on 03-09-2024 MCH (RBC) [Entitic mass] 31.4 pg 26.7-34.0 [facility] MCH (RBC) [Entitic mass] MCH [Entitic ma ss] by Automated count 26.7-34.0 [facility] MCHC Auto (RBC) [Mass/Vol]on 03-09-2024 MCHC (RBC) [Mass/Vol] 32.6 g/dL 29.9-35.2 [facility] MCHC (RBC) [Mass/Vol] MCHC [Mass/volume] by Automated count 29.9-35.2 [facility] MCV Auto (RBC) [Entitic vol] on 03-09-2024 MCV (RBC) [Entitic vol] 96.4 fL 81.0-99.0 [facility] MCV (RBC) [Entitic vol] MCV [Entitic vol ume] by Automated count 81.0-99.0 [facility] Monocytes Auto (Bld) [#/Vol] on 03-09-2024 Monocytes (Bld) [#/Vol] 0.5 10 3/uL 0.3-0.8 [facility] Monocytes (Bld) [#/Vol] Automated blood monocyte count 0.3-0.8 [facility] Monocytes/100 WBC Auto (Bld) on 03-09-2024 Monocytes/100 WBC (Bld) 7.9 % 1.7-12.0 F [facility] Monocytes/100 WBC (Bld) Automated monocyte % 1. 7-12.0 [facility] Neutrophils Auto (Bld) [#/Vo l]on 03-09-2024 Neutrophils (Bld) [#/Vol] 4.9 10 3/uL 1.4-6.5 [facility] Neutrophils (Bld) [#/Vol] Neutrophils [#/volume] in Blood by Automated count 1.4-6.5 [facility] Neutrophils/100 WBC Auto (Bl d)on 03-09-2024 Neutrophils/100 WBC (Bld) 71.3 % 43.0-75.0 [facility] Neutrophils/100 WBC (Bld) Automated neutrophil % 43.0-75.0 [facility] No Panel Informationon 03-09 Eosinophils # (Auto) 0.1 10 3/uL 0.0-0.7 [facility] Immature Granulocyte # (Auto) 0.02 10 3/uL 0.00-0.03 [facility] Total Complement (CH50) >60 U/mL >41 F [facility] Comment on above: Age Male [...] out of range values.Performed at: - [facility] [address] [id number] Director: Santiago Madrid PhD, Phone: [phone] Urine Bacteria TRACE #/HPF Abnormal NONE SEEN [facility] Urine Occult Blood Negative NEGATIVE [facility] Urine Other Casts NONE SEEN #/LPF NONE SEEN [facility] Urine Other Crystals None Seen #/HPF None Seen [facility] Urine RBC NONE SEEN #/HPF 0-2 [facility] Urine Squamous Epithelial Cells FEW #/LPF Abnormal NONE/RARE [facility] Urine WBC 2-5 #/HPF Abnormal NONE SEEN [facility] Platelet mean volume Auto (B ld) [Entitic vol]on 03-09-2024 Platelet mean volume (Bld) [Entitic vol] 9.2 fL Low 9.5-13.5 [facility] Platelet mean volume (Bld) [Entitic vol] Platelet mean volume [Entitic volume] in Blood by Automated count Low 9.5-13.5 [facility] Platelets Auto (Bld) [#/Vol] on 03-09-2024 Platelets (Bld) [#/Vol] 226 10 3/uL 150-450 [facility] Platelets (Bld) [#/Vol] Platelets [#/vol ume] in Blood by Automated count 150-450 [facility] RBC Auto (Bld) [#/Vol]on RBC (Bld) [#/Vol] 4.17 10 6/uL Low 4.20-5.40 [facility] RBC (Bld) [#/Vol] Erythrocytes [#/volume] in Blood by Automated count Low 4.20-5.40 [facility] Serum or plasma albumin/glob ulin mass ratioon 03-09-2024 Albumin/Globulin [Mass ratio] 1.1 {ratio} [facility] Albumin/Globulin [Mass ratio] Serum or plasma albumin/globulin mass ratio [facility] Serum or plasma anion gap de terminationon 03-09-2024 Anion gap [Moles/Vol] 13.4 [facility] An[facility] gap [Moles/Vol] Serum or plasma an ion gap determination [facility] Serum or plasma complement C 3 measurement (mass/volume)on 03-09-2024 Complement C3 [Mass/Vol] 140 mg/dL 82-167 [facility] Complement C3 [Mass/Vol] Serum or plasma complement C3 measurement (mass/volume) 82-167 [facility] Serum or plasma complement C 4 measurement (mass/volume)on 03-09-2024 Complement C4 [Mass/Vol] 24 mg/dL 12-38 [facility] Comment on above: Performed at: [address] [id number] Director: Santiago Madrid PhD, Phone: [phone] Complement C4 [Mass/Vol] Serum or plasma complement C4 measurement (mass/volume) 12-38 [facility] Comment on above: Performed at: [address] [id number] Director: Santiago Madrid PhD, Phone: [phone] Basophils Auto (Bld) [#/Vol] on 02-24-2024 Basophils (Bld) [#/Vol] 0.1 10 3/uL 0.0-0.1 [facility] Basophils (Bld) [#/Vol] Automated basoph il count 0.0-0.1 [facility] Basophils/100 WBC Auto (Bld) on 02-24-2024 Basophils/100 WBC (Bld) 1.3 % 0.2-2.0 F [facility] Basophils/100 WBC (Bld) Automated basophil % 0. 2-2.0 [facility] Eosinophils/100 WBC Auto (Bl d)on 02-24-2024 Eosinophils/100 WBC (Bld) 1.4 % 0.9-7.0 [facility] Eosinophils/100 WBC (Bld) Automated eosinophil % 0.9-7.0 [facility] Erythrocyte distribution wid th Auto (RBC) [Ratio]on 02-24-2024 Erythrocyte distribution width (RBC) [Ratio] 13.7 % 11.0-15.0 [facility] Erythrocyte distribution width (RBC) [Ratio] Erythrocyte distribution width [Ratio] by Automated count 11.0-15.0 [facility] Estimated glomerular filtrat ion rate (GFR) non- Americanon 02-24-2024 GFR/1.73 sq M.predicted among non-blacks MDRD (S/P/Bld) [Vol rate/Area] mL/min/{1.73_m2} >=60 [facility] GFR/1.73 sq M.predicted among non-blacks MDRD (S/P/Bld) [Vol rate/Area] Estimated glomerular filtration rate (GFR) non- >=60 [facility] Globulin Calc (S) [Mass/Vol] on 02-24-2024 Globulin (S) [Mass/Vol] 3.3 g/dL F [facility] Globulin (S) [Mass/Vol] Serum globulin measurement by calculation (mass/volume) [facility] Hematocrit Auto (Bld) [Volum e fraction]on 02-24-2024 Hematocrit (Bld) [Volume fraction] 39.6 % 36.0-48.0 [facility] Hematocrit (Bld) [Volume fraction] Hematocrit [Volume Fraction] of Blood by Automated count 36.0-48.0 [facility] Hemoglobin [Mass/volume] in Bloodon 02-24-2024 Hemoglobin (Bld) [Mass/Vol] 12.9 g/dL 12.0-16.0 [facility] Hemoglobin (Bld) [Mass/Vol] Hemoglobin [Mass/volume] in Blood 12.0-16.0 [facility] Laboratory - Chemistry and C hemistry - challengeon 02-24-2024 Albumin [Mass/Vol] 3.9 g/dL 3.4-5.0 [facility] ALP [Catalytic activity/Vol] 41 U/L Low 46-116 [facility] ALT [Catalytic activity/Vol] 27 U/L 14-59 [facility] AST [Catalytic activity/Vol] 23 U/L 15-37 [facility] Bilirubin [Mass/Vol] 0.5 mg/dL 0.2-1.0 [facility] Calcium [Mass/Vol] 8.9 mg/dL 8.5-10.1 [facility] Chloride [Moles/Vol] 100 mmol/L 98-107 [facility] CO2 [Moles/Vol] 26.2 mmol/L 21.0-32.0 [facility] Creatinine [Mass/Vol] 0.69 mg/dL 0.55-1.02 [facility] GFR/1.73 sq M.predicted MDRD (S/P/Bld) [Vol rate/Area] mL/min/{1.73_m2} >=60 [facility] Glucose [Mass/Vol] 85 mg/dL 74-106 [facility] Potassium [Moles/Vol] 4.0 mmol/L 3.5-5.1 [facility] Protein [Mass/Vol] 7.2 g/dL 6.4-8.2 [facility] Sodium [Moles/Vol] 136 mmol/L 136-145 [facility] Urea nitrogen [Mass/Vol] 17.0 mg/dL 7.0-18.0 [facility] Urea nitrogen/Creatinine [Mass ratio] 24.6 mg/mg [facility] Bilirubin Ql (U) LARGE Abnormal NEGATIVE [facility] Glucose (U) [Mass/Vol] Negative NEGATIVE [facility] Ketones Ql (U) Negative NEGATIVE [facility] pH (U) 6.5 [pH] 5.0-9.0 [facility] Specific gravity (U) [Rel density] 1.025 1.005-1.025 [facility] Urobilinogen Qn (U) 0.2 {Paul'U}/dL 0.2-1.0 [facility] Laboratory - Hematology and Cell countson 02-24-2024 ESR (Bld) [Velocity] 84 mm/h High <=30 [facility] Immature granulocytes/100 WBC (Bld) 0.3 % 0.0-0.5 [facility] Laboratory - Specimen inform ationon 02-24-2024 Appearance (U) CLEAR CLEAR [facility] Color (U) LT. YELLOW YELLOW [facility] Laboratory - Urinalysison Leukocyte esterase Test strip Ql (U) LARGE Abnormal NEGATIVE [facility] Mucus Ql (Urine sed) NONE SEEN NONE SEEN [facility] Nitrite Ql (U) Negative NEGATIVE [facility] Protein Ql (U) TRACE mg/dL NEG/TRACE [facility] Leukocytes [#/volume] correc sandip for nucleated erythrocytes in Blood by Automated counon 02-24-2024 WBC corrected for nucl RBC Auto (Bld) [#/Vol] 7.2 10 3/uL 4.0-11.0 [facility] WBC corrected for nucl RBC Auto (Bld) [#/Vol] Leukocytes [#/volume] corrected for nucleated erythrocytes in Blood by Automated coun .0-11.0 [facility] Lymphocytes Auto (Bld) [#/Vo l]on 02-24-2024 Lymphocytes (Bld) [#/Vol] 1.2 10 3/uL 1.2-3.8 [facility] Lymphocytes (Bld) [#/Vol] Lymphocytes [#/volume] in Blood by Automated count 1.2-3.8 [facility] Lymphocytes/100 WBC Auto (Bl d)on 02-24-2024 Lymphocytes/100 WBC (Bld) 16.7 % Low 20.5-60.0 [facility] Lymphocytes/100 WBC (Bld) Lymphocytes/100 leukocytes in Blood by Automated count Low 20.5-60.0 [facility] MCH Auto (RBC) [Entitic mass ]on 02-24-2024 MCH (RBC) [Entitic mass] 31.2 pg 26.7-34.0 [facility] MCH (RBC) [Entitic mass] MCH [Entitic ma ss] by Automated count 26.7-34.0 [facility] MCHC Auto (RBC) [Mass/Vol]on 02-24-2024 MCHC (RBC) [Mass/Vol] 32.6 g/dL 29.9-35.2 [facility] MCHC (RBC) [Mass/Vol] MCHC [Mass/volume] by Automated count 29.9-35.2 [facility] MCV Auto (RBC) [Entitic vol] on 02-24-2024 MCV (RBC) [Entitic vol] 95.7 fL 81.0-99.0 F [facility] MCV (RBC) [Entitic vol] MCV [Entitic vol ume] by Automated count 81.0-99.0 [facility] Monocytes Auto (Bld) [#/Vol] on 02-24-2024 Monocytes (Bld) [#/Vol] 0.7 10 3/uL 0.3-0.8 [facility] Monocytes (Bld) [#/Vol] Automated blood monocyte count 0.3-0.8 [facility] Monocytes/100 WBC Auto (Bld) on 02-24-2024 Monocytes/100 WBC (Bld) 9.2 % 1.7-12.0 F [facility] Monocytes/100 WBC (Bld) Automated monocyte % 1. 7-12.0 [facility] Neutrophils Auto (Bld) [#/Vo l]on 02-24-2024 Neutrophils (Bld) [#/Vol] 5.1 10 3/uL 1.4-6.5 [facility] Neutrophils (Bld) [#/Vol] Neutrophils [#/volume] in Blood by Automated count 1.4-6.5 [facility] Neutrophils/100 WBC Auto (Bl d)on 02-24-2024 Neutrophils/100 WBC (Bld) 71.1 % 43.0-75.0 [facility] Neutrophils/100 WBC (Bld) Automated neutrophil % 43.0-75.0 [facility] No Panel Informationon 02-23 Eosinophils # (Auto) 0.1 10 3/uL 0.0-0.7 [facility] Immature Granulocyte # (Auto) 0.02 10 3/uL 0.00-0.03 [facility] Total Complement (CH50) >60 U/mL >41 [facility] Comment on above: Age Male [...] determine out of range values.Performed at: - [facility] [id number] Director: Santiago Madrid PhD, Phone: [phone] Urine Bacteria SMALL #/HPF Abnormal NONE SEEN [facility] Urine Occult Blood Negative NEGATIVE [facility] Urine Other Casts NONE SEEN #/LPF NONE SEEN [facility] Urine Other Crystals None Seen #/HPF None Seen [facility] Urine RBC 2-5 #/HPF Abnormal 0-2 [facility] Urine Squamous Epithelial Cells MANY #/LPF Abnormal NONE/RARE [facility] Urine WBC 20-50 #/HPF Abnormal NONE SEEN [facility] Platelet mean volume Auto (B ld) [Entitic vol]on 02-24-2024 Platelet mean volume (Bld) [Entitic vol] 9.4 fL Low 9.5-13.5 [facility] Platelet mean volume (Bld) [Entitic vol] Platelet mean volume [Entitic volume] in Blood by Automated count Low 9.5-13.5 [facility] Platelets Auto (Bld) [#/Vol] on 02-24-2024 Platelets (Bld) [#/Vol] 222 10 3/uL 150-450 [facility] Platelets (Bld) [#/Vol] Platelets [#/vol ume] in Blood by Automated count 150-450 [facility] RBC Auto (Bld) [#/Vol]on RBC (Bld) [#/Vol] 4.14 10 6/uL Low 4.20-5.40 [facility] RBC (Bld) [#/Vol] Erythrocytes [#/volume] in Blood by Automated count Low 4.20-5.40 [facility] Serum or plasma albumin/glob ulin mass ratioon 02-24-2024 Albumin/Globulin [Mass ratio] 1.2 {ratio} [facility] Albumin/Globulin [Mass ratio] Serum or plasma albumin/globulin mass ratio [facility] Serum or plasma anion gap de terminationon 02-24-2024 Anion gap [Moles/Vol] 13.8 mmol/L [facility] Anion gap [Moles/Vol] Serum or plasma an ion gap determination [facility] Serum or plasma complement C 3 measurement (mass/volume)on 02-24-2024 Complement C3 [Mass/Vol] 133 mg/dL -167 [facility] Complement C3 [Mass/Vol] Serum or plasma complement C3 measurement (mass/volume) -167 [facility] Serum or plasma complement C 4 measurement (mass/volume)on 02-24-2024 Complement C4 [Mass/Vol] 24 mg/dL [facility] Comment on above: Performed at: [id number] [place] [id number] Director: Santiago Madrid PhD, Phone: [phone] Complement C4 [Mass/Vol] Serum or plasma complement C4 measurement (mass/volume) [facility] Comment on above: Performed at: [id number] [place], [place] [id number] Director: Santiago Madrid PhD, Phone: [phone] XR knee LT 2Von 02-23-2024 XR knee LT 2V [facility] [address] [place] [address] XRay Report Signed Patient: Genna Herrera MR#: [id number] 52 : 1950 Acct:[id number] Age/Sex: 73 / F ADM Date: 02/23/24 Loc: [facility] [place] Room: Type: [facility] Attending Dr: Domingo George DO Copies to: Domingo George DO Ordering Provider: Domingo George DO Date of Service: 02/23/24 XR/XR knee RT 4V*: M25.561 - Pain in right knee ([id number]) XR/XR knee LT 2V: needs weightbearing XR [...] David Corley M.D.02/23/2024 10:01 AM Dictation Location: [place] [address] Transcribed By: [facility] 02/23/24 1001 Dictated By: David Corley II, MD 02/23/24 0959 Signed By: 02/23/24 1001 Normal [facility] Urine Cultureon 02-16-2024 Bacteria identified Cx Nom (U) 20,000 colonies/ml mixed bacterial skin contaminants 2 Days PERFORMED BY: [place] [address] [place] [address] PATHOLOGIST [facility] ADMIN ROSLNY TALLEY M.D. Normal The [facility] Comment on above: Performed By: #### C UU #### [facility] [address] Urine culture routineOrdered By: Casandra Chopra on 02-16-2024 Bacteria identified Cx Nom (U) 2 Days [facility] Basophils Auto (Bld) [#/Vol] on 02-10-2024 Basophils (Bld) [#/Vol] 0.1 10 3/uL 0.0-0.1 [facility] Basophils/100 WBC Auto (Bld) on 02-10-2024 Basophils/100 WBC (Bld) 1.6 % 0.2-2.0 F [facility] Eosinophils/100 WBC Auto (Bl d)on 02-10-2024 Eosinophils/100 WBC (Bld) 1.8 % 0.9-7.0 [facility] Erythrocyte distribution wid th Auto (RBC) [Ratio]on 02-10-2024 Erythrocyte distribution width (RBC) [Ratio] 13.2 % 11.0-15.0 [facility] Estimated glomerular filtrat ion rate (GFR) non- Americanon 02-10-2024 GFR/1.73 sq M.predicted among non-blacks MDRD (S/P/Bld) [Vol rate/Area] mL/min/{1.73_m2} >=60 [facility] Fine granular cast count in urine sediment by microscopy (number/low power field )on 02-10-2024 Fine Granular Casts LM.LPF (Urine sed) [#/Area] RARE [facility] Globulin Calc (S) [Mass/Vol] on 02-10-2024 Globulin (S) [Mass/Vol] 3.1 g/dL F [facility] Hematocrit Auto (Bld) [Volum e fraction]on 02-10-2024 Hematocrit (Bld) [Volume fraction] 38.7 % 36.0-48.0 [facility] Hemoglobin [Mass/volume] in Bloodon 02-10-2024 Hemoglobin (Bld) [Mass/Vol] 12.7 g/dL 12.0-16.0 [facility] Laboratory - Chemistry and C hemistry - challengeon 02-10-2024 Albumin [Mass/Vol] 3.8 g/dL 3.4-5.0 [facility] ALP [Catalytic activity/Vol] 42 U/L Low 46-116 [facility] ALT [Catalytic activity/Vol] 22 U/L 14-59 [facility] AST [Catalytic activity/Vol] 21 U/L 15-37 [facility] Bilirubin [Mass/Vol] 0.5 mg/dL 0.2-1.0 [facility] Calcium [Mass/Vol] 9.0 mg/dL 8.5-10.1 [facility] Chloride [Moles/Vol] 99 mmol/L 98-107 [facility] CO2 [Moles/Vol] 24.9 mmol/L 21.0-32.0 [facility] Creatinine [Mass/Vol] 0.80 mg/dL 0.55-1.02 [facility] GFR/1.73 sq M.predicted MDRD (S/P/Bld) [Vol rate/Area] mL/min/{1.73_m2} >=60 [facility] Glucose [Mass/Vol] 85 mg/dL 74-106 [facility] Potassium [Moles/Vol] 4.2 mmol/L 3.5-5.1 [facility] Protein [Mass/Vol] 6.9 g/dL 6.4-8.2 [facility] Sodium [Moles/Vol] 136 mmol/L 136-145 [facility] Urea nitrogen [Mass/Vol] 15.0 mg/dL 7.0-18.0 [facility] Urea nitrogen/Creatinine [Mass ratio] 18.8 mg/mg [facility] Bilirubin Ql (U) MODERATE Abnormal NEGATIVE [facility] Glucose (U) [Mass/Vol] Negative NEGATIVE [facility] Ketones Ql (U) Negative NEGATIVE [facility] pH (U) 7.0 [pH] 5.0-9.0 [facility] Specific gravity (U) [Rel density] 1.010 1.005-1.025 [facility] Urobilinogen Qn (U) 0.2 {Paul'U}/dL 0.2-1.0 [facility] Laboratory - Hematology and Cell countson 02-10-2024 ESR (Bld) [Velocity] 73 mm/h High <=30 [facility] Immature granulocytes/100 WBC (Bld) 0.2 % 0.0-0.5 [facility] Laboratory - Specimen inform ationon 02-10-2024 Appearance (U) CLEAR CLEAR [facility] Color (U) LT. YELLOW YELLOW [facility] Laboratory - Urinalysison Leukocyte esterase Test strip Ql (U) MODERATE Abnormal NEGATIVE [facility] Mucus Ql (Urine sed) TRACE Abnormal NONE SEEN [facility] Nitrite Ql (U) Negative NEGATIVE [facility] Protein Ql (U) Negative NEG/TRACE [facility] Leukocytes [#/volume] correc sandip for nucleated erythrocytes in Blood by Automated counon 02-10-2024 WBC corrected for nucl RBC Auto (Bld) [#/Vol] 5.7 10 3/uL 4.0-11.0 [facility] Lymphocytes Auto (Bld) [#/Vo l]on 02-10-2024 Lymphocytes (Bld) [#/Vol] 1.0 10 3/uL Low 1.2-3.8 [facility] Lymphocytes/100 WBC Auto (Bl d)on 02-10-2024 Lymphocytes/100 WBC (Bld) 17.1 % Low 20.5-60.0 [facility] MCH Auto (RBC) [Entitic mass ]on 02-10-2024 MCH (RBC) [Entitic mass] 31.1 pg 26.7-34.0 [facility] MCHC Auto (RBC) [Mass/Vol]on 02-10-2024 MCHC (RBC) [Mass/Vol] 32.8 g/dL 29.9-35.2 [facility] MCV Auto (RBC) [Entitic vol] on 02-10-2024 MCV (RBC) [Entitic vol] 94.6 fL 81.0-99.0 [facility] Monocytes Auto (Bld) [#/Vol] on 02-10-2024 Monocytes (Bld) [#/Vol] 0.5 10 3/uL 0.3-0.8 [facility] Monocytes/100 WBC Auto (Bld) on 02-10-2024 Monocytes/100 WBC (Bld) 8.3 % 1.7-12.0 [facility] Neutrophils Auto (Bld) [#/Vo l]on 02-10-2024 Neutrophils (Bld) [#/Vol] 4.0 10 3/uL 1.4-6.5 [facility] Neutrophils/100 WBC Auto (Bl d)on 02-10-2024 Neutrophils/100 WBC (Bld) 71.0 % 43.0-75.0 [facility] No Panel Informationon 02-09 Eosinophils # (Auto) 0.1 10 3/uL 0.0-0.7 [facility] Immature Granulocyte # (Auto) 0.01 10 3/uL 0.00-0.03 [facility] Total Complement (CH50) >60 U/mL >41 F [facility] Comment on above: Age Male [...] to determine out of range values.Performed at: [facility] [id number] Director: Santiago Madrid PhD, Phone: [phone] Urine Bacteria SMALL #/HPF Abnormal NONE SEEN [facility] Urine Occult Blood Negative NEGATIVE [facility] Urine Other Casts SEEN #/LPF Abnormal NONE SEEN [facility] Urine Other Crystals None Seen #/HPF None Seen [facility] Urine RBC 0-2 #/HPF 0-2 [facility] Urine Renal Epithelial Cells FEW #/LPF Abnormal NONE SEEN [facility] Urine Squamous Epithelial Cells MODERATE #/LPF Abnormal NONE/RARE [facility] Urine WBC 10-20 #/HPF Abnormal NONE SEEN [facility] Platelet mean volume Auto (B ld) [Entitic vol]on 02-10-2024 Platelet mean volume (Bld) [Entitic vol] 9.1 fL Low 9.5-13.5 [facility] Platelets Auto (Bld) [#/Vol] on 02-10-2024 Platelets (Bld) [#/Vol] 195 10 3/uL 150-450 [facility] RBC Auto (Bld) [#/Vol]on RBC (Bld) [#/Vol] 4.09 10 6/uL Low 4.20-5.40 [facility] Serum or plasma albumin/glob ulin mass ratioon 02-10-2024 Albumin/Globulin [Mass ratio] 1.2 {ratio} [facility] Serum or plasma anion gap de terminationon 02-10-2024 Anion gap [Moles/Vol] 16.3 mmol/L Fi [facility] Serum or plasma complement C 3 measurement (mass/volume)on 02-10-2024 Complement C3 [Mass/Vol] 129 mg/dL 82-167 [facility] Serum or plasma complement C 4 measurement (mass/volume)on 02-10-2024 Complement C4 [Mass/Vol] 22 mg/dL 12-38 [facility] Comment on above: Performed at: [facility] [place] [id number] Director: Santiago Madrid PhD, Phone: [phone] Basophils Auto (Bld) [#/Vol] on 01-25-2024 Basophils (Bld) [#/Vol] 0.1 10 3/uL 0.0-0.1 [facility] Basophils/100 WBC Auto (Bld) on 01-25-2024 Basophils/100 WBC (Bld) 1.5 % 0.2-2.0 F [facility] Eosinophils/100 WBC Auto (Bl d)on 01-25-2024 Eosinophils/100 WBC (Bld) 1.7 % 0.9-7.0 [facility] Erythrocyte distribution wid th Auto (RBC) [Ratio]on 01-25-2024 Erythrocyte distribution width (RBC) [Ratio] 13.4 % 11.0-15.0 [facility] Estimated glomerular filtrat ion rate (GFR) non- Americanon 01-25-2024 GFR/1.73 sq M.predicted among non-blacks MDRD (S/P/Bld) [Vol rate/Area] mL/min/{1.73_m2} >=60 [facility] Globulin Calc (S) [Mass/Vol] on 01-25-2024 Globulin (S) [Mass/Vol] 3.5 g/dL F [facility] Hematocrit Auto (Bld) [Volum e fraction]on 01-25-2024 Hematocrit (Bld) [Volume fraction] 40.6 % 36.0-48.0 [facility] Hemoglobin [Mass/volume] in Bloodon 01-25-2024 Hemoglobin (Bld) [Mass/Vol] 12.9 g/dL 12.0-16.0 [facility] Laboratory - Chemistry and C hemistry - challengeon 01-25-2024 Albumin [Mass/Vol] 3.8 g/dL 3.4-5.0 [facility] ALP [Catalytic activity/Vol] 43 U/L Low 46-116 [facility] ALT [Catalytic activity/Vol] 24 U/L 14-59 [facility] AST [Catalytic activity/Vol] 20 U/L 15-37 [facility] Bilirubin [Mass/Vol] 0.5 mg/dL 0.2-1.0 [facility] Calcium [Mass/Vol] 9.0 mg/dL 8.5-10.1 [facility] Chloride [Moles/Vol] 103 mmol/L 98-107 [facility] CO2 [Moles/Vol] 28.8 mmol/L 21.0-32.0 [facility] Creatinine [Mass/Vol] 0.78 mg/dL 0.55-1.02 [facility] GFR/1.73 sq M.predicted MDRD (S/P/Bld) [Vol rate/Area] mL/min/{1.73_m2} >=60 [facility] Glucose [Mass/Vol] 91 mg/dL 74-106 [facility] Potassium [Moles/Vol] 4.4 mmol/L 3.5-5.1 [facility] Protein [Mass/Vol] 7.3 g/dL 6.4-8.2 [facility] Sodium [Moles/Vol] 139 mmol/L 136-145 [facility] Urea nitrogen [Mass/Vol] 17.0 mg/dL 7.0-18.0 [facility] Urea nitrogen/Creatinine [Mass ratio] 21.8 mg/mg [facility] Bilirubin Ql (U) MODERATE Abnormal NEGATIVE [facility] Glucose (U) [Mass/Vol] Negative NEGATIVE Fi [facility]aPending sale to [facility] Ketones Ql (U) Negative NEGATIVE [facility] pH (U) 7.0 [pH] 5.0-9.0 [facility] Specific gravity (U) [Rel density] 1.015 1.005-1.025 [facility] Urobilinogen Qn (U) 0.2 {Paul'U}/dL 0.2-1.0 [facility] Laboratory - Hematology and Cell countson 01-25-2024 ESR (Bld) [Velocity] 72 mm/h High <=30 [facility] Immature granulocytes/100 WBC (Bld) 0.3 % 0.0-0.5 [facility] Laboratory - Specimen inform ationon 01-25-2024 Appearance (U) CLOUDY Abnormal CLEAR [facility] Color (U) LT. YELLOW YELLOW [facility] Laboratory - Urinalysison Leukocyte esterase Test strip Ql (U) LARGE Abnormal NEGATIVE [facility] Mucus Ql (Urine sed) NONE SEEN NONE SEEN [facility] Nitrite Ql (U) Negative NEGATIVE [facility] Protein Ql (U) Negative NEG/TRACE [facility] Leukocytes [#/volume] correc sandip for nucleated erythrocytes in Blood by Automated counon 01-25-2024 WBC corrected for nucl RBC Auto (Bld) [#/Vol] 5.9 10 3/uL 4.0-11.0 [facility] Lymphocytes Auto (Bld) [#/Vo l]on 01-25-2024 Lymphocytes (Bld) [#/Vol] 1.3 10 3/uL 1.2-3.8 [facility] Lymphocytes/100 WBC Auto (Bl d)on 01-25-2024 Lymphocytes/100 WBC (Bld) 21.3 % 20.5-60.0 [facility] MCH Auto (RBC) [Entitic mass ]on 01-25-2024 MCH (RBC) [Entitic mass] 30.5 pg 26.7-34.0 [facility] MCHC Auto (RBC) [Mass/Vol]on 01-25-2024 MCHC (RBC) [Mass/Vol] 31.8 g/dL 29.9-35.2 [facility] MCV Auto (RBC) [Entitic vol] on 01-25-2024 MCV (RBC) [Entitic vol] 96.0 fL 81.0-99.0 [facility] Monocytes Auto (Bld) [#/Vol] on 01-25-2024 Monocytes (Bld) [#/Vol] 0.6 10 3/uL 0.3-0.8 [facility] Monocytes/100 WBC Auto (Bld) on 01-25-2024 Monocytes/100 WBC (Bld) 9.3 % 1.7-12.0 [facility] Neutrophils Auto (Bld) [#/Vo l]on 01-25-2024 Neutrophils (Bld) [#/Vol] 3.9 10 3/uL 1.4-6.5 [facility] Neutrophils/100 WBC Auto (Bl d)on 01-25-2024 Neutrophils/100 WBC (Bld) 65.9 % 43.0-75.0 [facility] No Panel Informationon 01-24 Eosinophils # (Auto) 0.1 10 3/uL 0.0-0.7 [facility] Immature Granulocyte # (Auto) 0.02 10 3/uL 0.00-0.03 [facility] Total Complement (CH50) >60 U/mL >41 F [facility] Comment on above: Age Male [...] to determine out of range values.Performed at: [facility] [address] [id number] Director: Santiago Madrid PhD, Phone: [phone] Urine Bacteria LARGE #/HPF Abnormal NONE SEEN [facility] Urine Occult Blood Negative NEGATIVE [facility] Urine Other Casts NONE SEEN #/LPF NONE SEEN [facility] Urine Other Crystals None Seen #/HPF None Seen [facility] Urine RBC 0-2 #/HPF 0-2 [facility] Urine Squamous Epithelial Cells MANY #/LPF Abnormal NONE/RARE [facility] Urine Transitional Epithelial Cells FEW #/LPF Abnormal NONE SEEN [facility] Urine WBC 75-100 #/HPF Abnormal NONE SEEN [facility] Platelet mean volume Auto (B ld) [Entitic vol]on 01-25-2024 Platelet mean volume (Bld) [Entitic vol] 9.2 fL Low 9.5-13.5 [facility] Platelets Auto (Bld) [#/Vol] on 01-25-2024 Platelets (Bld) [#/Vol] 208 10 3/uL 150-450 [facility] RBC Auto (Bld) [#/Vol]on RBC (Bld) [#/Vol] 4.23 10 6/uL 4.20-5.40 [facility] Serum or plasma albumin/glob ulin mass ratioon 01-25-2024 Albumin/Globulin [Mass ratio] 1.1 {ratio} [facility] Serum or plasma anion gap de terminationon 01-25-2024 Anion gap [Moles/Vol] 11.6 mmol/L [facility] Serum or plasma complement C 3 measurement (mass/volume)on 01-25-2024 Complement C3 [Mass/Vol] 133 mg/dL 82-167 [facility] Serum or plasma complement C 4 measurement (mass/volume)on 01-25-2024 Complement C4 [Mass/Vol] 22 mg/dL 12-38 [facility] Comment on above: Performed at: [facility] [address] [id number] Director: Santiago Madrid PhD, Phone: [phone] Basophils Auto (Bld) [#/Vol] on 12-04-2023 Basophils (Bld) [#/Vol] 0.1 10 3/uL 0.0-0.1 [facility] Basophils/100 WBC Auto (Bld) on 12-04-2023 Basophils/100 WBC (Bld) 1.7 % 0.2-2.0 F [facility] Eosinophils/100 WBC Auto (Bl d)on 12-04-2023 Eosinophils/100 WBC (Bld) 2.0 % 0.9-7.0 [facility] Erythrocyte distribution wid th Auto (RBC) [Ratio]on 12-04-2023 Erythrocyte distribution width (RBC) [Ratio] 13.3 % 11.0-15.0 [facility] Hematocrit Auto (Bld) [Volum e fraction]on 12-04-2023 Hematocrit (Bld) [Volume fraction] 37.8 % 36.0-48.0 [facility] Hemoglobin [Mass/volume] in Bloodon 12-04-2023 Hemoglobin (Bld) [Mass/Vol] 12.0 g/dL 12.0-16.0 [facility] Laboratory - Hematology and Cell countson 12-04-2023 Immature granulocytes/100 WBC (Bld) 0.2 % 0.0-0.5 [facility] Leukocytes [#/volume] correc sandip for nucleated erythrocytes in Blood by Automated counon 12-04-2023 WBC corrected for nucl RBC Auto (Bld) [#/Vol] 6.0 10 3/uL 4.0-11.0 [facility] Lymphocytes Auto (Bld) [#/Vo l]on 12-04-2023 Lymphocytes (Bld) [#/Vol] 1.1 10 3/uL Low 1.2-3.8 [facility] Lymphocytes/100 WBC Auto (Bl d)on 12-04-2023 Lymphocytes/100 WBC (Bld) 18.2 % Low 20.5-60.0 [facility] MCH Auto (RBC) [Entitic mass ]on 12-04-2023 MCH (RBC) [Entitic mass] 30.5 pg 26.7-34.0 [facility] MCHC Auto (RBC) [Mass/Vol]on 12-04-2023 MCHC (RBC) [Mass/Vol] 31.7 g/dL 29.9-35.2 [facility] MCV Auto (RBC) [Entitic vol] on 12-04-2023 MCV (RBC) [Entitic vol] 95.9 fL 81.0-99.0 [facility] Monocytes Auto (Bld) [#/Vol] on 12-04-2023 Monocytes (Bld) [#/Vol] 0.6 10 3/uL 0.3-0.8 [facility] Monocytes/100 WBC Auto (Bld) on 12-04-2023 Monocytes/100 WBC (Bld) 10.3 % 1.7-12.0 [facility] Neutrophils Auto (Bld) [#/Vo l]on 12-04-2023 Neutrophils (Bld) [#/Vol] 4.1 10 3/uL 1.4-6.5 [facility] Neutrophils/100 WBC Auto (Bl d)on 12-04-2023 Neutrophils/100 WBC (Bld) 67.6 % 43.0-75.0 [facility] No Panel Informationon 12-03 Eosinophils # (Auto) 0.1 10 3/uL 0.0-0.7 [facility] Immature Granulocyte # (Auto) 0.01 10 3/uL 0.00-0.03 [facility] Platelet mean volume Auto (B ld) [Entitic vol]on 12-04-2023 Platelet mean volume (Bld) [Entitic vol] 9.2 fL Low 9.5-13.5 [facility] Platelets Auto (Bld) [#/Vol] on 12-04-2023 Platelets (Bld) [#/Vol] 193 10 3/uL 150-450 [facility] RBC Auto (Bld) [#/Vol]on RBC (Bld) [#/Vol] 3.94 10 6/uL Low 4.20-5.[address] [facility] [address] LUNG CANCER SCREENINGon 0 12-03-2022 [...] MARII TURCIOS Date: 2022-12-03 08:20 Normal [facility] CBC AUTO DIFFon 10-22-2022 BASO # 0.1 103/ul Normal 0.0-0.1 [facility] Comment on above: Performed By: #### C BC #### [facility] [address] [address] [address] Renato Weller Basophils/100 WBC (Bld) 1.5 % Normal 0.2-2.0 [facility] Comment on above: Performed By: #### C BC #### [facility] [address] [address] [address] Renato Weller EO # 0.1 103/ul Normal 0.0-0.7 [facility] Comment on above: Performed By: #### C BC #### [facility] [address] [address] [address] Renato Weller Eosinophils/100 WBC (Bld) 1.4 % Normal 0.9-7.0 [facility] Comment on above: Performed By: #### C BC #### [facility] [address] [address] [address] Renato Weller Erythrocyte distribution width (RBC) [Ratio] 13.4 % Normal 11.0-15.0 [facility] Comment on above: Performed By: #### C BC #### [facility] [address] [place] [address] Dr. Renato Weller Hematocrit (Bld) [Volume fraction] 40.8 % Normal 36.0-48.0 [facility] Comment on above: Performed By: #### C BC #### [facility] [address] [place] [address] Dr. Renato Weller Hemoglobin (Bld) [Mass/Vol] 12.9 g/dL Normal 12.0-16.0 [facility] Comment on above: Performed By: #### C BC #### [facility] [address] [place] [address] Dr. Renato Weller IG # 0.01 10e3/ul Normal 0.00-0.03 [facility] Comment on above: Performed By: #### C BC #### [facility] [address] [place] [address] Dr. Renato Weller IG % 0.2 % Normal 0.0-0.5 [facility] Comment on above: Performed By: #### C BC #### [facility] [address] [place] [address] Dr. Renato Weller LYMPH # 1.0 103/ul Critically low 1.2-3.8 [facility] Comment on above: Performed By: #### C BC #### [facility] [address] [place] [address] Dr. Renato Weller Lymphocytes/100 WBC (Bld) 16.2 % Critically low 20.5-60.0 [facility] Comment on above: Performed By: #### C BC #### [facility] [address] [place] [address] Dr. Renato Weller MANUAL DIFF REQ NO Normal [facility] Comment on above: Performed By: #### C BC #### [facility] [address] [place] [address] Dr. Renato Weller MCH (RBC) [Entitic mass] 30.2 pg Normal 26.7-34.0 [facility] Comment on above: Performed By: #### C BC #### [facility] [address] [place] [address] Dr. Renato Weller MCHC (RBC) [Mass/Vol] 31.6 g/dL Normal 29.9-35.2 [facility] Comment on above: Performed By: #### C BC #### [facility] [address] [place] [address] Dr. Renato Weller MCV (RBC) [Entitic vol] 95.6 fL Normal 81.0-99.0 [facility] Comment on above: Performed By: #### C BC #### [facility] [address] [place] [address] Dr. Renato Weller MONO # 0.5 103/ul Normal 0.3-0.8 [facility] Comment on above: Performed By: #### C BC #### [facility] [address] [place] [address] Dr. Renato Weller Monocytes/100 WBC (Bld) 8.2 % Normal 1.7-12.0 [facility] Comment on above: Performed By: #### C BC #### [facility] [address] [place] [address] Dr. Renato Weller NEUT # 4.3 103/ul Normal 1.4-6.5 [facility] Comment on above: Performed By: #### C BC #### [facility] [address] [place] [address] Dr. Renato Weller Neutrophils/100 WBC (Bld) 72.5 % Normal 43.0-75.0 [facility] Comment on above: Performed By: #### C BC #### [facility] [address] [place] [address] Dr. Renato Weller Platelet mean volume (Bld) [Entitic vol] 9.4 fL Critically low 9.5-13.5 [facility] Comment on above: Performed By: #### C BC #### [facility] [address] [address] [address] Renato Weller PLT 206 103/ul Normal 150-450 [facility] Comment on above: Performed By: #### C BC #### [facility] [address] [address] [address] Renato Weller RBC 4.27 106/ul Normal 4.20-5.40 [facility] Comment on above: Performed By: #### C BC #### [facility] [address] [place] [address] Dr. Renato Weller WBC 5.9 103/ul Normal 4.0-11.0 [facility] Comment on above: Performed By: #### C BC #### [facility] [address] [place] [address] Dr. Renato Weller LIPID PROFILEon 10-22-2022 CHOL-HDL RATIO NORM SEE BELOW Normal [facility] Comment on above: Result Comment: 3.3 - 4.4 LOW RISK 4.4 - 7.1 AVERAGE RISK 7.1 - 11.0 MODERATE RISK >11.0 HIGH RISK Performed By: #### L IPID, CMP #### [facility] [address] [place] [address] Dr. Renato Weller Cholesterol [Mass/Vol] 162 mg/dL Normal <=200 [facility] [facility] Comment on above: Performed By: #### L IPID, CMP #### [facility] [address] [place] [address] Dr. Renato Weller Cholesterol in HDL [Mass/Vol] 69 mg/dL Critically high 40-60 [facility] Comment on above: Performed By: #### L IPID, CMP #### [facility] [address] [place] [address] Dr. Renato Weller Cholesterol in LDL [Mass/Vol] 81.8 mg/dL Normal [facility] Comment on above: Performed By: #### L IPID, CMP #### [facility] [address] [place] [address] Dr. Renato Weller Cholesterol.total/Choles terol in HDL [Mass ratio] 2.3 {ratio} Normal [facility] Comment on above: Performed By: #### L IPID, CMP #### [facility] [address] [address] [address] Renato Weller HDL NORMAL > or = 60 mg/dl - LO W CARDIOVASCULAR RISK <40 mg/dl - HIGH CARDIOVASCULAR RISK Normal [facility] Comment on above: Performed By: #### L IPID, CMP #### [facility] [address] [place] [address] Dr. Renato Weller LDL CALC NORMAL SEE BELOW Normal [facility] Comment on above: Result Comment: <100 mg/dl OPTIMAL 100 - 129 mg/dl NEAR OR ABOVE OPTIMAL 130 - 159 mg/dl BORDERLINE HIGH 160 - 189 mg/dl HIGH >190 mg/dl VERY HIGH Performed By: #### L IPID, CMP #### [facility] [address] [place] [address] Dr. Renato Weller Triglyceride [Mass/Vol] 56 mg/dL Normal <=150 T [facility] Comment on above: Performed By: #### L IPID, CMP #### [facility] [address] [place] [address] Dr. Renato Weller VLDL CALC 11.2 mg/dL Normal [facility] Comment on above: Performed By: #### L IPID, CMP #### [facility] [address] [place] [address] Dr. Renato Weller PROF 14(COMP METB)on 023 Albumin [Mass/Vol] 3.7 g/dL Normal 3.4-5.0 [facility] Comment on above: Performed By: #### L IPID, CMP #### [facility] [address] [place] [address] Dr. Renato Weller Albumin/Globulin [Mass ratio] 1.1 {ratio} Normal [facility] Comment on above: Performed By: #### L IPID, CMP #### [facility] [address] [place] [address] Dr. Renato Weller ALP [Catalytic activity/Vol] 36 U/L Critically low 46-116 [facility] Comment on above: Performed By: #### L IPID, CMP #### [facility] [address] [address] [address] Renato Weller ALT [Catalytic activity/Vol] 24 U/L Normal 14-59 [facility] Comment on above: Performed By: #### L IPID, CMP #### [facility] [address] [address] [address] Renato Weller Anion gap [Moles/Vol] 12.2 mmol/L Normal Th [facility] Comment on above: Performed By: #### L IPID, CMP #### [facility] [address] [address] [address] Renato Weller AST [Catalytic activity/Vol] 18 U/L Normal 15-37 [facility] Comment on above: Performed By: #### L IPID, CMP #### [facility] [address] [place] [address] Dr. Renato Weller Bilirubin [Mass/Vol] 0.3 mg/dL Normal 0.2-1.0 [facility] Comment on above: Performed By: #### L IPID, CMP #### [facility] [address] [place] [address] Dr. Renato Weller Calcium [Mass/Vol] 9.0 mg/dL Normal 8.5-10.1 [facility] Comment on above: Performed By: #### L IPID, CMP #### [facility] [address] [place] [address] Dr. Renato Weller Chloride [Moles/Vol] 102 mmol/L Normal 98-107 [facility] Comment on above: Performed By: #### L IPID, CMP #### [facility] [address] [place] [address] Dr. Renato Weller CO2 [Moles/Vol] 29.1 mmol/L Normal 21.0-32.0 [facility] Comment on above: Performed By: #### L IPID, CMP #### [facility] [address] [place] [address] Dr. Renato Weller Creatinine [Mass/Vol] 0.83 mg/dL Normal 0.55-1.02 [facility] Comment on above: Performed By: #### L IPID, CMP #### [facility] [address] [address] [address] Renato Weller EGFR-AF GIBRALTARIAN >60 Normal >=60 [facility] Comment on above: Performed By: #### L IPID, CMP #### [facility] [address] [address] [address] Renato Weller EGFR-NON AF GIBRALTARIAN >60 Normal >=60 [facility] Comment on above: Performed By: #### L IPID, CMP #### [facility] [address] [address] [address] Renato Weller Globulin (S) [Mass/Vol] 3.5 g/dL Normal T [facility] Comment on above: Performed By: #### L IPID, CMP #### [facility] [address] [place] [address] Dr. Renato Weller Glucose [Mass/Vol] 85 mg/dL Normal 74-106 [facility] Comment on above: Performed By: #### L IPID, CMP #### [facility] [address] [address] [address] Renato Weller Potassium [Moles/Vol] 4.3 mmol/L Normal 3.5-5.1 [facility] Comment on above: Performed By: #### L IPID, CMP #### [facility] [address] [place] [address] Dr. Renato Weller Protein [Mass/Vol] 7.2 g/dL Normal 6.4-8.2 [facility] Comment on above: Performed By: #### L IPID, CMP #### [facility] [address] [place] [address] Dr. Renato Weller Sodium [Moles/Vol] 139 mmol/L Normal 136-145 [facility] Comment on above: Performed By: #### L IPID, CMP #### [facility] [address] [address] [address] Renato Weller Urea nitrogen [Mass/Vol] 14.0 mg/dL Normal 7.0-18.0 [facility] Comment on above: Performed By: #### L IPID, CMP #### [facility] [address] [address] [address] Renato Weller Urea nitrogen/Creatinine [Mass ratio] 16.9 mg/mg Normal [facility] Comment on above: Performed By: #### L IPID, CMP #### [facility] [address] [address] [address] Renato Weller C3 and C4 COMPLEMENTon 08-19 Complement C3, Serum 110 mg/dL Normal 82-167 [facility] Comment on above: Performed By: #### U AMIC #### [facility] [address] [place] [address] Dr. Renato Weller Complement C4, Serum 20 mg/dL Normal 12-38 [facility] Comment on above: Performed By: #### U AMIC #### [facility] [address] [place] [address] Dr. Renato Weller COMPLEMENT TOTAL (CH50)on Complement, Total (CH50) >60 Normal >41 [facility] Comment on above: Result Comment: Age [...] values. Performed By: #### C H50T #### [facility] [address] [place] [address] Dr. Renato Weller CBC AUTO DIFFon 08-18-2022 BASO # 0.1 103/ul Normal 0.0-0.1 [facility] Comment on above: Performed By: #### C H50T #### [facility] [address] [place] [address] Dr. Renato Weller Basophils/100 WBC (Bld) 1.8 % Normal 0.2-2.0 [facility] Comment on above: Performed By: #### C H50T #### [facility] [address] [place] [address] Dr. Renato Weller EO # 0.1 103/ul Normal 0.0-0.7 [facility] Comment on above: Performed By: #### C H50T #### [facility] [address] [place] [address] Dr. Renato Weller Eosinophils/100 WBC (Bld) 1.8 % Normal 0.9-7.0 [facility] Comment on above: Performed By: #### C H50T #### [facility] [address] [place] [address] Dr. Renato Weller Erythrocyte distribution width (RBC) [Ratio] 13.2 % Normal 11.0-15.0 [facility] Comment on above: Performed By: #### C H50T #### [facility] [address] [place] [address] Dr. Renato Weller Hematocrit (Bld) [Volume fraction] 39.9 % Normal 36.0-48.0 [facility] Comment on above: Performed By: #### C H50T #### [facility] [address] [place] [address] Dr. Renato Weller Hemoglobin (Bld) [Mass/Vol] 13.2 g/dL Normal 12.0-16.0 [facility] Comment on above: Performed By: #### C H50T #### [facility] [address] [place] [address] Dr. Renato Weller IG # 0.02 10e3/ul Normal 0.00-0.03 [facility] Comment on above: Performed By: #### C H50T #### [facility] [address] [place] [address] Dr. Renato Weller IG % 0.4 % Normal 0.0-0.5 [facility] Comment on above: Performed By: #### C H50T #### [facility] [address] [place] [address] Dr. Renato Weller LYMPH # 1.1 103/ul Critically low 1.2-3.8 [facility] Comment on above: Performed By: #### C H50T #### [facility] [address] [place] [address] Dr. Renato Weller Lymphocytes/100 WBC (Bld) 18.4 % Critically low 20.5-60.0 [facility] Comment on above: Performed By: #### C H50T #### [facility] [address] [place] [address] Dr. Renato Weller MANUAL DIFF REQ NO Normal [facility] Comment on above: Performed By: #### C H50T #### [facility] [address] [place] [address] Dr. Renato Weller MCH (RBC) [Entitic mass] 31.0 pg Normal 26.7-34.0 [facility] Comment on above: Performed By: #### C H50T #### [facility] [address] [place] [address] Dr. Renato Weller MCHC (RBC) [Mass/Vol] 33.1 g/dL Normal 29.9-35.2 [facility] Comment on above: Performed By: #### C H50T #### [facility] [address] [place] [address] Dr. Renato Weller MCV (RBC) [Entitic vol] 93.7 fL Normal 81.0-99.0 [facility] Comment on above: Performed By: #### C H50T #### [facility] [address] [place] [address] Dr. Renato Weller MONO # 0.5 103/ul Normal 0.3-0.8 [facility] Comment on above: Performed By: #### C H50T #### [facility] [address] [place] [address] Dr. Renato Weller Monocytes/100 WBC (Bld) 8.6 % Normal 1.7-12.0 [facility] Comment on above: Performed By: #### C H50T #### [facility] [address] [place] [address] Dr. Renato Weller NEUT # 3.9 103/ul Normal 1.4-6.5 [facility] Comment on above: Performed By: #### C H50T #### [facility] [address] [address] [address] Renato Weller Neutrophils/100 WBC (Bld) 69.0 % Normal 43.0-75.0 [facility] Comment on above: Performed By: #### C H50T #### [facility] [address] [address] [address] Renato Weller Platelet mean volume (Bld) [Entitic vol] 9.4 fL Critically low 9.5-13.5 [facility] Comment on above: Performed By: #### C H50T #### [facility] [address] [place] [address] Dr. Renato Weller PLT 191 103/ul Normal 150-450 [facility] Comment on above: Performed By: #### C H50T #### [facility] [address] [place] [address] Dr. Renato Weller RBC 4.26 106/ul Normal 4.20-5.40 [facility] Comment on above: Performed By: #### C H50T #### [facility] [address] [place] [address] Dr. Renato Weller WBC 5.7 103/ul Normal 4.0-11.0 [facility] Comment on above: Performed By: #### C H50T #### [facility] [address] [place] [address] Dr. Renato Weller MAGNESIUMon 08-18-2022 Magnesium [Mass/Vol] 2.1 mg/dL Normal 1.8-2.4 [facility] Comment on above: Performed By: #### L IPID, CMP #### [facility] [address] [place] [address] Dr. Renato Weller PHOSPHORUSon 08-18-2022 Phosphate [Mass/Vol] 3.5 mg/dL Normal 2.6-4.7 [facility] Comment on above: Performed By: #### L IPID, CMP #### [facility] [address] [place] [address] Dr. Renato Weller PROF 14(COMP METB)on 023 Albumin [Mass/Vol] 3.7 g/dL Normal 3.4-5.0 [facility] Comment on above: Performed By: #### L IPID, CMP #### [facility] [address] [address] [address] Renato Weller Albumin/Globulin [Mass ratio] 1.2 {ratio} Normal [facility] Comment on above: Performed By: #### L IPID, CMP #### [facility] [address] [address] [address] Renato Weller ALP [Catalytic activity/Vol] 37 U/L Critically low 46-116 [facility] Comment on above: Performed By: #### L IPID, CMP #### [facility] [address] [address] [address] Renato Weller ALT [Catalytic activity/Vol] 18 U/L Normal 14-59 [facility] Comment on above: Performed By: #### L IPID, CMP #### [facility] [address] [address] [address] Renato Weller Anion gap [Moles/Vol] 13.5 mmol/L Normal [facility] Comment on above: Performed By: #### L IPID, CMP #### [facility] [address] [place] [address] Dr. Renato Weller AST [Catalytic activity/Vol] 19 U/L Normal 15-37 [facility] Comment on above: Performed By: #### L IPID, CMP #### [facility] [address] [address] [address] Renato Weller Bilirubin [Mass/Vol] 0.4 mg/dL Normal 0.2-1.0 [facility] Comment on above: Performed By: #### L IPID, CMP #### [facility] [address] [address] [address] Renato Weller Calcium [Mass/Vol] 8.7 mg/dL Normal 8.5-10.1 [facility] Comment on above: Performed By: #### L IPID, CMP #### [facility] [address] [place] [address] Dr. Renato Weller Chloride [Moles/Vol] 104 mmol/L Normal 98-107 [facility] Comment on above: Performed By: #### L IPID, CMP #### [facility] [address] [place] [address] Dr. Renato Weller CO2 [Moles/Vol] 27.8 mmol/L Normal 21.0-32.0 [facility] Comment on above: Performed By: #### L IPID, CMP #### [facility] [address] [place] [address] Dr. Renato Weller Creatinine [Mass/Vol] 0.67 mg/dL Normal 0.55-1.02 [facility] Comment on above: Performed By: #### L IPID, CMP #### [facility] [address] [place] [address] Dr. Renato Weller EGFR-AF GIBRALTARIAN >60 Normal >=60 [facility] Comment on above: Performed By: #### L IPID, CMP #### [facility] [address] [place] [address] Dr. Renato Welelr EGFR-NON AF GIBRALTARIAN >60 Normal >=60 [facility] Comment on above: Performed By: #### L IPID, CMP #### [facility] [address] [place] [address] Dr. Renato Weller Globulin (S) [Mass/Vol] 3.0 g/dL Normal T [facility] Comment on above: Performed By: #### L IPID, CMP #### [facility] [address] [place] [address] Dr. Renato Weller Glucose [Mass/Vol] 87 mg/dL Normal 74-106 [facility] Comment on above: Performed By: #### L IPID, CMP #### [facility] [address] [place] [address] Dr. Renato Weller Potassium [Moles/Vol] 4.3 mmol/L Normal 3.5-5.1 [facility] Comment on above: Performed By: #### L IPID, CMP #### [facility] [address] [place] [address] Dr. Renato Weller Protein [Mass/Vol] 6.7 g/dL Normal 6.4-8.2 [facility] Comment on above: Performed By: #### L IPID, CMP #### [facility] [address] [place] [address] Dr. Renato Weller Sodium [Moles/Vol] 141 mmol/L Normal 136-145 [facility] Comment on above: Performed By: #### L IPID, CMP #### [facility] [address] [place] [address] Dr. Renato Weller Urea nitrogen [Mass/Vol] 11.0 mg/dL Normal 7.0-18.0 [facility] Comment on above: Performed By: #### L IPID, CMP #### [facility] [address] [place] [address] Dr. Renato Weller Urea nitrogen/Creatinine [Mass ratio] 16.4 mg/mg Normal [facility] Comment on above: Performed By: #### L IPID, CMP #### [facility] [address] [place] [address] Dr. Renato Weller SED RATE [facility] 2022 SED RATE 43 mm/hr Critically high <=30 [facility] Comment on above: Performed By: #### S EDR #### [facility] [address] [place] [address] Dr. Renato Weller UA RANDOM W/MICROSCOPICon BACTERIA NONE SEEN Normal NONE SEEN [facility] Comment on above: Performed By: #### U AMIC #### [facility] [address] [place] [address] Dr. Renato Weller Bilirubin Ql (U) LARGE Abnormal NEGATIVE [facility] Comment on above: Performed By: #### U AMIC #### [facility] [address] [place] [address] Dr. Renato Weller CAST NONE SEEN Normal NONE SEEN [facility] Comment on above: Performed By: #### U AMIC #### [facility] [address] [place] [address] Dr. Renato Weller Clarity (U) CLEAR Normal CLEAR [facility] Comment on above: Performed By: #### U AMIC #### [facility] [address] [address] [address] Renato Weller Color (U) LT. YELLOW Normal YELLOW [facility] Comment on above: Performed By: #### U AMIC #### [facility] [address] [address] [address] Renato Weller Crystals LM Nom (Urine sed) NONE SEEN Normal NONE SEEN [facility] Comment on above: Performed By: #### U AMIC #### [facility] [address] [address] [address] Renato Weller Epithelial cells LM Ql (Urine sed) NONE SEEN Normal NONE SEEN /RARE [facility] Comment on above: Performed By: #### U AMIC #### [facility] [address] [place] [address] Dr. Renato Weller Glucose Ql (U) Negative Normal NEGATIVE [facility] Comment on above: Performed By: #### U AMIC #### [facility] [address] [place] [address] Dr. Renato Weller Hemoglobin Ql (U) Negative Normal NEGATIVE [facility] Comment on above: Performed By: #### U AMIC #### [facility] [address] [address] [address] Renato Weller Ketones Ql (U) Negative Normal NEGATIVE [facility] Comment on above: Performed By: #### U AMIC #### [facility] [address] [address] [address] Renato Weller LEUKOCYTES SMALL Abnormal NEGATIVE [facility] Comment on above: Performed By: #### U AMIC #### [facility] [address] [address] [address] Renato Weller MUCOUS NONE SEEN Normal NONE SEEN [facility] Comment on above: Performed By: #### U AMIC #### [facility] [address] [place] [address] Dr. Renato Weller Nitrite Ql (U) Negative Normal NEGATIVE [facility] Comment on above: Performed By: #### U AMIC #### [facility] [address] [place] [address] Dr. Renato Weller pH (U) 7.0 [pH] Normal 5-9 [facility] Comment on above: Performed By: #### U AMIC #### [facility] [address] [place] [address] Dr. Renato Weller RBC 0-2 Normal 0-2 [facility] Comment on above: Performed By: #### U AMIC #### [facility] [address] [place] [address] Dr. Renato Weller SPEC GRAVITY 1.010 Normal 1.005-<=1.02 5 [facility] Comment on above: Performed By: #### U AMIC #### [facility] [address] [place] [address] Dr. Renato Weller UA PROTEIN Negative Normal NEGATIVE/ TRACE [facility] Comment on above: Performed By: #### U AMIC #### [facility] [address] [place] [address] Dr. Renato Weller Urobilinogen Qn (U) 0.2 {Paul'U}/dL Normal 0.2 - 1. 0 [facility] Comment on above: Performed By: #### U AMIC #### [facility] [address] [place] [address] Dr. Renato Weller WBC NONE SEEN Normal NONE SEEN [facility] Comment on above: Performed By: #### U AMIC #### [facility] [address] [place] [address] Dr. Renato Weller CULTURE URINEon 05-12-2022 CULTURE URINE Culture Observations : LIGHT GROWTH OF MIXED GENITAL ROMEL. NO POTENTIAL PATHOGENS SEEN. Normal [facility] Comment on above: Performed By: #### U AMIC #### [facility] [address] [place] [address] Dr. Renato Weller UA RANDOM W/MICROSCOPICon BACTERIA TRACE Abnormal NONE SEEN [facility] Comment on above: Performed By: #### C H50T #### [facility] [address] [place] [address] Dr. Renato Weller Bilirubin Ql (U) LARGE Abnormal NEGATIVE [facility] Comment on above: Performed By: #### C H50T #### [facility] [address] [place] [address] Dr. Renato Weller CAST NONE SEEN Normal NONE SEEN [facility] Comment on above: Performed By: #### C H50T #### [facility] [address] [place] [address] Dr. Renato Weller Clarity (U) CLEAR Normal CLEAR [facility] Comment on above: Performed By: #### C H50T #### [facility] [address] [place] [address] Dr. Renato Weller Color (U) LT. YELLOW Normal YELLOW [facility] Comment on above: Performed By: #### C H50T #### [facility] [address] [place] [address] Dr. Renato Weller Crystals LM Nom (Urine sed) NONE SEEN Normal NONE SEEN [facility] Comment on above: Performed By: #### C H50T #### [facility] [address] [place] [address] Dr. Renato Weller Epithelial cells LM Ql (Urine sed) MODERATE Abnormal NONE SEEN /RARE [facility] Comment on above: Performed By: #### C H50T #### [facility] [address] [place] [address] Dr. Renato Weller Glucose Ql (U) Negative Normal NEGATIVE [facility] Comment on above: Performed By: #### C H50T #### [facility] [address] [place] [address] Dr. Renato Weller Hemoglobin Ql (U) Negative Normal NEGATIVE [facility] Comment on above: Performed By: #### C H50T #### [facility] [address] [place] [address] Dr. Renato Weller Ketones Ql (U) Negative Normal NEGATIVE [facility] Comment on above: Performed By: #### C H50T #### [facility] [address] [place] [address] Dr. Renato Weller LEUKOCYTES SMALL Abnormal NEGATIVE [facility] Comment on above: Performed By: #### C H50T #### [facility] [address] [place] [address] Dr. Renato Weller MUCOUS NONE SEEN Normal NONE SEEN [facility] Comment on above: Performed By: #### C H50T #### [facility] [address] [place] [address] Dr. Renato Weller Nitrite Ql (U) Negative Normal NEGATIVE [facility] Comment on above: Performed By: #### C H50T #### [facility] [address] [place] [address] Dr. Renato Weller pH (U) 6.0 [pH] Normal 5-9 [facility] Comment on above: Performed By: #### C H50T #### [facility] [address] [place] [address] Dr. Renato Weller RBC 0-2 Normal 0-2 [facility] Comment on above: Performed By: #### C H50T #### [facility] [address] [place] [address] Dr. Renato Weller SPEC GRAVITY 1.025 Normal 1.005-<=1.02 5 [facility] Comment on above: Performed By: #### C H50T #### [facility] [address] [place] [address] Dr. Renato Weller UA PROTEIN Negative Normal NEGATIVE/ TRACE [facility] Comment on above: Performed By: #### C H50T #### [facility] [address] [place] [address] Dr. Renato Weller Urobilinogen Qn (U) 0.2 {Paul'U}/dL Normal 0.2 - 1. 0 [facility] Comment on above: Performed By: #### C H50T #### [facility] [address] [place] [address] Dr. Renato Weller WBC 5-10 Abnormal NONE SEEN [facility] Comment on above: Performed By: #### C H50T #### [facility] [address] [place] [address] Dr. Renato Weller CULTURE URINEon 05-02-2022 CULTURE URINE Culture Observations : MODERATE GROWTH OF MIXED GENITAL ROMEL. PLEASE RESUBMIT CLEAN CATCH MID-STREAM URINE IF CLINICALLY INDICATED. Normal [facility] Comment on above: Performed By: #### U AMIC #### [facility] [address] [place] [address] Dr. Renato Weller UA RANDOM W/MICROSCOPICon BACTERIA LARGE Abnormal NONE SEEN [facility] Comment on above: Performed By: #### U AMIC #### [facility] [address] [place] [address] Dr. Renato Weller Bilirubin Ql (U) MODERATE Abnormal NEGATIVE [facility] Comment on above: Performed By: #### U AMIC #### [facility] [address] [place] [address] Dr. Renato Weller CAST NONE SEEN Normal NONE SEEN [facility] Comment on above: Performed By: #### U AMIC #### [facility] [address] [place] [address] Dr. Renato Weller Clarity (U) CLEAR Normal CLEAR [facility] Comment on above: Performed By: #### U AMIC #### [facility] [address] [place] [address] Dr. Renato Weller Color (U) LT. YELLOW Normal YELLOW [facility] Comment on above: Performed By: #### U AMIC #### [facility] [address] [place] [address] Dr. Renato Weller Crystals LM Nom (Urine sed) NONE SEEN Normal NONE SEEN [facility] Comment on above: Performed By: #### U AMIC #### [facility] [address] [place] [address] Dr. Renato Weller Epithelial cells LM Ql (Urine sed) MODERATE Abnormal NONE SEEN /RARE [facility] Comment on above: Performed By: #### U AMIC #### [facility] [address] [place] [address] Dr. Renato Weller Glucose Ql (U) Negative Normal NEGATIVE [facility] Comment on above: Performed By: #### U AMIC #### [facility] [address] [place] [address] Dr. Renato Weller Hemoglobin Ql (U) LARGE Abnormal NEGATIVE [facility] Comment on above: Performed By: #### U AMIC #### [facility] [address] [address] [address] Renato Weller Ketones Ql (U) Negative Normal NEGATIVE [facility] Comment on above: Performed By: #### U AMIC #### [facility] [address] [address] [address] Renato Weller LEUKOCYTES LARGE Abnormal NEGATIVE [facility] Comment on above: Performed By: #### U AMIC #### [facility] [address] [address] [address] Renato Weller MUCOUS NONE SEEN Normal NONE SEEN [facility] Comment on above: Performed By: #### U AMIC #### [facility] [address] [place] [address] Dr. Renato Weller Nitrite Ql (U) Negative Normal NEGATIVE [facility] Comment on above: Performed By: #### U AMIC #### [facility] [address] [address] [address] Renato Weller pH (U) 6.0 [pH] Normal 5-9 [facility] Comment on above: Performed By: #### U AMIC #### [facility] [address] [address] [address] Renato Weller RBC 5-10 Abnormal 0-2 [facility] Comment on above: Performed By: #### U AMIC #### [facility] [address] [place] [address] Dr. Renato Weller SPEC GRAVITY 1.020 Normal 1.005-<=1.02 5 [facility] Comment on above: Performed By: #### U AMIC #### [facility] [address] [address] [address] Renato Weller UA PROTEIN Negative Normal NEGATIVE/ TRACE [facility] Comment on above: Performed By: #### U AMIC #### [facility] [address] [place] [address] Dr. Renato Weller Urobilinogen Qn (U) 0.2 {Paul'U}/dL Normal 0.2 - 1. 0 [facility] Comment on above: Performed By: #### U AMIC #### [facility] [address] [address] [address] Renato Weller WBC 10- Abnormal NONE SEEN [facility] Comment on above: Performed By: #### U AMIC #### [facility] [address] [address] [address] Renato Weller XR CSPINE MIN 4 [...] with anterior fusion Electronically authenticated by: CASANDRA SEGUNDO Date: 2022-05-01 17:38 Normal [facility] C3 and C4 COMPLEMENTon 04-15 Complement C3, Serum 115 mg/dL Normal 82-167 [facility] Comment on above: Performed By: #### C H50T #### [facility] [address] [place] [address] Dr. Renato Weller Complement C4, Serum 23 mg/dL Normal 12-38 [facility] Comment on above: Performed By: #### C H50T #### [facility] [address] [place] [address] Dr. Renato Weller COMPLEMENT TOTAL (CH50)on Complement, Total (CH50) >60 Normal >41 [facility] Comment on above: Result Comment: [...] values. Performed By: #### C H50T #### [facility] [address] [address] [address] Renato Weller CBC AUTO DIFFon 04-14-2022 BASO # 0.1 103/ul Normal 0.0-0.1 [facility] Comment on above: Performed By: #### C H50T #### [facility] [address] [place] [address] Dr. Renato Weller Basophils/100 WBC (Bld) 1.6 % Normal 0.2-2.0 [facility] Comment on above: Performed By: #### C H50T #### [facility] [address] [place] [address] Dr. Renato Weller EO # 0.1 103/ul Normal 0.0-0.7 [facility] Comment on above: Performed By: #### C H50T #### [facility] [address] [place] [address] Dr. Renato Weller Eosinophils/100 WBC (Bld) 2.0 % Normal 0.9-7.0 [facility] Comment on above: Performed By: #### C H50T #### [facility] [address] [place] [address] Dr. Renato Weller Erythrocyte distribution width (RBC) [Ratio] 12.8 % Normal 11.0-15.0 [facility] Comment on above: Performed By: #### C H50T #### [facility] [address] [place] [address] Dr. Renato Weller Hematocrit (Bld) [Volume fraction] 40.0 % Normal 36.0-48.0 [facility] Comment on above: Performed By: #### C H50T #### [facility] [address] [place] [address] Dr. Renato Weller Hemoglobin (Bld) [Mass/Vol] 12.8 g/dL Normal 12.0-16.0 [facility] Comment on above: Performed By: #### C H50T #### [facility] [address] [place] [address] Dr. Renato Weller IG # 0.02 10e3/ul Normal 0.00-0.03 [facility] Comment on above: Performed By: #### C H50T #### [facility] [address] [place] [address] Dr. Renato Weller IG % 0.4 % Normal 0.0-0.5 [facility] Comment on above: Performed By: #### C H50T #### [facility] [address] [place] [address] Dr. Renato Weller LYMPH # 1.1 103/ul Critically low 1.2-3.8 [facility] Comment on above: Performed By: #### C H50T #### [facility] [address] [place] [address] Dr. Renato Weller Lymphocytes/100 WBC (Bld) 22.2 % Normal 20.5-60.0 [facility] Comment on above: Performed By: #### C H50T #### [facility] [address] [place] [address] Dr. Renato Weller MANUAL DIFF REQ NO Normal [facility] Comment on above: Performed By: #### C H50T #### [facility] [address] [place] [address] Dr. Renato Weller MCH (RBC) [Entitic mass] 31.3 pg Normal 26.7-34.0 [facility] Comment on above: Performed By: #### C H50T #### [facility] [address] [place] [address] Dr. Renato Weller MCHC (RBC) [Mass/Vol] 32.0 g/dL Normal 29.9-35.2 [facility] Comment on above: Performed By: #### C H50T #### [facility] [address] [place] [address] Dr. Renato Weller MCV (RBC) [Entitic vol] 97.8 fL Normal 81.0-99.0 [facility] Comment on above: Performed By: #### C H50T #### [facility] [address] [place] [address] Dr. Renato Weller MONO # 0.5 103/ul Normal 0.3-0.8 [facility] Comment on above: Performed By: #### C H50T #### [facility] [address] [address] [address] Renato Weller Monocytes/100 WBC (Bld) 9.8 % Normal 1.7-12.0 [facility] Comment on above: Performed By: #### C H50T #### [facility] [address] [address] [address] Renato Weller NEUT # 3.2 103/ul Normal 1.4-6.5 [facility] Comment on above: Performed By: #### C H50T #### [facility] [address] [place] [address] Dr. Renato Weller Neutrophils/100 WBC (Bld) 64.0 % Normal 43.0-75.0 [facility] Comment on above: Performed By: #### C H50T #### [facility] [address] [place] [address] Dr. Renato Weller Platelet mean volume (Bld) [Entitic vol] 9.3 fL Critically low 9.5-13.5 [facility] Comment on above: Performed By: #### C H50T #### [facility] [address] [place] [address] Dr. Renato Weller PLT 181 103/ul Normal 150-450 [facility] Comment on above: Performed By: #### C H50T #### [facility] [address] [place] [address] Dr. Renato Weller RBC 4.09 106/ul Critically low 4.20-5.40 [facility] Comment on above: Performed By: #### C H50T #### [facility] [address] [place] [address] Dr. Renato Weller WBC 5.0 103/ul Normal 4.0-11.0 [facility] Comment on above: Performed By: #### C H50T #### [facility] [address] [place] [address] Dr. Renato Weller LIPID PROFILEon 04-14-2022 CHOL-HDL RATIO NORM SEE BELOW Normal [facility] Comment on above: Result Comment: 3.3 - 4.4 LOW RISK 4.4 - 7.1 AVERAGE RISK 7.1 - 11.0 MODERATE RISK >11.0 HIGH RISK Performed By: #### T SH, LIPID #### [facility] [address] [place] [address] Dr. Renato Weller Cholesterol [Mass/Vol] 176 mg/dL Normal <=200 Th [facility] Comment on above: Performed By: #### T SH, LIPID #### [facility] [address] [place] [address] Dr. Renato Weller Cholesterol in HDL [Mass/Vol] 71 mg/dL Critically high 40-60 [facility] Comment on above: Performed By: #### T SH, LIPID #### [facility] [address] [place] [address] Dr. Rneato Weller Cholesterol in LDL [Mass/Vol] 94.0 mg/dL Normal [facility] Comment on above: Performed By: #### T DEE, LIPID #### [facility] [address] [place] [address] Dr. Renato Weller Cholesterol.total/Choles terol in HDL [Mass ratio] 2.5 {ratio} Normal [facility] Comment on above: Performed By: #### T SH, LIPID #### [facility] [address] [place] [address] Dr. Renato Weller HDL NORMAL > or = 60 mg/dl - LO W CARDIOVASCULAR RISK <40 mg/dl - HIGH CARDIOVASCULAR RISK Normal [facility] Comment on above: Performed By: #### T SH, LIPID #### [facility] [address] [place] [address] Dr. Renato Weller LDL CALC NORMAL SEE BELOW Normal [facility] Comment on above: Result Comment: <100 mg/dl OPTIMAL 100 - 129 mg/dl NEAR OR ABOVE OPTIMAL 130 - 159 mg/dl BORDERLINE HIGH 160 - 189 mg/dl HIGH >190 mg/dl VERY HIGH Performed By: #### T SH, LIPID #### [facility] [address] [place] [address] Dr. Renato Weller Triglyceride [Mass/Vol] 55 mg/dL Normal <=150 T [facility] Comment on above: Performed By: #### T SH, LIPID #### [facility] [address] [address] [address] Renato Weller VLDL CALC 11.0 mg/dL Normal [facility] Comment on above: Performed By: #### T SH, LIPID #### [facility] [address] [address] [address] Renato Weller MG MAMM SCREEN 3D HERBERT CADon 04-14-2022 MG MAMM SCREEN 3D HERBERT CAD Patient: GENNA HERRERA Exam Date: 04/14/2022 : 1950 Gender:F Ordering : DR CASANDRA CHOPRA Admission #: [id number] Family : Order #: [id number] CLICK HERE TO VIEW EXAM RADIOLOGY REPORT [...] ovarian cancer at age 44. LOCATION: [facility] BREAST COMPOSITION: Scattered areas fibroglandular [...] LUMP SHOULD BE BIOPSIED. Dictated by: Casandra Segundo MD on 04/14/2022 at 09:29 Approved by: Casandra Segundo MD on 04/14/2022 at 09:31 Normal [facility] PROF 14(COMP METB)on 022 Albumin [Mass/Vol] 3.8 g/dL Normal 3.4-5.0 [facility] Comment on above: Performed By: #### C MP #### [facility] [address] [address] [address] Renato Weller Albumin/Globulin [Mass ratio] 1.2 {ratio} Normal [facility] Comment on above: Performed By: #### C MP #### [facility] [address] [address] [address] Renato Weller ALP [Catalytic activity/Vol] 41 U/L Critically low 46-116 [facility] Comment on above: Performed By: #### C MP #### [facility] [address] [address] [address] Renato Weller ALT [Catalytic activity/Vol] 23 U/L Normal 14-59 [facility] Comment on above: Performed By: #### C MP #### [facility] [address] [address] [address] Renato Weller Anion gap [Moles/Vol] 10.0 mmol/L Normal [facility] Comment on above: Performed By: #### C MP #### [facility] [address] [place] [address] Dr. Renato Weller AST [Catalytic activity/Vol] 20 U/L Normal 15-37 [facility] Comment on above: Performed By: #### C MP #### [facility] [address] [place] [address] Dr. Renato Weller Bilirubin [Mass/Vol] 0.4 mg/dL Normal 0.2-1.0 [facility] Comment on above: Performed By: #### C MP #### [facility] [address] [place] [address] Dr. Renato Weller Calcium [Mass/Vol] 8.5 mg/dL Normal 8.5-10.1 [facility] Comment on above: Performed By: #### C MP #### [facility] [address] [place] [address] Dr. Renato Weller Chloride [Moles/Vol] 104 mmol/L Normal 98-107 [facility] Comment on above: Performed By: #### C MP #### [facility] [address] [place] [address] Dr. Renato Weller CO2 [Moles/Vol] 29.0 mmol/L Normal 21.0-32.0 [facility] Comment on above: Performed By: #### C MP #### [facility] [address] [place] [address] Dr. Renato Weller Creatinine [Mass/Vol] 0.69 mg/dL Normal 0.55-1.02 [facility] Comment on above: Performed By: #### C MP #### [facility] [address] [place] [address] Dr. Renato Weller EGFR-AF GIBRALTARIAN >60 Normal >=60 [facility] Comment on above: Performed By: #### C MP #### [facility] [address] [address] [address] Renato Weller EGFR-NON AF GIBRALTARIAN >60 Normal >=60 [facility] Comment on above: Performed By: #### C MP #### [facility] [address] [place] [address] Dr. Renato Weller Globulin (S) [Mass/Vol] 3.2 g/dL Normal T [facility] Comment on above: Performed By: #### C MP #### [facility] [address] [place] [address] Dr. Renato Weller Glucose [Mass/Vol] 84 mg/dL Normal 74-106 [facility] Comment on above: Performed By: #### C MP #### [facility] [address] [place] [address] Dr. Renato Weller Potassium [Moles/Vol] 4.0 mmol/L Normal 3.5-5.1 [facility] Comment on above: Performed By: #### C MP #### [facility] [address] [place] [address] Dr. Renato Weller Protein [Mass/Vol] 7.0 g/dL Normal 6.4-8.2 [facility] Comment on above: Performed By: #### C MP #### [facility] [address] [place] [address] Dr. Renato Weller Sodium [Moles/Vol] 139 mmol/L Normal 136-145 [facility] Comment on above: Performed By: #### C MP #### [facility] [address] [address] [address] Renato Weller Urea nitrogen [Mass/Vol] 16.0 mg/dL Normal 7.0-18.0 [facility] Comment on above: Performed By: #### C MP #### [facility] [address] [place] [address] Dr. Renato Weller Urea nitrogen/Creatinine [Mass ratio] 23.2 mg/mg Normal [facility] Comment on above: Performed By: #### C MP #### [facility] [address] [place] [address] Dr. Renato Weller [facility] SED RATE 16 mm/hr Normal <=30 [facility] Comment on above: Performed By: #### U AMIC #### [facility] [address] [place] [address] Dr. Renato Weller TSHon 04-14-2022 TSH 3.056 uIU/mL Normal 0.358-3.740 [facility] Comment on above: Performed By: #### T SH, LIPID #### [facility] [address] [place] [address] Dr. Renato Weller UA RANDOM W/MICROSCOPICon BACTERIA MODERATE Abnormal NONE SEEN [facility] Comment on above: Performed By: #### C H50T #### [facility] [address] [place] [address] Dr. Renato Weller Bilirubin Ql (U) LARGE Abnormal NEGATIVE [facility] Comment on above: Performed By: #### C H50T #### [facility] [address] [place] [address] Dr. Renato Weller CAST NONE SEEN Normal NONE SEEN [facility] Comment on above: Performed By: #### C H50T #### [facility] [address] [place] [address] Dr. Renato Weller Clarity (U) CLEAR Normal CLEAR [facility] Comment on above: Performed By: #### C H50T #### [facility] [address] [place] [address] Dr. Renato Weller Color (U) LT. YELLOW Normal YELLOW [facility] Comment on above: Performed By: #### C H50T #### [facility] [address] [place] [address] Dr. Renato Weller Crystals LM Nom (Urine sed) NONE SEEN Normal NONE SEEN [facility] Comment on above: Performed By: #### C H50T #### [facility] [address] [place] [address] Dr. Renato Weller Epithelial cells LM Ql (Urine sed) MANY Abnormal NONE SEEN /RARE [facility] Comment on above: Performed By: #### C H50T #### [facility] [address] [place] [address] Dr. Renato Weller Glucose Ql (U) Negative Normal NEGATIVE [facility] Comment on above: Performed By: #### C H50T #### [facility] [address] [place] [address] Dr. Renato Weller Hemoglobin Ql (U) Negative Normal NEGATIVE [facility] Comment on above: Performed By: #### C H50T #### [facility] [address] [place] [address] Dr. Renato Weller Ketones Ql (U) Negative Normal NEGATIVE [facility] Comment on above: Performed By: #### C H50T #### [facility] [address] [place] [address] Dr. Renato Weller LEUKOCYTES LARGE Abnormal NEGATIVE [facility] Comment on above: Performed By: #### C H50T #### [facility] [address] [place] [address] Dr. Renato Weller MUCOUS NONE SEEN Normal NONE SEEN [facility] Comment on above: Performed By: #### C H50T #### [facility] [address] [place] [address] Dr. Renato Weller Nitrite Ql (U) Negative Normal NEGATIVE [facility] Comment on above: Performed By: #### C H50T #### [facility] [address] [place] [address] Dr. Renato Weller pH (U) 6.0 [pH] Normal 5-9 [facility] Comment on above: Performed By: #### C H50T #### [facility] [address] [place] [address] Dr. Renato Weller RBC 2-5 Abnormal 0-2 [facility] Comment on above: Performed By: #### C H50T #### [facility] [address] [place] [address] Dr. Renato Weller SPEC GRAVITY 1.025 Normal 1.005-<=1.02 5 [facility] Comment on above: Performed By: #### C H50T #### [facility] [address] [place] [address] Dr. Renato Weller UA PROTEIN Negative Normal NEGATIVE/ TRACE [facility] Comment on above: Performed By: #### C H50T #### [facility] [address] [place] [address] Dr. Renato Weller Urobilinogen Qn (U) 0.2 {Paul'U}/dL Normal 0.2 - 1. 0 [facility] Comment on above: Performed By: #### C H50T #### [facility] [address] [place] [address] Dr. Renato Weller WBC 10-20 Abnormal NONE SEEN [facility] Comment on above: Performed By: #### C H50T #### [facility] [address] [place] [address] Dr. Renato Weller RAD - CT Reporton 02-26-2022 RAD - CT Report [id number]:[id number] Normal [facility] CT ABDOMEN WO CONTRASTon CT [...] by: MARII TURCIOS Date: 2022-02-19 17:17 Normal [facility] Ambulatory Visit Summaryon 0 02-04-2022 Ambulatory [...] Varicose veins of legs Ventral hernia Normal [facility] Physician Referralon 022 Physician Referral [id number]:[id number] Normal [facility] XR DEXA BONE DENSITYon 12-30 [...] high fracture risk Electronically authenticated by: CASANDRA SEGUNDO Date: 2021-12-30 16:10 Normal [facility] C3 and C4 COMPLEMENTon 12-17 Complement C3, Serum 122 mg/dL Normal 82-167 [facility] Comment on above: Performed By: #### C SUITE #### [facility] [address] [place] [address] Dr. Renato Weller Complement C4, Serum 24 mg/dL Normal 12-38 [facility] Comment on above: Performed By: #### C SUITE #### [facility] [address] [place] [address] Dr. Renato Weller COMPLEMENT TOTAL (CH50)on Complement, Total (CH50) >60 Normal >41 [facility] Comment on above: Result Comment: Age [...] values. Performed By: #### C H50T #### [facility] [address] [place] [address] Dr. Renato Weller CBC AUTO DIFFon 12-16-2021 BASO # 0.1 103/ul Normal 0.0-0.1 [facility] Comment on above: Performed By: #### L IPID, CMP #### [facility] [address] [place] [address] Dr. Renato Weller Basophils/100 WBC (Bld) 1.8 % Normal 0.2-2.0 [facility] Comment on above: Performed By: #### L IPID, CMP #### [facility] [address] [place] [address] Dr. Renato Weller EO # 0.1 103/ul Normal 0.0-0.7 [facility] Comment on above: Performed By: #### L IPID, CMP #### [facility] [address] [place] [address] Dr. Renato Weller Eosinophils/100 WBC (Bld) 2.2 % Normal 0.9-7.0 [facility] Comment on above: Performed By: #### L IPID, CMP #### [facility] [address] [place] [address] Dr. Renato Weller Erythrocyte distribution width (RBC) [Ratio] 13.8 % Normal 11.0-15.0 [facility] Comment on above: Performed By: #### L IPID, CMP #### [facility] [address] [place] [address] Dr. Renato Weller Hematocrit (Bld) [Volume fraction] 39.4 % Normal 36.0-48.0 [facility] Comment on above: Performed By: #### L IPID, CMP #### [facility] [address] [place] [address] Dr. Renato Weller Hemoglobin (Bld) [Mass/Vol] 12.5 g/dL Normal 12.0-16.0 [facility] [facility] Comment on above: Performed By: #### L IPID, CMP #### [facility] [address] [place] [address] Dr. Renato Weller IG # 0.02 10e3/ul Normal 0.00-0.03 [facility] Comment on above: Performed By: #### L IPID, CMP #### [facility] [address] [place] [address] Dr. Renato Weller IG % 0.4 % Normal 0.0-0.5 [facility] Comment on above: Performed By: #### L IPID, CMP #### [facility] [address] [place] [address] Dr. Renato Weller LYMPH # 1.0 103/ul Critically low 1.2-3.8 [facility] Comment on above: Performed By: #### L IPID, CMP #### [facility] [address] [place] [address] Dr. Renato Weller Lymphocytes/100 WBC (Bld) 18.5 % Critically low 20.5-60.0 [facility] Comment on above: Performed By: #### L IPID, CMP #### [facility] [address] [place] [address] Dr. Renato Weller MANUAL DIFF REQ NO Normal [facility] Comment on above: Performed By: #### L IPID, CMP #### [facility] [address] [place] [address] Dr. Renato Weller MCH (RBC) [Entitic mass] 30.8 pg Normal 26.7-34.0 [facility] Comment on above: Performed By: #### L IPID, CMP #### [facility] [address] [place] [address] Dr. Renato Weller MCHC (RBC) [Mass/Vol] 31.7 g/dL Normal 29.9-35.2 [facility] Comment on above: Performed By: #### L IPID, CMP #### [facility] [address] [place] [address] Dr. Renato Weller MCV (RBC) [Entitic vol] 97.0 fL Normal 81.0-99.0 [facility] Comment on above: Performed By: #### L IPID, CMP #### [facility] [address] [place] [address] Dr. Renato Weller MONO # 0.5 103/ul Normal 0.3-0.8 [facility] Comment on above: Performed By: #### L IPID, CMP #### [facility] [address] [place] [address] Dr. Renato Weller Monocytes/100 WBC (Bld) 9.3 % Normal 1.7-12.0 [facility] Comment on above: Performed By: #### L IPID, CMP #### [facility] [address] [place] [address] Dr. Renato Weller NEUT # 3.8 103/ul Normal 1.4-6.5 [facility] Comment on above: Performed By: #### L IPID, CMP #### [facility] [address] [place] [address] Dr. Renato Weller Neutrophils/100 WBC (Bld) 67.8 % Normal 43.0-75.0 [facility] Comment on above: Performed By: #### L IPID, CMP #### [facility] [address] [place] [address] Dr. Renato Weller Platelet mean volume (Bld) [Entitic vol] 9.1 fL Critically low 9.5-13.5 [facility] Comment on above: Performed By: #### L IPID, CMP #### [facility] [address] [place] [address] Dr. Renato Weller PLT 240 103/ul Normal 150-450 [facility] Comment on above: Performed By: #### L IPID, CMP #### [facility] [address] [place] [address] Dr. Renato Weller RBC 4.06 106/ul Critically low 4.20-5.40 [facility] Comment on above: Performed By: #### L IPID, CMP #### [facility] [address] [place] [address] Dr. Renato Weller WBC 5.6 103/ul Normal 4.0-11.0 [facility] Comment on above: Performed By: #### L IPID, CMP #### [facility] [address] [place] [address] Dr. Renato Weller PROF 14(COMP METB)on 022 Albumin [Mass/Vol] 3.5 g/dL Normal 3.4-5.0 [facility] Comment on above: Performed By: #### C H50T #### [facility] [address] [place] [address] Dr. Renato Weller Albumin/Globulin [Mass ratio] 1.1 {ratio} Normal [facility] Comment on above: Performed By: #### C H50T #### [facility] [address] [address] [address] Renato Weller ALP [Catalytic activity/Vol] 51 U/L Normal 46-116 [facility] Comment on above: Performed By: #### C H50T #### [facility] [address] [address] [address] Renato Weller ALT [Catalytic activity/Vol] 22 U/L Normal 14-59 [facility] Comment on above: Performed By: #### C H50T #### [facility] [address] [address] [address] Renato Weller Anion gap [Moles/Vol] 13.0 mmol/L Normal [facility] Comment on above: Performed By: #### C H50T #### [facility] [address] [place] [address] Dr. Renato Weller AST [Catalytic activity/Vol] 17 U/L Normal 15-37 [facility] Comment on above: Performed By: #### C H50T #### [facility] [address] [place] [address] Dr. Renato Weller Bilirubin [Mass/Vol] 0.4 mg/dL Normal 0.2-1.0 [facility] Comment on above: Performed By: #### C H50T #### [facility] [address] [place] [address] Dr. Renato Weller Calcium [Mass/Vol] 8.3 mg/dL Critically low 8.5-10.1 [facility] Comment on above: Performed By: #### C H50T #### [facility] [address] [place] [address] Dr. Renato Weller Chloride [Moles/Vol] 104 mmol/L Normal 98-107 [facility] Comment on above: Performed By: #### C H50T #### [facility] [address] [place] [address] Dr. Renato Weller CO2 [Moles/Vol] 27.4 mmol/L Normal 21.0-32.0 [facility] Comment on above: Performed By: #### C H50T #### [facility] [address] [place] [address] Dr. Renato Weller Creatinine [Mass/Vol] 0.71 mg/dL Normal 0.55-1.02 [facility] Comment on above: Performed By: #### C H50T #### [facility] [address] [place] [address] Dr. Renato Weller EGFR-AF GIBRALTARIAN >60 Normal >=60 [facility] Comment on above: Performed By: #### C H50T #### [facility] [address] [place] [address] Dr. Renato Weller EGFR-NON AF GIBRALTARIAN >60 Normal >=60 [facility] Comment on above: Performed By: #### C H50T #### [facility] [address] [place] [address] Dr. Renato Weller Globulin (S) [Mass/Vol] 3.1 g/dL Normal T [facility] Comment on above: Performed By: #### C H50T #### [facility] [address] [place] [address] Dr. Renato Weller Glucose [Mass/Vol] 85 mg/dL Normal 74-106 [facility] Comment on above: Performed By: #### C H50T #### [facility] [address] [place] [address] Dr. Renato Weller Potassium [Moles/Vol] 4.4 mmol/L Normal 3.5-5.1 [facility] Comment on above: Performed By: #### C H50T #### [facility] [address] [place] [address] Dr. Renato Weller Protein [Mass/Vol] 6.6 g/dL Normal 6.4-8.2 [facility] Comment on above: Performed By: #### C H50T #### [facility] [address] [place] [address] Dr. Renato Weller Sodium [Moles/Vol] 140 mmol/L Normal 136-145 [facility] Comment on above: Performed By: #### C H50T #### [facility] [address] [place] [address] Dr. Renato Weller Urea nitrogen [Mass/Vol] 14.0 mg/dL Normal 7.0-18.0 [facility] Comment on above: Performed By: #### C H50T #### [facility] [address] [place] [address] Dr. Renato Weller Urea nitrogen/Creatinine [Mass ratio] 19.7 mg/mg Normal [facility] Comment on above: Performed By: #### C H50T #### [facility] [address] [place] [address] Dr. Renato Weller SED RATE WESTERGRENon 2021 SED RATE 6 mm/hr Normal <=30 [facility] Comment on above: Performed By: #### C H50T #### [facility] [address] [place] [address] Dr. Renato Weller UA RANDOM W/MICROSCOPICon BACTERIA TRACE Abnormal NONE SEEN [facility] Comment on above: Performed By: #### C H50T #### [facility] [address] [place] [address] Dr. Renato Weller Bilirubin Ql (U) MODERATE Abnormal NEGATIVE [facility] Comment on above: Performed By: #### C H50T #### [facility] [address] [place] [address] Dr. Renato Weller CAST NONE SEEN Normal NONE SEEN [facility] Comment on above: Performed By: #### C H50T #### [facility] [address] [place] [address] Dr. Renato Weller Clarity (U) CLEAR Normal CLEAR [facility] Comment on above: Performed By: #### C H50T #### [facility] [address] [place] [address] Dr. Renato Weller Color (U) LT. YELLOW Normal YELLOW [facility] Comment on above: Performed By: #### C H50T #### [facility] [address] [place] [address] Dr. Renato Weller Crystals LM Nom (Urine sed) NONE SEEN Normal NONE SEEN [facility] Comment on above: Performed By: #### C H50T #### [facility] [address] [address] [address] Renato Weller Epithelial cells LM Ql (Urine sed) MODERATE Abnormal NONE SEEN /RARE [facility] Comment on above: Performed By: #### C H50T #### [facility] [address] [place] [address] Dr. Renato Weller Glucose Ql (U) Negative Normal NEGATIVE [facility] Comment on above: Performed By: #### C H50T #### [facility] [address] [address] [address] Renato Weller Hemoglobin Ql (U) Negative Normal NEGATIVE [facility] Comment on above: Performed By: #### C H50T #### [facility] [address] [place] [address] Dr. Renato Weller Ketones Ql (U) Negative Normal NEGATIVE [facility] Comment on above: Performed By: #### C H50T #### [facility] [address] [place] [address] Dr. Renato Weller LEUKOCYTES SMALL Abnormal NEGATIVE [facility] Comment on above: Performed By: #### C H50T #### [facility] [address] [place] [address] Dr. Renato Weller MUCOUS NONE SEEN Normal NONE SEEN [facility] Comment on above: Performed By: #### C H50T #### [facility] [address] [place] [address] Dr. Renato Weller Nitrite Ql (U) Negative Normal NEGATIVE [facility] Comment on above: Performed By: #### C H50T #### [facility] [address] [place] [address] Dr. Renato Weller pH (U) 6.0 [pH] Normal 5-9 [facility] Comment on above: Performed By: #### C H50T #### [facility] [address] [place] [address] Dr. Renato Weller RBC NONE SEEN Abnormal 0-2 [facility] Comment on above: Performed By: #### C H50T #### [facility] [address] [address] [address] Renato Weller SPEC GRAVITY 1.010 Normal 1.005-<=1.02 5 [facility] Comment on above: Performed By: #### C H50T #### [facility] [address] [address] [address] Renato Weller UA PROTEIN Negative Normal NEGATIVE/ TRACE [facility] Comment on above: Performed By: #### C H50T #### [facility] [address] [address] [address] Renato Weller Urobilinogen Qn (U) 0.2 {Paul'U}/dL Normal 0.2 - 1. 0 [facility] Comment on above: Performed By: #### C H50T #### [facility] [address] [address] [address] Renato Weller WBC 2-5 Abnormal NONE SEEN [facility] Comment on above: Performed By: #### C H50T #### [facility] [address] [address] [address] Renato Weller C-Reactive Proteinon 019 CRP [Mass/Vol] 0.6 mg/dL Normal 0.0-1.0 [facility] Comment on above: Performed By: #### C BC, CK, CMP, CRP, T4F, TSH3, ESR #### [facility] [address] Complete Blood Count Auto Di ffon 04-06-2019 Basophils (Bld) [#/Vol] 0.1 10*3/uL Normal 0.0-0.2 [facility] Comment on above: Result Comment: PERF ORMED BY: [place] [address] PATHOLOGIST [employer] ROSLYN TALLEY M.D. Performed By: #### C BC, CK, CMP, CRP, T4F, TSH3, ESR #### [facility] [address] Basophils/100 WBC (Bld) 1.0 % Normal . [facility] Comment on above: Performed By: #### C BC, CK, CMP, CRP, T4F, TSH3, ESR #### [address] Eosinophils (Bld) [#/Vol] 0.1 10*3/uL Normal 0.0-0.45 [facility] Comment on above: Performed By: #### C BC, CK, CMP, CRP, T4F, TSH3, ESR #### [address] Eosinophils/100 WBC (Bld) 0.9 % Normal . [facility] Comment on above: Performed By: #### C BC, CK, CMP, CRP, T4F, TSH3, ESR #### [address] Erythrocyte distribution width (RBC) [Ratio] 14.5 % Normal 11.9-15.3 [facility] Comment on above: Performed By: #### C BC, CK, CMP, CRP, T4F, TSH3, ESR #### [address] Hematocrit (Bld) [Volume fraction] 44.9 % Normal 34.0-46.4 [facility] Comment on above: Performed By: #### C BC, CK, CMP, CRP, T4F, TSH3, ESR #### [address] Hemoglobin (Bld) [Mass/Vol] 15.2 g/dL Normal 11.8-15.4 [facility] Comment on above: Performed By: #### C BC, CK, CMP, CRP, T4F, TSH3, ESR #### [address] Lymphocytes (Bld) [#/Vol] 1.1 10*3/uL Normal 1.00-4.8 [facility] Comment on above: Performed By: #### C BC, CK, CMP, CRP, T4F, TSH3, ESR #### [address] Lymphocytes/100 WBC (Bld) 14.6 % Normal . [facility] Comment on above: Performed By: #### C BC, CK, CMP, CRP, T4F, TSH3, ESR #### [address] MCH (RBC) [Entitic mass] 34.0 g/dL Normal 32.0-35.0 [facility] Comment on above: Performed By: #### C BC, CK, CMP, CRP, T4F, TSH3, ESR #### [address] MCH (RBC) [Entitic mass] 30.8 pg Normal 24.7-34.3 [facility] Comment on above: Performed By: #### C BC, CK, CMP, CRP, T4F, TSH3, ESR #### [address] MCV (RBC) [Entitic vol] 90.5 fL Normal 80-100 [facility] Comment on above: Performed By: #### C BC, CK, CMP, CRP, T4F, TSH3, ESR #### [place] [address] [place] Monocytes (Bld) [#/Vol] 0.5 10*3/uL Normal 0.0-0.8 [facility] Comment on above: Performed By: #### C BC, CK, CMP, CRP, T4F, TSH3, ESR #### [address] Monocytes/100 WBC (Bld) 7.0 % Normal . [facility] Comment on above: Performed By: #### C BC, CK, CMP, CRP, T4F, TSH3, ESR #### [place] [address] [place] Neutrophils (Bld) [#/Vol] 6.0 10*3/uL Normal 1.8-7.7 [facility] Comment on above: Performed By: #### C BC, CK, CMP, CRP, T4F, TSH3, ESR #### [facility] [address] Neutrophils/100 WBC (Bld) 76.5 % Normal . [facility] Comment on above: Performed By: #### C BC, CK, CMP, CRP, T4F, TSH3, ESR #### [facility] [address] Nucleated RBC/100 WBC (Bld) [Ratio] 0.2 % Normal 0-0.5 [facility] Comment on above: Performed By: #### C BC, CK, CMP, CRP, T4F, TSH3, ESR #### [facility] [address] Platelet mean volume (Bld) [Entitic vol] 8.6 fL Normal 6.3-10.7 [facility] Comment on above: Performed By: #### C BC, CK, CMP, CRP, T4F, TSH3, ESR #### [address] Platelets (Bld) [#/Vol] 218 10*3/uL Normal 150-450 [facility] Comment on above: Performed By: #### C BC, CK, CMP, CRP, T4F, TSH3, ESR #### [address] RBC (Bld) [#/Vol] 4.96 10*6/uL Normal 3.60-5.00 [facility] Comment on above: Performed By: #### C BC, CK, CMP, CRP, T4F, TSH3, ESR #### [address] WBC (Bld) [#/Vol] 7.8 10*3/uL Normal 4.5-11.0 [facility] Comment on above: Performed By: #### C BC, CK, CMP, CRP, T4F, TSH3, ESR #### [address] Comprehensive Metabolic Pane [place] 04-06-2019 Albumin [Mass/Vol] 4.0 g/dL Normal 3.2-5.5 [facility] Comment on above: Performed By: #### C BC, CK, CMP, CRP, T4F, TSH3, ESR #### [address] Albumin/Globulin [Mass ratio] 1.5 {ratio} Normal [facility] Comment on above: Performed By: #### C BC, CK, CMP, CRP, T4F, TSH3, ESR #### [address] ALP [Catalytic activity/Vol] 40 U/L Normal 32-92 [facility] Comment on above: Performed By: #### C BC, CK, CMP, CRP, T4F, TSH3, ESR #### [address] ALT [Catalytic activity/Vol] 10 U/L Normal 10-60 [facility] Comment on above: Performed By: #### C BC, CK, CMP, CRP, T4F, TSH3, ESR #### [address] AST [Catalytic activity/Vol] 15 U/L Normal 10-42 [facility] Comment on above: Performed By: #### C BC, CK, CMP, CRP, T4F, TSH3, ESR #### [address] Bilirubin [Mass/Vol] 0.6 mg/dL Normal 0.3-1.2 [facility] Comment on above: Performed By: #### C BC, CK, CMP, CRP, T4F, TSH3, ESR #### [place] [address] [place] Calcium [Mass/Vol] 9.6 mg/dL Normal 8.2-10.2 [facility] Comment on above: Performed By: #### C BC, CK, CMP, CRP, T4F, TSH3, ESR #### [address] Chloride [Moles/Vol] 103 mmol/L Normal 95-114 [facility] Comment on above: Performed By: #### C BC, CK, CMP, CRP, T4F, TSH3, ESR #### [facility] [address] CO2 [Moles/Vol] 26.6 mmol/L Normal 22.0-30.0 [facility] Comment on above: Performed By: #### C BC, CK, CMP, CRP, T4F, TSH3, ESR #### [facility] [address] Creatinine [Mass/Vol] 0.79 mg/dL Normal 0.44-1.03 [facility] Comment on above: Performed By: #### C BC, CK, CMP, CRP, T4F, TSH3, ESR #### [facility] [address] Estimated GFR ( Kimberly > 60 [facility] Comment on above: Result Comment: GFR estimated reference range: According to KDOQI guidelines, <60 ml/min/1.73m2 is sufficient to diagnose a patient with chronic kidney disease. Performed By: #### C BC, CK, CMP, CRP, T4F, TSH3, ESR #### [facility] [address] Estimated GFR (Non- Am > 60 [facility] Comment on above: Performed By: #### C BC, CK, CMP, CRP, T4F, TSH3, ESR #### [facility] [address] Globulin (S) [Mass/Vol] 2.6 g/dL Normal [facility] Comment on above: Performed By: #### C BC, CK, CMP, CRP, T4F, TSH3, ESR #### [facility] [address] Glucose [Mass/Vol] 87 mg/dL Normal 70-100 [facility] Comment on above: Result Comment: [place] om Glucose Reference Range is dependent on time and content of last meal. Glucose of more than 200 mg/dL in a nonstressed, ambulatory subject supports the diagnosis of Diabetes Mellitus. ADA recommended reference range Performed By: #### C BC, CK, CMP, CRP, T4F, TSH3, ESR #### [address] Potassium [Moles/Vol] 4.2 mmol/L Normal 3.5-5.1 [facility] Comment on above: Performed By: #### C BC, CK, CMP, CRP, T4F, TSH3, ESR #### [address] Protein [Mass/Vol] 6.6 g/dL Normal 6.1-7.9 [facility] Comment on above: Performed By: #### C BC, CK, CMP, CRP, T4F, TSH3, ESR #### [address] Sodium [Moles/Vol] 140 mmol/L Normal 136-146 [facility] Comment on above: Performed By: #### C BC, CK, CMP, CRP, T4F, TSH3, ESR #### [address] Urea nitrogen [Mass/Vol] 12 mg/dL Normal 9-23 [facility] Comment on above: Performed By: #### C BC, CK, CMP, CRP, T4F, TSH3, ESR #### [address] Creatine Kinaseon 04-06-2019 CK [Catalytic activity/Vol] 46 U/L Normal 22-269 [facility] Comment on above: Result Comment: PERF ORMED BY: [place] [address] PATHOLOGIST [employer] ROSLYN TALLEY M.D. Performed By: #### C BC, CK, CMP, CRP, T4F, TSH3, ESR #### [address] Dipstick and Microscopicon 1 Appearance (U) Turbid Critically abnormal Clear [facility] Comment on above: Order Comment: Name Collection Type:: Clean-Voided Midstream Performed By: #### A DDONUAPLUS, PT, PTT #### [facility] [address] [place] [address] [place] Bacteria LM.HPF (Urine sed) [#/Area] 1+ High None Seen [facility] Comment on above: Order Comment: Name Collection Type:: Clean-Voided Midstream Performed By: #### A DDONUAPLUS, PT, PTT #### [facility] [address] [place] [address] [place] Bilirubin,Urine Negative Normal Negative [facility] Comment on above: Order Comment: Name Collection Type:: Clean-Voided Midstream Performed By: #### A DDONUAPLUS, PT, PTT #### [facility] [address] [place] [address] [place] Color (U) Yellow Normal Yellow [facility] Comment on above: Order Comment: Name Collection Type:: Clean-Voided Midstream Performed By: #### A DDONUAPLUS, PT, PTT #### [facility] [address] [place] [address] Glucose Ql (U) Normal Normal Normal [facility] Comment on above: Order Comment: Name Collection Type:: Clean-Voided Midstream Performed By: #### A DDONUAPLUS, PT, PTT #### [facility] [address] [place] [address] [place] Hyaline Casts,Urine None Seen Normal 0-1 [facility] Comment on above: Order Comment: Name Collection Type:: Clean-Voided Midstream Performed By: #### A DDONUAPLUS, PT, PTT #### [facility] [address] [place] [address] [place] Ketones Ql (U) Trace High Negative [facility] Comment on above: Order Comment: Name Collection Type:: Clean-Voided Midstream Performed By: #### A DDONUAPLUS, PT, PTT #### [facility] [address] [place] [address] [place] Leukocyte esterase Test strip Ql (U) 3+ High Negative [facility] Comment on above: Order Comment: Name Collection Type:: Clean-Voided Midstream Performed By: #### A DDONUAPLUS, PT, PTT #### [address] [place] [address] [place] Nitrite,Urine Negative Normal Negative [facility] Comment on above: Order Comment: Name Collection Type:: Clean-Voided Midstream Performed By: #### A DDONUAPLUS, PT, PTT #### [place] [address] [place] Occult Blood,Urine Negative Normal Negative [facility] Comment on above: Order Comment: Name Collection Type:: Clean-Voided Midstream Performed By: #### A DDONUAPLUS, PT, PTT #### [address] Other Casts,Urine None Seen Normal None Seen [facility] Comment on above: Order Comment: Name Collection Type:: Clean-Voided Midstream Result Comment: PERF ORMED BY: [place] [address] PATHOLOGIST [employer] ROSLYN TALLEY M.D. Performed By: #### A DDONUAPLUS, PT, PTT #### [place] [address] [place] pH (U) 5.0 [pH] Normal 5.0-9.0 [facility] Comment on above: Order Comment: Name Collection Type:: Clean-Voided Midstream Performed By: #### A DDONUAPLUS, PT, PTT #### [place] [address] [place] Protein (U) [Mass/Vol] Negative Normal Negative [facility] Comment on above: Order Comment: Name Collection Type:: Clean-Voided Midstream Performed By: #### A DDONUAPLUS, PT, PTT #### [place] [address] [place] RBC LM.HPF (Urine sed) [#/Area] 5-9 High 0-4 [facility] Comment on above: Order Comment: Name Collection Type:: Clean-Voided Midstream Performed By: #### A DDONUAPLUS, PT, PTT #### [place] [address] [place] Specificy [place],Urine 1.024 Normal 1.001-1.030 [facility] Comment on above: Order Comment: Name Collection Type:: Clean-Voided Midstream Performed By: #### A DDONUAPLUS, PT, PTT #### [address] Squamous Epithelial Cell,Urine 5-9 High 0-2 [facility] Comment on above: Order Comment: Name Collection Type:: Clean-Voided Midstream Performed By: #### A DDONUAPLUS, PT, PTT #### [address] Urobilinogen,Urine Normal Normal Normal [facility] Comment on above: Order Comment: Name Collection Type:: Clean-Voided Midstream Performed By: #### A DDONUAPLUS, PT, PTT #### [address] WBC LM.HPF (Urine sed) [#/Area] 20-49 High 0-4 [facility] Comment on above: Order Comment: Name Collection Type:: Clean-Voided Midstream Performed By: #### A DDONUAPLUS, PT, PTT #### [address] Erythrocyte Sedimentation Ra roosevelt 04-06-2019 ESR (Bld) [Velocity] 23 mm/h Normal 0-30 [facility] Comment on above: Result Comment: PERF ORMED BY: [place] [address] PATHOLOGIST [employer] AD[employer] ROSLYN TALLEY M.D. Performed By: #### C BC, CK, CMP, CRP, T4F, TSH3, ESR #### [address] Free T4 (Free Thyroxine)on 1 Free T4 [Mass/Vol] 0.88 ng/dL Normal 0.61-1.12 [facility] Comment on above: Performed By: #### C BC, CK, CMP, CRP, T4F, TSH3, ESR #### [address] Partial Thromboplastin Timeo n 04-06-2019 aPTT Coag (Bld) [Time] 29.8 s Normal 23.0-35.0 [facility] Comment on above: Order Comment: List the anticoagulant: NONE Result Comment: PERF ORMED BY: [place] [address] PATHOLOGIST [employer] AD[employer] ROSLYN TALLEY M.D. Performed By: #### A DDONUAPLUS, PT, PTT #### [address] Prothrombin Time INRon 04-06 INR Coag (Bld) [Relative time] 10.3 s Normal 9.0-12.9 [facility] Comment on above: Order Comment: List the anticoagulant: NONE Performed By: #### A DDONUAPLUS, PT, PTT #### [address] INR Coag (PPP) [Relative time] 0.9 {INR} Normal [facility] Comment [...] By: #### A DDONUAPLUS, PT, PTT #### [address] Thyroid Stimulating Hormoneo n 04-06-2019 TSH Qn 2.89 u[iU]/mL Normal 0.45-5.33 [facility] Comment on above: Result Comment: PERF ORMED BY: [place] [address] PATHOLOGIST [employer] AD[employer] ROSLYN TALLEY M.D. Performed By: #### C BC, CK, CMP, CRP, T4F, TSH3, ESR #### [address] [place] [address] [facility] Vital Signs Date Time Vital Sign Value Performing Clinician Facility 12-30-2024 10:01-0400 Body height 160.02 cm Casandra Chopra DO Work Phone: [facility] 12-30-2024 10:01-0400 Body mass index (BMI) [Ratio] 26.5 kg/m2 Casandra Chopra DO Work Phone: [facility] 12-30-2024 10:01-0400 Body weight 68.03 kg Casandra Chopra DO Work Phone: [facility] 12-30-2024 10:01-0400 Diastolic blood pressure 63 mm[Hg] Casandra Chopra DO Work Phone: [facility] 12-30-2024 10:01-0400 Heart rate 83 /min Casandra Chopra DO Work Phone: [facility] 12-30-2024 10:01-0400 Systolic blood pressure 85 mm[Hg] Casandra Chopra DO Work Phone: [facility] 11-14-2024 08:49-0400 Body height 160.02 cm Casandra Chopra DO Work Phone: [facility] 11-14-2024 08:49-0400 Body mass index (BMI) [Ratio] 27.6 kg/m2 Casandra Chopra DO Work Phone: [facility] 11-14-2024 08:49-0400 Body temperature 98.3 [degF] Casandra Chopra DO Work Phone: [facility] 11-14-2024 08:49-0400 Body weight 70.76 kg Casandra Chopra DO Work Phone: [facility] 11-14-2024 08:49-0400 Diastolic blood pressure 70 mm[Hg] Casandra Chopra DO Work Phone: [facility] 11-14-2024 08:49-0400 Heart rate 67 /min Casandra Chopra DO Work Phone: [facility] 11-14-2024 08:49-0400 SaO2% (BldA) [Mass fraction] 100 % Casandra Chopra DO Work Phone: [facility] 11-14-2024 08:49-0400 Systolic blood pressure 114 mm[Hg] Casandra Chopra DO Work Phone: [facility] 10-03-2024 14:19-0400 Diastolic blood pressure 56 mm[Hg] Casandra Chopra DO Work Phone: [facility] 10-03-2024 14:19-0400 Heart rate 74 /min Casandra Chopra DO Work Phone: [facility] 10-03-2024 14:19-0400 Respiratory rate 16 /min Casandra Chopra DO Work Phone: [facility] 10-03-2024 14:19-0400 SaO2% (BldA) [Mass fraction] 98 % Casandra Chopra DO Work Phone: [facility] 10-03-2024 14:19-0400 Systolic blood pressure 93 mm[Hg] Casandra Chopra DO Work Phone: [facility] 10-03-2024 12:06-0400 Body height 160.02 cm Casandra Chopra DO Work Phone: [facility] 10-03-2024 12:06-0400 Body weight 72.12 kg Casandra Chopra DO Work Phone: [facility] 09-20-2024 08:59-0400 Body height 160.02 cm [facility] 09-20-2024 08:59-0400 Body mass index (BMI) [Ratio] 28 kg/m2 [facility] 09-20-2024 08:59-0400 Body weight 71.66 kg [facility] 05-16-2024 08:50-0500 Body height 160.[address] [facility] 05-16-2024 08:50-0500 Body mass index (BMI) [Ratio] 29 kg/m2 PHYSICIAN NO [facility] 05-16-2024 08:50-0500 Body temperature 97.6 [degF] PHYSICIAN NO [facility] 05-16-2024 08:50-0500 Body weight 74.[address] [facility] 05-16-2024 08:50-0500 Diastolic blood pressure 74 mm[Hg] PHYSICIAN NO [facility] 05-16-2024 08:50-0500 Respiratory rate 71 /min PHYSICIAN NO [facility] 05-16-2024 08:50-0500 SaO2% (BldA) [Mass fraction] 98 % PHYSICIAN NO [facility] 05-16-2024 08:50-0500 Systolic blood pressure 116 mm[Hg] PHYSICIAN NO [facility] 04-06-2024 08:00-0400 Body height 160.[address] [facility] 04-06-2024 08:00-0400 Body mass index (BMI) [Ratio] 29.2 kg/m2 PHYSICIAN NO [facility] 04-06-2024 08:00-0400 Body temperature 97.4 [degF] PHYSICIAN NO [facility] 04-06-2024 08:00-0400 Body weight 74.[address] [facility] 04-06-2024 08:00-0400 Diastolic blood pressure 70 mm[Hg] PHYSICIAN NO [facility] 04-06-2024 08:00-0400 Heart rate 73 /min PHYSICIAN NO [facility] 04-06-2024 08:00-0400 SaO2% (BldA) [Mass fraction] 97 % PHYSICIAN NO [facility] 04-06-2024 08:00-0400 Systolic blood pressure 118 mm[Hg] PHYSICIAN NO [facility] 04-04-2024 19:40-0400 Diastolic blood pressure 77 mm[Hg] PHYSICIAN NO [facility] 04-04-2024 19:40-0400 Heart rate 74 /min PHYSICIAN NO [facility] 04-04-2024 19:40-0400 Respiratory rate 18 /min PHYSICIAN NO [facility] 04-04-2024 19:40-0400 SaO2% (BldA) [Mass fraction] 98 % PHYSICIAN NO [facility] 04-04-2024 19:40-0400 Systolic blood pressure 122 mm[Hg] PHYSICIAN NO [facility] 04-04-2024 13:41-0400 Body temperature 97.8 [degF] PHYSICIAN NO [facility] 04-04-2024 12:51-0400 Body height 160.[address] [facility] 04-04-2024 12:51-0400 Body weight 75.[address] [facility] 02-16-2024 09:190400 Body height 160.02 cm DO Casandra Chopra Work Phone: [facility] 02-16-2024 09:19-0400 Body mass index (BMI) [Ratio] 30.6 kg/m2 DO Casandra Chopra Work Phone: [facility] 02-16-2024 09:19-0400 Body temperature 97.9 [degF] DO Casandra Chopra Work Phone: [facility] 02-16-2024 09:19-0400 Body weight 78.47 kg DO Casandra Chopra Work Phone: [facility] 02-16-2024 09:19-0400 Diastolic blood pressure 74 mm[Hg] DO Casandra Chopra Work Phone: [facility] 02-16-2024 09:19-0400 Heart rate 48 /min DO Casandra Chopra Work Phone: [facility] 02-16-2024 09:19-0400 SaO2% (BldA) [Mass fraction] 99 % DO Casandra Chopra Work Phone: [facility] 02-16-2024 09:19-0400 Systolic blood pressure 116 mm[Hg] DO Casandra Chopra Work Phone: [facility] 05-05-2023 09:10-0400 Body height 160.02 cm Casandra Chopra Other [facility] Other 05-05-2023 09:10-0400 Body mass index (BMI) [Ratio] 31.35 kg/m2 Casandra Xochitlleoncio Other [facility] Other 05-05-2023 09:10-0400 Body temperature 98.9 [degF] Casandra Chopra Other [facility] Other 05-05-2023 09:10-0400 Body weight 80.29 kg Casandra Chopra Other [facility] Other 05-05-2023 09:10-0400 Diastolic blood pressure 68 mm[Hg] Csaandra Chopra Other [facility] Other 05-05-2023 09:10-0400 Respiratory rate 18 /min Csaandra Chopra Other [facility] Other 05-05-2023 09:10-0400 SaO2% (BldA) [Mass fraction] 98 % Casandra Chopra Other [facility] Other 05-05-2023 09:10-0400 Systolic blood pressure 112 mm[Hg] Casandra Chopra Other [facility] Other 02-23-2023 11:40-0400 Body height 160.02 cm Eva Blades Other [facility] Other 02-23-2023 11:40-0400 Body mass index (BMI) [Ratio] 31.35 kg/m2 Eav Blades Other [facility] Other 02-23-2023 11:40-0400 Body weight 80.29 kg Eva Blades Other [facility] Other 02-23-2023 11:40-0400 Diastolic blood pressure 78 mm[Hg] Eva Blades Other [facility] Other 02-23-2023 11:40-0400 Systolic blood pressure 110 mm[Hg] Eva Blades Other [facility] Other 12-29-2022 10:00-0400 Body height 160.02 cm [employer] Other [facility] Other 12-29-2022 10:00-0400 Body mass index (BMI) [Ratio] 30.82 kg/m2 [employer] Other [facility] Other 12-29-2022 10:00-0400 Body weight 78.93 kg [employer] Other [facility] Other 12-29-2022 10:00-0400 Diastolic blood pressure 68 mm[Hg] [employer] Other [facility] Other 12-29-2022 10:00-0400 Systolic blood pressure 118 mm[Hg] [employer] Other [facility] Other 10-28-2022 10:10-0400 Body height 160.02 cm Casandra Chopra Other [facility] Other 10-28-2022 10:10-0400 Body mass index (BMI) [Ratio] 31.7 kg/m2 Casandra Chopra Other [facility] Other 10-28-2022 10:10-0400 Body temperature 97.6 [degF] Casandra Chopra Other [facility] Other 10-28-2022 10:10-0400 Body weight 81.19 kg Casandra Chopra Other [facility] Other 10-28-2022 10:10-0400 Diastolic blood pressure 68 mm[Hg] Casandra Chopra Other [facility] Other 10-28-2022 10:10-0400 Respiratory rate 18 /min Casandra Chopra Other [facility] Other 10-28-2022 10:10-0400 SaO2% (BldA) [Mass fraction] 99 % Casandra Chopra Other [facility] Other 10-28-2022 10:10-0400 Systolic blood pressure 112 mm[Hg] Casandra Chopra Other [facility] Other 02-04-2022 15:05-0400 Blood Pressure Location [facility] [place] 02-04-2022 15:05-0400 Diastolic blood pressure 60 mm[Hg] [facility] [place] 02-04-2022 15:05-0400 Heart rate 72 /min [facility] [place] 02-04-2022 15:05-0400 Respiratory rate 16 /min [facility] [place] 02-04-2022 15:05-0400 Systolic blood pressure 116 mm[Hg] [facility] [place] 10-17-2021 09:50-0400 Body height 160.02 cm Casandra Chopra Other [facility] Other 10-17-2021 09:50-0400 Body mass index (BMI) [Ratio] 31 kg/m2 Casandra Chopra Other [facility] Other 10-17-2021 09:50-0400 Body temperature 97.8 [degF] Casandra Chopra Other [facility] Other 10-17-2021 09:50-0400 Body weight 79.38 kg Casandra Chopra Other [facility] Other 10-17-2021 09:50-0400 Diastolic blood pressure 64 mm[Hg] Casandra Chopra Other [facility] Other 10-17-2021 09:50-0400 Respiratory rate 18 /min Casandra Chopra Other [facility] Other 10-17-2021 09:50-0400 SaO2% (BldA) [Mass fraction] 97 % Casandra Chopra Other [facility] Other 10-17-2021 09:50-0400 Systolic blood pressure 102 mm[Hg] Casandra Chopra Other [facility] Other 09-04-2021 09:10-0500 Body height 160.02 cm Casandra Chopra Other [facility] Other 09-04-2021 09:10-0500 Body mass index (BMI) [Ratio] 30.11 kg/m2 Casandra Chopra Other [facility] Other 09-04-2021 09:10-0500 Body temperature 97.6 [degF] Casandra Chopra Other [facility] Other 03-02-2022 09:10-0500 Body weight 77.11 kg Casandra Nav Other [facility] Other 09-04-2021 09:10-0500 Diastolic blood pressure 68 mm[Hg] Casandra Nav Other [facility] Other 09-04-2021 09:10-0500 Respiratory rate 18 /min Casandra Xochitlleoncio Other [facility] Other 09-04-2021 09:10-0500 SaO2% (BldA) [Mass fraction] 99 % Casandra Xochitlleoncio Other [facility] Other 09-04-2021 09:10-0500 Systolic blood pressure 104 mm[Hg] Casandra Xochitlleoncio Other [facility] Other 04-10-2021 10:10-0400 Body height 160.02 cm Casandra Xochitlleoncio Other [facility] Other 04-10-2021 10:10-0400 Body mass index (BMI) [Ratio] 31 kg/m2 Casandra Xochitlleoncio Other [facility] Other 04-10-2021 10:10-0400 Body temperature 97.4 [degF] Casandra Chopra Other [facility] Other 04-10-2021 10:10-0400 Body weight 79.38 kg Casandra Chopra Other [facility] Other 04-10-2021 10:10-0400 Diastolic blood pressure 76 mm[Hg] Casandra Chopra Other [facility] Other 04-10-2021 10:10-0400 Respiratory rate 18 /min Casandra Chopra Other [facility] Other 04-10-2021 10:10-0400 SaO2% (BldA) [Mass fraction] 99 % Casandra Chopra Other [facility] Other 04-10-2021 10:10-0400 Systolic blood pressure 118 mm[Hg] Casandra Chopra Other [facility] Other Encounters Encounter Date Encounter Type Care Provider Facility Start: 01-11-2025 End: 01-11-2025 ambulatory Casandra Chopra DO Work Phone: [facility] Work Phone: Start: 01-11-2025 End: 01-11-2025 Patient encounter procedure Natalee Camarillo MD -[facility] Work Phone: Start: 12-30-2024 End: 12-30-2024 ambulatory Casandra Nav DO Work Phone: [facility] Work Phone: Start: 12-30-2024 End: 12-30-2024 Patient encounter procedure Al Ramírez APRN -[facility] Work Phone: Start: 12-29-2024 End: 12-29-2024 Patient encounter procedure Karlee Mckeon GUARD SUPERVIS[employer]-C -[facility] [address] Work Phone: Start: 12-29-2024 End: 12-29-2024 ambulatory Casandra Nav DO Work Phone: [facility] Work Phone: Start: 12-01-2024 End: 12-01-2024 ambulatory Casandra Leungleoncio DO Work Phone: [facility] Work Phone: Start: 12-01-2024 End: 12-01-2024 Discharged Recurring Casandra Chopra DO Work Phone: [facility] [place] Start: 11-23-2024 End: 11-23-2024 Patient encounter procedure Casandra Chopra DO Work Phone: [facility] Work Phone: Start: 11-14-2024 End: 11-14-2024 ambulatory Casandra Chopra DO Work Phone: [facility] Work Phone: Start: 11-14-2024 End: 11-14-2024 Patient encounter procedure Casandra Chopra DO Work Phone: [facility] [place] Work Phone: Start: 11-10-2024 Registered Recurring Casandra sanchez DO Work Phone: [facility] [place] Start: 11-03-2024 Non-patient / Non-visit Casandra Chopra DO Work Phone: [facility] Work Phone: Start: 11-03-2024 End: 11-03-2024 ambulatory Casandra Chopra DO Work Phone: [facility] Work Phone: Start: 11-03-2024 End: 11-03-2024 Departed Referred Casandra Chopra DO Work Phone: [facility] Start: 11-01-2024 Registered Recurring Casandra sanchez DO Work Phone: [facility]Physical [facility] [place] Start: 10-19-2024 End: 10-19-2024 ambulatory Casandra Chopra DO Work Phone: [facility] Work Phone: Start: 10-19-2024 End: 10-19-2024 Patient encounter procedure Casandra Chopra DO Work Phone: [facility] Work Phone: Start: 10-03-2024 Non-patient / Non-visit Casandra Chopra DO Work Phone: [facility] Work Phone: Start: 10-03-2024 End: 10-03-2024 Admission to same day surgery center Casandra Chopra DO Work Phone: [facility]Digestive [facility] Work Phone: Start: 10-03-2024 End: 10-03-2024 ambulatory Casandra Chopra DO Work Phone: [facility] Work Phone: Start: 09-27-2024 End: 09-27-2024 ambulatory Casandra Chopra DO Work Phone: [facility] Work Phone: Start: 09-27-2024 End: 09-27-2024 Patient encounter procedure Casandra Chopra DO Work Phone: [facility] Work Phone: Start: 09-27-2024 End: 09-27-2024 Patient encounter procedure Casandra Chopra DO Work Phone: [facility] Start: 09-27-2024 End: 09-27-2024 ambulatory Casandra Chopra DO Work Phone: [facility] Work Phone: Start: 09-20-2024 End: 09-20-2024 ambulatory [facility] Work Phone: Start: 09-20-2024 End: 09-20-2024 Patient encounter procedure [facility] Work Phone: Start: 09-14-2024 Non-patient / Non-visit [facility] Work Phone: Start: 05-16-2024 End: 05-16-2024 ambulatory PHYSICIAN NO [facility] Work Phone: Start: 05-16-2024 End: 05-16-2024 Patient encounter procedure PHYSICIAN NO [facility] [place] Work Phone: Start: 05-09-2024 Non-patient / Non-visit PHYSICIAN NO [facility] Work Phone: Start: 04-19-2024 End: 04-19-2024 ambulatory PHYSICIAN NO [facility] Work Phone: Start: 04-19-2024 End: 04-19-2024 Patient encounter procedure PHYSICIAN NO [facility] Work Phone: Start: 04-14-2024 End: 04-14-2024 Patient encounter procedure PHYSICIAN NO [facility] Work Phone: Start: 04-14-2024 End: 04-14-2024 ambulatory PHYSICIAN NO [facility] Work Phone: Start: 04-08-2024 Non-patient / Non-visit PHYSICIAN NO [facility] [place] Work Phone: Start: 04-06-2024 End: 04-06-2024 ambulatory PHYSICIAN NO [facility] Work Phone: Start: 04-06-2024 End: 04-06-2024 Patient encounter procedure PHYSICIAN NO [facility] [place] Work Phone: Start: 04-04-2024 End: 04-04-2024 Emergency department patient visit PHYSICIAN NO [facility]Emergency [facility] Work Phone: Start: 04-03-2024 Non-patient / Non-visit PHYSICIAN NO [facility] Work Phone: Start: 04-02-2024 Non-patient / Non-visit PHYSICIAN NO [facility] Work Phone: Start: 03-29-2024 Non-patient / Non-visit PHYSICIAN NO [facility] Work Phone: Start: 03-29-2024 End: 03-29-2024 ambulatory PHYSICIAN NO [facility] Work Phone: Start: 03-29-2024 End: 03-29-2024 Discharged Recurring PHYSICIAN NO [facility] [place] Start: 03-29-2024 Registered Recurring PHYSICIAN NO [facility] [place] Start: 03-23-2024 Non-patient / Non-visit PHYSICIAN NO [facility] Work Phone: Start: 03-09-2024 Non-patient / Non-visit PHYSICIAN NO [facility] Work Phone: Start: 02-24-2024 Non-patient / Non-visit PHYSICIAN NO [facility] Work Phone: Start: 02-23-2024 End: 02-23-2024 ambulatory PHYSICIAN NO [facility] Work Phone: Start: 02-23-2024 End: 02-23-2024 Patient encounter procedure PHYSICIAN NO [facility] Work Phone: Start: 02-16-2024 End: 02-16-2024 ambulatory PHYSICIAN NO [facility] Work Phone: Start: 02-16-2024 End: 02-16-2024 Departed Referred DO Casandra Chopra Work Phone: [facility]-Lab [facility] [place] Work Phone: Start: 02-16-2024 End: 02-16-2024 Patient encounter procedure DO Casandra Chopra Work Phone: [facility] [place] Work Phone: Start: 02-10-2024 Non-patient / Non-visit DO Casandra Chopra Work Phone: [facility] Work Phone: Start: 01-25-2024 Non-patient / Non-visit DO Casandra Chopra Work Phone: [facility] Work Phone: Start: 12-04-2023 Non-patient / Non-visit DO Casandra Leungleoncio Work Phone: [facility] Work Phone: Start: 05-12-2023 End: 05-12-2023 ambulatory Casandra Chopra Other [facility] Other Start: 05-12-2023 Telephone encounter Casandra Chopra [facility] [place] Start: 05-05-2023 End: 05-05-2023 ambulatory Casandra Chopra Other [facility] Other Start: 05-05-2023 Office outpatient visit 25 minutes Casandra Chopra [facility] [place] Start: 05-05-2023 Telephone encounter Casandra Chopra [facility] [place] Start: 02-23-2023 End: 02-23-2023 ambulatory Evasonali Laceylanden Other Monitoring Division [facility] [employer] Other Start: 02-23-2023 Office outpatient visit 15 minutes Eva Cortes [facility] Start: 02-19-2023 End: 02-19-2023 ambulatory DO Josiah Samuel Work Phone: [facility] Work Phone: Start: 02-19-2023 End: 02-19-2023 Patient encounter procedure DO Josiah Samuel Work Phone: [facility] [place] Work Phone: Start: 02-12-2023 End: 02-12-2023 ambulatory Casandra Chopra Other [facility] Other Start: 02-12-2023 Telephone encounter Casandra Chopra [facility] Start: 02-02-2023 End: 02-02-2023 ambulatory Casandra Chopra Other [facility] Other Start: 02-02-2023 Telephone encounter Casandra Chopra [facility] Start: 12-30-2022 End: 12-30-2022 ambulatory Germaine Mar Other [facility] Other Start: 12-30-2022 Telephone encounter Germaine [facility] Start: 12-29-2022 End: 12-29-2022 ambulatory Germaine Mar Other [facility] Other Start: 12-29-2022 Office outpatient ne w 45 minutes Germaineshannan Manuel [facility] Start: 12-02-2022 End: 12-03-2022 ambulatory CHRISSY VENEGAS . Facility:[facility] Start: 10-28-2022 End: 10-28-2022 ambulatory Casandra Chopra Other [facility] Other Start: 10-28-2022 Office outpatient visit 25 minutes Casandra Chopra [facility] Start: 10-22-2022 End: 10-23-[address] CASANDRA CHOPRA Facility:[facility] Start: 09-15-2022 End: 09-15-2022 ambulatory Casandra Chopra Other [facility] Other Start: 09-15-2022 Telephone encounter Casandra Chopra [facility] Start: 08-18-2022 End: 08-19-[address] CASANDRA CHOPRA Facility:[facility] Start: 05-12-2022 End: 05-13-[address] CASANDRA CHOPRA Facility:[facility] Start: 05-05-2022 End: 05-05-2022 ambulatory Casandra Chopra Other [facility] Other Start: 05-05-2022 Telephone encounter Casandra Chopra [facility] Start: 05-01-2022 End: 05-02-[address] CASANDRA CHOPRA Facility:[facility] Start: 04-14-2022 End: 04-15-[address] CASANDRA CHOPRA Facility:[facility] Start: 02-19-2022 End: 02-20-[address] CASANDRA CHOPRA Facility:[facility] Start: 02-04-2022 End: 02-04-2022 Patient encounter procedure Russell Chávez SHARRI [facility] Start: 12-30-2021 End: 12-31-[address] CASANDRA CHOPRA Facility:[facility] Start: 12-16-2021 End: 12-17-[address] CASANDRA CHOPRA Facility:[facility] Start: 12-03-2021 End: 12-03-2021 ambulatory Casandra Chopra Other [facility] Other Start: 12-03-2021 Telephone encounter Casandra Chopra [facility] Start: 10-22-2021 End: 10-22-2021 ambulatory Casandra Chopra Other [facility] Other Start: 10-22-2021 Telephone encounter Casandra Chopra [facility] Start: 10-17-2021 End: 10-17-2021 ambulatory Casandra Chopra Other [facility] Other Start: 10-17-2021 Office outpatient visit 25 minutes Casandra Chopra [facility] Start: 10-17-2021 Telephone encounter Casandra Chopra [facility] Start: 09-04-2021 End: 09-04-2021 ambulatory Casandra Chopra Other [facility] Other Start: 09-04-2021 Office outpatient visit 15 minutes Casandra Chopra [facility] Start: 04-24-2021 Telephone encounter Casandra Chopra [facility] Start: 04-10-2021 Office outpatient visit 15 minutes Casandra Chopra [facility] Procedures Date Procedure Procedure Detail Performing Clinician Start: 12-29-2024 Urine culture Casandra Chopra DO Work Phone: Start: 12-29-2024 Hemolytic complement CH50 level Casandra barton DO Work Phone: Comment on above: Age Male Female 1 - 30 days Not Estab. N ot Estab. 31 days - 6 months >32 >20 7 months - 17 years >39 >39 >17 years >41 >41 NOTE: The adult ( >17 years ) reference interval range is used to flag abnormals on this report. If the patient is 17 years old or younger, use the table above to determine out of range values.Performed at: [place] [id number] Director: Santiago Madrid PhD, Phone: [phone] Start: 11-03-2024 Urine culture Casandra Chopra DO Work Phone: Start: 10-03-2024 Esophagogastroduodenoscopy Casandra Chopra DO Work Phone: Start: 09-27-2024 Plain X-ray of right hand Casandra Jc O Work Phone: Start: 04-14-2024 Plain X-ray abdomen [facility] Start: 04-04-2024 Computed tomography of abdomen and pelvis with contrast [facility] Start: 04-04-2024 Bacteria identified in Urine by Culture [facility] Start: 04-04-2024 Urine culture [facility] Start: 02-23-2024 X-ray of left knee [facility] Start: 02-23-2024 X-ray of right knee [facility] Start: 02-16-2024 Bacteria identified in Urine by Culture [facility] Start: 02-16-2024 Urine culture [facility] Start: 02-19-2023 MR thoracic spine wo con DO Josiah Deelanden Work Phone: Start: 02-19-2023 XR pre/post mri xray DO Josiah Lizzie Work Phone: Start: 06-09-2018 Colonoscopy Russell NILRenetta Arthroscopy of shoulder Ethan ael NILL Excision of bunion Russell LEVINE Extraction of cataract Lele el NILL Hammer toe operation Russell HARRELL History of surgical procedure on cervical spine Russell BENITEZL Ligation of fallopian tube Darrell BENITEZL Release of tendon Russell ALANIZ LL Comment on above: left elbow Screening for malign ant neoplasm of breast Casandra Chopra Other Total abdominal hyst erectomy with bilateral salpingo-oophorectomy Russell BENITEZL Plan of Treatment Date Care Activity Detail Author Start: 12-29-2024 Bacteria identified in Urine by Culture Urine Culture [facility] Start: 12-29-2024 Hemolytic complement CH50 level [facility] Start: 12-29-2024 Urine culture [facility] Start: 11-03-2024 Bacteria identified in Urine by Culture Urine Culture [facility] Start: 11-03-2024 Urine culture [facility] Start: 10-03-2024 [facility] Start: 09-27-2024 Plain X-ray of right hand XR hand RT min 3V* [facility] Start: 09-27-2024 XR Hand - right GE 3 Views [facility] Start: 04-06-2024 Patient referral [facility] Work Phone: Start: 04-04-2024 Bacteria identified in Urine by Culture [facility] Start: 04-04-2024 Urine culture [facility] Start: 02-16-2024 Bacteria identified in Urine by Culture [facility] Complement C3 [Mass/volume] in Serum or Plasma [facility] Complement C4 [Mass/volume] in Serum or Plasma [facility] Comprehensive metabo lic 2000 panel - Serum or Plasma [facility] MG Breast - bilatera l Screening [facility] Patient Education [facility] Work Phone: Patient referral [facility] Work Phone: Urine culture [facility] Immunizations Immunization Date Immunization Notes Care Provider Shyla hall 04-20-2021 COVID-19 Vaccine Pfizer - Documentation Purposes Only Casandra Chopra Other [facility] 04-10-2021 influenza, seasonal, injectable Patient Objection Casandra Chopra Other [facility] Other 03-30-2021 COVID-19 Vaccine Pfizer - Documentation Purposes Only Casandra Chopra Other [facility] 11-21-2016 Toradol per 15 mg Casandra Calderon in Other [facility] Other 06-02-2016 influenza, seasonal, injectable Patient Objection Casandra Chopra Other [facility] Other 06-02-2016 pneumococcal polysaccharide vaccine, 23 valent Patient Objection Casandra Chopra Other [facility] Other 03-23-2012 Kenalog 40/Xylocaine Casandra mendieta Other [facility] Other NEGATED: Highlighted row has not occurred! 1 influenza, seasonal, injectable Patient Objection Casandra Chopra Other [facility] NEGATED: Highlighted row has not occurred! 6 influenza, seasonal, injectable Patient Objection Casandra Chopra Other [facility] NEGATED: Highlighted row has not occurred! 6 pneumococcal polysaccharide vaccine, 23 valent Patient Objection Casandra Chopra Other [facility] Payers Date Payer Category Payer Private Health Insurance [id number] Self-pay [id number] 2019 Medicare [id number] 2.16.8 [id number] 1959 Medicare [id number] 2. [id number]. 1959 Medicare [id number] 1959 Private Health Insurance [id number] 2.16.840.1.136083. 1959 Unknown [id number] 1952 Unknown [id number] 2.16.84 0.1.660903.3.579.2.593 1952 Unknown [id number] 2.16.84 0.1.086286.3.579.2.593 1952 Unknown [id number] 2.16.84 0.1.828719.3.579.2.593 1952 Unknown [id number] 2.16.84 0.1.361984.3.579.2.593 1952 Unknown [id number] 2.16.84 0.1.731387.3.579.2.593 1952 Unknown [id number] 2.16.84 0.1.146958.3.579.2.593 1952 Unknown [id number] 2.16.84 0.1.707750.3.579.2.593 1952 Unknown [id number] 2.16.84 0.1.829556.3.579.2.593 1952 Unknown [id number] 2.16.84 0.1.100151.3.579.2.593 1952 Unknown [id number] 2.16.84 0.1.536540.3.579.2.593 Unknown [id number] 2.16.8 40.1.549864.3.579.2.531 Unknown [id number] 2.16.8 40.1.278920.3.579.2.531 Unknown [id number] 2.16.8 40.1.972245.3.579.2.531 Unknown [id number] 2.16.8 40.1.671523.3.579.2.531 Unknown [id number] 2.16.8 40.1.635000.3.579.2.531 Unknown [id number] 2.16.8 40.1.166233.3.579.2.531 Unknown [id number] 2.16.8 40.1.207595.3.579.2.531 Unknown [id number] 2.16.8 40.1.261383.3.579.2.531 Unknown [id number] 2.16.8 40.1.450499.3.579.2.531 Unknown [id number] 2.16.8 40.1.188835.3.579.2.531 Social History Date Type Detail Facility Unknown if ever smoked [facility] Other Start: 07-06-1986 Sex Assigned At [facility] Other Start: 02-04-2022 Tobacco smoking status Heavy t obacco smoker (finding) [facility] Tobacco smoking status Never [facility] Start: 1950 Sex Assigned At Female F [facility] Start: 11-04-2023 End: 10-03-2024 Tobacco smoking status NHIS Smoker (finding) [facility] Start: 05-16-2024 End: 12-05-2024 Sex Female (finding) [facility] Start: 10-03-2024 Tobacco smoking stat us NHIS Smokes tobacco daily (finding) [facility] Goals Date Patient Goal Desired Activity /State Functional Status Date Assessment Result Facility 02-04-2022 Functional Status N/A [facility] Clinical Notes 08-11-2012 to 11-14-2024 Note Date & Type Note Facility 11-14-2024 Evaluation note Authored November 14, 2024 10:03 am The above note written by __ _Hero Cody____ acting as human recorder, note dictated by Dr. Li .I performed the above HPI, ROS, and Examination. I formulated and dictated the treatment plan and was present for entire encounter. Casandra Chopra D.O. [facility] Work Phone: 1(570) 661-253503-31-[address] [address] EGD Procedure Note Signed Patient: Genna Herrera MR#: [id number] : 1950 Acct:[id number] Age/Sex: 74 / F Adm Date: 5 Loc: Room: Type: [facility] Attending Dr: Misael Marcum MD Copies to: MD Casandra Armenta,DO~ Esophagogastroduodenoscopy Date/Provider Date: 10/03/2024 Misael Marcum MD Narrative Narrative: Procedure: EGD with biopsy Indication: 74-year-old female presents for EGD to evaluate dyspepsia, early satiety and unintentional weight loss Pre-operative diagnosis: Dyspepsia Post-operative diagnosis: LA grade a esophagitis Sedation: propofol per anesthesia dept O2 oximetry, hemodynamic monitoring was performed pre, during, and post procedure. Patient was identified, H&P completed, patient was given full explanation of the procedure as well as associatedrisks and written consent wasobtained prior to procedure. Patient expressed complete understanding of the procedure as well as alternatives to the procedure and to anesthesia and agreed to proceed with the procedure as indicated. Patient was immediately reassessed prior to IV sedation. Following IV sedation, patient was placed in the left lateral decubitus position. Bite block was inserted. Endoscope was passed through the mouth, into the esophagus. Endoscope was advanced into the stomach through the pyloricchannel and into the 2nd portion of duodenum by direct visualization. Endoscopewas withdrawn into the stomach and retroflexion was performed. The endoscope was straightened,the stomach was decompressed. Endoscope was withdrawn into the esophagus then completely removed with the findings as below. Findings: DUODENUM: bulb and descending portion appeared normal. Biopsies obtained, bottle 1-rule out celiac. STOMACH: pyloric channel, antrum, body, fundus and cardia, including retroflexedviews appear normal. ESOPHAGUS: Diaphragmatic hiatus was 41 cm from incisors. GE junction (upper margin of gastric folds) was at 41 cm from incisors. Squamocolumnar junction was at 41 cm from incisors. Mild LA grade a esophagitis. No evidence of Toussaint's esophagus with adequate screening performed. Biopsy taken: Yes Complications: None EBL: minimal Recommendations: -Follow up pathology -Start trial of more potent PPI with dose escalation -Follow-up in the office in 3 months on the higher dose PPI trial -Resume normal diet -Follow up with PCP Following a period of recovery, patient was seen and given full explanation of the procedure. Patient tolerated the procedure well and will be discharged in satisfactory, stable condition. Misael Marcum MD Documented By: Misael Marcum MD 10/03/24 1300 Signed By: 10/03/24 1343 [facility]03-18-2025 Evaluation note* Diagnosis Onset Date Resolution Status Admit Date Dyspepsia acute September 20 8:37am Early satiety acute September 20, 2024 8:37am Loss of appetite acute September 202024 8:37am Arthritis of carpometacarpal (CMC) joint of right thumb acute September 27, 2024 11:34am Arthritis of right hand acute [facility] 2024 11:34am [facility] Work Phone: 1(681) 741-612803-18-2025 Evaluation note* Diagnosis Onset Date Resolution Status Admit Date Dyspepsia acute September 20 8:37am Early satiety acute September 20, 2024 8:37am Loss of appetite acute September 202024 8:37am Arthritis of carpometacarpal (CMC) joint of right thumb acute September 27, 2024 11:34am Arthritis of right hand acute M arch 2024 11:34am Arthritis of carpometacarpal (CMC) joint of right thumb acute October 19, 2024 1:34pm Arthritis of right hand acute A pril 2024 1:34pm Arthritis of right wrist acute October 19, 2024 1:34pm Current smoker acute October 1:34pm Right carpal tunnel syndrome acute October 19, 2024 1:34pm Right hand pain acute October 1:34pm Right wrist tendinitis acute Ap ril 2024 1:34pm [facility] Work Phone: 1(545) 307-725803-18-2025 Evaluation note* Diagnosis Onset Date Resolution Status Admit Date Dyspepsia acute September 20 8:37am Early satiety acute September 20, 2024 8:37am Loss of appetite acute September 202024 8:37am Arthritis of carpometacarpal (CMC) joint of right thumb acute September 27, 2024 11:34am Arthritis of right hand acute M arch 2024 11:34am Arthritis of carpometacarpal (CMC) joint of right thumb acute October 19, 2024 1:34pm Arthritis of right hand acute A pril 2024 1:34pm Arthritis of right wrist acute October 19, 2024 1:34pm Current smoker acute October 1:34pm Right carpal tunnel syndrome acute October 19, 2024 1:34pm Right hand pain acute October 1:34pm Right wrist tendinitis acute Ap ril 2024 1:34pm Arthritis of carpometacarpal (CMC) joint of right thumb acute November 14, 025 8:45am COPD (chronic obstructive pulmonary disease) acute November 14 8:45am Gastritis acute November 14, 2024 8:45am Hyperlipidemia acute November 14, 2024 8:45am Macrocytosis acute November 14 8:45am Primary osteoarthritis of ri ght knee acute November 14, 2024 8 :45am Syncope acute November 14, 2024 8:45am Undifferentiated connective tissue disease acute November 14, 2024 8 :45am Weight loss acute November 14 8:45am [facility] Work Phone: 1(472) 537-403110-02-2024 Evaluation note* Author Casandra Chopra [facility] Authored April 06, 2024 8: 09am The above note written by __ _Hero Cody____ acting as human recorder, note dictated by Dr. Li .I performed the above HPI, ROS, and Examination. I formulated and dictated the treatment plan and was present for entire encounter. Casandra Chopra D.O. [facility] Work Phone: 1([phone]) 668-866308-13-2024 Evaluation note* Author Casandra Girvin [facility] Authored February 16, 2024 10 :49am The above note written by __ _Hero Cody____ acting as human recorder, note dictated by Dr. Li .I performed the above HPI, ROS, and Examination. I formulated and dictated the treatment plan and was present for entire encounter. Casandra Chopra D.O. [facility] Work Phone: 1(764) 182-778908-13-2024 Evaluation note* Author Casandra Chopra [facility] Authored February 16, 2024 10 :49am The above note written by __ _Hero Cody____ acting as human recorder, note dictated by Dr. Li .I performed the above HPI, ROS, and Examination. I formulated and dictated the treatment plan and was present for entire encounter. Casandra Chopra D.O. Author Casandra Chopra [facility] Authored April 06, 2024 9: 09am The above note written by __ _Hero Cody____ acting as human recorder, note dictated by Dr. Li .I performed the above HPI, ROS, and Examination. I formulated and dictated the treatment plan and was present for entire encounter. Casandra Chopra D.O. [facility] Work Phone: 1([phone]) 507-787910-31-2023 Evaluation note* Encounter Date Diagnosis Assessment Notes Treatment Notes Treatment Clinical Notes Apr, Hematuria (ICD-10 - R31.9) [facility] Other 10-31-2023 Evaluation note* Encounter Date Diagnosis [...] with above medications as directed. Apr, Other snf (current) drug therapy (ICD-10 - Z79.899) Apr, [...] him know. She has not been mulching. [facility] Other 08-21-2023 Evaluation note* Encounter Date Diagnosis Assessment Notes Treatment Notes Treatment Clinical Notes Feb, Compression fracture of T8 vertebra with routine healing, subsequent encounter (ICD-10 - S22.060D) [facility] Other 06-26-2023 Evaluation note* Encounter Date Diagnosis [...] (ICD-10 - R26.81) Dec, Other OARRS reviewed [facility] Other 04-25-2023 Evaluation note* Encounter Date Diagnosis [...] use above medications as needed. 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 Bell and his GUARD SUPERVISOR as scheduled. Oct, COPD (chronic obstructive [...] breaths out before she lifts anything heavy. [facility] Other 03-13-2023 Evaluation note* Encounter Date Diagnosis Assessment Notes Treatment Notes Treatment Clinical Notes Sep, Hyperlipidemia (ICD-10 - E78.5) [facility] Other 10-31-2022 Evaluation note* Encounter Date Diagnosis Assessment Notes Treatment Notes Treatment Clinical Notes Apr, Hematuria (ICD-10 - R31.9) [facility] Other 08-04-2022 NoteChief Complaint consultation for ventral hernia HPI Staff 71 year old female presents on consultation from Dr. Chopra for ventral hernia. Reports she moved [employer] [place] two months ago. Noted epigastric lump several [...] tab(s), Oral, Daily potassium (more content not included)...[facility]Result Comment: Electronically Signed By: SHARRI BECKERRussell\Date and Time Signed: 02/06/22 10:42 [id number] Evaluation note* Encounter Date Diagnosis Assessment Notes [...] medication as needed. 14 Oct, 2021 Other snf (current) drug therapy (ICD-10 - Z79.899) Oct, [...] will let me know if it worsens. 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 When she was seen by Dr. Bell's GUARD SUPERVISOR her BP was 80/60 so they [...] stress is going to go down soon. [facility] Other 10-06-2021 Evaluation note* Encounter Date Diagnosis [...] with above medication as needed. Apr, Other snf (current) drug therapy (ICD-10 - Z79.899) Apr, Other She voices that if she does not take Cranberry tablets her urine becomes thick so she does take the supplement daily. She will be getting her second COVID-19 vaccine on 04-20-21. [facility] Other 02-06-2013 History general Narrative - Reported* [...] natural 05/29/19 76 Hospitalization History natural 7 [facility] Other 02-06-2013 History general Narrative - Reported* [...] Surgical History cataract surgery both eyes Pars bonoe 2017 Surgical History Colonoscopy, Dr. Adama varma, needs repeat in 202406-09-2018 Hospitalization History above Hospitalization History natural 05/29/19 76 Hospitalization History natural 7 [facility] Other 02-06-2013 History general Narrative - Reported* [...] History natural 05/29/19 Hospitalization History natural 7 [facility] Other 02-06-2013 History general Narrative - Reported* [...] natural 05/29/19 74 Hospitalization History natural 7 [facility] Other evaluation + Plan note No data available for this section [facility] Evaluation noteNo InformationNort Ink[employer] Other Evaluation noteNo assessment information available [facility] Work Phone: Evaluation note* Diagnosis Onset Date Resolution Status Admit Date Dyspepsia acute September 20 8:37am Early satiety acute September 20, 2024 8:37am Loss of appetite acute September 202024 8:37am [facility] Work Phone: Hospital Discharge instructions No data available for this section [facility] Discharge instructions Additional Instructions Continue medications as prescribed Push fluids [place] diet avoid anything spicy, hot, greasy, fried, [...] You were [facility] Work Phone: Hospital Discharge instructionsAmbulatory Orders* Referral to Gastroenterology Time Frame: 04/06/24, Location: None Selected [facility] Work Phone: Progress note No data available for this section [facility] Reason for referral (narrative)No reason for referral information availableGu[facility] Work Phone: Summary Purpose Family History No Family History Records Found Relationship Condition Age at Onset Recorded Date/T faisal father Unknown Heart disease Unknown Asthma Unknown grandparent Diabetes mellitus Unknown grandparent Malignant neoplasm of stomach Unknown Malignant neoplasm Unknown mother History of stroke Unknown Unknown Advance Directives No Advanced Directives Records Found Advance Directive Response Recorded Date/ Time Advance Directives No April 07, 2019 4:41pm Advance Directive Response Recorded Date/ Time Advance Directives No April 07, 2019 3:41pm Chief Complaint and Reason for Visit Chief [...] right knee Primary osteoarthritis of right knee Chief Complaint Admit Date CONSULT DR. CHOPRA RT KNEE PAIN, WX 2023 8:04am M25.561 - Pain in right knee needs weigh tbearing February 23, 2024 8:06am right knee osteoarthritis March 10:15am abd pain April 04, 2024 12:39pm ER f/u UTI April 06, 2024 8: 06am Amb Documentation April 08, 2024 12 :34pm [id number] April 14, 2024 1 1:00am 8 WEEKS April 19, 2024 8 :26am review labs/ear irrigation May 8:47am Reason for Visit Admit Date Primary osteoarthritis of right knee Aug ust 2023 8:04am Abdominal pain April 06, 2024 8: 06am Cystitis April 06, 2024 8: 06am Diarrhea April 06, 2024 8: 06am Fatigue April 06, 2024 8: 06am Leukocytosis April 06, 2024 8: 06am Nausea and vomiting April 06, 2024 8: 06am Polyarthralgia April 06, 2024 8: 06am Primary osteoarthritis of right knee Oct tunde 2023 8:06am Primary osteoarthritis of right knee Oct tunde 2023 8:26am Screening mammogram for breast cancer No vember 2023 8:47am Chief Complaint Admit Date Refer Girvin: nausea w/vomiting, diarrrh ea September 20, 2024 8:37am Reason for Visit Admit Date Dyspepsia September 20, 2024 8:3 7am Early satiety September 20, 2024 8:3 7am Loss of appetite September 20, 2024 8:3 7am Chief Complaint Admit Date Refer Girvin: nausea w/vomiting, diarrrh ea September 20, 2024 8:37am M79.641 - Pain in right hand September 27, 2024 8:18am 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 NX M 2024 11:34am Reason for Visit Admit Date Dyspepsia September 20, 2024 8:3 7am Early satiety September 20, 2024 8:3 7am Loss of appetite September 20, 2024 8:3 7am Arthritis of carpometacarpal (CMC) joint of right thumb September 27, 2024 11:34am Arthritis of right hand September 27, 2024 11:34am Chief Complaint Admit Date Refer Girvin: nausea w/vomiting, diarrrh ea September 20, 2024 8:37am M79.641 - Pain in right hand September 27, 2024 8:18am 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 NX [facility] 2024 11:34am nausea/vomiting/hiatal hernia September 11:37am nausea/vomiting/hiatal hernia September 1:00pm Chief Complaint Admit Date Refer Girvin: nausea w/vomiting, diarrrh ea September 20, 2024 8:37am M79.641 - Pain in right hand September 27, 2024 8:18am 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 NX [facility] 2024 11:34am nausea/vomiting/hiatal hernia September 11:37am nausea/vomiting/hiatal hernia September 1:00pm CONSULT IRAIDA WOODS October 19, 2024 1:3 4pm Reason for Visit Admit Date Dyspepsia September 20, 2024 8:3 7am Early satiety September 20, 2024 8:3 7am Loss of appetite September 20, 2024 8:3 7am Arthritis of carpometacarpal (CMC) joint of right thumb September 27, 2024 11:34am Arthritis of right hand September 27, 2024 11:34am Arthritis of carpometacarpal (CMC) joint of right thumb October 19, 2024 1:34pm Arthritis of right hand October 19, 2024 1:34pm Arthritis of right wrist October 19 1:34pm Current smoker October 19, 2024 1:3 4pm Right carpal tunnel syndrome October 19, 2024 1:34pm Right hand pain October 19, 2024 1:3 4pm Right wrist tendinitis October 19, 2024 1:34pm Chief Complaint Admit Date Refer Girvin: nausea w/vomiting, diarrrh ea September 20, 2024 8:37am M79.641 - Pain in right hand September 27, 2024 8:18am 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 NX [facility] 2024 11:34am nausea/vomiting/hiatal hernia September 11:37am nausea/vomiting/hiatal hernia September 1:00pm CONSULT KAB R THUMB October 19, 2024 1:3 4pm R [facility] arthritis November 01, 2024 1:0 0pm Unknown November 03, 2024 8:26am Chief Complaint Admit Date Refer Girvin: nausea w/vomiting, diarrrh ea September 20, 2024 8:37am M79.641 - Pain in right hand September 27, 2024 8:18am 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 NX M arch 2024 11:34am nausea/vomiting/hiatal hernia September 11:37am nausea/vomiting/hiatal hernia September 1:00pm CONSULT KAB R THUMB October 19, 2024 1:3 4pm Unknown November 03, 2024 8:26am R [facility] arthritis November 10, 2024 1:00pm review labs November 14, 2024 8:45a m Reason for Visit Admit Date Dyspepsia September 20, 2024 8:3 7am Early satiety September 20, 2024 8:3 7am Loss of appetite September 20, 2024 8:3 7am Arthritis of carpometacarpal (CMC) joint of right thumb September 27, 2024 11:34am Arthritis of right hand September 27, 2024 11:34am Arthritis of carpometacarpal (CMC) joint of right thumb October 19, 2024 1:34pm Arthritis of right hand October 19, 2024 1:34pm Arthritis of right wrist October 19 1:34pm Current smoker October 19, 2024 1:3 4pm Right carpal tunnel syndrome October 19, 2024 1:34pm Right hand pain October 19, 2024 1:3 4pm Right wrist tendinitis October 19, 2024 1:34pm Arthritis of carpometacarpal (CMC) joint of right thumb November 14, 2024 8:45am COPD (chronic obstructive pulmonary dise ase) November 14, 2024 8:45am Gastritis November 14, 2024 8:45a m Hyperlipidemia November 14, 2024 8:45a m Macrocytosis November 14, 2024 8:45a m Primary osteoarthritis of right knee November 14, 2024 8:45am Syncope November 14, 2024 8:45a m Undifferentiated connective tissue disea se November 14, 2024 8:45am Weight loss November 14, 2024 8:45a m Chief Complaint Admit Date Refer Girvin: nausea w/vomiting, diarrrh ea September 20, 2024 8:37am M79.641 - Pain in right hand September 27, 2024 8:18am 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 NX M arch 2024 11:34am nausea/vomiting/hiatal hernia September 11:37am nausea/vomiting/hiatal hernia September 1:00pm CONSULT KAB R THUMB October 19, 2024 1:3 4pm Unknown November 03, 2024 8:26am review labs November 14, 2024 8:45a m 4-6 WEEKS November 23, 2024 3:11p m R CMC arthritis December 01, 2024 1:00p m Reason for Visit Admit Date Dyspepsia September 20, 2024 8:3 7am Early satiety September 20, 2024 8:3 7am Loss of appetite September 20, 2024 8:3 7am Arthritis of carpometacarpal (CMC) joint of right thumb September 27, 2024 11:34am Arthritis of right hand September 27, 2024 11:34am Arthritis of carpometacarpal (CMC) joint of right thumb October 19, 2024 1:34pm Arthritis of right hand October 19, 2024 1:34pm Arthritis of right wrist October 19 1:34pm Current smoker October 19, 2024 1:3 4pm Right carpal tunnel syndrome October 19, 2024 1:34pm Right hand pain October 19, 2024 1:3 4pm Right wrist tendinitis October 19, 2024 1:34pm Arthritis of carpometacarpal (CMC) joint of right thumb November 14, 2024 8:45am COPD (chronic obstructive pulmonary dise ase) November 14, 2024 8:45am Gastritis November 14, 2024 8:45a m Hyperlipidemia November 14, 2024 8:45a m Macrocytosis November 14, 2024 8:45a m Primary osteoarthritis of right knee November 14, 2024 8:45am Syncope November 14, 2024 8:45a m Undifferentiated connective tissue disea se November 14, 2024 8:45am Weight loss November 14, 2024 8:45a m Arthritis of carpometacarpal (CMC) joint of right thumb November 23, 2024 3:11pm Arthritis of right hand November 23, 2024 3 :11pm Arthritis of right wrist November 23, 2024 3:11pm Current smoker November 23, 2024 3:11p m Right carpal tunnel syndrome November 23, 2 025 3:11pm Right hand pain November 23, 2024 3:11p m Right wrist tendinitis November 23, 2024 3: 11pm Chief Complaint Admit Date nausea/vomiting/hiatal hernia September 11:37am nausea/vomiting/hiatal hernia September 1:00pm CONSULT KAB R THUMB October 19, 2024 1:3 4pm Unknown November 03, 2024 8:26am review labs November 14, 2024 8:45a m 4-6 WEEKS November 23, 2024 3:11p m R CMC arthritis December 01, 2024 1:00p m Reason for Visit Admit Date Arthritis of carpometacarpal (CMC) joint of right thumb October 19, 2024 1:34pm Arthritis of right hand October 19, 2024 1:34pm Arthritis of right wrist October 19 1:34pm Current smoker October 19, 2024 1:3 4pm Right carpal tunnel syndrome October 19, 2024 1:34pm Right hand pain October 19, 2024 1:3 4pm Right wrist tendinitis October 19, 2024 1:34pm Arthritis of carpometacarpal (CMC) joint of right thumb November 14, 2024 8:45am COPD (chronic obstructive pulmonary dise ase) November 14, 2024 8:45am Gastritis November 14, 2024 8:45a m Hyperlipidemia November 14, 2024 8:45a m Macrocytosis November 14, 2024 8:45a m Primary osteoarthritis of right knee November 14, 2024 8:45am Syncope November 14, 2024 8:45a m Undifferentiated connective tissue disea se November 14, 2024 8:45am Weight loss November 14, 2024 8:45a m Arthritis of carpometacarpal (CMC) joint of right thumb November 23, 2024 3:11pm Arthritis of right hand November 23, 2024 3 :11pm Arthritis of right wrist November 23, 2024 3:11pm Current smoker November 23, 2024 3:11p m Right carpal tunnel syndrome November 23, 2 025 3:11pm Right hand pain November 23, 2024 3:11p m Right wrist tendinitis November 23, 2024 3: 11pm Chief Complaint Admit Date nausea/vomiting/hiatal hernia September 11:37am nausea/vomiting/hiatal hernia September 1:00pm CONSULT KAB R THUMB October 19, 2024 1:3 4pm Unknown November 03, 2024 8:26am review labs November 14, 2024 8:45a m 4-6 WEEKS November 23, 2024 3:11p m R [facility] arthritis December 01, 2024 1:00p m 3 month follow up December 30, 2024 9:37 am Chief Complaint Admit Date CONSULT KAB R THUMB October 19, 2024 1:3 4pm Unknown November 03, 2024 8:26am review labs November 14, 2024 8:45a m 4-6 WEEKS November 23, 2024 3:11p m R CMC arthritis December 01, 2024 1:00p m soof December 29, 2024 9:56 am 3 month follow up December 30, 2024 9:37 am 7 wk recheck January 11, 2025 10:35 am Reason for Visit Admit Date Arthritis of carpometacarpal (CMC) joint of right thumb October 19, 2024 1:34pm Arthritis of right hand October 19, 2024 1:34pm Arthritis of right wrist October 19 1:34pm Current smoker October 19, 2024 1:3 4pm Right carpal tunnel syndrome October 19, 2024 1:34pm Right hand pain October 19, 2024 1:3 4pm Right wrist tendinitis October 19, 2024 1:34pm Arthritis of carpometacarpal (CMC) joint of right thumb November 14, 2024 8:45am COPD (chronic obstructive pulmonary dise ase) November 14, 2024 8:45am Gastritis November 14, 2024 8:45a m Hyperlipidemia November 14, 2024 8:45a m Macrocytosis November 14, 2024 8:45a m Primary osteoarthritis of right knee November 14, 2024 8:45am Syncope November 14, 2024 8:45a m Undifferentiated connective tissue disea se November 14, 2024 8:45am Weight loss November 14, 2024 8:45a m Arthritis of carpometacarpal (CMC) joint of right thumb November 23, 2024 3:11pm Arthritis of right hand November 23, 2024 3 :11pm Arthritis of right wrist November 23, 2024 3:11pm Current smoker November 23, 2024 3:11p m Right carpal tunnel syndrome November 23, 025 3:11pm Right hand pain November 23, 2024 3:11p m Right wrist tendinitis November 23, 2024 3: 11pm Dyspepsia December 30, 2024 9:37 am GERD (gastroesophageal reflux disease) J une 2024 9:37am Arthritis of carpometacarpal (CMC) joint of right thumb January 11, 2025 10:35am Arthritis of right hand January 11, 2025 1 0:35am Arthritis of right wrist January 11, 2025 10:35am Current smoker January 11, 2025 10:35 am Right carpal tunnel syndrome January 11 10:35am Right hand pain January 11, 2025 10:35 am Right wrist tendinitis January 11, 2025 10 :35am Reason for Referral Reason appt pt needs cons ult to evaluate left ear pain Diagnosis 1 Ear pain, left (H92. 02) Referral Organization [facility]pe Chen Referring Provider First Name Casandra Referring Provider Last Name Nav Referring Provider Specialty Family Prac amanda Referred Organization [facility] Referred Provider VaibhavjesBeth schuster Referred Address ,[place], [place],[address] Referred Provider Specialty Ear, Nose an d Throat Referral Priority Routine General Notes Eva Weaver 05/05/2023 10:59:36 AM > referral faxed thru [facility] with visit note and insurance card. pt understands she will be contacted to schedule this appt. Additional Source Comments INFORMATION SOURCE (unrecogn ized section and content) DATE CREATED AUTHOR 04/07/2019 [facility] DATE CREATED AUTHOR AUTHOR'S ORGANIZ ATION 03/01/2022 [facility] DATE CREATED AUTHOR AUTHOR'S ORGANIZ ATION 12/12/2022 [facility] DATE CREATED AUTHOR AUTHOR'S ORGANIZ ATION 01/17/2025 [facility] REASON FOR VISIT (unrecogniz ed section and content) review labsstarting medBP/ea rsclinicalreview labs/ear irrigationclinicalClinical Acute MedicineClinicalrefillreview labs/ear irrigationappt , pt needs consult to discuss compression fracture T8 seen on CT scanNeurosurgery Office NotesClinical/ear lobesupdates/p thoracic MRI secondary to T8 compression fractureClinicalClinicalreview labs/possible ear irrigationClinical Care Team (unrecognized sect ion and content) Team Status: Active Member Role Status Cayden Chopra DO Primary Care Provider Active Team Status: Inactive Member Role Status Cayden Chopra DO Primary Care Provider Active S tart: October 03, 2024 End: October 03, 2024 Misael Marcum MD Attending Provider Active S tart: October 03, 2024 End: October 03, 2024 Team Status: Active Member Role Status Cayden Chopra DO Primary Care Provider Active S tart: October 03, 2024 Misael Marcum MD Attending Provider Active S tart: October 03, 2024 Misael Marcum MD Other Provider Active Start : October 03, 2024 Team Status: Inactive Member Role Status Cayden Chopra DO Primary Care Provider Active S tart: October 19, 2024 End: October 19, 2024 Nataele Camarillo MD Attending Provider Active Start: October 19, 2024 End: October 19, 2024 Team Status: Inactive Member Role Status Cayden Chopra DO Attending Provider Active Star t: November 03, 2024 End: November 03, 2024 Team Status: Active Member Role Status Cayden Chopra DO Primary Care Provider Active S tart: November 03, 2024 Casandra Chopra DO Attending Provider Active Star t: November 03, 2024 Team Status: Inactive Member Role Status Cayden Chopra DO Primary Care Provider Active S tart: November 14, 2024 End: November 14, 2024 Casandra Chopra DO Attending Provider Active Star t: November 14, 2024 End: November 14, 2024 Team Status: Inactive Member Role Status Cayden Chopra DO Primary Care Provider Active S tart: November 23, 2024 End: November 23, 2024 Natalee Camarillo MD Attending Provider Active Start: November 23, 2024 End: November 23, 2024 Team Status: Inactive Member Role Status Cayden Chopra DO Primary Care Provider Active S tart: December 01, 2024 End: December 01, 2024 Natalee Camarillo MD Attending Provider Active Start: December 01, 2024 End: December 01, 2024 Team Status: Inactive Member Role Status Cayden Chopra DO Primary Care Provider Active S tart: December 29, 2024 End: December 29, 2024 PITO Hurtado Attending Provider Active Start: December 29, 2024 End: December 29, 2024 Team Status: Active Member Role Status Cayden Chopra DO Primary Care Provider Active S tart: September 14, 2024 Sebastian Bell MD Attending Provider Active St art: September 14, 2024 Team Status: Inactive Member Role Status Cayden Chopra DO Primary Care Provider Active S tart: September 20, 2024 End: September 20, 2024 Misael Marcum MD Attending Provider Active S tart: September 20, 2024 End: September 20, 2024 Team Status: Inactive Member Role Status Dates PHYSICIAN NO FAMILY Primary Care Provider Active Start: February 23, 2024 End: February 23, 2024 Domingo George , Attending Provider Active St art: February 23, [...] St art: March 23, 2024 Team Status: Inactive Member Role Status Cayden George DO Attending Provider Active St art: March 29, 2024 End: March 29, 2024 Casandra Chopra DO Primary [...] Sta rt: April 02, 2024 Team Status: Active Member Role Status Cayden Chopra DO Primary Care Provider Active S tart: April 03, 2024 Jamin Sam DO Attending Provider Active Sta rt: April 03, 2024 Team Status: Inactive Member Role Status Cayden Chopra DO Primary Care Provider Active S tart: April 04, 2024 End: April 04, 2024 Sabrina Gómez APRN Emergency Provider Active Start: April 04, 2024 End: April 04, 2024 Team Status: Inactive Member Role Status aCyden Chopra DO Primary Care Provide r, Attending [...] Team Status: Inactive Member Role Status Cayden George DO Attending Provider Active St art: April 19, 2024 End: April 19, 2024 Casandra Chopra DO Primary Care Provider Active S tart: April 19, 2024 End: April 19, 2024 Team Status: Active Member Role Status Cayden Chopra DO Primary Care Provider Active S tart: May 09, 2024 Sebastian Bell MD Attending Provider Active St art: May 09, 2024 Team Status: Inactive Member Role Status Cayden Chopra DO Primary Care Provide r, Attending Provider Active Start: May 16, 2024 End: May 16, 2024 Team Status: Active Member Role [...] Cayden Samuel DO Primary Care Provider Active Germaine Manuel NP-C Attending Provider Active Team Status: Inactive Member Role Status Cayden Chopra DO Attending Provider Active Star t: February 16, 2024 End: February 16, 2024 Team Status: Active Member Role Status Dates Domingo George DO Attending Provider Active St art: March 29, 2024 Casandra Chopra DO Primary Care Provider Active S tart: March 29, 2024 Team Status: Active Member Role Status Cayden Chopra DO Primary Care Provider Active S tart: September 27, 2024 Domingo George , DO Attending Provider Active St art: September 27, 2024 Team Status: Inactive Member Role Status Cayden Chopra DO Primary Care Provider Active S tart: September 27, 2024 End: September 27, 2024 Domingo George , DO Attending Provider Active St art: September 27, 2024 End: September 27, 2024 Team Status: Active Member Role Status Cayden Chopra DO Primary Care Provider Active S tart: October 03, 2024 Misael Marcum MD Attending Provider, Other Provider Active Start: October 03, 2024 Team Status: Active Member Role Status Cayden Chopra DO Primary Care Provider Active S tart: November 01, 2024 Natalee Camarillo MD Attending Provider Active Start: November 01, 2024 Team Status: Active Member Role Status Caydne Chopra DO Primary Care Provide r, Attending Provider Active Start: November 03, 2024 Team Status: Active Member Role Status Cayden Chopra DO Primary Care Provider Active S tart: November 10, 2024 Natalee Camarillo MD Attending Provider Active Start: November 10, 2024 Team Status: Inactive Member Role Status Dates Casandra Chopra DO Primary Care Provide r, Attending Provider Active Start: November 14, 2024 End: November 14, 2024 Team Status: Inactive Member Role Status Cayden Chopra DO Primary Care Provider Active S tart: December 30, 2024 End: December 30, 2024 Al Ayala APRN Attending Provider Active Start: December 30, 2024 End: December 30, 2024 Team Status: Inactive Member Role Status Cayden Chopra DO Primary Care Provider Active S tart: January 11, 2025 End: January 11, 2025 Natalee Camarillo MD Attending Provider Active Start: January 11, 2025 End: January 11, 2025 Goals (unrecognized section and content) Goals may [...] BE BASED ON THE PRIMARY CLINICAL RECORDS. [facility]. provides no warranty or guarantee of the accuracy or completeness of information in this document.
== END 2025-04-13 11:43 | disposition home or self-care (01) ==
LOC: RAD 11:42
PROVIDERS: PCP Family Medicine; Visit Provider Physician Assistant
DX: M17.11 Unilateral primary osteoarthritis, right knee (principal); M25.461 Effusion, right knee
CPT/HCPCS: 73560; 73564

== ENCOUNTER 2025-05-02 09:03 | Outpatient (OUT) | payer MEDICARE, SELFPAY ==
--- OUTSIDE RECORDS SUMMARY | 2025-04-25 07:22 | XMS_ITS | Continuity of Care Document ---
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 Name Role Phone Emilia Melo HORAN Primary Care Provider Domingo George DO Attending Provider Natalee Camarillo MD Attending Provider [phone] Care Teams Patient Care Team Team Status: Active Member Role/Relationship Status Dates Melo Nieto DO Primary Care Provider Active Visit Care Team Team Status: Inactive Member Role/Relationship Status Dates Melo Nieto DO Primary Care Provider Active S tart: April 13, 2025 End: April 13, 2025Domingo George DOAttcladuine ProviderActiveStart: April 13, 2025 End: April 13, 2025 Patient Care Team Team Status: Inactive Member Role/Relationship Status Dates Melo Nieto DO Primary Care Provider Active S tart: April 25, 2025 End: April 25ollwanda Camarillo MDAttclaudine ProviderActiveStart: April 25, 2025 End: April 25, 2025 Chief Complaint and Reason for Visit Chief Complaint Admit Date VIVEK OP SP RT KNEE PAIN April 13, 2025 11:39am 3 MONTHS April 25, 2025 1 0:23am Reason for Visit Admit Date Primary osteoarthritis of right knee Oct tunde 2024 11:39am Arthritis of carpometacarpal (CMC) joint of right thumb April 25, 2025 10:23am Arthritis of right hand April 25 25 10:23am Arthritis of right wrist April 25, 2 025 10:23am Current smoker April 25, 2025 1 0:23am De Quervain's tenosynovitis, right Octob er 2024 10:23am Right carpal tunnel syndrome April 10:23am Right hand pain April 25, 2025 1 0:23am Allergies, Adverse Reactions, Alerts Allergen Type Severity Reaction Last Updated Verified Status bupropion Allergy Unknown made anxiety wo rse was prescribed by Dr. Copeland April 25, 2025 10:28am Yes Active tramadol Allergy Unknown constipation April 25, 2025 10:28am Yes Active azathioprine Adverse Reaction Severe Gastrointestinal Upset April 25, 2025 10:28am Yes Active sulfamethizole Adverse Reaction Severe Abdominal Pain April 25, 2025 10:28am Yes Active Social History Smoking Status Status Start Date End Date Date of Observa tion Smokes tobacco daily (finding) October 03, 2024 11:55am Observation Status Observation Response Date of Response Legal Sex Female (finding) [facility] 1950 Family History Relationship Condition Age at Onset Recorded Date/T faisal father Unknown Heart diseaseUnknownAsthmaUnknowngrandparentDiabetes mellitusUnknowngrandparent Malignant neoplasm of stomachUnknownMalignant neoplasmUnknownmotherHistory of strokeUnknownHeart diseaseUnknownDeceasedUnknown Problems Active Problems Problem Diagnosis/Recorded Date Onset Date Stat us Right carpal tunnel syndrome October 19, 2024 2:09pm U nknown Active Right hand pain September 26, 2024 6:26am Unknown A ctive Compression fracture of thor acic vertebra, non-traumatic November 04, 2023 9:33am Unknown Active De Quervain's tenosynovitis, right April 25, 2025 11:16am Unknown Active Primary osteoarthritis of right knee February 23, 2024 8:49am Unknown Active Impacted cerumen November 04, 2023 9:27am Unknown Act jayden Fatigue February 16, 2024 10:00am Unknown Ac tive Loss of appetite September 20, 2024 9:29am Unknown Active Polyarthralgia November 04, 2023 9:26am Unknown Activ e Anemia November 04, 2023 9:38am Unknown Active Diarrhea February 16, 2024 10:23am Unknown Ac tive Dyspepsia September 20, 2024 9:28am Unknown Acti ve Dyspepsia December 30, 2024 10:38am Unknown Acti ve Edema November 04, 2023 9:26am Unknown Active Gastritis November 03, 2023 4:10pm Unknown Acti ve Hyperlipidemia November 04, 2023 9:25am Unknown Activ e Leukocytosis April 06, 2024 8:37am Unknown Act jayden Early satiety September 20, 2024 9:28am Unknown Act jayden Near syncope November 14, 2024 9:16am Unknown Active Syncope November 14, 2024 9:19am Unknown Active Weight loss February 16, 2024 10:16am Unknown Ac tive Macrocytosis November 04, 2023 9:25am Unknown Active Abnormal finding on urinalysis February 16, 2024 10:21 am Unknown Active Knee pain, right February 15, 2024 9:44am Unknown Active Shoulder pain, left November 04, 2023 9:53am Unknown Active Left wrist pain January 11, 2025 10:53am Unknown Ac tive COPD (chronic obstructive pu lmonary disease) February 16, 2024 8:38am Unknown Active Encounter for long-term (cur rent) use of other medications November 04, 2023 9:26am Unknown Active Leukocytes in urine February 16, 2024 10:21am Unknown Active Undifferentiated connective tissue disease April 19, 2024 8:33am Unknown Active GERD (gastroesophageal reflux disease) December 30, 2024 10:38am Unknown Active Nausea and vomiting April 06, 2024 8:37am Unknown Active Abdominal pain April 06, 2024 8:37am Unknown A ctive Cystitis March 29, 2024 9:55am Unknown Active Arthritis of carpometacarpal (CMC) joint of right thumb September 27, 2024 12:30pm Unknown Active Hiatal hernia November 04, 2023 9:42am Unknown Active Arthritis of right hand September 27, 2024 12:24pm Unkno wn Active Arthritis of right wrist October 19, 2024 2:09pm Unkno wn Active Right wrist tendinitis October 19, 2024 2:09pm Unknown Active Current smoker October 19, 2024 2:16pm Unknown Ac tive Inactive/Resolved Problems Problem Diagnosis/Recorded Date Onset Date Stat us History of UTI April 04, 2024 6:50pm Unknown Resolved Acid reflux April 04, 2024 6:50pm Unknown Resolved Medications Medication Status Dose Units Route Directions Qty Days Refills S tart Date Stop Date End Date Reason(s) Instructions Adherence Atorvastatin 10 mg tablet Discontinued 0 .ROUTE.KENWIKG574Hocqf 2023 12:08pmApril 2023 4:16pmTAKE 1 TABLET BY MOUTH EVERY DAYPotassium Chloride 10 mEq tablet extended releaseDiscontinued0 .ROUTE.EREPKVX706Dgeis 2023 8:57amApril 2023 4:16pmTAKE 1 TABLET BY MOUTH EVERYDAY WITH FOODCyanocobalamin (Vitamin B-12) 1,000 mcg tablet Discontinued0.ROUTE.FVEMRFS805Obatc 2023 11:47amApril 2023 4:16pm TAKE 1 TABLET BY MOUTH EVERY OTHER DAYAmoxicillin-Pot Clavulanate 875-125 mg fnqxpeOcwpzejulxvi2DFFTTDrvtt zcwyu109Pzts 2023 12:00amJuly 2023 9:21amFurosemide 20 mg tabletDiscontinued0.ROUTE.UPOQSLU474Jold 2023 11:07ugust 2023 10:07amTAKE 1 TABLET BY MOUTH ONCE EVERY MORNING Azathioprine 50 mg woolwqYypofnnwmanq80VERPEwdzm624Aozg 2023 12:00ugust 2023 8:33amordered by Dr. McdanielPantoprazole 40 mg tablet,delayed release (/EC)Discontinued0.ROUTE.NAURFTX237Vggwks 2023 8:49amAugust 2023 10:07amTAKE 1 TABLET BY MOUTH EVERY DAYCyanocobalamin (Vitamin B-12) (Vitamin B- 12) 1,000 mcg vdjcbcDhngguzriuhn0385VKEAN.QKM60971Rcxpxuf 2023 12:00am April 15, 2024 10:38amCyanocobalamin (Vitamin B-12) 1,000 mcg tablet Discontinued0.ROUTE.ANLHMBB336Uirniwh 2023 10:38amFebruary 2024 11:06amTAKE 1 TABLET BY MOUTH EVERY OTHER DAYFurosemide 20 mg tabletDiscontinued 0.ROUTE.XABQLCJ560Hdsasdr 9th, 2025 11:11amJune 2024 2:49pmTAKE 1 TABLET BY MOUTH ONCE EVERY MORNINGCyanocobalamin (Vitamin B-12) 1,000 mcg tablet Discontinued0.ROUTE.VYAXEUT464Plqdnnuc 2024 11:06amAugust 2024 8:04amTAKE 1 TABLET BY MOUTH EVERY OTHER DAYPotassium Chloride 10 mEq tablet extended releaseActive0.ROUTE.GCADCII325Ukstb 2024 9:56amTAKE 1 TABLET BY MOUTH EVERYDAY WITH FOODComplies with drug therapyFurosemide 20 mg tabletActive0 .ROUTE.FCUGJJT039Mewh 2024 2:49pmTAKE 1 TABLET BY MOUTH ONCE EVERY MORNING Complies with drug therapyCyanocobalamin (Vitamin B-12) 1,000 mcg tabletActive0 .ROUTE.SLWTJQT158Oiexey2024 8:04amTAKE 1 TABLET BY MOUTH EVERY OTHER DAY Complies with drug therapyPantoprazole 40 mg tablet,delayed release (DR/EC) Ilorbttfmcyh93APFRQsqwr351Iwwxhlqlz 2024 10:42amSept2024 11:14amPantoprazole 40 mg tablet,delayed release (DR/EC)Active0.ROUTE.OCPUYAD931 March 21, 2025 11:14amTAKE 1 TABLET BY MOUTH EVERY DAYComplies with drug therapyOndansetron 4 mg tablet,ntpqrtqsxmiuonQlhttrpsuduo3OFCUWitkx times daily9 30September 2023 12:00amMarch 2024 10:57amOndansetron 4 mg tablet,aqvvzivdwqorjvSimwpmshyjxu4AHPOTsjqy times daily as needed for nausea and vomitingMarch 2024 12:00amMarch 2024 12:13pmOmeprazole 40 mg capsule,delayed release(DR/EC)Nvhuzneqfyxw34DYHBBpaom505Srfgc 2024 12:00am March 21, 2025 10:41amAtorvastatin 10 mg acayjdSwrucohkyame44YCDSQabpj Ana 2023 4:13pmMar 2024 12:14pmCyanocobalamin (Vitamin B-12) 1,000 mcg pzchstNqddyetcrbsw0359JRMNSItfzzEzwpm 2023 4:14pmMay 2023 9:09amPotassium Chloride 10 mEq tablet extended bvolgxxKhcwbabyayhs30BVARHBjoxg November 03, 2023 4:14pmMarch 2024 9:56amFurosemide 20 mg tablet Wnknmgnbwqik52VVXDJeduc morningApril 2023 12:00amJuly 2023 11:07am Ipratropium [place] 21 mcg (0.03 %) spray,non-rrjmdtiNxvtfoebzgsm5JQZJU INTRANASALTwice dailyApr2023 12:00amMay 2023 9:09amAlbuterol Sulfate (Ventolin Hfa) 90 mcg/actuation HFA aerosol kcbdxguBcwslbedrtpn0MRAD INHALATIONEvery 4 hours as needed for shortness of breath or wheezingApr2023 12:00amMarch 2024 12:14pmHydroxychloroquine 200 mg zboocqNlvpjx668GS POTwice dailyApr2023 12:00amComplies with drug therapyPantoprazole 40 mg tablet,delayed release (DR/EC)Tuvflgcnvmzc02LFSDRblojTphgh 2023 12:00am February 08, 2024 8:49amAscorbic Acid (Vitamin C) 500 mg fszcijOncijndyziti030RH PODailyApril 2023 12:00amMay 2024 9:09amAcetaminophen (Tylenol Arthritis Pain) 650 mg tablet extended tcfbaymDuhhyl0509PTLAVwsho 8 hours as needed for painApril 2023 12:00amComplies with drug therapy Ulbldsodbaq-Cbdwnshpi-Wmmpwruh (Trelegy Ellipta) 100-62.5-25 mcg blister with mswzxdIpsnjmdmfgtc4WHSBOMWUGPUWKKsmiaYimja 2023 12:00amOctober 2023 8:25amCranberry Extract 405 mg pscwwpgSmmawuibbahj012ZTPNVbrloMyflh 2023 12:00amMarch 2024 10:55amadminister with a mealCyanocobalamin (Vitamin B- 12) 1,000 mcg htnnzuRmdrhafemauw0217VCMCW.qodMay 2023 9:032023 8:28amIpratropium [place] 21 mcg (0.03 %) spray,non-vsigzpsSmmmjy2SOFRA INTRANASALTwice daily as needed for allergy symptomsMa2023 9:04amComplies with drug therapyLidocaine 5 % adhesive patch,zikjrrnloDyokioctmmpw5WZXSXIIOJPMG DailyMa2023 12:00amAugust 2023 9:58amFreeTextSi patch remove after 12 hours Externally Once a day; Note: Source Status: Takingprn; Provider: Mar Herron RDocusate Sodium 100 mg lfgpetuXvgvahintzhn6YFDPU.3x weekMa2023 12:00amMarch 2024 12:13pmFreeTextSi capsule Orally Once a day; Note: Source Status: Not-Taking\PRNprn; Provider: Emilia Alejo CEtodolac 400 mg yidqgaDmubfvjuqtyt328RXXJBwife dailyMa2023 12:00amOctober 2023 8:21amIbandronate 150 mg jumosxCotnsk628EJZUfulvu monthMa2023 12:00am1 tablet 60 minutes before the first food, beverage or medicine of the day with plain water Orally once a monthComplies with drug therapyAscorbic Acid (Vitamin C) 500 mg ioxwhtAjyaml0ALBQHjovzQsl 2024 9:01amComplies with drug therapyAtorvastatin 10 mg pqbvtyQlkfhqruiwhc9WEPNAAryivIulyu 2023 1:00am September 07, 2023 12:08pmFreeTextSig: TAKE 1 TABLET BY MOUTH EVERY DAY; Note: Source Status: Taking; Provider: Emilia Alejo CMethylprednisolone (Medrol) 4 mg noirkwAoonggyqdcio6MJBRVazja as neededAugust 2023 12:002023 8:32amFurosemide 20 mg efjsmnUqpjobscxknj79YVDS.COMPLEXAugust 2023 10:07am February 23, 2024 8:33am20 mg orally TAKE 1 TABLET BY MOUTH ONCE EVERY MORNING; Pantoprazole 40 mg tablet,delayed release (DR/EC)Soibljnbinjf25IJYLOsvwyJxqccf 2023 10:07amMarch 2024 1:43pmVitamin Y26-Xcunm Acid 500-400 mcg bxlfgzXixswkyirler3GINXWBtzuyTzqjfm 2023 12:00amMay 2024 9:08am administer with a mealCyclobenzaprine 10 mg wzcvwxVpkwbcitlrbv71RABJCwtuj times dailyAugust 2023 12:00amMarch 2024 9:02am Mfvmevrydmi-Elomwrojs-Dyjcgwvu (Trelegy Ellipta) 100-62.5-25 mcg blister with drysvlNoetea6MGRPHWRBNWKMVThhnzMunvzm 2023 12:00amComplies with drug therapyMethotrexate Sodium 2.5 mg tabletDiscontinued2.5MGPOevery weekAugust 2023 12:00amNovember 2023 10:07amDocusate Sodium (Dulcolax Stool Softener (Dss)) 100 mg lvsdedyGczlgj713EJJUDhqfpWbf 2024 12:00amComplies with drug therapyturmeric curcumin 1,500 mg capsuleActivePOMay 2024 12:00amComplies with drug therapycalcium 1,200 mg capsuleActivePOTwice dailyMay 2024 12:00amComplies with drug therapyIbandronate 150 mg tablet Mchetpktlyek749CHBSyldxz kfklq68Meb 2024 12:00amJune 2024 10:05am Potassium Chloride 10 mEq tablet extended releaseDiscontinuedMEQPOMarch 2023 12:00amMarch 2023 8:57amFreeTextSig: TAKE 1 TABLET BY MOUTH EVERYDAY WITH FOOD; Note: Source Status: Taking; Provider: Emilia Alejo ( )B12 1,000 mcg xmvsuvHavhaszhvsah5TQZRY.qodApril 2023 12:00am November 02, 2023 11:84llNk-Uuh-Vpfio-Calcium Carb-K1 (Women's 50 Plus Multivitamin) 400 mcg-500 mg calcium-20 mcg zhurdvAbzdrs0REQPWGmfyfXsqvbfdy 2023 1:00amComplies with drug therapySulfamethoxazole-Trimethoprim 800-160 mg tabletDiscontinuedTABPODailyOctober 2023 12:00amOctober 2023 8:45am Azathioprine 50 mg nclirtOmbbhacsyrvm28OCSEYqlhsLqumthy 2023 12:00amOctober 2023 8:58amEtodolac 500 mg llldigNcuijj333SQNTYlngf dailyOct2023 12:00amComplies with drug therapyFurosemide 20 mg kkzvqmLotuqxplytab05TVDZNiqvd April 06, 2024 12:00amJanuary 2024 11:12am Immunizations Immunization Event Date Not Given Reason Dose Number Pattern Finisher Lot Number Reason(s) Given Vaccine Information Statement (VIS) Detail Administration Location COVID-19 mRNA, Comirnaty (Pfizer) March COVID-19 mRNA, Comirnaty (Pfizer)April 20neumococcal Polysacc. Vaccine, 23 valentNov2015Patient RefusedTrivalent Influenza Vaccine June 02, 2016Patient [facility] Patient Refused Advance Directives Advance Directive Response Recorded Date/ Time Advance Directives No April 07, 2019 4:41pm Insurance Providers Guarantor Corbybharathi Renetta Herrera Address [address] [place] [id number] Info.Home Phone: Payer Group Member ID Coverage Type Subscriber Relationship to Subscriber Effective Date Expiration Date Jimmy PRABHAKAR [id number] Riedy , D Id: [id number] [facility] [id number] Home Phone: Encounters Encounter Location(s) Arrival/Admit Date Discharge/Departure Date Discharge/Departure Disposition Provider(s) Departed Physician/ Provider Office Visit -[facility] April 13, 2025 11:39am April 13, 2025 1:00pm Discharged to home care or self care (routine discharge) Domingo George DO Departed Physician/ Provider Office Visit -[facility] April 25, 2025 10:23am April 25, 2025 11:21am Discharged to home care or self care (routine discharge) Natalee Camarillo MD Recent Diagnosis Onset Date Admit Date Primary osteoarthritis of right knee Unknown April 13, 2025 11:39am Arthritis of carpometacarpal (CMC) joint of right thumb Unknown April 25, 2025 10:23am Arthritis of right hand Unknown April 25, 2025 10:23am Arthritis of right wrist Unknown April 25, 2025 10:23am Current smoker Unknown April 25 10:23am De Quervain's tenosynovitis, right Unknown April 25, 2025 10:23am Right carpal tunnel syndrome Unknown Apr 10:23am Right hand pain Unknown April 25 10:23am Assessments Diagnosis Onset Date Resolution Status Admit Date Primary osteoarthritis of right knee acuteApril 13, 2025 11:39amArthritis of carpometacarpal (CMC) joint of right thumbacuteOct2024 10:23amArthritis of right handacuteOct2024 10:23amArthritis of right wristacuteOct2024 10:23amCurrent smokeracuteApril 25, 2025 10:23amDe Quervain's tenosynovitis, rightacute April 25, 2025 10:23amRight carpal tunnel syndromeacuteOct2024 10:23amRight hand painacuteOct2024 10:23am Plan of Treatment Author Winter [facility]jud[facility] HospitalAuthoredApril 24, 2025 3:13tw11-upaj-kgy woman with right carpal tunnel syndrome and right thumb CMC arthritis - Discussion held with patient regarding diagnosis and treatment options. At this time, we've discussed nonoperative versus operative treatment options. - Regarding nonoperative treatment options, this would include an initial trial of cortisone injection, as well as night splinting. In general, cortisone injections are considered diagnostic, therapeutic, and prognostic. A positive response with reduction in symptoms following a cortisone injection, confirms the diagnosis, as well as provides therapeutic treatment with lessening of painful symptoms and temporary decreased compression across the median nerve. However, these results may be temporary, and further treatments either with repeat cortisone injection or surgical treatment may become necessary. In addition, a cortisone injection as prognostic in that if there is a positive response with reduction of symptoms following a cortisone injection, there will likely be improvement following surgical treatment. - Operative treatment would consist of carpal tunnel release - Patient was counseled that the nerve may recover regenerate 1 mm per day or 1 inch per month along the sensory fibers. Regarding motor fibers, we do not know at what point we are intervening in the release of the nerve compression. If there has been permanent injury to the nerve, the motor nerve may not be capable of full recovery, though at least nerve decompression would prevent progression or worsening with further loss of motor fibers. In the recovery of motor strength or function is seen as a bonus not as a guarantee - Patient may benefit from EMG for evaluation of severity of nerve compression - At this time, the patient has elected for trial of cortisone injection - Night splinting to the right carpal tunnel in the interim - Patient exhibits findings consistent with arthritis involving the thumb CMC joint. At this time, I would recommend a course of nonoperative treatment/ continuance with nonoperative treatment including: Scheduled anti-inflammatory medication for control of arthritic flares, intra-articular corticosteroid injections as needed (no more frequently than 12 weeks apart), and supportive bracing during provocative activities (Bowen-Pee, Thumb Spica). Patient was counseled that regular long-term use of anti-inflammatory medications may require further follow-up with patient's primary care physician for medical monitoring. - Should the patient fail to improve with nonoperative treatments, or should nonoperative treatments fail to provide lasting pain relief, we have discussed the possibility of future surgical treatments including: CMC arthrodesis versus trapeziectomy with ligament reconstruction Patient was counseled that to be a surgical candidate, she would need to cease smoking and be smoke free for three months before surgery in order to modify modifiable risk factors such as smoking which adversely affect surgical outcomes and contribute to surgical failure and potential complications Especially given the patient's history of scleroderma, smoking cessation would be recommended, as scleroderma and vasculitis would also have an association with negative surgical outcomes and would be exacerbated by smoking - Patient was counseled preoperatively that with thumb interposition arthroplasty despite best efforts, there may be some risk of subsidence in the future. In general we can expect up to 25% subsidence. If the patient develops symptomatic subsidence with secondary impingement, patient may require further nonoperative treatment modalities for pain relief versus revision interposition arthroplasty - Trial of topical voltaren gel - Trial of topical lidocaine patch - Trial of cortisone injection to CMC joint has resulted in symptom improvement previously and patient desires repeat injection - Xrays reviewed with patient -We will plan to monitor the patient's left wrist and thumb pain, this may require also a future trial of cortisone injection or other treatment the patient would like to continue with observation and topical Voltaren gel at this time as she reports it is not that bad - Follow-up 3 months for reevaluation versus as needed INJECTION ADMINISTERED: - Patient was given an injection of the right thumb CMC joint and R CTS with: 0.5 cc Kenalog (40 mg/ 1 cc concentration) + 0.5 cc 1% Lidocaine plain without epinephrine at each location - This is the patient's second injection - Patient was counseled that there may be some swelling, inflammation, and mild pain in the area of injection for the first few days following treatment, which may be controlled with anti-inflammatory pain medication as needed. Patient was counseled that it may take time to note full resolution of pain and symptoms following the injection, and occasionally a series of injections is necessary for full or lasting relief of pain and symptoms. Patient was counseled that some individuals may experience skin hypopigmentation changes or fat atrophy in the area of steroid application following injection. Patient was counseled that if they are diabetic, there may be temporary changes in their blood sugar levels which may require more frequent blood sugar changes or temporary adjustment in their insulin coverage. - Patient was instructed to notify a physician if they note any concerning signs of infection including but not limited to fever, warmth, erythema, or ascending cellulitis in the area of steroid injection. Author Juhi Pretty [facility] HospitalAuthoredOctober 2024 1:00pmShe continues to have pain secondary to arthritis. We discussed continuing to treat this conservatively. We discussed an injection at this time and patient wishes to proceed. Under sterile condition, 1 cc of Kenalog/ 4 cc bupivacaine were injected into the right knee. Patient tolerated the procedure well. We discussed doing an injection every 3 months. She can follow up as needed for repeat injections. Future Tests Future scheduled test information is unavailable Pending Tests Test Name Ordered Date Scheduled Date XR knee RT 4V* April 12, 2025 1:55pm XR knee LT 2VOctober 8th, 2025 1:55pm Future Visits Future appointment information is unavailable Future Procedures Procedure Name Ordered Date Scheduled Date Triamcinolone Injection April 25, 2025 10:23 am Triamcinolone InjectionApril 25, 2025 10:23amTriamcinolone InjectionApril 25, 2025 10:23am Future Medications Future medication information is unavailable Patient Instructions Patient instructions are unavailable
--- OUTSIDE RECORDS SUMMARY | 2025-05-02 09:17 | XMS_ITS | Clinical Summary ---
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 Role Phone Melo Nieto MD Primary Care Provider [phone] Allergies Active AllergyReactionsCriticalityNoted DateCommentsHydrocodone-Acetaminophen PzqpWpw1105/07/2023TramadolGI ovehuvvnfnf85/02/1616UitvvccngArtaxhzTnk79/02/2023 Medications MedicationSigDispense QuantityRefillsLast FilledStart DateEnd DateStatus Cranberry 425 MG capsule Take 1 capsule by mouth in the morning.Active Acetaminophen (TYLENOL ARTHRITIS PAIN PO) Tylenol Arthritis PainActive albuterol HFA (Ventolin HFA) 90 mcg/act inhaler Inhale 1 puff every 4 (four) hours.Active Cnafsrzmiew-Cqucfpqig-Yudbtu (TRELEGY ELLIPTA IN) Inhale 1 puff 1 (one) time each day at the same time.Active potassium chloride (Klor-Con) 20 MEQ packet Take 10 mEq by mouth in the morning.Active pantoprazole (ProtoNix) 40 MG EC tablet Take 40 mg by mouth in the morning. Take before meals.Active hydroxychloroquine (Plaquenil) 200 MG tablet Take 200 mg by mouth in the morning and 200 mg before bedtime.Active furosemide (Lasix) 20 MG tablet Take 20 mg by mouth 1 (one) time each day at the same time.Active etodolac (Lodine) 500 MG tablet Take 500 mg by mouth every 12 (twelve) hours.Active Calcium Carbonate-Vit D-Min (Calcium 600+D3 Plus Minerals) 600-800 MG-UNIT chewable tablet Chew 1 tablet 1 (one) time each day at the same time.Active atorvastatin (Lipitor) 10 MG tablet Take 10 mg by mouth 1 (one) time each day at the same time.Active ipratropium (Atrovent) 0.03 % nasal spray Administer 2 sprays into each nostril in the morning and 2 sprays before bedtime.Active ibandronate (Boniva) 150 MG tablet Take 150 mg by mouth every 30 (thirty) days. Take in morning with full glass of water on an empty stomach. No food, drink, meds, or lying down for 60 minutes after.Active Ascorbic Acid (Vitamin C) 500 MG capsule Take 1 capsule by mouth in the morning.Active cyanocobalamin (Vitamin B-12) 1000 MCG tablet Take 1,000 mcg by mouth every other day.Active Active Problems ProblemNoted DateDiagnosed DateHallux valgus (acquired), left foot05/07/2023ain in limb05/07/20231438Egztotfdatqr30/02/2023Varicose veins of both legs with edema 05/07/20237845Oxxagueqqpli02/02/6277Qcqxigabmgc46/29/0829Vwqseg58/29/2010 Family History Medical HistoryRelationNameCommentsAsthmaFatherHeart failureFatherDiabetes Maternal GrandfatherCancerMaternal GrandmotherCancerMotherHeart failureMother DementiaOtherSpouseRelationNameStatusCommentsFatherDeceasedMaternal Grandfather Maternal GrandmotherMotherDeceasedOtherSpouseDeceased Social History Tobacco UseTypesPacks/DayYears UsedDateSmoking Tobacco: Every DayCigarettes Smokeless Tobacco: Never Tobacco Cessation:Ready to Q uit: No; Counseling Given: Not Answered Alcohol UseStandard Drinks/WeekCommentsNot Currently0 (1 standard drink = 0.6 oz pure alcohol)caffeine intake: 3-4 cups per day of coffeeAUDIT-CAnswerDate RecordedQ1: How often do you have a drink containing alcohol?Monthly or less 05/10/2023Q2: How many drinks containing alcohol do you have on a typical day when you are drinking?1 or Q3: How often do you have six or more drinks on one occasion?Ciqlpge9905/10/2023CommentsUnknownSex and Gender InformationValueDate RecordedSex Assigned at BirthNot on fileLegal SexFemale 09/17/2022 7:19 PM EDTGender IdentityNot on fileSexual OrientationNot on file Last Filed Vital Signs Vital SignReadingTime TakenCommentsBlood Vemhlbho416/6705/11/2023 10:48 AM EST Pulse--Temperature--Respiratory Rate--Oxygen Saturation--Inhaled Oxygen Concentration--Bnhbhn35.3 kg (177 lb)05/11/2023 10:48 AM IFVBdeydj421.3 cm (5' 3.5 )05/11/2023 10:48 AM ESTBody Mass Index30.8605/11/2023 10:48 AM EST Plan of Treatment Not on file Insurance Care Teams Team MemberRelationshipSpecialtyStart DateEnd Date Melo Nieto MD [address] [place] [address] [place] [address] [place] [address] PCP - GeneralFamily Nyhkjpct22/1/23
--- OUTSIDE RECORDS SUMMARY | 2025-05-02 09:17 | XMS_ITS | Clinical Summary ---
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
[2025-05-02 13:17] LABS: Folate 31.00 ng/mL (8.60-58.90)
[2025-05-02 13:47] LABS: Cholesterol 234 mg/dL (<=200); HDL Cholesterol 71 mg/dL (40-60); Thyroid Stimulating Hormone 3.149 uIU/mL (0.358-3.740); Triglycerides 84 mg/dL (<=150); VLDL CHOLESTEROL 16.8 mg/dL
[2025-05-03 07:08] LABS: Vitamin B12 929 pg/mL (232-1245)
== END 2025-05-02 09:04 | disposition home or self-care (01) ==
LOC: LAB 09:14
PROVIDERS: PCP Family Medicine; Visit Provider Family Medicine
DX: Z79.899 Other long term (current) drug therapy (principal); E78.5 Hyperlipidemia, unspecified; E53.8 Deficiency of other specified B group vitamins; R63.4 Abnormal weight loss
CPT/HCPCS: 36415; 80061; 82607; 82746; 84443

== ENCOUNTER 2025-05-02 09:17 | Outpatient (OUT) | payer MEDICARE, SELFPAY ==
[2025-05-02 11:31] LABS: Hematocrit 38.9 % (36.0-48.0); Hemoglobin 12.6 g/dL (12.0-16.0); Immature Granulocytes Abs Auto 0.03 10^3/uL (0.00-0.03); Immature Granulocytes Pct Auto 0.5 % (0.0-0.5); Lymphocytes Absolute Auto 1.2 10^3/uL (1.2-3.8); Mean Corpuscular HGB Conc 32.4 g/dL (29.9-35.2); Mean Corpuscular Hemoglobin 31.3 pg (26.7-34.0); Mean Corpuscular Volume 96.5 fL (81.0-99.0); Platelet Count 228 10^3/uL (150-450); Red Blood Count 4.03 10^6/uL (4.20-5.40); White Blood Count 6.1 10^3/uL (4.0-11.0)
[2025-05-02 12:10] LABS: Glucose Urine UA NEGATIVE (NEGATIVE)
[2025-05-02 13:09] LABS: Cast Seen? NONE SEEN #/LPF (NONE SEEN); Crystals Seen? None Seen #/HPF (None Seen)
[2025-05-02 13:56] LABS: Magnesium 2.2 mg/dL (1.8-2.4)
[2025-05-02 15:33] LABS: Alanine Aminotransferase 31 U/L (14-59); Albumin Globulin Ratio 1.2; Albumin Level 3.9 g/dL (3.4-5.0); Alkaline Phosphatase 36 U/L (46-116); Anion Gap 14.6; Aspartate Amino Transferase 21 U/L (15-37); Blood Urea Nitrogen 19.0 mg/dL (7.0-18.0); Calcium 8.9 mg/dL (8.5-10.1); Carbon Dioxide 25.6 mmol/L (21.0-32.0); Chloride 101 mmol/L (98-107); Estimated GFR (African America >60 (>=60 mL/min/1.73m^2); Estimated GFR (Non-African Ame >60 (>=60 mL/min/1.73m^2); Globulin 3.3 g/dL; Glucose 83 mg/dL (74-106); Potassium 4.2 mmol/L (3.5-5.1); Sodium 137 mmol/L (136-145); Total Protein 7.2 g/dL (6.4-8.2)
== END 2025-05-02 09:18 | disposition home or self-care (01) ==
LOC: LAB 09:22
PROVIDERS: PCP Family Medicine; Visit Provider Registered Nurse
DX: M35.1 Other overlap syndromes (principal); M15.0 Primary generalized (osteo)arthritis; Z79.899 Other long term (current) drug therapy; E78.5 Hyperlipidemia, unspecified; E53.8 Deficiency of other specified B group vitamins; R63.4 Abnormal weight loss
CPT/HCPCS: 36415; 80053; 80061; 81001; 82306; 82607; 82746; 83735; 84100; 84443; 85025; 85652; 86160; 86162